=== PATIENT | male | born 1960 | race Caucasian/White ===

== ENCOUNTER 2017-11-23 15:15 | Outpatient (RCR) | payer BC, SELFPAY ==
[2017-09-29 14:27] VITALS: BMI 32.5
[2017-11-23 08:26] VITALS: BP 156/76; BP 160/74
--- NOTE | 2017-11-23 08:27 | CR.ITP_ITS ---
Exercise - Initial Assessment - Stages of Change Stages of Change:: Action - Exercise Prescription Mode:: Treadmill, Rower, Airdyne, NuStep Angina with exercise?: Yes Target Heart Rate:: 121-129 - Hypertension Do any of the following apply?: Yes - Intervention Home Exercise/Activity Goal:: Moderate Exercise 30 min/day x 5 days/wk - Education Goals:: Warm-up, RPE REJI Scale, S/S, Safe Exercise, Self-Monitoring - Exercise Program Goals Exercise Program Goals: Aerobic Activity >30 min Exercise - 30-day Assessment - Visit Date of Eval: 11/23/17 Session #:: 7 - Stages of Change Stages of Change:: Action - Exercise Prescription Mode:: Treadmill, Rower, Airdyne, NuStep Frequency (x/week): 3 - Intensity limited by knee discomfort Duration:: 30 METs - Progression: 0.5-1 MET as tolerated: 4.7 Target Heart Rate:: 139-137 Max HR 80 - Hypertension Resting Blood Pressure:: 156/76 Peak Exercise Blood Pressure:: 160/74 Medication Changes:: No - Intervention Home Exercise/Activity Goal:: Moderate Exercise 30 min/day x 5 days/wk - Education Goals:: Warm-up, RPE REJI Scale, S/S, Safe Exercise, Self-Monitoring - Exercise Program Goals Exercise Program Goals: Aerobic Activity >30 min Exercise - Final/Discharge - Hypertension Do any of the following apply?: Yes Nutrition - Initial Assessment - Program Goals Nutrition Program Goals: LDL <70. Total Cholesterol <200. HDL >45. Triglycerides <150. HgbA1C <7%. BMI <25 - Stages of Change Stages of Change:: Action - Diabetes Diabetes:: No Non-Insulin Dependent?: Yes - Weight Management Weight Goal (kg):: 240 kg Body Fat %:: 32.5 Total Score:: 2 - Intervention Referral to dietitian:: Yes Referral to Diabetic Clinic:: Yes Will attend diet classes:: Yes - Education Gave educational materials for:: Signs & symptoms of hypoglycemia, Signs & symptoms of hyperglycemia, Relate diabetes to coronary artery disease, Healthy eating Nutrition - 30-Day Assessment - Program Goals Nutrition Program Goals: LDL <70. Total Cholesterol <200. HDL >45. Triglycerides <150. HgbA1C <7%. BMI <25 - Visit Date of Eval: 11/23/17 - Stages of Change Stages of Change:: Action - Lipids Has the patient seen the dietitian?: No - Diabetes Diabetes:: No Insulin: No Non-Insulin Dependent?: Yes - Weight Management Weight:: 119.748 kg - down 3 pounds Weight Goal (kg):: 240 kg - Intervention Referral to dietitian:: Yes Referral to Diabetic Clinic:: Yes Will attend diet classes:: Yes - Education Attended class for:: Signs & symptoms of hypoglycemia, Signs & symptoms of hyperglycemia, Relate diabetes to coronary artery disease, Healthy eating Nutrition - 60-Day Assessment - Program Goals Nutrition Program Goals: LDL <70. Total Cholesterol <200. HDL >45. Triglycerides <150. HgbA1C <7%. BMI <25 - Diabetes Diabetes:: No Insulin: No Non-Insulin Dependent?: Yes - Weight Management Weight Goal (kg):: 240 kg - Intervention Referral to dietitian:: Yes Referral to Diabetic Clinic:: Yes Will attend diet classes:: Yes - Education Attended class for:: Signs & symptoms of hypoglycemia, Signs & symptoms of hyperglycemia, Relate diabetes to coronary artery disease, Healthy eating Nutrition - 90-Day Assessment - Program Goals Nutrition Program Goals: LDL <70. Total Cholesterol <200. HDL >45. Triglycerides <150. HgbA1C <7%. BMI <25 - Diabetes Diabetes:: No Insulin: No Non-Insulin Dependent?: Yes - Weight Management Weight Goal (kg):: 240 kg - Intervention Referral to dietitian:: Yes Referral to Diabetic Clinic:: Yes Will attend diet classes:: Yes - Education Attended class for:: Signs & symptoms of hypoglycemia, Signs & symptoms of hyperglycemia, Relate diabetes to coronary artery disease, Healthy eating Nutrition - Final Assessment - Program Goals Nutrition Program Goals: LDL <70. Total Cholesterol <200. HDL >45. Triglycerides <150. HgbA1C <7%. BMI <25 - Diabetes Diabetes:: No Insulin: No Non-Insulin Dependent?: Yes - Weight Management Weight Goal (kg):: 240 kg Body Fat %:: 32.5 Total Score:: 2 - Intervention Referral to dietitian:: Yes Referral to Diabetic Clinic:: Yes Will attend diet classes:: Yes Tobacco - Initial Assessment - Program Goals Tobacco Program Goals: Complete smoking cessation. Attend education classes. Improve Knowledge Test score - Stage of Change Stages of Change:: Action - Learning Barriers Learning Barriers: Vision, Cognitive Total Score:: 8 - Family Support Do you have family support?: No - Tobacco Use Tobacco Use: Cigarettes How long ago did you quit using tobacco products?: Less than 6 months ago How many cigarettes do you smoke per day?: 2 - Quit at time of NSTEMI Years Smokin Do you use smokeless tobacco?: No - Intervention Smoking Cessation Referral:: Yes Individual Education/Counseling:: No Education Schedule Given:: Yes - Education Gave educational material for:: Tobacco triggers, Coronary artery disease, Risk factors, Sexuality, Medical compliance, Cardiac A&P, Angina signs & symptoms Tobacco - 30-Day Assessment - Program Goals Tobacco Program Goals: Complete smoking cessation. Attend education classes. Improve Knowledge Test score - Stage of Change Stages of Change:: Action - Learning Barriers Learning Barriers: Participates in education - Family Support Do you have family support?: No - Tobacco Use Tobacco Use: Cigarettes How many cigarettes do you smoke per day?: 2 - Quit at time of NSTEMI Do you use smokeless tobacco?: No - Intervention Smoking Cessation Referral:: Yes - Could use emotional support to maintain smoking cessation/chewing Individual Education/Counseling:: No Education Schedule Given:: Yes - Education Attended class for:: Tobacco triggers, Coronary artery disease, Risk factors, Sexuality, Medical compliance, Cardiac A&P, Angina signs & symptoms Tobacco - 60-Day Assessment - Program Goals Tobacco Program Goals: Complete smoking cessation. Attend education classes. Improve Knowledge Test score - Family Support Do you have family support?: No - Tobacco Use How many cigarettes do you smoke per day?: 2 - Quit at time of NSTEMI Do you use smokeless tobacco?: No - Intervention Smoking Cessation Referral:: Yes Individual Education/Counseling:: No Education Schedule Given:: Yes - Education Attended class for:: Tobacco triggers, Coronary artery disease, Risk factors, Sexuality, Medical compliance, Cardiac A&P, Angina signs & symptoms Tobacco - 90-Day Assessment - Program Goals Tobacco Program Goals: Complete smoking cessation. Attend education classes. Improve Knowledge Test score - Family Support Do you have family support?: No - Tobacco Use How many cigarettes do you smoke per day?: 2 - Quit at time of NSTEMI Do you use smokeless tobacco?: No - Intervention Smoking Cessation Referral:: Yes Individual Education/Counseling:: No Education Schedule Given:: Yes - Education Attended class for:: Tobacco triggers, Coronary artery disease, Risk factors, Sexuality, Medical compliance, Cardiac A&P, Angina signs & symptoms Tobacco - Final Assessment - Program Goals Tobacco Program Goals: Complete smoking cessation. Attend education classes. Improve Knowledge Test score - Learning Barriers Cardiac Knowledge Test Score:: 8 - Family Support Do you have family support?: No - Tobacco Use How many cigarettes do you smoke per day?: 2 - Quit at time of NSTEMI Do you use smokeless tobacco?: No - Intervention Smoking Cessation Referral:: Yes Individual Education/Counseling:: No Education Schedule Given:: Yes Psychosocial - Initial Assess - Target Goals Target Goals: Assess presence or absence of depression. Using a valid screening tool, maximizes coping skills. Positive support system - Stages of Change Stages of Change:: Action - Psychosocial Test Tool Used:: HANDS Depression Questionnaire Self-Efficacy Score:: 5 - Intervention PS - Interventions: Yes Attend Stress Management Classes, No Referral to Mental Health, No Referral to [facility] Case Management, No Referral to Physician, No Uses Stress Management Skills - Education Gave educational materials for:: Coping techniques, Signs & symptoms of depression, Stress management, Relaxation techniques - Patient/Program Goal Preventative Medication(s):: Aspirin, BRODIE inhibitor, Clopidogrel, Beta hardik, Statin/lipid - Assistive Devices Assistive Devices:: None Fall Risk Assessed:: Yes Psychosocial - 30-Day Assess - Target Goals Target Goals: Assess presence or absence of depression. Using a valid screening tool, maximizes coping skills. Positive support system - Stages of Change Stages of Change:: Action - Psychosocial Test Tool Used:: HANDS Depression Questionnaire Self-Efficacy Score:: 5 - Intervention PS - Interventions: Yes Attend Stress Management Classes, No Referral to Mental Health, No Referral to [facility] Case Management, No Referral to Physician, No Uses Stress Management Skills - Education Attended classes for:: Coping techniques, Signs & symptoms of depression, Stress management, Relaxation techniques - Patient/Program Goal Preventative Medication(s):: Aspirin, BRODIE inhibitor, Clopidogrel, Beta hardik, Statin/lipid - Assistive Devices Assistive Devices:: None Fall Risk Assessed:: Yes Psychosocial - 60-Day Assess - Target Goals Target Goals: Assess presence or absence of depression. Using a valid screening tool, maximizes coping skills. Positive support system - Psychosocial Test Tool Used:: HANDS Depression Questionnaire Self-Efficacy Score:: 5 - Education Attended classes for:: Coping techniques, Signs & symptoms of depression, Stress management, Relaxation techniques - Patient/Program Goal Preventative Medication(s):: Aspirin, BRODIE inhibitor, Clopidogrel, Beta hardik, Statin/lipid - Assistive Devices Assistive Devices:: None Fall Risk Assessed:: Yes Psychosocial - 90-Day Assess - Target Goals Target Goals: Assess presence or absence of depression. Using a valid screening tool, maximizes coping skills. Positive support system - Psychosocial Test Tool Used:: HANDS Depression Questionnaire Self-Efficacy Score:: 5 - Education Attended classes for:: Coping techniques, Signs & symptoms of depression, Stress management, Relaxation techniques - Patient/Program Goal Preventative Medication(s):: Aspirin, BRODIE inhibitor, Clopidogrel, Beta hardik, Statin/lipid - Assistive Devices Assistive Devices:: None Fall Risk Assessed:: Yes Psychosocial - Final Assessmen - Target Goals Target Goals: Assess presence or absence of depression. Using a valid screening tool, maximizes coping skills. Positive support system - Psychosocial Test Tool Used:: HANDS Depression Questionnaire Self-Efficacy Score:: 5 - Patient/Program Goal Preventative Medication(s):: Aspirin, BRODIE inhibitor, Clopidogrel, Beta hardik, Statin/lipid - Assistive Devices Assistive Devices:: None Fall Risk Assessed:: Yes Patient Health Questionnaire 30-Day Re-eval Assessment 1. Little interest or pleasure in doing things: Several days 2. Feeling down, depressed, or hopeless: Several days 3. Trouble falling or staying asleep, or sleeping too much: More than half the days 4. Feeling tired or having little energy: Several days 5. Poor appetite or overeating: Several days 6. Feeling bad about yourself -- or that you are a failure or have let yourself or your family down: Several days 7. Trouble concentrating on things, such as reading the newspaper or watching television: Not at all 8. Moving or speaking so slowly that other people could have noticed. Or the opposite - being so fidgety or restless that you have been moving around a lot more than usual: Not at all 9. Thoughts that you would be better off , or of hurting yourself in some way: Not at all Total Score: 7 Self-Efficacy 30-Day Re-eval Assessment We would like to know how confident you are in doing certain activities. Please select your confidence level for:: Select your confidence level for the following using the scale 1-10 where 1 is not at all confident and 10 is totally confident. Your score is the average of all 6 responses. Fatigue: How confident are you that you can keep the fatigue caused by your disease from interfering with the things you want to do? Select Number: 5 Physical Discomfort or Pain: How confident are you that you can keep the physical discomfort or pain of your disease from interfering with the things you want to do? Select Number: 5 Emotional Distress: How confident are you that you can keep the emotional distress caused by your disease from interfering with the things you want to do? Select Number: 5 Other Symptoms or Health Problems: How confident are you that you can keep other symptoms or health problems from interfering with the things you want to do? Select Number: 6 Different Tasks and Activities: How confident are you that you can do the different tasks and activities needed to manage your health condition so as to reduce your need to see a doctor? Select Number: 8 Medication: How confident are you that you can do things other than just taking medication to reduce how much your illness affects your everyday life? Select Number: 8 Total Score:: 6
== END 2017-11-23 23:59 ==
LOC: CR 15:15
PROVIDERS: Family Provider Family Medicine; PCP Family Medicine; Visit Provider Internal Medicine Cardiovascular Disease
DX: Z95.5 Presence of coronary angioplasty implant and graft (principal); I25.118 Atherosclerotic heart disease of native coronary artery with other forms of angina pectoris; I47.2 Ventricular tachycardia; R07.9 Chest pain, unspecified
CPT/HCPCS: 93798

== ENCOUNTER 2017-12-05 15:15 | Outpatient (RCR) | payer BC, SELFPAY ==
[2017-09-29 14:27] VITALS: BMI 32.5
[2017-09-30 10:00] VITALS: BP 159/78
[2017-11-01 11:27] VITALS: BP 138/82; BMI 33.0
[2017-11-24 01:03] VITALS: BP 156/76; BP 160/74
== END 2017-12-21 23:59 ==
LOC: CR 15:15
PROVIDERS: Family Provider Family Medicine; PCP Family Medicine; Visit Provider Internal Medicine Cardiovascular Disease
DX: Z95.5 Presence of coronary angioplasty implant and graft (principal); I25.118 Atherosclerotic heart disease of native coronary artery with other forms of angina pectoris; I47.2 Ventricular tachycardia; R07.9 Chest pain, unspecified
CPT/HCPCS: 93798

== ENCOUNTER → 2018-02-09 14:49 | Outpatient (CLI) | payer BC, SELFPAY ==
[2017-09-29 14:27] VITALS: BMI 32.5
--- NOTE | 2018-02-09 14:50 | ECHOCS_ITS ---
Reason For Study: CAD/ASHD Procedure This was a 2D Doppler, Color Flow transthoracic echocardiogram. Exam performed in department. Left Ventricle Moderately dilated left ventricle. The estimated ejection fraction is 45 %. Septal motion consistent with IVCD. Normal diastology for age. There are regional wall motion abnormalities as specified. Lateral-Basal: Mildly hypokinetic. Posterior-Basal: Mildly hypokinetic. Right Ventricle Moderately dilated right ventricle. Mild global right ventricular systolic dysfunction. Atria The left atrium is moderately enlarged. Normal right atrium. Mitral Valve The mitral valve is structurally normal. No prolapse or stenosis seen. Tricuspid Valve Normal tricuspid valve. Trivial tricuspid valve insufficiency. Right ventricular systolic pressure estimated to be 19 mmHg. Aortic Valve Normal aortic valve. Trisinus/trileaflet aortic valve. Pulmonic Valve The pulmonic valve is not well visualized. Great Vessels Normal aortic root. Normal arch. Normal inferior vena cava. Inferior vena cava collapse with sniff. Pericardium/Pleural No pericardial effusion. Medication 22 gauge I.V. with prn adaptor inserted into right arm. Diluted definity 3ml given slow IV push to enhance endocardial definition. MMode/2D Measurements & Calculations LVIDd: 6.3 cm IVSd: 1.3 cm Ao root diam: 4.0 cm LVIDs: 5.1 cm LVPWd: 1.2 cm RVDd: 4.6 cm FS: 19.3 % LAV(MOD-bp): 75.1 ml LA A4 area: 21.7 cm2 RA A4 area: 14.6 cm2 LAV(MOD-bp) Indexed: 30.1 ml/m2 LAV(MOD-sp2): 81.4 ml LAV(MOD-sp4): 66.6 ml Time Measurements MV dec time: 0.25 sec Doppler Measurements & Calculations MV E max angelo: 71.2 cm/sec Lat Peak E' Angelo: 10.7 cm/sec Med Peak E' Angelo: 5.4 cm/sec MV A max angelo: 64.5 cm/sec E/E' lat: 6.7 E/E' med: 13.1 MV E/A: 1.1 Ao V2 max: 154.0 cm/sec LV V1 max: 95.4 cm/sec PA V2 max: 111.9 cm/sec Ao max P.5 mmHg LV V1 max P.6 mmHg TR max angelo: 185.8 cm/sec TR max P.8 mmHg Interpretation Summary Moderately dilated left ventricle. There are regional wall motion abnormalities as specified. The estimated ejection fraction is 45 %. Normal diastology for age. Moderately dilated right ventricle. The left atrium is moderately enlarged. Trivial tricuspid valve insufficiency. Right ventricular systolic pressure estimated to be 19 mmHg. Compared to echo report dated 09/14/2017, no appreciable changes noted. The study was technically difficult. Contrast injection was performed. Ordering Physician: Reagan Mendoza/Rom Vora Referring Physician: MILE OVALLE Performed By: Stefania Lisa RDCS
== END ==
LOC: CVS 14:49
PROVIDERS: Family Provider Family Medicine; PCP Family Medicine; Visit Provider Nurse Practitioner Family
DX: I25.118 Atherosclerotic heart disease of native coronary artery with other forms of angina pectoris (principal)
CPT/HCPCS: 93306; Q9957; A4216; C8929

== ENCOUNTER → 2018-07-28 15:57 | Outpatient (CLI) | payer BC, SELFPAY ==
[2017-09-29 14:27] VITALS: BMI 32.5
[2018-07-28 17:41] LABS: Absolute Neutrophil Count 5.5 X10^3/uL (2.0-7.7); Basophil# 0.03 X10^3/uL; Basophil% 0.3 % (0-1); Eosinophil# 0.25 X10^3/uL; Eosinophils% 2.8 % (0-5); Hematocrit 42.5 % (40-54); Hemoglobin 14.4 g/dl (13.0-16.5); Lymphocyte % 24.6 % (19-41); Mean Corp Hgb Conc 33.9 g/gl (32-36); Mean Corpuscular Hgb 31.9 pg (27.0-32.0); Mean Corpuscular Volume 94.2 fL (80-94); Mean Platelet Vol. 11.7 fl (6.2-12.0); Monocyte# 0.94 X10^3/uL; Monocyte% 10.5 % (0-10); Neutrophil # 5.52 X10^3/uL (2.7-7.7); Neutrophil % 61.6 % (47-70); Platelet Count 200 K/mm3 (150-450); RBC Distribution Width CV 13.5 % (11.6-14.6); RBC Distribution Width SD 44.9 fl (35.1-43.9); Red Blood Count 4.51 M/mm3 (4.6-6.2)
[2018-07-28 17:49] LABS: POSITIVE COUNT NO; POSITIVE DIFFERENTIAL NO; POSITIVE MORPHOLOGY NO
[2018-07-28 18:03] LABS: ALB/GLOB Ratio 1.1 RATIO (0.9-2.4); AST(SGOT) 10 U/L (15-37); Alanine Aminotransfer ALT/SGPT 26 U/L (16-61); Albumin, Serum 3.7 g/dL (3.2-5.0); Alkaline Phosphatase 112 U/L (45-117); Anion Gap 8 (5-15); BUN 17 mg/dL (7-18); BUN/Creat Ratio 22.6 RATIO (10-20); CPK Total, Creatine Kinase 142 U/L (39-308); Calcium,Total 8.6 mg/dL (8.5-10.1); Chloride 106 mmol/L (98-107); Cholesterol 113 mg/dL (200); Creatinine, Serum 0.75 mg/dL (0.70-1.30); EST Glomerular Filtration Rate 113 mL/min (>60); Est Glom Filt Rate - Afr Amer 137 mL/min (>60); Ferritin 144 ng/mL (26-388); Globulin 3.5 g/dL (2.2-4.2); Glucose 86 mg/dL (74-106); High Density Lipoprotein 35 mg/dL; Potassium 3.8 mmol/L (3.5-5.1); Protein, Total 7.2 g/dL (6.4-8.2); Sodium Level 141 mmol/L (136-145); Thyroid Stim Hormone (TSH) 2.73 uIU/mL (0.358-3.74); Triglycerides 108 mg/dL; Very Low Density Lipoprotein 22 mg/dL (5-40)
[2018-07-28 18:49] LABS: Hemoglobin A1c 6.4 % (4.2-6.3)
== END ==
PROVIDERS: Family Provider Family Medicine; PCP Family Medicine; Visit Provider Family Medicine
DX: I10 Essential (primary) hypertension (principal); R25.2 Cramp and spasm; R73.02 Impaired glucose tolerance (oral); E78.5 Hyperlipidemia, unspecified
CPT/HCPCS: 36415; 80053; 80061; 81001; 82550; 82728; 83036; 83735; 84443; 85025

== ENCOUNTER 2018-09-17 07:00 | Observation (INO) | payer BC, SELFPAY ==
[2017-09-29 14:27] VITALS: BMI 32.5
[2018-09-17] VITALS (12 sets, daily range): BP systolic 126–161; BP diastolic 75–92; PULSE 56–90; RESP 13–22; TEMP 36.4–36.9; O2SAT 96–98; BMI 30.8; BMI 30.1
--- NOTE | 2018-09-17 07:14 | EKG12_ITS ---
Test Reason : CHEST PAIN Blood Pressure : / mmHG Vent. Rate : 090 BPM Atrial Rate : 090 BPM P-R Int : 250 ms QRS Dur : 138 ms QT Int : 362 ms P-R-T Axes : 059 -61 093 degrees QTc Int : 442 ms Sinus rhythm with 1st degree A-V block with frequent Premature ventricular complexes Left axis deviation Left ventricular hypertrophy with QRS widening and repolarization abnormality Abnormal ECG Confirmed by NAKIA MOREAU, LAURE ([id number]), features editor PAVEL GUO ([id number]) on 09/19/2018 4:17:36 PM Referred By: EMILY Confirmed By:LAURE YEE MD
--- NOTE | 2018-09-17 07:22 | RAD_ITS ---
STUDY: X-RAY CHEST REASON FOR EXAM: Male, 58 years old. Chest pain. TECHNIQUE: 2 AP portable views of the chest were obtained. COMPARISON: 09/13/2017. FINDINGS: There is hyperinflation of the lungs consistent with chronic obstructive lung disease (COPD). There is no demonstrated pleural abnormality. Normal size heart. Normal mediastinum and barron. Normal visualized pulmonary arteries. Normal visualized aortic arch and descending thoracic aorta. There are diffuse degenerative changes of the visualized thoracic spine. Normal visualized ribs, clavicles, and shoulders. There is no demonstrated abnormality of the visualized soft tissue structures of the upper abdomen. RAD/Chest 1 View (Portable) IMPRESSION: Suggestion of COPD. No evidence for acute cardiopulmonary pathology. Electronically Signed: Laron Orosco MD at 7:37 EST , Service support ,
[2018-09-17 07:33] LABS: Basophil# 0.03 X10^3/uL; Basophil% 0.3 % (0-1); Eosinophil# 0.27 X10^3/uL; Eosinophils% 3.1 % (0-5); Hematocrit 44.1 % (40-54); Hemoglobin 14.7 g/dl (13.0-16.5); Lymphocyte % 19.2 % (19-41); Mean Corp Hgb Conc 33.3 g/gl (32-36); Mean Corpuscular Hgb 31.2 pg (27.0-32.0); Mean Corpuscular Volume 93.6 fL (80-94); Mean Platelet Vol. 11.1 fl (6.2-12.0); Monocyte# 0.88 X10^3/uL; Monocyte% 9.9 % (0-10); Neutrophil # 5.96 X10^3/uL (2.7-7.7); Neutrophil % 67.4 % (47-70); Platelet Count 190 K/mm3 (150-450); RBC Distribution Width CV 13.3 % (11.6-14.6); RBC Distribution Width SD 45.9 fl (35.1-43.9); Red Blood Count 4.71 M/mm3 (4.6-6.2); White Blood Count 8.9 K/mm3 (4.4-11.0)
[2018-09-17 07:35] LABS: POSITIVE COUNT NO; POSITIVE DIFFERENTIAL NO; POSITIVE MORPHOLOGY NO
[2018-09-17] MEDS: Aspirin 81 MG TAB.CHEW 324 MG PO (07:49)
[2018-09-17 07:53] LABS: Anion Gap 8 (5-15); BUN 14 mg/dL (7-18); BUN/Creat Ratio 19.3 RATIO (10-20); Calcium,Total 8.4 mg/dL (8.5-10.1); Chloride 110 mmol/L (98-107); Creatinine, Serum 0.73 mg/dL (0.70-1.30); EST Glomerular Filtration Rate 117 mL/min (>60); Est Glom Filt Rate - Afr Amer 142 mL/min (>60); Estimated Creatinine Clearance 137.31 ml/min; Glucose 161 mg/dL (74-106); Magnesium 1.9 mg/dL (1.6-2.6); Potassium 3.8 mmol/L (3.5-5.1); Sodium Level 141 mmol/L (136-145)
--- NOTE | 2018-09-17 08:11 | EKG12_ITS ---
Test Reason : CHEST PAIN Blood Pressure : / mmHG Vent. Rate : 081 BPM Atrial Rate : 125 BPM P-R Int : 000 ms QRS Dur : 142 ms QT Int : 392 ms P-R-T Axes : 000 -59 096 degrees QTc Int : 455 ms Atrial fibrillation with premature ventricular or aberrantly conducted complexes Left axis deviation Left ventricular hypertrophy with QRS widening T wave abnormality, consider lateral ischemia Abnormal ECG Confirmed by NAKIA MOREAU, LAURE ([id number]), science editor PAVEL GUO ([id number]) on 09/19/2018 4:17:52 PM Referred By: EMILY Confirmed By:LAURE YEE MD
--- NOTE | 2018-09-17 08:21 | NURSING ---
DR CHAPA FOR DR DIAZ
--- NOTE | 2018-09-17 08:24 | ECHOCS_ITS ---
Reason For Study: Chest Pain Procedure This was a 2D Doppler, Color Flow transthoracic echocardiogram. The study was technically difficult. Contrast injection was performed. Exam performed portable in patient room. Left Ventricle Normal LV size. The estimated ejection fraction is 45 %. No evidence for diastolic dysfunction. There is mild global hypokinesis of the left ventricle. [place] : Hypokinetic. Right Ventricle Normal RV size. Normal systolic function. Atria The left atrium is moderately enlarged. Normal right atrium. Mitral Valve Normal mitral valve. Tricuspid Valve Normal tricuspid valve. Aortic Valve The aortic valve is not well visualized. Pulmonic Valve Normal pulmonic valve. Great Vessels Normal aortic root. Pericardium/Pleural No pericardial effusion. Medication Diluted definity 6ml given slow IV push to enhance endocardial definition. MMode/2D Measurements & Calculations LVIDd: 5.7 cm IVSd: 1.4 cm Ao root diam: 3.7 cm LVIDs: 5.3 cm LVPWd: 1.1 cm LA dimension: 4.7 cm FS: 8.3 % LAV(MOD-bp): 114.9 ml LVAd ap4: 55.3 cm2 SV(MOD-sp4): 93.7 ml LAV(MOD-bp) Indexed: 46.4 ml/m2 EDV(MOD-sp4): 249.0 ml LAV(MOD-sp2): 90.2 ml EDV(sp4-el): 260.8 ml LAV(MOD-sp4): 133.8 ml LVAs ap4: 39.8 cm2 ESV(MOD-sp4): 155.2 ml ESV(sp4-el): 161.6 ml EF(MOD-sp4): 37.6 % EF(sp4-el): 38.0 % SV(sp4-el): 99.2 ml LA A4 area: 33.3 cm2 RA A4 area: 17.3 cm2 Time Measurements MV dec time: 0.28 sec Doppler Measurements & Calculations MV E max angelo: 69.4 cm/sec Lat Peak E' Angelo: 6.3 cm/sec Med Peak E' Angelo: 4.8 cm/sec MV A max angelo: 50.1 cm/sec E/E' lat: 11.0 E/E' med: 14.3 MV E/A: 1.4 MV V2 max: 88.6 cm/sec Ao V2 max: 136.8 cm/sec LV V1 max: 104.2 cm/sec MV max P.1 mmHg Ao max P.5 mmHg LV V1 max P.3 mmHg MV V2 mean: 55.1 cm/sec Ao V2 mean: 93.3 cm/sec LV V1 mean P.8 mmHg MV mean P.4 mmHg Ao mean P.9 mmHg LV V1 mean: 59.6 cm/sec MV V2 VTI: 25.8 cm Ao V2 VTI: 27.2 cm LV V1 VTI: 20.7 cm PA V2 max: 106.9 cm/sec Interpretation Summary Normal LV size. The estimated ejection fraction is 45 %. No evidence for diastolic dysfunction. The study was technically limited. The study was technically difficult. Ordering Physician: Rangel Snider Referring Physician: Reagan Soto Performed By: Ugo Parker RCS
--- NOTE | 2018-09-17 08:38 | ED.VISSUMM ---
- ER Visit Summary Date of Service: 09/17/18 Chief Complaint: Chest pain History of Present Illness: The patient is a 58 M who presents with chest pain. It began about 2 hours ago. He states that when he woke up he felt jittery and had chest tightness and became nauseated and diaphoretic. He had palpitations and heart racing. He states that this feels similar to when he had his heart attack 1 year ago. Physical Examination: Afebrile blood pressure 161/85 Moist mucous membranes Heart regular rate and rhythm Lungs clear Abdomen soft nontender Extremities nontender Alert Test Results: EKG shows sinus rhythm at a rate of 90. There is significant ectopy with multiple PVCs. Repeat EKG shows atrial flutter at a rate of 81 there are T wave inversions in 1 and aVL. Labs are unremarkable normal magnesium normal troponin. Chest x-ray shows findings suggestive of COPD no acute findings. Emergency Department Course and Treatment: Patient was given aspirin. His pain is actually resolved before presentation here. He has not had recurrence of pain. However given his history he does need serial enzymes repeat EKGs likely cardiology consultation. He was given Lovenox for new atrial flutter. He was discussed with the hospitalist and admitted. Treatment Plan: [] Disposition: Admit Impression: Chest pain Atrial flutter This note was generated with [email or web address] dictation software. It may contain incorrect words, spelling, and punctuation that were not noted in review of the chart prior to signing ED Disposition - Plan for ED Patient: Chief Complaint: Chest Pain Referrals: NOT,DEFINED [Primary Care Provider] -
--- NOTE | 2018-09-17 08:40 | NURSING ---
PCU CP, A[facility] FLUTTER KITJ[facility]
[2018-09-17 08:56] LABS: D-Dimer Quantitative (DVT/PE) 1.42 FEU/ug/m (0.27-0.49); Thyroid Stim Hormone (TSH) 2.15 uIU/mL (0.358-3.74)
[2018-09-17] MEDS: Enoxaparin 120 MG/0.8 ML Syringe SC ×2 (09:07→21:30)
--- NOTE | 2018-09-17 09:08 | PCM.HP.STD ---
Problem List (1) Shortness of breath Status: Chronic (2) Bradycardia Status: Chronic (3) H/O lumbar discectomy Status: Chronic (4) History of cystoscopy Status: Chronic (5) Tobacco abuse Status: Chronic (6) Bladder cancer Status: Chronic (7) History of coronary artery stent placement Status: Chronic Comment: BERT to LCX 08/2017; staged complex PCI with BERT to PDA and RCA 09/2017; (8) Atherosclerotic heart disease of [place] coronary artery with other forms of angina pectoris Status: Chronic Comment: BERT to LCX 08/2017; staged complex PCI with BERT to PDA and RCA 09/2017; (9) Sustained ventricular tachycardia Status: Acute Comment: S/P cardioversion 08/2017 in ED; (10) Unstable angina Status: Acute (11) Chest pain Status: Acute Qualifiers: Chest pain type: chest pain due to myocardial ischemia Ischemic chest pain type: unstable angina pectoris Qualified Code(s): I20.0 - Unstable angina History of Present Illness Date of Admission: 09/17/18 Chief Complaint: Chest discomfort The patient is a 58 year old M with past medical history significant for CAD with previous coronary artery disease status post stenting to his mid left circumflex in August 2017 and a staged PCI to his RCA and PDA in September 2017, history of wide complex tachycardia who presented with chest pain as well as palpitations. Patient symptoms started on the morning of his admission. Chest pain was described as discomfort located in the mid sternal region. He also did experience palpitations checked his pulse which is greater than 190. Patient also did complain of shortness of breath as well as breaking out into cold sweat. Patient states his presentation was similar to when he had his heart attack almost a year ago subsequently presented to the emergency department. EKG demonstrated sinus rhythm with multiple PVCs. Initial set of cardiac enzymes came back negative his d-dimer was elevated CTA of the chest ordered prior to patient be admitted to a monitored Past Medical History Past Medical History (Chronic Problems): Chronic Problems (Last Reviewed 09/17/18 @ 09:31 by Rangel Snider MD) Shortness of breath (Chronic) Bradycardia (Chronic) H/O lumbar discectomy (Chronic) History of cystoscopy (Chronic) Tobacco abuse (Chronic) Bladder cancer (Chronic) History of coronary artery stent placement (Chronic) BERT to LCX 08/2017; staged complex PCI with BERT to PDA and RCA 09/2017; Atherosclerotic heart disease of [place] coronary artery with other forms of angina pectoris (Chronic) BERT to LCX 08/2017; staged complex PCI with BERT to PDA and RCA 09/2017; Medical History: Medical History (Last Reviewed 09/17/18 @ 09:31 by Rangel Snider MD) Shortness of breath (Chronic) R06.02 Bradycardia (Chronic) R00.1 Tobacco abuse (Chronic) Z72.0 Bladder cancer (Chronic) C67.9 Atherosclerotic heart disease of [place] coronary artery with other forms of angina pectoris (Chronic) I25.118 BERT to LCX 08/2017; staged complex PCI with BERT to PDA and RCA 09/2017; Sustained ventricular tachycardia (Acute) I47.2 S/P cardioversion 08/2017 in ED; Unstable angina (Acute) Chest pain (Acute) R07.9 NSTEMI (non-ST elevated myocardial infarction) I21.4 Allergies No Known Allergies Allergy (Verified 09/17/18 07:07) Home Medications: Ambulatory Orders Medication Instructions Recorded Aspirin E.C. [Ecotrin] 81 mg PO DAILY@0800 tab 09/15/17 carvedilol 6.25 mg tablet 6.25 mg PO BID #60 tab 08/28/18 clopidogrel 75 mg tablet 75 mg PO DAILY #30 tab 08/28/18 lisinopril 40 mg tablet 40 mg PO DAILY #90 tab 09/12/18 Atorvastatin Calcium [Lipitor] 80 mg PO QHS 09/17/18 Surgical History: Surgical History (Last Reviewed 09/17/18 @ 09:31 by Rangel Snider MD) H/O lumbar discectomy (Chronic) Z98.890 History of cystoscopy (Chronic) Z98.890 History of coronary artery stent placement (Chronic) Z95.5 BERT to LCX 08/2017; staged complex PCI with BERT to PDA and RCA 09/2017; Surgical History: - - Cystoscopy and treatment for bladder cancer, lumbar discectomy Smoking Status: Former smoker - *Family History Maternal Family History: Family History (Last Reviewed 09/17/18 @ 09:31 by Rangel Snider MD) Mother CVA (cerebral vascular accident) Father Diabetes Heart disease History Items: Stroke Paternal Family History: Family History (Last Reviewed 09/17/18 @ 09:31 by Rangel Snider MD) Mother CVA (cerebral vascular accident) Father Diabetes Heart disease History Items: Diabetes, Heart Disease Review of Systems Constitutional: Denies: Anorexia, Chills, Fever, Night Sweats, Weight Change HEENT: Denies: Head Aches, Sinus Congestion, Sinus Drainage Cardiovascular: Reports: Chest Pain Respiratory: Reports: Shortness of Breath. Denies: Shortness of breath at rest, Shortness of breath upon exertion, Sputum production Gastrointestinal: Denies: Abdominal Pain, Hematemesis, Hematochezia, Nausea, Melena, Vomiting Genitourinary: Denies: Dysuria, Frequency, Hematuria, Urgency Musculoskeletal: Denies: Joint Pain, Joint Tenderness Skin: Denies: Rash Neurological: Denies: Focal weakness, Numbness, Tingling Psychiatric: Denies: Homicidal Ideations, Suicidal Ideations Hematologic/ Lymphatic: Denies: Easy Bruising, Easy Bleeding VTE Information - Inpt Only VTE Present on Admission: No VTE Mechan Device Prophylaxis: Knee High SUDHEER Hose VTE Pharm Prophylaxis ordered?: Yes Objective: GENERAL: cooperative HEENT: Atraumatic; moist oral mucosa EYES; Anicteric, Normal Conjunctiva NECK; supple, normal thyroid, no distended JVD. RESPIRATORY: Diminished to auscultation bilaterally, CARDIOVASCULAR: Regular S1 S2, no audible murmurs GI: soft, non-tender, normoactive bowel sounds, : No Renal angle tenderness; EXTREMITIES: No edema, no clubbing, no cyanosis. MUSCULOSKELETAL: No Joint Tenderness; no muscle waisting NEURO: Awake; no lateralizing signs. SKIN: No Rash PSYCH; Normal affect - Physical Exam Vital Signs Temp Pulse Resp BP Pulse Ox 97.5 F L 79 17 141/90 H 97 09/17/18 07:01 09/17/18 09:03 09/17/18 09:03 09/17/18 09:03 09/17/18 09:03 Oxygen Flow Rate (L/min) 2 Oxygen Delivery Method Nasal Cannula Weight: 117.934 kg Body Mass Index (BMI) 30.8 Laboratory Tests Past 24 Hrs 09/17/18 09/17/18 09/17/18 07:20 07:20 07:20 WBC 8.9 RBC 4.71 Hgb 14.7 Hct 44.1 MCV 93.6 MCH 31.2 MCHC 33.3 RDW 13.3 RDW Differential 45.9 H Plt Count 190 MPV 11.1 Immature Gran % (Auto) 0.100 Neut % (Auto) 67.4 Lymph % (Auto) 19.2 [place] % (Auto) 9.9 Eos % (Auto) 3.1 Baso % (Auto) 0.3 Absolute Neuts (auto) 6.0 Absolute Lymphs (auto) 1.70 Total Counted Not Reportable D-Dimer Quant (PE/DVT) Sodium 141 Potassium 3.8 Chloride 110 H Carbon Dioxide 23.0 Anion Gap 8 BUN 14 Creatinine 0.73 Estim Creat Clear Calc 137.31 Est GFR (MDRD) Af Amer 142 Est GFR (MDRD) Non-Af 117 BUN/Creatinine Ratio 19.3 Glucose 161 H Calcium 8.4 L Magnesium 1.9 Troponin I 0.016 TSH 2.15 09/17/18 07:20 WBC RBC Hgb Hct MCV MCH MCHC RDW RDW Differential Plt Count MPV Immature Gran % (Auto) Neut % (Auto) Lymph % (Auto) [place] % (Auto) Eos % (Auto) Baso % (Auto) Absolute Neuts (auto) Absolute Lymphs (auto) Total Counted D-Dimer Quant (PE/DVT) 1.42 H* Sodium Potassium Chloride Carbon Dioxide Anion Gap BUN Creatinine Estim Creat Clear Calc Est GFR (MDRD) Af Amer Est GFR (MDRD) Non-Af BUN/Creatinine Ratio Glucose Calcium Magnesium Troponin I TSH Assessment/Plan All Active Problems (Last Reviewed 09/17/18 @ 09:31 by Rangel Snider MD) Sustained ventricular tachycardia (Acute) Unstable angina (Acute) Chest pain (Acute) The patient is a 58 year old M with past medical history significant for CAD with previous coronary artery disease status post stenting to his mid left circumflex in August 2017 and a staged PCI to his RCA and PDA in September 2017, history of wide complex tachycardia who presented with chest pain 1. Chest pain: Patient with known CAD. Patient has been admitted to monitored bed serial cardiac enzymes ordered to rule out [place] with patient being a high risk patient consultation placed to cardiology. Patient was seen in consultation by Dr. Stevens who recommended for patient undergo subsequent evaluation with a nuclear stress test to be performed on 09/18/2018 2. Elevated d-dimer patient was started on therapeutic dose of Lovenox CTA of the chest ordered to rule out PE 3. History of wide-complex tachycardia EKG on admission demonstrated multiple PVCs 4. Hypertension-blood pressure controlled, home medications continued with dose adjustment as needed 5. Previous history of tobacco use 6 History of bladder CA currently in remission 7. DVT prophylaxis on Lovenox Code Visit OBSV E&M: [id number] Initial observation care L3
--- NOTE | 2018-09-17 09:28 | PCM.CONS.C ---
Reason for Consult Date of Consultation: 09/17/18 Reason for Consultation: Chest tightness and feeling jittery History of Present Illness: SHEEBA ZIMMER, is a 58 M who presents to the emergency room today. He said that he woke up and he felt his chest was tight and he was feeling jittery. He felt he was having some irregular heartbeats. He checked his blood pressure and it was noted to be elevated. He presented to the emergency room where he was noted to be having premature ventricular complexes with an elevated blood pressure. Cardiology was called for further evaluation and management. He has a history of coronary artery disease status post stenting to his mid left circumflex in August 2017 and a staged PCI to his RCA and PDA in September 2017. He also has a history of cardiomyopathy, wide-complex tachycardia, daytime somnolence, and frequent PVCs. This particular time,Pt. denies chest, arm, jaw, or neck discomfort. His exercise tolerance is stable. Pt. denies symptoms of CHF, lightheadedness, dizziness, near syncope, or syncopal episodes. Pt. denies edema or claudication issues. Pt. denies orthopnea, PND, fever, chills, blood in urine, blood in stool, or myalgia. Patient completed cardiac rehab and occasionally exercises on his own. Echocardiogram from August 2017 showed 45-50% in stage I diastolic dysfunction. Repeat echo after cardiac rehab and staged angioplasty showed an EF around 45%, normal RVSP he occasionally has palpitations which last less than 30 seconds to a minute, and then spontaneously resolved. Past Medical History Allergies/Adverse Reactions: Allergies No Known Allergies Allergy (Verified 09/17/18 07:07) Home Medications: Ambulatory Orders Medication Instructions Recorded Aspirin E.C. [Ecotrin] 81 mg PO DAILY@0800 tab 09/15/17 carvedilol 6.25 mg tablet 6.25 mg PO BID #60 tab 08/28/18 clopidogrel 75 mg tablet 75 mg PO DAILY #30 tab 08/28/18 lisinopril 40 mg tablet 40 mg PO DAILY #90 tab 09/12/18 Past Medical History (Chronic Problems): Chronic Problems (Last Reviewed 08/28/18 @ 15:32 by Lenora Godinez) Shortness of breath (Chronic) Bradycardia (Chronic) H/O lumbar discectomy (Chronic) History of cystoscopy (Chronic) Tobacco abuse (Chronic) Bladder cancer (Chronic) History of coronary artery stent placement (Chronic) BERT to LCX 08/2017; staged complex PCI with BERT to PDA and RCA 09/2017; Atherosclerotic heart disease of [place] coronary artery with other forms of angina pectoris (Chronic) BERT to LCX 08/2017; staged complex PCI with BERT to PDA and RCA 09/2017; Surgical History: - - Cystoscopy and treatment for bladder cancer, lumbar discectomy - *Family History Maternal Family History: Family History (Last Reviewed 08/28/18 @ 15:32 by Leonra Godinez) Mother CVA (cerebral vascular accident) Father Diabetes Heart disease History Items: Stroke Paternal Family History: Family History (Last Reviewed 08/28/18 @ 15:32 by Lenora Godinez) Mother CVA (cerebral vascular accident) Father Diabetes Heart disease History Items: Diabetes, Heart Disease Smoking Status: Former smoker Alcohol: None Drugs: None Objective: Vital Signs Temp Pulse Resp BP Pulse Ox 97.5 F L 79 17 141/90 H 97 09/17/18 07:01 09/17/18 09:03 09/17/18 09:03 09/17/18 09:03 09/17/18 09:03 Oxygen Flow Rate (L/min) 2 Oxygen Delivery Method Nasal Cannula Weight: 260 lb Body Mass Index (BMI) 30.8 09/17/18 07:20: WBC 8.9, RBC 4.71, Hgb 14.7, Hct 44.1, MCV 93.6, MCH 31.2, MCHC 33.3, RDW 13.3, RDW Differential 45.9 H, Plt Count 190, MPV 11.1, Immature Gran % (Auto) 0.100, Neut % (Auto) 67.4, Lymph % (Auto) 19.2, [place] % (Auto) 9.9, Eos % (Auto) 3.1, Baso % (Auto) 0.3, Absolute Neuts (auto) 6.0, Total Counted Not Reportable 09/17/18 07:20: Sodium 141, Potassium 3.8, Chloride 110 H, Carbon Dioxide 23.0, Anion Gap 8, BUN 14, Creatinine 0.73, Est GFR (MDRD) Af Amer 142, Est GFR (MDRD) Non-Af 117, BUN/Creatinine Ratio 19.3, Glucose 161 H, Calcium 8.4 L, Magnesium 1.9, Troponin I 0.016 09/17/18 07:20: D-Dimer Quant (PE/DVT) 1.42 H* Rhythm: EKG: ECHO: Stress Test: Cardiac Cath: PCI: CT Surgery: Holter monitor: EPS: PPM: CXR: Chest CT Scan: Assessment/Plan 1. Chest discomfort-patient with known coronary artery disease status post angioplasty and stenting of the circumflex artery, and the right coronary artery Patient has mild chest discomfort with elevated blood pressure. The above appears to be somewhat atypical. Recommendation would be to increase his beta-hardik to carvedilol 12.5 mg twice a day Obtain serial cardiac enzymes Rule out a pulmonary process due to his elevated d-dimer If the above is ruled out then will schedule a dobutamine stress echo/Lexiscan to further exclude coronary ischemia 2. Hypertension Patient has uncontrolled hypertension Would recommend increasing the carvedilol for better treatment May consider the addition of hydrochlorothiazide to the regimen 3. Premature ventricular complexes Patient has evidence of previous premature ventricular complexes as well as a mild cardiomyopathy. Estimated ejection fraction is 45% Will continue with beta-hardik and BRODIE inhibitor. 4. Lipidemia Continue with aggressive risk factor modification Thank you for allowing me to participate in the care of your patient. Please don't hesitate to call if any issues arise
--- NOTE | 2018-09-17 09:33 | CON.PCM_ITS ---
Reason for Consult Date of Consultation: 09/17/18 Reason for Consultation: Chest tightness and feeling jittery History of Present Illness: SHEEBA ZIMMER, is a 58 M who presents to the emergency room today. He said that he woke up and he felt his chest was tight and he was feeling jittery. He felt he was having some irregular heartbeats. He checked his blood pressure and it was noted to be elevated. He presented to the emergency room where he was noted to be having premature ventricular complexes with an elevated blood pressure. Cardiology was called for further evaluation and management. He has a history of coronary artery disease status post stenting to his mid left circumflex in August 2017 and a staged PCI to his RCA and PDA in September 2017. He also has a history of cardiomyopathy, wide-complex tachycardia, daytime somnolence, and frequent PVCs. This particular time,Pt. denies chest, arm, jaw, or neck discomfort. His exercise tolerance is stable. Pt. denies symptoms of CHF, lightheadedness, dizziness, near syncope, or syncopal episodes. Pt. denies edema or claudication issues. Pt. denies orthopnea, PND, fever, chills, blood in urine, blood in stool, or myalgia. Patient completed cardiac rehab and occasionally exercises on his own. Echocardiogram from August 2017 showed 45-50% in stage I diastolic dysfunction. Repeat echo after cardiac rehab and staged angioplasty showed an EF around 45%, normal RVSP he occasionally has palpitations which last less than 30 seconds to a minute, and then spontaneously resolved. Past Medical History Allergies/Adverse Reactions: Allergies No Known Allergies Allergy (Verified 09/17/18 07:07) Home Medications: Ambulatory Orders Medication Instructions Recorded Aspirin E.C. [Ecotrin] 81 mg PO DAILY@0800 tab 09/15/17 carvedilol 6.25 mg tablet 6.25 mg PO BID #60 tab 08/28/18 clopidogrel 75 mg tablet 75 mg PO DAILY #30 tab 08/28/18 lisinopril 40 mg tablet 40 mg PO DAILY #90 tab 09/12/18 Past Medical History (Chronic Problems): Chronic Problems (Last Reviewed 08/28/18 @ 15:32 by Lenora Godinez) Shortness of breath (Chronic) Bradycardia (Chronic) H/O lumbar discectomy (Chronic) History of cystoscopy (Chronic) Tobacco abuse (Chronic) Bladder cancer (Chronic) History of coronary artery stent placement (Chronic) BERT to LCX 08/2017; staged complex PCI with BERT to PDA and RCA 09/2017; Atherosclerotic heart disease of [place] coronary artery with other forms of angina pectoris (Chronic) BERT to LCX 08/2017; staged complex PCI with BERT to PDA and RCA 09/2017; Surgical History: - - Cystoscopy and treatment for bladder cancer, lumbar discectomy - *Family History Maternal Family History: Family History (Last Reviewed 08/28/18 @ 15:32 by Lenora Godinez) Mother CVA (cerebral vascular accident) Father Diabetes Heart disease History Items: Stroke Paternal Family History: Family History (Last Reviewed 08/28/18 @ 15:32 by Lenora Godienz) Mother CVA (cerebral vascular accident) Father Diabetes Heart disease History Items: Diabetes, Heart Disease Smoking Status: Former smoker Alcohol: None Drugs: None Objective: Vital Signs Temp Pulse Resp BP Pulse Ox 97.5 F L 79 17 141/90 H 97 09/17/18 07:01 09/17/18 09:03 09/17/18 09:03 09/17/18 09:03 09/17/18 09:03 Oxygen Flow Rate (L/min) 2 Oxygen Delivery Method Nasal Cannula Weight: 260 lb Body Mass Index (BMI) 30.8 09/17/18 07:20: WBC 8.9, RBC 4.71, Hgb 14.7, Hct 44.1, MCV 93.6, MCH 31.2, MCHC 33.3, RDW 13.3, RDW Differential 45.9 H, Plt Count 190, MPV 11.1, Immature Gran % (Auto) 0.100, Neut % (Auto) 67.4, Lymph % (Auto) 19.2, [place] % (Auto) 9.9, Eos % (Auto) 3.1, Baso % (Auto) 0.3, Absolute Neuts (auto) 6.0, Total Counted Not Reportable 09/17/18 07:20: Sodium 141, Potassium 3.8, Chloride 110 H, Carbon Dioxide 23.0, Anion Gap 8, BUN 14, Creatinine 0.73, Est GFR (MDRD) Af Amer 142, Est GFR (MDRD) Non-Af 117, BUN/Creatinine Ratio 19.3, Glucose 161 H, Calcium 8.4 L, Magnesium 1.9, Troponin I 0.016 09/17/18 07:20: D-Dimer Quant (PE/DVT) 1.42 H* Rhythm: EKG: ECHO: Stress Test: Cardiac Cath: PCI: CT Surgery: Holter monitor: EPS: PPM: CXR: Chest CT Scan: Assessment/Plan 1. Chest discomfort-patient with known coronary artery disease status post angioplasty and stenting of the circumflex artery, and the right coronary artery Patient has mild chest discomfort with elevated blood pressure. The above appears to be somewhat atypical. * Recommendation would be to increase his beta-hardik to carvedilol 12.5 mg twice a day * Obtain serial cardiac enzymes * Rule out a pulmonary process due to his elevated d-dimer * If the above is ruled out then will schedule a dobutamine stress echo/Lexiscan to further exclude coronary ischemia * 2. Hypertension * Patient has uncontrolled hypertension * Would recommend increasing the carvedilol for better treatment * May consider the addition of hydrochlorothiazide to the regimen * 3. Premature ventricular complexes * Patient has evidence of previous premature ventricular complexes as well as a mild cardiomyopathy. * Estimated ejection fraction is 45% * Will continue with beta-hardik and BRODIE inhibitor. * 4. Lipidemia * Continue with aggressive risk factor modification * * Thank you for allowing me to participate in the care of your patient. Please don't hesitate to call if any issues arise
--- NOTE | 2018-09-17 11:27 | EKG12_ITS ---
Test Reason : CP ADMISSION PROT Blood Pressure : / mmHG Vent. Rate : 055 BPM Atrial Rate : 055 BPM P-R Int : 272 ms QRS Dur : 132 ms QT Int : 400 ms P-R-T Axes : 060 -57 073 degrees QTc Int : 382 ms Sinus bradycardia with 1st degree A-V block Left axis deviation Left ventricular hypertrophy with QRS widening and repolarization abnormality Abnormal ECG When compared with ECG of 30-SEP-2017 05:31, Premature ventricular complexes are no longer Present Confirmed by NAKIA MOREAU, LAURE ([id number]), editorial specialist PAVEL GUO ([id number]) on 09/19/2018 4:08:02 PM Referred By: SAMMI Confirmed By:LAURE YEE MD
[2018-09-17] MEDS: 0.9% Normal Saline 1,000 ML 75 ML IV (12:20)
[2018-09-17] MEDS: hydroCHLOROthiazide 12.5mg 12.5 MG PO (12:58)
[2018-09-17] MEDS: Atorvastatin Calcium 80 MG Tablet PO (21:27)
[2018-09-17] MEDS: Carvedilol 12.5 MG Tablet PO (21:28)
--- NOTE | 2018-09-18 | CT_ITS ---
STUDY: CTA CHEST REASON FOR EXAM: Male, 58 years old. Shortness of breath. Chest pain. Elevated d-dimer. History of coronary artery disease, bladder cancer, heart stent. RADIATION DOSAGE (If Supplied By Facility): CTDIvol = ( 20.57 ) mGy, DLP = ( 806.62 ) mGycm TECHNIQUE: The examination was performed with the intravenous administration of 100 ml of Isovue 370 contrast material. Post-processing of the angiographic images was performed, with multiplanar reformation and 3D reconstruction. Individualized dose optimization techniques were used for this CT. COMPARISON: Chest x-ray 09/17/2018. FINDINGS: Normal enhancement of the main pulmonary artery and right and left pulmonary arteries. Normal enhancement of the bilateral peripheral pulmonary arteries. There is no demonstrated pulmonary embolism. There is minimal atherosclerotic calcification of the thoracic aorta and visualized great vessels. There is no demonstrated aortic dissection. Normal heart and pericardium. Normal mediastinum. Normal hilar regions. Normal visualized trachea and bronchi. There is an area of platelike atelectasis in the posterior right lung base. In general, the lungs are mildly hyperexpanded, with flattening of the diaphragm. There are mild emphysematous and fibrotic changes. As seen on axial image 173, there is a 5.5 mm noncalcified right upper lobe lung nodule. As seen on axial image 163, there is a 5.4 mm noncalcified right middle lobe lung nodule. As seen on axial image 172, there is a 5.1 mm noncalcified left upper lobe lung nodule. Normal pleura. Normal chest wall structures. There are degenerative changes of thoracic spine. Normal visualized upper abdomen. CT/CTA Chest W/WO Contrast IMPRESSION: Normal CTA chest examination, without a demonstrated pulmonary embolism or arterial dissection. Mild emphysematous and fibrotic changes in the lungs, without evidence for COPD. 3 noncalcified pulmonary nodules are identified, ranging up to 5.5 mm. Recommend 6 month follow-up exam to assess stability. No evidence for acute cardiopulmonary pathology. Electronically Signed: Laron Orosco MD at 7:31 EST , Service support ,
[2018-09-18] MEDS: 0.9% Normal Saline 1,000 ML 75 ML IV (02:00)
[2018-09-18 03:02] VITALS: PULSE 60
[2018-09-18 03:24] VITALS: BP 144/85; PULSE 59; RESP 16; TEMP 36.7; O2SAT 92
[2018-09-18 06:21] LABS: Hematocrit 41.8 % (40-54); Mean Corp Hgb Conc 33.5 g/gl (32-36); Mean Corpuscular Hgb 31.3 pg (27.0-32.0); Mean Corpuscular Volume 93.5 fL (80-94); Mean Platelet Vol. 11.7 fl (6.2-12.0); Platelet Count 177 K/mm3 (150-450); RBC Distribution Width CV 13.4 % (11.6-14.6); RBC Distribution Width SD 45.8 fl (35.1-43.9); Red Blood Count 4.47 M/mm3 (4.6-6.2); White Blood Count 10.1 K/mm3 (4.4-11.0)
[2018-09-18 06:38] LABS: Anion Gap 9 (5-15); BUN 12 mg/dL (7-18); BUN/Creat Ratio 17.1 RATIO (10-20); Calcium,Total 8.5 mg/dL (8.5-10.1); Chloride 107 mmol/L (98-107); EST Glomerular Filtration Rate 122 mL/min (>60); Est Glom Filt Rate - Afr Amer 148 mL/min (>60); Glucose 134 mg/dL (74-106); Magnesium 1.9 mg/dL (1.6-2.6); Potassium 3.6 mmol/L (3.5-5.1); Sodium Level 140 mmol/L (136-145)
[2018-09-18 06:39] LABS: Scan Indicated on CBC? Y/N NO
[2018-09-18 07:25] VITALS: PULSE 75
[2018-09-18 08:11] VITALS: BP 152/80; PULSE 59; RESP 16; TEMP 36.4; O2SAT 94
[2018-09-18] MEDS: Lisinopril 40 MG Tablet PO (09:23)
--- NOTE | 2018-09-18 10:57 | STRESSREP ---
Stress Test Report Pharmacologic myocardial perfusion stress test. 58-year-old man with a history of hypertension and coronary artery disease premature ventricular complexes. Stress protocol: Resting EKG demonstrates normal sinus rhythm with rate of 68 bpm normal intervals are noted frequent premature ventricular complexes are noted resting blood pressure 158/80 6 m of mercury. 0.5 mg of regadenoson was infused per usual protocol followed by rapid intravenous saline flush injection continuous EKG monitoring was performed. The maximum heart rate attained was 96 bpm which was 59% of maximum predicted heart rate the maximum workload was 1 metabolic equivalent. Patient maintained sinus rhythm with frequent premature ventricular complexes nonspecific ST-T wave changes were noted with normally the criteria for ischemia. No clinical angina was noted. Myocardial perfusion protocol. 14.5 mCi of technetium 99m sestamibi was injected at rest. 0.4 mg of regadenoson was infused per usual protocol peak infusion 44.8 mCi of technetium 99m sestamibi was injected stress images were obtained stress and rest images were reconstructed and compared in the short axis vertical and horizontal long axis. Gated images could not be performed. Perfusion SPECT analysis: Review of the stress images demonstrate normal uptake of tracer noted in the septum anterior wall and lateral wall. The apical inferior wall has a medium zone of perfusion defect present on the stress and rest images to a similar extent. The above may be suggestive of a previous inferior infarct and apical infarct. No ischemia is noted. Conclusion: Pharmacologic myocardial perfusion stress test with no evidence of ischemia. Previous inferior apical infarct cannot be completely excluded.
--- NOTE | 2018-09-18 11:01 | PN.CARD_ITS ---
Subjectve: Patient seen and evaluated. Appears to be stable Objective: Vital Signs Temp Pulse Resp BP Pulse Ox 97.5 F L 59 L 16 152/80 H 94 09/18/18 08:11 09/18/18 08:11 09/18/18 08:11 09/18/18 08:11 09/18/18 08:11 Oxygen Flow Rate (L/min) 2 Oxygen Delivery Method Room Air Weight: 259 lb 14.8 oz Body Mass Index (BMI) 30.1 Intake and Output for Last 24 Hours 09/16/18 09/17/18 09/18/18 23:59 23:59 23:59 Intake Total 950 / 950 1807 / 1807 Output Total 450 / 450 Balance 500 / 500 1807 / 1807 General: Awake, Alert, Oriented x 3 HEENT: PERRL, EOMI, Sclera Non Icteric Neck: Supple, Good ROM, No Lymph Node Enlargement Lungs: Clear to auscultation Cardiovascular: Regular Rhythm, Premature Ectopic Beats, Normal S1, Normal S2, No Murmurs, No Rubs, No Gallops Vascular: No Carotid Bruits, Normal Femoral Pulses, Normal Radial Pulses, Normal Dorsalis Pedal Pulse, Normal Posterior Tibial Pulses Abdomen: Bowel Sounds Present, Soft, Non Tender, No HSM, No Organomegaly Extremities: No Cyanosis, No Clubbing, No edema Neurological: No Focal Motor or Sensory Deficit 09/17/18 10:15: Troponin I 0.030 09/17/18 13:06: Troponin I 0.040 09/18/18 05:40: WBC 10.1, RBC 4.47 L, Hgb 14.0, Hct 41.8, MCV 93.5, MCH 31.3, MCHC 33.5, RDW 13.4, RDW Differential 45.8 H, Plt Count 177, MPV 11.7 09/18/18 05:45: Sodium 140, Potassium 3.6, Chloride 107, Carbon Dioxide 24.0, Anion Gap 9, BUN 12, Creatinine 0.70, Est GFR (MDRD) Af Amer 148, Est GFR (MDRD) Non-Af 122, BUN/Creatinine Ratio 17.1, Glucose 134 H, Calcium 8.5, Magnesium 1.9 Rhythm: EKG: ECHO: Stress Test: Cardiac Cath: PCI: CT Surgery: Holter monitor: EPS: PPM: CXR: Chest CT Scan: Medical Necessity - Tobacco Use Smoking Status: Former smoker Assessment/Plan 1. Chest discomfort-patient with known coronary artery disease status post angioplasty and stenting of the circumflex artery, and the right coronary artery Patient has mild chest discomfort with elevated blood pressure. The above appears to be somewhat atypical. * Recommendation would be to increase his beta-hardik to carvedilol 12.5 mg twice a day * Patient underwent pharmacologic myocardial perfusion stress test we did not demonstrate any evidence of ischemia. * Plan will be to continue aggressive medical therapy as an outpatient. * CT scan also did not demonstrate any significant pulmonary pathology. 2. Hypertension * Patient has uncontrolled hypertension * Would recommend increasing the carvedilol for better treatment * May consider the addition of hydrochlorothiazide to the regimen * 3. Premature ventricular complexes * Patient has evidence of previous premature ventricular complexes as well as a mild cardiomyopathy. * Estimated ejection fraction is 45% * Will continue with beta-hardik and BRDOIE inhibitor. * 4. Lipidemia * Continue with aggressive risk factor modification * * Thank you for allowing me to participate in the care of your patient. Please don't hesitate to call if any issues arise
[2018-09-18 11:20] VITALS: PULSE 79
--- NOTE | 2018-09-18 11:20 | DCINST_ITS ---
You will use the following diet at home:: Cardiac Your food should be the consistency of: Regular Discharge Activity: Return to Normal Activity Weight Bearing Status: Weight bearing as tolerated Call your doctor if you observe: Fever of 101 or Higher, Shortness of breath, Dizziness, Fainting spells, Chest pain, Increased palpitations (irregular heartbeat), Uncontrolled pain Allergies/Adverse Reactions: Allergies No Known Allergies Allergy (Verified 09/17/18 07:07) Medications to take at Discharge Aspirin E.C. [Ecotrin] 81 mg PO DAILY@0800 tab 09/15/17 clopidogrel 75 mg tablet 75 mg PO DAILY #30 tab 08/28/18 lisinopril 40 mg tablet 40 mg PO DAILY #90 tab 09/12/18 Atorvastatin Calcium [Lipitor] 80 mg PO QHS 09/17/18 Carvedilol [Coreg (Beta Gregory)] 12.5 mg PO BID #90 tablet 09/18/18 Hydrochlorothiazide 12.5 mg PO DAILY #30 capsule 09/18/18 The following prescriptions were given: Hydrochlorothiazide 12.5 mg PO DAILY #30 capsule Carvedilol [Coreg (Beta Gregory)] 12.5 mg PO BID #90 tablet Primary Care Physician: NOT,DEFINED [Primary Care Provider] - Please follow up with your Primary Care Physician in: 1 week. Test Results: Test results from this visit will be discussed in further detail at your follow- up appointment, if applicable. Please Follow Up With: Kitr Stevens MD When: please call his office.
--- NOTE | 2018-09-18 11:51 | PHA.DC.MC ---
Pharmacy Service has performed discharge medication reconciliation and counseling for this patient. The patient's discharge medication list was reviewed for discrepancies and discrepancies were resolved. The patient was counseled on the following discharge medications and changes in medications for homegoing were reviewed. The Reason for Use, instructions for use, and potential side effects were reviewed for all new medications. The patient's questions regarding all of their medications were answered. Home Medications Aspirin E.C. [Ecotrin] 81 mg PO DAILY@0800 tab 09/15/17 clopidogrel 75 mg tablet 75 mg PO DAILY #30 tab 08/28/18 lisinopril 40 mg tablet 40 mg PO DAILY #90 tab 09/12/18 Atorvastatin Calcium [Lipitor] 80 mg PO QHS 09/17/18 Carvedilol [Coreg (Beta Gregory)] 12.5 mg PO BID #90 tablet 09/18/18 Hydrochlorothiazide 12.5 mg PO DAILY #30 capsule 09/18/18 The patient demonstrated some understanding but would benefit from further education and reinforcement.
[2018-09-18] MEDS: Aspirin E.C. 81 MG Tablet PO (12:11)
[2018-09-18] MEDS: Carvedilol 12.5 MG Tablet PO (12:11)
[2018-09-18] MEDS: hydroCHLOROthiazide 12.5mg 12.5 MG PO (12:11)
[2018-09-18] MEDS: Clopidogrel Bisulfate 75 MG Tablet PO (12:12)
[2018-09-18 12:18] VITALS: BP 152/80; PULSE 59; RESP 16; TEMP 36.4; O2SAT 94
--- NOTE | 2018-09-18 15:11 | DS.PCM_ITS ---
Discharge Date and Diagnosis Date of Admission: 09/17/18 Date of Discharge: 09/18/18 - Primary Discharge Diagnosis #1 chest pain, ACS ruled out. #2 elevated d-dimer, CTA chest was negative for PE. - Secondary Discharge Diagnosis Chronic Problems (Last Reviewed 09/17/18 @ 09:31 by Rangel Snider MD) Shortness of breath (Chronic) Bradycardia (Chronic) H/O lumbar discectomy (Chronic) History of cystoscopy (Chronic) Tobacco abuse (Chronic) Bladder cancer (Chronic) History of coronary artery stent placement (Chronic) BERT to LCX 08/2017; staged complex PCI with BERT to PDA and RCA 09/2017; Atherosclerotic heart disease of [place] coronary artery with other forms of angina pectoris (Chronic) BERT to LCX 08/2017; staged complex PCI with BERT to PDA and RCA 09/2017; Hospital Course and Treatment Imaging Results: 09/18/18 06:18 Nuclear Stress Test - Chemical [NM] Routine Clinical Impression(s) from Imaging Studies Chest X-Ray 09/17/18 07:22 IMPRESSION: Suggestion of COPD. No evidence for acute cardiopulmonary pathology. Electronically Signed: Laron Orosco MD at 7:37 EST , Service support , Chest CTA 09/18/18 00:00 IMPRESSION: Normal CTA chest examination, without a demonstrated pulmonary embolism or arterial dissection. Mild emphysematous and fibrotic changes in the lungs, without evidence for COPD. 3 noncalcified pulmonary nodules are identified, ranging up to 5.5 mm. Recommend 6 month follow-up exam to assess stability. No evidence for acute cardiopulmonary pathology. Electronically Signed: Laron Orosco MD at 7:31 EST , Service support , Dr. Stevens, cardiology. Operations: None Procedures: 2-D Echocardiogram, EKG, Stress test Summary of Care Provided: Patient seen and examined on the day of discharge and appeared to be stable to be discharged home. She denied any more chest pain. His vital signs are stable. The patient is a 58 year old M admitted for chest pain for evaluation. He has history of CAD status post stents. His EKG revealed no evidence of acute ischemic changes. His troponin was negative x3. Chest x-ray showed no acute findings. He was found to have elevated d-dimer for which CTA chest done and showed no evidence of PE or dissection. 2D echocardiogram revealed ejection fraction of 45%, normal LV size, no evidence of diastolic dysfunction and no significant valvular heart disease. Patient underwent nuclear stress test that was negative for stress-induced myocardial ischemia. CTA chest revealed right upper lobe, right middle lobe and left upper lobe lung nodules, noncalcified and small in size measuring less than 6 mm. Patient discharged home in a stable medical condition, discharged on his home medications without any changes including aspirin, statins, beta-blockers, Plavix, lisinopril and HCTZ, I would recommend repeat CT scan chest for those small lung nodules bilaterally in 6 months to 1 year for follow-up, recommended follow-up with PCP in 1 week. - Physical Exam General: Alert, Oriented x3, Cooperative, No apparent distress HEENT: Atraumatic, PERRLA Oral: Moist Mucosa, No Gingival or Mucosal Lesions/ Ulcerations Neck: Supple, No JVD, Negative Carotid Bruits, Thyroid Normal Size and Texture Lungs: Clear to auscultation, No rhonchi, No wheeze, No rales, Diminished Cardiovascular: Regular rate, Regular Rhythm, Normal S1, Normal S2, PMI Normal Abdomen: Bowel Sounds Present, Soft, Non Tender, Non-Distended, No Hepato- splenomegaly Extremities: No clubbing, No cyanosis, No edema Skin: No rashes, No breakdown Lymphatic: No Cervical, Supraclavicular, or Inguinal Adenopathy Neurological: Cranial nerves II-XII grossly intact, Neuro grossly intact Psych/Mental Status: Normal Affect, Appropriate Vital Signs Temp Pulse Resp BP Pulse Ox 97.5 F L 59 L 16 152/80 H 94 09/18/18 12:18 09/18/18 12:18 09/18/18 12:18 09/18/18 12:18 09/18/18 12:18 Oxygen Flow Rate (L/min) 2 Oxygen Delivery Method Room Air Weight: 259 lb 14.8 oz Body Mass Index (BMI) 30.1 Intake and Output for Last 24 Hours 09/16/18 09/17/18 09/18/18 23:59 23:59 23:59 Intake Total 950 / 950 2301 / 2301 Output Total 450 / 450 Balance 500 / 500 2301 / 2301 Laboratory Tests Past 24 Hrs 09/18/18 09/18/18 05:40 05:45 WBC 10.1 RBC 4.47 L Hgb 14.0 Hct 41.8 MCV 93.5 MCH 31.3 MCHC 33.5 RDW 13.4 RDW Differential 45.8 H Plt Count 177 MPV 11.7 Sodium 140 Potassium 3.6 Chloride 107 Carbon Dioxide 24.0 Anion Gap 9 BUN 12 Creatinine 0.70 Estim Creat Clear Calc 143.20 Est GFR (MDRD) Af Amer 148 Est GFR (MDRD) Non-Af 122 BUN/Creatinine Ratio 17.1 Glucose 134 H Calcium 8.5 Magnesium 1.9 Discharge Activity: Return to Normal Activity Weight Bearing Status: Weight bearing as tolerated Call your doctor if you observe: Fever of 101 or Higher, Shortness of breath, Dizziness, Fainting spells, Chest pain, Increased palpitations (irregular heartbeat), Uncontrolled pain Home Medications: Medications to take at Discharge Aspirin E.C. [Ecotrin] 81 mg PO DAILY@0800 tab 09/15/17 clopidogrel 75 mg tablet 75 mg PO DAILY #30 tab 08/28/18 lisinopril 40 mg tablet 40 mg PO DAILY #90 tab 09/12/18 Atorvastatin Calcium [Lipitor] 80 mg PO QHS 09/17/18 Carvedilol [Coreg (Beta Gregory)] 12.5 mg PO BID #90 tablet 09/18/18 Hydrochlorothiazide 12.5 mg PO DAILY #30 capsule 09/18/18 Following Prescrptions Were Given to Patient: Hydrochlorothiazide 12.5 mg PO DAILY #30 capsule Carvedilol [Coreg (Beta Gregory)] 12.5 mg PO BID #90 tablet Primary Care Physician: NOT,DEFINED [NON-STAFF] - Please follow up with your Primary Care Physician in: 1 week. Please Follow Up With: Kirt Stevens MD When: please call his office. Disposition: Home Minutes spent on discharge:: 24 Patient Condition:: Stable Medical Necessity - Tobacco Use Smoking Status: Former smoker Meaningful Use Info Meaningful Use Diagnoses (Choose all that apply): None applicable Code Visit OBSV E&M: 31280 Observation care discharge
== END 2018-09-18 11:30 | disposition home or self-care (01) ==
LOC: ED 07:30 → PCU 09:07
PROVIDERS: Admitting Provider Internal Medicine; Emergency Provider Emergency Medicine; Family Provider Family Medicine; PCP Family Medicine; Visit Provider Hospitalist
DX: I25.110 Atherosclerotic heart disease of native coronary artery with unstable angina pectoris (principal); Z95.5 Presence of coronary angioplasty implant and graft; I25.2 Old myocardial infarction; R00.2 Palpitations; I48.92 Unspecified atrial flutter; R06.02 Shortness of breath; Z87.891 Personal history of nicotine dependence; Z85.51 Personal history of malignant neoplasm of bladder; I49.3 Ventricular premature depolarization; Z79.02 Long term (current) use of antithrombotics/antiplatelets; Z79.899 Other long term (current) drug therapy; Z79.82 Long term (current) use of aspirin; I10 Essential (primary) hypertension
CPT/HCPCS: 36415; 71045; 71275; 78452; 80048; 83735; 84443; 84484; 85025; 85027; 85379; 93005; 93017; 93306; 96360; 96361; 96372; 97802; 99218; 99285; 99406; A9500; J7030; Q9957; Q9967; A4216; C8929; G0378; J2785

== ENCOUNTER → 2018-09-26 11:22 | Outpatient (CLI) | payer BC, SELFPAY ==
[2017-09-29 14:27] VITALS: BMI 32.5
[2018-09-17 09:47] VITALS: BMI 30.1
[2018-09-26 11:26] LABS: Bacteria 0 SEEN /hpf (None Seen); Red Blood Cells-Urine 0 SEEN /hpf (0-5); Squamous Epithelial Cells - UA 0 SEEN /hpf (0-5); White Blood Cells 0 SEEN /hpf (0-5)
[2018-09-26 12:16] LABS: Color, Urine Yellow (Yellow); Glucose, Dipstick Normal (Normal); Ketone-Dipstick Negative (Negative); Leukocyte Esterase-Dipstick Negative /ul (Negative); Nitrite-Dipstick Negative (Negative); Occult Blood-Urine 25 /ul (Negative); Protein-Dipstick Negative (Negative); Specific Gravity, Urine 1.025 (1.002-1.030); Urine Bilirubin Dipstick Negative (Negative); Urine Clarity Clear (Clear); Urine Urobilinogen Normal (Normal)
[2018-09-26 12:31] LABS: Mucous, Urine RARE /hpf (<or=2+)
== END ==
LOC: MFPLAB 11:23 → LABSPEC 11:23
PROVIDERS: Family Provider Family Medicine; PCP Family Medicine; Visit Provider Family Medicine
DX: I10 Essential (primary) hypertension (principal)
CPT/HCPCS: 81001

== ENCOUNTER → 2019-01-03 08:58 | Outpatient (CLI) | payer BC, SELFPAY ==
[2017-09-29 14:27] VITALS: BMI 32.5
[2018-10-02 15:16] VITALS: BMI 30.4
[2019-01-03 10:30] LABS: Absolute Lymphocyte Count 1.72 X10^3/ul (0.83-4.51); Basophil# 0.02 X10^3/uL; Basophil% 0.2 % (0-1); Eosinophil# 0.21 X10^3/uL; Eosinophils% 2.1 % (0-5); Hematocrit 42.3 % (40-54); Hemoglobin 14.2 g/dl (13.0-16.5); Lymphocyte # 1.72 X10^3/ul (4.0); Lymphocyte % 17.6 % (19-41); Mean Corp Hgb Conc 33.6 g/gl (32-36); Mean Corpuscular Hgb 31.8 pg (27.0-32.0); Mean Corpuscular Volume 94.8 fL (80-94); Mean Platelet Vol. 12.1 fl (6.2-12.0); Monocyte# 0.82 X10^3/uL; Monocyte% 8.4 % (0-10); Neutrophil # 6.98 X10^3/uL (2.7-7.7); Neutrophil % 71.5 % (47-70); Platelet Count 179 K/mm3 (150-450); RBC Distribution Width CV 12.9 % (11.6-14.6); RBC Distribution Width SD 43.4 fl (35.1-43.9); Red Blood Count 4.46 M/mm3 (4.6-6.2); White Blood Count 9.8 K/mm3 (4.4-11.0)
[2019-01-03 10:35] LABS: POSITIVE COUNT NO; POSITIVE DIFFERENTIAL NO; POSITIVE MORPHOLOGY NO
[2019-01-03 10:43] LABS: Hemoglobin A1c 7.8 % (4.2-6.3)
[2019-01-03 10:52] LABS: ALB/GLOB Ratio 1.3 RATIO (0.9-2.4); AST(SGOT) 17 U/L (15-37); Alanine Aminotransfer ALT/SGPT 30 U/L (16-61); Albumin, Serum 3.9 g/dL (3.2-5.0); Alkaline Phosphatase 104 U/L (45-117); Anion Gap 8 (5-15); BUN 18 mg/dL (7-18); BUN/Creat Ratio 23.7 RATIO (10-20); Calcium,Total 8.7 mg/dL (8.5-10.1); Chloride 104 mmol/L (98-107); Cholesterol 122 mg/dL (200); Creatinine, Serum 0.76 mg/dL (0.70-1.30); EST Glomerular Filtration Rate 112 mL/min (>60); Est Glom Filt Rate - Afr Amer 135 mL/min (>60); Globulin 2.9 g/dL (2.2-4.2); Glucose 144 mg/dL (74-106); High Density Lipoprotein 34 mg/dL; Protein, Total 6.8 g/dL (6.4-8.2); Sodium Level 138 mmol/L (136-145); Triglycerides 122 mg/dL; Very Low Density Lipoprotein 24 mg/dL (5-40)
== END ==
PROVIDERS: Family Provider Family Medicine; PCP Family Medicine; Referring Provider Family Medicine; Visit Provider Family Medicine
DX: I10 Essential (primary) hypertension (principal); E78.5 Hyperlipidemia, unspecified; R73.02 Impaired glucose tolerance (oral)
CPT/HCPCS: 36415; 80053; 80061; 83036; 85025

== ENCOUNTER → 2019-04-05 | Outpatient (CLI) | payer BC, SELFPAY ==
[2017-09-29 14:27] VITALS: BMI 32.5
[2019-03-08 14:47] VITALS: BMI 29.5
--- NOTE | 2019-04-05 16:55 | RAD_ITS ---
HISTORY: back pain, no injury COMPARISON: None FINDINGS: # of images incl. paperwork: 5 XR Spine Lumbar 5 views: Gentle levoscoliosis at thoracolumbar junction with a gentle compensatory dextroscoliosis from L3-S1. Multilevel degenerative disc disease. This disease is manifest by loss of disc height, endplate sclerosis, and osteophytes. Osteophytes are largest at the thoracolumbar junction, and at the upper lumbar spine. Facet arthropathy. Calcific atherosclerotic disease. Probable mild hip arthritis. SI joint arthritis at the anterior, synovial portion of the SI joints. RAD/L/S Spine Min 4 Views IMPRESSION: Multilevel degenerative disc disease with enthesophytes. The largest enthesophytes are present at the T12-L1 and L1-L2 levels. Disc disease is perhaps greatest at the L2-L3 or L4-L5 level with loss of disc height. This loss of disc height, facet arthropathy, enthesophytes contributes to spinal canal stenosis. at 0585 Reported and signed by: Dany Bentley MD Electronically Signed: Dany Bentley MD at 5:51 EDT Tel , Service support ,
== END | disposition home or self-care (01) ==
LOC: MTRAD 16:54
PROVIDERS: Family Provider Family Medicine; PCP Family Medicine; Referring Provider Family Medicine; Visit Provider Family Medicine
DX: M47.819 Spondylosis without myelopathy or radiculopathy, site unspecified (principal)
CPT/HCPCS: 72110

== ENCOUNTER → 2019-04-10 | Outpatient (CLI) | payer BC, SELFPAY ==
[2017-09-29 14:27] VITALS: BMI 32.5
[2019-03-08 14:47] VITALS: BMI 29.5
[2019-04-10 15:11] LABS: Absolute Lymphocyte Count 2.34 X10^3/ul (0.83-4.51); Absolute Neutrophil Count 6.2 X10^3/uL (2.0-7.7); Basophil# 0.04 X10^3/uL; Basophil% 0.4 % (0-1); Eosinophils% 3.1 % (0-5); Hematocrit 40.4 % (40-54); Hemoglobin 13.6 g/dl (13.0-16.5); Lymphocyte # 2.34 X10^3/ul (4.0); Lymphocyte % 24.1 % (19-41); Mean Corp Hgb Conc 33.7 g/gl (32-36); Mean Corpuscular Hgb 31.6 pg (27.0-32.0); Mean Platelet Vol. 11.4 fl (6.2-12.0); Monocyte# 0.77 X10^3/uL; Monocyte% 7.9 % (0-10); Neutrophil # 6.23 X10^3/uL (2.7-7.7); Neutrophil % 64.3 % (47-70); Platelet Count 218 K/mm3 (150-450); RBC Distribution Width CV 13.5 % (11.6-14.6); RBC Distribution Width SD 46.2 fl (35.1-43.9); White Blood Count 9.7 K/mm3 (4.4-11.0)
[2019-04-10 15:18] LABS: POSITIVE COUNT NO; POSITIVE DIFFERENTIAL NO; POSITIVE MORPHOLOGY NO
[2019-04-10 15:34] LABS: Hemoglobin A1c 6.7 % (4.2-6.3)
[2019-04-10 15:41] LABS: ALB/GLOB Ratio 1.2 RATIO (0.9-2.4); AST(SGOT) 14 U/L (15-37); Alanine Aminotransfer ALT/SGPT 28 U/L (16-61); Albumin, Serum 3.7 g/dL (3.2-5.0); Alkaline Phosphatase 77 U/L (45-117); Anion Gap 11 (5-15); BUN 20 mg/dL (7-18); BUN/Creat Ratio 24.2 RATIO (10-20); Chloride 103 mmol/L (98-107); Cholesterol 133 mg/dL (200); Creatinine, Serum 0.83 mg/dL (0.70-1.30); EST Glomerular Filtration Rate 101 mL/min (>60); Est Glom Filt Rate - Afr Amer 122 mL/min (>60); Glucose 160 mg/dL (74-106); High Density Lipoprotein 36 mg/dL; Potassium 3.8 mmol/L (3.5-5.1); Protein, Total 6.7 g/dL (6.4-8.2); Sodium Level 142 mmol/L (136-145); Triglycerides 133 mg/dL; Very Low Density Lipoprotein 27 mg/dL (5-40)
== END | disposition home or self-care (01) ==
LOC: MFPLAB 14:13
PROVIDERS: Family Provider Family Medicine; PCP Family Medicine; Referring Provider Family Medicine; Visit Provider Family Medicine
DX: I10 Essential (primary) hypertension (principal); E11.9 Type 2 diabetes mellitus without complications; E78.5 Hyperlipidemia, unspecified
CPT/HCPCS: 36415; 80053; 80061; 83036; 85025

== ENCOUNTER → 2019-04-11 | Outpatient (CLI) | payer BC, SELFPAY ==
[2017-09-29 14:27] VITALS: BMI 32.5
[2019-03-08 14:47] VITALS: BMI 29.5
[2019-04-11 16:09] LABS: Microalbumin,Random Urine 10.8 mg/L (NO RANGE EST.); Microalbumin:Creatinine Ratio 13.6 mg/g CRE (<30 mg/g CRE)
== END | disposition home or self-care (01) ==
LOC: LABSPEC 13:57
PROVIDERS: Family Provider Family Medicine; PCP Family Medicine; Referring Provider Family Medicine; Visit Provider Family Medicine
DX: E78.5 Hyperlipidemia, unspecified (principal); E11.9 Type 2 diabetes mellitus without complications; I10 Essential (primary) hypertension
CPT/HCPCS: 82043; 82570

== ENCOUNTER → 2019-04-21 | Outpatient (CLI) | payer BC, SELFPAY ==
[2017-09-29 14:27] VITALS: BMI 32.5
[2019-03-08 14:47] VITALS: BMI 29.5
--- NOTE | 2019-04-21 09:13 | CT_ITS ---
STUDY: CT CHEST WITHOUT CONTRAST REASON FOR EXAM: Male, 58 years old. Pulmonary nodules. RADIATION DOSAGE (If Supplied By Facility): CTDIvol = ( 18.06 ) mGy, DLP = ( 694.89 ) mGycm TECHNIQUE: Transaxial imaging was performed without the administration of intravenous contrast material. Individualized dose optimization techniques were used for this CT. COMPARISON: September 18, 2018. FINDINGS: Moderate bronchiectasis is identified in the right upper and right lower lobes. Mild emphysematous changes are noted in the right lung apex. Clustered stable. 5 mm nodules are noted in the right upper lobe best seen on axial images 54 through 59. Persistent scarring is noted in the right lower lobe peripherally. There is a stable 4 mm nodule in the left lower lobe axial image 66. Additional scattered 3 mm subpleural nodules are noted in both lungs. There is a stable 5 mm nodule in the lingula axial image 87. There is a stable 4 mm nodule noted in the left upper lobe axial image 51. There is no demonstrated pleural abnormality. Normal heart and pericardium. Normal mediastinum. Normal hilar regions. Normal unenhanced pulmonary arteries. Normal aorta arch and descending thoracic aorta. Normal osseous structures. There is no demonstrated abnormality of the visualized upper abdomen. CT/Chest without Contrast IMPRESSION: Stable nodules and additional findings noted in the lungs as described. Electronically Signed: Rom Childress, at 9:26 EDT Tel , Service support ,
== END | disposition home or self-care (01) ==
PROVIDERS: Family Provider Family Medicine; PCP Family Medicine; Referring Provider Family Medicine; Visit Provider Family Medicine
DX: R91.8 Other nonspecific abnormal finding of lung field (principal)
CPT/HCPCS: 71250

== ENCOUNTER → 2019-09-27 12:36 | Outpatient (CLI) | payer BC, SELFPAY ==
[2017-09-29 14:27] VITALS: BMI 32.5
[2019-09-13 15:27] VITALS: BMI 30.6
--- NOTE | 2019-09-27 12:39 | STEWCON_ITS ---
Reason For Study: CAD Stress Results Protocol: Dobutamine Stress Echo With Definity Maximum Predicted HR: 160 bpm Target HR: 136 bpm % Maximum Predicted HR: 86 % DurationHeart Rate Stage (mm:ss) (bpm) BP Comment Baseline 51 131/64No Chest Pain; 7 ML Diluted Definity Given DSE 10 MCG 3:52 46 133/83No Chest Pain DSE 20 MCG 3:00 59 155/78No Chest Pain DSE 30 MCG 3:00 74 180/72No Chest Pain; Atropine 0.5 MG IVP DSE 40 MCG 3:42 137 161/756/10 Chest Pain; Atropine 0.5 MG IVP Recovery 85 128/77Chest Pain Resolved 4 Minutes Into Recovery; No Chest Pain Stress Duration: 13:34 mm:ss Maximum Stress HR: 137 bpm METS: 1 Baseline Echocardiogram Findings The estimated ejection fraction is 45 %. Moderately dilated left ventricle. Stress Echo Wall motion Data Resting WM Intermediate WM Stress WM Resting Wall Motion Wall Motion Stress Moderate global LV dysfunction No regional wall motion with baseline LVEF=45%. abnormalities noted. EKG Data The baseline ECG displays normal sinus rhythm. The patient was titrated from 10 mcg to a maximum of 40 mcg of dobutamine during the stress. The maximum heart rate attained was 144 beats per minute. This was 90% of maximum predicted heart rate. During dobutamine infusion, there were no ST or T wave changes noted to suggest ischemia. No clinical angina was noted. Interpretation Summary The estimated ejection fraction is 45 %. Moderately dilated left ventricle. Moderate global LV dysfunction with baseline LVEF=45%. Normal, adequate, dobutamine echocardiogram. Negative for ischemia by EKG and echocardiographic criteria. No anginal symptoms noted. Rare PVCs noted. Patient at baseline global LV dysfunction with an EF around 45%, and all cooper contracted normally with incremental doses of dobutamine. Final LVEF is 65%. Test terminated due to the attainment of target heart rate. Decreased sensitivity due to poor echo windows requiring Definity agent. No complications. Patient tolerated the procedure well. The study was technically difficult. Contrast injection was performed. Ordering Physician: Reagan Mendoza Referring Physician: Rom Vora Performed By: María Gregory RDCS, RVT
== END ==
LOC: CVS 12:38
PROVIDERS: Family Provider Family Medicine; PCP Family Medicine; Referring Provider Nurse Practitioner Family; Visit Provider Nurse Practitioner Family
DX: I25.118 Atherosclerotic heart disease of native coronary artery with other forms of angina pectoris (principal); Z95.5 Presence of coronary angioplasty implant and graft; R53.83 Other fatigue; I45.89 Other specified conduction disorders
CPT/HCPCS: 93017; 93350; J7040; Q9957; A4216; C8928

== ENCOUNTER 2019-11-07 09:26 | Day surgery (SDC) | payer BC, SELFPAY ==
[2017-09-29 14:27] VITALS: BMI 32.5
[2019-09-13 15:27] VITALS: BMI 30.6
--- NOTE | 2019-11-05 10:32 | RAD_ITS ---
STUDY: X-RAY CHEST REASON FOR EXAM: Male, 59 years old. SOB AND CHEST PAINS. TECHNIQUE: Frontal and lateral views of the chest. COMPARISON: 09/17/2018 FINDINGS: The lungs are hyperexpanded. There are coarsened interstitial markings suggestive of mild chronic fibrosis. No gross focal infiltrates. No gross effusions. Normal size heart. Normal mediastinum and barron. Normal visualized pulmonary arteries. Normal visualized aortic arch and descending thoracic aorta. There are diffuse degenerative changes of the visualized thoracic spine. Normal visualized ribs, clavicles, and shoulders. There is no demonstrated abnormality of the visualized soft tissue structures of the upper abdomen. RAD/Chest PA and Lateral IMPRESSION: There are findings consistent with COPD. There is no evidence of acute chest disease. Electronically Signed: Hemanth Atwood MD at 20:45 EST , Service support ,
[2019-11-06 09:00] VITALS: BMI 30.6
--- NOTE | 2019-11-06 12:43 | PCM.HP.BLA ---
<Reagan Mendoza - Last Filed: 11/07/19 10:20> History and Physical Date of Admission: 11/07/19 HPI HPI History of Present Illness Details: Details: SHEEBA ZIMMER, is a 59 M who presents to the office today for a cardiovascular outpatient follow-up. He has a history of coronary artery disease status post stenting to his mid left circumflex in August 2017 and a staged PCI to his RCA and PDA in September 2017. He also has a history of cardiomyopathy, wide-complex tachycardia, daytime somnolence, and frequent PVCs. In late August 2018 the patient had some chest pain and was admitted to [facility]. [facility] was not made aware of his admission. He underwent a CTA of his chest which showed no evidence of PE or dissection. 2D echo showed an EF of 45% and a nuclear stress test was negative for inducible ischemia. He was subsequently discharged and is now here in follow-up. Since discharge he had some very rare palpitations, but no chest pain or anginal symptoms. Patient's main complaint today is generalized joint aches, although he has had a history of arthritis in his knees and lower back problems for some time. Recently however it appears to be worse. Patient underwent a stress echocardiogram on 09/27/2019 that was considered to be a normal, adequate, dobutamine echocardiogram negative for ischemia by EKG and echocardiographic criteria. Throughout the procedure patient noted chest pain. He later developed chest pain and diaphoresis after taking a shower. Given his ongoing chest pain and history of coronary artery disease requiring stenting, he will proceed with a left heart catheterization for further evaluation. Pt denies chest, arm, jaw, or neck discomfort. His exercise tolerance is stable, but he continues to feel the inability to respond to exercise as expected. Pt denies symptoms of CHF, palpitations, dizziness, near syncopal or syncopal episodes. He states intermittent lightheadedness with head movement and looking up. He also states a lack of coordination. Pt denies edema or claudication issues. Pt. denies orthopnea, PND, fever, chills, blood in urine, blood in stool, myalgia, or unexplainable fatigue. In general, he states with activity he does not feel as if he cannot increase his heart rate. Intake Vital Signs: See EMR Intake Visit Reasons: [facility] [employer] [employer] [facility] Required: No Accompanied by: None Is patient in pain?: No Allergies No Known Allergies Allergy (Verified 09/13/19 15:27) Medications See EMR [facility] Medical History (Updated 05/03/19 @ 13:40 by Lenora Godinez) Bradycardia (Chronic) Bladder cancer (Chronic) Atherosclerotic heart disease of [place] coronary artery with other forms of angina pectoris (Chronic) NSTEMI (non-ST elevated myocardial infarction) (Chronic) Chest pain (Resolved) Shortness of breath (Resolved) Sustained ventricular tachycardia (Resolved) Tobacco abuse (Resolved) Unstable angina (Resolved) Surgical History (Updated 09/17/18 @ 12:18 by Rangel Snider MD) H/O lumbar discectomy (Chronic) History of cystoscopy (Chronic) History of coronary artery stent placement (Chronic) Family History (Updated 01/30/18 @ 10:28 by Rosalinda Nicole) Mother CVA (cerebral vascular accident) Father Diabetes Heart disease Social History (Updated 09/14/19 @ 11:35 by Reagan Mendoza CASTING ROOM HELPER-C) Smoking Status: Former smoker how long ago did patient quit smokin09/13/2018 alcohol intake: never substance use type: does not use caffeine: No what type of physical activity do you participate in: none, bicycling frequency: 1-2 times per week duration: 15-30 minutes/day seatbelt use: always do you feel safe at home: Yes ROS Const Const: Negative for fatigue, weakness, body ache, fever(s) or chills ENT ENT: Positive for dry mouth; negative for dizziness Cardio Chest Pain: No Palpitations: No Edema: None Muscle aches with walking: None Resp Respiratory: Negative for SOB with activity, SOB at rest, SOB orthopnea\SOB lying down or paroxysmal nocturnal dyspnea GI GI: Negative nausea, vomiting blood/hematemesis, bright, red blood in stools or black,tarry stools : Negative for hematuria or frequent nighttime urination/ nocturia Musc Musc: Positive for joint pain (bilateral knees); negative for muscle aches/ myalgia Skin Skin: Negative non-healing lesions or rash Neuro Neuro: Positive for lack of coordination; negative for dizziness, lightheadedness, near syncope, syncope, orthostatic symptoms or weakness Endo Endo: Negative for fatigue Allergy Allergy/Immunology: Negative for rash Cardiology Exam Const Appearance: cooperative, healthy appearing, comfortable and no acute distress Nutritional Appearance: well nourished and obese Orientation: alert, awake and oriented x3 Head Head: normal to inspection Ears: hearing grossly normal bilaterally Nose: external nose normal Face and Sinus: face symmetric Mouth: oral mucosae normal Eyes General: appearance normal, both eyes and all related structures Eyelids: eyelids normal EOM: EOM intact bilaterally Neck Neck: normal visual inspection and no JVD Carotids: normal carotid upstroke Chest Chest inspection: normal inspection of the chest, symmetric chest movement and normal respiratory effort; negative cough Auscultation: Bilateral: Clear to Auscultation Cardio Rate: regular rate Rhythm: regular rhythm Heart sounds: S1 normal and S2 normal; negative rub, gallop or murmur GI GI: normal to inspection and obese Neuro General: alert, awake, oriented x3 and CN's II-XI intact bilaterally Skin Skin: no rashes or lesions noted Extremities Pulses: Normal: Right Posterior Tibial Pulse, Left Posterior Tibial Pulse, Right Radial Pulse, Left Radial Pulse Lower Extremity Edema: None: Bilateral Psych Psychological: normal affect Assessment & Plan 1. Atherosclerotic heart disease of [place] coronary artery with other forms of angina pectoris I25.118 BERT to LCX 08/2017; staged complex PCI with BERT to PDA and RCA 09/2017; Plan Patient denies any chest pain, arm pain, jaw pain, neck pain, shortness of breath, or fatigue suggestive of angina at this time. We will continue to monitor. We will not make any medication regimen changes and will continue risk factor modification. Patient's stress echocardiogram is as noted above. He will proceed with left heart catheterization. 2. History of coronary artery stent placement Z95.5 BERT to LCX 08/2017; staged complex PCI with BERT to PDA and RCA 09/2017; Plan He will continue risk factor lifestyle modification. 3. Bradycardia R00.1 Plan During patient's most recent stress echocardiogram he did achieve a elevated heart rate of 137 with 40 mcg of dobutamine. It is unclear if his bradycardia is contributing to his decreased exercise capacity or other etiology such as coronary artery disease. Plan Detail Other Orders Additional Comments Thank you for allowing us to participate in the patients plan of care, if you have any questions please do not hesitate to call. This note was generated using a voice recognition system and there may be incorrect words, spelling or punctuation that were not noted when reviewing the office note prior to saving. Supplemental Info Supplemental Information Echocardiogram from 09/17/2018: Interpretation Summary Normal LV size. The estimated ejection fraction is 45 %. No evidence for diastolic dysfunction. The study was technically limited. The study was technically difficult. Chest CTA from 09/18/2018: IMPRESSION: Normal CTA chest examination, without a demonstrated pulmonary embolism or arterial dissection. Mild emphysematous and fibrotic changes in the lungs, without evidence for COPD. 3 noncalcified pulmonary nodules are identified, ranging up to 5.5 mm. Recommend 6 month follow-up exam to assess stability. No evidence for acute cardiopulmonary pathology. Stress test from 09/28/2019: Interpretation Summary The estimated ejection fraction is 45 %. Moderately dilated left ventricle. Moderate global LV dysfunction with baseline LVEF=45%. Normal, adequate, dobutamine echocardiogram. Negative for ischemia by EKG and echocardiographic criteria. No anginal symptoms noted. Rare PVCs noted. Patient at baseline global LV dysfunction with an EF around 45%, and all cooper contracted normally with incremental doses of dobutamine. Final LVEF is 65%. Test terminated due to the attainment of target heart rate. Decreased sensitivity due to poor echo windows requiring Definity agent. No complications. Patient tolerated the procedure well. The study was technically difficult. Contrast injection was performed. Heart catheterization intervention from 09/29/2017: Conclusions Successful PTCA/BERT of the proximal PDA using a 3.0 x 38 Promus Synergy, postdilated with a 3.5 x 12 NC balloon; 75-->0%, no dissection Successful PTCA/BERT of the mid RCA utilizing a 3.0 x 38 Promus Synergy, postdilated with a 4.5 x 8 NC balloon in the midportion; 75-->0%, no dissection. No plaque shift down PDA ostium. Patient had identical chest pain during balloon/stent inflation as he had at home. Recommendations 1. Highly recommend quitting all tobacco products 2. Follow-up with primary emergency medicine physician 3. Risk factor modification 4. Aspirin indefinitely 5. Plavix for at least 12 months 6. Routine post interventional care 7. Refer for outpatient cardiac rehab 8. Manual sheath removal pleural protocol 9. Successful minx BRODIE device deployed and RFA. No hematoma, 2+ pulses bilaterally distally. <Rom Vora - Last Filed: 11/07/19 11:08> History and Physical Patient seen and examined, and agree with above. The risk/benefits of the procedure were thoroughly explained the patient and informed consent was obtained. Left heart catheterization to follow.
[2019-11-07 09:49] LABS: Partial Thromboplast Time 43.7 Seconds (24.1-36.2)
--- NOTE | 2019-11-07 11:46 | CL.D_ITS ---
Patient Name: SHEEBA ZIMMER Study Date: 11/07/2019 Performing: Rom Vora MD Ht: 77.16 inches 196 cm : 1960 Wt: 257.94 lbs 117 kg Age: 59 Gender: male BSA: 2.5 PROCEDURE(S) PERFORMED QJ24-IPE/COR/LV CLINICAL PROFILE AND INDICATIONS Indications: New Onset Angina <= 2 months, Stable Known CAD, Cardiac Arrythmia, LV Dysfunction Heart Failure: NYHA Class: 1, Newly Diagnosed: No, Heart Failure Type: Systolic Stress/Imaging Date: 09/28/2019 Angina Classification Anginal Classification w/in 2 Weeks: CCS IV CAD Presentations: Unstable angina. Other: Pre-syncope, palpitations Comorbidities/Risk Factors: Hypertension Dyslipidemia Prior CHF Prior PCI Hypertension Dyslipidemia Prior CHF CONCLUSIONS Global LV systolic dysfunction- Severe LVEF: by LV gram 25-30 % Depressed Left Ventricular systolic function - Severe Non obstructive coronary arteries Widely patent LCX, RCA and PDA stents with minimal ISR. Non-obstructive disease of proximal LAD. 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 Manual sheath removal., Sleep study to eval TIFFANIE. Refer to Dr Booth for AICD. 30 day event monitor to quantify PVCs and eval for wide complex tachycardia. DESCRIPTION OF PROCEDURE The patient arrived to the procedure lab. The risks and benefits of the procedure as well as a full d escription of our services here and current unavailability of surgical backup were fully explained to the patient and/or their significant other prior to the catheterization. The Timeout was completed, verifying the correct patient and procedure. The patient's procedural site was prepped and draped in the usual fashion. Local anesthetic was given subcutaneously to right groin region with Lidocaine 2%. Using a modified Seldinger technique, arterial access was obtained via the right femoral artery, a 4 Fr sheath was inserted Left Coronary Artery selective angiography was performed in multiple views us ing a 4 Fr. JL5 catheter. Left Coronary Artery selective angiography was performed in multiple views using a 4 Fr. JL4 catheter. Right Coronary Artery selective angiography was then performed in multipl e views using a 4 Fr. 3DRC catheter. Left Ventriculography was performed in COUCH projection using a 4 Fr. Pigtail catheter. LV to AO pullback pressures were then recorded.The arterial sheath wa s pulled and manual compression applied until hemostasis is achieved. CORONARY ANGIOGRAPHY DOMINANCE: Co- Dominant LEFT HEART ASSESSMENT Left Ventricular Ejection Fraction: by LV Gram 25-30 % Global Hypokinesis - Severe Depressed Left Ventricular systolic function LVEDP: 15 mmHg Elevated Left Ventricular End Diastolic Pressure LEFT MAIN: Angiographically normal LEFT ANTERIOR DESCENDING ARTERY: PROX LAD: Moderate luminal irregularities up to 50% CIRCUMFLEX ARTERY: PROX CIRC: Mild luminal irregularities less than 30% MID CIRC: Previously placed stent is patent RIGHT CORONARY ARTERY: PROX RCA: Mild luminal irregularities less than 30% DISTAL RCA: Previously placed stent is patent RT PDA: Ostial - Previously placed stent is patent with a new 30 % lesion at proximal edge of stent COMPLICATIONS No Complications PROCEDURE MEDICATIONS Oxygen: 2 L/min via nasal cannula Nitro 200 mcg IC 11/07/2019 11:15:32 Nitro 200 mcg IC 11/07/2019 11:15:32 SUMMARY OF HEMODYNAMIC DATA Time AIR REST ECG 09:51:06 AO 153/71 (98) SA 11:14:45 AO 107/70 (88) 11:17:43 LV 160/-2, 15 11:26:14 LV 159/-4, 12 11:26:21 LVp 172/-1, 15 11:26:29 AOp 166/86 (116) 11:26:34 AO 160/75 (103) 11:27:52 Signed By Rom Vora MD On 11/07/2019 11:45:48 Rom Vora MD
== END 2019-11-07 15:10 | disposition home or self-care (01) ==
PROVIDERS: Family Provider Family Medicine; PCP Family Medicine; Referring Provider Internal Medicine Cardiovascular Disease; Visit Provider Internal Medicine Cardiovascular Disease
DX: I25.118 Atherosclerotic heart disease of native coronary artery with other forms of angina pectoris (principal); I10 Essential (primary) hypertension; E78.5 Hyperlipidemia, unspecified; I25.2 Old myocardial infarction; Z85.51 Personal history of malignant neoplasm of bladder; Z95.5 Presence of coronary angioplasty implant and graft; Z79.82 Long term (current) use of aspirin; Z79.02 Long term (current) use of antithrombotics/antiplatelets; Z79.899 Other long term (current) drug therapy; Z87.891 Personal history of nicotine dependence
CPT/HCPCS: 36415; 71046; 80048; 85027; 85610; 85730; 93458; J7040; Q9967; C1769; C1894

== ENCOUNTER → 2019-11-09 10:59 | Outpatient (REF) | payer BC, SELFPAY ==
[2017-09-29 14:27] VITALS: BMI 32.5
[2019-11-06 09:00] VITALS: BMI 30.6
== END ==
LOC: CVS 10:59
PROVIDERS: PCP Family Medicine; Referring Provider Internal Medicine Cardiovascular Disease; Visit Provider Internal Medicine Cardiovascular Disease
DX: I49.3 Ventricular premature depolarization (principal); I51.7 Cardiomegaly; I25.118 Atherosclerotic heart disease of native coronary artery with other forms of angina pectoris; I42.0 Dilated cardiomyopathy
CPT/HCPCS: 93270; 93271

== ENCOUNTER 2019-11-16 17:27 | Emergency (ER) | payer BC, SELFPAY ==
[2017-09-29 14:27] VITALS: BMI 32.5
[2019-11-06 09:00] VITALS: BMI 30.6
[2019-11-16] VITALS (7 sets, daily range): BP systolic 97–141; BP diastolic 66–96; PULSE 55–193; RESP 16–18; TEMP 36.6; O2SAT 94–98; BMI 29.2
--- NOTE | 2019-11-16 17:43 | EKG12_ITS ---
Test Reason : CP Blood Pressure : / mmHG Vent. Rate : 190 BPM Atrial Rate : 115 BPM P-R Int : 120 ms QRS Dur : 180 ms QT Int : 300 ms P-R-T Axes : 000 -34 269 degrees QTc Int : 533 ms Ventricular Tachycardia Left axis deviation Left bundle branch block Abnormal ECG Confirmed by NAKIA MOREAU, LAURE ([id number]), newspaper photo editor AZALIA DANIEL ([id number]) on 11/19/2019 12:16:06 PM Referred By: JV Confirmed By:LAURE YEE MD
--- NOTE | 2019-11-16 17:50 | RAD_ITS ---
STUDY: X-RAY CHEST REASON FOR EXAM: Male, 59 years old. chest pain, patient has heart monitor on front of chest TECHNIQUE: Single AP portable view of the chest. COMPARISON: None. FINDINGS: There is hyperinflation of the lungs consistent with chronic obstructive lung disease (COPD). Lungs are clear. There is no demonstrated pleural abnormality. Normal size heart. Normal mediastinum and barron. Normal visualized pulmonary arteries. Normal visualized aortic arch and descending thoracic aorta. Normal visualized thoracic spine. Normal visualized ribs, clavicles, and shoulders. There is no demonstrated abnormality of the visualized soft tissue structures of the upper abdomen. RAD/Chest 1 View (Portable) IMPRESSION: Normal x-ray examination of the chest. Electronically Signed: Delta Salgado DO at 18:19 EST Tel , Service support ,
[2019-11-16] MEDS: Aspirin 81 MG TAB.CHEW 324 MG PO (17:56)
[2019-11-16 17:59] LABS: Absolute Lymphocyte Count 3.25 X10^3/uL (0.83-4.51); Absolute Neutrophil Count 6.4 X10^3/uL (2.0-7.7); Basophil# 0.06 X10^3/uL; Basophil% 0.5 % (0-1); Eosinophils% 2.7 % (0-5); Hematocrit 41.4 % (40-54); Lymphocyte # 3.25 X10^3/ul (4.0); Mean Corp Hgb Conc 33.8 g/dL (32-36); Mean Corpuscular Hgb 31.7 pg (27.0-32.0); Mean Corpuscular Volume 93.7 fL (80-94); Mean Platelet Vol. 11.7 fl (6.2-12.0); Monocyte# 1.13 X10^3/uL; Monocyte% 10.1 % (0-10); NRBC Flagged by Analyzer 0 % (0-5); Neutrophil # 6.42 X10^3/uL (2.7-7.7); Neutrophil % 57.4 % (47-70); Platelet Count 201 K/mm3 (150-450); RBC Distribution Width CV 12.9 % (11.6-14.6); RBC Distribution Width SD 44.6 fl (35.1-43.9); Red Blood Count 4.42 M/mm3 (4.6-6.2); White Blood Count 11.2 K/mm3 (4.4-11.0)
[2019-11-16] MEDS: 0.9% Normal Saline 1,000 ML 100 ML IV (18:12)
--- NOTE | 2019-11-16 18:16 | ED.VIS.GEN ---
History of Present Illness Chief Complaint: Chest Pain Informant: Patient Onset: Today Narrative: Patient presents for sudden onset of midsternal chest pain 1 hour prior to arrival. States was moving firewood when symptoms occurred. No radicular symptoms. No dyspnea. No lightheaded symptoms. Reports history of UT 2 to 3 years ago with total of [address] Vora. States he has cardiomyopathy, he had a cath approximately a week ago and loop recorder replaced. He states he was placed on additional medications. He states there is discussion for an AICD. In triage EKG found to be in V. tach brought directly to a room. Reevaluation of records 9 days ago had a heart catheter diagnostic noted a widely patent stent in the left circumflex, RCA, PDA. He had ejection fraction of 25 to 30%. He was placed on Imdur for blood pressure control. He had loop recorder to evaluate frequency of his PVCs. Prior similar symptoms: Yes Past Medical History - Allergies and Home Meds Allergies/Adverse Reactions: Allergies No Known Allergies Allergy (Verified 11/16/19 17:29) Primary Care Physician: Reagan Soto MD [Primary Care Provider] - Past Medical History: - - Hypertension, diabetes, hypercholesterolemia, coronary disease, [place] Surgical History: - - Cystoscopy and treatment for bladder cancer, lumbar discectomy Smoking Status: Former smoker - Family History Maternal Family History: Family History (Last Reviewed 05/03/19 @ 15:57 by Lenora Godinez) Mother CVA (cerebral vascular accident) Father Diabetes Heart disease Family History: Reports: Stroke Paternal Family History: Family History (Last Reviewed 05/03/19 @ 15:57 by Lenora Godinez) Mother CVA (cerebral vascular accident) Father Diabetes Heart disease Family History: Reports: Diabetes, Heart Disease Review of Systems General: Denies: Chills, Fever, Sweats Eyes: Denies: Visual changes - bilaterally, Diplopia ENT: Denies: Rhinorrhea, Sore throat Cardiovascular: Reports: Chest pain. Denies: Palpitations, Heart racing Respiratory: Denies: Dyspnea, Cough, Dyspnea on exertion Gastrointestinal: Denies: Abdominal pain, Nausea, Vomiting, Diarrhea, Melena, Hematochezia Genitourinary: Denies: Dysuria, Hematuria, Frequency Musculoskeletal: Denies: Back pain, Extremity Pain Skin: Denies: Rash, Wounds Neurological: Denies: Headache, Weakness, Numbness Physical Exam Vital Signs/Narrative: Vital Signs Temp Pulse Resp BP Pulse Ox 11/16/19 18:09 193 H 16 117/93 H 97 11/16/19 17:51 141 H 16 117/93 H 96 11/16/19 17:30 97.8 F 69 16 97/74 94 Inital Vital Signs reviewed: Yes General: Well nourished, Well developed, No Acute Distress Head: Normocephalic, Atraumatic Eyes: Perrl, EOMI ENT: Moist mucous membranes, No rhinorrhea Neck: Supple, Nontender Cardiovascular: No murmurs, Tachycardia Respiratory: No distress, CTA bilaterally, Chest nontender Abdomen: Soft, Nontender, Nondistended, Normal bowel sounds Back: Nontender, Normal Inspection Extremities: Nontender, No edema Skin: Normal color, No rash Neurological: Alert, Oriented x3, Cranial nerves II-XII grossly intact, Normal Strength, Normal Sensation Psychological: Normal affect, Normal Mood Diagnostic/Tx/Re-eval Clinical Impression(s) from Imaging Studies Chest X-Ray 11/16/19 17:50 IMPRESSION: Normal x-ray examination of the chest. Electronically Signed: Delta Salgado DO at 18:19 EST Tel , Service support , Abnormal Lab Results 11/16/19 11/16/19 11/16/19 17:45 17:45 17:45 WBC 11.2 H RBC 4.42 L Hgb 14.0 Hct 41.4 MCV 93.7 MCH 31.7 MCHC 33.8 RDW Std Deviation 44.6 H RDW Coeff of Arnie 12.9 Plt Count 201 MPV 11.7 Immature Gran % (Auto) 0.300 Neut % (Auto) 57.4 Lymph % (Auto) 29.0 [place] % (Auto) 10.1 H Eos % (Auto) 2.7 Baso % (Auto) 0.5 Absolute Neuts (auto) 6.4 Absolute Lymphs (auto) 3.25 Nucleated RBC % 0 PT 14.4 INR 1.1 APTT 44.9 H Sodium 139 Potassium 3.9 Chloride 106 Carbon Dioxide 26.0 Anion Gap 7 BUN 21 H Creatinine 0.99 Estim Creat Clear Calc 100.00 Est GFR (MDRD) Af Amer 99 Est GFR (MDRD) Non-Af 82 BUN/Creatinine Ratio 21.2 H Glucose 197 H Calcium 8.9 Magnesium 2.1 Troponin I 0.022 TSH 4.27 H Free T4 11/16/19 17:45 WBC RBC Hgb Hct MCV MCH MCHC RDW Std Deviation RDW Coeff of Arnie Plt Count MPV Immature Gran % (Auto) Neut % (Auto) Lymph % (Auto) [place] % (Auto) Eos % (Auto) Baso % (Auto) Absolute Neuts (auto) Absolute Lymphs (auto) Nucleated RBC % PT INR APTT Sodium Potassium Chloride Carbon Dioxide Anion Gap BUN Creatinine Estim Creat Clear Calc Est GFR (MDRD) Af Amer Est GFR (MDRD) Non-Af BUN/Creatinine Ratio Glucose Calcium Magnesium Troponin I TSH Free T4 0.91 - EKG Initial EKG Interpretation: V-Tachycardia - Ventricular tachycardia rate of 190. EKG September 17, 2018 was normal sinus there is interventricular delay no bundle branch block was noted. - Medical Decision Making Patient present with chest pain found to be in ventricular tachycardia rate of 190, blood pressure in the room systolic 110s. Labs were ordered, he is ordered for Anastacio bolus 150 mg with a drip to follow. Upon giving the bolus he converted back down his normal sinus rhythm heart rate in the 70s. Blood pressure improved systolic 140s. Labs obtained normal potassium, magnesium, TSH slightly elevated subsequent T4 was normal. Clinically was improving. Troponin 0 0.022. He was given aspirin due to his chest pain symptoms. After evaluation of his cath report recommendations by cardiology recommending referral for an AICD, I spoke with by covering boat diesel motor mechanic, Dr. Stevens, he does not do AICDs and recommended transfer. Spoke with patient and family, updated, discussed with [facility], he is accepted to cardiology service under Dr. Leach. Patient remains on amnio drip heart rate low was seen at 49 however normal sinus blood pressure stable, he had interim short run of nonsustained V. tach lasting 7 beats that was transient. He will be transferred to [facility] for further management. - Critical Care Time Critical care time (excluding procedures): 30-74 minutes, Discussing w/Patient &/or Family/Telephone Services Sales Representative, Discussing w/Consultants, Arranging Admission or Transfer ED Disposition - Plan for ED Patient: Disposition: [facility] Diagnosis: Ventricular tachycardia, History of cardiomyopathy Referrals: Reagan Soto MD [Primary Care Provider] -
[2019-11-16 18:21] LABS: International Normalized Ratio 1.1; Prothrombin Time (Protime)PT. 14.4 SECONDS (11.7-14.9)
[2019-11-16 18:22] LABS: Partial Thromboplast Time 44.9 Seconds (24.1-36.2)
[2019-11-16 18:25] LABS: Anion Gap 7 (5-15); BUN 21 mg/dL (7-18); BUN/Creat Ratio 21.2 RATIO (10-20); Calcium,Total 8.9 mg/dL (8.5-10.1); Chloride 106 mmol/L (98-107); Creatinine, Serum 0.99 mg/dL (0.70-1.30); EST Glomerular Filtration Rate 82 mL/min (>60); Est Glom Filt Rate - Afr Amer 99 mL/min (>60); Glucose 197 mg/dL (74-106); Magnesium 2.1 mg/dL (1.6-2.6); Potassium 3.9 mmol/L (3.5-5.1); Sodium Level 139 mmol/L (136-145); Thyroid Stim Hormone (TSH) 4.27 uIU/mL (0.358-3.74)
--- NOTE | 2019-11-16 18:25 | ED.RN ---
PATIENT BACK IN SINUS RHYTHM. DR. AIKEN NOTIFIED. PER DR. AIKEN REPEAT EKG NOT NEEDED AT THIS TIME.
[2019-11-16 18:53] LABS: T4 Free Direct 0.91 ng/dL (0.76-1.46)
--- NOTE | 2019-11-16 20:48 | NURSING ---
ACCEPTED BY DR. BLACKWELL Formerly [facility] REPORT
== END 2019-11-16 21:45 | disposition short-term general hospital (02) ==
PROVIDERS: Emergency Provider Emergency Medicine; PCP Family Medicine
DX: I47.2 Ventricular tachycardia (principal); I42.9 Cardiomyopathy, unspecified; E11.9 Type 2 diabetes mellitus without complications; E78.00 Pure hypercholesterolemia, unspecified; I10 Essential (primary) hypertension; I25.2 Old myocardial infarction; Z85.51 Personal history of malignant neoplasm of bladder; Z79.82 Long term (current) use of aspirin; Z79.84 Long term (current) use of oral hypoglycemic drugs; Z79.899 Other long term (current) drug therapy; Z87.891 Personal history of nicotine dependence
CPT/HCPCS: 71045; 80048; 83735; 84439; 84443; 84484; 85025; 85610; 85730; 93005; 96365; 96366; 96375; 99285; J7030; A4216

== ENCOUNTER 2019-11-25 13:03 | Emergency (ER) | payer BC, SELFPAY ==
[2017-09-29 14:27] VITALS: BMI 32.5
[2019-11-16 17:30] VITALS: BMI 29.2
[2019-11-25] VITALS (13 sets, daily range): BP systolic 70–157; BP diastolic 52–93; PULSE 60–66; RESP 12–24; TEMP 36.6; O2SAT 94–100; BMI 30.9
--- NOTE | 2019-11-25 13:19 | EKG12_ITS ---
Test Reason : CP Blood Pressure : / mmHG Vent. Rate : 060 BPM Atrial Rate : 060 BPM P-R Int : 126 ms QRS Dur : 176 ms QT Int : 484 ms P-R-T Axes : 000 254 033 degrees QTc Int : 484 ms AV dual-paced rhythm Biventricular pacemaker detected Abnormal ECG Confirmed by NAKIA MOREAU, LAURE ([id number]), editor publications WILFREDO PASCUAL ([id number]) on 11/27/2019 8:22:15 AM Referred By: Reagan Soto Confirmed By:LAURE YEE MD
--- NOTE | 2019-11-25 13:20 | RAD_ITS ---
STUDY: X-RAY CHEST REASON FOR EXAM: Male, 59 years old. CHEST PAIN STARTING TODAY TECHNIQUE: Single AP portable view of the chest. COMPARISON: November 16, 2019 FINDINGS: The left-sided pacer defibrillator. The leads are overlying the right atrium and ventricle. The lungs are clear and expanded. There is no demonstrated pleural abnormality. There is mild cardiac enlargement. Normal mediastinum and barron. Normal visualized pulmonary arteries. Normal visualized aortic arch and descending thoracic aorta. There are diffuse degenerative changes of the visualized thoracic spine. Normal visualized ribs, clavicles, and shoulders. There is no demonstrated abnormality of the visualized soft tissue structures of the upper abdomen. RAD/Chest 1 View (Portable) IMPRESSION: No evidence of acute focal infiltrate. Improved aeration of the right lower lobe when compared to prior study. Electronically Signed: Holly Lechuga MD at 14:05 EST Tel , Service support ,
[2019-11-25] MEDS: Aspirin 81 MG TAB.CHEW 324 MG PO (13:30)
--- NOTE | 2019-11-25 13:31 | ED.VISSUMM ---
- ER Visit Summary Date of Service: 11/25/19 Chief Complaint: Chest pain History of Present Illness: The patient is a 59 M history of recent pacemaker placed on Tuesday in [place]. He is a noncompliant diabetic with a history of CAD, TN and 3 cardiac stents. Patient states this morning he had chest pain midsternal. Without radiation. Mild dyspnea. No diaphoresis or nausea. This did not occur with exertion. Reportedly with a cardiac catheterization in September 1 month ago and heart cath was stable. He had no new stents. He is on both Plavix and aspirin. Physical Examination: Older male no acute distress. Vital signs stable afebrile. H EENT exam unremarkable. Neck nontender no JVD lungs clear to auscultation. Heart regular rate and rhythm paced. Rate about 60. Is a newly placed pacemaker left chest wall. Incision is dry and clean. No signs of infection. Small bruising. Abdomen soft nontender. Extremities moves all 4. Calves nontender without edema or cords. Neurologically is awake and alert with no focal motor deficits. Test Results: EKG shows a paced rhythm rate of 60. EKG was done with the same again paced R waves in the context of 60. Chest x-ray shows normal cardiac silhouette. No effusion. No signs of cardiomegaly. And a left-sided pacer defibrillator. CBC showed white count of 15. Hemoglobin 13. No bands. Electrolytes unremarkable BUN 20 creatinine 0.9. Normal gap. Troponin normal. D-dimer elevated 2.2. Due to the elevated d-dimer and the chest pain and recent admission a CTA of his chest was done. Read by radiologist reviewed by me shows no PE. No dissection. No acute abnormality. Third EKG done again shows no TN. Paced rhythm rate 82. Emergency Department Course and Treatment: Patient undergo a cardiac work-up. Treated with p.o. aspirin if he has not taken his normal aspirin dose at home. Treatment Plan: Repeat exam. Patient did get hypotensive prior to going to CAT scan. He is been given a liter of normal saline and he is responding systolic but blood pressure is currently on 110/60. He was also given morphine and Zofran for his chest pain. He may be given Nitropaste once he is reevaluated after the morphine. Currently this is cardiac chest pain completely otherwise. Discussed that with he and his family. Although I spoke to the hospitalist who is in the room evaluating the patient this time for admission Disposition: Admission Impression: Acute chest pain uncertain etiology History of CAD with stents History of recently placed pacemaker This note was generated with [employer] dictation software. It may contain incorrect words, spelling, and punctuation that were not noted in review of the chart prior to signing ED Disposition - Plan for ED Patient: Referrals: Reagan Soto MD [Primary Care Provider] -
[2019-11-25 13:36] LABS: Absolute Lymphocyte Count 1.37 X10^3/uL (0.83-4.51); Absolute Neutrophil Count 12.2 X10^3/uL (2.0-7.7); Basophil# 0.05 X10^3/uL; Basophil% 0.3 % (0-1); Eosinophil# 0.31 X10^3/uL; Hematocrit 39.6 % (40-54); Hemoglobin 13.3 g/dL (13.0-16.5); Lymphocyte # 1.37 X10^3/ul (4.0); Mean Corp Hgb Conc 33.6 g/dL (32-36); Mean Corpuscular Hgb 31.7 pg (27.0-32.0); Mean Corpuscular Volume 94.3 fL (80-94); Mean Platelet Vol. 10.8 fl (6.2-12.0); Monocyte# 1.21 X10^3/uL; NRBC Flagged by Analyzer 0 % (0-5); Neutrophil # 12.17 X10^3/uL (2.7-7.7); Neutrophil % 80.3 % (47-70); Platelet Count 221 K/mm3 (150-450); RBC Distribution Width CV 12.9 % (11.6-14.6); RBC Distribution Width SD 44.4 fl (35.1-43.9); White Blood Count 15.2 K/mm3 (4.4-11.0)
[2019-11-25 13:47] LABS: D-Dimer Quantitative (DVT/PE) 2.22 FEU/ug/m (0.27-0.49)
--- NOTE | 2019-11-25 13:48 | ED.RN ---
notified Dr. Guerra of d-dimer 2.
[2019-11-25 13:49] LABS: Anion Gap 8 (5-15); BUN 28 mg/dL (7-18); BUN/Creat Ratio 29.8 RATIO (10-20); Calcium,Total 8.8 mg/dL (8.5-10.1); Chloride 107 mmol/L (98-107); Creatinine, Serum 0.94 mg/dL (0.70-1.30); EST Glomerular Filtration Rate 87 mL/min (>60); Est Glom Filt Rate - Afr Amer 105 mL/min (>60); Glucose 150 mg/dL (74-106); Potassium 4.4 mmol/L (3.5-5.1); Sodium Level 139 mmol/L (136-145)
--- NOTE | 2019-11-25 14:13 | EKG12_ITS ---
Test Reason : Blood Pressure : / mmHG Vent. Rate : 060 BPM Atrial Rate : 060 BPM P-R Int : 104 ms QRS Dur : 174 ms QT Int : 492 ms P-R-T Axes : 000 211 032 degrees QTc Int : 492 ms Atrial-sensed ventricular-paced rhythm with frequent AV dual-paced complexes Biventricular pacemaker detected Abnormal ECG Confirmed by NAKIA MOREAU, LAURE ([id number]), news copy editor FERNANDEZ CHAMBERLAIN ([id number]) on 11/27/2019 11:01:54 AM Referred By: Reagan Soto Confirmed By:LAURE YEE MD
--- NOTE | 2019-11-25 14:16 | CT_ITS ---
STUDY: CTA CHEST REASON FOR EXAM: Male, 59 years old. Sternal chest pain, hypotensive, 6 days post pacemaker implant. Hx coronary stent. RADIATION DOSAGE (If Supplied By Facility): CTDIvol = ( 15.04 ) mGy, DLP = ( 569.04 ) mGycm TECHNIQUE: The examination was performed with the intravenous administration of 100mL Isovue-370. Post-processing of the angiographic images was performed, with multiplanar reformation and 3D reconstruction. Individualized dose optimization techniques were used for this CT. COMPARISON: April 21, 2019 FINDINGS: Normal enhancement of the main pulmonary artery and right and left pulmonary arteries. Normal enhancement of the bilateral peripheral pulmonary arteries. There is no demonstrated pulmonary embolism. Normal thoracic aorta and visualized great vessels. There is no demonstrated aortic dissection. There are calcifications of the coronary arteries. There is a new pericardial effusion measuring up to 1.7 cm anteriorly. There is a small serpiginous focus of air within the right anterior chest wall likely secondary to recent intervention. There is a cardiac pacer device in place; the leads create beam hardening artifact and obscure anatomic detail. Normal mediastinum. Normal hilar regions. Normal visualized trachea and bronchi. There is grossly stable atelectasis and/or scarring within the right lower and right middle lobe. There is no focal consolidation. Normal chest wall structures. There are degenerative changes of thoracic spine. Normal visualized upper abdomen. CT/CTA Chest W/WO Contrast IMPRESSION: New pericardial effusion. No demonstrated pulmonary embolism or arterial dissection. Atherosclerosis. Electronically Signed: Irena Garza MD at 15:04 EST Tel , Service support ,
[2019-11-25] MEDS: 0.9% Normal Saline 1,000 ML 999 ML IV ×2 (14:17→17:22)
[2019-11-25] MEDS: Ondansetron 4 MG/2 ML Vial IV ×2 (15:05→17:50)
[2019-11-25] MEDS: Morphine 4 MG/ML Syringe IV ×3 (15:05→17:42)
[2019-11-25] MEDS: Nitroglycerin SL (ED/IMG/CATH) 0.4 MG TABLET SUBLINGUAL (15:31)
--- NOTE | 2019-11-25 16:30 | PCM.CONS.GEN ---
Problem List (1) Pericardial effusion Status: Acute (2) Hx of cardiac pacemaker Status: Acute Comment: a few days ago at [facility] (3) Severe left ventricular hypertrophy Status: Chronic (4) Dilated cardiomyopathy Status: Chronic Comment: EF 25-30% in October 2019 (5) Hypersomnia Status: Chronic (6) Premature ventricular contractions Status: Chronic (7) History of left heart catheterization Status: Chronic Comment: Global LV systolic dysfunction- Severe; LVEF: by LV gram 25-30 %; Non obstructive coronary arteries. Widely patent LCX, RCA and PDA stents with minimal ISR. Non-obstructive disease of proximal LAD. Sleep study to eval for TIFFANIE. Refer to Dr Booth for AICD. 30 day event monitor to quantify PVCs and eval for wide complex tachycardia. Per BORIS @ [facility]. (8) Chest pain Status: Acute (9) H/O lumbar discectomy Status: Chronic (10) Bladder cancer Status: Chronic (11) History of coronary artery stent placement Status: Chronic Comment: BERT to LCX 08/2017; staged complex PCI with BERT to PDA and RCA 09/2017; (12) Atherosclerotic heart disease of [place] coronary artery with other forms of angina pectoris Status: Chronic Comment: BERT to LCX 08/2017; staged complex PCI with BERT to PDA and RCA 09/2017; (13) Diabetes mellitus, type II Status: Chronic Reason for Consult Date of Consultation: 11/25/19 Reason for Consultation: chest pain History of Present Illness: The patient is a 59 year old M with a past medical history of hypertension, diabetes mellitus, coronary artery disease, dyslipidemia, tobacco dependence in remission, PTCA/BERT x3 stents, ischemic cardiomyopathy, recent pacemaker at [facility] earlier this week who [facility] c/o chest pain that started at 9 AM this morning when he was getting up from his recliner and has been constant since then. It did not radiate. It was associated with shortness of breath. He denied nausea and had no vomiting. He denied palpitations. He denied lightheadedness. The pain is located in the upper sternal area. The pain was unchanged after 4 mg IV MS and it was unchanged after 1 SL NTG. The HR increased from 62 to 79 after NTG. The only thing that helps with pain is leaning forward. The pain worsens when lying flat. Troponin was negative and the CXR is unremarkable. D-Dimer was elevated and a CTA was done that showed no PE but, it did shows a new pericardial effusion measuring 1.7cm anteriorly. Past Medical History Past Medical History (Chronic Problems): Chronic Problems (Last Reviewed 11/25/19 @ 21:55 by Tabitha Bobo DO) Diabetes mellitus, type II (Chronic) Severe left ventricular hypertrophy (Chronic) Dilated cardiomyopathy (Chronic) EF 25-30% in October 2019 Hypersomnia (Chronic) Premature ventricular contractions (Chronic) History of left heart catheterization (Chronic 11/07/19) Global LV systolic dysfunction- Severe; LVEF: by LV gram 25-30 %; Non obstructive coronary arteries. Widely patent LCX, RCA and PDA stents with minimal ISR. Non-obstructive disease of proximal LAD. Sleep study to eval for TIFFANIE. Refer to Dr Booth for AICD. 30 day event monitor to quantify PVCs and eval for wide complex tachycardia. Per BORIS @ [facility]. H/O lumbar discectomy (Chronic) Bladder cancer (Chronic) History of coronary artery stent placement (Chronic) BERT to LCX 08/2017; staged complex PCI with BERT to PDA and RCA 09/2017; Atherosclerotic heart disease of [place] coronary artery with other forms of angina pectoris (Chronic) BERT to LCX 08/2017; staged complex PCI with BERT to PDA and RCA 09/2017; Medical History: Medical History (Last Reviewed 11/25/19 @ 21:55 by Tabitha Bobo DO) Dilated cardiomyopathy (Chronic) I42.0 EF 25-30% in October 2019 Hypersomnia (Chronic) G47.10 Premature ventricular contractions (Chronic) I49.3 Chest pain (Acute) R07.9 Bladder cancer (Chronic) C67.9 Atherosclerotic heart disease of [place] coronary artery with other forms of angina pectoris (Chronic) I25.118 BERT to LCX 08/2017; staged complex PCI with BERT to PDA and RCA 09/2017; NSTEMI (non-ST elevated myocardial infarction) I21.4 Bradycardia (Resolved) R00.1 Chest pain (Resolved) R07.9 Shortness of breath (Resolved) R06.02 Sustained ventricular tachycardia (Resolved) I47.2 S/P cardioversion 08/2017 in ED; Tobacco abuse (Resolved) Z72.0 Unstable angina (Resolved) Allergies No Known Allergies Allergy (Verified 11/25/19 13:03) Home Medications: Ambulatory Orders Medication Instructions Recorded Aspirin E.C. [Ecotrin] 81 mg PO DAILY@0800 tab 09/15/17 hydrochlorothiazide 25 mg tablet 25 mg PO DAILY 10/02/18 metformin 500 mg tablet 500 mg PO BID 03/08/19 clopidogrel 75 mg tablet 75 mg PO DAILY #30 tab 08/10/19 lisinopril 40 mg tablet 40 mg PO DAILY #90 tab 09/03/19 carvedilol 25 mg tablet 25 mg PO BID 09/13/19 rosuvastatin 40 mg tablet 40 mg PO DAILY 09/13/19 Amiodarone HCl 400 mg PO TID 11/25/19 Surgical History: Surgical History (Last Reviewed 11/25/19 @ 21:55 by Tabitha Bobo DO) History of left heart catheterization (Chronic) Onset Date: 11/07/19 Z98.890 Global LV systolic dysfunction- Severe; LVEF: by LV gram 25-30 %; Non obstructive coronary arteries. Widely patent LCX, RCA and PDA stents with minimal ISR. Non-obstructive disease of proximal LAD. Sleep study to eval for TIFFANIE. Refer to Dr Booth for AICD. 30 day event monitor to quantify PVCs and eval for wide complex tachycardia. Per BORIS @ [facility]. H/O lumbar discectomy (Chronic) Z98.890 History of coronary artery stent placement (Chronic) Z95.5 BERT to LCX 08/2017; staged complex PCI with BERT to PDA and RCA 09/2017; Surgical History: - - Cystoscopy and treatment for bladder cancer, lumbar discectomy. PM implantation.....probably an AICD (pt is not sure) Psychiatric History: No pertinent psych hx Lives: Spouse/ Significant Other Smoking Status: Former smoker - smoked for 40 years Tobacco Use: Non-smoker Alcohol: Rare Drugs: None - *Family History Maternal Family History: Family History (Last Reviewed 11/25/19 @ 21:55 by Tabitha Bobo DO) Mother CVA (cerebral vascular accident) Father Diabetes Heart disease History Items: Stroke Paternal Family History: Family History (Last Reviewed 11/25/19 @ 21:55 by Tabitha Bobo DO) Mother CVA (cerebral vascular accident) Father Diabetes Heart disease History Items: Diabetes, Heart Disease Review of Systems Constitutional: Denies: Chills, Fever, Weight Change HEENT: Denies: Head Aches, Sinus Congestion, Sinus Drainage Cardiovascular: Reports: Chest Pain, Edema - ankles. Denies: Palpitations Respiratory: Denies: Cough, Shortness of breath at rest, Sputum production Gastrointestinal: Denies: Abdominal Pain, Nausea, Vomiting Genitourinary: Denies: Dysuria Musculoskeletal: Denies: Joint Pain, Joint Tenderness Skin: Denies: Rash, Wounds Neurological: Denies: Numbness, Tingling, Focal weakness Psychiatric: Denies: Anxiety, Depression, Homicidal Ideations, Suicidal Ideations Hematologic/ Lymphatic: Denies: Easy Bruising, Easy Bleeding - Physical Exam Vitals/I&O's: Vital Signs Temp Pulse Resp BP Pulse Ox 97.8 F 62 18 105/75 97 11/25/19 13:04 11/25/19 16:07 11/25/19 16:07 11/25/19 16:07 11/25/19 16:07 Oxygen Flow Rate (L/min) 3 Oxygen Delivery Method Nasal Cannula Weight: 254 lb 6.615 oz Body Mass Index (BMI) 30.9 Intake and Output for Last 24 Hours 11/23/19 11/24/19 11/25/19 23:59 23:59 23:59 Intake Total 1000 / 1000 Balance 1000 / 1000 General: Alert, Oriented x3, Cooperative, Well developed, Well nourished, - - appears to be in distress. HEENT: Atraumatic, PERRLA, EOMI, Normocephalic Oral: Dry Mucosa Neck: Supple, No Nodes, Trachea Midline, - - Carotids have brisk upstroke and good pulse volume bilaterally. Lungs: Clear to auscultation - but diminished, No wheeze, No rales, Diminished Cardiovascular: Regular rate, Regular Rhythm, Normal S1, Normal S2, No murmurs, No Ectopic Activity - He is completely paced, - - the heart sounds are very distant. The chest pain gets better when he leans forward. I do not hear a MM or a rub or a gallop. Abdomen: Bowel Sounds Present, Soft, Non Tender, Non-Distended, - - the abdomen is a little mottled Extremities: No clubbing, No cyanosis, No edema, - - radial pulses are 3/3 and the DP are 2/3 BL Skin: No breakdown Musculoskeletal: No Muscle Wasting Neurological: Cranial nerves II-XII grossly intact, Neuro grossly intact Laboratory Results 11/25/19 13:22: WBC 15.2 H, RBC 4.20 L, Hgb 13.3, Hct 39.6 L, MCV 94.3 H, MCH 31.7, MCHC 33.6, RDW Std Deviation 44.4 H, RDW Coeff of Arnie 12.9, Plt Count 221, MPV 10.8, Immature Gran % (Auto) 0.400, Neut % (Auto) 80.3 H, Lymph % (Auto) 9.0 L, [place] % (Auto) 8.0, Eos % (Auto) 2.0, Baso % (Auto) 0.3, Absolute Neuts (auto) 12.2 H, Absolute Lymphs (auto) 1.37, Nucleated RBC % 0 11/25/19 13:22: Sodium 139, Potassium 4.4, Chloride 107, Carbon Dioxide 24.0, Anion Gap 8, BUN 28 H, Creatinine 0.94, Estim Creat Clear Calc 102.60, Est GFR (MDRD) Af Amer 105, Est GFR (MDRD) Non-Af 87, BUN/Creatinine Ratio 29.8 H, Glucose 150 H, Calcium 8.8, Troponin I < 0.015 11/25/19 13:22: D-Dimer Quant (PE/DVT) 2.22 H* Assessment/Plan All Active Problems (Last Reviewed 11/25/19 @ 21:55 by Tabitha Bobo, DO) Pericardial effusion (Acute) Hx of cardiac pacemaker (Acute) Chest pain (Acute) Bradycardia (Resolved) Chest pain (Resolved) Shortness of breath (Resolved) Sustained ventricular tachycardia (Resolved) Tobacco abuse (Resolved) Unstable angina (Resolved) Impressions 1. Chest pain with new pericardial effusion anteriorly with recent PM placement - need to consider the possibility of hemorrhagic effusion. Discussed with Dr. Easley, will recommend transfer to [facility] where there is cardiothoracic surgeon if necessary. VSS. Heart sounds are very distant but, he has good radial pulse and pulse ox is good on O2. Code Visit Inpatient E&M: 84626 Subs Hosp L3
--- NOTE | 2019-11-25 16:58 | ED.RN ---
[facility] CALLED AND SAID THAT THEY EXCEPTED THE PATIENT BUT ARE WAITING ON DISCHARGES.
== END 2019-11-25 18:01 | disposition short-term general hospital (02) ==
LOC: ED 13:30
PROVIDERS: Emergency Provider Emergency Medicine; PCP Family Medicine; Referring Provider Family Medicine
DX: R07.9 Chest pain, unspecified (principal); R79.89 Other specified abnormal findings of blood chemistry; I25.118 Atherosclerotic heart disease of native coronary artery with other forms of angina pectoris; I25.2 Old myocardial infarction; E11.9 Type 2 diabetes mellitus without complications; Z91.14 Patient's other noncompliance with medication regimen; E78.00 Pure hypercholesterolemia, unspecified; I10 Essential (primary) hypertension; I42.0 Dilated cardiomyopathy; I25.5 Ischemic cardiomyopathy; I49.3 Ventricular premature depolarization; Z85.51 Personal history of malignant neoplasm of bladder; Z95.810 Presence of automatic (implantable) cardiac defibrillator; Z79.02 Long term (current) use of antithrombotics/antiplatelets; Z79.82 Long term (current) use of aspirin; Z79.84 Long term (current) use of oral hypoglycemic drugs; Z79.899 Other long term (current) drug therapy; Z87.891 Personal history of nicotine dependence
CPT/HCPCS: 71045; 71275; 80048; 84484; 85025; 85379; 93005; 96361; 96374; 96375; 96376; 99285; J7030; Q9967; A4216; J2405

== ENCOUNTER → 2019-12-19 11:24 | Outpatient (CLI) | payer BC, SELFPAY ==
[2017-09-29 14:27] VITALS: BMI 32.5
[2019-11-25 13:04] VITALS: BMI 30.9
--- NOTE | 2019-12-19 11:30 | RAD_ITS ---
STUDY: X-RAY - LEFT SHOULDER REASON FOR EXAM: Male, 59 years old. pt had a pacemaker put in last month, left shoulder has been aching since then TECHNIQUE: 4 view(s) of the shoulder. COMPARISON: None. FINDINGS: There is mild degenerative arthrosis of the glenohumeral articulation. Normal acromioclavicular joint. Normal acromion. Multifocal small calcium deposits in the insertion of the rotator cuff tendon. Normal scapula. Pacemaker leads placed through the left subclavian approach appearing unremarkable. RAD/Shoulder min 2 Views IMPRESSION: Mild degenerative arthrosis of the glenohumeral joint. Normal acromioclavicular joint. Chronic calcific deposits of the rotator cuff insertion. Electronically Signed: Jessy Garibay MD at 23:38 EST , Service support ,
== END ==
PROVIDERS: PCP Family Medicine; Referring Provider Family Medicine; Visit Provider Family Medicine
DX: M25.512 Pain in left shoulder (principal)
CPT/HCPCS: 73030

== ENCOUNTER → 2020-04-04 11:17 | Outpatient (CLI) | payer BC, SELFPAY ==
[2017-09-29 14:27] VITALS: BMI 32.5
[2019-11-25 13:04] VITALS: BMI 30.9
[2020-04-04 15:19] LABS: Absolute Lymphocyte Count 1.53 X10^3/uL (0.83-4.51); Absolute Neutrophil Count 7.6 X10^3/uL (2.0-7.7); Basophil# 0.05 X10^3/uL; Basophil% 0.5 % (0-1); Eosinophil# 0.22 X10^3/uL; Eosinophils% 2.1 % (0-5); Hematocrit 43.3 % (40-54); Hemoglobin 14.1 g/dL (13.0-16.5); Lymphocyte # 1.53 X10^3/ul (4.0); Lymphocyte % 14.8 % (19-41); Mean Corp Hgb Conc 32.6 g/dL (32-36); Mean Corpuscular Hgb 31.1 pg (27.0-32.0); Mean Corpuscular Volume 95.4 fL (80-94); Mean Platelet Vol. 12.1 fl (6.2-12.0); Monocyte# 0.86 X10^3/uL; Monocyte% 8.3 % (0-10); NRBC Flagged by Analyzer 0 % (0-5); Neutrophil # 7.62 X10^3/uL (2.7-7.7); Neutrophil % 73.9 % (47-70); Platelet Count 183 K/mm3 (150-450); RBC Distribution Width CV 13.6 % (11.6-14.6); RBC Distribution Width SD 47.7 fl (35.1-43.9); Red Blood Count 4.54 M/mm3 (4.6-6.2); White Blood Count 10.3 K/mm3 (4.4-11.0)
[2020-04-04 15:30] LABS: ALB/GLOB Ratio 1.1 RATIO (0.9-2.4); AST(SGOT) 11 U/L (15-37); Alanine Aminotransfer ALT/SGPT 31 U/L (16-61); Albumin, Serum 3.7 g/dL (3.2-5.0); Alkaline Phosphatase 71 U/L (45-117); Anion Gap 6 (5-15); BUN 16 mg/dL (7-18); BUN/Creat Ratio 21.9 RATIO (10-20); Calcium,Total 8.9 mg/dL (8.5-10.1); Chloride 108 mmol/L (98-107); Cholesterol 134 mg/dL (200); Creatinine, Serum 0.73 mg/dL (0.70-1.30); EST Glomerular Filtration Rate 116 mL/min (>60); Est Glom Filt Rate - Afr Amer 140 mL/min (>60); Globulin 3.3 g/dL (2.2-4.2); Glucose 125 mg/dL (74-106); High Density Lipoprotein 42 mg/dL; Potassium 4.2 mmol/L (3.5-5.1); Sodium Level 140 mmol/L (136-145); Triglycerides 103 mg/dL; Very Low Density Lipoprotein 21 mg/dL (5-40)
[2020-04-04 15:43] LABS: Hemoglobin A1c 6.5 % (3.8-5.6)
== END ==
PROVIDERS: PCP Family Medicine; Visit Provider Family Medicine
DX: E78.5 Hyperlipidemia, unspecified (principal); I10 Essential (primary) hypertension; E11.9 Type 2 diabetes mellitus without complications
CPT/HCPCS: 36415; 80053; 80061; 83036; 85025

== ENCOUNTER → 2020-04-11 13:41 | Outpatient (CLI) | payer BC, SELFPAY ==
[2017-09-29 14:27] VITALS: BMI 32.5
[2019-11-25 13:04] VITALS: BMI 30.9
--- NOTE | 2020-04-11 13:47 | CT_ITS ---
STUDY: CT CHEST WITHOUT CONTRAST REASON FOR EXAM: Male, 59 years old. PULMONARY NODULE F/U. Hx of HTN, diabetes, bladder cancer and pacemaker RADIATION DOSAGE (If Supplied By Facility): CTDIvol = ( 19.24 ) mGy, DLP = ( 754.92 ) mGycm TECHNIQUE: Transaxial imaging was performed without the administration of intravenous contrast material. Multiplanar coronal and sagittal images were reformatted. Individualized dose optimization techniques were used for this CT. COMPARISON: Comparison is made with prior study dated April 21, 2019. FINDINGS: Stable interstitial scarring right upper lobe. Stable 2 mm nodule in the right middle lobe with stable scarring in the right middle lobe as well as in the lower lobes more prominent on the right side. There is no demonstrated pleural abnormality. There are calcifications of the coronary arteries. Minimal pericardial thickening. This has improved as compared to prior study. A left-sided dual-chamber pacemaker is seen. Normal mediastinum. Normal hilar regions. Normal unenhanced pulmonary arteries. There is mild atherosclerotic calcification of the aortic arch. There are multi-level degenerative changes of the thoracic spine. There is no demonstrated abnormality of the visualized upper abdomen. CT/Chest without Contrast IMPRESSION: Essentially stable examination except for improvement in the pericardial effusion. Electronically Signed: Dimitry Reed, at 14:33 EDT , Service support ,
== END ==
PROVIDERS: PCP Family Medicine; Referring Provider Family Medicine; Visit Provider Family Medicine
DX: R91.8 Other nonspecific abnormal finding of lung field (principal)
CPT/HCPCS: 71250

== ENCOUNTER → 2020-07-04 15:01 | Outpatient (CLI) | payer BC, SELFPAY ==
[2017-09-29 14:27] VITALS: BMI 32.5
[2020-05-20 15:55] VITALS: BMI 31.5
[2020-07-04 17:56] LABS: Absolute Neutrophil Count 6.5 X10^3/uL (2.0-7.7); Basophil# 0.05 X10^3/uL; Basophil% 0.5 % (0-1); Hematocrit 43.8 % (40-54); Hemoglobin 14.6 g/dL (13.0-16.5); Lymphocyte % 19.5 % (19-41); Mean Corp Hgb Conc 33.3 g/dL (32-36); Mean Corpuscular Hgb 31.5 pg (27.0-32.0); Mean Corpuscular Volume 94.6 fL (80-94); Mean Platelet Vol. 12.3 fl (6.2-12.0); Monocyte# 1.09 X10^3/uL; Monocyte% 11.2 % (0-10); NRBC Flagged by Analyzer 0 % (0-5); Neutrophil # 6.49 X10^3/uL (2.7-7.7); Neutrophil % 66.5 % (47-70); Platelet Count 194 K/mm3 (150-450); RBC Distribution Width CV 13.3 % (11.6-14.6); RBC Distribution Width SD 46.2 fl (35.1-43.9); Red Blood Count 4.63 M/mm3 (4.6-6.2); White Blood Count 9.8 K/mm3 (4.4-11.0)
[2020-07-04 18:08] LABS: ALB/GLOB Ratio 1.1 RATIO (0.9-2.4); AST(SGOT) 16 U/L (15-37); Alanine Aminotransfer ALT/SGPT 35 U/L (16-61); Albumin, Serum 3.8 g/dL (3.2-5.0); Alkaline Phosphatase 88 U/L (45-117); Anion Gap 7 (5-15); BUN 15 mg/dL (7-18); BUN/Creat Ratio 17.5 RATIO (10-20); Calcium,Total 8.6 mg/dL (8.5-10.1); Chloride 104 mmol/L (98-107); Cholesterol 120 mg/dL (200); Creatinine, Serum 0.86 mg/dL (0.70-1.30); EST Glomerular Filtration Rate 96 mL/min (>60); Est Glom Filt Rate - Afr Amer 117 mL/min (>60); Globulin 3.4 g/dL (2.2-4.2); Glucose 142 mg/dL (74-106); Hemoglobin A1c 7.2 % (3.8-5.6); High Density Lipoprotein 40 mg/dL; Potassium 3.9 mmol/L (3.5-5.1); Protein, Total 7.2 g/dL (6.4-8.2); Sodium Level 138 mmol/L (136-145); Thyroid Stim Hormone (TSH) 3.07 uIU/mL (0.358-3.74); Triglycerides 115 mg/dL; Very Low Density Lipoprotein 23 mg/dL (5-40)
== END ==
PROVIDERS: PCP Family Medicine; Referring Provider Family Medicine; Visit Provider Family Medicine
DX: I25.10 Atherosclerotic heart disease of native coronary artery without angina pectoris (principal); E11.9 Type 2 diabetes mellitus without complications
CPT/HCPCS: 36415; 80053; 80061; 83036; 84443; 85025

== ENCOUNTER → 2020-11-04 16:41 | Outpatient (CLI) | payer BC, SELFPAY ==
[2017-09-29 14:27] VITALS: BMI 32.5
[2020-05-20 15:55] VITALS: BMI 31.5
[2020-11-04 18:20] LABS: Absolute Lymphocyte Count 2.03 X10^3/uL (0.83-4.51); Absolute Neutrophil Count 8.6 X10^3/uL (2.0-7.7); Basophil# 0.06 X10^3/uL; Basophil% 0.5 % (0-1); Eosinophil# 0.16 X10^3/uL; Eosinophils% 1.3 % (0-5); Hematocrit 45.2 % (40-54); Hemoglobin 14.7 g/dL (13.0-16.5); Lymphocyte # 2.03 X10^3/ul (4.0); Mean Corp Hgb Conc 32.5 g/dL (32-36); Mean Corpuscular Hgb 30.8 pg (27.0-32.0); Mean Corpuscular Volume 94.6 fL (80-94); Mean Platelet Vol. 11.7 fl (6.2-12.0); Monocyte# 1.05 X10^3/uL; Monocyte% 8.8 % (0-10); NRBC Flagged by Analyzer 0 % (0-5); Neutrophil # 8.59 X10^3/uL (2.7-7.7); Neutrophil % 72.1 % (47-70); Platelet Count 203 K/mm3 (150-450); RBC Distribution Width CV 12.7 % (11.6-14.6); RBC Distribution Width SD 44.4 fl (35.1-43.9); Red Blood Count 4.78 M/mm3 (4.6-6.2); White Blood Count 11.9 K/mm3 (4.4-11.0)
[2020-11-04 18:56] LABS: AST(SGOT) 17 U/L (15-37); Alanine Aminotransfer ALT/SGPT 30 U/L (16-61); Albumin, Serum 3.8 g/dL (3.2-5.0); Alkaline Phosphatase 93 U/L (45-117); Anion Gap 6 (5-15); BUN 25 mg/dL (7-18); BUN/Creat Ratio 29.3 RATIO (10-20); Calcium,Total 8.9 mg/dL (8.5-10.1); Chloride 108 mmol/L (98-107); Cholesterol 119 mg/dL (200); Creatinine, Serum 0.85 mg/dL (0.70-1.30); EST Glomerular Filtration Rate 97 mL/min (>60); Est Glom Filt Rate - Afr Amer 117 mL/min (>60); Globulin 3.7 g/dL (2.2-4.2); Glucose 106 mg/dL (74-106); High Density Lipoprotein 38 mg/dL; Potassium 4.3 mmol/L (3.5-5.1); Protein, Total 7.5 g/dL (6.4-8.2); Sodium Level 138 mmol/L (136-145); Triglycerides 126 mg/dL; Very Low Density Lipoprotein 25 mg/dL (5-40)
[2020-11-04 19:44] LABS: Hemoglobin A1c 6.9 % (3.8-5.6)
== END ==
PROVIDERS: PCP Family Medicine; Referring Provider Family Medicine; Visit Provider Family Medicine
DX: E78.5 Hyperlipidemia, unspecified (principal); E11.9 Type 2 diabetes mellitus without complications; I10 Essential (primary) hypertension
CPT/HCPCS: 36415; 80053; 80061; 83036; 84443; 85025

== ENCOUNTER → 2021-01-14 15:49 | Outpatient (CLI) | payer BC, SELFPAY ==
[2017-09-29 14:27] VITALS: BMI 32.5
[2020-11-24 15:23] VITALS: BMI 30.3
[2021-01-14 18:01] LABS: Absolute Lymphocyte Count 1.86 X10^3/uL (0.83-4.51); Absolute Neutrophil Count 6.7 X10^3/uL (2.0-7.7); Basophil# 0.05 X10^3/uL; Basophil% 0.5 % (0-1); Eosinophil# 0.17 X10^3/uL; Eosinophils% 1.8 % (0-5); Hematocrit 43.9 % (40-54); Hemoglobin 14.7 g/dL (13.0-16.5); Lymphocyte # 1.86 X10^3/ul (4.0); Lymphocyte % 19.2 % (19-41); Mean Corp Hgb Conc 33.5 g/dL (32-36); Mean Corpuscular Volume 95.4 fL (80-94); Mean Platelet Vol. 11.9 fl (6.2-12.0); Monocyte# 0.85 X10^3/uL; Monocyte% 8.8 % (0-10); NRBC Flagged by Analyzer 0 % (0-5); Neutrophil # 6.74 X10^3/uL (2.7-7.7); Neutrophil % 69.3 % (47-70); Platelet Count 177 K/mm3 (150-450); RBC Distribution Width CV 13.7 % (11.6-14.6); RBC Distribution Width SD 47.4 fl (35.1-43.9); White Blood Count 9.7 K/mm3 (4.4-11.0)
[2021-01-14 18:28] LABS: Hemoglobin A1c 6.6 % (3.8-5.6)
[2021-01-14 18:38] LABS: ALB/GLOB Ratio 1.1 RATIO (0.9-2.4); AST(SGOT) 17 U/L (15-37); Alanine Aminotransfer ALT/SGPT 36 U/L (16-61); Albumin, Serum 3.7 g/dL (3.2-5.0); Alkaline Phosphatase 90 U/L (45-117); Anion Gap 6 (5-15); BUN 21 mg/dL (7-18); Calcium,Total 9.1 mg/dL (8.5-10.1); Chloride 107 mmol/L (98-107); Cholesterol 120 mg/dL (200); Creatinine, Serum 0.84 mg/dL (0.70-1.30); EST Glomerular Filtration Rate 99 mL/min (>60); Est Glom Filt Rate - Afr Amer 119 mL/min (>60); Globulin 3.4 g/dL (2.2-4.2); Glucose 162 mg/dL (74-106); High Density Lipoprotein 40 mg/dL; Protein, Total 7.1 g/dL (6.4-8.2); Sodium Level 139 mmol/L (136-145); Triglycerides 113 mg/dL; Very Low Density Lipoprotein 23 mg/dL (5-40)
== END ==
PROVIDERS: PCP Family Medicine; Referring Provider Family Medicine; Visit Provider Family Medicine
DX: I10 Essential (primary) hypertension (principal); E78.5 Hyperlipidemia, unspecified; E11.9 Type 2 diabetes mellitus without complications
CPT/HCPCS: 36415; 80053; 80061; 83036; 85025

== ENCOUNTER 2021-06-09 07:11 | Day surgery (SDC) | payer BC, SELFPAY ==
[2017-09-29 14:27] VITALS: BMI 32.5
[2021-06-02 13:25] VITALS: BMI 32.3
--- NOTE | 2021-06-09 | COLBX_PTH ---
PATIENT: SHEEBA ZIMMER LOC: EN U#:[id number] AGE/SX: 60/M ROOM: RE06/09/[address]: Dr. True Connell MD : 1960 BED: DIS: 06/09/2021 SPEC #: [id number] RECD: 06/09/21 12:08 STATUS: DENISE CATHERINE #: [id number] WILFRIDO: 06/09/21 00:[address]: True Connell DEPT: SURGICAL PATHOLOGY RECD BY: Bruce Gonsalez ENTERED: 06/09/21 12:09 SP TYPE: COLON BX OTHR DR: Dr. Reagan Soto MD Tissues: A - Colon, NOS B - Gastric mucous membrane C - Esophageal mucous membrane Procedures: Surgery Specimen Level IV HEADER OPERATION: Colonoscopy, EGD ([facility] [place]) PRE-OP DIAGNOSIS: Positive Cologuard TISSUE SUBMITTED: A - Duodenum biopsy, B - Antrum biopsy for histo and H. pylori, C - Distal esophageal biopsy MICROSCOPIC DIAGNOSIS A. Duodenum, biopsy: Minimal nonspecific chronic inflammation. B. Gastric antrum, biopsy: Mild chronic inflammation. See comment. C. Distal esophagus, biopsy: Focal changes of reflux. SJ:abhinav 06/10/2021 COMMENT B. The results of immunohistochemistry for Helicobacter pylori will be reported separately ([id number]). MICROSCOPIC DESCRIPTION Slides are reviewed. GROSS DESCRIPTION A - Received in fixative is one container labeled with the patient's name and designated duodenum biopsy. The specimen consists of one irregular fragment of light hdez soft tissue that measures 0.3 x 0.3 x 0.1 cm. The specimen is totally submitted in one cassette. B - Received in fixative is one container labeled with the patient's name and designated antrum biopsy. The specimen consists of two irregular fragments of light hdez soft tissue that in aggregate measure 0.7 x 0.5 x 0.1 cm. The specimen is totally submitted in one cassette. C - Received in fixative is one container labeled with the patient's name and designated distal esophagus biopsy. The specimen consists of one irregular fragment of light hdez soft tissue that measures 0.6 x 0.3 x 0.1 cm. The specimen is totally submitted in one cassette. / AM:abhinav 06/09/21 TC:3 CPT: 49279 x3
[2021-06-09 07:56] VITALS: BP 115/80; PULSE 59; RESP 16; TEMP 36.1; O2SAT 94; BMI 30.4
--- NOTE | 2021-06-09 07:59 | PCM.HP.BLA ---
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 Required: No Is patient in pain?: No Allergies No Known Allergies Allergy (Verified 06/02/21 13:26) Medications aspirin 81 mg PO DAILY@0800 tab 09/15/17 [Rx Confirmed 06/02/21] carvedilol 25 mg tablet 25 mg PO BID 09/13/19 [History Confirmed 06/02/21] rosuvastatin 40 mg tablet 40 mg PO DAILY 09/13/19 [History Confirmed 06/02/21] furosemide 20 mg tablet 20 mg PO DAILY #90 tab 09/04/20 [Rx Confirmed 06/02/21] lisinopril 40 mg tablet 40 mg PO DAILY #90 tab 09/04/20 [Rx Confirmed 06/02/21] amiodarone 200 mg tablet 100 mg PO DAILY tab 11/24/20 [History Confirmed 06/02/21] empagliflozin 10 mg tablet 10 mg PO DAILY tab 11/24/20 [History Confirmed 06/02/21] metformin 500 mg tablet,extended release 24 hr 500 mg PO BID tab 11/24/20 [History Confirmed 06/02/21] [facility] Medical History (Updated 06/02/21 @ 13:[address] True Connell MD) Arteriosclerosis of coronary artery Atherosclerotic heart disease of [place] coronary artery with other forms of angina pectoris Bladder cancer Bradycardia Chest pain Dilated cardiomyopathy Hypersomnia NSTEMI (non-ST elevated myocardial infarction) NSVT (nonsustained ventricular tachycardia) Premature ventricular contractions Shortness of breath Sustained ventricular tachycardia Tobacco abuse Unstable angina Surgical History H/O lumbar discectomy History of coronary artery stent placement History of left heart catheterization (11/07/19) Family History (Updated 06/02/21 @ 13:25 by Kelley Turner) Mother CVA (cerebral vascular accident) Breast cancer Father Diabetes Heart disease Hypertension Sister Diabetes Hypertension Social History Smoking Status: Former smoker how long ago did patient quit smokin09/13/2018 alcohol intake: never substance use type: does not use caffeine: No what type of physical activity do you participate in: none and bicycling frequency: 1-2 times per week duration: 15-30 minutes/day seatbelt use: always do you feel safe at home: Yes HPI HPI HPI: SHEEBA ZIMMER, is a 60 M who presents to the office today for surgical consultation regarding positive Cologuard. The patient is referred by Dr Reagan Soto and a written copy my surgical consult recommendations will return to him. Laboratory of January 14, 2021 demonstrate a white count of 9.7 with a hemoglobin 14.7 and hematocrit 43.9 and a platelet count of 177,000. In addition to his other medications he is on low-dose 81 mg aspirin. He has no specific complaints. No abdominal pain. No bright red blood per rectum or melena. No family history of colon cancer. He is never previously had a colonoscopy. He does have some occasional reflux symptoms. Most apparently he was a long-term cigarette smoker at least for 40 years and at least for a pack a day. He quit 5 years ago. About 4 years ago he had atrial fibrillation requiring placement of a pacemaker defibrillator. He senses occasionally when he goes back into A. fib. Does not believe that he is currently on it. 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 He denies any abdominal pain. No unexpected weight loss. He has not any history of DVT. ROS General General: No weight change, appetite, fatigue, colon cancer, breast cancer or weakness HEENT HEENT: No difficulty swallowing, eye injury, eye surgery, swollen glands or hoarseness Endo Endocrine: No thyroid disease, diabetes mellitus, thyroid cancer, Hair loss, heat intolerance or cold intolerance Musc Musculoskeletal: Yes back problems and arthritis; No rheumatoid arthritis, gout or joint pain Cardio Cardiovascular: Yes pacemaker, atrial fibrillation, high blood pressure, heart attack and heart stent; No murmur, heart disease, palpitations, shortness of breat with exertion or chest pain Psych Psychiatric: Yes depression and anxiety; No hearing voices Resp Respiratory: No shortness of breath, No sleep apnea, Yes cough, No COPD, No asthma, No emphysema and No wheezing Gastro Gastrointestinal: No abdominal pain, No nausea or vomiting, No diarrhea, No constipation, No blood in stool, No acid reflux, No hemorrhoids, No ulcers, No gallbladder problem and No black,tarry stools Michael Hematologic: No blood thinners, No blood disorders, No bleeding, No anemia and No blood clots Neuro Neurologic: No weakness Exam Const General: cooperative and comfortable Nutritional Appearance: average body habitus [facility] Head: normal to inspection Eyes General: appearance normal, both eyes and all related structures Chest Chest palpation & inspection: normal inspection of the chest Resp Effort & Inspection: normal respiratory effort Auscultation: clear to auscultation bilaterally Cardio Rate: regular rate Rhythm: regular rhythm GI Palpation: soft and no hepatosplenomegaly Musc Cervical Spine: normal cervical lordosis Neuro General: patient alert and patient awake Extrem General: no calf tenderness Psych Appearance: grossly normal COVID (Procedure Consent) Procedure Criteria Procedure Criteria: Yes Elective The surgeon/proceduralist and patient have discussed in detail the risk of exposure to and/or potential harm posed by the COVID-19 virus with having a surgery/procedure at this time versus the risk of delaying the surgery/procedure. It is not possible to know either the risk of delaying the surgery or procedure or chance of getting an infection with perfect accuracy, but a joint decision was made between the patient and the surgeon/proceduralist to proceed at this time with the scheduled surgery/procedure as indicated on the consent form. Assessment and Plan Assessment and Plan (1) Positive colorectal cancer screening using Cologuard test: Status: Acute Plan - Dr. True Connell MD: 60-year-old gentleman who is never previously had a colonoscopy. Cologuard testing is positive. He does not carry a history of anemia. No family history of colon cancer. I do propose for him a combined esophagogastroduodenoscopy with possible biopsy and colonoscopy with possible biopsy or polypectomy as indicated. He is aware of the technique, benefit, risk, alternatives. He has a pacemaker defibrillator in place. History of atrial fibrillation. We will schedule and proceed at his discretion. We will utilize monitored anesthesia care. I appreciate the opportunity of assisting with the surgical care Copy: Dr Reagan Connell M.D., F.A.C.S. Plan Details Other Orders: Orders: Colonoscopy Today Coding Level of Care Code 84797 Diagnoses Positive colorectal cancer screening using Cologuard test R19.5 I have re-examined the patient. There are no clinical changes since date of exam. True Connell M.D., F.A.C.S.
[2021-06-09] MEDS: Lactated Ringers 1,000 ML 100 ML IV (08:01)
--- NOTE | 2021-06-09 08:45 | IMM_PTH ---
PATIENT: SHEEBA ZIMMER LOC: EN U#:[id number] AGE/SX: 60/M ROOM: RE06/09/[address]: Dr. True Connell MD : 1960 BED: DIS: 06/09/2021 SPEC #: [id number] RECD: 06/09/21 11:56 STATUS: DENISE REQ #: [id number] WILFRIDO: 06/09/21 08:[address]: True Connell DEPT: IMMUNOHISTOCHEMISTRY RECD BY: Divine Da Silva ENTERED: 06/09/21 11:57 SP TYPE: IMMUNO OTHR DR: Dr. Reagan Soto MD Tissues: B - Stomach, NOS Procedures: H Pylori (initial) PHYSICIAN & INSTITUTION [place] [id number] SPECIMEN INFORMATION: Tissue Source: B ? Antrum biopsy Clinical Info: Positive Cologuard Specimen Number: [id number] CPT code: 44850 METHODOLOGY: Deparaffinized sections of prefer/formalin-fixed tissue or PAP/DQ stained slides are incubated with monoclonal/polyclonal antibodies/oligonucleotide probes. Localization is made via biotin free immunoperoxidase method. Appropriate controls are performed and reacted as expected. Results on target cell population are indicated in the following table: RESULTS: ANTIBODY / CLONE RESULT Block B H Pylori (polyclonal) negative These tests were developed and their performance characteristics determined by [facility]. They may not have been cleared or approved by the U.S. Food and Drug Administration. The FDA has determined that such clearance or approval is not necessary. INTERPRETATION: B. Antrum biopsy: Negative for Helicobacter pylori organisms. AM:abhinav 06/10/2021
--- NOTE | 2021-06-09 09:29 | OP.EGD_ITS ---
Patient Name: Frank Manning Procedure Date: 06/09/2021 8:54 AM Date of : 1960 Age: 60 Procedure: Upper GI endoscopy Indications: Cologuard positive Providers: True Connell MD Medicines: See the Anesthesia note for documentation of the administered medications Complications: No immediate complications. Procedure: Pre-Anesthesia Assessment: - Prior to the procedure, a History and Physical was performed, and patient medications and allergies were reviewed. The patient's tolerance of previous anesthesia was also reviewed. The risks and benefits of the procedure and the sedation options and risks were discussed with the patient. All questions were answered, and informed consent was obtained. Prior Anticoagulants: The patient has taken no previous anticoagulant or antiplatelet agents. ASA Grade Assessment: II - A patient with mild systemic disease. After reviewing the risks and benefits, the patient was deemed in satisfactory condition to undergo the procedure. After obtaining informed consent, the endoscope was passed under direct vision. Throughout the procedure, the patient's blood pressure, pulse, and oxygen saturations were monitored continuously. The gastroscope was introduced through the mouth, and advanced to the second part of duodenum. The upper GI endoscopy was accomplished without difficulty. The patient tolerated the procedure well. Scope In: 9:03:56 AM Scope Out: 9:09:46 AM Total Procedure Duration Time 0 hours 5 minutes 50 seconds Findings: The Z-line was irregular and was found 44 cm from the incisors. A small hiatal hernia was present. LA Grade A (one or more mucosal breaks less than 5 mm, not extending between tops of 2 mucosal folds) esophagitis with no bleeding was found 44 cm from the incisors. Biopsies were taken with a cold forceps for histology. Diffuse moderate inflammation with hemorrhage characterized by friability and mucus was found in the gastric antrum. Biopsies were taken with a cold forceps for histology. Diffuse mildly erythematous mucosa without active bleeding and with no stigmata of bleeding was found in the duodenal bulb. Biopsies were taken with a cold forceps for histology. Impression: - Z-line irregular, 44 cm from the incisors. - Small hiatal hernia. - LA Grade A reflux esophagitis. Biopsied. - Chronic gastritis with hemorrhage. Biopsied. - Erythematous duodenopathy. Biopsied. Recommendation: - Discharge patient to home. - Resume previous diet. - Continue present medications. - Use Prilosec (omeprazole) 40 mg PO daily. Procedure Code(s): --- Professional --- 12529, Esophagogastroduodenoscopy, flexible, transoral; with biopsy, single or multiple Diagnosis Code(s): --- Professional --- K22.8, Other specified diseases of esophagus K44.9, Diaphragmatic hernia without obstruction or gangrene K21.0, Gastro-esophageal reflux disease with esophagitis K29.51, Unspecified chronic gastritis with bleeding K31.89, Other diseases of stomach and duodenum CPT copyright 2017 [employer]. All rights reserved. The codes documented in this report are preliminary and upon it engineer review may be revised to meet current compliance requirements. True Connell MD 06/09/2021 9:29:38 AM This report has been signed electronically. Number of Addenda: 0 Note Initiated On: 06/09/2021 8:54 AM
[2021-06-09 09:30] VITALS: BP 104/66; BP 115/80; PULSE 66; RESP 16; TEMP 36.1; O2SAT 95
--- NOTE | 2021-06-09 09:31 | OP.CCLET_ITS ---
06/09/2021 Reagan Soto [address] [place] [address] Re : Upper GI endoscopy procedure for Frank Manning Dear Dr. Soto This procedure was performed on Wednesday, June 09, 2021. My impressions and recommendations are as follows: Impressions : - Z-line irregular, 44 cm from the incisors. - Small hiatal hernia. - LA Grade A reflux esophagitis. Biopsied. - Chronic gastritis with hemorrhage. Biopsied. - Erythematous duodenopathy. Biopsied. Recommendations : - Discharge patient to home. - Resume previous diet. - Continue present medications. - Use Prilosec (omeprazole) 40 mg PO daily. My findings are described in the full procedure note, which is enclosed. If I can be of further assistance, please feel free to contact me at Doctor phone number(s): Work: . Sincerely, True Connell MD 06/09/2021 9:29:38 AM This report has been signed electronically.
[2021-06-09 09:35] VITALS: BP 115/80; BP 99/62; PULSE 66; RESP 16; O2SAT 94
--- NOTE | 2021-06-09 09:36 | OP.CCLET_ITS ---
06/09/2021 Reagan Soto [address] [place] [address] Re : Colonoscopy procedure for Frank Manning Dear Dr. Soto This procedure was performed on Wednesday, June 09, 2021. My impressions and recommendations are as follows: Impressions : - Non-thrombosed internal hemorrhoids, internal hemorrhoids that prolapse with straining, but require manual replacement into the anal canal (Grade III) and enlarged prostate found on digital rectal exam. - Diverticulosis in the sigmoid colon and in the descending colon. - The examination was otherwise normal. - No specimens collected. Recommendations : - Discharge patient to home. - Resume previous diet. - Continue present medications. - Repeat colonoscopy in 10 years for screening purposes. I suspect that either the patient's esophagitis, gastritis, or internal hemorrhoids are the source of the positive Cologuard. My findings are described in the full procedure note, which is enclosed. If I can be of further assistance, please feel free to contact me at Doctor phone number(s): Work: . Sincerely, True Connell MD 06/09/2021 9:35:35 AM This report has been signed electronically.
--- NOTE | 2021-06-09 09:36 | OP.COLON_ITS ---
Patient Name: Frank Manning Procedure Date: 06/09/2021 9:10 AM Date of : 1960 Age: 60 Procedure: Colonoscopy Indications: Cologuard positive Providers: True Connell MD Medicines: See the Anesthesia note for documentation of the administered medications Patient Profile: Last Colonoscopy: none. The patient's first colonoscopy is today. Complications: No immediate complications. Procedure: Pre-Anesthesia Assessment: - Prior to the procedure, a History and Physical was performed, and patient medications and allergies were reviewed. The patient's tolerance of previous anesthesia was also reviewed. The risks and benefits of the procedure and the sedation options and risks were discussed with the patient. All questions were answered, and informed consent was obtained. Prior Anticoagulants: The patient has taken no previous anticoagulant or antiplatelet agents. ASA Grade Assessment: II - A patient with mild systemic disease. After reviewing the risks and benefits, the patient was deemed in satisfactory condition to undergo the procedure. After I obtained informed consent, the scope was passed under direct vision. Throughout the procedure, the patient's blood pressure, pulse, and oxygen saturations were monitored continuously. The colonoscope was introduced through the anus and advanced to the cecum, identified by appendiceal orifice and ileocecal valve. The colonoscopy was performed without difficulty. The patient tolerated the procedure well. The quality of the bowel preparation was good. The ileocecal valve and the appendiceal orifice were photographed. Scope In: 9:12:28 AM Scope Withdrawal Time 0 hours 6 minutes 29 seconds Scope Out: 9:24:19 AM Total Procedure Duration Time 0 hours 11 minutes 51 seconds Findings: The digital rectal exam findings include non-thrombosed internal hemorrhoids, internal hemorrhoids that prolapse with straining, but require manual replacement into the anal canal (Grade III) and enlarged prostate. Multiple diverticula were found in the sigmoid colon and descending colon. The exam was otherwise without abnormality. Impression: - Non-thrombosed internal hemorrhoids, internal hemorrhoids that prolapse with straining, but require manual replacement into the anal canal (Grade III) and enlarged prostate found on digital rectal exam. - Diverticulosis in the sigmoid colon and in the descending colon. - The examination was otherwise normal. - No specimens collected. Recommendation: - Discharge patient to home. - Resume previous diet. - Continue present medications. - Repeat colonoscopy in 10 years for screening purposes. I suspect that either the patient's esophagitis, gastritis, or internal hemorrhoids are the source of the positive Cologuard. Procedure Code(s): --- Professional --- 61549, Colonoscopy, flexible; diagnostic, including collection of specimen(s) by brushing or washing, when performed (separate procedure) Diagnosis Code(s): --- Professional --- K64.2, Third degree hemorrhoids N40.0, Benign prostatic hyperplasia without lower urinary tract symptoms K57.30, Diverticulosis of large intestine without perforation or abscess without bleeding CPT copyright 2017 [employer]. All rights reserved. The codes documented in this report are preliminary and upon hyperion analyst review may be revised to meet current compliance requirements. True Connell MD 06/09/2021 9:35:35 AM This report has been signed electronically. Number of Addenda: 0 Note Initiated On: 06/09/2021 9:10 AM
[2021-06-09 09:40] VITALS: BP 115/80; BP 96/56; PULSE 67; RESP 16; O2SAT 94
[2021-06-09 09:47] VITALS: BP 107/74; BP 115/80; TEMP 36.4; O2SAT 94
[2021-06-09 10:20] VITALS: BP 115/80
[2021-06-09 10:36] LABS: Bedside Glucose 118 mg/dL (70-110)
== END 2021-06-09 10:21 ==
LOC: EN 07:15 → AC 07:15
PROVIDERS: PCP Family Medicine; Referring Provider Family Medicine; Visit Provider Surgery
PROC: 0DJD8ZZ Inspection of Lower Intestinal Tract, Via Natural or Artificial Opening Endoscopic (ICD-10-PCS; CPT 45378; principal; 2021-06-09 08:40)
DX: K29.51 Unspecified chronic gastritis with bleeding (principal); K29.80 Duodenitis without bleeding; K44.9 Diaphragmatic hernia without obstruction or gangrene; K21.00 Gastro-esophageal reflux disease with esophagitis, without bleeding; N40.0 Benign prostatic hyperplasia without lower urinary tract symptoms; K57.30 Diverticulosis of large intestine without perforation or abscess without bleeding; K64.2 Third degree hemorrhoids; I42.0 Dilated cardiomyopathy; I25.2 Old myocardial infarction; I47.2 Ventricular tachycardia; E11.9 Type 2 diabetes mellitus without complications; E78.00 Pure hypercholesterolemia, unspecified; I25.118 Atherosclerotic heart disease of native coronary artery with other forms of angina pectoris; M19.90 Unspecified osteoarthritis, unspecified site; Z85.51 Personal history of malignant neoplasm of bladder; Z95.5 Presence of coronary angioplasty implant and graft; Z79.82 Long term (current) use of aspirin; Z79.84 Long term (current) use of oral hypoglycemic drugs; Z79.899 Other long term (current) drug therapy; Z87.891 Personal history of nicotine dependence
CPT/HCPCS: 43239; 45378; 82962; 88305; 88342; J7120; J2405

== ENCOUNTER → 2021-07-16 10:05 | Outpatient (CLI) | payer BC, SELFPAY ==
[2017-09-29 14:27] VITALS: BMI 32.5
[2021-07-16 12:14] LABS: Absolute Neutrophil Count 6.5 X10^3/uL (2.0-7.7); Basophil# 0.06 X10^3/uL; Basophil% 0.7 % (0-1); Eosinophil# 0.26 X10^3/uL; Eosinophils% 2.8 % (0-5); Hematocrit 45.8 % (40-54); Lymphocyte % 16.3 % (19-41); Mean Corp Hgb Conc 32.8 g/dL (32-36); Mean Corpuscular Hgb 31.1 pg (27.0-32.0); Mean Corpuscular Volume 94.8 fL (80-94); Mean Platelet Vol. 11.1 fl (6.2-12.0); Monocyte# 0.83 X10^3/uL; NRBC Flagged by Analyzer 0 % (0-5); Neutrophil % 70.8 % (47-70); Platelet Count 185 K/mm3 (150-450); RBC Distribution Width CV 13.8 % (11.6-14.6); RBC Distribution Width SD 48.7 fl (35.1-43.9); Red Blood Count 4.83 M/mm3 (4.6-6.2); White Blood Count 9.2 K/mm3 (4.4-11.0)
[2021-07-16 12:43] LABS: ALB/GLOB Ratio 0.9 RATIO (0.9-2.4); AST(SGOT) 17 U/L (15-37); Alanine Aminotransfer ALT/SGPT 32 U/L (16-61); Albumin, Serum 3.4 g/dL (3.2-5.0); Alkaline Phosphatase 95 U/L (45-117); Anion Gap 6 (5-15); BUN 18 mg/dL (7-18); BUN/Creat Ratio 24.9 RATIO (10-20); Calcium,Total 8.6 mg/dL (8.5-10.1); Chloride 109 mmol/L (98-107); Cholesterol 127 mg/dL (200); Creatinine, Serum 0.72 mg/dL (0.70-1.30); EST Glomerular Filtration Rate 117 mL/min (>60); Est Glom Filt Rate - Afr Amer 142 mL/min (>60); Globulin 3.7 g/dL (2.2-4.2); Glucose 122 mg/dL (74-106); High Density Lipoprotein 40 mg/dL; Potassium 4.1 mmol/L (3.5-5.1); Protein, Total 7.1 g/dL (6.4-8.2); Sodium Level 138 mmol/L (136-145); Thyroid Stim Hormone (TSH) 2.97 uIU/mL (0.358-3.74); Triglycerides 125 mg/dL; Very Low Density Lipoprotein 25 mg/dL (5-40)
[2021-07-16 12:47] LABS: Hemoglobin A1c 6.8 % (3.8-5.6)
== END ==
PROVIDERS: PCP Family Medicine; Referring Provider Family Medicine; Visit Provider Family Medicine
DX: E11.9 Type 2 diabetes mellitus without complications (principal)
CPT/HCPCS: 36415; 80053; 80061; 83036; 84443; 85025

== ENCOUNTER 2021-11-12 08:51 | Outpatient (CLI) | payer BC, SELFPAY ==
[2017-09-29 14:27] VITALS: BMI 32.5
--- NOTE | 2021-11-12 08:55 | RAD_ITS ---
STUDY: X-RAY - LEFT KNEE REASON FOR EXAM: Male, 61 years old. PAIN TECHNIQUE: 4 view(s) of the knee. COMPARISON: None. FINDINGS: Normal visualized distal femur. Normal visualized proximal tibia and fibula. Normal proximal tibiofibular articulation. There is mild degenerative arthrosis of the medial femorotibial compartment. Normal lateral femorotibial compartment. Normal patellofemoral articulation. The soft tissue structures are unremarkable. RAD/Knee 4 or More Views IMPRESSION: Degenerative arthrosis. Electronically Signed: Dimitry Reed MD at 11:47 EST , Service support ,
--- NOTE | 2021-11-12 08:55 | RAD_ITS ---
STUDY: X-RAY - RIGHT KNEE REASON FOR EXAM: Male, 61 years old. PAIN TECHNIQUE: 4 view(s) of the knee. COMPARISON: None. FINDINGS: Degenerative spur along the medial femoral condyle. Normal visualized proximal tibia and fibula. Normal proximal tibiofibular articulation. There is moderate degenerative arthrosis of the medial femorotibial compartment with moderate joint space narrowing. Normal lateral femorotibial compartment. Normal patellofemoral articulation. The soft tissue structures are unremarkable. RAD/Knee 4 or More Views IMPRESSION: Degenerative arthrosis. Electronically Signed: Dimitry Reed MD at 11:48 EST , Service support ,
[2021-11-12 10:04] LABS: Absolute Lymphocyte Count 1.36 X10^3/uL (0.83-4.51); Absolute Neutrophil Count 6.8 X10^3/uL (2.0-7.7); Basophil# 0.07 X10^3/uL; Basophil% 0.7 % (0-1); Eosinophil# 0.19 X10^3/uL; Hematocrit 45.9 % (40-54); Hemoglobin 15.3 g/dL (13.0-16.5); Lymphocyte # 1.36 X10^3/ul (0.83-4.51); Lymphocyte % 14.6 % (19-41); Mean Corp Hgb Conc 33.3 g/dL (32-36); Mean Corpuscular Volume 92.9 fL (80-94); Mean Platelet Vol. 11.2 fl (6.2-12.0); Monocyte# 0.87 X10^3/uL; Monocyte% 9.3 % (0-10); NRBC Flagged by Analyzer 0 % (0-5); Neutrophil # 6.82 X10^3/uL (2.7-7.7); Neutrophil % 73.1 % (47-70); Platelet Count 184 K/mm3 (150-450); RBC Distribution Width CV 13.7 % (11.6-14.6); RBC Distribution Width SD 46.7 fl (35.1-43.9); Red Blood Count 4.94 M/mm3 (4.6-6.2); White Blood Count 9.3 K/mm3 (4.4-11.0)
[2021-11-12 10:40] LABS: Hemoglobin A1c 7.3 % (3.8-5.6)
[2021-11-12 11:25] LABS: AST(SGOT) 20 U/L (15-37); Alanine Aminotransfer ALT/SGPT 35 U/L (16-61); Albumin, Serum 3.6 g/dL (3.2-5.0); Alkaline Phosphatase 93 U/L (45-117); Anion Gap 7 (5-15); BUN 23 mg/dL (7-18); BUN/Creat Ratio 30.8 RATIO (10-20); Calcium,Total 9.2 mg/dL (8.5-10.1); Chloride 106 mmol/L (98-107); Cholesterol 128 mg/dL (200); Creatinine, Serum 0.75 mg/dL (0.70-1.30); EST Glomerular Filtration Rate 113 mL/min (>60); Est Glom Filt Rate - Afr Amer 136 mL/min (>60); Globulin 3.7 g/dL (2.2-4.2); Glucose 118 mg/dL (74-106); High Density Lipoprotein 44 mg/dL; PSA,Total - Annual Screen 0.22 ng/mL (0.00-4.00); Potassium 4.3 mmol/L (3.5-5.1); Protein, Total 7.3 g/dL (6.4-8.2); Sodium Level 137 mmol/L (136-145); Thyroid Stim Hormone (TSH) 2.42 uIU/mL (0.358-3.74); Triglycerides 140 mg/dL; Very Low Density Lipoprotein 28 mg/dL (5-40)
== END 2021-11-12 23:59 | disposition short-term general hospital (02) ==
LOC: MTLAB 08:52
PROVIDERS: PCP Family Medicine; Referring Provider Family Medicine; Visit Provider Family Medicine
DX: M17.0 Bilateral primary osteoarthritis of knee (principal); E11.59 Type 2 diabetes mellitus with other circulatory complications; E11.69 Type 2 diabetes mellitus with other specified complication; Z12.5 Encounter for screening for malignant neoplasm of prostate
CPT/HCPCS: 36415; 73564; 80053; 80061; 83036; 84153; 84443; 85025; G0103

== ENCOUNTER 2022-02-11 13:42 | Outpatient (CLI) | payer BC, SELFPAY ==
[2017-09-29 14:27] VITALS: BMI 32.5
[2022-02-11 15:02] LABS: Absolute Lymphocyte Count 1.78 X10^3/uL (0.83-4.51); Absolute Neutrophil Count 6.4 X10^3/uL (2.0-7.7); Basophil# 0.06 X10^3/uL; Basophil% 0.6 % (0-1); Eosinophil# 0.16 X10^3/uL; Eosinophils% 1.7 % (0-5); Hematocrit 46.5 % (40-54); Hemoglobin 15.5 g/dL (13.0-16.5); Lymphocyte # 1.78 X10^3/ul (0.83-4.51); Lymphocyte % 19.2 % (19-41); Mean Corp Hgb Conc 33.3 g/dL (32-36); Mean Corpuscular Hgb 30.8 pg (27.0-32.0); Mean Corpuscular Volume 92.4 fL (80-94); Mean Platelet Vol. 11.4 fl (6.2-12.0); Monocyte# 0.87 X10^3/uL; Monocyte% 9.4 % (0-10); NRBC Flagged by Analyzer 0 % (0-5); Neutrophil # 6.38 X10^3/uL (2.7-7.7); Neutrophil % 68.8 % (47-70); Platelet Count 203 K/mm3 (150-450); RBC Distribution Width CV 13.8 % (11.6-14.6); RBC Distribution Width SD 46.7 fl (35.1-43.9); Red Blood Count 5.03 M/mm3 (4.6-6.2); White Blood Count 9.3 K/mm3 (4.4-11.0)
[2022-02-11 15:31] LABS: AST(SGOT) 13 U/L (15-37); Alanine Aminotransfer ALT/SGPT 34 U/L (16-61); Albumin, Serum 3.6 g/dL (3.2-5.0); Alkaline Phosphatase 84 U/L (45-117); Anion Gap 5 (5-15); BUN 18 mg/dL (7-18); BUN/Creat Ratio 23.2 RATIO (10-20); Calcium,Total 9.3 mg/dL (8.5-10.1); Chloride 108 mmol/L (98-107); Cholesterol 149 mg/dL (200); Creatinine, Serum 0.78 mg/dL (0.70-1.30); EST Glomerular Filtration Rate 108 mL/min (>60); Est Glom Filt Rate - Afr Amer 130 mL/min (>60); Globulin 3.7 g/dL (2.2-4.2); Glucose 118 mg/dL (74-106); High Density Lipoprotein 49 mg/dL; Potassium 4.3 mmol/L (3.5-5.1); Protein, Total 7.3 g/dL (6.4-8.2); Sodium Level 138 mmol/L (136-145); Thyroid Stim Hormone (TSH) 2.81 uIU/mL (0.358-3.74); Triglycerides 116 mg/dL; Very Low Density Lipoprotein 23 mg/dL (5-40)
[2022-02-11 15:41] LABS: Hemoglobin A1c 7.4 % (3.8-5.6)
== END 2022-02-11 23:59 | disposition home or self-care (01) ==
LOC: MFPLAB 13:44
PROVIDERS: PCP Family Medicine; Visit Provider Family Medicine
DX: Z01.810 Encounter for preprocedural cardiovascular examination (principal); I47.2 Ventricular tachycardia
CPT/HCPCS: 80053; 80061; 83036; 83735; 84443; 85025

== ENCOUNTER → 2022-05-11 | Outpatient (CLI) | payer BC, SELFPAY ==
[2017-09-29 14:27] VITALS: BMI 32.5
[2022-05-11 17:59] LABS: Absolute Lymphocyte Count 1.86 X10^3/uL (0.83-4.51); Absolute Neutrophil Count 6.2 X10^3/uL (2.0-7.7); Basophil# 0.05 X10^3/uL; Basophil% 0.5 % (0-1); Eosinophil# 0.19 X10^3/uL; Eosinophils% 2.1 % (0-5); Hematocrit 45.9 % (40-54); Hemoglobin 15.1 g/dL (13.0-16.5); Lymphocyte # 1.86 X10^3/ul (0.83-4.51); Lymphocyte % 20.2 % (19-41); Mean Corp Hgb Conc 32.9 g/dL (32-36); Mean Corpuscular Hgb 30.9 pg (27.0-32.0); Mean Corpuscular Volume 94.1 fL (80-94); Mean Platelet Vol. 11.7 fl (6.2-12.0); Monocyte# 0.92 X10^3/uL; NRBC Flagged by Analyzer 0 % (0-5); Neutrophil # 6.16 X10^3/uL (2.7-7.7); Neutrophil % 66.9 % (47-70); Platelet Count 176 K/mm3 (150-450); RBC Distribution Width CV 13.8 % (11.6-14.6); RBC Distribution Width SD 47.8 fl (35.1-43.9); Red Blood Count 4.88 M/mm3 (4.6-6.2); White Blood Count 9.2 K/mm3 (4.4-11.0)
[2022-05-11 18:24] LABS: AST(SGOT) 13 U/L (15-37); Alanine Aminotransfer ALT/SGPT 29 U/L (16-61); Albumin, Serum 3.6 g/dL (3.2-5.0); Alkaline Phosphatase 83 U/L (45-117); Anion Gap 8 (5-15); BUN 24 mg/dL (7-18); BUN/Creat Ratio 30.3 RATIO (10-20); Calcium,Total 9.3 mg/dL (8.5-10.1); Chloride 106 mmol/L (98-107); Cholesterol 145 mg/dL (200); Creatinine, Serum 0.79 mg/dL (0.70-1.30); EST Glomerular Filtration Rate 105 mL/min (>60); Est Glom Filt Rate - Afr Amer 127 mL/min (>60); Globulin 3.5 g/dL (2.2-4.2); Glucose 114 mg/dL (74-106); High Density Lipoprotein 41 mg/dL; Magnesium 2.1 mg/dL (1.6-2.6); Potassium 4.1 mmol/L (3.5-5.1); Protein, Total 7.1 g/dL (6.4-8.2); Sodium Level 139 mmol/L (136-145); Triglycerides 137 mg/dL; Very Low Density Lipoprotein 27 mg/dL (5-40)
[2022-05-11 18:26] LABS: Hemoglobin A1c 7.6 % (3.8-5.6)
== END | disposition home or self-care (01) ==
LOC: MFPLAB 14:24
PROVIDERS: PCP Family Medicine; Visit Provider Family Medicine
DX: E11.69 Type 2 diabetes mellitus with other specified complication (principal); I47.2 Ventricular tachycardia
CPT/HCPCS: 36415; 80053; 80061; 83036; 83735; 85025

== ENCOUNTER → 2022-06-07 | Outpatient (CLI) | payer BC, SELFPAY ==
[2017-09-29 14:27] VITALS: BMI 32.5
[2022-06-07 15:10] LABS: Absolute Neutrophil Count 7.5 X10^3/uL (2.0-7.7); Basophil# 0.06 X10^3/uL; Basophil% 0.6 % (0-1); Eosinophil# 0.28 X10^3/uL; Eosinophils% 2.7 % (0-5); Hematocrit 47.5 % (40-54); Hemoglobin 15.9 g/dL (13.0-16.5); Lymphocyte % 14.6 % (19-41); Mean Corp Hgb Conc 33.5 g/dL (32-36); Mean Corpuscular Hgb 31.2 pg (27.0-32.0); Mean Corpuscular Volume 93.3 fL (80-94); Mean Platelet Vol. 11.3 fl (6.2-12.0); Monocyte# 0.88 X10^3/uL; Monocyte% 8.6 % (0-10); NRBC Flagged by Analyzer 0 % (0-5); Neutrophil # 7.53 X10^3/uL (2.7-7.7); Neutrophil % 73.1 % (47-70); Platelet Count 161 K/mm3 (150-450); RBC Distribution Width CV 13.4 % (11.6-14.6); Red Blood Count 5.09 M/mm3 (4.6-6.2); White Blood Count 10.3 K/mm3 (4.4-11.0)
[2022-06-07 16:10] LABS: AST(SGOT) 15 U/L (15-37); Alanine Aminotransfer ALT/SGPT 40 U/L (16-61); Albumin, Serum 3.7 g/dL (3.2-5.0); Alkaline Phosphatase 77 U/L (45-117); Anion Gap 7 (5-15); BUN 17 mg/dL (7-18); BUN/Creat Ratio 22.3 RATIO (10-20); Chloride 105 mmol/L (98-107); Creatinine, Serum 0.76 mg/dL (0.70-1.30); EST Glomerular Filtration Rate 110 mL/min (>60); Est Glom Filt Rate - Afr Amer 133 mL/min (>60); Globulin 3.6 g/dL (2.2-4.2); Glucose 151 mg/dL (74-106); Potassium 3.9 mmol/L (3.5-5.1); Protein, Total 7.3 g/dL (6.4-8.2); Sodium Level 136 mmol/L (136-145)
== END | disposition home or self-care (01) ==
LOC: MTLAB 12:41
PROVIDERS: PCP Family Medicine; Referring Provider Family Medicine; Visit Provider Family Medicine
DX: R42 Dizziness and giddiness (principal)
CPT/HCPCS: 36415; 80053; 85025

== ENCOUNTER 2022-12-13 22:06 | Emergency (ER) | payer BC, SELFPAY ==
[2017-09-29 14:27] VITALS: BMI 32.5
[2022-12-13 22:07] VITALS: BP 177/97; PULSE 84; RESP 18; TEMP 35.7; O2SAT 92
[2022-12-13 22:14] VITALS: BMI 32.2
--- NOTE | 2022-12-13 22:41 | ED.VIS.BACK ---
HPI History of Present Illness Chief Complaint: Back Narrative Narrative: 61-year-old male presenting with lower back pain. He describes it as diffuse. He denies any direct trauma to it. He believes he strained something chopping wood. He saw his primary care physician Dr. Soto and he was given Flexeril. Flexeril does not seem to be helping significantly. Patient stating his spasms are getting worse. No loss of bladder or bowel control. No saddle anesthesia/paresthesia. Patient is able to ambulate although there is some pain in lower back. Does. [facility] Medical History Arthritis Atherosclerotic heart disease of [place] coronary artery with other forms of angina pectoris Bladder cancer Bradycardia Cancer Cardiology follow-up encounter Chest pain Chronic cough Diabetes Dilated cardiomyopathy Former smoker High cholesterol History of CHF (congestive heart failure) History of echocardiogram History of edema History of heart attack History of irregular heartbeat History of stress test Hypersomnia Hypertension Injury of back Normal stress echocardiogram NSTEMI (non-ST elevated myocardial infarction) NSVT (nonsustained ventricular tachycardia) Pericardial effusion Premature ventricular contractions Presence of cardiac resynchronization therapy defibrillator ([employer]) (~11/19/19) Presence of stent in coronary artery (~09/29/17) Shortness of breath Shortness of breath on exertion Sustained ventricular tachycardia Tobacco abuse Unstable angina Wears glasses Wears partial dentures Home Medications aspirin 81 mg tablet,delayed release 81 mg PO DAILY@0800 09/15/17 [Rx Last Taken 11/07/19] carvedilol 25 mg tablet 25 mg PO BID 09/13/19 [History Last Taken 11/07/19] rosuvastatin 40 mg tablet 40 mg PO DAILY 09/13/19 [History Last Taken Unknown] metformin 500 mg tablet,extended release 24 hr 500 mg PO BID 11/24/20 [History Last Taken Unknown] empagliflozin 25 mg tablet (Jardiance) 25 mg PO DAILY 04/07/22 [History Last Taken Unknown] furosemide 20 mg tablet (Lasix) 20 mg PO DAILY #90 tabs 08/26/22 [Rx Last Taken Unknown] lisinopril 40 mg tablet 40 mg PO DAILY #90 tabs 08/30/22 [Rx Last Taken Unknown] amiodarone 400 mg tablet 400 mg PO DAILY 10/07/22 [History Last Taken Unknown] hydrocodone-acetaminophen 5-325mg 5mg-325mg 1 tab PO Q6H PRN PRN Pain 3 days #12 TABLETS 12/13/22 [Rx Last Taken Unknown] lidocaine 5 % topical patch (Lidoderm) 1 patch topical DAILY PRN pain #15 ea 12/13/22 [Rx Last Taken Unknown] Allergy/AdvReac Type Severity Reaction Status Date / Time morphine AdvReac Nausea/Vom/ Verified 10/07/22 14:31 Diarrhea Family History Mother CVA (cerebral vascular accident) Breast cancer Father Diabetes Heart disease Hypertension Sister Diabetes Hypertension Surgical History H/O lumbar discectomy History of cardiac catheterization History of cardiac radiofrequency ablation History of coronary artery stent placement History of left heart catheterization (11/07/19) Hx of cystoscopy Presence of coronary angioplasty implant and graft (~09/29/17) Social History Smoking Status: Former smoker how long ago did patient quit smokin09/13/2018 alcohol intake: never substance use type: does not use caffeine: No what type of physical activity do you participate in: none and bicycling frequency: 1-2 times per week duration: 15-30 minutes/day seatbelt use: always do you feel safe at home: Yes ROS ROS ED Constitutional Constitutional ED: Denies chills, fever(s) or sweats Eyes Eyes: Denies blurry vision or change in vision ENT ENT ED: Denies ear pain or sore throat Cardiovascular Cardiovascular: Denies chest pain, palpitations or racing heartbeat Respiratory/Chest Respiratory/Chest: Denies cough, dyspnea or sputum Gastrointestinal Gastrointestinal: Denies abdominal pain, constipation, diarrhea, nausea or vomiting Genitourinary Genitourinary ED: Denies dysuria, hematuria or urinary frequency Musculoskeletal Musculoskeletal: Reports back pain; Denies arthralgias, myalgias or neck pain Integumentary Denies abscess, Abrasions or rash Neurologic Neurologic: Denies headache(s), paresthesias or weakness Psychiatric Psychiatric: Denies anxiety, depression, suicidal ideation or suicidal thoughts Endocrine Endocrinology: Denies polydipsia or polyuria EXAM Physical Exam Const Vital Signs: 12/13/22 22:07 Temperature 96.2 F L Temperature Source Temporal Pulse Rate 84 Respiratory Rate 18 Blood Pressure 177/97 H Blood Pressure Mean 123 Pulse Ox 92 Oxygen Delivery Method Room Air Positive well nourished General Appearance ED: NAD; Negative for pallor HEENT Reports moist mucous membranes Resp normal respiratory effort Cardio regular rate and regular rhythm GI normal to inspection, nondistended, normoactive bowel sounds Back/Spine Lumbar Spine / Lower Back: ROM limited and paraspinal muscle tenderness bilateral L3, L4 and L5 Pelvis: buttocks normal Extremity normal to inspection and no clubbing, cyanosis or edema Neuro oriented x3 Sensorium / Orientation: alert Motor Exam: strength 5/5 throughout Psych mental status grossly normal Skin no rashes or lesions noted and no wounds General Skin Exam: Negative for jaundice or pallor MDM MDM MDM Narrative Medical decision making narrative: 62-year-old male presenting with back pain. He states he thinks he injured it while chopping wood. He already saw his primary care physician and was given Flexeril. He states is not helping. On examination he has some tenderness fairly diffusely in the lumbar region. There is no obvious midline deformities or step-offs. He has no bruising, rash, crepitance. No CVA tenderness. Patient was given IM Toradol, oxycodone, Lidoderm patch. Will obtain x-ray lumbar spine. Patient feeling improved on reevaluation at 11:30 PM. X-ray of the lumbar spine on my interpretation shows degenerative changes without acute fractures. Patient was given a prescription for [place] and Lidoderm patches. He is to follow-up with his primary care physician to ensure resolution. Impression: 1. Lumbar strain Lab Data Attestation: I reviewed the patient's lab results. Radiography Diagnostic Testing: Clinical Impression(s) from Imaging Studies Lumbar Spine X-Ray 12/13/22 22:50 IMPRESSION: Degenerative changes of the spine, as detailed above. Electronically Signed: Franko Angel DO at 23:04 EST Reading Location ID and State: [address] [place] [address] Tel [phone], Service support , Discharge Plan Triage Chief Complaint: Back ED Provider: Juan Anna Dx/Rx/DC Orders Instructions: ED Back Spasm, No Trauma Prescriptions: New hydrocodone-acetaminophen 5-325 mg tablet 1 tab PO Q6H PRN PRN (Reason: Pain) 3 Days Qty: 12 0RF lidocaine [Lidoderm] 5 % adhesive patch,medicated 1 patch topical DAILY PRN (Reason: pain) Qty: 15 0RF Rx Instructions: leave on most painful area for up to 12 hrs No Action carvedilol 25 mg tablet 25 mg PO BID rosuvastatin 40 mg tablet 40 mg PO DAILY metformin 500 mg tablet extended release 24 hr 500 mg PO BID Label Comments: Take 1 tablet by mouth twice a day Jardiance 25 mg tablet 25 mg PO DAILY amiodarone 400 mg tablet 400 mg PO DAILY aspirin 81 MG tablet 81 mg PO DAILY@0800 0RF furosemide [Lasix] 20 mg tablet 20 mg PO DAILY Qty: 90 3RF lisinopril 40 mg tablet 40 mg PO DAILY Qty: 90 3RF Primary Care Provider: Reagan Soto Referrals: Reagan Soto MD [Primary Care Provider] - Disposition Disposition: Home, Self Care
--- NOTE | 2022-12-13 22:50 | RAD_ITS ---
STUDY: X-RAY - LUMBAR SPINE REASON FOR EXAM: Male, 62 years old. Lower back pain. Spasms. TECHNIQUE: 3 view(s) of the lumbar spine were obtained. COMPARISON: None FINDINGS: Normal lumbar lordosis. There is no substantial scoliosis. There is a normal alignment of the vertebrae. There is multilevel endplate spondylosis of the lumbar vertebrae. There is multi-level degenerative disc disease with multi-level disc space narrowing. There is no evidence of acute fracture or loss of vertebral axial height. There is atherosclerotic calcification of the abdominal aorta without a demonstrated aneurysm. RAD/Lumbar Spine 2 or 3 Views IMPRESSION: Degenerative changes of the spine, as detailed above. Electronically Signed: Franko Angel DO at 23:04 EST ,
[2022-12-13] MEDS: Ketorolac 15 MG/ML Vial IM (23:04)
[2022-12-13] MEDS: Lidocaine 5% Patch 1 PATCH TOPICAL (23:04)
[2022-12-13] MEDS: oxyCODONE 5 MG Tablet PO (23:04)
== END 2022-12-14 00:14 | disposition home or self-care (01) ==
PROVIDERS: Emergency Provider Student in an Organized Health Care Education/Training Program; PCP Family Medicine; Visit Provider Student in an Organized Health Care Education/Training Program
DX: S39.012A Strain of muscle, fascia and tendon of lower back, initial encounter (principal); X50.9XXA Other and unspecified overexertion or strenuous movements or postures, initial encounter; I11.0 Hypertensive heart disease with heart failure; I50.9 Heart failure, unspecified; I42.0 Dilated cardiomyopathy; E11.9 Type 2 diabetes mellitus without complications; I25.10 Atherosclerotic heart disease of native coronary artery without angina pectoris; E78.00 Pure hypercholesterolemia, unspecified; Z87.891 Personal history of nicotine dependence; Z79.82 Long term (current) use of aspirin; Z79.84 Long term (current) use of oral hypoglycemic drugs; Z79.899 Other long term (current) drug therapy
CPT/HCPCS: 72100; 96372; 99284

== ENCOUNTER → 2022-12-27 | Outpatient (CLI) | payer BC, SELFPAY ==
[2017-09-29 14:27] VITALS: BMI 32.5
[2022-12-27 15:08] LABS: Absolute Lymphocyte Count 0.72 X10^3/uL (0.83-4.51); Absolute Neutrophil Count 11.6 X10^3/uL (2.0-7.7); Basophil# 0.03 X10^3/uL; Basophil% 0.2 % (0-1); Eosinophil# 0.03 X10^3/uL; Eosinophils% 0.2 % (0-5); Hematocrit 47.8 % (40-54); Hemoglobin 15.6 g/dL (13.0-16.5); Lymphocyte # 0.72 X10^3/ul (0.83-4.51); Lymphocyte % 5.6 % (19-41); Mean Corp Hgb Conc 32.6 g/dL (32-36); Mean Corpuscular Hgb 31.7 pg (27.0-32.0); Mean Corpuscular Volume 97.2 fL (80-94); Mean Platelet Vol. 11.7 fl (6.2-12.0); Monocyte% 3.1 % (0-10); NRBC Flagged by Analyzer 0 % (0-5); Neutrophil # 11.61 X10^3/uL (2.7-7.7); Neutrophil % 90.4 % (47-70); Platelet Count 158 K/mm3 (150-450); RBC Distribution Width CV 13.2 % (11.6-14.6); RBC Distribution Width SD 47.6 fl (35.1-43.9); Red Blood Count 4.92 M/mm3 (4.6-6.2); White Blood Count 12.9 K/mm3 (4.4-11.0)
[2022-12-27 15:22] LABS: Microalbumin,Random Urine 27.8 mg/L (NO RANGE EST.); Microalbumin:Creatinine Ratio 94.2 mg/g CRE (<30 mg/g CRE)
[2022-12-27 15:37] LABS: ALB/GLOB Ratio 1.1 RATIO (0.9-2.4); AST(SGOT) 18 U/L (15-37); Alanine Aminotransfer ALT/SGPT 50 U/L (16-61); Albumin, Serum 3.6 g/dL (3.2-5.0); Alkaline Phosphatase 61 U/L (45-117); Anion Gap 9 (5-15); BUN 29 mg/dL (7-18); BUN/Creat Ratio 29.9 RATIO (10-20); Calcium,Total 9.2 mg/dL (8.5-10.1); Chloride 102 mmol/L (98-107); Cholesterol 113 mg/dL (200); Creatinine, Serum 0.97 mg/dL (0.70-1.30); EST Glomerular Filtration Rate 83 mL/min (>60); Est Glom Filt Rate - Afr Amer 101 mL/min (>60); Globulin 3.2 g/dL (2.2-4.2); Glucose 238 mg/dL (74-106); High Density Lipoprotein 41 mg/dL; PSA,Total - Annual Screen 0.18 ng/mL (0.00-4.00); Potassium 4.3 mmol/L (3.5-5.1); Protein, Total 6.8 g/dL (6.4-8.2); Sodium Level 137 mmol/L (136-145); Thyroid Stim Hormone (TSH) 0.87 uIU/mL (0.358-3.74); Triglycerides 148 mg/dL; Very Low Density Lipoprotein 30 mg/dL (5-40)
[2022-12-27 16:09] LABS: Hemoglobin A1c 8.6 % (3.8-5.6)
== END | disposition home or self-care (01) ==
LOC: MFPLAB 11:01
PROVIDERS: PCP Family Medicine; Visit Provider Family Medicine
DX: Z12.5 Encounter for screening for malignant neoplasm of prostate (principal); E11.9 Type 2 diabetes mellitus without complications
CPT/HCPCS: 36415; 80053; 80061; 82043; 82570; 83036; 84153; 84443; 85025; G0103

== ENCOUNTER 2023-01-24 13:00 | Outpatient (RCR) | payer BC, SELFPAY ==
[2017-09-29 14:27] VITALS: BMI 32.5
--- NOTE | 2023-01-14 16:23 | HP.PTEVAL ---
Patient's Visit Information SHEEBA ZIMMER is a 62 year old M referred to Physical Therapy by Pooja Hood NP-C with a diagnosis of BACK PAIN. Date of Evaluation: 01/14/23 Physical Therapist: Johnny North, PT, Cert MDT, OCS - Visit Plan Frequency: 2x /Week Duration: 4 Weeks Plan: PACEMAKER/DIFFIBULATOR. PT INTERVETIONS DLS ,POSTURAL EX'S ,LE FLEXABLITY ,ACTIVITYIY MODIFICATION ,LUMBAR ROM AND US /CP - Subjective This 62 y/o male presents to physical therapy with back pain . Patient has had lumbar surgery 12 years ago lumbar discectomy. Most recently since Oct 2022 ,developed spasm lumbar thus had to go ER ,tried pain injection November . Symptoms progressively worse tried prednisone and flexural. Recommended MRI but needs PT . Patient has pain right > left pain spasms. Patient denies any leg symptoms. Denies paresthesia/tingling . Aggravating bending ,lifting, standing ,walking and getting out of chair. Alleviating factors medication. Coughing/sneezing+. Bowel/bladder -. Since onset pain in Oct uses cane. Patient had x-rays . Patient pain affects sleeping. Patient pain affects QOL and function. Patient goals to have no pain. Patient has pacemaker/diffubrator. SOCIAL: . VOCATION: retired - Pain Bilateral Back Pain Intensity (Out of 10): 5 Pain Intensity Range: 10 - Objective POSTURE: mild forward posture. GAIT: reciprocal pattern with cane slow joseph with straight cane mild forward posture. NEURO: denies paresthesia/tingling ,reflexes L3-4,L4-5,L5-S1 1/3 ,ANR + right side ,myotome weakness L3-4. SYMMTRIES: align. PALAPTION: unremarkable. LUMBAR ROM: flexion mod loss pain ,extension severe loss pain ,side glides mod loss. FLEXABILITY: hamstring flexibility mod tight. MMT:( peak force) right quads 15.2 ,hamstrings 16.2 ,hip flexion 11.2 ,ankle 4/5 ,left 4/5 quads/hams ,hip flexion 4-/5 - Special Tests L/S Slump test left side: Negative L/S Slump test right side: Positive L/S Right Straight Leg Raise: Positive Lumbar Standing: Flexion - Mechanical Response: No effect Lumbar Standing: Flexion - Symptoms During Testing: Increases Lumbar Standing: Flexion - Symptoms After Testing: Worse Lumbar Standing: Extension - Mechanical Response: No effect Lumbar Standing: Extension - Symptoms During Testing: Increases Lumbar Standing: Extension - Symptoms After Testing: Worse Lumbar Standing: Right Side Glides - Mechanical Response: No effect Lumbar Standing: Right Side Os[place] - Symptoms During Testing: No effect Lumbar Standing: Right Side [place] - Symptoms After Testing: No effect Lumbar Standing: Left Side [place] - Mechanical Response: No effect Lumbar Standing: Left Side [place] - Symptoms During Testing: No effect Lumbar Standing: Left Side [place] - Symptoms After Testing: No effect - Balance/Special Test Scores Oswestry Low Back Score: 35 - Goals Goal 1:: Patient to be I with HEP Goal Time Frame: 4-6 Weeks Goal 2:: Patient to demonstrate 40 % improvement with decrease pain and improved function Goal Time Frame: 4-6 Weeks Goal 3:: Patient to improve lumbar ROM for function of recovery to tie shoes Goal Time Frame: 4-6 Weeks Goal 4:: Patient increase peak force of right leg by 5-10 point to improve gait. Goal Time Frame: 4-6 Weeks Goal 5:: Patient improve back oswestry score by 5 points to improve QOL and gait Goal Time Frame: 6-8 Weeks - Rehabilitation Potential Physical Therapy Diagnosis: This patient has lumbar pain with radicular symptoms in ight leg with possible stenosis vs disc with h/o lumbar discectomy with pain during motion testing ,positioning worse with walking ,standing and needs cane for gait thus will need skilled PT and further diagnostics. Rehabilitation Potential: Good - Anticipated Interventions Patient/Client Instruction: Educate patient on: Condition, Plan of Care For the Purpose of:: To decrease pain, To increase ROM, To improve muscle performance and motor function, To improve ability to perform ADL's, To increase tolerance to activity/condition/position, To improve ability of physical actions for home/community/work/leisure, To improve health of tissue, To decrease soft tissue restriction, To increase flexibility/ROM, To prevent re-injury Therapeutic Exercise to Include: Strength training, Body mechanics, Postural training, Flexibilty training, Active ROM, Dynamic Lumbar Stabilization For the Purpose of:: To decrease pain, To increase ROM, To improve muscle performance and motor function, To increase tolerance to activity/condition/position, To improve ability of physical actions for home/community/work/leisure, To improve health of tissue, To decrease soft tissue restriction, To increase flexibility/ROM Cryotherapy (ice pack, ice massage): Yes Thermo therapy (hot pack): Yes Ultrasound (thermal/non thermal): Yes For the Purpose of:: To decrease pain, To increase ROM, To improve nutrient delivery to tissue, To increase oxygenation perfusion, To improve health of tissue, To decrease soft tissue restriction Thank you for the opportunity to evaluate your patient. For Medicare and Medicare HMO plans, please review the plan of care and approve it. It will need to be FAXED BACK to us at [phone] for Medicare purposes. For Medicare only, by signing this I certify the plan of care. Please let me know if there are questions or concerns regarding this plan of care. Physician Signature: Date:
--- NOTE | 2023-05-22 19:02 | HP.PT.NRP ---
Patient Information Patient Information: SHEEBA ZIMMER was seen in my office for initial evaluation on 01/14/23. The following Plan of Care was established for this patient: POC Established Initial Frequency: 2x /Week Initial Duration: 4 Weeks Anticipated Interventions Patient/Client Instruction: Educate patient on: Condition and Plan of Care For the Purpose of:: To decrease pain, To increase ROM, To improve muscle performance and motor function, To improve ability to perform ADL's, To increase tolerance to activity/condition/position, To improve ability of physical actions for home/community/work/leisure, To improve health of tissue, To decrease soft tissue restriction, To increase flexibility/ROM and To prevent re-injury Therapeutic Exercise to Include: Strength training, Body mechanics, Postural training, Flexibilty training, Active ROM and Dynamic Lumbar Stabilization For the Purpose of:: To decrease pain, To increase ROM, To improve muscle performance and motor function, To increase tolerance to activity/condition/position, To improve ability of physical actions for home/community/work/leisure, To improve health of tissue, To decrease soft tissue restriction and To increase flexibility/ROM Cryotherapy (ice pack, ice massage): Yes Thermo therapy (hot pack): Yes Ultrasound (thermal/non thermal): Yes For the Purpose of:: To decrease pain, To increase ROM, To improve nutrient delivery to tissue, To increase oxygenation perfusion, To improve health of tissue and To decrease soft tissue restriction Last Seen Last Seen: This patient was last seen in our office . Pertinent comments regarding their Physical therapy will appear below: Patient was seen for PT for back pain with modalities due hoda pain thus recommend to RTD At this point I will be discontinuing this patient from physical therapy. I would be happy to see this patient again in the future if found appropriate by the physician. Thank you! Johnny North, PT, Cert MDT, OCS Balance/Gait/Functional tests Balance/Special Test Scores Oswestry Low Back Score: 35
== END 2023-01-24 19:00 | disposition home or self-care (01) ==
LOC: PT 13:00
PROVIDERS: PCP Family Medicine; Referring Provider Nurse Practitioner Family; Visit Provider Nurse Practitioner Family
DX: M54.9 Dorsalgia, unspecified (principal)
CPT/HCPCS: 97035; 97110; 97162

== ENCOUNTER → 2023-04-19 | Outpatient (CLI) | payer BC, SELFPAY ==
[2017-09-29 14:27] VITALS: BMI 32.5
[2023-04-19 10:21] LABS: Absolute Lymphocyte Count 1.49 X10^3/uL (0.83-4.51); Absolute Neutrophil Count 6.8 X10^3/uL (2.0-7.7); Basophil# 0.06 X10^3/uL; Basophil% 0.6 % (0-1); Eosinophil# 0.19 X10^3/uL; Eosinophils% 2.1 % (0-5); Hematocrit 45.9 % (40-54); Hemoglobin 14.9 g/dL (13.0-16.5); Lymphocyte # 1.49 X10^3/ul (0.83-4.51); Lymphocyte % 16.1 % (19-41); Mean Corp Hgb Conc 32.5 g/dL (32-36); Mean Corpuscular Hgb 32.4 pg (27.0-32.0); Mean Corpuscular Volume 99.8 fL (80-94); Mean Platelet Vol. 11.2 fl (6.2-12.0); Monocyte# 0.74 X10^3/uL; NRBC Flagged by Analyzer 0 % (0-5); Neutrophil # 6.75 X10^3/uL (2.7-7.7); Neutrophil % 72.9 % (47-70); Platelet Count 197 K/mm3 (150-450); RBC Distribution Width SD 51.8 fl (35.1-43.9); White Blood Count 9.3 K/mm3 (4.4-11.0)
[2023-04-19 10:52] LABS: Vitamin B12 577 pg/mL (211-911); Vitamin D,25 Hydroxy 32.6 ng/mL
[2023-04-19 11:24] LABS: ALB/GLOB Ratio 1.1 RATIO (0.9-2.4); AST(SGOT) 34 U/L (15-37); Alanine Aminotransfer ALT/SGPT 55 U/L (16-61); Albumin, Serum 3.6 g/dL (3.2-5.0); Alkaline Phosphatase 65 U/L (45-117); Anion Gap 6 (5-15); BUN 19 mg/dL (7-18); BUN/Creat Ratio 24.9 RATIO (10-20); Calcium,Total 9.2 mg/dL (8.5-10.1); Chloride 109 mmol/L (98-107); Cholesterol 105 mg/dL (200); Creatinine, Serum 0.76 mg/dL (0.70-1.30); EST Glomerular Filtration Rate 109 mL/min (>60); Est Glom Filt Rate - Afr Amer 132 mL/min (>60); Globulin 3.3 g/dL (2.2-4.2); Glucose 121 mg/dL (74-106); High Density Lipoprotein 39 mg/dL; Potassium 4.3 mmol/L (3.5-5.1); Protein, Total 6.9 g/dL (6.4-8.2); Sodium Level 140 mmol/L (136-145); T4 Free Direct 1.15 ng/dL (0.76-1.46); Thyroid Stim Hormone (TSH) 2.56 uIU/mL (0.358-3.74); Triglycerides 84 mg/dL; Very Low Density Lipoprotein 17 mg/dL (5-40)
== END | disposition home or self-care (01) ==
LOC: MFPLAB 08:26
PROVIDERS: PCP Family Medicine; Visit Provider Family Medicine
DX: I25.10 Atherosclerotic heart disease of native coronary artery without angina pectoris (principal); E11.69 Type 2 diabetes mellitus with other specified complication; R53.83 Other fatigue
CPT/HCPCS: 36415; 80053; 80061; 82306; 82607; 83036; 84439; 84443; 85025

== ENCOUNTER → 2023-07-13 | Outpatient (CLI) | payer BC, SELFPAY ==
[2017-09-29 14:27] VITALS: BMI 32.5
[2023-07-13 12:08] LABS: Absolute Lymphocyte Count 1.12 X10^3/uL (0.83-4.51); Absolute Neutrophil Count 6.7 X10^3/uL (2.0-7.7); Basophil# 0.05 X10^3/uL; Basophil% 0.6 % (0-1); Eosinophil# 0.07 X10^3/uL; Eosinophils% 0.8 % (0-5); Hematocrit 49.6 % (40-54); Hemoglobin 16.1 g/dL (13.0-16.5); Lymphocyte # 1.12 X10^3/ul (0.83-4.51); Mean Corp Hgb Conc 32.5 g/dL (32-36); Mean Corpuscular Hgb 31.8 pg (27.0-32.0); Mean Corpuscular Volume 97.8 fL (80-94); Monocyte# 0.68 X10^3/uL; Monocyte% 7.9 % (0-10); NRBC Flagged by Analyzer 0 % (0-5); Neutrophil # 6.66 X10^3/uL (2.7-7.7); Neutrophil % 77.2 % (47-70); Platelet Count 209 K/mm3 (150-450); RBC Distribution Width CV 13.4 % (11.6-14.6); RBC Distribution Width SD 48.2 fl (35.1-43.9); Red Blood Count 5.07 M/mm3 (4.6-6.2); White Blood Count 8.6 K/mm3 (4.4-11.0)
[2023-07-13 12:42] LABS: ALB/GLOB Ratio 1.2 RATIO (0.9-2.4); AST(SGOT) 21 U/L (15-37); Alanine Aminotransfer ALT/SGPT 48 U/L (16-61); Albumin, Serum 3.9 g/dL (3.2-5.0); Alkaline Phosphatase 65 U/L (45-117); Anion Gap 4 (5-15); BUN 16 mg/dL (7-18); BUN/Creat Ratio 20.3 RATIO (10-20); Calcium,Total 9.2 mg/dL (8.5-10.1); Chloride 106 mmol/L (98-107); Cholesterol 119 mg/dL (200); Creatinine, Serum 0.79 mg/dL (0.70-1.30); EST Glomerular Filtration Rate 105 mL/min (>60); Est Glom Filt Rate - Afr Amer 127 mL/min (>60); Globulin 3.3 g/dL (2.2-4.2); Glucose 124 mg/dL (74-106); High Density Lipoprotein 42 mg/dL; Potassium 4.1 mmol/L (3.5-5.1); Protein, Total 7.2 g/dL (6.4-8.2); Sodium Level 138 mmol/L (136-145); Triglycerides 83 mg/dL; Very Low Density Lipoprotein 17 mg/dL (5-40)
[2023-07-13 12:52] LABS: Hemoglobin A1c 6.1 % (3.8-5.6)
[2023-07-13 13:13] LABS: Amphetamine Urine VISTA NEGATIVE (<1000 ng/mL); Barbiturate Urine VISTA NEGATIVE (< 200 ng/mL); Benzodiazepine Urine VISTA NEGATIVE (< 200 ng/mL); Cocaine Urine VISTA NEGATIVE (< 300 ng/mL); Ecstacy Urine VISTA NEGATIVE (< 500 ng/mL); Methadone Urine VISTA NEGATIVE (< 300 ng/mL); PCP Urine VISTA NEGATIVE (< 25 ng/mL); THC Urine VISTA POSITIVE (< 50 ng/mL); Vista UDS pH Range 4
== END | disposition home or self-care (01) ==
PROVIDERS: PCP Family Medicine; Referring Provider Anesthesiology Pain Medicine; Visit Provider Anesthesiology Pain Medicine
DX: F11.20 Opioid dependence, uncomplicated (principal); E11.69 Type 2 diabetes mellitus with other specified complication; I25.10 Atherosclerotic heart disease of native coronary artery without angina pectoris
CPT/HCPCS: 36415; 80053; 80061; 80307; 83036; 85025

== ENCOUNTER → 2023-08-01 | Outpatient (CLI) | payer BC, SELFPAY ==
[2017-09-29 14:27] VITALS: BMI 32.5
--- NOTE | 2023-08-01 11:55 | RAD_ITS ---
INDICATION: PNEUMONIA EXAMINATION/TECHNIQUE: X-RAY - XR Chest 2 Views COMPARISON: Prior study dated: 11/25/2019 FINDINGS: LINES/DEVICES: Left chest wall pacer with leads over the right atrium, right ventricle, and coronary sinus. LUNGS: The lungs are hyperexpanded. No consolidation, edema or effusion. No pneumothorax. MEDIASTINUM AND CARDIOVASCULAR STRUCTURES: Cardiac silhouette not enlarged. Central airways and mediastinal contour are unremarkable. BONES AND SOFT TISSUES: Unremarkable. RAD/Chest PA and Lateral IMPRESSION: Hyperexpanded, clear lungs. Electronically Signed: Alberto Reinoso MD at 13:35 EDT ,
[2023-08-01 15:14] LABS: Absolute Lymphocyte Count 1.52 X10^3/uL (0.83-4.51); Absolute Neutrophil Count 5.4 X10^3/uL (2.0-7.7); Basophil# 0.05 X10^3/uL; Basophil% 0.6 % (0-1); Eosinophil# 0.04 X10^3/uL; Eosinophils% 0.5 % (0-5); Hematocrit 47.4 % (40-54); Hemoglobin 15.7 g/dL (13.0-16.5); Lymphocyte # 1.52 X10^3/ul (0.83-4.51); Lymphocyte % 19.2 % (19-41); Mean Corp Hgb Conc 33.1 g/dL (32-36); Mean Corpuscular Hgb 32.1 pg (27.0-32.0); Mean Corpuscular Volume 96.9 fL (80-94); Mean Platelet Vol. 11.2 fl (6.2-12.0); Monocyte# 0.92 X10^3/uL; Monocyte% 11.6 % (0-10); NRBC Flagged by Analyzer 0 % (0-5); Neutrophil # 5.37 X10^3/uL (2.7-7.7); Neutrophil % 67.7 % (47-70); Platelet Count 164 K/mm3 (150-450); RBC Distribution Width CV 12.9 % (11.6-14.6); Red Blood Count 4.89 M/mm3 (4.6-6.2); White Blood Count 7.9 K/mm3 (4.4-11.0)
== END | disposition home or self-care (01) ==
LOC: MTLAB 11:52
PROVIDERS: PCP Family Medicine; Referring Provider Family Medicine; Visit Provider Family Medicine
DX: J18.9 Pneumonia, unspecified organism (principal)
CPT/HCPCS: 36415; 71046; 85025

== ENCOUNTER → 2023-08-10 | Outpatient (CLI) | payer BC, SELFPAY ==
[2017-09-29 14:27] VITALS: BMI 32.5
[2023-08-10 13:54] LABS: Amphetamine Urine VISTA NEGATIVE (<1000 ng/mL); Barbiturate Urine VISTA NEGATIVE (< 200 ng/mL); Benzodiazepine Urine VISTA NEGATIVE (< 200 ng/mL); Cocaine Urine VISTA NEGATIVE (< 300 ng/mL); Ecstacy Urine VISTA NEGATIVE (< 500 ng/mL); Methadone Urine VISTA NEGATIVE (< 300 ng/mL); PCP Urine VISTA NEGATIVE (< 25 ng/mL); THC Urine VISTA POSITIVE (< 50 ng/mL); Vista UDS pH Range 6
== END | disposition home or self-care (01) ==
PROVIDERS: PCP Family Medicine; Visit Provider Anesthesiology Pain Medicine
DX: F11.20 Opioid dependence, uncomplicated (principal)
CPT/HCPCS: 80307

== ENCOUNTER → 2023-11-15 | Outpatient (CLI) | payer BC, SELFPAY ==
[2017-09-29 14:27] VITALS: BMI 32.5
--- OUTSIDE RECORDS SUMMARY | 2023-11-15 15:27 | XMS RPT_ITS | CCD ---
Author Name Unknown Address [address] [place] [address] Organization [facility] Care Team Providers Care Impression Printer Name Role Phone Gretchen RN, Lenora Villanueva Unavailable Unavailable Gretchen HANDY, Lenora Villanueva Unavailable Unavailable [facility] Nurse Unavailable Unavailable Shivani Jain Unavailable Estefany HANDY, Nasreen Parra Unavailable Gretchen HANDY, Lenora Villanueva Unavailable Unavailable ROZINA Ivey, Ariane Cottrell Unavailable UnavailHoa Neri Primary Care Provider Unavailable Primary Care Provider UnavailHoa Neri MD Primary Care Provider HOA BLANDON Referring Unavailable HOA BLANDON Consulting Unavailable DR VIRY ORTIZ Attending Unavaila ble ANGEL, DR VIRY Awad Primary Care Unavaila ble ANGEL, DR VIRY Awad Admitting Unavaila ble PROVIDER, UNKNOWN Consulting Unavailable Pcp, No Primary Care Provider UnavailARMANDO Chadwick Consulting Unavailable ALEJANDRO TERRELL Attending Unavailable ALEJANDRO TERRELL Admitting Unavailable VIRY ORTIZ III (HIST) Referring Unavailable Hoa Blandon MD Primary Care Provider Hoa Blandon MD Primary Care Provider HOA BLANDON Primary Care Unavailable FALGUNI ZARATE Attending Unavailable HOA BLANDON Primary Care Unavailable HOA BLANDON Primary Care Unavailable HOA BLANDON Primary Care Unavailable HOA BLANDON Primary Care Unavailable FALGUNI ZARATE Attending Unavailable BRIANNA DEVLIN Attending Unavailable HOA BLANDON Primary Care Unavailable HOA BLANDON Primary Care Unavailable Allergies Allergy Classification Reported Allergen(s) Allergy Type Date of Onset Reaction(s) Facility (3 sources) bee venom Propensity to adverse reactions to drug 1 Anaphylaxis [facility] (6 sources) Morphine; Translations: [MORPHINE] Drug Allergy 1 Nausea And Vomiting, Vomiting [facility] Work Phone: (1 source) Morphine Drug Allergy [facility] Repository (2 sources) Bees; Translations: [BEES] Propensity to adverse reactions [address] [facility] Work Phone: (1 source) Honey bee venom Propensity to adverse reactions 1 Anaphylaxis [facility] Medications Current Medications Medication Drug Class(es) Dates Sig (Normalized) Sig (Original) acetaminophen 325 mg oral tablet (2 sources) Start: 02-22-2022 acetaminophen (TYLENOL) tablet 650 mg Completed/Discontinued Medications Medication Drug Class(es) Dates Sig (Normalized) Sig (Original) amiodarone hydrochloride 200 mg oral tablet (13 sources) Antiarrhythmic Start: 11-12-2022 End: 09-14-2023 take 1 tablet by mouth once daily amiodarone (Pacerone) 200 MG tablet Indications: Paroxysmal atrial fibrillation (HCC) Take 1 tablet (200 mg) by mouth daily. 90 tablet 3 01/06/2023 09/14/2023 Discontinued (Duplicate order) Problems Active Problems Problem Classification Problem Date Documented Da te Episodic/Chronic Acute myocardial infarction (7 sources) Non-ST elevation (NSTEMI) myocardial infarction; Translations: [Non-ST elevation (NSTEMI) myocardial infarction] Onset: 09-13-2017 09-13-2017 Chronic Anxiety disorders (7 sources) Anxiety; Translations: [Anxiety disorder, unspecified] Onset: 11-20-2019 11-20-2019 Chronic Cardiac dysrhythmias (20 sources) Sustained ventricular tachycardia; Translations: [Ventricular tachycardia, monomorphic] Onset: 09-13-2017 Resolved: 01-06-2023 09-13-2017 Chronic Conduction disorders (20 sources) Cardiac defibrillator in situ; Translations: [Presence of automatic (implantable) cardiac defibrillator] Onset: 11-20-2019 11-27-2019 Chronic Congestive heart failure; nonhypertensive (14 sources) Acute systolic heart failure; Translations: [Acute systolic (congestive) heart failure] Onset: 11-20-2019 11-20-2019 Chronic Coronary atherosclerosis and other heart disease (20 sources) Coronary atherosclerosis; Translations: [Multi vessel coronary artery disease] Onset: 09-13-2017 09-13-2017 Chronic Diabetes mellitus without complication (10 sources) Type 2 diabetes mellitus without complication; Translations: [Type 2 diabetes mellitus without complications] Onset: 09-20-2017 09-20-2017 Chronic Disorders of lipid metabolism (7 sources) Hyperlipidemia; Translations: [Hyperlipidemia, unspecified] Onset: 11-17-2019 11-17-2019 Chronic Essential hypertension (17 sources) Hypertensive disorder; Translations: [Essential (primary) hypertension] Onset: 09-20-2017 Resolved: 08-26-2020 09-20-2017 Chronic Other aftercare (1 source) Drug therapy finding; Translations: [Encounter for therapeutic drug level monitoring] 09-14-2023 Episodic Other aftercare (2 sources) Encounter for therapeutic drug level monitoring; Translations: [Encounter for therapeutic drug level monitoring] Onset: 09-14-2023 Episodic Other aftercare (2 sources) Other retirement (current) drug therapy; Translations: [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] Onset: 09-14-2023 Episodic Other nutritional; endocrine; and metabolic disorders (6 sources) Body mass index 30+ - obesity; Translations: [Body mass index (BMI) 32.0-32.9, adult] Onset: 09-20-2017 11-20-2019 Chronic Substance-related disorders (10 sources) Nicotine dependence; Translations: [Nicotine dependence, unspecified, uncomplicated] Onset: 09-20-2017 09-20-2017 Chronic Unclassified (1 source) Body mass index (BMI) 32.0-32.9, adult; Translations: [Body mass index (BMI) 32.0-32.9, adult] Onset: 09-20-2017 09-20-2017 Chronic Unclassified (7 sources) Placement of stent in coronary artery ; Translations: [Presence of coronary angioplasty implant and graft] Onset: 09-13-2017 09-13-2017 Unclassified (1 source) Ventricular tachyarrhythmia; Translations: [Ventricular tachyarrhythmia] Onset: 08-22-2022 Unclassified (1 source) Ventricular tachycardia, unspecified (HCC); Translations: [Ventricular tachycardia, unspecified (HCC)] Onset: 08-09-2022 Unclassified (1 source) Ventricular tachycardia, unspecified; Translations: [Ventricular tachycardia, unspecified] Onset: 08-09-2022 Past or Other Problems Problem Classification Problem Date Documented Da te Episodic/Chronic Coma, stupor, brain damage (1 source) Daytime somnolence; Translations: [Somnolence] Onset: 09-20-2017 09-20-2017 Episodic Nonspecific chest pain (5 sources) Chest pain; Translations: [Chest pain, unspecified] Onset: 11-25-2019 11-27-2019 Episodic Other and ill-defined heart disease (5 sources) Heart disease; Translations: [Heart disease, unspecified] Onset: 02-22-2022 Resolved: 01-06-2023 Chronic Other gastrointestinal disorders (3 sources) Stool DNA-based colorectal cancer screening positive; Translations: [Other fecal abnormalities] Onset: 12-29-2022 12-29-2022 Episodic Other non-traumatic joint disorders (1 source) Pain in lower limb; Translations: [Pain in unspecified knee] Onset: 03-07-2006 03-07-2006 Episodic Zuly-; endo-; and myocarditis; cardiomyopathy (except that caused by tuberculosis or sexually transmitted disease) (11 sources) Pericardial effusion; Translations: [Acute pericarditis] Onset: 11-27-2019 Resolved: 01-06-2023 11-27-2019 Episodic Residual codes; unclassified (6 sources) Acute pain; Translations: [Pain, unspecified] Onset: 11-21-2019 11-21-2019 Episodic Unclassified (1 source) Ventricular tachycardia, unspecified (HCC); Translations: [Ventricular tachycardia, unspecified (HCC)] Onset: 03-09-2023 Unclassified (1 source) Ventricular tachycardia, unspecified; Translations: [Ventricular tachycardia, unspecified] Onset: 01-06-2023 Results Test Name Value Interpretation Reference Range Facil ity Vital Signs Date Time Vital Sign Value Performing Clinician Teresita doyle 09-14-2023 13:00-0500 Body mass index (BMI) [Ratio] 26.8 kg/m2 Brianna Kay CNP Work Phone: [facility] 09-14-2023 13:00-0500 Body weight 102.51 kg Brianna Devlin APRN [employer] [facility] Work Phone: [facility] [employer] 09-14-2023 13:00-0500 Diastolic blood pressure 70 mm[Hg] Brianna Devlin PARTNERSHIP DEVELOPMENT MANAGER - [employer] Work Phone: [facility] 09-14-2023 13:00-0500 Heart rate 77 /min Brianna Devlin PARTNERSHIP DEVELOPMENT MANAGER [employer] Work Phone: [facility] [employer] 09-14-2023 13:00-0500 SaO2% (BldA) [Mass fraction] 95 % Brianna Devlin APRN - [employer] Work Phone: [facility] [employer] 09-14-2023 13:00-0500 Systolic blood pressure 110 mm[Hg] Brianna Devlin PARTNERSHIP DEVELOPMENT MANAGER - [employer] Work Phone: [facility] [employer] 01-06-2023 14:47-0400 Body height 195.6 cm Falguni Zarate MD Work Phone: [facility] [employer] 01-06-2023 14:47-0400 Body mass index (BMI) [Ratio] 31.42 kg/m2 Falguni Zarate MD Work Phone: [facility] [employer] 01-06-2023 14:47-0400 Body weight 120.2 kg Falguni Zarate MD Work Phone: [facility] 01-06-2023 14:47-0400 Diastolic blood pressure 80 mm[Hg] Falguni Zarate MD Work Phone: [facility] [employer] 01-06-2023 14:47-0400 Heart rate 60 /min Falguni Zarate MD Work Phone: [facility] [employer] 01-06-2023 14:47-0400 SaO2% (BldA) [Mass fraction] 96 % Falguni Zarate MD Work Phone: [facility] [employer] 01-06-2023 14:47-0400 Systolic blood pressure 112 mm[Hg] Falguni Zarate MD Work Phone: [facility] [employer] 02-23-2022 08:06-0400 Body temperature 97.39 [degF] Falguni Zarate MD Work Phone: [facility] 02-23-2022 08:06-0400 Heart rate 78 /min Falguni Zarate MD Work Phone: [facility] 02-23-2022 08:06-0400 Respiratory rate 20 /min Falguni Zarate MD Work Phone: [facility] 02-23-2022 08:06-0400 SaO2% (BldA) [Mass fraction] 94 % aFlguni Zarate MD Work Phone: [facility] 02-23-2022 04:00-0400 Diastolic blood pressure 83 mm[Hg] Falguni Zarate MD Work Phone: [facility] 02-23-2022 04:00-0400 Systolic blood pressure 133 mm[Hg] Falguni Zarate MD Work Phone: [facility] 02-22-2022 17:15-0400 Body height 195.6 cm Falguni Zarate MD Work Phone: [facility] 02-22-2022 17:15-0400 Body mass index (BMI) [Ratio] 30.5 kg/m2 Falguni Zarate MD Work Phone: [facility] 02-22-2022 17:15-0400 Body weight 116.67 kg Falguni Zarate MD Work Phone: [facility] 11-20-2019 08:16-0500 Diastolic blood pressure 83 mm[Hg] Srinivas Leach MD Work Phone: [facility] Work Phone: 11-20-2019 08:16-0500 Heart rate 67 /min Srinivas Tellez Work Phone: [facility] Work Phone: 11-20-2019 08:16-0500 Systolic blood pressure 123 mm[Hg] Srinivas Leach MD Work Phone: [facility] Work Phone: 11-20-2019 08:00-0500 Body temperature 98.01 [degF] Srinivas Tellez Work Phone: [facility] Work Phone: 11-20-2019 08:00-0500 Respiratory rate 16 /min Srinivas Tellez Work Phone: [employer] Work Phone: 11-20-2019 08:00-0500 SaO2% (BldA) [Mass fraction] 95 % Srinivas Leach MD Work Phone: [employer] Work Phone: 11-19-2019 20:00-0500 Body mass index (BMI) [Ratio] 30.69 kg/m2 Srinivas Leach MD Work Phone: [employer] Work Phone: 11-19-2019 20:00-0500 Body weight 114.35 kg Srinivas Tellez Work Phone: [employer] Work Phone: 11-16-2019 23:00-0500 Body height 193 cm Srinivas Tellez Work Phone: [employer] Work Phone: 09-20-2017 12:03-0500 BMI (Body Mass Index) 32.5 kg/m2 Lenora Godinez RN [facility] Work Phone: 09-20-2017 12:03-0500 BP Diastolic 82 mm[Hg] Lenora Godinez RN [facility] Work Phone: 09-20-2017 12:03-0500 BP Systolic 146 mm[Hg] Lenora Godinez RN [facility] Work Phone: 09-20-2017 12:03-0500 Height 193.04 cm Lenora Godinez RN [facility] Work Phone: 09-20-2017 12:03-0500 Pulse (Heart Rate) 60 /min Lenora Godinez RN [facility] Work Phone: 09-20-2017 12:03-0500 Respiratory Rate 18 /min [facility] Work Phone: 09-20-2017 12:03-0500 Weight 121.11 kg Lenora Godinez RN [facility] Work Phone: Encounters Encounter Date Encounter Type Care Provider Facility Start: 09-14-2023 End: 09-14-2023 ambulatory BRIANNA DEVLIN [facility] Start: 09-14-2023 End: 09-14-2023 Office outpatient visit 25 minutes [facility] PARTNERSHIP DEVELOPMENT MANAGER [employer] Work Phone: [facility] Procedures Date Procedure Procedure Detail Performing Clinician Start: 09-14-2023 Ecg routine ecg w/least 12 lds trcg only w/o i&r Falguni Zarate MD Work Phone: Start: 08-23-2022 ICD CLINIC CHECK Jamey Estrella MD Work Phone: Start: 08-22-2022 Thyrotropin [Units/volume] in Serum or Plasma Fagluni Zarate MD Work Phone: Start: 02-23-2022 Basic metabolic panel calcium total Lenora O'Shell PARTNERSHIP DEVELOPMENT MANAGER [employer] Work Phone: Start: 02-22-2022 Ecg routine ecg w/least 12 lds w/i&r Lenora O'Shell PARTNERSHIP DEVELOPMENT MANAGER [employer] Work Phone: Start: 02-22-2022 EP NURSE PROCEDURE REPORT Physician Gene travis Start: 02-22-2022 End: 02-22-2022 Coagulation time activated Falguni saavedra MD Work Phone: Start: 02-22-2022 End: 02-22-2022 Coagulation time activated Falguni saavedra MD Work Phone: Start: 02-16-2022 Lipid 1996 panel - Serum or Plasma Falguni Zarate MD Work Phone: Start: 12-06-2019 Echo tthrc r-t 2d w/wom-mode compl spec&colr d Jarvis Hall Work Phone: Start: 11-20-2019 ELECTROPHYSIOLOGY Falguni Zarate MD Work Phone: Start: 11-20-2019 Radiologic exam chest 2 views Lenora O'Shell PARTNERSHIP DEVELOPMENT MANAGER [employer] Work Phone: Start: 11-20-2019 Gluc bld gluc mntr dev cleared fda spec home use Yemi Hinds MD Work Phone: Start: 11-20-2019 Basic metabolic panel calcium total Tabitha Cate Cruz MD Work Phone: Start: 11-19-2019 OPERATIVE REPORT 3m Scanning Start: 11-19-2019 EP NURSE PROCEDURE REPORT 3m Scanning Start: 11-19-2019 Gluc bld gluc mntr dev cleared fda spec home use Yemi Hinds MD Work Phone: Start: 11-19-2019 Ecg routine ecg w/least 12 lds w/i&r Falguni Zarate MD Work Phone: Start: 11-19-2019 Ecg routine ecg w/least 12 lds w/i&r Falguni Zarate MD Work Phone: Start: 11-19-2019 Basic metabolic panel calcium total Tabitha Cruz MD Work Phone: Start: 11-18-2019 Gluc bld gluc mntr dev cleared fda spec home use Srinivas Leach MD Work Phone: Start: 11-18-2019 Gluc bld gluc mntr dev cleared fda spec home use Srinivas Leach MD Work Phone: Start: 11-18-2019 Gluc bld gluc mntr dev cleared fda spec home use Srinivas Leach MD Work Phone: Start: 11-18-2019 Basic metabolic panel calcium total Tabitha Cruz MD Work Phone: Start: 11-17-2019 Gluc bld gluc mntr dev cleared fda spec home use Srinivas Leach MD Work Phone: Start: 11-17-2019 Echo tthrc r-t 2d w/wom-mode compl spec&colr d Tabitha Cruz MD Work Phone: Start: 11-17-2019 Gluc bld gluc mntr dev cleared fda spec home use Srinivas Leach MD Work Phone: Start: 11-17-2019 Assay of troponin quantitative Shailesh Flores MD Work Phone: Start: 11-17-2019 Gluc bld gluc mntr dev cleared fda spec home use Srinivas Leach MD Work Phone: Start: 11-17-2019 Ecg routine ecg w/least 12 lds w/i&r Tabitha Cruz MD Work Phone: Start: 11-17-2019 Chest x-ray 1 view frontal Lee villanueva MD Work Phone: Start: 11-17-2019 Assay of troponin quantitative Tabitha Cruz MD Work Phone: Start: 11-17-2019 Basic metabolic panel calcium total Tabitha Cruz MD Work Phone: Start: 11-17-2019 Lipid panel Tabitha parra MD Work Phone: Start: 11-16-2019 Ecg routine ecg w/least 12 lds w/i&r Tabitha Cruz MD Work Phone: Start: 09-20-2017 End: 09-20-2017 DJN Rom Vora MD Work Phone: Start: 09-20-2017 End: 09-20-2017 Ecg routine ecg w/least 12 lds w/i&r Rom Vora MD Work Phone: Start: 09-20-2017 End: 09-20-2017 Follow Up Appt 6 weeks Rom Vora MD Work Phone: Plan of Treatment Date Care Activity Detail Author Start: 04-16-2031 DTaP/Tdap/Td vaccine (2 - Td or Tdap) DTaP/Tdap/Td vaccine (2 - Td or Tdap) [facility] Start: 04-16-2031 DTaP/Tdap/Td Vaccines (2 - Td or Tdap) DTaP/Tdap/Td Vaccines (2 - Td or Tdap) [facility] Start: 08-22-2025 DIABETES SCREEN DIABETES SCREEN [facility] Start: 03-15-2024 End: 03-15-2024 Patient encounter procedure 03/15/2024 11:15 AM EDT Office Visit [facility] [address] [place] [address] Falguni Zarate MD [address] [id number] [facility] Start: 01-10-2024 End: 01-10-2024 Professional / ancillary services management 01/10/2024 8:30 AM EDT Ancillary Procedure [facility] [address] [place] [address] [facility] Start: 09-14-2023 End: 09-14-2024 Comprehensive metabolic 1998 panel - Serum or Plasma Comprehensive metabolic panel Lab Routine Paroxysmal atrial fibrillation (HCC) Encounter for monitoring amiodarone therapy Expected: 09/14/2023 (Approximate), Expires: 09/14/2024 [facility] Work Phone: Immunizations Immunization Date Immunization Notes Care Provider Fa [facility] 01-28-2021 Pfizer SARS-CoV-2 Vaccination Falguni Zarate MD Work Phone: [facility] 01-07-2021 Pfizer SARS-CoV-2 Vaccination Falguni Zarate MD Work Phone: [facility] 09-14-2019 influenza virus vacc ine, unspecified formulation Falguni Zarate MD Work Phone: [facility] Payers Date Payer Category Payer Unknown [id number] 2020 Unknown [id number] [id number] 2014 Unknown xxxxxxxxxxxx [id number] 1960 Unknown [id number] Social History Date Type Detail Facility Start: 11-26-2019 End: 01-06-2023 Tobacco smoking status NHIS Former smoker [facility] End: 11-16-2016 History of tobacco use Current smoker [employer] Work Phone: Start: 11-26-2019 End: 09-14-2023 Cigarettes smoked current (pack per day) - Reported [employer] Work Phone: Start: 11-26-2019 End: 09-14-2023 Alcohol intake Lifetime non-drinker (finding) [employer] Work Phone: Start: 11-16-2019 End: 11-17-2019 History SDOH Alcohol Frequency 1 [employer] Work Phone: Start: 1960 Sex Assigned At Not on file S [employer] Work Phone: Start: 11-16-2019 End: 01-06-2023 Tobacco use and exposure Smokeless tobacco non-user [employer] Work Phone: Start: 1960 Sex Assigned At Male [facility] Start: 02-12-2022 End: 01-05-2023 Exposure to SARS-CoV-2 (event) Not sure [facility] Tobacco smoking stat us [facility] Tobacco smoking consumption unknown [facility] End: 11-16-2016 History of tobacco use Cigarette Smoker [facility] [employer] Start: 03-09-2023 End: 09-14-2023 Tobacco use panel [facility] Start: 08-13-2022 Gender identity Identifies as male gender (finding) [facility] Start: 08-13-2022 Sexual orientation Heterosexual (fin ding) [facility] Medical Equipment Procedure Code Equipment Code Equipment Origin al Text Equipment Identifier Dates Abbo-Card [id number] Quadra Assura [id number] [id number] Start: 11-18-2019 Abbo-Card [id number] Durata [id number] Start: 11-18-2019 Clinical Notes 11-20-2019 to 09-14-2023 Brianna Devlin APRN - [facility] - 09/14/2023 1:00 PM ESTTelephone Encounter - Kadi Julian RN - 09/08/2023 4:10 PM ESTTelephone Encounter - Kadi Julian RN - 09/08/2023 4:10 PM EST Note Date & Type Note Facility 09-14-2023 History of Presen t illness Narrative Images from the original note were not included. [facility] [address] [facility] [address] Dept: [phone] Dept Visit type: Established : 1960 Reason for Visit: 6 Month Follow-up Assessment and Plan 1. Cardiac resynchronization therapy defibrillator (DIRECTOR OF INSTITUTIONAL RESEARCH-D) in place 2. Paroxysmal atrial fibrillation (HCC) - ECG 12 lead - CLINIC PERFORMED 3. LBBB (left bundle branch block) 4. VT (ventricular tachycardia) (HCC) He will continue amiodarone 200mg daily. He follows yearly with eye doctor. CXR completed at [facility] Amiodarone labs ordered for monitoring. He will wait till next office visit to discuss possible repeat ablation. Device check today, report pending. Denies device shocks. TSH and CMP ordered today. Follow up for Follow up six months Dr Zarate. Subjective Sheeba Manning is a 62 [address] Zarate. Past medical history of ventricular tachycardia initially diagnosed in 2017 , after he presented to [facility]. At that time, he had stents placed and was discharged on medication. In 2019, He was transferred to [facility] for recurrent ventricular tachycardia with a DIRECTOR OF INSTITUTIONAL RESEARCH-D placed due to heart failure, left bundle branch block and low ejection fraction. He had been treated with amiodarone, but in February 2022 he underwent ablation to get him off the amiodarone. In December, he had recurrent ventricular tachycardia and placed back on amiodarone at [facility]. Presents for six month follow up. No device shocks. Family presents. Main complaint today his back pain and follows with pain management. He would like to wait until next visit to discuss a repeat ablation. Sheeba Manning Review of Systems Constitutional: Negative for chills, fatigue and fever. HENT: Negative for congestion and nosebleeds. Respiratory: Negative for shortness of breath. Cardiovascular: Negative for chest pain, palpitations and leg swelling. Gastrointestinal: Negative for blood in stool, nausea and vomiting. Genitourinary: Negative for hematuria. Musculoskeletal: Positive for back pain (follows with pain mgt). Negative for gait problem. Neurological: Negative for dizziness, syncope and light-headedness. Allergies Allergen Reactions Bee Venom Anaphylaxis Pt isn't sure if it was a bee or another type of insect. Morphine Nausea And Vomiting Other reaction(s): Vomiting Outpatient Medications Prior to Visit Medication Sig Dispense Refill amiodarone (Pacerone) 200 MG tablet Take by mouth daily. aspirin 81 MG EC tablet Take 81 mg by mouth in the morning. carvedilol (Coreg) 25 MG tablet Take 1 tablet (25 mg) by mouth 2 times daily. 180 tablet 3 empagliflozin (Jardiance) 25 MG Take 25 mg by mouth in the morning. furosemide (Lasix) 20 MG tablet Take 20 mg by mouth in the morning. lisinopril 40 MG tablet Take 1 tablet (40 mg) by mouth in the morning. 90 tablet 3 Meloxicam (MOBIC PO) Take by mouth 1 (one) time each day. metFORMIN XR (Glucophage-XR) 500 MG 24 hr tablet Take 500 mg by mouth in the morning and 500 mg in the evening. Mounjaro 5 MG/0.5ML solution pen-injector INJECT 5 mg under skin weekly nitroglycerin (Nitrostat) 0.4 MG SL tablet up to max of 3 total doses. If no relief after 1 dose, call 911. rosuvastatin (Crestor) 40 MG tablet TAKE 1 TABLET BY MOUTH EVERY DAY nightly traMADol (Ultram) 50 MG tablet Take by mouth 2 times daily. cyclobenzaprine (Flexeril) 10 MG tablet Take 10 mg by mouth every 8 hours as needed. amiodarone (Pacerone) 200 MG tablet Take 1 tablet (200 mg) by mouth daily. 90 tablet 3 cyclobenzaprine (Flexeril) 5 MG tablet Take 5 mg by mouth every 8 hours as needed. lidocaine (Lidoderm) 5 % patch Apply 1 patch topically. No facility-administered medications prior to visit. Past Medical History: Diagnosis Date Back pain Bladder cancer (HCC) CAD, multiple vessel stents 2018 Chest pain Depression Diabetes mellitus (HCC) GERD (gastroesophageal reflux disease) Hyperlipidemia Hypertension AK (mitral incompetence) Ventricular tachycardia, monomorphic (HCC) Social History Tobacco Use Smoking status: Former Packs/day: 1.50 Years: 42.00 Additional pack years: 0.00 Total pack years: 63.00 Types: Cigarettes Quit date: 11/16/2016 Years since quittin.8 Smokeless tobacco: Never Substance Use Topics Alcohol use: Never Past Surgical History: Procedure Laterality Date A-V CARDIAC PACEMAKER INSERTION Left 11/19/2019 ICD ABLATION OF DYSRHYTHMIC FOCUS 02/22/2022 VT ablation BACK SURGERY BLADDER SURGERY CARDIAC CATHETERIZATION 08/23/2022 [employer] CORONARY ANGIOPLASTY 2019 CORONARY ANGIOPLASTY WITH STENT PLACEMENT 2017 Family History Problem Relation Name Age of Onset Diabetes Sister Diabetes Father Diabetes Brother Diabetes Brother Heart attack Father x7 Heart attack Brother Pacemaker Brother with ICD Objective Vitals: 09/14/23 1300 BP: 110/70 BP Location: Right arm Patient Position: Sitting BP Cuff Size: Large adult Pulse: 77 SpO2: 95% Weight: 226 lb (103 kg) Physical Exam Constitutional: General: He is not in acute distress. Appearance: Normal appearance. He is normal weight. He is not ill-appearing. Cardiovascular: Rate and Rhythm: Normal rate and regular rhythm. Heart sounds: No murmur heard. Pulmonary: Effort: Pulmonary effort is normal. No respiratory distress. Breath sounds: Normal breath sounds. No wheezing or rales. Abdominal: General: Bowel sounds are normal. Palpations: Abdomen is soft. Musculoskeletal: Cervical back: Normal range of motion. Right lower leg: No edema. Left lower leg: No edema. Skin: Comments: Incision well healed. Neurological: Mental Status: He is alert and oriented to person, place, and time. Gait: Gait abnormal. Data Reviewed and Summarized No results found for: EFBP , PLVEF , LVEFPHYS , LVEF2D , EF Review of tests/labs done/ordered within my specialty: EKG in office: Reviewed with patient. Review of tests/labs done/ordered outside my specialty: Independent interpretation of tests: JOSE Kelly CNP documented in this encounter [facility] 09-08-2023 Telephone encounter Note Scheduled DIRECTOR OF INSTITUTIONAL RESEARCH-D remote received. LMOVM with remote results and next remote date 01-10-24. Told to call if any questions. [facility] 09-08-2023 Miscellaneous Notes Scheduled DIRECTOR OF INSTITUTIONAL RESEARCH-D remote received. LMOVM with remote results and next remote date 01-10-24. Told to call if any questions. documented in this encounter [facility] 01-06-2023 History of Presen t illness Narrative [facility] Cardiology [facility] CARDIOLOGY [address] [facility] [address] Dept: [phone] Dept Loc: [phone] Visit type: Established : 1960 Chief Complaint: Chief Complaint Patient presents with 3 Month Follow Up History of Present Illness: Sheeba Manning is a 62 y.o. male presents for follow-up. He has a history of ventricular tachycardia first diagnosed in October 2017 when he presented with sustained ventricular tachycardia, acute chest pain and acute AK. By report stents were placed and his ejection fraction was 40%. This was at [facility] and he was transferred up to [facility] in 2019 with recurrent ventricular tachycardia and he had a defibrillator placed in 2019 which was a DIRECTOR OF INSTITUTIONAL RESEARCH-D. This was due to heart failure, low ejection fraction and left bundle branch block. He was on amiodarone. In February 2022 he wanted to come off the amiodarone as we performed an ablation and then wean him off the amiodarone. He did well until a few months ago when he got admitted to [facility] with recurrent ventricular tachycardia and he was put on intravenous and then oral amiodarone. He had a repeat heart catheterization and there was no need for revascularization. Since then he has done well without recurrent shocks. He did have 1 recent episode of ventricular tachycardia below the rate cut off of the device that was asymptomatic for palpitations or dizziness and terminated spontaneously. It occurred when he went to the emergency room with severe back pain and he said he was in acute severe pain. Since then he has been on treatment for the back and pain and spasms have improved and he has had no further arrhythmia. He denies increased shortness of breath, PND, orthopnea edema. He denies chest pain. His ejection fraction in July when he came in with ventricular tachycardia was 30%. Past Medical History: Past Medical History: Diagnosis Date Back pain Bladder cancer (CMS/HCC) (HCC) CAD, multiple vessel stents 2018 Chest pain Depression Diabetes mellitus (HCC) GERD (gastroesophageal reflux disease) Hyperlipidemia Hypertension AK (mitral incompetence) Ventricular tachycardia, monomorphic Past Surgical History Past Surgical History: Procedure Laterality Date A-V CARDIAC PACEMAKER INSERTION Left 11/19/2019 ICD ABLATION OF DYSRHYTHMIC FOCUS 02/22/2022 VT ablation BACK SURGERY BLADDER SURGERY CARDIAC CATHETERIZATION 08/23/2022 [employer] CORONARY ANGIOPLASTY 2019 CORONARY ANGIOPLASTY WITH STENT PLACEMENT 2017 Family History Family History Problem Relation Name Age of Onset Diabetes Sister Diabetes Father Diabetes Brother Diabetes Brother Heart attack Father x7 Heart attack Brother Pacemaker Brother with ICD Social History Social History Tobacco Use Smoking status: Former Packs/day: 1.50 Years: 42.00 Pack years: 63.00 Types: Cigarettes Quit date: 11/16/2016 Years since quittin.1 Smokeless tobacco: Never Substance Use Topics Alcohol use: Never Drug use: Never Comment: Caffeine: none Allergies: Allergies Allergen Reactions Bee Venom Anaphylaxis Pt isn't sure if it was a bee or another type of insect. Morphine Nausea And Vomiting Other reaction(s): Vomiting Medications: Current Outpatient Medications: amiodarone (Pacerone) 200 MG tablet, Take 1 tablet (200 mg) by mouth daily., Disp: 90 tablet, Rfl: 1 aspirin 81 MG EC tablet, Take 81 mg by mouth in the morning., Disp: , Rfl: carvedilol (Coreg) 25 MG tablet, Take 1 (one) Tablet by mouth two times daily, Disp: , Rfl: cyclobenzaprine (Flexeril) 10 MG tablet, Take 10 mg by mouth every 8 hours as needed., Disp: , Rfl: empagliflozin (Jardiance) 25 MG, Take 25 mg by mouth in the morning., Disp: , Rfl: furosemide (Lasix) 20 MG tablet, Take 20 mg by mouth in the morning., Disp: , Rfl: lidocaine (Lidoderm) 5 % patch, Apply 1 patch topically., Disp: , Rfl: lisinopril 40 MG tablet, Take 40 mg by mouth in the morning., Disp: , Rfl: metFORMIN XR (Glucophage-XR) 500 MG 24 hr tablet, Take 500 mg by mouth in the morning and 500 mg in the evening., Disp: , Rfl: Mounjaro 2.5 MG/0.5ML solution pen-injector, 2.5 mg., Disp: , Rfl: rosuvastatin (Crestor) 40 MG tablet, TAKE 1 TABLET BY MOUTH EVERY DAY nightly, Disp: , Rfl: cyclobenzaprine (Flexeril) 5 MG tablet, Take 5 mg by mouth every 8 hours as needed., Disp: , Rfl: nitroglycerin (Nitrostat) 0.4 MG SL tablet, up to max of 3 total doses. If no relief after 1 dose, call 911., Disp: , Rfl: Review of Systems: Review of Systems Constitutional: Positive for fatigue. HENT: Negative. Eyes: Negative. Respiratory: Negative. Cardiovascular: Positive for palpitations. HR 160 during ER visit in November 2022 at [facility] for back pain - see device clinic report Endocrine: Negative. Genitourinary: Negative. Musculoskeletal: Positive for back pain (lower back pain / ER visit in Nov). Skin: Negative. Allergic/Immunologic: Negative. Neurological: Negative. Hematological: Negative. Psychiatric/Behavioral: Negative. Physical Examination: Vitals: Vitals: 01/06/23 1447 BP: 112/80 BP Location: Right arm Patient Position: Sitting Pulse: 60 SpO2: 96% Weight: 265 lb (120 kg) Height: 6' 5 (1.956 m) Body mass index is 31.42 kg/m . Physical Exam Laboratory Tests: Lab Results Component Value Date WBC 11.6 (H) 02/23/2022 HGB 15.1 02/23/2022 MCV 94.4 02/23/2022 Lab Results Component Value Date GLUCOSE 111 (H) 02/23/2022 CALCIUM 9.0 02/23/2022 NA 133 (L) 02/23/2022 K 4.7 02/23/2022 CO2 19 (L) 02/23/2022 CL 104 02/23/2022 BUN 22 (H) 02/23/2022 CREATININE 0.76 02/23/2022 @LASTCMP@ Lab Results Component Value Date CHLPL 149 02/16/2022 CHLPL 134 05/23/2020 CHOL 118 11/17/2019 Lab Results Component Value Date TRIG 116 02/16/2022 TRIG 103 05/23/2020 TRIG 80 11/17/2019 Lab Results Component Value Date HDL 49 02/16/2022 HDL 42 05/23/2020 HDL 36 (L) 11/17/2019 Lab Results Component Value Date LDLCALC 77 02/16/2022 LDLCALC 71 05/23/2020 NT PRO BNP Date Value Ref Range Status 11/20/2019 1,108 (H) 0 - 125 pg/mL Final Assessment and Plan: No diagnosis found. Amiodarone been effective at preventing shock so we will continue the amiodarone and beta-hardik. He is on appropriate treatment for his coronary disease and heart failure. His DIRECTOR OF INSTITUTIONAL RESEARCH-D function is normal. He will follow-up in 4 months. We could repeat the ablation for right now given his severe back problems and pain he opted for just medical management which is certainly reasonable since has been effective. documented in this encounter [facility] 08-24-2022 Note HNO ID: [id number] Author: Lauren Landa RN Service: Care Management Author Type: Registered Nurse Type: Care Mgt Initial Assessment Filed: 08/24/2022 2:08 PM Note Text: CARE MANAGEMENT: ASSESSMENT AND DISCHARGE PLAN SERVICE DATE: August 24, 2022 SERVICE TIME: 2:06 PM PRIMARY CARE PHYSICIAN: No Pcp Phone: None Primary Contact: Extended Emergency Contact Information Primary Emergency Contact: Melaine Manning Mobile Relation: Spouse ADMISSION STATUS: Inpatient Insurance Provider: [employer] PPO NEEDS PRIOR TO DISCHARGE Needs Prior to Discharge: Discharge Prescriptions;Pharmacy Bedside Delivery POTENTIAL TRANSITION PLANS Home Based on clinical judgement, Care Management will address the following needs: No transitional/discharge planning needs at this time Patient's perception of need for this admission: Fast HR ADVANCE DIRECTIVES Current Advance Directive: None Family Services Manager Attempted to Assist with AD Completion: Yes Action: Education Provided MS/BEHAVIOR Baseline Mental Status Prior to this Illness what was the patient's Baseline Mental Status?: Alert AND Oriented Prior to this illness, has anyone described the patient having any of the following behaviors?: Not Applicable Relationship of the informant to the patient:: Self READMISSION Last Discharge Date: N/A Is this Within the Past 30 days? From what level of care did patient present?: Home Last discharge within 30 days: No PATIENT SCREEN Patient/Combat Control Stated Goals: To have reduction in symptoms;To be cured/healed;To return home to life as it was Under the care of a PCP?: Yes, Internal Provider Provider Name: Dr. Schmidt () [phone] Last Known Visit: 2 mos. ago Does the patient have transportation upon discharge?: Yes Situation: Spouse to transport Use of any community resources?: No Does the patient have a stable and supportive living arrangement and home setting?: Yes Situation: From home with spouse Melanie Recommendation: Return home at discharge Are there any potential risks or gaps identified by risk/functional/fall,etc. scores in the EMR?: No Any potential risks related to substance abuse and/or behavioral health?: No Based on clinical judgement, Care Management will address the following needs: No transitional/discharge planning needs at this time CAREGIVER ASSESSMENT Caregiver is ready, willing and able to meet the patient's needs as recommended by the inter-professional team:: No Caregiver needed Patient's transition needs and plan for meeting these needs: Home with self-care MEDICAL SOCIAL Food Insecurity: Not on file Financial Resource Strain: Not on file Transportation Needs: Not on file Housing Stability: Not on file BEHAVIORAL/COGNITIVE FUNCTIONAL No medical discharge barriers identified at this time. No social discharge barriers identified at this time. No behavioral/cognitive discharge barriers identified at this time. No functional discharge barriers identified at this time. FREEDOM OF CHOICE EXPLAINED: [place] of Choice Given: No Reason Not Given: No placements necessary Are you interested in bedside delivery of your medications? Yes ASSESSMENT AND PLAN: From home with spouse. Indep. Works. Drives. No DME. (+) PCP (+) RX. Fills scripts at [facility]. Anticipate home at discharge. to transport. No needs identified. SIGNATURE: Lauren Landa RN PATIENT NAME: Sheeba Manning DATE: August 24, 2022 TIME: 2:06 PM CONTACT #: [phone] [facility] 08-23-2022 Note HNO ID: [id number] Author: Kenyatta Felipe RN Service: Electrophysiology Author Type: Registered Nurse Type: Progress Notes Filed: 08/23/2022 6:00 PM Note Text: ICD evaluation/testing at bedside per order Dr Terrell. Interrogation shows multiple episodes MMVT (all zones) with 36 ATP and 4 shocks delivered . RA/RV testing stable, no LV capture tested to max voltage. Full report in Chart Review, cardiac tab. [facility] 08-23-2022 Note HNO ID: [id number] Author: Grady Montalvo MD Service: Electrophysiology Author Type: Physician Type: Progress Notes Filed: 08/23/2022 2:00 PM Note Text: Patient seen and examined in radiographer cardiac catheterization and again at bedside present in room during discussion Had an episode of Slow VT CL 410ms at 635 this AM with some lightheadedness. No other new symptom Alert oriented x 3 CVS Regular rhythm nl intensity S1S2 Lungs good iar entry LE no edema Cath results reviewed with Dr Todd Telemetry labs reviewed Impression VT s/p ICD shocks in setting of CAD isch CMP and prior recent ablation by Dr Zavaleta at [facility] in February 2022. Plan Continue Amiodarone - Can reduce IV amio to 0.5mg/min and in 12 hours to discontinue IV amiodarone. Continue Oral amiodarone 400mg daily Continue Carvedilol statin asa If patient remains free of VT, discharge and Follow up with Dr Zavaleta for further management. Discussed care plan with team Discussed care plan with patient and his . Grady Montalvo MD [facility] 08-23-2022 Note HNO ID: [id number] Author: Lauren Barlow DO Service: Cardiovascular Medicine Author Type: Resident Type: Progress Notes Filed: 08/23/2022 3:54 PM Note Text: Attestation signed by Grady Montalvo MD at 08/24/2022 7:36 AM Attending Note I personally saw and examined the patient. I reviewed the resident's note. I agree with the resident's assessment and plan unless otherwise noted. Signature: Grady Montalvo MD Date: 08/24/2022 Time: 7:36 AM CARDIOVASCULAR INTENSIVE CARE UNIT (CVICU) Progress Note PATIENT NAME: hSeeba Manning REASON FOR ADMISSION: DATE OF ADMISSION: August 23, 2022 LOS: 1 Subjective HPI 62 year old White male with a history of known coronary artery disease, (prior PCI to LCx and RCA in 2017, performed at outside facility), known history of hypertension, hyperlipidemia, cardiomyopathy s/p DIRECTOR OF INSTITUTIONAL RESEARCH-D follows with [facility] pacemaker clinic, was at his usual state of health till yesterday when he was biking and received 3 ICD shocks and 3 more in the ED. He was taken emergently to outside facility on 08.21.22 Patient was reported to be in Vtach/vfib, received twice 150mg amiodarone bolus and started on amiodarone drip in the ED. As per chart review Pt underwent EPS with successful Catheter ablation on 02/22/[address] Santo of [facility]. After which his amiodarone was discontinued for concerns of increasing shortness of breath as a side effect of amiodarone use. His last echocardiogram from 09/17/2018 showed normal LV size, EF 45%, no evidence of diastolic dysfunction. Stress test 09/18/2018 (pharmacological myocardial perfusion stress test). Pharmacologic myocardial perfusion stress test with no evidence of ischemia. Previous inferior apical infarct cannot be completely excluded. Heart cath on 11/07/2019 showed Global LV systolic dysfunction- Severe LVEF: by LV gram 25-30 % , Depressed Left Ventricular systolic function - Severe Non obstructive coronary arteries,Widely patent LCX, RCA and PDA stents with minimal ISR. Non-obstructive disease of proximal LAD. INTERVAL EVENTS Overnight Acute Events: Yes. Had 2 minute and then 30s run of Vtach and was given Amiodarone bolus 150mg. This am, pt appears anxious and is afraid of getting shocked. Pt was reassured that he is being closely monitored and on the right medications. His will be coming in to provide support. He was feeling chest flutter this AM but currently asymptomatic but wheeze noted on exam. Today's pertinent results include: Phos- 2.6 K- 4.1 Mg- 2.0 Vitals: afebrile, hypertensive 152/82, RR 15, 95% O2, tele: PVC,permanent pacemaker Consultation updates, all recs are appreciated: EP Plan : Continue Amiodarone - Can reduce IV amio to 0.5mg/min and in 12 hours to discontinue IV amiodarone. Continue Oral amiodarone 400mg daily Continue Carvedilol statin asa If patient remains free of VT, discharge and Follow up with Dr Zavaleta for further management. Objective OBJECTIVE Patient Vitals for the past 4 hrs: BP Pulse Resp SpO2 08/23/22 0700 152/82 74 15 95 % 08/23/22 0640 158/81 63 18 -- 08/23/22 0636 -- (!) 144 19 -- 08/23/22 0600 140/84 60 18 94 % 08/23/22 0500 142/94 62 11 92 % 08/23/22 0400 146/90 66 15 93 % Body mass index is 30.83 kg/m?., No results found for: HBA1C Intake/Output Summary (Last 24 hours) at 08/23/2022 0725 Last data filed at 08/23/2022 0600 Gross per 24 hour Intake 1477 ml Output 800 ml Net 677 ml Physical Exam Constitutional: Appearance: He is diaphoretic. Comments: anxious HENT: Head: Normocephalic and atraumatic. Nose: Nose normal. Mouth/Throat: Mouth: Mucous membranes are moist. Pharynx: Oropharynx is clear. Eyes: Extraocular Movements: Extraocular movements intact. Conjunctiva/sclera: Conjunctivae normal. Pupils: Pupils are equal, round, and reactive to light. Neck: Vascular: No carotid bruit. Cardiovascular: Rate and Rhythm: Normal rate and regular rhythm. Pulses: Normal pulses. Comments: Paced rate Pulmonary: Effort: Pulmonary effort is normal. Breath sounds: Wheezing present. Abdominal: General: Abdomen is flat. Bowel sounds are normal. Palpations: Abdomen is soft. Musculoskeletal: Cervical back: Normal range of motion. No tenderness. Right lower leg: No edema. Left lower leg: No edema. Skin: General: Skin is warm. Neurological: General: No focal deficit present. Mental Status: He is alert. Psychiatric: Comments: Tearful and anxious LABORATORY: Cardiac:No results for input(s): CKTEST, CKMB, CKMBP, TROPONIN, BNP in the last 168 hours. BLOOD GAS: CBC: Recent Labs 08/22/22 0209 WBC 10.68 HB 15.6 HCT 46.1 PLT 189 MCV 93.1 RDWCV 13.3 NEUTP 74.9 ABSNEUT 8.01* LYMPHP 14.8 MONO (more content not included)... [facility] 08-22-2022 Note HNO ID: [id number] Author: Viry Kilpatrick (Drug Abuse Program Coordinator) Service: Pharmacy Author Type: Member Certification Manager Type: Plan of Care Filed: 08/22/2022 1:07 PM Note Text: PHARMACY MEDICATION REVIEW Patient Name: Sheeba Manning : 1960 The following medications were updated within the EDUCATION PROGRAM MANAGER medication list: Medications ADDED to EDUCATION PROGRAM MANAGER medication list JARDIANCE 25 mg tablet OTHER Yes Yes aspirin, enteric coated (ASPIRIN, ENTERIC COATED) 81 mg EC tablet Patient Yes Yes carvedilol (COREG) 25 mg tablet OTHER Yes Yes furosemide (LASIX) 20 mg tablet OTHER Yes Yes lisinopril (ZESTRIL, PRINIVIL) 40 mg tablet OTHER Yes Yes metFORMIN ER (GLUCOPHAGE XR) 500 mg 24 hr tablet OTHER Yes Yes rosuvastatin (CRESTOR) 40 mg tablet OTHER Yes Yes [facility]. Pt. states he takes these medications Medications CHANGED on EDUCATION PROGRAM MANAGER medication list na Medications REMOVED from EDUCATION PROGRAM MANAGER medication list EPIPEN 0.3 MG/0.3 ML (1:1,000) IM INJECTOR Other Not reported by pt. Not found in [employer] [facility] Additional comments: I was able to talk with patient and his about his home medications. The pt. transferred from [facility] in [place], [place] but states he was not there long before coming to [facility]. He states he was given amiodarone there but has not been on that medication at home since about 02/22/2022. He is now taking the 7 medications recorded below and I have added them to the EDUCATION PROGRAM MANAGER list. I found all these medications in [employer] [facility] except the aspirin which the pt. states he takes because he has a stent. I have removed 1 medication from the EDUCATION PROGRAM MANAGER list (see above). Required follow up for nursing: Medication history completed by Historian. No nursing follow up required. The below information represents the best possible medication history: Yes Medication history completed by: Member Certification Manager: Viry Kilpatrick ([employer]) Source of history: Patient: Reliability of source: Appears reliable, clearly identified: Medication name, Medication dose, Medication route, and Medication frequency, Pharmacy records: [facility] , and Medication nonadherence identified: No barriers noted Reconciliation completed: No, pharmacist not yet reviewed Patient interested in Bedside Delivery Services or using [facility] Pharmacy at discharge? No Preferred outpatient pharmacy: [facility] [address] [place] [phone] - [phone] Allergies: Bees Comment:ANAPHALACTIC REACTION Morphine Vomiting Prior to Admission Medications Prescriptions Last Dose Informant Patient Reported? Taking? JARDIANCE 25 mg tablet OTHER Yes Yes Sig: Take 25 mg by mouth daily with breakfast. aspirin, enteric coated (ASPIRIN, ENTERIC COATED) 81 mg EC tablet Patient Yes Yes Sig: Take 81 mg by mouth once daily. carvedilol (COREG) 25 mg tablet OTHER Yes Yes Sig: Take 1 (one) Tablet by mouth two times daily furosemide (LASIX) 20 mg tablet OTHER Yes Yes Sig: Take 20 mg by mouth once daily. lisinopril (ZESTRIL, PRINIVIL) 40 mg tablet OTHER Yes Yes Sig: Take 40 mg by mouth once daily. metFORMIN ER (GLUCOPHAGE XR) 500 mg 24 hr tablet OTHER Yes Yes Sig: Take 500 mg by mouth twice daily. rosuvastatin (CRESTOR) 40 mg tablet OTHER Yes Yes Sig: TAKE 1 TABLET BY MOUTH EVERY DAY nightly Facility-Administered Medications: None Viry Kilpatrick ([employer]) phone [phone] 08/22/2022 [facility] 08-22-2022 Note HNO ID: [id number] Author: Jamey Estrella MD Service: Cardiovascular Medicine Author Type: Physician Type: Progress Notes Filed: 08/23/2022 8:38 AM Note Text: [facility] CVICU PROGRESS NOTE Service Date: 08/22/2022 Service Time: 6:27 AM 62 year old White male with a history of CAD, BERT to LCX 08/2017; staged complex PCI with BERT to PDA and RCA 09/2017, cardiomyopathy, ventricular dysrhythmia, left bundle branch block, s/p DIRECTOR OF INSTITUTIONAL RESEARCH-D follows with [facility] pacemaker clinic, hyperlipidemia and hypertension who presented to outside ED on 08/21/2022 for the complaint of feeling funny in his chest, lightheadedness, and experiencing 3 shocks enroute to the ED and then 3 more in the ED. Patient was reported to be in Vtach/vfib, received twice 150mg amiodarone bolus and started on amiodarone drip in the ED. As per chart review Pt underwent EPS with successful Catheter ablation on 02/22/[address] Santo of [facility]. After which his amiodarone was discontinued for concerns of increasing shortness of breath as a side effect of amiodarone use. His last echocardiogram from 09/17/2018 showed normal LV size, EF 45%, no evidence of diastolic dysfunction. Stress test 09/18/2018 (pharmacological myocardial perfusion stress test). Pharmacologic myocardial perfusion stress test with no evidence of ischemia. Previous inferior apical infarct cannot be completely excluded. Heart cath on 11/07/2019 showed Global LV systolic dysfunction- Severe LVEF: by LV gram 25-30 % , Depressed Left Ventricular systolic function - Severe Non obstructive coronary arteries,Widely patent LCX, RCA and PDA stents with minimal ISR. Non-obstructive disease of proximal LAD. EKG: No ischemic changes, biventricular paced rhythm with LBBB Interval History: Patient is feeling okay but very anxious and depressed about what happened. He doesnot have any chest pain but when these episodes happen he will feel his heart beating very fast. Telemetry: Paced rhythm BP 151/81 Hr 78 NOTE from cardiology visit: 01/28/22: He has had some slow ventricular tachycardia over the years but no ICD shocks. Over the last 6 months the episodes have increased in frequency.He has had a few brief episodes of atrial fibrillation but nothing significant. Patient had his first recurrence of ventricular tachycardia since the ablation. We will continue observation. He had a side effect to the amiodarone and given his age I would not recommend this agent. If the arrhythmia becomes significant we can repeat the ablation or use a different antiarrhythmic drug. Inpatient Medications: Current Facility-Administered Medications Medication Dose Route Frequency potassium chloride ER 20-40 mEq tab(s) (K-DUR, KLOR-CON) 20-40 mEq ORAL/FEEDING TUBE PRN Or potassium chloride iv piggyback 20 mEq/100 mL 20 mEq INTRAVENOUS PRN magnesium sulfate 2 g in sterile water 50 ml 2 g INTRAVENOUS PRN phosphorus 500 mg tab(s) (K PHOS NEUTRAL) 500 mg ORAL/FEEDING TUBE PRN(NO DISPENSE) calcium gluconate 4 g in NaCl 0.9% 250 mL 4 g INTRAVENOUS PRN NaCl 0.9% iv flush bag 20 mL INTRAVENOUS PRN sodium chloride 0.9 % (flush) 3-5 mL (BD POSIFLUSH) 3-5 mL INTRAVENOUS q 12 H carvedilol 25 mg tab(s) (COREG) 25 mg ORAL BID w MEALS amiodarone 400 mg tab(s) (PACERONE) 400 mg ORAL DAILY aspirin 81 mg chewable tab(s) 81 mg ORAL DAILY rosuvastatin 40 mg tab(s) (CRESTOR) 40 mg ORAL AT BEDTIME amiodarone iv infusion 360 mg in D5W 200 mL (NEXTERONE) 1 mg/min INTRAVENOUS CONTINUOUS Followed by amiodarone iv infusion 360 mg in D5W 200 mL (NEXTERONE) 0.5 mg/min INTRAVENOUS CONTINUOUS metFORMIN ER 500 mg tab(s) (GLUCOPHAGE XR) 500 mg ORAL BID w MEALS empagliflozin 25 mg tab(s) (JARDIANCE) 25 mg ORAL DAILY sodium chloride 0.9 % (flush) 2-10 mL (BD POSIFLUSH) 2-10 mL INTRAVENOUS DIRECTED PRN And perflutren lipid microspheres 1.1 mg/mL 1.3 mL injection (DEFINITY) 1.3 mL INTRAVENOUS DIRECTED PRN heparin iv infusion 25,000 units in NaCl 0.45% 250 mL LOW DOSE/ACS NOMOGRAM 0-3,000 Units/hr INTRAVENOUS CONTINUOUS And heparin RATE CHANGE bolus 1,000-4,000 Units for subtherapeutic PTTAC results 1,000-4,000 Units INTRAVENOUS PRN lisinopril 40 mg tab(s) (ZESTRIL, PRINIVIL) 40 mg ORAL DAILY Home Medications: EPIPEN 0.3 MG/0.3 ML (1:1,000) IM INJECTORas neededDisp: Rfl: 0 Physical Exam: 08/22/22 0300 08/22/22 0400 08/22/22 0500 08/22/22 0600 BP: 137/110 115/69 140/81 151/81 Pulse: 70 75 67 78 Resp: 15 18 14 18 Temp: 36.5 ?C (97.7 ?F) TempSrc: Temporal SpO2: 94% 89% 93% 94% Weight: Height: Intake/Output: Intake/Output Summary (Last 24 hours) at 08/22/2022 0627 Last data filed at 08/22/2022 0500 Gross per 24 hour Intake 164 ml Output 900 ml Net -736 ml General: Awake and alert, in no distress, cooperative Neck: Supple without JVD or Lym (more content not included)... [facility] 02-23-2022 Note Name: Sheeba Manning Date of : 1960 Date of Admission: 02/22/2022 Date of Discharge: 02/23/2022 Admitting physician: Falguni Zarate MD Discharge Attending: JOSE Kelly CNP, Falguni Zarate MD Primary Care Physician: Hoa Blandon MD Review of Systems: Review of Systems Constitutional: Negative for chills, fatigue and fever. HENT: Negative for congestion and nosebleeds. Respiratory: Negative for shortness of breath. Cardiovascular: Negative for chest pain, palpitations and leg swelling. Gastrointestinal: Negative for abdominal distention, abdominal pain and blood in stool. Genitourinary: Negative for hematuria. Neurological: Negative for dizziness, syncope and light-headedness. Hematological: Does not bruise/bleed easily. Psychiatric/Behavioral: Negative for agitation and confusion. Physical Exam: Physical Exam Vitals reviewed. Constitutional: General: He is not in acute distress. Appearance: Normal appearance. He is well-developed. He is obese. He is not ill-appearing. HENT: Head: Normocephalic and atraumatic. Eyes: General: No scleral icterus. Right eye: No discharge. Left eye: No discharge. Neck: Thyroid: No thyromegaly. Vascular: No JVD. Cardiovascular: Rate and Rhythm: Normal rate and regular rhythm. No extrasystoles are present. Heart sounds: Normal heart sounds, S1 normal and S2 normal. Heart sounds not distant. No murmur heard. No friction rub. No gallop. Pulmonary: Effort: Pulmonary effort is normal. No respiratory distress. Breath sounds: Normal breath sounds. No wheezing or rales. Abdominal: General: Bowel sounds are normal. Palpations: Abdomen is soft. Musculoskeletal: General: No deformity. Normal range of motion. Cervical back: Normal range of motion. Right lower leg: No edema. Left lower leg: No edema. Skin: General: Skin is warm and dry. Neurological: General: No focal deficit present. Mental Status: He is alert and oriented to person, place, and time. Psychiatric: Mood and Affect: Mood normal. Thought Content: Thought content normal. Vitals: 02/22/22 2300 02/23/22 0000 02/23/22 0400 02/23/22 0806 BP: 124/72 130/76 133/83 Pulse: 64 68 66 78 Resp: 20 Temp: 97.7 ?F (36.5 ?C) 97.5 ?F (36.4 ?C) 97.4 ?F (36.3 ?C) TempSrc: Temporal Temporal Temporal SpO2: 96% 97% 94% Weight: Height: Reason for Admission: Ventricular Tachycardia Consultants: N/A HOSPITAL ADMISSION PROBLEM LIST: Patient Active Problem List Diagnosis ? CAD, multiple vessel ? Ventricular tachycardia, monomorphic (HCC) ? Hyperlipidemia ? Body mass index (bmi) 32.0-32.9, adult ? Nicotine dependence ? Type 2 diabetes mellitus without complication ([facility]) ? Hypertensive disorder ? Acute HFrEF (heart failure with reduced ejection fraction) ([facility]) ? Anxiety ? Cardiac resynchronization therapy defibrillator (DIRECTOR OF INSTITUTIONAL RESEARCH-D) in place ? Acute pain ? Chest pain ? Pericardial effusion ? Acute pericarditis ? Chronic systolic (congestive) heart failure (HCC) ? LBBB (left bundle branch block) ? Paroxysmal atrial fibrillation (HCC) ? Cardiac disease ? Ventricular tachycardia (HCC) ? VT (ventricular tachycardia) ([facility]) Procedures: Pending HOSPITAL COURSE : Sheeba Manning is a 61 y.o. male presented for EPS with successful VT Ablation without complication. Monitored overnight on telemetry with no arrhythmias. Right groin no hematoma or ecchymosis. Amiodarone discontinued. Asprin 325mg X 1 month post VT ablation then decrease to aspirin 81mg daily. Activity restrictions were emphasized to the patient prior to discharge. Follow up scheduled in one month. Last Labs: Lab Results Component Value Date WBC 11.6 (H) 02/23/2022 HGB 15.1 02/23/2022 HCT 46.0 02/23/2022 MCV 94.4 02/23/2022 PLT 183 02/23/2022 Lab Results Component Value Date NA 133 02/23/2022 K 4.7 02/23/2022 CL 104 02/23/2022 CO2 19 02/23/2022 BUN 22 02/23/2022 CREATININE 0.76 02/23/2022 GLUCOSE 111 02/23/2022 CALCIUM 9.0 02/23/2022 Lab Results Component Value Date CHOL 149 02/11/2022 Lab Results Component Value Date TRIG 116 02/11/2022 Lab Results Component Value Date HDL 49 02/11/2022 Lab Results Component Value Date LDLCALC 77 02/11/2022 LDLCHOLESTEROL 66 11/17/2019 Final Principle Discharge Diagnosis:Ventricular Tachycardia Secondary Discharge diagnosis: CAD, HLP, HTN Discharge Medications: Medication List CHANGE how you take these medications * aspirin 325 MG EC tablet Take 1 tablet by mouth daily X 1 month What changed: You were already taking a medication with the same name, and this prescription was added. Make sure you understand how and when to take each. * aspirin 81 MG EC tablet Take 1 tablet by mouth daily Restart in one month. Start taking on: March 26, 2022 What changed: ? additional instructions ? These instructions start on March 26, 2022 (more content not included)... [facility] 02-22-2022 History of Presen t illness Narrative Transferred to [facility]. documented in this encounter [facility] Work Phone: 02-22-2022 Hospital Discharg e instructions Lenora Chao APRN - [facility] - 02/22/2022 Post Electrophysiology/Ablation Discharge Instructions 1. Observe groin site for swelling, redness, warmth, or bleeding. If these occur, notify your doctor listed below. 2. No driving or climbing stairs today. 3. Do not lift anything over 10 pounds for the next 3 days. 4. Slight swelling or bruising is expected. For oozing, apply pressure for 10-15 minutes 5. For brisk bleeding that does not stop, or if your foot or leg becomes cold, come to the Emergency department 6. Keep groin site covered for 5 days. Change bandage daily. 7. No tub bathing or swimming. Showers only for the next 5 days. 8. Resume pre-procedure diet 9. Take all medications as prescribed by your doctor Medication changes None You will need to schedule a 4 week follow appointment with your doctor. Please call to schedule your appointment if not already scheduled at discharge. Procedure Sedation Instructions 1. If you have received sedation: you must have someone drive you home 2. You should not drive a car, operate machinery, drink alcohol or perform any activity that requires alertness for the rest of the day. The effects of the sedative should be gone by tomorrow. documented in this encounter [facility] Work Phone: 11-20-2019 History of Presen t illness Narrative 1230 11/20/2019 Pt discharged with all belongings, education, and medications by wheelchair with to home. CARDIOLOGY PROGRESS NOTE Chart and interval events reviewed. Reason for Visit VT/ S/P DIRECTOR OF INSTITUTIONAL RESEARCH-D SUBJECTIVE: Sheeba Manning states mild discomfort at device site. Denies chest pain, sob or palpitations. Sitting at side of bed returned from CXR. SCHEDULED MEDICATIONS: sodium chloride flush 10 mL Intravenous 2 times per day carvedilol 25 mg Oral BID WC insulin lispro 2 Units Subcutaneous TID WC amiodarone 400 mg Oral TID sodium chloride flush 10 mL Intravenous 2 times per day lisinopril 40 mg Oral Daily insulin lispro 0-6 Units Subcutaneous TID WC clopidogrel 75 mg Oral Daily aspirin 81 mg Oral Daily rosuvastatin 40 mg Oral Nightly Active Problems: CAD, multiple vessel Ventricular tachycardia, monomorphic (HCC) Hyperlipidemia Hypertension Resolved Problems: * No resolved hospital problems. * Review of Systems: Review of Systems Constitutional: Negative for chills, diaphoresis and fever. HENT: Negative for nosebleeds. Eyes: Negative for visual disturbance. Respiratory: Negative for cough, shortness of breath and wheezing. Cardiovascular: Negative for chest pain, palpitations and leg swelling. Gastrointestinal: Negative for abdominal pain, blood in stool, constipation, diarrhea, nausea and vomiting. Genitourinary: Negative for hematuria. Musculoskeletal: Negative for myalgias. Skin: Negative for rash. Neurological: Negative for dizziness and syncope. Hematological: Does not bruise/bleed easily. Psychiatric/Behavioral: Negative for dysphoric mood and suicidal ideas. The patient is nervous/anxious. Denies Depression VITAL SIGNS: Vitals: 11/20/19 0500 11/20/19 0600 11/20/19 0800 11/20/19 0816 BP: 126/85 138/85 123/83 123/83 Pulse: 66 63 65 67 Resp: 16 Temp: 98 F (36.7 C) TempSrc: Oral SpO2: 93% 95% 95% Weight: Height: Intake/Output Summary (Last 24 hours) at 11/20/2019 0932 Last data filed at 11/20/2019 0609 Gross per 24 hour Intake 500 ml Output 1075 ml Net -575 ml Patient Vitals for the past 96 hrs (Last 3 readings): Weight 11/19/19 2000 252 lb 1.6 oz (114.4 kg) 11/18/19 0613 252 lb 3.2 oz (114.4 kg) 11/16/19 2300 262 lb 5.6 oz (119 kg) Physical Exam: Physical Exam Constitutional: General: He is not in acute distress. Appearance: Normal appearance. He is well-developed. He is not diaphoretic. HENT: Mouth/Throat: Pharynx: No oropharyngeal exudate. Eyes: General: No scleral icterus. Right eye: No discharge. Left eye: No discharge. Neck: Thyroid: No thyromegaly. Vascular: No JVD. Cardiovascular: Rate and Rhythm: Normal rate and regular rhythm. Chest Wall: PMI is not displaced. Pulses: Normal pulses. Radial pulses are 2+ on the left side. Dorsalis pedis pulses are 2+ on the right side and 2+ on the left side. Heart sounds: Normal heart sounds. No murmur. No gallop. Pulmonary: Effort: No accessory muscle usage or respiratory distress. Breath sounds: Normal breath sounds. Abdominal: General: Bowel sounds are normal. There is no distension or abdominal bruit. Palpations: Abdomen is soft. There is no shifting dullness or hepatomegaly. Tenderness: There is no abdominal tenderness. Musculoskeletal: Normal range of motion. Skin: General: Skin is warm and dry. Neurological: Mental Status: He is alert and oriented to person, place, and time. Psychiatric: Mood and Affect: Mood normal. Behavior: Behavior normal. Data: Scheduled Meds: Reviewed Continuous Infusions: dextrose CBC: Recent Labs 11/19/19 0009 11/20/19224 WBC 10.3 15.4* HGB 13.4 13.5 HCT 38.4* 39.9* PLT 180 174 BMP: Recent Labs 11/19/19 0009 11/20/19224 NA 135 138 K 4.5 4.3 CL 106 106 CO2 24 22 BUN 17 21* CREATININE 0.68 0.71 INR:No results for input(s): INR in the last 72 hours. No results for input(s): BNP in the last 72 hours. TSH: No results found for: TSH Cardiac Injury Profile: Recent Labs 11/17/19 0954 TROPONINI 0.062* Lipid Profile: Lab Results Component Value Date TRIG 80 11/17/2019 HDL 36 11/17/2019 CHOL 118 11/17/2019 EKG: See Report Telemetry Reviewed: A-V Paced 60-70s. No events on tele overnight. Echo: See Report IMPRESSIONS/RECOMMENDATIONS: 1. Monomorphic VT: S/p DIRECTOR OF INSTITUTIONAL RESEARCH-d for secondary prevention. Plan to stop amiodarone 3 months post procedure. Follow arrhyhtmia burden to determine observation vs VT ablation. Recheck EF in 3 months. Postoperative instructions reviewed with patient and booklet given. Device check normal function CXR reviewed good lead placement and no pneumothorax Follow up in two weeks in device clinic and [address] Zarate 2. Acute Pain: Post DIRECTOR OF INSTITUTIONAL RESEARCH-D OARRS reviewed. Post Vicodin script printed and given to patient. 3.HFrEF: [facility]U team following. On GDMT. Recommend repeat Echo in 3 months. 4.CAD: Hx of stents. Follows with Dr Vora in [place]. Electronicallysigned by JOSE Kelly CNP on 11/20/2019 at 9:32 AM Patient partial given back to him. Placed in mouth Spoke to TYLER Mata. Waiting for orders CARDIOLOGY PROGRESS NOTE Chart and interval events reviewed. Reason for Visit Sustained VT SUBJECTIVE: Sheeba Manning denies acute complaints ON. He continues to feel anxious about his situation, will start PRN vistaril. HR has continued to be in the low 40-60's range, Coreg is held. He denies symptoms at this time and feels he is doing well. EF 30% by echo, hypokinesis of inferolateral myocardium. Plan for BiVICD today. SCHEDULED MEDICATIONS: magnesium sulfate 1 g Intravenous Once [Held by provider] insulin lispro 2 Units Subcutaneous TID vancomycin 1,000 mg Intravenous Once amiodarone 400 mg Oral TID sodium chloride flush 10 mL Intravenous 2 times per day lisinopril 40 mg Oral Daily [Held by provider] insulin lispro 0-6 Units Subcutaneous TID clopidogrel 75 mg Oral Daily aspirin 81 mg Oral Daily rosuvastatin 40 mg Oral Nightly Active Problems: CAD, multiple vessel Ventricular tachycardia, monomorphic (HCC) Hyperlipidemia Hypertension Resolved Problems: * No resolved hospital problems. * Review of Systems: Review of Systems Constitutional: Negative for chills, diaphoresis, fatigue and fever. HENT: Negative for nosebleeds and tinnitus. Eyes: Negative for visual disturbance. Respiratory: Negative for cough, choking, chest tightness, shortness of breath and wheezing. Cardiovascular: Negative for chest pain, palpitations and leg swelling. Gastrointestinal: Negative for abdominal distention, abdominal pain, blood in stool, constipation, diarrhea, nausea and vomiting. Musculoskeletal: Negative for joint swelling. Skin: Negative for color change and pallor. Neurological: Negative for dizziness, syncope, weakness, light-headedness and headaches. Hematological: Does not bruise/bleed easily. Psychiatric/Behavioral: Negative for agitation and suicidal ideas. The patient is nervous/anxious. VITAL SIGNS: Vitals: 11/18/19 1100 11/18/19 1500 11/18/19200911/19/19 0536 BP: (!) 161/89 (!) 157/104 (!) 158/75 (!) 156/84 Pulse: 60 (!) 43 61 Resp: 18 18 14 Temp: 97.5 F (36.4 C) TempSrc: Oral SpO2: 97% 98% Weight: Height: No intake or output data in the 24 hours ending 11/19/19 0643 Patient Vitals for the past 96 hrs (Last 3 readings): Weight 11/18/19 0613 252 lb 3.2 oz (114.4 kg) 11/16/19 2300 262 lb 5.6 oz (119 kg) Physical Exam: Physical Exam Constitutional: General: He is not in acute distress. Appearance: Normal appearance. He is normal weight. He is not diaphoretic. HENT: Head: Normocephalic and atraumatic. Nose: Nose normal. Mouth/Throat: Mouth: Mucous membranes are moist. Pharynx: Oropharynx is clear. Eyes: General: No scleral icterus. Extraocular Movements: Extraocular movements intact. Pupils: Pupils are equal, round, and reactive to light. Neck: Musculoskeletal: Normal range of motion and neck supple. Cardiovascular: Rate and Rhythm: Regular rhythm. Bradycardia present. Pulses: Normal pulses. Heart sounds: Normal heart sounds. No murmur. Pulmonary: Effort: Pulmonary effort is normal. No respiratory distress. Breath sounds: Normal breath sounds. No wheezing, rhonchi or rales. Abdominal: General: Abdomen is flat. Bowel sounds are normal. There is no distension. Palpations: Abdomen is soft. Tenderness: There is no abdominal tenderness. Musculoskeletal: Normal range of motion. General: No swelling or tenderness. Lymphadenopathy: Cervical: No cervical adenopathy. Skin: General: Skin is warm and dry. Coloration: Skin is not jaundiced or pale. Findings: No bruising. Neurological: General: No focal deficit present. Mental Status: He is alert and oriented to person, place, and time. Mental status is at baseline. Cranial Nerves: No cranial nerve deficit. Psychiatric: Mood and Affect: Mood normal. Behavior: Behavior normal. Data: Scheduled Meds: Reviewed Continuous Infusions: dextrose CBC: Recent Labs 11/18/19 0007 11/19/19 0009 WBC 9.9 10.3 HGB 13.9 13.4 HCT 40.5 38.4* PLT 167 180 BMP: Recent Labs 11/18/19 0007 11/19/19 0009 NA 137 135 K 3.9 4.5 CL 104 106 CO2 25 24 BUN 16 17 CREATININE 0.81 0.68 INR:No results for input(s): INR in the last 72 hours. No results for input(s): BNP in the last 72 hours. TSH: No results found for: TSH Cardiac Injury Profile: Recent Labs 11/17/19 0016 11/17/19 0302 11/17/19 0954 TROPONINI 0.081* 0.085* 0.062* Lipid Profile: Lab Results Component Value Date TRIG 80 11/17/2019 HDL 36 11/17/2019 CHOL 118 11/17/2019 EKG: See Report Telemetry Reviewed: bradycardia with first degree Echo: See Report IMPRESSIONS/RECOMMENDATIONS: Sustained Ventricular Tachycardia - [place] EKG with monomorphic V tach in ED - Converted with amio gtt - Now Bradycardia with 1st degree block - DC amio gtt - Cont amio PO 400 TID - BiVICD today Bradycardia with First Degree AV block - Rate down to 40-60's after starting amio gtt - Asx - Cont to monitor, BP stable - BiV as above HFrEF - likely 2/2 to ICM given CAD - EF 20-25% last week on cath, was 40% following AK according to patient - TSH 4.27, T4 0.91 - BNP 1099 - CXR normal at [place] [facility] - NYHA class I, only feels general fatigue - continuing lisinopril, coreg - unsure if patient was supposed to be on Imdur - Echo with EF 30% and hypokinesis of inferolateral myocardium CAD - AK in 2018, 3 stents placed - Stents patent as 11/07/2019 - Trop 0.022-->0.085 - Continue aspirin, plavix, rosuvastatin - Hold Coreg given bradycardia HTN - BP elevated at 150s on arrival - According to patient, usually in 140s - continue home Coreg, lisinopril - holding HCTZ and hydralazine for now Anxiety - PRN vistaril DM - On metformin at home - Hgb A1c 7.5 - starting low dose SSI HLD - Chol 118, HDL 36, LDL 66, trig 80 - continue rosuvastatin 40 DVT ppx - Lovenox held for today Electronicallysigned by Shailesh Flores MD on 11/19/2019 at 6:43 AM Associated attestation - Yemi Hinds MD - 11/19/2019 10:49 AM EST I, Dr. Hinds, saw and evaluated the patient. I personally obtained the martínez and critical portions of the history and physical exam. I reviewed the chart, the Team's documentation, and discussed the patient with the Team. I agree with the Team's medical decision making and have edited the note to reflect my clinical findings and my assessment and plan. 59 yo male with hx CAD with SSCP s/p LHC at OSH with patent arteries. Patient with VT and transferred to [facility]. EF ~30% Plan is for BiV ICD today. Continue supportive care. .Nutrition rescreen completed. Chart reviewed. Patient to be monitored and followed by the diet video game technician.JONATAN Delcid CARDIOLOGY PROGRESS NOTE Chart and interval events reviewed. Reason for Visit VT and LBBB SUBJECTIVE: Sheeba Manning states no complaints. No CP or SOB. No VT since IV amio stopped, tolerating oral load, no N/V SCHEDULED MEDICATIONS: insulin lispro 2 Units Subcutaneous TID WC [START ON 11/19/2019] vancomycin 1,000 mg Intravenous Once amiodarone 400 mg Oral TID sodium chloride flush 10 mL Intravenous 2 times per day lisinopril 40 mg Oral Daily insulin lispro 0-6 Units Subcutaneous TID WC clopidogrel 75 mg Oral Daily aspirin 81 mg Oral Daily rosuvastatin 40 mg Oral Nightly Active Problems: CAD, multiple vessel Ventricular tachycardia, monomorphic (HCC) Hyperlipidemia Hypertension Resolved Problems: * No resolved hospital problems. * Review of Systems: Review of Systems Constitutional: Negative for activity change, fatigue and unexpected weight change. HENT: Negative for ear pain, hearing loss, nosebleeds and trouble swallowing. Eyes: Negative for photophobia and visual disturbance. Respiratory: Positive for shortness of breath. Negative for cough and wheezing. Cardiovascular: Negative for chest pain, palpitations and leg swelling. Gastrointestinal: Negative for abdominal pain, blood in stool, diarrhea, nausea and vomiting. Endocrine: Negative for heat intolerance and polyuria. Genitourinary: Negative for difficulty urinating and hematuria. Musculoskeletal: Negative for back pain, gait problem and joint swelling. Skin: Negative for rash and wound. Allergic/Immunologic: Negative for environmental allergies. Neurological: Negative for dizziness, syncope, speech difficulty, weakness, light-headedness, numbness and headaches. Hematological: Does not bruise/bleed easily. Psychiatric/Behavioral: Negative for sleep disturbance. The patient is not nervous/anxious. VITAL SIGNS: Vitals: 11/18/19 0500 11/18/19 0600 11/18/19 0613 11/18/19 0700 BP: (!) 146/71 (!) 164/107 (!) 161/100 Pulse: (!) 48 57 63 Resp: 18 Temp: 98.3 F (36.8 C) TempSrc: Oral SpO2: 97% Weight: 252 lb 3.2 oz (114.4 kg) Height: No intake or output data in the 24 hours ending 11/18/19 1128 Patient Vitals for the past 96 hrs (Last 3 readings): Weight 11/18/19 0613 252 lb 3.2 oz (114.4 kg) 11/16/19 2300 262 lb 5.6 oz (119 kg) Physical Exam: Physical Exam Constitutional: General: He is not in acute distress. Appearance: Normal appearance. He is well-developed. He is not ill-appearing. HENT: Head: Normocephalic and atraumatic. Nose: No congestion. Eyes: General: No scleral icterus. Conjunctiva/sclera: Conjunctivae normal. Pupils: Pupils are equal, round, and reactive to light. Neck: Thyroid: No thyromegaly. Vascular: No carotid bruit or JVD. Cardiovascular: Rate and Rhythm: Normal rate and regular rhythm. No extrasystoles are present. Heart sounds: Normal heart sounds, S1 normal and S2 normal. No murmur. No gallop. Pulmonary: Effort: Pulmonary effort is normal. No respiratory distress. Breath sounds: Normal breath sounds. No wheezing or rales. Abdominal: General: Bowel sounds are normal. Palpations: Abdomen is soft. There is no hepatomegaly, splenomegaly or mass. Tenderness: There is no abdominal tenderness. Musculoskeletal: Normal range of motion. General: No tenderness. Lymphadenopathy: Cervical: No cervical adenopathy. Skin: General: Skin is warm. Coloration: Skin is not jaundiced. Findings: No erythema or rash. Nails: There is no clubbing. Neurological: General: No focal deficit present. Mental Status: He is alert and oriented to person, place, and time. Coordination: Coordination normal. Psychiatric: Mood and Affect: Mood normal. Behavior: Behavior normal. Thought Content: Thought content normal. Data: Scheduled Meds: Reviewed Continuous Infusions: dextrose CBC: Recent Labs 11/17/19 0016 11/18/19 0007 WBC 9.8 9.9 HGB 13.4 13.9 HCT 38.7* 40.5 PLT 151 167 BMP: Recent Labs 11/17/19 0016 11/18/19 0007 NA 137 137 K 3.7 3.9 CL 105 104 CO2 25 25 BUN 17 16 CREATININE 0.60 0.81 INR:No results for input(s): INR in the last 72 hours. No results for input(s): BNP in the last 72 hours. TSH: No results found for: TSH Cardiac Injury Profile: Recent Labs 11/17/19 0016 11/17/19 0302 11/17/19 0954 TROPONINI 0.081* 0.085* 0.062* Lipid Profile: Lab Results Component Value Date TRIG 80 11/17/2019 HDL 36 11/17/2019 CHOL 118 11/17/2019 EKG: sr, lbbb Telemetry Reviewed: no VT Echo: See Report IMPRESSIONS/RECOMMENDATIONS: 1. Patient has hemodynamically significant sustained monomorphic ventricular tachycardia witrh no reversible etiology. This warrants secondary prevention ICD. Given his LBBB, ZHM=930 msec, and EF=20% plan for DIRECTOR OF INSTITUTIONAL RESEARCH-D. Risks and benefits discussed and patient agrees. 3 months post will withdraw amiodarone. Depending on arrythmia burden, EF response to DIRECTOR OF INSTITUTIONAL RESEARCH will decide on cessation and observation versus VT ablation. Electronicallysigned by Falguni Zarate MD on 11/18/2019 at 11:28 AM CARDIOLOGY PROGRESS NOTE Chart and interval events reviewed. Reason for Visit Sustained VT SUBJECTIVE: Sheeba Manning denies acute complaints ON. He continues to feel anxious about his situation. I explained the device that will be placed and how it functions. He understands the necessity. HR has continued to be in the low 40-60's range, Coreg is held. He denies symptoms at this time and feels he is doing well. Plan is for BiV tomorrow. Pt will be NPO at midnight. EF 30% by echo, hypokinesis of inferolateral myocardium. SCHEDULED MEDICATIONS: insulin lispro 2 Units Subcutaneous TID WC amiodarone 400 mg Oral TID sodium chloride flush 10 mL Intravenous 2 times per day enoxaparin 40 mg Subcutaneous Daily lisinopril 40 mg Oral Daily insulin lispro 0-6 Units Subcutaneous TID WC clopidogrel 75 mg Oral Daily aspirin 81 mg Oral Daily rosuvastatin 40 mg Oral Nightly Active Problems: CAD, multiple vessel Ventricular tachycardia, monomorphic (HCC) Hyperlipidemia Hypertension Resolved Problems: * No resolved hospital problems. * Review of Systems: Review of Systems Constitutional: Negative for chills, diaphoresis, fatigue and fever. HENT: Negative for nosebleeds and tinnitus. Eyes: Negative for visual disturbance. Respiratory: Negative for cough, choking, chest tightness, shortness of breath and wheezing. Cardiovascular: Negative for chest pain, palpitations and leg swelling. Gastrointestinal: Negative for abdominal distention, abdominal pain, blood in stool, constipation, diarrhea, nausea and vomiting. Musculoskeletal: Negative for joint swelling. Skin: Negative for color change and pallor. Neurological: Negative for dizziness, syncope, weakness, light-headedness and headaches. Hematological: Does not bruise/bleed easily. Psychiatric/Behavioral: Negative for agitation and suicidal ideas. The patient is nervous/anxious. VITAL SIGNS: Vitals: 11/18/19 0500 11/18/19 0600 11/18/19 0613 11/18/19 0700 BP: (!) 146/71 (!) 164/107 (!) 161/100 Pulse: (!) 48 57 63 Resp: 18 Temp: TempSrc: Oral SpO2: Weight: 252 lb 3.2 oz (114.4 kg) Height: No intake or output data in the 24 hours ending 11/18/19 0733 Patient Vitals for the past 96 hrs (Last 3 readings): Weight 11/18/19 0613 252 lb 3.2 oz (114.4 kg) 11/16/19 2300 262 lb 5.6 oz (119 kg) Physical Exam: Physical Exam Constitutional: General: He is not in acute distress. Appearance: Normal appearance. He is normal weight. He is not diaphoretic. HENT: Head: Normocephalic and atraumatic. Nose: Nose normal. Mouth/Throat: Mouth: Mucous membranes are moist. Pharynx: Oropharynx is clear. Eyes: General: No scleral icterus. Extraocular Movements: Extraocular movements intact. Pupils: Pupils are equal, round, and reactive to light. Neck: Musculoskeletal: Normal range of motion and neck supple. Cardiovascular: Rate and Rhythm: Regular rhythm. Bradycardia present. Pulses: Normal pulses. Heart sounds: Normal heart sounds. No murmur. Pulmonary: Effort: Pulmonary effort is normal. No respiratory distress. Breath sounds: Normal breath sounds. No wheezing, rhonchi or rales. Abdominal: General: Abdomen is flat. Bowel sounds are normal. There is no distension. Palpations: Abdomen is soft. Tenderness: There is no abdominal tenderness. Musculoskeletal: Normal range of motion. General: No swelling or tenderness. Lymphadenopathy: Cervical: No cervical adenopathy. Skin: General: Skin is warm and dry. Coloration: Skin is not jaundiced or pale. Findings: No bruising. Neurological: General: No focal deficit present. Mental Status: He is alert and oriented to person, place, and time. Mental status is at baseline. Cranial Nerves: No cranial nerve deficit. Psychiatric: Mood and Affect: Mood normal. Behavior: Behavior normal. Data: Scheduled Meds: Reviewed Continuous Infusions: dextrose CBC: Recent Labs 11/17/196 11/18/19 0007 WBC 9.8 9.9 HGB 13.4 13.9 HCT 38.7* 40.5 PLT 151 167 BMP: Recent Labs 11/17/196 11/18/19 0007 NA 137 137 K 3.7 3.9 CL 105 104 CO2 25 25 BUN 17 16 CREATININE 0.60 0.81 INR:No results for input(s): INR in the last 72 hours. No results for input(s): BNP in the last 72 hours. TSH: No results found for: TSH Cardiac Injury Profile: Recent Labs 11/17/19 0016 11/17/19 0302 11/17/19 0954 TROPONINI 0.081* 0.085* 0.062* Lipid Profile: Lab Results Component Value Date TRIG 80 11/17/2019 HDL 36 11/17/2019 CHOL 118 11/17/2019 EKG: See Report Telemetry Reviewed: bradycardia with first degree Echo: See Report IMPRESSIONS/RECOMMENDATIONS: Sustained Ventricular Tachycardia - [place] EKG with monomorphic V tach in ED - Converted with amio gtt - Now Bradycardia with 1st degree block - DC amio gtt - Will start amio PO 400 TID - BiV pacemaker and ICD on Tuesday - NPO at midnight Bradycardia with First Degree AV block - Rate down to 40-60's after starting amio gtt - Asx - Cont to monitor, BP stable - BiV as above HFrEF - likely 2/2 to ICM given CAD - EF 20-25% last week on cath, was 40% following AK according to patient - TSH 4.27, T4 0.91 - BNP 1099 - CXR normal at [place] ED - NYHA class I, only feels general fatigue - continuing lisinopril, coreg - unsure if patient was supposed to be on Imdur - Echo with EF 30% and hypokinesis of inferolateral myocardium CAD - AK in 2018, 3 stents placed - Stents patent as 11/07/2019 - Trop 0.022-->0.085 - Continue aspirin, plavix, rosuvastatin - Hold Coreg given bradycardia HTN - BP elevated at 150s on arrival - According to patient, usually in 140s - continue home Coreg, lisinopril - holding HCTZ and hydralazine for now DM - On metformin at home - Hgb A1c 7.5 - starting low dose SSI HLD - Chol 118, HDL 36, LDL 66, trig 80 - continue rosuvastatin 40 DVT ppx - Hold Lovenox tomorrow for procedure Electronicallysigned by Shailesh Flores MD on 11/18/2019 at 7:33 AM Associated attestation - Srinivas Leach MD - 11/18/2019 9:28 AM EST I, Dr. Leach, saw and evaluated the patient 11/17/2019. I personally obtained the martínez and critical portions of the history and physical exam. I reviewed the chart and discussed the patient with the resident. I agree with the resident's medical decision making. Assessment/Plan: Patient with history of CAD s/p CABG, hx of ischemic CM. Had chest pain several weeks ago, had cath 11/07/2019 with 3 patent grafts. Holter monitor placed and discharged. Yesterday, had repeat chest pain, found in the ED to have NSVT. Amio drip started. Transferred here for EP work up. Per EP, plan for BiVICD tomorrow. Continue current CHF medications. Continue PO amio for now. GEN: NAD, A&Ox3, cooperative, mood appropriate EYES: PERRL, EOMI. Anicteric sclerae. Moist conjunctivae. HEENT: NCAT, Extrenal ears without defect, Oropharynx with moist mucous membranes, no exudate. Neck: No JVD. Supple with no lymphadenopathy, masses or thyromegaly Heart: RRR, no m/r/g. Lungs: CTAb, no w/r/r. No tactile fremitus. Abd: Soft, non-tender, non-distended. No masses or hepatosplenomegaly Ext: No edema. No clubbing or cyanosis. Normal muscle strength. Neuro: Cranial nerves grossly intact, normal gross sensation. Skin: Normal temperature and turgor. no severe rashes or lesions. CARDIOLOGY PROGRESS NOTE Chart and interval events reviewed. Reason for Visit Sustained VT SUBJECTIVE: Sheeba Manning denies acute complaints ON. He is currently on amio gtt. Pt states that he feels depressed dt his current situation. He denies suicidal ideation. HR has been down into 40-60's range while on amio gtt. He denies symptoms related to this. Denies CP, lightheadedness, N/V. SCHEDULED MEDICATIONS: magnesium sulfate 1 g Intravenous Once sodium chloride flush 10 mL Intravenous 2 times per day enoxaparin 40 mg Subcutaneous Daily lisinopril 40 mg Oral Daily carvedilol 25 mg Oral BID insulin lispro 0-6 Units Subcutaneous TID clopidogrel 75 mg Oral Daily aspirin 81 mg Oral Daily rosuvastatin 40 mg Oral Nightly Active Problems: * No active hospital problems. * Resolved Problems: * No resolved hospital problems. * Review of Systems: Review of Systems Constitutional: Negative for chills, diaphoresis, fatigue and fever. HENT: Negative for nosebleeds and tinnitus. Eyes: Negative for visual disturbance. Respiratory: Negative for cough, choking, chest tightness, shortness of breath and wheezing. Cardiovascular: Negative for chest pain, palpitations and leg swelling. Gastrointestinal: Negative for abdominal distention, abdominal pain, blood in stool, constipation, diarrhea, nausea and vomiting. Musculoskeletal: Negative for joint swelling. Skin: Negative for color change and pallor. Neurological: Negative for dizziness, syncope, weakness, light-headedness and headaches. Hematological: Does not bruise/bleed easily. Psychiatric/Behavioral: Negative for agitation and suicidal ideas. The patient is nervous/anxious. VITAL SIGNS: Vitals: 11/17/19 0400 11/17/19 0500 11/17/19 0700 11/17/19 0704 BP: (!) 146/80 121/64 (!) 128/108 Pulse: 52 (!) 48 (!) 48 (S) (!) 40 Resp: 18 Temp: 97.3 F (36.3 C) TempSrc: Oral Oral SpO2: 97% 93% 98% Weight: Height: Intake/Output Summary (Last 24 hours) at 11/17/2019 0753 Last data filed at 11/17/2019 0700 Gross per 24 hour Intake 600 ml Output 350 ml Net 250 ml Patient Vitals for the past 96 hrs (Last 3 readings): Weight 11/16/19 2300 262 lb 5.6 oz (119 kg) Physical Exam: Physical Exam Constitutional: General: He is not in acute distress. Appearance: Normal appearance. He is normal weight. He is not diaphoretic. HENT: Head: Normocephalic and atraumatic. Nose: Nose normal. Mouth/Throat: Mouth: Mucous membranes are moist. Pharynx: Oropharynx is clear. Eyes: General: No scleral icterus. Extraocular Movements: Extraocular movements intact. Pupils: Pupils are equal, round, and reactive to light. Neck: Musculoskeletal: Normal range of motion and neck supple. Cardiovascular: Rate and Rhythm: Regular rhythm. Bradycardia present. Pulses: Normal pulses. Heart sounds: Normal heart sounds. No murmur. Pulmonary: Effort: Pulmonary effort is normal. No respiratory distress. Breath sounds: Normal breath sounds. No wheezing, rhonchi or rales. Abdominal: General: Abdomen is flat. Bowel sounds are normal. There is no distension. Palpations: Abdomen is soft. Tenderness: There is no abdominal tenderness. Musculoskeletal: Normal range of motion. General: No swelling or tenderness. Lymphadenopathy: Cervical: No cervical adenopathy. Skin: General: Skin is warm and dry. Coloration: Skin is not jaundiced or pale. Findings: No bruising. Neurological: General: No focal deficit present. Mental Status: He is alert and oriented to person, place, and time. Mental status is at baseline. Cranial Nerves: No cranial nerve deficit. Psychiatric: Mood and Affect: Mood normal. Behavior: Behavior normal. Data: Scheduled Meds: Reviewed Continuous Infusions: amiodarone 450mg/250ml D5W infusion 0.5 mg/min (11/17/19 0022) dextrose CBC: Recent Labs 11/17/19 0016 WBC 9.8 HGB 13.4 HCT 38.7* PLT 151 BMP: Recent Labs 11/17/19 0016 NA 137 K 3.7 CL 105 CO2 25 BUN 17 CREATININE 0.60 INR:No results for input(s): INR in the last 72 hours. No results for input(s): BNP in the last 72 hours. TSH: No results found for: TSH Cardiac Injury Profile: Recent Labs 11/17/19 0016 11/17/19 0302 TROPONINI 0.081* 0.085* Lipid Profile: Lab Results Component Value Date TRIG 80 11/17/2019 HDL 36 11/17/2019 CHOL 118 11/17/2019 EKG: See Report Telemetry Reviewed: bradycardia with first degree Echo: See Report IMPRESSIONS/RECOMMENDATIONS: Sustained Ventricular Tachycardia - [place] EKG with monomorphic V tach in ED - Converted with amio gtt - Now Bradycardia with 1st degree block - DC amio gtt - Will start amio PO 400 TID - BiV pacemaker and ICD on Tuesday Bradycardia with First Degree AV block - Rate down to 40-60's after starting amio gtt - Asx - Cont to monitor, BP stable - BiV as above HFrEF - likely 2/2 to ICM given CAD - EF 20-25% last week on cath, was 40% following AK according to patient - TSH 4.27, T4 0.91 - BNP 1099 - CXR normal at [place] ED - NYHA class I, only feels general fatigue - continuing lisinopril, coreg - unsure if patient was supposed to be on Imdur - Echo pending CAD - [place] in 2018, 3 stents placed - Stents patent as 11/07/2019 - Trop 0.022-->0.085 - Continue aspirin, plavix, coreg, rosuvastatin HTN - BP elevated at 150s on arrival - According to patient, usually in 140s - continue home Coreg, lisinopril - holding HCTZ and hydralazine for now DM - On metformin at home - Hgb A1c 7.5 - starting low dose SSI HLD - Chol 118, HDL 36, LDL 66, trig 80 - continue rosuvastatin 40 Electronicallysigned by Shailesh Flores MD on 11/17/2019 at 7:53 AM Associated attestation - Srinivas Leach MD - 11/17/2019 11:40 AM EST I, Dr. Leach, saw and evaluated the patient 11/17/2019. I personally obtained the martínez and critical portions of the history and physical exam. I reviewed the chart and discussed the patient with the resident. I agree with the resident's medical decision making. Assessment/Plan: Patient with history of CAD s/p CABG, hx of ischemic CM. Had chest pain several weeks ago, had cath 11/07/2019 with 3 patent grafts. Holter monitor placed and discharged. Yesterday, had repeat chest pain, found in the ED to have NSVT. Amio drip started. Transferred here for EP work up. Per EP, plan for BiVICD Tuesday. Continue current CHF medications. Continue amio for now, will transition to PO amio. GEN: NAD, A&Ox3, cooperative, mood appropriate EYES: PERRL, EOMI. Anicteric sclerae. Moist conjunctivae. HEENT: NCAT, Extrenal ears without defect, Oropharynx with moist mucous membranes, no exudate. Neck: No JVD. Supple with no lymphadenopathy, masses or thyromegaly Heart: RRR, no m/r/g. Lungs: CTAb, no w/r/r. No tactile fremitus. Abd: Soft, non-tender, non-distended. No masses or hepatosplenomegaly Ext: No edema. No clubbing or cyanosis. Normal muscle strength. Neuro: Cranial nerves grossly intact, normal gross sensation. Skin: Normal temperature and turgor. no severe rashes or lesions. documented in this encounter [facility] [employer] Phone: [facility] Phone: Evaluation note* Diagnosis Ventricular tachycardia (HCC)- Primary Paroxysmal ventricular tachycardia Cardiac disease Heart disease, unspecified VT (ventricular tachycardia) (HCC) Paroxysmal ventricular tachycardia documented [facility] this [facility] Phone: Evaluation note* Diagnosis Cardiac resynchronization therapy defibrillator (DIRECTOR OF INSTITUTIONAL RESEARCH-D) in place- Primary VT (ventricular tachycardia) Paroxysmal ventricular tachycardia Paroxysmal atrial fibrillation (CMS/HCC) (HCC) Atrial fibrillation Primary hypertension Unspecified essential hypertension LBBB (left bundle branch block) Other left bundle branch block Chronic systolic (congestive) heart failure (HCC) CAD, multiple vessel Encounter for adjustment or management of cardiac device documented in this encounter [facility] note* Diagnosis Cardiac resynchronization therapy defibrillator (DIRECTOR OF INSTITUTIONAL RESEARCH-D) in place- Primary Paroxysmal atrial fibrillation (HCC) Atrial fibrillation LBBB (left bundle branch block) Other left bundle branch block VT (ventricular tachycardia) (HCC) Paroxysmal ventricular tachycardia Encounter for monitoring amiodarone therapy Encounter for adjustment or management of cardiac device documented in this encounter [facility] Discharge instructions* Instructions* Brianna Devlin, PARTNERSHIP DEVELOPMENT MANAGER - [employer] - 11/20/2019 Learning About a Pacemaker for Heart Failure What is a pacemaker for heart failure? A pacemaker is a small device that is placed under the skin of your chest. It is powered by batteries. It has thin wires, called leads, that pass through a vein into your heart. A pacemaker for heart failure is a biventricular pacemaker (say [id number][facility] ). Treatment that uses this type of pacemaker is called cardiac resynchronization therapy (DIRECTOR OF INSTITUTIONAL RESEARCH). When you have heart failure, the lower chambers of your heart may not pump at the same time. The pacemaker sends painless electrical signals to your heart. These signals make the chambers pump at thesame time. This can help your heart pump blood better and help you feel better. Your pacemaker may be combined with an ICD, or implantable cardioverter- defibrillator. It can control abnormal heart rhythms. This can prevent sudden . You may feel worried about having a pacemaker. This is common. It can help if you learn about how the pacemaker helps your heart. Talk to your doctor about your concerns. How is a pacemaker put in place? You will get medicine before the procedure. This helps you relax and helps prevent pain. The doctor makes a cut in the skin just below your collarbone. The cut may be on either side of your chest. The doctor will put the pacemaker leads through the cut. The leads go into a large blood vessel in the upper chest. Then the doctor will guide the leads through the blood vessel into different chambers of the heart. The doctor will place the pacemaker under the skin of your chest. He or she will attach the leads to the pacemaker. Then the cut will be closed with stitches. The procedure usually takes 2 to 3 hours. You may need to spend the night in the hospital. What can you expect when you have a pacemaker? A pacemaker can help your heart pump blood better. It may help you feel better so you can be more active. It also may help keep you out of the hospital and help you live longer. You can live a normal, active life with a pacemaker. But you'll need to use certain electric devices with caution. Some devices have a strong electromagnetic field. This field can keep your pacemakerfrom working right for a short time. These devices include things in your home, garage, or workplace. Check with your doctor about what you need to avoid and what you need to keep a short distance away from your pacemaker. Many household and office electronics do not affect your pacemaker. Your doctor will check your pacemaker regularly to make sure it's working right. Pacemaker batteries usually last 5 to 15 years before they need to be replaced. Follow-up care is a martínez part of your treatment and safety. Be sure to make and go to all appointments, and call your doctor if you are having problems. It's also a good idea to know your test resultsand keep a list of the medicines you take. Where can you learn more? Go to [email or web address] and sign in to your [employer] account. Enter Y169 in the Search Health Information box to learn more about Learning About a Pacemaker for Heart Failure. If you do not have an account, please click on the Sign Up Now link. Current as of: January 30, 2019 Content Version: 12.3 [employer]. Care instructions adapted under license by [employer]. If youhave questions about a medical condition or this instruction, always ask your healthcare professional. [employer] disclaims any warranty or liability for your use of this information. Implantable Cardioverter-Defibrillator Placement: What to Expect at Home Your Recovery Implantable cardioverter-defibrillator (ICD) placement is surgery to put an ICD in your chest. An ICD is a small, battery-powered device that fixes life- threatening changes in your heartbeat. If the ICD detects a life-threatening rapid heart rhythm, it tries to slow the rhythm back to normal using electrical pulses. If the dangerous rhythm does not stop, the ICD sends an electric shock to the heart to restore a normal rhythm. The device then goes back to its watchful mode. Your chest may be sore where the doctor made the cut (incision) and put in the ICD. You also may have a bruise and mild swelling. These symptoms usually get better in 1 to 2 weeks. You may feel a hard ridge along the incision. This usually gets softer in the months after surgery. You probably will be able to see and feel the outline of the ICD under your skin. You will probably be able to go back to work or your usual routine 1 to 2 weeks after surgery. Yourdoctor will talk to you about how often you will need to have the ICD checked. You'll need to take steps to safely use electric devices. Some of these devices can stop your ICD from working right for a short time. Check with your doctor about what to avoid and what to keep a short distance away from your ICD. For example, you will need to stay away from things with strong magnetic and electrical flores. An example is an MRI machine (unless your ICD is safe for an MRI). You can use a cell phone and other wireless devices but keep them at least 6 inches away from your ICD. Many household and office electronics do not affect an ICD. These include kitchen appliances and computers. This care sheet gives you a general idea about how long it will take for you to recover. But each person recovers at a different pace. Follow the steps below to get better as quickly as possible. How can you care for yourself at home? Activity Rest when you feel tired. Getting enough sleep will help you recover. Try to walk each day. Start by walking a little more than you did the day before. Bit by bit, increase the amount you walk. Walking boosts blood flow and helps prevent pneumonia and constipation. For 4 to 6 weeks: ? Avoid activities that strain your chest or upper arm muscles. This includes pushing a director acute or vacuum, mopping floors, swimming, or swinging a golf club or tennis racquet. ? Do not raise your arm, on the side of your body where the ICD is located, above shoulder level. ? Avoid strenuous activities, such as bicycle riding, jogging, weight lifting, or heavy aerobic exercise. ? Avoid lifting anything that would make you strain. This may include heavy grocery bags and milk containers, a heavy briefcase or backpack, cat litter or dog food bags, or a child. Ask your doctor when you can drive again. You will probably need to take about 1 to 2 weeks off from work. It depends on the type of work youdo and how you feel. Ask your doctor when it is okay for you to have sex. Diet You can eat your normal diet. If your stomach is upset, try bland, low-fat foods like plain rice, broiled chicken, toast, and yogurt. Drink plenty of fluids (unless your doctor tells you not to). Medicines Your doctor will tell you if and when you can restart your medicines. He or she will also give you instructions about taking any new medicines. If you take aspirin or some other blood thinner, ask your doctor if and when to start taking it again. Make sure that you understand exactly what your doctor wants you to do. Take pain medicines exactly as directed. ? If the doctor gave you a prescription medicine for pain, take it as prescribed. ? If you are not taking a prescription pain medicine, ask your doctor if you can take an [id number] medicine. ? Do not take aspirin, ibuprofen (Advil, Motrin), naproxen (Aleve), or other nonsteroidal anti-inflammatory drugs (NSAIDs) unless your doctor says it is okay. If you think your pain medicine is making you sick to your stomach: ? Take your medicine after meals (unless your doctor has told you not to). ? Ask your doctor for a different pain medicine. If your doctor prescribed antibiotics, take them as directed. Do not stop taking them just because you feel better. You need to take the full course of antibiotics. Incision care Keep the area clean and dry. Ask your doctor when you can shower or take a bath. If you have strips of tape on the incision, leave the tape on for a week or until it falls off. Wash the area daily with warm, soapy water, and pat it dry. Don't use hydrogen peroxide or alcohol,which can slow healing. You may cover the area with a gauze bandage if it weeps or rubs against clothing. Exercise Check with your doctor before you start an exercise program. Your doctor may recommend that you work with a physical therapist to learn how to exercise safely with an ICD. Other instructions Carry your ICD identification card with you at all times. The card should include the ICD teller manager and model information. Wear medical alert jewelry that states you have an ICD. You can buy this at most [employer]. Have your ICD checked as often as your doctor recommends. In some cases, this may be done over the phone or the Internet. your doctor will give you instructions about how to do this. Talk with your doctor about the possibility of turning off the ICD at the end of life. You can put your wishes about the ICD in an advance directive. Follow-up care is a martínez part of your treatment and safety. Be sure to make and go to all appointments, and call your doctor if you are having problems. It's also a good idea to know your test resultsand keep a list of the medicines you take. When should you call for help? Call 911 anytime you think you may need emergency care. For example, call if: You passed out (lost consciousness). You have trouble breathing. Call your doctor now or seek immediate medical care if: You receive a shock from your ICD. You are dizzy or lightheaded, or you feel like you may faint. You have pain that does not get better after you take pain medicine. You hear an alarm or feel a vibration from your ICD. You have loose stitches, or your incision comes open. Bright red blood has soaked through the bandage over your incision. You have signs of infection, such as: ? Increased pain, swelling, warmth, or redness. ? Red streaks leading from the incision. ? Pus draining from the incision. ? A fever. Watch closely for changes in your health, and be sure to contact your doctor if you have any problems. Where can you learn more? Go to [email or web address] and sign in to your [employer] account. Enter K184 in the Search Health Information box to learn more about Implantable Cardioverter-Defibrillator Placement: What to Expect at Home. If you do not have an account, please click on the Sign Up Now link. Current as of: January 30, 2019 Content Version: 12.3 6362-0111 [employer]. Care instructions adapted under license by [facility]. If youhave questions about a medical condition or this instruction, always ask your healthcare professional. [employer] disclaims any warranty or liability for your use of this information. Bi-Ventricular Internal Cardioverter Defibrillator May Bath On: 11/21/2019 May Remove Bandage On: 11/24/2019 Come to the Emergency Room for bleeding that does not stop, increased swelling, or if your arm becomes cold. Call your doctor if you experience redness, swelling or drainage at incision site. Call your doctor if you experience fever or chills. Call your doctor if the incision site becomes increasingly painful to touch. Call your doctor if you experience chest pain, shortness of breath, dizziness, fainting spells, swelling in the ankles, or prolonged hiccoughing. You may take a sponge bath for the next 48 hours then ok to shower. No swimming or tub bathing for 6 weeks. Keep original bandage on until directed. Do NOT remove steri-strips (tape) from incision line if present. Once bandage is removed leave incision open to air. Do not apply lotions, ointments or creamsto incision site. Carry your ID card with you at all times. No driving until your doctor has given you permission to drive. You may resume sexual activity in 3 weeks Keep affected arm below shoulder level for 4 weeks. Do not raise affected arm over your head. Refer to your information booklet for additional information It is recommended that all family members be certified in CPR. Call the [facility] at [phone] if you have any questions regarding your incision, defibrillator, or follow-up appointments. Call the [facility] at [phone] if you have signs of a rapid heart rhythm, if you hear a beeping tone or vibration from your defibrillator. Call the [facility] at [phone] or your physician if you experience a shock. Be calm and liedown if you are alone. If you feel as though you are going to pass out call 911. No lifting, pulling, pushing more than 5 pounds with your affected arm for 4 weeks (a gallon of milk weighs 8 pounds) Keep affected arm below shoulder level for 4 weeks. Do not raise affected arm over your head. Avoid strong magnetic flores such as power plants, arc welding, and large magnets. If someone is touching you when a shock is delivered, they will not be harmed but may experience a sensation similar to a bee sting. 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 Latest Code Status on File Code Status Date Activated Date Inactivated Comments Full Code 11/25/2019 8:24 PM 11/27/2019 6:48 PM Full Code 11/19/2019 12:22 PM 11/20/2019 4:04 PM Full Code 11/18/2019 3:38 PM 11/19/2019 12:22 PM Full Code 11/16/2019 11:11 PM 11/18/2019 3:38 PM Documents on File Type Date Recorded Patient Combat Control Expl anation Advance Directives and Living Will Power 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 Latest Code Status on File Code Status Date Activated Date Inactivated Comments Full Code 11/19/2019 12:22 PM Full Code 11/18/2019 3:38 PM 11/19/2019 12:22 PM Full Code 11/16/2019 11:11 PM 11/18/2019 3:38 PM Documents on File Type Date Recorded Patient Combat Control Expl anation ACP-Advance Directive ACP-Power 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 Latest Code Status on File Code Status Date Activated Date Inactivated Comments Full Code 02/22/2022 11:59 AM Full Code 11/25/2019 8:24 PM 11/27/2019 6:48 PM Full Code 11/19/2019 12:22 PM 11/20/2019 4:04 PM Summary Purpose Family History No Family History Records FoundNo Family History Records FoundNo Family History Records FoundNo Family History Records FoundNo Family History Records Found Additional Source Comments Ordered Prescriptions (unrec ognized section and content) Scheduled Active and Recently Administ ered Medications (unrecognized section and content) Continuous Medication Order 02/21/2022 02/22/2022 02/23/2022 0.9 % sodium chloride infusion IntraVENous, at 30 mL/hr, CONTINUOUS, Starting on Tue02/22/22 at 1215, Pre-Procedure(Cath) 1720 (Canceled Entry - Provider: Lauren Jimenez RN) isoproterenol (ISUPREL) 200 mcg in dextrose 5 % 50 mL infusion 200 mcg, IntraVENous, CONTINUOUS, Starting on Tue02/22/22 at 0730, Until Discontinued, Initial infusion dose: 1mcg/min Titrate in increments of: 0.5mcg/min Titrate no faster than: every 5 minutes Goal of Therapy: sustained HR greater than 60 bpm Contact Provider if: Sustained HR less than 40 bpm Administer in EP lab Titrate by 0.5 mcg/min no faster than every 5 minutes to goal 0730 (Due) PRN Medication Order 02/21/2022 02/22/2022 02/23/2022 0.9 % sodium chloride infusion IntraVENous, at 5-250 mL/hr, PRN, if patient receiving piggyback infusions and maintenance fluids are not ordered OR KVO fluids to protect IV site / prevent frequent line interruptions/ long duration, Starting on Tue02/22/22 at 1656, For piggyback infusion, administer at same rate as piggyback for a total of 25 mL. Enter 25 mL into dose field and piggyback rate into rate field of order. If piggyback is infusing at a rate less than 100 mL/hr, enter 25 mL into dose field and 100 mL/hr into rate field of order. For KVO fluids, enter rate of 20 mL/hr or less into rate field of order., Recovery(Cath) acetaminophen (TYLENOL) tablet 650 mg 650 mg, Oral, EVERY 4 HOURS PRN, Starting on Tue02/22/22 at 1656, Until Discontinued, Pain Mild (1-3), Fever, Fever >100.5 F (38 C), Maximum dose of acetaminophen is 4000 mg from all sources in 24 hours., Recovery(Cath) 1725 (Given - Provider: Lauren Jimenez, RN) sodium chloride flush 0.9 % injection 5-40 mL 5-40 mL, IntraVENous, PRN, Starting on Tue02/22/22 at 1656, Until Discontinued, Line Care, After every IV line use, For Line Patency: Peripheral IV = 5 mL; Midline or Central Line = 10 mL/lumen. If following IV push medication, administer flush at same rate as the IV push. Flush volume is determined by type of infusion therapy being given. For non-viscous solutions use: Peripheral IV = 5 mL Midline or Central Line = 10 mL/lumen For viscous solutions (i.e. blood components, parenteral nutrition, contrast media, or after obtaining blood sample) use: Peripheral IV = 10 mL Midline or Central Line = 20 mL/lumen, Recovery(Cath) Care Teams (unrecognized sec tion and content) Impression Printer Relationship Specialty Start Date End Date Pcp, No PCP - General 05/08/22 11/23/22 Impression Printer Relationship Specialty Start Date End Date Hoa Blandon MD [address] [facility] [address] [place] [id number] PCP - General 12/06/19 Impression Printer Relationship Specialty Start Date End Date Hoa Blandon MD [address] [facility] [address] [place] [phone] PCP - General 12/06/19 Impression Printer Relationship Specialty Start Date End Date Hoa Blandon MD [address] [facility] [address] [place] [phone] PCP - General 12/06/19 (unrecognized sect ion and content) No Status Records FoundNo Status Records FoundNo Status Records FoundNo Status Records FoundNo Status Records Found INFORMATION SOURCE (unrecogn ized section and content) DATE CREATED AUTHOR AUTHOR'S ORGANIZ ATION 08/23/2022 [facility] DATE CREATED AUTHOR AUTHOR'S ORGANIZ ATION 09/01/2022 [facility] DATE CREATED AUTHOR AUTHOR'S ORGANIZ ATION 09/03/2022 [facility] DATE CREATED AUTHOR AUTHOR'S ORGANIZ ATION 10/08/2023 [facility] Source Comments (unrecognize d section and content) In the event this informatio n is protected by the Federal Confidentiality of Alcohol and Drug Abuse Patient Records regulations: The Federal rules restrict any use of the information to criminally investigate or prosecute any alcohol or drug abuse patient.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 This clinical summary was aggregated from multiple sources. Caution should be exercised in using it in the provision of clinical care. This summary normalizes information from multiple sources, and as a consequence, information in this document may materially change the coding, format and clinical context of patient data. In addition, data may be omitted in some cases. CLINICAL DECISIONS SHOULD BE BASED ON THE PRIMARY CLINICAL RECORDS. [facility] [employer] [facility]. provides no warranty or guarantee of the accuracy or completeness of information in this document.
[2023-11-15 17:58] LABS: Absolute Lymphocyte Count 1.64 X10^3/uL (0.83-4.51); Absolute Neutrophil Count 5.9 X10^3/uL (2.0-7.7); Basophil# 0.06 X10^3/uL; Basophil% 0.7 % (0-1); Eosinophil# 0.08 X10^3/uL; Eosinophils% 0.9 % (0-5); Hematocrit 46.7 % (40-54); Hemoglobin 15.4 g/dL (13.0-16.5); Lymphocyte # 1.64 X10^3/ul (0.83-4.51); Lymphocyte % 19.3 % (19-41); Mean Corpuscular Hgb 31.2 pg (27.0-32.0); Mean Corpuscular Volume 94.5 fL (80-94); Mean Platelet Vol. 10.8 fl (6.2-12.0); Monocyte# 0.78 X10^3/uL; Monocyte% 9.2 % (0-10); NRBC Flagged by Analyzer 0 % (0-5); Neutrophil # 5.93 X10^3/uL (2.7-7.7); Neutrophil % 69.7 % (47-70); Platelet Count 205 K/mm3 (150-450); RBC Distribution Width CV 13.3 % (11.6-14.6); RBC Distribution Width SD 46.5 fl (35.1-43.9); Red Blood Count 4.94 M/mm3 (4.6-6.2); White Blood Count 8.5 K/mm3 (4.4-11.0)
[2023-11-15 18:35] LABS: Hemoglobin A1c 5.8 % (3.8-5.6)
[2023-11-15 18:38] LABS: Microalbumin,Random Urine 71.5 mg/L (NO RANGE EST.); Microalbumin:Creatinine Ratio 90.2 mg/g CRE (<30 mg/g CRE)
[2023-11-15 18:39] LABS: ALB/GLOB Ratio 1.2 RATIO (0.9-2.4); AST(SGOT) 21 U/L (15-37); Alanine Aminotransfer ALT/SGPT 36 U/L (16-61); Albumin, Serum 3.9 g/dL (3.2-5.0); Alkaline Phosphatase 77 U/L (45-117); Anion Gap 7 (5-15); BUN 19 mg/dL (7-18); BUN/Creat Ratio 21.4 RATIO (10-20); Calcium,Total 9.4 mg/dL (8.5-10.1); Chloride 107 mmol/L (98-107); Cholesterol 114 mg/dL (200); Creatinine, Serum 0.89 mg/dL (0.70-1.30); EST Glomerular Filtration Rate 92 mL/min (>60); Est Glom Filt Rate - Afr Amer 111 mL/min (>60); Globulin 3.2 g/dL (2.2-4.2); Glucose 116 mg/dL (74-106); High Density Lipoprotein 38 mg/dL; Magnesium 2.2 mg/dL (1.6-2.6); Protein, Total 7.1 g/dL (6.4-8.2); Sodium Level 139 mmol/L (136-145); Thyroid Stim Hormone (TSH) 2.02 uIU/mL (0.358-3.74); Triglycerides 136 mg/dL; Very Low Density Lipoprotein 27 mg/dL (5-40)
== END | disposition home or self-care (01) ==
LOC: MTLAB 15:02
PROVIDERS: PCP Family Medicine; Referring Provider Family Medicine; Visit Provider Family Medicine
DX: I25.10 Atherosclerotic heart disease of native coronary artery without angina pectoris (principal); E11.8 Type 2 diabetes mellitus with unspecified complications; I47.29 Other ventricular tachycardia
CPT/HCPCS: 36415; 80053; 80061; 82043; 82570; 83036; 83735; 84443; 85025

== ENCOUNTER → 2024-03-26 | Outpatient (CLI) | payer BC, SELFPAY ==
[2017-09-29 14:27] VITALS: BMI 32.5
[2024-03-26 12:59] LABS: Absolute Lymphocyte Count 1.37 X10^3/uL (0.83-4.51); Absolute Neutrophil Count 7.2 X10^3/uL (2.0-7.7); Basophil# 0.05 X10^3/uL; Basophil% 0.5 % (0-1); Eosinophil# 0.09 X10^3/uL; Eosinophils% 0.9 % (0-5); Hematocrit 45.2 % (40-54); Hemoglobin 14.8 g/dL (13.0-16.5); Lymphocyte # 1.37 X10^3/ul (0.83-4.51); Mean Corp Hgb Conc 32.7 g/dL (32-36); Mean Corpuscular Volume 97.8 fL (80-94); Mean Platelet Vol. 10.8 fl (6.2-12.0); Monocyte# 1.03 X10^3/uL; Monocyte% 10.6 % (0-10); NRBC Flagged by Analyzer 0 % (0-5); Neutrophil # 7.17 X10^3/uL (2.7-7.7); Neutrophil % 73.5 % (47-70); Platelet Count 203 K/mm3 (150-450); RBC Distribution Width CV 14.1 % (11.6-14.6); RBC Distribution Width SD 50.4 fl (35.1-43.9); Red Blood Count 4.62 M/mm3 (4.6-6.2); White Blood Count 9.8 K/mm3 (4.4-11.0)
[2024-03-26 14:29] LABS: ALB/GLOB Ratio 1.3 RATIO (0.9-2.4); AST(SGOT) 35 U/L (15-37); Alanine Aminotransfer ALT/SGPT 57 U/L (16-61); Albumin, Serum 3.9 g/dL (3.2-5.0); Alkaline Phosphatase 65 U/L (45-117); Anion Gap 7 (5-15); BUN 28 mg/dL (7-18); BUN/Creat Ratio 35.9 RATIO (10-20); Calcium,Total 9.3 mg/dL (8.5-10.1); Chloride 108 mmol/L (98-107); Cholesterol 118 mg/dL (200); Creatinine, Serum 0.78 mg/dL (0.70-1.30); EST Glomerular Filtration Rate 106 mL/min (>60); Est Glom Filt Rate - Afr Amer 129 mL/min (>60); Glucose 104 mg/dL (74-106); High Density Lipoprotein 40 mg/dL; PSA,Total - Annual Screen 0.25 ng/mL (0.00-4.00); Potassium 4.4 mmol/L (3.5-5.1); Protein, Total 6.9 g/dL (6.4-8.2); Sodium Level 138 mmol/L (136-145); Triglycerides 79 mg/dL; Very Low Density Lipoprotein 16 mg/dL (5-40)
[2024-03-26 16:03] LABS: Hemoglobin A1c 5.9 % (3.8-5.6)
== END | disposition home or self-care (01) ==
LOC: MFPLAB 10:02
PROVIDERS: PCP Family Medicine; Visit Provider Family Medicine
DX: E11.59 Type 2 diabetes mellitus with other circulatory complications (principal); Z12.5 Encounter for screening for malignant neoplasm of prostate
CPT/HCPCS: 36415; 80053; 80061; 83036; 84153; 84443; 85025; G0103

== ENCOUNTER → 2024-04-18 | Outpatient (CLI) | payer BC, SELFPAY ==
[2017-09-29 14:27] VITALS: BMI 32.5
[2024-04-18 12:44] LABS: Amphetamine Urine VISTA NEGATIVE (<1000 ng/mL); Barbiturate Urine VISTA NEGATIVE (< 200 ng/mL); Benzodiazepine Urine VISTA NEGATIVE (< 200 ng/mL); Cocaine Urine VISTA NEGATIVE (< 300 ng/mL); Ecstacy Urine VISTA NEGATIVE (< 500 ng/mL); Methadone Urine VISTA NEGATIVE (< 300 ng/mL); PCP Urine VISTA NEGATIVE (< 25 ng/mL); THC Urine VISTA POSITIVE (< 50 ng/mL); Vista UDS pH Range 5
== END | disposition home or self-care (01) ==
PROVIDERS: PCP Family Medicine; Referring Provider Anesthesiology Pain Medicine; Visit Provider Anesthesiology Pain Medicine
DX: F11.20 Opioid dependence, uncomplicated (principal)
CPT/HCPCS: 80307

== ENCOUNTER → 2024-08-02 | Outpatient (CLI) | payer MEDICARE, SELFPAY ==
[2017-09-29 14:27] VITALS: BMI 32.5
[2024-08-02 12:17] LABS: Absolute Lymphocyte Count 1.31 X10^3/uL (0.83-4.51); Absolute Neutrophil Count 6.4 X10^3/uL (2.0-7.7); Basophil# 0.07 X10^3/uL; Basophil% 0.8 % (0-1); Eosinophil# 0.14 X10^3/uL; Eosinophils% 1.6 % (0-5); Hemoglobin 13.9 g/dL (13.0-16.5); Lymphocyte # 1.31 X10^3/ul (0.83-4.51); Lymphocyte % 15.1 % (19-41); Mean Corp Hgb Conc 33.1 g/dL (32-36); Mean Corpuscular Hgb 31.7 pg (27.0-32.0); Mean Corpuscular Volume 95.7 fL (80-94); Mean Platelet Vol. 10.6 fl (6.2-12.0); Monocyte# 0.66 X10^3/uL; Monocyte% 7.6 % (0-10); NRBC Flagged by Analyzer 0 % (0-5); Neutrophil # 6.44 X10^3/uL (2.7-7.7); Neutrophil % 74.6 % (47-70); Platelet Count 196 K/mm3 (150-450); RBC Distribution Width CV 13.4 % (11.6-14.6); RBC Distribution Width SD 47.3 fl (35.1-43.9); Red Blood Count 4.39 M/mm3 (4.6-6.2); White Blood Count 8.7 K/mm3 (4.4-11.0)
[2024-08-02 13:29] LABS: ALB/GLOB Ratio 1.1 RATIO (0.9-2.4); AST(SGOT) 18 U/L (15-37); Alanine Aminotransfer ALT/SGPT 34 U/L (16-61); Albumin, Serum 3.4 g/dL (3.2-5.0); Alkaline Phosphatase 71 U/L (45-117); Anion Gap 4 (5-15); BUN 15 mg/dL (7-18); BUN/Creat Ratio 24.3 RATIO (10-20); Calcium,Total 8.9 mg/dL (8.5-10.1); Chloride 109 mmol/L (98-107); Cholesterol 120 mg/dL (200); Creatinine, Serum 0.62 mg/dL (0.70-1.30); EST Glomerular Filtration Rate 139 mL/min (>60); Est Glom Filt Rate - Afr Amer 168 mL/min (>60); Globulin 3.1 g/dL (2.2-4.2); Glucose 112 mg/dL (74-106); High Density Lipoprotein 45 mg/dL; Potassium 3.7 mmol/L (3.5-5.1); Protein, Total 6.5 g/dL (6.4-8.2); Sodium Level 140 mmol/L (136-145); Triglycerides 100 mg/dL; Very Low Density Lipoprotein 20 mg/dL (5-40)
[2024-08-02 13:39] LABS: Hemoglobin A1c 6.1 % (3.8-5.6)
== END | disposition home or self-care (01) ==
LOC: MFPLAB 10:30
PROVIDERS: PCP Family Medicine; Visit Provider Family Medicine
DX: E11.8 Type 2 diabetes mellitus with unspecified complications (principal); I25.10 Atherosclerotic heart disease of native coronary artery without angina pectoris
CPT/HCPCS: 36415; 80053; 80061; 83036; 84443; 85025

== ENCOUNTER → 2024-08-08 | Outpatient (CLI) | payer MEDICARE, SELFPAY ==
[2017-09-29 14:27] VITALS: BMI 32.5
[2024-08-08 12:43] LABS: Amphetamine Urine VISTA NEGATIVE (<1000 ng/mL); Barbiturate Urine VISTA NEGATIVE (< 200 ng/mL); Benzodiazepine Urine VISTA NEGATIVE (< 200 ng/mL); Cocaine Urine VISTA NEGATIVE (< 300 ng/mL); Ecstacy Urine VISTA NEGATIVE (< 500 ng/mL); Methadone Urine VISTA NEGATIVE (< 300 ng/mL); PCP Urine VISTA NEGATIVE (< 25 ng/mL); THC Urine VISTA POSITIVE (< 50 ng/mL); Vista UDS pH Range 5
== END | disposition home or self-care (01) ==
PROVIDERS: PCP Family Medicine; Referring Provider Anesthesiology Pain Medicine; Visit Provider Anesthesiology Pain Medicine
DX: F11.20 Opioid dependence, uncomplicated (principal)
CPT/HCPCS: 80307

== ENCOUNTER → 2024-10-30 | Outpatient (CLI) | payer MEDICARE, SELFPAY ==
[2017-09-29 14:27] VITALS: BMI 32.5
--- NOTE | 2024-10-30 11:49 | RAD_ITS ---
HISTORY: pain, loss of balance. TECHNIQUE: XR Spine Lumbar 2 or 3 Views. COMPARISON: 12/13/2022. FINDINGS: VERTEBRAE: Vertebral body height unchanged. Degenerative changes of the posterior elements. ALIGNMENT: No significant anterior or posterior subluxation. INTERVERTEBRAL DISCS: Degenerative changes with intervertebral disc space narrowing of L4-5 and L5-S1 again seen. Prominent osteophytes again noted at L1-2 and L2-3. RAD/Lumbar Spine 2 or 3 Views IMPRESSION: No acute fracture or dislocation identified in the lumbar spine. Multilevel degenerative change. Electronically Signed: Steph Romano MD at 8:30 EST ,
--- NOTE | 2024-10-30 11:50 | RAD_ITS ---
STUDY: X-RAY - LEFT KNEE REASON FOR EXAM: Male, 64 years old. PAIN TECHNIQUE: 4 views of the left knee. COMPARISON: Left knee radiographs dated 11/12/2021. FINDINGS: Normal visualized distal femur. Normal visualized proximal tibia and fibula. Normal proximal tibiofibular articulation. There is no demonstrated fracture. There is unchanged mild degenerative arthrosis of the medial femorotibial compartment. Normal lateral femorotibial compartment. Normal patellofemoral articulation. There are mild atherosclerotic calcifications. RAD/Knee 4 or More Views IMPRESSION: Unchanged mild degenerative arthrosis of the medial femorotibial compartment. Electronically Signed: Kahlil Church MD at 14:08 EST ,
--- NOTE | 2024-10-30 11:50 | RAD_ITS ---
STUDY: X-RAY - RIGHT KNEE REASON FOR EXAM: Male, 64 years old. Pain. TECHNIQUE: 4 views of the right knee. COMPARISON: Right knee radiographs dated 11/12/2021. FINDINGS: Normal visualized distal femur. Normal visualized proximal tibia and fibula. Normal proximal tibiofibular articulation. There is no demonstrated fracture. There is persistent moderate degenerative arthrosis of the medial femorotibial compartment with moderate joint space narrowing. There is persistent mild degenerative arthrosis of the lateral femorotibial compartment. There is persistent mild degenerative arthrosis of the patellofemoral articulation. There are atherosclerotic calcifications. RAD/Knee 4 or More Views IMPRESSION: Persistent tricompartment degenerative arthrosis, most pronounced in the medial femorotibial compartment. No demonstrated fracture. Electronically Signed: Kahlil Church MD at 14:13 EST ,
[2024-10-30 15:23] LABS: Hematocrit 44.7 % (40-54); Hemoglobin 14.6 g/dL (13.0-16.5); Mean Corp Hgb Conc 32.7 g/dL (32-36); Mean Corpuscular Hgb 31.2 pg (27.0-32.0); Mean Corpuscular Volume 95.5 fL (80-94); Mean Platelet Vol. 10.7 fl (6.2-12.0); Platelet Count 225 K/mm3 (150-450); RBC Distribution Width CV 14.6 % (11.6-14.6); RBC Distribution Width SD 50.8 fl (35.1-43.9); Red Blood Count 4.68 M/mm3 (4.6-6.2); White Blood Count 8.9 K/mm3 (4.4-11.0)
[2024-10-30 15:45] LABS: ALB/GLOB Ratio 1.1 RATIO (0.9-2.4); AST(SGOT) 16 U/L (15-37); Alanine Aminotransfer ALT/SGPT 32 U/L (16-61); Albumin, Serum 3.6 g/dL (3.2-5.0); Alkaline Phosphatase 82 U/L (45-117); Anion Gap 3 (5-15); BUN 19 mg/dL (7-18); BUN/Creat Ratio 25.8 RATIO (10-20); Calcium,Total 9.3 mg/dL (8.5-10.1); Chloride 107 mmol/L (98-107); Creatinine, Serum 0.74 mg/dL (0.70-1.30); EST Glomerular Filtration Rate 113 mL/min (>60); Est Glom Filt Rate - Afr Amer 137 mL/min (>60); Globulin 3.4 g/dL (2.2-4.2); Glucose 123 mg/dL (74-106); Sodium Level 139 mmol/L (136-145)
[2024-10-30 15:52] LABS: Vitamin B12 523 pg/mL (211-911)
[2024-11-01 10:08] LABS: ANTINUCLEAR ANTIBODIES DIRECT Negative (Negative)
[2024-11-06 20:07] LABS: VITAMIN B6 6.4 ug/L (3.4-65.2); Vitamin B1, Thiamine 157.6 nmol/L (66.5-200.0)
== END | disposition home or self-care (01) ==
LOC: MTLAB 11:49
PROVIDERS: PCP Family Medicine; Referring Provider Family Medicine; Visit Provider Family Medicine
DX: M25.561 Pain in right knee (principal); W19.XXXA Unspecified fall, initial encounter; G62.9 Polyneuropathy, unspecified
CPT/HCPCS: 36415; 72100; 73564; 80053; 82607; 84207; 84425; 85027; 86038

== ENCOUNTER 2024-11-21 12:20 | Emergency (ER) | payer MEDICARE, SELFPAY ==
[2017-09-29 14:27] VITALS: BMI 32.5
[2024-11-21 12:20] VITALS: BP 117/70; PULSE 57; RESP 18; TEMP 36.7; O2SAT 93
[2024-11-21 12:23] VITALS: BMI 25.2
--- NOTE | 2024-11-21 14:30 | EDS_ITS ---
HPI History of Present Illness Chief Complaint: Lower Extremity Injury Informant: patient Onset/Context/Timing Onset: Month(s) Context: Gradual Onset Timing: Continuous Quality: Dull, aching, weakness Location: Low back and right lower extremity Worsened by: Nothing Relieved by: Nothing Narrative Narrative: Patient presents with right leg weakness and back pain that has been getting worse over the past month. Patient states he has pain in his low back that is chronic. Patient describes his pain as dull and aching. Patient states nothing makes it better nothing makes it worse. Patient admits to weakness in his right lower extremity. Patient admits to some decrease sensation in his right lower extremity. Patient states he has fallen multiple times over the past month. Patient states that his primary care physician has scheduled an MRI of his back and brain but told him to come to the emergency department for evaluation. 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) Presence of stent in coronary artery (~09/29/17) Wears partial dentures Wears glasses Cancer Diabetes Arthritis High cholesterol Injury of back Former smoker Shortness of breath on exertion Chronic cough History of edema Hypertension History of CHF (congestive heart failure) History of heart attack History of irregular heartbeat History of stress test History of echocardiogram Normal stress echocardiogram Cardiology follow-up encounter NSVT (nonsustained ventricular tachycardia) Pericardial effusion Dilated cardiomyopathy Hypersomnia Premature ventricular contractions Shortness of breath Bradycardia Tobacco abuse Bladder cancer NSTEMI (non-ST elevated myocardial infarction) Atherosclerotic heart disease of [place] coronary artery with other forms of angina pectoris Chest pain Unstable angina Sustained ventricular tachycardia Home Medications ?Medication ?Instructions ?Recorded ?Last Taken ?Type aspirin 81 mg tablet,delayed 81 mg PO DAILY@0800 09/15/17 11/21/24 Rx release carvedilol 25 mg tablet 25 mg PO BID 09/13/19 11/21/24 History rosuvastatin 40 mg tablet 40 mg PO DAILY 09/13/19 11/20/24 History metformin 500 mg tablet,extended 500 mg PO BID 11/24/20 11/21/24 History release 24 hr empagliflozin 25 mg tablet 25 mg PO DAILY 04/07/22 11/20/24 History (Jardiance) lisinopril 40 mg tablet 40 mg PO DAILY #90 tabs 11/07/22 01/29/25 Rx tirzepatide 2.5 mg/0.5 mL 2.5 mg subcut QWEEK 03/09/23 Unknown History subcutaneous pen injector (Jeri) tramadol 50 mg tablet 50 mg PO BID PRN pain 09/08/23 11/21/24 History amiodarone 400 mg tablet 200 mg PO DAILY 04/25/24 11/21/24 History furosemide 20 mg tablet (Lasix) 20 mg PO DAILY #90 tabs 08/23/24 11/21/24 Rx Allergy/AdvReac Type Severity Reaction Status Date / Time morphine AdvReac Nausea/Vom/ Verified 11/21/24 14:44 Diarrhea Family History Mother CVA (cerebral vascular accident) Breast cancer Father Diabetes Heart disease Hypertension Sister Diabetes Hypertension Surgical History History of cardiac radiofrequency ablation Presence of coronary angioplasty implant and graft (~09/29/17) Hx of cystoscopy History of coronary artery stent placement History of cardiac catheterization History of left heart catheterization (11/07/19) H/O lumbar discectomy Social History Smoking Status: Former smoker how long ago did patient quit smokin09/13/2018 alcohol intake: never substance use type: does not use caffeine: No what type of physical activity do you participate in: none and bicycling frequency: 1-2 times per week duration: 15-30 minutes/day seatbelt use: always do you feel safe at home: Yes ROS ROS ED Constitutional Constitutional ED: Denies chills or fever(s) Eyes Eyes: Denies blurry vision or change in vision ENT ENT ED: Denies rhinorrhea or sore throat Cardiovascular Cardiovascular: Denies chest pain or palpitations Respiratory/Chest Respiratory/Chest: Denies cough or dyspnea Gastrointestinal Gastrointestinal: Denies nausea or vomiting Genitourinary Genitourinary ED: Denies dysuria or hematuria Musculoskeletal Musculoskeletal: Reports back pain; Denies neck pain Integumentary Denies abscess or rash Neurologic Neurologic: Reports paresthesias RLE and weakness; Denies headache(s) Allergic/Immunologic Allergic/Immunologic ED: Denies mouth swelling or urticaria EXAM Physical Exam Const Vital Signs: 11/21/24 12:20 11/21/24 14:45 Temperature 98.1 F Temperature Source Oral Pulse Rate 57 L 65 Respiratory Rate 18 16 Blood Pressure 117/70 132/71 H Blood Pressure Mean 85 91 Pulse Ox 93 94 Oxygen Delivery Method Room Air Room Air Positive well nourished and well developed General Appearance ED: well developed and NAD HEENT Reports moist mucous membranes Neck supple and no JVD Resp normal respiratory effort and clear to auscultation bilaterally Cardio regular rate and regular rhythm GI non-tender and non-distended Palpation: soft Neuro oriented x3 and CN's II-XII intact bilaterally Neuro Narrative: There is some decrease sensation to light touch in the right lower extremity from the hip to the toes. Strength is 4/5 in the right hip flexors and quadricep muscles. Strength is 5/5 in the left hip flexors and quadricep muscles. Strength is 5/5 in plantarflexion of the ankles and extension of the great toe bilaterally. Sensorium / Orientation: alert Psych mental status grossly normal Skin no rashes or lesions noted MDM MDM MDM Narrative Medical decision making narrative: Differential diagnosis includes lumbar radiculopathy, neuropathy, electrolyte abnormality, and lumbar metastatic disease. CBC will be obtained to assess for leukocytosis and anemia. Comprehensive metabolic profile will be obtained to assess for hepatic function, renal function, and electrolyte abnormality. Urinalysis will be obtained to assess for urinary tract infection and hematuria. CT scan of the lumbar spine will be obtained to assess for lumbar metastatic disease and fracture. Lab Data Attestation: I reviewed the patient's lab results. Lab results narrative: CBC was reviewed and was within normal limits. Comprehensive metabolic profile was reviewed and was essentially within normal limits. Urinalysis was reviewed. There is no evidence of urinary tract infection or hematuria. Labs: Laboratory Results - last 24 hr 11/21/24 11/21/24 15:20 15:35 WBC 7.6 RBC 4.55 L Hgb 14.1 Hct 43.0 MCV 94.5 H MCH 31.0 MCHC 32.8 RDW Std Deviation 49.6 H RDW Coeff of Arnie 14.3 Plt Count 170 MPV 10.6 Immature Gran % (Auto) 0.500 Neut % (Auto) 70.3 H Lymph % (Auto) 16.6 L [place] % (Auto) 9.9 Eos % (Auto) 2.0 Baso % (Auto) 0.7 Absolute Neuts (auto) 5.3 Absolute Lymphs (auto) 1.26 Nucleated RBC % 0 Sodium 140 Potassium 3.6 Chloride 106 Carbon Dioxide 27.0 Anion Gap 6 BUN 18 Creatinine 0.63 L Estim Creat Clear Calc 116.02 Est GFR (MDRD) Af Amer 164 Est GFR (MDRD) Non-Af 135 BUN/Creatinine Ratio 28.5 H Glucose 90 Calcium 9.2 Total Bilirubin 0.40 AST 16 ALT 29 Alkaline Phosphatase 78 Total Protein 6.7 Albumin 3.6 Globulin 3.1 Albumin/Globulin Ratio 1.2 Urine Color Yellow Urine Clarity Clear Urine pH 6.0 Ur Specific [place] 1.020 Urine Protein 15 H Urine Glucose (UA) 1000 H Urine Ketones Negative Urine Occult Blood 10 H Urine Nitrite Negative Urine Bilirubin Negative Urine Urobilinogen Normal Ur Leukocyte Esterase Negative Urine RBC 0-5 SEEN Urine WBC 0 SEEN Ur Squamous Epith Cells 0 SEEN Urine Bacteria 0 SEEN Urine Mucus 0 SEEN Radiography Diagnostic Testing: Clinical Impression(s) from Imaging Studies Lumbar Spine CT 11/21/24 14:52 IMPRESSION: Moderate multilevel degenerative changes throughout the lumbar spine with no acute osseous abnormality. One or more dose reduction techniques were used (e.g., Automated exposure control, adjustment of the mA and/or kV according to patient size, use of iterative reconstruction technique). Reading Location: [facility] CT scan of the lumbar spine was obtained. There are moderate multilevel degenerative changes. There is a moderate broad-based disc bulge at L5-S1 with moderate canal stenosis and moderate bilateral neuroforaminal narrowing. This was interpreted by the radiologist and was also independently reviewed by myself. Treatment and Re-Evaluation :: Patient was advised of his findings. Patient does not have any signs or symptoms of cauda equina syndrome. Patient was advised that he does not have an indication for an emergent MRI at this time. Patient is scheduled for an MRI on 12/05/2024. Patient was instructed to follow-up with that. Patient was instructed to return if worse in any way. Patient understood and was agreeable with the plan. All questions were answered. Discharge Plan Triage Chief Complaint: Lower Extremity Injury ED Provider: Schwiger,Jung Dx/Rx/DC Orders Clinical Impression: Acute low back pain, Right leg paresthesias, Right lumbar radiculopathy Instructions: ED Back Pain (Acute or Chronic), ED Back and Neck Pain, General, ED Paraesthesias Prescriptions: No Action carvedilol 25 mg tablet 25 mg PO BID rosuvastatin 40 mg tablet 40 mg PO DAILY metformin 500 mg tablet extended release 24 hr 500 mg PO BID Patient Comments: Take 1 tablet by mouth twice a day Jardiance 25 mg tablet 25 mg PO DAILY amiodarone 400 mg tablet 200 mg PO DAILY Rx Instructions: pt alternates between 200mg and 100mg every other day Mounjaro 2.5 mg/0.5 mL pen injector 2.5 mg subcut QWEEK tramadol 50 mg tablet 50 mg PO BID PRN (Reason: pain) aspirin 81 MG tablet 81 mg PO DAILY@0800 0RF lisinopril 40 mg tablet 40 mg PO DAILY Qty: 90 3RF furosemide [Lasix] 20 mg tablet 20 mg PO DAILY Qty: 90 3RF Primary Care Provider: Reagan Soto Referrals: Reagan Soto MD [Primary Care Provider] - 5-7 Days Print Language: Macedonian Disposition Disposition: Home, Self Care
--- NOTE | 2024-11-21 14:43 | ED.RN ---
THIS NURSE TOOK OVER THIS TEAM AND WAS UNABLE TO ASSESS HOW THE PT AMBULATES. PT STATES HE USES A WALKER AT HOME. PAIN AND WEAKNESS TO THE RLE
[2024-11-21 14:45] VITALS: BP 132/71; PULSE 65; RESP 16; O2SAT 94
--- NOTE | 2024-11-21 14:52 | CT_ITS ---
PROCEDURE: SPINE LUMBAR WITHOUT CONTRAST REASON FOR EXAM: Right lower extremity weakness TECHNIQUE: Lumbar spine CT without contrast. COMPARISON: None. FINDINGS: Vertebrae: Normal lumbar vertebral body heights. No evidence of fracture. Moderate spondylosis.. Mo derate discogenic degenerative changes. Alignment: No spondylolisthesis. L1-2: Mild broad-based disc bulge with mild canal stenosis and mild bilateral neural foraminal narrow ing L2-3: Mild broad-based disc bulge with mild canal stenosis and mild bilateral neural foraminal narrow ing L3-4: Mild broad-based disc bulge with mild canal stenosis and right neural foraminal narrowing L4-5: Mild broad-based disc bulge with mild canal stenosis and no neural foraminal narrowing. L5-S1: Moderate broad-based disc bulge with moderate canal stenosis and moderate right and mild left neural foraminal narrowing. Sacrum: Visualized upper sacrum and SI joints are unremarkable. Visualized retroperitoneal structures are unremarkable. CT/Spine Lumbar without Contrast IMPRESSION: Moderate multilevel degenerative changes throughout the lumbar spine with no ac merlyn osseous abnormality. One or more dose reduction techniques were used (e.g., Automated exposure contr ol, adjustment of the mA and/or kV according to patient size, use of iterative reconstruction technique). Reading Location: [facility]
[2024-11-21 15:34] LABS: Absolute Lymphocyte Count 1.26 X10^3/uL (0.83-4.51); Absolute Neutrophil Count 5.3 X10^3/uL (2.0-7.7); Basophil# 0.05 X10^3/uL; Basophil% 0.7 % (0-1); Eosinophil# 0.15 X10^3/uL; Hemoglobin 14.1 g/dL (13.0-16.5); Lymphocyte # 1.26 X10^3/ul (0.83-4.51); Lymphocyte % 16.6 % (19-41); Mean Corp Hgb Conc 32.8 g/dL (32-36); Mean Corpuscular Volume 94.5 fL (80-94); Mean Platelet Vol. 10.6 fl (6.2-12.0); Monocyte# 0.75 X10^3/uL; Monocyte% 9.9 % (0-10); NRBC Flagged by Analyzer 0 % (0-5); Neutrophil # 5.34 X10^3/uL (2.7-7.7); Neutrophil % 70.3 % (47-70); Platelet Count 170 K/mm3 (150-450); RBC Distribution Width CV 14.3 % (11.6-14.6); RBC Distribution Width SD 49.6 fl (35.1-43.9); Red Blood Count 4.55 M/mm3 (4.6-6.2); White Blood Count 7.6 K/mm3 (4.4-11.0)
[2024-11-21 16:04] LABS: ALB/GLOB Ratio 1.2 RATIO (0.9-2.4); AST(SGOT) 16 U/L (15-37); Alanine Aminotransfer ALT/SGPT 29 U/L (16-61); Albumin, Serum 3.6 g/dL (3.2-5.0); Alkaline Phosphatase 78 U/L (45-117); Anion Gap 6 (5-15); BUN 18 mg/dL (7-18); BUN/Creat Ratio 28.5 RATIO (10-20); Calcium,Total 9.2 mg/dL (8.5-10.1); Chloride 106 mmol/L (98-107); Creatinine, Serum 0.63 mg/dL (0.70-1.30); EST Glomerular Filtration Rate 135 mL/min (>60); Est Glom Filt Rate - Afr Amer 164 mL/min (>60); Estimated Creatinine Clearance 116.02 ml/min; Globulin 3.1 g/dL (2.2-4.2); Glucose 90 mg/dL (74-106); Potassium 3.6 mmol/L (3.5-5.1); Protein, Total 6.7 g/dL (6.4-8.2); Sodium Level 140 mmol/L (136-145)
[2024-11-21 16:33] LABS: Bacteria 0 SEEN /hpf (None Seen); Mucous, Urine 0 SEEN /hpf (<or=2+); Squamous Epithelial Cells - UA 0 SEEN /hpf (0-5); White Blood Cells 0 SEEN /hpf (0-5)
[2024-11-21 16:49] LABS: Color, Urine Yellow (Yellow); Glucose, Dipstick 1000 mg/dl (Normal); Ketone-Dipstick Negative (Negative); Leukocyte Esterase-Dipstick Negative /ul (Negative); Nitrite-Dipstick Negative (Negative); Occult Blood-Urine 10 /ul (Negative); Protein-Dipstick 15 mg/dl (Negative); Urine Bilirubin Dipstick Negative (Negative); Urine Clarity Clear (Clear); Urine Urobilinogen Normal (Normal)
[2024-11-21 17:09] LABS: Red Blood Cells-Urine 0-5 SEEN /hpf (0-5)
[2024-11-21 18:00] VITALS: BP 132/65; PULSE 63; RESP 17; O2SAT 98
[2024-11-21 18:08] VITALS: BP 134/78; PULSE 65; RESP 16; TEMP 36.9; O2SAT 99
== END 2024-11-21 18:10 | disposition home or self-care (01) ==
PROVIDERS: Emergency Provider Emergency Medicine; PCP Family Medicine; Visit Provider Emergency Medicine
DX: M54.50 Low back pain, unspecified (principal); I11.0 Hypertensive heart disease with heart failure; I50.9 Heart failure, unspecified; E11.9 Type 2 diabetes mellitus without complications; M47.26 Other spondylosis with radiculopathy, lumbar region; Z87.891 Personal history of nicotine dependence; I25.10 Atherosclerotic heart disease of native coronary artery without angina pectoris; E78.00 Pure hypercholesterolemia, unspecified; G57.11 Meralgia paresthetica, right lower limb; Z95.810 Presence of automatic (implantable) cardiac defibrillator; Z95.5 Presence of coronary angioplasty implant and graft; I25.2 Old myocardial infarction; Z79.82 Long term (current) use of aspirin; Z79.899 Other long term (current) drug therapy; Z79.84 Long term (current) use of oral hypoglycemic drugs; Z79.85 Long-term (current) use of injectable non-insulin antidiabetic drugs
CPT/HCPCS: 72131; 80053; 81001; 85025; 99283

== ENCOUNTER → 2024-12-05 | Outpatient (CLI) | payer MEDICARE, SELFPAY ==
[2017-09-29 14:27] VITALS: BMI 32.5
[2024-12-05] VITALS (7 sets, daily range): BP systolic 91–143; BP diastolic 73–90; PULSE 58–70; RESP 18; O2SAT 92–94
--- NOTE | 2024-12-05 10:19 | MRI_ITS ---
PROCEDURE: BRAIN W/WO CONTRAST REASON FOR EXAM: Loss of balance, loss of proprioception. Antalgic gait. TECHNIQUE: Multiplanar, multisequence MRI of the brain without and with intravenous gadolinium-based contrast. CONTRAST: Intravenous 19 mL Clariscan. COMPARISON: None provided. FINDINGS: Diffusion-weighted images demonstrate no area of restricted diffusion. Moderate bilateral cerebral and pontine white matter changes are most consistent with chronic ischemic changes of small-vessel disease. No intracranial mass or mass effect is seen. No midline shift is evident. No extra-axial fluid collection is seen. Internal auditory canals appear symmetric and within the normal range. Following intravenous contrast administration, no area of abnormal enhancement is seen. No orbital pathology is noted. Mild nasal septal deviation to the right is seen. The paranasal sinuses appear clear, as do the mastoid air cells. MRI/Brain W/WO Contrast IMPRESSION: 1. No acute intracranial abnormality is noted. 2. Moderate bilateral cerebral and pontine white matter changes, most consisten t with chronic ischemic changes of small-vessel disease. Reading Location: [id number]
--- NOTE | 2024-12-05 10:19 | MRI_ITS ---
PROCEDURE: MRI lumbar spine without IV contrast REASON FOR EXAM: Pain TECHNIQUE: Multisequence multiplanar MR images of the lumbar spine were obtained without IV contrast. COMPARISON: None. FINDINGS: Vertebral body heights are maintained. Negative for acute fracture or marrow replacement. No significant malalignment. Mild multilevel disc desiccation and disc space narrowing. Conus medullaris is within normal limits and terminates at L1. Abdominal aortic aneurysm measuring up to 4.1 cm. Mild paraspinal muscle atrophy. L1-2: No focal disc abnormality, spinal stenosis or foraminal narrowing. Mild bilateral facet arthrosis. L2-3: Mild posterior disc bulge eccentric to the right. Mild bilateral facet arthrosis. No significant spinal stenosis or foraminal narrowing. L3-4: Posterior disc bulge eccentric to the right with a superimposed annular fissure. Mild bilateral facet arthrosis and ligamentum flavum hypertrophy. No significant spinal stenosis. Mild/moderate bilateral foraminal narrowing, greater on the right. L4-5: Posterior disc bulge eccentric to the right with superimposed annular fissure and small right central disc protrusion. Moderate bilateral facet arthrosis and ligamentum flavum hypertrophy. Mild spinal stenosis. Moderate narrowing of the right lateral recess. Severe right and moderate/severe left foraminal narrowing. L5-S1: Posterior disc bulge width superimposed right central disc protrusion. Mild bilateral facet arthrosis. No significant spinal stenosis. Severe bilateral foraminal narrowing, slightly greater on the right. MRI/Spine Lumbar (Routine) IMPRESSION: 1. Acquired mild spinal stenosis at L4-L5. 2. Acquired multilevel foraminal narrowing, greatest from L4 through S1 categor ized as severe. 3. Abdominal aortic aneurysm measuring up to 4.1 cm. Reading Location: [facility]
== END | disposition home or self-care (01) ==
LOC: MRI 10:16
PROVIDERS: PCP Family Medicine; Referring Provider Family Medicine; Visit Provider Family Medicine
DX: R27.8 Other lack of coordination (principal); R29.818 Other symptoms and signs involving the nervous system
CPT/HCPCS: 70553; 72148; A9575

== ENCOUNTER 2024-12-07 14:03 | Emergency (ER) | payer MEDICARE, SELFPAY ==
[2017-09-29 14:27] VITALS: BMI 32.5
[2024-12-07 14:04] VITALS: BP 142/78; PULSE 70; RESP 14; TEMP 36.5; O2SAT 98
[2024-12-07 14:07] VITALS: BMI 25.0
--- NOTE | 2024-12-07 14:23 | EX.ED.DYSGE1 ---
HPI History of Present Illness Chief Complaint: Other, Pain/Inj Informant: patient Onset/Context/Timing Onset: Weeks Context: Gradual Onset Timing: Continuous Quality: Weakness Location: Patient to the bilateral lower extremities and right upper extremity Worsened by: Nothing Relieved by: Nothing Narrative Narrative: Patient presents with increasing weakness over the past few weeks. Patient had a recent MRI which showed foraminal stenosis of the lumbar spine and a chronic changes of his brain. Patient states that he has been having some increasing paresthesias in his right little finger and weakness with his fine motor of his hands. 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 Patient states he did have a slight fall where he was trying to get up from the toilet and fell to the side. Patient denies any head injury or loss of consciousness. Patient denies any pain from the fall. Patient states he saw his primary care physician today and was referred to the emergency department after his primary care physician discussed his care with Dr. Call from orthopedics. He states he was told to come get an MRI of his cervical spine. 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) Presence of stent in coronary artery (~09/29/17) Wears partial dentures Wears glasses Cancer Diabetes Arthritis High cholesterol Injury of back Former smoker Shortness of breath on exertion Chronic cough History of edema Hypertension History of CHF (congestive heart failure) History of heart attack History of irregular heartbeat History of stress test History of echocardiogram Normal stress echocardiogram Cardiology follow-up encounter NSVT (nonsustained ventricular tachycardia) Pericardial effusion Dilated cardiomyopathy Hypersomnia Premature ventricular contractions Shortness of breath Bradycardia Tobacco abuse Bladder cancer NSTEMI (non-ST elevated myocardial infarction) Atherosclerotic heart disease of [place] coronary artery with other forms of angina pectoris Chest pain Unstable angina Sustained ventricular tachycardia Home Medications ?Medication ?Instructions ?Recorded ?Last Taken ?Type aspirin 81 mg tablet,delayed 81 mg PO DAILY@0800 09/15/17 11/21/24 Rx release carvedilol 25 mg tablet 25 mg PO BID 09/13/19 11/21/24 History rosuvastatin 40 mg tablet 40 mg PO DAILY 09/13/19 11/20/24 History metformin 500 mg tablet,extended 500 mg PO BID 11/24/20 11/21/24 History release 24 hr empagliflozin 25 mg tablet 25 mg PO DAILY 04/07/22 11/20/24 History (Jardiance) lisinopril 40 mg tablet 40 mg PO DAILY #90 tabs 08/30/22 11/21/24 Rx tirzepatide 2.5 mg/0.5 mL 2.5 mg subcut QWEEK 03/09/23 Unknown History subcutaneous pen injector (Mounjaro) tramadol 50 mg tablet 50 mg PO BID PRN pain 09/08/23 11/21/24 History amiodarone 400 mg tablet 200 mg PO DAILY 04/25/24 11/21/24 History furosemide 20 mg tablet (Lasix) 20 mg PO DAILY #90 tabs 08/23/24 11/21/24 Rx Allergy/AdvReac Type Severity Reaction Status Date / Time morphine AdvReac Nausea/Vom/ Verified 12/07/24 14:07 Diarrhea Family History Mother CVA (cerebral vascular accident) Breast cancer Father Diabetes Heart disease Hypertension Sister Diabetes Hypertension Surgical History History of cardiac radiofrequency ablation Presence of coronary angioplasty implant and graft (~09/29/17) Hx of cystoscopy History of coronary artery stent placement History of cardiac catheterization History of left heart catheterization (11/07/19) H/O lumbar discectomy Social History Smoking Status: Former smoker how long ago did patient quit smokin09/13/2018 alcohol intake: never substance use type: does not use caffeine: No what type of physical activity do you participate in: none and bicycling frequency: 1-2 times per week duration: 15-30 minutes/day seatbelt use: always do you feel safe at home: Yes ROS ROS ED Constitutional Constitutional ED: Denies chills or fever(s) Eyes Eyes: Denies blurry vision or change in vision ENT ENT ED: Denies rhinorrhea or sore throat Cardiovascular Cardiovascular: Denies chest pain or palpitations Respiratory/Chest Respiratory/Chest: Denies cough or dyspnea Gastrointestinal Gastrointestinal: Denies nausea or vomiting Genitourinary Genitourinary ED: Denies dysuria or hematuria Musculoskeletal Musculoskeletal: Reports back pain; Denies neck pain Integumentary Denies abscess or rash Neurologic Neurologic: Reports paresthesias and weakness; Denies headache(s) Allergic/Immunologic Allergic/Immunologic ED: Denies mouth swelling or urticaria EXAM Physical Exam Const Vital Signs: 12/07/24 14:04 Temperature 97.7 F L Temperature Source Oral Pulse Rate 70 Respiratory Rate 14 Blood Pressure 142/78 H Blood Pressure Mean 99 Pulse Ox 98 Oxygen Delivery Method Room Air Positive well nourished and well developed General Appearance ED: well developed and NAD HEENT Reports moist mucous membranes Neck supple and no JVD Resp normal respiratory effort and clear to auscultation bilaterally Cardio regular rate and regular rhythm GI non-tender and non-distended Palpation: soft Extremity Extremity Narrative: There is some mild atrophy of the right forearm and hand. There is good cisco engineer strength when he shook my hand. Neuro oriented x3, CN's II-XII intact bilaterally and no sensory deficits noted Sensorium / Orientation: alert Motor Exam: strength 5/5 throughout Psych mental status grossly normal MDM MDM MDM Narrative Medical decision making narrative: Differential diagnose includes cervical radiculopathy, lumbar radiculopathy, muscle strain, anemia, and electrolyte abnormality. CBC will be obtained to assess for leukocytosis and anemia. Basic metabolic profile will be obtained to assess for electrolyte abnormality and renal function. Management Discussion w/another healthcare provider: Podiatrist Orthopedic (Dr. Call from orthopedics) Treatment and Re-Evaluation :: Case was discussed with Dr. Marie from orthopedics. He stated that he saw the recruitment coordinator images from the lumbar spine MRI and felt that patient had some compression of his cervical cord. He did recommend getting an MRI. I discussed case with MRI and they are unable to do an MRI today for over the weekend since they do not have nursing staff and they require somebody from the pacemaker company to be available to turn off the pacemaker for the MRI. Patient was advised of this. Patient states he would prefer to go home. Patient will be discharged home. I did order an outpatient MRI. This was faxed to MRI. They will send it for scheduling and the patient will be scheduled for an outpatient MRI of his cervical spine. Patient states he will come back if his symptoms get worse in any way. Patient was instructed to follow-up with Dr. Marie and Dr. Soto after MRI results. Patient understands and is agreeable with the plan. All questions were answered. Discharge Plan Triage Chief Complaint: Other, Pain/Inj ED Provider: Jung Palmer Dx/Rx/DC Orders Clinical Impression: Paresthesias, Cervical myelopathy Instructions: ED Paraesthesias Prescriptions: No Action carvedilol 25 mg tablet 25 mg PO BID rosuvastatin 40 mg tablet 40 mg PO DAILY metformin 500 mg tablet extended release 24 hr 500 mg PO BID Patient Comments: Take 1 tablet by mouth twice a day Jardiance 25 mg tablet 25 mg PO DAILY amiodarone 400 mg tablet 200 mg PO DAILY Rx Instructions: pt alternates between 200mg and 100mg every other day Mounjaro 2.5 mg/0.5 mL pen injector 2.5 mg subcut QWEEK tramadol 50 mg tablet 50 mg PO BID PRN (Reason: pain) aspirin 81 MG tablet 81 mg PO DAILY@0800 0RF lisinopril 40 mg tablet 40 mg PO DAILY Qty: 90 3RF furosemide [Lasix] 20 mg tablet 20 mg PO DAILY Qty: 90 3RF Primary Care Provider: Reagan Soto Referrals: Ramon Call MD [Med Staff - Active Staff] - 5-7 Days Reagan Soto MD [Primary Care Provider] - 5-7 Days Print Language: Latvian Disposition Disposition: Home, Self Care
--- NOTE | 2024-12-07 14:24 | ED.RN ---
PT SENT OVER FROM DR PYLE D/T LOST FEELING IN THE RLE AND RIGHT HAND IS LOST FEELING IN PINKY FINGER. THEY AR REQUESTING HIM TO HAVE MRI OF NECK.
== END 2024-12-07 16:21 | disposition home or self-care (01) ==
PROVIDERS: Emergency Provider Emergency Medicine; PCP Family Medicine; Referring Provider Emergency Medicine; Visit Provider Emergency Medicine
DX: R53.1 Weakness (principal); G95.9 Disease of spinal cord, unspecified; I11.0 Hypertensive heart disease with heart failure; I50.9 Heart failure, unspecified; E11.9 Type 2 diabetes mellitus without complications; R20.2 Paresthesia of skin; I25.10 Atherosclerotic heart disease of native coronary artery without angina pectoris; E78.00 Pure hypercholesterolemia, unspecified; Z87.891 Personal history of nicotine dependence; Z95.5 Presence of coronary angioplasty implant and graft; Z95.810 Presence of automatic (implantable) cardiac defibrillator; I25.2 Old myocardial infarction; Z79.82 Long term (current) use of aspirin; Z79.899 Other long term (current) drug therapy; Z79.84 Long term (current) use of oral hypoglycemic drugs
CPT/HCPCS: 99282; A4216

== ENCOUNTER → 2024-12-10 | Outpatient (CLI) | payer MEDICARE, SELFPAY ==
[2017-09-29 14:27] VITALS: BMI 32.5
--- NOTE | 2024-12-10 14:26 | MRI_ITS ---
PROCEDURE: MRI cervical spine without and with IV contrast REASON FOR EXAM: Pain, right-sided weakness TECHNIQUE: Multisequence multiplanar MR images of the cervical spine were obtained before and after the administration of intravenous contrast. COMPARISON: 12/14/2024 FINDINGS: Vertebral body heights are within normal limits. Negative for acute fracture or marrow replacement. Advanced multilevel degenerative disc disease. Alignment is within normal limits. Multifocal areas of increased cord signal throughout the spine likely from myelomalacia due to severe multilevel spinal stenosis. No suspicious enhancement. C2-3: Posterior disc bulge. Moderate bilateral facet arthrosis. Mild spinal stenosis. Moderate right and severe left foraminal narrowing. C3-4: Posterior disc osteophyte complex. Moderate bilateral facet arthrosis and ligamentum flavum hypertrophy. Bilateral uncovertebral arthrosis. Severe spinal stenosis. Severe bilateral foraminal narrowing. C4-5: Posterior disc osteophyte complex. Bilateral facet and uncovertebral arthrosis. Moderate/severe bilateral foraminal narrowing. C5-6: Posterior disc osteophyte complex eccentric to the right. Bilateral uncovertebral and facet arthrosis. Severe spinal stenosis. Severe bilateral foraminal narrowing. C6-7: Posterior disc osteophyte complex with superimposed central disc extrusion demonstrating 6 mm of cranial migration. Bilateral uncovertebral arthrosis. Severe spinal stenosis with essentially nonvisualization of the spinal cord. Severe bilateral foraminal narrowing. C7-T1: Small posterior disc bulge. Moderate bilateral facet arthrosis. No significant spinal stenosis. Mild right foraminal narrowing. MRI/Spine Cervical W/WO Contrast IMPRESSION: 1. Acquired severe multilevel spinal stenosis, greatest at C6-7. See level by level comments above. 2. Acquired severe multilevel bilateral foraminal narrowing. 3. Multifocal areas of increased cord signal throughout the cervical spine like ly related to myelomalacia from severe multilevel spinal stenosis. Reading Location: [facility]
[2024-12-10 14:33] VITALS: BP 96/52; PULSE 62; RESP 14; O2SAT 92
[2024-12-10 14:36] VITALS: PULSE 80; RESP 16; O2SAT 93
[2024-12-10 14:48] VITALS: BP 121/83; PULSE 80; RESP 16; O2SAT 95
[2024-12-10 15:00] VITALS: BP 99/67; PULSE 80; RESP 16; O2SAT 92
[2024-12-10 15:15] VITALS: BP 110/69; PULSE 81; RESP 16; O2SAT 95
[2024-12-10 15:36] VITALS: BP 97/69; PULSE 62; RESP 16; O2SAT 92
== END | disposition home or self-care (01) ==
PROVIDERS: PCP Family Medicine; Referring Provider Emergency Medicine; Visit Provider Emergency Medicine
DX: R20.2 Paresthesia of skin (principal); R53.1 Weakness
CPT/HCPCS: 72156; A9575

== ENCOUNTER → 2024-12-17 | Outpatient (CLI) | payer MEDICARE, SELFPAY ==
[2017-09-29 14:27] VITALS: BMI 32.5
--- NOTE | 2024-12-17 10:58 | CT_ITS ---
PROCEDURE: SPINE CERVICAL WITHOUT CONTRAS REASON FOR EXAM: History of paralysis. Right-sided neck pain. TECHNIQUE: Cervical spine CT without contrast. COMPARISON: None. FINDINGS: Alignment: Normal Vertebrae: Multilevel spondylosis. Soft Tissues: Unremarkable C1-2: Normal alignment. Dens appears intact. Degenerative changes at the atlantoaxial joint. C2-3: Unremarkable C3-4: Moderate degree of disc space narrowing. Spondylosis. Facet joint osteoarthritis more prominent on the right side. C4-5: Mild degree of disc space narrowing and disc degeneration. Anterior spondylosis. Uncovertebral arthrosis with a moderate degree of bilateral neural foraminal stenosis worse on the right side. C5-6: Marked degree of disc space narrowing. Spondylosis. Marked degree of central canal stenosis. Bilateral neural foraminal stenosis. C6-7: Marked degree of disc space narrowing. Spondylosis. Moderate to marked degree of central canal stenosis. C7-T1: Disc space narrowing and spondylosis. CT/Spine Cervical without Contras IMPRESSION: NO ACUTE CERVICAL FRACTURE. Marked degree of central canal stenosis at the C5-C6 and C6-C7 levels. One or more dose reduction techniques were used (e.g., Automated exposure contr ol, adjustment of the mA and/or kV according to patient size, use of iterative reconstruction technique). Reading Location: [facility]
[2024-12-17 11:26] LABS: Absolute Lymphocyte Count 1.19 X10^3/uL (0.83-4.51); Absolute Neutrophil Count 6.8 X10^3/uL (2.0-7.7); Basophil# 0.05 X10^3/uL; Basophil% 0.6 % (0-1); Eosinophil# 0.11 X10^3/uL; Eosinophils% 1.2 % (0-5); Hematocrit 42.6 % (40-54); Lymphocyte # 1.19 X10^3/ul (0.83-4.51); Lymphocyte % 13.5 % (19-41); Mean Corp Hgb Conc 32.9 g/dL (32-36); Mean Corpuscular Hgb 31.6 pg (27.0-32.0); Mean Corpuscular Volume 96.2 fL (80-94); Mean Platelet Vol. 10.9 fl (6.2-12.0); Monocyte# 0.66 X10^3/uL; Monocyte% 7.5 % (0-10); NRBC Flagged by Analyzer 0 % (0-5); Neutrophil # 6.77 X10^3/uL (2.7-7.7); Neutrophil % 76.7 % (47-70); Platelet Count 166 K/mm3 (150-450); RBC Distribution Width CV 13.8 % (11.6-14.6); RBC Distribution Width SD 49.4 fl (35.1-43.9); Red Blood Count 4.43 M/mm3 (4.6-6.2); White Blood Count 8.8 K/mm3 (4.4-11.0)
[2024-12-17 11:41] LABS: Hemoglobin A1c 6.3 % (3.8-5.6)
[2024-12-17 21:25] LABS: AST(SGOT) 23 U/L (15-37); Alanine Aminotransfer ALT/SGPT 36 U/L (16-61); Albumin, Serum 3.3 g/dL (3.2-5.0); Alkaline Phosphatase 75 U/L (45-117); Anion Gap 6 (5-15); BUN 18 mg/dL (7-18); BUN/Creat Ratio 30.7 RATIO (10-20); Calcium,Total 8.6 mg/dL (8.5-10.1); Chloride 108 mmol/L (98-107); Cholesterol 113 mg/dL (200); Creatinine, Serum 0.59 mg/dL (0.70-1.30); EST Glomerular Filtration Rate 148 mL/min (>60); Est Glom Filt Rate - Afr Amer 178 mL/min (>60); Globulin 3.2 g/dL (2.2-4.2); Glucose 148 mg/dL (74-106); High Density Lipoprotein 53 mg/dL; Magnesium 2.3 mg/dL (1.6-2.6); Potassium 3.8 mmol/L (3.5-5.1); Protein, Total 6.5 g/dL (6.4-8.2); Sodium Level 141 mmol/L (136-145); Triglycerides 57 mg/dL; Very Low Density Lipoprotein 11 mg/dL (5-40)
== END | disposition home or self-care (01) ==
LOC: CT 10:47
PROVIDERS: PCP Family Medicine; Referring Provider Student in an Organized Health Care Education/Training Program; Visit Provider Student in an Organized Health Care Education/Training Program
DX: G95.9 Disease of spinal cord, unspecified (principal); I47.29 Other ventricular tachycardia; E11.69 Type 2 diabetes mellitus with other specified complication
CPT/HCPCS: 36415; 72125; 80053; 80061; 83036; 83735; 84443; 85025

== ENCOUNTER 2024-12-24 16:25 | Inpatient (IN) | payer MEDICARE, SELFPAY ==
[2017-09-29 14:27] VITALS: BMI 32.5
[2024-12-24 16:49] VITALS: BP 98/57; PULSE 61; RESP 17; TEMP 36.3; O2SAT 97
[2024-12-24 16:50] VITALS: BMI 25.0
--- NOTE | 2024-12-24 17:13 | HP.PCM_ITS ---
[facility] Date of Admission: 12/24/24 Date of Service: 12/24/24 Chief Complaint: Debility due to cervical canal stenosis with myelopathy and neuropathy. S/P cervical laminectomy and fusion. [facility] Katt ZIMMER, is a 64 YO M with a PMH of coronary artery disease, PCI x 4, ventricular tachycardia, AICD placement, left bundle branch block, ischemic cardiomyopathy (he 30% EF on echocardiogram in 2021), history of EPS with successful ablation of VT on 02/22/2022, hx of recurrent Vt following ablation when amiodarone was discontinued, hypertension, diabetes mellitus type 2, hyperlipidemia and cervical canal stenosis with myelopathy and neuropathy. He underwent C2-T1 posterior spinal fusion on 12/20/2024 at [facility]. Postoperative complication included mild acute blood loss anemia. He was transferred to the acute inpt rehab unit at [facility] on 12/24/24 for 3 hours of therapy daily to restore function/independence at or near his level prior to surgery. Prior to surgery he was in a WC and could not move the R leg. He had decreased sensation in both hands and in the RUE and RLE. Sx started approximately 3 years ago and have progressed since then. He has also been falling at home and has had severe radicular pain, rohini in the RLE. MRI of the cervical spine done on 12/10/2023 and it showed acquired severe multilevel spinal stenosis, greatest at C6-C7. There was also acquired severe multilevel bilateral foraminal narrowing and multifocal areas of increased cord signal throughout the cervical spine likely related to myelomalacia from severe multilevel spinal stenosis. He sees Dr. Medina for pain management. He was taking Tramadol 50 mg Q6 PRN prior to surgery and has had epidurals for low back pain in the past. ECHO on 12/21/2024 showed an EF of 45 to 50% with basal inferior segment mildly hypokinetic. There was normal diastolic function. The right ventricle was normal. Left atrial cavity was mildly dilated and a bubble study was negative for PFO/ASD. Vital signs at presentation to rehab are temp 97.3, heart rate 61, blood pressure 98/57 and pulse ox of 97% on room air. Hemoglobin A1c on 12/17/2024 was 6.3. [facility] Medical History (Updated 12/25/24 @ 09:[address] Tabitha Bobo, DO) Radiculopathy due to cervical spondylosis at multiple levels Myelopathy concurrent with and due to spinal stenosis of cervical region Cervical stenosis of spinal canal Left bundle branch block Tobacco dependence in remission Hyperlipidemia Positive colorectal cancer screening using Cologuard test Presence of cardiac resynchronization therapy defibrillator (SOLE SKIVER-D) (~11/19/19) Presence of stent in coronary artery (~09/29/17) Wears partial dentures Wears glasses Cancer Arthritis Injury of back Shortness of breath on exertion Chronic cough History of edema Hypertension History of CHF (congestive heart failure) History of stress test History of echocardiogram Normal stress echocardiogram Cardiology follow-up encounter NSVT (nonsustained ventricular tachycardia) Pericardial effusion Dilated cardiomyopathy Hypersomnia Premature ventricular contractions Shortness of breath Bradycardia Bladder cancer NSTEMI (non-ST elevated myocardial infarction) Atherosclerotic heart disease of [place] coronary artery with other forms of angina pectoris Unstable angina Sustained ventricular tachycardia Home Medications ?Medication ?Instructions ?Recorded ?Last Taken ?Type aspirin 81 mg tablet,delayed 81 mg PO DAILY@0800 heart 09/15/17 11/21/24 Rx release carvedilol 25 mg tablet 12.5 mg PO BID heart 9 11/21/24 History rosuvastatin 40 mg tablet 40 mg PO QHS cholesterol 11/20/24 History metformin 500 mg tablet,extended 500 mg PO BID dm 11/1311/21/24 History release 24 hr empagliflozin 25 mg tablet 25 mg PO DAILY dm 04/07/22 11/20/24 History (Jardiance) amiodarone 400 mg tablet 200 mg PO DAILY heart 11/21/24 History furosemide 20 mg tablet (Lasix) 20 mg PO DAILY ditututi c #90 tabs 08/23/24 11/21/24 Rx gabapentin 300 mg capsule 300 mg PO Q8H pain 12/24/24 Unknown History lisinopril 40 mg tablet 5 mg PO DAILY bp 12/24/24 Un known History oxycodone 5 mg tablet 5 - 10 mg PO Q4H PRN pain Unknown History Allergy/AdvReac Type Severity Reaction Status Date / Time morphine AdvReac Nausea/Vom/ Verified 12/24/24 17:13 Diarrhea Family History Mother CVA (cerebral vascular accident) Breast cancer Father Diabetes Heart disease Hypertension Sister Diabetes Hypertension Surgical History (Updated 12/25/24 @ 09:[address] Tabitha Bobo DO) H/O laminectomy History of cardiac radiofrequency ablation Presence of coronary angioplasty implant and graft (~09/29/17) Hx of cystoscopy History of coronary artery stent placement History of cardiac catheterization History of left heart catheterization (11/07/19) H/O lumbar discectomy Social History household members: spouse and other details: W9ife's name is Holly housing: house number of children: 2 Smoking Status: Former smoker Tobacco: How many years used: 43 how long ago did patient quit smokin09/13/2018 alcohol intake: current alcohol intake frequency: holidays/special occasions only substance use type: does not use caffeine: No what type of physical activity do you participate in: none and additional details: Has been in a WC recently and prior to that had a walker How many days of moderate to strenuous exercise, like a brisk walk, did you do in the last 7 days: 0 seatbelt use: always do you feel safe at home: Yes ROS Constitutional Constitutional: Reports change in weight, difficulty sleeping, weight loss and other Details: Change in weight of about 80 lbs in the past 1-2 years. Used Mounjaro and healthy diet. ; Denies anorexia, chills, fatigue, fever(s), night sweats or weakness Eyes Eyes: Denies blurry vision, change in vision, eye pain or loss of vision ENT HEENT: Denies abnormal hearing, dysphagia, headache(s), hearing loss, nasal congestion, rhinorrhea, sinus pain or sore throat Cardiovascular Cardiovascular: Denies chest pain, dyspnea on exertion, edema, lightheadedness, orthopnea, palpitations, paroxysmal nocturnal dyspnea or syncope Respiratory/Chest Respiratory/Chest: Reports other Details: Feels congested......can not get a good cough to clear his throat which he attributes to the Mor[place] J collar. Denies any hx of Asthma/COPD/emphysema ; Denies cough, dyspnea, shortness of breath at rest, shortness of breath with exertion or wheezing Gastrointestinal Gastrointestinal: Reports other Details: Had been constipated but, had a large BM today prior to coming to rehab ; Denies abdominal pain, constipation, diarrhea, dyspepsia, hematemesis, hematochezia, nausea or vomiting Genitourinary Genitourinary: Reports nocturia, urinary frequency, urinary hesitancy and other Details: Has a hx of bladder CA treated with intravesical radiation. has frequent nocturia......sometimes 5 times a night. Sometimes does not feel like he completely empties......has to bear down at times. Had a Fernandez at previous hospital ; Denies dysuria, hematuria, urinary incontinence or urinary urgency Musculoskeletal Musculoskeletal: Reports back pain, neck pain and other Details: c/o pain in the tailbone. ; Denies joint pain or joint swelling Neurologic Neurologic: Reports focal weakness, paresthesias RUE and RLE (both hands) and other Details: has not been able to move the R leg or feel it in the past several months ; Denies confusion, disequilibrium, dizziness, headache(s), seizures, syncope or tremor(s) Psychiatric Psychiatric: Denies anxiety, depression, homicidal ideation or suicidal ideation Endocrine Endocrinology: Denies change in body appearance, cold intolerance, excessive sweating, heat intolerance, polydipsia or polyuria Hematologic/Lymphatic Hematologic/Lymphatic: Denies easy bleeding, easy bruising or lymphadenopathy Allergic/Immunologic Allergic/Immunologic: Denies rhinitis, eczemia or asthma Physical Exam Const alert and oriented x3 Constitutional Narrative: Making good eye contact, appropriate. Appears to be in pain. Increased pain with the ambulance ride from the previous hospital. General Appearance: cooperative and well kempt HEENT moist oral mucous membranes HEENT Narrative: No thrush. Tongue protrudes on the midline. Head and Scalp: normocephalic and atraumatic Eyes PERRL, EOMs intact bilaterally, conjunctivae normal and no scleral icterus Eyes Narrative: No discharge from the eyes General Eye: normal appearance of both eyes Neck Neck Narrative: Mor[place] J collar is in place. Chest Chest: symmetrical chest wall rise Resp normal respiratory effort, no use of accessory muscles and clear to auscultation bilaterally Resp Narrative: Not tachypneic and no conversational dyspnea. No coughing with deep breath. Effort and Inspection: able to speak in complete sentences Cardio regular rate, regular rhythm, S1 normal heart sound, S2 normal heart sound, no murmurs, no rub and no gallops Cardio Narrative: No ectopy GI normal to inspection, nondistended, normoactive bowel sounds and non-tender GI Narrative: No guarding with palpation. Back/Spine General Back: Negative for CVA tenderness Extremity no clubbing, cyanosis or edema and no calf tenderness Skin no jaundice Neuro oriented x3 and CN's II-XII intact bilaterally Neuro Narrative: good rebrander strength BL. R hand dominant. Hold both arms up for 10 sec with no drift. Holds the left leg up for a count of 5 with no drift. Has some drift with the RLE. The R legs is weaker than the left. Good plantar flexion and dorsiflexion BL. Decreased sensation to pinprick in the RUE and the RLE. No facial asymmetry. Had no movement in the RLE prior to the surgery. No gross hearing deficits. Motor Exam: strength 5/5 throughout Psych affect normal Psych Narrative: Appropriate, making good eye contact. Able to stay on topic and focus. No flight of ideas. Does not appear anxious or depressed. Conversant with me. Appearance: grossly normal, appropriate and well kempt Attitude: calm and engaged Results Lab / Micro Data 12/25/24 05:29 12/25/24 05:29 Assessment & Plan Assessment/Plan (1) Debility: (2) Cervical stenosis of spinal canal: (3) Myelopathy concurrent with and due to spinal stenosis of cervical region: (4) Radiculopathy due to cervical spondylosis at multiple levels: (5) H/O laminectomy: (6) Acute blood loss anemia: (7) Urine retention: (8) Diabetes mellitus, type II: QUALIFIERS: Diabetes mellitus group home insulin use: without group home use Diabetes mellitus complication status: without complication Qualified Code(s): E11.9 - Type 2 diabetes mellitus without complications (9) Hyperlipidemia: QUALIFIERS: Hyperlipidemia type: unspecified Qualified Code(s): E 78.5 - Hyperlipidemia, unspecified (10) Hypertension: QUALIFIERS: Hypertension type: primary hypertension Qualified Code(s): I10 - Essential (primary) hypertension (11) Presence of cardiac resynchronization therapy defibrillator (SOLE SKIVER-D): (12) Presence of stent in coronary artery: (13) NSVT (nonsustained ventricular tachycardia): (14) Dilated cardiomyopathy: (15) Bladder cancer: QUALIFIERS: Bladder location: unspecified site Qualified Code(s): C67.9 - Malignant neoplasm of bladder, unspecified PLAN: Plan PLAN PT for gait stability OT for ADL's Analgesics as needed Bowel protocol Fall precautions Assess for Anxiety/Depression GI prophylaxis -not necessary at this time. Denies heartburn, epigastric pain, nausea/vomiting. Denies history of peptic ulcer disease. DVT prophylaxis with heparin 5000 units SQ every [address] up [address] Dr. Carmelo Arriola, PCP, cardiology following DC from Rehab. He is also going to follow up with the EP service at [facility] for possible repeat ablation of VT. AM lab including CMP, CBC, Mag and Phos Accuchecks AC and HS and SSI coverage. Continue Metformin 500 mg BID CArb controlled heat healthy diet. DC Tramadol for now........he tells me that his pain is not adequately controlled at present and he gets better relief with Percocet. Will schedul Oxycodone 10 mg at 0700 and 12 noon to get him through therapy and then use PRN in the evening/night. Stool softeners prescribed. 75 minutes spent reviewing past diagnostic tests, lab results, vital sign trends, medical history, medications, all additional paperwork sent by the previous hospital, and ordering medications, examining the the patient and completing documentation. Charges/Coding Visit Charges Inpatient E&M: 79252 Init Hosp L3
[2024-12-24 17:32] LABS: Bedside Glucose 114 mg/dL (74-106)
[2024-12-24 17:34] VITALS: BP 98/57; PULSE 61; RESP 17; TEMP 36.3; O2SAT 97
--- NOTE | 2024-12-24 17:43 | PCM.RU.PYE ---
Admission Information Primary Diagnosis:: cervical canal stenosis with myelopathy and radiculopathy with hx laminectomy and fusion. Status Changes from Prescreening?: No changes Identified Actual Problem List:: Falls, Skin Intergrity, Pain, ALteration in Cmfrt, Bowel, Constipation, Alteration in Sleep, Mobility Impaired, Self Care Deficit and Alteration-Leisure Activ. Potential Problem List:: DVT, Bleeding, Infection, UTI, Aspiration, Falls, Skin Integrity and Depression Risk of Complications DVT: SUDHEER Hose and - (Heparin 5000 units SQ every 8 hours) Bleeding: Monitor Lab Values, Nursing to Teach Precautions for anti-coagulation therapy., Wound, if applicable, to be assessed every shift. and Stroke patients assessed for lethargy or change in status. Infection: Clinical Staff to Monitor for S/S of infection: and S/S of infection include fever, redness, warmth, etc. Urinary Tract Infection: Monitor for frequency, burning, discomfort, or incontinence. and Nursing will obtain urine sample for urinalysis and C&S when ordered. Aspiration: Clinical staff will monitor for coughing, drooling, congestion., Speech will evaluate swallowing and dsyphasia. and Nursing will monitor patient swallowing during meals. Falls: Patient will be evaluated for Fall Precautions and Patient will be placed on Fall Precautions as indicated per protocol. Skin Breakdown: Nursing will assess skin daily using assessment tool. and Nursing will place on Skin Breakdown Precautions as indicated. Pain: Clinical staff will assess patient's pain level per protocol., Medications will be given, if needed, and the pain level reassessed. and Other methods: Massage, distraction, decrease stimulus, etc. used PRN. Plan of Care Patient requires physician specializing in physical medicine and rehab oversight to provide close medical supervision of rehab issues including: Pain Management, Sleep Problems, Bowel and Bladder, Medical and co-morbidity Management, DVT prophylaxis, Rehabilitation Leadership and Coordination of treatment team Patient needs Physical Therapy: For a minimum of 1 hour and At least 5 out of 7 days Patient needs Physical Therapy to improve:: Mobility, Strengthening, Transfers, Stretching, ROM, Endurance, Stairs, Gait and Balance Patient needs Occupational Therapy: For a minimum of 1 hour and At least 5 out of 7 days Patient needs Occupational Therapy to improve ADL's incl.: Eating, Grooming, Bathing, Dressing, Toileting, Toilet transfers, Community Reintegration, Higher functioning activities, Household tasks, Adaptive Equipment, Splinting and Other activities as determined Patient requires 24/7 Rehabilitation Nursing for: Pain Issues, Identifying and preventing risk factors, Monitoring and reporting current medical conditions, Assisting with ambulation, transfer, and all ADL's, Teaching patients about disease process and medications, Family teaching, Providing safe environment, Bowel and Bladder Issues, Skin integrity and Medication Management Patient needs Chief Of Vital Statistics/ Case Management for: Discharge Planning, Arranging Home Equipment or Services and Family Interventions Patient needs Dietary and Nutrition Services for: Adequate Nutrition, Nutritional Supplements and Nutritional Education Goals Goals Patient will remain: free from falls Patient will perform eating at: MOD I level of assist. Patient will perform bed mobility at: MOD I level of assist. Patient will complete transfers from bed to chair at: Standby Assist. Patient will ambulate: - (165 feet with least restrictive device at standby assist on various surfaces) Patient will complete upper body dressing at: - (Supervision) Patient will complete lower body dressing at: - (Supervision with adaptive equipment as needed.) Patient will complete toilet transfer at: - (Supervision) Patient will complete toileting at: - (Supervision) Patient will perform bathing at: - (Upper body bathing at supervision and lower body bathing at supervision with adaptive equipment as needed to increase independence.) Patient will perform Tub/Shower transfer at: - (Supervision using DME as needed.) Patient will complete grooming at: - (Supervision while standing at the sink.) Patient will achieve: - (He will complete 1+1 steps with 1 handrail and least restrictive device at contact-guard assist to allow access to his home entrance.) Patient will have pain level of: of 3 or less Patient's skin will: remain intact Patient will receive: adequate nutrition. Discharge Planning Pt Prognosis for Sig. Practical Improv. w/in Reasonable Time: Good Estimated Length of stay (days): 21 Anticipated D/C Destination: Home with Outpt Therapy Was Preadmission Assessment Accurate?: Yes
[2024-12-24] MEDS: oxyCODONE 5 MG Tablet PO ×2 (17:55→22:27)
[2024-12-24] MEDS: Acetaminophen 500 MG Tablet 1000 MG PO (21:29)
[2024-12-24] MEDS: Gabapentin 300 MG Capsule PO (21:29)
[2024-12-24] MEDS: Atorvastatin Calcium 80 MG Tablet PO (21:29)
[2024-12-24] MEDS: Senna/Docusate Sodium 1 Tablet 2 TABLET PO (21:29)
[2024-12-24] MEDS: Carvedilol 12.5 MG Tablet PO (21:29)
[2024-12-24] MEDS: Heparin Injection (Vial) 5,000 UNIT/ML VIAL 5000 UNIT SC (21:32)
[2024-12-24 22:00] VITALS: PULSE 59; RESP 16; O2SAT 94
[2024-12-24 22:01] LABS: Mucous, Urine 0 SEEN /hpf (<or=2+); Squamous Epithelial Cells - UA 0 SEEN /hpf (0-5)
[2024-12-24 22:07] LABS: Color, Urine Yellow (Yellow); Glucose, Dipstick 1000 mg/dl (Normal); Ketone-Dipstick Negative (Negative); Leukocyte Esterase-Dipstick Negative /ul (Negative); Nitrite-Dipstick Negative (Negative); Occult Blood-Urine 10 /ul (Negative); Protein-Dipstick 15 mg/dl (Negative); Urine Bilirubin Dipstick Negative (Negative); Urine Clarity Clear (Clear); Urine Urobilinogen Normal (Normal)
[2024-12-24 22:13] LABS: Bedside Glucose 131 mg/dL (74-106)
[2024-12-24 22:26] LABS: Bacteria RARE /hpf (None Seen); Red Blood Cells-Urine 0 SEEN /hpf (0-5); White Blood Cells 0-5 SEEN /hpf (0-5)
[2024-12-25] MEDS: oxyCODONE 5 MG Tablet PO ×3 (02:37→21:32)
[2024-12-25] MEDS: Gabapentin 300 MG Capsule PO ×3 (05:07→21:33)
[2024-12-25] MEDS: Heparin Injection (Vial) 5,000 UNIT/ML VIAL 5000 UNIT SC ×3 (05:08→21:36)
[2024-12-25] MEDS: Acetaminophen 500 MG Tablet 1000 MG PO ×3 (05:09→21:35)
[2024-12-25 06:00] VITALS: BP 132/78; PULSE 59; RESP 16; TEMP 36.5; O2SAT 93
[2024-12-25 06:27] LABS: Hematocrit 35.9 % (40-54); Hemoglobin 11.9 g/dL (13.0-16.5); Mean Corp Hgb Conc 33.1 g/dL (32-36); Mean Corpuscular Hgb 32.2 pg (27.0-32.0); Mean Corpuscular Volume 97.3 fL (80-94); Mean Platelet Vol. 11.2 fl (6.2-12.0); Platelet Count 150 K/mm3 (150-450); RBC Distribution Width CV 14.5 % (11.6-14.6); RBC Distribution Width SD 51.7 fl (35.1-43.9); Red Blood Count 3.69 M/mm3 (4.6-6.2); White Blood Count 6.3 K/mm3 (4.4-11.0)
[2024-12-25 06:37] LABS: Magnesium 2.1 mg/dL (1.5-2.2)
[2024-12-25 06:39] LABS: ALB/GLOB Ratio 1.6 RATIO (0.9-2.4); AST(SGOT) 25 U/L (<=37); Alanine Aminotransfer ALT/SGPT 25 U/L (<=46); Albumin, Serum 3.6 g/dL (3.4-4.8); Alkaline Phosphatase 66 U/L (40-129); Anion Gap 10 (5-15); BUN 18 mg/dL (4-19); BUN/Creat Ratio 29.8 RATIO (10-20); Calcium,Total 8.8 mg/dL (7.6-11.0); Carbon Dioxide 27.1 mmol/L (21.0-32.0); Chloride 100 mmol/L (98-108); Creatinine, Serum 0.59 mg/dL (0.70-1.20); EST Glomerular Filtration Rate 108 (>60); Estimated Creatinine Clearance 116.02 ml/min (50-250); Globulin 2.2 g/dL (2.2-4.2); Glucose 114 mg/dL (70-99); Potassium 4.6 mmol/L (3.3-5.1); Protein, Total 5.8 g/dL (5.9-8.4); Sodium Level 137 mmol/L (133-145); Total Bilirubin 0.37 mg/dL (0.00-1.30)
[2024-12-25] MEDS: oxyCODONE 5 MG Tablet 10 MG PO ×2 (06:48→12:46)
[2024-12-25 07:14] LABS: Bedside Glucose 158 mg/dL (74-106)
[2024-12-25] MEDS: Aspirin 81 MG TAB.CHEW PO (08:06)
[2024-12-25] MEDS: metFORMIN (XR) 500 MG Tablet PO ×2 (08:06→18:12)
[2024-12-25] MEDS: Furosemide 20 MG Tablet PO (08:06)
[2024-12-25] MEDS: Amiodarone 200 MG Tablet PO (08:06)
[2024-12-25] MEDS: Empagliflozin 25 MG Tablet PO (08:07)
[2024-12-25] MEDS: Carvedilol 12.5 MG Tablet PO ×2 (08:07→18:12)
[2024-12-25] MEDS: Lisinopril 5 MG Tablet PO (08:07)
[2024-12-25] MEDS: Senna/Docusate Sodium 1 Tablet 2 TABLET PO ×2 (08:07→21:32)
[2024-12-25] MEDS: Insulin Lispro 100 UNIT/ML INSULN.PEN SC ×3 (09:08→21:36)
[2024-12-25 09:51] VITALS: BP 116/75; BP 119/77; BP 98/63; PULSE 59; PULSE 65; PULSE 71
--- NOTE | 2024-12-25 09:57 | PN_ITS ---
Subjective Subjective Afebrile VSS -blood pressure at admission was 98/57 but this morning it was 132/78. Heart rate is ranged from 59-61. Maintaining appropriate oxygen saturation on RA is 93 to 97% Oral intake - FOOD fair to good FLUIDS just got to rehab.......not enough data to make this determination Discussed with nursing - no problems that need addressed Reviewed the THERAPY notes Medication list reviewed. UA negative for infection. Has had an elevated microalbumin/creatinine ratio in the past. The last test was in October 2023 and it was 90.2. He is on an ARB. Lipid panel on 12/17/2024 showed an LDL of 49, triglycerides of 57 and an HDL of 53. Recent TSH was normal at 1.76. Hemoglobin today is 11.9 which is stable. The last hemoglobin from [facility] Was 12.3. White blood cell count is normal and platelets are also normal. BMP is unremarkable. Creatinine is 0.59 which is within his baseline. GFR is 108. Phosphorus, magnesium and calcium are all within normal limits. LFTs are normal. Slept pretty well last night. Tells me pain is better controlled. Denies lightheadedness, cephalgia, sore throat, nausea/vomiting/abdominal pain, dysuria, calf pain, chest pain and palpitations. He states his chest feels congested that he is not really able to get an effective cough. Objective Data Objective Data Vital Signs: Vital Signs Temp Pulse Resp BP Pulse Ox O2 Del Method 97.7 F L 59 L 16 132/78 H 93 Room Air 12/25/24 06:00 12/25/24 06:00 12/25/24 06:00 12/25/24 06:00 12/25/24 06:00 12/25/24 06:00 Oxygen Delivery Method Room Air Weight: 211 lb Body Mass Index (BMI) 25.0 Intake & Output: Intake and Output for Last 24 Hours 12/23/24 12/24/24 12/25/24 23:59 23:59 23:59 Intake Total 690 / 690 Output Total 500 / 500 450 / 450 Balance 190 / 190 -450 / -450 Lab / Micro Data 12/25/24 05:29 12/25/24 05:29 Labs: Laboratory Results - last 24 hr 12/24/24 17:13: POC Glucose 114 H 12/24/24 21:29: POC Glucose 131 H 12/24/24 21:45: Urine Color Yellow, Urine Clarity Clear, Urine pH 7.0, Ur Specific Ages [place] 1.010, Urine Protein 15 H, Urine Glucose (UA) 1000 H, Urine Ketones Negative, Urine Occult Blood 10 H, Urine Nitrite Negative, Urine Bilirubin Negative, Urine Urobilinogen Normal, Ur Leukocyte Esterase Negative, Urine RBC 0 SEEN, Urine WBC 0-5 SEEN, Ur Squamous Epith Cells 0 SEEN, Urine Bacteria RARE, Urine Mucus 0 SEEN 12/25/24 05:16: POC Glucose 158 H 12/25/24 05:29: WBC 6.3, RBC 3.69 L, Hgb 11.9 L, Hct 35.9 L, MCV 97.3 H, MCH 32.2 H, MCHC 33.1, RDW Std Deviation 51.7 H, RDW Coeff of Arnie 14.5, Plt Count 150, MPV 11.2, Sodium 137, Potassium 4.6, Chloride 100, Carbon Dioxide 27.1, Anion Gap 10, BUN 18, Creatinine 0.59 L, Estim Creat Clear Calc 116.02, Est GFR (MDRD) Non-Af 108, BUN/Creatinine Ratio 29.8 H, Glucose 114 H, Calcium 8.8, Phosphorus 3.0, Magnesium 2.1, Total Bilirubin 0.37, AST 25, ALT 25, Alkaline Phosphatase 66, Total Protein 5.8 L, Albumin 3.6, Globulin 2.2, Albumin/Globulin Ratio 1.6 Physical Exam Const alert and oriented x3 Resp normal respiratory effort, no use of accessory muscles and clear to auscultation bilaterally Resp Narrative: Not tachypneic and no conversational dyspnea. No coughing with deep breath. Effort and Inspection: able to speak in complete sentences Cardio regular rate, regular rhythm, no murmurs, no rub and no gallops Cardio Narrative: No ectopy GI normal to inspection, nondistended, normoactive bowel sounds and non-tender GI Narrative: No guarding with palpation. Extremity no clubbing, cyanosis or edema and no calf tenderness Assessment & Plan Assessment/Plan (1) Debility: (2) Cervical stenosis of spinal canal: (3) Myelopathy concurrent with and due to spinal stenosis of cervical region: (4) Radiculopathy due to cervical spondylosis at multiple levels: (5) H/O laminectomy: (6) Acute blood loss anemia: (7) Urine retention: (8) Diabetes mellitus, type II: QUALIFIERS: Diabetes mellitus penitentiary insulin use: without sash maker use Diabetes mellitus complication status: without complication Qualified Code(s): E11.9 - Type 2 diabetes mellitus without complications (9) Hyperlipidemia: QUALIFIERS: Hyperlipidemia type: unspecified Qualified Code(s): E 78.5 - Hyperlipidemia, unspecified (10) Hypertension: QUALIFIERS: Hypertension type: primary hypertension Qualified Code(s): I10 - Essential (primary) hypertension (11) Presence of cardiac resynchronization therapy defibrillator (QUARTZ ORIENTATOR-D): (12) Presence of stent in coronary artery: (13) NSVT (nonsustained ventricular tachycardia): (14) Dilated cardiomyopathy: (15) Bladder cancer: QUALIFIERS: Bladder location: unspecified site Qualified Code(s): C67.9 - Malignant neoplasm of bladder, unspecified PLAN: Plan 1. Continue therapy 2. He has been retaining urine. If he continues to retain urine will insert a Fernandez 3. Start Flomax 0.4 mg daily...... if we have to insert a Fernandez will repeat a voiding trial or after 5 doses of Flomax. Charges/Coding Visit Charges Inpatient E&M: 56704 Subs Hosp L1
[2024-12-25 12:17] LABS: Bedside Glucose 119 mg/dL (74-106)
--- NOTE | 2024-12-25 13:00 | CASEMGMT ---
Social Work SW attempted to complete initial assessment with pt, but pt is too much pain and requested this worker return. Pt confirmed he received pain medication prior to this worker's arrival. Erika Roca DEPUTY CONTROLLER FABRIC MACHINE OPERATOR
[2024-12-25 17:21] LABS: Bedside Glucose 150 mg/dL (74-106)
[2024-12-25 18:00] VITALS: BP 115/58; PULSE 62; RESP 18; TEMP 36.6; O2SAT 94
[2024-12-25] MEDS: Tamsulosin HCl 0.4 MG Capsule PO (18:12)
[2024-12-25] MEDS: Zolpidem Tartrate 5 MG Tablet PO (21:31)
[2024-12-25] MEDS: Atorvastatin Calcium 80 MG Tablet PO (21:33)
[2024-12-25] MEDS: tiZANidine HCl 2 MG Tablet PO (21:33)
[2024-12-25 22:00] VITALS: RESP 16
[2024-12-25 22:28] LABS: Bedside Glucose 187 mg/dL (74-106)
[2024-12-26 06:00] VITALS: BP 120/64; PULSE 61; RESP 16; TEMP 36.6; O2SAT 92
[2024-12-26] MEDS: Heparin Injection (Vial) 5,000 UNIT/ML VIAL 5000 UNIT SC ×3 (06:02→22:03)
[2024-12-26] MEDS: Gabapentin 300 MG Capsule PO ×3 (06:02→22:02)
[2024-12-26] MEDS: Acetaminophen 500 MG Tablet 1000 MG PO ×3 (06:02→22:02)
[2024-12-26 07:03] LABS: Bedside Glucose 115 mg/dL (74-106)
[2024-12-26] MEDS: tiZANidine HCl 2 MG Tablet PO ×3 (07:15→22:21)
[2024-12-26] MEDS: oxyCODONE 5 MG Tablet 10 MG PO ×2 (07:15→11:34)
[2024-12-26] MEDS: Senna/Docusate Sodium 1 Tablet 2 TABLET PO ×2 (09:05→22:02)
[2024-12-26] MEDS: Aspirin 81 MG TAB.CHEW PO (09:05)
[2024-12-26] MEDS: Carvedilol 12.5 MG Tablet PO ×2 (09:05→16:21)
[2024-12-26] MEDS: Furosemide 20 MG Tablet PO (09:05)
[2024-12-26] MEDS: Amiodarone 200 MG Tablet PO (09:05)
[2024-12-26] MEDS: Lisinopril 5 MG Tablet PO (09:06)
[2024-12-26] MEDS: metFORMIN (XR) 500 MG Tablet PO ×2 (09:06→16:21)
[2024-12-26] MEDS: Empagliflozin 25 MG Tablet PO (09:06)
[2024-12-26 10:23] VITALS: O2SAT 92
[2024-12-26 12:14] LABS: Bedside Glucose 115 mg/dL (74-106)
[2024-12-26] MEDS: Tamsulosin HCl 0.4 MG Capsule PO (16:21)
[2024-12-26] MEDS: Insulin Lispro 100 UNIT/ML INSULN.PEN SC (16:28)
[2024-12-26] MEDS: oxyCODONE 5 MG Tablet PO ×2 (16:31→22:10)
--- NOTE | 2024-12-26 16:45 | CHAPLAIN ---
Type of Pastoral Visit _x__ Initial Visit ___ Follow-up Visit ___ On-call Visit ___ General Patient Visit ___ Spiritual Assessment ___ Family Conference ___ Bereavement ___ Rapid Response ___ Code Blue ___ Other (describe below) Pastoral Care Referral From _x__ Patient ___ Family ___ Nurse ___ Physician ___ Job Change Crew Member ___ Photographic Equipment Inspector ___ Other (describe below) Sacrament/Intervention _x__ Active listening ___ Anointing ___ Jehovah'S Witness ___ Bereavement ___ Communion _x__ Katrin exploration ___ _x__ Life review _x__ Prayer ___ Reconciliation ___ Sacrament of Sick _x__ Supportive presence ___ Wedding ___ Other (describe below) Pastoral Comments patient is welcoming and very open to discuss his situation, the debilitating condition he had previously and the risky surgery that took place to correct his paralysis; pt is quite emotional; pt is also worried about his who has cancer and his children who are doing lots of effort to care for everything; pt speaks openly about katrin in God and that this is a call upon him to get closer to [place]; pt has a sister that is very spiritual and very supportive; pt believes that God has done a great work in him already and he is very thankful; pt welcomes prayer; pt would like future visits to come
[2024-12-26 17:10] LABS: Bedside Glucose 166 mg/dL (74-106)
[2024-12-26 17:33] VITALS: BP 115/61; PULSE 60; RESP 17; TEMP 36.6; O2SAT 95
[2024-12-26 22:00] VITALS: PULSE 60; RESP 17
[2024-12-26] MEDS: Atorvastatin Calcium 80 MG Tablet PO (22:02)
[2024-12-26] MEDS: Zolpidem Tartrate 5 MG Tablet PO (22:10)
[2024-12-26 22:23] LABS: Bedside Glucose 110 mg/dL (74-106)
[2024-12-27] MEDS: Heparin Injection (Vial) 5,000 UNIT/ML VIAL 5000 UNIT SC ×3 (05:39→21:45)
[2024-12-27] MEDS: Acetaminophen 500 MG Tablet 1000 MG PO ×3 (05:40→21:47)
[2024-12-27] MEDS: Gabapentin 300 MG Capsule PO ×3 (05:43→21:47)
[2024-12-27 06:00] VITALS: BP 128/69; PULSE 60; RESP 15; TEMP 36.4; O2SAT 95
[2024-12-27] MEDS: oxyCODONE 5 MG Tablet 10 MG PO ×2 (06:57→11:15)
[2024-12-27] MEDS: tiZANidine HCl 2 MG Tablet PO ×3 (06:57→21:48)
[2024-12-27 07:22] LABS: Bedside Glucose 100 mg/dL (74-106)
[2024-12-27] MEDS: metFORMIN (XR) 500 MG Tablet PO ×2 (08:32→16:35)
[2024-12-27] MEDS: Senna/Docusate Sodium 1 Tablet 2 TABLET PO ×2 (08:32→21:47)
[2024-12-27] MEDS: Aspirin 81 MG TAB.CHEW PO (08:33)
[2024-12-27] MEDS: Lisinopril 5 MG Tablet PO (08:33)
[2024-12-27] MEDS: Amiodarone 200 MG Tablet PO (08:33)
[2024-12-27] MEDS: Furosemide 20 MG Tablet PO (08:33)
[2024-12-27] MEDS: Empagliflozin 25 MG Tablet PO (08:33)
[2024-12-27] MEDS: Carvedilol 12.5 MG Tablet PO ×2 (08:34→16:35)
--- NOTE | 2024-12-27 10:50 | PCM.PROGNOTE ---
Subjective Subjective Frank was seen on team rounds today. Frank's Britt participated by phone. All questions were answered to their satisfaction. Afebrile VSS -heart rate has ranged from 59-62. Blood pressure this AM is 98/63.......denies lightheadedness. Will recheck. Maintaining appropriate oxygen saturation on RA-92 to 95%. Oral intake - FOOD good FLUIDS good.......... fluid balance yesterday was -570 and the day prior was -600. Discussed with nursing - no problems that need addressed Reviewed the THERAPY notes Medication list reviewed. He is c/o BL knee pain. Was having problems with knee pain long before recent surgery. Tells me that he was using neoprene sleeves on knees for support. He feels his pain is better controlled. Denies lightheadedness, chest pain, shortness of breath, palpitations, nausea/vomiting/abdominal pain, calf pain. Fernandez catheter was inserted. The urine in Feranndez bag is pale and clear. He still feels congested. Has been unable to cough anything up. No sore throat and no rhinorrhea. Denies sinus pain. He is complaining of pain in his knees and has known degenerative joint disease. Objective Data Objective Data Vital Signs: Vital Signs Temp Pulse Resp BP Pulse Ox O2 Del Method 97.5 F L 60 15 128/69 H 95 Room Air 12/27/24 06:00 12/27/24 06:00 12/27/24 06:00 12/27/24 06:00 12/27/24 06:00 12/27/24 09:12 Oxygen Delivery Method Room Air Weight: 211 lb Body Mass Index (BMI) 25.0 Intake & Output: Intake and Output for Last 24 Hours 12/25/24 12/26/24 12/27/24 23:59 23:59 23:59 Intake Total 1650 / 1650 2500 / 2500 700 / 700 Output Total 2250 / 3050 3070 / 3070 900 / 900 Balance -600 / -1400 -570 / -570 -200 / -200 Lab / Micro Data 12/25/24 05:29 12/25/24 05:29 Labs: Laboratory Results - last 24 hr 12/26/24 11:53: POC Glucose 115 H 12/26/24 16:25: POC Glucose 166 H 12/26/24 21:59: POC Glucose 110 H 12/27/24 07:01: POC Glucose 100 Physical Exam Const alert and oriented x3 Resp normal respiratory effort, no use of accessory muscles and clear to auscultation bilaterally Resp Narrative: Not tachypneic and no conversational dyspnea. No coughing with deep breath. Effort and Inspection: able to speak in complete sentences Cardio regular rate, regular rhythm, no murmurs, no rub and no gallops Cardio Narrative: No ectopy GI normal to inspection, nondistended, normoactive bowel sounds and non-tender GI Narrative: No guarding with palpation. Extremity no clubbing, cyanosis or edema and no calf tenderness Assessment & Plan Assessment/Plan (1) Debility: (2) Cervical stenosis of spinal canal: (3) Myelopathy concurrent with and due to spinal stenosis of cervical region: (4) Radiculopathy due to cervical spondylosis at multiple levels: (5) H/O laminectomy: (6) Acute blood loss anemia: (7) Urine retention: (8) Diabetes mellitus, type II: QUALIFIERS: Diabetes mellitus extermination supervisor insulin use: without fci use Diabetes mellitus complication status: without complication Qualified Code(s): E11.9 - Type 2 diabetes mellitus without complications (9) Hyperlipidemia: QUALIFIERS: Hyperlipidemia type: unspecified Qualified Code(s): E78.5 - Hyperlipidemia, unspecified (10) Hypertension: QUALIFIERS: Hypertension type: primary hypertension Qualified Code(s): I10 - Essential (primary) hypertension (11) Presence of cardiac resynchronization therapy defibrillator (ACCOUNTING ANALYST-D): (12) Presence of stent in coronary artery: (13) NSVT (nonsustained ventricular tachycardia): (14) Dilated cardiomyopathy: (15) Bladder cancer: QUALIFIERS: Bladder location: unspecified site Qualified Code(s): C67.9 - Malignant neoplasm of bladder, unspecified PLAN: Plan 1. Continue therapy 2. Apply arthritis compounded cream twice daily to both knees for pain secondary to degenerative joint disease. He had XRAYS of both knees in October Charges/Coding Visit Charges Inpatient E&M: 97232 Subs Hosp L2
[2024-12-27 11:52] LABS: Bedside Glucose 116 mg/dL (74-106)
--- NOTE | 2024-12-27 12:57 | CASEMGMT ---
Social Work IDT met with patient at bedside and via conference call for Team meeting. Discussed patient's progress in PT/OT/SN. Educated to Medicare approval of 22 days with DC 01/15. Pt's goal is to return home with . was assisting pt prior with back pain. However, currently pt is x1-2 assist. Pt has erie J collar on AAT. SW to assist with DC planning. Will ReTeam weekly. Erika Roca SPA CONCIERGE APPLICATION SUPPORT DEVELOPER
[2024-12-27] MEDS: Tamsulosin HCl 0.4 MG Capsule PO (16:34)
[2024-12-27] MEDS: oxyCODONE 5 MG Tablet PO ×2 (16:39→21:46)
[2024-12-27 17:10] LABS: Bedside Glucose 128 mg/dL (74-106)
[2024-12-27 18:00] VITALS: BP 131/62; PULSE 56; RESP 17; TEMP 36.8; O2SAT 95
[2024-12-27] MEDS: Arthritis Pain Compound 60 CLICK TUBE TOPICAL (21:45)
[2024-12-27] MEDS: Zolpidem Tartrate 5 MG Tablet PO (21:46)
[2024-12-27] MEDS: Atorvastatin Calcium 80 MG Tablet PO (21:48)
[2024-12-27 22:00] VITALS: PULSE 60; RESP 15
[2024-12-27 23:07] LABS: Bedside Glucose 106 mg/dL (74-106)
[2024-12-28] VITALS (9 sets, daily range): BP systolic 124–135; BP diastolic 64–71; PULSE 59–88; RESP 16–24; TEMP 36.4–37.2; O2SAT 88–97; BMI 24.4
[2024-12-28] MEDS: Gabapentin 300 MG Capsule PO ×3 (05:18→20:51)
[2024-12-28] MEDS: Acetaminophen 500 MG Tablet 1000 MG PO ×3 (05:18→20:53)
[2024-12-28] MEDS: Heparin Injection (Vial) 5,000 UNIT/ML VIAL 5000 UNIT SC ×3 (05:18→20:56)
[2024-12-28] MEDS: oxyCODONE 5 MG Tablet 10 MG PO ×2 (06:44→12:19)
[2024-12-28] MEDS: tiZANidine HCl 2 MG Tablet PO ×3 (06:45→20:52)
[2024-12-28 07:32] LABS: Bedside Glucose 103 mg/dL (74-106)
[2024-12-28] MEDS: Amiodarone 200 MG Tablet PO (08:01)
[2024-12-28] MEDS: Aspirin 81 MG TAB.CHEW PO (08:01)
[2024-12-28] MEDS: Senna/Docusate Sodium 1 Tablet 2 TABLET PO ×2 (08:02→20:52)
[2024-12-28] MEDS: Empagliflozin 25 MG Tablet PO (08:02)
[2024-12-28] MEDS: Furosemide 20 MG Tablet PO (08:02)
[2024-12-28] MEDS: metFORMIN (XR) 500 MG Tablet PO (08:02)
[2024-12-28] MEDS: Carvedilol 12.5 MG Tablet PO ×2 (08:02→17:02)
[2024-12-28] MEDS: Lisinopril 5 MG Tablet PO (08:03)
[2024-12-28] MEDS: Arthritis Pain Compound 60 CLICK TUBE TOPICAL ×2 (08:04→21:01)
--- NOTE | 2024-12-28 12:21 | PCM.PROGNOTE ---
Subjective Subjective Afebrile VSS -heart rate over the past 24 hours has ranged from 56-60. Blood pressure is ranged from 128/69 to 135/71. Pulse ox was 93% on room air this a.m. however he is now complaining of feeling short of breath and pulse ox was in the 80s so oxygen was applied. Maintaining appropriate oxygen saturation on RA Oral intake - FOOD good FLUIDS oral intake yesterday was 1900 and he had 2900 out for a fluid balance of -1000 yesterday. Blood sugars are well-controlled with no hypoglycemia Discussed with nursing - no problems that need addressed Reviewed the THERAPY notes Medication list reviewed. Not coughing but, he continues to c/o congestion. Has been using IS. Continue to deny headache, sinus pain, rhinorrhea, sore throat, chest pain, palpitations. Denies orthopnea. Shortness of breath seem to develop acutely around noon today. Urine in the Fernandez tubing is very pale yellow and clear. Objective Data Objective Data Vital Signs: Vital Signs Temp Pulse Resp BP Pulse Ox O2 Del Method 97.6 F L 59 L 16 135/71 H 93 Room Air 12/28/24 06:00 12/28/24 06:00 12/28/24 06:00 12/28/24 06:00 12/28/24 06:00 12/28/24 06:00 Oxygen Delivery Method Room Air Weight: 207 lb 0.225 oz Body Mass Index (BMI) 24.4 Intake & Output: Intake and Output for Last 24 Hours 12/26/24 12/27/24 12/28/24 23:59 23:59 23:59 Intake Total 2500 / 2500 1900 / 1900 1190 / 1190 Output Total 3070 / 3070 2900 / 3025 975 / 975 Balance -570 / -570 -1000 / -1125 215 / 215 Lab / Micro Data 12/25/24 05:29 12/25/24 05:29 Labs: Laboratory Results - last 24 hr 12/27/24 16:35: POC Glucose 128 H 12/27/24 21:43: POC Glucose 106 12/28/24 06:49: POC Glucose 103 Physical Exam Const alert Constitutional Narrative: A little anxious. Resp Resp Narrative: Breath sounds are diminished especially when compared to admission. They are diminished throughout but especially in the bases. He is not tachypneic and he has no conversational dyspnea. Did not cough with deep breaths. No crackles. Has short inspiratory wheeze left anterior chest.......resolved with a couple more deep breaths. Has been on DVT prophylaxis. No accessory muscle use. His fingers are somewhat cool and the pulse ox may not be accurate. He was sitting upright in the when I examined him...No JVD but, this is not reliable due to upright posture. Cardio regular rate, regular rhythm, no rub and no gallops Cardio Narrative: No ectopy. HR is about 60. Denies having the AICD fire. GI normal to inspection, nondistended, normoactive bowel sounds, soft to palpation and non-tender Extremity no calf tenderness General Extremity: Negative for edema Assessment & Plan Assessment/Plan (1) Debility: (2) Cervical stenosis of spinal canal: (3) Myelopathy concurrent with and due to spinal stenosis of cervical region: (4) Radiculopathy due to cervical spondylosis at multiple levels: (5) H/O laminectomy: (6) Acute blood loss anemia: (7) Urine retention: (8) Diabetes mellitus, type II: QUALIFIERS: Diabetes mellitus retirement insulin use: without retirement use Diabetes mellitus complication status: without complication Qualified Code(s): E11.9 - Type 2 diabetes mellitus without complications (9) Presence of cardiac resynchronization therapy defibrillator (ARMORING MACHINE OPERATOR-D): (10) Presence of stent in coronary artery: (11) Dilated cardiomyopathy: (12) Hypoxemia: PLAN: Plan 1. stat PA and lat CXR. 2. CBC with diff follow-up BMP, BNP and troponin series. 3. Obtain an EKG. 4. ABG ordered. 5. He smoked for 43 years in the past but, he denies hx of COPD/asthma. 6. Continues to deny orthopnea. Has been in negative fluid balance. 7. Await the results of the CXR.......if infiltrates will need to order a respiratory panel and a COVID 19 PCR. Charges/Coding Visit Charges Inpatient E&M: 18851 Subs Hosp L2
[2024-12-28 12:31] LABS: Absolute Lymphocyte Count 0.88 X10^3/uL (0.83-4.51); Absolute Neutrophil Count 6.6 X10^3/uL (2.0-7.7); Basophil# 0.04 X10^3/uL; Basophil% 0.5 % (0-1); Eosinophil# 0.15 X10^3/uL; Eosinophils% 1.7 % (0-5); Hematocrit 35.9 % (40-54); Hemoglobin 12.2 g/dL (13.0-16.5); Lymphocyte # 0.88 X10^3/ul (0.83-4.51); Lymphocyte % 10.2 % (19-41); Mean Corpuscular Hgb 31.9 pg (27.0-32.0); Mean Platelet Vol. 10.1 fl (6.2-12.0); Monocyte# 0.88 X10^3/uL; Monocyte% 10.2 % (0-10); NRBC Flagged by Analyzer 0 % (0-5); Neutrophil # 6.64 X10^3/uL (2.7-7.7); Neutrophil % 76.9 % (47-70); Platelet Count 216 K/mm3 (150-450); Red Blood Count 3.82 M/mm3 (4.6-6.2); White Blood Count 8.6 K/mm3 (4.4-11.0)
--- NOTE | 2024-12-28 12:32 | RAD_ITS ---
PROCEDURE: CHEST PA AND LATERAL REASON FOR EXAM: SOB/hypoxemia TECHNIQUE: PA and lateral views of the chest were obtained. COMPARISON: 08/01/2023 and prior FINDINGS: Heart: Similar left chest wall triple lead pacer/defibrillator.. Mediastinum: Trace atherosclerosis in the arch. Lungs/pleura: No focal confluent consolidation. Similar mild interstitial prominence.. No effusion or visible pneumothorax. Small nodule seen 04/11/2020 is not visible. Bones: Partially imaged cervicothoracic spinal fusion hardware. Multilevel spondylosis. Lines and support devices: None. RAD/Chest PA and Lateral IMPRESSION: 1. Similar mild chronic interstitial prominence without definite or visible acu te cardiopulmonary process. 2. Additional description as above. Reading Location: [id number]
[2024-12-28 12:35] LABS: Bedside Glucose 110 mg/dL (74-106)
[2024-12-28] MEDS: Albuterol 2.5 MG/3 ML VIAL.NEB. INHALATION (13:22)
[2024-12-28 13:25] LABS: Allen Test Positive; Base Excess -1 mmol/L (-2 to +2); Bicarbonate 23.2 mmol/L (22-26); Blood Gas Specimen Type ART; Mode Not entered; O2 Delivery Device Cannula; PO2 50 mmHG (75-100); SITE R Radial; SO2 86 % (95-99); Total Carbon Dioxide 24 mmol/L; pCO2 34.8 mmHg (35-45); pH 7.43 (7.35-7.45)
[2024-12-28 13:31] LABS: Anion Gap 15 (5-15); BUN 19 mg/dL (4-19); BUN/Creat Ratio 27.6 RATIO (10-20); Carbon Dioxide 20.5 mmol/L (21.0-32.0); Chloride 100 mmol/L (98-108); Creatinine, Serum 0.68 mg/dL (0.70-1.20); EST Glomerular Filtration Rate 103 (>60); Estimated Creatinine Clearance 116.02 ml/min (50-250); Glucose 115 mg/dL (70-99); Potassium 4.6 mmol/L (3.3-5.1); Pro- Brain NATRIURETIC PEPTIDE 521 pg/mL (<=900); Sodium Level 136 mmol/L (133-145)
--- NOTE | 2024-12-28 14:02 | CT_ITS ---
PROCEDURE: CTA CHEST W/WO CONTRAST REASON FOR EXAM: Hypoxemia. TECHNIQUE: CTA imaging of the chest with intravenous contrast. 3D reconstructions. CONTRAST: 100 mL of Isovue 370. COMPARISON: Comparison is made with prior study dated April 11, 2020. FINDINGS: Hardware: A left-sided dual-chamber pacemaker is seen. Lymph nodes: No mediastinal hilar or axillary lymphadenopathy. Heart: Normal heart size. No pericardial effusion. RV/LV Diameter Ratio: N/A Thoracic Aorta: No thoracic aortic aneurysm or dissection. Pulmonary Vessels: No evidence of acute pulmonary emboli through the major subsegmental branches. Most Proximal Level of Embolus (if embolus present): N/A Lungs and Airways: Increased markings at the lung bases more pronounced at the left lung base suggestive of scarring with the bronchiectasis. Emphysema. There is a 1 cm noncalcified nodule in the posterior medial aspect of the left lower lobe as seen on axial image number 111 this may represent a dilated bronchus with fluid. Tiny nodular density are seen adjacent to this dominant nodule. Three-month follow-up examination is recommended. Pleura: No pleural effusion. No pneumothorax. Upper Abdomen: Dilatation of the proximal abdominal aorta. Bones: Degenerative changes of the thoracic spine. CT/CTA Chest W/WO Contrast IMPRESSION: No evidence of pulmonary embolism. Emphysematous changes with findings suggestive of scarring and bronchiectasis i n the lower lobes more pronounced at the left lung base. Subcentimeter and 1 cm nodular density seen in the posterior medial segment of the left lower lobe. Repeat CT scan of the thorax in 3 months is recommended. One or more dose reduction techniques were used (e.g., Automated exposure contr ol, adjustment of the mA and/or kV according to patient size, use of iterative reconstruction technique). Reading Location: [id number]
[2024-12-28] MEDS: guaiFENesin 1,200 MG Tablet 1200 MG PO ×2 (14:41→20:51)
[2024-12-28] MEDS: Pantoprazole Sodium 40 MG Tablet PO (14:41)
[2024-12-28] MEDS: predniSONE 20 MG Tablet 60 MG PO (14:41)
[2024-12-28 15:15] LABS: Troponin T High Sensitivity 18 ng/L (<=22)
--- NOTE | 2024-12-28 15:28 | NURSING ---
C/O SOB after working with therapy SPO2 87-89% RA, Lungs diminished throughout. Denies CP. Dr. Bobo made aware. Chest x-ray and labs ordered.
[2024-12-28 15:56] LABS: Troponin T High Sens 2 HR 17 ng/L (<=22)
[2024-12-28] MEDS: Tamsulosin HCl 0.4 MG Capsule PO (17:02)
[2024-12-28 17:17] LABS: Bedside Glucose 130 mg/dL (74-106)
[2024-12-28 17:25] LABS: Troponin T High Sens 4 HR 17 ng/L (<=22)
--- NOTE | 2024-12-28 18:26 | NURSING ---
AT 1150 AM THERAPY CALLED THIS NURSE TO ROOM. THERAPY AND PT STATED HE FELT SHORT OF BREATH. ASKED IF PT HAD ANY CHEST PAIN PT STATED NO. OXYGEN CHECKED AND WAS 85% RA. APPLIED 2L OF 02 OXYGEN NOW 86%. UPPED TO 4L AND OXYGEN NOW 89-90%. CALLED RN TO ROOM WHO THEN GOT . NEW LAB ORDERS,CHEST XRAY,EKG,CHEST CTA. RESPIRATORY PANEL AND COVID TEST. RESPIRATORY TO ROOM WHO THEN APPLIED HIGH FLOW TUBING AND OXYGEN UP TO 6L. WILL CONTINUE TO MONITOR. AT 1430 PT STILL AT 6L AT 93%. PT STATED HE DID FEEL A LITTLE BETTER. PT DID FALL A SLEEP FOR A FEW HOURS.
--- NOTE | 2024-12-28 18:50 | NURSING ---
ASKED PT IF HE WOULD LIKE US TO UPDATE HIS EARLIER TODAY. PT STATED NO I WILL TELL HER. DID COME IN AND PT WAS ASKED AGAIN AND PT STATED NO I WILL TELL HER.
[2024-12-28] MEDS: Ipratropium/Albuterol Sulfate 3 ML AMPUL.NEB INHALATION (19:18)
[2024-12-28] MEDS: Atorvastatin Calcium 80 MG Tablet PO (20:51)
[2024-12-28] MEDS: oxyCODONE 5 MG Tablet PO (20:55)
[2024-12-28] MEDS: Insulin Lispro 100 UNIT/ML INSULN.PEN SC (20:59)
[2024-12-28 22:53] LABS: Bedside Glucose 231 mg/dL (74-106)
[2024-12-29] VITALS (8 sets, daily range): BP systolic 130; BP diastolic 64–77; PULSE 55–69; RESP 16–18; TEMP 36.5; O2SAT 93–100
[2024-12-29] MEDS: Gabapentin 300 MG Capsule PO ×3 (05:44→20:45)
[2024-12-29] MEDS: Acetaminophen 500 MG Tablet 1000 MG PO ×3 (05:44→20:45)
[2024-12-29] MEDS: Heparin Injection (Vial) 5,000 UNIT/ML VIAL 5000 UNIT SC ×3 (05:45→20:43)
[2024-12-29 06:39] LABS: Bedside Glucose 113 mg/dL (74-106)
[2024-12-29] MEDS: Ipratropium/Albuterol Sulfate 3 ML AMPUL.NEB INHALATION ×3 (06:41→19:56)
[2024-12-29] MEDS: Aspirin 81 MG TAB.CHEW PO (08:30)
[2024-12-29] MEDS: predniSONE 20 MG Tablet 60 MG PO (08:30)
[2024-12-29] MEDS: Lisinopril 5 MG Tablet PO (08:30)
[2024-12-29] MEDS: guaiFENesin 1,200 MG Tablet 1200 MG PO ×2 (08:30→20:45)
[2024-12-29] MEDS: Carvedilol 12.5 MG Tablet PO ×2 (08:30→17:23)
[2024-12-29] MEDS: Amiodarone 200 MG Tablet PO (08:30)
[2024-12-29] MEDS: Furosemide 20 MG Tablet PO (08:30)
[2024-12-29] MEDS: tiZANidine HCl 2 MG Tablet PO ×3 (08:31→20:48)
[2024-12-29] MEDS: Arthritis Pain Compound 60 CLICK TUBE TOPICAL ×2 (08:31→20:43)
[2024-12-29] MEDS: Empagliflozin 25 MG Tablet PO (08:31)
[2024-12-29] MEDS: Pantoprazole Sodium 40 MG Tablet PO (08:31)
[2024-12-29] MEDS: Senna/Docusate Sodium 1 Tablet 2 TABLET PO ×2 (08:31→20:45)
[2024-12-29] MEDS: oxyCODONE 5 MG Tablet 10 MG PO ×2 (08:34→12:03)
--- NOTE | 2024-12-29 11:02 | PCM.PROGNOTE ---
Subjective Subjective Afebrile VSS - Maintaining appropriate oxygen saturation -he is 96 to 100% today on 4 L nasal cannula. Oral intake - FOOD good FLUIDS B12 1550 in yesterday but had 3775 5 for negative fluid balance of -2225. The blood sugar record was reviewed. Blood sugar last night at bedtime was 231 but fasting today is 113. He is on a sliding scale since he has been placed on prednisone. Discussed with nursing - no problems that need addressed Reviewed the THERAPY notes Medication list reviewed. Respiratory panel was negative. COVID was negative. Troponin x 3 were all normal. CTA was negative for pulmonary emboli. There was increased markings in the lung bases suggestive of scarring and bronchiectasis. Evidence of emphysema. There is a 1 cm noncalcified nodule in the posterior medial aspect of the left lower lobe and there is a tiny nodular density adjacent to the nodule. 3-month follow-up was recommended. There was some dilation of the proximal abdominal aorta. Tells me that he feels better today. He has been using the IS and PAP and has been able to cough up some secretions. Chest is not as tight and he denies SOB at rest today. Pulse ox on RA when I was in the room at rest was 96%. O2 was removed. I reviewed chest CT's dating back to 2019. Has had multiple subcentimeter nodules in both lungs. The nodule in the LLL is now 1 cm with a subcentimeter nodule adjacent to the 1 cm nodule. Will need follow up. Frank and I discussed follow up with pulmonary medicine post DC from rehab for PFT's/COPD and for follow up on the LLL nodule which now measures 1 cm. Objective Data Objective Data Vital Signs: Vital Signs Temp Pulse Resp BP Pulse Ox O2 Del Method O2 Flow Rate 97.7 F L 69 18 130/77 H 96 Nasal Cannula 4 12/29/24 06:00 12/29/24 06:42 12/29/24 06:42 12/29/24 06:00 12/29/24 07:59 12/29/24 06:42 12/29/24 09:35 FiO2 40 12/28/24 20:23 Oxygen Flow Rate (L/min) 4 Oxygen Delivery Method Nasal Cannula Weight: 207 lb 0.225 oz Body Mass Index (BMI) 24.4 Intake & Output: Intake and Output for Last 24 Hours 0312/28/24 12/29/24 23:59 23:59 23:59 Intake Total 1900 / 1900 1550 / 1550 240 / 240 Output Total 2900 / 3025 3775 / 3775 600 / 600 Balance -1000 / -1125 -2225 / -2225 -360 / -360 Lab / Micro Data 12/28/24 12:20 12/28/24 12:20 Labs: Laboratory Results - last 24 hr 12/28/24 12:15: POC Glucose 110 H 12/28/24 12:20: WBC 8.6, RBC 3.82 L, Hgb 12.2 L, Hct 35.9 L, MCV 94.0, MCH 31.9, MCHC 34.0, RDW Std Deviation 48.0 H, RDW Coeff of Arnie 14.0, Plt Count 216, MPV 10.1, Immature Gran % (Auto) 0.500, Neut % (Auto) 76.9 H, Lymph % (Auto) 10.2 L, Tate % (Auto) 10.2 H, Eos % (Auto) 1.7, Baso % (Auto) 0.5, Absolute Neuts (auto) 6.6, Absolute Lymphs (auto) 0.88, Nucleated RBC % 0, Sodium 136, Potassium 4.6, Chloride 100, Carbon Dioxide 20.5 L, Anion Gap 15, BUN 19, Creatinine 0.68 L, Estim Creat Clear Calc 116.02, Est GFR (MDRD) Non-Af 103, BUN/Creatinine Ratio 27.6 H, Glucose 115 H, Calcium 9.0, Troponin T High Sens 18, NT pro BNP II 521 12/28/24 13:43: Troponin T Hi Sens 2 Hr 17 12/28/24 16:51: Troponin T Hi Sens 4Hr 17 12/28/24 16:58: POC Glucose 130 H 12/28/24 20:49: POC Glucose 231 H 12/29/24 05:25: POC Glucose 113 H Micro: Microbiology 12/28/24 15:15 Mucosa - Nasopharyngeal Respiratory Panel (PCR) - Final 12/28/24 15:15 Mucosa - Nose Coronavirus COVID-19 PCR - Final ABG Data ABG results: ABG 12/28/24 13:21 Specimen Type ART Sample Site R Radial pH 7.43 Bicarbonate Actual 23.2 Total CO2 24 Base Excess -1 O2 Saturation 86 L O2 % 4.0 ABG pCO2 34.8 L ABG pO2 50 L Kevin Test Positive O2 Delivery Device Cannula Vent Mode Not entered Radiography Diagnostic Testing: Radiology Impression Chest X-Ray 12/28/24 12:32 IMPRESSION: 1. Similar mild chronic interstitial prominence without definite or visible acute cardiopulmonary process. 2. Additional description as above. Reading Location: [id number] Chest CTA 12/28/24 14:02 IMPRESSION: No evidence of pulmonary embolism. Emphysematous changes with findings suggestive of scarring and bronchiectasis in the lower lobes more pronounced at the left lung base. Subcentimeter and 1 cm nodular density seen in the posterior medial segment of the left lower lobe. Repeat CT scan of the thorax in 3 months is recommended. One or more dose reduction techniques were used (e.g., Automated exposure control, adjustment of the mA and/or kV according to patient size, use of iterative reconstruction technique). Reading Location: [id number] Physical Exam Const alert and oriented x3 Constitutional Narrative: looks more comfortable today. General Appearance: cooperative Resp Resp Narrative: Much better air exchange. Rare wheeze today. No rales appreciated. no conversational dyspnea. Effort and Inspection: Negative for tachypneic, respiratory distress or labored Cardio regular rate and regular rhythm GI normal to inspection, nondistended, normoactive bowel sounds, soft to palpation and non-tender Extremity no calf tenderness General Extremity: Negative for edema Assessment & Plan Assessment/Plan (1) Debility: (2) Cervical stenosis of spinal canal: (3) Myelopathy concurrent with and due to spinal stenosis of cervical region: (4) Radiculopathy due to cervical spondylosis at multiple levels: (5) H/O laminectomy: (6) Acute blood loss anemia: (7) Urine retention: (8) Diabetes mellitus, type II: QUALIFIERS: Diabetes mellitus marine oil terminal superintendent insulin use: without marine oil terminal superintendent use Diabetes mellitus complication status: without complication Qualified Code(s): E11.9 - Type 2 diabetes mellitus without complications (9) Presence of cardiac resynchronization therapy defibrillator (SWEAT BAND SEWER-D): (10) Presence of stent in coronary artery: (11) Dilated cardiomyopathy: (12) Hypoxemia: (13) COPD with acute exacerbation: PLAN: Has never had PFTs. Will have him follow-up with pulmonary medicine for pulmonary function tests and to follow the 1 cm nodule in the left lower lobe. (14) Pulmonary nodules/lesions, multiple: PLAN: Plan 1. Continue therapy 2. No changes to the drug regimen today 3. Continue SSI med dosing. 4. Follow up with pulmonary post DC for COPD/PFT's and follow up on pulmonary nodule. 5. Continue heparin for DVT prophylaxis 6. Voiding trial Tuesday or Tuesday Charges/Coding Visit Charges Inpatient E&M: 78511 Subs Hosp L1
[2024-12-29 11:31] LABS: Bedside Glucose 134 mg/dL (74-106)
[2024-12-29 16:41] LABS: Bedside Glucose 175 mg/dL (74-106)
[2024-12-29] MEDS: Tamsulosin HCl 0.4 MG Capsule PO (17:23)
[2024-12-29] MEDS: Insulin Lispro 100 UNIT/ML INSULN.PEN SC ×2 (17:23→21:00)
[2024-12-29] MEDS: Atorvastatin Calcium 80 MG Tablet PO (20:44)
[2024-12-29 22:48] LABS: Bedside Glucose 244 mg/dL (74-106)
[2024-12-30] MEDS: Heparin Injection (Vial) 5,000 UNIT/ML VIAL 5000 UNIT SC ×3 (05:54→21:13)
[2024-12-30] MEDS: Acetaminophen 500 MG Tablet 1000 MG PO ×3 (05:56→21:11)
[2024-12-30] MEDS: Gabapentin 300 MG Capsule PO ×3 (05:56→21:11)
[2024-12-30 06:00] VITALS: BP 164/65; PULSE 59; RESP 16; TEMP 36.3; O2SAT 94
[2024-12-30] MEDS: Lisinopril 5 MG Tablet PO (06:00)
[2024-12-30 06:47] VITALS: PULSE 62; RESP 16; O2SAT 93
[2024-12-30] MEDS: Ipratropium/Albuterol Sulfate 3 ML AMPUL.NEB INHALATION ×4 (06:47→19:55)
[2024-12-30 07:12] LABS: Bedside Glucose 99 mg/dL (74-106)
[2024-12-30] MEDS: oxyCODONE 5 MG Tablet 10 MG PO ×2 (07:55→12:58)
[2024-12-30] MEDS: Amiodarone 200 MG Tablet PO (07:56)
[2024-12-30] MEDS: Aspirin 81 MG TAB.CHEW PO (07:56)
[2024-12-30] MEDS: Senna/Docusate Sodium 1 Tablet 2 TABLET PO ×2 (07:56→21:11)
[2024-12-30] MEDS: Carvedilol 12.5 MG Tablet PO ×2 (07:56→17:15)
[2024-12-30] MEDS: Arthritis Pain Compound 60 CLICK TUBE TOPICAL ×2 (07:56→21:09)
[2024-12-30] MEDS: tiZANidine HCl 2 MG Tablet PO ×3 (07:56→21:11)
[2024-12-30] MEDS: Furosemide 20 MG Tablet PO (07:56)
[2024-12-30] MEDS: predniSONE 20 MG Tablet 60 MG PO (07:56)
[2024-12-30] MEDS: Pantoprazole Sodium 40 MG Tablet PO (07:56)
[2024-12-30] MEDS: guaiFENesin 1,200 MG Tablet 1200 MG PO ×2 (07:56→21:11)
[2024-12-30] MEDS: Empagliflozin 25 MG Tablet PO (07:57)
[2024-12-30] MEDS: 0.9% Saline Lock 10 ML Syringe IV (07:59)
[2024-12-30 10:55] VITALS: PULSE 64; RESP 18; O2SAT 94
[2024-12-30 11:43] LABS: Bedside Glucose 145 mg/dL (74-106)
[2024-12-30 16:03] VITALS: PULSE 66; RESP 16
[2024-12-30 16:26] LABS: Bedside Glucose 216 mg/dL (74-106)
[2024-12-30] MEDS: Insulin Lispro 100 UNIT/ML INSULN.PEN SC ×2 (17:14→22:34)
[2024-12-30] MEDS: Tamsulosin HCl 0.4 MG Capsule PO (17:15)
[2024-12-30 17:40] VITALS: BP 125/55; PULSE 59; RESP 16; TEMP 36.6; O2SAT 97
[2024-12-30 19:57] VITALS: PULSE 62; RESP 16
[2024-12-30] MEDS: Atorvastatin Calcium 80 MG Tablet PO (21:11)
[2024-12-30] MEDS: oxyCODONE 5 MG Tablet PO (21:15)
[2024-12-30 22:30] LABS: Bedside Glucose 275 mg/dL (74-106)
[2024-12-30] MEDS: Zolpidem Tartrate 5 MG Tablet PO (22:34)
[2024-12-31 05:55] VITALS: BP 106/70; PULSE 56; RESP 18; TEMP 36.4; O2SAT 94
[2024-12-31 06:16] LABS: Bedside Glucose 127 mg/dL (74-106)
[2024-12-31] MEDS: tiZANidine HCl 2 MG Tablet PO ×3 (06:17→21:28)
[2024-12-31] MEDS: oxyCODONE 5 MG Tablet 10 MG PO (06:17)
[2024-12-31] MEDS: Gabapentin 300 MG Capsule PO ×3 (06:17→21:33)
[2024-12-31] MEDS: Acetaminophen 500 MG Tablet 1000 MG PO ×3 (06:17→21:28)
[2024-12-31] MEDS: Heparin Injection (Vial) 5,000 UNIT/ML VIAL 5000 UNIT SC ×3 (06:18→21:27)
[2024-12-31 07:12] VITALS: PULSE 69; RESP 16; O2SAT 94
[2024-12-31] MEDS: Ipratropium/Albuterol Sulfate 3 ML AMPUL.NEB INHALATION ×3 (07:12→19:54)
[2024-12-31] MEDS: Lisinopril 5 MG Tablet PO (08:14)
[2024-12-31] MEDS: predniSONE 20 MG Tablet 60 MG PO (08:14)
[2024-12-31] MEDS: Aspirin 81 MG TAB.CHEW PO (08:14)
[2024-12-31] MEDS: Carvedilol 12.5 MG Tablet PO ×2 (08:15→17:04)
[2024-12-31] MEDS: Pantoprazole Sodium 40 MG Tablet PO (08:15)
[2024-12-31] MEDS: Senna/Docusate Sodium 1 Tablet 2 TABLET PO ×2 (08:15→21:33)
[2024-12-31] MEDS: Furosemide 20 MG Tablet PO (08:15)
[2024-12-31] MEDS: Amiodarone 200 MG Tablet PO (08:15)
[2024-12-31] MEDS: guaiFENesin 1,200 MG Tablet 1200 MG PO ×2 (08:15→21:34)
[2024-12-31] MEDS: Arthritis Pain Compound 60 CLICK TUBE TOPICAL ×2 (08:15→21:27)
[2024-12-31] MEDS: Empagliflozin 25 MG Tablet PO (08:15)
[2024-12-31] MEDS: 0.9% Saline Lock 10 ML Syringe IV (08:22)
--- NOTE | 2024-12-31 08:34 | PCM.PROGNOTE ---
Subjective Subjective Afebrile VSS - Maintaining appropriate oxygen saturation on RA Oral intake - FOOD good FLUIDS good The blood sugar record was reviewed. Blood sugars have increased with the initiation of prednisone for acute exacerbation of COPD. Adequate control using SSI. No hypoglycemia. Discussed with nursing - no problems that need addressed. Voiding trial today. Reviewed the THERAPY notes Medication list reviewed. Frank tells me that he feels good today and breathing is much better. No longer requiring supplemental oxygen. Denies sore throat, shortness of breath, chest pain, palpitations, lightheadedness, calf pain and dysuria. Neck pain is getting better. Objective Data Objective Data Vital Signs: Vital Signs Temp Pulse Resp BP Pulse Ox O2 Del Method O2 Flow Rate 97.5 F L 69 16 106/70 94 Room Air 4 12/31/24 05:55 12/31/24 07:12 12/31/24 07:12 12/31/24 05:55 12/31/24 07:12 12/31/24 07:12 12/29/24 09:35 FiO2 40 12/28/24 20:23 Oxygen Flow Rate (L/min) 4 Oxygen Delivery Method Room Air Weight: 207 lb 0.225 oz Body Mass Index (BMI) 24.4 Intake & Output: Intake and Output for Last 24 Hours 12/29/24 12/31/24 12/31/24 23:59 00:59 23:59 Intake Total 1840 / 2340 3440 / 3790 750 / 750 Output Total 1975 / 2675 2550 / 3200 1375 / 1375 Balance -135 / -335 890 / 590 -625 / -625 Lab / Micro Data 12/28/24 12:20 12/28/24 12:20 Labs: Laboratory Results - last 24 hr 12/30/24 11:25: POC Glucose 145 H 12/30/24 15:57: POC Glucose 216 H 12/30/24 22:12: POC Glucose 275 H 12/31/24 04:36: POC Glucose 127 H Micro: Microbiology 12/28/24 15:15 Mucosa - Nasopharyngeal Respiratory Panel (PCR) - Final 12/28/24 15:15 Mucosa - Nose Coronavirus COVID-19 PCR - Final Physical Exam Const alert, oriented x3 and no apparent distress General Appearance: cooperative Resp clear to auscultation bilaterally Resp Narrative: No conversational dyspnea. Denies feeling congested. Better air exchange. Effort and Inspection: Negative for tachypneic Cardio regular rate, regular rhythm and no gallops Cardio Narrative: occasional ectopic. GI normal to inspection, nondistended, normoactive bowel sounds, soft to palpation and non-tender Extremity no calf tenderness General Extremity: Negative for edema Skin Wound Narrative: Incision is intact with no erythema, no dehiscence and no DC. Psych affect normal Assessment & Plan Assessment/Plan (1) Debility: (2) Cervical stenosis of spinal canal: (3) Myelopathy concurrent with and due to spinal stenosis of cervical region: (4) Radiculopathy due to cervical spondylosis at multiple levels: (5) H/O laminectomy: (6) Acute blood loss anemia: (7) Urine retention: (8) Diabetes mellitus, type II: QUALIFIERS: Diabetes mellitus termination clerk insulin use: without termination clerk use Diabetes mellitus complication status: without complication Qualified Code(s): E11.9 - Type 2 diabetes mellitus without complications (9) Presence of cardiac resynchronization therapy defibrillator (LENS GAUGER-D): (10) Presence of stent in coronary artery: (11) Dilated cardiomyopathy: (12) Hypoxemia: (13) COPD with acute exacerbation: PLAN: Has never had PFTs. Will have him follow-up with pulmonary medicine for pulmonary function tests and to follow the 1 cm nodule in the left lower lobe. (14) Pulmonary nodules/lesions, multiple: PLAN: Plan 1. Continue therapy 2. Change the scheduled oxycodone to 10 mg once daily at 0700 and change as needed oxycodone to 5 mg every 4 hours as needed pain 4-10. 3. Change prednisone to 20 mg daily x 3 days and then decrease to 10 mg daily x 3 days then discontinue and start inhalers. 4. Change to DuoNeb to every 6 hours while awake and continue as needed albuterol. 5. Follow up with pulmonAry medicine at [place] for suspected COPD/PFT's and for pulmonary nodules. Charges/Coding Visit Charges Inpatient E&M: 70734 Subs Hosp L1
[2024-12-31] MEDS: Insulin Lispro 100 UNIT/ML INSULN.PEN SC ×3 (12:01→21:44)
[2024-12-31 12:17] LABS: Bedside Glucose 155 mg/dL (74-106)
[2024-12-31 14:18] VITALS: PULSE 63; RESP 16; O2SAT 98
[2024-12-31] MEDS: Tamsulosin HCl 0.4 MG Capsule PO (17:04)
[2024-12-31 17:28] LABS: Bedside Glucose 196 mg/dL (74-106)
[2024-12-31 18:00] VITALS: BP 117/62; PULSE 66; RESP 18; TEMP 35.7; O2SAT 96
[2024-12-31 19:54] VITALS: PULSE 60; RESP 18
[2024-12-31] MEDS: Atorvastatin Calcium 80 MG Tablet PO (21:27)
[2024-12-31 21:35] VITALS: PULSE 66; RESP 18; O2SAT 96
[2024-12-31] MEDS: oxyCODONE 5 MG Tablet PO (21:41)
[2024-12-31 22:15] LABS: Bedside Glucose 322 mg/dL (74-106)
[2024-12-31] MEDS: Zolpidem Tartrate 5 MG Tablet PO (22:54)
--- NOTE | 2024-12-31 23:06 | CPS ---
[1954] Post-assessment not complete due to ER work flow.
[2025-01-01] MEDS: Heparin Injection (Vial) 5,000 UNIT/ML VIAL 5000 UNIT SC (05:49)
[2025-01-01] MEDS: Acetaminophen 500 MG Tablet 1000 MG PO ×3 (05:50→21:53)
[2025-01-01] MEDS: Gabapentin 300 MG Capsule PO ×3 (05:52→21:52)
[2025-01-01 06:00] VITALS: BP 145/80; PULSE 58; RESP 15; TEMP 36.4; O2SAT 93
[2025-01-01] MEDS: oxyCODONE 5 MG Tablet 10 MG PO (06:12)
[2025-01-01] MEDS: tiZANidine HCl 2 MG Tablet PO ×3 (06:12→21:52)
[2025-01-01 07:59] LABS: Bedside Glucose 126 mg/dL (74-106)
--- NOTE | 2025-01-01 09:00 | PCM.PROGNOTE ---
Subjective Subjective Afebrile VSS - Maintaining appropriate oxygen saturation on RA-93 to 98% Oral intake - FOOD good FLUIDS good Discussed with nursing - continues to retain urine. The 2 postvoid residual since the Fernandez was discontinued or 600 and 364. Reviewed the THERAPY notes Medication list reviewed. He is distraught and tearful over the urine retention. We discussed the retention may be due to neurogenic bladder due to severe cervical canal stenosis. We made a plan to reinsert the Fernandez using a urojet and increasing the Flomax to 0.8 mg. After 5 doses of 0.8 mg will repeat a voiding trial and if fails the second voiding trial he will go home with a catheter and have to follow up with urology. He is having insomnia........I suspect due to the high dose steroids for acute exacerbation of COPD. Denies SOB. Rare cough now. No orthopnea and no CP or palpitations. Denies lightheadedness. He tells me that he is getting more control over the R leg and he feels it is getting stronger. Objective Data Objective Data Vital Signs: Vital Signs Temp Pulse Resp BP Pulse Ox O2 Del Method O2 Flow Rate 97.6 F L 58 L 15 145/80 H 93 Room Air 4 01/01/25 06:00 01/01/25 06:00 01/01/25 06:00 01/01/25 06:00 01/01/25 06:00 01/01/25 06:00 12/29/24 09:35 FiO2 40 12/28/24 20:23 Oxygen Flow Rate (L/min) 4 Oxygen Delivery Method Room Air Weight: 207 lb 0.225 oz Body Mass Index (BMI) 24.4 Intake & Output: Intake and Output for Last 24 Hours 12/31/24 12/31/24 01/01/25 00:59 23:59 23:59 Intake Total 3440 / 3790 2210 / 2210 1350 / 1350 Output Total 2550 / 3200 3275 / 3625 1450 / 1450 Balance 890 / 590 -1065 / -1415 -100 / -100 Lab / Micro Data 12/28/24 12:20 12/28/24 12:20 Labs: Laboratory Results - last 24 hr 12/31/24 12:00: POC Glucose 155 H 12/31/24 17:06: POC Glucose 196 H 12/31/24 21:40: POC Glucose 322 H 01/01/25 06:00: POC Glucose 126 H Micro: Microbiology 12/28/24 15:15 Mucosa - Nasopharyngeal Respiratory Panel (PCR) - Final 12/28/24 15:15 Mucosa - Nose Coronavirus COVID-19 PCR - Final Physical Exam Const alert Constitutional Narrative: upset and tearful about urine retention. Resp clear to auscultation bilaterally Resp Narrative: No conversational dyspnea Effort and Inspection: Negative for tachypneic or respiratory distress Auscultation: diminished lung sounds Cardio regular rate, regular rhythm and no gallops Cardio Narrative: No ectopy GI normal to inspection, nondistended, normoactive bowel sounds, soft to palpation and non-tender Extremity no calf tenderness General Extremity: Negative for edema Skin Wound Narrative: Will examine the incision later today when nursing changes the dressing. Psych Psych Narrative: anxious and emotional today. Assessment & Plan Assessment/Plan (1) Debility: (2) Cervical stenosis of spinal canal: (3) Myelopathy concurrent with and due to spinal stenosis of cervical region: (4) Radiculopathy due to cervical spondylosis at multiple levels: (5) H/O laminectomy: (6) Acute blood loss anemia: (7) Urine retention: PLAN: Possibly due to neurogenic bladder. 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 PLAN: Plan 1. Continue therapy 2. Increase the Flomax to 0.8 mg daily 3. Reinsert the Fernandez catheter with a Uro-Jet 4. Continue to taper prednisone 6. Continue aerosols for 1-2 more days and then DC duoneb, add a long acting inhaler and continue Albuterol aerosols PRN. 7. Continue sliding scale insulin Charges/Coding Visit Charges Inpatient E&M: 79249 Subs Hosp L1
[2025-01-01] MEDS: Carvedilol 12.5 MG Tablet PO ×2 (09:13→16:44)
[2025-01-01] MEDS: Amiodarone 200 MG Tablet PO (09:13)
[2025-01-01] MEDS: Aspirin 81 MG TAB.CHEW PO (09:13)
[2025-01-01] MEDS: predniSONE 20 MG Tablet PO (09:14)
[2025-01-01] MEDS: Pantoprazole Sodium 40 MG Tablet PO (09:14)
[2025-01-01] MEDS: Furosemide 20 MG Tablet PO (09:14)
[2025-01-01] MEDS: guaiFENesin 1,200 MG Tablet 1200 MG PO ×2 (09:14→21:53)
[2025-01-01] MEDS: Empagliflozin 25 MG Tablet PO (09:14)
[2025-01-01] MEDS: Lisinopril 5 MG Tablet PO (09:15)
[2025-01-01] MEDS: Senna/Docusate Sodium 1 Tablet 2 TABLET PO ×2 (09:15→21:53)
[2025-01-01] MEDS: Arthritis Pain Compound 60 CLICK TUBE TOPICAL ×2 (09:16→21:54)
[2025-01-01 10:00] VITALS: PULSE 71; RESP 18; O2SAT 97
[2025-01-01] MEDS: Insulin Lispro 100 UNIT/ML INSULN.PEN SC ×3 (12:17→21:54)
[2025-01-01 12:39] LABS: Bedside Glucose 151 mg/dL (74-106)
[2025-01-01] MEDS: Ipratropium/Albuterol Sulfate 3 ML AMPUL.NEB INHALATION ×2 (13:36→19:32)
[2025-01-01 13:38] VITALS: PULSE 64; RESP 16
[2025-01-01] MEDS: Lidocaine Jelly 2% 20 ML Syringe (URO-JET) 1 APPLIC TOPICAL (14:40)
[2025-01-01 16:40] LABS: Bedside Glucose 186 mg/dL (74-106)
[2025-01-01] MEDS: Tamsulosin HCl 0.4 MG Capsule 0.8 MG PO (16:44)
[2025-01-01] MEDS: oxyCODONE 5 MG Tablet PO ×2 (16:48→21:52)
[2025-01-01 18:00] VITALS: BP 127/73; PULSE 61; RESP 18; TEMP 36.5; O2SAT 95
[2025-01-01 19:32] VITALS: PULSE 67; RESP 18
--- NOTE | 2025-01-01 20:38 | CPS ---
[1932] Post-assessment not done with pt. due to ER work flow. RN agreeable to take pt. on tx.
[2025-01-01] MEDS: Zolpidem Tartrate 5 MG Tablet 10 MG PO (21:52)
[2025-01-01] MEDS: Atorvastatin Calcium 80 MG Tablet PO (21:53)
[2025-01-01 22:00] VITALS: PULSE 61; RESP 17; O2SAT 95
[2025-01-01 22:46] LABS: Bedside Glucose 185 mg/dL (74-106)
[2025-01-02] MEDS: Enoxaparin 40 MG/0.4 ML Syringe SC (05:27)
[2025-01-02] MEDS: Acetaminophen 500 MG Tablet 1000 MG PO ×3 (05:27→21:39)
[2025-01-02] MEDS: Gabapentin 300 MG Capsule PO ×3 (05:28→21:39)
[2025-01-02 06:00] VITALS: BP 140/77; PULSE 62; RESP 16; TEMP 36.4; O2SAT 95
[2025-01-02] MEDS: tiZANidine HCl 2 MG Tablet PO ×3 (06:25→21:39)
[2025-01-02] MEDS: oxyCODONE 5 MG Tablet 10 MG PO (06:25)
[2025-01-02 06:48] LABS: Bedside Glucose 123 mg/dL (74-106)
[2025-01-02 07:43] VITALS: RESP 16
[2025-01-02] MEDS: Ipratropium/Albuterol Sulfate 3 ML AMPUL.NEB INHALATION (07:43)
[2025-01-02] MEDS: predniSONE 20 MG Tablet PO (08:05)
[2025-01-02] MEDS: Aspirin 81 MG TAB.CHEW PO (08:05)
[2025-01-02] MEDS: Amiodarone 200 MG Tablet PO (08:05)
[2025-01-02] MEDS: Furosemide 20 MG Tablet PO (08:05)
[2025-01-02] MEDS: guaiFENesin 1,200 MG Tablet 1200 MG PO ×2 (08:05→21:39)
[2025-01-02] MEDS: Carvedilol 12.5 MG Tablet PO ×2 (08:05→16:55)
[2025-01-02] MEDS: Pantoprazole Sodium 40 MG Tablet PO (08:06)
[2025-01-02] MEDS: Lisinopril 5 MG Tablet PO (08:06)
[2025-01-02] MEDS: Empagliflozin 25 MG Tablet PO (08:06)
[2025-01-02] MEDS: Arthritis Pain Compound 60 CLICK TUBE TOPICAL ×2 (08:07→21:36)
[2025-01-02] MEDS: Senna/Docusate Sodium 1 Tablet 2 TABLET PO ×2 (08:07→21:38)
[2025-01-02] MEDS: 0.9% Saline Lock 10 ML Syringe IV (08:11)
[2025-01-02] MEDS: Insulin Lispro 100 UNIT/ML INSULN.PEN SC ×2 (12:13→21:43)
[2025-01-02 12:22] LABS: Bedside Glucose 162 mg/dL (74-106)
[2025-01-02] MEDS: Tamsulosin HCl 0.4 MG Capsule 0.8 MG PO (16:55)
[2025-01-02 17:36] LABS: Bedside Glucose 149 mg/dL (74-106)
[2025-01-02 18:00] VITALS: BP 135/75; PULSE 57; RESP 16; TEMP 35.9; O2SAT 96
[2025-01-02] MEDS: Atorvastatin Calcium 80 MG Tablet PO (21:39)
[2025-01-02] MEDS: oxyCODONE 5 MG Tablet PO (21:39)
[2025-01-02] MEDS: Zolpidem Tartrate 5 MG Tablet 10 MG PO (22:01)
[2025-01-02 22:12] LABS: Bedside Glucose 195 mg/dL (74-106)
[2025-01-03] VITALS (20 sets, daily range): BP systolic 70–133; BP diastolic 39–77; PULSE 50–90; RESP 16–26; TEMP 36.2–36.6; O2SAT 79–97
--- NOTE | 2025-01-03 04:43 | NURSING ---
Pt sitting up in chair, called out stating he felt lightheaded, in to assess pt, sitting up in chair tachypneic, diaphoretic, BP 70/39, POX on room air 79% placed pt on oxygen 4l per NC and CURER FOAM RUBBER called.
--- NOTE | 2025-01-03 04:44 | NURSING ---
Pt up in chair, called out c/o feeling lightheaded, pt very pale, diaphoretic, states he is seeing stars and feels like he might pass out. BP 70/39 and POX 79% on room air, BELLY ROLLER called.
--- NOTE | 2025-01-03 04:45 | NURSING ---
WEATHERIZATION ADMINISTRATOR team responded to Dr.DeLorenzo yang and RT in to assess pt at this time. New orders for IVF, labs, CXR and ABG stat. Pt placed on NRB mask at 15L per RT. New order for Albumin. Pharmacy called to verify stat med orders.
--- NOTE | 2025-01-03 04:52 | EKG12_ITS ---
Test Reason : rapid response Blood Pressure : */* mmHG Vent. Rate : 75 BPM Atrial Rate : 48 BPM P-R Int : 128 ms QRS Dur : 176 ms QT Int : 464 ms P-R-T Axes : 97 257 64 degrees QTcB Int : 518 ms Atrial-sensed ventricular-paced rhythm with frequent Premature ventricular complexes Biventricular pacemaker detected Abnormal ECG When compared with ECG of 28-Dec-2024 13:09, Vent. rate has increased by 6 bpm Confirmed by GREGORY MOREAU, MAURA ([id number]), material expeditor WILFREDO PASCUAL ([id number]) on 01/07/2025 11:44:08 AM Referred By: Tabitha Bobo Confirmed By: MAURA JENKINS MD
[2025-01-03 04:59] LABS: Bedside Glucose 129 mg/dL (74-106)
--- NOTE | 2025-01-03 05:00 | NURSING ---
Pt moved over to bed x4 assist. O2 remains at 15L per NRB mask. Pt states he is starting to feel better. remains in room.
[2025-01-03 05:14] LABS: Allen Test Positive; Base Excess 1 mmol/L (-2 to +2); Blood Gas Specimen Type ART; Mode Not entered; O2 Delivery Device NRB; PO2 71 mmHG (75-100); SITE L Radial; SO2 96 % (95-99); Total Carbon Dioxide 25 mmol/L; pCO2 31.1 mmHg (35-45)
--- NOTE | 2025-01-03 05:20 | RAD_ITS ---
PROCEDURE: CHEST 1 VIEW (PORTABLE) 01/03/2025 REASON FOR EXAM: SOB TECHNIQUE: Frontal view of the chest. COMPARISON: Chest x-ray dated 12/28/2024. FINDINGS: Since prior examination, the patient has undergone cervical spine decompression procedure. Surgical hardware and midline sola are partially visualized. Pacemaker/ICD device again seen overlying the left chest. The heart is normal in size. Increasing hazy infiltrates seen at the right lung base. This may suggest atelectasis or pneumonia. Follow-up to clearing is recommended. RAD/Chest 1 View (Portable) IMPRESSION: Increasing right basilar infiltrate. This may represent increasing atelectasis or pneumonia. Follow-up to clearing is recommended. Postsurgical changes seen within the cervical spine. Reading Location: [id number]
[2025-01-03] MEDS: Albumin Human 25% (100 mL) 25 GM/100 ML BAG IV (05:29)
[2025-01-03 05:34] LABS: Absolute Lymphocyte Count 1.15 X10^3/uL (0.83-4.51); Basophil# 0.04 X10^3/uL; Basophil% 0.2 % (0-1); Eosinophil# 0.24 X10^3/uL; Eosinophils% 1.4 % (0-5); Hematocrit 36.8 % (40-54); Hemoglobin 12.1 g/dL (13.0-16.5); Lymphocyte # 1.15 X10^3/ul (0.83-4.51); Lymphocyte % 6.9 % (19-41); Mean Corp Hgb Conc 32.9 g/dL (32-36); Mean Corpuscular Hgb 31.7 pg (27.0-32.0); Mean Corpuscular Volume 96.3 fL (80-94); Mean Platelet Vol. 9.4 fl (6.2-12.0); Monocyte# 1.14 X10^3/uL; Monocyte% 6.8 % (0-10); NRBC Flagged by Analyzer 0 % (0-5); Neutrophil # 14.01 X10^3/uL (2.7-7.7); Neutrophil % 84.2 % (47-70); Platelet Count 320 K/mm3 (150-450); RBC Distribution Width CV 14.6 % (11.6-14.6); RBC Distribution Width SD 51.4 fl (35.1-43.9); Red Blood Count 3.82 M/mm3 (4.6-6.2); White Blood Count 16.7 K/mm3 (4.4-11.0)
[2025-01-03 06:04] LABS: ALB/GLOB Ratio 1.3 RATIO (0.9-2.4); AST(SGOT) 15 U/L (<=37); Alanine Aminotransfer ALT/SGPT 29 U/L (<=46); Albumin, Serum 3.5 g/dL (3.4-4.8); Alkaline Phosphatase 70 U/L (40-129); Anion Gap 13 (5-15); BUN 21 mg/dL (4-19); BUN/Creat Ratio 31.9 RATIO (10-20); Carbon Dioxide 23.1 mmol/L (21.0-32.0); Chloride 101 mmol/L (98-108); Creatinine, Serum 0.67 mg/dL (0.70-1.20); EST Glomerular Filtration Rate 104 (>60); Estimated Creatinine Clearance 116.02 ml/min (50-250); Globulin 2.7 g/dL (2.2-4.2); Glucose 132 mg/dL (70-99); Magnesium 1.9 mg/dL (1.5-2.2); Phosphorus 2.9 mg/dL (2.7-4.5); Potassium 3.8 mmol/L (3.3-5.1); Protein, Total 6.3 g/dL (5.9-8.4); Sodium Level 137 mmol/L (133-145); Total Bilirubin 0.34 mg/dL (0.00-1.30); Troponin T High Sensitivity 17 ng/L (<=22)
[2025-01-03] MEDS: oxyCODONE 5 MG Tablet 10 MG PO (06:09)
[2025-01-03] MEDS: Piperacil/Tazobactam 3.375 GM in 0.9% Normal Saline (50mL MB+) 50 ML IV ×3 (06:11→21:34)
--- NOTE | 2025-01-03 06:12 | PCM.HOSP.N ---
Hospitalist Note Rapid response was called overhead at approximately 5:30 AM with patient having hypotension and dyspnea. He was noted to have coarse breath sounds over his entire Right lung field with tachypnea in the ~25 bpm range. ABG showed evidence of hyperventilation with pH of 7.50 with a low pCO2 31.1 mmHg. Initially he was also notably hypotensive in the ~70 mmHg systolic range so he was immediately bolused with normal saline and then this was switched to IV albumin because of his history of CHF. His previous imaging was reviewed with CT scan done on December 28, 2024 showing bronchiectasis and evidence of emphysema. His chest x-ray today shows evidence of Right-sided pneumonia with atelectasis likely due to hyperal stasis with patient approximately 2 weeks postoperative from C-spine surgery. Patient was therefore treated with IV Zosyn and IV Solu-Medrol. His blood pressure normalized as well as his respiratory rate. He did complain of pain in his hips and neck so he was given 1 dose of IV ketorolac in addition to his as needed oral oxycodone. salesperson furs was updated with plan. Results of imaging and laboratory tests listed below. RUN DATE: 01/03/25 [facility], DEPARTMENT OF LABORATORIES PAGE 1 RUN TIME: 616 Specimen Inquiry [address] [facility] [address], [place], [address] PATIENT: SHEEBA ZIMMER LOC: [facility] #: [id number] : 1960 AGE/SX: 64/M FACILITY: [facility] ROOM: [facility] RE12/24/[address]: Dr. Tabitha Hernández STATUS:ADM IN ED: 1 DIS: ~ SPEC #: [id number] WILFRIDO: 01/03/25 STATUS: COMP REQ #: [id number] RECD: 01/03/[address]: Dr. Rangel Garcia, DO ENTERED: 01/03/25-050 [facility] DR: Dr. Tabitha Bobo DO Dr. Reagan Soto MD ~ Test Result Flag Reference Range CBCD WBC 16.7 H 4.4-11.0 K/mm3 RBC 3.82 L 4.6-6.2 M/mm3 HGB 12.1 L 13.0-16.5 g/dL HCT 36.8 L 40-54 % MCV 96.3 H 80-94 fL MCH 31.7 27.0-32.0 pg MCHC 32.9 32-36 g/dL RDW CV 14.6 11.6-14.6 % RDW SD 51.4 H 35.1-43.9 fl PLT 320 150-450 K/mm3 MPV 9.4 6.2-12.0 fl NEUT% 84.2 H 47-70 % LY% 6.9 L 19-41 % MONO% 6.8 0-10 % EO% 1.4 0-5 % BASO% 0.2 0-1 % IG% 0.500 0.0-0.9 % IG% - Immature Granulocytes (promyelocytes, myelocytes and metamyelocytes) > 1% indicates that a LEFT SHIFT is Present. Absolute Neut 14.0 H 2.0-7.7 X10^3/uL Absolute Lymph 1.15 0.83-4.51 X10^3/uL NUCLEATED RBC 0 0-5 % RUN DATE: 01/03/25 [facility], DEPARTMENT OF LABORATORIES PAGE 1 RUN TIME: 06 Specimen Inquiry [address] [facility] [address], [place], [address] PATIENT: SHEEBA ZIMMER LOC: [facility] #: [id number] : 1960 AGE/SX: 64/M FACILITY: [facility] ROOM: [facility] RE12/24/[address]: Dr. Tabitha Hernández STATUS:ADM IN ED: 1 DIS: ~ SPEC #: [id number] WILFRIDO: 01/03/25 STATUS: COMP REQ #: [id number] RECD: 01/03/[address]: Dr. Tabitha Bobo, DO ENTERED: 01/03/[address]: Dr. Reagan Soto MD ~ Test Result Flag Reference Range IBG Blood Gas Type ART SITE L Radial BENJI TEST Positive Mode Not entered O2 Delivery Dev NRB FI02 100.0 pH 7.50 H 7.35-7.45 pCO2 31.1 L 35-45 mmHg PO2 71 L 75-100 mmHG HCO3 24.0 22-26 mmol/L BE 1 -2 to +2 mmol/L TOTAL CO2 25 mmol/L SO2 96 95-99 % RUN DATE: 01/03/25 [facility], DEPARTMENT OF LABORATORIES PAGE 1 RUN TIME: 617 Specimen Inquiry [address], [place], [address] PATIENT: SHEEBA ZIMMER LOC: U #: [id number] : 1960 AGE/SX: 64/M FACILITY: [facility] ROOM: [facility] RE12/24/[address]: Dr. Tabitha Hernández STATUS:ADM IN ED: 1 DIS: ~ SPEC #: [id number] WILFRIDO: 01/03/25 STATUS: COMP REQ #: [id number] RECD: 01/03/25-[address]: Dr. Rangel Garcia, DO ENTERED: 01/03/25-[address]: Dr. Tabitha Bobo, DO Dr. Reagan Soto MD ~ Test Result Flag Reference Range COMP METABOLIC GLU 132 H 70-99 mg/dL BUN 21 H 4-19 mg/dL CREAT,SERUM 0.67 L 0.70-1.20 mg/dL eGFR 104 >60 mL/min/1.73m2 CKD-EPI Creatinine Equation (2020) ECRCL 116.02 50-250 ml/min BUN/CRE 31.9 H 10-20 RATIO T PROT 6.3 5.9-8.4 g/dL ALB 3.5 3.4-4.8 g/dL GLOB 2.7 2.2-4.2 g/dL A/G 1.3 0.9-2.4 RATIO Calcium 9.0 7.6-11.0 mg/dL PHOS 2.9 2.7-4.5 mg/dL Trop T High Sen 17 <=22 ng/L AST 15 <=37 U/L ALK PHOS 70 40-129 U/L ALT 29 <=46 U/L T BILI 0.34 0.00-1.30 mg/dL MG 1.9 1.5-2.2 mg/dL NA 137 133-145 mmol/L Potassium 3.8 3.3-5.1 mmol/L CL 101 98-108 mmol/L CO2 23.1 21.0-32.0 mmol/L GAP 13 5-15 [facility] Imaging Services [address] [place] [address] Chest 1 View (Portable) MR#: [id number] Acct: [id number] Name: SHEEBA ZIMMER Rep #: [id number] : 1960 M 64 From: Sascha Caraballo MD PCP: Dr. Reagan Soto MD Status: ADM IN Study: Chest 1 View (Portable) Date of Exam: 01/03/25 Exam# [id number] Ordering Dr: Rangel Garcia DO PROCEDURE: CHEST 1 VIEW (PORTABLE) 01/03/2025 REASON FOR EXAM: SOB TECHNIQUE: Frontal view of the chest. COMPARISON: Chest x-ray dated 12/28/2024. FINDINGS: Since prior examination, the patient has undergone cervical spine decompression procedure. Surgical hardware and midline sola are partially visualized. Pacemaker/ICD device again seen overlying the left chest. The heart is normal in size. Increasing hazy infiltrates seen at the right lung base. This may suggest atelectasis or pneumonia. Follow-up to clearing is recommended. RAD/Chest 1 View (Portable) IMPRESSION: Increasing right basilar infiltrate. This may represent increasing atelectasis or pneumonia. Follow-up to clearing is recommended. Postsurgical changes seen within the cervical spine. Reading Location: [id number] CC: Dr. Rangel Garcia DO; Dr. Reagan Soto MD ~ Magazine Designer: Signed
[2025-01-03] MEDS: Ketorolac 15 MG/ML Vial IV (06:17)
[2025-01-03] MEDS: Gabapentin 300 MG Capsule PO ×3 (06:28→21:11)
[2025-01-03] MEDS: Enoxaparin 40 MG/0.4 ML Syringe SC (06:29)
[2025-01-03] MEDS: tiZANidine HCl 2 MG Tablet PO ×3 (06:29→21:12)
[2025-01-03] MEDS: Acetaminophen 500 MG Tablet 1000 MG PO ×3 (06:29→21:11)
--- NOTE | 2025-01-03 06:50 | NURSING ---
Pt sitting up in bed, states he is feeling much better. RT in to do breathing treatment. Please see vitals and ASSEMBLER TRUCK TRAILER sheet.
[2025-01-03] MEDS: Ipratropium/Albuterol Sulfate 3 ML AMPUL.NEB INHALATION ×3 (06:55→20:01)
[2025-01-03 07:12] LABS: Bedside Glucose 143 mg/dL (74-106)
[2025-01-03] MEDS: Carvedilol 12.5 MG Tablet PO ×2 (08:07→16:23)
[2025-01-03] MEDS: Aspirin 81 MG TAB.CHEW PO (08:07)
[2025-01-03] MEDS: Cholecalciferol (Vit D3) 125 MCG CAPSULE (5,000 UNITS) PO (08:07)
[2025-01-03] MEDS: Ascorbic Acid 500 MG Tablet 1000 MG PO ×2 (08:07→16:23)
[2025-01-03] MEDS: Empagliflozin 25 MG Tablet PO (08:07)
[2025-01-03] MEDS: Pantoprazole Sodium 40 MG Tablet PO (08:07)
[2025-01-03] MEDS: Amiodarone 200 MG Tablet PO (08:07)
[2025-01-03] MEDS: Lactobacillis Acidophilus 1 CAP PO ×4 (08:07→21:09)
[2025-01-03] MEDS: predniSONE 20 MG Tablet PO (08:07)
[2025-01-03] MEDS: Zinc Sulfate 50 mg zinc (220 mg) ORAL capsule PO (08:07)
[2025-01-03] MEDS: guaiFENesin 1,200 MG Tablet 1200 MG PO ×2 (08:07→21:11)
[2025-01-03 08:11] LABS: Troponin T High Sens 2 HR 18 ng/L (<=22)
[2025-01-03] MEDS: Arthritis Pain Compound 60 CLICK TUBE TOPICAL ×2 (08:12→21:09)
[2025-01-03 10:12] LABS: Troponin T High Sens 4 HR 21 ng/L (<=22)
[2025-01-03 11:16] LABS: Bedside Glucose 277 mg/dL (74-106)
[2025-01-03] MEDS: Insulin Lispro 100 UNIT/ML INSULN.PEN SC ×3 (11:52→21:10)
--- NOTE | 2025-01-03 13:23 | CASEMGMT ---
Social Work IDT met with patient at bedside and participated by phone for Team meeting. Discussed patient's progress in PT/OT/SN. Educated to Medicare benefit - DC 01/15. 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 The goal is for pt to return home with , however, cannot assist. Pt may need an alternative DC plan. Pt and in agreement that may be needed. Will ReTeam next week and discuss progress. SW to assist with DC planning. Erika Roca IRON CARRIER PHILOSOPHY FACULTY MEMBER
--- NOTE | 2025-01-03 14:52 | PN_ITS ---
Subjective Subjective Tabitha was seen on team rounds today. His Britt participated by phone. Guy ALVARES was called this morning at about 4AM for SOB/hypoxemia and low BP. ABG showed a pH of 7.50, oxygen saturation of 96%, pO2 of 71 and a pCO2 of 31. This was on 100% nonrebreather. He was treated with aerosols and things improved. A pCXR was done and was reported by radiologist as increasing R basilar infiltrate.......When I compared this to the CXR done 1 week ago they don't look significantly different. No pleural effusions and no PVC. The WBC is elevated but, he has been on high dose steroids. He has been AF and he was doing great at the end of the day yesterday when I saw him. He has been on Mucinex, prednisone, duonebs, Mucinex and PRN Albuterol aerosols. When he was seen on TEAM rounds at approximately 1:30 he was on RA and maintaining a pulse ox of 93- 96%. He denies reflux, heartburn and any hx of waking up at night with SOB, cough, heartburn. He denies problems with breathing in the past but, he has not been able to exert himself due to not being able to walk. He had a brother with asthma. He denies sore throat, rhinitis, chest pain. COVID-19 and respiratory panel were negative last Tuesday and nothing has changed since then. Troponin x 2 has been negative today.. Hemoglobin is stable at 12.1. The BUN is 21 and the creatinine is 0.67 which are stable since last week. He was started on Zosyn by the night hospitalist. MRSA nasal swab was negative. He is back to feeling like his breathing is good. I suspect the low BP was related to hypoxemia with decreased cardeiac function........and possibly due to valsalva when using the PEP? BP is now 133/77 with a heart rate of 58. Currently he denies cephalgia, lightheadedness, sore throat, chest pain, palpitations, shortness of breath at rest, nausea/vomiting/abdominal pain, calf pain. Objective Data Objective Data Vital Signs: Vital Signs Temp Pulse Resp BP Pulse Ox O2 Del Method O2 Flow Rate 97.2 F L 58 L 18 133/77 H 96 Nasal Cannula 1 01/03/25 05:39 01/03/25 13:00 01/03/25 13:00 01/03/25 06:30 01/03/25 14:09 01/03/25 13:00 01/03/25 13:00 FiO2 40 12/28/24 20:23 Oxygen Flow Rate (L/min) 1 Oxygen Delivery Method Nasal Cannula Weight: 207 lb 0.225 oz Body Mass Index (BMI) 24.4 Intake & Output: Intake and Output for Last 24 Hours 01/01/25 01/02/25 01/03/25 23:59 23:59 23:59 Intake Total 1950 / 2450 1900 / 1900 1050 / 1050 Output Total 1800 / 2500 3450 / 3450 1250 / 1250 Balance 150 / -50 -1550 / -1550 -200 / -200 Lab / Micro Data 01/03/25 05:26 01/03/25 05:26 Labs: Laboratory Results - last 24 hr 01/02/25 16:58: POC Glucose 149 H 01/02/25 21:42: POC Glucose 195 H 01/03/25 04:39: POC Glucose 129 H 01/03/25 05:26: WBC 16.7 H, RBC 3.82 L, Hgb 12.1 L, Hct 36.8 L, MCV 96.3 H, MCH 31.7, MCHC 32.9, RDW Std Deviation 51.4 H, RDW Coeff of Arnie 14.6, Plt Count 320, MPV 9.4, Immature Gran % (Auto) 0.500, Neut % (Auto) 84.2 H, Lymph % (Auto) 6.9 L, [place] % (Auto) 6.8, Eos % (Auto) 1.4, Baso % (Auto) 0.2, Absolute Neuts (auto) 14.0 H, Absolute Lymphs (auto) 1.15, Nucleated RBC % 0, Sodium 137, Potassium 3.8, Chloride 101, Carbon Dioxide 23.1, Anion Gap 13, BUN 21 H, Creatinine 0.67 L, Estim Creat Clear Calc 116.02, Est GFR (MDRD) Non-Af 104, BUN/Creatinine Ratio 31.9 H, Glucose 132 H, Calcium 9.0, Phosphorus 2.9, Magnesium 1.9, Total Bilirubin 0.34, AST 15, ALT 29, Alkaline Phosphatase 70, Troponin T High Sens 17, Total Protein 6.3, Albumin 3.5, Globulin 2.7, Albumin/Globulin Ratio 1.3 01/03/25 06:42: POC Glucose 143 H 01/03/25 07:36: Troponin T Hi Sens 2 Hr 18 01/03/25 09:41: Troponin T Hi Sens 4Hr 21 01/03/25 10:59: POC Glucose 277 H Micro: Microbiology 01/03/25 08:11 Nasal Secretion MRSA (PCR) - Final 12/28/24 15:15 Mucosa - Nasopharyngeal Respiratory Panel (PCR) - Final 12/28/24 15:15 Mucosa - Nose Coronavirus COVID-19 PCR - Final ABG Data ABG results: ABG 01/03/25 05:10 Specimen Type ART Sample Site L Radial pH 7.50 H Bicarbonate Actual 24.0 Total CO2 25 Base Excess 1 O2 Saturation 96 O2 % 100.0 ABG pCO2 31.1 L ABG pO2 71 L Kevin Test Positive O2 Delivery Device NRB Vent Mode Not entered Radiography Diagnostic Testing: Radiology Impression Chest X-Ray 01/03/25 05:20 IMPRESSION: Increasing right basilar infiltrate. This may represent increasing atelectasis or pneumonia. Follow-up to clearing is recommended. Postsurgical changes seen within the cervical spine. Reading Location: [id number] Physical Exam Const alert, oriented x3 and no apparent distress General Appearance: cooperative Resp Resp Narrative: Currently he is not tachypneic and he has no conversational dyspnea. Auscultation of the lungs revealed diminished breath sounds throughout but no wheezing and no crackles. He had no cough with deep breathing. He is 95% saturated on room air. Cardio regular rate, regular rhythm and no gallops Cardio Narrative: No ectopy GI normal to inspection, nondistended, normoactive bowel sounds, soft to palpation and non-tender GI Narrative: He has been taking pantoprazole. Extremity no calf tenderness General Extremity: Negative for edema Assessment & Plan Assessment/Plan (1) Debility: (2) Cervical stenosis of spinal canal: (3) Myelopathy concurrent with and due to spinal stenosis of cervical region: (4) Radiculopathy due to cervical spondylosis at multiple levels: (5) H/O laminectomy: (6) Acute blood loss anemia: (7) Urine retention: (8) Diabetes mellitus, type II: QUALIFIERS: Diabetes mellitus [facility] insulin use: without superintendent container terminal use Diabetes mellitus complication status: without complication Qualified Code(s): E11.9 - Type 2 diabetes mellitus without complications (9) Presence of cardiac resynchronization therapy defibrillator (BROADCAST TRAFFIC COORDINATOR-D): (10) Presence of stent in coronary artery: (11) Dilated cardiomyopathy: (12) Hypoxemia: (13) COPD with acute exacerbation: (14) Pulmonary nodules/lesions, multiple: (15) Insomnia: QUALIFIERS: Insomnia type: drug-induced Qualified Code(s): F 19.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 PLAN: Plan 1. Physical therapy was held this morning but he will have therapy in the afternoon as he is back at his baseline. 2. Add fluticasone/Salmeterol 1 inhalation every 12 hours to the current drug regimen. Continue Mucinex, duonebs, PRN Albuterol aerosols. Continue Zosyn for 24 H and if he remains stable will transition to Augmentin. 3. Order sputum culture 4. Frank is agreeable to scheduling an appointment for him to follow-up with pulmonary medicine at discharge. Will need PFTs. Also needs to have surveillance for the 1 cm nodule in the left base. Trying to figure out what is triggering the bronchospasm. Rather than tapering the Prednisone to 10 mg for 3 days will continue 20 mg of Prednisone for 3 more doses Charges/Coding Visit Charges Inpatient E&M: 69707 Subs Hosp L2
[2025-01-03] MEDS: 0.9% Saline Lock 10 ML Syringe IV (15:02)
[2025-01-03] MEDS: Tamsulosin HCl 0.4 MG Capsule 0.8 MG PO (16:23)
--- NOTE | 2025-01-03 16:27 | CHAPLAIN ---
Type of Pastoral Visit ___ Initial Visit _x__ Follow-up Visit ___ On-call Visit ___ General Patient Visit ___ Spiritual Assessment ___ Family Conference ___ Bereavement ___ Rapid Response ___ Code Blue ___ Other (describe below) Pastoral Care Referral From ___ Patient ___ Family ___ Nurse ___ Physician _x__ Vice Chair ___ Marine Electrician Apprentice ___ Other (describe below) Sacrament/Intervention _x__ Active listening ___ Anointing ___ Scientologist ___ Bereavement ___ Communion _x__ Katrin exploration ___ ___ Life review _x__ Prayer ___ Reconciliation ___ Sacrament of Sick _x__ Supportive presence ___ Wedding ___ Other (describe below) Pastoral Comments SW requested visit to this patient who had an episode this morning that required a rapid response; this is a follow up visit; pt is welcoming and resting in his bed; pt recalls the events of the morning and how he handled it by coming to [facility]; pt refers to his feelings on and what might happen; pt speaks of his growing katrin and getting back to his roots 'because I was baptized when I was a young person'; pt says that his sister has talked with him and gives him great spiritual support; pt admits that he has worries for his family and in particular his who also has health issues; pt welcomes someone to talk with and for a time of prayer
[2025-01-03 17:02] LABS: Bedside Glucose 183 mg/dL (74-106)
[2025-01-03] MEDS: Fluticasone/Salmeterol 232-14 Inhaler 1 PUFF INHALATION (21:09)
[2025-01-03] MEDS: Atorvastatin Calcium 80 MG Tablet PO (21:11)
[2025-01-03] MEDS: Senna/Docusate Sodium 1 Tablet 2 TABLET PO (21:11)
[2025-01-03] MEDS: oxyCODONE 5 MG Tablet PO (21:25)
[2025-01-03] MEDS: Zolpidem Tartrate 5 MG Tablet 10 MG PO (21:25)
[2025-01-03 21:36] LABS: Bedside Glucose 201 mg/dL (74-106)
[2025-01-04] VITALS (7 sets, daily range): BP systolic 123–147; BP diastolic 56–72; PULSE 57–80; RESP 16–18; TEMP 36.3–36.7; O2SAT 93–97; BMI 23.8
[2025-01-04] MEDS: Piperacil/Tazobactam 3.375 GM in 0.9% Normal Saline (50mL MB+) 50 ML IV ×3 (05:00→21:37)
[2025-01-04] MEDS: Gabapentin 300 MG Capsule PO ×3 (05:37→21:28)
[2025-01-04] MEDS: Enoxaparin 40 MG/0.4 ML Syringe SC (05:37)
[2025-01-04] MEDS: Acetaminophen 500 MG Tablet 1000 MG PO ×3 (05:37→21:27)
[2025-01-04] MEDS: 0.9% Saline Lock 10 ML Syringe IV ×2 (05:43→21:38)
[2025-01-04 06:17] LABS: Bedside Glucose 116 mg/dL (74-106)
[2025-01-04] MEDS: tiZANidine HCl 2 MG Tablet PO ×3 (06:29→21:27)
[2025-01-04] MEDS: oxyCODONE 5 MG Tablet 10 MG PO (06:30)
[2025-01-04] MEDS: Ipratropium/Albuterol Sulfate 3 ML AMPUL.NEB INHALATION ×3 (06:55→20:15)
[2025-01-04] MEDS: guaiFENesin 1,200 MG Tablet 1200 MG PO ×2 (08:04→21:28)
[2025-01-04] MEDS: Senna/Docusate Sodium 1 Tablet 2 TABLET PO ×2 (08:04→21:27)
[2025-01-04] MEDS: Zinc Sulfate 50 mg zinc (220 mg) ORAL capsule PO (08:04)
[2025-01-04] MEDS: Cholecalciferol (Vit D3) 125 MCG CAPSULE (5,000 UNITS) PO (08:04)
[2025-01-04] MEDS: Arthritis Pain Compound 60 CLICK TUBE TOPICAL ×2 (08:05→21:28)
[2025-01-04] MEDS: Empagliflozin 25 MG Tablet PO (08:05)
[2025-01-04] MEDS: Ascorbic Acid 500 MG Tablet 1000 MG PO ×2 (08:05→17:34)
[2025-01-04] MEDS: Pantoprazole Sodium 40 MG Tablet PO (08:05)
[2025-01-04] MEDS: Carvedilol 12.5 MG Tablet PO ×2 (08:05→17:33)
[2025-01-04] MEDS: Aspirin 81 MG TAB.CHEW PO (08:05)
[2025-01-04] MEDS: predniSONE 20 MG Tablet PO (08:05)
[2025-01-04] MEDS: Amiodarone 200 MG Tablet PO (08:05)
[2025-01-04] MEDS: Lactobacillis Acidophilus 1 CAP PO ×4 (08:05→21:28)
[2025-01-04] MEDS: Fluticasone/Salmeterol 232-14 Inhaler 1 PUFF INHALATION ×2 (08:06→21:28)
[2025-01-04] MEDS: Furosemide 20 MG Tablet PO (10:06)
[2025-01-04 11:41] LABS: Bedside Glucose 137 mg/dL (74-106)
[2025-01-04 17:11] LABS: Bedside Glucose 183 mg/dL (74-106)
[2025-01-04] MEDS: Tamsulosin HCl 0.4 MG Capsule 0.8 MG PO (17:33)
[2025-01-04] MEDS: Insulin Lispro 100 UNIT/ML INSULN.PEN SC ×2 (17:33→21:36)
[2025-01-04] MEDS: Atorvastatin Calcium 80 MG Tablet PO (21:28)
[2025-01-04] MEDS: oxyCODONE 5 MG Tablet PO (21:47)
[2025-01-04 22:58] LABS: Bedside Glucose 164 mg/dL (74-106)
[2025-01-05] MEDS: oxyCODONE 5 MG Tablet PO ×2 (02:06→22:13)
[2025-01-05] MEDS: Piperacil/Tazobactam 3.375 GM in 0.9% Normal Saline (50mL MB+) 50 ML IV ×3 (05:02→22:16)
[2025-01-05] MEDS: 0.9% Saline Lock 10 ML Syringe IV ×2 (05:03→22:22)
[2025-01-05 05:13] VITALS: BP 148/70; PULSE 58; RESP 18; TEMP 36.4; O2SAT 94
[2025-01-05] MEDS: Enoxaparin 40 MG/0.4 ML Syringe SC (05:19)
[2025-01-05] MEDS: Gabapentin 300 MG Capsule PO ×3 (05:20→22:11)
[2025-01-05] MEDS: Acetaminophen 500 MG Tablet 1000 MG PO ×3 (05:20→22:11)
[2025-01-05] MEDS: oxyCODONE 5 MG Tablet 10 MG PO (07:12)
[2025-01-05] MEDS: tiZANidine HCl 2 MG Tablet PO ×3 (07:12→22:13)
[2025-01-05 07:31] VITALS: PULSE 65; RESP 16
[2025-01-05] MEDS: Ipratropium/Albuterol Sulfate 3 ML AMPUL.NEB INHALATION ×2 (07:31→12:46)
[2025-01-05 07:32] LABS: Bedside Glucose 108 mg/dL (74-106)
[2025-01-05 07:33] VITALS: O2SAT 98
[2025-01-05] MEDS: Arthritis Pain Compound 60 CLICK TUBE TOPICAL ×2 (08:24→22:10)
[2025-01-05] MEDS: Zinc Sulfate 50 mg zinc (220 mg) ORAL capsule PO (08:25)
[2025-01-05] MEDS: Lactobacillis Acidophilus 1 CAP PO ×4 (08:25→22:10)
[2025-01-05] MEDS: Ascorbic Acid 500 MG Tablet 1000 MG PO ×2 (08:26→16:00)
[2025-01-05] MEDS: Amiodarone 200 MG Tablet PO (08:26)
[2025-01-05] MEDS: Aspirin 81 MG TAB.CHEW PO (08:26)
[2025-01-05] MEDS: Furosemide 20 MG Tablet PO (08:26)
[2025-01-05] MEDS: Empagliflozin 25 MG Tablet PO (08:27)
[2025-01-05] MEDS: Carvedilol 12.5 MG Tablet PO ×2 (08:27→16:00)
[2025-01-05] MEDS: Pantoprazole Sodium 40 MG Tablet PO (08:27)
[2025-01-05] MEDS: guaiFENesin 1,200 MG Tablet 1200 MG PO ×2 (08:27→22:11)
[2025-01-05] MEDS: Cholecalciferol (Vit D3) 125 MCG CAPSULE (5,000 UNITS) PO (08:28)
[2025-01-05] MEDS: predniSONE 20 MG Tablet PO (08:28)
[2025-01-05] MEDS: Senna/Docusate Sodium 1 Tablet 2 TABLET PO (08:28)
[2025-01-05] MEDS: Fluticasone/Salmeterol 232-14 Inhaler 1 PUFF INHALATION ×2 (08:29→22:11)
[2025-01-05] MEDS: Insulin Lispro 100 UNIT/ML INSULN.PEN SC ×3 (11:05→22:09)
[2025-01-05 11:32] LABS: Bedside Glucose 172 mg/dL (74-106)
[2025-01-05 12:46] VITALS: PULSE 68; RESP 18
[2025-01-05] MEDS: Tamsulosin HCl 0.4 MG Capsule 0.8 MG PO (16:00)
[2025-01-05 16:47] LABS: Bedside Glucose 233 mg/dL (74-106)
[2025-01-05 18:00] VITALS: BP 121/61; PULSE 62; RESP 16; TEMP 36.2; O2SAT 97
[2025-01-05] MEDS: Atorvastatin Calcium 80 MG Tablet PO (22:11)
[2025-01-05 22:20] VITALS: O2SAT 96
[2025-01-05 22:50] LABS: Bedside Glucose 183 mg/dL (74-106)
[2025-01-06] MEDS: Acetaminophen 500 MG Tablet 1000 MG PO ×3 (05:24→20:30)
[2025-01-06] MEDS: Gabapentin 300 MG Capsule PO ×3 (05:24→20:30)
[2025-01-06] MEDS: Enoxaparin 40 MG/0.4 ML Syringe SC (05:24)
[2025-01-06] MEDS: 0.9% Saline Lock 10 ML Syringe IV ×5 (05:25→22:51)
[2025-01-06] MEDS: Piperacil/Tazobactam 3.375 GM in 0.9% Normal Saline (50mL MB+) 50 ML IV ×3 (05:26→22:52)
[2025-01-06 06:44] VITALS: BP 131/66; PULSE 58; RESP 16; TEMP 36.5; O2SAT 93
[2025-01-06] MEDS: tiZANidine HCl 2 MG Tablet PO ×3 (07:09→20:30)
[2025-01-06] MEDS: oxyCODONE 5 MG Tablet 10 MG PO (07:10)
[2025-01-06 07:20] LABS: Bedside Glucose 117 mg/dL (74-106)
[2025-01-06] MEDS: Fluticasone/Salmeterol 232-14 Inhaler 1 PUFF INHALATION ×2 (08:17→20:29)
[2025-01-06] MEDS: Arthritis Pain Compound 60 CLICK TUBE TOPICAL ×2 (08:17→20:29)
[2025-01-06] MEDS: Ascorbic Acid 500 MG Tablet 1000 MG PO ×2 (08:20→16:15)
[2025-01-06] MEDS: guaiFENesin 1,200 MG Tablet 1200 MG PO ×2 (08:20→20:30)
[2025-01-06] MEDS: Cholecalciferol (Vit D3) 125 MCG CAPSULE (5,000 UNITS) PO (08:21)
[2025-01-06] MEDS: Amiodarone 200 MG Tablet PO (08:21)
[2025-01-06] MEDS: Carvedilol 12.5 MG Tablet PO ×2 (08:21→16:15)
[2025-01-06] MEDS: Furosemide 20 MG Tablet PO (08:21)
[2025-01-06] MEDS: Aspirin 81 MG TAB.CHEW PO (08:21)
[2025-01-06] MEDS: Pantoprazole Sodium 40 MG Tablet PO (08:21)
[2025-01-06] MEDS: Empagliflozin 25 MG Tablet PO (08:22)
[2025-01-06] MEDS: predniSONE 20 MG Tablet PO (08:22)
[2025-01-06] MEDS: Lactobacillis Acidophilus 1 CAP PO ×4 (08:22→20:28)
[2025-01-06] MEDS: Zinc Sulfate 50 mg zinc (220 mg) ORAL capsule PO (08:22)
[2025-01-06] MEDS: Insulin Lispro 100 UNIT/ML INSULN.PEN SC ×3 (11:37→20:36)
[2025-01-06 12:06] LABS: Bedside Glucose 182 mg/dL (74-106)
[2025-01-06] MEDS: oxyCODONE 5 MG Tablet PO ×2 (16:15→20:31)
[2025-01-06] MEDS: Tamsulosin HCl 0.4 MG Capsule 0.8 MG PO (16:15)
[2025-01-06 17:06] LABS: Bedside Glucose 219 mg/dL (74-106)
[2025-01-06 18:00] VITALS: BP 140/62; PULSE 62; RESP 16; TEMP 36.4; O2SAT 96
[2025-01-06] MEDS: Atorvastatin Calcium 80 MG Tablet PO (20:29)
[2025-01-06 21:17] LABS: Bedside Glucose 174 mg/dL (74-106)
[2025-01-07 05:42] VITALS: BP 138/81; PULSE 57; RESP 18; TEMP 36.8; O2SAT 94
[2025-01-07] MEDS: Enoxaparin 40 MG/0.4 ML Syringe SC (05:46)
[2025-01-07] MEDS: tiZANidine HCl 2 MG Tablet PO ×3 (05:47→21:02)
[2025-01-07] MEDS: Acetaminophen 500 MG Tablet 1000 MG PO ×3 (05:47→21:01)
[2025-01-07] MEDS: Gabapentin 300 MG Capsule PO ×3 (05:47→21:08)
[2025-01-07] MEDS: 0.9% Saline Lock 10 ML Syringe IV ×3 (05:53→21:10)
[2025-01-07] MEDS: Piperacil/Tazobactam 3.375 GM in 0.9% Normal Saline (50mL MB+) 50 ML IV ×3 (05:53→21:08)
[2025-01-07] MEDS: oxyCODONE 5 MG Tablet 10 MG PO (07:06)
[2025-01-07 07:29] LABS: Bedside Glucose 120 mg/dL (74-106)
[2025-01-07] MEDS: Fluticasone/Salmeterol 232-14 Inhaler 1 PUFF INHALATION ×2 (08:28→21:00)
[2025-01-07] MEDS: Lactobacillis Acidophilus 1 CAP PO ×4 (08:29→21:00)
[2025-01-07] MEDS: Carvedilol 12.5 MG Tablet PO ×2 (08:29→16:06)
[2025-01-07] MEDS: Senna/Docusate Sodium 1 Tablet 2 TABLET PO (08:29)
[2025-01-07] MEDS: Pantoprazole Sodium 40 MG Tablet PO (08:29)
[2025-01-07] MEDS: Furosemide 20 MG Tablet PO (08:30)
[2025-01-07] MEDS: Amiodarone 200 MG Tablet PO (08:30)
[2025-01-07] MEDS: predniSONE 20 MG Tablet PO (08:30)
[2025-01-07] MEDS: Aspirin 81 MG TAB.CHEW PO (08:30)
[2025-01-07] MEDS: Ascorbic Acid 500 MG Tablet 1000 MG PO ×2 (08:30→16:06)
[2025-01-07] MEDS: Empagliflozin 25 MG Tablet PO (08:31)
[2025-01-07] MEDS: Arthritis Pain Compound 60 CLICK TUBE TOPICAL ×2 (08:31→20:58)
[2025-01-07] MEDS: guaiFENesin 1,200 MG Tablet 1200 MG PO ×2 (08:31→21:00)
[2025-01-07] MEDS: Zinc Sulfate 50 mg zinc (220 mg) ORAL capsule PO (08:31)
[2025-01-07] MEDS: Cholecalciferol (Vit D3) 125 MCG CAPSULE (5,000 UNITS) PO (08:31)
--- NOTE | 2025-01-07 10:40 | PCM.PROGNOTE ---
Subjective Subjective Afebrile VSS - Maintaining appropriate oxygen saturation on RA-93 to 97% on room air Oral intake - FOOD eating 75 to 100% of all his meals. FLUIDS good Weight is down approximately 5 pounds in the past 1 week. It is down 9 pounds since admission to rehab. Discussed with nursing - no problems that need addressed Reviewed the THERAPY notes Medication list reviewed. Requesting that the aerosols be made PRN. He is c/o pain in the low back. Used to go to pain management for low back pain but, when he was forced to be less active due to neck pain and myelopathy related to cervical cord compression his back stopped hurting as much. Now that he is bearing wt and ambulating again the back pain has resurfaced. Denies radicular pain at this time. Very denies shortness of breath, chest pain, palpitations, nausea/vomiting/abdominal pain, painful swallowing, mouth pain, dysuria and calf pain. He has an occasional cough. Objective Data Objective Data Vital Signs: Vital Signs Temp Pulse Resp BP Pulse Ox O2 Del Method O2 Flow Rate 98.2 F 57 L 18 138/81 H 94 Room Air 1 01/07/25 05:42 01/07/25 05:42 01/07/25 05:42 01/07/25 05:42 01/07/25 05:42 01/07/25 05:42 01/03/25 13:00 FiO2 40 12/28/24 20:23 Oxygen Flow Rate (L/min) 1 Oxygen Delivery Method Room Air Weight: 202 lb 2.622 oz Body Mass Index (BMI) 23.8 Intake & Output: Intake and Output for Last 24 Hours 01/05/25 01/06/25 01/07/25 23:59 23:59 23:59 Intake Total 2450 / 2450 2790 / 2790 1000 / 1000 Output Total 3500 / 3500 2600 / 2600 700 / 700 Balance -1050 / -1050 190 / 190 300 / 300 Lab / Micro Data 01/03/25 05:26 01/03/25 05:26 Labs: Laboratory Results - last 24 hr 01/06/25 11:36: POC Glucose 182 H 01/06/25 16:19: POC Glucose 219 H 01/06/25 20:36: POC Glucose 174 H 01/07/25 07:06: POC Glucose 120 H Micro: Microbiology 01/05/25 12:22 Sputum, Expectorated/Coughed Gram Stain - Final 01/03/25 08:11 Nasal Secretion MRSA (PCR) - Final 12/28/24 15:15 Mucosa - Nasopharyngeal Respiratory Panel (PCR) - Final 12/28/24 15:15 Mucosa - Nose Coronavirus COVID-19 PCR - Final Physical Exam Const alert, oriented x3 and no apparent distress General Appearance: cooperative Resp Resp Narrative: No wheezing, no tachypnea, no conversational dyspnea. Lungs are clear to auscultation without crackles or wheezes. No accessory muscle use. No cough with deep breathing. Auscultation: diminished lung sounds Cardio regular rate, regular rhythm and no gallops Cardio Narrative: No ectopy GI normal to inspection, nondistended, normoactive bowel sounds, soft to palpation and non-tender Extremity no calf tenderness General Extremity: Negative for edema Skin Rashes: no rashes Psych Psych Narrative: Somewhat anxious. Emotionally labile. Tearful at times. Worries a lot. 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 Continue therapy 2. Discontinue scheduled DuoNeb aerosols. Start Umeclidinium [place] inhaler 1 puff daily. Continue Albuterol aerosols PRN. He has finished the steroid taper. 3. Apply the arthritis pain cream to the low back as well as the knees. Would like to avoid a PO NSAID because this can delay fusion. Continue PRN Oxycodone. Will need to follow up with pain management post DC from rehab. 4. Plan voiding trial in the AM. If he needs to have a straight cath will use urojet for comfort. He has a lot of trepidation around the catheter and asks what will we do if he fails the voiding trial tomorrow. I told him we would send him home with a Fernandez and have him Fernandez up with Dr. Kohli in the office. He has been treated by Dr. Kohli in the past (about 10 years ago) for bladder CA. Has not followed up in the past several years. Could conceivably have recurrent tumor or strictures or BPH. Failed 0.4 mg of Flomax. 5. He may benefit from treating for anxiety/depression. He has insomnia, emotional lability, he is anxious and overthinks things, worried about his 's health problems. Will discuss with him. Charges/Coding Visit Charges Inpatient E&M: 18352 Subs Hosp L1
[2025-01-07] MEDS: Umeclidinium Bromide Inhaler 1 PUFF INHALATION (11:27)
[2025-01-07 11:58] LABS: Bedside Glucose 146 mg/dL (74-106)
[2025-01-07] MEDS: Insulin Lispro 100 UNIT/ML INSULN.PEN SC ×2 (16:04→21:14)
[2025-01-07] MEDS: Tamsulosin HCl 0.4 MG Capsule 0.8 MG PO (16:05)
[2025-01-07 16:21] LABS: Bedside Glucose 196 mg/dL (74-106)
[2025-01-07 18:00] VITALS: BP 129/68; PULSE 57; RESP 16; TEMP 36.4; O2SAT 95
[2025-01-07] MEDS: Atorvastatin Calcium 80 MG Tablet PO (21:00)
[2025-01-07] MEDS: oxyCODONE 5 MG Tablet PO (21:09)
[2025-01-07 22:06] LABS: Bedside Glucose 174 mg/dL (74-106)
[2025-01-08] MEDS: oxyCODONE 5 MG Tablet PO (02:11)
[2025-01-08] MEDS: Enoxaparin 40 MG/0.4 ML Syringe SC (05:33)
[2025-01-08] MEDS: Acetaminophen 500 MG Tablet 1000 MG PO ×3 (05:33→21:24)
[2025-01-08] MEDS: Gabapentin 300 MG Capsule PO ×3 (05:33→23:01)
[2025-01-08] MEDS: Piperacil/Tazobactam 3.375 GM in 0.9% Normal Saline (50mL MB+) 50 ML IV ×3 (05:33→21:36)
[2025-01-08 06:00] VITALS: BP 147/76; PULSE 62; RESP 20; TEMP 36.7; O2SAT 95
[2025-01-08] MEDS: oxyCODONE 5 MG Tablet 10 MG PO ×2 (06:17→21:23)
[2025-01-08] MEDS: tiZANidine HCl 2 MG Tablet PO ×3 (06:17→21:24)
[2025-01-08 06:46] LABS: Bedside Glucose 132 mg/dL (74-106)
[2025-01-08] MEDS: Arthritis Pain Compound 60 CLICK TUBE TOPICAL ×2 (08:14→21:24)
[2025-01-08] MEDS: Fluticasone/Salmeterol 232-14 Inhaler 1 PUFF INHALATION ×2 (08:14→21:24)
[2025-01-08] MEDS: Ascorbic Acid 500 MG Tablet 1000 MG PO ×2 (08:15→16:41)
[2025-01-08] MEDS: Zinc Sulfate 50 mg zinc (220 mg) ORAL capsule PO (08:15)
[2025-01-08] MEDS: Carvedilol 12.5 MG Tablet PO ×2 (08:16→16:41)
[2025-01-08] MEDS: Amiodarone 200 MG Tablet PO (08:16)
[2025-01-08] MEDS: Empagliflozin 25 MG Tablet PO (08:16)
[2025-01-08] MEDS: Umeclidinium Bromide Inhaler 1 PUFF INHALATION (08:16)
[2025-01-08] MEDS: DULoxetine Hcl 30 MG Capsule PO (08:16)
[2025-01-08] MEDS: Aspirin 81 MG TAB.CHEW PO (08:16)
[2025-01-08] MEDS: Pantoprazole Sodium 40 MG Tablet PO (08:16)
[2025-01-08] MEDS: guaiFENesin 1,200 MG Tablet 1200 MG PO ×2 (08:16→21:24)
[2025-01-08] MEDS: Furosemide 20 MG Tablet PO (08:16)
[2025-01-08] MEDS: Cholecalciferol (Vit D3) 125 MCG CAPSULE (5,000 UNITS) PO (08:16)
[2025-01-08] MEDS: Lactobacillis Acidophilus 1 CAP PO ×4 (08:16→21:24)
--- NOTE | 2025-01-08 09:27 | NURSING ---
Spoke with [facility] office, sola can be removed, office will call pt to make f/u appt
--- NOTE | 2025-01-08 11:49 | PCM.PROGNOTE ---
Subjective Subjective Afebrile VSS - BP is mildly elevated at times.....may be related to recent course of high dose steroids for acute exacerbation COPD Maintaining appropriate oxygen saturation on RA-93 to 97% on room air Oral intake - FOOD good FLUIDS good Blood sugars for the past 2 days have all been less than 200. Effect of the high-dose steroids is wearing off. No hypoglycemia. Discussed with nursing - no problems that need addressed. Fernandez catheter was discontinued this a.m. for a voiding trial. Currently taking Flomax 0.8 mg daily. Reviewed the THERAPY notes Medication list reviewed. Starting Duloxetine today for anxiety/depression and chronic back pain. Awoke and asked for Oxycodone at 2 AM. Seems to be requiring a dose at HS recently. He gets a scheduled dose at 0700 to prepare him for therapy. The pain he is having is in the low back, not the neck. His neck is feeling much better. He was in pain management in the past for chronic low back pain. Denies shortness of breath, wheezing, lightheadedness, chest pain, nausea/vomiting/abdominal pain and calf pain. He voided 400 cc since the Fernandez was removed PVR with bladder scan was 300. Will continued to monitor. Have him stand to urinate. Will have him urinate once and wait and then try to urinate again. Frank tells me that he was getting epidurals from pain management. He denies any pain radiating into his buttocks or legs. Pain is mostly musculoskeletal. He is getting Gabapentin 300 mg TID. Objective Data Objective Data Vital Signs: Vital Signs Temp Pulse Resp BP Pulse Ox O2 Del Method O2 Flow Rate 98.1 F 62 20 H 147/76 H 95 Room Air 1 01/08/25 06:00 01/08/25 06:00 01/08/25 06:00 01/08/25 06:00 01/08/25 06:00 01/08/25 06:00 01/03/25 13:00 FiO2 40 12/28/24 20:23 Oxygen Flow Rate (L/min) 1 Oxygen Delivery Method Room Air Weight: 202 lb 2.622 oz Body Mass Index (BMI) 23.8 Intake & Output: Intake and Output for Last 24 Hours 01/06/25 01/07/25 01/08/25 23:59 23:59 23:59 Intake Total 2790 / 2790 2460 / 2860 2280 / 2280 Output Total 2600 / 2600 1400 / 2150 1850 / 1850 Balance 190 / 190 1060 / 710 430 / 430 Lab / Micro Data 01/03/25 05:26 01/03/25 05:26 Labs: Laboratory Results - last 24 hr 01/07/25 11:31: POC Glucose 146 H 01/07/25 16:03: POC Glucose 196 H 01/07/25 21:13: POC Glucose 174 H 01/08/25 06:20: POC Glucose 132 H Micro: Microbiology 01/05/25 12:22 Sputum, Expectorated/Coughed Gram Stain - Final 01/05/25 12:22 Sputum, Expectorated/Coughed Respiratory Culture - Preliminary Appears to be normal respiratory sudhakar. Further studies to follow. 01/03/25 08:11 Nasal Secretion MRSA (PCR) - Final 12/28/24 15:15 Mucosa - Nasopharyngeal Respiratory Panel (PCR) - Final 12/28/24 15:15 Mucosa - Nose Coronavirus COVID-19 PCR - Final Physical Exam Const alert, oriented x3 and no apparent distress General Appearance: cooperative Resp clear to auscultation bilaterally Resp Narrative: No conversational dyspnea. Did not request an albuterol aerosol yesterday for wheezing/shortness of breath. He is now on fluticasone/Salmeterol and Spiriva inhalers. Effort and Inspection: Negative for tachypneic or respiratory distress Auscultation: diminished lung sounds Cardio regular rate, regular rhythm and no gallops Cardio Narrative: No ectopy GI normal to inspection, nondistended, normoactive bowel sounds, soft to palpation and non-tender Extremity no calf tenderness General Extremity: Negative for edema Skin Rashes: no rashes Assessment & Plan Assessment/Plan (1) Debility: (2) Cervical stenosis of spinal canal: (3) Myelopathy concurrent with and due to spinal stenosis of cervical region: (4) Radiculopathy due to cervical spondylosis at multiple levels: (5) H/O laminectomy: (6) COPD with acute exacerbation: (7) Bronchospasm, acute: (8) Hypoxemia: (9) Pulmonary nodules/lesions, multiple: (10) Urine retention: (11) Acute blood loss anemia: (12) Diabetes mellitus, type II: QUALIFIERS: Diabetes mellitus long chain quiller tender insulin use: without chcf use Diabetes mellitus complication status: without complication Qualified Code(s): E11.9 - Type 2 diabetes mellitus without complications (13) Dilated cardiomyopathy: PLAN: Plan 1. Continue therapy 2. Have him stand to urinate and have him tried twice to urinate. He will also try bearing down a little. His first void today was sitting on the toilet and he did not actually try to urinate. It just came out when having a BM. 3. Add a dose of Oxycodone at HS. since he is not having radicular pain I do not think increasing Gabapentin will help with this pain. Did not actually have arthritis cream applied to the back as ordered. Reminded nursing that he is to get cream on the low back as well as the knees. Will touch base with surgeon and see if they would be OK with a NSAID. 4. Decrease the Accu-Cheks to twice daily Charges/Coding Visit Charges Inpatient E&M: 47968 Subs Hosp L1
[2025-01-08 11:54] LABS: Bedside Glucose 117 mg/dL (74-106)
--- NOTE | 2025-01-08 13:13 | NURSING ---
Per ok to SC only if patient bladder retains more than 400 cc urine
--- NOTE | 2025-01-08 13:14 | NURSING ---
Rover removed without any complaints, ABD placed in case of drainage.
[2025-01-08 16:36] LABS: Bedside Glucose 165 mg/dL (74-106)
[2025-01-08] MEDS: Insulin Lispro 100 UNIT/ML INSULN.PEN SC (16:40)
[2025-01-08] MEDS: Tamsulosin HCl 0.4 MG Capsule 0.8 MG PO (16:41)
[2025-01-08 17:58] VITALS: BP 153/63; PULSE 60; RESP 16; TEMP 36.6; O2SAT 97
[2025-01-08 19:30] VITALS: BP 153/63; PULSE 60; RESP 16; TEMP 36.7; O2SAT 97
[2025-01-08] MEDS: Atorvastatin Calcium 80 MG Tablet PO (21:23)
[2025-01-09 06:00] VITALS: BP 137/74; PULSE 59; RESP 16; TEMP 36.3; O2SAT 94
[2025-01-09] MEDS: 0.9% Saline Lock 10 ML Syringe IV (06:18)
[2025-01-09] MEDS: Enoxaparin 40 MG/0.4 ML Syringe SC (06:18)
[2025-01-09] MEDS: Acetaminophen 500 MG Tablet 1000 MG PO ×3 (06:18→20:59)
[2025-01-09] MEDS: Gabapentin 300 MG Capsule PO ×3 (06:18→21:00)
[2025-01-09] MEDS: oxyCODONE 5 MG Tablet 10 MG PO ×2 (06:19→20:59)
[2025-01-09] MEDS: tiZANidine HCl 2 MG Tablet PO ×3 (06:19→20:59)
[2025-01-09] MEDS: Piperacil/Tazobactam 3.375 GM in 0.9% Normal Saline (50mL MB+) 50 ML IV (06:19)
[2025-01-09] MEDS: Lidocaine Jelly 2% 20 ML Syringe (URO-JET) 1 APPLIC TOPICAL ×2 (06:21→15:14)
[2025-01-09 07:23] LABS: Bedside Glucose 113 mg/dL (74-106)
[2025-01-09] MEDS: Arthritis Pain Compound 60 CLICK TUBE TOPICAL ×2 (09:13→21:00)
[2025-01-09] MEDS: Empagliflozin 25 MG Tablet PO (09:13)
[2025-01-09] MEDS: Aspirin 81 MG TAB.CHEW PO (09:13)
[2025-01-09] MEDS: Ascorbic Acid 500 MG Tablet 1000 MG PO ×2 (09:13→16:56)
[2025-01-09] MEDS: Amiodarone 200 MG Tablet PO (09:13)
[2025-01-09] MEDS: DULoxetine Hcl 30 MG Capsule PO (09:13)
[2025-01-09] MEDS: Fluticasone/Salmeterol 232-14 Inhaler 1 PUFF INHALATION ×2 (09:13→21:00)
[2025-01-09] MEDS: Umeclidinium Bromide Inhaler 1 PUFF INHALATION (09:13)
[2025-01-09] MEDS: Lactobacillis Acidophilus 1 CAP PO ×4 (09:13→20:59)
[2025-01-09] MEDS: Furosemide 20 MG Tablet PO (09:14)
[2025-01-09] MEDS: Zinc Sulfate 50 mg zinc (220 mg) ORAL capsule PO (09:14)
[2025-01-09] MEDS: Pantoprazole Sodium 40 MG Tablet PO (09:14)
[2025-01-09] MEDS: Cholecalciferol (Vit D3) 125 MCG CAPSULE (5,000 UNITS) PO (09:14)
[2025-01-09] MEDS: guaiFENesin 1,200 MG Tablet 1200 MG PO ×2 (09:14→20:59)
[2025-01-09] MEDS: oxyCODONE 5 MG Tablet PO ×2 (10:09→14:32)
[2025-01-09] MEDS: Carvedilol 12.5 MG Tablet PO ×2 (10:10→16:56)
[2025-01-09 10:14] VITALS: BP 152/81; PULSE 85
[2025-01-09 16:43] LABS: Bedside Glucose 133 mg/dL (74-106)
[2025-01-09] MEDS: Tamsulosin HCl 0.4 MG Capsule 0.8 MG PO (16:56)
[2025-01-09 17:42] VITALS: BP 157/73; PULSE 59; RESP 17; TEMP 36.8; O2SAT 97
[2025-01-09 20:30] VITALS: PULSE 59; RESP 17; O2SAT 97
[2025-01-09] MEDS: Atorvastatin Calcium 80 MG Tablet PO (20:59)
[2025-01-09] MEDS: Zolpidem Tartrate 5 MG Tablet 10 MG PO (21:15)
[2025-01-10 06:00] VITALS: BP 125/72; PULSE 62; RESP 17; TEMP 36.3; O2SAT 93
[2025-01-10] MEDS: tiZANidine HCl 2 MG Tablet PO ×4 (06:00→21:14)
[2025-01-10] MEDS: Acetaminophen 500 MG Tablet 1000 MG PO ×3 (06:00→20:59)
[2025-01-10] MEDS: Enoxaparin 40 MG/0.4 ML Syringe SC (06:01)
[2025-01-10] MEDS: Gabapentin 300 MG Capsule PO ×3 (06:01→20:59)
[2025-01-10] MEDS: oxyCODONE 5 MG Tablet 10 MG PO ×2 (06:01→20:59)
[2025-01-10 06:43] LABS: Bedside Glucose 120 mg/dL (74-106)
[2025-01-10] MEDS: Arthritis Pain Compound 60 CLICK TUBE TOPICAL ×2 (09:15→20:58)
[2025-01-10] MEDS: DULoxetine Hcl 30 MG Capsule PO (09:15)
[2025-01-10] MEDS: Lactobacillis Acidophilus 1 CAP PO (09:15)
[2025-01-10] MEDS: Ascorbic Acid 500 MG Tablet 1000 MG PO (09:15)
[2025-01-10] MEDS: guaiFENesin 1,200 MG Tablet 1200 MG PO (09:15)
[2025-01-10] MEDS: Pantoprazole Sodium 40 MG Tablet PO (09:15)
[2025-01-10] MEDS: Furosemide 20 MG Tablet PO (09:15)
[2025-01-10] MEDS: Cholecalciferol (Vit D3) 125 MCG CAPSULE (5,000 UNITS) PO (09:15)
[2025-01-10] MEDS: Zinc Sulfate 50 mg zinc (220 mg) ORAL capsule PO (09:15)
[2025-01-10] MEDS: Amiodarone 200 MG Tablet PO (09:16)
[2025-01-10] MEDS: Fluticasone/Salmeterol 232-14 Inhaler 1 PUFF INHALATION ×2 (09:16→20:58)
[2025-01-10] MEDS: Empagliflozin 25 MG Tablet PO (09:16)
[2025-01-10] MEDS: Umeclidinium Bromide Inhaler 1 PUFF INHALATION (09:16)
[2025-01-10] MEDS: Carvedilol 12.5 MG Tablet PO ×2 (09:16→16:39)
[2025-01-10] MEDS: Aspirin 81 MG TAB.CHEW PO (09:16)
[2025-01-10] MEDS: oxyCODONE 5 MG Tablet PO (09:20)
--- NOTE | 2025-01-10 10:03 | PCM.PROGNOTE ---
Subjective Subjective Frank was seen on TEAM rounds today. Britt participated by phone. Afebrile VSS -systolic blood pressure is elevated later in the afternoon into the 150s. Lisinopril has been on hold for decreased blood pressure earlier in the admission. Diastolic is always within goal. Heart rate has ranged from 59-85 over the past 24 hours. Heart rate increases appropriate with exertion. No lightheadedness. Maintaining appropriate oxygen saturation on to 97% on room air. Not tachypneic, denies shortness of breath. Oral intake - FOOD good FLUIDS good The blood sugar record was reviewed and the blood sugars are under excellent control with no hypoglycemia. He is no longer taking metformin. Discussed with nursing - Lee reinserted yesterday for persistent PVR's > 300 on FLomax 0.8 mg daily. Reviewed the THERAPY notes Medication list reviewed. Taking Ambien infrequently for insomnia. Tolerating Duloxetine without any adverse side effect. Denies lightheadedness, chest pain, shortness of breath, cough, palpitations, nausea/vomiting/abdominal pain, flank pain and calf pain. COncerned about a small amount of blood in the lee.....reassured him this ia not unusual. Objective Data Objective Data Vital Signs: Vital Signs Temp Pulse Resp BP Pulse Ox O2 Del Method O2 Flow Rate 97.3 F L 62 17 125/72 H 93 Room Air 1 01/10/25 06:00 01/10/25 06:00 01/10/25 06:00 01/10/25 06:00 01/10/25 06:00 01/10/25 09:45 01/03/25 13:00 FiO2 40 12/28/24 20:23 Oxygen Flow Rate (L/min) 1 Oxygen Delivery Method Room Air Weight: 202 lb 2.622 oz Body Mass Index (BMI) 23.8 Intake & Output: Intake and Output for Last 24 Hours 01/08/25 01/09/25 01/10/25 23:59 23:59 23:59 Intake Total 3050 / 3450 2590 / 2590 1050 / 1050 Output Total 3050 / 3050 2225 / 2225 650 / 650 Balance 0 / 400 365 / 365 400 / 400 Lab / Micro Data 01/03/25 05:26 01/03/25 05:26 Labs: Laboratory Results - last 24 hr 01/09/25 16:24: POC Glucose 133 H 01/10/25 06:12: POC Glucose 120 H Micro: Microbiology 01/05/25 12:22 Sputum, Expectorated/Coughed Gram Stain - Final 01/05/25 12:22 Sputum, Expectorated/Coughed Respiratory Culture - Final Mixed normal respiratory sudhakar. No Streptococcus pneumoniae, beta-hemolytic Streptococcus or Staphylococcus aureus isolated. 01/03/25 08:11 Nasal Secretion MRSA (PCR) - Final 12/28/24 15:15 Mucosa - Nasopharyngeal Respiratory Panel (PCR) - Final 12/28/24 15:15 Mucosa - Nose Coronavirus COVID-19 PCR - Final Physical Exam Const alert, oriented x3 and no apparent distress General Appearance: cooperative HEENT moist oral mucous membranes HEENT Narrative: No thrush Resp normal respiratory effort and clear to auscultation bilaterally Effort and Inspection: Negative for tachypneic or respiratory distress Auscultation: diminished lung sounds Cardio regular rate, regular rhythm and no gallops Cardio Narrative: No ectopy GI normal to inspection, nondistended, normoactive bowel sounds, soft to palpation and non-tender Extremity no calf tenderness General Extremity: Negative for edema Skin Rashes: no rashes Psych cooperative Psych Narrative: Still somewhat anxious and tearful. Upset about the Lee catheter but would rather have the catheter and to straight cath intermittently. For the most part sleeping well at night. Occasionally takes Ambien. Appropriate, making good eye contact when we speak. Normal speech. Assessment & Plan Assessment/Plan (1) Debility: (2) Cervical stenosis of spinal canal: (3) Myelopathy concurrent with and due to spinal stenosis of cervical region: (4) Radiculopathy due to cervical spondylosis at multiple levels: (5) H/O laminectomy: (6) Hypoxemia: (7) Pulmonary nodules/lesions, multiple: (8) Urine retention: (9) Acute blood loss anemia: (10) Diabetes mellitus, type II: QUALIFIERS: Diabetes mellitus complication status: without complication Diabetes mellitus assisted insulin use: without assisted use Qualified Code(s): E11.9 - Type 2 diabetes mellitus without complications (11) Dilated cardiomyopathy: (12) Anxiety and depression: PLAN: Plan 1. Continue therapy 2. Check a CBC and BMP in the a.m. 3. Doing well on fluticasone/Salmeterol inhaler and Spiriva inhaler. Will follow-up with pulmonary medicine postdischarge not only for suspected COPD but for the 1 cm pulmonary nodule in the left base. 4. Plan discharge with a Lee catheter. Will follow-up with Dr. Kohli. 5. Discontinue sliding insulin scale 6. DC ascorbic acid, zinc and probiotic 7. DC Mucinex 8. Restart lisinopril but decrease the dose to 2.5 mg daily. Continue to monitor blood pressures. 9. He had an appointment with [facility] in the office Tuesday but this will need to be rescheduled because he is not being discharged until Tuesday. His will take care of this. 10. He is chosen [facility] home health care at discharge. board worker is arranging. Charges/Coding Visit Charges Inpatient E&M: 96036 Subs Hosp L2
[2025-01-10 11:13] VITALS: BP 113/64; PULSE 63
--- NOTE | 2025-01-10 13:01 | CASEMGMT ---
Addendum entered by Erika Roca 01/10/25 13:47: [facility] can accept pending PCP signing orders. - SW educated HHC agency will contact pt for SOC date date, but typically 2-3 days after DC, pending PCP signing orders. Pt expressed understanding. Original Note: Social Work IDT met with patient at bedside and participated by phone for Team meeting. Discussed patient's progress in PT/OT/SN. Confirmed Medicare issuance of DC 01/15. [facility] offered skilled HHC at [place]. Pt agrees. SW provided list of skilled HHC agencies within geographical area, INN with insurance, that include quality and resource data via [employer] guide. [facility]. Family purchased all needed DME and has ramp getting installed over the upcoming weekend, prior to DC. No other DME needs noted. Pt will DC home with the jesus. requesting SW for anxiety, depression. Son to transport at [place]. - [facility] referred to [facility] via phone. Plan: DC home with 01/15, [facility] PT/OT/SN/MOMO Roca REFRIGERATING ENGINEER NEONATAL ICU COORDINATOR
[2025-01-10 14:11] VITALS: BP 107/55; PULSE 59
[2025-01-10] MEDS: Tamsulosin HCl 0.4 MG Capsule 0.8 MG PO (16:39)
[2025-01-10 18:00] VITALS: BP 128/71; PULSE 57; RESP 17; TEMP 36.5; O2SAT 93
[2025-01-10 20:40] VITALS: PULSE 57; RESP 17; O2SAT 93
[2025-01-10] MEDS: Atorvastatin Calcium 80 MG Tablet PO (20:59)
[2025-01-11] MEDS: Acetaminophen 500 MG Tablet 1000 MG PO ×3 (05:03→21:06)
[2025-01-11] MEDS: Gabapentin 300 MG Capsule PO ×3 (05:03→21:09)
[2025-01-11] MEDS: Enoxaparin 40 MG/0.4 ML Syringe SC (05:04)
[2025-01-11 05:22] VITALS: BMI 23.8
[2025-01-11] MEDS: 0.9% Saline Lock 10 ML Syringe IV ×2 (05:23→21:14)
[2025-01-11 06:00] VITALS: BP 138/52; PULSE 62; RESP 15; TEMP 36.4; O2SAT 95
[2025-01-11 06:07] LABS: Hematocrit 36.2 % (40-54); Hemoglobin 12.1 g/dL (13.0-16.5); Mean Corp Hgb Conc 33.4 g/dL (32-36); Mean Corpuscular Volume 95.8 fL (80-94); Mean Platelet Vol. 9.7 fl (6.2-12.0); Platelet Count 238 K/mm3 (150-450); RBC Distribution Width CV 15.1 % (11.6-14.6); RBC Distribution Width SD 52.8 fl (35.1-43.9); Red Blood Count 3.78 M/mm3 (4.6-6.2); White Blood Count 8.3 K/mm3 (4.4-11.0)
[2025-01-11 06:28] LABS: Anion Gap 11 (5-15); BUN 16 mg/dL (4-19); BUN/Creat Ratio 31.2 RATIO (10-20); Carbon Dioxide 22.4 mmol/L (21.0-32.0); Chloride 102 mmol/L (98-108); Creatinine, Serum 0.52 mg/dL (0.70-1.20); EST Glomerular Filtration Rate 112 (>60); Estimated Creatinine Clearance 116.02 ml/min (50-250); Glucose 112 mg/dL (70-99); Sodium Level 135 mmol/L (133-145)
[2025-01-11] MEDS: oxyCODONE 5 MG Tablet 10 MG PO ×2 (06:42→21:09)
[2025-01-11 08:01] VITALS: BP 131/68; PULSE 73; RESP 14; TEMP 37.1; O2SAT 96
[2025-01-11] MEDS: Pantoprazole Sodium 40 MG Tablet PO (08:04)
[2025-01-11] MEDS: DULoxetine Hcl 30 MG Capsule PO (08:04)
[2025-01-11] MEDS: Empagliflozin 25 MG Tablet PO (08:04)
[2025-01-11] MEDS: Aspirin 81 MG TAB.CHEW PO (08:04)
[2025-01-11] MEDS: Lisinopril 2.5 MG Tablet PO (08:04)
[2025-01-11] MEDS: Amiodarone 200 MG Tablet PO (08:04)
[2025-01-11] MEDS: Cholecalciferol (Vit D3) 125 MCG CAPSULE (5,000 UNITS) PO (08:04)
[2025-01-11] MEDS: Carvedilol 12.5 MG Tablet PO ×2 (08:04→16:47)
[2025-01-11] MEDS: Umeclidinium Bromide Inhaler 1 PUFF INHALATION (08:05)
[2025-01-11] MEDS: Arthritis Pain Compound 60 CLICK TUBE TOPICAL ×2 (08:05→21:05)
[2025-01-11] MEDS: Furosemide 20 MG Tablet PO (08:05)
[2025-01-11] MEDS: Fluticasone/Salmeterol 232-14 Inhaler 1 PUFF INHALATION ×2 (08:06→21:05)
[2025-01-11 09:38] VITALS: RESP 15; O2SAT 93
[2025-01-11 13:00] VITALS: BP 124/67; PULSE 72; RESP 18; TEMP 36.9; O2SAT 97
[2025-01-11] MEDS: tiZANidine HCl 2 MG Tablet PO ×2 (13:14→21:05)
[2025-01-11] MEDS: Tamsulosin HCl 0.4 MG Capsule 0.8 MG PO (16:46)
[2025-01-11 16:49] VITALS: BP 144/75; PULSE 60; RESP 16; TEMP 36.4; O2SAT 100
[2025-01-11] MEDS: Atorvastatin Calcium 80 MG Tablet PO (21:05)
[2025-01-11 21:23] VITALS: BP 122/67; PULSE 61
[2025-01-12] MEDS: oxyCODONE 5 MG Tablet PO (02:20)
[2025-01-12 06:00] VITALS: BP 124/67; PULSE 62; RESP 18; TEMP 36.7; O2SAT 95
[2025-01-12] MEDS: Acetaminophen 500 MG Tablet 1000 MG PO ×3 (06:01→21:06)
[2025-01-12] MEDS: oxyCODONE 5 MG Tablet 10 MG PO ×2 (06:01→21:04)
[2025-01-12] MEDS: Gabapentin 300 MG Capsule PO ×3 (06:01→21:04)
[2025-01-12] MEDS: tiZANidine HCl 2 MG Tablet PO ×3 (06:02→21:05)
[2025-01-12] MEDS: Enoxaparin 40 MG/0.4 ML Syringe SC (06:03)
[2025-01-12] MEDS: Senna/Docusate Sodium 1 Tablet 2 TABLET PO ×2 (10:05→21:06)
[2025-01-12] MEDS: Lisinopril 2.5 MG Tablet PO (10:05)
[2025-01-12] MEDS: Arthritis Pain Compound 60 CLICK TUBE TOPICAL ×2 (10:06→21:05)
[2025-01-12] MEDS: Carvedilol 12.5 MG Tablet PO ×2 (10:06→16:28)
[2025-01-12] MEDS: Empagliflozin 25 MG Tablet PO (10:06)
[2025-01-12] MEDS: Pantoprazole Sodium 40 MG Tablet PO (10:06)
[2025-01-12] MEDS: DULoxetine Hcl 30 MG Capsule PO (10:07)
[2025-01-12] MEDS: Cholecalciferol (Vit D3) 125 MCG CAPSULE (5,000 UNITS) PO (10:07)
[2025-01-12] MEDS: Furosemide 20 MG Tablet PO (10:08)
[2025-01-12] MEDS: Fluticasone/Salmeterol 232-14 Inhaler 1 PUFF INHALATION ×2 (10:09→21:04)
[2025-01-12] MEDS: Umeclidinium Bromide Inhaler 1 PUFF INHALATION (10:09)
[2025-01-12] MEDS: Aspirin 81 MG TAB.CHEW PO (10:10)
[2025-01-12] MEDS: Amiodarone 200 MG Tablet PO (10:10)
[2025-01-12] MEDS: Tamsulosin HCl 0.4 MG Capsule 0.8 MG PO (16:31)
[2025-01-12 18:00] VITALS: BP 118/74; PULSE 56; RESP 16; TEMP 36.4; O2SAT 93
[2025-01-12] MEDS: Atorvastatin Calcium 80 MG Tablet PO (21:07)
[2025-01-12 22:00] VITALS: BP 112/66; PULSE 59; RESP 16; TEMP 36.5; O2SAT 97
[2025-01-13] MEDS: oxyCODONE 5 MG Tablet PO ×2 (04:14→16:51)
[2025-01-13] MEDS: Enoxaparin 40 MG/0.4 ML Syringe SC (04:15)
[2025-01-13 04:27] VITALS: BP 113/61; PULSE 58; RESP 16; TEMP 36.6; O2SAT 96
[2025-01-13] MEDS: tiZANidine HCl 2 MG Tablet PO ×3 (06:21→21:34)
[2025-01-13] MEDS: Gabapentin 300 MG Capsule PO ×3 (06:22→21:33)
[2025-01-13] MEDS: oxyCODONE 5 MG Tablet 10 MG PO ×2 (06:22→21:33)
[2025-01-13] MEDS: Acetaminophen 500 MG Tablet 1000 MG PO ×3 (06:22→21:34)
[2025-01-13] MEDS: Carvedilol 12.5 MG Tablet PO ×2 (08:27→16:47)
[2025-01-13] MEDS: Aspirin 81 MG TAB.CHEW PO (08:28)
[2025-01-13] MEDS: Amiodarone 200 MG Tablet PO (08:28)
[2025-01-13] MEDS: Arthritis Pain Compound 60 CLICK TUBE TOPICAL ×2 (08:29→21:32)
[2025-01-13] MEDS: Umeclidinium Bromide Inhaler 1 PUFF INHALATION (08:29)
[2025-01-13] MEDS: Fluticasone/Salmeterol 232-14 Inhaler 1 PUFF INHALATION ×2 (08:30→21:32)
[2025-01-13] MEDS: Empagliflozin 25 MG Tablet PO (08:45)
[2025-01-13] MEDS: Pantoprazole Sodium 40 MG Tablet PO (08:45)
[2025-01-13] MEDS: DULoxetine Hcl 30 MG Capsule PO (08:45)
[2025-01-13] MEDS: Furosemide 20 MG Tablet PO (08:45)
[2025-01-13] MEDS: Lisinopril 2.5 MG Tablet PO (08:46)
[2025-01-13] MEDS: Cholecalciferol (Vit D3) 125 MCG CAPSULE (5,000 UNITS) PO (08:46)
[2025-01-13 10:00] VITALS: PULSE 58
[2025-01-13] MEDS: Tamsulosin HCl 0.4 MG Capsule 0.8 MG PO (16:48)
[2025-01-13 18:00] VITALS: BP 106/64; PULSE 60; RESP 17; TEMP 36.3; O2SAT 95
[2025-01-13] MEDS: Atorvastatin Calcium 80 MG Tablet PO (21:32)
[2025-01-13] MEDS: Senna/Docusate Sodium 1 Tablet 2 TABLET PO (21:33)
[2025-01-13 22:00] VITALS: PULSE 60; RESP 16; O2SAT 95
[2025-01-14 06:00] VITALS: BP 132/75; PULSE 59; RESP 16; TEMP 36.4; O2SAT 96
[2025-01-14] MEDS: Enoxaparin 40 MG/0.4 ML Syringe SC (06:29)
[2025-01-14] MEDS: oxyCODONE 5 MG Tablet 10 MG PO ×2 (06:29→20:54)
[2025-01-14] MEDS: Acetaminophen 500 MG Tablet 1000 MG PO ×3 (06:30→20:55)
[2025-01-14] MEDS: tiZANidine HCl 2 MG Tablet PO ×3 (06:30→20:56)
[2025-01-14] MEDS: Gabapentin 300 MG Capsule PO ×3 (06:30→20:54)
[2025-01-14] MEDS: Pantoprazole Sodium 40 MG Tablet PO (08:48)
[2025-01-14] MEDS: Furosemide 20 MG Tablet PO (08:48)
[2025-01-14] MEDS: Amiodarone 200 MG Tablet PO (08:48)
[2025-01-14] MEDS: Fluticasone/Salmeterol 232-14 Inhaler 1 PUFF INHALATION ×2 (08:48→20:55)
[2025-01-14] MEDS: Cholecalciferol (Vit D3) 125 MCG CAPSULE (5,000 UNITS) PO (08:48)
[2025-01-14] MEDS: Umeclidinium Bromide Inhaler 1 PUFF INHALATION (08:48)
[2025-01-14] MEDS: Carvedilol 12.5 MG Tablet PO ×2 (08:49→17:16)
[2025-01-14] MEDS: Aspirin 81 MG TAB.CHEW PO (08:49)
[2025-01-14] MEDS: Empagliflozin 25 MG Tablet PO (08:49)
[2025-01-14] MEDS: DULoxetine Hcl 30 MG Capsule PO (08:49)
[2025-01-14] MEDS: Arthritis Pain Compound 60 CLICK TUBE TOPICAL ×2 (08:50→20:55)
[2025-01-14 10:00] VITALS: PULSE 55; RESP 14; O2SAT 95
[2025-01-14] MEDS: Lisinopril 2.5 MG Tablet PO (10:47)
--- NOTE | 2025-01-14 15:18 | DCINST_ITS ---
Discharge Instructions Diet Discharge Diet: - (Low-fat, low-salt, carbohydrates consistent) DC O2, CPAP, BIPAP needs Home O2 Discharge instructions: No Dressing / Incision Discharge Activity: May Not Drive and Use Walker Weight Bearing Status: Full weight bearing Keep extremity elevated above heart level: Legs Dressing / Incision Call your doctor if your incision/area has: Continuous Slow Oozing, Sudden Increased Bleeding, Increased Pain/ Swelling, Increased Redness and Foul Smelling Discharge Call your doctor if you observe: Fever of 101 or Higher, Inability to have a bowel movement, Shortness of breath, Dizziness, Fainting spells, Swelling in the ankles, Chest pain, Increased palpitations (irregular heartbeat), Calf discomfort and Uncontrolled pain Suture Line Care: Avoid Pulling/Pushing and Avoid Pinching/Bending Change Dressing in: 1 day Cleanse incision/area with: Soap & Water and Keep Dressing Clean & Dry Catheter: - (Can use the leg bag or the large bag with the Fernandez catheter. The large bag is probably better at night because it holds more. ) Additional Dressing/Incision Instructions:: Cleanse the incision daily with soap and water and then cover with a dry dressing. Remove the cervical collar ONLY when cleaning and changing dressing. The surgeon will tell you when you can discontinue the rigid collar. Follow Up Care When: you have multiple appts that have been scheduled for you. They are listed at the end of this document. Test Results: Test results from this visit will be discussed in further detail at your follow- up appointment, if applicable. Discharge Plan Admission Admit Date/Time: 12/24/24 16:25 Primary Reason for Your Visit: DEBILITY DUE TO CERVICAL LAMINECTOMY AND FUSION. Attending Provider: Tabitha Bobo Primary Care Provider: Reagan Soto Instructions Patient Instructions: Caring for Your Incision, COPD: Using Inhalers, Chronic Lung Disease Avoid These, ED Urinary Retention, Male Additional Instructions / Restrictions: 1. Your chest XRAY and CT scan of the chest shows changes consistent with emphysema. you also have multiple pulmonary nodules. there is a 1 cm nodule in the base of the left lung. you will need to have a follow up CT of the chest in 3 months. I am referring you to a lung specialist to evaluate you for COPD/emphysema and to follow the pulmonary nodules. You will be seeing Dr. Chandra Frazier in April. He will likely want you to have pulmonary function tests. You will be due for the repeat CT scan of the chest in March. you had the initial CT of the chest on 12/28/24. Dr. Soto can order a follow up CT scan for you or you can wait until you see Dr. Frazier. You are being discharged on 2 different inhalers. You will continue to use these inhalers as directed at [facility]. Always rinse you mouth after using the inhalers. I have given you a handout that discusses the triggers for an acute exacerbation of COPD. Please become familiar with the triggers and avoid them. I think the trigger for the exacerbations you had in the hospital was the plants in your room. 2. Make sure your checks the incision every day. If there is increasing redness around the incision, ANY opening of the skin, increased swelling around the incision or any discharge call your doctor for instructions about what to do. 3. Continue wearing the cervical collar at all times EXCEPT when you are cleaning the area and changing the dressing. Dr. Arriola will tell you when you can start weaning off the collar. 4. DO NOT TAKE ANY OVER THE COUNTER MEDICATIONS LIKE MOTRIN, ADVIL, ALLEVE, ETC. These medications are called NSAID's and then can impair the bone fusion. If you have any doubt about and over the counter medication ask the pharmacist if is a NSAID. You can take Tylenol and Oxycodone. 5. you are going to need to follow up with pain management for the low back pain. 6. You have been off Metformin while on rehab. Your Blood sugars are well controlled on Jardiance alone. If you stick to the same diet you have been eating while on rehab your blood sugars should remain controlled. Check your blood sugars at home and keep a record to take to Dr. Soto at your next appt. Jardiance in addition to controlling blood sugars helps to prevent progression of kidney disease yoav to diabetes and it also helps with patients with a history of heart failure. 7. you may need to take a stool softener when you get home. Sugar Free Metamucil or MiraLAX both work well and are available over the counter. 8. I think you would benefit from psychotherapy with a certified social workers in health care or a psychologist. You have anxiety and depression and you have a lot going on in your life that keeps you anxious. You need to learn how to deal with these issues without decompensating. A therapist can help you work through this. 9. If you have any questions after leaving rehab please do not hesitate to call. OFFICE: [phone] CELL: [phone] NURSES STATION ON REHAB: [phone] Discharge Orders/Prescriptions Prescriptions: New carvedilol 12.5 mg Tablet 12.5 mg PO BIDCM Qty: 60 0RF amiodarone 200 mg Tablet 200 mg PO BREAKFAST Qty: 30 0RF acetaminophen 500 mg Tablet 1,000 mg PO Q8 Qty: 180 0RF Rx Instructions: 2 tabs every 8 hours for pain control lisinopril 2.5 mg Tablet 2.5 mg PO DAILY Qty: 30 0RF cholecalciferol (vitamin D3) 125 mcg (5,000 unit) Capsule 125 mcg PO DAILY Qty: 30 0RF duloxetine 30 mg Capsule,Delayed Release(Dr/Ec) 30 mg PO DAILY Qty: 30 0RF fluticasone propion-salmeterol 232-14 mcg/actuation Aerosol Powdr Breath Activated 1 inh inhalation Q12 Qty: 1 0RF Rx Instructions: Rinse your mouth after every use. oxycodone 5 mg Tablet 10 mg PO 0700,2200 7 Days Qty: 28 0RF Rx Instructions: take 1-2 tabs every 4 hours as needed for pain. 1 tab if pain is 3-5 and 2 tabs if pain is > 5 tizanidine 2 mg Tablet 2 mg PO BID Qty: 14 0RF tamsulosin 0.4 mg Capsule 0.8 mg PO DAILY@1730 Qty: 60 0RF Rx Instructions: 2 tabs daily with supper. pantoprazole 40 mg Tablet,Delayed Release (Dr/Ec) 40 mg PO DAILY Qty: 30 0RF Incruse Ellipta 62.5 mcg/actuation Blister With Device 62.5 mcg inhalation DAILY Qty: 1 0RF Rx Instructions: 1 inhalation daily Continued aspirin 81 MG tablet 81 mg PO DAILY@0800 0RF gabapentin 300 mg capsule 300 mg PO Q8H Qty: 90 0RF rosuvastatin 40 mg tablet 40 mg PO QHS Qty: 30 0RF Jardiance 25 mg tablet 25 mg PO DAILY Qty: 30 0RF furosemide [Lasix] 20 mg tablet 20 mg PO DAILY Qty: 90 3RF Discontinued carvedilol 25 mg tablet 12.5 mg PO BID metformin 500 mg tablet extended release 24 hr 500 mg PO BID Patient Comments: Take 1 tablet by mouth twice a day amiodarone 400 mg tablet 200 mg PO DAILY oxycodone 5 mg tablet 5 - 10 mg PO Q4H PRN (Reason: pain) lisinopril 40 mg tablet 5 mg PO DAILY Referrals / Follow Up: Carmelo Arriola [Other] - In 1 Week (office will call to schedule appointment ) X-Ray [Other] - In 1 Week (office will call to make appointment ) Chandra Frazier DO [Med Staff - Active Staff] - 04/25/25 10:45 am (COPD) Dharmesh Kohli MD [Med Staff - Active Staff] - 01/17/25 2:15 pm Reagan Soto MD [Primary Care Provider] - 01/16/25 9:30 am (Needs appt [facility] or HHC cannot start until pt is seen in the office) Disposition Disposition (needs filled in before D/C Order can be placed): Home Health Service
--- NOTE | 2025-01-14 16:05 | PCM.PROGNOTE ---
Subjective Subjective Afebrile VSS -blood pressure is within goal. Heart rate has ranged from 55-62 over the past 48 hours. Denies lightheadedness and shortness of breath with exertion. Maintaining appropriate oxygen saturation on RA Oral intake - FOOD good FLUIDS good Blood sugar record was reviewed and the blood sugars are under excellent control. Discussed with nursing - no problems that need addressed Reviewed the THERAPY notes Medication list reviewed. Denies lightheadedness, shortness of breath, cough, palpitations, chest pain, calf pain, suprapubic pain, nausea/vomiting and abdominal pain. Sleeping well at night. Happy to be going home. Objective Data Objective Data Vital Signs: Vital Signs Temp Pulse Resp BP Pulse Ox O2 Del Method O2 Flow Rate 97.6 F L 55 L 14 132/75 H 95 Room Air 1 01/14/25 06:00 01/14/25 10:00 01/14/25 10:00 01/14/25 06:00 01/14/25 10:00 01/14/25 10:00 01/03/25 13:00 FiO2 40 12/28/24 20:23 Oxygen Flow Rate (L/min) 1 Oxygen Delivery Method Room Air Weight: 201 lb 8.04 oz Body Mass Index (BMI) 23.8 Intake & Output: Intake and Output for Last 24 Hours 01/12/25 01/13/25 01/14/25 23:59 23:59 23:59 Intake Total 2600 / 2600 1460 / 1460 1370 / 1370 Output Total 2625 / 2625 2300 / 2300 1750 / 1750 Balance -25 / -25 -840 / -840 -380 / -380 Lab / Micro Data 01/11/25 05:57 01/11/25 05:57 Micro: Microbiology 01/05/25 12:22 Sputum, Expectorated/Coughed Gram Stain - Final 01/05/25 12:22 Sputum, Expectorated/Coughed Respiratory Culture - Final Mixed normal respiratory sudhakar. No Streptococcus pneumoniae, beta-hemolytic Streptococcus or Staphylococcus aureus isolated. 01/03/25 08:11 Nasal Secretion MRSA (PCR) - Final 12/28/24 15:15 Mucosa - Nasopharyngeal Respiratory Panel (PCR) - Final 12/28/24 15:15 Mucosa - Nose Coronavirus COVID-19 PCR - Final Physical Exam Const alert, oriented x3 and no apparent distress General Appearance: cooperative HEENT moist oral mucous membranes Neck Neck Narrative: [place] J collar in place. Resp clear to auscultation bilaterally Resp Narrative: Fair to good air exchange throughout. No conversational dyspnea. Not tachypneic. No cough with deep breaths. Cardio regular rate, regular rhythm, no rub and no gallops Cardio Narrative: Occasional ectopics. GI normal to inspection, nondistended, normoactive bowel sounds, soft to palpation and non-tender GI Narrative: No guarding with palpation. Extremity no calf tenderness General Extremity: Negative for edema Skin Rashes: no rashes Wound Narrative: Verner have been removed from the incision and the incision remains intact with no dehiscence. There is no duran-incisional erythema, no discharge and no significant swelling in the duran-incisional area. Neuro CN's II-XII intact bilaterally Psych cooperative Psych Narrative: Less tearful. Tolerating Duloxetine with no adverse side effects. Sleeping better at night with no need for Ambien since 01/09/25. Less anxious. Happy to be going home tomorrow. Good eye contact and engaged in conversation. Assessment & Plan Assessment/Plan (1) Debility: (2) Cervical stenosis of spinal canal: (3) Myelopathy concurrent with and due to spinal stenosis of cervical region: (4) Radiculopathy due to cervical spondylosis at multiple levels: (5) H/O laminectomy: (6) Hypoxemia: (7) Pulmonary nodules/lesions, multiple: (8) Urine retention: (9) Acute blood loss anemia: (10) Diabetes mellitus, type II: QUALIFIERS: Diabetes mellitus retirement insulin use: without termite exterminator use Diabetes mellitus complication status: without complication Qualified Code(s): E11.9 - Type 2 diabetes mellitus without complications (11) Dilated cardiomyopathy: (12) Anxiety and depression: (13) COPD with acute exacerbation: (14) Bronchospasm, acute: (15) Hyperlipidemia: QUALIFIERS: Hyperlipidemia type: unspecified Qualified Code(s): E78.5 - Hyperlipidemia, unspecified (16) Hypertension: QUALIFIERS: Hypertension type: primary hypertension Qualified Code(s): I10 - Essential (primary) hypertension (17) Bladder cancer: QUALIFIERS: Bladder location: unspecified site Qualified Code(s): C67.9 - Malignant neoplasm of bladder, unspecified (18) COPD (chronic obstructive pulmonary disease): QUALIFIERS: COPD type: unspecified COPD Qualified Code(s): J44.9 - Chronic obstructive pulmonary disease, unspecified PLAN: Plan 1. Plan discharge home tomorrow with [facility] home health care for PT/OT/SN. 2. Follow-up has been scheduled with Dr. Soto (PCP), Dr. Kohli (urology for urine retention) and with Dr. Chandra Frazier from pulmonary medicine. 3. His is scheduling an appointment to see Dr. Martinez in 1 week. He will also need an x-ray at that time. 4. Will discharge with Fernandez catheter. 5. Check a UA today. 6. Prescriptions were faxed to [facility] pharmacy. Charges/Coding Visit Charges Inpatient E&M: [id number] [facility] L1
[2025-01-14 16:20] LABS: Mucous, Urine 0 SEEN /hpf (<or=2+); Squamous Epithelial Cells - UA 0 SEEN /hpf (0-5); White Blood Cells 0 SEEN /hpf (0-5)
[2025-01-14 16:23] LABS: Color, Urine Yellow (Yellow); Glucose, Dipstick 1000 mg/dl (Normal); Ketone-Dipstick Negative (Negative); Leukocyte Esterase-Dipstick Negative /ul (Negative); Nitrite-Dipstick Negative (Negative); Occult Blood-Urine 250 /ul (Negative); Protein-Dipstick 30 mg/dl (Negative); Urine Bilirubin Dipstick Negative (Negative); Urine Clarity Sl. Cloudy (Clear); Urine Urobilinogen Normal (Normal)
[2025-01-14 16:28] LABS: Red Blood Cells-Urine 25-50 SEEN /hpf (0-5)
[2025-01-14 16:31] LABS: Bacteria RARE /hpf (None Seen)
[2025-01-14] MEDS: Tamsulosin HCl 0.4 MG Capsule 0.8 MG PO (17:16)
[2025-01-14 17:41] VITALS: BP 144/80; PULSE 60; RESP 16; TEMP 36.8; O2SAT 96
[2025-01-14 19:58] VITALS: PULSE 63; RESP 12; O2SAT 96
[2025-01-14] MEDS: Atorvastatin Calcium 80 MG Tablet PO (20:56)
[2025-01-15] MEDS: oxyCODONE 5 MG Tablet PO (01:57)
[2025-01-15] MEDS: Acetaminophen 500 MG Tablet 1000 MG PO ×2 (05:20→14:36)
[2025-01-15] MEDS: Enoxaparin 40 MG/0.4 ML Syringe SC (05:20)
[2025-01-15] MEDS: Gabapentin 300 MG Capsule PO ×2 (05:21→14:36)
[2025-01-15 06:00] VITALS: BP 152/87; PULSE 60; RESP 17; TEMP 36.6; O2SAT 93
[2025-01-15] MEDS: oxyCODONE 5 MG Tablet 10 MG PO (06:15)
[2025-01-15] MEDS: tiZANidine HCl 2 MG Tablet PO ×2 (06:16→12:09)
[2025-01-15] MEDS: DULoxetine Hcl 30 MG Capsule PO (08:40)
[2025-01-15] MEDS: Cholecalciferol (Vit D3) 125 MCG CAPSULE (5,000 UNITS) PO (08:40)
[2025-01-15] MEDS: Pantoprazole Sodium 40 MG Tablet PO (08:40)
[2025-01-15] MEDS: Lisinopril 2.5 MG Tablet PO (08:40)
[2025-01-15] MEDS: Carvedilol 12.5 MG Tablet PO (08:40)
[2025-01-15] MEDS: Furosemide 20 MG Tablet PO (08:40)
[2025-01-15] MEDS: Aspirin 81 MG TAB.CHEW PO (08:40)
[2025-01-15] MEDS: Amiodarone 200 MG Tablet PO (08:40)
[2025-01-15] MEDS: Umeclidinium Bromide Inhaler 1 PUFF INHALATION (08:41)
[2025-01-15] MEDS: Empagliflozin 25 MG Tablet PO (08:41)
[2025-01-15] MEDS: Arthritis Pain Compound 60 CLICK TUBE TOPICAL (08:41)
[2025-01-15] MEDS: Fluticasone/Salmeterol 232-14 Inhaler 1 PUFF INHALATION (08:41)
[2025-01-15 08:48] VITALS: BP 102/78; PULSE 66; RESP 16; TEMP 36.6; O2SAT 97
--- NOTE | 2025-01-15 08:50 | PCM.DC.SUM ---
Providers Date of Admission: 12/24/24 Date of Discharge: 01/15/25 Primary Care Physician: Dr. Reagan Soto MD none Reason For Visit: LAMINECTOMY Diagnosis Discharge Diagnosis (1) Debility: Status: Acute Code(s): R53.81 - Other malaise (2) Cervical stenosis of spinal canal: Status: Chronic Code(s): M48.02 - Spinal stenosis, cervical region Plan: Long standing prior to seeking attention with his physician. (3) Myelopathy concurrent with and due to spinal stenosis of cervical region: Status: Chronic Code(s): M48.02 - Spinal stenosis, cervical region; G99.2 - Myelopathy in diseases classified elsewhere (4) Radiculopathy due to cervical spondylosis at multiple levels: Status: Chronic Code(s): M47.22 - Other spondylosis with radiculopathy, cervical region (5) H/O laminectomy: Status: Inactive Code(s): Z98.890 - Other specified postprocedural states Plan: 12/20/2024 at [facility] by Dr. Arriola. C2-T1 posterior spinal fusion. (6) Hypoxemia: Status: Resolved Code(s): R09.02 - Hypoxemia Plan: Due to acute exacerbation of suspected COPD. Has never had PFTs. Chest CT is consistent with emphysema. (7) Pulmonary nodules/lesions, multiple: Status: Chronic Code(s): R91.8 - Other nonspecific abnormal finding of lung field Plan: CT scan of the chest showed a new 1 cm nodule in the left base. Appointment has been made for him to follow-up with pulmonary medicine, Dr. Chandra Frazier. Will need a follow-up CT scan for surveillance in approximately 3 months. (8) Urine retention: Status: Chronic Code(s): R33.9 - Retention of urine, unspecified Plan: Had been having urinary hesitancy, nocturia, slow stream and dribbling from months prior to the recent surgery. He has a history of bladder cancer in the past and had intravesical radiation approximately 10 years ago. Has not followed up with Dr. Kohli in several years. Failed voiding trials on Flomax 0.4 mg daily and Flomax 0.8 mg daily. He is being discharged with a Fernandez catheter and will follow-up with Dr. Fran Mejia postdischarge. (9) Acute blood loss anemia: Status: Acute Code(s): D62 - Acute posthemorrhagic anemia Plan: Stable. Hemoglobin at discharge is 12.1. (10) Diabetes mellitus, type II: Status: Chronic Code(s): E11.9 - Type 2 diabetes mellitus without complications Qualifiers: Diabetes mellitus complication status: without complication Diabetes mellitus alf insulin use: without alf use Qualified Code(s): E11.9 - Type 2 diabetes mellitus without complications Plan: Blood sugars are under excellent control at discharge on a carb consistent diet and Jardiance 25 mg daily. Metformin was discontinued while on acute rehab. (11) Dilated cardiomyopathy: Status: Chronic Code(s): I42.0 - Dilated cardiomyopathy (12) Anxiety and depression: Status: Chronic Code(s): F41.9 - Anxiety disorder, unspecified; F32.A - Depression, unspecified Plan: Has had recurrent depression several times during his lifetime. Was not on an antidepressant at admission to rehab. He was on sertraline in the past. He was started on duloxetine 30 mg daily for anxiety/depression/chronic pain management. (13) COPD with acute exacerbation: Status: Chronic Code(s): J44.1 - Chronic obstructive pulmonary disease with (acute) exacerbation Plan: Has never been diagnosed with COPD and has never had PFT's. He was a smoker for a long time. CT of the chest shows changes consistent with emphysema and he also has nodules. [facility] Exacerbation resolved with steroids and bronchodilators. W/U for infection was negative. He is being discharged with RX's for a fluticasone/Salmeterol inhaler and a umeclidinium inhaler. Lungs at the time of discharge are clear to auscultation with good air exchange. (14) Bronchospasm, acute: Status: Resolved Code(s): J98.01 - Acute bronchospasm (15) Hyperlipidemia: Status: Chronic Code(s): E78.5 - Hyperlipidemia, unspecified Qualifiers: Hyperlipidemia type: unspecified Qualified Code(s): E78.5 - Hyperlipidemia, unspecified (16) Hypertension: Status: Chronic Code(s): I10 - Essential (primary) hypertension Qualifiers: Hypertension type: primary hypertension Qualified Code(s): I10 - Essential (primary) hypertension (17) Bladder cancer: Status: Chronic Code(s): C67.9 - Malignant neoplasm of bladder, unspecified Qualifiers: Bladder location: unspecified site Qualified Code(s): C67.9 - Malignant neoplasm of bladder, unspecified Plan: Treated approximately [address] Kohli with intravesical radiation per the patient. No recent follow-up. (18) COPD (chronic obstructive pulmonary disease): Status: Suspected Code(s): J44.9 - Chronic obstructive pulmonary disease, unspecified Qualifiers: COPD type: unspecified COPD Qualified Code(s): J44.9 - Chronic obstructive pulmonary disease, unspecified Plan: Needs PFTs. (19) Insomnia: Status: Resolved Code(s): G47.00 - Insomnia, unspecified Qualifiers: Insomnia type: drug-induced Qualified Code(s): F19.982 - Other psychoactive substance use, unspecified with psychoactive substance-induced sleep disorder (20) Chronic low back pain: Status: Chronic Code(s): M54.50 - Low back pain, unspecified; G89.29 - Other chronic pain Qualifiers: Back pain laterality: bilateral Sciatica presence: without sciatica Qualified Code(s): M54.50 - Low back pain, unspecified; G89.29 - Other chronic pain Plan: He will continue to follow-up with pain management. Was receiving epidurals from pain management. NO NSAID's going forward until Okayed with Dr. Arriola. NSAID's delay fusion. Plan 1. DC home with [facility] for PT/OT/SN. 2. Will follow up with Dr. Arriola, Dr. Soto, Dr. Kohli, Dr. Chandra Frazier and pain management. 3. I recommended to Frank that he seek psychotherapy post DC from rehab for recurrent anxiety/depression. He seemed open to this Medications at Discharge Home Medications aspirin 81 mg tablet,delayed release 81 mg PO DAILY@0800 heart 09/15/17 furosemide 20 mg tablet (Lasix) 20 mg PO DAILY diuretic #90 tabs 08/23/24 acetaminophen 500 mg tablet 1,000 mg (2 x 500 mg) PO Q8 #180 tabs 01/14/25 amiodarone 200 mg tablet 200 mg PO BREAKFAST #30 tabs 01/14/25 carvedilol 12.5 mg tablet 12.5 mg PO BIDCM #60 tabs 01/14/25 cholecalciferol (vitamin D3) 125 mcg (5,000 unit) capsule 125 mcg PO DAILY #30 caps 01/14/25 duloxetine 30 mg capsule,delayed release 30 mg PO DAILY #30 caps 01/14/25 empagliflozin 25 mg tablet (Jardiance) 25 mg PO DAILY dm #30 tabs 01/14/25 fluticasone 232 mcg-salmeterol 14 mcg/actuation breath activated powdr 1 inh inhalation Q12 #1 ea 01/14/25 gabapentin 300 mg capsule 300 mg PO Q8H pain #90 caps 01/14/25 lisinopril 2.5 mg tablet 2.5 mg PO DAILY #30 tabs 01/14/25 oxycodone 5 mg tablet 10 mg (2 x 5 mg) PO 0700,2200 7 days #28 tabs 01/14/25 pantoprazole 40 mg tablet,delayed release 40 mg PO DAILY #30 tabs 01/14/25 rosuvastatin 40 mg tablet 40 mg PO QHS cholesterol #30 tabs 01/14/25 tamsulosin 0.4 mg capsule 0.8 mg (2 x 0.4 mg) PO DAILY@1730 #60 caps 01/14/25 tizanidine 2 mg tablet 2 mg PO BID #14 tabs 01/14/25 umeclidinium 62.5 mcg/actuation blister powder for inhalation (Incruse Ellipta) 62.5 mcg inhalation DAILY #1 ea 01/14/25 Hospital Course Operations - (C2-T1 posterior spinal fusion on 12/20/2024 at [facility] by Dr. Arriola) Summary of Care Provided Minutes Spent on Discharge: 45 Hospital Course: FRANK ZIMMER, is a 64 YO M with a PMH of coronary artery disease, PCI x 4, ventricular tachycardia, AICD placement, left bundle branch block, ischemic cardiomyopathy (he 30% EF on echocardiogram in 2021), history of EPS with successful ablation of VT on 02/22/2022, hx of recurrent Vt following ablation when amiodarone was discontinued, hypertension, diabetes mellitus type 2, hyperlipidemia, chronic low back pain (he follows with Dr. Medina), recurrent depression and cervical canal stenosis with myelopathy and neuropathy. He underwent C2-T1 posterior spinal fusion on 12/20/2024 at [facility]. Postoperative complication included mild acute blood loss anemia. He was transferred to the acute inpt rehab unit at [facility] on 12/24/24 for 3 hours of therapy daily to restore function/independence at or near his level prior to surgery. Prior to surgery he was in a WC and could not move his R leg. He had decreased sensation in both hands and in the RUE and RLE. Sx started approximately 3 years prior to surgery and had progressed since then. He had also been falling at home and had had severe radicular pain, rohini in the RLE. MRI of the cervical spine done on 12/10/2023 showed acquired severe multilevel spinal stenosis, greatest at C6-C7. There was also acquired severe multilevel bilateral foraminal narrowing and multifocal areas of increased cord signal throughout the cervical spine likely related to myelomalacia from severe multilevel spinal stenosis. He was taking Tramadol 50 mg Q6 PRN prior to surgery and has had epidurals for low back pain in the past from Dr. Medina. ECHO on 12/21/2024 showed an EF of 45 to 50% with basal inferior segment mildly hypokinetic. There was normal diastolic function. The right ventricle was normal. Left atrial cavity was mildly dilated and a bubble study was negative for PFO/ASD. While on rehab Frank had acute bronchospasm with hypoxemia. Infectious W/U was negative. Cardiac enzymes were normal. EKG showed no ischemic changes. CTA of the chest showed no evidence of pulmonary embolism. There were emphysematous changes with findings suggestive of scarring and bronchiectasis in the lower lobes, more pronounced at the left lung base. There were multiple subcentimeter nodules and a 1 cm nodular density in the posterior medial segment of the left lower lobe. A repeat CT scan of the thorax in 3 months was recommended. Frank smoked for 43 years prior to quitting in 2018. He denied any hx of COPD and also denied SOB but, his activity level has been severely restricted in the past few years. He was treated with high-dose steroids, bronchodilators, mucolytic's and supplemental oxygen. He was able to be weaned off oxygen prior to discharge. He is being discharged with prescriptions for a fluticasone/Salmeterol inhaler and a umeclidinium inhaler. Follow-up has been scheduled for him with Dr. Chandra Frazier. He will likely need PFTs going forward and will also need a follow-up CT scan of the chest for the 1 cm nodule in the left base. Frank had urine retention at admission to rehab. He had been treated by Dr. Kohli in the past for bladder CA but, had not seen Dr. Kohli for several years. He admitted to having urinary hesitancy, slow stream, nocturia several times a night and dribbling after urinating but, had not sought medical attention for this. He was started on Flomax 0.4 mg and after 5 to 6 days a voiding trial was done. He failed voiding trial and the Fernandez catheter was reinserted. Flomax was increased to 0.8 mg however he failed a second voiding trial and the Fernandez was reinserted. He is being discharged with a Fernandez catheter and will follow-up with Dr. Kohli postdischarge. Frank admitted to feeling quite depressed at admission to rehab. He was also very anxious, tearful, emotionally labile and having difficulty sleeping. He had been on sertraline in the past but had not been on any medication recently. He was started on duloxetine for treatment of anxiety/depression/chronic pain management. I think he would benefit greatly from psychotherapy. Frank progressed well with therapy. At the time of DC he is ambulating with a front wheeled walker at contact-guard assist for short distances (7 to 10 feet) without wheelchair follow. He was able to walk 62 feet with a wheeled walker at contact-guard assist/min assist with a wheelchair followed by a second staff member. He is standby assist for bed mobility and contact-guard assist/min assist for sit to stand. He requires minimal assistance/contact-guard assist with sliding board transfers from various surfaces. He has not done stairs but he has a ramp at home so he does not need to do stairs to be discharged home. He is able to do 5 sit to stands in 30 seconds from the wheelchair using his upper extremities to rise at contact-guard assist. He is able to complete grooming tasks at a supervision/set up level while seated at the sink. He is also supervision/set up for eating. He requires minimal assistance with bathing and he is supervision/set up with upper body dressing. He requires minimal assistance with lower body dressing. He is still moderate assistance for toilet transfer and toileting. He is contact-guard assist for tub/shower transfer. Frank's Britt will be able to assist him at home. He was discharged with [facility] home health care referral for PT/OT/SN. He purchased all the DME he required and a ramp was installed so that he can enter his house. We also requested the psychiatric social worker follow-up with him for anxiety/depression. Frank is still requiring Oxycodone at [place]. In addition to oxycodone he is taking acetaminophen 1000 mg every 8 hours. He complains of pain in his low back and both knees. His lower extremities are weak and his knees are soft. We discussed using a NSAID to help with pain management with Dr. Arriola but, he is to take NO NSAID's because they will impair fusion. I recommended he continue to follow up with Dr. Medina for pain management. Follow-up appointments were scheduled for Tabitha to follow-up with Dr. Soto on 01/16/2025, Dr. Chandra Frazier on 04/25/[address] Bandar Kohli on 01/17/2025. Dr. Arriola's office will call Frank to schedule and appt to be seen in 1 week. Frank will call Dr. Medina to schedule an appt for pain management. Physical Exam Const alert, oriented x3 and no apparent distress General Appearance: cooperative HEENT moist oral mucous membranes HEENT Narrative: No thrush Eyes PERRL, EOMs intact bilaterally, conjunctivae normal and no scleral icterus Eyes Narrative: No discharge from the eyes Neck Neck Narrative: Snyder J collar in place. Chest Chest: symmetrical chest wall rise Resp clear to auscultation bilaterally Resp Narrative: Fair to good air exchange throughout. No conversational dyspnea. Not tachypneic. No cough with deep breaths. Cardio regular rate, regular rhythm, no murmurs, no rub and no gallops Cardio Narrative: Occasional isolated ectopics with rare couplet. GI normal to inspection, nondistended, normoactive bowel sounds, soft to palpation and non-tender GI Narrative: No guarding with palpation. Narrative: UA prior to discharge showed no evidence of infection and the urine in the Fernandez tubing is pale yellow and clear at the time of discharge. Bladder / Kidney Exam: catheter in place Extremity no calf tenderness General Extremity: Negative for edema Skin Skin Narrative: The incision is intact with no dehiscence. There is no duran-incisional erythema and no discharge. There is no significant duran-incisional swelling. [place] have been removed. He has no rashes. Rashes: no rashes Neuro CN's II-XII intact bilaterally Neuro Narrative: The lower extremities continue to be very weak. He also has severe osteoarthritis in his knees and the knees are soft but, they are not buckling at DC. He is only ambulate 7-10' with a FWW if he does not have WC follow. Psych cooperative Psych Narrative: Less tearful. Tolerating Duloxetine with no adverse side effects. Sleeping better at night with no need for Ambien since 01/09/25. Less anxious. Happy to be going home tomorrow. Good eye contact and engaged in conversation. Weight / BMI Weight Weight: 201 lb 8.04 oz Body Mass Index (BMI) 23.8 ABG / Lab / Microbiology Data 01/11/25 05:57 01/11/25 05:57 Laboratory: Laboratory Results - last 24 hr 01/14/25 16:12: Urine Color Yellow, Urine Clarity Sl. Cloudy, Urine pH 7.0, Ur Specific [place] 1.010, Urine Protein 30 H, Urine Glucose (UA) 1000 H, Urine Ketones Negative, Urine Occult Blood 250 H, Urine Nitrite Negative, Urine Bilirubin Negative, Urine Urobilinogen Normal, Ur Leukocyte Esterase Negative, Urine RBC 25-50 SEEN, Urine WBC 0 SEEN, Ur Squamous Epith Cells 0 SEEN, Urine Bacteria RARE, Urine Mucus 0 SEEN Microbiology: Microbiology 01/05/25 12:22 Sputum, Expectorated/Coughed Gram Stain - Final 01/05/25 12:22 Sputum, Expectorated/Coughed Respiratory Culture - Final Mixed normal respiratory sudhakar. No Streptococcus pneumoniae, beta-hemolytic Streptococcus or Staphylococcus aureus isolated. 01/03/25 08:11 Nasal Secretion MRSA (PCR) - Final 12/28/24 15:15 Mucosa - Nasopharyngeal Respiratory Panel (PCR) - Final 12/28/24 15:15 Mucosa - Nose Coronavirus COVID-19 PCR - Final D/C Instructions Discharge Diet: - (Low-fat, low-salt, carbohydrates consistent) Weight Bearing Status: Full weight bearing Keep extremity elevated above heart level: Legs Call your doctor if your incision/area has: Continuous Slow Oozing, Sudden Increased Bleeding, Increased Pain/ Swelling, Increased Redness and Foul Smelling Discharge Call your doctor if you observe: Fever of 101 or Higher, Inability to have a bowel movement, Shortness of breath, Dizziness, Fainting spells, Swelling in the ankles, Chest pain, Increased palpitations (irregular heartbeat), Calf discomfort and Uncontrolled pain Suture Line Care: Avoid Pulling/Pushing and Avoid Pinching/Bending Cleanse incision/area with: Soap & Water and Keep Dressing Clean & Dry Catheter: - (Can use the leg bag or the large bag with the Fernandez catheter. The large bag is probably better at night because it holds more. ) Additional Dressing/Incision Instructions: Cleanse the incision daily with soap and water and then cover with a dry dressing. Remove the cervical collar ONLY when cleaning and changing dressing. The surgeon will tell you when you can discontinue the rigid collar. DC O2, CPAP, BIPAP Needs PSN CPAP & BiPAP: BiPAP & CPAP Settings per PSN Mode AIRVO 12/29/24 20:01 Bipap Delivery Device Nasal Pillows 12/28/24 20:23 Fraction of Inspired Oxygen ( 40 12/28/24 20:23 FIO2) Total Flow Rate 45 12/28/24 20:23 Home O2 Discharge instructions: No When: you have multiple appts that have been scheduled for you. They are listed at the end of this document. Meaningful Use Info Meaningful Use Meaningful Use Diagnoses (Choose all that apply): None applicable Ischemic Stroke Statin Dosing Therapy Reference: STATIN DOSE THERAPY REFERENCE: * Patients > 75 years receive moderate or high dose statin therapy. * Patients 75 years or YOUNGER should receive HIGH intensity statin dose unless contraindicated. You will be required to document reason for non-treatment if statin daily dose does not meet guidelines. HIGH DOSE STATIN THERAPY DAILY Atorvastatin > than or = to 40 mg Rosuvastatin > than or = to 20 mg Amlodipine + Atorvastatin > than or = to 2.5/40 mg Ezetimibe + Simvastatin 10/80 mg Simvastatin 80mg Discharge Plan Admission Admit Date/Time: 12/24/24 16:25 Primary Reason for Your Visit: DEBILITY DUE TO CERVICAL LAMINECTOMY AND FUSION. Attending Provider: Tabitha Bobo Primary Care Provider: Reagan Soto Instructions Patient Instructions: Caring for Your Incision, COPD: Using Inhalers, Chronic Lung Disease Avoid These, ED Urinary Retention, Male Additional Instructions / Restrictions: 1. Your chest XRAY and CT scan of the chest shows changes consistent with emphysema. you also have multiple pulmonary nodules. there is a 1 cm nodule in the base of the left lung. you will need to have a follow up CT of the chest in 3 months. I am referring you to a lung specialist to evaluate you for COPD/emphysema and to follow the pulmonary nodules. You will be seeing Dr. Chandra Frazier in April. He will likely want you to have pulmonary function tests. You will be due for the repeat CT scan of the chest in March. you had the initial CT of the chest on 12/28/24. Dr. Soto can order a follow up CT scan for you or you can wait until you see Dr. Frazier. You are being discharged on 2 different inhalers. You will continue to use these inhalers as directed at discharge. Always rinse you mouth after using the inhalers. I have given you a handout that discusses the triggers for an acute exacerbation of COPD. Please become familiar with the triggers and avoid them. I think the trigger for the exacerbations you had in the hospital was the plants in your room. 2. Make sure your checks the incision every day. If there is increasing redness around the incision, ANY opening of the skin, increased swelling around the incision or any discharge call your doctor for instructions about what to do. 3. Continue wearing the cervical collar at all times EXCEPT when you are cleaning the area and changing the dressing. Dr. Arriola will tell you when you can start weaning off the collar. 4. DO NOT TAKE ANY OVER THE COUNTER MEDICATIONS LIKE MOTRIN, ADVIL, ALLEVE, ETC. These medications are called NSAID's and then can impair the bone fusion. If you have any doubt about and over the counter medication ask the pharmacist if is a NSAID. You can take Tylenol and Oxycodone. 5. you are going to need to follow up with pain management for the low back pain. 6. You have been off Metformin while on rehab. Your Blood sugars are well controlled on Jardiance alone. If you stick to the same diet you have been eating while on rehab your blood sugars should remain controlled. Check your blood sugars at home and keep a record to take to Dr. Soto at your next appt. Jardiance in addition to controlling blood sugars helps to prevent progression of kidney disease yoav to diabetes and it also helps with patients with a history of heart failure. 7. you may need to take a stool softener when you get home. Sugar Free Metamucil or MiraLAX both work well and are available over the counter. 8. I think you would benefit from psychotherapy with a psychiatric social worker or a psychologist. You have anxiety and depression and you have a lot going on in your life that keeps you anxious. You need to learn how to deal with these issues without decompensating. A therapist can help you work through this. 9. If you have any questions after leaving rehab please do not hesitate to call. OFFICE: [phone] CELL: [phone] NURSES STATION ON REHAB: [phone] Discharge Orders/Prescriptions Prescriptions: New carvedilol 12.5 mg Tablet 12.5 mg PO BIDCM Qty: 60 0RF amiodarone 200 mg Tablet 200 mg PO BREAKFAST Qty: 30 0RF acetaminophen 500 mg Tablet 1,000 mg PO Q8 Qty: 180 0RF Rx Instructions: 2 tabs every 8 hours for pain control lisinopril 2.5 mg Tablet 2.5 mg PO DAILY Qty: 30 0RF cholecalciferol (vitamin D3) 125 mcg (5,000 unit) Capsule 125 mcg PO DAILY Qty: 30 0RF duloxetine 30 mg Capsule,Delayed Release(Dr/Ec) 30 mg PO DAILY Qty: 30 0RF fluticasone propion-salmeterol 232-14 mcg/actuation Aerosol Powdr Breath Activated 1 inh inhalation Q12 Qty: 1 0RF Rx Instructions: Rinse your mouth after every use. oxycodone 5 mg Tablet 10 mg PO 0700,2200 7 Days Qty: 28 0RF Rx Instructions: take 1-2 tabs every 4 hours as needed for pain. 1 tab if pain is 3-5 and 2 tabs if pain is > 5 tizanidine 2 mg Tablet 2 mg PO BID Qty: 14 0RF tamsulosin 0.4 mg Capsule 0.8 mg PO DAILY@1730 Qty: 60 0RF Rx Instructions: 2 tabs daily with supper. pantoprazole 40 mg Tablet,Delayed Release (Dr/Ec) 40 mg PO DAILY Qty: 30 0RF Incruse Ellipta 62.5 mcg/actuation Blister With Device 62.5 mcg inhalation DAILY Qty: 1 0RF Rx Instructions: 1 inhalation daily Continued aspirin 81 MG tablet 81 mg PO DAILY@0800 0RF gabapentin 300 mg capsule 300 mg PO Q8H Qty: 90 0RF rosuvastatin 40 mg tablet 40 mg PO QHS Qty: 30 0RF Jardiance 25 mg tablet 25 mg PO DAILY Qty: 30 0RF furosemide [Lasix] 20 mg tablet 20 mg PO DAILY Qty: 90 3RF Discontinued carvedilol 25 mg tablet 12.5 mg PO BID metformin 500 mg tablet extended release 24 hr 500 mg PO BID Patient Comments: Take 1 tablet by mouth twice a day amiodarone 400 mg tablet 200 mg PO DAILY oxycodone 5 mg tablet 5 - 10 mg PO Q4H PRN (Reason: pain) lisinopril 40 mg tablet 5 mg PO DAILY Referrals / Follow Up: Carmelo Arriola [Other] - In 1 Week (office will call to schedule appointment ) X-Ray [Other] - In 1 Week (office will call to make appointment ) Chandra Frazier DO [Med Staff - Active Staff] - 04/25/25 10:45 am (COPD) Dharmesh Kohli MD [Med Staff - Active Staff] - 01/17/25 2:15 pm Reagan Soto MD [Primary Care Provider] - 01/16/25 9:30 am (Needs appt [facility] or [facility] cannot start until pt is seen in the office) Disposition Disposition (needs filled in before D/C Order can be placed): Home Health Service Charges/Coding Visit Charges Inpatient E&M: 37955 Disch Hosp >30min
[2025-01-15 10:00] VITALS: PULSE 62; RESP 14; O2SAT 95
== END 2025-01-15 14:54 | disposition home health service (06) | DRG 560 ==
PROVIDERS: Internal Medicine; Admitting Provider Internal Medicine; PCP Family Medicine; Referring Provider Internal Medicine; Visit Provider Internal Medicine
DX: Z47.89 Encounter for other orthopedic aftercare (principal); D62 Acute posthemorrhagic anemia; J44.1 Chronic obstructive pulmonary disease with (acute) exacerbation; M47.12 Other spondylosis with myelopathy, cervical region; I11.0 Hypertensive heart disease with heart failure; I50.9 Heart failure, unspecified; E11.40 Type 2 diabetes mellitus with diabetic neuropathy, unspecified; I77.811 Abdominal aortic ectasia; F32.A Depression, unspecified; F19.982 Other psychoactive substance use, unspecified with psychoactive substance-induced sleep disorder; M47.22 Other spondylosis with radiculopathy, cervical region; F41.9 Anxiety disorder, unspecified; J98.01 Acute bronchospasm; M48.02 Spinal stenosis, cervical region; I25.10 Atherosclerotic heart disease of native coronary artery without angina pectoris; I25.5 Ischemic cardiomyopathy; E78.5 Hyperlipidemia, unspecified; M54.12 Radiculopathy, cervical region; Z85.51 Personal history of malignant neoplasm of bladder; R33.9 Retention of urine, unspecified; Z79.84 Long term (current) use of oral hypoglycemic drugs; G89.29 Other chronic pain; Z95.5 Presence of coronary angioplasty implant and graft; Z98.1 Arthrodesis status; G47.00 Insomnia, unspecified; Z87.891 Personal history of nicotine dependence; Z95.810 Presence of automatic (implantable) cardiac defibrillator; Z79.85 Long-term (current) use of injectable non-insulin antidiabetic drugs; Z79.899 Other long term (current) drug therapy; R91.8 Other nonspecific abnormal finding of lung field
CPT/HCPCS: 36415; 36600; 71045; 71046; 71275; 80048; 80053; 81001; 82803; 82962; 83735; 83880; 84100; 84484; 85025; 85027; 87070; 87205; 87633; 87635; 87641; 93005; 94640; 94660; 97110; 97112; 97116; 97162; 97166; 97530; 97535; 97542; 97802; 97803; P9047; Q9967; A4216

== ENCOUNTER → 2025-02-22 | Outpatient (CLI) | payer MEDICARE, SELFPAY ==
[2017-09-29 14:27] VITALS: BMI 32.5
[2025-02-22 17:51] LABS: Absolute Lymphocyte Count 1.92 X10^3/uL (0.83-4.51); Absolute Neutrophil Count 6.2 X10^3/uL (2.0-7.7); Basophil# 0.06 X10^3/uL; Basophil% 0.7 % (0-1); Eosinophil# 0.28 X10^3/uL; Hematocrit 41.6 % (40-54); Hemoglobin 13.5 g/dL (13.0-16.5); Lymphocyte # 1.92 X10^3/ul (0.83-4.51); Lymphocyte % 20.9 % (19-41); Mean Corp Hgb Conc 32.5 g/dL (32-36); Mean Corpuscular Hgb 31.2 pg (27.0-32.0); Mean Corpuscular Volume 96.1 fL (80-94); Mean Platelet Vol. 11.5 fl (6.2-12.0); Monocyte# 0.76 X10^3/uL; Monocyte% 8.3 % (0-10); NRBC Flagged by Analyzer 0 % (0-5); Neutrophil # 6.16 X10^3/uL (2.7-7.7); Neutrophil % 66.9 % (47-70); Platelet Count 209 K/mm3 (150-450); RBC Distribution Width CV 14.4 % (11.6-14.6); RBC Distribution Width SD 50.9 fl (35.1-43.9); Red Blood Count 4.33 M/mm3 (4.6-6.2); White Blood Count 9.2 K/mm3 (4.4-11.0)
[2025-02-22 18:03] LABS: Hemoglobin A1c 6.3 % (<=5.6)
[2025-02-22 18:05] LABS: ALB/GLOB Ratio 1.3 RATIO (0.9-2.4); AST(SGOT) 16 U/L (<=37); Alanine Aminotransfer ALT/SGPT 13 U/L (<=46); Alkaline Phosphatase 77 U/L (40-129); Anion Gap 13 (5-15); BUN 25 mg/dL (4-19); BUN/Creat Ratio 42.6 RATIO (10-20); Calcium,Total 9.3 mg/dL (7.6-11.0); Carbon Dioxide 23.9 mmol/L (21.0-32.0); Chloride 103 mmol/L (98-108); Cholesterol 132 mg/dL (<=200); Creatinine, Serum 0.59 mg/dL (0.70-1.20); EST Glomerular Filtration Rate 108 (>60); Glucose 87 mg/dL (70-99); High Density Lipoprotein 42 mg/dL; Low Density Lipoprotein Calc. 71 mg/dL; Magnesium 2.1 mg/dL (1.5-2.2); Sodium Level 139 mmol/L (133-145); Total Bilirubin 0.21 mg/dL (0.00-1.30); Triglycerides 96 mg/dL; Very Low Density Lipoprotein 19 mg/dL (5-40); cholesterol:hdl ratio screen 3.13
== END | disposition home or self-care (01) ==
LOC: MTLAB 14:49
PROVIDERS: PCP Family Medicine; Referring Provider Family Medicine; Visit Provider Family Medicine
DX: I25.10 Atherosclerotic heart disease of native coronary artery without angina pectoris (principal); I47.29 Other ventricular tachycardia; E11.8 Type 2 diabetes mellitus with unspecified complications
CPT/HCPCS: 36415; 80053; 80061; 83036; 83735; 85025

== ENCOUNTER → 2025-05-08 | Outpatient (CLI) | payer MEDICARE, SELFPAY ==
[2017-09-29 14:27] VITALS: BMI 32.5
[2025-05-08 22:47] LABS: Barbiturate Urine NEGATIVE (< 200 ng/mL); Benzodiazepine Urine NEGATIVE (< 200 ng/mL); PCP Urine NEGATIVE (< 25 ng/mL); THC Urine PRESUMPTIVE POSITIVE (< 50 ng/mL)
== END | disposition home or self-care (01) ==
LOC: LAB 17:44
PROVIDERS: PCP Family Medicine; Referring Provider Anesthesiology Pain Medicine; Visit Provider Anesthesiology Pain Medicine
DX: F11.20 Opioid dependence, uncomplicated (principal)
CPT/HCPCS: 80307

== ENCOUNTER → 2025-06-19 | Outpatient (CLI) | payer MEDICARE, SELFPAY ==
[2017-09-29 14:27] VITALS: BMI 32.5
[2025-06-19 18:04] LABS: Hematocrit 46.3 % (40-54); Hemoglobin 15.6 g/dL (13.0-16.5); Immature Granulocytes Count 0.040 X10^3/uL (0.0-0.0); Mean Corp Hgb Conc 33.7 g/dL (32-36); Mean Corpuscular Volume 93.5 fL (80-94); Mean Platelet Vol. 11.2 fl (6.2-12.0); NRBC Flagged by Analyzer 0 % (0-5); Platelet Count 205 K/mm3 (150-450); RBC Distribution Width CV 15.2 % (11.6-14.6); RBC Distribution Width SD 52.5 fl (35.1-43.9); Red Blood Count 4.95 M/mm3 (4.6-6.2); White Blood Count 9.5 K/mm3 (4.4-11.0)
[2025-06-19 18:17] LABS: Creatinine, Urine (random) 114.00 mg/dL (39.00-259.00); Microalbumin,Random Urine 35.4 mg/L (<20 mg/L)
[2025-06-19 18:55] LABS: Cholesterol 187 mg/dL (<=200); Low Density Lipoprotein Calc. 112 mg/dL; Triglycerides 98 mg/dL; Very Low Density Lipoprotein 20 mg/dL (5-40); cholesterol:hdl ratio screen 3.39
[2025-06-19 19:13] LABS: AST(SGOT) 13 U/L (<=37); Alanine Aminotransfer ALT/SGPT 9 U/L (<=46); Albumin, Serum 4.2 g/dL (3.4-4.8); Alkaline Phosphatase 80 U/L (40-129); Anion Gap 14 (5-15); BUN 24 mg/dL (4-19); BUN/Creat Ratio 36.4 RATIO (10-20); Calcium,Total 9.3 mg/dL (7.6-11.0); Carbon Dioxide 22.0 mmol/L (21.0-32.0); Chloride 102 mmol/L (98-108); Globulin 2.8 g/dL (2.2-4.2); Glucose 92 mg/dL (70-99); Potassium 4.2 mmol/L (3.3-5.1)
== END | disposition home or self-care (01) ==
LOC: MFPLAB 16:51
PROVIDERS: PCP Family Medicine; Referring Provider Family Medicine; Visit Provider Family Medicine
DX: E11.8 Type 2 diabetes mellitus with unspecified complications (principal); I25.10 Atherosclerotic heart disease of native coronary artery without angina pectoris
CPT/HCPCS: 36415; 80053; 80061; 82043; 82570; 83036; 85025

== ENCOUNTER 2025-08-07 15:30 | Outpatient (RCR) | payer MEDICARE, SELFPAY ==
[2017-09-29 14:27] VITALS: BMI 32.5
--- NOTE | 2025-05-07 07:18 | HP.PTEVAL ---
Patient's Visit Information Visit Information Visit Information: SHEEBA ZIMMER is a 64 year old M referred to Physical Therapy by Dr. Reagan Soto MD with a diagnosis of IMPAIRED AMBULATION. Date of Evaluation: 05/06/25 Physical Therapist: Johnny North, PT, Cert MDT, OCS Visit Plan Frequency: 2x /Week Duration: 12 weeks Plan: PT INTERVENTIONS PROGRESSIVE GAIT TRAINING,BALANCE TRAINING ,BLE STRENGTHENING ,POSTURAL EX'S ,AND FUNCTIONAL STRENGTHENING Subjective Subjective: This 64 y/o male presents to physical therapy with s/p cervical fusion C2 -7 and laminectomy posterior approach on Dec 21 at [facility] done by DR Martinez Neurosurgeon . 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 Patient was d/c 3 days then Rehab on 4th floor for ~ 1 month. D/C to home with [facility] PT [facility] . Initially paralysed right > left side. Patient progressed to wc level to fww /rollator. Lifting restriction 10#. Patient aspen aspen collar 2 month thus is d/c. RTD next month. Pain management for tramadol. No injections. Patient has low back pain . No radicular symptoms arm or legs. Patient has parestehesia in right hand. C/O numbness in leg. Patient is able to able to dress. Patient has walk in shower with grab bars and seat. 2 story home with 1 step and ramps. DME w/c ,rollator ,FWW ,shower chair. Patient has no recent falls. Patient sleeping okay. Patient denies/ZAVALA /nausea/vision /swallowing.Patient condition affects QOL/function /gait; Goals walking again with cane and steps. SOCIAL: VOCATION: RETIRED Pain Bilateral Back: Pain Intensity (Out of 10): 7 Pain Intensity Range: 4 and 7 Comment: LBP Objective Objective: POSTURE: mild forward posture ,thoracic kyphosis ,rounded shoulders GAIT: ambulates with CGA and fww slow joseph with mild forward posture hips/knees flexed NEURO: c/o paresthesia in right fingers ,and right leg ,light touch intact ,reflexes C5-6-7 1/3 ,3-4,L4-5,L5-S1 2/3 PALAPTION: UT/levator /scapular region AROM: BUE WFL ~ shoulder flexion 140 degrees MMT: BUE grossly 4/5 ( peak force) quads right 12.9 left 14.2 ,hamstrings 11.2 right ,left 12.3 ,hip flexion 8.9 right ,left 9.9 ,ankle 4-/5 CERVICAL ROM : flexion mod ,extension severe ,lateral flexion mod/severe ,rotation mod /severe mod loss BALANCE: fair with fww Balance/Special Test Scores CATSIB Score (Max score 120 seconds): 40 Lower Extremity Functional Score: 17 Goals Goal 1:: Patient to be I with HEP for strengthening Goal Time Frame: 4-6 Weeks Goal 2:: Patient to improve peak force quads/hams/hip by 5-10 # to improve function and gait Goal Time Frame: 4-6 Weeks Goal 3:: Patient to ambulate with FWW with 400 ft x 2 with supervision/mod I Goal Time Frame: 4-6 Weeks Goal 4:: Patient to improve LFES score by 5-10 points to improve QOL and function Goal Time Frame: 4-6 Weeks Goal 5:: Patient to improve CATSIB by 5 points to improve QOL and improve balance Goal Time Frame: 4-6 Weeks Goal 6:: Patient to demonstrate 50% improvement with increase gait and function Goal Time Frame: 4-6 Weeks Rehabilitation Potential Physical Therapy Diagnosis: This patient has multiple complexity issue with cervical fusion and laminectomy Dec 21 2024 with h/o CVA's with decrease gait ,balance ,weakness BLE ,impaired ADL'S thus benefit from skilled PT Rehabilitation Potential: Good Anticipated Interventions Patient/Client Instruction: Educate patient on: Condition and Plan of Care For the Purpose of:: To improve muscle performance and motor function, To improve ability to perform ADL's, To increase tolerance to activity/condition/position, To improve ability of physical actions for home/community/work/leisure, To improve gait and locomotor functions, To increase flexibility/ROM, To improve endurance, To improve balance, To assume or resume ADL's and To improve tolerance to ADL's Therapeutic Exercise to Include: Strength training, Endurance training, Balance training, Postural training and Gait and locomotor training Comment: BLE STRENGTHENING For the Purpose of:: To improve muscle performance and motor function, To improve ability to perform ADL's, To increase tolerance to activity/condition/position, To improve ability of physical actions for home/community/work/leisure, To improve gait and locomotor functions, To increase flexibility/ROM, To improve endurance, To improve balance, To improve safety and To improve tolerance to ADL's Text: Thank you for the opportunity to evaluate your patient. For Medicare and Medicare HMO plans, please review the plan of care and approve it. It will need to be FAXED BACK to us at [phone] for Medicare purposes. For Medicare only, by signing this I certify the plan of care. Please let me know if there are questions or concerns regarding this plan of care. Physician Signature: Date:
--- NOTE | 2025-05-07 07:23 | HP.PTEVAL_ITS ---
Patient's Visit Information Visit Information Visit Information: SHEEBA ZIMMER is a 64 year old M referred to Physical Therapy by Dr. Reagan Soto MD with a diagnosis of IMPAIRED AMBULATION. Date of Evaluation: 05/06/25 Physical Therapist: Johnny North, PT, Cert MDT, OCS Visit Plan Frequency: 2x /Week Duration: 12 weeks Plan: PT INTERVENTIONS PROGRESSIVE GAIT TRAINING,BALANCE TRAINING ,BLE S TRENGTHENING ,POSTURAL EX'S ,AND FUNCTIONAL STRENGTHENING Subjective Subjective: This 64 y/o male presents to physical therapy with s/p cervical fusion C2 -7 and laminectomy posterior approach on Dec 21 at [facility] done by DR Martinez Neurosurgeon . 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 Patient was d/c 3 days then Rehab on 4th floor for ~ 1 month. D/C to home with [facility] PT /OT . Initially paralysed right > left side. Patient progressed to wc level to fww /rollator. Lifting restriction 10#. Patient aspen aspen collar 2 month thus is d/c. RTD next month. Pain management for tramadol. No injections. Patient has low back pain . No radicular symptoms arm or legs. Patient has parestehesia in right hand. C/O numbness in leg. Patient is able to able to dress. Patient has walk in shower with grab bars and seat. 2 story home with 1 step and ramps. DME w/c ,rollator ,FWW ,shower chair. Patient has no recent falls. Patient sleeping okay. Patient denies/ZAVALA /nausea/vision /swallowing.Patient condition affects QOL/function /gait; Goals walking again with cane and steps. SOCIAL: VOCATION: RETIRED Pain Bilateral Back: Pain Intensity (Out of 10): 7 Pain Intensity Range: 4 and 7 Comment: LBP Objective Objective: POSTURE: mild forward posture ,thoracic kyphosis ,rounded shoulders GAIT: ambulates with CGA and fww slow joseph with mild forward posture hips/knees flexed NEURO: c/o paresthesia in right fingers ,and right leg ,light touch intact ,reflexes C5-6-7 1/3 ,3-4,L4-5,L5-S1 2/3 PALAPTION: UT/levator /scapular region AROM: BUE WFL ~ shoulder flexion 140 degrees MMT: BUE grossly 4/5 ( peak force) quads right 12.9 left 14.2 ,hamstrings 11.2 right ,left 12.3 ,hip flexion 8.9 right ,left 9.9 ,ankle 4-/5 CERVICAL ROM : flexion mod ,extension severe ,lateral flexion mod/severe ,rotation mod /severe mod loss BALANCE: fair with fww Balance/Special Test Scores CATSIB Score (Max score 120 seconds): 40 Lower Extremity Functional Score: 17 Goals Goal 1:: Patient to be I with HEP for strengthening Goal Time Frame: 4-6 Weeks Goal 2:: Patient to improve peak force quads/hams/hip by 5-10 # to improve function and gait Goal Time Frame: 4-6 Weeks Goal 3:: Patient to ambulate with FWW with 400 ft x 2 with supervision/mod I Goal Time Frame: 4-6 Weeks Goal 4:: Patient to improve LFES score by 5-10 points to improve QOL and function Goal Time Frame: 4-6 Weeks Goal 5:: Patient to improve CATSIB by 5 points to improve QOL and improve balance Goal Time Frame: 4-6 Weeks Goal 6:: Patient to demonstrate 50% improvement with increase gait and function Goal Time Frame: 4-6 Weeks Rehabilitation Potential Physical Therapy Diagnosis: This patient has multiple complexity issue with cervical fusion and laminectomy Dec 21 2024 with decrease gait ,balance ,weakness BLE ,impaired ADL'S thus benefit from skilled PT Rehabilitation Potential: Good Anticipated Interventions Patient/Client Instruction: Educate patient on: Condition and Plan of Care For the Purpose of:: To improve muscle performance and motor function, To improve ability to perform ADL's, To increase tolerance to activity/condition/position, To improve ability of physical actions for home/community/work/leisure, To improve gait and locomotor functions, To increase flexibility/ROM, To improve endurance, To improve balance, To assume or resume ADL's and To improve tolerance to ADL's Therapeutic Exercise to Include: Strength training, Endurance training, Balance training, Postural training and Gait and locomotor training Comment: BLE STRENGTHENING For the Purpose of:: To improve muscle performance and motor function, To improve ability to perform ADL's, To increase tolerance to activity/condition/position, To improve ability of physical actions for home/community/work/leisure, To improve gait and locomotor functions, To increase flexibility/ROM, To improve endurance, To improve balance, To improve safety and To improve tolerance to ADL's Text: Thank you for the opportunity to evaluate your patient. For Medicare and Medicare HMO plans, please review the plan of care and approve it. It will need to be FAXED BACK to us at [phone] for Medicare purposes. For Medicare only, by signing this I certify the plan of care. Please let me know if there are questions or concerns regarding this plan of care. Physician Signature: Date:
--- NOTE | 2025-06-05 16:30 | HP.PTREVAL_ITS ---
Re-Evaluation Intro: Dr. Reagan Soto MD, It has been my pleasure to treat SHEEBA ZIMMER over the last 9 visits for IMPAIRED AMBULATION. Please see the progress note below for an update on the physical therapy plan of care! Subjective Subjective: Patient neuro surgeon released in his care Plan for pain management Patient able to transfer better and move Balance is problem and knee gives but has not given out 100 ft with fww Objective Objective/Function: * Patient will continue to benefit from skilled PT to improve gait and balance and strength with patient made good progress with MMT with increasing strength with goals are appropriate and adjusted this benefit from skilled PT POSTURE: mild forward posture ,thoracic kyphosis ,rounded shoulders GAIT: ambulates with CGA and fww slow joseph with mild forward posture hips/knees flexed 100 FT NEURO: c/o paresthesia in right fingers ,and right leg ,light touch intact ,reflexes C5-6-7 1/3 ,3-4,L4-5,L5-S1 2/3 PALAPTION: UT/levator /scapular region AROM: BUE WFL ~ shoulder flexion 150 degrees MMT: BUE grossly 4/5 ( peak force) quads right 37.8 left 30.3 ,hamstrings 36.2 right ,left 44.3 ,hip flexion 17.1 right ,left 20.9 ,ankle 4-/5 CERVICAL ROM : flexion mod ,extension MOD/severe ,lateral flexion mod ,rotation mod loss BALANCE: fair with fww Plan Plan Plan: PT INTERVENTIONS PROGRESSIVE GAIT TRAINING,BALANCE TRAINING ,BLE STRENGTHENING ,POSTURAL EX'S ,AND FUNCTIONAL STRENGTHENING Balance/Gait/Functional tests Balance/Special Test Scores CATSIB Score (Max score 120 seconds): 44 Lower Extremity Functional Score: 19 Goals Goals Goal 1:: Patient to be I with HEP for strengthening Goal Time Frame: 4-6 Weeks Goal Progress: Progressing Goal 2:: Patient to improve peak force quads/hams/hip by 5-10 # to improve function and gait ( new goal) Goal Time Frame: 4-6 Weeks Goal 3:: Patient to ambulate with FWW with 400 ft x 2 with supervision/mod I Goal Time Frame: 4-6 Weeks Goal Progress: Progressing Goal 4:: Patient to improve LFES score by 5-10 points to improve QOL and function Goal Time Frame: 4-6 Weeks Goal Progress: Progressing Goal 5:: Patient to improve CATSIB by 5 points to improve QOL and improve balance Goal Time Frame: 4-6 Weeks Goal Progress: Progressing Goal 6:: Patient to demonstrate 50% improvement with increase gait and function Goal Time Frame: 4-6 Weeks Goal Progress: Progressing Anticipated Interventions Anticipated Interventions Patient/Client Instruction: Educate patient on: Condition and Plan of Care For the Purpose of:: To improve muscle performance and motor function, To improve ability to perform ADL's, To increase tolerance to activity/condition/p osition, To improve ability of physical actions for home/community/work/leisure, To improve gait and locomotor functions, To increase flexibility/ROM, To improve endurance, To improve balance, To assume or resume ADL's and To improve tolerance to ADL's Therapeutic Exercise to Include: Strength training, Endurance training, Balance training, Postural training and Gait and locomotor training Comment: BLE STRENGTHENING For the Purpose of:: To improve muscle performance and motor function, To improve ability to perform ADL's, To increase tolerance to activity/condition/position, To improve ability of physical actions for home/community/work/leisure, To improve gait and locomotor functions, To increase flexibility/ROM, To improve endurance, To improve balance, To improve safety and To improve tolerance to ADL's Re-Evaluation Ending Re-evaluation ending: Please do not hesitate to contact me at [phone] by phone or if you have questions or concerns regarding this new plan of care! Sincerely, Johnny North, PT, Cert MDT, OCS
--- NOTE | 2025-07-10 15:58 | HP.PTREVAL_ITS ---
Re-Evaluation Intro: Dr. Reagan Soto MD, It has been my pleasure to treat SHEEBA ZIMMER over the last 16 visits for IMPAIRED AMBULATION. Please see the progress note below for an update on the physical therapy plan of care! Subjective Subjective: Seen surgeon 1 month happy progress Plan for pain management -no falls Objective Objective/Function: Patient will continue to benefit from skilled PT to improve gait and balance and strength with patient made good progress with MMT with increasing strength and ambulating further distances with goals are appropriate and adjusted this benefit from skilled PT POSTURE: mild forward posture ,thoracic kyphosis ,rounded shoulders GAIT: ambulates with SBA 300 ft NEURO: c/o paresthesia in right fingers ,and right leg ,light touch intact ,reflexes C5-6-7 1/3 ,3-4,L4-5,L5-S1 2/3 PALAPTION: UT/levator /scapular region AROM: BUE WFL ~ shoulder flexion 150 degrees MMT: BUE grossly 4/5 ( peak force) quads right 39.2 left 30.9 ,hamstrings 36.2 right ,left 44.3 ,hip flexion 19.1 right ,left 21.9 ,ankle 4-/5 CERVICAL ROM : flexion mod ,extension MOD/severe ,lateral flexion mod ,rotation mod loss BALANCE: fair+ with fww Plan Plan Plan: [facility] next PT INTERVENTIONS PROGRESSIVE GAIT TRAINING,BALANCE TRAINING ,BLE STRENGTHENING ,POSTURAL EX'S ,AND FUNCTIONAL STRENGTHENING Balance/Gait/Functional tests Balance/Special Test Scores CATSIB Score (Max score 120 seconds): 51 Lower Extremity Functional Score: 19 Goals Goals Goal 1:: Patient to be I with HEP for strengthening Goal Time Frame: 4-6 Weeks Goal Progress: Progressing Goal 2:: Patient to improve peak force quads/hams/hip by 5-10 # to improve f unction and gait ( new goal) Goal Time Frame: 4-6 Weeks Goal 3:: Patient to ambulate with FWW with 400 ft x 2 with supervision/mod I Goal Time Frame: 4-6 Weeks Goal Progress: Progressing Goal 4:: Patient to improve LFES score by 5-10 points to improve QOL and function Goal Time Frame: 4-6 Weeks Goal Progress: Progressing Goal 5:: Patient to improve CATSIB by 5 points to improve QOL and improve balance Goal Time Frame: 4-6 Weeks Goal Progress: Progressing Goal 6:: Patient to demonstrate 50% improvement with increase gait and function Goal Time Frame: 4-6 Weeks Goal Progress: Progressing Anticipated Interventions Anticipated Interventions Patient/Client Instruction: Educate patient on: Condition and Plan of Care For the Purpose of:: To improve muscle performance and motor function, To improve ability to perform ADL's, To increase tolerance to activity/condition/position, To improve ability of physical actions for home/community/work/leisure, To improve gait and locomotor functions, To increase flexibility/ROM, To improve endurance, To improve balance, To assume or resume ADL's and To improve tolerance to ADL's Therapeutic Exercise to Include: Strength training, Endurance training, Balance training, Postural training and Gait and locomotor training Comment: BLE STRENGTHENING For the Purpose of:: To improve muscle performance and motor function, To improve ability to perform ADL's, To increase tolerance to activity/condition/position, To improve ability of physical actions for home/community/work/leisure, To improve gait and locomotor functions, To increase flexibility/ROM, To improve endurance, To improve balance, To improve safety and To improve tolerance to ADL's Re-Evaluation Ending Re-evaluation ending: Please do not hesitate to contact me at [phone] by phone or if you have questions or concerns regarding this new plan of care! Sincerely, Johnny North PT, Cert MDT, OCS
--- NOTE | 2025-08-07 16:01 | HP.PTDCSUM ---
Discharge Summary D/C summary: It has been my pleasure to treat SHEEBA ZIMMER referred by Dr. Reagan Soto MD, with the diagnosis of IMPAIRED AMBULATION for a total of 22 visit(s). Discharge Date: 08/07/25 Please see the following information for a summary of their discharge status. Subjective Subjective: Patient feeling more confident walking ADL and light housework working on tractor Ambulates with cane Pain Bilateral Back: Pain Intensity (Out of 10): 4 BLE: Pain Intensity (Out of 10): 5 Overall Improvement % Improvement: 60 Objective Objective/Function: mild forward posture ,thoracic kyphosis ,rounded shoulders GAIT: ambulates Mod I 500 > 1/2 block , able to walk short distance w/o device unsteady NEURO: c/o paresthesia in right fingers ,and right leg ,light touch intact ,reflexes C5-6-7 1/3 ,3-4,L4-5,L5-S1 2/3 PALAPTION: UT/levator /scapular region AROM: BUE WFL ~ shoulder flexion 150 degrees MMT: BUE grossly 4/5 ( peak force) quads right 39.2 left 30.9 ,hamstrings 36.2 right ,left 44.3 ,hip flexion 19.1 right ,left 21.9 ,ankle 4-/5 CERVICAL ROM : flexion min ,extension MOD/severe ,lateral flexion mod ,rotation min/ mod loss BALANCE: fair+ with fww Goals Goal 1:: Patient to be I with HEP for strengthening Goal Progress: Goal Met Goal 2:: Patient to improve peak force quads/hams/hip by 5-10 # to improve function and gait ( new goal) Goal Progress: Goal Met Goal 3:: Patient to ambulate with FWW with 400 ft x 2 with supervision/mod I Goal Progress: Goal Met Goal 4:: Patient to improve LFES score by 5-10 points to improve QOL and function Goal Progress: Goal Met Goal 5:: Patient to improve CATSIB by 5 points to improve QOL and improve balance Goal Progress: Progressing Goal 6:: Patient to demonstrate 50% improvement with increase gait and function Goal Progress: Goal Met Plan Plan: D/C D/C Information Discharge Comments: hep d/c sentence: If there are questions or concerns regarding this patient's physical therapy, please feel free to call me at [phone]. Thank you for the referral of this patient. Sincerely, Johnny North, PT, Cert MDT, OCS Balance/Gait/Functional tests Balance/Special Test Scores CATSIB Score (Max score 120 seconds): 51 Lower Extremity Functional Score: 42 Improvement % Improvement: 60
== END 2025-08-07 19:00 | disposition home or self-care (01) ==
LOC: PT 15:30
PROVIDERS: PCP Family Medicine; Visit Provider Family Medicine
DX: R26.89 Other abnormalities of gait and mobility (principal)
CPT/HCPCS: 97110; 97162; 97530

== ENCOUNTER → 2025-09-27 | Outpatient (CLI) | payer MEDICARE, SELFPAY ==
[2017-09-29 14:27] VITALS: BMI 32.5
[2025-09-27 16:19] LABS: Mucous, Urine 0 SEEN /hpf (<or=2+); Red Blood Cells-Urine 0 SEEN /hpf (0-5)
--- OUTSIDE RECORDS SUMMARY | 2025-09-27 16:22 | XMS RPT_ITS | CCD ---
Author Organization [facility] Care Team Providers Care Foot Tender Name Role Phone Gretchen RN, Lenora Olivera Unavailable Unavailable Gretchen RN, Lenora Olivera Unavailable Unavailable [facility] Nurse Unavailable Unavailable Shivani Jain Unavailable Estefany HANDY, Galina Almeida Unavailable Gretchen HANDY, Lenora Olivera Unavailable Unavailable ROZINA Ivey, Ariane Cottrell Unavailable UnavailReagan Neri Primary Care Provider [phone] Unavailable Primary Care Provider UnavailReagan Neri MD Primary Care Provider Dr. Reagan Soto Primary Care Provider Dr. Reagan Soto Referring Provider Roof TIRE FABRIC IMPREGNATING RANGE TENDER, TIRE FABRIC IMPREGNATING RANGE TENDER-Denisha Redmond Attending Provider REAGAN SOTO Referring Unavailable REAGAN SOTO Consulting Unavailable DR VIRY AWAN Attending Unavaila ble ANGELDR VIRY HARRIS Primary Care Unavaila ble DR VIRY AWAN Admitting Unavaila ble PROVIDER, UNKNOWN Consulting Unavailable Pcp, No Primary Care Provider Dr. Reagan Tavera Primary Care Provider [phone] Dr. Reagan Soto Referring Provider Roof TIRE FABRIC IMPREGNATING RANGE TENDER, MALA Redmond Attending Provider Dr. Reagan Soto Primary Care Provider Dr. Reagan Soto Referring Provider Roof TIRE FABRIC IMPREGNATING RANGE TENDER, TIRE FABRIC IMPREGNATING RANGE TENDER-Denisha Redmond Attending Provider Reagan Soto MD Primary Care Provider Dr. Reagan Soto Primary Care Provider Dr. Reagan Soto Referring Provider Sae TIRE FABRIC IMPREGNATING RANGE TENDER, TIRE FABRIC IMPREGNATING RANGE TENDER-C Malinda Attending Provider Reagan Soto MD Primary Care Provider Dr. Reagan Soto Primary Care Provider Dr. Reagan Soto Referring Provider Sae TIRE FABRIC IMPREGNATING RANGE TENDER, TIRE FABRIC IMPREGNATING RANGE TENDER-C Malinda Attending Provider Unavailable Primary Care Provider Unavailemma Soto MD, Dr. Reagan Awad Primary Care Provider Brittany MOREAU, Dr. Reagan Awad Attending Provider Brittany MOREAU, Dr. Reagan Awad Referring Provider Dr. Jung Palmer DO Attending Provider Dr. Jung Palmer DO Emergency Provider Dr. Jung Palmer DO Referring Provider Roxanna Hardwick Attending Provider Hilda MOREAU, Dr. Moralez Attending Provider Roxanna Hardwick Referring Provider Jeramie RYAN, Dr. Saumya Choi Admit Provider Jeramie RYAN, Dr. Saumya Choi Attending Provide r Semensamantha RYAN, Dr. Saumya Choi Referring Provide r Jeramie RYAN, Dr. Saumya Choi Other Provider Brittany MOREAU, Dr. Reagan Awad Primary Care Provider Brittany MOREAU, Dr. Reagan Awad Attending Provider Brittany MOREAU, Dr. Reagan Awad Referring Provider Dr. Jung Palmer DO Attending Provider Dr. Jung Palmer DO Emergency Provider Dr. Jung Palmer DO Referring Provider [phone] Roxanan Hardwick Attending Provider Hilda MOREAU, Dr. Moralez Attending Provider Roxanna Hardwick Referring Provider [phone] Semensamantha DO, Dr. Saumya Choi Admit Provider Sementi DO, Dr. Saumya Choi Attending Provide r Sementi DO, Dr. Saumya Choi Referring Provide r Sementi DO, Dr. Saumya Choi Other Provider Joss MOREAU, Dr. Mccollum Attending Provider Garcia DO, Dr. Multani Referring Provider Unaflorencio Garcia DO, Dr. Multani Attending Provider Unav Malinda Galaviz Attending Provider Brittany MOREAU, Dr. Reagan Awad Primary Care Provider Semensamantha DO, Dr. Saumya Choi Other Provider Brittany MOREAU, Dr. Reagan Awad Referring Provider [phone] Brittany MOREAU, Dr. Reagan Awad Attending Provider [phone] Jeramie RYAN, Dr. Saumya Choi Other Provider Adam MOREAU, Dr. Jones Attending Provider Dr. Karen Medina MD Referring Provider LACEY MCDERMOTT Attending Unavailable LACEY MCDERMOTT Referring Unavailable LACEY MCDERMOTT Attending Unavailable LACEY MCDERMOTT Referring Unavailable LACEY MCDERMOTT Attending Unavailable LACEY MCDERMOTT Referring Unavailable Brittany MOREAU, Dr. Reagan Awad Primary Care Provider [phone] Brittany MOREAU, Dr. Reagan Awad Attending Provider Brittany MOERAU, Dr. Reagan Awad Referring Provider [phone] REAGAN SOTO Primary Care Unavailable REAGAN SOTO Primary Care Unavailable REAGAN SOTO Primary Care Unavailable REAGAN SOTO Primary Care Unavailable FALGUNI ZARATE Attending Unavailable REAGAN SOTO Primary Care Unavailable SCHREAGAN MARIA Primary Care Unavailable Roxanna Ochoa Referring Unavailable Reagan Soto Primary Care Unavailable Roxanna Ochoa Attending Unavailable Ramon Call Referring Unavailable Reagan Soto Primary Care Unavailable Ramon Call Attending Unavailable Reagan Soto Primary Care Unavailable Sementi, Saumya Choi Admitting Unavaila ble Sementi, Saumya Choi Referring Unavaila ble Sementi, Teressa Attending Unavaila oRxanna Moreno Attending Unavailable Reagan Soto Referring Unavailable Reagan oSto Primary Care Unavailable Reagan Soto Primary Care Unavailable Sementi, Saumya Choi Consulting Unavaila ble Sementi, Saumya Choi Admitting Unavaila ble Sementi, Saumya Choi Referring Unavaila ble Sementi, Teressa Attending Unavaila Reagan Reilly Attending Unavailable Reagan Soto Referring Unavailable Reagan Soto Primary Care Unavailable Reagan Soto Attending Unavailable Reagan Soto Primary Care Unavailable Reagan Soto Referring Unavailable Jung Palmer Referring Unavailable Reagan Soto Primary Care Unavailable Jung Palmer Attending Unavailable Jung Palmer Referring Unavailable Jung Palmer Attending Unavailable Reagan Soto Primary Care Unavailable Reagan Soto Attending Unavailable Reagan Soto Primary Care Unavailable Reagan Soto Referring Unavailable Jung Palmer Attending Unavailable Reagan Stoo Primary Care Unavailable Reagan Soto Primary Care Unavailable Karen Medina Referring Unavailable Karen Medina Attending Unavailable Armando Garcia Referring Unavailable Reagan Soto Primary Care Unavailable Chun Coreas Attending UnavailReagan Neri Primary Care Unavailable Reagan Soto Referring Unavailable Malinda Quevedo NP Attending Unavailable Reagan Soto Primary Care Unavailable Kirt Stevens Attending Unavailable Armando Garcia Attending Unavailable Reagan Soto Attending Unavailable Reagan Soto Primary Care Unavailable Reagan Soto Primary Care Unavailable Reagan Soto Referring Unavailable Reagan Soto Attending Unavailable Brittany MOREAU, Dr. Reagan Awad Primary Care Physician Adam MOREAU, Dr. Jones Attending Physician [phone] Brittany MOREAU, Dr. Reagan Awad Attending Physician Allergies Allergy Classification Reported Allergen(s) Allergy Type Date of Onset Reaction(s) Facility (20 sources) Morphine; Translations: [MORPHINE] Drug Allergy 1 Nausea And Vomiting, Vomiting [facility] Work Phone: (16 sources) bee venom Propensity to adverse reactions to drug 1 Anaphylaxis [facility] (1 source) Morphine Drug Allergy [facility] Repository (16 sources) Bees; Translations: [BEES] Propensity to adverse reactions 5 [facility] Work Phone: (3 sources) Honey bee venom Propensity to adverse reactions 1 Anaphylaxis [facility] (1 source) Morphine Drug Allergy 5 [facility] Repository Medications Current Medications Medication Drug Class(es) Dates Sig (Normalized) Sig (Original) acetaminophen 500 mg oral tablet (8 sources) Start: 01-14-2025 take 2 tablets by mouth every eight hours for pain Start: 02-22-2022 acetaminophen (TYLENOL) tablet 650 mg Start: 11-19-2019 acetaminophen (TYLENOL) tablet 650 mg aspirin 81 mg delayed release oral tablet (20 sources) Nonsteroidal Anti-inflammatory Drug Start: 03-26-2022 aspirin, enteric coated (ASPIRIN, ENTERIC COATED) 81 mg EC tablet Take 1 tablet by mouth once daily. Patient should start on December 25, 2024. 12/25/2024 Active Start: 03-26-2022 take 1 tablet by nisha th once daily aspirin 81 MG EC tablet Take 1 tablet by mouth daily Restart in one month. 30 tablet 3 03/26/2022 Active Start: 02-23-2022 take 1 tablet by nisha th once daily aspirin 325 MG EC tablet Take 1 tablet by mouth daily X 1 month 30 tablet 0 02/23/2022 Active Start: 11-17-2019 aspirin chewab le tablet 81 mg Start: 09-15-2017 End: 02-23-2022 take 1 tablet by mouth once daily Comment on above: Take 81 mg by mouth once daily. carvedilol 12.5 mg oral tablet (20 sources) alpha-Adrenergic Hardik, beta-Adrenergic Hardik Start: 12-24-2024 take 1 tablet by mouth twice daily at mealtime Start: 09-13-2019 End: 01-14-2025 Carvedilol 25 mg tablet Discontinued 12.5 mg PO TWICE A DAY September 13, 2019 1:00am January 14, 2025 3:44pm heart Start: 09-13-2019 End: 01-09-2024 carvedilol (Coreg) 25 MG tab let Indications: VT (ventricular tachycardia) (HCC) , Paroxysmal atrial fibrillation (HCC) , Primary hypertension TAKE 1 TABLET TWICE A DAY 180 tablet 3 01/09/2024 Active Start: 09-18-2018 End: 09-13-2019 take 1 tablet by mouth twice daily Carvedilol 12.5 mg tablet Discontinued 12.5 mg PO TWICE A DAY 60 September 20, 2018 3:52pm September 13, 2019 4:30pm Start: 08-28-2018 End: 09-18-2018 take 1 tablet by mouth twice daily at mealtime Carvedilol 6.25 mg tablet Discontinued 6.25 mg PO TWICE A DAY 60 August 28, 2018 1:00am September 18, 2018 12:17pm give with food (meal/snack) Start: 11-01-2017 End: 08-28-2018 take 6.25 mg by mouth twice daily Carvedilol 12.5 mg tablet Discontinued 6.25 mg PO TWICE A DAY August 28, 2018 4:45pm August 28, 2018 4:46pm Start: 11-01-2017 End: 08-28-2018 take 6.25 mg by mouth twice daily Carvedilol Discontinued 6.25 MG PO TWICE A DAY August 28, 2018 3:45pm August 28, 2018 3:46pm Start: 09-15-2017 End: 11-01-2017 take 1 tablet by mouth twice daily Carvedilol 12.5 MG tablet Discontinued 12.5 mg PO TWICE A DAY 60 0 September 15, 2017 1:00am November 01, 2017 1:05pm Comment on above: Take 1 (one) Tablet by mouth two times daily cholecalciferol 0.125 mg oral capsule (6 sources) Vitamin D Start: 01-15-20 take 1 capsule by mouth once daily DULoxetine 60 mg delayed release oral capsule (11 sources) Serotonin and Norepinephrine Reuptake Inhibitor Start: 02-23-20 take 1 capsule by mouth once daily DULoxetine (CYMBALTA) 60 mg capsule Take 1 capsule by mouth once daily. 02/22/2025 Active Start: 01-14-2025 take 1 capsule by mouth once d aily empagliflozin 25 mg oral tablet (20 sources) Sodium-Glucose Cotransporter 2 Inhibitor Start: 04-07-2022 End: 01-14-2025 take 1 tablet by mouth once daily Start: 11-24-2020 End: 04-07-2022 take 1 tablet by mouth once daily Empagliflozin 10 mg tablet Discontinued 10 mg PO DAILY November 24, 2020 1:00am April 07, 2022 2:41pm take 1 tablet by nisha th once daily empagliflozin (JARDIANCE) 25 MG tablet Take 25 mg by mouth daily 0 Suspended Comment on above: Take 25 mg by mouth daily with breakfast. 60 actuat fluticasone propionate 0.232 mg/actuat / salmeterol xinafoate 0.014 mg/actuat dry powder inhaler (10 sources) Corticosteroid, beta2-Adrenergic Agonist Start: take 1 puff(s) by mouth every twelve hours fluticasone propion-salmeterol 232-14 mcg/actuation INHALE 1 PUFF BY MOUTH EVERY 12 HOURS rinse mouth after every use 01/14/2025 Active Start: 01-14-2025 gabapentin 300 mg oral capsule (20 sources) Anti-epileptic Agent Start: 03-04-2025 End: 04-03-2025 take 1 capsule by mouth once daily gabapentin (NEURONTIN) 300 mg capsule Take 1 capsule by mouth once daily for 30 days. 30 capsule 03/04/2025 Active Start: 12-24-2024 End: 01-23-2025 take 1 capsule by mouth every eight hours glucagon (rdna) 1 mg injection (1 source) Antihypoglycemic Agent Start: 11-16-2019 glucago n (rDNA) injection 1 mg 150 ml glucose 50 mg/ml injection (3 sources) Start: 11-16-2019 dextrose 5 % s olution Start: 11-16-2019 glucose (GLUTO SE) 40 % oral gel 15 g Start: 11-16-2019 dextrose 50 % IV solution hydrALAZINE hydrochloride 10 mg oral tablet (1 source) Arteriolar Vasodilator End: 11-20-2019 take 1 tablet by mouth twice daily hydrALAZINE (APRESOLINE) 10 MG tablet Take 10 mg by mouth 2 times daily 0 11/20/2019 Discontinued (Stop Taking at Discharge) hydrOXYzine pamoate 25 mg oral capsule (1 source) Antihistamine Start: 11-19-2019 hydrOXYzine (VISTARIL) capsule 25 mg insulin lispro 100 unt/ml injectable solution (2 sources) Insulin Analog Start: 11-18-2019 insulin lispro (HUMALOG) injection vial 2 Units Start: 11-17-2019 insulin lispro (HUMALOG) injection vial 0-6 Units isoproterenol (ISUPREL) 200 mcg in dextrose 5 % 50 mL infusion (1 source) Start: 02-22-2022 isoproterenol (ISUPREL) 200 mcg in dextrose 5 % 50 mL infusion lisinopril 2.5 mg oral tablet (20 sources) Angiotensin Converting Enzyme Inhibitor Start: 01-14-2025 take 1 tablet by mouth once daily Start: 12-25-2024 take 1 tablet by nisha th once daily lisinopril (ZESTRIL) 5 mg tablet Take 1 tablet by mouth once daily. 90 tablet 12/25/2024 Active Start: 12-24-2024 End: 01-14-2025 take 5 mg by mouth once daily Lisinopril 40 mg tablet Discontinued 5 mg PO DAILY December 24, 2024 1:00am January 14, 2025 3:46pm bp Start: 02-22-2022 take 40 mg by mouth once daily 40 mg, Oral, DAILY, First dose on Tue02/22/22 at 1715, Until Discontinued Start: 11-17-2019 lisinopril (ND INIVIL;ZESTRIL) tablet 40 mg Start: 09-20-2017 take 1 tablet by nisha th once daily LISINOPRIL 5 MG TABS One tablet by mouth daily LISINOPRIL [id number] Ariane Ivey RN Start: 09-15-2017 End: 02-25-2025 take 1 tablet by mouth once daily Lisinopril 40 mg tablet Discontinued 40 mg PO DAILY 90 3 August 30, 2022 11:00am December 24, 2024 6:12pm Comment on above: Take 40 mg by mouth once daily. Mounjaro 2.5 MG/0.5ML solution pen-injector (1 source) Start: 12-28-2022 Mounjaro 2.5 MG/0.5ML solution pen-injector 2.5 mg. 0 12/28/2022 Active Mounjaro 5 MG/0.5ML solution pen-injector (10 sources) Start: 01-18-2023 Mounjaro 5 MG/0.5ML solution pen-injector INJECT 5 mg under skin weekly 01/18/2023 Active Start: 01-18-2023 Mounjaro 5 MG/ 0.5ML solution pen-injector INJECT 5 mg under skin weekly 0 01/18/2023 Active nitroglycerin 0.4 mg sublingual tablet (20 sources) Nitrate Vasodilator Start: 11-27-2019 nitroglycerin sublingual (NITROQUICK) 0.4 mg SL tablet up to max of 3 total doses. If no relief after 1 dose, call 911. 11/27/2019 Active 2 ml ondansetron 2 mg/ml injection (1 source) Serotonin-3 Receptor Antagonist Start: 11-16-2019 ondansetron (ZOFRAN) injection 4 mg pantoprazole 40 mg delayed release oral tablet (6 sources) Proton Pump Inhibitor Start: 01-14-2025 take 1 tablet by mouth once daily perflutren lipid microspheres (DEFINITY) injection 1.65 mg (1 source) Start: 12-06-2019 End: 12-09-2019 perflutren lipid microspheres (DEFINITY) injection 1.65 mg polyethylene glycol [id number] mg powder for oral solution (1 source) Osmotic Laxative Start: 11-16-2019 polyethylene glycol (GLYCOLAX) packet 17 g rosuvastatin calcium 40 mg oral tablet (20 sources) HMG-CoA Reductase Inhibitor Start: 02-22-2022 take 40 mg by mouth once daily 40 mg, Oral, DAILY, First dose on Tue02/22/22 at 1715, Until Discontinued Start: 11-17-2019 rosuvastatin ( CRESTOR) tablet 40 mg Start: 09-13-2019 End: 01-14-2025 take 1 tablet by mouth at bedtime Comment on above: TAKE 1 TABLET BY NISHA TH EVERY DAY nightly 5 ml sodium chloride 9 mg/ml injection (6 sources) Start: 02-22-2022 sodium chloride flush 0.9 % injection 5-40 mL Start: 02-22-2022 0.9 % sodium c hloride infusion Start: 11-16-2019 End: 11-20-2019 sodium chloride flush 0.9 % injection 10 mL tamsulosin hydrochloride 0.4 mg oral capsule (10 sources) alpha-Adrenergic Hardik Start: 02-26-2025 take 1 capsule by mouth once daily tamsulosin (FLOMAX) 0.4 mg Take 1 capsule by mouth once daily. 02/26/2025 Active Start: 01-14-2025 take 2 tablets by mouth once d aily traMADol hydrochloride 50 mg oral tablet (20 sources) Opioid Agonist Start: 02-14-2025 take 1 tablet by mouth twice daily traMADol (ULTRAM) 50 mg tablet Take 1 oral Twice a day for 28 Days 02/14/2025 Active Start: 09-08-2023 End: 12-24-2024 take 1 tablet by mouth twice daily as needed for pain Tramadol 50 mg tablet Discontinued 50 mg PO TWICE A DAY as needed for pain September 08, 2023 1:00am December 24, 2024 6:09pm End: 01-21-2025 take 1 tablet by mouth three times daily traMADol (ULTRAM) 50 mg tablet Take 50 mg by mouth three times a day. 01/21/2025 Discontinued Completed/Discontinued Medications Medication Drug Class(es) Dates Sig (Normalized) Sig (Original) acetaminophen 325 mg / HYDROcodone bitartrate 5 mg oral tablet (15 sources) Opioid Agonist Start: 12-13-2022 End: 03-09-2023 Hydrocodone-Acetami nophen 5-325 mg tablet Discontinued 1 {tbl} PO EVERY 6 HOURS NEEDED as needed for Pain 12 3 0 December 13, 2022 March 09, 2023 8:32am Strain of lumbar region Strain of muscle, fascia and tendon of lower back, initial encounter Start: 12-13-2022 End: 03-09-2023 take 1 tablet by mouth every six hours as needed Hydrocodone-Acetaminophen Discontinued 1 TABLET PO EVERY 6 HOURS NEEDED 12 3 December 13, 2022 March 09, 2023 7:32am Start: 11-20-2019 End: 11-23-2019 HYDROcodone-acetaminophen (N ORCO) 5-325 MG per tablet Indications: Acute pain Take 1 tablet by mouth every 6 hours as needed for Pain for up to 3 days. Intended supply: 3 days. Take lowest dose possible to manage pain 12 tablet 0 11/20/2019 11/23/2019 Active amiodarone hydrochloride 400 mg oral tablet (20 sources) Antiarrhythmic Start: 10-06-2023 End: 03-21-2025 take 1 tablet by mouth at breakfast Start: 03-09-2023 End: 01-14-2025 Amiodarone 400 mg tablet Discontinued 200 mg PO DAILY April 25, 2024 1:00pm January 14, 2025 3:43pm heart Start: 03-09-2023 take 200 mg by mouth once jo ann y Amiodarone Active 200 MG PO DAILY March 09, 2023 7:45am Start: 11-12-2022 End: 09-14-2023 take 1 tablet by mouth once daily amiodarone (Pacerone) 200 MG tablet Indications: Paroxysmal atrial fibrillation (HCC) Take 1 tablet (200 mg) by mouth daily. 90 tablet 3 01/06/2023 09/14/2023 Discontinued (Duplicate order) Start: 08-25-2022 End: 03-09-2023 take 1 tablet by mouth once daily Amiodarone 400 mg tablet Discontinued 400 mg PO DAILY October 07, 2022 1:00am March 09, 2023 8:46am Start: 06-08-2021 End: 04-07-2022 take 1 tablet by mouth every other day Amiodarone 200 mg Tablet Discontinued 200 mg PO EVERY OTHER DAY June 08, 2021 12:00am April 07, 2022 2:40pm Start: 11-24-2020 End: 04-07-2022 Amiodarone 200 mg tablet Discontinued 100 mg PO EVERY OTHER DAY November 24, 2020 1:00am April 07, 2022 2:40pm Start: 11-24-2020 End: 04-07-2022 take 100 mg by mouth every other day Amiodarone Discontinued 100 MG PO EVERY OTHER DAY November 24, 2020 12:00am April 07, 2022 1:40pm Start: 05-20-2020 End: 11-24-2020 Amiodarone 400 mg tablet Discontinued 100 mg PO DAILY May 20, 2020 3:58pm November 24, 2020 4:30pm Start: 05-20-2020 End: 11-24-2020 take 100 mg by mouth once daily Amiodarone Discontinue d 100 MG PO DAILY May 20, 2020 2:58pm November 24, 2020 3:30pm Start: 11-25-2019 End: 05-20-2020 take 1 tablet by mouth three times daily Amiodarone 400 MG tablet Discontinued 400 mg PO THREE TIMES A DAY November 25, 2019 1:00am May 20, 2020 3:59pm Start: 11-20-2019 take 1 tablet by nisha three times daily amiodarone (PACERONE) 400 MG tablet Take 1 tablet by mouth 3 times daily 24 tablet 0 11/20/2019 Active Start: 11-17-2019 amiodarone (CO RDARONE) tablet 400 mg Start: 11-01-2017 End: 02-23-2022 take 1 tablet by mouth once daily Amiodarone 200 MG tablet Discontinued 200 mg PO daily 60 0 November 01, 2017 6:03pm January 30, 2018 10:37am Start: 09-15-2017 End: 11-01-2017 take 1 tablet by mouth twice daily Amiodarone 200 MG tablet Discontinued 200 mg PO TWICE A DAY 60 0 September 15, 2017 1:00am November 01, 2017 6:04pm take 2 tablets by mo [facility] in the morning amiodarone (Pacerone) 200 MG tablet Take 400 mg by mouth in the morning. 0 Active amiodarone (CORDARONE) 450 mg in dextrose 5 % 250 mL infusion (1 source) Start: 11-16-2019 End: 11-17-2019 amiodarone (CORDARONE) 450 mg in dextrose 5 % 250 mL infusion atenolol 25 mg oral tablet (17 sources) beta-Adrenergic Hardik Start: 11-11-2014 End: 09-15-2017 take 1 tablet by mouth once daily Atenolol 25 MG tablet Discontinued 25 mg PO DAILY November 11, 2014 1:00am September 15, 2017 12:34pm blood pressure atorvastatin 40 mg oral tablet (20 sources) HMG-CoA Reductase Inhibitor Start: 11-16-2019 End: 11-16-2019 atorvastatin (LIPITOR) tablet 40 mg Start: 09-17-2018 End: 09-13-2019 take 1 tablet by mouth at bedtime Atorvastatin 80 MG tablet Discontinued 80 mg PO AT BEDTIME September 17, 2018 1:00am September 13, 2019 4:31pm Cholesterol Start: 09-15-2017 End: 08-28-2018 take 1 tablet by mouth at bedtime Atorvastatin 80 MG tablet Discontinued 80 mg PO AT BEDTIME 30 0 November 23rd, 2017 1:00am August 28, 2018 4:47pm clopidogrel 75 mg oral tablet (20 sources) [id number] Platelet Inhibitor Start: 08-28-2018 End: 05-20-2020 take 1 tablet by mouth once daily Clopidogrel (Plavix) 75 mg tablet Discontinued 75 mg PO DAILY 30 August 10, 2019 9:55am May 20, 2020 3:59pm Start: 11-01-2017 End: 08-28-2018 take 4 tablets by mouth once daily, then take 1 tablet by mouth once daily Clopidogrel (Plavix) 75 mg tablet Discontinued 75 mg PO ONCE 90 November 01, 2017 1:00am August 28, 2018 4:47pm Take 4 pills (300mg) on day one and one pill (75mg) daily after that. cyclobenzaprine hydrochloride 10 mg oral tablet (19 sources) Muscle Relaxant Start: 12-28-2022 End: 03-21-2025 take 1 tablet by mouth every eight hours as needed cyclobenzaprine (Flexeril) 10 MG tablet Take 10 mg by mouth every 8 hours as needed. 12/28/2022 03/21/2025 Discontinued (Therapy completed) Start: 12-17-2022 End: 09-14-2023 take 1 tablet by mouth every eight hours as needed cyclobenzaprine (Flexeril) 5 MG tablet Take 5 mg by mouth every 8 hours as needed. 0 12/17/2022 09/14/2023 Discontinued 0.4 ml enoxaparin sodium 100 mg/ml prefilled syringe (1 source) Low Molecular Weight Heparin Start: 11-17-2019 End: 11-18-2019 enoxaparin (LOVENOX) injection 40 mg furosemide 20 mg oral tablet (20 sources) Loop Diuretic Start: 05-20-2020 End: 08-23-2024 take 1 tablet by mouth once daily Furosemide (Lasix) 20 mg tablet Discontinued 20 mg PO DAILY August 22, 2023 11:13am August 23, 2024 10:08am Comment on above: Take 20 mg by mouth once daily. hydroCHLOROthiazide 25 mg oral tablet (20 sources) Thiazide Diuretic Start: 10-02-2018 End: 05-20-2020 take 1 tablet by mouth once daily Hydrochlorothiazide 25 mg tablet Discontinued 25 mg PO DAILY October 02, 2018 1:00am May 20, 2020 3:59pm Start: 09-18-2018 End: 10-02-2018 take 1 capsule by mouth once daily Hydrochlorothiazide 12.5 mg capsule Discontinued 12.5 mg PO DAILY 30 September 20, 2018 3:52pm October 02, 2018 4:30pm hydroCHLOROthiazide 12.5 mg / lisinopril 20 mg oral tablet (17 sources) Thiazide Diuretic, Angiotensin Converting Enzyme Inhibitor Start: 11-11-2014 End: 09-15-2017 Lisinopril-Hydrochlorothiazi de 1 EACH tablet Discontinued 1 {tbl} PO DAILY November 11, 2014 1:00am September 15, 2017 12:35pm blood pressure Start: 11-11-2014 End: 09-15-2017 take 1 tablet by mouth once daily Lisinopril-Hydrochlorothiazide Discontin ued 1 TABLET PO DAILY November 11, 2014 12:00am September 15, 2017 11:35am lidocaine 0.05 mg/mg medicated patch (17 sources) Antiarrhythmic, Amide Local Anesthetic Start: 12-13-2022 End: 09-14-2023 Lidocaine (Lidoderm) 5 % adhesive patch,medicated Discontinued 1 NMA TOPICAL DAILY as needed for pain 15 0 December 14, 2022 12:27am March 09, 2023 8:32am leave on most painful area for up to 12 hrs magnesium sulfate 1 g in dextrose 5 % 100 mL IVPB (2 sources) Start: 11-19-2019 End: 11-19-2019 magnesium sulfate 1 g in dextrose 5 % 100 mL IVPB Start: 11-17-2019 End: 11-17-2019 magnesium sulfate 1 g in dex trose 5 % 100 mL IVPB meloxicam (14 sources) Nonsteroidal Anti-inflammatory Drug End: 03-21-2025 Meloxicam (MOBIC PO) Take by mouth 1 (one) time each day. 03/21/2025 Discontinued (Therapy completed) Meloxicam (MOBIC PO) Take by mouth 1 (one) time each day. Active Meloxicam (MOBIC PO) Take by mouth 1 (one) time each day. 0 Active 24 hr metFORMIN hydrochloride 500 mg extended release oral tablet (20 sources) Biguanide Start: 08-09-2022 End: 03-21-2025 take 1 tablet by mouth every twenty-four hours in the morning metFORMIN XR (Glucophage-XR) 500 MG 24 hr tablet Take 500 mg by mouth in the morning and 500 mg in the evening. 08/09/2022 03/21/2025 Discontinued (Therapy completed) Start: 11-24-2020 End: 01-21-2025 take 1 tablet by mouth twice daily Metformin 500 mg tablet extended release 24 hr Discontinued 500 mg PO TWICE A DAY November 24, 2020 1:00am January 14, 2025 3:48pm dm Start: 03-08-2019 End: 11-24-2020 take 1 tablet by mouth twice daily Metformin 500 mg tablet Discontinued 500 mg PO TWICE A DAY March 08, 2019 12:00am November 24, 2020 4:30pm Start: 11-01-2017 End: 08-28-2018 take 1 tablet by mouth once daily Metformin 500 MG tablet Discontinued 500 mg PO DAILY November 01, 2017 1:04pm August 28, 2018 4:45pm Start: 09-20-2017 take 1 tablet by nisha once daily METFORMIN HCL ER (OSM) 1000 MG [id number] One tablet by mouth daily METFORMIN HCL [id number] Ariane Ivey RN Start: 09-20-2017 take 2 tablets by mo [facility] once daily GLUCOPHAGE XR 500 MG [id number] Two tablets by mouth daily METFORMIN HCL [id number] Rom Vora MD Start: 09-15-2017 End: 11-01-2017 take 2 tablets by mouth once daily Metformin 500 MG tablet Discontinued 1000 mg PO DAILY 60 September 15, 2017 1:00am November 01, 2017 1:05pm Start: 09-15-2017 End: 11-01-2017 take 1000 mg by mouth once daily Metformin Discontinued 1000 MG PO DAILY 60 September 15, 2017 12:00am November 01, 2017 12:05pm Comment on above: Take 500 mg by mouth twice daily. Mounjaro 5 MG/0.5ML solution pen-injector (5 sources) Start: 01-18-2023 End: 03-21-2025 Mounjaro 5 MG/0.5ML solution pen-injector INJECT 5 mg under skin weekly 01/18/2023 03/21/2025 Discontinued (Therapy completed) Start: 01-18-2023 Mounjaro 5 MG/ 0.5ML solution pen-injector INJECT 5 mg under skin weekly 01/18/2023 Active naloxone 4 mg/actuation nasa l spray (NARCAN) (6 sources) Start: 12-24-2024 End: 01-21-2025 naloxone 4 mg/actuation nasa l spray (NARCAN) Use 1 spray in one nostril as needed for overdose. May repeat every 2 to 3 min in alternating nostrils until medical assistance is available 1 Each 12/24/2024 01/21/2025 Discontinued Start: 12-24-2024 naloxone 4 mg/ actuation nasal spray (NARCAN) Use 1 spray in one nostril as needed for overdose. May repeat every 2 to 3 min in alternating nostrils until medical assistance is available 1 Each 12/24/2024 Active Drug Treatment Unknown - unknown (3 sources) No information available. omeprazole 40 mg delayed release oral capsule (17 sources) Proton Pump Inhibitor Start: 06-09-20 End: 09-28-20 take 1 capsule by mouth once daily Omeprazole 40 mg capsule,delayed release(DR/EC) Discontinued 40 mg PO DAILY 90 0 June 09, 2021 12:00am September 28, 2021 3:39pm oxyCODONE hydrochloride 5 mg oral tablet (13 sources) Opioid Agonist Start: 12-25-19 End: 02-02-20 Oxycodone 5 mg Tablet Discontinued 10 mg PO 0700,2200 28 7 0 January 14, 2025 February 01, 2025 3:32pm History of laminectomy Radiculopathy due to cervical spondylosis at multiple levels Other specified postprocedural states Other spondylosis with radiculopathy, cervical region take 1-2 tabs every 4 hours as needed for pain. 1 tab if pain is 3-5 and 2 tabs if pain is > 5 microencapsulated potassium chloride 10 meq extended release oral tablet (2 sources) Start: 11-17-19 End: 11-18-19 potassium chloride (KLOR-CON M) extended release tablet 40 mEq ticagrelor 90 mg oral tablet (20 sources) Start: 09-15-20 17 End: 11-01-19 18 take 1 tablet by mouth twice daily Ticagrelor 90 MG tablet Discontinued 90 mg PO TWICE A DAY 60 October 13, 2017 7:02pm November 01, 2017 1:03pm Tirzepatide (1 source) Start: 03-09-20 End: 12-14-19 Tirzepatide (Mounjaro) 2.5 mg/0.5 mL pen injector Discontinued 2.5 mg SC EVERY WEEK March 09, 2023 12:00am December 14, 2024 3:23pm Tirzepatide (Mounjaro) 2.5 mg/0.5 mL pen injector (11 sources) Start: 03-09-20 End: 12-14-19 Tirzepatide (Mounjaro) 2.5 mg/0.5 mL pen injector Discontinued 2.5 mg SC EVERY WEEK March 09, 2023 12:00am December 14, 2024 3:23pm Start: 03-09-2023 End: 12-14-2024 Tirzepatide (Mounjaro) 2.5 m g/0.5 mL pen injector Discontinued 2.5 mg SC EVERY WEEK March 08, 2023 11:00pm December 14, 2024 2:23pm Start: 03-09-2023 Tirzepatide (M ounjaro) 2.5 mg/0.5 mL pen injector Active 2.5 MG SC EVERY WEEK March 08, 2023 11:00pm Start: 03-09-2023 Tirzepatide (M ounjaro) 2.5 mg/0.5 mL pen injector Active 2.5 MG SC EVERY WEEK March 09, 2023 12:00am tiZANidine 2 mg oral tablet (6 sources) Central alpha-2 Adrenergic Agonist Start: 01-14-2025 End: 02-01-2025 take 1 tablet by mouth twice daily Tizanidine 2 mg Tablet Discontinued 2 mg PO TWICE A DAY 14 January 14, 2025 12:00am February 01, 2025 3:32pm Umeclidinium (6 sources) Anticholinergic Start: 01-14-2025 End: 02-01-2025 take 1 ug by inhalation once daily Umeclidinium (Incruse Ellipta) 62.5 mcg/actuation Blister With Device Discontinued 62.5 ug INHALATION DAILY 1 January 14, 2025 12:00am February 01, 2025 3:53pm 1 inhalation daily Start: 01-14-2025 End: 02-01-2025 take 1 ug by inhalation once daily Umeclidinium (Incruse Ellipta) 62.5 mcg/actuation Blister With Device Discontinued 62.5 ug INHALATION DAILY January 14, 2025 12:00am February 01, 2025 3:53pm 1 inhalation daily Start: 01-14-2025 take 1 ug by inhalat ion once daily Umeclidinium (Incruse Ellipta) 62.5 mcg/actuation Blister With Device Active 62.5 ug INHALATION DAILY January 14, 2025 12:00am 1 inhalation daily 200 ml vancomycin 5 mg/ml injection (1 source) Glycopeptide Antibacterial Start: 11-19-2019 End: 11-19-2019 vancomycin (VANCOCIN) 1000 mg in dextrose 5% 200 mL IVPB Problems Active Problems Problem Classification Problem Date Documented Da te Episodic/Chronic Acute myocardial infarction (7 sources) Non-ST elevation (NSTEMI) myocardial infarction; Translations: [Non-ST elevation (NSTEMI) myocardial infarction] Onset: 09-13-2017 09-13-2017 Chronic Anxiety disorders (20 sources) Anxiety; Translations: [Anxiety disorder, unspecified] Onset: 11-20-2019 11-20-2019 Chronic Cancer of bladder (20 sources) Malignant tumor of urinary bladder; Translations: [Malignant neoplasm of bladder, unspecified] Onset: 01-15-2025 09-17-2018 Chronic Cardiac dysrhythmias (20 sources) Sustained ventricular tachycardia; Translations: [Ventricular tachycardia, monomorphic] Onset: 09-13-2017 Resolved: 01-06-2023 09-13-2017 Chronic Comment on above: S/P cardioversion in ED; Ablation with Dr. Kali almonte at [facility] on 02/22/2022; Cardiac dysrhythmias (17 sources) Bradycardia; Translations: [Bradycardia, unspecified] 11-25-2019 Episodic Chronic obstructive pulmonary disease and bronchiectasis (20 sources) Chronic obstructive lung disease; Translations: [Acute exacerbation of chronic obstructive airways disease] Onset: 01-15-2025 Chronic Conduction disorders (20 sources) Cardiac defibrillator in situ; Translations: [Presence of automatic (implantable) cardiac defibrillator] Onset: 10-24-2019 11-27-2019 Chronic Congestive heart failure; nonhypertensive (20 sources) Acute systolic heart failure; Translations: [Acute systolic (congestive) heart failure] Onset: 11-20-2019 Resolved: 03-21-2025 11-20-2019 Chronic Coronary atherosclerosis and other heart disease (20 sources) Coronary atherosclerosis; Translations: [Multi vessel coronary artery disease] Onset: 09-13-2017 09-13-2017 Chronic Comment on above: BERT to LCX 08/2017; staged complex PCI with BERT to PDA and RCA 09/2017; Diabetes mellitus with complications (1 source) Type 2 diabetes mellitus with unspecified complications; Translations: [Type 2 diabetes mellitus with unspecified complications] Onset: 07-06-2025 Chronic Diabetes mellitus without complication (20 sources) Type 2 diabetes mellitus without complication; Translations: [Type 2 diabetes mellitus without complications] Onset: 09-20-2017 09-20-2017 Chronic Disorders of lipid metabolism (20 sources) Hyperlipidemia; Translations: [Hyperlipidemia, unspecified] Onset: 11-17-2019 11-17-2019 Chronic Essential hypertension (20 sources) Hypertensive disorder; Translations: [Essential (primary) hypertension] Onset: 09-20-2017 Resolved: 08-26-2020 09-20-2017 Chronic Comment on above: CONTROLLED ON MED Mood disorders (1 source) Mood disorders; Translations: [Depression, unspecified] Onset: 01-15-2025 Nonspecific chest pain (20 sources) Chest pain; Translations: [Chest pain, unspecified] Onset: 11-25-2019 11-27-2019 Episodic Other aftercare (1 source) Drug therapy finding; Translations: [Encounter for therapeutic drug level monitoring] 09-14-2023 Episodic Other aftercare (2 sources) Long-term current use of drug therapy; Translations: [Encounter for therapeutic drug level monitoring] 11-16-2024 Episodic Other aftercare (8 sources) Long-term current use of amiodarone; Translations: [Other moth exterminator (current) drug therapy] 02-01-2025 Episodic Other and ill-defined heart disease (17 sources) Cardiomegaly; Translations: [Severe left ventricular hypertrophy] 11-25-2019 Chronic Other circulatory disease (17 sources) History of cardiomyopathy; Translations: [Personal history of other diseases of the circulatory system] 11-17-2019 Episodic Other connective tissue disease (6 sources) History of cervical spine fusion; Translations: [Arthrodesis status] 01-21-2025 Episodic Other connective tissue disease (1 source) Arthrodesis status; Translations: [S/P cervical spinal fusion] Onset: 06-04-2025 Episodic Other gastrointestinal disorders (20 sources) Stool DNA-based colorectal cancer screening positive; Translations: [Other fecal abnormalities] Onset: 12-29-2022 06-02-2021 Episodic Other hereditary and degenerative nervous system conditions (1 source) Myelopathy in diseases classified elsewhere; Translations: [Myelopathy in diseases classified elsewhere] Onset: 01-15-2025 Chronic Other lower respiratory disease (17 sources) Dyspnea; Translations: [Shortness of breath] 05-03-2019 Episodic Other lower respiratory disease (10 sources) Hypoxemia; Translations: [Hypoxemia] 12-28-2024 Episodic Other lower respiratory disease (10 sources) Multiple nodules of lung; Translations: [Other nonspecific abnormal finding of lung field] 12-29-2024 Episodic Other nervous system disorders (20 sources) Cervical myelopathy; Translations: [Disease of spinal cord, unspecified] Onset: 12-21-2024 12-21-2024 Chronic Other nervous system disorders (3 sources) Unable to walk; Translations: [Difficulty in walking, not elsewhere classified] 12-14-2024 Chronic Other nervous system disorders (1 source) Other chronic pain; Translations: [Other chronic pain] Onset: 01-15-2025 Chronic Other nervous system disorders (1 source) Disease of spinal cord, unspecified; Translations: [Disease of spinal cord, unspecified] Onset: 12-27-2024 Chronic Other nervous system disorders (7 sources) Paresthesia; Translations: [Paresthesia of skin] 12-15-2024 Episodic Other nervous system disorders (7 sources) Paresthesia of right lower limb; Translations: [Paresthesia of skin] 11-29-2024 Episodic Other nutritional; endocrine; and metabolic disorders (20 sources) Body mass index 30+ - obesity; Translations: [Body mass index (BMI) 32.0-32.9, adult] Onset: 09-20-2017 11-20-2019 Chronic Other nutritional; endocrine; and metabolic disorders (14 sources) Obese class I; Translations: [Obesity, Class I, BMI 30-34.9] Onset: 08-24-2022 08-24-2022 Chronic Other upper respiratory disease (10 sources) Acute bronchospasm; Translations: [Acute bronchospasm] 01-03-2025 Episodic Zuly-; endo-; and myocarditis; cardiomyopathy (except that caused by tuberculosis or sexually transmitted disease) (20 sources) Dilated cardiomyopathy; Translations: [Dilated cardiomyopathy] Onset: 01-15-2025 Chronic Comment on above: EF 45-50% on ECHO do ne at [facility] 12/21/24 Zuly-; endo-; and myocarditis; cardiomyopathy (except that caused by tuberculosis or sexually transmitted disease) (20 sources) Pericardial effusion; Translations: [Acute pericarditis] Onset: 11-27-2019 Resolved: 03-21-2025 11-27-2019 Episodic Residual codes; unclassified (17 sources) Hypersomnia; Translations: [Hypersomnia, unspecified] 11-25-2019 Chronic Residual codes; unclassified (17 sources) History of lumbar discectomy; Translations: [Other specified postprocedural states] 09-28-2021 Episodic Residual codes; unclassified (17 sources) Tobacco user; Translations: [Tobacco use] 03-08-2019 Episodic Residual codes; unclassified (10 sources) Insomnia; Translations: [Insomnia, unspecified] 01-01-2025 Episodic Spondylosis; intervertebral disc disorders; other back problems (13 sources) Other spondylosis with radiculopathy, cervical region; Translations: [Radiculopathy due to cervical spondylosis at multiple levels] Onset: 01-15-2025 12-25-2024 Chronic Sprains and strains (7 sources) Low back strain; Translations: [Strain of muscle, fascia and tendon of lower back, initial encounter] 12-13-2022 Episodic Substance-related disorders (20 sources) Nicotine dependence; Translations: [Nicotine dependence, unspecified, uncomplicated] Onset: 09-20-2017 09-20-2017 Chronic Comment on above: Quit in 2019 Unclassified (1 source) Body mass index (BMI) 32.0-32.9, adult; Translations: [Body mass index (BMI) 32.0-32.9, adult] Onset: 09-20-2017 09-20-2017 Chronic Unclassified (7 sources) Placement of stent in coronary artery ; Translations: [Presence of coronary angioplasty implant and graft] Onset: 09-13-2017 09-13-2017 Unclassified (4 sources) office will call to schedule appointment Unclassified (4 sources) office will call to make appointment Unclassified (4 sources) Needs appt [facility] or [facility] cannot start until pt is seen in the office Unclassified (4 sources) History of cervical spine fusion 01-21-2025 Unclassified (1 source) Ventricular tachycardia, unspecified (HCC); Translations: [Ventricular tachycardia, unspecified (HCC)] Onset: 08-09-2022 Unclassified (2 sources) Low back pain, unspecified; Translations: [Low back pain, unspecified] Onset: 12-11-2024 Past or Other Problems Problem Classification Problem Date Documented Date Episodic/Chronic Acute posthemorrhagic anemia (13 sources) Acute posthemorrhagic anemia; Translations: [Acute posthemorrhagic anemia] Onset: 01-15-2025 12-25-2024 Episodic Coma, stupor, brain damage (1 source) Daytime somnolence; Translations: [Somnolence] Onset: 09-20-2017 09-20-2017 Episodic Coronary atherosclerosis and other heart disease (20 sources) Stented coronary artery; Translations: [Presence of coronary angioplasty implant and graft] Onset: 09-23-2017 Episodic Comment on above: BERT to LCX 08/2017; staged complex PCI with BERT to PDA and RCA 09/2017; Genitourinary symptoms and ill-defined conditions (13 sources) Retention of urine; Translations: [Retention of urine, unspecified] Onset: 01-15-2025 12-25-2024 Episodic Malaise and fatigue (17 sources) Asthenia; Translations: [Other malaise] Onset: 12-20-2024 12-25-2024 Episodic Other and ill-defined heart disease (20 sources) Heart disease; Translations: [Heart disease, unspecified] Onset: 02-22-2022 Resolved: 01-06-2023 Chronic Other lower respiratory disease (1 source) Hypoxemia; Translations: [Hypoxemia] Onset: 01-15-2025 Episodic Other lower respiratory disease (1 source) Other nonspecific abnormal finding of lung field; Translations: [Other nonspecific abnormal finding of lung field] Onset: 01-15-2025 Episodic Other nervous system disorders (1 source) Paresthesia of skin; Translations: [Paresthesia of skin] Onset: 12-23-2024 Episodic Other nervous system disorders (1 source) Other lack of coordination; Translations: [Other lack of coordination] Onset: 12-20-2024 Episodic Other non-traumatic joint disorders (15 sources) Pain in lower limb; Translations: [Pain in unspecified knee] Onset: 03-07-2006 03-07-2006 Episodic Other non-traumatic joint disorders (1 source) Pain in right knee; Translations: [Pain in right knee] Onset: 11-23-2024 Episodic Other upper respiratory disease (1 source) Acute bronchospasm; Translations: [Acute bronchospasm] Onset: 01-15-2025 Episodic Residual codes; unclassified (20 sources) Acute pain; Translations: [Pain, unspecified] Onset: 11-21-2019 11-21-2019 Episodic Residual codes; unclassified (17 sources) History of cardiac catheterization; Translations: [Other specified postprocedural states] Onset: 11-07-2019 11-16-2019 Episodic Comment on above: Global LV systolic d ysfunction- Severe; LVEF: by LV gram 25-30 %; Non obstructive coronary arteries.Widely patent LCX, RCA and PDA stents with minimal ISR. Non-obstructive disease of proximal LAD.Sleep study to eval for TIFFANIE. Refer to Dr Booth for AICD. 30 day event monitor to quantify PVCs and eval for wide complex tachycardia. Per BORIS @ [facility]. Residual codes; unclassified (13 sources) Other specified postprocedural states; Translations: [History of laminectomy] Onset: 01-15-2025 12-25-2024 Episodic Comment on above: 12/20/24 at [facility] by Rosalinda Mcdermott. Spondylosis; intervertebral disc disorders; other back problems (20 sources) Spinal stenosis in cervical region; Translations: [Spinal stenosis, cervical region] Onset: 12-14-2024 12-19-2024 Episodic Comment on above: multilevel Substance-related disorders (1 source) Other psychoactive substance use, unspecified with psychoactive substance-induced sleep disorder; Translations: [Other psychoactive substance use, unspecified with psychoactive substance-induced sleep disorder] Onset: 01-15-2025 Episodic Unclassified (1 source) Ventricular tachycardia, unspecified (HCC); Translations: [Ventricular tachycardia, unspecified (HCC)] Onset: 03-21-2025 Results Test Name Value Interpretation Reference Range Facility PT D/C Summary (1)on 025 PT D/C Summary (1) Normal [facility] Re-Evaluation - PT (1)on Re-Evaluation - PT (1) Normal [facility] Absolute lymphocyte countOrd ered By: Reagan Soto on 06-19-2025 Lymphocytes Auto (Unsp spec) [#/Vol] 2.01 10*3/uL 0.83-4.51 [facility] Absolute neutrophil countOrd ered By: Reagan Soto on 06-19-2025 Neutrophils (Bld) [#/Vol] 6.4 10*3/uL 2.0-7.7 [facility] Anion gap in Serum or Plasma Ordered By: Reagan Soto on 06-19-2025 Anion gap [Moles/Vol] 14 mmol/L 03-07 [facility] Automated lymphocyte count a s percentage of total leukocytesOrdered By: Reagan Soto on 06-19-2025 Lymphocytes/100 WBC Auto (Unsp spec) 21.2 % - [facility] BUN/creatinine ratioOrdered By: Reagan Soto on 06-19-2025 Urea nitrogen/Creatinine [Mass ratio] 36.4 mg/mg High 10- [facility] Basophil percentageOrdered B y: Reagan Soto on 06-19-2025 Basophils/100 WBC (Bld) 0.8 % 0-1 [facility] Bilirubin, totalOrdered By: Reagan Soto on 06-19-2025 Bilirubin [Mass/Vol] 0.28 mg/dL 0.00-1.30 [facility] CBC W/Diff, Automatedon 05-25 Absolute Lymph 2.01 X10 3/uL Normal 0.83-4.51 [facility] Comment on above: Order Comment: Order Date: 06/19/25Order Info: 0184-1 - CBCD Performed By: #### L 100.0100, L501.9985, L500.4050, L500.4100 ####[facility] [address] [place], [address] Absolute Neut 6.4 X10 3/uL Normal 2.0-7.7 [facility] Comment on above: Order Comment: Order Date: 06/19/25Order Info: 0184-1 - CBCD Performed By: #### L 100.0100, L501.9985, L500.4050, L500.4100 ####[facility] [address] [place], [address] Basophils/100 WBC (Bld) 0.8 % Normal 0-1 [facility] Comment on above: Order Comment: Order Date: 06/19/25Order Info: 0184-1 - CBCD Performed By: #### L 100.0100, L501.9985, L500.4050, L500.4100 ####[facility] [address] [place], [address] Eosinophils/100 WBC (Bld) 2.1 % Normal 0-5 [facility] Comment on above: Order Comment: Order Date: 06/19/25Order Info: 0184-1 - CBCD Performed By: #### L 100.0100, L501.9985, L500.4050, L500.4100 ####[facility] [address] [place], [address] Erythrocyte distribution width (RBC) [Ratio] 15.2 % High 11.6-14.6 [facility] Comment on above: Order Comment: Order Date: 06/19/25Order Info: 0184-1 - CBCD Performed By: #### L 100.0100, L501.9985, L500.4050, L500.4100 ####[facility] [address] [place], [address] Hematocrit (Bld) [Volume fraction] 46.3 % Normal 40-54 [facility] Comment on above: Order Comment: Order Date: 06/19/25Order Info: 0184-1 - CBCD Performed By: #### L 100.0100, L501.9985, L500.4050, L500.4100 ####[facility] [address] [place], [address] Hemoglobin (Bld) [Mass/Vol] 15.6 g/dL Normal 13.0-16.5 [facility] Comment on above: Order Comment: Order Date: 06/19/25Order Info: 0184-1 - CBCD Performed By: #### L 100.0100, L501.9985, L500.4050, L500.4100 ####[facility] [address] [place], [address] IG% 0.400 Normal 0.0-0.9 [facility] Comment on above: Order Comment: Order Date: 06/19/25Order Info: 018- - CBCD Result Comment: IG% - Immature Granulocytes (promyelocytes, myelocytes andmetamyelocytes) > 1% indicates that a LEFT SHIFT is Present. Performed By: #### L 100.0100, L501.9985, L500.4050, L500.4100 ####[facility] [address] [place], [address] Lymphocytes/100 WBC (Bld) 21.2 % Normal 19-41 [facility] Comment on above: Order Comment: Order Date: 06/19/25Order Info: 0184-1 - CBCD Performed By: #### L 100.0100, L501.9985, L500.4050, L500.4100 ####[facility] [address] [place], [address] MCH (RBC) [Entitic mass] 31.5 pg Normal 27.0-32.0 [facility] Comment on above: Order Comment: Order Date: 06/19/25Order Info: 0184-1 - CBCD Performed By: #### L 100.0100, L501.9985, L500.4050, L500.4100 ####[facility] [address] [place], [address] MCHC (RBC) [Mass/Vol] 33.7 g/dL Normal 32-36 [facility] Comment on above: Order Comment: Order Date: 06/19/25Order Info: 0184-1 - CBCD Performed By: #### L 100.0100, L501.9985, L500.4050, L500.4100 ####[facility] [address] [place], [address] MCV (RBC) [Entitic vol] 93.5 fL Normal 80-94 [facility] Comment on above: Order Comment: Order Date: 06/19/25Order Info: 018- - CBCD Performed By: #### L 100.0100, L501.9985, L500.4050, L500.4100 ####[facility] [address] [place], [address] Monocytes/100 WBC (Bld) 8.1 % Normal 0-10 [facility] Comment on above: Order Comment: Order Date: 06/19/25Order Info: 018- - CBCD Performed By: #### L 100.0100, L501.9985, L500.4050, L500.4100 ####[facility] [address] [place], [address] Neutrophils/100 WBC (Bld) 67.4 % Normal 47-70 [facility] Comment on above: Order Comment: Order Date: 06/19/25Order Info: 018-1 - CBCD Performed By: #### L 100.0100, L501.9985, L500.4050, L500.4100 ####[facility] [address] [place], [address] Nucleated RBC (Bld) [#/Vol] 0 10*3/uL Normal 0-5 [facility] Comment on above: Order Comment: Order Date: 06/19/25Order Info: 0184-1 - CBCD Performed By: #### L 100.0100, L501.9985, L500.4050, L500.4100 ####[facility] [address] [place], [address] Platelet mean volume (Bld) [Entitic vol] 11.2 fL Normal 6.2-12.0 [facility] Comment on above: Order Comment: Order Date: 06/19/25Order Info: 0184-1 - CBCD Performed By: #### L 100.0100, L501.9985, L500.4050, L500.4100 ####[facility] [address] [place], [address] Platelets (Bld) [#/Vol] 205 10*3/uL Normal 150-450 [facility] Comment on above: Order Comment: Order Date: 06/19/25Order Info: 018- - CBCD Performed By: #### L 100.0100, L501.9985, L500.4050, L500.4100 ####[facility] [address] [place], [address] RBC (Bld) [#/Vol] 4.95 10*6/uL Normal 4.6-6.[address] [facility] Comment on above: Order Comment: Order Date: 06/19/25Order Info: 018- - CBCD Performed By: #### L 100.0100, L501.9985, L500.4050, L500.4100 ####[facility] [address] [place], [address] RDW SD 52.5 fl High 35.1-43.9 [facility] Comment on above: Order Comment: Order Date: 06/19/25Order Info: 018-1 - CBCD Performed By: #### L 100.0100, L501.9985, L500.4050, L500.4100 ####[facility] [facility] [address] [place], [address] WBC (Bld) [#/Vol] 9.5 10*3/uL Normal 4.4-11.0 [facility] Comment on above: Order Comment: Order Date: 06/19/25Order Info: [id number] - CBCD Performed By: #### L 100.0100, L501.9985, L500.4050, L500.4100 ####[facility] [address] [place], [address] Calculated very low density lipoprotein (VLDL) cholesterol measurementOrdered By: Reagan Soto on 06-19-2025 Calculated very low density lipoprotein (VLDL) cholesterol measurement 20 mg/dL 5-40 [facility] Carbon dioxide, total [Moles /volume] in Central venous bloodOrdered By: Reagan Soto on 06-19-2025 CO2 [Moles/Vol] 22.0 mmol/L 21.0-32.0 [facility] Chloride assayOrdered By: Jackie Soto on 06-19-2025 Chloride [Moles/Vol] 102 mmol/L 98-108 [facility] Comprehensive Metabolic Prof ilon 06-19-2025 Albumin [Mass/Vol] 4.2 g/dL Normal 3.4-4.8 [facility] Comment on above: Order Comment: Order Date: 06/19/25Order Info: [id number] - CMPOrder Info: [id number] - LIPID Performed By: #### L 100.0100, L501.9985, L500.4050, L500.4100 ####[facility] [address] [place], [place], [id number] Albumin/Globulin [Mass ratio] 1.5 {ratio} Normal 0.9-2.4 [facility] Comment on above: Order Comment: Order Date: 06/19/25Order Info: [id number] - CMPOrder Info: [id number] - LIPID Performed By: #### L 100.0100, L501.9985, L500.4050, L500.4100 ####[facility] [address] [place], [address] ALK PHOS 80 U/L Normal 40-129 [facility] Comment on above: Order Comment: Order Date: 06/19/25Order Info: [id number] - CMPOrder Info: [id number] - LIPID Performed By: #### L 100.0100, L501.9985, L500.4050, L500.4100 ####[facility] [address] [place], [address] ALT [Catalytic activity/Vol] 9 U/L Normal <=46 [facility] Comment on above: Order Comment: Order Date: 06/19/25Order Info: [id number] - CMPOrder Info: [id number] - LIPID Performed By: #### L 100.0100, L501.9985, L500.4050, L500.4100 ####[facility] [address] [place], [address] AST [Catalytic activity/Vol] 13 U/L Normal <=37 [facility] Comment on above: Order Comment: Order Date: 06/19/25Order Info: [id number]- - CMPOrder Info: [id number] - LIPID Performed By: #### L 100.0100, L501.9985, L500.4050, L500.4100 ####[facility] [address] [place], [address] Bilirubin [Mass/Vol] 0.28 mg/dL Normal 0.00-1.30 [facility] Comment on above: Order Comment: Order Date: 06/19/25Order Info: [id number] - CMPOrder Info: [id number] - LIPID Performed By: #### L 100.0100, L501.9985, L500.4050, L500.4100 ####[facility] [address] [place], [address] BUN/CRE 36.4 RATIO High 10-20 [facility] Comment on above: Order Comment: Order Date: 06/19/25Order Info: [id number] - CMPOrder Info: [id number] - LIPID Performed By: #### L 100.0100, L501.9985, L500.4050, L500.4100 ####[facility] [address] [place], [address] Calcium [Mass/Vol] 9.3 mg/dL Normal 7.6-11.0 [facility] Comment on above: Order Comment: Order Date: 06/19/25Order Info: [id number] - CMPOrder Info: [id number] - LIPID Performed By: #### L 100.0100, L501.9985, L500.4050, L500.4100 ####[facility] [address] [place], [address] Chloride [Moles/Vol] 102 mmol/L Normal 98-108 [facility] Comment on above: Order Comment: Order Date: 06/19/25Order Info: 0786- - CMPOrder Info: [id number] - LIPID Performed By: #### L 100.0100, L501.9985, L500.4050, L500.4100 ####[facility] [address] [place], [address] CO2 [Moles/Vol] 22.0 mmol/L Normal 21.0-32.0 [facility] Comment on above: Order Comment: Order Date: 06/19/25Order Info: 0786- - CMPOrder Info: [id number] - LIPID Performed By: #### L 100.0100, L501.9985, L500.4050, L500.4100 ####[facility] [address] [place], [address] Creatinine [Mass/Vol] 0.65 mg/dL Low 0.70-1.20 [facility] Comment on above: Order Comment: Order Date: 06/19/25Order Info: [id number] - CMPOrder Info: [id number] - LIPID Performed By: #### L 100.0100, L501.9985, L500.4050, L500.4100 ####[facility] [address] [place], [address] GAP 14 Normal 5-15 [facility] Comment on above: Order Comment: Order Date: 06/19/25Order Info: 0786- - CMPOrder Info: [id number] - LIPID Performed By: #### L 100.0100, L501.9985, L500.4050, L500.4100 ####[facility] [address] [place], [address] GFR/1.73 sq M.predicted among non-blacks MDRD (S/P/Bld) [Vol rate/Area] 105 mL/min/{1.73_m2} Normal >60 [facility] Comment on above: Order Comment: Order Date: 06/19/25Order Info: 07 - CMPOrder Info: [id number] - LIPID Result Comment: mL/m in/1.73m2 CKD-EPI Creatinine Equation (2020) Performed By: #### L 100.0100, L501.9985, L500.4050, L500.4100 ####[facility] [address] [place], [address] Globulin (S) [Mass/Vol] 2.8 g/dL Normal 2.2-4.2 [facility] Comment on above: Order Comment: Order Date: 06/19/25Order Info: 0786- - CMPOrder Info: [id number] - LIPID Performed By: #### L 100.0100, L501.9985, L500.4050, L500.4100 ####[facility] [address] [place], [address] Glucose [Mass/Vol] 92 mg/dL Normal 70-99 [facility] Comment on above: Order Comment: Order Date: 06/19/25Order Info: 0786- - CMPOrder Info: [id number] - LIPID Performed By: #### L 100.0100, L501.9985, L500.4050, L500.4100 ####[facility] [address] [place], [address] Potassium [Moles/Vol] 4.2 mmol/L Normal 3.3-5.1 [facility] Comment on above: Order Comment: Order Date: 06/19/25Order Info: [id number] - CMPOrder Info: [id number] - LIPID Performed By: #### L 100.0100, L501.9985, L500.4050, L500.4100 ####[facility] [address] [place], [address] Sodium [Moles/Vol] 139 mmol/L Normal 133-145 [facility] Comment on above: Order Comment: Order Date: 06/19/25Order Info: 07- - CMPOrder Info: [id number] - LIPID Performed By: #### L 100.0100, L501.9985, L500.4050, L500.4100 ####[facility] [address] [place], [address] T PROT 6.9 g/dL Normal 5.9-8.4 [facility] Comment on above: Order Comment: Order Date: 06/19/25Order Info: [id number] - CMPOrder Info: [id number] - LIPID Performed By: #### L 100.0100, L501.9985, L500.4050, L500.4100 ####[facility] [address] [place], [address] Urea nitrogen [Mass/Vol] 24 mg/dL High 4-19 [facility] Comment on above: Order Comment: Order Date: 06/19/25Order Info: [id number] - CMPOrder Info: [id number] - LIPID Performed By: #### L 100.0100, L501.9985, L500.4050, L500.4100 ####[facility] [address] [place], [address] Eosinophil percentageOrdered By: Reagan Soto on 06-19-2025 Eosinophils/100 WBC (Bld) 2.1 % 0-5 [facility] Erythrocyte distribution wid th ratioOrdered By: Reagan Soto on 06-19-2025 Erythrocyte distribution width (RBC) [Ratio] 15.2 % High 11.6-14.6 [facility] Erythrocyte distribution wid th standard deviationOrdered By: Reagan Soto on 06-19-2025 Erythrocyte distribution width (RBC) [Ratio] 52.5 fl High 35.1-43.9 [facility] Glomerular filtration rate ( GFR) estimation/1.73 sq m using serum, plasma, or whole bOrdered By: Reagan Soto on 06-19-2025 GFR/1.73 sq M.predicted among non-blacks MDRD (S/P/Bld) [Vol rate/Area] 105 mL/min/{1.73_m2} >60 [facility] Comment on above: mL/min/1.73m2 CKD-EP I Creatinine Equation (2020) Hematocrit Auto (Bld) [Volum e fraction]Ordered By: Reagan Soto on 06-19-2025 Hematocrit (Bld) [Volume fraction] 46.3 % 40-54 [facility] Hemoglobin A1con 06-19-2025 HbA1c (Bld) [Mass fraction] 6.5 % High <=5.6 [facility] Comment on above: Order Comment: Order Date: 06/19/25Order Info: [id number] - A1C Result Comment: Norm al < 5.7 % Prediabetic 5.7 - 6.4 % Diabetic >or= 6.5 % Please note range changes. Performed By: #### L 100.0100, L501.9985, L500.4050, L500.4100 ####[facility] [address] [place], [address] Hemoglobin A1c percentageOrd ered By: Reagan Soto on 06-19-2025 HbA1c (Bld) [Mass fraction] 6.5 % High <5.7 [facility] Comment on above: Normal < 5.7 % Predi abetic 5.7 - 6.4 % Diabetic >or= 6.5 % Please note range changes. Hemoglobin measurementOrdere d By: Reagan Soto on 06-19-2025 Hemoglobin (Bld) [Mass/Vol] 15.6 g/dL 13.0-16.5 [facility] Immature granulocytes/100 WB C Auto (Bld)Ordered By: Reagan Soto on 06-19-2025 Immature granulocytes/100 WBC (Bld) 0.400 % 0.0-0.9 [facility] Comment on above: IG% - Immature Granu locytes (promyelocytes, myelocytes and metamyelocytes) > 1% indicates that a LEFT SHIFT is Present. LDL calc ser/plasOrdered By: Reagan Soto on 06-19-2025 Cholesterol in LDL [Mass/Vol] 112 mg/dL [facility] Comment on above: Toufhylqxr=470-537 m g/dL & Higher Puqc=899 mg/dL or greaterFriedwald Equation for LDL-C Laboratory - Chemistry and C hemistry - challengeOrdered By: Reagan Soto on 06-19-2025 AST [Catalytic activity/Vol] 13 U/L <38 [facility] Lipid Profileon 06-19-2025 CHOL:HDL 3.39 Normal [facility] Comment on above: Order Comment: Order Date: 06/19/25Order Info: [id number] - CMPOrder Info: [id number] - LIPID Performed By: #### L 100.0100, L501.9985, L500.4050, L500.4100 ####[facility] [address] [place], [place], [address] Cholesterol [Mass/Vol] 187 mg/dL Normal <=200 [facility] Comment on above: Order Comment: Order Date: 06/19/25Order Info: [id number] - CMPOrder Info: [id number] - LIPID Result Comment: Chol esterol level, Desirable <200 mg/dLBorderline high cholesterol 200-239 mg/dLHigh cholesterol >=240 mg/dLRecommendations of the NCEP Adult Treatment Panel for thefollowing risk-cutoff thresholds for the [place] Americanpopulation. Performed By: #### L 100.0100, L501.9985, L500.4050, L500.4100 ####[facility] [address] [place], [address] Cholesterol in HDL [Mass/Vol] 55 mg/dL Normal [facility] Comment on above: Order Comment: Order Date: 06/19/25Order Info: 0786- - CMPOrder Info: [id number] - LIPID Result Comment: Lizbeth onal Cholesterol Education Program (NCEP) guidelines:<40 mg/dL: Low HDL-cholesterol (major risk factor for CHD)>= 60 mg/dL: High HDL-cholesterol (negative risk factor forCHD)HDL-cholesterol is affected by a number of factors, e.g.smoking, exercise, hormones, sex and age. Performed By: #### L 100.0100, L501.9985, L500.4050, L500.4100 ####[facility] [address] [place], [address] Cholesterol in LDL [Mass/Vol] 112 mg/dL Normal [facility] Comment on above: Order Comment: Order Date: 06/19/25Order Info: 0786- - CMPOrder Info: [id number] - LIPID Result Comment: Bord xmqvhd=876-299 mg/dL Higher Cytl=407 mg/dL or greaterFriedwald Equation for LDL-C Performed By: #### L 100.0100, L501.9985, L500.4050, L500.4100 ####[facility] [address] [place], [address] Cholesterol in VLDL [Mass/Vol] 20 mg/dL Normal 5-40 [facility] Comment on above: Order Comment: Order Date: 06/19/25Order Info: [id number] - CMPOrder Info: [id number] - LIPID Performed By: #### L 100.0100, L501.9985, L500.4050, L500.4100 ####[facility] [address] [place], [address] Triglyceride [Mass/Vol] 98 mg/dL Normal [facility] Comment on above: Order Comment: Order Date: 06/19/25Order Info: [id number]- - CMPOrder Info: [id number] - LIPID Result Comment: The drugs N-Acetylcysteine and Metamizole may falselydepress this assay.Normal range: <150 mg/dLBorderline High: 150-199 mg/dLHigh: 200-499 mg/dLVery High: >500 mg/dL Performed By: #### L 100.0100, L501.9985, L500.4050, L500.4100 ####[facility] [address] [place], [place], [id number] MCV (mean corpuscular volume ) determinationOrdered By: Reagan Soto on 06-19-2025 MCV (RBC) [Entitic vol] 93.5 fL 80-94 [facility] Mean corpuscular hemoglobin (MCH) determinationOrdered By: Reagan Soto on 06-19-2025 MCH (RBC) [Entitic mass] 31.5 pg 27.0-32.0 [facility] Mean corpuscular hemoglobin concentration (MCHC) determinationOrdered By: Reagan Soto on 06-19-2025 MCHC (RBC) [Mass/Vol] 33.7 g/dL 32-36 [facility] Mean platelet volume determi nationOrdered By: Reagan Soto on 06-19-2025 Platelet mean volume (Bld) [Entitic vol] 11.2 fL 6.2-12.0 [facility] Microalb:Creat Ratio,Random URon 06-19-2025 Creatinine [Mass/Vol] 114.00 mg/dL Normal 39.00- 259. 00 [facility] Comment on above: Order Comment: Order Date: 05/01/24Order Info: [id number] - MIACREOrder Date: 06/19/25Order Info: [id number] - MIALB Performed By: #### L 502.0250 ####[facility] [address] [place], [place], [id number] MALB:CREAT 31.1 mg/g CRE High <30 mg/g CRE [facility] Comment on above: Order Comment: Order Date: 05/01/24Order Info: [id number] - MIACREOrder Date: 06/19/25Order Info: [id number] - MIALB Performed By: #### L 502.0250 ####[facility] [address] [place], [place], [address] MICROALBUMIN,UR 35.4 mg/L Normal <20 mg/L [facility] Comment on above: Order Comment: Order Date: 05/01/24Order Info: [id number] - MIACREOrder Date: 06/19/25Order Info: [id number] - MIALB Performed By: #### L 502.0250 ####[facility] [address] [place], [place], [address] Monocyte percentageOrdered B y: Reagan Soto on 06-19-2025 Monocytes/100 WBC (Bld) 8.1 % 0-10 [facility] Neutrophil percentageOrdered By: Reagan Soto on 06-19-2025 Neutrophils/100 WBC (Bld) 67.4 % 47-70 [facility] Nucleated red blood cell per centageOrdered By: Reagan Soto on 06-19-2025 Nucleated RBC/100 WBC (Bld) [Ratio] 0 % 0-5 [facility] Platelet countOrdered By: Jackie Soto on 06-19-2025 Platelets (Bld) [#/Vol] 205 10*3/uL 150-450 [facility] Potassium measurement (mass/ volume)Ordered By: Reagan Soto on 06-19-2025 Potassium (Unsp spec) [Mass/Vol] 4.2 mmol/L 3.3-5.1 [facility] RBC Auto (Bld) [#/Vol]Ordere d By: Reagan Soto on 06-19-2025 RBC (Bld) [#/Vol] 4.95 10*6/uL 4.6-6.[address] [facility] Random urine creatinine amaya urement (mass/volume)Ordered By: Reagan Soto on 06-19-2025 Creatinine Unsp time (U) [Mass/Vol] 114.00 mg/dL 39.00-259. 00 [facility] Screening total cholesterol/ high density lipoprotein (HDL) cholesterol ratioOrdered By: Reagan Soto on 06-19-2025 Cholesterol.total/Choles terol in HDL [Mass ratio] 3.39 {ratio} [facility] Serum creatinine measurement (mass/volume)Ordered By: Reagan Soto on 06-19-2025 Creatinine [Mass/Vol] 0.65 mg/dL Low 0.70-1.20 [facility] Serum globulin measurementOr dered By: Reagan Soto on 06-19-2025 Globulin (S) [Mass/Vol] 2.8 g/dL 2.2-4.2 [facility] Serum glucose measurement (m ass/volume)Ordered By: Reagan Soto on 06-19-2025 Glucose [Mass/Vol] 92 mg/dL 70-99 [facility] Serum or plasma alanine ling otransferase (ALT) measurementOrdered By: Reagan Soto on 06-19-2025 ALT [Catalytic activity/Vol] 9 U/L <47 [facility] Serum or plasma albumin amaya urement (mass/volume)Ordered By: Reagan Soto on 06-19-2025 Albumin [Mass/Vol] 4.2 g/dL 3.4-4.8 [facility] Serum or plasma albumin/glob ulin mass ratioOrdered By: Reagan Soto on 06-19-2025 Albumin/Globulin [Mass ratio] 1.5 {ratio} 0.9-2.4 [facility] Serum or plasma alkaline nnamdi sphatase measurementOrdered By: Reagan Soto on 06-19-2025 ALP [Catalytic activity/Vol] 80 U/L 40-129 [facility] Serum or plasma calcium amaya urement (mass/volume)Ordered By: Reagan Soto on 06-19-2025 Calcium [Mass/Vol] 9.3 mg/dL 7.6-11.0 [facility] Serum or plasma cholesterol in HDL measurement (mass/volume)Ordered By: Reagan Soto on 06-19-2025 Cholesterol in HDL [Mass/Vol] 55 mg/dL >40 [facility] Comment on above: National Cholesterol Education Program (NCEP) guidelines:<40 mg/dL: Low HDL-cholesterol (major risk factor for CHD)>= 60 mg/dL: High HDL-cholesterol (negative risk factor for CHD)HDL-cholesterol is affected by a number of factors, e.g. smoking, exercise, hormones, sex and age. Serum or plasma cholesterol measurement (mass/volume)Ordered By: Reagan Soto on 06-19-2025 Cholesterol [Mass/Vol] 187 mg/dL <201 [facility] Comment on above: Cholesterol level, D esirable <200 mg/dLBorderline high cholesterol 200-239 mg/dLHigh cholesterol >=240 mg/dLRecommendations of the NCEP Adult Treatment Panel for the following risk-cutoff thresholds for the [place] population. Serum or plasma urea nitroge n measurement (mass/volume)Ordered By: Reagan Soto on 06-19-2025 Urea nitrogen [Mass/Vol] 24 mg/dL High 4-19 [facility] Sodium levelOrdered By: Reagan Soto on 06-19-2025 Sodium [Moles/Vol] 139 mmol/L 133-145 [facility] Total proteinOrdered By: Jonathan Soto on 06-19-2025 Protein [Mass/Vol] 6.9 g/dL 5.9-8.4 [facility] Triglycerides measurementOrd ered By: Reagan Soto on 06-19-2025 Triglyceride [Mass/Vol] 98 mg/dL <199 [facility] Comment on above: The drugs N-Acetylcy steine and Metamizole may falsely depress this assay. Normal range: <150 mg/dLBorderline High: 150-199 mg/dLHigh: 200-499 mg/dLVery High: >500 mg/dL Urine albumin measurement wi detection limit of 20 mg/L or less (mass/volume)Ordered By: Reagan Soto on 06-19-2025 Albumin DL <= 20 mg/L (U) [Mass/Vol] 35.4 mg/L <20 mg/L [facility] White blood cell (WBC) count Ordered By: Reagan Soto on 06-19-2025 WBC (Bld) [#/Vol] 9.5 10*3/uL 4.4-11.0 [facility] Re-Evaluation - PT (1)on Re-Evaluation - PT (1) Normal [facility] CNOVon 06-04-2025 CNOV Office Visit (NEAGCL M) -- FRANK ZIMMER ([id number]) 1960 Date Time Provider Department 06/04/25 2:00 PM LACEY MCDERMOTT NEAGCLM During your visit today, we recorded the following information about you: Pulse Respiration Blood pressure 60/minute 16/minute 129/78 Lacey Mcdermott MD 06/04/2025 2:21 PM Signed NEUROSURGERY FOLLOW UP OFFICE NOTE Lacey Mcdermott MD [facility] Date of visit: June 04, 2025 Patient Name: Mr.Barry Elle Zimmer Date of : 1960 Current Age: [age] year old Sex: male MRN/E# [id number] Last Office Visit: 03/04/2025 Chief Complaint: Patient presents with: Established Patient Past Medical/Surgical History: Frank Zimmer is a 64 year old, right handed male with a history of CAD and V-tach HPI: Mr. Zimmer presented to the office on 03/04/2025 when he was approximately 3 months after his posterior C2-T1 decompression and fusion for severe stenosis with myelopathy. He continued to make an excellent recovery, with improvement in his upper extremity pain, numbness, weakness, and strength. He was able to walk short distances with a walker now. His x-rays looked excellent and his incision was well-healed. I explained that he may wean out of his collar over the next week. He was already doing physical therapy and will continue this. I will titrate down his gabapentin; I ordered 300 mg for him to take once daily for a month, then he may discontinue. He was advised to follow up in the office in 3 months with xrays for re-evaluation, prompting his visit today. The patient presents to the office today and reports some neck achiness after using his wheelchair. Denies pain in his upper extremities. Endorses continued paresthesia in right small finger. He reports an improvement in his mobility since surgery and participation in physical therapy. He has been utilizing a walker and wheelchair for mobility. Denies any falls. Denies fevers, chills or drainage from incision site. Overall, he is pleased with the outcome of his surgery thus far. He is here for evaluation and plan of care. Symptoms: Neck achiness, continued paresthesia to right small finger, utilizes walker and wheelchair PREVIOUS CONSERVATIVE TREATMENTS: Gabapentin Physical therapy at [facility] PREVIOUS SURGERY: SURGERY #1: C2-T1 PCDF 12/20/2024 Pre-Surgical Symptoms: progressive myelopathy, inability to walk PAIN EVALUATION No data found in the last 1 encounters. PAST MEDICAL HISTORY Diagnosis Date CAD (coronary artery disease) V-tach (HCC) PAST SURGICAL HISTORY Procedure Laterality Date INSERT/REPL DEFIB LEAD/GENER OTHR PAST SURGICAL HISTORY OF WARTS RIGHT FOOT PAST SURGICAL HISTORY OF NASAL SURGERY PCI/STENT FAMILY HISTORY Problem Relation Age of Onset Diabetes Father Heart Father HEART DISEASE Heart Mother VALVE REPAIRED Hypertension Mother ALLERGIES Allergen Reactions Bees ANAPHALACTIC REACTION Morphine Vomiting Current Outpatient Medications Medication Sig Dispense Refill traMADol (ULTRAM) 50 mg tablet Take 1 oral Twice a day for 28 Days tamsulosin (FLOMAX) 0.4 mg Take 1 capsule by mouth once daily. nitroglycerin sublingual (NITROQUICK) 0.4 mg SL tablet up to max of 3 total doses. If no relief after 1 dose, call 911. fluticasone propion-salmeterol 232-14 mcg/actuation INHALE 1 PUFF BY MOUTH EVERY 12 HOURS rinse mouth after every use DULoxetine (CYMBALTA) 60 mg capsule Take 1 capsule by mouth once daily. aspirin, enteric coated (ASPIRIN, ENTERIC COATED) 81 mg EC tablet Take 1 tablet by mouth once daily. Patient should start on December 25, 2024. carvedilol (COREG) 12.5 mg tablet Take 1 tablet by mouth two times a day with meals. 180 tablet amiodarone (PACERONE) 200 mg tablet Take 1 tablet by mouth once daily. 90 tablet 0 lisinopril (ZESTRIL) 5 mg tablet Take 1 tablet by mouth once daily. (Patient taking differently: Take 2.5 mg by mouth once daily.) 90 tablet 0 JARDIANCE 25 mg tablet Take 25 mg by mouth daily with breakfast. furosemide (LASIX) 20 mg tablet Take 20 mg by mouth once daily. gabapentin (NEURONTIN) 300 mg capsule Take 1 capsule by mouth once daily for 30 days. 30 capsule 0 gabapentin (NEURONTIN) 300 mg capsule Take 1 capsule by mouth every 8 hours for 30 days. 0 rosuvastatin (CRESTOR) 40 mg tablet TAKE 1 TABLET BY MOUTH EVERY DAY nightly No current facility-administered medications for this visit. REVIEW OF SYSTEMS Review of Systems Constitutional: Negative for diaphoresis, fatigue and fever. HENT: Negative for drooling and trouble swallowing. Eyes: Negative for visual disturbance. Respiratory: Negative for cough, chest tightness and shortness of breath. Cardiovascular: Negative for chest pain, palpitations and leg swelling. Gastrointestinal: Negative for constipation, diarrhea and nausea. Endocrine: Ne (more content not included)... Normal [facility] XR CERVICAL 4V AP/LAT/FLX/EX Ton 06-04-2025 XR CERVICAL 4V AP/LAT/FLX/EXT * * *Final Report* * * DATE OF EXAM: Jun 04 2025 1:45PM A1X 5310 - XR CERVICAL 4V AP/LAT/FLX/EXT / PROCEDURE REASON: S/P cervical spinal fusion * * * * Physician Interpretation * * * * EXAMINATION: XR CERVICAL 4V AP/LAT/FLX/EXT HISTORY: s/p op 12/17/2024, follow up, no complaints S/P cervical spinal fusion . COMPARISON: Cervical spine radiographs 03/04/2025 TECHNIQUE: XR CERVICAL 4V AP/LAT/FLX/EXT Laterality: NOT APPLICABLE Number of different views (projections): 4 M: XB_1 FINDINGS: Surgical changes of posterior fusion spanning C2-T1. No hardware complication. Stable alignment. Severe degenerative changes. IMPRESSION: Postsurgical changes. Cell Pourer: PSCB Transcribe Date/Time: Jun 12 2025 8:14A Dictated by : PETR KENNEDY MD This examination was interpreted and the report reviewed and electronically signed by: PETR KENNEDY MD on Jun 12 2025 8:18AM EST [id number] Normal [facility] [id number] 05-20-2025 [facility] Misc. COMMENT Normal . [facility] Comment on above: Order Comment: [id number] 0MED TOX URINE RMT Result Comment: Test Ordered: [id number] Screen, Urine Negative ng/mL UI Reference Range: Vcrdje=175Pfnllejoemu test includes Amphetamine and Methamphetamine.Barbiturates Negative ng/mL UI Reference Range: Ovnfdh=572Hkmxzxerncipsjn Negative ng/mL UI Reference Range: Muhgwt=202Fszjkid (Metab.), Urine Negative ng/mL UI Reference Range: Rvlfcf=334Vmpiyae Negative ng/mL UI Reference Range: Rdxxmw=442Fektqm test includes Codeine, Morphine, Hydromorphone, Hydrocodone.6-Acetylmorphine, Urine Negative ng/mL UI Reference Range: Cutoff=10Oxycodone/Oxymorphone, Urine Negative ng/mL UI Reference Range: Czqkum=604Nemd includes Oxycodone and OxymorphonePCP, Urine Negative ng/mL UI Reference Range: Cutoff=25Methadone Screen, Urine Negative ng/mL UI Reference Range: Dvivgo=076Jffvftfuehtt, Urine Negative ng/mL UI Reference Range: Ujymiw=522Ylmliyid, Urine Negative ng/mL UI Reference Range: Cutoff=2.0Test includes Fentanyl and NorfentanylThis test was developed and its performance characteristicsdetermined by [employer]. It has not been cleared orapproved by the Food and Drug Administration.Tramadol Note: ng/mL UI See Final Results Reference Range: Wpjarn=008Ccxjmqqz Positive [A ] UI Reference Range: Rtlmzw=538Gyrrsbng Conf, [place], [place] 9520 ng/mL UI Reference Range: Alnehm=879Ypxdnmeuobxmc, Urine Negative ng/mL UI Reference Range: Cutoff=10Creatinine, Urine 121.0 mg/dL UI Reference Range: 20.0-300.0pH, Urine 5.0 UI Reference Range: 4.5-8.9Performed at: - [facility] [address] [place], [place] [id number] Director: Belia Jo PhD, Phone: [phone] at: [facility] [address] [id number] Director: Gerson Linton PhD, Phone: [phone] Performed By: #### L 3410.9992, L505.5000 ####[facility] [address] [place], [address] Amphetamine detection with 1 000 ng/mL as cutoffOrdered By: Karen Medina on 05-08-2025 Amphetamines Screen method >1000 ng/mL Ql (U) Negative < 200 ng/mL [facility] No Panel InformationOrdered By: Karen Medina on 05-08-2025 Urine Buprenorphine Qualitative Negative < 200 ng/mL [facility] Urine Oxycodone Screen Negative < 100 ng/mL [facility] Quantitative urine opiates m easurementOrdered By: Karen Medina on 05-08-2025 Opiates Ql (U) Negative < 300 ng/mL [facility] Screening urine fentanyl jimenez surementOrdered By: Karen Medina on 05-08-2025 fentaNYL Screen Ql (U) Negative [facility] Urine Drug Screen (VISTA)on 05-08-2025 AMPHETAMINES Negative Normal <1000 ng/mL [facility] Comment on above: Order Comment: UNK Performed By: #### L 3410.9992, L505.5000 ####[facility] [address] [facility] [address] BARBITIURATES Negative Normal < 200 ng/mL [facility] Comment on above: Order Comment: UNK Performed By: #### L 3410.9992, L505.5000 ####[facility] [address] [facility] [address] BENZODIAZIPINE Negative Normal < 200 ng/mL [facility] Comment on above: Order Comment: UNK Performed By: #### L 3410.9992, L505.5000 ####[facility] [address] [facility] [address] BUP Ur Drug Scr Negative Normal < 200 ng/mL [facility] Comment on above: Order Comment: UNK Performed By: #### L 3410.9992, L505.5000 ####[facility] [address] [facility] [address] COCAINE Negative Normal < 300 ng/mL [facility] Comment on above: Order Comment: UNK Performed By: #### L 3410.9992, L505.5000 ####[facility] [address] [place], [address] Fentanyl Negative Normal [facility] Comment on above: Order Comment: UNK Performed By: #### L 3410.9992, L505.5000 ####[facility] [address] [place], [address] METHADONE Negative Normal < 300 ng/mL [facility] Comment on above: Order Comment: UNK Performed By: #### L 3410.9992, L505.5000 ####[facility] [address] [place], [address] OPIATES Negative Normal < 300 ng/mL [facility] Comment on above: Order Comment: UNK Performed By: #### L 3410.9992, L505.5000 ####[facility] [address] [place], [address] OXYCODONE Negative Normal < 100 ng/mL [facility] Comment on above: Order Comment: UNK Performed By: #### L 3410.9992, L505.5000 ####[facility] [address] [place], [address] PCP Negative Normal < 25 ng/mL [facility] Comment on above: Order Comment: UNK Performed By: #### L 3410.9992, L505.5000 ####[facility] [address] [place], [address] THC Positive Normal < 50 ng/mL [facility] Comment on above: Order Comment: UNK Result Comment: If c onfirmation testing is needed, a separate order will berequired to send out testing to the reference laboratory. Performed By: #### L 3410.9992, L505.5000 ####[facility] [address] [place], [address] Urine benzodiazepine levelOr dered By: Karen Medina on 05-08-2025 Benzodiazepines Ql (U) Negative < 200 ng/mL [facility] Urine cocaine levelOrdered B y: Karen Medina on 05-08-2025 Cocaine Ql (U) Negative < 300 ng/mL [facility] Urine czqcl-8-uhpyxrjqysogod abinol (THC) measurementOrdered By: Karen Archershahla on 05-08-2025 Cannabinoids Screen Ql (U) Positive < 50 ng/mL [facility] Comment on above: If confirmation test ing is needed, a separate order will be required to send out testing to the reference laboratory. Urine phencyclidine (PCP) de tectionOrdered By: Karen Archershahla on 05-08-2025 Phencyclidine Ql (U) Negative < 25 ng/mL [facility] Inital Evaluation (1) - PTon 05-07-2025 Inital Evaluation (1) - PT Normal [facility] Office Visiton 03-21-2025 Follow-up visit [id number] Colin Zimmer 1960 M Date Provider Department Center 03/21/2025 [id number] LI [facility] ALEXANDER SHMGCV [address] Family History Problem Relation Age of Onset Diabetes Sister Diabetes Father Diabetes Brother Diabetes Brother Heart attack Father Comments: x7 Heart attack Brother Pacemaker Brother Comments: with ICD Family Status - Relation Status Age at Sister Alive Father Brother Alive Brother Alive Mother Level of Service:78615 ND OFFICE/OUTPATIENT ESTABLISHED MOD MDM 30 MIN Reason for Visit and Comments: Annual Exam [83] Normal [facility] Progress Noteon 03-21-2025 Progress Note [facility] Cardiology Note Chief Complaint: Chief Complaint Patient presents with Annual Exam History of Present Illness: Frank Zimmer is a 64 y.o. male presents in follow-up. He has been doing well and then he had sudden onset of right-sided weakness. He was found to have cervical disc and arthritis that was causing nerve compression and he ended up having neurosurgery. Since then he has been improving and is going to therapy and is walking with a walker and has had a marked improvement in his symptoms. 1. The patient has a history of heart failure and left bundle branch block. In October 2019 we placed a PLAY THERAPIST-D and since then his ejection fraction has improved and he has not been admitted to the hospital for heart failure since that time. He currently denies increased shortness of breath, PND, orthopnea edema. His last ejection fraction in 2021 was up to 45%. 2. The patient has a history of ventricular arrhythmias. He had appropriate therapies in 2021 and we did an ablation of the ventricular tachycardia. He is also having PVCs. We then placed him on amiodarone. Since then he has done well with a low frequency of PVCs and no ventricular tachycardia episodes. 3. Patient has coronary disease. His stenting was years ago. He is having no angina and has had no recent revascularization or catheterization. He is followed at [facility] cardiology. Past Medical History: Medical History[1] Past Surgical History Surgical History[2] Family History Family History[3] Social History Social History[4] Allergies: Allergies[5] Medications: Current Medications[6] Review of Systems: Review of Systems Constitutional: Positive for activity change and fatigue. Negative for unexpected weight change. Recovering from neck surgery 12.20.24 / long recovery Respiratory: Negative for apnea and shortness of breath. Cardiovascular: Negative for chest pain, palpitations and leg swelling. Musculoskeletal: Positive for arthralgias, gait problem and neck pain. Uses walker for ambulation and w/c for long distances Neurological: Positive for weakness. Negative for dizziness and light-headedness. Physical Examination: Vitals: Vitals: 03/21/25 1502 BP: 136/68 BP Location: Left arm Patient Position: Sitting BP Cuff Size: Adult Pulse: 60 SpO2: 95% Weight: 190 lb (86.2 kg) Height: 6' 5 (1.956 m) Body mass index is 22.53 kg/m?. Physical Exam Constitutional: Appearance: He is normal weight. He is not ill-appearing. Neck: Vascular: No JVD. Cardiovascular: Rate and Rhythm: Normal rate and regular rhythm. Heart sounds: No murmur heard. No gallop. Pulmonary: Effort: Pulmonary effort is normal. Breath sounds: Normal breath sounds. Musculoskeletal: Right lower leg: No edema. Left lower leg: No edema. Skin: General: Skin is warm and dry. Neurological: Mental Status: He is alert and oriented to person, place, and time. Motor: Weakness present. Gait: Gait abnormal. Psychiatric: Mood and Affect: Mood normal. Behavior: Behavior normal. Laboratory Tests: Lab Results Component Value Date WBC 8.9 10/30/2024 HGB 14.6 10/30/2024 HCT 44.7 10/30/2024 MCV 95.5 10/30/2024 PLT 225 10/30/2024 Lab Results Component Value Date GLUCOSE 123 (A) 10/30/2024 CALCIUM 9.3 10/30/2024 NA 139 10/30/2024 K 4.0 10/30/2024 CO2 29 10/30/2024 CL 107 10/30/2024 BUN 19 10/30/2024 CREATININE 0.76 02/23/2022 @LASTCMP@ Lab Results Component Value Date CHLPL 149 02/16/2022 CHLPL 134 05/23/2020 CHOL 118 11/17/2019 Lab Results Component Value Date TRIG 116 02/16/2022 TRIG 103 05/23/2020 TRIG 80 11/17/2019 Lab Results Component Value Date HDL 49 02/16/2022 HDL 42 05/23/2020 HDL 36 (L) 11/17/2019 Lab Results Component Value Date LDLCALC 77 02/16/2022 LDLCALC 71 05/23/20202021 SUMMARY: 1. Left ventricle: Systolic function is mildly decreased by visual assessment. The estimated ejection fraction is 45%. 2. Right ventricle: Pacer wire noted in the right ventricle. Systolic function is normal. Right ventricular systolic pressure is within the normal range. 3. Aorta: The aorta is normal. 4. No significant valve disease. 5. Pericardium, extracardiac: There is no pericardial effusion Interpretation Summary Scheduled Clinic PLAY THERAPIST-D evaluation. MAP is SP. Left sided device pocket is well healed. No new cardiac complaints. Reprogramming performed for threshold testing and to ensure adequate safety margin. Battery 22 % and estimated longevity = 1.1 years, ct = 9.1 seconds. RA Lead = 5 mV, 430 Ohms, 1.0 V @ 0.8 ms. AP = 79 %. RV Lead = 12 mV, 450 Ohms, 1.0 V @ 0.5 ms. LV Lead = 830 Ohms, 2.0 V @ 1.0 ms. BiVP = 90 %. HV = 71 Ohms. DDDR 60 PLAY THERAPIST-D. Interrogation of device reveals no events. Frequent PVCs noted during testing. PVC count 6.7 %. Intermittent CHB noted during check today. Decreased LV output to (more content not included)... Normal [facility] CNOVon 03-04-2025 CNOV Office Visit (NEAGCL M) -- FRANK ZIMMER ([id number]) 1960 Date Time Provider Department 03/04/25 2:15 PM LACEY MCDERMOTT NEAGCLM During your visit today, we recorded the following information about you: Pulse Respiration Blood pressure 57/minute 16/minute 128/72 Lacey Mcdermott MD 03/04/2025 2:36 PM Signed NEUROSURGERY POST-OP NOTE Lacey Mcdermott MD [facility] Date of visit: March 04, 2025 Patient Name: Mr.Barry Elle Zimmer Date of : 1960 Current Age: [age] year old Sex: male MRN/E# [id number] Last Office Visit: 01/31/2025 SURGERY: C2-T1 PCDF 12/20/2024 Pre-Surgical Symptoms: progressive myelopathy, inability to walk Past Medical/Surgical History: Mr. Zimmer is a 64 year old male with a past medical history of CAD and V-tach HPI: Patient is having their 10 week post operative visit. He was last seen in the office on 01/21/2025 for about a 4 week post operative visit when he was doing very well, with significant improvement in his preoperative myelopathic symptoms. The sensation in his legs was improving, as was his strength in his upper extremities. He spent some time in [place] [facility] but was now home. He was wearing his cervical collar as directed. His incision was well-healed and his x-rays looked good. His strength was improving. I explained that the recovery from the out of compression that he had will take some time, but he was making excellent progress. He was advised that he should continue wearing his collar until her next visit. He was to follow up in 6 weeks time with xrays for re-evaluation, prompting his visit today. Patient feels that surgery went well and he has continued with improvement in his arm strength as well as the sensation in his legs. He is in a wheelchair for the visit but he has been walking with a walker and is happy about that. He is very pleased with his progress this far. Incision: Healed Current Outpatient Medications Medication Sig Dispense Refill traMADol (ULTRAM) 50 mg tablet Take 1 oral Twice a day for 28 Days tamsulosin (FLOMAX) 0.4 mg Take 1 capsule by mouth once daily. nitroglycerin sublingual (NITROQUICK) 0.4 mg SL tablet up to max of 3 total doses. If no relief after 1 dose, call 911. fluticasone propion-salmeterol 232-14 mcg/actuation INHALE 1 PUFF BY MOUTH EVERY 12 HOURS rinse mouth after every use DULoxetine (CYMBALTA) 60 mg capsule Take 1 capsule by mouth once daily. aspirin, enteric coated (ASPIRIN, ENTERIC COATED) 81 mg EC tablet Take 1 tablet by mouth once daily. Patient should start on December 25, 2024. carvedilol (COREG) 12.5 mg tablet Take 1 tablet by mouth two times a day with meals. 180 tablet amiodarone (PACERONE) 200 mg tablet Take 1 tablet by mouth once daily. 90 tablet 0 lisinopril (ZESTRIL) 5 mg tablet Take 1 tablet by mouth once daily. 90 tablet 0 gabapentin (NEURONTIN) 300 mg capsule Take 1 capsule by mouth every 8 hours for 30 days. 0 JARDIANCE 25 mg tablet Take 25 mg by mouth daily with breakfast. furosemide (LASIX) 20 mg tablet Take 20 mg by mouth once daily. rosuvastatin (CRESTOR) 40 mg tablet TAKE 1 TABLET BY MOUTH EVERY DAY nightly No current facility-administered medications for this visit. Objective Review of Systems Constitutional: Negative for chills, fatigue and fever. HENT: Negative for ear pain, hearing loss and tinnitus. Eyes: Negative for photophobia, pain and visual disturbance. Respiratory: Negative for shortness of breath. Cardiovascular: Negative for chest pain. Gastrointestinal: Negative for constipation, diarrhea, nausea and vomiting. Endocrine: Negative for polydipsia, polyphagia and polyuria. Genitourinary: Negative for difficulty urinating, frequency and urgency. Musculoskeletal: Positive for neck stiffness. Negative for back pain, gait problem and neck pain. Skin: Negative for color change. Neurological: Positive for weakness. Negative for dizziness, light-headedness and numbness. Psychiatric/Behavioral: Negative for agitation and confusion. The patient is not nervous/anxious. PHYSICAL EXAM: Mental State : Alert, memory function unremarkable. Attention span and concentration normal for patient's age. Speech normal, no receptive or expressive speech deficit. Recent and remote memory normal. Orientation : Oriented to person, place and time. Cranial Nerves : Grossly intact. Sensory: Normal Sensation in upper and lower extremities and trunk to touch and noxious stimuli. Motor: Normal muscle tone and bulk. No tremor or uncontrollable movements. No spasticity or tremor. Gait and Station: in wheelchair; can walk short distances with a walker STRENGTH: Upper Extremity Strength Exam Right Left Elbow Flexion 4+/5 4+/5 Elbow Extension 4+/5 4/5 Finger Flexion 4/5 4/5 Finger Extension 4/5 4/5 Finger Abduction 4/5 4-/5 Lower Extremity Strength Exam (more content not included)... Normal [facility] XR CERVICAL 4V AP/LAT/FLX/EX Ton 03-04-2025 XR CERVICAL 4V AP/LAT/FLX/EXT * * *Final Report* * * DATE OF EXAM: Mar 04 2025 2:01PM A1X 5310 - XR CERVICAL 4V AP/LAT/FLX/EXT / PROCEDURE REASON: S/P cervical spinal fusion * * * * Physician Interpretation * * * * EXAMINATION / TECHNIQUE: XR CERVICAL 4V AP/LAT/FLX/EXT PATIENT/TECHNOLOGIST PROVIDED HISTORY: s/p fusion 11/2024, follow up, no complaints CLINICAL INFORMATION ( PROVIDED BY ORDERING CLINICIAN) : S/P cervical spinal fusion COMPARISON: 01/21/2025 RESULT: Counting reference: Craniocervical junction. Anatomic Variants: None. C2-T1 spinal fusion with pedicle/lateral mass screws at each level of the exception of C7. Hardware appears intact. Posterior decompression. No instability with flexion and extension. No significant malalignment. Multilevel degenerative disc disease in the lower cervical spine with disc height loss, degenerative endplate changes, and osteophytes. IMPRESSION: Postoperative findings, as described. Cell Pourer: CHINO Transcribe Date/Time: Mar 07 2025 10:47P Dictated by : AMANDA TOMPKINS MD This examination was interpreted and the report reviewed and electronically signed by: AMANDA TOMPKINS MD on Mar 07 2025 10:49PM EST [id number] Normal [facility] 36on 02-25-2025 36 MERVAT-03/16 MAP BMP Normal [facility] Absolute lymphocyte countOrd ered By: Reagan Soto on 02-22-2025 Lymphocytes Auto (Unsp spec) [#/Vol] 1.92 10*3/uL 0.83-4.51 [facility] Absolute neutrophil countOrd ered By: Reagan Soto on 02-22-2025 Neutrophils (Bld) [#/Vol] 6.2 10*3/uL 2.0-7.7 [facility] Anion gap in Serum or Plasma Ordered By: Reagan Soto on 02-22-2025 Anion gap [Moles/Vol] 13 mmol/L 5- [facility] Automated lymphocyte count a s percentage of total leukocytesOrdered By: Reagan Soto on 02-22-2025 Lymphocytes/100 WBC Auto (Unsp spec) 20.9 % 19- [facility] BUN/creatinine ratioOrdered By: Reagan Stoo on 02-22-2025 Urea nitrogen/Creatinine [Mass ratio] 42.6 mg/mg High 10- [facility] Basophil percentageOrdered B y: Reagan Soto on 02-22-2025 Basophils/100 WBC (Bld) 0.7 % 0-1 [facility] Bilirubin, totalOrdered By: Reagan Soto on 02-22-2025 Bilirubin [Mass/Vol] 0.21 mg/dL 0.00-1.30 [facility] CBC W/Diff, Automatedon Absolute Lymph 1.92 X10 3/uL Normal 0.83-4.51 [facility] Comment on above: Order Comment: Order Date: 02/22/25Order Info: 0184-1 - CBCD Performed By: #### L 100.0100, L501.5200, L500.4100, L500.4050, L501.9985 ####[facility] [address] [place], [address] Absolute Neut 6.2 X10 3/uL Normal 2.0-7.7 [facility] Comment on above: Order Comment: Order Date: 02/22/25Order Info: 0184-1 - CBCD Performed By: #### L 100.0100, L501.5200, L500.4100, L500.4050, L501.9985 ####[facility] [address] [place], [address] Basophils/100 WBC (Bld) 0.7 % Normal 0-1 [facility] Comment on above: Order Comment: Order Date: 02/22/25Order Info: 0184-1 - CBCD Performed By: #### L 100.0100, L501.5200, L500.4100, L500.4050, L501.9985 ####[facility] [address] [place], [address] Eosinophils/100 WBC (Bld) 3.0 % Normal 0-5 [facility] Comment on above: Order Comment: Order Date: 02/22/25Order Info: 0184-1 - CBCD Performed By: #### L 100.0100, L501.5200, L500.4100, L500.4050, L501.9985 ####[facility] [address] [place], [address] Erythrocyte distribution width (RBC) [Ratio] 14.4 % Normal 11.6-14.6 [facility] Comment on above: Order Comment: Order Date: 02/22/25Order Info: 0184-1 - CBCD Performed By: #### L 100.0100, L501.5200, L500.4100, L500.4050, L501.9985 ####[facility] [address] [place], [address] Hematocrit (Bld) [Volume fraction] 41.6 % Normal 40-54 [facility] Comment on above: Order Comment: Order Date: 02/22/25Order Info: 0184-1 - CBCD Performed By: #### L 100.0100, L501.5200, L500.4100, L500.4050, L501.9985 ####[facility] [address] [place], [address] Hemoglobin (Bld) [Mass/Vol] 13.5 g/dL Normal 13.0-16.5 [facility] Comment on above: Order Comment: Order Date: 02/22/25Order Info: 0184-1 - CBCD Performed By: #### L 100.0100, L501.5200, L500.4100, L500.4050, L501.9985 ####[facility] [address] [place], [address] IG% 0.200 Normal 0.0-0.9 [facility] Comment on above: Order Comment: Order Date: 02/22/25Order Info: 0184-1 - CBCD Result Comment: IG% - Immature Granulocytes (promyelocytes, myelocytes andmetamyelocytes) > 1% indicates that a LEFT SHIFT is Present. Performed By: #### L 100.0100, L501.5200, L500.4100, L500.4050, L501.9985 ####[facility] [address] [place], [address] Lymphocytes/100 WBC (Bld) 20.9 % Normal 19-41 [facility] Comment on above: Order Comment: Order Date: 02/22/25Order Info: 0184-1 - CBCD Performed By: #### L 100.0100, L501.5200, L500.4100, L500.4050, L501.9985 ####[facility] [address] [place], [address] MCH (RBC) [Entitic mass] 31.2 pg Normal 27.0-32.0 [facility] Comment on above: Order Comment: Order Date: 02/22/25Order Info: 0184-1 - CBCD Performed By: #### L 100.0100, L501.5200, L500.4100, L500.4050, L501.9985 ####[facility] [address] [place], [address] MCHC (RBC) [Mass/Vol] 32.5 g/dL Normal 32-36 [facility] Comment on above: Order Comment: Order Date: 02/22/25Order Info: 0184-1 - CBCD Performed By: #### L 100.0100, L501.5200, L500.4100, L500.4050, L501.9985 ####[facility] [address] [place], [address] MCV (RBC) [Entitic vol] 96.1 fL High 80-94 [facility] Comment on above: Order Comment: Order Date: 02/22/25Order Info: 0184-1 - CBCD Performed By: #### L 100.0100, L501.5200, L500.4100, L500.4050, L501.9985 ####[facility] [address] [facility] [place], [address] Monocytes/100 WBC (Bld) 8.3 % Normal 0-10 [facility] Comment on above: Order Comment: Order Date: 02/22/25Order Info: 0184-1 - CBCD Performed By: #### L 100.0100, L501.5200, L500.4100, L500.4050, L501.9985 ####[facility] [address] [place], [address] Neutrophils/100 WBC (Bld) 66.9 % Normal 47-70 [facility] Comment on above: Order Comment: Order Date: 02/22/25Order Info: 0184-1 - CBCD Performed By: #### L 100.0100, L501.5200, L500.4100, L500.4050, L501.9985 ####[facility] [address] [place], [address] Nucleated RBC (Bld) [#/Vol] 0 10*3/uL Normal 0-5 [facility] Comment on above: Order Comment: Order Date: 02/22/25Order Info: 0184-1 - CBCD Performed By: #### L 100.0100, L501.5200, L500.4100, L500.4050, L501.9985 ####[facility] [address] [place], [address] Platelet mean volume (Bld) [Entitic vol] 11.5 fL Normal 6.2-12.0 [facility] Comment on above: Order Comment: Order Date: 02/22/25Order Info: 0184-1 - CBCD Performed By: #### L 100.0100, L501.5200, L500.4100, L500.4050, L501.9985 ####[facility] [address] [place], [address] Platelets (Bld) [#/Vol] 209 10*3/uL Normal 150-450 [facility] Comment on above: Order Comment: Order Date: 02/22/25Order Info: 0184-1 - CBCD Performed By: #### L 100.0100, L501.5200, L500.4100, L500.4050, L501.9985 ####[facility] [address] [place], [address] RBC (Bld) [#/Vol] 4.33 10*6/uL Low 4.6-6.[address] [facility] Comment on above: Order Comment: Order Date: 02/22/25Order Info: 0184-1 - CBCD Performed By: #### L 100.0100, L501.5200, L500.4100, L500.4050, L501.9985 ####[facility] [address] [place], [address] RDW SD 50.9 fl High 35.1-43.9 [facility] Comment on above: Order Comment: Order Date: 02/22/25Order Info: 0184-1 - CBCD Performed By: #### L 100.0100, L501.5200, L500.4100, L500.4050, L501.9985 ####[facility] [address] [place], [place], [address] WBC (Bld) [#/Vol] 9.2 10*3/uL Normal 4.4-11.0 [facility] Comment on above: Order Comment: Order Date: 02/22/25Order Info: 0184-1 - CBCD Performed By: #### L 100.0100, L501.5200, L500.4100, L500.4050, L501.9985 ####[facility] [address] [place], [place], [id number] Calculated very low density lipoprotein (VLDL) cholesterol measurementOrdered By: Reagan Soto on 02-22-2025 Calculated very low density lipoprotein (VLDL) cholesterol measurement 19 mg/dL 5-40 [facility] Carbon dioxide, total [Moles /volume] in Central venous bloodOrdered By: Reagan Soto on 02-22-2025 CO2 [Moles/Vol] 23.9 mmol/L 21.0-32.0 [facility] Chloride assayOrdered By: Jackie Soto on 02-22-2025 Chloride [Moles/Vol] 103 mmol/L 98-108 [facility] Comprehensive Metabolic Prof ilon 02-22-2025 Albumin [Mass/Vol] 4.0 g/dL Normal 3.4-4.8 [facility] Comment on above: Order Comment: Order Date: 02/22/25Order Info: [id number] - CMPOrder Info: [id number] - LIPIDOrder Info: [id number] - MG Performed By: #### L 100.0100, L501.5200, L500.4100, L500.4050, L501.9985 ####[facility] [address] [place], [place], [address] Albumin/Globulin [Mass ratio] 1.3 {ratio} Normal 0.9-2.4 [facility] Comment on above: Order Comment: Order Date: 02/22/25Order Info: [id number] - CMPOrder Info: [id number] - LIPIDOrder Info: [id number] - MG Performed By: #### L 100.0100, L501.5200, L500.4100, L500.4050, L501.9985 ####[facility] [address] [place], [place], [id number] ALK PHOS 77 U/L Normal 40-129 [facility] Comment on above: Order Comment: Order Date: 02/22/25Order Info: [id number] - CMPOrder Info: [id number] - LIPIDOrder Info: - MG Performed By: #### L 100.0100, L501.5200, L500.4100, L500.4050, L501.9985 ####[facility] [address] [place], [place], [id number] ALT [Catalytic activity/Vol] 13 U/L Normal <=46 [facility] Comment on above: Order Comment: Order Date: 02/22/25Order Info: [id number] - CMPOrder Info: [id number] - LIPIDOrder Info: [id number] - MG Performed By: #### L 100.0100, L501.5200, L500.4100, L500.4050, L501.9985 ####[facility] [address] [place], [place], [id number] AST [Catalytic activity/Vol] 16 U/L Normal <=37 [facility] Comment on above: Order Comment: Order Date: 02/22/25Order Info: [id number] - CMPOrder Info: [id number] - LIPIDOrder Info: [id number] - MG Performed By: #### L 100.0100, L501.5200, L500.4100, L500.4050, L501.9985 ####[facility] [address] [place], [address] Bilirubin [Mass/Vol] 0.21 mg/dL Normal 0.00-1.30 [facility] Comment on above: Order Comment: Order Date: 02/22/25Order Info: [id number] - CMPOrder Info: [id number] - LIPIDOrder Info: [id number] - MG Performed By: #### L 100.0100, L501.5200, L500.4100, L500.4050, L501.9985 ####[facility] [address] [place], [address] BUN/CRE 42.6 RATIO High 10-20 [facility] Comment on above: Order Comment: Order Date: 02/22/25Order Info: [id number] - CMPOrder Info: [id number] - LIPIDOrder Info: [id number] - MG Performed By: #### L 100.0100, L501.5200, L500.4100, L500.4050, L501.9985 ####[facility] [address] [place], [address] Calcium [Mass/Vol] 9.3 mg/dL Normal 7.6-11.0 [facility] Comment on above: Order Comment: Order Date: 02/22/25Order Info: [id number] - CMPOrder Info: [id number] - LIPIDOrder Info: [id number] - MG Performed By: #### L 100.0100, L501.5200, L500.4100, L500.4050, L501.9985 ####[facility] [address] [place], [address] Chloride [Moles/Vol] 103 mmol/L Normal 98-108 [facility] Comment on above: Order Comment: Order Date: 02/22/25Order Info: [id number] - CMPOrder Info: [id number] - LIPIDOrder Info: [id number] - MG Performed By: #### L 100.0100, L501.5200, L500.4100, L500.4050, L501.9985 ####[facility] [address] [place], [address] CO2 [Moles/Vol] 23.9 mmol/L Normal 21.0-32.0 [facility] Comment on above: Order Comment: Order Date: 02/22/25Order Info: [id number] - CMPOrder Info: [id number] - LIPIDOrder Info: [id number] - MG Performed By: #### L 100.0100, L501.5200, L500.4100, L500.4050, L501.9985 ####[facility] [address] [place], [place], [id number] Creatinine [Mass/Vol] 0.59 mg/dL Low 0.70-1.20 [facility] Comment on above: Order Comment: Order Date: 02/22/25Order Info: [id number] - CMPOrder Info: [id number] - LIPIDOrder Info: [id number] - MG Performed By: #### L 100.0100, L501.5200, L500.4100, L500.4050, L501.9985 ####[facility] [address] [place], [place], [phone] [phone] 13 Normal 5-15 [facility] Comment on above: Order Comment: Order Date: 02/22/25Order Info: [id number] - CMPOrder Info: [id number] - LIPIDOrder Info: [id number] - MG Performed By: #### L 100.0100, L501.5200, L500.4100, L500.4050, L501.9985 ####[facility] [address] [place], [place], [address] GFR/1.73 sq M.predicted among non-blacks MDRD (S/P/Bld) [Vol rate/Area] 108 mL/min/{1.73_m2} Normal >60 [facility] Comment on above: Order Comment: Order Date: 02/22/25Order Info: [id number] - CMPOrder Info: [id number] - LIPIDOrder Info: [id number] - MG Result Comment: mL/m in/1.73m2 CKD-EPI Creatinine Equation (2020) Performed By: #### L 100.0100, L501.5200, L500.4100, L500.4050, L501.9985 ####[facility] [address] [place], [address] Globulin (S) [Mass/Vol] 3.0 g/dL Normal 2.2-4.2 [facility] Comment on above: Order Comment: Order Date: 02/22/25Order Info: [id number] - CMPOrder Info: [id number] - LIPIDOrder Info: [id number] - MG Performed By: #### L 100.0100, L501.5200, L500.4100, L500.4050, L501.9985 ####[facility] [address] [place], [address] Glucose [Mass/Vol] 87 mg/dL Normal 70-99 [facility] Comment on above: Order Comment: Order Date: 02/22/25Order Info: [id number] - CMPOrder Info: [id number] - LIPIDOrder Info: [id number] - MG Performed By: #### L 100.0100, L501.5200, L500.4100, L500.4050, L501.9985 ####[facility] [address] [place], [address] Potassium [Moles/Vol] 4.0 mmol/L Normal 3.3-5.1 [facility] Comment on above: Order Comment: Order Date: 02/22/25Order Info: [id number] - CMPOrder Info: [id number] - LIPIDOrder Info: [id number] - MG Performed By: #### L 100.0100, L501.5200, L500.4100, L500.4050, L501.9985 ####[facility] [address] [place], [address] Sodium [Moles/Vol] 139 mmol/L Normal 133-145 [facility] Comment on above: Order Comment: Order Date: 02/22/25Order Info: [id number] - CMPOrder Info: [id number] - LIPIDOrder Info: [id number] - MG Performed By: #### L 100.0100, L501.5200, L500.4100, L500.4050, L501.9985 ####[facility] [address] [place], [address] T PROT 7.0 g/dL Normal 5.9-8.4 [facility] Comment on above: Order Comment: Order Date: 02/22/25Order Info: [id number] - CMPOrder Info: [id number] - LIPIDOrder Info: [id number] - MG Performed By: #### L 100.0100, L501.5200, L500.4100, L500.4050, L501.9985 ####[facility] [address] [place], [address] Urea nitrogen [Mass/Vol] 25 mg/dL High 4-19 [facility] Comment on above: Order Comment: Order Date: 02/22/25Order Info: [id number] - CMPOrder Info: [id number] - LIPIDOrder Info: [id number] - MG Performed By: #### L 100.0100, L501.5200, L500.4100, L500.4050, L501.9985 ####[facility] [address] [place], [address] Eosinophil percentageOrdered By: Reagan Soto on 02-22-2025 Eosinophils/100 WBC (Bld) 3.0 % 0-5 [facility] Erythrocyte distribution wid th ratioOrdered By: Reagan Soto on 02-22-2025 Erythrocyte distribution width (RBC) [Ratio] 14.4 % 11.6-14.6 [facility] Erythrocyte distribution wid th standard deviationOrdered By: Reagan Soto on 02-22-2025 Erythrocyte distribution width (RBC) [Ratio] 50.9 fl High 35.1-43.9 [facility] Glomerular filtration rate ( GFR) estimation/1.73 sq m using serum, plasma, or whole bOrdered By: Reagan Soto on 02-22-2025 GFR/1.73 sq M.predicted among non-blacks MDRD (S/P/Bld) [Vol rate/Area] 108 mL/min/{1.73_m2} >60 [facility] Comment on above: mL/min/1.73m2 CKD-EP I Creatinine Equation (2020) Hematocrit Auto (Bld) [Volum e fraction]Ordered By: Reagan Soto on 02-22-2025 Hematocrit (Bld) [Volume fraction] 41.6 % 40-54 [facility] Hemoglobin A1con 02-22-2025 HbA1c (Bld) [Mass fraction] 6.3 % High <=5.6 [facility] Comment on above: Order Comment: Order Date: 02/22/25Order Info: [id number] - A1C Result Comment: Norm al < 5.7 % Prediabetic 5.7 - 6.4 % Diabetic >or= 6.5 % Please note range changes. Performed By: #### L 100.0100, L501.5200, L500.4100, L500.4050, L501.9985 ####[facility] [address] [place], [address] Hemoglobin A1c percentageOrd ered By: Reagan Soto on 02-22-2025 HbA1c (Bld) [Mass fraction] 6.3 % High <5.7 [facility] Comment on above: Normal < 5.7 % Predi abetic 5.7 - 6.4 % Diabetic >or= 6.5 % Please note range changes. Hemoglobin measurementOrdere d By: Reagan Soto on 02-22-2025 Hemoglobin (Bld) [Mass/Vol] 13.5 g/dL 13.0-16.5 [facility] Immature granulocytes/100 WB C Auto (Bld)Ordered By: Reagan Soto on 02-22-2025 Immature granulocytes/100 WBC (Bld) 0.200 % 0.0-0.9 [facility] Comment on above: IG% - Immature Granu locytes (promyelocytes, myelocytes and metamyelocytes) > 1% indicates that a LEFT SHIFT is Present. LDL calc ser/plasOrdered By: Reagan Soto on 02-22-2025 Cholesterol in LDL [Mass/Vol] 71 mg/dL [facility] Comment on above: Nvbrqwxbzv=640-092 m g/dL & Higher Arvr=684 mg/dL or greater Laboratory - Chemistry and C hemistry - challengeOrdered By: Reagan Soto on 02-22-2025 AST [Catalytic activity/Vol] 16 U/L <38 [facility] Lipid Profileon 02-22-2025 CHOL:HDL 3.13 Normal [facility] Comment on above: Order Comment: Order Date: 02/22/25Order Info: [id number] - CMPOrder Info: [id number] - LIPIDOrder Info: [id number] - MG Performed By: #### L 100.0100, L501.5200, L500.4100, L500.4050, L501.9985 ####[facility] [address] [place], [address] Cholesterol [Mass/Vol] 132 mg/dL Normal <=200 [facility] Comment on above: Order Comment: Order Date: 02/22/25Order Info: [id number] - CMPOrder Info: [id number] - LIPIDOrder Info: [id number] - MG Result Comment: Chol esterol level, Desirable <200 mg/dLBorderline high cholesterol 200-239 mg/dLHigh cholesterol >=240 mg/dLRecommendations of the NCEP Adult Treatment Panel for thefollowing risk-cutoff thresholds for the [place] Americanpulation. Performed By: #### L 100.0100, L501.5200, L500.4100, L500.4050, L501.9985 ####[facility] [address] [place], [address] Cholesterol in HDL [Mass/Vol] 42 mg/dL Normal [facility] Comment on above: Order Comment: Order Date: 02/22/25Order Info: [id number] - CMPOrder Info: [id number] - LIPIDOrder Info: [id number] - MG Result Comment: Lizbeth onal Cholesterol Education Program (NCEP) guidelines:<40 mg/dL: Low HDL-cholesterol (major risk factor for CHD)>= 60 mg/dL: High HDL-cholesterol (negative risk factor forCHD)HDL-cholesterol is affected by a number of factors, e.g.smoking, exercise, hormones, sex and age. Performed By: #### L 100.0100, L501.5200, L500.4100, L500.4050, L501.9985 ####[facility] [address] [place], [address] Cholesterol in LDL [Mass/Vol] 71 mg/dL Normal [facility] Comment on above: Order Comment: Order Date: 02/22/25Order Info: [id number] - CMPOrder Info: [id number] - LIPIDOrder Info: [id number] - MG Result Comment: Bord xqtfcw=919-515 mg/dL Higher Ahrs=247 mg/dL or greater Performed By: #### L 100.0100, L501.5200, L500.4100, L500.4050, L501.9985 ####[facility] [address] [place], [address] Cholesterol in VLDL [Mass/Vol] 19 mg/dL Normal 5-40 [facility] Comment on above: Order Comment: Order Date: 02/22/25Order Info: [id number]- - CMPOrder Info: [id number] - LIPIDOrder Info: [id number] - MG Performed By: #### L 100.0100, L501.5200, L500.4100, L500.4050, L501.9985 ####[facility] [address] [place], [address] Triglyceride [Mass/Vol] 96 mg/dL Normal [facility] Comment on above: Order Comment: Order Date: 02/22/25Order Info: [id number] - CMPOrder Info: [id number] - LIPIDOrder Info: [id number] - MG Result Comment: The drugs N-Acetylcysteine and Metamizole may falselydepress this assay.Normal range: <150 mg/dLBorderline High: 150-199 mg/dLHigh: 200-499 mg/dLVery High: >500 mg/dL Performed By: #### L 100.0100, L501.5200, L500.4100, L500.4050, L501.9985 ####[facility] [address] [place], [place], [address] MCV (mean corpuscular volume ) determinationOrdered By: Reagan Soto on 02-22-2025 MCV (RBC) [Entitic vol] 96.1 fL High 80-94 [facility] Magnesiumon 02-22-2025 Magnesium [Mass/Vol] 2.1 mg/dL Normal 1.5-2.2 [facility] Comment on above: Order Comment: Order Date: 02/22/25Order Info: [id number] - CMPOrder Info: [id number] - LIPIDOrder Info: [id number] - MG Performed By: #### L 100.0100, L501.5200, L500.4100, L500.4050, L501.9985 ####[facility] [address] [place], [place], [address] Magnesium measurement (mass/ volume)Ordered By: Reagan Soto on 02-22-2025 Magnesium (Unsp spec) [Mass/Vol] 2.1 mg/dL 1.5-2.2 [facility] Mean corpuscular hemoglobin (MCH) determinationOrdered By: Reagan Soto on 02-22-2025 MCH (RBC) [Entitic mass] 31.2 pg 27.0-32.0 [facility] Mean corpuscular hemoglobin concentration (MCHC) determinationOrdered By: Reagan Soto on 02-22-2025 MCHC (RBC) [Mass/Vol] 32.5 g/dL 32-36 [facility] Mean platelet volume determi nationOrdered By: Reagan Soto on 02-22-2025 Platelet mean volume (Bld) [Entitic vol] 11.5 fL 6.2-12.0 [facility] Monocyte percentageOrdered B y: Reagan Soto on 02-22-2025 Monocytes/100 WBC (Bld) 8.3 % 0-10 [facility] Neutrophil percentageOrdered By: Reagan Soto on 02-22-2025 Neutrophils/100 WBC (Bld) 66.9 % 47-70 [facility] Nucleated red blood cell per centageOrdered By: Reagan Soto on 02-22-2025 Nucleated RBC/100 WBC (Bld) [Ratio] 0 % 0-5 [facility] Platelet countOrdered By: Jackie Soto on 02-22-2025 Platelets (Bld) [#/Vol] 209 10*3/uL 150-450 [facility] Potassium measurement (mass/ volume)Ordered By: Reagan Soto on 02-22-2025 Potassium (Unsp spec) [Mass/Vol] 4.0 mmol/L 3.3-5.1 [facility] RBC Auto (Bld) [#/Vol]Ordere d By: Reagan Soto on 02-22-2025 RBC (Bld) [#/Vol] 4.33 10*6/uL Low 4.6-6.[address] [facility] Screening total cholesterol/ high density lipoprotein (HDL) cholesterol ratioOrdered By: Reagan Soto on 02-22-2025 Cholesterol.total/Choles terol in HDL [Mass ratio] 3.13 {ratio} [facility] Serum creatinine measurement (mass/volume)Ordered By: Reagan Soto on 02-22-2025 Creatinine [Mass/Vol] 0.59 mg/dL Low 0.70-1.20 [facility] Serum globulin measurementOr dered By: Reagan Soto on 02-22-2025 Globulin (S) [Mass/Vol] 3.0 g/dL 2.2-4.2 [facility] Serum glucose measurement (m ass/volume)Ordered By: Reagan Soto on 02-22-2025 Glucose [Mass/Vol] 87 mg/dL 70-99 [facility] Serum or plasma alanine ling otransferase (ALT) measurementOrdered By: Reagan Soto on 02-22-2025 ALT [Catalytic activity/Vol] 13 U/L <47 [facility] Serum or plasma albumin amaya urement (mass/volume)Ordered By: Reagan Soto on 02-22-2025 Albumin [Mass/Vol] 4.0 g/dL 3.4-4.8 [facility] Serum or plasma albumin/glob ulin mass ratioOrdered By: Reagan Soto on 02-22-2025 Albumin/Globulin [Mass ratio] 1.3 {ratio} 0.9-2.4 [facility] Serum or plasma alkaline nnamdi sphatase measurementOrdered By: Reagan Soto on 02-22-2025 ALP [Catalytic activity/Vol] 77 U/L 40-129 [facility] Serum or plasma calcium amaya urement (mass/volume)Ordered By: Reagan Soto on 02-22-2025 Calcium [Mass/Vol] 9.3 mg/dL 7.6-11.0 [facility] Serum or plasma cholesterol in HDL measurement (mass/volume)Ordered By: Reagan Soto on 02-22-2025 Cholesterol in HDL [Mass/Vol] 42 mg/dL >40 [facility] Comment on above: National Cholesterol Education Program (NCEP) guidelines:<40 mg/dL: Low HDL-cholesterol (major risk factor for CHD)>= 60 mg/dL: High HDL-cholesterol (negative risk factor for CHD)HDL-cholesterol is affected by a number of factors, e.g. smoking, exercise, hormones, sex and age. Serum or plasma cholesterol measurement (mass/volume)Ordered By: Reagan Soto on 02-22-2025 Cholesterol [Mass/Vol] 132 mg/dL <201 [facility] Comment on above: Cholesterol level, D esirable <200 mg/dLBorderline high cholesterol 200-239 mg/dLHigh cholesterol >=240 mg/dLRecommendations of the NCEP Adult Treatment Panel for the following risk-cutoff thresholds for the [place] population. Serum or plasma urea nitroge n measurement (mass/volume)Ordered By: Reagan Soto on 02-22-2025 Urea nitrogen [Mass/Vol] 25 mg/dL High 4-19 [facility] Sodium levelOrdered By: Reagan Soto on 02-22-2025 Sodium [Moles/Vol] 139 mmol/L 133-145 [facility] Total proteinOrdered By: Jonathan Soto on 02-22-2025 Protein [Mass/Vol] 7.0 g/dL 5.9-8.4 [facility] Triglycerides measurementOrd ered By: Reagan Soto on 02-22-2025 Triglyceride [Mass/Vol] 96 mg/dL <199 [facility] Comment on above: The drugs N-Acetylcy steine and Metamizole may falsely depress this assay. Normal range: <150 mg/dLBorderline High: 150-199 mg/dLHigh: 200-499 mg/dLVery High: >500 mg/dL White blood cell (WBC) count Ordered By: Reagan Soto on 02-22-2025 WBC (Bld) [#/Vol] 9.2 10*3/uL 4.4-11.0 [facility] 12 Lead EKG performed by [facility] on 02-01-2025 12 Lead EKG performed by [facility] Cardiology Visit Reporton Cardiology Visit Report Normal [facility] CNPNon 01-31-2025 CNPN Telephone ([facility]) -- MESHAFRANK L ([id number]) 1960 M Date Time Provider Department 01/31/25 LACEY MCDERMOTT [facility] During your visit today, we recorded the following information about you: Angelique Brothers, RN 01/31/2025 3:16 PM Signed Kimmy with [facility] called with concerns about Frank's pain and the fact that he had not been taking pain medications. She was concerned that it was interfering with physical therapy. Called and spoke with Frank, who is s/p C2-T1 PCDF on 12/20/2024. He states that as far as his neck goes he rarely has pain in that region and if he does, the Gabapentin that he takes helps. He notes all of his pain to be located in the low back at this time and it is the most bothersome there. I advised patient that because this pain is not related to the surgery that was performed, we are unable to provide him with a prescription for that. Recommended he reach out to his PCP in the meantime to discuss options. Recommended patient use tylenol and heat/ice for management of the pain. He was thankful for the call. Angelique Brothers RN Allergies As of Date: 01/31/2025 Noted Allergy Reaction BEES 09/27/2005 Comments: ANAPHALACTIC REACTION MORPHINE 08/22/2022 11 - Vomiting Date Reviewed: 01/21/2025 Reviewed by: Sarita Nicholson MA - Fully Assessed Prescriptions as of 01/31/2025 - aspirin, enteric coated (ASPIRIN, ENTERIC COATED) 81 mg EC tablet Take 1 tablet by mouth once daily. Patient should start on December 25, 2024. - carvedilol (COREG) 12.5 mg tablet Take 1 tablet by mouth two times a day with meals. - amiodarone (PACERONE) 200 mg tablet Take 1 tablet by mouth once daily. - lisinopril (ZESTRIL) 5 mg tablet Take 1 tablet by mouth once daily. - gabapentin (NEURONTIN) 300 mg capsule Take 1 capsule by mouth every 8 hours for 30 days. - JARDIANCE 25 mg tablet Take 25 mg by mouth daily with breakfast. - furosemide (LASIX) 20 mg tablet Take 20 mg by mouth once daily. - rosuvastatin (CRESTOR) 40 mg tablet TAKE 1 TABLET BY MOUTH EVERY DAY nightly Problem List As Of Date 01/31/2025 Noted Resolved PAIN IN JOINT, LOWER LEG [M25.569] 03/07/2006 VT (ventricular tachycardia) (HCC) [I47.20] 08/22/2022 Coronary artery disease involving [place]*08/23/2022 Ischemic cardiomyopathy [I25.5] 08/23/2022 Obesity, Class I, BMI 30-34.9 [E66.811] 08/24/2022 Cervical stenosis of spinal canal [M48.02] 12/19/2024 Preop cardiovascular exam [Z01.810] 12/19/2024 Cervical myelopathy (HCC) [G95.9] 12/21/2024 Primary hypertension [I10] 12/22/2024 Encounter Status:Closed by ANGELIQUE BROTHERS on 01/31/25 Normal [facility] CNOVon 01-21-2025 CNOV Office Visit ([facility] M) -- FRANK ZIMMER ([id number]) 1960 M Date Time Provider Department 01/21/25 2:00 PM LACEY MCDERMOTT [facility] During your visit today, we recorded the following information about you: Pulse Respiration Blood pressure Height 60/minute 16/minute 125/69 1.956 m Lacey Mcdermott MD 01/21/2025 2:27 PM Signed NEUROSURGERY POST-OP NOTE Lacey Mcdermott MD [facility] Date of visit: January 21, 2025 Patient Name: Mr.Barry Elle Zimmer Date of : 1960 Current Age: [age] year old Sex: male MRN/E# [id number] Last Office Visit: 01/08/2025 SURGERY: C2-T1 PCDF 12/20/2024 Pre-Surgical Symptoms: progressive myelopathy, inability to walk Past Medical/Surgical History: Mr. Zimmer is a 64 year old male with a past medical history of CAD and V-tach HPI: Patient is having their 1 month post operative visit. Spoke to [facility] on 01/08/2025 who wished to remove sola. Verified that incision was healing well and did not show signs of infection/dehiscence. Sola OK to be removed by staff at [facility]. Patient feels that surgery went well and he has noticed some strength improvements in his legs and has been working with physical therapy and is able to stand and take a couple steps. He has noticed some swelling in the feet, recommended that he reach out to PCP. He is pleased with his progress and has been wearing his cervical collar. [facility] removed his sola, incision healing well. Incision: Healed Current Outpatient Medications Medication Sig Dispense Refill aspirin, enteric coated (ASPIRIN, ENTERIC COATED) 81 mg EC tablet Take 1 tablet by mouth once daily. Patient should start on December 25, 2024. carvedilol (COREG) 12.5 mg tablet Take 1 tablet by mouth two times a day with meals. 180 tablet amiodarone (PACERONE) 200 mg tablet Take 1 tablet by mouth once daily. 90 tablet 0 lisinopril (ZESTRIL) 5 mg tablet Take 1 tablet by mouth once daily. 90 tablet 0 gabapentin (NEURONTIN) 300 mg capsule Take 1 capsule by mouth every 8 hours for 30 days. 0 JARDIANCE 25 mg tablet Take 25 mg by mouth daily with breakfast. furosemide (LASIX) 20 mg tablet Take 20 mg by mouth once daily. rosuvastatin (CRESTOR) 40 mg tablet TAKE 1 TABLET BY MOUTH EVERY DAY nightly No current facility-administered medications for this visit. Objective Review of Systems PHYSICAL EXAM: Mental State : Alert, memory function unremarkable. Attention span and concentration normal for patient's age. Speech normal, no receptive or expressive speech deficit. Recent and remote memory normal. Orientation : Oriented to person, place and time. Cranial Nerves : Grossly intact. Sensory: Normal Sensation in upper and lower extremities and trunk to touch and noxious stimuli. Motor: Normal muscle tone and bulk. No tremor or uncontrollable movements. No spasticity or tremor. Gait and Station: in wheelchair STRENGTH: Upper Extremity Strength Exam Right Left Elbow Flexion 4+/5 4+/5 Elbow Extension 4/5 4/5 Finger Flexion 4/5 4/5 Finger Extension 4/5 4/5 Finger Abduction 4-/5 4-/5 Lower Extremity Strength Exam Right Left Hip Flexion 4/5 4/5 Knee Flexion 4/5 4/5 Knee Extension 4/5 4/5 Dorsiflexion 4+/5 4+/5 Plantarflexion 5/5 5/5 WOUND ASSESSMENT: Healed PAIN EVALUATION No data found in the last 1 encounters. Data Review: IMAGING STUDIES: XR CERVICAL 01/21/2025: Posterior fusion hardware from C2-T1 in good position. Assessment AND Plan: Mr. Zimmer presents approximately 6 weeks after his posterior cervical decompression and fusion for severe stenosis with profound myelopathy. He is doing very well, with significant improvement in his preoperative myelopathic symptoms. The sensation in his legs is improving, as is his strength in his upper extremities. He spent some time in [facility] but is now home. He is wearing his cervical collar as directed. His incision is well-healed and his x-rays look good. His strength is improving. I explained that the recovery from the out of compression that he had will take some time, but he is making excellent progress. He should continue wearing his collar until her next visit. I will check flexion-extension x-rays in 6 weeks. He would also like me to look at his lumbar spine at the next visit, which we will address later once he heals more from his cervical surgery. All questions answered. Attribution: The following portions of the patient's history were reviewed, confirmed, and updated as necessary: allergies, current medications, past family history, past medical history, past social history, past surgical history, problem list, HPI, and ROS obtained by others. Some elements may be copied from a previous office note and have been reviewed/updated where appropriate. All portions reflect current medical decision making from t (more content not included)... Normal [facility] XR CERVICAL 2V AP/LATon 12-24 XR CERVICAL 2V AP/LAT * * *Final Report* * * DATE OF EXAM: Jan 21 2025 1:28PM A1X 5308 - XR CERVICAL 2V AP/LAT / PROCEDURE REASON: S/P cervical spinal fusion * * * * Physician Interpretation * * * * EXAMINATION / TECHNIQUE: XR CERVICAL 2V AP/LAT HISTORY: 12/20/24 C2-T1 fusion S/P cervical spinal fusion COMPARISON: 12/21/2024. RESULT: Posterior cervicothoracic hardware is intact and unchanged in position. Vertebral body heights and sagittal alignment are preserved. Posterior skin sola have been removed. IMPRESSION: Postoperative changes without complication. Cell Pourer: PSCB Transcribe Date/Time: Jan 28 2025 7:41A Dictated by : PATRICK SULTANA MD This examination was interpreted and the report reviewed and electronically signed by: PATRICK SULTANA MD on Jan 28 2025 7:41AM EST [id number] Normal [facility] Bacteria LM.HPF (Urine sed) [#/Area]Ordered By: Saumya Bobo on 01-14-2025 Urine Bacteria RARE /hpf None Seen [facility] Bilirubin Test strip Ql (U)O rdered By: Saumya Bobo on 01-14-2025 Bilirubin Ql (U) Negative Negative [facility] Discharge Instructionon 12-23 Discharge Instruction Normal [facility] Epithelial cells.squamous LM Ql (Urine sed)Ordered By: Saumya Jeramie on 01-14-2025 Epithelial cells.squamous LM.HPF (Urine sed) [#/Area] 0 /[HPF] 0-5 [facility] Glucose Ql (U)Ordered By: Santi pritchard Jeramie on 01-14-2025 Glucose (U) [Mass/Vol] 1000 mg/dL High Normal [facility] Ketones Test strip Ql (U)Ord ered By: Saumya Jeramie on 01-14-2025 Ketones Ql (U) Negative Negative [facility] Microscopic analysis of urin e for red blood cells (RBC)Ordered By: Saumya Jeramie on 01-14-2025 Microscopic analysis of urine for red blood cells (RBC) 25-50 SEEN /hpf 0-5 [facility] Urine RBC 25-50 SEEN /hpf 0-5 [facility] Mucus LM Ql (Urine sed)Order ed By: Saumya Jeramie on 01-14-2025 Mucus Ql (Urine sed) 0 SEEN /hpf [facility] Nitrite Test strip Ql (U)Ord ered By: Saumya Jeramie on 01-14-2025 Nitrite Ql (U) Negative Negative [facility] Protein Test strip Ql (U)Ord ered By: Saumya Jeramie on 01-14-2025 Protein Ql (U) 30 mg/dl High Negative [facility] Squamous epithelial cells de tection in urine sediment by light microscopyOrdered By: Saumya Jeramie on 01-14-2025 Epithelial cells.squamous LM Ql (Urine sed) 0 SEEN /hpf 0- [facility] Urinalysis, Completeon 01-14 BACTERIA RARE Normal None Seen [facility] Comment on above: Order Comment: TULIO TER SPECIMEN Performed By: #### L 400.0001 ####[facility] [address] [place], [place], [id number] RBC 25-50 SEEN Normal 0- [facility] Comment on above: Order Comment: TULIO TER SPECIMEN Performed By: #### L 400.0001 ####[facility] [address] [place], [place], [id number] EPI,SQUAMOUS 0 SEEN Normal 0-5 [facility] Comment on above: Order Comment: TULIO TER SPECIMEN Performed By: #### L 400.0001 ####[facility] [address] [place], [place], [phone] Mucus Ql (Urine sed) 0 SEEN Normal [facility] Comment on above: Order Comment: TULIO TER SPECIMEN Performed By: #### L 400.0001 ####[facility] [address] [place], [place], [id number] WBC 0 SEEN Normal 0-5 [facility] Comment on above: Order Comment: TULIO TER SPECIMEN Performed By: #### L 400.0001 ####[facility] [address] [place], [place], [id number] Urine blood detectionOrdered By: Saumya Bobo on 01-14-2025 Urine Occult Blood 250 /ul High Negative [facility] Urine clarityOrdered By: Patience Bobo on 01-14-2025 Clarity (U) Sl. Cloudy Clear [facility] Urine color determinationOrd ered By: Saumya Bobo on 01-14-2025 Color (U) Yellow Yellow [facility] Urine glucose detectionOrder ed By: Saumya Bobo on 01-14-2025 Glucose Ql (U) 1000 mg/dl High Normal [facility] Urine leukocyte esterase det ection by dipstickOrdered By: Saumya Bobo on 01-14-2025 Leukocyte esterase Test strip Ql (U) Negative Negative [facility] Urine pHOrdered By: Saumya gongora on 01-14-2025 pH (U) 7.0 [pH] 5.0 - 8.0 [facility] Urine sediment bacteria coun t by microscopy (number/high power field)Ordered By: Saumya Bobo on 01-14-2025 Bacteria LM.HPF (Urine sed) [#/Area] RARE /hpf None Seen [facility] Urine specific gravity measu rementOrdered By: Saumya Bobo on 01-14-2025 Specific gravity (U) [Rel density] 1.010 1.002-1.03 0 [facility] Urine urobilinogen measureme ntOrdered By: Saumya Bobo on 01-14-2025 Urobilinogen Ql (U) Normal mg/dl Normal [facility] Urobilinogen Ql (U)Ordered B y: Saumya Bobo on 01-14-2025 Urine Urobilinogen Normal mg/dl Normal [facility] White blood cell countOrdere d By: Saumya Bobo on 01-14-2025 Urine WBC 0 SEEN /hpf 0-5 [facility] White blood cell count 0 SEEN /hpf 0-5 [facility] Anion gap in Serum or Plasma Ordered By: Saumya Bobo on 01-11-2025 Anion gap [Moles/Vol] 11 mmol/L 5-15 [facility] BUN/creatinine ratioOrdered By: Saumya Bobo on 01-11-2025 Urea nitrogen/Creatinine [Mass ratio] 31.2 mg/mg High 10- [facility] Basic Metabolic Profile (BMP )on 01-11-2025 BUN/CRE 31.2 RATIO High - [facility] Comment on above: Performed By: #### L 100.0500, L500.2500 ####[facility] [address] [place], [address] Calcium [Mass/Vol] 9.0 mg/dL Normal 7.6-11.0 [facility] Comment on above: Performed By: #### L 100.0500, L500.2500 ####[facility] [address] [place], [address] Chloride [Moles/Vol] 102 mmol/L Normal 98-108 [facility] Comment on above: Performed By: #### L 100.0500, L500.2500 ####[facility] [address] [place], [address] CO2 [Moles/Vol] 22.4 mmol/L Normal 21.0-32.0 [facility] Comment on above: Performed By: #### L 100.0500, L500.2500 ####[facility] [address] [place], [address] Creatinine [Mass/Vol] 0.52 mg/dL Low 0.70-1.20 [facility] Comment on above: Performed By: #### L 100.0500, L500.2500 ####[facility] [address] [place], [address] ECRCL 116.02 ml/min Normal 50-250 [facility] Comment on above: Performed By: #### L 100.0500, L500.2500 ####[facility] [address] [place], [address] GAP 11 Normal 5-15 [facility] Comment on above: Performed By: #### L 100.0500, L500.2500 ####[facility] [address] [place], [address] GFR/1.73 sq M.predicted among non-blacks MDRD (S/P/Bld) [Vol rate/Area] 112 mL/min/{1.73_m2} Normal >60 [facility] Comment on above: Result Comment: mL/m in/1.73m2 CKD-EPI Creatinine Equation (2020) Performed By: #### L 100.0500, L500.2500 ####[facility] [address] [place], [address] Glucose [Mass/Vol] 112 mg/dL High 70-99 [facility] Comment on above: Performed By: #### L 100.0500, L500.2500 ####[facility] [address] [place], [address] Potassium [Moles/Vol] 4.0 mmol/L Normal 3.3-5.1 [facility] Comment on above: Performed By: #### L 100.0500, L500.2500 ####[facility] [address] [place], [address] Sodium [Moles/Vol] 135 mmol/L Normal 133-145 [facility] Comment on above: Performed By: #### L 100.0500, L500.2500 ####[facility] [address] [place], [address] Urea nitrogen [Mass/Vol] 16 mg/dL Normal 4-19 [facility] Comment on above: Performed By: #### L 100.0500, L500.2500 ####[facility] [address] [place], [address] CBC-Complete Blood Cnt No Di ffon 01-11-2025 Erythrocyte distribution width (RBC) [Ratio] 15.1 % High 11.6-14.6 [facility] Comment on above: Performed By: #### L 100.0500, L500.2500 ####[facility] [address] [place], [address] Hematocrit (Bld) [Volume fraction] 36.2 % Low 40-54 [facility] Comment on above: Performed By: #### L 100.0500, L500.2500 ####[facility] [address] [place], [address] Hemoglobin (Bld) [Mass/Vol] 12.1 g/dL Low 13.0-16.5 [facility] Comment on above: Performed By: #### L 100.0500, L500.2500 ####[facility] [address] [place], [address] MCH (RBC) [Entitic mass] 32.0 pg Normal 27.0-32.0 [facility] Comment on above: Performed By: #### L 100.0500, L500.2500 ####[facility] [address] [place], [address] MCHC (RBC) [Mass/Vol] 33.4 g/dL Normal 32-36 [facility] Comment on above: Performed By: #### L 100.0500, L500.2500 ####[facility] [address] [place], [address] MCV (RBC) [Entitic vol] 95.8 fL High 80-94 [facility] Comment on above: Performed By: #### L 100.0500, L500.2500 ####[facility] [address] [place], [address] Platelet mean volume (Bld) [Entitic vol] 9.7 fL Normal 6.2-12.0 [facility] Comment on above: Performed By: #### L 100.0500, L500.2500 ####[facility] [address] [place], [address] Platelets (Bld) [#/Vol] 238 10*3/uL Normal 150-450 [facility] Comment on above: Performed By: #### L 100.0500, L500.2500 ####[facility] [address] [place], [address] RBC (Bld) [#/Vol] 3.78 10*6/uL Low 4.6-6.[address] [facility] Comment on above: Performed By: #### L 100.0500, L500.2500 ####[facility] [address] [place], [address] RDW SD 52.8 fl High 35.1-43.9 [facility] Comment on above: Performed By: #### L 100.0500, L500.2500 ####[facility] [address] [place], [address] WBC (Bld) [#/Vol] 8.3 10*3/uL Normal 4.4-11.0 [facility] Comment on above: Performed By: #### L 100.0500, L500.2500 ####[facility] [address] [place], [address] Carbon dioxide, total [Moles /volume] in Central venous bloodOrdered By: Saumya Bobo on 01-11-2025 CO2 [Moles/Vol] 22.4 mmol/L 21.0-32.0 [facility] Chloride assayOrdered By: Santi Bobo on 01-11-2025 Chloride [Moles/Vol] 102 mmol/L 98-108 [facility] Erythrocyte distribution wid th ratioOrdered By: Saumya Bobo on 01-11-2025 Erythrocyte distribution width (RBC) [Ratio] 15.1 % High 11.6-14.6 [facility] Erythrocyte distribution wid th standard deviationOrdered By: Saumya Bobo on 01-11-2025 Erythrocyte distribution width (RBC) [Entitic vol] 52.8 fL High 35.1-43.9 [facility] Erythrocyte distribution width (RBC) [Ratio] 52.8 fl High 35.1-43.9 [facility] Estimation of creatinine javy aranceOrdered By: Saumya Bobo on 01-11-2025 Estimated Creatinine Clearance Calc 116.02 ml/min 50-250 [facility] GFR/1.73 sq M.predicted arnel g non-blacks MDRD (S/P/Bld) [Vol rate/Area]Ordered By: Saumya Bobo on 01-11-2025 Estimated GFR (MDRD) Non-Af Amer 112 >60 [facility] Comment on above: mL/min/1.73m2 CKD-EP I Creatinine Equation (2020) Glomerular filtration rate ( GFR) estimation/1.73 sq m using serum, plasma, or whole bOrdered By: Saumya Bobo on 01-11-2025 GFR/1.73 sq M.predicted among non-blacks MDRD (S/P/Bld) [Vol rate/Area] 112 mL/min/{1.73_m2} >60 [facility] Comment on above: mL/min/1.73m2 CKD-EP I Creatinine Equation (2020) Hematocrit Auto (Bld) [Volum e fraction]Ordered By: Saumya Bobo on 01-11-2025 Hematocrit (Bld) [Volume fraction] 36.2 % Low 40-54 [facility] Hemoglobin measurementOrdere d By: Saumya Bobo on 01-11-2025 Hemoglobin (Bld) [Mass/Vol] 12.1 g/dL Low 13.0-16.5 [facility] MCV (mean corpuscular volume ) determinationOrdered By: Saumya Bobo on 01-11-2025 MCV (RBC) [Entitic vol] 95.8 fL High 80-94 [facility] Mean corpuscular hemoglobin (MCH) determinationOrdered By: Saumya Bobo on 01-11-2025 MCH (RBC) [Entitic mass] 32.0 pg 27.0-32.0 [facility] Mean corpuscular hemoglobin concentration (MCHC) determinationOrdered By: Saumya Bobo on 01-11-2025 MCHC (RBC) [Mass/Vol] 33.4 g/dL 32-36 [facility] Mean platelet volume determi nationOrdered By: Saumya Bobo on 01-11-2025 Platelet mean volume (Bld) [Entitic vol] 9.7 fL 6.2-12.0 [facility] Platelet countOrdered By: Santi Bobo on 01-11-2025 Platelets (Bld) [#/Vol] 238 10*3/uL 150-450 [facility] Potassium (Unsp spec) [Mass/ Vol]Ordered By: Saumya Bobo on 01-11-2025 Potassium [Moles/Vol] 4.0 mmol/L 3.3-5.1 [facility] Potassium measurement (mass/ volume)Ordered By: Saumya Bobo on 01-11-2025 Potassium (Unsp spec) [Mass/Vol] 4.0 mmol/L 3.3-5.1 [facility] RBC Auto (Bld) [#/Vol]Ordere d By: Saumya Bobo on 01-11-2025 RBC (Bld) [#/Vol] 3.78 10*6/uL Low 4.6-6.[address] [facility] Serum creatinine measurement (mass/volume)Ordered By: Saumya Bobo on 01-11-2025 Creatinine [Mass/Vol] 0.52 mg/dL Low 0.70-1.20 [facility] Serum glucose measurement (m ass/volume)Ordered By: Saumya Bobo on 01-11-2025 Glucose [Mass/Vol] 112 mg/dL High 70-99 [facility] Serum or plasma calcium amaya urement (mass/volume)Ordered By: Saumya Bobo on 01-11-2025 Calcium [Mass/Vol] 9.0 mg/dL 7.6-11.0 [facility] Serum or plasma urea nitroge n measurement (mass/volume)Ordered By: Saumya Lovelacesamantha on 01-11-2025 Urea nitrogen [Mass/Vol] 16 mg/dL 4-19 [facility] Sodium levelOrdered By: Saumya Jeramie on 01-11-2025 Sodium [Moles/Vol] 135 mmol/L 133-145 [facility] White blood cell (WBC) count Ordered By: Saumya Jeramie on 01-11-2025 WBC (Bld) [#/Vol] 8.3 10*3/uL 4.4-11.0 [facility] Bedside Glucoseon 01-10-2025 FINGERSTICK GLU 120 mg/dL High [address] [place] [address] Comment on above: Result Comment: LEONEL GEMENT OF PATIENT CARE PER NURSING PROTOCOL Performed By: #### L 501.080 ####[facility] [address] [facility] [id number] Gl[facility] at [facility] deOrdered By: Saumya Jeramie on 01-10-2025 Bedside Glucose (Misc Panel) 120 mg/dL High [address] [place] [address] Comment on above: MANAGEMENT OF PATIEN T CARE PER NURSING PROTOCOL Glucose [Mass/Vol] 120 mg/dL High [facility] Comment on above: MANAGEMENT OF PATIEN T CARE PER NURSING PROTOCOL Bedside Glucoseon 01-09-2025 FINGERSTICK GLU 133 mg/dL High [address] [place] [address] Comment on above: Result Comment: LEONEL GEMENT OF PATIENT CARE PER NURSING PROTOCOL Performed By: #### L 501.080 ####[facility] [address] [place], [place], [phone] FINGERSTICK GLU 113 mg/dL High [address] [place] [address] Comment on above: Result Comment: LEONEL GEMENT OF PATIENT CARE PER NURSING PROTOCOL Performed By: #### L 501.080 ####[facility] [address] [place], [place], [phone] Bedside Glucoseon 01-08-2025 FINGERSTICK GLU 165 mg/dL High 74-106 [facility] Comment on above: Result Comment: LEONEL GEMENT OF PATIENT CARE PER NURSING PROTOCOL Performed By: #### L 501.080 ####[facility] [address] [place], [address] FINGERSTICK GLU 117 mg/dL High 74-106 [facility] Comment on above: Result Comment: LEONEL GEMENT OF PATIENT CARE PER NURSING PROTOCOL Performed By: #### L 501.080 ####[facility] [address] [place], [address] FINGERSTICK GLU 132 mg/dL High 74-106 [facility] Comment on above: Result Comment: LEONEL GEMENT OF PATIENT CARE PER NURSING PROTOCOL Performed By: #### L 501.080 ####[facility] [address] [place], [place], [address] CNPNon 01-08-2025 [facility] Telephone ([facility]) -- FRANK ZIMMER ([id number]) 1960 M Date Time Provider Department 01/08/25 LACEY MCDERMOTT [facility] During your visit today, we recorded the following information about you: Angelique Brothers RN 01/08/2025 9:05 AM Signed Called and LVM with [facility] [place] - Requested to discuss staple removal and discuss follow up details. Angelique Brothers RN Allergies As of Date: 01/08/2025 Noted Allergy Reaction BEES 09/27/2005 Comments: ANAPHALACTIC REACTION MORPHINE 08/22/2022 11 - Vomiting Date Reviewed: 12/24/2024 Reviewed by: Maine Ramos RN - Fully Assessed Prescriptions as of 01/08/2025 - aspirin, enteric coated (ASPIRIN, ENTERIC COATED) 81 mg EC tablet Take 1 tablet by mouth once daily. Patient should start on December 25, 2024. - carvedilol (COREG) 12.5 mg tablet Take 1 tablet by mouth two times a day with meals. - amiodarone (PACERONE) 200 mg tablet Take 1 tablet by mouth once daily. - lisinopril (ZESTRIL) 5 mg tablet Take 1 tablet by mouth once daily. - gabapentin (NEURONTIN) 300 mg capsule Take 1 capsule by mouth every 8 hours for 30 days. - naloxone 4 mg/actuation nasal spray (NARCAN) Use 1 spray in one nostril as needed for overdose. May repeat every 2 to 3 min in alternating nostrils until medical assistance is available - naloxone 4 mg/actuation nasal spray (NARCAN) Use 1 spray in one nostril as needed for overdose. May repeat every 2 to 3 min in alternating nostrils until medical assistance is available - traMADol (ULTRAM) 50 mg tablet Take 50 mg by mouth three times a day. - JARDIANCE 25 mg tablet Take 25 mg by mouth daily with breakfast. - furosemide (LASIX) 20 mg tablet Take 20 mg by mouth once daily. - metFORMIN ER (GLUCOPHAGE XR) 500 mg 24 hr tablet Take 500 mg by mouth twice daily. - rosuvastatin (CRESTOR) 40 mg tablet TAKE 1 TABLET BY MOUTH EVERY DAY nightly Problem List As Of Date 01/08/2025 Noted Resolved PAIN IN JOINT, LOWER LEG [M25.569] 03/07/2006 VT (ventricular tachycardia) (HCC) [I47.20] 08/22/2022 Coronary artery disease involving [place]*08/23/2022 Ischemic cardiomyopathy [I25.5] 08/23/2022 Obesity, Class I, BMI 30-34.9 [E66.811] 08/24/2022 Cervical stenosis of spinal canal [M48.02] 12/19/2024 Preop cardiovascular exam [Z01.810] 12/19/2024 Cervical myelopathy (HCC) [G95.9] 12/21/2024 Primary hypertension [I10] 12/22/2024 Encounter Status:Closed by ANGELIQUE BROTHERS on 01/08/25 [facility] CNPN Telephone (NEAGCLM) -- FRANK ZIMMER ([id number]) 1960 M Date Time Provider Department 01/08/25 LACEY MCDERMOTTAGCBERTA During your visit today, we recorded the following information about you: Angelique Brothers RN 01/08/2025 9:27 AM Signed Spoke to Yanelis - nurse caring for Frank at [facility] [place] - Ok'd staple removal as we are over 2 weeks PO and states ok as long as no dehiscence, no signs of infection, drainage. She verify incision is healing well with no issues. Per Yanelis [place] will not transfer here so follow up appointment will need scheduled for after 01/15/2025, as that is the pending date of discharge. ROZINA Newman Haley, RN 01/08/2025 10:48 AM Signed Spoke to Rolanda, of Frank and endorsed that I spoke with the facility and that they will be removing his sola. Also let her know that I confirmed they do not transport here and we will need to schedule the follow up for after 01/15/2025, which is his pending discharge date. Attempting to have him seen 01/21/2025. Advised her that we will call once verified appointment time and date. ROZINA Newman Haley, RN 01/08/2025 2:03 PM Signed Spoke to Dr. Hoang, the doctor over at [facility], who asked if it was okay to give patient Celebrex 100mg daily - Spoke to Dr. Mcdermott who wishes to hold NSAIDS for a few months following surgical intervention. Patient is taking Tylenol 1,000mg TID already as well as topical cream, both given by the facility. She advised they will have him follow with chronic pain management regarding this. Angelique Brothers RN Allergies As of Date: 01/08/2025 Noted Allergy Reaction BEES 09/27/2005 Comments: ANAPHALACTIC REACTION MORPHINE 08/22/2022 11 - Vomiting Date Reviewed: 12/24/2024 Reviewed by: Maine Ramos RN - Fully Assessed Prescriptions as of 01/08/2025 - aspirin, enteric coated (ASPIRIN, ENTERIC COATED) 81 mg EC tablet Take 1 tablet by mouth once daily. Patient should start on December 25, 2024. - carvedilol (COREG) 12.5 mg tablet Take 1 tablet by mouth two times a day with meals. - amiodarone (PACERONE) 200 mg tablet Take 1 tablet by mouth once daily. - lisinopril (ZESTRIL) 5 mg tablet Take 1 tablet by mouth once daily. - gabapentin (NEURONTIN) 300 mg capsule Take 1 capsule by mouth every 8 hours for 30 days. - naloxone 4 mg/actuation nasal spray (NARCAN) Use 1 spray in one nostril as needed for overdose. May repeat every 2 to 3 min in alternating nostrils until medical assistance is available - naloxone 4 mg/actuation nasal spray (NARCAN) Use 1 spray in one nostril as needed for overdose. May repeat every 2 to 3 min in alternating nostrils until medical assistance is available - traMADol (ULTRAM) 50 mg tablet Take 50 mg by mouth three times a day. - JARDIANCE 25 mg tablet Take 25 mg by mouth daily with breakfast. - furosemide (LASIX) 20 mg tablet Take 20 mg by mouth once daily. - metFORMIN ER (GLUCOPHAGE XR) 500 mg 24 hr tablet Take 500 mg by mouth twice daily. - rosuvastatin (CRESTOR) 40 mg tablet TAKE 1 TABLET BY MOUTH EVERY DAY nightly Problem List As Of Date 01/08/2025 Noted Resolved PAIN IN JOINT, LOWER LEG [M25.569] 03/07/2006 VT (ventricular tachycardia) (HCC) [I47.20] 08/22/2022 Coronary artery disease involving [place]*08/23/2022 Ischemic cardiomyopathy [I25.5] 08/23/2022 Obesity, Class I, BMI 30-34.9 [E66.811] 08/24/2022 Cervical stenosis of spinal canal [M48.02] 12/19/2024 Preop cardiovascular exam [Z01.810] 12/19/2024 Cervical myelopathy (HCC) [G95.9] 12/21/2024 Primary hypertension [I10] 12/22/2024 Encounter Status:Closed by ANGELIQUE BROTHERS on 01/08/25 Normal [facility] Bedside Glucoseon 01-07-2025 FINGERSTICK GLU 174 mg/dL High 74-106 [facility] Comment on above: Result Comment: LEONEL GEMENT OF PATIENT CARE PER NURSING PROTOCOL Performed By: #### L 501.080 ####[facility] [address] [facility] [address] FINGERSTICK GLU 196 mg/dL High 74-106 [facility] Comment on above: Result Comment: LEONEL GEMENT OF PATIENT CARE PER NURSING PROTOCOL Performed By: #### L 501.080 ####[facility] [address] [place], [address] FINGERSTICK GLU 146 mg/dL High [facility] Comment on above: Result Comment: LEONEL GEMENT OF PATIENT CARE PER NURSING PROTOCOL Performed By: #### L 501.080 ####[facility] [address] [facility] [address] FINGERSTICK GLU 120 mg/dL High [facility] Comment on above: Result Comment: LEONEL GEMENT OF PATIENT CARE PER NURSING PROTOCOL Performed By: #### L 501.080 ####[facility] [address] [place], [address] Electrocardiogram reportOrde red By: Chun Coreas on 01-07-2025 EKG study [facility] [facility] [address] [place] [address] 12 Lead EKG 01/03/25 0452 MR#: [id number] Acct: [id number] Name: FRANK ZIMMER Rep #:[id number] : 1960 64 From: Chun bryant MD Attending Dr: Dr. Saumya Bobo, Status: ADM IN Ordering Dr: Saumya Bobo DO Date: 01/03/25 Location: RU Sex: M C Admitted: 12/24/24 Test Reason : rapid response Blood Pressure : */* mmHG Vent. Rate : 75 BPM Atrial Rate : 48 BPM P-R Int : 128 ms QRS Dur : 176 ms QT Int : 464 ms P-R-T Axes : 97 257 64 degrees QTcB Int : 518 ms Atrial-sensed ventricular-paced rhythm with frequent Premature ventricular complexes Biventricular pacemaker detected Abnormal ECG When compared with ECG of 28-Dec-2024 13:09, Vent. rate has increased by 6 bpm Confirmed by JOSS MOREAU, MAURA ([id number]), supervising film or videotape editor WILFREDO PASCUAL ([id number]) on01/07/2025 11:44:08 AM Referred By: Saumya Bobo Confirmed By: MAURA COREAS MD 01/07/25 1144 Date _ Chun Coreas MD CC: Dr. Reagan Soto MD; Dr. Saumya Bobo, DO ~ Signed [facility] Work Phone: Bedside Glucoseon 01-06-2025 FINGERSTICK GLU 174 mg/dL High [address] [place] [address] Comment on above: Result Comment: LEONEL GEMENT OF PATIENT CARE PER NURSING PROTOCOL Performed By: #### L 501.080 ####[facility] [address] [facility] 449280(601) FINGERSTICK GLU 219 mg/dL High [address] [place] [address] Comment on above: Result Comment: LEONEL GEMENT OF PATIENT CARE PER NURSING PROTOCOL Performed By: #### L 501.080 ####[facility] [address] [facility] [address] FINGERSTICK GLU 182 mg/dL High [address] [place] [address] Comment on above: Result Comment: LEONEL GEMENT OF PATIENT CARE PER NURSING PROTOCOL Performed By: #### L 501.080 ####[facility] [address] [facility] [address] FINGERSTICK GLU 117 mg/dL High 74-106 [facility] Comment on above: Result Comment: LEONEL GEMENT OF PATIENT CARE PER NURSING PROTOCOL Performed By: #### L 501.080 ####[facility] [address] [place], [address] Gram Stainon 01-06-2025 GS List Antibiotics Las t 48 Hours? yes List Antibiotics to be Started? zosyn Acceptable Specimen? Yes (<25 Epithelial cells per/lpf) Gram Stain 4+ White Blood Cells No Epithelial cells 1+ Gram positive cocci Rare Gram positive rods Normal [facility] Comment on above: Performed By: #### M 100.1999, M100.2400 ####[facility] [address] [place], [address] Respiratory Cultureon 2024 RESPC List Antibiotics Las t 48 Hours? yes List Antibiotics to be Started? zosyn Mixed normal respiratory sudhakar. No Streptococcus pneumoniae, beta-hemolytic Streptococcus or Staphylococcus aureus isolated. Normal [facility] Comment on above: Performed By: #### M 100.1999, M100.2400 ####[facility] [address] [place], [address] Bedside Glucoseon 01-05-2025 FINGERSTICK GLU 183 mg/dL High 74-106 [facility] Comment on above: Result Comment: LEONEL GEMENT OF PATIENT CARE PER NURSING PROTOCOL Performed By: #### L 501.080 ####[facility] [address] [place], [address] FINGERSTICK GLU 233 mg/dL High 74-106 [facility] Comment on above: Result Comment: LEONEL GEMENT OF PATIENT CARE PER NURSING PROTOCOL Performed By: #### L 501.080 ####[facility] [address] [place], [address] FINGERSTICK GLU 172 mg/dL High 74-106 [facility] Comment on above: Result Comment: LEONEL GEMENT OF PATIENT CARE PER NURSING PROTOCOL Performed By: #### L 501.080 ####[facility] [address] [place], [address] FINGERSTICK GLU 108 mg/dL High 74-106 [facility] Comment on above: Result Comment: LEONEL GEMENT OF PATIENT CARE PER NURSING PROTOCOL Performed By: #### L 501.080 ####[facility] [address] [place], [address] Gram stainOrdered By: Saumya monterroso on 01-05-2025 Microscopic observation Gram stain Nom (Unsp spec) [facility] Microbial respiratory cultur eOrdered By: Saumya Bobo on 01-05-2025 Microorganism identified Cx Nom (Unsp spec) or Staphylococcus aureus isolated. [facility] Microorganism identified Cx Nom (Unsp spec)Ordered By: Saumya Bobo on 01-05-2025 Respiratory Culture or Staphylococcus au reus isolated. [facility] Bedside Glucoseon 01-04-2025 FINGERSTICK GLU 164 mg/dL High 74-106 [facility] Comment on above: Result Comment: LEONEL GEMENT OF PATIENT CARE PER NURSING PROTOCOL Performed By: #### L 501.080 ####[facility] [address] [place], [address] FINGERSTICK GLU 183 mg/dL High 74-106 [facility] Comment on above: Result Comment: LEONEL GEMENT OF PATIENT CARE PER NURSING PROTOCOL Performed By: #### L 501.080 ####[facility] [address] [place], [address] FINGERSTICK GLU 137 mg/dL High 74-106 [facility] Comment on above: Result Comment: LEONEL GEMENT OF PATIENT CARE PER NURSING PROTOCOL Performed By: #### L 501.080 ####[facility] [address] [place], [address] FINGERSTICK GLU 116 mg/dL High 74-106 [facility] Comment on above: Result Comment: LEONEL GEMENT OF PATIENT CARE PER NURSING PROTOCOL Performed By: #### L 501.080 ####[facility] [address] [place], [place], [id number] 12 Lead EKGon 01-03-2025 12 Lead EKG Normal [facility] Absolute lymphocyte countOrd ered By: Armando Shin on 01-03-2025 Lymphocytes Auto (Unsp spec) [#/Vol] 1.15 10*3/uL 0.83-4.51 [facility] Absolute neutrophil countOrd ered By: Armando Shin on 01-03-2025 Neutrophils (Bld) [#/Vol] 14.0 10*3/uL High 2.0-7.7 [facility] Arterial patency Wrist arter y --pre arterial punctureOrdered By: Saumya Bobo on 01-03-2025 Benji Test Positive [facility] Assessment of wrist artery p atency prior to arterial punctureOrdered By: Saumya Bobo on 01-03-2025 Arterial patency Wrist artery --pre arterial puncture Positive [facility] Automated lymphocyte count a s percentage of total leukocytesOrdered By: Armando Shin on 01-03-2025 Lymphocytes/100 WBC Auto (Unsp spec) 6.9 % Low 19-41 [facility] Base excess Calc (BldV) [Mol es/Vol]Ordered By: Saumya Bobo on 01-03-2025 Blood Gas Base Excess 1 mmol/L -2-2 [facility] Basic Metabolic Profile (BMP )on 01-03-2025 BUN Normal 4-19 [facility] Comment on above: Result Comment: MOVE D TO ANOTHER REQ BMP IS OVERLAPPING Performed By: #### L 500.2500 ####[facility] [address] [place], [place], [id number] BUN/CRE Normal 10-20 [facility] Comment on above: Result Comment: MOVE D TO ANOTHER REQ BMP IS OVERLAPPING Performed By: #### L 500.2500 ####[facility] [address] [place], [place], [id number] Calcium Normal 7.6-11.0 [facility] Comment on above: Result Comment: MOVE D TO ANOTHER REQ BMP IS OVERLAPPING Performed By: #### L 500.2500 ####[facility] [address] [place], [address] CL Normal 98-108 [facility] Comment on above: Result Comment: MOVE D TO ANOTHER REQ BMP IS OVERLAPPING Performed By: #### L 500.2500 ####[facility] [address] [place], [address] CO2 Normal 21.0-32.0 [facility] Comment on above: Result Comment: MOVE D TO ANOTHER REQ BMP IS OVERLAPPING Performed By: #### L 500.2500 ####[facility] [address] [place], [address] CREAT,SERUM Normal 0.70-1.20 [facility] Comment on above: Result Comment: MOVE D TO ANOTHER REQ BMP IS OVERLAPPING Performed By: #### L 500.2500 ####[facility] [address] [place], [address] eGFR Normal >60 [facility] Comment on above: Result Comment: MOVE D TO ANOTHER REQ BMP IS OVERLAPPING Performed By: #### L 500.2500 ####[facility] [address] [place], [address] GAP Normal 5-15 [facility] Comment on above: Result Comment: MOVE D TO ANOTHER REQ BMP IS OVERLAPPING Performed By: #### L 500.2500 ####[facility] [address] [place], [address] GLU Normal 70-99 [facility] Comment on above: Result Comment: MOVE D TO ANOTHER REQ BMP IS OVERLAPPING Performed By: #### L 500.2500 ####[facility] [address] [place], [address] Potassium Normal 3.3-5.1 [facility] Comment on above: Result Comment: MOVE D TO ANOTHER REQ BMP IS OVERLAPPING Performed By: #### L 500.2500 ####[facility] [address] [place], [address] Basic Metabolic Profile (BMP) Normal 133-145 [facility] Comment on above: Result Comment: MOVE D TO ANOTHER REQ BMP IS OVERLAPPING Performed By: #### L 500.2500 ####[facility] [address] [place], [address] Basophil percentageOrdered B y: Armando Shin on 01-03-2025 Basophils/100 WBC (Bld) 0.2 % 0-1 [facility] Bedside Glucoseon 01-03-2025 FINGERSTICK GLU 201 mg/dL High 74-106 [facility] Comment on above: Result Comment: LEONEL GEMENT OF PATIENT CARE PER NURSING PROTOCOL Performed By: #### L 501.080 ####[facility] [address] [place], [address] FINGERSTICK GLU 183 mg/dL High 74-106 [facility] Comment on above: Result Comment: LEONEL GEMENT OF PATIENT CARE PER NURSING PROTOCOL Performed By: #### L 501.080 ####[facility] [address] [place], [address] FINGERSTICK GLU 277 mg/dL High 74-106 [facility] Comment on above: Result Comment: LEONEL GEMENT OF PATIENT CARE PER NURSING PROTOCOL Performed By: #### L 501.080 ####[facility] [address] [place], [address] FINGERSTICK GLU 143 mg/dL High 74-106 [facility] Comment on above: Result Comment: LEONEL GEMENT OF PATIENT CARE PER NURSING PROTOCOL Performed By: #### L 501.080 ####[facility] [address] [place], [address] FINGERSTICK GLU 129 mg/dL High 74-106 [facility] Comment on above: Result Comment: LEONEL GEMENT OF PATIENT CARE PER NURSING PROTOCOL Performed By: #### L 501.080 ####[facility] [address] [place], [address] Bilirubin, totalOrdered By: Armando Shin on 01-03-2025 Bilirubin [Mass/Vol] 0.34 mg/dL 0.00-1.30 [facility] Blood Gases by CPSon 025 BENJI TEST Positive Normal [facility] Comment on above: Performed By: #### L 9000.0800 ####[facility] [address] [place], [address] Base excess Calc (Bld) [Moles/Vol] 1 mmol/L Normal -2 to +2 [facility] Comment on above: Performed By: #### L 9000.0800 ####[facility] [address] [place], [address] Blood Gas Type ART Normal [facility] Comment on above: Performed By: #### L 9000.0800 ####[facility] [address] [place], [address] CO2 [Moles/Vol] 25 mmol/L Normal [facility] Comment on above: Performed By: #### L 9000.0800 ####[facility] [address] [place], [address] FI02 100.0 Normal [facility] Comment on above: Performed By: #### L 9000.0800 ####[facility] [address] [place], [address] HCO3 (Bld) [Moles/Vol] 24.0 mmol/L Normal 22-26 [facility] Comment on above: Performed By: #### L 9000.0800 ####[facility] [address] [place], [address] Mode Not entered [facility] Comment on above: Performed By: #### L 9000.0800 ####[facility] [address] [place], [address] O2 Delivery Dev NRB Normal [facility] Comment on above: Performed By: #### L 9000.0800 ####[facility] [address] [place], [address] pCO2 31.1 mmHg Low 35-45 [facility] Comment on above: Performed By: #### L 9000.0800 ####[facility] [address] [place], [address] pH (Bld) 7.50 [pH] High 7.35-7.45 [facility] Comment on above: Performed By: #### L 9000.0800 ####[facility] [address] [place], [address] PO2 71 mmHG Low 75-100 [facility] Comment on above: Performed By: #### L 9000.0800 ####[facility] [address] [place], [address] SITE L Radial Normal [facility] Comment on above: Performed By: #### L 9000.0800 ####[facility] [address] [place], [address] SO2 96 Normal 95-99 [facility] Comment on above: Performed By: #### L 9000.0800 ####[facility] [address] [place], [address] Blood base excess determinat ionOrdered By: Saumya Bobo on 01-03-2025 Base excess Calc (BldV) [Moles/Vol] 1 mmol/L -2-2 [facility] Blood bicarbonate measuremen tOrdered By: Saumya Bobo on 01-03-2025 Blood Gas Bicarbonate Actual 24.0 mmol/L [facility] HCO3 (Bld) [Moles/Vol] 24.0 mmol/L - [facility] CBC W/Diff, Automatedon 12-22 Absolute Lymph 1.15 X10 3/uL Normal 0.83-4.51 [facility] Comment on above: Performed By: #### L 100.0100, L501.2300, L500.4050, L501.5200, L501.4021 ####[facility] [address] [place], [address] Absolute Neut 14.0 X10 3/uL High 2.0-7.7 [facility] Comment on above: Performed By: #### L 100.0100, L501.2300, L500.4050, L501.5200, L501.4021 ####[facility] [address] [place], [address] Basophils/100 WBC (Bld) 0.2 % Normal 0-1 [facility] Comment on above: Performed By: #### L 100.0100, L501.2300, L500.4050, L501.5200, L501.4021 ####[facility] [address] [place], [address] Eosinophils/100 WBC (Bld) 1.4 % Normal 0-5 [facility] Comment on above: Performed By: #### L 100.0100, L501.2300, L500.4050, L501.5200, L501.4021 ####[facility] [address] [place], [address] Erythrocyte distribution width (RBC) [Ratio] 14.6 % Normal 11.6-14.6 [facility] Comment on above: Performed By: #### L 100.0100, L501.2300, L500.4050, L501.5200, L501.4021 ####[facility] [address] [place], [address] Hematocrit (Bld) [Volume fraction] 36.8 % Low 40-54 [facility] Comment on above: Performed By: #### L 100.0100, L501.2300, L500.4050, L501.5200, L501.4021 ####[facility] [address] [place], [address] Hemoglobin (Bld) [Mass/Vol] 12.1 g/dL Low 13.0-16.5 [facility] Comment on above: Performed By: #### L 100.0100, L501.2300, L500.4050, L501.5200, L501.4021 ####[facility] [address] [place], [address] IG% 0.500 Normal 0.0-0.9 [facility] Comment on above: Result Comment: IG% - Immature Granulocytes (promyelocytes, myelocytes andmetamyelocytes) > 1% indicates that a LEFT SHIFT is Present. Performed By: #### L 100.0100, L501.2300, L500.4050, L501.5200, L501.4021 ####[facility] [address] [place], [address] Lymphocytes/100 WBC (Bld) 6.9 % Low 19-41 [facility] Comment on above: Performed By: #### L 100.0100, L501.2300, L500.4050, L501.5200, L501.4021 ####[facility] [address] [place], [address] MCH (RBC) [Entitic mass] 31.7 pg Normal 27.0-32.0 [facility] Comment on above: Performed By: #### L 100.0100, L501.2300, L500.4050, L501.5200, L501.4021 ####[facility] [address] [place], [address] MCHC (RBC) [Mass/Vol] 32.9 g/dL Normal 32-36 [facility] Comment on above: Performed By: #### L 100.0100, L501.2300, L500.4050, L501.5200, L501.4021 ####[facility] [address] [place], [address] MCV (RBC) [Entitic vol] 96.3 fL High 80-94 [facility] Comment on above: Performed By: #### L 100.0100, L501.2300, L500.4050, L501.5200, L501.4021 ####[facility] [address] [place], [address] Monocytes/100 WBC (Bld) 6.8 % Normal 0-10 [facility] Comment on above: Performed By: #### L 100.0100, L501.2300, L500.4050, L501.5200, L501.4021 ####[facility] [address] [place], [address] Neutrophils/100 WBC (Bld) 84.2 % High 47-70 [facility] Comment on above: Performed By: #### L 100.0100, L501.2300, L500.4050, L501.5200, L501.4021 ####[facility] [address] [place], [address] Nucleated RBC (Bld) [#/Vol] 0 10*3/uL Normal 0-5 [facility] Comment on above: Performed By: #### L 100.0100, L501.2300, L500.4050, L501.5200, L501.4021 ####[facility] [address] [place], [address] Platelet mean volume (Bld) [Entitic vol] 9.4 fL Normal 6.2-12.0 [facility] Comment on above: Performed By: #### L 100.0100, L501.2300, L500.4050, L501.5200, L501.4021 ####[facility] [address] [place], [address] Platelets (Bld) [#/Vol] 320 10*3/uL Normal 150-450 [facility] Comment on above: Performed By: #### L 100.0100, L501.2300, L500.4050, L501.5200, L501.4021 ####[facility] [address] [place], [address] RBC (Bld) [#/Vol] 3.82 10*6/uL Low 4.6-6.[address] [facility] Comment on above: Performed By: #### L 100.0100, L501.2300, L500.4050, L501.5200, L501.4021 ####[facility] [address] [place], [address] RDW SD 51.4 fl High 35.1-43.9 [facility] Comment on above: Performed By: #### L 100.0100, L501.2300, L500.4050, L501.5200, L501.4021 ####[facility] [address] [place], [address] WBC (Bld) [#/Vol] 16.7 10*3/uL High 4.4-11.[address] [facility] Comment on above: Performed By: #### L 100.0100, L501.2300, L500.4050, L501.5200, L501.4021 ####[facility] [address] [place], [address] Chest 1 View (Portable)on Chest 1 View (Portable) Normal [facility] Comprehensive Metabolic Prof ilon 01-03-2025 Albumin [Mass/Vol] 3.5 g/dL Normal 3.4-4.8 [facility] Comment on above: Performed By: #### L 100.0100, L501.2300, L500.4050, L501.5200, L501.4021 ####[facility] [address] [place], [address] Albumin/Globulin [Mass ratio] 1.3 {ratio} Normal 0.9-2.4 [facility] Comment on above: Performed By: #### L 100.0100, L501.2300, L500.4050, L501.5200, L501.4021 ####[facility] [address] [place], [address] ALK PHOS 70 U/L Normal 40-129 [facility] Comment on above: Performed By: #### L 100.0100, L501.2300, L500.4050, L501.5200, L501.4021 ####[facility] [address] [place], [address] ALT [Catalytic activity/Vol] 29 U/L Normal <=46 [facility] Comment on above: Performed By: #### L 100.0100, L501.2300, L500.4050, L501.5200, L501.4021 ####[facility] [address] [place], [address] AST [Catalytic activity/Vol] 15 U/L Normal <=37 [facility] Comment on above: Performed By: #### L 100.0100, L501.2300, L500.4050, L501.5200, L501.4021 ####[facility] [address] [place], [address] Bilirubin [Mass/Vol] 0.34 mg/dL Normal 0.00-1.30 [facility] Comment on above: Performed By: #### L 100.0100, L501.2300, L500.4050, L501.5200, L501.4021 ####[facility] [address] [place], [address] BUN/CRE 31.9 RATIO High 10-20 [facility] Comment on above: Performed By: #### L 100.0100, L501.2300, L500.4050, L501.5200, L501.4021 ####[facility] [address] [place], [address] Calcium [Mass/Vol] 9.0 mg/dL Normal 7.6-11.0 [facility] Comment on above: Performed By: #### L 100.0100, L501.2300, L500.4050, L501.5200, L501.4021 ####[facility] [address] [place], [address] Chloride [Moles/Vol] 101 mmol/L Normal 98-108 [facility] Comment on above: Performed By: #### L 100.0100, L501.2300, L500.4050, L501.5200, L501.4021 ####[facility] [address] [place], [address] CO2 [Moles/Vol] 23.1 mmol/L Normal 21.0-32.0 [facility] Comment on above: Performed By: #### L 100.0100, L501.2300, L500.4050, L501.5200, L501.4021 ####[facility] [address] [place], [address] Creatinine [Mass/Vol] 0.67 mg/dL Low 0.70-1.20 [facility] Comment on above: Performed By: #### L 100.0100, L501.2300, L500.4050, L501.5200, L501.4021 ####[facility] [address] [place], [address] ECRCL 116.02 ml/min Normal 50-250 [facility] Comment on above: Performed By: #### L 100.0100, L501.2300, L500.4050, L501.5200, L501.4021 ####[facility] [address] [place], [address] GAP 13 Normal 5-15 [facility] Comment on above: Performed By: #### L 100.0100, L501.2300, L500.4050, L501.5200, L501.4021 ####[facility] [address] [place], [address] GFR/1.73 sq M.predicted among non-blacks MDRD (S/P/Bld) [Vol rate/Area] 104 mL/min/{1.73_m2} Normal >60 [facility] Comment on above: Result Comment: mL/m in/1.73m2 CKD-EPI Creatinine Equation (2020) Performed By: #### L 100.0100, L501.2300, L500.4050, L501.5200, L501.4021 ####[facility] [address] [place], [address] Globulin (S) [Mass/Vol] 2.7 g/dL Normal 2.2-4.2 [facility] Comment on above: Performed By: #### L 100.0100, L501.2300, L500.4050, L501.5200, L501.4021 ####[facility] [address] [place], [address] Glucose [Mass/Vol] 132 mg/dL High 70-99 [facility] Comment on above: Performed By: #### L 100.0100, L501.2300, L500.4050, L501.5200, L501.4021 ####[facility] [address] [place], [address] Potassium [Moles/Vol] 3.8 mmol/L Normal 3.3-5.1 [facility] Comment on above: Performed By: #### L 100.0100, L501.2300, L500.4050, L501.5200, L501.4021 ####[facility] [address] [place], [address] Sodium [Moles/Vol] 137 mmol/L Normal 133-145 [facility] Comment on above: Performed By: #### L 100.0100, L501.2300, L500.4050, L501.5200, L501.4021 ####[facility] [address] [place], [address] T PROT 6.3 g/dL Normal 5.9-8.4 [facility] Comment on above: Performed By: #### L 100.0100, L501.2300, L500.4050, L501.5200, L501.4021 ####[facility] [address] [place], [address] Urea nitrogen [Mass/Vol] 21 mg/dL High 4-19 [facility] Comment on above: Performed By: #### L 100.0100, L501.2300, L500.4050, L501.5200, L501.4021 ####[facility] [address] [place], [address] Determination of fraction of inspired oxygenOrdered By: Saumya Bobo on 01-03-2025 Blood Gas Oxygen Percent 100.0 [facility] Eosinophil percentageOrdered By: Armando Shin on 01-03-2025 Eosinophils/100 WBC (Bld) 1.4 % 0-5 [facility] Immature granulocytes/100 WB C Auto (Bld)Ordered By: Armando Shin on 01-03-2025 Immature granulocytes/100 WBC (Bld) 0.500 % 0.0-0.9 [facility] Comment on above: IG% - Immature Granu locytes (promyelocytes, myelocytes and metamyelocytes) > 1% indicates that a LEFT SHIFT is Present. L499.0042on 01-03-2025 Trop T High Sen 18 ng/L Normal <=22 [facility] Comment on above: Performed By: #### L 499.0042 ####[facility] [address] [place], [address] L499.0043on 01-03-2025 Trop T High Sen 21 ng/L Normal <=22 [facility] Comment on above: Performed By: #### L 499.0043 ####[facility] [address] [place], [address] L501.4021on 01-03-2025 Trop T High Sen 17 ng/L Normal <=22 [facility] Comment on above: Performed By: #### L 100.0100, L501.2300, L500.4050, L501.5200, L501.4021 ####[facility] [address] [place], [address] Laboratory - Chemistry and C hemistry - challengeOrdered By: Armando Shin on 01-03-2025 AST [Catalytic activity/Vol] 15 U/L <38 [facility] Lymphocytes Auto (Unsp spec) [#/Vol]Ordered By: Armando Shin on 01-03-2025 Lymphocytes (Bld) [#/Vol] 1.15 10*3/uL 0.83-4.51 [facility] Lymphocytes/100 WBC Auto (Un sp spec)Ordered By: Armando Shin on 01-03-2025 Lymphocytes/100 WBC (Bld) 6.9 % Low 19-41 [facility] M8200.1000on 01-03-2025 M8200.1000 Normal Reference Ran ge = Negative MRSA DNA Nose Ql JASON+probe GeneXpert Instrument, PCR method MRSA PCR MRSA NEGATIVE Normal [facility] Comment on above: Performed By: #### M 8200.1000 ####[facility] [address] [place], [address] MRSA DNA JASON+probe Ql (Nose) Ordered By: Saumya Bobo on 01-03-2025 MRSA (PCR) [facility] Magnesiumon 01-03-2025 Magnesium [Mass/Vol] 1.9 mg/dL Normal 1.5-2.2 [facility] Comment on above: Performed By: #### L 100.0100, L501.2300, L500.4050, L501.5200, L501.4021 ####[facility] [address] [place], [address] Magnesium (Unsp spec) [Mass/ Vol]Ordered By: Armando Shin on 01-03-2025 Magnesium [Mass/Vol] 1.9 mg/dL 1.5-2.2 [facility] Magnesium measurement (mass/ volume)Ordered By: Armando Shin on 01-03-2025 Magnesium (Unsp spec) [Mass/Vol] 1.9 mg/dL 1.5-2.2 [facility] Measurement, pHOrdered By: Ronit Bobo on 01-03-2025 pH (Unsp spec) 7.50 [pH] High 7.35-7.45 [facility] Monocyte percentageOrdered B y: Armando Shin on 01-03-2025 Monocytes/100 WBC (Bld) 6.8 % 0-10 [facility] Nasal methicillin resistant Staphylococcus aureus (MRSA) DNA detection by PCROrdered By: Saumya Bobo on 01-03-2025 MRSA DNA JASON+probe Ql (Nose) [facility] Neutrophil percentageOrdered By: Armando Shin on 01-03-2025 Neutrophils/100 WBC (Bld) 84.2 % High 47-70 [facility] No Panel InformationOrdered By: Armando Shin on 01-03-2025 Troponin T High Sensitivity 17 ng/L <22 [facility] No Panel InformationOrdered By: Saumya Bobo on 01-03-2025 Blood Gas Sample Site L Radial [facility] Blood Gas Specimen Type ART [facility] Blood Gas Vent Mode Not entered [facility] Oxygen Delivery Device NRB [facility] Nucleated red blood cell per centageOrdered By: Armando Shin on 01-03-2025 Nucleated RBC/100 WBC (Bld) [Ratio] 0 % 0-5 [facility] Oxygen saturation measuremen tOrdered By: Saumya Bobo on 01-03-2025 Blood Gas Oxygen Saturation 96 % 95-99 [facility] Partial pressure of carbon d ioxide measurementOrdered By: Saumya Bobo on 01-03-2025 Arterial Blood Partial Pressure CO2 31.1 mmHg Low 35-45 [facility] Partial pressure of oxygen m easurementOrdered By: Saumya Bobo on 01-03-2025 Arterial Blood Partial Pressure O2 71 mmHG Low 75-100 [facility] Phosphoruson 01-03-2025 Phosphate [Mass/Vol] 2.9 mg/dL Normal 2.7-4.5 [facility] Comment on above: Performed By: #### L 100.0100, L501.2300, L500.4050, L501.5200, L501.4021 ####[facility] [address] [place], [address] Serum globulin measurementOr dered By: Armando Shin on 01-03-2025 Globulin (S) [Mass/Vol] 2.7 g/dL 2.2-4.2 [facility] Serum or plasma alanine ling otransferase (ALT) measurementOrdered By: Armando Shin on 01-03-2025 ALT [Catalytic activity/Vol] 29 U/L <47 [facility] Serum or plasma albumin amaya urement (mass/volume)Ordered By: Armando Shin on 01-03-2025 Albumin [Mass/Vol] 3.5 g/dL 3.4-4.8 [facility] Serum or plasma albumin/glob ulin mass ratioOrdered By: Armando Shin on 01-03-2025 Albumin/Globulin [Mass ratio] 1.3 {ratio} 0.9-2.4 [facility] Serum or plasma alkaline nnamdi sphatase measurementOrdered By: Armando Shin on 01-03-2025 ALP [Catalytic activity/Vol] 70 U/L 40-129 [facility] Serum phosphorus measurement Ordered By: Armando Shin on 01-03-2025 Phosphorus Level 2.9 mg/dL 2.7-4.5 [facility] Total carbon dioxide measure mentOrdered By: Saumya Bobo on 01-03-2025 Blood Gas Total CO2 25 mmol/L [facility] CO2 [Moles/Vol] 25 mmol/L [facility] Total proteinOrdered By: Jt Shin on 01-03-2025 Protein [Mass/Vol] 6.3 g/dL 5.9-8.4 [facility] Troponin T.cardiac High sens itivity method [Mass/Vol]Ordered By: Armando Shin on 01-03-2025 Troponin T High Sensitivity 4 Hour 21 ng/L <22 [facility] Troponin T High Sensitivity 2 Hour 18 ng/L <22 [facility] Troponin T.cardiac [Mass/vol ume] in Serum or Plasma by High sensitivity methodOrdered By: Armando Shin on 01-03-2025 Troponin T.cardiac High sensitivity method [Mass/Vol] 21 ng/L <22 [facility] Troponin T.cardiac High sensitivity method [Mass/Vol] 18 ng/L <22 [facility] pH (Unsp spec)Ordered By: Santi Bobo on 01-03-2025 Blood Gas pH 7.50 High 7.35-7.45 [facility] Bedside Glucoseon 01-02-2025 FINGERSTICK GLU 195 mg/dL High [address] Comment on above: Result Comment: LEONEL GEMENT OF PATIENT CARE PER NURSING PROTOCOL Performed By: #### L 501.080 ####[facility] [address] [place] [address] FINGERSTICK GLU 149 mg/dL High [address] Comment on above: Result Comment: LEONEL GEMENT OF PATIENT CARE PER NURSING PROTOCOL Performed By: #### L 501.080 ####[facility] [address] [facility] [address] FINGERSTICK GLU 162 mg/dL High [facility]106 [facility] Comment on above: Result Comment: LEONEL GEMENT OF PATIENT CARE PER NURSING PROTOCOL Performed By: #### L 501.080 ####[facility] [address] [facility] [address] FINGERSTICK GLU 123 mg/dL High [facility]106 [facility] Comment on above: Result Comment: LEONEL GEMENT OF PATIENT CARE PER NURSING PROTOCOL Performed By: #### L 501.080 ####[facility] [address] [place], [address] ANES POSTPROC EVALon 025 ANES POSTPROC EVAL HNO ID: [id number] Author: DEIDRA JONES MD Service: Anesthesiology Author Type: Physician Type: Anesthesia Postprocedure Evaluation Filed: 01/01/2025 10:49 Note Text: POST ANESTHESIA EVALUATION NOTE : 1960 Procedure Summary Date: 12/20/24 Room / Location: [facility] OR 08 / [facility] OR Anesthesia Start: 1327 Anesthesia Stop: 1712 Procedure: POSTERIOR SEGMENTAL INSTRUMENTATION FOLLOWING THORACIC FUSION 3-6 LEVELS (Spine Cervical) Diagnosis: Cervical spinal stenosis (Cervical spinal stenosis [M48.02]) Surgeons: Ponce Machado MD Responsible Provider: Deidra Jones MD Anesthesia Type: general ASA Status: 4 Anesthesia Type: general Airway Type: ETT Last Vitals Vitals Value Taken Time BP 105/64 12/24/24 1509 Temp 36.5 ?C (97.7 ?F) 12/24/24 1509 Pulse 65 12/24/24 1509 Resp 18 12/24/24 1509 SpO2 92 % 12/24/24 1509 Post Anesthesia Patient Status Patient Evaluation: PACU. PACU/ICU Patient Condition: stable. Neurological Status: aware and responsive. Pulmonary Status: breathing comfortably on supplemental oxygen Airway Control: returned to baseline unsupported. Cardiovascular Status: stable. Pain Management: clinically adequate Postoperative Hydration: acceptable. Intraoperative Events: no significant anesthesia events Post Operative Nausea/Vomiting Status: no significant post operative nausea or vomiting Recommendation: continue current plan of care. Anesthesia Observations No Documentation SIGNATURE: Deidra Jones MD PATIENT NAME: Frank Zimmer DATE: January 01, 2025 TIME: 10:48 AM CSN: [id number] Normal [facility] Bedside Glucoseon 01-01-2025 FINGERSTICK GLU 185 mg/dL High 74-106 [facility] Comment on above: Result Comment: LEONEL GEMENT OF PATIENT CARE PER NURSING PROTOCOL Performed By: #### L 501.080 ####[facility] [address] [place], [address] FINGERSTICK GLU 186 mg/dL High 74-106 [facility] Comment on above: Result Comment: LEONEL GEMENT OF PATIENT CARE PER NURSING PROTOCOL Performed By: #### L 501.080 ####[facility] [address] [place], [address] FINGERSTICK GLU 151 mg/dL High 74-106 [facility] Comment on above: Result Comment: LEONEL GEMENT OF PATIENT CARE PER NURSING PROTOCOL Performed By: #### L 501.080 ####[facility] [address] [place], [address] FINGERSTICK GLU 126 mg/dL High -[address] [place] [address] Comment on above: Result Comment: LEONEL GEMENT OF PATIENT CARE PER NURSING PROTOCOL Performed By: #### L 501.080 ####[facility] [address] [place], [address] Bedside Glucoseon 12-31-2024 FINGERSTICK GLU 322 mg/dL High -[address] [place] [address] Comment on above: Result Comment: LEONEL GEMENT OF PATIENT CARE PER NURSING PROTOCOL Performed By: #### L 501.080 ####[facility] [address] [place], [address] FINGERSTICK GLU 196 mg/dL High [address] [place] [address] Comment on above: Result Comment: LEONEL GEMENT OF PATIENT CARE PER NURSING PROTOCOL Performed By: #### L 501.080 ####[facility] [address] [place], [address] FINGERSTICK GLU 155 mg/dL High -106 [facility] Comment on above: Result Comment: LEONEL GEMENT OF PATIENT CARE PER NURSING PROTOCOL Performed By: #### L 501.080 ####[facility] [address] [place], [address] FINGERSTICK GLU 127 mg/dL High -106 [facility] Comment on above: Result Comment: LEONEL GEMENT OF PATIENT CARE PER NURSING PROTOCOL Performed By: #### L 501.080 ####[facility] [address] [place], [address] Bedside Glucoseon 12-30-2024 FINGERSTICK GLU 275 mg/dL High 74-106 [facility] Comment on above: Result Comment: LEONEL GEMENT OF PATIENT CARE PER NURSING PROTOCOL Performed By: #### L 501.080 ####[facility] [address] [place], [address] FINGERSTICK GLU 216 mg/dL High 74-106 [facility] Comment on above: Result Comment: LEONEL GEMENT OF PATIENT CARE PER NURSING PROTOCOL Performed By: #### L 501.080 ####[facility] [address] [place], [address] FINGERSTICK GLU 145 mg/dL High 74-106 [facility] Comment on above: Result Comment: LEONEL GEMENT OF PATIENT CARE PER NURSING PROTOCOL Performed By: #### L 501.080 ####[facility] [address] [place], [address] FINGERSTICK GLU 99 mg/dL Normal 74-106 [facility] Comment on above: Result Comment: LEONEL GEMENT OF PATIENT CARE PER NURSING PROTOCOL Performed By: #### L 501.080 ####[facility] [address] [place], [address] Bedside Glucoseon 12-29-2024 FINGERSTICK GLU 244 mg/dL High 74-106 [facility] Comment on above: Result Comment: LEONEL GEMENT OF PATIENT CARE PER NURSING PROTOCOL Performed By: #### L 501.080 ####[facility] [address] [place], [address] FINGERSTICK GLU 175 mg/dL High 74-106 [facility] Comment on above: Result Comment: LEONEL GEMENT OF PATIENT CARE PER NURSING PROTOCOL Performed By: #### L 501.080 ####[facility] [address] [place], [address] FINGERSTICK GLU 134 mg/dL High 74-106 [facility] Comment on above: Result Comment: LEONEL GEMENT OF PATIENT CARE PER NURSING PROTOCOL Performed By: #### L 501.080 ####[facility] [address] [place], [address] FINGERSTICK GLU 113 mg/dL High 74-106 [facility] Comment on above: Result Comment: LEONEL GEMENT OF PATIENT CARE PER NURSING PROTOCOL Performed By: #### L 501.080 ####[facility] [address] [place], [address] RESPIRATORY PANEL MOLECULARo n 12-29-2024 RP PANEL Normal [facility] Comment on above: Performed By: #### M 100.638 ####[facility] [address] [place], [address] Basic Metabolic Profile (BMP )on 12-28-2024 BUN/CRE 27.6 RATIO High 10-20 [facility] Comment on above: Performed By: #### L 500.2500, L100.0100, L503.7505 ####[facility] [address] [place], [address] Calcium [Mass/Vol] 9.0 mg/dL Normal 7.6-11.0 [facility] Comment on above: Performed By: #### L 500.2500, L100.0100, L503.7505 ####[facility] [address] [place], [address] Chloride [Moles/Vol] 100 mmol/L Normal 98-108 [facility] Comment on above: Performed By: #### L 500.2500, L100.0100, L503.7505 ####[facility] [address] [place], [address] CO2 [Moles/Vol] 20.5 mmol/L Low 21.0-32.0 [facility] Comment on above: Performed By: #### L 500.2500, L100.0100, L503.7505 ####[facility] [address] [place], [address] Creatinine [Mass/Vol] 0.68 mg/dL Low 0.70-1.20 [facility] Comment on above: Performed By: #### L 500.2500, L100.0100, L503.7505 ####[facility] [address] [place], [address] ECRCL 116.02 ml/min Normal 50-250 [facility] Comment on above: Performed By: #### L 500.2500, L100.0100, L503.7505 ####[facility] [address] [place], [address] GAP 15 Normal 5-15 [facility] Comment on above: Performed By: #### L 500.2500, L100.0100, L503.7505 ####[facility] [address] [place], [address] GFR/1.73 sq M.predicted among non-blacks MDRD (S/P/Bld) [Vol rate/Area] 103 mL/min/{1.73_m2} Normal >60 [facility] Comment on above: Result Comment: mL/m in/1.73m2 CKD-EPI Creatinine Equation (2020) Performed By: #### L 500.2500, L100.0100, L503.7505 ####[facility] [address] [place], [address] Glucose [Mass/Vol] 115 mg/dL High 70-99 [facility] Comment on above: Performed By: #### L 500.2500, L100.0100, L503.7505 ####[facility] [address] [place], [address] Potassium [Moles/Vol] 4.6 mmol/L Normal 3.3-5.1 [facility] Comment on above: Performed By: #### L 500.2500, L100.0100, L503.7505 ####[facility] [address] [place], [address] Sodium [Moles/Vol] 136 mmol/L Normal 133-145 [facility] Comment on above: Performed By: #### L 500.2500, L100.0100, L503.7505 ####[facility] [address] [place], [address] Urea nitrogen [Mass/Vol] 19 mg/dL Normal 4-19 [facility] Comment on above: Performed By: #### L 500.2500, L100.0100, L503.7505 ####[facility] [address] [place], [address] Bedside Glucoseon 12-28-2024 FINGERSTICK GLU 231 mg/dL High 74-106 [facility] Comment on above: Result Comment: LEONEL GEMENT OF PATIENT CARE PER NURSING PROTOCOL Performed By: #### L 501.080 ####[facility] [address] [place], [address] FINGERSTICK GLU 130 mg/dL High 74-106 [facility] Comment on above: Result Comment: LEONEL GEMENT OF PATIENT CARE PER NURSING PROTOCOL Performed By: #### L 501.080 ####[facility] [address] [place], [address] FINGERSTICK GLU 110 mg/dL High 74-106 [facility] Comment on above: Result Comment: LEONEL GEMENT OF PATIENT CARE PER NURSING PROTOCOL Performed By: #### L 501.080 ####[facility] [address] [place], [address] FINGERSTICK GLU 103 mg/dL Normal 74-106 [facility] Comment on above: Result Comment: LEONEL GEMENT OF PATIENT CARE PER NURSING PROTOCOL Performed By: #### L 501.080 ####[facility] [address] [place], [address] [facility] BENJI TEST Positive Normal [facility] Comment on above: Performed By: #### L 9000.0800 ####[facility] [address] [place], [address] Base excess Calc (Bld) [Moles/Vol] -1 mmol/L Normal -2 to +2 [facility] Comment on above: Performed By: #### L 9000.0800 ####[facility] [address] [place], [address] Blood Gas Type ART Normal [facility] Comment on above: Performed By: #### L 9000.0800 ####[facility] [address] [place], [address] CO2 [Moles/Vol] 24 mmol/L Normal [facility] Comment on above: Performed By: #### L 9000.0800 ####[facility] [address] [place], [address] FI02 4.0 Normal [facility] Comment on above: Performed By: #### L 9000.0800 ####[facility] [address] [place], [address] HCO3 (Bld) [Moles/Vol] 23.2 mmol/L Normal 22-26 [facility] Comment on above: Performed By: #### L 9000.0800 ####[facility] [address] [place], [address] Mode Not entered Normal [facility] Comment on above: Performed By: #### L 9000.0800 ####[facility] [address] [place], [address] O2 Delivery Dev Cannula Normal [facility] Comment on above: Performed By: #### L 9000.0800 ####[facility] [address] [place], [address] pCO2 34.8 mmHg Low 35-45 [facility] Comment on above: Performed By: #### L 9000.0800 ####[facility] [address] [place], [address] pH (Bld) 7.43 [pH] Normal 7.35-7.45 [facility] Comment on above: Performed By: #### L 9000.0800 ####[facility] [address] [place], [address] PO2 50 mmHG Low 75-100 [facility] Comment on above: Performed By: #### L 9000.0800 ####[facility] [address] [place], [address] SITE R Radial Normal [facility] Comment on above: Performed By: #### L 9000.0800 ####[facility] [address] [place], [address] SO2 86 Low 95-99 [facility] Comment on above: Performed By: #### L 9000.0800 ####[facility] [address] [place], [address] CBC W/Diff, Automatedon 03-0 Absolute Lymph 0.88 X10 3/uL Normal 0.83-4.51 [facility] Comment on above: Performed By: #### L 500.2500, L100.0100, L503.7505 ####[facility] [address] [place], [address] Absolute Neut 6.6 X10 3/uL Normal 2.0-7.7 [facility] Comment on above: Performed By: #### L 500.2500, L100.0100, L503.7505 ####[facility] [address] [place], [address] Basophils/100 WBC (Bld) 0.5 % Normal 0-1 [facility] Comment on above: Performed By: #### L 500.2500, L100.0100, L503.7505 ####[facility] [address] [place], [address] Eosinophils/100 WBC (Bld) 1.7 % Normal 0-5 [facility] Comment on above: Performed By: #### L 500.2500, L100.0100, L503.7505 ####[facility] [address] [place], [address] Erythrocyte distribution width (RBC) [Ratio] 14.0 % Normal 11.6-14.6 [facility] Comment on above: Performed By: #### L 500.2500, L100.0100, L503.7505 ####[facility] [address] [place], [address] Hematocrit (Bld) [Volume fraction] 35.9 % Low 40-54 [facility] Comment on above: Performed By: #### L 500.2500, L100.0100, L503.7505 ####[facility] [address] [place], [address] Hemoglobin (Bld) [Mass/Vol] 12.2 g/dL Low 13.0-16.5 [facility] Comment on above: Performed By: #### L 500.2500, L100.0100, L503.7505 ####[facility] [address] [place], [address] IG% 0.500 Normal 0.0-0.9 [facility] Comment on above: Result Comment: IG% - Immature Granulocytes (promyelocytes, myelocytes andmetamyelocytes) > 1% indicates that a LEFT SHIFT is Present. Performed By: #### L 500.2500, L100.0100, L503.7505 ####[facility] [address] [place], [address] Lymphocytes/100 WBC (Bld) 10.2 % Low 19-41 [facility] Comment on above: Performed By: #### L 500.2500, L100.0100, L503.7505 ####[facility] [address] [place], [address] MCH (RBC) [Entitic mass] 31.9 pg Normal 27.0-32.0 [facility] Comment on above: Performed By: #### L 500.2500, L100.0100, L503.7505 ####[facility] [address] [place], [address] MCHC (RBC) [Mass/Vol] 34.0 g/dL Normal 32-36 [facility] Comment on above: Performed By: #### L 500.2500, L100.0100, L503.7505 ####[facility] [address] [place], [address] MCV (RBC) [Entitic vol] 94.0 fL Normal 80-94 [facility] Comment on above: Performed By: #### L 500.2500, L100.0100, L503.7505 ####[facility] [address] [place], [address] Monocytes/100 WBC (Bld) 10.2 % High 0-10 [facility] Comment on above: Performed By: #### L 500.2500, L100.0100, L503.7505 ####[facility] [address] [place], [address] Neutrophils/100 WBC (Bld) 76.9 % High 47-70 [facility] Comment on above: Performed By: #### L 500.2500, L100.0100, L503.7505 ####[facility] [address] [place], [address] Nucleated RBC (Bld) [#/Vol] 0 10*3/uL Normal 0-5 [facility] Comment on above: Performed By: #### L 500.2500, L100.0100, L503.7505 ####[facility] [address] [place], [address] Platelet mean volume (Bld) [Entitic vol] 10.1 fL Normal 6.2-12.0 [facility] Comment on above: Performed By: #### L 500.2500, L100.0100, L503.7505 ####[facility] [address] [place], [address] Platelets (Bld) [#/Vol] 216 10*3/uL Normal 150-450 [facility] Comment on above: Performed By: #### L 500.2500, L100.0100, L503.7505 ####[facility] [address] [place], [address] RBC (Bld) [#/Vol] 3.82 10*6/uL Low 4.6-6.[address] [facility] Comment on above: Performed By: #### L 500.2500, L100.0100, L503.7505 ####[facility] [address] [place], [address] RDW SD 48.0 fl High 35.1-43.9 [facility] Comment on above: Performed By: #### L 500.2500, L100.0100, L503.7505 ####[facility] [address] [place], [address] WBC (Bld) [#/Vol] 8.6 10*3/uL Normal 4.4-11.0 [facility] Comment on above: Performed By: #### L 500.2500, L100.0100, L503.7505 ####[facility] [address] [place], [address] CTA Chest W/WO Contraston CTA Chest W/WO Contrast Normal [facility] Chest PA and Lateralon 12-28 Chest PA and Lateral Normal [facility] L499.0042on 12-28-2024 Trop T High Sen 17 ng/L Normal <=22 [facility] Comment on above: Performed By: #### L 499.0042 ####[facility] [address] [place], [address] L499.0043on 12-28-2024 Trop T High Sen 17 ng/L Normal <=22 [facility] Comment on above: Performed By: #### L 499.0043 ####[facility] [address] [place], [address] L501.4021on 12-28-2024 Trop T High Sen 18 ng/L Normal <=22 [facility] Comment on above: Performed By: #### L 501.4021 ####[facility] [address] [place], [address] L503.7505on 12-28-2024 Natriuretic peptide B (Bld) [Mass/Vol] 521 pg/mL Normal <=900 [facility] Comment on above: Result Comment: Hear t Failure Unlikely: < 300 pg/mLHeart Failure Likely< 50 Years: > 450 pg/mL50-75 Years: > 900 pg/mL>75 Years: > 1800 pg/mL Performed By: #### L 500.2500, L100.0100, L503.7505 ####[facility] [address] [place], [address] Laboratory - Chemistry and C hemistry - challengeOrdered By: Saumya Bobo on 12-28-2024 Natriuretic peptide B (Bld) [Mass/Vol] 521 pg/mL <900 [facility] Comment on above: Heart Failure Unlike ly: < 300 pg/mLHeart Failure Likely< 50 Years: > 450 pg/mL50-75 Years: > 900 pg/mL>75 Years: > 1800 pg/mL M100.019on 12-28-2024 M100.019 Negative Normal [facility] Comment on above: Performed By: #### M 100.019 ####[facility] [address] [place], [address] Respiratory pathogens DNA an d RNA panel JASON+probe (Resp)Ordered By: Saumya Jeramie on 12-28-2024 Respiratory Panel (PCR) [facility] Respiratory pathogens detect ion panel by molecular detection methodOrdered By: Saumya Bobo on 12-28-2024 Respiratory pathogens DNA and RNA panel JASON+probe (Resp) [facility] [id number] By: Saumya monterroso on 12-28-2024 SARS-CoV-2 (COVID-19) RNA JASON+probe Ql (Unsp spec) [facility] Bedside Glucoseon 12-27-2024 FINGERSTICK GLU 106 mg/dL Normal 74-106 [facility] Comment on above: Result Comment: LEONEL GEMENT OF PATIENT CARE PER NURSING PROTOCOL Performed By: #### L 501.080 ####[facility] [address] [place], [address] FINGERSTICK GLU 128 mg/dL High 74-106 [facility] Comment on above: Result Comment: LEONEL GEMENT OF PATIENT CARE PER NURSING PROTOCOL Performed By: #### L 501.080 ####[facility] [address] [place], [address] FINGERSTICK GLU 116 mg/dL High 74-106 [facility] Comment on above: Result Comment: LEONEL GEMENT OF PATIENT CARE PER NURSING PROTOCOL Performed By: #### L 501.080 ####[facility] [address] [place], [address] FINGERSTICK GLU 100 mg/dL Normal 74-106 [facility] Comment on above: Result Comment: LEONEL GEMENT OF PATIENT CARE PER NURSING PROTOCOL Performed By: #### L 501.080 ####[facility] [address] [place], [address] Glucose measurement at [facility] deOrdered By: Sauyma Bobo on 12-27-2024 Bedside Glucose ([place] Panel) 116 mg/dL High 74-106 [facility] Comment on above: MANAGEMENT OF PATIEN T CARE PER NURSING PROTOCOL Bedside Glucoseon 12-26-2024 FINGERSTICK GLU 110 mg/dL High 74-106 [facility] Comment on above: Result Comment: LEONEL GEMENT OF PATIENT CARE PER NURSING PROTOCOL Performed By: #### L 501.080 ####[facility] [address] [place], [address] FINGERSTICK GLU 166 mg/dL High [address] [place] [address] Comment on above: Result Comment: LEONEL GEMENT OF PATIENT CARE PER NURSING PROTOCOL Performed By: #### L 501.080 ####[facility] [address] [place], [address] FINGERSTICK GLU 115 mg/dL High [address] [place] [address] Comment on above: Result Comment: LEONEL GEMENT OF PATIENT CARE PER NURSING PROTOCOL Performed By: #### L 501.080 ####[facility] [address] [place], [address] FINGERSTICK GLU 115 mg/dL [address] Comment on above: Result Comment: LEONEL GEMENT OF PATIENT CARE PER NURSING PROTOCOL Performed By: #### L 501.080 ####[facility] [address] [place], [address] Anion gap in Serum or Plasma Ordered By: Saumya Bobo on 12-25-2024 Anion gap [Moles/Vol] 10 mmol/L 5-15 [facility] BUN/creatinine ratioOrdered By: Saumya Bobo on 12-25-2024 Urea nitrogen/Creatinine [Mass ratio] 29.8 mg/mg High 10-20 [facility] Bedside Glucoseon 03-04-2025 FINGERSTICK GLU 187 mg/dL High 74-106 [facility] Comment on above: Result Comment: LEONEL GEMENT OF PATIENT CARE PER NURSING PROTOCOL Performed By: #### L 501.080 ####[facility] [address] [place], [address] FINGERSTICK GLU 150 mg/dL High 74-106 [facility] Comment on above: Result Comment: LEONEL GEMENT OF PATIENT CARE PER NURSING PROTOCOL Performed By: #### L 501.080 ####[facility] [address] [place], [address] FINGERSTICK GLU 119 mg/dL High 74-106 [facility] Comment on above: Result Comment: LEONEL GEMENT OF PATIENT CARE PER NURSING PROTOCOL Performed By: #### L 501.080 ####[facility] [address] [place], [address] FINGERSTICK GLU 158 mg/dL High 74-106 [facility] Comment on above: Result Comment: LEONEL GEMENT OF PATIENT CARE PER NURSING PROTOCOL Performed By: #### L 501.080 ####[facility] [address] [place], [address] Bilirubin, totalOrdered By: Saumya Bobo on 12-25-2024 Bilirubin [Mass/Vol] 0.37 mg/dL 0.00-1.30 [facility] CBC-Complete Blood Cnt No Josephine ffon 12-25-2024 Erythrocyte distribution width (RBC) [Ratio] 14.5 % Normal 11.6-14.6 [facility] Comment on above: Performed By: #### L 500.4050, L501.5200, L501.2300, L100.0500 ####[facility] [address] [place], [address] Hematocrit (Bld) [Volume fraction] 35.9 % Low 40-54 [facility] Comment on above: Performed By: #### L 500.4050, L501.5200, L501.2300, L100.0500 ####[facility] [address] [place], [address] Hemoglobin (Bld) [Mass/Vol] 11.9 g/dL Low 13.0-16.5 [facility] Comment on above: Performed By: #### L 500.4050, L501.5200, L501.2300, L100.0500 ####[facility] [address] [place], [address] MCH (RBC) [Entitic mass] 32.2 pg High 27.0-32.0 [facility] Comment on above: Performed By: #### L 500.4050, L501.5200, L501.2300, L100.0500 ####[facility] [address] [place], [address] MCHC (RBC) [Mass/Vol] 33.1 g/dL Normal 32-36 [facility] Comment on above: Performed By: #### L 500.4050, L501.5200, L501.2300, L100.0500 ####[facility] [address] [place], [address] MCV (RBC) [Entitic vol] 97.3 fL High 80-94 [facility] Comment on above: Performed By: #### L 500.4050, L501.5200, L501.2300, L100.0500 ####[facility] [address] [place], [address] Platelet mean volume (Bld) [Entitic vol] 11.2 fL Normal 6.2-12.0 [facility] Comment on above: Performed By: #### L 500.4050, L501.5200, L501.2300, L100.0500 ####[facility] [address] [place], [address] Platelets (Bld) [#/Vol] 150 10*3/uL Normal 150-450 [facility] Comment on above: Performed By: #### L 500.4050, L501.5200, L501.2300, L100.0500 ####[facility] [address] [place], [address] RBC (Bld) [#/Vol] 3.69 10*6/uL Low 4.6-6.[address] [facility] Comment on above: Performed By: #### L 500.4050, L501.5200, L501.2300, L100.0500 ####[facility] [address] [place], [address] RDW SD 51.7 fl High 35.1-43.9 [facility] Comment on above: Performed By: #### L 500.4050, L501.5200, L501.2300, L100.0500 ####[facility] [address] [place], [address] WBC (Bld) [#/Vol] 6.3 10*3/uL Normal 4.4-11.0 [facility] Comment on above: Performed By: #### L 500.4050, L501.5200, L501.2300, L100.0500 ####[facility] [address] [place], [address] Carbon dioxide, total [Moles /volume] in Central venous bloodOrdered By: Saumya Bobo on 12-25-2024 CO2 [Moles/Vol] 27.1 mmol/L 21.0-32.0 [facility] Chloride assayOrdered By: Santi Bobo on 12-25-2024 Chloride [Moles/Vol] 100 mmol/L 98-108 [facility] Comprehensive Metabolic Prof ilon 12-25-2024 Albumin [Mass/Vol] 3.6 g/dL Normal 3.4-4.8 [facility] Comment on above: Performed By: #### L 500.4050, L501.5200, L501.2300, L100.0500 ####[facility] [address] [place], [address] Albumin/Globulin [Mass ratio] 1.6 {ratio} Normal 0.9-2.4 [facility] Comment on above: Performed By: #### L 500.4050, L501.5200, L501.2300, L100.0500 ####[facility] [address] [place], [address] ALK PHOS 66 U/L Normal 40-129 [facility] Comment on above: Performed By: #### L 500.4050, L501.5200, L501.2300, L100.0500 ####[facility] [address] [place], [address] ALT [Catalytic activity/Vol] 25 U/L Normal <=46 [facility] Comment on above: Performed By: #### L 500.4050, L501.5200, L501.2300, L100.0500 ####[facility] [address] [place], [address] AST [Catalytic activity/Vol] 25 U/L Normal <=37 [facility] Comment on above: Performed By: #### L 500.4050, L501.5200, L501.2300, L100.0500 ####[facility] [address] [place], [address] Bilirubin [Mass/Vol] 0.37 mg/dL Normal 0.00-1.30 [facility] Comment on above: Performed By: #### L 500.4050, L501.5200, L501.2300, L100.0500 ####[facility] [address] [place], [address] BUN/CRE 29.8 RATIO High 10-20 [facility] Comment on above: Performed By: #### L 500.4050, L501.5200, L501.2300, L100.0500 ####[facility] [address] [place], [address] Calcium [Mass/Vol] 8.8 mg/dL Normal 7.6-11.0 [facility] Comment on above: Performed By: #### L 500.4050, L501.5200, L501.2300, L100.0500 ####[facility] [address] [place], [address] Chloride [Moles/Vol] 100 mmol/L Normal 98-108 [facility] Comment on above: Performed By: #### L 500.4050, L501.5200, L501.2300, L100.0500 ####[facility] [address] [place], [address] CO2 [Moles/Vol] 27.1 mmol/L Normal 21.0-32.0 [facility] Comment on above: Performed By: #### L 500.4050, L501.5200, L501.2300, L100.0500 ####[facility] [address] [place], [address] Creatinine [Mass/Vol] 0.59 mg/dL Low 0.70-1.20 [facility] Comment on above: Performed By: #### L 500.4050, L501.5200, L501.2300, L100.0500 ####[facility] [address] [place], [address] ECRCL 116.02 ml/min Normal 50-250 [facility] Comment on above: Performed By: #### L 500.4050, L501.5200, L501.2300, L100.0500 ####[facility] [address] [place], [address] GAP 10 Normal 5-15 [facility] Comment on above: Performed By: #### L 500.4050, L501.5200, L501.2300, L100.0500 ####[facility] [address] [place], [address] GFR/1.73 sq M.predicted among non-blacks MDRD (S/P/Bld) [Vol rate/Area] 108 mL/min/{1.73_m2} Normal >60 [facility] Comment on above: Result Comment: mL/m in/1.73m2 CKD-EPI Creatinine Equation (2020) Performed By: #### L 500.4050, L501.5200, L501.2300, L100.0500 ####[facility] [address] [place], [address] Globulin (S) [Mass/Vol] 2.2 g/dL Normal 2.2-4.2 [facility] Comment on above: Performed By: #### L 500.4050, L501.5200, L501.2300, L100.0500 ####[facility] [address] [place], [address] Glucose [Mass/Vol] 114 mg/dL High 70-99 [facility] Comment on above: Performed By: #### L 500.4050, L501.5200, L501.2300, L100.0500 ####[facility] [address] [place], [address] Potassium [Moles/Vol] 4.6 mmol/L Normal 3.3-5.1 [facility] Comment on above: Performed By: #### L 500.4050, L501.5200, L501.2300, L100.0500 ####[facility] [address] [place], [address] Sodium [Moles/Vol] 137 mmol/L Normal 133-145 [facility] Comment on above: Performed By: #### L 500.4050, L501.5200, L501.2300, L100.0500 ####[facility] [address] [place], [address] T PROT 5.8 g/dL Low 5.9-8.4 [facility] Comment on above: Performed By: #### L 500.4050, L501.5200, L501.2300, L100.0500 ####[facility] [address] [place], [address] Urea nitrogen [Mass/Vol] 18 mg/dL Normal 4-19 [facility] Comment on above: Performed By: #### L 500.4050, L501.5200, L501.2300, L100.0500 ####[facility] [address] [place], [address] Erythrocyte distribution wid th ratioOrdered By: Saumya Bobo on 12-25-2024 Erythrocyte distribution width (RBC) [Ratio] 14.5 % 11.6-14.6 [facility] Erythrocyte distribution wid th standard deviationOrdered By: Saumya Bobo on 12-25-2024 Erythrocyte distribution width (RBC) [Entitic vol] 51.7 fL High 35.1-43.9 [facility] Estimation of creatinine javy aranceOrdered By: Saumya Bobo on 12-25-2024 Estimated Creatinine Clearance Calc 116.02 ml/min 50-250 [facility] GFR/1.73 sq M.predicted arnel g non-blacks MDRD (S/P/Bld) [Vol rate/Area]Ordered By: Saumya Bobo on 12-25-2024 Estimated GFR (MDRD) Non-Af Amer 108 >60 [facility] Comment on above: mL/min/1.73m2 CKD-EP I Creatinine Equation (2020) Hematocrit Auto (Bld) [Volum e fraction]Ordered By: Saumya Bobo on 12-25-2024 Hematocrit (Bld) [Volume fraction] 35.9 % Low 40-54 [facility] Hemoglobin measurementOrdere d By: Saumya Bobo on 12-25-2024 Hemoglobin (Bld) [Mass/Vol] 11.9 g/dL Low 13.0-16.5 [facility] Laboratory - Chemistry and C hemistry - challengeOrdered By: Saumya Bobo on 12-25-2024 AST [Catalytic activity/Vol] 25 U/L <38 [facility] MCV (mean corpuscular volume ) determinationOrdered By: Saumya Bobo on 12-25-2024 MCV (RBC) [Entitic vol] 97.3 fL High 80-94 [facility] Magnesiumon 12-25-2024 Magnesium [Mass/Vol] 2.1 mg/dL Normal 1.5-2.2 [facility] Comment on above: Performed By: #### L 500.4050, L501.5200, L501.2300, L100.0500 ####[facility] [address] [place], [place], [phone] Magnesium (Unsp spec) [Mass/ Vol]Ordered By: Saumya Bobo on 12-25-2024 Magnesium [Mass/Vol] 2.1 mg/dL 1.5-2.2 [facility] Mean corpuscular hemoglobin (MCH) determinationOrdered By: Saumya Bobo on 12-25-2024 MCH (RBC) [Entitic mass] 32.2 pg High 27.0-32.0 [facility] Mean corpuscular hemoglobin concentration (MCHC) determinationOrdered By: Saumya Bobo on 12-25-2024 MCHC (RBC) [Mass/Vol] 33.1 g/dL 32-36 [facility] Mean platelet volume determi nationOrdered By: Saumya Bobo on 12-25-2024 Platelet mean volume (Bld) [Entitic vol] 11.2 fL 6.2-12.0 [facility] Phosphoruson 12-25-2024 Phosphate [Mass/Vol] 3.0 mg/dL Normal 2.7-4.5 [facility] Comment on above: Performed By: #### L 500.4050, L501.5200, L501.2300, L100.0500 ####[facility] [address] [place], [place], [address] Platelet countOrdered By: Santi Bobo on 12-25-2024 Platelets (Bld) [#/Vol] 150 10*3/uL 150-450 [facility] Potassium (Unsp spec) [Mass/ Vol]Ordered By: Saumya Bobo on 12-25-2024 Potassium [Moles/Vol] 4.6 mmol/L 3.3-5.1 [facility] RBC Auto (Bld) [#/Vol]Ordere d By: Saumya Bobo on 12-25-2024 RBC (Bld) [#/Vol] 3.69 10*6/uL Low 4.6-6.[address] [facility] Serum creatinine measurement (mass/volume)Ordered By: Saumya Bobo on 12-25-2024 Creatinine [Mass/Vol] 0.59 mg/dL Low 0.70-1.20 [facility] Serum globulin measurementOr dered By: Saumya Bobo on 12-25-2024 Globulin (S) [Mass/Vol] 2.2 g/dL 2.2-4.2 [facility] Serum glucose measurement (m ass/volume)Ordered By: Saumya Bobo on 12-25-2024 Glucose [Mass/Vol] 114 mg/dL High 70-99 [facility] Serum or plasma alanine ling otransferase (ALT) measurementOrdered By: Saumya Bobo on 12-25-2024 ALT [Catalytic activity/Vol] 25 U/L <47 [facility] Serum or plasma albumin amaya urement (mass/volume)Ordered By: Saumya Bobo on 12-25-2024 Albumin [Mass/Vol] 3.6 g/dL 3.4-4.8 [facility] Serum or plasma albumin/glob ulin mass ratioOrdered By: Saumya Bobo on 12-25-2024 Albumin/Globulin [Mass ratio] 1.6 {ratio} 0.9-2.4 [facility] Serum or plasma alkaline nnamdi sphatase measurementOrdered By: Saumya Bobo on 12-25-2024 ALP [Catalytic activity/Vol] 66 U/L 40-129 [facility] Serum or plasma calcium amaya urement (mass/volume)Ordered By: Saumya Bobo on 12-25-2024 Calcium [Mass/Vol] 8.8 mg/dL 7.6-11.0 [facility] Serum or plasma urea nitroge n measurement (mass/volume)Ordered By: Saumya Jeramie on 12-25-2024 Urea nitrogen [Mass/Vol] 18 mg/dL 4-19 [facility] Serum phosphorus measurement Ordered By: Saumya Jeramie on 12-25-2024 Phosphorus Level 3.0 mg/dL 2.7-4.5 [facility] Sodium levelOrdered By: Saumya Jeramie on 12-25-2024 Sodium [Moles/Vol] 137 mmol/L 133-145 [facility] Total proteinOrdered By: Patience huffman Jeramie on 12-25-2024 Protein [Mass/Vol] 5.8 g/dL Low 5.9-8.4 [facility] White blood cell (WBC) count Ordered By: Saumya Jeramie on 12-25-2024 WBC (Bld) [#/Vol] 6.3 10*3/uL 4.4-11.0 [facility] Bacteria LM.HPF (Urine sed) [#/Area]Ordered By: Saumya Jeramie on 12-24-2024 Urine Bacteria RARE /hpf None Seen [facility] Basic metabolic 2000 panelon 12-24-2024 Anion gap [Moles/Vol] 7 mmol/L Low 8-15 [facility] Comment on above: Order Comment: Speci men Type: BLOOD SPECIMENOrdering Facility: [facility] Address: [address] [place] [address] Performed By: #### 2 777-1, 75850-0 ####[facility]ORYCLIA [id number] [place] [address] [place] Calcium [Mass/Vol] 8.4 mg/dL Low 8.5-10.2 [facility] Comment on above: Order Comment: Speci men Type: BLOOD SPECIMENOrdering Facility: [facility] Address: [address] [place] [address] Performed By: #### 2 777-1, 67064-1 ####[facility]ORYCLIA [id number] [place] [address] [place] Chloride [Moles/Vol] 103 mmol/L Normal 98-107 [facility] Comment on above: Order Comment: Speci men Type: BLOOD SPECIMENOrdering Facility: [facility] Address: [address] [place] [address] Performed By: #### 2 777-1, 97024-4 ####[facility]ORYCLIA [id number] [address] [facility] CO2 [Moles/Vol] 27 mmol/L Normal 22-30 [facility] Comment on above: Order Comment: Speci men Type: BLOOD SPECIMENOrdering Facility: [facility] Address: [address] [place] [address] Performed By: #### 2 777-1, 71079-9 ####[facility]ORYCLIA [id number] [address] [place] [facility] Creatinine [Mass/Vol] 0.61 mg/dL Low 0.73-1.22 [facility] Comment on above: Order Comment: Speci men Type: BLOOD SPECIMENOrdering Facility: [facility] Address: [address] [place] [address] Performed By: #### 2 777-1, 46015-3 ####[facility]ORYCLIA [id number] [address] Creatinine and Glomerular filtration rate.predicted panel (S/P/Bld) 107 mL/min/1.73m??? Normal >=60 [facility] Comment on above: Order Comment: Speci men Type: BLOOD SPECIMENOrdering Facility: [facility] Address: [address] [place] [address] Result Comment: Gege mated Glomerular Filtration Rate (eGFR) is calculated using the 2020 CKD-EPI creatinine equation. This equation utilizes serum creatinine, sex, and age as parameters. The creatinine assay has traceable calibration to isotope dilution-mass spectrometry. Refer to KDIGO guidelines for clinical interpretation. In patients with unstable renal function, e.g. those with acute kidney injury, the eGFR may not accurately reflect actual GFR. Performed By: #### 2 777-1, 47973-6 ####[facility]ATORYCLIA [id number] [place] [address] [place] Glucose [Mass/Vol] 113 mg/dL High 74-99 [facility] Comment on above: Order Comment: Porter stearns Type: BLOOD SPECIMENOrdering Facility: [facility] Address: [address] [place], [place] [address] Result Comment: The [place] [employer] Association (ADA) provides guidance for cutoff values for fasting glucose and random glucose. The ADA defines fasting as no caloric intake for at least 8 hours. Fasting plasma glucose results between 100 to 125 mg/dL indicate increased risk for diabetes (prediabetes). Fasting plasma glucose results greater than or equal to 126 mg/dL meet the criteria for diagnosis of diabetes. In the absence of unequivocal hyperglycemia, results should be confirmed by repeat testing. In a patient with classic symptoms of hyperglycemia or hyperglycemic crisis, random plasma glucose results greater than or equal to 200 mg/dL meet the criteria for diagnosis of diabetes. Reference: Standards of Medical Care in Diabetes 2016, [place] [employer]. Diabetes Care. 2016.39(Suppl 1). Performed By: #### 2 777-1, 62807-0 ####[facility]ORYCLIA [id number] [place] [address] [place] Potassium [Moles/Vol] 4.1 mmol/L Normal 3.7-5.1 [facility] Comment on above: Order Comment: Porter stearns Type: BLOOD SPECIMENOrdering Facility: [facility] Address: [address] [place] [address] Performed By: #### 2 777-1, 40505-0 ####[facility]ATORYCLIA [id number] [place] [address] [place] Sodium [Moles/Vol] 137 mmol/L Normal 136-144 [facility] Comment on above: Order Comment: Porter stearns Type: BLOOD SPECIMENOrdering Facility: [facility] Address: [address] [place], [place] [address] Performed By: #### 2 777-1, 66317-9 ####[facility]ATORYCLIA [id number] [place] [address] [place] Urea nitrogen [Mass/Vol] 18 mg/dL Normal 9-24 [facility] Comment on above: Order Comment: Speci men Type: BLOOD SPECIMENOrdering Facility: [facility] Address: [address] [place] [address] Performed By: #### 2 777-1, 56064-0 ####[facility]ATORYCLIA [id number] [place] [address] [place] Bedside Glucoseon 12-24-2024 FINGERSTICK GLU 131 mg/dL High 74-106 [facility] Comment on above: Result Comment: LEONEL GEMENT OF PATIENT CARE PER NURSING PROTOCOL Performed By: #### L 501.080 ####[facility] [address] [place], [place], [address] FINGERSTICK GLU 114 mg/dL High 74-106 [facility] Comment on above: Result Comment: LEONEL GEMENT OF PATIENT CARE PER NURSING PROTOCOL Performed By: #### L 501.080 ####[facility] [address] [place], [place], [address] Bilirubin Test strip Ql (U)O rdered By: Saumya Lovelacesamantha on 12-24-2024 Bilirubin Ql (U) Negative Negative [facility] CBC panel Auto (Bld)on 12-24 Erythrocyte distribution width (RBC) [Ratio] 14.6 % Normal 11.5-15.0 [facility] Comment on above: Order Comment: Speci men Type: BLOOD SPECIMENOrdering Facility: [facility] Address: [facility] [place] [address] Performed By: #### 5 8410-2 ####[facility]ATORYCLIA [id number] [address] [place] Hematocrit (Bld) [Volume fraction] 37.8 % Low 39.0-51.0 [facility] Comment on above: Order Comment: Speci men Type: BLOOD SPECIMENOrdering Facility: [facility] Address: [address] [place] [address] Performed By: #### 5 8410-2 ####[facility]ATORYCLIA [id number] [address] [place] Hemoglobin (Bld) [Mass/Vol] 12.4 g/dL Low 13.0-17.0 [facility] Comment on above: Order Comment: Speci men Type: BLOOD SPECIMENOrdering Facility: [facility] Address: [address] [place] [address] Performed By: #### 5 8410-2 ####[facility]ATORYCLIA [id number] [address] [facility] MCH (RBC) [Entitic mass] 31.7 pg Normal 26.0-34.0 [facility] Comment on above: Order Comment: Speci men Type: BLOOD SPECIMENOrdering Facility: [facility] Address: [address] [place] [address] Performed By: #### 5 8410-2 ####[facility]ATORYCLIA [id number] [address] MCHC (RBC) [Mass/Vol] 32.8 g/dL Normal 30.5-36.0 [facility] Comment on above: Order Comment: Speci men Type: BLOOD SPECIMENOrdering Facility: [facility] Address: [address] [place] [address] Performed By: #### 5 8410-2 ####[facility]ATORYCLIA [id number] [address] MCV (RBC) [Entitic vol] 96.7 fL Normal 80.0-100.0 [facility] Comment on above: Order Comment: Speci men Type: BLOOD SPECIMENOrdering Facility: [facility] Address: [address] [place] [address] Performed By: #### 5 8410-2 ####[facility]ORATORYCLIA [id number] [address] Nucleated RBC (Bld) [#/Vol] 10*3/uL Normal <0.01 [facility] Comment on above: Order Comment: Speci men Type: BLOOD SPECIMENOrdering Facility: [facility] Address: [address] [place] [address] Performed By: #### 5 8410-2 ####[facility]ORATORYCLIA [id number] [address] [place] Platelet mean volume (Bld) [Entitic vol] 11.1 fL Normal 9.0-12.7 [facility] Comment on above: Order Comment: Speci men Type: BLOOD SPECIMENOrdering Facility: [facility] Address: [address] [place] [address] Performed By: #### 5 8410-2 ####[facility]ORATORYCLIA [id number] [address] [place] Platelets (Bld) [#/Vol] 124 10*3/uL Low 150-400 [facility] Comment on above: Order Comment: Speci men Type: BLOOD SPECIMENOrdering Facility: [facility] Address: [address] [place] [address] Result Comment: No c lot detected. Performed By: #### 5 8410-2 ####[facility]ATORYCLIA [id number] [address] [place] RBC (Bld) [#/Vol] 3.91 10*6/uL Low 4.20-6.00 [facility] Comment on above: Order Comment: Speci men Type: BLOOD SPECIMENOrdering Facility: [facility] Address: [address] [place] [address] Performed By: #### 5 8410-2 ####[facility]ORYCLIA [id number] [address] [place] WBC (Bld) [#/Vol] 5.94 10*3/uL Normal 3.70-11.00 [facility] Comment on above: Order Comment: Speci men Type: BLOOD SPECIMENOrdering Facility: [facility] Address: [address] [place] [address] Performed By: #### 5 8410-2 ####[facility]ATORYCLIA [id number] [address] CNDSon 12-24-2024 CNDS HNO ID: [id number] Author: VANNESA DIOR APRN.[facility] Service: Neurosurgery Author Type: Nurse Practitioner Type: Discharge Summary Filed: 12/24/2024 13:59 Note Text: -- Attestation signed by Lacey Mcdermott MD at 12/25/2024 8:24 AM I agree with the discharge summary as written below. Lacey Mcdermott MD -- DISCHARGE SUMMARY PATIENT NAME: Frank Zimmer Code Status: Not on file ADMISSION DATE: 12/19/2024 DISCHARGE DATE: December 24, 2024 Highest Readmission Risk Score: 6 The 30 day readmissions risk score is derived from an internally validated risk model which evaluates patient level characteristics, utilization history, medication orders and lab results up until the day of discharge. Patients with a score of 40 or above are considered highest risk for readmission. Specific patient level drivers will be listed at the bottom of the summary. REASON FOR HOSPITALIZATION: Presented for spine work up for progressive myelopathy that had resulted in inability to walk. Was planning for surgery at OSH but was felt unsafe d/t cardiac history and pacer. DIAGNOSIS: Principal Problem: Cervical stenosis of spinal canal (POA: Yes) Active Problems: VT (ventricular tachycardia) (HCC) (POA: Yes) Ischemic cardiomyopathy (POA: Yes) Preop cardiovascular exam (POA: No) Cervical myelopathy (HCC) (POA: Unknown) Primary hypertension (POA: Yes) Resolved Problems: * No resolved hospital problems. * HOSPITAL COURSE: 12/20: s/p PCDF> admitted to NICU for MAP goals 12/21: exam slightly better> required low dose Levophed> wean with Midodrine 12/22: NAEON. Pt with persistent neck pain. Pain medications adjusted. Stable for RNF. 12/24: D/C to [facility] CONSULTING TEAMS DURING HOSPITALIZATION: None PATIENT CONDITION AT DISCHARGE: Stable DISCHARGE DISPOSITION: Acute Rehabilitation Facility Physical Exam Performed: General - Alert, cooperative, appropriate Resp - even, unlabored GI - non-distended HEENT - Normocephalic. Atraumatic. Neck/Back - Incision c/d/I with sola; [place] J; No midline or paraspinal tenderness. No gross bony deformities. Neuro - A+O x3, PERRL, makes eye contact, speech clear, cranial nerves 2-12 grossly intact, QUINN, strength 5/5 BUE and BLE and equal. No sensory deficits Extremities- Grossly normal. Symmetrical. No edema, deformity, coloration changes. Pulses- 2+ DP, 2+ radial INFORMATION PROVIDED TO PATIENT: see D/C instructions ALLERGIES No Known Allergies DISCHARGE MEDICATION: Medication List START taking these medications gabapentin 300 mg capsule Commonly known as: NEURONTIN Take 1 capsule by mouth every 8 hours for 30 days. * naloxone 4 mg/actuation nasal spray Use 1 spray in one nostril as needed for overdose. May repeat every 2 to 3 min in alternating nostrils until medical assistance is available * naloxone 4 mg/actuation nasal spray Use 1 spray in one nostril as needed for overdose. May repeat every 2 to 3 min in alternating nostrils until medical assistance is available oxyCODONE IR 5 mg immediate release tablet Commonly known as: ROXICODONE Take 1-2 tablets by mouth every 4 hours as needed for up to 3 days. * This list has 2 medication(s) that are the same as other medications prescribed for you. Read the directions carefully, and ask your doctor or other care provider to review them with you. CHANGE how you take these medications amiodarone 200 mg tablet Commonly known as: PACERONE Take 1 tablet by mouth once daily. Start taking on: December 25, 2024 What changed: when to take this carvedilol 12.5 mg tablet Commonly known as: COREG Take 1 tablet by mouth two times a day with meals. What changed: medication strength See the new instructions. lisinopril 5 mg tablet Commonly known as: ZESTRIL Take 1 tablet by mouth once daily. Start taking on: December 25, 2024 What changed: medication strength how much to take CONTINUE taking these medications aspirin, enteric coated 81 mg EC tablet Commonly known as: ASPIRIN, ENTERIC COATED Take 1 tablet by mouth once daily. Patient should start on December 25, 2024. Start taking on: December 25, 2024 furosemide 20 mg tablet Commonly known as: LASIX JARDIANCE 25 mg tablet Generic drug: empagliflozin metFORMIN ER 500 mg 24 hr tablet Commonly known as: GLUCOPHAGE XR rosuvastatin 40 mg tablet Commonly known as: CRESTOR traMADol 50 mg tablet Commonly known as: ULTRAM Where to Get Your Medications You can get these medications from any pharmacy Bring a paper prescription for each of these medications oxyCODONE IR 5 mg immediate release tablet I evaluated the patient, and have reviewed their diagnosis and clinical course. They were evaluated for non-narcotic pain medications as the sole course of therapy, and we (more content not included)... Normal [facility] Epithelial cells.squamous LM Ql (Urine sed)Ordered By: Saumya Bobo on 12-24-2024 Epithelial cells.squamous LM.HPF (Urine sed) [#/Area] 0 /[HPF] 0-5 [facility] Glucose Ql (U)Ordered By: Santi Bobo on 12-24-2024 Glucose (U) [Mass/Vol] 1000 mg/dL High Normal [facility] Ketones Test strip Ql (U)Ord ered By: Saumya Bobo on 12-24-2024 Ketones Ql (U) Negative Negative [facility] Microscopic analysis of urin e for red blood cells (RBC)Ordered By: Saumya Bobo on 12-24-2024 Urine RBC 0 SEEN /hpf 0-5 [facility] Mucus LM Ql (Urine sed)Order ed By: Saumya Bobo on 12-24-2024 Mucus Ql (Urine sed) 0 SEEN /hpf [facility] Nitrite Test strip Ql (U)Ord ered By: Saumya Bobo on 12-24-2024 Nitrite Ql (U) Negative Negative [facility] Phosphate SerPl-mCncon 12-24 Phosphate [Mass/Vol] 2.9 mg/dL Normal 2.7-4.8 [facility] Comment on above: Order Comment: Speci men Type: BLOOD SPECIMENOrdering Facility: [facility] Address: [address] [place] [id number] Performed By: #### 2 777-1, 30251-9 ####[facility]ATORYCLIA [id number] [place] [address] [place] Protein Test strip Ql (U)Ord ered By: Saumya Bobo on 12-24-2024 Protein Ql (U) 15 mg/dl High Negative [facility] THERAPY NTon 12-24-2024 THERAPY NT HNO ID: [id number] Author: TOBI BAHENA, PT Service: Physical Therapy Author Type: Event Coordinator Type: Therapy (PT/OT/Speech/Resp) Filed: 12/24/2024 13:26 Note Text: -- Attestation signed by Tobi Bahena, PT at 12/24/2024 1:26 PM I reviewed and agree with the documentation corresponding to this therapy visit. SIGNATURE: Tobi Bahena, PT DATE: December 24, 2024 TIME: 1:26 PM -- Physical Therapy Treatment Summary SERVICE DATE: 12/24/2024 SERVICE TIME: 1000 to 7070 ROOM: [id number] PT 6 Clicks Score: 12 DISCHARGE RECOMMENDATIONS Acute Rehab Recommended Discharge Disposition Comments: Patient with progressive cervical myelopahty and severe central cord syndrome. Now s/p cervical spine surgery. Continues to have deficits in strenth balance and functional mobility related to current illness. Will need 3 hours of intensive rehab in acute rehab setting. Recommended Discharge Disposition Due to: Patient requires active, intensive rehabilitation by multiple therapy disciplines. Anticipate the patient will tolerate 3 hours of therapy per day., Functional deficits requiring ongoing therapy service prior to discharge home., Balance deficits, Functional status decline, Requires multiple therapy disciplines ASSESSMENT Response to Therapy Interventions: Good Participation in Activities Patient continues to require increased levels of assist with all mobility tasks. Patient able to take side steps and multi directional steps between surfaces. Patient unsteady with standing/gait. Continues to be well below baseline functioning at this time. continue to recommend acute care to improve strength, ROM, balance,endurance, normalized gait pattern, and independence with mobility tasks to prior level of function for safe return to home activity. PRECAUTIONS Fall Risk, Spine, Brace Brandy Zheng CURRENT HOSPITAL COURSE Patient with altered sensation R side, R leg weak. Pain with lifting. progressingve myelopathy and severe central cord syndrome. s/p C2-T1 PSFI on 12/20/24. Relevant Past Medical History: Kathe mack HOME LIVING Patient Lives With: Spouse, Family Assistance Available: 24-Hour Entry To Home: Stairs Number Of Stairs Into Home: 3 Number Of Stairs To Bed/Bath: 0 Tub/Shower Type: tub/shower and stall with grab bars/seat Laundry: basement, does Equipment Owned: Wheelchair- Manual, Walker- Wheeled, Cane, Shower Chair, Grab Bars- Shower, Grab Bars- Toilet (eliptical) PRIOR FUNCTIONAL LEVEL Within Functional Limits Pt has been using a W/C for a month previously used walker. helped with most ADLs but pt able to toilet himself with effort. SUBJECTIVE agreeable to PT session THERAPY DIAGNOSIS Reduced mobility-other, Muscle Weakness (generalized), Unsteadiness on feet, Ataxic gait TREATMENT INTERVENTIONS Therapeutic Activity (37342) Therapeutic Activity (88382) Treatment Minutes: 25 $ Therapeutic Activity (21357) Billed Units: 2 units Patient completed BLE AAROM(ankle pump, quad set, gluteal set, heel slide, hip abd/add to neutral, short arc quad, hip adductor squeeze) x 12 to 15 reps with minimal amount of assist. Patient educated on cervical precautions, recall of 1/3. Cuing/assist with rolling, scooting, log roll technique, transfers, pregait weight shifts, side stepping, and transfer to recliner chair. Positioned for comfort at end of session. Chair alarm on. Timed Code Treatment (minutes): 25 Skilled Treatment Time (minutes): 25 TRAINING AND EDUCATION PROVIDED Assistive Device Use, Bed Mobility, Exercise Program, Gait Pattern, Reduction of Deviations, Positioning, Precautions/Restrictions, Transfers THERAPEUTIC SKILLS USED Cues for Sequencing/Proper Technique for Activity, Cuing Tactile, Cuing Verbal, Cuing Visual, Facilitation of Joint Range of Motion, Movement Facilitation, Physical Assist, Postural Alignment Correction FUNCTIONAL STATUS mobility performed during session in bold, other mobility completed during prior session and may no longer be correct or appropriate to complete. Bed Mobility Rolling: Minimal Assistance assist with hook lying to slide lying Supine To Sit: Moderate Assistance via log roll technique, cuing for proper movements--assist with trunk/LEs Scooting: Minimal Assistance Transfers Sit To Stand: Moderate Assistance cuing for proper UE support, rocking trunk, powering up with LEs, assist to boost Stand To Sit: Moderate Assistance assist to square up to seated surface, proper UE support, assist with eccentric control Bed to Chair Moderate Assistance Bed To Chair Transfer Type: Stepping Bed To Chair Transfer Equipment: Gait Belt, Wheeled Walker Gait Moderate Assistance, Additional Information cuing/assist with balance, po (more content not included)... Normal [facility] Urinalysis, Completeon 12-24 BACTERIA RARE Normal None Seen [facility] Comment on above: Order Comment: TULIO TER SPECIMEN Performed By: #### L 400.0001 ####[facility] [address] [place], [address] RBC 0 SEEN Normal 0-5 [facility] Comment on above: Order Comment: TULIO TER SPECIMEN Performed By: #### L 400.0001 ####[facility] [address] [place], [address] WBC 0-5 SEEN Normal 0-5 [facility] Comment on above: Order Comment: TULIO TER SPECIMEN Performed By: #### L 400.0001 ####[facility] [address] [place], [address] EPI,SQUAMOUS 0 SEEN Normal 0-5 [facility] Comment on above: Order Comment: TULIO TER SPECIMEN Performed By: #### L 400.0001 ####[facility] [address] [place], [address] Mucus Ql (Urine sed) 0 SEEN Normal [facility] Comment on above: Order Comment: TULIO TER SPECIMEN Performed By: #### L 400.0001 ####[facility] [address] [place], [place], [id number] Urine blood detectionOrdered By: Saumya Bobo on 12-24-2024 Urine Occult Blood 10 /ul High Negative [facility] Urine clarityOrdered By: Patience armida Bobo on 12-24-2024 Clarity (U) Clear Clear [facility] Urine color determinationOrd ered By: Saumya Bobo on 12-24-2024 Color (U) Yellow Yellow [facility] Urine leukocyte esterase det ection by dipstickOrdered By: Saumya Bobo on 12-24-2024 Leukocyte esterase Test strip Ql (U) Negative Negative [facility] Urine pHOrdered By: Saumya gongora on 12-24-2024 pH (U) 7.0 [pH] 5.0 - 8.0 [facility] Urine specific gravity measu rementOrdered By: Saumya Bobo on 12-24-2024 Specific gravity (U) [Rel density] 1.010 1.002-1.03 0 [facility] Urobilinogen Ql (U)Ordered B y: Saumya Bobo on 12-24-2024 Urine Urobilinogen Normal mg/dl Normal [facility] White blood cell countOrdere d By: Saumya Bobo on 12-24-2024 Urine WBC 0-5 SEEN /hpf 0-5 [facility] Basic metabolic 2000 panelon 12-23-2024 Anion gap [Moles/Vol] 9 mmol/L Normal 8-15 [facility] Comment on above: Order Comment: Speci men Type: BLOOD SPECIMENOrdering Facility: [facility] Address: [address] [place] [address] Performed By: #### 2 4321-2, 2777-1 ####[facility]ATORYCLIA [id number] [place] [address] [place] Calcium [Mass/Vol] 8.5 mg/dL Normal 8.5-10.2 [facility] Comment on above: Order Comment: Speci men Type: BLOOD SPECIMENOrdering Facility: [facility] Address: [address] [place] [address] Performed By: #### 2 4321-2, 2776-10 ####[facility]ATORYCLIA [id number] [address] [place] Chloride [Moles/Vol] 100 mmol/L Normal 98-107 [facility] Comment on above: Order Comment: Speci men Type: BLOOD SPECIMENOrdering Facility: [facility] Address: [address] [place] [address] Performed By: #### 2 4321-2, 2776-10 ####[facility]ORYCLIA [id number] [address] [place] CO2 [Moles/Vol] 24 mmol/L Normal 22-30 [facility] Comment on above: Order Comment: Speci men Type: BLOOD SPECIMENOrdering Facility: [facility] Address: [address] [place] [address] Performed By: #### 2 4321-2, 2776-10 ####[facility]ATORYCLIA [id number] [address] [facility] Creatinine [Mass/Vol] 0.54 mg/dL Low 0.73-1.22 [facility] Comment on above: Order Comment: Speci men Type: BLOOD SPECIMENOrdering Facility: [facility] Address: [address] [place] [address] Performed By: #### 2 4321-2, 2776-10 ####[facility]ATORYCLIA [id number] [address] Creatinine and Glomerular filtration rate.predicted panel (S/P/Bld) 111 mL/min/1.73m??? Normal >=60 [facility] Comment on above: Order Comment: Speci men Type: BLOOD SPECIMENOrdering Facility: [facility] Address: [address] [place] [address] Result Comment: Gege mated Glomerular Filtration Rate (eGFR) is calculated using the 2020 CKD-EPI creatinine equation. This equation utilizes serum creatinine, sex, and age as parameters. The creatinine assay has traceable calibration to isotope dilution-mass spectrometry. Refer to KDIGO guidelines for clinical interpretation. In patients with unstable renal function, e.g. those with acute kidney injury, the eGFR may not accurately reflect actual GFR. Performed By: #### 2 4321-2, 277- ####[facility]ATORYCLIA [id number] [place] [address] [place] Glucose [Mass/Vol] 125 mg/dL High 74-99 [facility] Comment on above: Order Comment: Porter men Type: BLOOD SPECIMENOrdering Facility: [facility] Address: [address] [place] [address] Result Comment: The [place] Diabetes Association (ADA) provides guidance for cutoff values for fasting glucose and random glucose. The ADA defines fasting as no caloric intake for at least 8 hours. Fasting plasma glucose results between 100 to 125 mg/dL indicate increased risk for diabetes (prediabetes). Fasting plasma glucose results greater than or equal to 126 mg/dL meet the criteria for diagnosis of diabetes. In the absence of unequivocal hyperglycemia, results should be confirmed by repeat testing. In a patient with classic symptoms of hyperglycemia or hyperglycemic crisis, random plasma glucose results greater than or equal to 200 mg/dL meet the criteria for diagnosis of diabetes. Reference: Standards of Medical Care in Diabetes 2016, [place] [employer] Association. Diabetes Care. 2016.39(Suppl 1). Performed By: #### 2 432-, 2776-10 ####[facility]ATORYCLIA [id number] [place] [id number] [place] Potassium [Moles/Vol] Normal [facility] Comment on above: Order Comment: Porter stearns Type: BLOOD SPECIMENOrdering Facility: [facility] Address: [address] [place] [address] Result Comment: Unab le to assay due to interference from hemolysis. Suggest reorder as clinically indicated. Performed By: #### 2 4321-2, 277- ####[facility]ORYCLIA [id number] [address] [place] Sodium [Moles/Vol] 133 mmol/L Low 136-144 [facility] Comment on above: Order Comment: Speci men Type: BLOOD SPECIMENOrdering Facility: [facility] Address: [address] [place] [address] Performed By: #### 2 4321-2, 2777-1 ####[facility]ORYCLIA [id number] [address] [place] Urea nitrogen [Mass/Vol] 14 mg/dL Normal 9-24 [facility] Comment on above: Order Comment: Speci men Type: BLOOD SPECIMENOrdering Facility: [facility] Address: [address] [place] [address] Performed By: #### 2 4321-2, 2777-1 ####[facility]ORYCLIA [id number] [address] [facility] CBC panel Auto (Bld)on 12-23 Erythrocyte distribution width (RBC) [Ratio] 14.5 % Normal 11.5-15.0 [facility] Comment on above: Order Comment: Speci men Type: BLOOD SPECIMENOrdering Facility: [facility] Address: [address] [place] [address] Performed By: #### 5 8410-2 ####[facility]ATORYCLIA [id number] [address] [place] Hematocrit (Bld) [Volume fraction] 37.1 % Low 39.0-51.0 [facility] Comment on above: Order Comment: Speci men Type: BLOOD SPECIMENOrdering Facility: [facility] Address: [address] [place] [address] Performed By: #### 5 8410-2 ####[facility]ORYCLIA [id number] [address] [place] Hemoglobin (Bld) [Mass/Vol] 12.3 g/dL Low 13.0-17.0 [facility] Comment on above: Order Comment: Speci men Type: BLOOD SPECIMENOrdering Facility: [facility] Address: [address] [place] [address] Performed By: #### 5 8410-2 ####[facility]ORYCLIA [id number] [address] MCH (RBC) [Entitic mass] 31.5 pg Normal 26.0-34.0 [facility] Comment on above: Order Comment: Speci men Type: BLOOD SPECIMENOrdering Facility: [facility] Address: [address] [place] [address] Performed By: #### 5 8410-2 ####[facility]ORYCLIA [id number] [address] MCHC (RBC) [Mass/Vol] 33.2 g/dL Normal 30.5-36.0 [facility] Comment on above: Order Comment: Speci men Type: BLOOD SPECIMENOrdering Facility: [facility] Address: [address] [place] [address] Performed By: #### 5 8410-2 ####[facility]ORYCLIA [id number] [address] MCV (RBC) [Entitic vol] 95.1 fL Normal 80.0-100.0 [facility] Comment on above: Order Comment: Speci men Type: BLOOD SPECIMENOrdering Facility: [facility] Address: [address] [place] [address] Performed By: #### 5 8410-2 ####[facility]ORYCLIA [id number] [address] Nucleated RBC (Bld) [#/Vol] 10*3/uL Normal <0.01 [facility] Comment on above: Order Comment: Speci men Type: BLOOD SPECIMENOrdering Facility: [facility] Address: [address] [place] [address] Performed By: #### 5 8410-2 ####[facility]ORYCLIA [id number] [address] Platelet mean volume (Bld) [Entitic vol] 10.7 fL Normal 9.0-12.7 [facility] Comment on above: Order Comment: Speci men Type: BLOOD SPECIMENOrdering Facility: [facility] Address: [facility] [place] [address] Performed By: #### 5 8410-2 ####[facility]ATORYCLIA [id number] [place] [address] [place] Platelets (Bld) [#/Vol] 118 10*3/uL Low 150-400 [facility] Comment on above: Order Comment: Speci men Type: BLOOD SPECIMENOrdering Facility: [facility] Address: [address] [place] [address] Result Comment: No c lot detected. Performed By: #### 5 8410-2 ####[facility]ATORYCLIA [id number] [place] [address] [place] RBC (Bld) [#/Vol] 3.90 10*6/uL Low 4.20-6.00 [facility] Comment on above: Order Comment: Speci men Type: BLOOD SPECIMENOrdering Facility: [facility] Address: [address] [place] [address] Performed By: #### 5 8410-2 ####[facility]ORYCLIA [id number] [address] [place] WBC (Bld) [#/Vol] 6.48 10*3/uL Normal 3.70-11.00 [facility] Comment on above: Order Comment: Speci men Type: BLOOD SPECIMENOrdering Facility: [facility] Address: [address] [place] [address] Performed By: #### 5 8410-2 ####[facility]ORYCLIA [id number] [address] [place] Phosphate SerPl-mCncon 12-23 Phosphate [Mass/Vol] 2.5 mg/dL Low 2.7-4.8 [facility] Comment on above: Order Comment: Speci men Type: BLOOD SPECIMENOrdering Facility: [facility] Address: [address] [place], [place] [id number] Performed By: #### 2 4321-2, 2777-1 ####[facility] LABORATORYIA [id number] [place] [address] [place] THERAPY NTon 12-23-2024 THERAPY NT HNO ID: [id number] Author: CATE RIVERA PT Service: Physical Therapy Author Type: Physical Therapist Type: Therapy (PT/OT/Speech/Resp) Filed: 12/23/2024 15:23 Note Text: Physical Therapy Treatment Summary SERVICE DATE: 12/23/2024 SERVICE TIME: 1428 to 1500 ROOM: [place] [address] PT 6 Clicks Score: 11 DISCHARGE RECOMMENDATIONS Acute Rehab Recommended Discharge Disposition Comments: Patient with progressive cervical myelopahty and severe central cord syndrome. Now s/p cervical spine surgery. Continues to have deficits in strenth balance and functional mobility related to current illness. Will need 3 hours of intensive rehab in acute rehab setting. Recommended Discharge Disposition Due to: Patient requires active, intensive rehabilitation by multiple therapy disciplines. Anticipate the patient will tolerate 3 hours of therapy per day., Functional deficits requiring ongoing therapy service prior to discharge home., Balance deficits, Functional status decline, Requires multiple therapy disciplines ASSESSMENT Response to Therapy Interventions: Good Participation in Activities, Pain Pt is very happy that he is able move his legs better post operatively and already showing some improved function with mobility. Reviewed cervical spine precautions with patient, he demonstrates understanding. Started tx session with LE strengthening exercises in the bed which he tolerated well. Pt was assisted with bed mobility, transitioning from supine to sit using the log rolling technique. Height of bed was elevated for pts initial sit to stand transfer. He is 6'5. He requires moderate assist to boost to standing and once standing reports, I haven't stood this tall in months. He was also able to stand from the recliner chair which was a few inches shorter than the EOB in its elevated position. PRECAUTIONS Fall Risk, Spine, Brace [place] CURRENT HOSPITAL COURSE Patient with altered sensation R side, R leg weak. Pain with lifting. progressingve myelopathy and severe central cord syndrome. s/p C2-T1 PSFI on 12/20/24. Relevant Past Medical History: CAD and V. tach HOME LIVING Patient Lives With: Spouse, Family Assistance Available: 24-Hour Entry To Home: Stairs Number Of Stairs Into Home: 3 Number Of Stairs To Bed/Bath: 0 Tub/Shower Type: tub/shower and stall with grab bars/seat Laundry: basement, does Equipment Owned: Wheelchair- Manual, Walker- Wheeled, Cane, Shower Chair, Grab Bars- Shower, Grab Bars- Toilet (eliptical) PRIOR FUNCTIONAL LEVEL Within Functional Limits Pt has been using a W/C for a month previously used walker. helped with most ADLs but pt able to toilet himself with effort. SUBJECTIVE Agreeable to PT. Excited that he is able to move his legs better now post op. THERAPY DIAGNOSIS Reduced mobility-other, Muscle Weakness (generalized), Unsteadiness on feet, Ataxic gait TREATMENT INTERVENTIONS Therapeutic Exercise (61968), Therapeutic Activity (94345) Timed Code Treatment (minutes): 31 Skilled Treatment Time (minutes): 31 Therapeutic Exercise (29624) Treatment Minutes: 14 $ Therapeutic Exercise (22175) Billed Units: 1 unit Exercise Ankle Pumps (number of reps): 15 Quad Sets (number of reps): 10 Glut Sets (number of reps): 10 LAQ (number of reps): 10 Therapeutic Activity (16340) Treatment Minutes: 17 $ Therapeutic Activity (40318) Billed Units: 1 unit Training and assist with bed mobility using log rolling technique. Sit < > stand transfers, bed > chair transfers. Static standing balance and tolerance, including stepping in place x 30 seconds, moderate assist for balance. Reviewed cervical spine precautions. TRAINING AND EDUCATION PROVIDED Assistive Device Use, Bed Mobility, Benefits of In-Hospital Mobility, Discharge Planning, Disease Specific Education, Expected Functional Level, Equipment, Gait Pattern, Reduction of Deviations, Precautions/Restrictions, Pre-gait Activities, Sitting Balance, Role of Physical Therapy, Standing Balance, Transfers THERAPEUTIC SKILLS USED Cues for Sequencing/Proper Technique for Activity, Cuing Tactile, Cuing Verbal, Cuing Visual, Muscle Activation Facilitation, Physical Assist, Postural Alignment Correction, Movement Facilitation FUNCTIONAL STATUS Bed Mobility Rolling: Minimal Assistance Cues for log rolling technique to move toward EOB Supine To Sit: Moderate Assistance, Additional Information via log rolling technique, with increased time and effort he was able to move his LEs over the side of the bed, but needed strong support for trunk management to upright Scooting: Minimal Assistance, Additional Information using draw pad, cues to avoid excessive UE weight bearing Transfers Sit To Stand: Moderate Assistance, Additional Information raised height of bed for his initial STS transfer, needed moderate assist to boost to standing, cues for hand placement; pt then was able to st (more content not included)... Normal [facility] XR CHEST 1V FRONTALon 2024 XR CHEST 1V FRONTAL * * *Final Report* * * DATE OF EXAM: Dec 23 2024 8:43AM AKX [id number] - XR CHEST 1V FRONTAL / PROCEDURE REASON: Hypoxemia * * * * Physician Interpretation * * * * EXAMINATION: CHEST RADIOGRAPH (SINGLE VIEW AP OR PA) CLINICAL HISTORY: Hypoxemia MQ: XC1_5 Comparison: Chest radiograph 12/21/2024 RESULT: Lines, tubes, and devices: Left-sided cardiac device with leads overlying the right atrium, right ventricle, and coronary sinus. Posterior cervical spinal fusion with midline surgical sola. Cervical drain overlying the right chest wall. Lungs and pleura: No consolidation. No lung mass. No pleural effusion. Cardiomediastinal silhouette: Normal cardiomediastinal silhouette. Other: No bony abnormalities. IMPRESSION: No acute radiographic abnormality. Cell Pourer: PSCB Transcribe Date/Time: Dec 23 2024 11:14A Dictated by : EVAN SANTANA MD This examination was interpreted and the report reviewed and electronically signed by: EVAN SANTANA MD on Dec 23 2024 11:16AM EST [id number] Normal [facility] Basic metabolic 2000 panelon 12-22-2024 Anion gap [Moles/Vol] 11 mmol/L Normal 8-15 [facility] Comment on above: Order Comment: Speci men Type: BLOOD SPECIMENOrdering Facility: [facility] Address: [address] [place] [address] Performed By: #### 2 4321-2 ####[facility]ATORYCLIA [id number] [place] [address] [place] Calcium [Mass/Vol] 8.6 mg/dL Normal 8.5-10.2 [facility] Comment on above: Order Comment: Speci men Type: BLOOD SPECIMENOrdering Facility: [facility] Address: [address] [place] [address] Performed By: #### 2 4321-2 ####[facility]ORYCLIA [id number] [place] [id number] [place] Chloride [Moles/Vol] 103 mmol/L Normal 98-107 [facility] Comment on above: Order Comment: Speci men Type: BLOOD SPECIMENOrdering Facility: [facility] Address: [address] [place] [address] Performed By: #### 2 4321-2 ####[facility]ORYCLIA [id number] [address] [place] CO2 [Moles/Vol] 24 mmol/L Normal 22-30 [facility] Comment on above: Order Comment: Speci men Type: BLOOD SPECIMENOrdering Facility: [facility] Address: [address] [place] [address] Performed By: #### 2 4321-2 ####[facility]ATORYCLIA [id number] [address] [facility] Creatinine [Mass/Vol] 0.60 mg/dL Low 0.73-1.22 [facility] Comment on above: Order Comment: Speci men Type: BLOOD SPECIMENOrdering Facility: [facility] Address: [address] [place] [address] Performed By: #### 2 4321-2 ####[facility]ORYCLIA [id number] [address] Creatinine and Glomerular filtration rate.predicted panel (S/P/Bld) 107 mL/min/1.73m??? Normal >=60 [facility] Comment on above: Order Comment: Speci men Type: BLOOD SPECIMENOrdering Facility: [facility] Address: [address] [place] [address] Result Comment: Gege mated Glomerular Filtration Rate (eGFR) is calculated using the 2020 CKD-EPI creatinine equation. This equation utilizes serum creatinine, sex, and age as parameters. The creatinine assay has traceable calibration to isotope dilution-mass spectrometry. Refer to KDIGO guidelines for clinical interpretation. In patients with unstable renal function, e.g. those with acute kidney injury, the eGFR may not accurately reflect actual GFR. Performed By: #### 2 4321-2 ####[facility]ATORYCLIA [id number] [place] [address] [place] Glucose [Mass/Vol] 138 mg/dL High 74-99 [facility] Comment on above: Order Comment: Porter stearns Type: BLOOD SPECIMENOrdering Facility: [facility] Address: [address] [place] [address] Result Comment: The [place] Diabetes Association (ADA) provides guidance for cutoff values for fasting glucose and random glucose. The ADA defines fasting as no caloric intake for at least 8 hours. Fasting plasma glucose results between 100 to 125 mg/dL indicate increased risk for diabetes (prediabetes). Fasting plasma glucose results greater than or equal to 126 mg/dL meet the criteria for diagnosis of diabetes. In the absence of unequivocal hyperglycemia, results should be confirmed by repeat testing. In a patient with classic symptoms of hyperglycemia or hyperglycemic crisis, random plasma glucose results greater than or equal to 200 mg/dL meet the criteria for diagnosis of diabetes. Reference: Standards of Medical Care in Diabetes 2016, [place] [employer] Association. Diabetes Care. 2016.39(Suppl 1). Performed By: #### 2 4321-2 ####[facility]ATORYCLIA [id number] [place] [address] [place] Potassium [Moles/Vol] 4.1 mmol/L Normal 3.7-5.1 [facility] Comment on above: Order Comment: Porter stearns Type: BLOOD SPECIMENOrdering Facility: [facility] Address: [address] [place] [address] Performed By: #### 2 4321-2 ####[facility]ATORYCLIA [id number] [place] [id number] [place] Sodium [Moles/Vol] 138 mmol/L Normal 136-144 [facility] Comment on above: Order Comment: Porter stearns Type: BLOOD SPECIMENOrdering Facility: [facility] Address: [address] [place] [id number] Performed By: #### 2 4321-2 ####[facility] [id number] [place] [address] [place] Urea nitrogen [Mass/Vol] 18 mg/dL Normal 9-24 [facility] Comment on above: Order Comment: Speci men Type: BLOOD SPECIMENOrdering Facility: [facility] Address: [address] [place] [address] Performed By: #### 2 4321-2 ####[facility]ORYCLIA [id number] [place] [address] [place] Anion gap [Moles/Vol] 10 mmol/L Normal 8-15 [facility] Comment on above: Order Comment: Speci men Type: BLOOD SPECIMENOrdering Facility: [facility] Address: [address] [place] [address] Performed By: #### 1 9123-9, 27771, 89089-8 ####[facility]ORYCLIA [id number] [place] [address] [place] Calcium [Mass/Vol] 8.4 mg/dL Low 8.5-10.2 [facility] Comment on above: Order Comment: Speci men Type: BLOOD SPECIMENOrdering Facility: [facility] Address: [address] [place] [address] Performed By: #### 1 9123-9, 2777-1, 63208-5 ####[facility]ORYCLIA [id number] [place] [address] [place] Chloride [Moles/Vol] 101 mmol/L Normal 98-107 [facility] Comment on above: Order Comment: Speci men Type: BLOOD SPECIMENOrdering Facility: [facility] Address: [address] [place] [address] Performed By: #### 1 9123-9, 2777, 54635-2 ####[facility]ORYCLIA [id number] [place] [address] [place] CO2 [Moles/Vol] 24 mmol/L Normal 22-30 [facility] Comment on above: Order Comment: Speci men Type: BLOOD SPECIMENOrdering Facility: [facility] Address: [address] [place] [address] Performed By: #### 1 9123-9, 2777-1, 68110-6 ####[facility] WAYNEIA [id number] [place] [id number] [place] Creatinine [Mass/Vol] 0.58 mg/dL Low 0.73-1.22 [facility] Comment on above: Order Comment: Speci men Type: BLOOD SPECIMENOrdering Facility: [facility] Address: [address] [place] [address] Performed By: #### 1 9123-9, 2777-1, 70223-0 ####[facility] WAYNEIA [id number] [address] Creatinine and Glomerular filtration rate.predicted panel (S/P/Bld) 108 mL/min/1.73m??? Normal >=60 [facility] Comment on above: Order Comment: Speci men Type: BLOOD SPECIMENOrdering Facility: [facility] Address: [address] [place] [address] Result Comment: Gege mated Glomerular Filtration Rate (eGFR) is calculated using the 2020 CKD-EPI creatinine equation. This equation utilizes serum creatinine, sex, and age as parameters. The creatinine assay has traceable calibration to isotope dilution-mass spectrometry. Refer to KDIGO guidelines for clinical interpretation. In patients with unstable renal function, e.g. those with acute kidney injury, the eGFR may not accurately reflect actual GFR. Performed By: #### 1 9123-9, 2777-1, 76496-9 ####[facility]ORATORYIA [id number] [place] [id number] [place] Glucose [Mass/Vol] 143 mg/dL High 74-99 [facility] Comment on above: Order Comment: Speci men Type: BLOOD SPECIMENOrdering Facility: [facility] Address: [address] [place] [address] Result Comment: The [place] Diabetes Association (ADA) provides guidance for cutoff values for fasting glucose and random glucose. The ADA defines fasting as no caloric intake for at least 8 hours. Fasting plasma glucose results between 100 to 125 mg/dL indicate increased risk for diabetes (prediabetes). Fasting plasma glucose results greater than or equal to 126 mg/dL meet the criteria for diagnosis of diabetes. In the absence of unequivocal hyperglycemia, results should be confirmed by repeat testing. In a patient with classic symptoms of hyperglycemia or hyperglycemic crisis, random plasma glucose results greater than or equal to 200 mg/dL meet the criteria for diagnosis of diabetes. Reference: Standards of Medical Care in Diabetes 2016, [place] [employer]. Diabetes Care. 2016.39(Suppl 1). Performed By: #### 1 9123-9, 2777-, 24219-1 ####[facility]ATORYCLIA [id number] [place] [address] [place] Potassium [Moles/Vol] Normal [facility] Comment on above: Order Comment: Porter stearns Type: BLOOD SPECIMENOrdering Facility: [facility] Address: [address] [place] [address] Result Comment: Unab le to assay due to interference from hemolysis. Suggest reorder as clinically indicated. Performed By: #### 1 9123-9, 2777, 45201-7 ####[facility]ATORYCLIA [id number] [place] [address] [place] Sodium [Moles/Vol] 135 mmol/L Low 136-144 [facility] Comment on above: Order Comment: Porter stearns Type: BLOOD SPECIMENOrdering Facility: [facility] Address: [address] [place] [address] Performed By: #### 1 9123-9, 2777, 08127-7 ####[facility]ATORYCLIA [id number] [place] [address] [place] Urea nitrogen [Mass/Vol] 20 mg/dL Normal 9-24 [facility] Comment on above: Order Comment: Porter stearns Type: BLOOD SPECIMENOrdering Facility: [facility] Address: [address] [place] [address] Performed By: #### 1 9123-9, 2777-, 13378-7 ####[facility]ATORYCLIA [id number] [place] [address] [place] CBC W Auto Differential pane l (Bld)on 12-22-2024 Basophils (Bld) [#/Vol] 10*3/uL Normal <0.11 A [facility] Comment on above: Order Comment: Speci men Type: BLOOD SPECIMENOrdering Facility: [facility] Address: [address] [place] [address] Performed By: #### 5 7021-8 ####[facility]ORATORYCLIA [id number] [address] Basophils/100 WBC (Bld) 0.3 % Normal A [facility] Comment on above: Order Comment: Speci men Type: BLOOD SPECIMENOrdering Facility: [facility] Address: [address] [place] [address] Performed By: #### 5 7021-8 ####[facility]ATORYCLIA [id number] [address] Differential cell count method Nom (Bld) Auto Normal [facility] Comment on above: Order Comment: Speci men Type: BLOOD SPECIMENOrdering Facility: [facility] Address: [address] [place] [address] Performed By: #### 5 7021-8 ####[facility]ATORYCLIA [id number] [address] [place] Eosinophils (Bld) [#/Vol] 0.05 10*3/uL Normal <0.46 [facility] Comment on above: Order Comment: Speci men Type: BLOOD SPECIMENOrdering Facility: [facility] Address: [address] [place] [address] Performed By: #### 5 7021-8 ####[facility]ATORYCLIA [id number] [address] Eosinophils/100 WBC (Bld) 0.7 % Normal [facility] Comment on above: Order Comment: Speci men Type: BLOOD SPECIMENOrdering Facility: [facility] Address: [address] [place] [address] Performed By: #### 5 7021-8 ####[facility]ATORYCLIA [id number] [address] STATES [facility] Erythrocyte distribution width (RBC) [Ratio] 14.7 % Normal 11.5-15.0 [facility] Comment on above: Order Comment: Speci men Type: BLOOD SPECIMENOrdering Facility: [facility] Address: [address] [place] [address] Performed By: #### 5 7021-8 ####[facility]ATORYCLIA [id number] [address] [facility] Hematocrit (Bld) [Volume fraction] 38.7 % Low 39.0-51.0 [facility] Comment on above: Order Comment: Speci men Type: BLOOD SPECIMENOrdering Facility: [facility] Address: [address] [place] [address] Performed By: #### 5 7021-8 ####[facility]ORYCLIA [id number] [address] Hemoglobin (Bld) [Mass/Vol] 12.8 g/dL Low 13.0-17.0 [facility] Comment on above: Order Comment: Speci men Type: BLOOD SPECIMENOrdering Facility: [facility] Address: [address] [place] [address] Performed By: #### 5 7021-8 ####[facility]ATORYCLIA [id number] [address] Immature granulocytes (Bld) [#/Vol] 0.03 10*3/uL Normal <0.10 [facility] Comment on above: Order Comment: Speci men Type: BLOOD SPECIMENOrdering Facility: [facility] Address: [address] [place] [address] Performed By: #### 5 7021-8 ####[facility]ORYCLIA [id number] [address] Immature granulocytes/100 WBC (Bld) 0.4 % Normal [facility] Comment on above: Order Comment: Speci men Type: BLOOD SPECIMENOrdering Facility: [facility] Address: [address] [place] [address] Performed By: #### 5 7021-8 ####[facility]ORYCLIA [id number] [address] Lymphocytes (Bld) [#/Vol] 0.63 10*3/uL Low 1.00-4.00 [facility] Comment on above: Order Comment: Speci men Type: BLOOD SPECIMENOrdering Facility: [facility] Address: [address] [place] [address] Performed By: #### 5 7021-8 ####[facility]ORYCLIA [id number] [address] Lymphocytes/100 WBC (Bld) 8.8 % Normal [facility] Comment on above: Order Comment: Speci men Type: BLOOD SPECIMENOrdering Facility: [facility] Address: [address] [place] [address] Performed By: #### 5 7021-8 ####[facility]ATORYCLIA [id number] [address] MCH (RBC) [Entitic mass] 32.0 pg Normal 26.0-34.0 [facility] Comment on above: Order Comment: Speci men Type: BLOOD SPECIMENOrdering Facility: [facility] Address: [address] [place] [address] Performed By: #### 5 7021-8 ####[facility]ORYCLIA [id number] [address] MCHC (RBC) [Mass/Vol] 33.1 g/dL Normal 30.5-36.0 [facility] Comment on above: Order Comment: Speci men Type: BLOOD SPECIMENOrdering Facility: [facility] Address: [address] [place] [address] Performed By: #### 5 7021-8 ####[facility]ATORYCLIA [id number] [address] MCV (RBC) [Entitic vol] 96.8 fL Normal 80.0-100.0 A [facility] Comment on above: Order Comment: Speci men Type: BLOOD SPECIMENOrdering Facility: [facility] Address: [address] [place] [address] Performed By: #### 5 7021-8 ####[facility]ORATORYCLIA [id number] [place] [address] [place] Monocytes (Bld) [#/Vol] 0.83 10*3/uL Normal <0.87 [facility] Comment on above: Order Comment: Speci men Type: BLOOD SPECIMENOrdering Facility: [facility] Address: [address] [place] [address] Performed By: #### 5 7021-8 ####[facility]ORYCLIA [id number] [address] [place] Monocytes/100 WBC (Bld) 11.5 % Normal A [facility] Comment on above: Order Comment: Speci men Type: BLOOD SPECIMENOrdering Facility: [facility] Address: [address] [place] [address] Performed By: #### 5 7021-8 ####[facility]ORATORYCLIA [id number] [place] [address] [place] Neutrophils (Bld) [#/Vol] 5.63 10*3/uL Normal 1.45-7.50 [facility] Comment on above: Order Comment: Speci men Type: BLOOD SPECIMENOrdering Facility: [facility] Address: [address] [place] [address] Performed By: #### 5 7021-8 ####[facility]ATORYCLIA [id number] [place] [address] [place] Neutrophils/100 WBC (Bld) 78.3 % Normal [facility] Comment on above: Order Comment: Speci men Type: BLOOD SPECIMENOrdering Facility: [facility] Address: [address] [place] [address] Performed By: #### 5 7021-8 ####[facility]ATORYCLIA [id number] [address] [facility] Nucleated RBC (Bld) [#/Vol] 10*3/uL Normal <0.01 [facility] Comment on above: Order Comment: Speci men Type: BLOOD SPECIMENOrdering Facility: [facility] Address: [address] [place] [address] Performed By: #### 5 7021-8 ####[facility]ORYCLIA [id number] [address] [place] Nucleated RBC/100 WBC (Bld) [Ratio] 0.0 /100 WBC Normal [facility] Comment on above: Order Comment: Speci men Type: BLOOD SPECIMENOrdering Facility: [facility] Address: [address] [place] [address] Performed By: #### 5 7021-8 ####[facility]ORYCLIA [id number] [address] [place] Platelet mean volume (Bld) [Entitic vol] 11.5 fL Normal 9.0-12.7 [facility] Comment on above: Order Comment: Speci men Type: BLOOD SPECIMENOrdering Facility: [facility] Address: [address] [place] [address] Performed By: #### 5 7021-8 ####[facility]ORYCLIA [id number] [address] [place] Platelets (Bld) [#/Vol] 107 10*3/uL Low 150-400 [facility] Comment on above: Order Comment: Speci men Type: BLOOD SPECIMENOrdering Facility: [facility] Address: [address] [place] [address] Result Comment: No c lot detected. Performed By: #### 5 7021-8 ####[facility]ATORYCLIA [id number] [address] [place] RBC (Bld) [#/Vol] 4.00 10*6/uL Low 4.20-6.00 [facility] Comment on above: Order Comment: Speci men Type: BLOOD SPECIMENOrdering Facility: [facility] Address: [address] [place] [address] Performed By: #### 5 7021-8 ####[facility]ATORYCLIA [id number] [address] [facility] WBC (Bld) [#/Vol] 7.19 10*3/uL Normal 3.70-11.00 [facility] Comment on above: Order Comment: Speci men Type: BLOOD SPECIMENOrdering Facility: [facility] Address: [address] [place] [address] Performed By: #### 5 7021-8 ####[facility]ORYCLIA [id number] [address] CBC panel Auto (Bld)on 12-22 Erythrocyte distribution width (RBC) [Ratio] 14.3 % Normal 11.5-15.0 [facility] Comment on above: Order Comment: Speci men Type: BLOOD SPECIMENOrdering Facility: [facility] Address: [address] [place] [address] Performed By: #### 5 8410-2 ####[facility]ATORYCLIA [id number] [address] Hematocrit (Bld) [Volume fraction] 36.0 % Low 39.0-51.0 [facility] Comment on above: Order Comment: Speci men Type: BLOOD SPECIMENOrdering Facility: [facility] Address: [address] [place] [address] Performed By: #### 5 8410-2 ####[facility]ATORYCLIA [id number] [address] OF [facility] Hemoglobin (Bld) [Mass/Vol] 12.0 g/dL Low 13.0-17.0 [facility] Comment on above: Order Comment: Speci men Type: BLOOD SPECIMENOrdering Facility: [facility] Address: [address] [place] [address] Performed By: #### 5 8410-2 ####[facility]ORYCLIA [id number] [address] MCH (RBC) [Entitic mass] 31.7 pg Normal 26.0-34.0 [facility] Comment on above: Order Comment: Speci men Type: BLOOD SPECIMENOrdering Facility: [facility] Address: [address] [place] [address] Performed By: #### 5 8410-2 ####[facility]ATORYCLIA [id number] [address] [place] [facility] MCHC (RBC) [Mass/Vol] 33.3 g/dL Normal 30.5-36.0 [facility] Comment on above: Order Comment: Speci men Type: BLOOD SPECIMENOrdering Facility: [facility] Address: [address] [place] [address] Performed By: #### 5 8410-2 ####[facility]ATORYCLIA [id number] [address] STATES [facility] MCV (RBC) [Entitic vol] 95.0 fL Normal 80.0-100.0 [facility] Comment on above: Order Comment: Speci men Type: BLOOD SPECIMENOrdering Facility: [facility] Address: [address] [place] [address] Performed By: #### 5 8410-2 ####[facility]ATORYCLIA [id number] [address] Nucleated RBC (Bld) [#/Vol] 10*3/uL Normal <0.01 [facility] Comment on above: Order Comment: Speci men Type: BLOOD SPECIMENOrdering Facility: [facility] Address: [address] [place] [address] Performed By: #### 5 8410-2 ####[facility]ATORYCLIA [id number] [address] Platelet mean volume (Bld) [Entitic vol] 10.9 fL Normal 9.0-12.7 [facility] Comment on above: Order Comment: Speci men Type: BLOOD SPECIMENOrdering Facility: [facility] Address: [address] [place] [address] Performed By: #### 5 8410-2 ####[facility]ATORYCLIA [id number] [place] [id number] [facility] Platelets (Bld) [#/Vol] 133 10*3/uL Low 150-400 [facility] Comment on above: Order Comment: Speci men Type: BLOOD SPECIMENOrdering Facility: [facility] Address: [address] [place] [address] Result Comment: No c lot detected. Performed By: #### 5 8410-2 ####[facility]ATORYCLIA [id number] [address] OF [place] RBC (Bld) [#/Vol] 3.79 10*6/uL Low 4.20-6.00 [facility] Comment on above: Order Comment: Speci men Type: BLOOD SPECIMENOrdering Facility: [facility] Address: [address] [place] [address] Performed By: #### 5 8410-2 ####[facility]ATORYCLIA [id number] [address] WBC (Bld) [#/Vol] 7.19 10*3/uL Normal 3.70-11.00 [facility] Comment on above: Order Comment: Speci men Type: BLOOD SPECIMENOrdering Facility: [facility] Address: [address] [place] [address] Performed By: #### 5 8410-2 ####[facility]ATORYCLIA [id number] [address] CONSULTon 12-22-2024 CONSULT HNO ID: [id number] Author: WARNER BOGGS MD Service: Hospital Medicine Author Type: Physician Type: Consults Filed: 12/22/2024 20:35 Note Text: DEPARTMENT OF HOSPITAL MEDICINE INITIAL CONSULTATION NOTE SERVICE DATE: 12/22/2024 SERVICE TIME: 7:38 PM Primary Care Physician: No primary care provider on file. NIGHT AND WEEKEND COVERAGE: From 7am - 7pm, please call Team color After 7pm, please call cross cover pager #[phone] Subjective CHIEF COMPLAINT: Neck pain HPI: This is a 64 year old male with history of CAD, HTN, HLD, ischemic cardiomyopathy (EF 30% previously in 2021), V tach s/p [employer]ER[employer]-D, T2DM, chronic back pain who was admitted for further management of worsening cervical myelopathy symptoms. He was taken to the OR by orthopedics spine and underwent cervical decompression with C2-T1 spinal fusion 12/20/24. He was admitted to the neuro ICU post-op for MAP augmentation. He was transferred to regular nursing floor 12/22. Medicine is consulted post op for medical management of diabetes and HTN. Patient currently on bedside commode, states he is passing lots of gas, feels constipated. Neck pain controlled. Denies other complaints at this time. PAST MEDICAL HISTORY Diagnosis Date CAD (coronary artery disease) V-tach (HCC) PAST SURGICAL HISTORY Procedure Laterality Date INSERT/REPL DEFIB LEAD/GENER OTHR PAST SURGICAL HISTORY OF WARTS RIGHT FOOT PAST SURGICAL HISTORY OF NASAL SURGERY PCI/STENT FAMILY HISTORY Problem Relation Age of Onset Diabetes Father Heart Father HEART DISEASE Heart Mother VALVE REPAIRED Hypertension Mother Social History Tobacco Use Smoking status: Never Substance Use Topics Alcohol use: Never Drug use: Never HOME MEDICATIONS: Prior to Admission Medications Prescriptions Last Dose Informant Patient Reported? Taking? JARDIANCE 25 mg tablet OTHER Yes Yes Sig: Take 25 mg by mouth daily with breakfast. amiodarone (PACERONE) 200 mg tablet OTHER Yes Yes Sig: Take 1 tablet by mouth every afternoon. aspirin, enteric coated (ASPIRIN, ENTERIC COATED) 81 [...] TABLET BY MOUTH EVERY DAY nightly traMADol (ULTRAM) 50 mg tablet OTHER, Patient Yes Yes Sig: Take 50 mg by mouth three times a day. Facility-Administered Medications: None ALLERGIES Allergen Reactions Bees ANAPHALACTIC REACTION Morphine Vomiting REVIEW OF SYSTEM: All ROS are negative except those noted in HPI Objective PHYSICAL EXAM: BP 142/76 Pulse 68 Temp (Src) 98.9 (Oral) Resp 20 Ht 6' 5 (1.96m) Wt 207 lb 0.2 oz (93.9kg) SpO2 93% BMI 24.54 kg/(m2). O2 Therapy: Nasal Cannula, Liters (Numeric Only): 2 Constitutional - vitals as above, not in acute distress Eyes- Perrla, no scleral icterus Ear, Nose, throat and Mouth- Normal oral mucosa, Trachea midline Cardiovascular system- RRR Respiratory- NO accessory muscle use, Clear to auscultate both sides, No wheezing/rales Gastrointestinal system - NTND, bowel sounds normally heard, no mass palpable Musculoskeletal system- C collar in place Skin - No rash/ no ulcers/ no induration Neurological- Cranial nerves 2 to 12 grossly intact, speech normal Heme/Lymph/immune- No supraclavicular lymphadenopathy, no cervical lymphadenopathy, no skin pallor Psychiatry- AxOx3, normal affect, judgement /insight intact DATA: Diagnostic tests reviewed for today's visit: Most recent labs and imaging results. CBC: Recent Labs 12/22/24 1615 WBC 7.19 RBC 4.00* HB 12.8* HCT 38.7* PLT 107* MCV 96.8 MCH 32.0 MPV 11.5 Coags: No results for input(s): PT, INR, APTT in the last 24 hours. BMP: Recent Labs 12/22/24 0354 NA 138 K 4.1 CHLOR 103 CO2 24 BUN 18 CREAT 0.60* GLUC 138* CMP: Recent Labs 12/22/24 0354 12/22/24 0224 NA 138 135* K 4.1 -- CHLOR 103 101 CO2 24 24 BUN 18 20 CREAT 0.60* 0.58* GLUC 138* 143* CA 8.6 8.4* MG -- 1.9 ANION 11 10 Cardiac Enzymes: No results for input(s): CK, MB, CKMB, TROPT in the last 24 hours. Liver Function, Amylase, Lipase: No results for input(s): TPROT, ALB, ALT, AST, ALKPHOS, TBILI, AMYLASE, LIPASE, LACTATE in the last 24 hours. MG/PHOS: Recent Labs 12/22/24 0224 MG 1.9 P 2.6* Renal Panel: Recent Labs 12/22/24 0354 12/22/24 0224 CREAT 0.60* 0.58* BUN 18 20 GLUC 138* 143* CA 8.6 8.4* P -- 2.6* CHLOR 103 101 K 4.1 -- CO2 24 24 NA 138 135* Heme: No re (more content not included)... Normal [facility] Magnesium SerPl-ncon 12-22 Magnesium [Mass/Vol] 1.9 mg/dL Normal 1.7-2.3 [facility] Comment on above: Order Comment: Speci men Type: BLOOD SPECIMENOrdering Facility: [facility] Address: [address] [place] [address] Performed By: #### 1 9123-9, 2777-1, 14258-4 ####[facility]ITALCLIA [id number] [place] [address] [place] Phosphate SerPl-ncon 12-22 Phosphate [Mass/Vol] 2.6 mg/dL Low 2.7-4.8 [facility] Comment on above: Order Comment: Specshahla stearns Type: BLOOD SPECIMENOrdering Facility: [facility] Address: [address] [place] [address] Performed By: #### 1 9123-9, 2777-1, 60994-6 ####[facility]ITALCLIA [id number] [address] [place] STAPHYLOCOCCUS AUREUS AND MR SA SCREEN, PCR, NASALon 12-22-2024 S. aureus and MRSA panel JASON+probe (Nose) Not detected Normal Not Detected [facility] Comment on above: Order Comment: Specshahla stearns Type: SWABOrdering Facility: [facility] Address: [address] [place] [address] Performed By: #### S APCR ####[facility]ORATORYCLIA [id number] [place] [address] [place] ARTERIAL BLOOD GASESon 12-21 Base deficit (BldA) [Moles/Vol] -1 mmol/L Normal -2-0 [facility] Comment on above: Order Comment: Speci men Type: ARTERIAL BLOOD SPECIMENOrdering Facility: [facility] Address: [address] [place] [address] Performed By: #### A LLBG ####[facility]ATORYCLIA [id number] [address] Body temperature 98.06 [degF] Normal [facility] Comment on above: Order Comment: Speci men Type: ARTERIAL BLOOD SPECIMENOrdering Facility: [facility] Address: [address] [place] [address] Performed By: #### A LLBG ####[facility]ATORYCLIA [id number] [address] Calcium.ionized (BldV) [Mass/Vol] 1.20 mmol/L Normal 1.08-1.30 [facility] Comment on above: Order Comment: Speci men Type: ARTERIAL BLOOD SPECIMENOrdering Facility: [facility] Address: [address] [place] [address] Performed By: #### A LLBG ####[facility]ATORYCLIA [id number] [address] Calcium.ionized adjusted to pH 7.4 (BldA) [Moles/Vol] 1.21 mmol/L Normal 1.08-1.30 [facility] Comment on above: Order Comment: Speci men Type: ARTERIAL BLOOD SPECIMENOrdering Facility: [facility] Address: [address] [place] [address] Performed By: #### A LLBG ####[facility]ORATORYCLIA [id number] [address] [place] Carboxyhemoglobin (BldA) [Mass fraction] 1.1 % Normal 0.0-2.0 [facility] Comment on above: Order Comment: Speci men Type: ARTERIAL BLOOD SPECIMENOrdering Facility: [facility] Address: [address] [place] [address] Result Comment: Carb oxyhemoglobin Reference Range for Smokers: 2.0-8.0% Performed By: #### A LLBG ####[facility]ORATORYCLIA [id number] [place] [address] [place] Chloride [Moles/Vol] 105 mmol/L Normal 97-105 [facility] Comment on above: Order Comment: Speci men Type: ARTERIAL BLOOD SPECIMENOrdering Facility: [facility] Address: [address] [place] [address] Performed By: #### A LLBG ####[facility]ORATORYCLIA [id number] [address] [place] CO2 (Bld) [Partial pressure] 34 mm Hg Low 36-46 [facility] Comment on above: Order Comment: Speci men Type: ARTERIAL BLOOD SPECIMENOrdering Facility: [facility] Address: [address] [place] [address] Performed By: #### A LLBG ####[facility]ATORYCLIA [id number] [address] CO2 adjusted to patient's actual temperature (Bld) [Partial pressure] 34 mmHg Low 36-46 [facility] Comment on above: Order Comment: Speci men Type: ARTERIAL BLOOD SPECIMENOrdering Facility: [facility] Address: [address] [place] [address] Performed By: #### A LLBG ####[facility]ATORYCLIA [id number] [address] [place] Glucose [Mass/Vol] 158 mg/dL High 60-105 [facility] Comment on above: Order Comment: Speci men Type: ARTERIAL BLOOD SPECIMENOrdering Facility: [facility] Address: [address] [place] [address] Performed By: #### A LLBG ####[facility]ATORYCLIA [id number] [address] [place] HCO3 (Bld) [Moles/Vol] 22 mmol/L Normal 22-26 [facility] Comment on above: Order Comment: Speci men Type: ARTERIAL BLOOD SPECIMENOrdering Facility: [facility] Address: [address] [place] [address] Performed By: #### A LLBG ####[facility]ATORYCLIA [id number] [address] [place] Hematocrit (Bld) [Volume fraction] 40.9 % Normal 39.0-51.0 [facility] Comment on above: Order Comment: Speci men Type: ARTERIAL BLOOD SPECIMENOrdering Facility: [facility] Address: [address] [place] [address] Performed By: #### A LLBG ####[facility]ORYCLIA [id number] [address] [place] Hemoglobin (Bld) [Mass/Vol] 13.3 g/dL Normal 13.0-17.0 [facility] Comment on above: Order Comment: Speci men Type: ARTERIAL BLOOD SPECIMENOrdering Facility: [facility] Address: [address] [place] [address] Performed By: #### A LLBG ####[facility]ATORYCLIA [id number] [address] Lactate [Moles/Vol] 1.0 mmol/L Normal 0.5-2.2 [facility] Comment on above: Order Comment: Speci men Type: ARTERIAL BLOOD SPECIMENOrdering Facility: [facility] Address: [address] [place] [address] Performed By: #### A LLBG ####[facility]ATORYCLIA [id number] [address] [place] Methemoglobin (Bld) [Mass fraction] 0.8 % Normal 0.0-1.5 [facility] Comment on above: Order Comment: Speci men Type: ARTERIAL BLOOD SPECIMENOrdering Facility: [facility] Address: [address] [place] [address] Performed By: #### A LLBG ####[facility]ATORYCLIA [id number] [address] [place] O2 THERAPY Normal [facility] Comment on above: Order Comment: Speci men Type: ARTERIAL BLOOD SPECIMENOrdering Facility: [facility] Address: [address] [place] [address] Result Comment: NC = Nasal Cannula NC = Nasal Cannula Performed By: #### A LLBG ####[facility]ATORYCLIA [id number] [address] [place] Oxygen (Bld) [Partial pressure] 75 mm Hg Low 85-95 [facility] Comment on above: Order Comment: Speci men Type: ARTERIAL BLOOD SPECIMENOrdering Facility: [facility] Address: [address] [place] [address] Performed By: #### A LLBG ####[facility]ATORYCLIA [id number] [address] Oxygen adjusted to patient's actual temperature (Bld) [Partial pressure] 74 mmHg Low 85-95 [facility] Comment on above: Order Comment: Speci men Type: ARTERIAL BLOOD SPECIMENOrdering Facility: [facility] Address: [address] [place] [address] Performed By: #### A LLBG ####[facility]ATORYCLIA [id number] [address] [place] Oxyhemoglobin (BldA) [Mass fraction] 94 % Low 95-98 [facility] Comment on above: Order Comment: Speci men Type: ARTERIAL BLOOD SPECIMENOrdering Facility: [facility] Address: [address] [place] [address] Performed By: #### A LLBG ####[facility]ATORYCLIA [id number] [address] [place] pH (Bld) 7.43 [pH] Normal 7.35-7.45 [facility] Comment on above: Order Comment: Speci men Type: ARTERIAL BLOOD SPECIMENOrdering Facility: [facility] Address: [address] [place] [address] Performed By: #### A LLBG ####[facility]ATORYCLIA [id number] [address] [place] pH adjusted to patient's actual temperature (Bld) 7.43 Normal 7.35-7.45 [facility] Comment on above: Order Comment: Speci men Type: ARTERIAL BLOOD SPECIMENOrdering Facility: [facility] Address: [address] [place] [address] Performed By: #### A LLBG ####[facility]ORATORYCLIA [id number] [place] [address] [place] Potassium [Moles/Vol] 4.1 mmol/L Normal 3.5-5.0 [facility] Comment on above: Order Comment: Speci men Type: ARTERIAL BLOOD SPECIMENOrdering Facility: [facility] Address: [address] [place] [address] Performed By: #### A LLBG ####[facility]ORATORYCLIA [id number] [place] [address] [place] Sodium [Moles/Vol] 131 mmol/L Low 136-144 [facility] Comment on above: Order Comment: Speci men Type: ARTERIAL BLOOD SPECIMENOrdering Facility: [facility] Address: [address] [place] [address] Performed By: #### A LLBG ####[facility]ORATORYCLIA [id number] [place] [address] [place] Basic metabolic 2000 panelon 12-21-2024 Anion gap [Moles/Vol] 12 mmol/L Normal 8-15 [facility] Comment on above: Order Comment: Speci men Type: BLOOD SPECIMENOrdering Facility: [facility] Address: [address] [place] [address] Performed By: #### 2 4321-2 ####[facility]ORATORYCLIA [id number] [place] [address] [place] Calcium [Mass/Vol] 8.6 mg/dL Normal 8.5-10.2 [facility] Comment on above: Order Comment: Speci men Type: BLOOD SPECIMENOrdering Facility: [facility] Address: [address] [place] [address] Performed By: #### 2 4321-2 ####[facility]ORATORYCLIA [id number] [place] [address] [place] Chloride [Moles/Vol] 100 mmol/L Normal 98-107 [facility] Comment on above: Order Comment: Speci men Type: BLOOD SPECIMENOrdering Facility: [facility] Address: [address] [place] [address] Performed By: #### 2 4321-2 ####[facility]ATORYCLIA [id number] [address] CO2 [Moles/Vol] 22 mmol/L Normal 22-30 [facility] Comment on above: Order Comment: Speci men Type: BLOOD SPECIMENOrdering Facility: [facility] Address: [address] [place] [address] Performed By: #### 2 4321-2 ####[facility]ITALCLIA [id number] [address] Creatinine [Mass/Vol] 0.72 mg/dL Low 0.73-1.22 [facility] Comment on above: Order Comment: Speci men Type: BLOOD SPECIMENOrdering Facility: [facility] Address: [address] [place] [address] Performed By: #### 2 4321-2 ####[facility]ATORYCLIA [id number] [address] Creatinine and Glomerular filtration rate.predicted panel (S/P/Bld) 101 mL/min/1.73m??? Normal >=60 [facility] Comment on above: Order Comment: Speci men Type: BLOOD SPECIMENOrdering Facility: [facility] Address: [address] [place] [address] Result Comment: Gege mated Glomerular Filtration Rate (eGFR) is calculated using the 2020 CKD-EPI creatinine equation. This equation utilizes serum creatinine, sex, and age as parameters. The creatinine assay has traceable calibration to isotope dilution-mass spectrometry. Refer to KDIGO guidelines for clinical interpretation. In patients with unstable renal function, e.g. those with acute kidney injury, the eGFR may not accurately reflect actual GFR. Performed By: #### 2 4321-2 ####[facility]ATORYCLIA [id number] [place] [address] [place] Glucose [Mass/Vol] 137 mg/dL High 74-99 [facility] Comment on above: Order Comment: Speci men Type: BLOOD SPECIMENOrdering Facility: [facility] Address: [address] [place] [address] Result Comment: The [place] Diabetes Association (ADA) provides guidance for cutoff values for fasting glucose and random glucose. The ADA defines fasting as no caloric intake for at least 8 hours. Fasting plasma glucose results between 100 to 125 mg/dL indicate increased risk for diabetes (prediabetes). Fasting plasma glucose results greater than or equal to 126 mg/dL meet the criteria for diagnosis of diabetes. In the absence of unequivocal hyperglycemia, results should be confirmed by repeat testing. In a patient with classic symptoms of hyperglycemia or hyperglycemic crisis, random plasma glucose results greater than or equal to 200 mg/dL meet the criteria for diagnosis of diabetes. Reference: Standards of Medical Care in Diabetes 2016, [place] [employer] Association. Diabetes Care. 2016.39(Suppl 1). Performed By: #### 2 4321-2 ####[facility]ORATORYCLIA [id number] [place] [address] [place] Potassium [Moles/Vol] 4.2 mmol/L Normal 3.7-5.1 [facility] Comment on above: Order Comment: Yolii men Type: BLOOD SPECIMENOrdering Facility: [facility] Address: [address] [place] [address] Performed By: #### 2 4321-2 ####[facility]ORATORYCLIA [id number] [place] [address] [place] Sodium [Moles/Vol] 134 mmol/L Low 136-144 [facility] Comment on above: Order Comment: Speci men Type: BLOOD SPECIMENOrdering Facility: [facility] Address: [address] [place] [address] Performed By: #### 2 4321-2 ####[facility]ATORYCLIA [id number] [place] [address] [place] Urea nitrogen [Mass/Vol] 26 mg/dL High 9-24 [facility] Comment on above: Order Comment: Speci men Type: BLOOD SPECIMENOrdering Facility: [facility] Address: [address] [place] [address] Performed By: #### 2 4321-2 ####[facility] [facility]ATORYCLIA [id number] [address] [place] Anion gap [Moles/Vol] 12 mmol/L Normal 8-15 [facility] Comment on above: Order Comment: Speci men Type: BLOOD SPECIMENOrdering Facility: [facility] Address: [address] [place] [address] Performed By: #### 2 4321-2 ####[facility] LABORATORYCLIA [id number] [address] [place] Calcium [Mass/Vol] 8.9 mg/dL Normal 8.5-10.2 [facility] Comment on above: Order Comment: Speci men Type: BLOOD SPECIMENOrdering Facility: [facility] Address: [address] [place] [address] Performed By: #### 2 4321-2 ####[facility] [facility]ATORYCLIA [id number] [address] [place] Chloride [Moles/Vol] 101 mmol/L Normal 98-107 [facility] Comment on above: Order Comment: Speci men Type: BLOOD SPECIMENOrdering Facility: [facility] Address: [address] [place] [address] Performed By: #### 2 4321-2 ####[facility] [facility]ORATORYCLIA [id number] [place] [address] [place] CO2 [Moles/Vol] 20 mmol/L Low 22-30 [facility] Comment on above: Order Comment: Speci men Type: BLOOD SPECIMENOrdering Facility: [facility] Address: [address] [place] [address] Performed By: #### 2 4321-2 ####[facility] [facility]ATORYCLIA [id number] [place] [address] [place] Creatinine [Mass/Vol] 0.69 mg/dL Low 0.73-1.22 [facility] Comment on above: Order Comment: Yolishahla stearns Type: BLOOD SPECIMENOrdering Facility: [facility] Address: [address] [place] [address] Performed By: #### 2 4321-2 ####[facility]ATORYCLIA [id number] [place] [address] [place] Creatinine and Glomerular filtration rate.predicted panel (S/P/Bld) 103 mL/min/1.73m??? Normal >=60 [facility] Comment on above: Order Comment: Porter jinny Type: BLOOD SPECIMENOrdering Facility: [facility] Address: [address] [place] [address] Result Comment: Gege mated Glomerular Filtration Rate (eGFR) is calculated using the 2020 CKD-EPI creatinine equation. This equation utilizes serum creatinine, sex, and age as parameters. The creatinine assay has traceable calibration to isotope dilution-mass spectrometry. Refer to KDIGO guidelines for clinical interpretation. In patients with unstable renal function, e.g. those with acute kidney injury, the eGFR may not accurately reflect actual GFR. Performed By: #### 2 4321-2 ####[facility]ATORYCLIA [id number] [place] [address] [place] Glucose [Mass/Vol] 174 mg/dL High 74-99 [facility] Comment on above: Order Comment: Porter stearns Type: BLOOD SPECIMENOrdering Facility: [facility] Address: [address] [place] [address] Result Comment: The [place] Diabetes Association (ADA) provides guidance for cutoff values for fasting glucose and random glucose. The ADA defines fasting as no caloric intake for at least 8 hours. Fasting plasma glucose results between 100 to 125 mg/dL indicate increased risk for diabetes (prediabetes). Fasting plasma glucose results greater than or equal to 126 mg/dL meet the criteria for diagnosis of diabetes. In the absence of unequivocal hyperglycemia, results should be confirmed by repeat testing. In a patient with classic symptoms of hyperglycemia or hyperglycemic crisis, random plasma glucose results greater than or equal to 200 mg/dL meet the criteria for diagnosis of diabetes. Reference: Standards of Medical Care in Diabetes 2016, [place] [employer] Association. Diabetes Care. 2016.39(Suppl 1). Performed By: #### 2 4321-2 ####[facility]ATORYCLIA [id number] [place] [address] [place] Potassium [Moles/Vol] 4.4 mmol/L Normal 3.7-5.1 [facility] Comment on above: Order Comment: Speci men Type: BLOOD SPECIMENOrdering Facility: [facility] Address: [address] [place] [address] Performed By: #### 2 4321-2 ####[facility]ORATORYCLIA [id number] [place] [address] [place] Sodium [Moles/Vol] 133 mmol/L Low 136-144 [facility] Comment on above: Order Comment: Speci men Type: BLOOD SPECIMENOrdering Facility: [facility] Address: [address] [place] [address] Performed By: #### 2 4321-2 ####[facility] LABORATORYCLIA [id number] [place] [address] [place] Urea nitrogen [Mass/Vol] 27 mg/dL High 9-24 [facility] Comment on above: Order Comment: Speci men Type: BLOOD SPECIMENOrdering Facility: [facility] Address: [address] [place] [address] Performed By: #### 2 4321-2 ####[facility]ORATORYCLIA [id number] [place] [address] [place] Anion gap [Moles/Vol] 18 mmol/L High 8-15 [facility] Comment on above: Order Comment: Speci men Type: BLOOD SPECIMENOrdering Facility: [facility] Address: [address] [place] [address] Performed By: #### 2 4321-2, 93129-2, 2777-1 ####[facility] LABORATORYCLIA [id number] [place] [address] [place] Calcium [Mass/Vol] 9.1 mg/dL Normal 8.5-10.2 [facility] Comment on above: Order Comment: Speci men Type: BLOOD SPECIMENOrdering Facility: [facility] Address: [address] [place] [address] Performed By: #### 2 4321-2, , 2776-10 ####[facility]ORYCLIA [id number] [place] [id number] [place] Chloride [Moles/Vol] 102 mmol/L Normal 98-107 [facility] Comment on above: Order Comment: Speci men Type: BLOOD SPECIMENOrdering Facility: [facility] Address: [address] [place] [address] Performed By: #### 2 4321-2, , 2776-10 ####[facility]ATORYCLIA [id number] [place] [id number] [place] CO2 [Moles/Vol] 17 mmol/L Low 22-30 [facility] Comment on above: Order Comment: Speci men Type: BLOOD SPECIMENOrdering Facility: [facility] Address: [address] [place] [address] Performed By: #### 2 4321-2, , 2776-10 ####[facility]ATORYCLIA [id number] [address] [place] Creatinine [Mass/Vol] 0.73 mg/dL Normal 0.73-1.22 [facility] Comment on above: Order Comment: Speci men Type: BLOOD SPECIMENOrdering Facility: [facility] Address: [address] [place] [address] Performed By: #### 2 4321-2, , 2776-10 ####[facility]ORATORYCLIA [id number] [place] [id number] [facility] Creatinine and Glomerular filtration rate.predicted panel (S/P/Bld) 101 mL/min/1.73m??? Normal >=60 [facility] Comment on above: Order Comment: Speci men Type: BLOOD SPECIMENOrdering Facility: [facility] Address: [address] [place] [address] Result Comment: Gege mated Glomerular Filtration Rate (eGFR) is calculated using the 2020 CKD-EPI creatinine equation. This equation utilizes serum creatinine, sex, and age as parameters. The creatinine assay has traceable calibration to isotope dilution-mass spectrometry. Refer to KDIGO guidelines for clinical interpretation. In patients with unstable renal function, e.g. those with acute kidney injury, the eGFR may not accurately reflect actual GFR. Performed By: #### 2 4321-2, , 2776-10 ####[facility]ATORYCLIA [id number] [place] [address] [place] Glucose [Mass/Vol] 151 mg/dL High 74-99 [facility] Comment on above: Order Comment: Porter stearns Type: BLOOD SPECIMENOrdering Facility: [facility] Address: [address] [place] [address] Result Comment: The [place] Diabetes Association (ADA) provides guidance for cutoff values for fasting glucose and random glucose. The ADA defines fasting as no caloric intake for at least 8 hours. Fasting plasma glucose results between 100 to 125 mg/dL indicate increased risk for diabetes (prediabetes). Fasting plasma glucose results greater than or equal to 126 mg/dL meet the criteria for diagnosis of diabetes. In the absence of unequivocal hyperglycemia, results should be confirmed by repeat testing. In a patient with classic symptoms of hyperglycemia or hyperglycemic crisis, random plasma glucose results greater than or equal to 200 mg/dL meet the criteria for diagnosis of diabetes. Reference: Standards of Medical Care in Diabetes 2016, [place] [employer] Association. Diabetes Care. 2016.39(Suppl 1). Performed By: #### 2 4321-2, , 2776-10 ####[facility]ATORYCLIA [id number] [place] [id number] [place] Potassium [Moles/Vol] 4.3 mmol/L Normal 3.7-5.1 [facility] Comment on above: Order Comment: Porter stearns Type: BLOOD SPECIMENOrdering Facility: [facility] Address: [address] [place] [id number] Performed By: #### 2 4321-2, , 2776-10 ####[facility]ORATORYCLIA [id number] [place] [address] [place] Sodium [Moles/Vol] 137 mmol/L Normal 136-144 [facility] Comment on above: Order Comment: Speci men Type: BLOOD SPECIMENOrdering Facility: [facility] Address: [address] [place] [address] Performed By: #### 2 4321-2, , 2776-10 ####[facility]ATORYCLIA [id number] [place] [address] [place] Urea nitrogen [Mass/Vol] 22 mg/dL Normal 9-24 [facility] Comment on above: Order Comment: Speci men Type: BLOOD SPECIMENOrdering Facility: [facility] Address: [address] [place] [address] Performed By: #### 2 4321-2, , 2776-10 ####[facility]ATORYCLIA [id number] [address] [facility] CBC panel Auto (Bld)on 12-21 Erythrocyte distribution width (RBC) [Ratio] 14.0 % Normal 11.5-15.0 [facility] Comment on above: Order Comment: Speci men Type: BLOOD SPECIMENOrdering Facility: [facility] Address: [address] [place] [address] Performed By: #### 5 8410-2 ####[facility]ATORYCLIA [id number] [address] [place] Hematocrit (Bld) [Volume fraction] 41.6 % Normal 39.0-51.0 [facility] Comment on above: Order Comment: Speci men Type: BLOOD SPECIMENOrdering Facility: [facility] Address: [address] [place] [address] Performed By: #### 5 8410-2 ####[facility]ATORYCLIA [id number] [address] [place] Hemoglobin (Bld) [Mass/Vol] 13.6 g/dL Normal 13.0-17.0 [facility] Comment on above: Order Comment: Speci men Type: BLOOD SPECIMENOrdering Facility: [facility] Address: [address] [place] [address] Performed By: #### 5 8410-2 ####[facility]ATORYCLIA [id number] [address] MCH (RBC) [Entitic mass] 31.3 pg Normal 26.0-34.0 [facility] Comment on above: Order Comment: Speci men Type: BLOOD SPECIMENOrdering Facility: [facility] Address: [address] [place] [address] Performed By: #### 5 8410-2 ####[facility]ATORYCLIA [id number] [address] MCHC (RBC) [Mass/Vol] 32.7 g/dL Normal 30.5-36.0 [facility] Comment on above: Order Comment: Speci men Type: BLOOD SPECIMENOrdering Facility: [facility] Address: [address] [place] [address] Performed By: #### 5 8410-2 ####[facility]ATORYCLIA [id number] [address] MCV (RBC) [Entitic vol] 95.6 fL Normal 80.0-100.0 [facility] Comment on above: Order Comment: Speci men Type: BLOOD SPECIMENOrdering Facility: [facility] Address: [address] [place] [address] Performed By: #### 5 8410-2 ####[facility]ATORYCLIA [id number] [address] Nucleated RBC (Bld) [#/Vol] 10*3/uL Normal <0.01 [facility] Comment on above: Order Comment: Speci men Type: BLOOD SPECIMENOrdering Facility: [facility] Address: [address] [place] [address] Performed By: #### 5 8410-2 ####[facility]ATORYCLIA [id number] [address] Platelet mean volume (Bld) [Entitic vol] 10.7 fL Normal 9.0-12.7 [facility] Comment on above: Order Comment: Speci men Type: BLOOD SPECIMENOrdering Facility: [facility] Address: [address] [place] [address] Performed By: #### 5 8410-2 ####[facility]ATORYCLIA [id number] [address] [place] Platelets (Bld) [#/Vol] 200 10*3/uL Normal 150-400 [facility] Comment on above: Order Comment: Speci men Type: BLOOD SPECIMENOrdering Facility: [facility] Address: [address] [place] [address] Performed By: #### 5 8410-2 ####[facility]ATORYCLIA [id number] [address] [place] RBC (Bld) [#/Vol] 4.35 10*6/uL Normal 4.20-6.00 [facility] Comment on above: Order Comment: Speci men Type: BLOOD SPECIMENOrdering Facility: [facility] Address: [address] [place] [address] Performed By: #### 5 8410-2 ####[facility]ATORYCLIA [id number] [address] [place] WBC (Bld) [#/Vol] 11.15 10*3/uL High 3.70-11.00 [facility] Comment on above: Order Comment: Speci men Type: BLOOD SPECIMENOrdering Facility: [facility] Address: [address] [place] [address] Performed By: #### 5 8410-2 ####[facility]ATORYCLIA [id number] [address] [facility] ECHO WITH AGITATED SALINE CO NTRASTon 12-21-2024 ECHO WITH AGITATED SALINE CONTRAST Echocardiography Report: Transthoracic Echo [facility] Date of service: 12/21/2024 10:21:46 [facility] Ordering physician: SHAILESH VIRGEN Indication: Routine surveillance (>1yr) of Heart Failure with no change in clinical status Technologist: Lisa España [facility] Interpreting physician: Ihsan Avila MD PATIENT: Name: MR. FRANK ZIMMER : 1960 Age: 64 years Gender: M History of hypertension, arrhythmia and coronary artery disease. Previous cardiovascular interventions: ICD implant (2019) PCI (2016) Primary rhythm: AV Paced. Height: 195.60 cm BSA: 2.26 m Weight: 94.35 kg BMI: 24.7 kg/m Heart rate 65 bpm Blood pressure 136/64 mmHg Technically difficult exam due to suboptimal positioning, body habitus, bandages/chest tubes/wound and post op. Color Doppler was utilized to interrogate the cardiac valves assessed and spectral Doppler was utilized to determine the flow velocities and pressure gradients reported in this exam. MEASUREMENTS: Value Indexed Normal Max aortic dimension 3.8 cm Ao < 3.8 Left atrial volume 78 ml (biplane A-L) 35 ml/m Akanksha <= 34 Ejection Fraction 45 % (visual est.) EF > 52 FINDINGS: LEFT VENTRICLE The left ventricle is normal in size. There is no left ventricular hypertrophy. Left ventricular systolic function is mildly decreased regionally. Normal left ventricular diastolic function. Mitral annular lateral E/e': 6.5. Mitral annular septal E/e': 8.6. Wall Motion: The basal inferior segment is mildly hypokinetic. All remaining scored segments are normal. RIGHT VENTRICLE The right ventricle is normal in size. Pacer wires are noted in the right ventricle. Right ventricular systolic function is normal. RV systolic tissue Doppler velocity is 14.5 cm/s. Tricuspid annular displacement is 1.2 cm. Estimated right ventricular systolic pressure is not reported due to an insufficient tricuspid regurgitation signal. Estimated right atrial pressure is 3 mmHg based on IVC assessment. LEFT ATRIUM The left atrial cavity is mildly dilated. RIGHT ATRIUM The right atrial cavity is normal in size. Pacer wires are noted in the right atrium. Inferior Vena Cava: The inferior vena cava appears normal measuring 1.6 cm. The vessel decreases greater than 50 percent with inspiration. MITRAL VALVE The mitral valve leaflets are structurally normal. There is no mitral valve regurgitation. The pressure half time is 97 msec. The peak mitral E/A ratio is 0.73. The mitral flow deceleration time is 333 msec. TRICUSPID VALVE The tricuspid valve leaflets are structurally normal. There is trace tricuspid valve regurgitation. AORTIC VALVE The aortic valve was not seen or not interrogated. There is no aortic valve regurgitation. PULMONIC VALVE The pulmonic valve was not seen or not interrogated. AORTA The visualized aorta is normal in size. Measurements - Sinus: 3.8 cm. PULMONARY ARTERIES The pulmonary arteries are unseen or not interrogated. INTERATRIAL SEPTUM There is evidence of intracardiac shunting as detected by agitated saline contrast and agitated saline contrast with valsalva. PERICARDIUM There is no pericardial effusion. CONCLUSIONS: - Technically difficult exam due to suboptimal positioning, body habitus, bandages/chest tubes/wound and post op. - Exam indication: Routine surveillance (>1yr) of Heart Failure with no change in clinical status - The left ventricle is normal in size. There is no left ventricular hypertrophy. Left ventricular systolic function is mildly decreased. EF = 45 - 50% (visual est.) Normal left ventricular diastolic function. The basal inferior segment is mildly hypokinetic - The right ventricle is normal in size. Right ventricular systolic function is normal. - The left atrial cavity is mildly dilated. - Negative bubble study - Exam was compared with the prior CC echocardiographic exam performed on 08/23/2022. EF has improved * * * Final * * * [employer] : [id number] Normal [facility] ICD CLINIC CHECKon 5 AV Delay Adaptive Paced Minimum (ms) 130 ms [facility] AV Delay Adaptive Rate Maximum (bpm) 130 {beats}/min [facility] AV Delay Adaptive Rate Minimum (bpm) 90 {beats}/min [facility] AV Delay Adaptive Sensed Minimum (ms) 100 ms [facility] AV Delay Adaptive Status Medium [facility] AV Delay Paced (ms) 100 ms [facility] AV Delay Sensed (ms) 100 ms [facility] Ole LV Pacing Amplitude (volts) 4.0 V [facility] Ole LV Pacing Polarity BI [facility] Ole LV Pacing Pulse Width (ms) 1.0 ms [facility] Ole RA Pacing Amplitude (volts) 2.0 V [facility] Ole RA Pacing Polarity BI [facility] Ole RA Pacing Pulse Width (ms) 0.8 ms [facility] Ole RA Sensing Amplitude (mvolts) 0.3 mV [facility] Ole RA Sensing Blanking Period (ms) 70 ms [facility] Ole RA Sensing Polarity BI [facility] Ole RA Sensing Refractory Period (ms) 190 ms [facility] Ole RV Pacing Amplitude (volts) 2.0 V [facility] Ole RV Pacing Polarity BI [facility] Ole RV Pacing Pulse Width (ms) 0.5 ms [facility] Ole RV Sensing Amplitude (mvolts) 0.5 mV [facility] Ole RV Sensing Blanking Period (ms) 44 ms [facility] Ole RV Sensing Polarity BI [facility] Detection Configuration (Vent) 2 - Zone [facility] FastVT_Detection Interval 375 ms [facility] FastVT_Therapy Configuration 1 ATP(s) + 0 Shock(s) [facility] ICD FastVT DetectionStatus ENABLED [facility] ICD-AMS EPISODES 180 {beats}/min [facility] ICD-ATP Episodes (Vent) 0 C [facility] ICD-Ole RV Sensing Refractory Period (ms) 250 ms [facility] ICD-Device Mfg STJ [facility] ICD-FALLBACKRATE_BPM 70 {beats}/min [facility] ICD-Hysteresis Rate Off [facility] ICD-Percent Pacing (Atrial) 32.0 % [facility] ICD-Percent Pacing (Vent) 88.0 % [facility] ICD-PMT Intervention Atrial Pace [facility] ICD-PVC Intervention Off [facility] ICD-Rate Modulation Acceleration Reaction Fast [facility] ICD-Rate Modulation Deceleration Medium [facility] ICD-Rate Modulation Galax 8 [facility] ICD-Rate Modulation Threshold Auto (+0.0) [facility] ICD-Rhythm Did not decrease rate [facility] ICD-Shocks Aborted (Vent) 0 [facility] [id number] 0 [facility] ICD-SHOCKSABORTED 0 [facility] ICD-SHOCKSDELIVEREDVENTR ICULAR 0 [facility] ICD-Ventricular Fibrillation 0 [facility] ICD-VVDELAY_MS 0 ms [facility] Lead[address] [facility] Lead2 [facility] Lead[address] [facility] Location LV [facility] Location RA [facility] Location RV [facility] Lower Rate (bpm) 60 {beats}/min [facility] Max Sensor Rate (bpm) 125 {beats}/min [facility] MDT_PROG_TACHY_ZONE_DETE CTIONS_STATUS ENABLED [facility] Model 3369-40C Quadra Assura MP [facility] Model 1457Q [facility] Model 2088TC Tendril STS [facility] Model 7122 Durata [facility] Pacing Mode DDDR [facility] Serial Number [id number] [facility] Serial Number [id number] [facility] Serial Number [id number] [facility] Serial Number [id number] [facility] Test Charge Time 9.125 [facility] Therapy Status (Vent) Enabled [facility] Thresh LV Capture Amplitude (volts) 1.75 V [facility] Thresh LV Capture Duration (ms) 1.0 ms [facility] Thresh RA Capture Amplitude (volts) 1 V [facility] Thresh RA Capture Duration (ms) 0.8 ms [facility] Thresh RA Sensing Amplitude (mvolts) 5.0 mV [facility] Thresh RV Capture Amplitude (VOLTS) 1.0 V [facility] Thresh RV Capture Duration (MS) 0.5 ms [facility] Thresh RV Sensing Amplitude (MVOLTS) 12.0 mV [facility] Tracking Rate (bpm) 130 {beats}/min [facility] VF Zone Detection Interval 375 ms [facility] VF Zone Therapy Configuration 1 ATP(s) + 0 Shock(s) [facility] 12/21/2024 Formattin g of this note might be different from the original. ICD Off/On zuly procedure interrogation. Patient ID verified x 2. Armband on. Order reviewed. Patient seen in pre-op prior to procedure. Pocket/incision without signs or symptoms of infection. No VT/VF events. Patient on monitor with alarms on. ICD tachyarrhythmia therapies (defibrillation therapies) deactivated and pacing set to DOO [address] Jones. Galina Aparicio, ROZINA Patient seen post procedure in PACU post cervical surgery. Patient ID verified x 2. Armband on. ICD tachyarrhythmia therapies reactivated to preprocedure settings. Lead impedances and sensing values stable. Returned back to initial parameters in PACU. RV auto capture test performed/ recommended/ turned back on. Hollis HANDY 2-28-24: Further adjustments made w/ SJM Rep present to return parameters to original parameters. ( DeFT Response Settings) Hollis HANDY NOTE TO PROVIDERS: CARD Flowsheets contain detailed device programming and testing data. Paceart/Interrogation PDF can be found under CARDIAC DATA AND REPORT, Scanned Documents section. [facility] AV Delay Adaptive Paced Minimum (ms) 130 ms [facility] AV Delay Adaptive Rate Maximum (bpm) 130 {beats}/min [facility] AV Delay Adaptive Rate Minimum (bpm) 90 {beats}/min [facility] AV Delay Adaptive Sensed Minimum (ms) 100 ms [facility] AV Delay Adaptive Status Medium [facility] AV Delay Paced (ms) 100 ms [facility] AV Delay Sensed (ms) 100 ms [facility] Ole LV Pacing Amplitude (volts) 4.0 V [facility] Ole LV Pacing Polarity BI [facility] Ole LV Pacing Pulse Width (ms) 1.0 ms [facility] Ole RA Pacing Amplitude (volts) 2.0 V [facility] Ole RA Pacing Polarity BI [facility] Ole RA Pacing Pulse Width (ms) 0.8 ms [facility] Ole RA Sensing Amplitude (mvolts) 0.3 mV [facility] Ole RA Sensing Blanking Period (ms) 70 ms [facility] Ole RA Sensing Polarity BI [facility] Ole RA Sensing Refractory Period (ms) 190 ms [facility] Ole RV Pacing Amplitude (volts) 2.0 V [facility] Ole RV Pacing Polarity BI [facility] Ole RV Pacing Pulse Width (ms) 0.5 ms [facility] Ole RV Sensing Amplitude (mvolts) 0.5 mV [facility] Ole RV Sensing Blanking Period (ms) 44 ms [facility] Ole RV Sensing Polarity BI [facility] Detection Configuration (Vent) 2 - Zone [facility] FastVT_Detection Interval 375 ms [facility] FastVT_Therapy Configuration 1 ATP(s) + 0 Shock(s) [facility] ICD FastVT DetectionStatus ENABLED [facility] ICD-AMS EPISODES 180 {beats}/min [facility] ICD-ATP Episodes (Vent) 0 C [facility] ICD-Ole RV Sensing Refractory Period (ms) 250 ms [facility] ICD-Device Mfg STJ [facility] ICD-FALLBACKRATE_BPM 70 {beats}/min [facility] ICD-Hysteresis Rate Off [facility] ICD-Percent Pacing (Atrial) 32.0 % [facility] ICD-Percent Pacing (Vent) 88.0 % [facility] ICD-PMT Intervention Atrial Pace [facility] ICD-PVC Intervention Off [facility] ICD-Rate Modulation Acceleration Reaction Fast [facility] ICD-Rate Modulation Deceleration Medium [facility] ICD-Rate Modulation Galax 8 [facility] ICD-Rate Modulation Threshold Auto (+0.0) [facility] ICD-Rhythm Did not decrease rate [facility] ICD-Shocks Aborted (Vent) 0 [facility] [id number] 0 [facility] ICD-SHOCKSABORTED 0 [facility] ICD-SHOCKSDELIVEREDVENTR ICULAR 0 [facility] ICD-Ventricular Fibrillation 0 [facility] ICD-VVDELAY_MS 0 ms [facility] Location LV [facility] Location RA [facility] Location RV [facility] Lower Rate (bpm) 60 {beats}/min [facility] Max Sensor Rate (bpm) 125 {beats}/min [facility] MDT_PROG_TACHY_ZONE_DETE CTIONS_STATUS ENABLED [facility] Model 3369-40C Quadra Assura MP [facility] Model 1457Q [facility] Model 2088TC Tendril STS [facility] Model 7122 Durata [facility] Pacing Mode DDDR [facility] Serial Number [id number] [facility] Serial Number [id number] [facility] Serial Number [id number] [facility] Serial Number [id number] [facility] Test Charge Time 9.125 [facility] Therapy Status (Vent) Enabled [facility] Thresh LV Capture Amplitude (volts) 1.75 V [facility] Thresh LV Capture Duration (ms) 1.0 ms [facility] Thresh RA Capture Amplitude (volts) 1 V [facility] Thresh RA Capture Duration (ms) 0.8 ms [facility] Thresh RA Sensing Amplitude (mvolts) 5.0 mV [facility] Thresh RV Capture Amplitude (VOLTS) 1.0 V [facility] Thresh RV Capture Duration (MS) 0.5 ms [facility] Thresh RV Sensing Amplitude (MVOLTS) 12.0 mV [facility] Tracking Rate (bpm) 130 {beats}/min [facility] VF Zone Detection Interval 375 ms [facility] VF Zone Therapy Configuration 1 ATP(s) + 0 Shock(s) [facility] 12/21/2024 Formattin g of this note might be different from the original. ICD Off/On zuly procedure interrogation. Patient ID verified x 2. Armband on. Order reviewed. Patient seen in pre-op prior to procedure. Pocket/incision without signs or symptoms of infection. No VT/VF events. Patient on monitor with alarms on. ICD tachyarrhythmia therapies (defibrillation therapies) deactivated and pacing set to DOO [address] Jones. Galina Aparicio, RN Patient seen post procedure in PACU post cervical surgery. Patient ID verified x 2. Armband on. ICD tachyarrhythmia therapies reactivated to preprocedure settings. Lead impedances and sensing values stable. Returned back to initial parameters in PACU. RV auto capture test performed/ recommended/ turned back on. Hollis HANDY 12-21-23: Further adjustments made w/ SJM Rep present to return parameters to original parameters. ( DeFT Response Settings) Hollis HANDY NOTE TO PROVIDERS: CARD Flowsheets contain detailed device programming and testing data. Paceart/Interrogation PDF can be found under CARDIAC DATA AND REPORT, Scanned Documents section. [facility] Magnesium SerPl-mCncon 12-21 Magnesium [Mass/Vol] 1.7 mg/dL Normal 1.7-2.3 [facility] Comment on above: Order Comment: Speci men Type: BLOOD SPECIMENOrdering Facility: [facility] Address: [address] [place] [address] Performed By: #### 2 4321-2, 54242-0, 2777-1 ####[facility] LABORATORYCLIA [id number] [address] [place] NUTRITIONon 12-21-2024 NUTRITION HNO ID: [id number] Author: ANGELIKA VALENZUELA RD Service: Nutrition Therapy Author Type: Registered Dietitian Type: Nutrition Filed: 12/21/2024 12:53 Note Text: NUTRITION THERAPY SCREEN NOTE SERVICE DATE: 12/21/2024 SERVICE TIME: 1240 Care Plan: Change diet to Carbohydrate Consistent Discharge Recommendations: Diet Diet: Carbohydrate Consistent, heart healthy Monitor and Evaluation: Meet greater than 75% of estimated needs Intake History: Nutrition Intake Prior to Admission: Greater than 75% estimated energy needs greater than or equal to 1 month 100% meal intake. Great appetite. Intentional wt loss over the past couple years, most recently 13 lbs since February 2024. Diet Orders (From admission, onward) Start Ordered 12/21/2444 DIET REGULAR START NOW 12/21/2441 Anthropometrics: Height: 195.6 cm (6' 5) Weight: 93.9 kg (207 lb 0.2 oz) Usual Weight: 117.9 kg (260 lb) 2021 Weight change percentage over time: 5.9% wt loss x 9 months, all weight loss intentional Weight Change: Not clinically significant weight loss MNT Billing: $ Initial Assessment: 1-15 minutes SIGNATURE: Angelika Valenzuela RD PATIENT NAME: Frank Zimmer DATE: December 21, 2024 TIME: 12:50 PM Normal [facility] No Panel Informationon 12-21 [facility] _ [facility] Implant Date 11/23/2019 [facility] BLANK _ [facility] Implant Date 11/23/2019 [facility] Phosphate SerPl-mCncon 12-21 Phosphate [Mass/Vol] 4.2 mg/dL Normal 2.7-4.8 [facility] Comment on above: Order Comment: Speci men Type: BLOOD SPECIMENOrdering Facility: [facility] Address: [address] [place] [address] Performed By: #### 2 4321-2, 77373-3, 2777-1 ####[facility]ORATORYCLIA [id number] [address] [facility] THERAPY NTon 12-21-2024 THERAPY NT HNO ID: [id number] Author: PATRICK MCCORMACK OTR/L Service: Occupational Therapy Author Type: Occupational Therapist Type: Therapy (PT/OT/Speech/Resp) Filed: 12/21/2024 13:46 Note Text: Occupational Therapy Evaluation Summary SERVICE DATE: 12/21/2024 SERVICE TIME: 1105 to 1140 ROOM: [id number] OT 6 Clicks Score: 13 DISCHARGE RECOMMENDATIONS Acute Rehab Recommended Discharge Disposition Comments: Pt highly independent with ADLs with new neck surgery and neurological deficits Recommended Discharge Disposition Due to: Patient requires active, intensive rehabilitation by multiple therapy disciplines. Anticipate the patient will tolerate 3 hours of therapy per day., ADL impairment, Requires multiple therapy disciplines, Functional status decline ASSESSMENT Response to Therapy Interventions: Good Participation in Activities, Improved Tolerance for Activity, Multiple Ongoing Medical Issues Pt would benefit from intensive level therapies, improving function prior to surgery and highly motivated Pt provided built up handles and trialed oral hygiene, pt is able to complete without built up handles. Pt rpts using palmar hand director of physiotherapy services on utensil when feeding. Pt able to complete washing his face, therapist heavily assists to wash his glasses. Provided foam blocks, educated and practiced fine motor control ex at tray table for B UEs. Assisted to static stand from chair and sit back in chair, repositioned for comfort. PRECAUTIONS Fall Risk, Spine, Brace [place] CURRENT HOSPITAL COURSE Patient with altered sensation R side, R leg weak. Pain with lifting. progressingve myelopathy and severe central cord syndrome. s/p C2-T1 PSFI on 12/20/24. Relevant Past Medical History: CAD and V. tach HOME LIVING Patient Lives With: Spouse, Family Assistance Available: 24-Hour Entry To Home: Stairs Number Of Stairs Into Home: 3 Number Of Stairs To Bed/Bath: 0 Tub/Shower Type: tub/shower and stall with grab bars/seat Laundry: basement, does Equipment Owned: Wheelchair- Manual, Walker- Wheeled, Cane, Shower Chair, Grab Bars- Shower, Grab Bars- Toilet (eliptical) PRIOR FUNCTIONAL LEVEL Within Functional Limits Pt has been using a W/C for a month previously used walker. helped with most ADLs but pt able to toilet himself with effort. SUBJECTIVE Pt agreeable to OT, very pleasant and cooperative COGNITION Responsiveness: Alert, Awake Follows Commands: 2-step Commands Executive Function Deficits: Safety Awareness, Insight to Deficits, Judgement, Problem Solving THERAPY DIAGNOSIS Reduced mobility-other, Decreased activities of daily living (ADL), Muscle Weakness (generalized), Unsteadiness on feet, Abnormalities of gait and mobility-other TREATMENT INTERVENTIONS Evaluation, Self Long Term Management (57955) Timed Code Treatment (minutes): 18 Skilled Treatment Time (minutes): 35 $ Evaluation - Moderate (99201) Billed Units: 1 unit Self Long Term Management (45257) Treatment Minutes: 18 $ Self Long Term Management (62148) Billed Units: 1 unit TRAINING AND EDUCATION PROVIDED Bed Mobility, Adaptive Equipment/DME, Assistive Device Use, Functional Mobility Involving ADLs, Grooming Tasks, Expected Functional Level, Fine Motor Coordination, Feeding Tasks, Role of Occupational Therapy, Sitting Balance to Improve [place] with ADLs/Self-Care, Standing Balance to Improve [place] with ADLs/Self-Care, Transfer - Sit to Stand THERAPEUTIC SKILLS USED Activity Dosing, Cues for Sequencing/Proper Technique for Activity, Cuing Tactile, Cuing Verbal, Cuing Visual, Physical Assist, Therapeutic Use of Self FUNCTIONAL STATUS Activities of Daily Living Assist Level Additional Information Feeding Minimal Assistance Grooming Moderate Assistance Bathing Upper Body Moderate Assistance Bathing Lower Body Maximal Assistance Dressing Upper Body Moderate Assistance Dressing Lower Body Maximal Assistance Toileting Maximal Assistance Mobility Assist Level Additional Information Bed Mobility Supine To Sit: Moderate Assistance Sit To Supine: Moderate Assistance Sit to Stand Stand to Sit Bed to Chair Toilet/Commode Shower Functional Mobility Range of Motion: Functional ROM Within Precautions Strength: Strength Limitation Comments Strength Limitation Comments: NT at fulll MMT due to spinal surgery but hands 4/5 B and proximally at 4-/5, NT formally at the shoulders Coordination Deficits: In hand manipulation, Finger opposition Finger Opposition Impairment: Right Hand Manipulation Impairment: Right BALANCE Static Sitting Balance: Fair Dynamic Sitting Balance: Fair Static Standing Balance: Poor Dynamic Standing Balance: Poor GOALS Feeding with: Modified Independent Grooming with: Contact Guard Assistance Upper Body Bathing with: Contact Guard Assistance Upper Body Dressing with: Contact Guard Assistance Lower Body Bathing with: Minimal Assistan (more content not included)... Normal [facility] THERAPY NT HNO ID: [id number] Author: CAT OROURKE, PT Service: Physical Therapy Author Type: Physical Therapist Type: Therapy (PT/OT/Speech/Resp) Filed: 12/21/2024 10:56 Note Text: Physical Therapy Evaluation Summary SERVICE DATE: 12/21/2024 SERVICE TIME: 824 to 904 ROOM: [place] [address] PT 6 Clicks Score: 10 DISCHARGE RECOMMENDATIONS Acute Rehab Recommended Discharge Disposition Comments: Patient with progressive cervical myelopahty and severe central cord syndrome. Now s/p cervical spine surgery. Continues to have deficits in strenth balance and functional mobility related to current illness. Will need 3 hours of intensive rehab in acute rehab setting. Recommended Discharge Disposition Due to: Patient requires active, intensive rehabilitation by multiple therapy disciplines. Anticipate the patient will tolerate 3 hours of therapy per day., Functional deficits requiring ongoing therapy service prior to discharge home., Balance deficits, Functional status decline, Requires multiple therapy disciplines ASSESSMENT Response to Therapy Interventions: Good Participation in Activities, Pain PRECAUTIONS Fall Risk, Spine, Brace Brandy Zheng CURRENT HOSPITAL COURSE Patient with altered sensation R side, R leg weak. Pain with lifting. progressingve myelopathy and severe central cord syndrome. s/p C2-T1 PSFI on 12/20/24. Relevant Past Medical History: CAD and Richie mack HOME LIVING Patient Lives With: Spouse, Family Assistance Available: 24-Hour Entry To Home: Stairs Number Of Stairs Into Home: 3 Number Of Stairs To Bed/Bath: 0 Tub/Shower Type: tub shower Equipment Owned: Wheelchair- Manual, Walker- Wheeled, Cane PRIOR FUNCTIONAL LEVEL Within Functional Limits Patient typically completely independent prior to currentl SUBJECTIVE Agreeable to PT session THERAPY DIAGNOSIS Reduced mobility-other TREATMENT INTERVENTIONS Evaluation, Therapeutic Activity (60430) $ Evaluation-Moderate (57041) Billed Units: 1 unit Therapeutic Activity (85011) Treatment Minutes: 25 $ Therapeutic Activity (76269) Billed Units: 2 units Educated patient on spine precautions (BLT): no bending, lifting >8-10 lbs, and no twisting. Educated patient on use of log roll into/out of bed to maintain neutral spine alignment and discourage twisting at trunk. Encouraged change of position, sitting up in chair and limiting time spent in bed to aid in optimal healing. Cues for safe transfers and mobility noted in grid below Timed Code Treatment (minutes): 25 Skilled Treatment Time (minutes): 40 TRAINING AND EDUCATION PROVIDED Assistive Device Use, Bed Mobility, Benefits of In-Hospital Mobility, Discharge Planning, Disease Specific Education, Expected Functional Level, Equipment, Gait Pattern, Reduction of Deviations, Precautions/Restrictions, Pre-gait Activities, Sitting Balance, Role of Physical Therapy, Standing Balance, Transfers THERAPEUTIC SKILLS USED Cues for Sequencing/Proper Technique for Activity, Cuing Tactile, Cuing Verbal, Cuing Visual, Muscle Activation Facilitation, Physical Assist, Postural Alignment Correction, Movement Facilitation FUNCTIONAL STATUS Bed Mobility Rolling: Moderate Assistance, Additional Information Cues for log rolling technique to move toward EOB Supine To Sit: Moderate Assistance, Additional Information Cues to push up with UEs to get to sitting position. Cues to sit up tall and maintain balance with feet on the floor Transfers Sit To Stand: Moderate Assistance, Additional Information (x2) Initially required maxAx1 to stand at wheeled walker noted to have some quad weakness and poor balance with standing at the walker. Asisted patient to sit. ABle to stand without walker with modAx2 and PT on R side to prevent R knee blocking Stand To Sit: Moderate Assistance, Additional Information (x2) Cues to make sure legs are touching the chair and to reach back and sit slowly Bed to Chair Moderate Assistance, Additional Information (x2) Bed To Chair Transfer Type: Stepping Bed To Chair Transfer Equipment: Gait Belt During transfer, PT instructed patient to take steps toward the chair. Assisted with balance, required R knee block with WB on R leg during stepping. PT and RN assisted with balance during transfer. Gait Stairs ROM WFL STRENGTH Right Shoulder Elevation Strength: 3 Right Elbow Flexion Strength: 3 Right Elbow Extension Strength: 3 Right Caseworker Intake Strength: 2 Right Hip Flexion Strength: 3+ Right Knee Flexion Strength: 3+ Right Knee Extension Strength: 4+ Right Ankle Dorsiflexion Strength: 5 Left Shoulder Elevation Strength: 3 Left Elbow Flexion Strength: 3 Left Elbow Extension Strength: 3 Left Wrist Strength: 3 Left Caseworker Intake Strength: 3 Left Hip Flexion Strength: 5 Left Knee Flexion Strength: 5 Left Knee Extension Strength: 5 Left Ankle Dorsiflexion Strength: 5 BALANCE Static Sitting Balance: Good Dynamic Sitting Balance: Fair Stati (more content not included)... Normal [facility] XR CERVICAL 2V AP/LATon 02-2 XR CERVICAL 2V AP/LAT * * *Final Report* * * DATE OF EXAM: Dec 21 2024 3:26PM [id number] - XR CERVICAL 2V AP/LAT / PROCEDURE REASON: Post-operative / post-procedure assessment, asymptomatic * * * * Physician Interpretation * * * * EXAM TITLE: X-RAY CERVICAL SPINE DATE: 11/25/2024 CLINICAL INDICATION/HISTORY: Postoperative assessment COMPARISON: CT cervical spine 12/19/2024 TECHNIQUE: AP and lateral views of the cervical spine. FINDINGS: Decompressive posterior decompression with laminectomies from approximately C3-C7. There are bilateral pedicle screws at C2-C6 and at T1 with cortical bridging rodding. No acute fracture. Multiple anterior marginal osteophytes. Skin sola along the soft tissues posteriorly. IMPRESSION: Postoperative changes of posterior decompression and fusion from C2 through T1 levels. Cell Pourer[facility] Transcribe Date/Time: Dec 21 2024 4:11P Dictated by : CAMDEN ORTEGA MD This examination was interpreted and the report reviewed and electronically signed by: CAMDEN ORTEGA MD on Dec 21 2024 4:16PM EST [id number] Normal [facility] XR CHEST 1V FRONTALon 2024 XR CHEST 1V FRONTAL * * *Final Report* * * DATE OF EXAM: Dec 21 2024 3:26PM [id number] - XR CHEST 1V FRONTAL / PROCEDURE REASON: Shortness of breath * * * * Physician Interpretation * * * * EXAMINATION: CHEST RADIOGRAPH (SINGLE VIEW AP OR PA) CLINICAL HISTORY: Shortness of breath MQ: XC1_5 Comparison: Chest x-ray 12/20/2024 RESULT: Lines, tubes, and devices: Left chest pacemaker with leads profiling right atrium, right ventricle and coronary sinus. Lungs and pleura: No consolidation. No lung mass. No pleural effusion. Cardiomediastinal silhouette: Normal cardiomediastinal silhouette. Other: None postsurgical changes in the lower cervical spine. IMPRESSION: No acute radiographic abnormality. Cell Pourer[facility] Transcribe Date/Time: Dec 21 2024 4:00P Dictated by : CAMDEN ORTEGA MD This examination was interpreted and the report reviewed and electronically signed by: CAMDEN ORTEGA MD on Dec 21 2024 4:02PM EST [id number] Normal [facility] ANES PRE-OPon 12-20-2024 ANES PRE-OP HNO ID: [id number] Author: DEIDRA JONES MD Service: Anesthesiology Author Type: Physician Type: Anesthesia Preprocedure Evaluation Filed: 12/20/2024 13:01 Note Text: ANESTHESIOLOGY DAY OF SURGERY NOTE : 1960 Procedure Information Date/Time: 12/20/24 1315 Procedure: POSTERIOR SEGMENTAL INSTRUMENTATION FOLLOWING THORACIC FUSION 3-6 LEVELS (Spine Cervical) Location: [facility] OR OR Surgeons: Ponce Machado MD Estimated body mass index is 24.67 kg/m? as calculated from the following: Height as of this encounter: 195.6 cm (6' 5). Weight as of this encounter: 94.3 kg (208 lb). Most recent hematocrit and potassium results: Hematocrit 44.6 12/18/2024 Potassium 4.5 12/18/2024 Relevant Problems CARDIO (+) Coronary artery disease involving [place] coronary artery of [place] heart without angina pectoris I - PHYSICAL EVALUATION AIRWAY Patient intubated: No. Tracheostomy tube not present Mallampati: II. TM distance: >3 FB. Neck ROM: full ROM without neurological symptoms. Mouth opening: adequate. Short neck: no. Thick neck: no DENTAL Dental findings: missing tooth/teeth, poor dentition, broken tooth and chipped. II - ANESTHESIA PLAN ASA Score: 4 Anesthetic Plan: general Airway type: ETT The patient is not a current smoker. NPO Status: adequate Beta Hardik Administration of chronic beta hardik medication planned. Monitoring Plan Monitoring plan: standard ASA and invasive hemodynamic monitoring. Monitoring method: arterial Line Post Procedure Analgesic Plan Postoperative analgesic plan: multimodal analgesia. Informed Consent Anesthetic risks, benefits, alternatives, personnel and consent discussed: yes. Patient / Responsible Democrat agrees to proceed: yes Patient / Surrogate agrees to blood products: Yes Significant changes in the patient condition since the History and Physical, not otherwise documented in primary service progress note: no. Potential Anesthesia issues that may suggest increased risk of complications or contraindication to planned procedure: none. Vitals Value Taken Time BP 131/64 12/20/24 1259 Pulse 64 12/20/24 1256 Resp 18 12/20/24 1256 Temp 36.9 ?C (98.4 ?F) 12/20/24 1257 SpO2 91 % 12/20/24 1257 Vitals shown include unfiled device data. Facility-Administered Medications as of 12/20/2024 Medication Dose Route Frequency - [Transfer Hold] cetirizine 10 mg tab(s) (ZYRTEC) 10 mg ORAL DAILY - [COMPLETED] fentaNYL 50 mcg/mL 50 mcg injection (SUBLIMAZE) 50 mcg INTRAVENOUS ONCE - [Transfer Hold] acetaminophen 650 mg tab(s) (TYLENOL) 650 mg ORAL q 6 H PRN - [Transfer Hold] traMADol 50 mg tab(s) (ULTRAM) 50 mg ORAL q 8 H PRN - [Transfer Hold] amiodarone 200 mg tab(s) (PACERONE) 200 mg ORAL DAILY - [Transfer Hold] lisinopril 40 mg tab(s) (ZESTRIL) 40 mg ORAL DAILY - [Transfer Hold] carvedilol 25 mg tab(s) (COREG) 25 mg ORAL BID w MEALS - [Transfer Hold] rosuvastatin 40 mg tab(s) (CRESTOR) 40 mg ORAL AT BEDTIME - [Transfer Hold] NaCl 0.9% iv flush bag 20 mL INTRAVENOUS PRN - [Transfer Hold] dextrose 15 gram/32 mL 15 g (TRUEPLUS) 15 g ORAL PRN Or - [Transfer Hold] glucagon 1 mg injection 1 mg INTRAMUSCULAR PRN Or - [Transfer Hold] dextrose 10% iv bolus 12.5 g INTRAVENOUS PRN - [Transfer Hold] insulin lispro injection (rapid acting) (ADMElog) SUBCUTANEOUS w MEALS - [Transfer Hold] sodium chloride 0.65 % 2 [place] 2 [place] EACH NOSTRIL PRN - [Transfer Hold] guaiFENesin 600 mg ER tab(s) (MUCINEX) 600 mg ORAL q 12 H PRN Outpatient Medications as of 12/20/2024 Medication Sig - aspirin, enteric coated (ASPIRIN, ENTERIC COATED) 81 mg EC tablet Take 81 mg by mouth once daily. - carvedilol (COREG) 25 mg tablet Take 1 (one) Tablet by mouth two times daily - JARDIANCE 25 mg tablet Take 25 mg by mouth daily with breakfast. - furosemide (LASIX) 20 mg tablet Take 20 mg by mouth once daily. - lisinopril (ZESTRIL, PRINIVIL) 40 mg tablet Take 40 mg by mouth once daily. - metFORMIN ER (GLUCOPHAGE XR) 500 mg 24 hr tablet Take 500 mg by mouth twice daily. - rosuvastatin (CRESTOR) 40 mg tablet TAKE 1 TABLET BY MOUTH EVERY DAY nightly I have interviewed and examined the patient. I have reviewed the medical record and/or the pre-anesthesia evaluation, pertinent labs, and test results. This contains updated information obtained within 48 hours of Surgery/Procedure. SIGNATURE: Deidra Jones MD PATIENT NAME: Frank Zimmer DATE: December 20, 2024 TIME: 1:00 PM CSN: [id number] Normal [facility] CBC panel Auto (Bld)on 12-20 Erythrocyte distribution width (RBC) [Ratio] 14.0 % Normal 11.5-15.0 [facility] Comment on above: Order Comment: Speci men Type: BLOOD SPECIMENOrdering Facility: [facility] Address: [address] [place] [address] Performed By: #### 5 8410-2 ####[facility]ATORYCLIA [id number] [address] [facility] Hematocrit (Bld) [Volume fraction] 42.5 % Normal 39.0-51.0 [facility] Comment on above: Order Comment: Speci men Type: BLOOD SPECIMENOrdering Facility: [facility] Address: [address] [place] [address] Performed By: #### 5 8410-2 ####[facility]ATORYCLIA [id number] [address] [facility] Hemoglobin (Bld) [Mass/Vol] 14.2 g/dL Normal 13.0-17.0 [facility] Comment on above: Order Comment: Speci men Type: BLOOD SPECIMENOrdering Facility: [facility] Address: [address] [place] [address] Performed By: #### 5 8410-2 ####[facility]ATORYCLIA [id number] [address] [place] MCH (RBC) [Entitic mass] 31.9 pg Normal 26.0-34.0 [facility] Comment on above: Order Comment: Speci men Type: BLOOD SPECIMENOrdering Facility: [facility] Address: [address] [place] [address] Performed By: #### 5 8410-2 ####[facility]ORYCLIA [id number] [address] [place] MCHC (RBC) [Mass/Vol] 33.4 g/dL Normal 30.5-36.0 [facility] Comment on above: Order Comment: Speci men Type: BLOOD SPECIMENOrdering Facility: [facility] Address: [address] [place] [address] Performed By: #### 5 8410-2 ####[facility]ORYCLIA [id number] [address] [facility] MCV (RBC) [Entitic vol] 95.5 fL Normal 80.0-100.0 [facility] Comment on above: Order Comment: Speci men Type: BLOOD SPECIMENOrdering Facility: [facility] Address: [address] [place] [address] Performed By: #### 5 8410-2 ####[facility]ORYCLIA [id number] [address] [place] Nucleated RBC (Bld) [#/Vol] 10*3/uL Normal <0.01 [facility] Comment on above: Order Comment: Speci men Type: BLOOD SPECIMENOrdering Facility: [facility] Address: [address] [place] [address] Performed By: #### 5 8410-2 ####[facility]ORYCLIA [id number] [address] Platelet mean volume (Bld) [Entitic vol] 10.7 fL Normal 9.0-12.7 [facility] Comment on above: Order Comment: Speci men Type: BLOOD SPECIMENOrdering Facility: [facility] Address: [address] [place] [address] Performed By: #### 5 8410-2 ####[facility]ORYCLIA [id number] [address] Platelets (Bld) [#/Vol] 164 10*3/uL Normal 150-400 [facility] Comment on above: Order Comment: Speci men Type: BLOOD SPECIMENOrdering Facility: [facility] Address: [address] [place] [address] Performed By: #### 5 8410-2 ####[facility]ORYCLIA [id number] [address] [place] RBC (Bld) [#/Vol] 4.45 10*6/uL Normal 4.20-6.00 [facility] Comment on above: Order Comment: Speci men Type: BLOOD SPECIMENOrdering Facility: [facility] Address: [address] [place], [place] [address] Performed By: #### 5 8410-2 ####[facility]ATORYCLIA [id number] [address] WBC (Bld) [#/Vol] 10.51 10*3/uL Normal 3.70-11.00 [facility] Comment on above: Order Comment: Speci men Type: BLOOD SPECIMENOrdering Facility: [facility] Address: [address] [place], [place] [address] Performed By: #### 5 [id number] ####[facility]ATORYCLIA [id number] [address] CONSULT PROGon 12-20-2024 CONSULT PROG HNO ID: [id number] Author: MICHAEL QUEEN APRN.PROJECT SYSTEMS ENGINEER Service: Neurosurgery Author Type: Nurse Practitioner Type: Consult Progress Note Filed: 12/20/2024 11:55 Note Text: Neurosurgery Progress Note SERVICE DATE: 12/20/2024 SUBJECTIVE: Patient with stable myelopathy. Discussed surgery with him and family at bedside. OBJECTIVE: Vitals: Temp (24hrs), Av.9 ?C (98.5 ?F), Min:36.5 ?C (97.7 ?F), Max:37.3 ?C (99.1 ?F) BP 147/79 Pulse 73 Temp 36.8 ?C (98.3 ?F) (Oral) Resp 18 Ht 195.6 cm (6' 5) Wt 94.3 kg (208 lb) SpO2 92% BMI 24.67 kg/m? O2 Therapy: Room Air IANDO: Date 12/19/24699 - 12/20/2465812/20/24699 - 12/21/24 0659 Shift 7088-6906 7106-1127 9381-8982 24 Hour Total 8805-1647 0707-6913 7049-1160 24 Hour Total INTAKE Shift Total OUTPUT Urine 150 150 Void (ml) 150 150 Shift Total 150 150 Weight (kg) 94.3 94.3 94.3 94.3 94.3 94.3 94.3 94.3 Medications: Current Facility-Administered Medications Medication Dose Route Frequency cetirizine 10 mg tab(s) (ZYRTEC) 10 mg ORAL DAILY acetaminophen 650 mg tab(s) (TYLENOL) 650 mg ORAL q 6 H PRN traMADol 50 mg tab(s) (ULTRAM) 50 mg ORAL q 8 H PRN amiodarone 200 mg tab(s) (PACERONE) 200 mg ORAL DAILY lisinopril 40 mg tab(s) (ZESTRIL) 40 mg ORAL DAILY carvedilol 25 mg tab(s) (COREG) 25 mg ORAL BID w MEALS rosuvastatin 40 mg tab(s) (CRESTOR) 40 mg ORAL AT BEDTIME NaCl 0.9% iv flush bag 20 mL INTRAVENOUS PRN dextrose 15 gram/32 mL 15 g (TRUEPLUS) 15 g ORAL PRN Or glucagon 1 mg injection 1 mg INTRAMUSCULAR PRN Or dextrose 10% iv bolus 12.5 g INTRAVENOUS PRN insulin lispro injection (rapid acting) (ADMElog) SUBCUTANEOUS w MEALS sodium chloride 0.65 % 2 [place] 2 [place] EACH NOSTRIL PRN guaiFENesin 600 mg ER tab(s) (MUCINEX) 600 mg ORAL q 12 H PRN Labs: Recent Labs 12/18/24 1452 12/18/24 1245 NA -- 139 K -- 4.5 CHLOR -- 105 CO2 -- 25 BUN -- 15 CREAT -- 0.65* GLUC -- 96 ANION -- 9 CA -- 9.4 WBC 8.44 -- HB 14.7 -- HCT 44.6 -- PLT 173 -- Imaging: IMPRESSION: 1. Severe degenerative disc and osteoarthritic changes leading to very severe degree of central canal stenosis and neural foraminal most severe at C6-7. Correlation with MRI to assess condition of spinal cord is recommended. 2. No acute findings otherwise. Cell Pourer: CHINO Transcribe Date/Time: Dec 19 2024 7:07A Exam: GENERAL: No distress, Alert NEURO: Neuro : A+O x3, PERRL, makes eye contact, speech clear, cranial nerves 2-12 grossly intact , QUINN, Motor Atrophy of right hand, right quadriceps decreased cervical range of motion Right Left Deltoid 5 5 Triceps 5 5 Biceps 4 5 Intrinsic 3 5 Caseworker Intake 4 5 Hoffmans + + Right Left Hip flexion 4- 5 Knee flexion 3 5 Knee extension 3 5 Plantarflexion 4 5 Dorsiflexion 4 5 Clonus + + HEENT: normocephalic, atraumatic NECK/BACK:reduced ROM LUNGS: Unlabored breathing CARDIAC: Regular rate and rhythm as above ABDOMEN: Soft, non-tender, non-distended EXTREMITIES: QUINN, No deformities, No edema SKIN: Skin color, texture, turgor normal, No rashes or lesions ASSESSMENT AND PLAN: Active Hospital Problems Diagnosis Date Noted Cervical stenosis of spinal canal 12/19/2024 Cervical stenosis of spine 12/20/2024 Preop cardiovascular exam 12/19/2024 VT (ventricular tachycardia) (HCC) 08/22/2022 Frank Zimmer is a 64 year old male PMH Vtach s/p pacer, cardiac stent on ASA81 who presented with worsening of myelopathic symptoms. - Neuro as above - NPO now - Plan for surgery Today at 2pm - Moderate to high risk per Cards, Hold ASA at this time - MRI reviewed DVT Prophylaxis: ok for SQH, will need to stop tonight at midnight with SCDs only Discussed with staff: Dr. Mcdermott Portions of text from this note were copied. All relevant information was reviewed and updated accordingly on 12/20/2024 SIGNATURE: Michael Queen APRN.CNP PATIENT NAME: Frank Zimmer DATE: December 20, 2024 TIME: 11:43 AM Michael Queen APRN.CNP To contact Page Neurosurgery ALEXANDRO Neurosurgery ALEXANDRO Pager: [phone] Normal [facility] HISTORY PHYSICALon HISTORY PHYSICAL HNO ID: [id number] Author: SHAILESH VIRGEN APRN.CNP Service: Neurology ICU Author Type: Nurse Practitioner Type: H&P Filed: 12/20/2024 18:00 Note Text: SERVICE DATE: 12/20/2024 SERVICE TIME: 5:59 PM NEUROLOGICAL INTENSIVE CARE UNIT HISTORY AND PHYSICAL REASON FOR ADMISSION: S/p surgical decompression of C6-C7, MAP augmentation Subjective HPI: Frank Zimmer is a 64 year old male PMH Vtach s/p pacer, cardiac stent in 2017 on ASA81, T2DM who presented for evaluation of spinal pathology. Patient endorses 3 years of difficulty with right sided fine motor skills and low back pain radiating to right leg needing a cane to ambulate, both worsened in last 1.5 months and now involving left side. At that time patient began to need a walker, and then 1 month ago began using wheelchair. He also endorses paresthesias in arms, worse in hands. He was sent to Dr Ramon Call at [facility] who worked this up. Patient states office was supposed to call Tuesday to direct admit him for surgery , but instead called saying it was not safe to undertake surgery at [facility] and he should go to [facility]. On 12/20 the patient underwent surgical decompression of C6-C7 done by Dr Mcdermott. He is admitted to the Neuro ICU for MAP augmentation. PAST MEDICAL HISTORY Diagnosis Date CAD (coronary artery disease) V-tach (HCC) PAST SURGICAL HISTORY Procedure Laterality Date INSERT/REPL DEFIB LEAD/GENER OTHR PAST SURGICAL HISTORY OF WARTS RIGHT FOOT PAST SURGICAL HISTORY OF NASAL SURGERY PCI/STENT FAMILY HISTORY Problem Relation Age of Onset Diabetes Father Heart Father HEART DISEASE Heart Mother VALVE REPAIRED Hypertension Mother ALLERGIES Allergen Reactions Bees ANAPHALACTIC REACTION Morphine Vomiting PRIOR TO ADMISSION MEDICATIONS: amiodarone 400 mg tablet, Take 1 tablet by mouth once daily., Disp: 90 tablet, Rfl: 0 aspirin, enteric coated (ASPIRIN, ENTERIC COATED) 81 mg EC tablet, Take 81 mg by mouth once daily., Disp: , Rfl: carvedilol (COREG) 25 mg tablet, Take 1 (one) Tablet by mouth two times daily, Disp: , Rfl: JARDIANCE 25 mg tablet, Take 25 mg by mouth daily with breakfast., Disp: , Rfl: furosemide (LASIX) 20 mg tablet, Take 20 mg by mouth once daily., Disp: , Rfl: lisinopril (ZESTRIL, PRINIVIL) 40 mg tablet, Take 40 mg by mouth once daily., Disp: , Rfl: metFORMIN ER (GLUCOPHAGE XR) 500 mg 24 hr tablet, Take 500 mg by mouth twice daily., Disp: , Rfl: rosuvastatin (CRESTOR) 40 mg tablet, TAKE 1 TABLET BY MOUTH EVERY DAY nightly, Disp: , Rfl: Social History Tobacco Use Smoking status: Never Substance Use Topics Alcohol use: Never Drug use: Never Employer And Job Title: None on file Years Of Education Completed: Not specified Marital Status: REVIEW OF SYSTEMS: COMPLETE REVIEW OF SYSTEMS PAIN ASSESSMENT: CURRENTLY HAVING PAIN; see HPI Negative for pain, history of chronic pain, or current treatment for a chronic pain condition GENERAL: No weight loss, malaise or fevers HEENT: No changes in hearing or vision, no nose bleeds or other nasal problems. NECK: neck pain RESPIRATORY: Negative for cough, wheezing or shortness of breath. CARDIOVASCULAR: Negative for chest pain, leg swelling or palpitations. GI: Negative for abdominal discomfort, blood in stools or black stools or change in bowel habits. : No history of dysuria, frequency or incontinence. DRAIN CLEANER: N/A MUSCULOSKELETAL: Arthritis, Back pain, and Muscular weakness SKIN: Negative for lesions, rash, and itching. PSYCH: Negative for sleep disturbance, mood disorder and recent psychosocial stressors. HEMATOLOGY/LYMPHOLOGY: Negative for prolonged bleeding, bruising easily or swollen nodes. ENDOCRINE: Not reviewed ALLERGIC/IMMUNOLOGIC: Negative for autoimmune diseases and allergies. NEURO: SEE HPI Objective Vital Signs (Last 24hrs min/max): BP 159/91 Pulse 82 Temp 36 ?C (96.8 ?F) (Temporal) Resp 17 Ht 195.6 cm (6' 5) Wt 94.3 kg (208 lb) SpO2 96% BMI 24.67 kg/m? PHYSICAL EXAM: NEUROLOGICAL: Drowsy but awakens to my presence and is interactive. Pupils 3b, EOMI, AANDOx3 GCS: Eyes: 4. Spontaneous Verbal: 5: Oriented Motor: 6: Obeys Motor commands Total: 15 RUE 4/5 some sensation loss LUE 4/5 sensation intact BLE generally weak 3/5, effort against gravity but not able to sustain, intact sensation CV: Paced Rhythm Pulm: CTAB GI/: ABD soft nontender Skin/Extremities: Edema- No Peripheral pulses- Present all extremities Wounds/Drsgs- No Breakdown- No DATA: Diagnostic tests reviewed for today's visit: Most recent labs and imaging results. Most recent labs Most recent imaging Lines, Drains, and Airways Line Duration Peripheral 12/19/24 [facility] Short Left Forearm 16 Gauge 1 day Arterial Line/Sheath 12/20/24 Right Radial <1 day Peripheral 12/20/24 1345 [facility] Short Left Hand 16 Gauge <1 day (more content not included)... Normal [facility] Magnesium SerPl-mCncon 12-20 Magnesium [Mass/Vol] 1.8 mg/dL Normal 1.7-2.3 [facility] Comment on above: Order Comment: Speci men Type: BLOOD SPECIMENOrdering Facility: [facility] Address: [address] [place] [address] Performed By: #### 2 [id number], 01543-1 ####[facility]ATORYCLIA [id number] [address] NT-proBNP SerPl-mCncon 12-20 Natriuretic peptide.B prohormone N-Terminal [Mass/Vol] 1636 pg/mL High <125 [facility] Comment on above: Order Comment: Specshahla stearns Type: BLOOD SPECIMENOrdering Facility: [facility] Address: [address] [place] [address] Performed By: #### 3 3762-6 ####[facility]ATORYCLIA [id number] [address] OPERATIVE NOon 12-20-2024 OPERATIVE NO HNO ID: [id number] Author: LACEY MCDERMOTT MD Service: Neurosurgery Author Type: Physician Type: Operative Report Filed: 01/11/2025 12:39 Note Text: OPERATIVE/PROCEDURE REPORT SURGERY/PROCEDURE DATE: 12/20/2024 INCISION/PROCEDURE START TIME: 2:29 PM INCISION CLOSE/PROCEDURE END TIME: 5:30PM PRE-OP/PRE-PROCEDURE DIAGNOSIS: Cervical spondylotic myelopathy POST-OP/POST-PROCEDURE DIAGNOSIS: Same PROCEDURE IN SUMMARY: Cervical 3 to cervical 7 laminectomy for decompression of the spinal cord ANESTHESIA: General SURGEON(S)/PROCEDURALIST(S ) AND ASSISTANT GOLF PROFESSIONAL(S): Surgeons and Role: * Ponce Machado MD - co-surgeon * Lacey Mcdermott MD - co-surgeon Physician Locket Maker: George Yap PA-C Co-surgery required due to the complexity of the case and no qualified resident or fellow available. SURGERY/PROCEDURE DETAILS: Mr. Zimmer is a 64-year-old man who presented with progressive cervical myelopathy. He was found to have severe stenosis from C5-C7, causing cord compression. Given the severity of his symptoms, we offered posterior cervical decompression and fusion. The risks, benefits, and alternatives to surgery were discussed in detail. The risks that we discussed included bleeding, infection, neurologic injury including spinal cord injury, nerve root injury, CSF leak, need for additional surgery, hardware failure, medical complications including heart attack, stroke, pneumonia, blood clots, paralysis, coma, and . All questions were answered. The patient understood the risks of surgery and was willing to proceed. Given the complexity of the surgery and the amount of stenosis present, Dr. Machado was my co-surgeon for the case. Please see his dictation of the instrumentation and fusion portion of the procedure. Once the cervical spine was exposed and the levels were localized, I began the decompression. A Leksell rongeur was used to remove the interspinous ligament at C2-3 and C7-T1. A high-speed drill was used to drill a trough at the junction between the lamina and lateral mass from C3 down to C7 bilaterally. A Kerrison rongeur was used to remove any eggshell bone beneath this trough. The posterior elements were then removed en bloc. This bone was then stripped of soft tissue, and morselized for use in the bone graft construct later. Somatosensory evoked potentials and motor evoked potentials were stable after decompression. Dr. Meneses then completed the instrumentation and fusion, and we both assisted in the multilayered closure. Neuromonitoring signals were stable throughout the surgery. The patient was then carefully turned supine onto the operating room bed, extubated, and transferred to the recovery room in stable condition. ESTIMATED BLOOD LOSS: 100 mls SPECIMENS: None DRAINS: HV x 1 COMPLICATIONS: None Lacey Mcdermott MD [facility] OPERATIVE NO HNO ID: [id number] Author: PONCE MACHADO MD Service: Orthopaedic Surgery Author Type: Physician Type: Operative Report Filed: 12/21/2024 07:34 Note Text: OPERATIVE/PROCEDURE REPORT LOG ID: [id number] SURGERY/PROCEDURE DATE: 12/20/2024 INCISION/PROCEDURE START TIME: 2:29 PM INCISION CLOSE/PROCEDURE END TIME: 5:30PM PRE-OP/PRE-PROCEDURE DIAGNOSIS: Cervical spondylotic myelopathy POST-OP/POST-PROCEDURE DIAGNOSIS: Same PROCEDURE IN SUMMARY: C2-T1 posterior spinal fusion C2-T1 posterior spinal instrumentation Use of allograft bone Use of local autograft Use of neuromonitoring Use of intraoperative fluoroscopy <60 minutes without radiologist ANESTHESIA: General SURGEON(S)/PROCEDURALIST(S ) AND ASSISTANT GOLF PROFESSIONAL(S): Surgeons and Role: * Ponce Machado MD - co-surgeon * Lacey Mcdermott MD - co-surgeon Physician Locket Maker: George Yap PA-C Co-surgery required due to the complexity of the case and no qualified resident or fellow available. SURGERY/PROCEDURE DETAILS: The patient was identified in the preoperative holding area. Consent and surgical level were verified. The risks, benefits, and alternatives of surgery were reviewed, and the patient accepted and desired to proceed. All questions were answered, and no guarantees were given or implied. The patient voiced an understanding of the surgical plan and postoperative care. The patient was taken to the operating room and after placement of intravenous lines, was intubated uneventfully by the Anesthesia team. A fernandez catheter was placed by the surgical team. Neuromonitoring electrodes were placed baseline MEP/SSEPs were obtained. A 3-point Membreno head clamp was applied and the patient was carefully turned prone. All pressure points were padded and satisfactory positioning was confirmed by the surgical team. Neuromonitoring was stable after positioning. The patient was then prepped and draped in the usual fashion after marking the surgical incision based on external anatomic landmarks. Surgical time out was performed. A vertical midline incision was created with a #10 blade and the dissection was carried down to the spinous processes of C2-T1 with electrocautery. The muscles were elevated laterally using a subperiosteal dissection technique and self-retaining retractors were placed. The surgical field was exposed from the C2 lamina to T1 lamina. We confirmed our levels in a standard fashion. C2 pars screws were placed under fluoroscopy and after the medial edge of the pars was identified. Professional Bass Fisher holes were created in the central aspect of the C3, C4, C5, C6 lateral masses bilaterally with a armando. An electric hand-held PayDragon drill was then used to extend the entry points to 14 mm. A pedicle sounder was used to confirm patency of the holes without violation. T1 pedicle screws were placed bilaterally using fluoroscopically assistance and anatomic landmarks. For decompressive laminectomy portion of the procedure please see Dr. Mcdermott's operative report. At this point, we placed screws in the C3, C4, C5, C6 lateral masses. We obtained fluoroscopy to confirm satisfactory placement and global cervical alignment. The wound was copiously irrigated. The cervical facet joints were decorticated bilaterally at C2-C3, C3-C4, C4-C5, C5-C6, C6-C7, C7-T1. We then placed appropriately sized titanium rods bilaterally and secured them with titanium caps. Local autograft was carefully placed bilaterally over the decorticated facet joints and lateral to the hardware. A drain was placed. Vancomycin powder was administered into the wound and a standard multi-layered closure was performed. The patient was carefully turned supine, Membreno header set up operator was removed, patient extubated uneventfully, and transported to the recovery unit. All instrument counts were correct at the end of the case. I was present for the critical portions of the procedure from positioning to fascial closure and was immediately available for final closure. ESTIMATED BLOOD LOSS: 100 mls SPECIMENS: None IMPLANTABLE DEVICES: veto DRAINS: HV x 1 COMPLICATIONS: None SIGNATURE: Ponce Machado MD PATIENT NAME: Frank Zimmer DATE: December 20, 2024 TIME: 4:09 PM PAGER/CONTACT #: Normal [facility] Phosphate SerPl-mCncon 12-20 Phosphate [Mass/Vol] 4.0 mg/dL Normal 2.7-4.8 [facility] Comment on above: Order Comment: Speci men Type: BLOOD SPECIMENOrdering Facility: [facility] Address: [address] [place] [address] Performed By: #### 2 [id number], 26682-7 ####[facility]ORATORYCLIA [id number] [address] [place] THERAPY NTon 12-20-2024 THERAPY NT HNO ID: [id number] Author: LEXI SAHA OTR/Elle Service: Occupational Therapy Author Type: Occupational Therapist Type: Therapy (PT/OT/Speech/Resp) Filed: 12/20/2024 08:28 Note Text: OCCUPATIONAL THERAPY MISSED VISIT SERVICE DATE: 12/20/2024 SERVICE TIME: 827 ROOM: [place] [address] Patient not seen due to Test / Procedure. Plan for OR, will hold at time. SIGNATURE: AVA Preciado PATIENT NAME: Frank Zimmer DATE: December 20, 2024 TIME: 8:28 AM Normal [facility] XR CERVICAL 2V AP/LATon 11-25 XR CERVICAL 2V AP/LAT * * *Final Report* * * DATE OF EXAM: Dec 20 2024 6:19PM [id number] [id number] - XR CERVICAL 2V AP/LAT / PROCEDURE REASON: POSTERIOR SEGMENTAL INSTRUMENTATION FOLLOWING CERVICAL FUSION * * * * Physician Interpretation * * * * INTRAOPERATIVE FLUOROSCOPIC EXAMINATION DATE: 12/20/2024 COMPARISON: CT cervical spine 12/19/2024 HISTORY: POSTERIOR SEGMENTAL INSTRUMENTATION FOLLOWING CERVICAL FUSION ENCOUNTER: Not applicable TECHNIQUE: Images from fluoroscopic examination of the cervical spine during operative procedure were submitted for interpretation. Fluoroscopic Radiation Summary: Plane A, Air Kerma: 4.3 mGy Dose Area Product (DAP): Fluoro time: 0:36 min:sec RESULT: Examination is limited due to fluoroscopic technique. 5 fluoroscopic image(s) Placement of posterior instrumented fusion spanning from C2-T1 IMPRESSION: Intraoperative films Please refer to operative notes for full details. Cell Pourer: [facility] Transcribe Date/Time: Dec 21 2024 7:45A Dictated by : ROSALIO WAGONER MD This examination was interpreted and the report reviewed and electronically signed by: ROSALIO WAGONER MD on Dec 21 2024 7:47AM EST [id number] Normal [facility] XR CHEST 1V FRONTALon 2024 XR CHEST 1V FRONTAL * * *Final Report* * * DATE OF EXAM: Dec 20 2024 9:47AM [id number] - XR CHEST 1V FRONTAL / PROCEDURE REASON: Cough * * * * Physician Interpretation * * * * EXAMINATION: CHEST RADIOGRAPH (SINGLE VIEW AP OR PA) CLINICAL HISTORY: Cough MQ: XC1_5 Comparison: Chest radiograph 08/22/2022 RESULT: Lines, tubes, and devices: Left-sided cardiac device with leads in similar position. Lungs and pleura: Bibasilar atelectasis. No focal consolidation, pleural effusion, or pneumothorax. Cardiomediastinal silhouette: Normal cardiomediastinal silhouette. Other: No bony abnormalities. IMPRESSION: No acute radiographic abnormality. Cell Pourer: [place] Transcribe Date/Time: Dec 20 2024 9:59A Dictated by : EVAN SANTANA MD This examination was interpreted and the report reviewed and electronically signed by: EVAN SANTANA MD on Dec 20 2024 10:00AM EST [id number] Normal [facility] ALLIED HEALTHon 12-19-2024 ALLIED HEALTH HNO ID: [id number] Author: LORIE BRUSH Tech Service: ? Author Type: Technologist Type: Allied Health Filed: 12/19/2024 06:43 Note Text: Radiology Service Progress Note PATIENT NAME: Frank Zimmer DATE OF SERVICE: December 19, 2024 TIME: 6:43 AM PATIENT IDENTITY VERIFICATION COMPLETED USING TWO (2) IDENTIFIERS: Name and Date of confirmed by patient verbally and Name and Date of confirmed by identification band. FALL SCREENING: Has the patient had 2 falls in the last year or 1 fall with injury or currently using an Ambulatory Assistive Device (Walker, Cane, Wheelchair, Crutches, etc.)? Emergency Room Patient: Screened in ED PATIENT GENDER DATA: Assigned male at PATIENT RELEVANT IMPLANT DATA REVIEWED: Yes PATIENT PRESENTS WITH AN IMPLANTABLE OR ATTACHED SENIOR MAINFRAME PROGRAMMER ANALYST: No RADIOLOGY DEPARTMENT: CT; Exam(s) Completed: Spine PERIPHERAL IV DATA: Not applicable SIGNED BY: Michael Law December 19, 2024 6:43 AM Normal [facility] CONSULTon 12-19-2024 CONSULT HNO ID: [id number] Author: ARMANDO SAMSON MD Service: Cardiovascular Disease Author Type: Physician Type: Consults Filed: 12/19/2024 15:12 Note Text: CARDIOLOGY CONSULTATION- [facility] Patient Name: Frank Zimmer : 1960 PRIMARY CARE PHYSICIAN: To use this Smartlink, specify the provider ID whose address you want to display, e.g., .PROVADDR[1 (where 1 is the provider ID). REFERRING PHYSICIAN No referring provider defined for this encounter. Chief Complaint Patient presents with: Sent By Md: Pt arrives to triage, sent by MD, pt reports he needs neck surgery but they wouldn't do it at [facility] due to his heart conditions History of Present Illness: Frank Zimmer is a 64 year old male To do preoperative cardiovascular assessment before possible urgent back surgery by neurosurgery due to patient with progressive myelopathy and spinal stenosis. Patient has [facility] has had stenting of the RCA and LCx these were cath in 2021 and they were patent with some disease that was mild to moderate the other vessels with normal FloWire treated medically EF at that time 30% the patient has a PLAY THERAPIST-D device for V. tach and left bundle branch block. No recent firings no recent arrhythmia generally doing well per report from his it solutions sales consultant. He is on reasonable guideline based therapy he is on baby aspirin. Patient says he has had 3 years of back problems and leg problems but is really gotten worse over the last month or so to the point where he is having a hard time walking and that is why he came to the hospital he really does not have chest pain chest tightness or dyspnea no edema no ICD firings for couple of years he has been compliant with amiodarone no syncope or stroke no internal bleeding last dose of aspirin was yesterday. He does not smoke or drink alcohol. He says that prior to the recent leg weakness he was pretty active and really did not have any symptomatology PAST MEDICAL HISTORY Diagnosis Date CAD (coronary artery disease) V-tach (HCC) PAST SURGICAL HISTORY Procedure Laterality Date INSERT/REPL DEFIB LEAD/GENER OTHR PAST SURGICAL HISTORY OF WARTS RIGHT FOOT PAST SURGICAL HISTORY OF NASAL SURGERY PCI/STENT FAMILY HISTORY Problem Relation Age of Onset Diabetes Father Heart Father HEART DISEASE Heart Mother VALVE REPAIRED Hypertension Mother Social History Tobacco Use Smoking status: Never Substance Use Topics Alcohol use: Never Drug use: Never Cardiac Risk Factors: ALLERGIES Allergen Reactions Bees ANAPHALACTIC REACTION Morphine Vomiting Medications: Current Facility-Administered Medications Medication Dose Route Frequency Provider Last Rate Last Admin acetaminophen 650 mg tab(s) (TYLENOL) 650 mg ORAL q 6 H PRN Porfirio Pavon, DO traMADol 50 mg tab(s) (ULTRAM) 50 mg ORAL q 8 H PRN Porfirio Pavon DO 50 mg at 12/19/24 1201 amiodarone 200 mg tab(s) (PACERONE) 200 mg ORAL DAILY Porfirio Pavon DO 200 mg at 12/19/24 1201 lisinopril 40 mg tab(s) (ZESTRIL) 40 mg ORAL DAILY Porfirio Pavon DO 40 mg at 12/19/24 1201 carvedilol 25 mg tab(s) (COREG) 25 mg ORAL BID w MEALS Porfirio Pavon DO rosuvastatin 40 mg tab(s) (CRESTOR) 40 mg ORAL AT BEDTIME Porfirio Pavon DO NaCl 0.9% iv flush bag 20 mL INTRAVENOUS PRN Porfirio Pavon DO dextrose 15 gram/32 mL 15 g (TRUEPLUS) 15 g ORAL PRN Porfirio Pavon DO Or glucagon 1 mg injection 1 mg INTRAMUSCULAR PRN Porfirio Pavon DO Or dextrose 10% iv bolus 12.5 g INTRAVENOUS PRN Porfirio Pavon DO insulin lispro injection (rapid acting) (ADMElog) SUBCUTANEOUS w MEALS Porfirio Pavon DO Current Outpatient Medications Medication Sig Dispense Refill amiodarone 400 mg tablet Take 1 tablet by mouth once daily. 90 tablet 0 aspirin, enteric coated (ASPIRIN, ENTERIC COATED) 81 mg EC tablet Take 81 mg by mouth once daily. carvedilol (COREG) 25 mg tablet Take 1 (one) Tablet by mouth two times daily JARDIANCE 25 mg tablet Take 25 mg by mouth daily with breakfast. furosemide (LASIX) 20 mg tablet Take 20 mg by mouth once daily. lisinopril (ZESTRIL, PRINIVIL) 40 mg tablet Take 40 mg by mouth once daily. metFORMIN ER (GLUCOPHAGE XR) 500 mg 24 hr tablet Take 500 mg by mouth twice daily. rosuvastatin (CRESTOR) 40 mg tablet TAKE 1 TABLET BY MOUTH EVERY DAY nightly Review of Systems Constitutional: Negative for chills and fever. Respiratory: Negative for shortness of breath and wheezing. Denies Chest Tightness Cardiovascular: Negative. Gastrointestinal: Negative for abdominal pain, blood in stool and nausea. Genitourinary: Negative for hematuria. Musculoskeletal: Negative for falls. Neurological: Positive for weakness. Negative for dizziness, speech change and loss of consciousness. Bilateral leg weakness present denies syncope Endo/Heme/Allergies: Does not bruise/bleed easily. Physical Examination: Vitals:BP 15 (more content not included)... Normal [facility] CONSULT HNO ID: [id number] Author: REAGAN MCKEON APRN.PROJECT SYSTEMS ENGINEER Service: Neurosurgery Author Type: Nurse Practitioner Type: Consults Filed: 12/19/2024 11:54 Note Text: -- Attestation signed by Lacey Mcdermott MD at 12/19/2024 2:03 PM Pt examined, HANDP reviewed, and I agree with the above. Pt with severe, progressive myelopathy over the last several months, now unable to walk. CT shows severe ventral compression at C6-C7 from a calcified disc-osteophyte complex. Was planning to have surgery at [facility] but felt to be unsafe, so he was sent here. Has a cardiac hx with pacemaker, DM2 that is under good control. Plan for C4 to T1 PCDF after medical and cardiac clearance. High-risk surgery; discussed risk of paralysis (transient or permanent), infection, bleeding, medical complications, etc. No good alternative to surgery. Likely OR tomorrow PM once time is available. Lacey Mcdermott MD -- CONSULT: NEUROSURGERY SERVICE Patient Name: Frank Zimmer Date of : 1960 SERVICE DATE: 12/19/2024 REASON FOR CONSULT: cervical stenosis REQUESTING PHYSICIAN: Porfirio Pavon DO PRIMARY CARE PHYSICIAN: No primary care provider on file. Consultation requested by Dr. Pavon for an opinion regarding cervical stenosis. My final recommendations will be communicated back to the requesting physician by way of shared Medical record or letter to requesting physician via US mail. CHIEF COMPLAINT: weakness, difficulty ambulating HISTORY OF PRESENT ILLNESS : Frank Zimmer is a 64 year old male PMH Vtach s/p pacer, cardiac stent in 2017 on ASA81, T2DM who presented for evaluation of spinal pathology. Patient endorses 3 years of difficulty with right sided fine motor skills and low back pain radiating to right leg needing a cane to ambulate, both worsened in last 1.5 months and now involving left side. At that time patient began to need a walker, and then 1 month ago began using wheelchair. He also endorses paresthesias in arms, worse in hands. He was sent to Dr Ramon Call at [facility] who worked this up. Patient states office was supposed to call Tuesday to direct admit him for surgery , but instead called saying it was not safe to undertake surgery at [facility] and he should go to [facility], prompting visit today. PAST MEDICAL HISTORY Diagnosis Date CAD (coronary artery disease) V-tach (HCC) PAST SURGICAL HISTORY Procedure Laterality Date INSERT/REPL DEFIB LEAD/GENER OTHR PAST SURGICAL HISTORY OF WARTS RIGHT FOOT PAST SURGICAL HISTORY OF NASAL SURGERY PCI/STENT FAMILY HISTORY Problem Relation Age of Onset Diabetes Father Heart Father HEART DISEASE Heart Mother VALVE REPAIRED Hypertension Mother ALLERGIES Allergen Reactions Bees ANAPHALACTIC REACTION Morphine Vomiting Current Facility-Administered Medications Medication Dose Route Frequency Provider Last Rate Last Admin acetaminophen 650 mg tab(s) (TYLENOL) 650 mg ORAL q 6 H PRN Porfirio Pavon DO traMADol 50 mg tab(s) (ULTRAM) 50 mg ORAL q 8 H PRN Porfirio Pavon DO amiodarone 200 mg tab(s) (PACERONE) 200 mg ORAL DAILY Porfirio Pavon DO lisinopril 40 mg tab(s) (ZESTRIL) 40 mg ORAL DAILY Porfirio Pavon DO carvedilol 25 mg tab(s) (COREG) 25 mg ORAL BID w MEALS Porfirio Pavon DO rosuvastatin 40 mg tab(s) (CRESTOR) 40 mg ORAL AT BEDTIME Porfirio Pavon DO Current Outpatient Medications Medication Sig Dispense Refill amiodarone 400 mg tablet Take 1 tablet by mouth once daily. 90 tablet 0 aspirin, enteric coated (ASPIRIN, ENTERIC COATED) 81 mg EC tablet Take 81 mg by mouth once daily. carvedilol (COREG) 25 mg tablet Take 1 (one) Tablet by mouth two times daily JARDIANCE 25 mg tablet Take 25 mg by mouth daily with breakfast. furosemide (LASIX) 20 mg tablet Take 20 mg by mouth once daily. lisinopril (ZESTRIL, PRINIVIL) 40 mg tablet Take 40 mg by mouth once daily. metFORMIN ER (GLUCOPHAGE XR) 500 mg 24 hr tablet Take 500 mg by mouth twice daily. rosuvastatin (CRESTOR) 40 mg tablet TAKE 1 TABLET BY MOUTH EVERY DAY nightly COMPLETE REVIEW OF SYSTEMS PAIN ASSESSMENT: see HPI Constitutional: Denies fatigue, fever/chills Eyes: Denies vision changes Ears: Denies hearing changes Cardiovascular: Denies palpitation Respiratory: Denies cough GI: Denies change in bowel or bladder habits : Denies incontinence Musculoskeletal: Denies joint pain, muscle pain Integumentary: Denies rashes Neurological: Denies local weakness, numbness, tingling Psychiatric: Denies anxiety, depression Endocrine: Denies heat/cold intolerance Heme/Lymph: Denies easy bruising or bleeding Allergy/Immune: Denies fatigue, fever/chills MEDS: Current Facility-Administered Medications Medication Dose Route Frequency acetaminophen 65 (more content not included)... Normal [facility] CT CERVICAL SPINE WO IVCONon 12-19-2024 CT CERVICAL SPINE WO IVCON * * *Final Report* * * DATE OF EXAM: Dec 19 2024 6:43AM [facility] 0505 - CT CERVICAL SPINE WO IVCON / PROCEDURE REASON: Spinal stenosis, cervical * * * * Physician Interpretation * * * * EXAMINATION: CT CERVICAL SPINE WO IVCON CLINICAL HISTORY: Neck pain. Technique: Without intravenous contrast, a series of axial images were taken from skull base to upper thoracic spine. Findings: Fracture:None. Alignment:Anatomic. Degenerative changes: C2-3: No significant disc bulge or herniation. Mild central canal stenosis predominantly due to congenitally short pedicles. Neural foramina are patent. C3-4: Mild generalized bulge of the disc leading to mild central canal stenosis. Moderate bilateral neural foraminal stenosis is due to osteophytes at the uncovertebral joints. C4-5: Mild generalized bulge of the disc superimposed on congenitally short pedicles leading to [id number] central canal stenosis. Mild right-sided neural foraminal stenosis due to osteophytes at the uncovertebral joint. C5-6: Prominent disc bulge/osteophyte complex leading to severe central canal stenosis slightly greater off to the right side. Moderate to severe bilateral neural foraminal stenosis due to osteophytes at the uncovertebral joints. C6-7: Massive generalized bulge of the disc and massive posterior osteophyte formation leading to severe central canal stenosis (residual canal measures approximately only 3 mm in AP diameter on 7:135.) Severe bilateral neural foraminal stenosis due to prominent osteophytes at the uncovertebral joints. Paraspinous soft tissues:No significant additional findings. IMPRESSION: 1. Severe degenerative disc and osteoarthritic changes leading to very severe degree of central canal stenosis and neural foraminal most severe at C6-7. Correlation with MRI to assess condition of spinal cord is recommended. 2. No acute findings otherwise. Cell Pourer: PSCB Transcribe Date/Time: Dec 19 2024 7:07A Dictated by : ROMAIN MURCIA MD This examination was interpreted and the report reviewed and electronically signed by: ROMAIN MURCIA MD on Dec 19 2024 7:17AM EST [id number] [facility] ED NOTEon 12-19-2024 ED NOTE HNO ID: [id number] Author: ROSEMARY BROWN CT Service: Emergency Medicine Author Type: Clinical Cardiac Cath Tech Type: ED Notes Filed: 12/19/2024 17:41 Note Text: Patient transported to [facility] at this time w/ [facility] ED NOTE HNO ID: [id number] Author: LORI MAURO RN Service: ? Author Type: Registered Nurse Type: ED Notes Filed: 12/19/2024 16:21 Note Text: Bed: 37-ED Expected date: Expected time: Means of arrival: Comments: 21 [facility] ED NOTE HNO ID: [id number] Author: SASCHA REAGAN RN Service: ? Author Type: Registered Nurse Type: ED Notes Filed: 12/19/2024 05:19 Note Text: Bed: 21-ED Expected date: Expected time: Means of arrival: Comments: TRIAGE [facility] ED PROV NOTEon 12-19-2024 ED PROV NOTE HNO ID: [id number] Author: MARLO DENNIS DO Service: Emergency Medicine Author Type: Physician Type: ED Provider Notes Filed: 12/25/2024 23:07 Note Text: ED Provider Note Patient Name: Frank Zimmer : 1960 SERVICE DATE: 12/18/24 History Patient presents with: Sent By Md: Pt arrives to triage, sent by MD, pt reports he needs neck surgery but they wouldn't do it at [facility] due to his heart conditions This is a 64 year old female who presents to the emergency department for difficulty with ambulation. Patient has a history of chronic neck pain. Patient presents to our emergency department by recommendation of his spine surgeon at [facility] for admission for spine evaluation. Patient was scheduled to have cervical spine surgery at [facility] however after anesthesia and surgery reviewed his case they did not feel comfortable performing it because they do not have cardiac capabilities and the patient has a pacer for his history of V. tach. He was told to come to [facility] Because we have cardiac anesthesia. Patient states that his symptoms have been progressive for many years however has worsened over the past couple of weeks and has required him to be in a wheelchair. Patient has difficulty taking care of himself at home. He denies fevers or chills cough shortness of breath chest pain abdominal pain nausea vomiting melena hematochezia constipation diarrhea hematuria. He is well-appearing and in no acute distress upon my examination of him. No past medical history on file. PAST SURGICAL HISTORY Procedure Laterality Date PAST SURGICAL HISTORY OF WARTS RIGHT FOOT PAST SURGICAL HISTORY OF NASAL SURGERY FAMILY HISTORY Problem Relation Age of Onset Diabetes Father Heart Father HEART DISEASE Heart Mother VALVE REPAIRED Hypertension Mother Social History Tobacco Use Smoking status: Not on file Smokeless tobacco: Not on file Substance and Sexual Activity Alcohol use: Not on file Drug use: Not on file Sexual activity: Not on file ALLERGIES Allergen Reactions Bees ANAPHALACTIC REACTION Morphine Vomiting Review of Systems All other systems reviewed and are negative. Physical Exam Vitals [12/18/24 1153] BP Pulse Temp Temp src Resp SpO2 Weight Height 150/79 56 36.8 ?C (98.2 ?F) Oral 22 98 % 94.3 kg (208 lb) 1.956 m (6' 5) Physical Exam HENT: Head: Normocephalic and atraumatic. Right Ear: External ear normal. Left Ear: External ear normal. Nose: Nose normal. Mouth/Throat: Mouth: Mucous membranes are moist. Eyes: General: Right eye: No discharge. Left eye: No discharge. Cardiovascular: Rate and Rhythm: Normal rate and regular rhythm. Pulmonary: Effort: Pulmonary effort is normal. Breath sounds: No wheezing. Chest: Chest wall: No tenderness. Abdominal: General: Abdomen is flat. Tenderness: There is no abdominal tenderness. There is no guarding or rebound. Musculoskeletal: Cervical back: Normal range of motion. No rigidity. Right lower leg: No edema. Left lower leg: No edema. Neurological: Mental Status: He is alert and oriented to person, place, and time. Cranial Nerves: No cranial nerve deficit. Comments: Weakness in bilateral upper extremities, worse on the right, sensation intact Weakness bilateral lower extremities, 3/5, sensation intact Diagnostic Testing ED Labs Ordered and Reviewed BASIC METABOLIC PANEL - Abnormal; Notable for the following components: Result Value Ref Range Creatinine 0.65 (*) 0.73 - 1.22 mg/dL All other components within normal limits COMPLETE BLOOD COUNT AND DIFFERENTIAL Results for orders placed or performed during the hospital encounter of 12/19/24 ECG COMPLETE Impression AV dual-paced rhythm WITH OCCASIONAL PREMATURE VENTRICULAR COMPLEXES Biventricular pacemaker detected ABNORMAL ECG WHEN COMPARED WITH ECG OF 22-Aug-2022 07:37, VENT. RATE HAS DECREASED by 8 bpm Confirmed by DO DENNIS CHRISTINA ([id number]) on 12/19/2024 6:32:26 AM Procedures ED Course / Clinical Impression Clinical Impressions as of 12/19/24 0641 Failure to thrive in adult Impaired ambulation Primary hypertension MDM / Disposition / Plan This is a 64-year-old male who presents emergency department at the request of his spine surgeon from [facility] for spine consultation. See history above. Physical exam as documented above. Per the patient, he has had extensive imaging over the past few years, I am unable to view records from spine surgeon and I am unable to view the imaging. I do believe that the patient will benefit from inpatient admission now that he is wheelchair-bound and cannot perform his ADLs. Patient underwent basic blood work in triage which was unremarkable. Patient case was discussed with sound admitting physician who agreed to admit the patient. Given that it was difficult to obtain imaging records, sound physician requested that we (more content not included)... Normal [facility] ED PROV NOTE HNO ID: [id number] Author: MARLO DENNIS DO Service: Emergency Medicine Author Type: Physician Type: ED Provider Notes Filed: 12/19/2024 07:02 Note Text: ED Attending attestation: I evaluated the patient and personally participated in the martínez components and procedures, and performed a substantive portion of the visit including all aspects of the medical decision making. I agree with the resident's findings and plan as documented and have discussed the case and management of the patient's care with the resident. HPI: 64 year old male presents complaining of chronic neck pain who presents by recommendation of his spine surgeon at [facility] for admission for spine evaluation. Patient was scheduled to have cervical spine at [facility], however anesthesia there did not feel comfortable doing it since they do not have cardiac capabilities and patient has a history of V. tach with AICD/pacer. Patient states that he has been ambulating with a cane for many years, but over the past month his symptoms have progressively worsened and he has been in a wheelchair. He is having difficulty performing ADLs such as getting up to go to the bathroom, shower, and make meals for himself. He denies any chest pain or shortness of breath, syncope, fever or chills, NVD, dysuria or hematuria, or other complaints. Attending exam: Patient nontoxic and in no distress. Cardio: RRR with normal S1 and S2. No murmurs, rubs, or gallops. Respiratory: Lungs CTA bilaterally without wheezes, rales, or rhonchi. Abdomen: Soft, NT, ND, + BS. No masses or peritoneal signs. Extremities: No edema, clubbing, cyanosis. All distal pulses are equal and intact. Attending MDM: Patient is nontoxic-appearing, vital signs are stable. Old records reviewed, patient has history of ventricular tachycardia and paroxysmal A-fib, cardiac history going back to 2018 when he presented with acute chest pain and sustained V. tach with an acute IL. He had stents placed at that time. He had several episodes after that with presenting with V. tach after exertion which was able to be resolved with amiodarone. I am unable to view records from spine surgeon. Differentials include spinal stenosis, cord compression, or other neurologic etiology causing his diminished ambulation and weakness. He was treated with pain medication. Labs are nondiagnostic. ECG interpreted by myself and shows biventricular paced rhythm without ST segment elevation or depression. CT C-spine pending at morning signout. Please follow-up with residents note for results and disposition. I do anticipate patient will need admitted to the hospital since he is now wheelchair-bound and cannot perform ADLs. DO SONNY Smith CHRISTINA M 12/19/24 0702 Normal [facility] HISTORY PHYSICALon HISTORY PHYSICAL HNO ID: [id number] Author: PORFIRIO PAVON DO Service: Hospital Medicine Author Type: Physician Type: H&P Filed: 12/19/2024 10:14 Note Text: DEPARTMENT OF HOSPITAL MEDICINE HISTORY AND PHYSICAL EXAM SERVICE DATE: 12/19/2024 SERVICE TIME: 9:19 AM Primary Care Physician: No primary care provider on file. NIGHT AND WEEKEND COVERAGE: [place] COVERAGE: From 7am - 7pm, please call sound After 7pm, please call cross cover pager #[phone] Subjective CHIEF COMPLAINT: Cervical stenosis HPI: This is a 64 year old male with past medical history significant for CAD and V. tach who presents per recommendation of his orthopedic surgeon for evaluation of spinal surgery. Patient has been having intermittent right side altered sensation worse in his right lower extremity with weakness and pain with lifting his right lower extremity. Patient was evaluated at [facility] recommended for evaluation at [facility] For possible spine surgery due to his cardiac history. He otherwise denies any recent illness including fevers, chills, shortness of breath, chest pain, headache, lightheadedness, dizziness, nausea, vomiting or diarrhea. Denies any bowel or bladder changes. Denies any recent sick contacts. Denies any No past medical history on file. PAST SURGICAL HISTORY Procedure Laterality Date PAST SURGICAL HISTORY OF WARTS RIGHT FOOT PAST SURGICAL HISTORY OF NASAL SURGERY FAMILY HISTORY Problem Relation Age of Onset Diabetes Father Heart Father HEART DISEASE Heart Mother VALVE REPAIRED Hypertension Mother MEDICATIONS: Reviewed Prior to Admission Medications Prescriptions Last Dose Informant Patient Reported? Taking? JARDIANCE 25 mg tablet OTHER Yes No Sig: Take 25 mg by mouth daily with breakfast. amiodarone 400 mg tablet No No Sig: Take 1 tablet by mouth once daily. aspirin, enteric coated (ASPIRIN, ENTERIC COATED) 81 mg EC tablet Patient Yes No Sig: Take 81 mg by mouth once daily. carvedilol (COREG) 25 mg tablet OTHER Yes No Sig: Take 1 (one) Tablet by mouth two times daily furosemide (LASIX) 20 mg tablet OTHER Yes No Sig: Take 20 mg by mouth once daily. lisinopril (ZESTRIL, PRINIVIL) 40 mg tablet OTHER Yes No Sig: Take 40 mg by mouth once daily. metFORMIN ER (GLUCOPHAGE XR) 500 mg 24 hr tablet OTHER Yes No Sig: Take 500 mg by mouth twice daily. rosuvastatin (CRESTOR) 40 mg tablet OTHER Yes No Sig: TAKE 1 TABLET BY MOUTH EVERY DAY nightly Facility-Administered Medications: None ALLERGIES Allergen Reactions Bees ANAPHALACTIC REACTION Morphine Vomiting REVIEW OF SYSTEM: All review of system reviewed negative less otherwise known HPI Objective PHYSICAL EXAM: BP 147/92 Pulse 19 Temp (Src) 98 (Oral) Resp 19 Ht 6' 5 (1.96m) Wt 208 lb (94.3kg) SpO2 93% BMI 24.66 kg/(m2). O2 Therapy: Room Air Physical Exam Performed: GENERAL: Alert, no distress, cooperative SKIN: Skin color, texture, turgor normal. No rashes or lesions. HEAD/SINUSES: No significant findings EYES: PERRLA, EOMI EARS: External ears normal, canals clear NOSE: Nares normal. Septum midline. OROPHARYNX: Lips, mucosa, and tongue normal. Teeth and gums normal. Oropharynx normal. NECK: No jugulovenous distention BACK: Back symmetric LUNGS: Lungs clear to auscultation, Good diaphragmatic excursion CARDIAC: Normal S1 and S2; no rubs, murmurs, or gallops ABDOMEN: Abdomen soft, non-tender, BS normal, No masses or organomegaly EXTREMITIES: Nontender lower extremity, no edema NEURO: Follows commands, moves all extremities with decreased strength in right lower extremity with straight leg raise, altered sensation compared to left in right lower and upper extremity worse lower extremity, otherwise conversant, cranial nerves II through XII intact Lines, Drains, and Airways Line Duration Peripheral 12/19/24 [facility] Short Left Forearm 16 Gauge <1 day DATA: Diagnostic tests reviewed for today's visit: Most recent labs and imaging results. Latest Reference Range AND Units 12/18/24 12:02 12/18/24 12:45 12/18/24 14:52 12/19/24 06:43 Sodium 136 - 144 mmol/L 139 Potassium 3.7 - 5.1 mmol/L 4.5 Chloride 98 - 107 mmol/L 105 CO2 22 - 30 mmol/L 25 BUN 9 - 24 mg/dL 15 Creatinine 0.73 - 1.22 mg/dL 0.65 (L) Glucose 74 - 99 mg/dL 96 Calcium 8.5 - 10.2 mg/dL 9.4 Anion Gap 8 - 15 mmol/L 9 eGFR >=60 mL/min/1.73m? 105 WBC 3.70 - 11.00 k/uL 8.44 RBC 4.20 - 6.00 m/uL 4.57 Hemoglobin 13.0 - 17.0 g/dL 14.7 Hematocrit 39.0 - 51.0 % 44.6 Platelet Count 150 - 400 k/uL 173 MCV 80.0 - 100.0 fL 97.6 MCH 26.0 - 34.0 pg 32.2 MCHC 30.5 - 36.0 g/dL 33.0 MPV 9.0 - 12.7 fL 10.7 RDW-CV 11.5 - 15.0 % 14.1 DTYPE Auto Neut% % 72.1 Abs Neut (ANC) 1.45 - 7.50 k/uL 6.09 Lymph% % 17.8 Abs Lymph 1.00 - 4.00 k/uL 1.50 Gila% % 7.2 Abs Gila <0.87 k/uL 0.61 Eosin% % 1.7 Abs Eosin <0.46 k/uL 0.14 Baso% % 0.7 Abs Baso <0.11 k/uL 0.06 Immature (more content not included)... Normal [facility] ICD CLINIC CHECKon 5 AV Delay Adaptive Paced Minimum (ms) 130 ms [facility] AV Delay Adaptive Rate Maximum (bpm) 130 {beats}/min [facility] AV Delay Adaptive Rate Minimum (bpm) 90 {beats}/min [facility] AV Delay Adaptive Sensed Minimum (ms) 100 ms [facility] AV Delay Adaptive Status Medium [facility] AV Delay Paced (ms) 100 ms [facility] AV Delay Sensed (ms) 100 ms [facility] Ole LV Pacing Amplitude (volts) 4.0 V [facility] Ole LV Pacing Polarity BI [facility] Ole LV Pacing Pulse Width (ms) 1.0 ms [facility] Ole RA Pacing Amplitude (volts) 2.5 V [facility] Ole RA Pacing Polarity BI [facility] Ole RA Pacing Pulse Width (ms) 0.8 ms [facility] Ole RA Sensing Amplitude (mvolts) 0.3 mV [facility] Ole RA Sensing Blanking Period (ms) 70 ms [facility] Ole RA Sensing Polarity BI [facility] Ole RA Sensing Refractory Period (ms) 190 ms [facility] Ole RV Pacing Amplitude (volts) 2.0 V [facility] Ole RV Pacing Polarity BI [facility] Ole RV Pacing Pulse Width (ms) 0.5 ms [facility] Ole RV Sensing Amplitude (mvolts) 0.5 mV [facility] Ole RV Sensing Blanking Period (ms) 44 ms [facility] Oel RV Sensing Polarity BI [facility] Detection Configuration (Vent) 2 - Zone [facility] FastVT_Detection Interval 375 ms [facility] FastVT_Therapy Configuration 1 ATP(s) + 0 Shock(s) [facility] ICD FastVT DetectionStatus ENABLED [facility] ICD-AMS EPISODES 180 {beats}/min [facility] ICD-ATP Episodes (Vent) 0 C [facility] ICD-Ole RV Sensing Refractory Period (ms) 250 ms [facility] ICD-Device Mfg STJ [facility] ICD-FALLBACKRATE_BPM 70 {beats}/min [facility] ICD-Hysteresis Rate Off [facility] ICD-LEADIMPEDANCEATRIAL 462.5 ohm [facility] ICD-Percent Pacing (Atrial) 88.0 % [facility] ICD-Percent Pacing (Vent) 92.0 % [place] [facility] ICD[facility]PMT Intervention Atrial Pace [facility] ICD-PVC Intervention Off [facility] ICD-Rate Modulation Acceleration Reaction Fast [facility] ICD-Rate Modulation Deceleration Medium [facility] ICD-Rate Modulation Galax 8 [facility] ICD-Rate Modulation Threshold Auto (+0.0) [facility] ICD-Rhythm sinus ole @ 54 bpm [facility] ICD-Shocks Aborted (Vent) 0 [facility] INC-PHRYUH-CGVKSOTLK 0 [facility] ICD-SHOCKSABORTED 0 [facility] ICD-SHOCKSDELIVEREDVENTR ICULAR 0 [facility] ICD-Ventricular Fibrillation 0 [facility] ICD-VVDELAY_MS 0 ms [facility] Lead Impedance (LV) 862.5 ohm [facility] Lead Impedance (RV) 412.5 ohm [facility] Lead Impedance High Voltage 67.5 ohm [facility] Lead[address] [facility] Lead2 [facility] Location RA [facility] Location RV [facility] Lower Rate (bpm) 60 {beats}/min [facility] Max Sensor Rate (bpm) 125 {beats}/min [facility] MDT_PROG_TACHY_ZONE_DETE CTIONS_STATUS ENABLED [facility] Model 3369-40C Quadra Assura MP [facility] Model 1457Q [facility] Model 2088TC Tendril STS [facility] Model 7122 Durata [facility] Pacemaker Dependent? NO [facility] Pacing Mode DDDR [facility] Serial Number [id number] [facility] Serial Number [id number] [facility] Serial Number [id number] [facility] Serial Number [id number] [facility] Test Charge Time 9.125 [facility] Therapy Status (Vent) Enabled [facility] Thresh LV Capture Amplitude (volts) 2.0 V [facility] Thresh LV Capture Duration (ms) 1.0 ms [facility] Thresh RA Capture Amplitude (volts) 1.25 V [facility] Thresh RA Capture Duration (ms) 0.8 ms [facility] Thresh RA Sensing Amplitude (mvolts) 4.5 mV [facility] Thresh RV Capture Amplitude (VOLTS) 0.875 V [facility] Thresh RV Capture Duration (MS) 0.5 ms [facility] Thresh RV Sensing Amplitude (MVOLTS) 12.0 mV [facility] Tracking Rate (bpm) 130 {beats}/min [facility] VF Zone Detection Interval 375 ms [facility] VF Zone Therapy Configuration 1 ATP(s) + 0 Shock(s) [facility] ICD check multiple l ead biventricular system with programming. Patient ID x 2. Patient seen at bedside for ICD evaluation. Pocket/incision without signs/ symptoms of infection/erosion. No VT/VF events. No Mode switch episodes. Testing stable. Estimated battery longevity is 1.1 years and charge times stable. EGMs without noise. No changes made. Counters cleared. Report available for review in [employer]. Galina Aparicio RN NOTE TO PROVIDERS: CARD Flowsheets contain detailed device programming and testing data. Paceart/Interrogation PDF can be found under CARDIAC DATA AND REPORT, Scanned Documents section. PACEART 12/19/2024 Formattin g of this note might be different from the original. ICD check multiple lead biventricular system with programming. Patient ID x 2. Patient seen at bedside for ICD evaluation. Pocket/incision without signs/ symptoms of infection/erosion. No VT/VF events. No Mode switch episodes. Testing stable. Estimated battery longevity is 1.1 years and charge times stable. EGMs without noise. No changes made. Counters cleared. Report available for review in [employer]. Galina Aparicio RN NOTE TO PROVIDERS: CARD Flowsheets contain detailed device programming and testing data. Paceart/Interrogation PDF can be found under CARDIAC DATA AND REPORT, Scanned Documents section. [facility] No Panel Informationon 12-19 BLANK _ [facility] Implant Date 11/23/2019 [facility] THERAPY NTon 12-19-2024 THERAPY NT HNO ID: [id number] Author: PETR BOOKER, PT Service: Physical Therapy Author Type: Physical Therapist Type: Therapy (PT/OT/Speech/Resp) Filed: 12/19/2024 13:33 Note Text: PHYSICAL THERAPY MISSED VISIT SERVICE DATE: 12/19/2024 SERVICE TIME: 1332 ROOM: 21-ED Patient not seen due to Test / Procedure. Plans for cervical spine surgery pending medical clearance. Will hold and assess post op for needs. SIGNATURE: Petr Booker PT PATIENT NAME: Frank Zimmer DATE: December 19, 2024 TIME: 1:33 PM Normal [facility] Basic metabolic 2000 panelon 12-18-2024 Anion gap [Moles/Vol] 9 mmol/L Normal 8-15 [facility] Comment on above: Order Comment: Speci men Type: BLOOD SPECIMENOrdering Facility: [facility] Address: [address] [place] [address] Performed By: #### 2 4321-2 ####[facility]ATORYCLIA [id number] [place] [address] [place] Calcium [Mass/Vol] 9.4 mg/dL Normal 8.5-10.2 [facility] Comment on above: Order Comment: Speci men Type: BLOOD SPECIMENOrdering Facility: [facility] Address: [address] [place] [address] Performed By: #### 2 4321-2 ####[facility]ATORYCLIA [id number] [address] STATES OF [facility] Chloride [Moles/Vol] 105 mmol/L Normal 98-107 [facility] Comment on above: Order Comment: Speci men Type: BLOOD SPECIMENOrdering Facility: [facility] Address: [address] [place] [address] Performed By: #### 2 4321-2 ####[facility]ATORYCLIA [id number] [address] [facility] CO2 [Moles/Vol] 25 mmol/L Normal 22-30 [facility] Comment on above: Order Comment: Speci men Type: BLOOD SPECIMENOrdering Facility: [facility] Address: [address] [place] [address] Performed By: #### 2 4321-2 ####[facility]ATORYCLIA [id number] [address] Creatinine [Mass/Vol] 0.65 mg/dL Low 0.73-1.22 [facility] Comment on above: Order Comment: Speci men Type: BLOOD SPECIMENOrdering Facility: [facility] Address: [address] [place] [address] Performed By: #### 2 4321-2 ####[facility]ATORYCLIA [id number] [address] Creatinine and Glomerular filtration rate.predicted panel (S/P/Bld) 105 mL/min/1.73m??? Normal >=60 [facility] Comment on above: Order Comment: Speci men Type: BLOOD SPECIMENOrdering Facility: [facility] Address: [address] [place] [address] Result Comment: Gege mated Glomerular Filtration Rate (eGFR) is calculated using the 2020 CKD-EPI creatinine equation. This equation utilizes serum creatinine, sex, and age as parameters. The creatinine assay has traceable calibration to isotope dilution-mass spectrometry. Refer to KDIGO guidelines for clinical interpretation. In patients with unstable renal function, e.g. those with acute kidney injury, the eGFR may not accurately reflect actual GFR. Performed By: #### 2 4321-2 ####[facility]ATORYCLIA [id number] [place] [address] [place] Glucose [Mass/Vol] 96 mg/dL Normal 74-99 [facility] Comment on above: Order Comment: Porter jinny Type: BLOOD SPECIMENOrdering Facility: [facility] Address: [address] [place] [address] Result Comment: The [place] Diabetes Association (ADA) provides guidance for cutoff values for fasting glucose and random glucose. The ADA defines fasting as no caloric intake for at least 8 hours. Fasting plasma glucose results between 100 to 125 mg/dL indicate increased risk for diabetes (prediabetes). Fasting plasma glucose results greater than or equal to 126 mg/dL meet the criteria for diagnosis of diabetes. In the absence of unequivocal hyperglycemia, results should be confirmed by repeat testing. In a patient with classic symptoms of hyperglycemia or hyperglycemic crisis, random plasma glucose results greater than or equal to 200 mg/dL meet the criteria for diagnosis of diabetes. Reference: Standards of Medical Care in Diabetes 2016, [place] [employer] Association. Diabetes Care. 2016.39(Suppl 1). Performed By: #### 2 4321-2 ####[facility]ATORYCLIA [id number] [place] [address] [place] Potassium [Moles/Vol] 4.5 mmol/L Normal 3.7-5.1 [facility] Comment on above: Order Comment: Porter jinny Type: BLOOD SPECIMENOrdering Facility: [facility] Address: [address] [place] [address] Performed By: #### 2 4321-2 ####[facility]ATORYCLIA [id number] [place] [id number] [place] Sodium [Moles/Vol] 139 mmol/L Normal 136-144 [facility] Comment on above: Order Comment: Porter jinny Type: BLOOD SPECIMENOrdering Facility: [facility] Address: [address] [place], [place] [address] Performed By: #### 2 4321-2 ####[facility]ATORYCLIA [id number] [place] [address] [place] Urea nitrogen [Mass/Vol] 15 mg/dL Normal 9-24 [facility] Comment on above: Order Comment: Speci men Type: BLOOD SPECIMENOrdering Facility: [facility] Address: [address] [place] [address] Performed By: #### 2 4321-2 ####[facility]ATORYCLIA [id number] [place] [address] [place] CBC W Auto Differential pane l (Bld)on 12-18-2024 Basophils (Bld) [#/Vol] 0.06 10*3/uL Normal <0.11 [facility] Comment on above: Order Comment: Speci men Type: BLOOD SPECIMENOrdering Facility: [facility] Address: [address] [place] [address] Performed By: #### 5 7021-8 ####[facility]ATORYCLIA [id number] [place] [address] [place] Basophils/100 WBC (Bld) 0.7 % Normal [facility] Comment on above: Order Comment: Speci men Type: BLOOD SPECIMENOrdering Facility: [facility] Address: [address] [place] [address] Performed By: #### 5 7021-8 ####[facility]ATORYCLIA [id number] [address] [place] Differential cell count method Nom (Bld) Auto Normal [facility] Comment on above: Order Comment: Speci men Type: BLOOD SPECIMENOrdering Facility: [facility] Address: [address] [place] [address] Performed By: #### 5 7021-8 ####[facility]ATORYCLIA [id number] [place] [address] [place] Eosinophils (Bld) [#/Vol] 0.14 10*3/uL Normal <0.46 [facility] Comment on above: Order Comment: Speci men Type: BLOOD SPECIMENOrdering Facility: [facility] Address: [address] [place] [address] Performed By: #### 5 7021-8 ####[facility]ATORYCLIA [id number] [address] STATES [facility] Eosinophils/100 WBC (Bld) 1.7 % Normal [facility] Comment on above: Order Comment: Speci men Type: BLOOD SPECIMENOrdering Facility: [facility] Address: [address] [place] [address] Performed By: #### 5 7021-8 ####[facility]ATORYCLIA [id number] [address] [place] Erythrocyte distribution width (RBC) [Ratio] 14.1 % Normal 11.5-15.0 [facility] Comment on above: Order Comment: Speci men Type: BLOOD SPECIMENOrdering Facility: [facility] Address: [address] [place] [address] Performed By: #### 5 7021-8 ####[facility]ATORYCLIA [id number] [address] Hematocrit (Bld) [Volume fraction] 44.6 % Normal 39.0-51.0 [facility] Comment on above: Order Comment: Speci men Type: BLOOD SPECIMENOrdering Facility: [facility] Address: [address] [place] [address] Performed By: #### 5 7021-8 ####[facility]ATORYCLIA [id number] [address] [place] Hemoglobin (Bld) [Mass/Vol] 14.7 g/dL Normal 13.0-17.0 [facility] Comment on above: Order Comment: Speci men Type: BLOOD SPECIMENOrdering Facility: [facility] Address: [address] [place] [address] Performed By: #### 5 7021-8 ####[facility]ATORYCLIA [id number] [address] Immature granulocytes (Bld) [#/Vol] 0.04 10*3/uL Normal <0.10 [facility] Comment on above: Order Comment: Speci men Type: BLOOD SPECIMENOrdering Facility: [facility] Address: [address] [place] [address] Performed By: #### 5 7021-8 ####[facility]ATORYCLIA [id number] [address] Immature granulocytes/100 WBC (Bld) 0.5 % Normal [facility] Comment on above: Order Comment: Speci men Type: BLOOD SPECIMENOrdering Facility: [facility] Address: [address] [place] [address] Performed By: #### 5 7021-8 ####[facility]ATORYCLIA [id number] [address] Lymphocytes (Bld) [#/Vol] 1.50 10*3/uL Normal 1.00-4.00 [facility] Comment on above: Order Comment: Speci men Type: BLOOD SPECIMENOrdering Facility: [facility] Address: [address] [place] [address] Performed By: #### 5 7021-8 ####[facility]ATORYCLIA [id number] [address] Lymphocytes/100 WBC (Bld) 17.8 % Normal [facility] Comment on above: Order Comment: Speci men Type: BLOOD SPECIMENOrdering Facility: [facility] Address: [address] [place] [address] Performed By: #### 5 7021-8 ####[facility]ORYCLIA [id number] [address] MCH (RBC) [Entitic mass] 32.2 pg Normal 26.0-34.0 [facility] Comment on above: Order Comment: Speci men Type: BLOOD SPECIMENOrdering Facility: [facility] Address: [address] [place] [address] Performed By: #### 5 7021-8 ####[facility]ORYCLIA [id number] [address] MCHC (RBC) [Mass/Vol] 33.0 g/dL Normal 30.5-36.0 [facility] Comment on above: Order Comment: Speci men Type: BLOOD SPECIMENOrdering Facility: [facility] Address: [address] [place] [address] Performed By: #### 5 7021-8 ####[facility]ATORYCLIA [id number] [address] [place] MCV (RBC) [Entitic vol] 97.6 fL Normal 80.0-100.0 A [facility] Comment on above: Order Comment: Speci men Type: BLOOD SPECIMENOrdering Facility: [facility] Address: [address] [place] [address] Performed By: #### 5 7021-8 ####[facility]ATORYCLIA [id number] [address] [place] Monocytes (Bld) [#/Vol] 0.61 10*3/uL Normal <0.87 [facility] Comment on above: Order Comment: Speci men Type: BLOOD SPECIMENOrdering Facility: [facility] Address: [address] [place] [address] Performed By: #### 5 7021-8 ####[facility]ATORYCLIA [id number] [address] Monocytes/100 WBC (Bld) 7.2 % Normal [facility] Comment on above: Order Comment: Speci men Type: BLOOD SPECIMENOrdering Facility: [facility] Address: [address] [place] [address] Performed By: #### 5 7021-8 ####[facility]ATORYCLIA [id number] [address] [place] Neutrophils (Bld) [#/Vol] 6.09 10*3/uL Normal 1.45-7.50 [facility] Comment on above: Order Comment: Speci men Type: BLOOD SPECIMENOrdering Facility: [facility] Address: [address] [place] [address] Performed By: #### 5 7021-8 ####[facility]ATORYCLIA [id number] [address] [place] Neutrophils/100 WBC (Bld) 72.1 % Normal [facility] Comment on above: Order Comment: Speci men Type: BLOOD SPECIMENOrdering Facility: [facility] Address: [address] [place] [address] Performed By: #### 5 7021-8 ####[facility]ORYCLIA [id number] [address] [place] Nucleated RBC (Bld) [#/Vol] 10*3/uL Normal <0.01 [facility] Comment on above: Order Comment: Speci men Type: BLOOD SPECIMENOrdering Facility: [facility] Address: [address] [place] [address] Performed By: #### 5 7021-8 ####[facility]ORYCLIA [id number] [address] Nucleated RBC/100 WBC (Bld) [Ratio] 0.0 /100 WBC Normal [facility] Comment on above: Order Comment: Speci men Type: BLOOD SPECIMENOrdering Facility: [facility] Address: [address] [place] [address] Performed By: #### 5 7021-8 ####[facility]ATORYCLIA [id number] [address] [place] Platelet mean volume (Bld) [Entitic vol] 10.7 fL Normal 9.0-12.7 [facility] Comment on above: Order Comment: Speci men Type: BLOOD SPECIMENOrdering Facility: [facility] Address: [address] [place] [address] Performed By: #### 5 7021-8 ####[facility]ORYCLIA [id number] [address] [place] Platelets (Bld) [#/Vol] 173 10*3/uL Normal 150-400 [facility] Comment on above: Order Comment: Speci men Type: BLOOD SPECIMENOrdering Facility: [facility] Address: [address] [place] [address] Performed By: #### 5 7021-8 ####[facility]ATORYCLIA [id number] [address] [facility] RBC (Bld) [#/Vol] 4.57 10*6/uL Normal 4.20-6.00 [facility] Comment on above: Order Comment: Speci men Type: BLOOD SPECIMENOrdering Facility: [facility] Address: [address] [place] [address] Performed By: #### 5 7021-8 ####[facility]ORYCLIA [id number] [address] WBC (Bld) [#/Vol] 8.44 10*3/uL Normal 3.70-11.00 [facility] Comment on above: Order Comment: Speci men Type: BLOOD SPECIMENOrdering Facility: [facility] Address: [address] [place] [address] Performed By: #### 5 7021-8 ####[facility]ATORYCLIA [id number] [address] ECG COMPLETEon 12-18-2024 ECG COMPLETE Ventricular Rate : 6 3 BPM Atrial Rate : 63 BPM P-R Interval : 120 ms QRS Duration : 184 ms Q-T Interval : 478 ms QTC Calculation(Bazett) : 489 ms Calculated R [place] : 263 degrees Calculated T [place] : 72 degrees AV dual-paced rhythm WITH OCCASIONAL PREMATURE VENTRICULAR COMPLEXES Biventricular pacemaker detected ABNORMAL ECG WHEN COMPARED WITH ECG OF 22-Aug-2022 07:37, VENT. RATE HAS DECREASED by 8 bpm Confirmed by DO DENNIS CHRISTINA ([id number]) on 12/19/2024 6:32:26 AM NAME : FRANK ZIMMER PID : [id number] : 1960 Gender : Male Race : ORD : [id number] Procedure Date : Dec 18 2024 12:02:08 Edit Date : Dec 19 2024 06:32:30 Diagnosis: AV dual-paced rhythm WITH OCCASIONAL PREMATURE VENTRICULAR COMPLEXES Biventricular pacemaker detected ABNORMAL ECG WHEN COMPARED WITH ECG OF 22-Aug-2022 07:37, VENT. RATE HAS DECREASED by 8 bpm Confirmed by DO DENNIS CHRISTINA ([id number]) on 12/19/2024 6:32:26 AM Test Reason : Chest Pain Location : 4 : AKED Overread By : DO DENNIS CHRISTINA Edited By : DO DENNIS CHRISTINA Referred By : , Acquired by : TONY MCGOWAN [facility] ED Triage Noteon 12-18-2024 ED Triage Note HNO ID: [id number] Author: MELINA NUR PA-C Service: Emergency Medicine Author Type: Physician Locket Maker Type: ED Triage Notes Filed: 12/18/2024 12:00 Note Text: ED TRIAGE PROVIDER NOTE Patient Name: Frank Zimmer Service Date: 12/18/24 Provider in triage As provider in triage my care is limited to quick assessment and initiation of any orders able to be performed during triage. BRIEF HPI: This is a 64 year old male who presents to the ED sent by MD for concerns with his pacemaker. Was supposed to have outpatient cervical spine surgery at [facility], but he stated the anesthesiologist and surgeon felt like he would be better suited at [facility] So he presents today. He denies any other complaints. No chest pain, shortness of breath. Has had chronic neck issues x years. Recent MRI with compression in neck per patient. Chronic intermittent numbness to hands. BRIEF EXAM: Constitutional: NAD HEENT: Normocephalic, atraumatic. Respiratory: No distress Cardiac: RRR, heart sounds normal. Musculoskeltal: QUINN x4. Neuro: AANDOx3. Skin: Warm and dry. INITIAL WORKUP AND DECISION MAKING: Orders Placed This Encounter CBC + DIFF BASIC METABOLIC PNL ECG COMPLETE SIGNATURE: Melina Nur PA-C Normal [facility] Absolute lymphocyte countOrd ered By: Reagan Soto on 12-17-2024 Lymphocytes Auto (Unsp spec) [#/Vol] 1.19 10*3/uL 0.83-4.51 [facility] Absolute neutrophil countOrd ered By: Reagan Soto on 12-17-2024 Neutrophils (Bld) [#/Vol] 6.8 10*3/uL 2.0-7.7 [facility] Albumin to globulin ratioOrd ered By: Reagan Soto on 12-17-2024 Albumin/Globulin [Mass ratio] 1.0 {ratio} 0.9-2.4 [facility] Automated lymphocyte count a s percentage of total leukocytesOrdered By: Reagan Soto on 12-17-2024 Lymphocytes/100 WBC Auto (Unsp spec) 13.5 % Low 19-41 [facility] Basophil percentageOrdered B y: Reagan Soto on 12-17-2024 Basophils/100 WBC (Bld) 0.6 % 0-1 [facility] Bilirubin, totalOrdered By: Reagan Soto on 12-17-2024 Bilirubin [Mass/Vol] 0.20 mg/dL 0.20-1.00 [facility] Comment on above: For patients on eltr ombopag therapy, use of Dimension Magness TBIL is not recommended. Blood urea nitrogen (BUN)/cr eatinine ratioOrdered By: Reagan Soto on 12-17-2024 Urea nitrogen/Creatinine [Mass ratio] 30.7 mg/mg High 10-20 [facility] CBC W/Diff, Automatedon 11-25 Absolute Lymph 1.19 X10 3/uL Normal 0.83-4.51 [facility] Comment on above: Order Comment: Order Date: 08/02/24Order Info: 0184-1 - CBCD Performed By: #### L 501.5200, L100.0100, L502.0250, L500.4100, L501.9520, L501.9985, L500.4050 ####[facility] [address] [place], [place], [phone] Absolute Neut 6.8 X10 3/uL Normal 2.0-7.7 [facility] Comment on above: Order Comment: Order Date: 08/02/24Order Info: 0184-1 - CBCD Performed By: #### L 501.5200, L100.0100, L502.0250, L500.4100, L501.9520, L501.9985, L500.4050 ####[facility] [address] [place], [place], [id number] Basophils/100 WBC (Bld) 0.6 % Normal 0-1 [facility] Comment on above: Order Comment: Order Date: 08/02/24Order Info: 0184-1 - CBCD Performed By: #### L 501.5200, L100.0100, L502.0250, L500.4100, L501.9520, L501.9985, L500.4050 ####[facility] [address] [place], [address] Eosinophils/100 WBC (Bld) 1.2 % Normal 0-5 [facility] Comment on above: Order Comment: Order Date: 08/02/24Order Info: 018-1 - CBCD Performed By: #### L 501.5200, L100.0100, L502.0250, L500.4100, L501.9520, L501.9985, L500.4050 ####[facility] [address] [place], [address] Erythrocyte distribution width (RBC) [Ratio] 13.8 % Normal 11.6-14.6 [facility] Comment on above: Order Comment: Order Date: 08/02/24Order Info: 018-1 - CBCD Performed By: #### L 501.5200, L100.0100, L502.0250, L500.4100, L501.9520, L501.9985, L500.4050 ####[facility] [address] [place], [address] Hematocrit (Bld) [Volume fraction] 42.6 % Normal 40-54 [facility] Comment on above: Order Comment: Order Date: 08/02/24Order Info: 0184-1 - CBCD Performed By: #### L 501.5200, L100.0100, L502.0250, L500.4100, L501.9520, L501.9985, L500.4050 ####[facility] [address] [place], [address] Hemoglobin (Bld) [Mass/Vol] 14.0 g/dL Normal 13.0-16.5 [facility] Comment on above: Order Comment: Order Date: 08/02/24Order Info: 018- - CBCD Performed By: #### L 501.5200, L100.0100, L502.0250, L500.4100, L501.9520, L501.9985, L500.4050 ####[facility] [address] [place], [address] IG% 0.500 Normal 0.0-0.9 [facility] Comment on above: Order Comment: Order Date: 08/02/24Order Info: 018- - CBCD Result Comment: IG% - Immature Granulocytes (promyelocytes, myelocytes andmetamyelocytes) > 1% indicates that a LEFT SHIFT is Present. Performed By: #### L 501.5200, L100.0100, L502.0250, L500.4100, L501.9520, L501.9985, L500.4050 ####[facility] [address] [place], [address] Lymphocytes/100 WBC (Bld) 13.5 % Low 19-41 [facility] Comment on above: Order Comment: Order Date: 08/02/24Order Info: 018- - CBCD Performed By: #### L 501.5200, L100.0100, L502.0250, L500.4100, L501.9520, L501.9985, L500.4050 ####[facility] [address] [place], [address] MCH (RBC) [Entitic mass] 31.6 pg Normal 27.0-32.0 [facility] Comment on above: Order Comment: Order Date: 08/02/24Order Info: 0184- - CBCD Performed By: #### L 501.5200, L100.0100, L502.0250, L500.4100, L501.9520, L501.9985, L500.4050 ####[facility] [address] [place], [address] MCHC (RBC) [Mass/Vol] 32.9 g/dL Normal 32-36 [facility] Comment on above: Order Comment: Order Date: 08/02/24Order Info: 183- - CBCD Performed By: #### L 501.5200, L100.0100, L502.0250, L500.4100, L501.9520, L501.9985, L500.4050 ####[facility] [address] [place], [address] MCV (RBC) [Entitic vol] 96.2 fL High 80-94 [facility] Comment on above: Order Comment: Order Date: 08/02/24Order Info: 183-10 - CBCD Performed By: #### L 501.5200, L100.0100, L502.0250, L500.4100, L501.9520, L501.9985, L500.4050 ####[facility] [address] [place], [address] Monocytes/100 WBC (Bld) 7.5 % Normal 0-10 [facility] Comment on above: Order Comment: Order Date: 08/02/24Order Info: 018- - CBCD Performed By: #### L 501.5200, L100.0100, L502.0250, L500.4100, L501.9520, L501.9985, L500.4050 ####[facility] [address] [place], [address] Neutrophils/100 WBC (Bld) 76.7 % High 47-70 [facility] Comment on above: Order Comment: Order Date: 08/02/24Order Info: 018- - CBCD Performed By: #### L 501.5200, L100.0100, L502.0250, L500.4100, L501.9520, L501.9985, L500.4050 ####[facility] [address] [place], [address] Nucleated RBC (Bld) [#/Vol] 0 10*3/uL Normal 0-5 [facility] Comment on above: Order Comment: Order Date: 08/02/24Order Info: [id number] - CBCD Performed By: #### L 501.5200, L100.0100, L502.0250, L500.4100, L501.9520, L501.9985, L500.4050 ####[facility] [address] [place], [address] Platelet mean volume (Bld) [Entitic vol] 10.9 fL Normal 6.2-12.0 [facility] Comment on above: Order Comment: Order Date: 08/02/24Order Info: 018- - CBCD Performed By: #### L 501.5200, L100.0100, L502.0250, L500.4100, L501.9520, L501.9985, L500.4050 ####[facility] [address] [place], [address] Platelets (Bld) [#/Vol] 166 10*3/uL Normal 150-450 [facility] Comment on above: Order Comment: Order Date: 08/02/24Order Info: 018- - CBCD Performed By: #### L 501.5200, L100.0100, L502.0250, L500.4100, L501.9520, L501.9985, L500.4050 ####[facility] [address] [place], [address] RBC (Bld) [#/Vol] 4.43 10*6/uL Low 4.6-6.[address] [facility] Comment on above: Order Comment: Order Date: 08/02/24Order Info: 018- - CBCD Performed By: #### L 501.5200, L100.0100, L502.0250, L500.4100, L501.9520, L501.9985, L500.4050 ####[facility] [address] [place], [address] RDW SD 49.4 fl High 35.1-43.9 [facility] Comment on above: Order Comment: Order Date: 08/02/24Order Info: [id number] - CBCD Performed By: #### L 501.5200, L100.0100, L502.0250, L500.4100, L501.9520, L501.9985, L500.4050 ####[facility] [address] [place], [place], [phone] WBC (Bld) [#/Vol] 8.8 10*3/uL Normal 4.4-11.0 [facility] Comment on above: Order Comment: Order Date: 08/02/24Order Info: 0184- - CBCD Performed By: #### L 501.5200, L100.0100, L502.0250, L500.4100, L501.9520, L501.9985, L500.4050 ####[facility] [address] [place], [place], [id number] Carbon dioxide measurementOr dered By: Reagan Soto on 12-17-2024 CO2 [Moles/Vol] 27.0 mmol/L 21.0-32.0 [facility] Chloride measurementOrdered By: Reagan Soto on 12-17-2024 Chloride [Moles/Vol] 108 mmol/L High 98-107 [facility] Comprehensive Metabolic Prof ilon 12-17-2024 Albumin [Mass/Vol] 3.3 g/dL Normal 3.2-5.0 [facility] Comment on above: Order Comment: Order Date: 08/02/24Order Info: [id number] - CMPOrder Info: [id number] - LIPIDOrder Info: [id number] - MGOrder Info: [id number] - TSH Performed By: #### L 501.5200, L100.0100, L502.0250, L500.4100, L501.9520, L501.9985, L500.4050 ####[facility] [address] [place], [address] Albumin/Globulin [Mass ratio] 1.0 {ratio} Normal 0.9-2.4 [facility] Comment on above: Order Comment: Order Date: 08/02/24Order Info: 86-1 - CMPOrder Info: [id number] - LIPIDOrder Info: [id number] - MGOrder Info: [id number] - TSH Performed By: #### L 501.5200, L100.0100, L502.0250, L500.4100, L501.9520, L501.9985, L500.4050 ####[facility] [address] [place], [address] ALK P 75 U/L Normal 45-117 [facility] Comment on above: Order Comment: Order Date: 08/02/24Order Info: 785- - CMPOrder Info: - LIPIDOrder Info: [id number] - MGOrder Info: [id number] - TSH Performed By: #### L 501.5200, L100.0100, L502.0250, L500.4100, L501.9520, L501.9985, L500.4050 ####[facility] [address] [place], [address] ALT [Catalytic activity/Vol] 36 U/L Normal 16-61 [facility] Comment on above: Order Comment: Order Date: 08/02/24Order Info: 86-1 - CMPOrder Info: [id number] - LIPIDOrder Info: [id number] - MGOrder Info: [id number] - TSH Performed By: #### L 501.5200, L100.0100, L502.0250, L500.4100, L501.9520, L501.9985, L500.4050 ####[facility] [address] [place], [address] AST [Catalytic activity/Vol] 23 U/L Normal 15-37 [facility] Comment on above: Order Comment: Order Date: 08/02/24Order Info: 86-1 - CMPOrder Info: [id number] - LIPIDOrder Info: [id number] - MGOrder Info: [id number] - TSH Performed By: #### L 501.5200, L100.0100, L502.0250, L500.4100, L501.9520, L501.9985, L500.4050 ####[facility] [address] [place], [address] Bilirubin [Mass/Vol] 0.20 mg/dL Normal 0.20-1.00 [facility] Comment on above: Order Comment: Order Date: 08/02/24Order Info: [id number] - CMPOrder Info: - LIPIDOrder Info: - MGOrder Info: [id number] - TSH Result Comment: For patients on eltrombopag therapy, use of Dimension Magness TBIL is not recommended. Performed By: #### L 501.5200, L100.0100, L502.0250, L500.4100, L501.9520, L501.9985, L500.4050 ####[facility] [address] [place], [address] BUN/CRE 30.7 RATIO High 10-20 [facility] Comment on above: Order Comment: Order Date: 08/02/24Order Info: 785- - CMPOrder Info: [id number] - LIPIDOrder Info: [id number] - MGOrder Info: [id number] - TSH Performed By: #### L 501.5200, L100.0100, L502.0250, L500.4100, L501.9520, L501.9985, L500.4050 ####[facility] [address] [place], [address] CA,Total 8.6 mg/dL Normal 8.5-10.1 [facility] Comment on above: Order Comment: Order Date: 08/02/24Order Info: 785- - CMPOrder Info: - LIPIDOrder Info: - MGOrder Info: [id number] - TSH Performed By: #### L 501.5200, L100.0100, L502.0250, L500.4100, L501.9520, L501.9985, L500.4050 ####[facility] [address] [place], [address] Chloride [Moles/Vol] 108 mmol/L High 98-107 [facility] Comment on above: Order Comment: Order Date: 08/02/24Order Info: [id number] - CMPOrder Info: - LIPIDOrder Info: - MGOrder Info: [id number] - TSH Performed By: #### L 501.5200, L100.0100, L502.0250, L500.4100, L501.9520, L501.9985, L500.4050 ####[facility] [address] [place], [address] CO2 [Moles/Vol] 27.0 mmol/L Normal 21.0-32.0 [facility] Comment on above: Order Comment: Order Date: 08/02/24Order Info: [id number] - CMPOrder Info: - LIPIDOrder Info: - MGOrder Info: 3 - TSH Performed By: #### L 501.5200, L100.0100, L502.0250, L500.4100, L501.9520, L501.9985, L500.4050 ####[facility] [address] [place], [address] Creatinine [Mass/Vol] 0.59 mg/dL Low 0.70-1.30 [facility] Comment on above: Order Comment: Order Date: 08/02/24Order Info: 785- - CMPOrder Info: [id number] - LIPIDOrder Info: [id number] - MGOrder Info: [id number] - TSH Result Comment: The validity of the calculated GFR GFRAA in patients over70 years has not been determined. Clinical correlation isessential. Performed By: #### L 501.5200, L100.0100, L502.0250, L500.4100, L501.9520, L501.9985, L500.4050 ####[facility] [address] [place], [address] EST GFR - AA 178 mL/min Normal >60 [facility] Comment on above: Order Comment: Order Date: 08/02/24Order Info: [id number] - CMPOrder Info: [id number] - LIPIDOrder Info: [id number] - MGOrder Info: [id number] - TSH Result Comment: Afri can [place]ian GFR Calc Performed By: #### L 501.5200, L100.0100, L502.0250, L500.4100, L501.9520, L501.9985, L500.4050 ####[facility] [address] [place], [address] GAP 6 Normal 5-15 [facility] Comment on above: Order Comment: Order Date: 08/02/24Order Info: [id number] - CMPOrder Info: [id number] - LIPIDOrder Info: [id number] - MGOrder Info: [id number] - TSH Performed By: #### L 501.5200, L100.0100, L502.0250, L500.4100, L501.9520, L501.9985, L500.4050 ####[facility] [address] [place], [place], [address] GFR/1.73 sq M.predicted among non-blacks MDRD (S/P/Bld) [Vol rate/Area] 148 mL/min/{1.73_m2} Normal >60 [facility] Comment on above: Order Comment: Order Date: 08/02/24Order Info: [id number] - CMPOrder Info: [id number] - LIPIDOrder Info: - MGOrder Info: [id number] - TSH Result Comment: Non- GFR Calc Performed By: #### L 501.5200, L100.0100, L502.0250, L500.4100, L501.9520, L501.9985, L500.4050 ####[facility] [address] [place], [address] Globulin (S) [Mass/Vol] 3.2 g/dL Normal 2.2-4.2 [facility] Comment on above: Order Comment: Order Date: 08/02/24Order Info: [id number] - CMPOrder Info: - LIPIDOrder Info: - MGOrder Info: [id number] - TSH Performed By: #### L 501.5200, L100.0100, L502.0250, L500.4100, L501.9520, L501.9985, L500.4050 ####[facility] [address] [place], [address] Glucose [Mass/Vol] 148 mg/dL High 74-106 [facility] Comment on above: Order Comment: Order Date: 08/02/24Order Info: [id number] - CMPOrder Info: - LIPIDOrder Info: - MGOrder Info: 3 - TSH Result Comment: Fast ing Glucose result greater than or equal to 126 mg/dLsuggests DIABETES MELLITUS per A.D.A. criteria. Performed By: #### L 501.5200, L100.0100, L502.0250, L500.4100, L501.9520, L501.9985, L500.4050 ####[facility] [address] [place], [address] Potassium [Moles/Vol] 3.8 mmol/L Normal 3.5-5.1 [facility] Comment on above: Order Comment: Order Date: 08/02/24Order Info: [id number] - CMPOrder Info: [id number] - LIPIDOrder Info: - MGOrder Info: [id number] - TSH Performed By: #### L 501.5200, L100.0100, L502.0250, L500.4100, L501.9520, L501.9985, L500.4050 ####[facility] [address] [place], [address] Sodium [Moles/Vol] 141 mmol/L Normal 136-145 [facility] Comment on above: Order Comment: Order Date: 08/02/24Order Info: 86-1 - CMPOrder Info: [id number] - LIPIDOrder Info: - MGOrder Info: 3 - TSH Performed By: #### L 501.5200, L100.0100, L502.0250, L500.4100, L501.9520, L501.9985, L500.4050 ####[facility] [address] [place], [address] T PROT 6.5 g/dL Normal 6.4-8.2 [facility] Comment on above: Order Comment: Order Date: 08/02/24Order Info: 785- - CMPOrder Info: [id number] - LIPIDOrder Info: - MGOrder Info: [id number] - TSH Performed By: #### L 501.5200, L100.0100, L502.0250, L500.4100, L501.9520, L501.9985, L500.4050 ####[facility] [address] [place], [address] Urea nitrogen [Mass/Vol] 18 mg/dL Normal 7-18 [facility] Comment on above: Order Comment: Order Date: 08/02/24Order Info: 86-1 - CMPOrder Info: [id number] - LIPIDOrder Info: [id number] - MGOrder Info: 301-3 - TSH Performed By: #### L 501.5200, L100.0100, L502.0250, L500.4100, L501.9520, L501.9985, L500.4050 ####[facility] [address] [place], [address] Eosinophil percentageOrdered By: Reagan Soto on 12-17-2024 Eosinophils/100 WBC (Bld) 1.2 % 0-5 [facility] Erythrocyte distribution wid th ratioOrdered By: Reagan Soto on 12-17-2024 Erythrocyte distribution width (RBC) [Ratio] 13.8 % 11.6-14.6 [facility] Erythrocyte distribution wid th standard deviationOrdered By: Reagan Soto on 12-17-2024 Erythrocyte distribution width (RBC) [Entitic vol] 49.4 fL High 35.1-43.9 [facility] Erythrocyte distribution width (RBC) [Ratio] 49.4 fl High 35.1-43.9 [facility] Estimated glomerular filtrat ion rate (GFR) AmericanOrdered By: Reagan Soto on 12-17-2024 Estimated GFR (MDRD) Amer 178 mL/min >60 [facility] Comment on above: GFR Calc Glomerular filtration rate ( GFR) estimationOrdered By: Reagan Soto on 12-17-2024 Estimated GFR (MDRD) Non-Af Amer 148 mL/min >60 [facility] Comment on above: Non- GFR Calc GFR/1.73 sq M.predicted among non-blacks MDRD (S/P/Bld) [Vol rate/Area] 148 mL/min/{1.73_m2} >60 [facility] Comment on above: Non- GFR Calc Glucose measurementOrdered B y: Reagan Soto on 12-17-2024 Glucose [Mass/Vol] 148 mg/dL High 74-106 [facility] Comment on above: Fasting Glucose resu lt greater than or equal to 126 mg/dL suggests DIABETES MELLITUS per A.D.A. criteria. Hematocrit Auto (Bld) [Volum e fraction]Ordered By: Reagan Soto on 12-17-2024 Hematocrit (Bld) [Volume fraction] 42.6 % 40-54 [facility] Hemoglobin A1con 12-17-2024 HbA1c (Bld) [Mass fraction] 6.3 % High 3.8-5.6 [facility] Comment on above: Order Comment: Order Date: 08/02/24Order Info: [id number] - A1C Result Comment: Norm al < 5.7 % Prediabetic 5.7 - 6.4 % Diabetic >or= 6.5 % Please note range changes. Performed By: #### L 501.5200, L100.0100, L502.0250, L500.4100, L501.9520, L501.9985, L500.4050 ####[facility] [address] [place], [address] Hemoglobin A1c percentageOrd ered By: Reagan Soto on 12-17-2024 HbA1c (Bld) [Mass fraction] 6.3 % High 3.8-5.6 [facility] Comment on above: Normal < 5.7 % Predi abetic 5.7 - 6.4 % Diabetic >or= 6.5 % Please note range changes. Hemoglobin measurementOrdere d By: Reagan Soto on 12-17-2024 Hemoglobin (Bld) [Mass/Vol] 14.0 g/dL 13.0-16.5 [facility] High density lipoprotein (HD L) measurementOrdered By: Reagan Soto on 12-17-2024 Cholesterol in HDL [Mass/Vol] 53 mg/dL >40 [facility] Comment on above: The drugs N-Acetylcy steine and Metamizole may falsely depress this assay. Reference Range HDL <40 mg/dL Low HDL Cholesterol HDL >or= 60 mg/dL High HDL Cholesterol Immature granulocytes/100 WB C Auto (Bld)Ordered By: Reagan Soto on 12-17-2024 Immature granulocytes/100 WBC (Bld) 0.500 % 0.0-0.9 [facility] Comment on above: IG% - Immature Granu locytes (promyelocytes, myelocytes and metamyelocytes) > 1% indicates that a LEFT SHIFT is Present. Laboratory - Chemistry and C hemistry - challengeOrdered By: Reagan Soto on 12-17-2024 AST [Catalytic activity/Vol] 23 U/L 15-37 [facility] Lipid Profileon 12-17-2024 Cholesterol [Mass/Vol] 113 mg/dL Normal 200 [facility] Comment on above: Order Comment: Order Date: 08/02/24Order Info: 785- - CMPOrder Info: [id number] - LIPIDOrder Info: - MGOrder Info: 3 - TSH Result Comment: <200 mg/dL Desirable 200-240 mg/dL Borderline >240 mg/dL High Risk Performed By: #### L 501.5200, L100.0100, L502.0250, L500.4100, L501.9520, L501.9985, L500.4050 ####[facility] [address] [place], [address] Cholesterol in HDL [Mass/Vol] 53 mg/dL Normal [facility] Comment on above: Order Comment: Order Date: 08/02/24Order Info: [id number] - CMPOrder Info: - LIPIDOrder Info: - MGOrder Info: [id number] - TSH Result Comment: The drugs N-Acetylcysteine and Metamizole may falselydepress this assay. Reference Range HDL <40 mg/dL Low HDL Cholesterol HDL >or= 60 mg/dL High HDL Cholesterol Performed By: #### L 501.5200, L100.0100, L502.0250, L500.4100, L501.9520, L501.9985, L500.4050 ####[facility] [address] [place], [address] Cholesterol in LDL [Mass/Vol] 49 mg/dL Normal 0-130 [facility] Comment on above: Order Comment: Order Date: 08/02/24Order Info: [id number] - CMPOrder Info: [id number] - LIPIDOrder Info: - MGOrder Info: [id number] - TSH Performed By: #### L 501.5200, L100.0100, L502.0250, L500.4100, L501.9520, L501.9985, L500.4050 ####[facility] [address] [place], [address] Cholesterol in VLDL [Mass/Vol] 11 mg/dL Normal 5-40 [facility] Comment on above: Order Comment: Order Date: 08/02/24Order Info: 07- - CMPOrder Info: [id number] - LIPIDOrder Info: [id number] - MGOrder Info: [id number] - TSH Performed By: #### L 501.5200, L100.0100, L502.0250, L500.4100, L501.9520, L501.9985, L500.4050 ####[facility] [address] [place], [place], [address] Triglyceride [Mass/Vol] 57 mg/dL Normal [facility] Comment on above: Order Comment: Order Date: 08/02/24Order Info: [id number] - CMPOrder Info: [id number] - LIPIDOrder Info: - MGOrder Info: [id number] - TSH Result Comment: The drugs N-Acetylcysteine and Metamizole may falselydepress this assay.Serum Triglycerides Reference Interval Normal <150 mg/dL Borderline high 150 - 199 mg/dL High 200 - 499 mg/dL Very High > or = 500 mg/dL Performed By: #### L 501.5200, L100.0100, L502.0250, L500.4100, L501.9520, L501.9985, L500.4050 ####[facility] [address] [place], [place], [address] Low density lipoprotein (LDL ) cholesterol measurementOrdered By: Reagan Soto on 12-17-2024 Cholesterol in LDL [Mass/Vol] 49 mg/dL 0-130 [facility] Lymphocytes Auto (Unsp spec) [#/Vol]Ordered By: Reagan Soto on 12-17-2024 Lymphocytes (Bld) [#/Vol] 1.19 10*3/uL 0.83-4.51 [facility] Lymphocytes/100 WBC Auto (Un sp spec)Ordered By: Reagan Soto on 12-17-2024 Lymphocytes/100 WBC (Bld) 13.5 % Low 19-41 [facility] MCV (mean corpuscular volume ) determinationOrdered By: Reagan Soto on 12-17-2024 MCV (RBC) [Entitic vol] 96.2 fL High 80-94 [facility] Magnesiumon 12-17-2024 Magnesium [Mass/Vol] 2.3 mg/dL Normal 1.6-2.6 [facility] Comment on above: Order Comment: Order Date: 08/02/24Order Info: [id number] - CMPOrder Info: [id number] - LIPIDOrder Info: [id number] - MGOrder Info: [id number] - TSH Performed By: #### L 501.5200, L100.0100, L502.0250, L500.4100, L501.9520, L501.9985, L500.4050 ####[facility] [address] [place], [address] Magnesium measurementOrdered By: Reagan Soto on 12-17-2024 Magnesium [Mass/Vol] 2.3 mg/dL 1.6-2.6 [facility] Mean corpuscular hemoglobin (MCH) determinationOrdered By: Reagan Soto on 12-17-2024 MCH (RBC) [Entitic mass] 31.6 pg 27.0-32.0 [facility] Mean corpuscular hemoglobin concentration (MCHC) determinationOrdered By: Reagan Soto on 12-17-2024 MCHC (RBC) [Mass/Vol] 32.9 g/dL 32-36 [facility] Mean platelet volume determi nationOrdered By: Reagan Soto on 12-17-2024 Platelet mean volume (Bld) [Entitic vol] 10.9 fL 6.2-12.0 [facility] Microalb:Creat Ratio,Random URon 12-17-2024 MALB:CRE Normal <30 mg/g CRE [facility] Comment on above: Order Comment: Order Date: 08/02/24Order Info: [id number] - MIACRE Result Comment: UTO Performed By: #### L 501.5200, L100.0100, L502.0250, L500.4100, L501.9520, L501.9985, L500.4050 ####[facility] [address] [place], [address] MICROALBUMIN,UR Normal NO RANGE EST. [facility] Comment on above: Order Comment: Order Date: 08/02/24Order Info: [id number] - MIACRE Result Comment: UTO Performed By: #### L 501.5200, L100.0100, L502.0250, L500.4100, L501.9520, L501.9985, L500.4050 ####[facility] [address] [place], [address] UR CREAT Normal NO RANGE EST. [facility] Comment on above: Order Comment: Order Date: 08/02/24Order Info: [id number] - MIACRE Result Comment: UTO Performed By: #### L 501.5200, L100.0100, L502.0250, L500.4100, L501.9520, L501.9985, L500.4050 ####[facility] [address] [place], [address] Monocyte percentageOrdered B y: Reagan Soto on 12-17-2024 Monocytes/100 WBC (Bld) 7.5 % 0-10 [facility] Neutrophil percentageOrdered By: Reagan Soto on 12-17-2024 Neutrophils/100 WBC (Bld) 76.7 % High 47-70 [facility] Nucleated red blood cell per centageOrdered By: Reagan Soto on 12-17-2024 Nucleated RBC/100 WBC (Bld) [Ratio] 0 % 0-5 [facility] Platelet countOrdered By: Jackie Soto on 12-17-2024 Platelets (Bld) [#/Vol] 166 10*3/uL 150-450 [facility] Potassium measurementOrdered By: Reagan Soto on 12-17-2024 Potassium [Moles/Vol] 3.8 mmol/L 3.5-5.1 [facility] RBC Auto (Bld) [#/Vol]Ordere d By: Reagan Soto on 12-17-2024 RBC (Bld) [#/Vol] 4.43 10*6/uL Low 4.6-6.[address] [facility] Serum anion gap measurementO rdered By: Reagan Soto on 12-17-2024 Anion gap [Moles/Vol] 6 mmol/L 5-15 [facility] Serum globulin measurementOr dered By: Reagan Soto on 12-17-2024 Globulin (S) [Mass/Vol] 3.2 g/dL 2.2-4.2 [facility] Serum or plasma alanine ling otransferase (ALT) measurementOrdered By: Reagan Soto on 12-17-2024 ALT [Catalytic activity/Vol] 36 U/L 16-61 [facility] Serum or plasma albumin amaya urement (mass/volume)Ordered By: Reagan Soto on 12-17-2024 Albumin [Mass/Vol] 3.3 g/dL 3.2-5.0 [facility] Serum or plasma alkaline nnamdi sphatase measurementOrdered By: Reagan Soto on 12-17-2024 ALP [Catalytic activity/Vol] 75 U/L 45-117 [facility] Serum or plasma calcium amaya urement (mass/volume)Ordered By: Reagan Soto on 12-17-2024 Calcium [Mass/Vol] 8.6 mg/dL 8.5-10.1 [facility] Serum or plasma cholesterol measurement (mass/volume)Ordered By: Reagan Soto on 12-17-2024 Cholesterol [Mass/Vol] 113 mg/dL <200 [facility] Comment on above: <200 mg/dL Desirable 200-240 mg/dL Borderline >240 mg/dL High Risk Serum or plasma creatinine m easurement (mass/volume)Ordered By: Reagan Soto on 12-17-2024 Creatinine [Mass/Vol] 0.59 mg/dL Low 0.70-1.30 [facility] Comment on above: The validity of the calculated GFR & GFRAA in patients over 70 years has not been determined. Clinical correlation is essential. Serum or plasma thyroid stim ulating hormone (TSH) measurement (units/volume)Ordered By: Reagan Soto on 12-17-2024 TSH Qn 1.760 uIU/mL 0.358-3.74 0 [facility] Serum or plasma urea nitroge n measurement (mass/volume)Ordered By: Reagan Soto on 12-17-2024 Urea nitrogen [Mass/Vol] 18 mg/dL 7-18 [facility] Sodium levelOrdered By: Reagan Soto on 12-17-2024 Sodium [Moles/Vol] 141 mmol/L 136-145 [facility] Spine Cervical without Contr ason 12-17-2024 Spine Cervical without Contras Normal [facility] TSH QnOrdered By: Reagan wright on 12-17-2024 Thyroid Stimulating Hormone (TSH) 1.760 uIU/mL 0.358-3.74 0 [facility] Thyroid Stim Hormone (TSH)on 12-17-2024 TSH 1.760 uIU/mL Normal 0.358-3.74 0 [facility] Comment on above: Order Comment: Order Date: 08/02/24Order Info: [id number] - CMPOrder Info: [id number] - LIPIDOrder Info: [id number] - MGOrder Info: [id number] - TSH Performed By: #### L 501.5200, L100.0100, L502.0250, L500.4100, L501.9520, L501.9985, L500.4050 ####[facility] [id number] [place], [address] Total proteinOrdered By: Jonathan Soto on 12-17-2024 Protein [Mass/Vol] 6.5 g/dL 6.4-8.2 [facility] Triglycerides measurementOrd ered By: Reagan Soto on 12-17-2024 Triglyceride [Mass/Vol] 57 mg/dL <199 [facility] Comment on above: The drugs N-Acetylcy steine and Metamizole may falsely depress this assay.Serum Triglycerides Reference Interval Normal <150 mg/dL Borderline high 150 - 199 mg/dL High 200 - 499 mg/dL Very High > or = 500 mg/dL Very low density lipoprotein (VLDL) cholesterol measurementOrdered By: Reagan Soto on 12-17-2024 Very low density lipoprotein (VLDL) cholesterol measurement 11 mg/dL 5-40 [facility] VLDL Cholesterol 11 mg/dL 5-40 [facility] White blood cell (WBC) count Ordered By: Reagan Soto on 12-17-2024 WBC (Bld) [#/Vol] 8.8 10*3/uL 4.4-11.0 [facility] Cerv Spine 4 or 5 Viewson Cerv Spine 4 or 5 Views Normal [facility] Orthopedic Visit Reporton Orthopedic Visit Report Normal [facility] 36on 12-13-2024 36 Labs were entered TS H done 08/02/2024 . CBC & CMP done 10/30/2024. Sent to [facility] Spine Cervical W/WO Contrast on 12-10-2024 Spine Cervical W/WO Contrast Normal [facility] Basic Metabolic Profile (BMP )on 12-07-2024 BUN Normal -18 [facility] Comment on above: Result Comment: YANNA ENT DISCHARGED Performed By: #### L 100.0100, L500.2500 ####[facility] [address] [place], [address] BUN/CRE Normal 10- [facility] Comment on above: Result Comment: YANNA ENT DISCHARGED Performed By: #### L 100.0100, L500.2500 ####[facility] [address] [place], [address] CA,Total Normal 8.5-10.1 [facility] Comment on above: Result Comment: YANNA ENT DISCHARGED Performed By: #### L 100.0100, L500.2500 ####[facility] [address] [place], [address] CL Normal 98-107 [facility] Comment on above: Result Comment: YANNA ENT DISCHARGED Performed By: #### L 100.0100, L500.2500 ####[facility] [address] [place], [address] CO2 Normal 21.0-32.0 [facility] Comment on above: Result Comment: YANNA ENT DISCHARGED Performed By: #### L 100.0100, L500.2500 ####[facility] [address] [place], [address] CREAT,SERUM Normal 0.70-1.30 [facility] Comment on above: Result Comment: YANNA ENT DISCHARGED Performed By: #### L 100.0100, L500.2500 ####[facility] [address] [place], [address] EST GFR Normal >60 [facility] Comment on above: Result Comment: YANNA ENT DISCHARGED Performed By: #### L 100.0100, L500.2500 ####[facility] [address] [place], [address] EST GFR - AA Normal >60 [facility] Comment on above: Result Comment: YANNA ENT DISCHARGED Performed By: #### L 100.0100, L500.2500 ####[facility] [address] [place], [address] GAP Normal 5-15 [facility] Comment on above: Result Comment: YANNA ENT DISCHARGED Performed By: #### L 100.0100, L500.2500 ####[facility] [address] [place], [address] GLU Normal 74-106 [facility] Comment on above: Result Comment: YANNA ENT DISCHARGED Performed By: #### L 100.0100, L500.2500 ####[facility] [address] [place], [address] Potassium Normal 3.5-5.1 [facility] Comment on above: Result Comment: YANNA ENT DISCHARGED Performed By: #### L 100.0100, L500.2500 ####[facility] [address] [place], [address] Basic Metabolic Profile (BMP) Normal 136-145 [facility] Comment on above: Result Comment: YANNA ENT DISCHARGED Performed By: #### L 100.0100, L500.2500 ####[facility] [address] [place], [address] CBC W/Diff, Automatedon 11-24 Absolute Neut Normal 2.0-7.7 [facility] Comment on above: Result Comment: PT. DISCHARGED. DID NOT RECEIVE SPECIMEN Performed By: #### L 100.0100, L500.2500 ####[facility] [address] [place], [address] HCT Normal 40-54 [facility] Comment on above: Result Comment: PT. DISCHARGED. DID NOT RECEIVE SPECIMEN Performed By: #### L 100.0100, L500.2500 ####[facility] [address] [place], [address] HGB Normal 13.0-16.5 [facility] Comment on above: Result Comment: PT. DISCHARGED. DID NOT RECEIVE SPECIMEN Performed By: #### L 100.0100, L500.2500 ####[facility] [address] [place], [address] MCH Normal 27.0-32.0 [facility] Comment on above: Result Comment: PT. DISCHARGED. DID NOT RECEIVE SPECIMEN Performed By: #### L 100.0100, L500.2500 ####[facility] [address] [place], [address] MCHC Normal 32-36 [facility] Comment on above: Result Comment: PT. DISCHARGED. DID NOT RECEIVE SPECIMEN Performed By: #### L 100.0100, L500.2500 ####[facility] [address] [place], [address] MCV Normal 80-94 [facility] Comment on above: Result Comment: PT. DISCHARGED. DID NOT RECEIVE SPECIMEN Performed By: #### L 100.0100, L500.2500 ####[facility] [address] [place], [address] NEUT% Normal 47-70 [facility] Comment on above: Result Comment: PT. DISCHARGED. DID NOT RECEIVE SPECIMEN Performed By: #### L 100.0100, L500.2500 ####[facility] [address] [place], [address] PLT Normal 150-450 [facility] Comment on above: Result Comment: PT. DISCHARGED. DID NOT RECEIVE SPECIMEN Performed By: #### L 100.0100, L500.2500 ####[facility] [address] [place], [address] RBC Normal 4.6-6.2 [facility] Comment on above: Result Comment: PT. DISCHARGED. DID NOT RECEIVE SPECIMEN Performed By: #### L 100.0100, L500.2500 ####[facility] [address] [place], [address] RDW CV Normal 11.6-14.6 [facility] Comment on above: Result Comment: PT. DISCHARGED. DID NOT RECEIVE SPECIMEN Performed By: #### L 100.0100, L500.2500 ####[facility] [address] [place], [address] RDW SD Normal 35.1-43.9 [facility] Comment on above: Result Comment: PT. DISCHARGED. DID NOT RECEIVE SPECIMEN Performed By: #### L 100.0100, L500.2500 ####[facility] [address] [place], [address] WBC Normal 4.4-11.0 [facility] Comment on above: Result Comment: PT. DISCHARGED. DID NOT RECEIVE SPECIMEN Performed By: #### L 100.0100, L500.2500 ####[facility] [address] [place], [address] Emergency Department Summary on 12-07-2024 Emergency Department Summary Normal [facility] Brain W/WO Contraston 2024 Brain W/WO Contrast Normal [facility] Spine Lumbar (Routine)on Spine Lumbar (Routine) Normal [facility] 36on 11-21-2024 36 We received labs res ults from PCP- I gave to MA to enter. I will send to scanning when completed. Normal [facility] Absolute lymphocyte countOrd ered By: Jung Palmer on 11-21-2024 Lymphocytes Auto (Unsp spec) [#/Vol] 1.26 10*3/uL 0.83-4.51 [facility] Absolute neutrophil countOrd ered By: Jung Palmer on 11-21-2024 Neutrophils (Bld) [#/Vol] 5.3 10*3/uL 2.0-7.7 [facility] Albumin to globulin ratioOrd ered By: Jung Palmer on 11-21-2024 Albumin/Globulin [Mass ratio] 1.2 {ratio} 0.9-2.4 [facility] Automated lymphocyte count a s percentage of total leukocytesOrdered By: Jung Palmer on 11-21-2024 Lymphocytes/100 WBC Auto (Unsp spec) 16.6 % Low 19-41 [facility] Basophil percentageOrdered B y: Jung Palmer on 11-21-2024 Basophils/100 WBC (Bld) 0.7 % 0-1 [facility] Bilirubin Test strip Ql (U)O rdered By: Jung Palmer on 11-21-2024 Bilirubin Ql (U) Negative Negative [facility] Bilirubin, totalOrdered By: Jung Palmer on 11-21-2024 Bilirubin [Mass/Vol] 0.40 mg/dL 0.20-1.00 [facility] Comment on above: For patients on eltr ombopag therapy, use of Dimension Magness TBIL is not recommended. Blood urea nitrogen (BUN)/cr eatinine ratioOrdered By: Jung Palmer on 11-21-2024 Urea nitrogen/Creatinine [Mass ratio] 28.5 mg/mg High 10-20 [facility] CBC W/Diff, Automatedon 10-25 Absolute Lymph 1.26 X10 3/uL Normal 0.83-4.51 [facility] Comment on above: Performed By: #### L 500.4050, L100.0100 ####[facility] [address] [place], [address] Absolute Neut 5.3 X10 3/uL Normal 2.0-7.7 [facility] Comment on above: Performed By: #### L 500.4050, L100.0100 ####[facility] [address] [place], [address] Basophils/100 WBC (Bld) 0.7 % Normal 0-1 [facility] Comment on above: Performed By: #### L 500.4050, L100.0100 ####[facility] [address] [place], [address] Eosinophils/100 WBC (Bld) 2.0 % Normal 0-5 [facility] Comment on above: Performed By: #### L 500.4050, L100.0100 ####[facility] [address] [place], [address] Erythrocyte distribution width (RBC) [Ratio] 14.3 % Normal 11.6-14.6 [facility] Comment on above: Performed By: #### L 500.4050, L100.0100 ####[facility] [address] [place], [address] Hematocrit (Bld) [Volume fraction] 43.0 % Normal 40-54 [facility] Comment on above: Performed By: #### L 500.4050, L100.0100 ####[facility] [address] [place], [address] Hemoglobin (Bld) [Mass/Vol] 14.1 g/dL Normal 13.0-16.5 [facility] Comment on above: Performed By: #### L 500.4050, L100.0100 ####[facility] [address] [place], [address] IG% 0.500 Normal 0.0-0.9 [facility] Comment on above: Result Comment: IG% - Immature Granulocytes (promyelocytes, myelocytes andmetamyelocytes) > 1% indicates that a LEFT SHIFT is Present. Performed By: #### L 500.4050, L100.0100 ####[facility] [address] [place], [address] Lymphocytes/100 WBC (Bld) 16.6 % Low 19-41 [facility] Comment on above: Performed By: #### L 500.4050, L100.0100 ####[facility] [address] [place], [address] MCH (RBC) [Entitic mass] 31.0 pg Normal 27.0-32.0 [facility] Comment on above: Performed By: #### L 500.4050, L100.0100 ####[facility] [address] [place], [address] MCHC (RBC) [Mass/Vol] 32.8 g/dL Normal 32-36 [facility] Comment on above: Performed By: #### L 500.4050, L100.0100 ####[facility] [address] [place], [address] MCV (RBC) [Entitic vol] 94.5 fL High 80-94 [facility] Comment on above: Performed By: #### L 500.4050, L100.0100 ####[facility] [address] [place], [address] Monocytes/100 WBC (Bld) 9.9 % Normal 0-10 [facility] Comment on above: Performed By: #### L 500.4050, L100.0100 ####[facility] [address] [place], [address] Neutrophils/100 WBC (Bld) 70.3 % High 47-70 [facility] Comment on above: Performed By: #### L 500.4050, L100.0100 ####[facility] [address] [place], [address] Nucleated RBC (Bld) [#/Vol] 0 10*3/uL Normal 0-5 [facility] Comment on above: Performed By: #### L 500.4050, L100.0100 ####[facility] [address] [place], [address] Platelet mean volume (Bld) [Entitic vol] 10.6 fL Normal 6.2-12.0 [facility] Comment on above: Performed By: #### L 500.4050, L100.0100 ####[facility] [address] [place], [address] Platelets (Bld) [#/Vol] 170 10*3/uL Normal 150-450 [facility] Comment on above: Performed By: #### L 500.4050, L100.0100 ####[facility] [address] [place], [address] RBC (Bld) [#/Vol] 4.55 10*6/uL Low 4.6-6.[address] [facility] Comment on above: Performed By: #### L 500.4050, L100.0100 ####[facility] [address] [place], [address] RDW SD 49.6 fl High 35.1-43.9 [facility] Comment on above: Performed By: #### L 500.4050, L100.0100 ####[facility] [address] [place], [address] WBC (Bld) [#/Vol] 7.6 10*3/uL Normal 4.4-11.0 [facility] Comment on above: Performed By: #### L 500.4050, L100.0100 ####[facility] [address] [place], [address] Carbon dioxide measurementOr dered By: Jung Palmer on 11-21-2024 CO2 [Moles/Vol] 27.0 mmol/L 21.0-32.0 [facility] Chloride measurementOrdered By: Jung Palmer on 11-21-2024 Chloride [Moles/Vol] 106 mmol/L 98-107 [facility] Comprehensive Metabolic Prof ilon 11-21-2024 Albumin [Mass/Vol] 3.6 g/dL Normal 3.2-5.0 [facility] Comment on above: Performed By: #### L 500.4050, L100.0100 ####[facility] [address] [place], [address] Albumin/Globulin [Mass ratio] 1.2 {ratio} Normal 0.9-2.4 [facility] Comment on above: Performed By: #### L 500.4050, L100.0100 ####[facility] [address] [place], [address] ALK P 78 U/L Normal 45-117 [facility] Comment on above: Performed By: #### L 500.4050, L100.0100 ####[facility] [address] [place], [address] ALT [Catalytic activity/Vol] 29 U/L Normal 16-61 [facility] Comment on above: Performed By: #### L 500.4050, L100.0100 ####[facility] [address] [place], [address] AST [Catalytic activity/Vol] 16 U/L Normal 15-37 [facility] Comment on above: Performed By: #### L 500.4050, L100.0100 ####[facility] [address] [place], [address] Bilirubin [Mass/Vol] 0.40 mg/dL Normal 0.20-1.00 [facility] Comment on above: Result Comment: For patients on eltrombopag therapy, use of Dimension Magness TBIL is not recommended. Performed By: #### L 500.4050, L100.0100 ####[facility] [address] [place], [address] BUN/CRE 28.5 RATIO High 10-20 [facility] Comment on above: Performed By: #### L 500.4050, L100.0100 ####[facility] [address] [place], [address] CA,Total 9.2 mg/dL Normal 8.5-10.1 [facility] Comment on above: Performed By: #### L 500.4050, L100.0100 ####[facility] [address] [place], [address] Chloride [Moles/Vol] 106 mmol/L Normal 98-107 [facility] Comment on above: Performed By: #### L 500.4050, L100.0100 ####[facility] [address] [place], [address] CO2 [Moles/Vol] 27.0 mmol/L Normal 21.0-32.0 [facility] Comment on above: Performed By: #### L 500.4050, L100.0100 ####[facility] [address] [place], [address] Creatinine [Mass/Vol] 0.63 mg/dL Low 0.70-1.30 [facility] Comment on above: Result Comment: The validity of the calculated GFR GFRAA in patients over70 years has not been determined. Clinical correlation isessential. Performed By: #### L 500.4050, L100.0100 ####[facility] [address] [place], [address] ECRCL 116.02 ml/min Normal [facility] Comment on above: Performed By: #### L 500.4050, L100.0100 ####[facility] [address] [place], [address] EST GFR - AA 164 mL/min Normal >60 [facility] Comment on above: Result Comment: Afri can [place]ian GFR Calc Performed By: #### L 500.4050, L100.0100 ####[facility] [address] [place], [address] GAP 6 Normal 5-15 [facility] Comment on above: Performed By: #### L 500.4050, L100.0100 ####[facility] [address] [place], [address] GFR/1.73 sq M.predicted among non-blacks MDRD (S/P/Bld) [Vol rate/Area] 135 mL/min/{1.73_m2} Normal >60 [facility] Comment on above: Result Comment: Non- GFR Calc Performed By: #### L 500.4050, L100.0100 ####[facility] [address] [place], [address] Globulin (S) [Mass/Vol] 3.1 g/dL Normal 2.2-4.2 [facility] Comment on above: Performed By: #### L 500.4050, L100.0100 ####[facility] [address] [place], [address] Glucose [Mass/Vol] 90 mg/dL Normal 74-106 [facility] Comment on above: Performed By: #### L 500.4050, L100.0100 ####[facility] [address] [place], [address] Potassium [Moles/Vol] 3.6 mmol/L Normal 3.5-5.1 [facility] Comment on above: Performed By: #### L 500.4050, L100.0100 ####[facility] [address] [place], [address] Sodium [Moles/Vol] 140 mmol/L Normal 136-145 [facility] Comment on above: Performed By: #### L 500.4050, L100.0100 ####[facility] [address] [place], [address] T PROT 6.7 g/dL Normal 6.4-8.2 [facility] Comment on above: Performed By: #### L 500.4050, L100.0100 ####[facility] [address] [place], [address] Urea nitrogen [Mass/Vol] 18 mg/dL Normal 7-18 [facility] Comment on above: Performed By: #### L 500.4050, L100.0100 ####[facility] [address] [place], [place], [address] Emergency Department Summary on 11-21-2024 Emergency Department Summary Normal [facility] Eosinophil percentageOrdered By: Jung Palmer on 11-21-2024 Eosinophils/100 WBC (Bld) 2.0 % 0-5 [facility] Epithelial cells.squamous LM Ql (Urine sed)Ordered By: Jung Palmer on 11-21-2024 Epithelial cells.squamous LM.HPF (Urine sed) [#/Area] 0 /[HPF] 0-5 [facility] Erythrocyte distribution wid th ratioOrdered By: Jung Palmer on 11-21-2024 Erythrocyte distribution width (RBC) [Ratio] 14.3 % 11.6-14.6 [facility] Erythrocyte distribution wid th standard deviationOrdered By: Jung Palmer on 11-21-2024 Erythrocyte distribution width (RBC) [Entitic vol] 49.6 fL High 35.1-43.9 [facility] Erythrocyte distribution width (RBC) [Ratio] 49.6 fl High 35.1-43.9 [facility] Estimated glomerular filtrat ion rate (GFR) AmericanOrdered By: Jung Palmer on 11-21-2024 Estimated GFR (MDRD) Amer 164 mL/min >60 [facility] Comment on above: GFR Calc Estimation of creatinine javy aranceOrdered By: Jung Palmer on 11-21-2024 Estimated Creatinine Clearance Calc 116.02 ml/min [facility] Glomerular filtration rate ( GFR) estimationOrdered By: Jung Palmer on 11-21-2024 Estimated GFR (MDRD) Non-Af Amer 135 mL/min >60 [facility] Comment on above: Non- GFR Calc GFR/1.73 sq M.predicted among non-blacks MDRD (S/P/Bld) [Vol rate/Area] 135 mL/min/{1.73_m2} >60 [facility] Comment on above: Non- GFR Calc Glucose Ql (U)Ordered By: Pop Palmer on 11-21-2024 Glucose (U) [Mass/Vol] 1000 mg/dL High Normal [facility] Glucose measurementOrdered B y: Jung Palmer on 11-21-2024 Glucose [Mass/Vol] 90 mg/dL 74-106 [facility] Hematocrit Auto (Bld) [Volum e fraction]Ordered By: Jung Palmer on 11-21-2024 Hematocrit (Bld) [Volume fraction] 43.0 % 40-54 [facility] Hemoglobin measurementOrdere d By: Jung Palmer on 11-21-2024 Hemoglobin (Bld) [Mass/Vol] 14.1 g/dL 13.0-16.5 [facility] Immature granulocytes/100 WB C Auto (Bld)Ordered By: Jung Palmer on 11-21-2024 Immature granulocytes/100 WBC (Bld) 0.500 % 0.0-0.9 [facility] Comment on above: IG% - Immature Granu locytes (promyelocytes, myelocytes and metamyelocytes) > 1% indicates that a LEFT SHIFT is Present. Ketones Test strip Ql (U)Ord ered By: Jung Palmer on 11-21-2024 Ketones Ql (U) Negative Negative [facility] Laboratory - Chemistry and C hemistry - challengeOrdered By: Jung Palmer on 11-21-2024 AST [Catalytic activity/Vol] 16 U/L 15-37 [facility] Lymphocytes Auto (Unsp spec) [#/Vol]Ordered By: Jung Palmer on 11-21-2024 Lymphocytes (Bld) [#/Vol] 1.26 10*3/uL 0.83-4.51 [facility] Lymphocytes/100 WBC Auto (Un sp spec)Ordered By: Jung Palmer on 11-21-2024 Lymphocytes/100 WBC (Bld) 16.6 % Low 19-41 [facility] MCV (mean corpuscular volume ) determinationOrdered By: Jung Palmer on 11-21-2024 MCV (RBC) [Entitic vol] 94.5 fL High 80-94 [facility] Mean corpuscular hemoglobin (MCH) determinationOrdered By: Jung Palmer on 11-21-2024 MCH (RBC) [Entitic mass] 31.0 pg 27.0-32.0 [facility] Mean corpuscular hemoglobin concentration (MCHC) determinationOrdered By: Jung Palmer on 11-21-2024 MCHC (RBC) [Mass/Vol] 32.8 g/dL 32-36 [facility] Mean platelet volume determi nationOrdered By: Jung Palmer on 11-21-2024 Platelet mean volume (Bld) [Entitic vol] 10.6 fL 6.2-12.0 [facility] Microscopic analysis of urin e for red blood cells (RBC)Ordered By: Jung Palmer on 11-21-2024 Microscopic analysis of urine for red blood cells (RBC) 0-5 SEEN /hpf 0-5 [facility] Urine RBC 0-5 SEEN /hpf 0-5 [facility] Monocyte percentageOrdered B y: Jung Palmer on 11-21-2024 Monocytes/100 WBC (Bld) 9.9 % 0-10 [facility] Mucus LM Ql (Urine sed)Order ed By: Jung Palmer on 11-21-2024 Mucus Ql (Urine sed) 0 SEEN /hpf [facility] Neutrophil percentageOrdered By: Jung Palmer on 11-21-2024 Neutrophils/100 WBC (Bld) 70.3 % High 47-70 [facility] Nitrite Test strip Ql (U)Ord ered By: Jung Palmer on 11-21-2024 Nitrite Ql (U) Negative Negative [facility] Nucleated red blood cell per centageOrdered By: Jung Palmer on 11-21-2024 Nucleated RBC/100 WBC (Bld) [Ratio] 0 % 0-5 [facility] Platelet countOrdered By: Pop Palmer on 11-21-2024 Platelets (Bld) [#/Vol] 170 10*3/uL 150-450 [facility] Potassium measurementOrdered By: Jung Palmer on 11-21-2024 Potassium [Moles/Vol] 3.6 mmol/L 3.5-5.1 [facility] Protein Test strip Ql (U)Ord ered By: Jung Palmer on 11-21-2024 Protein Ql (U) 15 mg/dl High Negative [facility] RBC Auto (Bld) [#/Vol]Ordere d By: Jung Palmer on 11-21-2024 RBC (Bld) [#/Vol] 4.55 10*6/uL Low 4.6-6.[address] [facility] Serum anion gap measurementO rdered By: Jung Palmer on 11-21-2024 Anion gap [Moles/Vol] 6 mmol/L 5-15 [facility] Serum globulin measurementOr dered By: Jung Palmer on 11-21-2024 Globulin (S) [Mass/Vol] 3.1 g/dL 2.2-4.2 [facility] Serum or plasma alanine ling otransferase (ALT) measurementOrdered By: Jung Palmer on 11-21-2024 ALT [Catalytic activity/Vol] 29 U/L 16-61 [facility] Serum or plasma albumin amaya urement (mass/volume)Ordered By: Jung Palmer on 11-21-2024 Albumin [Mass/Vol] 3.6 g/dL 3.2-5.0 [facility] Serum or plasma alkaline nnamdi sphatase measurementOrdered By: Jung Palmer on 11-21-2024 ALP [Catalytic activity/Vol] 78 U/L 45-117 [facility] Serum or plasma calcium amaya urement (mass/volume)Ordered By: Jung Palmer on 11-21-2024 Calcium [Mass/Vol] 9.2 mg/dL 8.5-10.1 [facility] Serum or plasma creatinine m easurement (mass/volume)Ordered By: Jung Palmer on 11-21-2024 Creatinine [Mass/Vol] 0.63 mg/dL Low 0.70-1.30 [facility] Comment on above: The validity of the calculated GFR & GFRAA in patients over 70 years has not been determined. Clinical correlation is essential. Serum or plasma urea nitroge n measurement (mass/volume)Ordered By: Jung Palmer on 11-21-2024 Urea nitrogen [Mass/Vol] 18 mg/dL 7-18 [facility] Sodium levelOrdered By: Jung Palmer on 11-21-2024 Sodium [Moles/Vol] 140 mmol/L 136-145 [facility] Spine Lumbar without Contras ton 11-21-2024 Spine Lumbar without Contrast Normal [facility] Squamous epithelial cells de tection in urine sediment by light microscopyOrdered By: Jung Palmer on 11-21-2024 Epithelial cells.squamous LM Ql (Urine sed) 0 SEEN /hpf 0-5 [facility] Total proteinOrdered By: Dionisio Palmer on 11-21-2024 Protein [Mass/Vol] 6.7 g/dL 6.4-8.2 [facility] Urinalysis, Completeon 11-21 RBC 0-5 SEEN Normal 0-5 [facility] Comment on above: Order Comment: CLEAN CATCH Performed By: #### L 400.0001 ####[facility] [address] [place], [address] BACTERIA 0 SEEN Normal None Seen [facility] Comment on above: Order Comment: CLEAN CATCH Performed By: #### L 400.0001 ####[facility] [address] [place], [address] EPI,SQUAMOUS 0 SEEN Normal 0-5 [facility] Comment on above: Order Comment: CLEAN CATCH Performed By: #### L 400.0001 ####[facility] [address] [place], [address] Mucus Ql (Urine sed) 0 SEEN Normal [facility] Comment on above: Order Comment: CLEAN CATCH Performed By: #### L 400.0001 ####[facility] [address] [place], [address] WBC 0 SEEN Normal 0-5 [facility] Comment on above: Order Comment: CLEAN CATCH Performed By: #### L 400.0001 ####[facility] [address] [place], [address] Urine blood detectionOrdered By: Jung Palmer on 11-21-2024 Urine Occult Blood 10 /ul High Negative [facility] Urine clarityOrdered By: Dionisio Palmer on 11-21-2024 Clarity (U) Clear Clear [facility] Urine color determinationOrd ered By: Jung Palmer on 11-21-2024 Color (U) Yellow Yellow [facility] Urine glucose detectionOrder ed By: Jung Palmer on 11-21-2024 Glucose Ql (U) 1000 mg/dl High Normal [facility] Urine leukocyte esterase det ection by dipstickOrdered By: Jung Palmer on 11-21-2024 Leukocyte esterase Test strip Ql (U) Negative Negative [facility] Urine pHOrdered By: Jung kumar on 11-21-2024 pH (U) 6.0 [pH] 5.0 - 8.0 [facility] Urine sediment bacteria coun t by microscopy (number/high power field)Ordered By: Jung Palmer on 11-21-2024 Bacteria LM.HPF (Urine sed) [#/Area] 0 /[HPF] None Seen [facility] Urine specific gravity measu rementOrdered By: Jung Palmer on 11-21-2024 Specific gravity (U) [Rel density] 1.020 1.002-1.03 0 [facility] Urine urobilinogen measureme ntOrdered By: Jung Palmer on 11-21-2024 Urobilinogen Ql (U) Normal mg/dl Normal [facility] Urobilinogen Ql (U)Ordered B y: Jung Palmer on 11-21-2024 Urine Urobilinogen Normal mg/dl Normal [facility] White blood cell (WBC) count Ordered By: Jung Palmer on 11-21-2024 WBC (Bld) [#/Vol] 7.6 10*3/uL 4.4-11.0 [facility] White blood cell countOrdere d By: Jung Palmer on 11-21-2024 Urine WBC 0 SEEN /hpf 0-5 [facility] White blood cell count 0 SEEN /hpf 0-5 [facility] 36on 11-20-2024 36 I s/w Pt and he stat ed he has had labs done recently. I s/w Dr. Soto office they will send me what they have but pt is scheduled for additional labs on 11/23/2024 [facility] 36on 11-16-2024 36 Once new labs are or dered I will call pt and have him obtain them. [facility] 36on 11-14-2024 36 MRI form signed and dated by Dr. Falguni Zarate on 11-12-2024 and was faxed to [facility] MRI Department on 11-14-2024. [place] [address]on 11-09-2024 36 Received a MRI scan form from [facility] Gave to device clinic to complete and give to Dr. Zarate to review and sign [facility] L3300.8200on 11-06-2024 VITAMIN B6 6.4 ug/L Normal 3.4-65.2 [facility] Comment on above: Order Comment: Test( s) [id number]-Rdrlwvz B6was developed and its performance characteristicsdetermined by [employer]. It has not been cleared or approvedby the Food and Drug Administration. Result Comment: Defi ciency: <3.4 Marginal: 3.4 - 5.1 Adequate: >5.1 Performed By: #### L 3300.8000, L3300.8200 ####[facility] [address] [place], [place], [id number] Vitamin B1, Thiamineon 11-06 VIT B1 THIAMINE 157.6 nmol/L Normal 66.5-200.0 [facility] Comment on above: Order Comment: Test( s) [id number]-Mctrxjl B6was developed and its performance characteristicsdetermined by [facility]. It has not been cleared or approvedby the Food and Drug Administration. Result Comment: Perf ormed at: - [facility] [address] [id number] Director: Margie David MD, Phone: [phone] Performed By: #### L 3300.8000, L3300.8200 ####[facility] [address] [place], [place], [address] 36on 11-02-2024 36 MERVAT 5.23.25 with MAP F/U 5.29.25 with MAP Labs ordered per SM / needs TSH & CMP EKG 5.23.24 - will need EKG @ [facility] with MAP 5.29.25 Normal [facility] 36 Pt's called in to state Pt needs a refill of amiodarone (Pacerone) 200 MG tablet 1 tab q24H They would like this sent to [facility] [place] MERVAT 03/15/2024 NOV 03/21/2025 Normal [facility] ANTINUCLEAR ANTIBODIES DIREC Ton 11-01-2024 SAMMY,DIRECT Negative Normal Negative [facility] Comment on above: Order Comment: Order Date: 10/30/24Order Info: [id number] - SAMMY Result Comment: Perf ormed at: CB - [facility] [address] [id number] Director: Gerson Linton PhD, Phone: [phone] Performed By: #### L 100.9555, L3100.0277, L503.0579, L500.6657 ####[facility] [address] [place], [place], [address] SAMMY serumOrdered By: Reagan reyes on 10-30-2024 Anti-Nuclear Antibody Screen Negative Negative [facility] Comment on above: Performed at: MIKE - [facility] [address] [id number] Director: Gerson Linton PhD, Phone: [phone] Albumin to globulin ratioOrd ered By: Reagan Soto on 10-30-2024 Albumin/Globulin [Mass ratio] 1.1 {ratio} 0.9-2.4 [facility] Bilirubin, totalOrdered By: Reagan Soto on 10-30-2024 Bilirubin [Mass/Vol] 0.40 mg/dL 0.20-1.00 [facility] Comment on above: For patients on eltr ombopag therapy, use of Dimension Magness TBIL is not recommended. Blood urea nitrogen (BUN)/cr eatinine ratioOrdered By: Reagan Soto on 10-30-2024 Urea nitrogen/Creatinine [Mass ratio] 25.8 mg/mg High 10-20 [facility] CBC-Complete Blood Cnt No Di ffon 10-30-2024 Erythrocyte distribution width (RBC) [Ratio] 14.6 % Normal 11.6-14.6 [facility] Comment on above: Order Comment: Order Date: 10/30/24Order Info: [id number] - CBC Performed By: #### L 100.0500, L3100.5475, L503.0105, L500.4050 ####[facility] [address] [place], [address] Hematocrit (Bld) [Volume fraction] 44.7 % Normal 40-54 [facility] Comment on above: Order Comment: Order Date: 10/30/24Order Info: [id number] - CBC Performed By: #### L 100.0500, L3100.5475, L503.0105, L500.4050 ####[facility] [address] [place], [address] Hemoglobin (Bld) [Mass/Vol] 14.6 g/dL Normal 13.0-16.5 [facility] Comment on above: Order Comment: Order Date: 10/30/24Order Info: [id number] - CBC Performed By: #### L 100.0500, L3100.5475, L503.0105, L500.4050 ####[facility] [address] [place], [address] MCH (RBC) [Entitic mass] 31.2 pg Normal 27.0-32.0 [facility] Comment on above: Order Comment: Order Date: 10/30/24Order Info: [id number] - CBC Performed By: #### L 100.0500, L3100.5475, L503.0105, L500.4050 ####[facility] [address] [place], [address] MCHC (RBC) [Mass/Vol] 32.7 g/dL Normal 32-36 [facility] Comment on above: Order Comment: Order Date: 10/30/24Order Info: [id number] - CBC Performed By: #### L 100.0500, L3100.5475, L503.0105, L500.4050 ####[facility] [address] [place], [address] MCV (RBC) [Entitic vol] 95.5 fL High 80-94 [facility] Comment on above: Order Comment: Order Date: 10/30/24Order Info: [id number] - CBC Performed By: #### L 100.0500, L3100.5475, L503.0105, L500.4050 ####[facility] [address] [place], [address] Platelet mean volume (Bld) [Entitic vol] 10.7 fL Normal 6.2-12.0 [facility] Comment on above: Order Comment: Order Date: 10/30/24Order Info: [id number] - CBC Performed By: #### L 100.0500, L3100.5475, L503.0105, L500.4050 ####[facility] [address] [place], [address] Platelets (Bld) [#/Vol] 225 10*3/uL Normal 150-450 [facility] Comment on above: Order Comment: Order Date: 10/30/24Order Info: [id number] - CBC Performed By: #### L 100.0500, L3100.5475, L503.0105, L500.4050 ####[facility] [address] [place], [address] RBC (Bld) [#/Vol] 4.68 10*6/uL Normal 4.6-6.[address] [facility] Comment on above: Order Comment: Order Date: 10/30/24Order Info: [id number] - CBC Performed By: #### L 100.0500, L3100.5475, L503.0105, L500.4050 ####[facility] [address] [place], [address] RDW SD 50.8 fl High 35.1-43.9 [facility] Comment on above: Order Comment: Order Date: 10/30/24Order Info: [id number] - CBC Performed By: #### L 100.0500, L3100.5475, L503.0105, L500.4050 ####[facility] [address] [place], [address] WBC (Bld) [#/Vol] 8.9 10*3/uL Normal 4.4-11.0 [facility] Comment on above: Order Comment: Order Date: 10/30/24Order Info: [id number] - CBC Performed By: #### L 100.0500, L3100.5475, L503.0105, L500.4050 ####[facility] [address] [place], [address] Carbon dioxide measurementOr dered By: Reagan Soto on 10-30-2024 CO2 [Moles/Vol] 29.0 mmol/L 21.0-32.0 [facility] Chloride measurementOrdered By: Reagan Soto on 10-30-2024 Chloride [Moles/Vol] 107 mmol/L 98-107 [facility] Comprehensive Metabolic Prof ilon 10-30-2024 Albumin [Mass/Vol] 3.6 g/dL Normal 3.2-5.0 [facility] Comment on above: Order Comment: Order Date: 10/30/24Order Info: [id number] - CMP Performed By: #### L 100.0500, L3100.5475, L503.0105, L500.4050 ####[facility] [address] [place], [address] Albumin/Globulin [Mass ratio] 1.1 {ratio} Normal 0.9-2.4 [facility] Comment on above: Order Comment: Order Date: 10/30/24Order Info: 0786-1 - CMP Performed By: #### L 100.0500, L3100.5475, L503.0105, L500.4050 ####[facility] [address] [place], [address] ALK P 82 U/L Normal 45-117 [facility] Comment on above: Order Comment: Order Date: 10/30/24Order Info: 0786-1 - CMP Performed By: #### L 100.0500, L3100.5475, L503.0105, L500.4050 ####[facility] [address] [place], [address] ALT [Catalytic activity/Vol] 32 U/L Normal 16-61 [facility] Comment on above: Order Comment: Order Date: 10/30/24Order Info: 0786-1 - CMP Performed By: #### L 100.0500, L3100.5475, L503.0105, L500.4050 ####[facility] [address] [place], [address] AST [Catalytic activity/Vol] 16 U/L Normal 15-37 [facility] Comment on above: Order Comment: Order Date: 10/30/24Order Info: 0786-1 - CMP Performed By: #### L 100.0500, L3100.5475, L503.0105, L500.4050 ####[facility] [address] [place], [address] Bilirubin [Mass/Vol] 0.40 mg/dL Normal 0.20-1.00 [facility] Comment on above: Order Comment: Order Date: 10/30/24Order Info: 0786-1 - CMP Result Comment: For patients on eltrombopag therapy, use of Dimension Magness TBIL is not recommended. Performed By: #### L 100.0500, L3100.5475, L503.0105, L500.4050 ####[facility] [address] [place], [address] BUN/CRE 25.8 RATIO High 10-20 [facility] Comment on above: Order Comment: Order Date: 10/30/24Order Info: 0786-1 - CMP Performed By: #### L 100.0500, L3100.5475, L503.0105, L500.4050 ####[facility] [address] [place], [address] CA,Total 9.3 mg/dL Normal 8.5-10.1 [facility] Comment on above: Order Comment: Order Date: 10/30/24Order Info: 0786-1 - CMP Performed By: #### L 100.0500, L3100.5475, L503.0105, L500.4050 ####[facility] [address] [place], [address] Chloride [Moles/Vol] 107 mmol/L Normal 98-107 [facility] Comment on above: Order Comment: Order Date: 10/30/24Order Info: 0786-1 - CMP Performed By: #### L 100.0500, L3100.5475, L503.0105, L500.4050 ####[facility] [address] [place], [address] CO2 [Moles/Vol] 29.0 mmol/L Normal 21.0-32.0 [facility] Comment on above: Order Comment: Order Date: 10/30/24Order Info: 0786-1 - CMP Performed By: #### L 100.0500, L3100.5475, L503.0105, L500.4050 ####[facility] [address] [place], [address] Creatinine [Mass/Vol] 0.74 mg/dL Normal 0.70-1.30 [facility] Comment on above: Order Comment: Order Date: 10/30/24Order Info: 0786-1 - CMP Result Comment: The validity of the calculated GFR GFRAA in patients over70 years has not been determined. Clinical correlation isessential. Performed By: #### L 100.0500, L3100.5475, L503.0105, L500.4050 ####[facility] [address] [place], [address] EST GFR - AA 137 mL/min Normal >60 [facility] Comment on above: Order Comment: Order Date: 10/30/24Order Info: 0786-1 - CMP Result Comment: Afri can Tunisian GFR Calc Performed By: #### L 100.0500, L3100.5475, L503.0105, L500.4050 ####[facility] [address] [place], [address] GAP 3 Low 5-15 [facility] Comment on above: Order Comment: Order Date: 10/30/24Order Info: 0786-1 - CMP Performed By: #### L 100.0500, L3100.5475, L503.0105, L500.4050 ####[facility] [address] [place], [address] GFR/1.73 sq M.predicted among non-blacks MDRD (S/P/Bld) [Vol rate/Area] 113 mL/min/{1.73_m2} Normal >60 [facility] Comment on above: Order Comment: Order Date: 10/30/24Order Info: 0786-1 - CMP Result Comment: Non- GFR Calc Performed By: #### L 100.0500, L3100.5475, L503.0105, L500.4050 ####[facility] [address] [place], [address] Globulin (S) [Mass/Vol] 3.4 g/dL Normal 2.2-4.2 [facility] Comment on above: Order Comment: Order Date: 10/30/24Order Info: 0786-1 - CMP Performed By: #### L 100.0500, L3100.5475, L503.0105, L500.4050 ####[facility] [address] [place], [address] Glucose [Mass/Vol] 123 mg/dL High 74-106 [facility] Comment on above: Order Comment: Order Date: 10/30/24Order Info: 0786-1 - CMP Result Comment: Fast ing Glucose result from 100 to 125 mg/dLsuggests IMPAIRED HOMEOSTASIS per A.D.A. criteria. Performed By: #### L 100.0500, L3100.5475, L503.0105, L500.4050 ####[facility] [address] [place], [address] Potassium [Moles/Vol] 4.0 mmol/L Normal 3.5-5.1 [facility] Comment on above: Order Comment: Order Date: 10/30/24Order Info: 0786-1 - CMP Performed By: #### L 100.0500, L3100.5475, L503.0105, L500.4050 ####[facility] [address] [place], [address] Sodium [Moles/Vol] 139 mmol/L Normal 136-145 [facility] Comment on above: Order Comment: Order Date: 10/30/24Order Info: 0786-1 - CMP Performed By: #### L 100.0500, L3100.5475, L503.0105, L500.4050 ####[facility] [address] [place], [address] T PROT 7.0 g/dL Normal 6.4-8.2 [facility] Comment on above: Order Comment: Order Date: 10/30/24Order Info: 0786-1 - CMP Performed By: #### L 100.0500, L3100.5475, L503.0105, L500.4050 ####[facility] [address] [place], [place], [address] Urea nitrogen [Mass/Vol] 19 mg/dL High 7-18 [facility] Comment on above: Order Comment: Order Date: 10/30/24Order Info: 0786-1 - CMP Performed By: #### L 100.0500, L3100.5475, L503.0105, L500.4050 ####[facility] [address] [place], [address] Erythrocyte distribution wid th ratioOrdered By: Reagan Soto on 10-30-2024 Erythrocyte distribution width (RBC) [Ratio] 14.6 % 11.6-14.6 [facility] Erythrocyte distribution wid th standard deviationOrdered By: Reagan Soto on 10-30-2024 Erythrocyte distribution width (RBC) [Entitic vol] 50.8 fL High 35.1-43.9 [facility] Erythrocyte distribution width (RBC) [Ratio] 50.8 fl High 35.1-43.9 [facility] Estimated glomerular filtrat ion rate (GFR) AmericanOrdered By: Reagan Soto on 10-30-2024 Estimated GFR (MDRD) Amer 137 mL/min >60 [facility] Comment on above: GFR Calc Glomerular filtration rate ( GFR) estimationOrdered By: Reagan Soto on 10-30-2024 Estimated GFR (MDRD) Non-Af Amer 113 mL/min >60 [facility] Comment on above: Non- GFR Calc GFR/1.73 sq M.predicted among non-blacks MDRD (S/P/Bld) [Vol rate/Area] 113 mL/min/{1.73_m2} >60 [facility] Comment on above: Non- GFR Calc Glucose measurementOrdered B y: Reagan Soto on 10-30-2024 Glucose [Mass/Vol] 123 mg/dL High 74-106 [facility] Comment on above: Fasting Glucose resu lt from 100 to 125 mg/dL suggests IMPAIRED HOMEOSTASIS per A.D.A. criteria. Hematocrit Auto (Bld) [Volum e fraction]Ordered By: Reagan Soto on 10-30-2024 Hematocrit (Bld) [Volume fraction] 44.7 % 40-54 [facility] Hemoglobin measurementOrdere d By: Reagan Soto on 10-30-2024 Hemoglobin (Bld) [Mass/Vol] 14.6 g/dL 13.0-16.5 [facility] Knee 4 or More Viewson 10-30 Knee 4 or More Views Normal [facility] Laboratory - Chemistry and C hemistry - challengeOrdered By: Reagan Soto on 10-30-2024 AST [Catalytic activity/Vol] 16 U/L 15-37 [facility] Lumbar Spine 2 or 3 Viewson 10-30-2024 Lumbar Spine 2 or 3 Views Normal [facility] MCV (mean corpuscular volume ) determinationOrdered By: Reagan Soto on 10-30-2024 MCV (RBC) [Entitic vol] 95.5 fL High 80-94 [facility] Mean corpuscular hemoglobin (MCH) determinationOrdered By: Reagan Soto on 10-30-2024 MCH (RBC) [Entitic mass] 31.2 pg 27.0-32.0 [facility] Mean corpuscular hemoglobin concentration (MCHC) determinationOrdered By: Reagan Soto on 10-30-2024 MCHC (RBC) [Mass/Vol] 32.7 g/dL 32-36 [facility] Mean platelet volume determi nationOrdered By: Reagan Soto on 10-30-2024 Platelet mean volume (Bld) [Entitic vol] 10.7 fL 6.2-12.0 [facility] Platelet countOrdered By: Jackie Soto on 10-30-2024 Platelets (Bld) [#/Vol] 225 10*3/uL 150-450 [facility] Potassium measurementOrdered By: Reagna Soto on 10-30-2024 Potassium [Moles/Vol] 4.0 mmol/L 3.5-5.1 [facility] RBC Auto (Bld) [#/Vol]Ordere d By: Reagan Soto on 10-30-2024 RBC (Bld) [#/Vol] 4.68 10*6/uL 4.6-6.[address] [facility] Serum anion gap measurementO rdered By: Reagan Soto on 01-07-2025 Anion gap [Moles/Vol] 3 mmol/L Low 5-15 [facility] Serum globulin measurementOr dered By: Reagan Soto on 10-30-2024 Globulin (S) [Mass/Vol] 3.4 g/dL 2.2-4.2 [facility] Serum or plasma alanine ling otransferase (ALT) measurementOrdered By: Reagan Soto on 10-30-2024 ALT [Catalytic activity/Vol] 32 U/L 16-61 [facility] Serum or plasma albumin amaya urement (mass/volume)Ordered By: Reagan Soto on 10-30-2024 Albumin [Mass/Vol] 3.6 g/dL 3.2-5.0 [facility] Serum or plasma alkaline nnamdi sphatase measurementOrdered By: Reagan Soto on 10-30-2024 ALP [Catalytic activity/Vol] 82 U/L 45-117 [facility] Serum or plasma calcium amaya urement (mass/volume)Ordered By: Reagan Soto on 10-30-2024 Calcium [Mass/Vol] 9.3 mg/dL 8.5-10.1 [facility] Serum or plasma creatinine m easurement (mass/volume)Ordered By: Reagan Soto on 10-30-2024 Creatinine [Mass/Vol] 0.74 mg/dL 0.70-1.30 [facility] Comment on above: The validity of the calculated GFR & GFRAA in patients over 70 years has not been determined. Clinical correlation is essential. Serum or plasma thiamine jimenez surement (mass/volume)Ordered By: Reagan Soto on 10-30-2024 Thiamine [Mass/Vol] 157.6 nmol/L 66.5-200.0 [facility] Comment on above: Performed at: [address] [id number] Director: Margie David MD, Phone: [phone] Serum or plasma urea nitroge n measurement (mass/volume)Ordered By: Reagan Soto on 10-30-2024 Urea nitrogen [Mass/Vol] 19 mg/dL High 7-18 [facility] Sodium levelOrdered By: Reagan Soto on 10-30-2024 Sodium [Moles/Vol] 139 mmol/L 136-145 [facility] Thiamine [Mass/Vol]Ordered B y: Reagan Soto on 10-30-2024 Whole Blood Vitamin B1 Level 157.6 nmol/L 66.5-200.0 [facility] Comment on above: Performed at: [address] [id number] Director: Margie David MD, Phone: [phone] Total proteinOrdered By: Jonathan Soto on 10-30-2024 Protein [Mass/Vol] 7.0 g/dL 6.4-8.2 [facility] Vitamin B12on 10-30-2024 Cobalamin (Vitamin B12) [Mass/Vol] 523 pg/mL Normal 211-911 [facility] Comment on above: Order Comment: Order Date: 10/30/24Order Info: 2132-9 - B12 Performed By: #### L 100.0500, L3100.5475, L503.0105, L500.4050 ####[facility] [address] [place], [address] Vitamin B12 measurementOrder ed By: Reagan Stoo on 10-30-2024 Cobalamin (Vitamin B12) [Mass/Vol] 523 pg/mL 211-911 [facility] Vitamin B6, plasmaOrdered By : Reagan Soto on 10-30-2024 Vitamin B6 Level 6.4 ug/L 3.4-65.2 [facility] Comment on above: Deficiency: <3.4 Mar ginal: 3.4 - 5.1 Adequate: >5.1 White blood cell (WBC) count Ordered By: Reagan Soto on 10-30-2024 WBC (Bld) [#/Vol] 8.9 10*3/uL 4.4-11.0 [facility] ECG 12 lead - CLINIC PERFORM EDon 03-15-2024 Sinus Rhythm -occasi onal ectopic ventricular beat Biventricular Pacing ABNORMAL [facility] Absolute lymphocyte countOrd ered By: Reagan Soto on 11-15-2023 Lymphocytes Auto (Unsp spec) [#/Vol] 1.64 10*3/uL 0.83-4.51 [facility] Automated lymphocyte count a s percentage of total leukocytesOrdered By: Reagan Brittany on 11-15-2023 Lymphocytes/100 WBC Auto (Unsp spec) 19.3 % 19-41 [facility] Basophil percentageOrdered B y: Reagan Brittany on 11-15-2023 Basophils/100 WBC (Bld) 0.7 % 0-1 [facility] Bilirubin [Mass/Vol] 0.40 mg/dL 0.20-1.00 [facility] Comment on above: For patients on eltr ombopag therapy, use of Dimension Magness TBIL is not recommended. Chloride [Moles/Vol] 107 mmol/L 98-107 [facility] Cholesterol [Mass/Vol] 114 mg/dL <200 [facility] Comment on above: <200 mg/dL Desirable 200-240 mg/dL Borderline >240 mg/dL High Risk Eosinophils/100 WBC (Bld) 0.9 % 0-5 [facility] Glucose [Mass/Vol] 116 mg/dL 74-106 [facility] Comment on above: Fasting Glucose resu lt from 100 to 125 mg/dL suggests IMPAIRED HOMEOSTASIS per A.D.A. criteria. Hemoglobin (Bld) [Mass/Vol] 15.4 g/dL 13.0-16.5 [facility] Monocytes/100 WBC (Bld) 9.2 % 0-10 [facility] Neutrophils (Bld) [#/Vol] 5.9 10*3/uL 2.0-7.7 [facility] Neutrophils/100 WBC (Bld) 69.7 % 47-70 [facility] Potassium [Moles/Vol] 4.0 mmol/L 3.5-5.1 [facility] Protein [Mass/Vol] 7.1 g/dL 6.4-8.2 [facility] Sodium [Moles/Vol] 139 mmol/L 136-145 [facility] Triglyceride [Mass/Vol] 136 mg/dL <199 [facility] Comment on above: The drugs N-Acetylcy steine and Metamizole may falsely depress this assay.Serum Triglycerides Reference Interval Normal <150 mg/dL Borderline high 150 - 199 mg/dL High 200 - 499 mg/dL Very High > or = 500 mg/dL WBC (Bld) [#/Vol] 8.5 10*3/uL 4.4-11.0 [facility] Determination of erythrocyte mean corpuscular volume (MCV)Ordered By: Reagan Soto on 11-15-2023 MCV (RBC) [Entitic vol] 94.5 fL 80-94 [facility] Erythrocyte distribution wid th ratioOrdered By: Reagan Soto on 11-15-2023 Erythrocyte distribution width (RBC) [Ratio] 13.3 % 11.6-14.6 [facility] Erythrocyte distribution wid th standard deviationOrdered By: Reagan Soto on 11-15-2023 Erythrocyte distribution width (RBC) [Entitic vol] 46.5 fL 35.1-43.9 [facility] Hematocrit Auto (Bld) [Volum e fraction]Ordered By: Reagan Soto on 11-15-2023 Hematocrit (Bld) [Volume fraction] 46.7 % 40-54 [facility] High density lipoprotein (HD L) measurementOrdered By: Reagan Soto on 11-15-2023 Cholesterol in HDL (Body fld) [Mass/Vol] 38 mg/dL >40 [facility] Comment on above: The drugs N-Acetylcy steine and Metamizole may falsely depress this assay. Reference Range HDL <40 mg/dL Low HDL Cholesterol HDL >or= 60 mg/dL High HDL Cholesterol Immature granulocytes/100 WB C Auto (Bld)Ordered By: Reagan Soto on 11-15-2023 Immature granulocytes/100 WBC (Bld) 0.200 % 0.0-0.9 [facility] Comment on above: IG% - Immature Granu locytes (promyelocytes, myelocytes and metamyelocytes) > 1% indicates that a LEFT SHIFT is Present. Laboratory - Chemistry and C hemistry - challengeOrdered By: Reagan Soto on 11-15-2023 Albumin/Globulin [Mass ratio] 1.2 {ratio} 0.9-2.4 [facility] ALP [Catalytic activity/Vol] 77 U/L 45-117 [facility] ALT [Catalytic activity/Vol] 36 U/L 16-61 [facility] CO2 [Moles/Vol] 25.0 mmol/L 21.0-32.0 [facility] Globulin (S) [Mass/Vol] 3.2 g/dL 2.2-4.2 [facility] Magnesium [Mass/Vol] 2.2 mg/dL 1.6-2.6 [facility] Urea nitrogen/Creatinine [Mass ratio] 21.4 mg/mg 10-20 [facility] Laboratory - Hematology and Cell countsOrdered By: Reagan Soto on 11-15-2023 MCH (RBC) [Entitic mass] 31.2 pg 27.0-32.0 [facility] MCHC (RBC) [Mass/Vol] 33.0 g/dL 32-36 [facility] Nucleated RBC/100 WBC (Bld) [Ratio] 0 % 0-5 [facility] Platelets (Bld) [#/Vol] 205 10*3/uL 150-450 [facility] Low density lipoprotein (LDL ) cholesterol measurementOrdered By: Reagan Soto on 11-15-2023 Cholesterol in LDL (Body fld) [Moles/Vol] 49 mg/dL 0-130 [facility] No Panel InformationOrdered By: Reagan Soto on 11-15-2023 Estimated GFR (MDRD) Amer 111 mL/min >60 [facility] Comment on above: GFR Calc Estimated GFR (MDRD) Non-Af Amer 92 mL/min >60 [facility] Comment on above: Non- GFR Calc Platelet mean volume Sameul-Ec ker (Bld) [Entitic vol]Ordered By: Reagan Soto on 11-15-2023 Platelet mean volume (Bld) [Entitic vol] 10.8 fL 6.2-12.0 [facility] RBC Auto (Bld) [#/Vol]Ordere d By: Reagan Soto on 11-15-2023 RBC (Bld) [#/Vol] 4.94 10*6/uL 4.6-6.2 [facility] [place] or plasma calcium amaya urement (mass/volume)Ordered By: Reagan Soto on 11-15-2023 Calcium [Mass/Vol] 9.4 mg/dL 8.5-10.1 [facility] [place] or plasma creatinine m easurement (mass/volume)Ordered By: Reagan Soto on 11-15-2023 Creatinine [Mass/Vol] 0.89 mg/dL 0.70-1.30 [facility] Comment on above: The validity of the calculated GFR & GFRAA in patients over 70 years has not been determined. Clinical correlation is essential. Serum or plasma thyroid stim ulating hormone (TSH) measurement (units/volume)Ordered By: Reagan Soto on 11-15-2023 TSH Qn 2.02 uIU/mL 0.358-3.74 [facility] Serum or plasma urea nitroge n measurement (mass/volume)Ordered By: Reagan Soto on 11-15-2023 Urea nitrogen [Mass/Vol] 19 mg/dL 7-18 [facility] Thin prep Papanicolaou smear with manual screeningOrdered By: Reagan Soto on 11-15-2023 Thin prep Papanicolaou smear with manual screening 3.9 g/dL 3.2-5.0 [facility] Thin prep Papanicolaou smear with manual screening 21 U/L 15-37 [facility] Thin prep Papanicolaou smear with manual screening 7 5-15 [facility] Thin prep Papanicolaou smear with manual screening 71.5 mg/L NO RANGE EST. [facility] Urine albumin/creatinine rat io for detection of microalbuminuriaOrdered By: Reagan Soto on 11-15-2023 Albumin/Creatinine DL <= 1.0 mg/L (24H U) [Ratio] 90.2 mg/g CRE <30 [facility] Urine creatinine measurement (mass/volume)Ordered By: Reagan Soto on 11-15-2023 Creatinine (U) [Mass/Vol] 79.30 mg/dL NO RANGE EST. [facility] Very low density lipoprotein (VLDL) cholesterol measurementOrdered By: Reagan Soto on 11-15-2023 Cholesterol in VLDL Calc [Moles/Vol] 27 mg/dL 5-40 [facility] Whole blood hemoglobin A1c/t otal hemoglobin ratio (mass fraction)Ordered By: Reagan Soto on 11-15-2023 HbA1c (Bld) [Mass fraction] 5.8 % 3.8-5.6 [facility] Comment on above: Normal < 5.7 % Predi abetic 5.7 - 6.4 % Diabetic >or= 6.5 % Please note range changes. Laboratory - Drug toxicology Ordered By: Karen Medina on 08-10-2023 Amphetamines Ql (U) Negative <1000 ng/mL [facility] Benzodiazepines Ql (U) Negative < 200 ng/mL [facility] Cannabinoids Screen Ql (U) Positive < 50 ng/mL [facility] Cocaine Ql (U) Negative < 300 ng/mL [facility] Opiates Ql (U) Negative < 300 ng/mL [facility] No Panel InformationOrdered By: Karen Medina on 08-10-2023 MDMA (Ecstasy) Screen Negative < 500 ng/mL [facility] Miscellaneous Test See comment [facility] Comment on above: TEST RESULTS LIMITS Tramadol Positive Cutoff = 200 Tramadol Conf, [place], [place] 2296 ng/mL Cutoff = 100 TESTING PERFORMED AT [facility]. ORIGINAL REPORT ON FILE IN LAB CONTAINS ADDITIONAL TEST SITE INFORMATION. Urine Barbiturates Screen Negative < 200 ng/mL [facility] Urine Drug Screen Comment [facility] Comment on above: CONFIRMATORY TESTING FOR ALL POSITIVE URINE DRUG SCREENRESULTS WILL ONLY BE SENT OUT UPON PHYSICIAN ORDER. VISTA Urine Drug Screen methods provide only preliminaryanalytical test results. A more specific alternate chemicalmethod must be used in order to obtain a confirmedanalytical result. Gas chromatography/mass spectrometery(GC/MS) is the preferred confirmatory method. Clinicalconsideration and professional judgement should be appliedto any drug of abuse test result, particularly whenpreliminary positive results are used. URINE TCA TESTING MUST BE ORDERED SEPARATELY. USE TESTMNEMONIC: [facility] Urine Methadone Screen Negative < 300 ng/mL [facility] Urine phencyclidine (PCP) de tectionOrdered By: Karen Medina on 08-10-2023 Phencyclidine Ql (U) Negative < 25 ng/mL [facility] Absolute lymphocyte countOrd ered By: Aravind Morataya on 08-01-2023 Lymphocytes Auto (Unsp spec) [#/Vol] 1.52 10*3/uL 0.83-4.51 [facility] Basophil percentageOrdered B y: Aravind Morataya on 08-01-2023 Basophils/100 WBC (Bld) 0.6 % 0-1 [facility] Eosinophils/100 WBC (Bld) 0.5 % 0-5 [facility] Neutrophils (Bld) [#/Vol] 5.4 10*3/uL 2.0-7.7 [facility] Neutrophils/100 WBC (Bld) 67.7 % 47-70 [facility] WBC (Bld) [#/Vol] 7.9 10*3/uL 4.4-11.0 [facility] Blood erythrocytes count (nu mber/volume)Ordered By: Aravind Morataya on 08-01-2023 RBC (Bld) [#/Vol] 4.89 10*6/uL 4.6-6.[address] [facility] Blood hemoglobin measurement (mass/volume)Ordered By: Aravind Morataya on 08-01-2023 Hemoglobin (Bld) [Mass/Vol] 15.7 g/dL 13.0-16.5 [facility] Blood lymphocytes/100 leukoc ytesOrdered By: Aravind Morataya on 08-01-2023 Lymphocytes/100 WBC (Bld) 19.2 % 19-41 [facility] Blood monocytes/100 leukocyt esOrdered By: Aravind Morataya on 08-01-2023 Monocytes/100 WBC (Bld) 11.6 % 0-10 [facility] Blood platelet mean volumeOr dered By: Aravind Morataya on 08-01-2023 Platelet mean volume (Bld) [Entitic vol] 11.2 fL 6.2-12.0 [facility] Determination of erythrocyte mean corpuscular volume (MCV)Ordered By: Aravind Morataya on 08-01-2023 MCV (RBC) [Entitic vol] 96.9 fL 80-94 [facility] Hematocrit Auto (Bld) [Volum e fraction]Ordered By: Aravind Morataya on 08-01-2023 Hematocrit (Bld) [Volume fraction] 47.4 % 40-54 [facility] Laboratory - Hematology and Cell countsOrdered By: Aravind Morataya on 08-01-2023 Erythrocyte distribution width (RBC) [Entitic vol] 46.0 fL 35.1-43.9 [facility] Erythrocyte distribution width (RBC) [Ratio] 12.9 % 11.6-14.6 [facility] Immature granulocytes/100 WBC (Bld) 0.400 % 0.0-0.9 [facility] Comment on above: IG% - Immature Granu locytes (promyelocytes, myelocytes and metamyelocytes) > 1% indicates that a LEFT SHIFT is Present. MCH (RBC) [Entitic mass] 32.1 pg 27.0-32.0 [facility] Nucleated RBC/100 WBC (Bld) [Ratio] 0 % 0-5 [facility] MCHC Auto (RBC) [Mass/Vol]Or dered By: Aravind Morataya on 08-01-2023 MCHC (RBC) [Mass/Vol] 33.1 g/dL 32-36 [facility] Platelets bldOrdered By: Barbara Morataya on 08-01-2023 Platelets (Bld) [#/Vol] 164 10*3/uL 150-450 [facility] Absolute lymphocyte countOrd ered By: Reagan Soto on 07-13-2023 Lymphocytes Auto (Unsp spec) [#/Vol] 1.12 10*3/uL 0.83-4.51 [facility] Basophil percentageOrdered B y: Reagan Soto on 07-13-2023 Basophils/100 WBC (Bld) 0.6 % 0-1 [facility] Bilirubin [Mass/Vol] 0.40 mg/dL 0.20-1.00 [facility] Comment on above: For patients on eltr ombopag therapy, use of Dimension Magness TBIL is not recommended. Chloride [Moles/Vol] 106 mmol/L 98-107 [facility] Cholesterol [Mass/Vol] 119 mg/dL <200 [facility] Comment on above: <200 mg/dL Desirable 200-240 mg/dL Borderline >240 mg/dL High Risk Eosinophils/100 WBC (Bld) 0.8 % 0-5 [facility] Glucose [Mass/Vol] 124 mg/dL 74-106 [facility] Comment on above: Fasting Glucose resu lt from 100 to 125 mg/dL suggests IMPAIRED HOMEOSTASIS per A.D.A. criteria. Neutrophils (Bld) [#/Vol] 6.7 10*3/uL 2.0-7.7 [facility] Neutrophils/100 WBC (Bld) 77.2 % 47-70 [facility] Potassium [Moles/Vol] 4.1 mmol/L 3.5-5.1 [facility] Protein [Mass/Vol] 7.2 g/dL 6.4-8.2 [facility] Sodium [Moles/Vol] 138 mmol/L 136-145 [facility] Triglyceride [Mass/Vol] 83 mg/dL <199 [facility] Comment on above: The drugs N-Acetylcy steine and Metamizole may falsely depress this assay.Serum Triglycerides Reference Interval Normal <150 mg/dL Borderline high 150 - 199 mg/dL High 200 - 499 mg/dL Very High > or = 500 mg/dL WBC (Bld) [#/Vol] 8.6 10*3/uL 4.4-11.0 [facility] Blood erythrocytes count (nu mber/volume)Ordered By: Reagan Soto on 07-13-2023 RBC (Bld) [#/Vol] 5.07 10*6/uL 4.6-6.[address] [facility] Blood hemoglobin measurement (mass/volume)Ordered By: Reagan Soto on 07-13-2023 Hemoglobin (Bld) [Mass/Vol] 16.1 g/dL 13.0-16.5 [facility] Blood lymphocytes/100 leukoc ytesOrdered By: Reagan Soto on 07-13-2023 Lymphocytes/100 WBC (Bld) 13.0 % 19-41 [facility] Blood monocytes/100 leukocyt esOrdered By: Reagan Soto on 07-13-2023 Monocytes/100 WBC (Bld) 7.9 % 0-10 [facility] Blood platelet mean volumeOr dered By: Reagan Soto on 07-13-2023 Platelet mean volume (Bld) [Entitic vol] 11.0 fL 6.2-12.0 [facility] Determination of erythrocyte mean corpuscular volume (MCV)Ordered By: Reagan Soto on 07-13-2023 MCV (RBC) [Entitic vol] 97.8 fL 80-94 [facility] Hematocrit Auto (Bld) [Volum e fraction]Ordered By: Reagan Soto on 07-13-2023 Hematocrit (Bld) [Volume fraction] 49.6 % 40-54 [facility] Laboratory - Chemistry and C hemistry - challengeOrdered By: Reagan Soto on 07-13-2023 ALP [Catalytic activity/Vol] 65 U/L 45-117 [facility] ALT [Catalytic activity/Vol] 48 U/L 16-61 [facility] CO2 [Moles/Vol] 28.0 mmol/L 21.0-32.0 [facility] Globulin (S) [Mass/Vol] 3.3 g/dL 2.2-4.2 [facility] Urea nitrogen/Creatinine [Mass ratio] 20.3 mg/mg 10-20 [facility] Laboratory - Drug toxicology Ordered By: Reagan Soto on 07-13-2023 Amphetamines Ql (U) Negative <1000 ng/mL [facility] Benzodiazepines Ql (U) Negative < 200 ng/mL [facility] Cannabinoids Screen Ql (U) Positive < 50 ng/mL [facility] Cocaine Ql (U) Negative < 300 ng/mL [facility] Opiates Ql (U) Negative < 300 ng/mL [facility] Laboratory - Hematology and Cell countsOrdered By: Reagan Soto on 07-13-2023 Erythrocyte distribution width (RBC) [Entitic vol] 48.2 fL 35.1-43.9 [facility] Erythrocyte distribution width (RBC) [Ratio] 13.4 % 11.6-14.6 [facility] Immature granulocytes/100 WBC (Bld) 0.500 % 0.0-0.9 [facility] Comment on above: IG% - Immature Granu locytes (promyelocytes, myelocytes and metamyelocytes) > 1% indicates that a LEFT SHIFT is Present. MCH (RBC) [Entitic mass] 31.8 pg 27.0-32.0 [facility] Nucleated RBC/100 WBC (Bld) [Ratio] 0 % 0-5 [facility] MCHC Auto (RBC) [Mass/Vol]Or dered By: Regaan Soto on 07-13-2023 MCHC (RBC) [Mass/Vol] 32.5 g/dL 32-36 [facility] No Panel InformationOrdered By: Reagan Soto on 07-13-2023 MDMA (Ecstasy) Screen Negative < 500 ng/mL [facility] Miscellaneous Test See comment [facility] Comment on above: TEST RESULT LIMITSTr amadol Positive Iybdip=833 Tramadol Conf, [place], [place] 2493 ng/mL Jbnsix=100 TESTING PERFORMED AT [facility]. ORIGINAL REPORT ON FILE IN LAB CONTAINS ADDITIONAL TEST SITE INFORMATION. Urine Barbiturates Screen Negative < 200 ng/mL [facility] Urine Drug Screen Comment [facility] Comment on above: CONFIRMATORY TESTING FOR ALL POSITIVE URINE DRUG SCREENRESULTS WILL ONLY BE SENT OUT UPON PHYSICIAN ORDER. [facility]IST[facility] Urine Drug Screen methods provide only preliminaryanalytical test results. A more specific alternate chemicalmethod must be used in order to obtain a confirmedanalytical result. Gas chromatography/mass spectrometery(GC/MS) is the preferred confirmatory method. Clinicalconsideration and professional judgement should be appliedto any drug of abuse test result, particularly whenpreliminary positive results are used. URINE TCA TESTING MUST BE ORDERED SEPARATELY. USE TESTMNEMONIC: [facility] Urine Methadone Screen Negative < 300 ng/mL [facility] Estimated GFR (MDRD) Amer 127 mL/min >60 [facility] Comment on above: GFR Calc Estimated GFR (MDRD) Non-Af Amer 105 mL/min >60 [facility] Comment on above: Non- GFR Calc Platelets bldOrdered By: Jonathan Soto on 07-13-2023 Platelets (Bld) [#/Vol] 209 10*3/uL 150-450 [facility] Serum or plasma albumin amaya urement (mass/volume)Ordered By: Reagan Soto on 07-13-2023 Albumin [Mass/Vol] 3.9 g/dL 3.2-5.0 [facility] Serum or plasma albumin/glob ulin mass ratioOrdered By: Reagan Soto on 07-13-2023 Albumin/Globulin [Mass ratio] 1.2 {ratio} 0.9-2.4 [facility] Serum or plasma calcium amaya urement (mass/volume)Ordered By: Reagan Soto on 07-13-2023 Calcium [Mass/Vol] 9.2 mg/dL 8.5-10.1 [facility] Serum or plasma cholesterol in HDL measurement (mass/volume)Ordered By: Reagan Soto on 07-13-2023 Cholesterol in HDL [Mass/Vol] 42 mg/dL >40 [facility] Comment on above: The drugs N-Acetylcy steine and Metamizole may falsely depress this assay. Reference Range HDL <40 mg/dL Low HDL Cholesterol HDL >or= 60 mg/dL High HDL Cholesterol Serum or plasma cholesterol in VLDL measurement (mass/volume)Ordered By: Reagan Soto on 07-13-2023 Cholesterol in VLDL [Mass/Vol] 17 mg/dL 5-40 [facility] Serum or plasma creatinine m easurement (mass/volume)Ordered By: Reagan Soto on 07-13-2023 Creatinine [Mass/Vol] 0.79 mg/dL 0.70-1.30 [facility] Comment on above: The validity of the calculated GFR & GFRAA in patients over 70 years has not been determined. Clinical correlation is essential. Serum or plasma low density lipoprotein (LDL) cholesterol measurement (mass/volume)Ordered By: Reagan Soto on 07-13-2023 Cholesterol in LDL [Mass/Vol] 60 mg/dL 0-130 [facility] Serum or plasma urea nitroge n measurement (mass/volume)Ordered By: Reagan Soto on 07-13-2023 Urea nitrogen [Mass/Vol] 16 mg/dL 7-18 [facility] Thin prep Papanicolaou smear with manual screeningOrdered By: Reagan Soto on 07-13-2023 Thin prep Papanicolaou smear with manual screening 21 U/L 15-37 [facility] Thin prep Papanicolaou smear with manual screening 4 5-15 [facility] Urine phencyclidine (PCP) de tectionOrdered By: Reagan Soto on 07-13-2023 Phencyclidine Ql (U) Negative < 25 ng/mL [facility] Whole blood hemoglobin A1c/t otal hemoglobin ratio (mass fraction)Ordered By: Reagan Soto on 07-13-2023 HbA1c (Bld) [Mass fraction] 6.1 % 3.8-5.6 [facility] Comment on above: Normal < 5.7 % Predi abetic 5.7 - 6.4 % Diabetic >or= 6.5 % Please note range changes. Absolute lymphocyte countOrd ered By: Reagan Soot on 04-19-2023 Lymphocytes Auto (Unsp spec) [#/Vol] 1.49 10*3/uL 0.83-4.51 [facility] Basophil percentageOrdered B y: Reagan Soto on 04-19-2023 Basophils/100 WBC (Bld) 0.6 % 0-1 [facility] Bilirubin [Mass/Vol] 0.40 mg/dL 0.20-1.00 [facility] Comment on above: For patients on eltr ombopag therapy, use of Dimension Magness TBIL is not recommended. Chloride [Moles/Vol] 109 mmol/L 98-107 [facility] Cholesterol [Mass/Vol] 105 mg/dL <200 [facility] Comment on above: <200 mg/dL Desirable 200-240 mg/dL Borderline >240 mg/dL High Risk Eosinophils/100 WBC (Bld) 2.1 % 0-5 [facility] Glucose [Mass/Vol] 121 mg/dL 74-106 [facility] Comment on above: Fasting Glucose resu lt from 100 to 125 mg/dL suggests IMPAIRED HOMEOSTASIS per A.D.A. criteria. Neutrophils (Bld) [#/Vol] 6.8 10*3/uL 2.0-7.7 [facility] Neutrophils/100 WBC (Bld) 72.9 % 47-70 [facility] Potassium [Moles/Vol] 4.3 mmol/L 3.5-5.1 [facility] Protein [Mass/Vol] 6.9 g/dL 6.4-8.2 [facility] Sodium [Moles/Vol] 140 mmol/L 136-145 [facility] Triglyceride [Mass/Vol] 84 mg/dL <199 [facility] Comment on above: The drugs N-Acetylcy steine and Metamizole may falsely depress this assay.Serum Triglycerides Reference Interval Normal <150 mg/dL Borderline high 150 - 199 mg/dL High 200 - 499 mg/dL Very High > or = 500 mg/dL WBC (Bld) [#/Vol] 9.3 10*3/uL 4.4-11.0 [facility] Blood erythrocytes count (nu mber/volume)Ordered By: Reagan Soto on 04-19-2023 RBC (Bld) [#/Vol] 4.60 10*6/uL 4.6-6.[address] [facility] Blood hemoglobin measurement (mass/volume)Ordered By: Reagan Soto on 04-19-2023 Hemoglobin (Bld) [Mass/Vol] 14.9 g/dL 13.0-16.5 [facility] Blood lymphocytes/100 leukoc ytesOrdered By: Reagan Soto on 04-19-2023 Lymphocytes/100 WBC (Bld) 16.1 % 19-41 [facility] Blood monocytes/100 leukocyt esOrdered By: Reagan Soto on 04-19-2023 Monocytes/100 WBC (Bld) 8.0 % 0-10 [facility] Blood platelet mean volumeOr dered By: Reagan Soto on 04-19-2023 Platelet mean volume (Bld) [Entitic vol] 11.2 fL 6.2-12.0 [facility] Determination of erythrocyte mean corpuscular volume (MCV)Ordered By: Reagan Soto on 04-19-2023 MCV (RBC) [Entitic vol] 99.8 fL 80-94 [facility] Hematocrit Auto (Bld) [Volum e fraction]Ordered By: Reagan Soto on 04-19-2023 Hematocrit (Bld) [Volume fraction] 45.9 % 40-54 [facility] Laboratory - Chemistry and C hemistry - challengeOrdered By: Reagan Soto on 04-19-2023 ALP [Catalytic activity/Vol] 65 U/L 45-117 [facility] ALT [Catalytic activity/Vol] 55 U/L 16-61 [facility] CO2 [Moles/Vol] 25.0 mmol/L 21.0-32.0 [facility] Cobalamin (Vitamin B12) [Mass/Vol] 577 pg/mL 211-911 [facility] Free T4 [Mass/Vol] 1.15 ng/dL 0.76-1.46 [facility] Globulin (S) [Mass/Vol] 3.3 g/dL 2.2-4.2 [facility] Urea nitrogen/Creatinine [Mass ratio] 24.9 mg/mg 10-20 [facility] Laboratory - Hematology and Cell countsOrdered By: Reagan Soto on 04-19-2023 Erythrocyte distribution width (RBC) [Entitic vol] 51.8 fL 35.1-43.9 [facility] Erythrocyte distribution width (RBC) [Ratio] 14.0 % 11.6-14.6 [facility] Immature granulocytes/100 WBC (Bld) 0.300 % 0.0-0.9 [facility] Comment on above: IG% - Immature Granu locytes (promyelocytes, myelocytes and metamyelocytes) > 1% indicates that a LEFT SHIFT is Present. MCH (RBC) [Entitic mass] 32.4 pg 27.0-32.0 [facility] Nucleated RBC/100 WBC (Bld) [Ratio] 0 % 0-5 [facility] MCHC Auto (RBC) [Mass/Vol]Or dered By: Reagan Soto on 04-19-2023 MCHC (RBC) [Mass/Vol] 32.5 g/dL 32-36 [facility] No Panel InformationOrdered By: Reagan Soto on 04-19-2023 Estimated GFR (MDRD) Amer 132 mL/min >60 [facility] Comment on above: GFR Calc Estimated GFR (MDRD) Non-Af Amer 109 mL/min >60 [facility] Comment on above: Non- GFR Calc Thyroid Stimulating Hormone (TSH) 2.56 uIU/mL 0.358-3.74 [facility] Vitamin D 25-Hydroxy 32.6 ng/mL [facility] Comment on above: Vitamin D 25(OH) Sta tus Range Deficiency <20 ng/mL (50nmol/L) Insufficiency 20 - 30 ng/mL (50 - 75 nmol/L) Sufficiency 30 - 100 ng/mL (75 - 250 nmol/L) Toxicity >100 ng/mL (>250 nmol/L) Platelets bldOrdered By: Jonathan Soto on 04-19-2023 Platelets (Bld) [#/Vol] 197 10*3/uL 150-450 [facility] Serum or plasma albumin amaya urement (mass/volume)Ordered By: Reagan Soto on 04-19-2023 Albumin [Mass/Vol] 3.6 g/dL 3.2-5.0 [facility] Serum or plasma albumin/glob ulin mass ratioOrdered By: Reagan Soto on 04-19-2023 Albumin/Globulin [Mass ratio] 1.1 {ratio} 0.9-2.4 [facility] Serum or plasma calcium amaya urement (mass/volume)Ordered By: Reagan Soto on 04-19-2023 Calcium [Mass/Vol] 9.2 mg/dL 8.5-10.1 [facility] Serum or plasma cholesterol in HDL measurement (mass/volume)Ordered By: Reagan Soto on 04-19-2023 Cholesterol in HDL [Mass/Vol] 39 mg/dL >40 [facility] Comment on above: The drugs N-Acetylcy steine and Metamizole may falsely depress this assay. Reference Range HDL <40 mg/dL Low HDL Cholesterol HDL >or= 60 mg/dL High HDL Cholesterol Serum or plasma cholesterol in VLDL measurement (mass/volume)Ordered By: Reagan Soto on 04-19-2023 Cholesterol in VLDL [Mass/Vol] 17 mg/dL 5-40 [facility] Serum or plasma creatinine m easurement (mass/volume)Ordered By: Reagan Soto on 04-19-2023 Creatinine [Mass/Vol] 0.76 mg/dL 0.70-1.30 [facility] Comment on above: The validity of the calculated GFR & GFRAA in patients over 70 years has not been determined. Clinical correlation is essential. Serum or plasma low density lipoprotein (LDL) cholesterol measurement (mass/volume)Ordered By: Reagan Soto on 04-19-2023 Cholesterol in LDL [Mass/Vol] 49 mg/dL 0-130 [facility] Serum or plasma urea nitroge n measurement (mass/volume)Ordered By: Reagan Soto on 04-19-2023 Urea nitrogen [Mass/Vol] 19 mg/dL 7-18 [facility] Thin prep Papanicolaou smear with manual screeningOrdered By: Reagan Soto on 04-19-2023 Thin prep Papanicolaou smear with manual screening 34 U/L 15-37 [facility] Thin prep Papanicolaou smear with manual screening 6 5-15 [facility] Whole blood hemoglobin A1c/t otal hemoglobin ratio (mass fraction)Ordered By: Reagan Soto on 04-19-2023 HbA1c (Bld) [Mass fraction] 6.0 % 3.8-5.6 [facility] Comment on above: Normal < 5.7 % Predi abetic 5.7 - 6.4 % Diabetic >or= 6.5 % Please note range changes. Absolute lymphocyte countOrd ered By: Dr. Soto on 12-27-2022 Lymphocytes Auto (Unsp spec) [#/Vol] 0.72 10*3/uL 0.83-4.51 [facility] Basophil percentageOrdered B y: Dr. Soto on 12-27-2022 Basophils/100 WBC (Bld) 0.2 % 0-1 [facility] Bilirubin [Mass/Vol] 0.40 mg/dL 0.20-1.00 [facility] Comment on above: For patients on eltr ombopag therapy, use of Dimension Magness TBIL is not recommended. Chloride [Moles/Vol] 102 mmol/L 98-107 [facility] Cholesterol [Mass/Vol] 113 mg/dL <200 [facility] Comment on above: <200 mg/dL Desirable 200-240 mg/dL Borderline >240 mg/dL High Risk Eosinophils/100 WBC (Bld) 0.2 % 0-5 [facility] Glucose [Mass/Vol] 238 mg/dL 74-106 [facility] Comment on above: Glucose result great er than or equal to 200 mg/dLsuggests DIABETES MELLITUS per A.D.A. criteria. Neutrophils (Bld) [#/Vol] 11.6 10*3/uL 2.0-7.7 [facility] Neutrophils/100 WBC (Bld) 90.4 % 47-70 [facility] Potassium [Moles/Vol] 4.3 mmol/L 3.5-5.1 [facility] Protein [Mass/Vol] 6.8 g/dL 6.4-8.2 [facility] Sodium [Moles/Vol] 137 mmol/L 136-145 [facility] Triglyceride [Mass/Vol] 148 mg/dL <199 [facility] Comment on above: The drugs N-Acetylcy steine and Metamizole may falsely depress this assay.Serum Triglycerides Reference Interval Normal <150 mg/dL Borderline high 150 - 199 mg/dL High 200 - 499 mg/dL Very High > or = 500 mg/dL WBC (Bld) [#/Vol] 12.9 10*3/uL 4.4-11.[address] [facility] Blood erythrocytes count (nu mber/volume)Ordered By: Dr. Soto on 12-27-2022 RBC (Bld) [#/Vol] 4.92 10*6/uL 4.6-6.[address] [facility] Blood hemoglobin measurement (mass/volume)Ordered By: Dr. Soto on 12-27-2022 Hemoglobin (Bld) [Mass/Vol] 15.6 g/dL 13.0-16.5 [facility] Blood lymphocytes/100 leukoc ytesOrdered By: Dr. Soto on 12-27-2022 Lymphocytes/100 WBC (Bld) 5.6 % 19-41 [facility] Blood monocytes/100 leukocyt esOrdered By: Dr. Soto on 12-27-2022 Monocytes/100 WBC (Bld) 3.1 % 0-10 [facility] Blood platelet mean volumeOr dered By: Dr. Soto on 12-27-2022 Platelet mean volume (Bld) [Entitic vol] 11.7 fL 6.2-12.0 [facility] Determination of erythrocyte mean corpuscular volume (MCV)Ordered By: Dr. Soto on 12-27-2022 MCV (RBC) [Entitic vol] 97.2 fL 80-94 [facility] Hematocrit Auto (Bld) [Volum e fraction]Ordered By: Dr. Soto on 03-06-2023 Hematocrit (Bld) [Volume fraction] 47.8 % 40-54 [facility] - Chemistry and C hemistry - challengeOrdered By: Dr. Soto on 12-27-2022 ALP [Catalytic activity/Vol] 61 U/L 45-117 [facility] ALT [Catalytic activity/Vol] 50 U/L 16-61 [facility] CO2 [Moles/Vol] 26.0 mmol/L 21.0-32.0 [facility] Globulin (S) [Mass/Vol] 3.2 g/dL 2.2-4.2 [facility] Urea nitrogen/Creatinine [Mass ratio] 29.9 mg/mg 10-20 [facility] - Hematology and Cell countsOrdered By: Dr. Soto on 12-27-2022 Erythrocyte distribution width (RBC) [Entitic vol] 47.6 fL 35.1-43.9 [facility] Erythrocyte distribution width (RBC) [Ratio] 13.2 % 11.6-14.6 [facility] Immature granulocytes/100 WBC (Bld) 0.500 % 0.0-0.9 [facility] Comment on above: IG% - Immature Granu locytes (promyelocytes, myelocytes and metamyelocytes) > 1% indicates that a LEFT SHIFT is Present. MCH (RBC) [Entitic mass] 31.7 pg 27.0-32.0 [facility] Nucleated RBC/100 WBC (Bld) [Ratio] 0 % 0-5 [facility] MCHC Auto (RBC) [Mass/Vol]Or dered By: Dr. Soto on 12-27-2022 MCHC (RBC) [Mass/Vol] 32.6 g/dL 32-36 [facility] No Panel InformationOrdered By: Dr. Soto on 12-27-2022 Urine Microalbumin/Creatinine Ratio 94.2 mg/g CRE <30 [facility] Estimated GFR (MDRD) Amer 101 mL/min >60 [facility] Comment on above: GFR Calc Estimated GFR (MDRD) Non-Af Amer 83 mL/min >60 [facility] Comment on above: Non- GFR Calc Prostate Specific Antigen Screen 0.18 ng/mL 0.00-4.00 [facility] Comment on above: This test was perfor med using the TPSA assay method for the[employer] chemistry system. Values obtained with differentassay methods cannot be used interchangably.When changing PSA assays in the course of monitoring apatient, additional sequential testing should be carriedout to confirm baseline values. Thyroid Stimulating Hormone (TSH) 0.87 uIU/mL 0.358-3.74 [facility] Platelets bldOrdered By: Dr. Soto on 12-27-2022 Platelets (Bld) [#/Vol] 158 10*3/uL 150-450 [facility] Serum or plasma albumin amaya urement (mass/volume)Ordered By: Dr. Soto on 12-27-2022 Albumin [Mass/Vol] 3.6 g/dL 3.2-5.0 [facility] Serum or plasma albumin/glob ulin mass ratioOrdered By: Dr. Soto on 12-27-2022 Albumin/Globulin [Mass ratio] 1.1 {ratio} 0.9-2.4 [facility] Serum or plasma calcium amaya urement (mass/volume)Ordered By: Dr. Soto on 12-27-2022 Calcium [Mass/Vol] 9.2 mg/dL 8.5-10.1 [facility] Serum or plasma cholesterol in HDL measurement (mass/volume)Ordered By: Dr. Soto on 12-27-2022 Cholesterol in HDL [Mass/Vol] 41 mg/dL >40 [facility] Comment on above: The drugs N-Acetylcy steine and Metamizole may falsely depress this assay. Reference Range HDL <40 mg/dL Low HDL Cholesterol HDL >or= 60 mg/dL High HDL Cholesterol Serum or plasma cholesterol in VLDL measurement (mass/volume)Ordered By: Dr. Soto on 12-27-2022 Cholesterol in VLDL [Mass/Vol] 30 mg/dL 5-40 [facility] Serum or plasma creatinine m easurement (mass/volume)Ordered By: Dr. Soto on 12-27-2022 Creatinine [Mass/Vol] 0.97 mg/dL 0.70-1.30 [facility] Comment on above: The validity of the calculated GFR & GFRAA in patients over 70 years has not been determined. Clinical correlation is essential. Serum or plasma low density lipoprotein (LDL) cholesterol measurement (mass/volume)Ordered By: Dr. Soto on 12-27-2022 Cholesterol in LDL [Mass/Vol] 42 mg/dL 0-130 [facility] Serum or plasma urea nitroge n measurement (mass/volume)Ordered By: Dr. Soto on 12-27-2022 Urea nitrogen [Mass/Vol] 29 mg/dL 7-18 [facility] Thin prep Papanicolaou smear with manual screeningOrdered By: Dr. Soto on 12-27-2022 Thin prep Papanicolaou smear with manual screening 27.8 mg/L NO RANGE EST. [facility] Thin prep Papanicolaou smear with manual screening 18 U/L 15-37 [facility] Thin prep Papanicolaou smear with manual screening 9 5-15 [facility] Urine creatinine measurement (mass/volume)Ordered By: Dr. Soto on 12-27-2022 Creatinine (U) [Mass/Vol] 29.50 mg/dL NO RANGE EST. [facility] Whole blood hemoglobin A1c/t otal hemoglobin ratio (mass fraction)Ordered By: Dr. Soto on 12-27-2022 HbA1c (Bld) [Mass fraction] 8.6 % 3.8-5.6 [facility] Comment on above: Normal < 5.7 % Predi abetic 5.7 - 6.4 % Diabetic >or= 6.5 % Please note range changes. Sabine 08-31-2022 CNPN Telephone (4CQ) -- FRANK ZIMMER ([id number]) 1960 M Date Time Provider Department 08/31/22 NO PCP 4CQ During your visit today, we recorded the following information about you: Allergies As of Date: 08/31/2022 Noted Allergy Reaction BEES 09/27/2005 Comments: ANAPHALACTIC REACTION MORPHINE 08/22/2022 11 - Vomiting Date Reviewed: 08/22/2022 Reviewed by: Rom Patel RN - Fully Assessed Reason for Visit: Follow Up Phone Call [[phone]] Cmt: Post Discharge F/U - attempt made. No answer. Prescriptions as of 08/31/2022 - amiodarone 400 mg tablet Take 1 tablet by mouth once daily. - aspirin, enteric coated (ASPIRIN, ENTERIC COATED) 81 mg EC tablet Take 81 mg by mouth once daily. - carvedilol (COREG) 25 mg tablet Take 1 (one) Tablet by mouth two times daily - JARDIANCE 25 mg tablet Take 25 mg by mouth daily with breakfast. - furosemide (LASIX) 20 mg tablet Take 20 mg by mouth once daily. - lisinopril (ZESTRIL, PRINIVIL) 40 mg tablet Take 40 mg by mouth once daily. - metFORMIN ER (GLUCOPHAGE XR) 500 mg 24 hr tablet Take 500 mg by mouth twice daily. - rosuvastatin (CRESTOR) 40 mg tablet TAKE 1 TABLET BY MOUTH EVERY DAY nightly Problem List As Of Date 08/31/2022 Noted Resolved PAIN IN JOINT, LOWER LEG [M25.569] 03/07/2006 Ventricular tachyarrhythmia [I47.20] 08/22/2022 Coronary artery disease involving [place]*08/23/2022 Ischemic cardiomyopathy [I25.5] 08/23/2022 Obesity, Class I, BMI 30-34.9 [E66.9] 08/24/2022 Encounter Status:Closed by PAULA FERRELL on 08/31/22 Normal [facility] EMERGENCY REPORTon 2 EMERGENCY REPORT [facility] EMERGENCY ROOM REPORT NAME ACCOUNT SEX AGE ADMIT DISCHARGE PT MED. RECORD# NUMBER DATE DATE TYPE MESHA [id number] M 62 08/21/22 08/21/22 3 FRANK [place] [id number] ROOM: ER DATE OF : 1960 DICTATING PHYSICIAN: Viry Awan HISTORY OF PRESENT ILLNESS: The patient came in. He had ventricular fibrillation/ventricular tachycardia. The patient has had a history of coronary artery disease. He has had 2 heart attacks. He has had stents placed. He had a defibrillator placed. PAST MEDICAL HISTORY: He also has a history of atrial fibrillation, diabetes, hypertension, and hyperlipidemia. He has had bladder cancer. SOCIAL HISTORY: He does not smoke or drink. REVIEW OF SYSTEMS: Ten systems reviewed and negative except as mentioned above. PHYSICAL EXAMINATION: VITAL SIGNS: He is afebrile. Pulse 94, respirations 18, blood pressure 165/106, and pulse oximetry 91% on room air. HEENT: Head is normocephalic and atraumatic. Eyes: Pupils are equal, round, and reactive to light. Extraocular muscles are intact. Nares are patent. Throat has adequate oral moisture. Uvula is midline. NECK: Neck is supple without petechiae or rash. HEART: Heart is regular rate and rhythm without murmur. S1 equals S2. No S3 or S4 appreciated. His heart was regular rate and rhythm except when he would get shocked obviously. LUNGS: Lungs are clear to auscultation bilaterally. No rales, rhonchi, or retractions. ABDOMEN: Abdomen is soft, nontender, and nondistended. SKIN: Skin is warm and dry. DIAGNOSTIC DATA: Chest x-ray was unremarkable. He had EKGs. First EKG showed a paced rhythm. Second EKG showed ventricular tachycardia, and then it showed ventricular tachycardia/ventricular fibrillation, and then it showed a paced rhythm. He also has a left bundle branch block. He was shocked multiple times while he was here. His initial troponin as normal. White count was 10,000, H&H 16 and 48, and platelet count 220,000. EMERGENCY DEPARTMENT COURSE AND TREATMENT: He was anxious when he Page 1 of 2 FRANK ZIMMER Emergency Room Report FRANK ZIMMER : 1960 had his defibrillator going off. An IV was established. We did place him on an amiodarone drip. He was given two 150 mg boluses twice, and then was placed on an amiodarone drip. He was also given Versed to help with his shocking. DIAGNOSIS: Ventricular tachycardia/ventricular fibrillation. PLAN/DISPOSITION: I will also get a CT of his chest since his D-dimer is elevated. We did call multiple hospitals. Dr. Shane would not take him at [facility] because he said he needs an linotypist. I did discuss with Dr. Multani, who would accept the patient; however, they did not have a bed. We talked to the [facility], and they did have a bed, and they did accept the patient. He is going to be transferred to [facility]. We also called [facility], and they are diversion and are not accepting anybody at this time. Dictated By: Viry Awan DO 08/21/22 21:09 JOB #: [id number] Transcribed By: am 08/23/22 06:18 Electronically signed by: SRAVANI Awan DO 08/23/22 07:22 Page 2 of 2 FRANK ZIMMER Emergency Room Report Normal [facility] ICD CLINIC CHECKon 2 ICD-Device Mfg STJ [facility] ICD-Rhythm /VS @ 62 bpm [facility] Lead1 [facility] Lead3 [facility] Location LV [facility] Location RA [facility] Location RV [facility] Model 3369-40C Quadra Assura MP [facility] Model 1457Q [facility] Model 2088TC Tendril STS [facility] Model 7122 Durata [facility] Pacemaker Dependent? NO [facility] Serial Number [id number] [facility] Serial Number [id number] [facility] Serial Number [id number] [facility] Serial Number [id number] [facility] No Panel Informationon 08-23 BLANK _ [facility] Implant Date 11/22/2019 [facility] APTTon 08-21-2022 aPTT Coag (Bld) [Time] 35.3 s Normal 25.4 - 38.4 [facility] Comment on above: Performed By: #### 2 67423 #### [facility],[address] [place] [address] CBC + DIFFon 08-21-2022 Baso # 0.10 x10EE3/UL Normal 0.00 - 0.10 [facility] Comment on above: Performed By: #### 2 82915 #### [facility],[address] [place] [address] Basophils/100 WBC (Bld) 0.9 % Normal 0.0 - 2.0 [facility] Comment on above: Performed By: #### 2 16596 #### [facility],[address] [place] [address] CBC + DIFF Normal [facility] Comment on above: Result Comment: CBC- COMPLETE BLOOD COUNT Performed By: #### 2 23591 #### [facility],[address] [place] [address] EO # 0.10 x10EE3/UL Normal 0.00 - 0.50 [facility] Comment on above: Performed By: #### 2 01954 #### [facility],[address] [place] [address]8640 Eosinophils/100 WBC (Bld) 1.1 % Normal 0.0 - 7.0 [facility] Comment on above: Performed By: #### 2 47514 #### [facility],[address] [place], [place] [id number] Erythrocyte distribution width (RBC) [Ratio] 13.5 % Normal 12.0 - 15.6 [facility] Comment on above: Performed By: #### 2 33250 #### [facility],[address] [place] [address]661 Hematocrit (Bld) [Volume fraction] 48.0 % Normal 40.0 - 52.0 [facility] Comment on above: Performed By: #### 2 76666 #### [facility],[address] [place] [address]10 Hemoglobin (Bld) [Mass/Vol] 16.3 g/dL Normal 13.0 - 17.5 [facility] Comment on above: Performed By: #### 2 61284 #### [facility],[address] [place] [address] 88161 Lymph # 2.00 x10EE3/UL Normal 0.80 - 2.80 [facility] Comment on above: Performed By: #### 2 43761 #### [facility],[address] [place] [address] 27294 Lymphocytes/100 WBC (Bld) 18.5 % Low 20.0 - 45.0 [facility] Comment on above: Performed By: #### 2 50393 #### [facility],[address] [place] [address] 20062 MANUAL DIFF N/A Normal [facility] Comment on above: Performed By: #### 2 27269 #### [facility],[address] [place] [address] 19645 MCH (RBC) [Entitic mass] 32 pg Normal 27 - 33 [facility] Comment on above: Performed By: #### 2 97470 #### [facility],[address] [place] [address] MCHC 34 X10 3 Normal 32 - 36 [facility] Comment on above: Performed By: #### 2 09992 #### [facility],[address] [place], [place] [id number] MCV (RBC) [Entitic vol] 93 fL Normal 81 - 98 [facility] Comment on above: Performed By: #### 2 73704 #### [facility],[address] [place] [address] Gila # 1.20 x10EE3/UL High 0.20 - 1.00 [facility] Comment on above: Performed By: #### 2 72798 #### [facility],[address] [place] [address] 36490 MONOS % 11.2 % High 0.0 - 10.0 [facility] Comment on above: Performed By: #### 2 26487 #### [facility],[address] [place] [address] 82834 Morphology Kg (Bld) [Interp] N/A Normal [facility] Comment on above: Result Comment: {CD] Performed By: #### 2 11711 #### [facility],[address] [place] [address] 70543 Neut # 7.50 x10EE3/UL High 1.50 - 7.10 [facility] Comment on above: Performed By: #### 2 35058 #### [facility],[address] [place] [address] 21246 Neutrophils/100 WBC (Bld) 68.3 % Normal 46.0 - 76.0 [facility] Comment on above: Performed By: #### 2 02456 #### [facility],[address] [place] [address] 86636 PLATELET 220 x10EE3/UL Normal 150 - 450 [facility] Comment on above: Performed By: #### 2 60197 #### [facility],[address] [place] [address] 44658 Platelet mean volume (Bld) [Entitic vol] 9.1 fL Normal 6.4 - 10.5 [facility] Comment on above: Result Comment: AUTO MATED DIFFERENTIAL Performed By: #### 2 78742 #### [facility],[address] [place] [address] 61439 RBC 5.15 x 10EE6/UL Normal 4.50 - 6.00 [facility] Comment on above: Performed By: #### 2 45265 #### [facility],[address] [place] [address] 38252 WBC 10.9 x 10EE3/UL High 4.5 - 10.8 [facility] Comment on above: Performed By: #### 2 34969 #### [facility],[address] [place] [address]392 CHEST 1 VIEWon 08-21-2022 CHEST 1 VIEW [place] [address] Patient: FRANK ZIMMER Phone#: : 1960 Age: 62 Gender: M Pt. Type: ER Account: [id number] Location: [facility] Ordering: VIRY AWAN Exam Date: 08/21/2022/18:15 Family Phys: Charge Code: [id number] Physician: [place] Order #: [id number] Dose#: PROCEDURE: X-RAY CHEST 1 VIEW COMPARISON: None. INDICATIONS: Heart arythmia. FINDINGS: LUNGS: There is mild elevation of the right hemidiaphragm. There is no evidence of acute pulmonary abnormality. VASCULATURE: Normal. Unremarkable pulmonary vasculature. CARDIAC: Normal. No cardiac silhouette abnormality or cardiomegaly. MEDIASTINUM: Normal. No visible mass or adenopathy. PLEURA: Normal. No effusion or pleural thickening. BONES: Normal. No fracture or visible bony lesion. OTHER: Negative. CONCLUSION: No acute disease. Dictated by: Kandy Pritchett MD on 08/22/2022 at 21:08 Approved by: Kandy Pritchett MD on 08/22/2022 at 21:14 Normal [facility] CMP with eGFRon 08-21-2022 AGE 62 years Normal [facility] Comment on above: Performed By: #### 2 49199 #### [address] [address] Albumin [Mass/Vol] 4.0 g/dL Normal 3.4 - 5.0 [facility] Comment on above: Performed By: #### 2 25601 #### [address] [address] Albumin/Globulin [Mass ratio] 1.1 {ratio} Normal 0.9 - 1.6 [facility] Comment on above: Performed By: #### 2 35417 #### [address] [address] ALK PHOS 85 U/L Normal 46 - 116 [facility] Comment on above: Performed By: #### 2 81676 #### [address] [address] ALT [Catalytic activity/Vol] 31 U/L Normal 16 - 63 [facility] Comment on above: Performed By: #### 2 28015 #### [address] [address] Anion gap [Moles/Vol] 14 mmol/L Normal 10 - 20 [facility] Comment on above: Performed By: #### 2 51027 #### [facility],[address] [place] [address] 74667 AST [Catalytic activity/Vol] 15 U/L Normal 15 - 37 [facility] Comment on above: Performed By: #### 2 51515 #### [facility],[address] [place] [address] 09396 B/C RATIO 23 ratio Normal 0 - 30 [facility] Comment on above: Performed By: #### 2 16138 #### [facility],[address] [place] [address] 99731 Bilirubin [Mass/Vol] 0.5 mg/dL Normal 0.2 - 1.0 [facility] Comment on above: Performed By: #### 2 12108 #### [facility],[address] [place] [address] 89195 Calcium [Mass/Vol] 9.2 mg/dL Normal 8.5 - 10.1 [facility] Comment on above: Performed By: #### 2 69338 #### [facility],[address] [place] [address] 59673 Chloride [Moles/Vol] 101 mmol/L Normal 98 - 107 [facility] Comment on above: Performed By: #### 2 49827 #### [facility],[address] [place] [address]10 CMP with eGFR Normal [facility] Comment on above: Result Comment: COMP REHENSIVE METABOLIC PANEL Performed By: #### 2 79334 #### [facility],[address] [place] [address] 12273 CO2 [Moles/Vol] 25.7 mmol/L Normal 21.0 - 32.0 [facility] Comment on above: Performed By: #### 2 05954 #### [facility],[address] [place] [address]7613 Creatinine [Mass/Vol] 0.83 mg/dL Normal 0.70 - 1.30 [facility] Comment on above: Performed By: #### 2 36852 #### [facility],[address] [place] [address] GFR/1.73 sq M.predicted among non-blacks MDRD (S/P/Bld) [Vol rate/Area] mL/min/{1.73_m2} Normal 60 - 999 [facility] Comment on above: Performed By: #### 2 97431 #### [facility],[address] [place] [address] Result Comment: ACCO RDING TO THE NATIONAL KIDNEY DISEASE EDUCATION PROGRAM(NKDE), A NORMAL eGFR IS A VALUE GREATER THAN OR EQUAL TO 60 ML/MIN/1.73 SQ METERS. CHRONIC KIDNEY DISEASE: <60mL/MIN/1.73 SQ METERS KIDNEY FAILURE: <15mL/MIN/1.73 SQ METERS THIS TEST SHOULD ONLY BE USED FOR PATIENTS 18 YEARS OF AGE AND OLDER. Globulin (S) [Mass/Vol] 3.6 g/dL Normal 1.5 - 3.8 [facility] Comment on above: Performed By: #### 2 17862 #### [place] [address] Glucose [Mass/Vol] 187 mg/dL High 74 - 106 [facility] Comment on above: Performed By: #### 2 79225 #### [place] [id number] Potassium [Moles/Vol] 3.6 mmol/L Normal 3.5 - 5.1 [facility] Comment on above: Performed By: #### 2 24659 #### [address] [address] Protein [Mass/Vol] 7.6 g/dL Normal 6.4 - 8.2 [facility] Comment on above: Performed By: #### 2 07497 #### [place] [address] Sodium [Moles/Vol] 137 mmol/L Normal 136 - 145 [facility] Comment on above: Performed By: #### 2 17388 #### [facility],[address] [place] [address] 45946 Urea nitrogen [Mass/Vol] 19 mg/dL High 7 - 18 [facility] Comment on above: Performed By: #### 2 32699 #### [facility],[address] [place] [address] CHEST (PE PROTOCOL)on CT CHEST (PE PROTOCOL) [address] [address] Patient: FRANK ZIMMER Phone#: : 1960 Age: 62 Gender: M Pt. Type: ER Account: [id number] Location: [facility] Ordering: VIRY AWAN Exam Date: 08/21/2022/21:23 Family Phys: REAGAN SOTO Charge Code: [id number] Physician: [place] Order #: [id number] Dose#: 11.2mGy PROCEDURE: CT CHEST WITH CONTRAST FOR PE COMPARISON: None. INDICATIONS: Chest pain. TECHNIQUE: After obtaining the patient's consent, CT images were obtained with non-ionic intravenous contrast material. Multi-planar images were created to optimize visualization of vascular anatomy with MPR/MIPS and 3D imaging. All CT scans at this facility use dose modulation, iterative reconstruction, and/or weight based dosing when appropriate to reduce radiation dose to as low as reasonably achievable. IV CONTRAST: Omnipaque 350,100ml TOTAL DOSE: 11.2 CTDIvol(mGy) FINDINGS: VASCULATURE: Normal. No visible pulmonary arterial thrombus or attenuation. AORTA: Normal. No aneurysm or dissection. LUNGS: Linear atelectasis versus scar in the lung bases. Mild emphysematous changes are present. Chronic interstitial changes are present. There are no are jeweler foci in the right middle lobe the largest measuring 5.7 millimeters in diameter. There is a 4 millimeter nodule in the lingula. SHANNAN: Normal. No mass or adenopathy. MEDIASTINUM: Normal. No mass or adenopathy. CARDIAC: Normal. No enlargement, pericardial thickening, or significant calcification. PLEURA: Normal. No mass or effusion. CHEST WALL: Normal. No mass or axillary adenopathy. LIMITED ABDOMEN: Normal. Limited images of the upper abdomen are unremarkable. BONES: Normal. No bony lesion or fracture. OTHER: Cardiac pacing device is present. CONCLUSION: Continued Report - Page 2 of 2 Patient: FRANK ZIMMER Phone#: : 1960 Age: 62 Gender: M Pt. Type: ER Account: [id number] Location: 052 Ordering: VIRY AWAN Exam Date: 08/21/2022/21:23 Family Phys: REAGAN SOTO Charge Code: [id number] Physician: [place] Order #: [id number] Dose#: [id number] 1. Nonspecific nodular foci are present in the right middle lobe and left lingula. 2. There is no evidence of pulmonary embolus. Dictated by: Kandy Pritchett MD on 08/22/2022 at 21:39 Approved by: Kandy Pritchett MD on 08/22/2022 at 21:42 Normal [facility] MAGNESIUMon 08-21-2022 Magnesium [Mass/Vol] 1.8 mg/dL Normal 1.8 - 2.4 [facility] Comment on above: Performed By: #### 2 [id number] #### [facility],[address] [place] [address] PROTHROMBIN TIME AND INRon 1 INR Coag (PPP) [Relative time] 1.1 {INR} Normal 0.8 - 1.2 [facility] Comment on above: Result Comment: T HE HEMOSIL THROMBOPLASTIN REAGENT USED IN THE PROTHROMBIN TIME TEST INTERACTS WITH THE DRUG CUBICIN (DAPTOMYCIN) AND WILL RESULT IN FALSELY ELEVATED PT / INR RESULTS INR INTERPRETATION INR INDICATION PREVENTION AND TREATMENT OF THROMBOEMBOLISM ASSOCIATED WITH: 2.0 - 3.0 ATRIAL FIBRILLATION, BIOPROSTHETIC HEART VALVES, PULMONARY EMBOLISM, VENOUS THROMBOSIS, SYSTEMIC EMBOLISM POST MYOCARDIAL INFARCTION 2.5 - 3.5 MECHANICAL HEART VALVES Performed By: #### 2 [id number] #### [facility],[address] [place] [address] PROTHROMBIN TIME AND INR Normal [facility] Comment on above: Result Comment: PROT HROMBIN TIME AND INR Performed By: #### 2 [id number] #### [facility],[address] [place] [address] PT-COUMADIN 12.5 sec Normal 9.3 - 14.1 [facility] Comment on above: Performed By: #### 2 [id number] #### [facility],[address] [place], [place] [address] TROPONIN I, HIGH SENSITIVITY on 08-21-2022 HS TROPONIN 101.6 pg/mL Critically high 0.0 - 76.2 [facility] Comment on above: Result Comment: { CA LLED TO ER AT 2146 { READ BACK BY LOIDA TO AEL AT 2146 Performed By: #### 2 [id number] #### [facility],[address] [place], [place] [id number] HS TROPONIN 38.9 pg/mL Normal 0.0 - 76.2 [facility] Comment on above: Performed By: #### 2 [id number] #### [facility],[address] [place] [address] Absolute lymphocyte counton 06-07-2022 Lymphocytes Auto (Unsp spec) [#/Vol] 1.50 10*3/uL 0.83-4.51 [facility] Work Phone: Basophil percentageon 2021 Basophils/100 WBC (Bld) 0.6 % 0-1 [facility] Work Phone: Bilirubin [Mass/Vol] 0.60 mg/dL 0.20-1.00 [facility] Work Phone: Comment on above: For patients on eltr ombopag therapy, use of Dimension Magness TBIL is not recommended. Chloride [Moles/Vol] 105 mmol/L 98-107 [facility] Work Phone: Eosinophils/100 WBC (Bld) 2.7 % 0-5 [facility] Work Phone: Glucose [Mass/Vol] 151 mg/dL 74-106 [facility] Work Phone: Comment on above: Fasting Glucose resu lt greater than or equal to 126 mg/dL suggests DIABETES MELLITUS per A.D.A. criteria. Neutrophils (Bld) [#/Vol] 7.5 10*3/uL 2.0-7.7 [facility] Work Phone: Neutrophils/100 WBC (Bld) 73.1 % 47-70 [facility] Work Phone: Potassium [Moles/Vol] 3.9 mmol/L 3.5-5.1 [facility] Work Phone: Protein [Mass/Vol] 7.3 g/dL 6.4-8.2 [facility] Work Phone: Sodium [Moles/Vol] 136 mmol/L 136-145 [facility] Work Phone: WBC (Bld) [#/Vol] 10.3 10*3/uL 4.4-11.[address] [facility] Work Phone: Blood erythrocytes count (nu mber/volume)on 06-07-2022 RBC (Bld) [#/Vol] 5.09 10*6/uL 4.6-6.[address] [facility] Work Phone: Blood hemoglobin measurement (mass/volume)on 06-07-2022 Hemoglobin (Bld) [Mass/Vol] 15.9 g/dL 13.0-16.5 [facility] Work Phone: Blood lymphocytes/100 leukoc yteson 06-07-2022 Lymphocytes/100 WBC (Bld) 14.6 % 19-41 [facility] Work Phone: Blood monocytes/100 leukocyt eson 06-07-2022 Monocytes/100 WBC (Bld) 8.6 % 0-10 [facility] Work Phone: Blood platelet mean volumeon 06-07-2022 Platelet mean volume (Bld) [Entitic vol] 11.3 fL 6.2-12.0 [facility] Work Phone: Determination of erythrocyte mean corpuscular volume (MCV)on 06-07-2022 MCV (RBC) [Entitic vol] 93.3 fL 80-94 [facility] Work Phone: [phone] Hematocrit Auto (Bld) [Volum e fraction]on 06-07-2022 Hematocrit (Bld) [Volume fraction] 47.5 % 40-54 [facility] Work Phone: [phone] Laboratory - Chemistry and C hemistry - challengeon 06-07-2022 ALP [Catalytic activity/Vol] 77 U/L 45-117 [facility] Work Phone: ALT [Catalytic activity/Vol] 40 U/L 16-61 [facility] Work Phone: [phone] CO2 [Moles/Vol] 24.0 mmol/L 21.0-32.0 [facility] Work Phone: [phone] Globulin (S) [Mass/Vol] 3.6 g/dL 2.2-4.2 [facility] Work Phone: [phone] Urea nitrogen/Creatinine [Mass ratio] 22.3 mg/mg 10-20 [facility] Work Phone: [phone] Laboratory - Hematology and Cell countson 06-07-2022 Erythrocyte distribution width (RBC) [Entitic vol] 46.0 fL 35.1-43.9 [facility] Work Phone: [phone] Erythrocyte distribution width (RBC) [Ratio] 13.4 % 11.6-14.6 [facility] Work Phone: [phone] Immature granulocytes/100 WBC (Bld) 0.400 % 0.0-0.9 [facility] Work Phone: [phone] Comment on above: IG% - Immature Granu locytes (promyelocytes, myelocytes and metamyelocytes) > 1% indicates that a LEFT SHIFT is Present. MCH (RBC) [Entitic mass] 31.2 pg 27.0-32.0 [facility] Work Phone: Nucleated RBC/100 WBC (Bld) [Ratio] 0 % 0-5 [facility] Work Phone: MCHC Auto (RBC) [Mass/Vol]on 06-07-2022 MCHC (RBC) [Mass/Vol] 33.5 g/dL 32-36 [facility] Work Phone: No Panel Informationon 06-07 Estimated GFR (MDRD) Amer 133 mL/min >60 [facility] Work Phone: Comment on above: GFR Calc Estimated GFR (MDRD) Non-Af Amer 110 mL/min >60 [facility] Work Phone: Comment on above: Non- GFR Calc Platelets bldon 06-07-2022 Platelets (Bld) [#/Vol] 161 10*3/uL 150-450 [facility] Work Phone: Serum or plasma albumin amaya urement (mass/volume)on 06-07-2022 Albumin [Mass/Vol] 3.7 g/dL 3.2-5.0 [facility] Work Phone: Serum or plasma albumin/glob ulin mass ratioon 06-07-2022 Albumin/Globulin [Mass ratio] 1.0 {ratio} 0.9-2.4 [facility] Work Phone: Serum or plasma calcium amaya urement (mass/volume)on 06-07-2022 Calcium [Mass/Vol] 9.0 mg/dL 8.5-10.1 [facility] Work Phone: Serum or plasma creatinine m easurement (mass/volume)on 06-07-2022 Creatinine [Mass/Vol] 0.76 mg/dL 0.70-1.30 [facility] Work Phone: Comment on above: The validity of the calculated GFR & GFRAA in patients over 70 years has not been determined. Clinical correlation is essential. Serum or plasma urea nitroge n measurement (mass/volume)on 06-07-2022 Urea nitrogen [Mass/Vol] 17 mg/dL 7-18 [facility] Work Phone: Thin prep Papanicolaou smear with manual screeningon 06-07-2022 Thin prep Papanicolaou smear with manual screening 15 U/L 15-37 [facility] Work Phone: Thin prep Papanicolaou smear with manual screening 7 5-15 [facility] Work Phone: [phone] Absolute lymphocyte counton 05-11-2022 Lymphocytes Auto (Unsp spec) [#/Vol] 1.86 10*3/uL 0.83-4.51 [facility] Work Phone: [phone] Basophil percentageon 2021 Basophils/100 WBC (Bld) 0.5 % 0-1 [facility] Work Phone: Bilirubin [Mass/Vol] 0.30 mg/dL 0.20-1.00 [facility] Work Phone: Comment on above: For patients on eltr ombopag therapy, use of Dimension Magness TBIL is not recommended. Chloride [Moles/Vol] 106 mmol/L 98-107 [facility] Work Phone: Cholesterol [Mass/Vol] 145 mg/dL <200 [facility] Work Phone: Comment on above: <200 mg/dL Desirable 200-240 mg/dL Borderline >240 mg/dL High Risk Eosinophils/100 WBC (Bld) 2.1 % 0-5 [facility] Work Phone: [phone] Glucose [Mass/Vol] 114 mg/dL 74-106 [facility] Work Phone: Comment on above: Fasting Glucose resu lt from 100 to 125 mg/dL suggests IMPAIRED HOMEOSTASIS per A.D.A. criteria. Neutrophils (Bld) [#/Vol] 6.2 10*3/uL 2.0-7.7 [facility] Work Phone: [phone] Neutrophils/100 WBC (Bld) 66.9 % 47-70 [facility] Work Phone: Potassium [Moles/Vol] 4.1 mmol/L 3.5-5.1 [facility] Work Phone: [phone] Protein [Mass/Vol] 7.1 g/dL 6.4-8.2 [facility] Work Phone: [phone] Sodium [Moles/Vol] 139 mmol/L 136-145 [facility] Work Phone: [phone] Triglyceride [Mass/Vol] 137 mg/dL <199 [facility] Work Phone: [phone] Comment on above: The drugs N-Acetylcy steine and Metamizole may falsely depress this assay.Serum Triglycerides Reference Interval Normal <150 mg/dL Borderline high 150 - 199 mg/dL High 200 - 499 mg/dL Very High > or = 500 mg/dL WBC (Bld) [#/Vol] 9.2 10*3/uL 4.4-11.0 [facility] Work Phone: [phone] Blood erythrocytes count (nu mber/volume)on 05-11-2022 RBC (Bld) [#/Vol] 4.88 10*6/uL 4.6-6.[address] [facility] Work Phone: [phone] Blood hemoglobin measurement (mass/volume)on 05-11-2022 Hemoglobin (Bld) [Mass/Vol] 15.1 g/dL 13.0-16.5 [facility] Work Phone: Blood lymphocytes/100 leukoc yteson 05-11-2022 Lymphocytes/100 WBC (Bld) 20.2 % 19-41 [facility] Work Phone: Blood monocytes/100 leukocyt eson 05-11-2022 Monocytes/100 WBC (Bld) 10.0 % 0-10 [facility] Work Phone: Blood platelet mean volumeon 05-11-2022 Platelet mean volume (Bld) [Entitic vol] 11.7 fL 6.2-12.0 [facility] Work Phone: [phone] Determination of erythrocyte mean corpuscular volume (MCV)on 05-11-2022 MCV (RBC) [Entitic vol] 94.1 fL 80-94 [facility] Work Phone: Hematocrit Auto (Bld) [Volum e fraction]on 05-11-2022 Hematocrit (Bld) [Volume fraction] 45.9 % 40-54 [facility] Work Phone: Laboratory - Chemistry and C hemistry - challengeon 05-11-2022 ALP [Catalytic activity/Vol] 83 U/L 45-117 [facility] Work Phone: ALT [Catalytic activity/Vol] 29 U/L 16-61 [facility] Work Phone: CO2 [Moles/Vol] 25.0 mmol/L 21.0-32.0 [facility] Work Phone: Globulin (S) [Mass/Vol] 3.5 g/dL 2.2-4.2 [facility] Work Phone: Magnesium [Mass/Vol] 2.1 mg/dL 1.6-2.6 [facility]: Urea nitrogen/Creatinine [Mass ratio] 30.3 mg/mg 10-20 [facility] Work Phone: Laboratory - Hematology and Cell countson 05-11-2022 Erythrocyte distribution width (RBC) [Entitic vol] 47.8 fL 35.1-43.9 [facility] Work Phone: Erythrocyte distribution width (RBC) [Ratio] 13.8 % 11.6-14.6 [facility] Work Phone: Immature granulocytes/100 WBC (Bld) 0.300 % 0.0-0.9 [facility] Work Phone: Comment on above: IG% - Immature Granu locytes (promyelocytes, myelocytes and metamyelocytes) > 1% indicates that a LEFT SHIFT is Present. MCH (RBC) [Entitic mass] 30.9 pg 27.0-32.0 [facility] Work Phone: Nucleated RBC/100 WBC (Bld) [Ratio] 0 % 0-5 [facility] Work Phone: MCHC Auto (RBC) [Mass/Vol]on 05-11-2022 MCHC (RBC) [Mass/Vol] 32.9 g/dL 32-36 [facility] Work Phone: No Panel Informationon 05-11 Estimated GFR (MDRD) Amer 127 mL/min >60 [facility] Work Phone: Comment on above: GFR Calc Estimated GFR (MDRD) Non-Af Amer 105 mL/min >60 [facility] Work Phone: Comment on above: Non- GFR Calc Platelets bldon 05-11-2022 Platelets (Bld) [#/Vol] 176 10*3/uL 150-450 [facility] Work Phone: Serum or plasma albumin amaya urement (mass/volume)on 05-11-2022 Albumin [Mass/Vol] 3.6 g/dL 3.2-5.0 [facility] Work Phone: Serum or plasma albumin/glob ulin mass ratioon 05-11-2022 Albumin/Globulin [Mass ratio] 1.0 {ratio} 0.9-2.4 [facility] Work Phone: Serum or plasma calcium amaya urement (mass/volume)on 05-11-2022 Calcium [Mass/Vol] 9.3 mg/dL 8.5-10.1 [facility] Work Phone: Serum or plasma cholesterol in HDL measurement (mass/volume)on 05-11-2022 Cholesterol in HDL [Mass/Vol] 41 mg/dL >40 [facility] Work Phone: Comment on above: The drugs N-Acetylcy steine and Metamizole may falsely depress this assay. Reference Range HDL <40 mg/dL Low HDL Cholesterol HDL >or= 60 mg/dL High HDL Cholesterol Serum or plasma cholesterol in VLDL measurement (mass/volume)on 05-11-2022 Cholesterol in VLDL [Mass/Vol] 27 mg/dL 5-40 [facility] Work Phone: Serum or plasma creatinine m easurement (mass/volume)on 05-11-2022 Creatinine [Mass/Vol] 0.79 mg/dL 0.70-1.30 [facility] Work Phone: Comment on above: The validity of the calculated GFR & GFRAA in patients over 70 years has not been determined. Clinical correlation is essential. Serum or plasma low density lipoprotein (LDL) cholesterol measurement (mass/volume)on 05-11-2022 Cholesterol in LDL [Mass/Vol] 77 mg/dL 0-130 [facility] Work Phone: Serum or plasma urea nitroge n measurement (mass/volume)on 05-11-2022 Urea nitrogen [Mass/Vol] 24 mg/dL 7-18 [facility] Work Phone: Thin prep Papanicolaou smear with manual screeningon 05-11-2022 Thin prep Papanicolaou smear with manual screening 13 U/L 15-37 [facility] Work Phone: Thin prep Papanicolaou smear with manual screening 8 5-15 [facility] Work Phone: Whole blood hemoglobin A1c/t otal hemoglobin ratio (mass fraction)on 05-11-2022 HbA1c (Bld) [Mass fraction] 7.6 % 3.8-5.6 [facility] Work Phone: Comment on above: Normal < 5.7 % Predi abetic 5.7 - 6.4 % Diabetic >or= 6.5 % Please note range changes. Basic Metabolic Panelon 05-0 Anion gap [Moles/Vol] 11 mmol/L Normal 3-13 [facility] Comment on above: Performed By: #### M G3, HEMOG, BMP3 #### [facility] [employer] [address] [place] [address] Calcium [Mass/Vol] 9.0 mg/dL Normal 8.4-10.4 [facility] Comment on above: Performed By: #### M G3, HEMOG, BMP3 #### [facility] [employer] [address] [place] [address] CO2 [Moles/Vol] 19 mmol/L Low 22-30 [facility] Comment on above: Performed By: #### M Howard HEMOG, BMP3 #### [facility] [address], [place] Glucose [Mass/Vol] 111 mg/dL High 70-100 [facility] Comment on above: Performed By: #### M Howard HEMOG, BMP3 #### [facility] [address] [place], [place] Urea nitrogen [Mass/Vol] 22 mg/dL High 7-17 [facility] Comment on above: Performed By: #### M Howard HEMOG, BMP3 #### [facility] [address] [place], [place] eGFR OTHER > 90.0 Normal >60 [facility] Comment on above: Result Comment: KDIG O guidelines provide the following GFR categories: Stage GFR(ml/min/1.73 m2) Terms G1 >=90 Normal or high G2 60-89 Mildly decreased* G3a 45-59 Mildly to moderately decreased G3b 30-44 Moderately to severely decreased G4 15-29 Severely decreased G5 <15 Kidney failure *Relative to young adult level. In the absence of evidence of kidney damage, neither GFR category G1 nor G2 fulfill the criteria for CKD. The CKD-EPI equation is validated in individuals 18 years of age and older. Currently the best equation for estimating glomerular filtration rate (GFR) from serum creatinine in children is the Bedside Syed equation. It is less accurate in patients with extremes of muscle mass, restriction of dietary protein, ingestion of creatine, extra-renal metabolism of creatinine, or treatment with medications that affect renal tubular creatinine secretion. Performed By: #### M Howard HEMOG, BMP3 #### [facility] [address] [place], [place] Chloride [Moles/Vol] 104 mmol/L Normal 98-107 [facility] Comment on above: Performed By: #### M Howard HEMOG, BMP3 #### [facility] [address], [place] Potassium [Moles/Vol] 4.7 mmol/L Normal 3.5-5.1 [facility] Comment on above: Result Comment: Slig htly hemolysed, interpret with caution. Performed By: #### M G3, HEMOG, BMP3 #### [facility] [address], [place] Sodium [Moles/Vol] 133 mmol/L Low 135-145 [facility] Comment on above: Performed By: #### M G3, HEMOG, BMP3 #### [facility] [address], [place] Creatinine [Mass/Vol] 0.76 mg/dL Normal 0.52-1.25 [facility] Comment on above: Performed By: #### M G3, HEMOG, BMP3 #### [facility] [address], [place] GFR/1.73 sq M.predicted among blacks MDRD (S/P/Bld) [Vol rate/Area] mL/min/{1.73_m2} Normal >60 [facility] Comment on above: Performed By: #### M G3, HEMOG, BMP3 #### [facility] [address] [place], [place] Anion gap [Moles/Vol] 11 mmol/L 3 - 13 mmol/L [facility] Calcium [Mass/Vol] 9.0 mg/dL 8.4 - 10. 4 mg/dL [facility] Chloride [Moles/Vol] 104 mmol/L 98 - 10 7 mmol/L [facility] CO2 [Moles/Vol] 19 mmol/L Low 22 - 30 mmol/L [facility] EGFR IF NonAfrican Tunisian >90.0 >60 mL/min [facility] Comment on above: KDIGO guidelines pro vide the following GFR categories: Stage GFR(ml/min/1.73 m2) Terms G1 >=90 Normal or high G2 60-89 Mildly decreased* G3a 45-59 Mildly to moderately decreased G3b 30-44 Moderately to severely decreased G4 15-29 Severely decreased G5 <15 Kidney failure *Relative to young adult level. In the absence of evidence of kidney damage, neither GFR category G1 nor G2 fulfill the criteria for CKD. The CKD-EPI equation is validated in individuals 18 years of age and older. Currently the best equation for estimating glomerular filtration rate (GFR) from serum creatinine in children is the Bedside Syed equation. It is less accurate in patients with extremes of muscle mass, restriction of dietary protein, ingestion of creatine, extra-renal metabolism of creatinine, or treatment with medications that affect renal tubular creatinine secretion. Glucose [Mass/Vol] 111 mg/dL High 70 - 100 mg/dL [facility] Interpretation and review of laboratory results Abnormal [facility] Potassium [Moles/Vol] 4.7 mmol/L 3.5 - 5.1 mmol/L [facility] Comment on above: Slightly hemolysed, interpret with caution. Sodium [Moles/Vol] 133 mmol/L Low 135 - 145 mmol/L [facility] Urea nitrogen (BldV) [Mass/Vol] 22 mg/dL High 7 - 17 mg/dL [facility] CBCon 02-23-2022 Hematocrit (Bld) [Volume fraction] 46.0 % 40.0 - 52.0 % [facility] Hemoglobin.gastrointesti nal spec 1 Ql (Stl) 15.1 g/dL 13.0 - 18.0 g/dL [facility] Interpretation and review of laboratory results Abnormal [facility] MCH (RBC) [Entitic mass] 31.1 pg 26. 0 - 34.0 pg [facility] MCHC (RBC) [Mass/Vol] 32.9 % 32.0 - 36.0 % [facility] MCV (RBC) [Entitic vol] 94.4 fL 80.0 - 98.0 fL [facility] Platelet distribution width (Bld) [Ratio] 14.3 % 11.5 - 14.5 % [facility] Platelet mean volume (Bld) [Entitic vol] 9.6 fL 7.4 - 12.4 fL [facility] Comment on above: MPV is a calculated measurement using platelet volume ratio. Platelets (Bld) [#/Vol] 183 10*3/uL 140 - 440 10*3/uL [facility] RBC (Bld) [#/Vol] 4.88 10*6/uL 4.40 - 5.90 10*6/uL [facility] WBC (Bld) [#/Vol] 11.6 10*3/uL High 3.6 - 10.7 10*3/uL [facility] Test Performed by [facility], [address] [place] [id number] [facility] Hemogramon 02-23-2022 Erythrocyte distribution width (RBC) [Ratio] 14.3 % Normal 11.5-14.5 [facility] Comment on above: Performed By: #### Ronit Lawrence HEMOG, BMP3 #### [facility] [address] [place], [place] Hematocrit (Bld) [Volume fraction] 46.0 % Normal 40.0-52.0 [facility] Comment on above: Performed By: #### Ronit Lawrence HEMOG, BMP3 #### [place] [address] [address], [place] Hemoglobin (Bld) [Mass/Vol] 15.1 g/dL Normal 13.0-18.0 [facility] Comment on above: Performed By: #### Ronit Lawrence HEMOG, BMP3 #### [place] [address] [place], [place] MCH (RBC) [Entitic mass] 31.1 pg Normal 26.0-34.0 [facility] Comment on above: Performed By: #### Ronit Lawrence HEMOG, BMP3 #### [place] [address] [address] [place], [place] MCHC 32.9 % Normal 32.0-36.0 [facility] Comment on above: Performed By: #### Ronit Lawrence HEMOG, BMP3 #### [place] [address] [place], [place] MCV (RBC) [Entitic vol] 94.4 fL Normal 80.0-98.0 [facility] Comment on above: Performed By: #### Ronit Lawrence HEMOG, BMP3 #### [place] [address] [address], [place] Platelet mean volume (Bld) [Entitic vol] 9.6 fL Normal 7.4-12.4 [facility] Comment on above: Result Comment: MPV is a calculated measurement using platelet volume ratio. Performed By: #### Ronit Lawrence HEMOG, BMP3 #### [place] [address] [address] [place], [place] Platelets (Bld) [#/Vol] 183 10*3/uL Normal 140-440 [facility] Comment on above: Performed By: #### Ronit Lawrence HEMOG, BMP3 #### [address] RBC (Bld) [#/Vol] 4.88 10*6/uL Normal 4.40-5.90 [facility] Comment on above: Performed By: #### M G3, HEMOG, BMP3 #### [address] WBC (Bld) [#/Vol] 11.6 10*3/uL High 3.6-10.7 [facility] Comment on above: Performed By: #### M G3, HEMOG, BMP3 #### [address] Magnesiumon 02-23-2022 Magnesium [Mass/Vol] 1.8 mg/dL Normal 1.6-2.3 [facility] Comment on above: Result Comment: Slig htly hemolysed, interpret with caution. Performed By: #### M Howard HEMOG, BMP3 #### [place] [address] [place], [place] Magnesium [Mass/Vol] 1.8 mg/dL 1.6 - 2 .3 mg/dL [facility] Comment on above: Slightly hemolysed, interpret with caution. No Panel Informationon 02-23 Test Performed by [id number] [place] [address] LAB [facility] ACT,Whole Bloodon 02-22-2022 ACT,Whole Blood 148 s High 90-134 [facility] Comment on above: Result Comment: ACTB O Performed by [employer] ID: [id number] [place], [place] ACT testing is not intended for patients taking aprotonin, patients with hematocrits of <20% or >55%, patients using other types of anticoagulation medications, and patients with Lupus Anticoagulant. Performed By: #### A CTBO #### [address] ACT,Whole Blood 260 s High 90-134 [facility] Comment on above: Result Comment: ACTB O Performed by [employer] ID: [id number] [place], [place] ACT testing is not intended for patients taking aprotonin, patients with hematocrits of <20% or >55%, patients using other types of anticoagulation medications, and patients with Lupus Anticoagulant. Performed By: #### A CTBO #### [facility] [address] [place], [place] ACT,Whole Blood 267 s High 90-134 [facility] Comment on above: Result Comment: ACTB O Performed by [employer] ID: [id number] [place], [place] ACT testing is not intended for patients taking aprotonin, patients with hematocrits of <20% or >55%, patients using other types of anticoagulation medications, and patients with Lupus Anticoagulant. Performed By: #### A CTBO #### [facility] [address] [place], [place] ACT,Whole Blood 311 s High [address] [facility] Comment on above: Result Comment: ACTB O Performed by [employer] ID: [id number] [place], [place] ACT testing is not intended for patients taking aprotonin, patients with hematocrits of <20% or >55%, patients using other types of anticoagulation medications, and patients with Lupus Anticoagulant. Performed By: #### A CTBO #### [facility] [address] [place], [place] ACT,Whole Blood OutOfRange Critically abnormal 90-134 [facility] Comment on above: Result Comment: ACTB O Performed by [employer] ID: [id number] [place], [place] ACT testing is not intended for patients taking aprotonin, patients with hematocrits of <20% or >55%, patients using other types of anticoagulation medications, and patients with Lupus Anticoagulant. Performed By: #### A CTBO #### [facility] [address] [place], [place] ACT,Whole Blood 287 s High 90-134 [facility] Comment on above: Result Comment: ACTB O Performed by Hemochron Sig EliteCLIA ID: [id number] [place], [place] ACT testing is not intended for patients taking aprotonin, patients with hematocrits of <20% or >55%, patients using other types of anticoagulation medications, and patients with Lupus Anticoagulant. Performed By: #### A CTBO #### [facility] [address] [place] [address] ACT,Whole Blood 240 s High 90-134 [facility] Comment on above: Result Comment: ACTB O Performed by UserVoice Sig EliteCLIA ID: [id number] [place], [place] ACT testing is not intended for patients taking aprotonin, patients with hematocrits of <20% or >55%, patients using other types of anticoagulation medications, and patients with Lupus Anticoagulant. Performed By: #### M G3, HEMOG, BMP3 #### [facility] [address] [place] [address] ACT,Whole Blood 317 s High 90-134 [facility] Comment on above: Result Comment: ACTB O Performed by [employer] Compliance SystemsCLIA ID: [id number] [place], [place] ACT testing is not intended for patients taking aprotonin, patients with hematocrits of <20% or >55%, patients using other types of anticoagulation medications, and patients with Lupus Anticoagulant. Performed By: #### M G3, HEMOG, BMP3 #### [facility] [address] [place] [address] Activated clotting timeon Activated Clotting Time 311 s High 90 - 134 s [facility] Comment on above: ACTBO Performed by Zaggora EliteCLIA ID: [id number] [facility] [place] ACT testing is not intended for patients taking aprotonin, patients with hematocrits of <20% or >55%, patients using other types of anticoagulation medications, and patients with Lupus Anticoagulant. Activated Clotting Time 240 s High 90 - 134 s [facility] Comment on above: ACTBO Performed by Zaggora EliteCLIA ID: [id number] [facility] [place] ACT testing is not intended for patients taking aprotonin, patients with hematocrits of <20% or >55%, patients using other types of anticoagulation medications, and patients with Lupus Anticoagulant. Activated Clotting Time 267 s High 90 - 134 s [facility] Comment on above: ACTBO Performed by Hemochron Sig EliteCLIA ID: [id number] [facility] [place] ACT testing is not intended for patients taking aprotonin, patients with hematocrits of <20% or >55%, patients using other types of anticoagulation medications, and patients with Lupus Anticoagulant. Activated Clotting Time 317 s High 90 - 134 s [facility] Comment on above: ACTBO Performed by [employer] Technologyron Sig EliteCLIA ID: [id number] [facility] [place] ACT testing is not intended for patients taking aprotonin, patients with hematocrits of <20% or >55%, patients using other types of anticoagulation medications, and patients with Lupus Anticoagulant. Activated Clotting Time 260 s High 90 - 134 s [facility] Comment on above: ACTBO Performed by [employer] Kidstone Network Technologyron Sig EliteCLIA ID: [id number] [facility] [place] ACT testing is not intended for patients taking aprotonin, patients with hematocrits of <20% or >55%, patients using other types of anticoagulation medications, and patients with Lupus Anticoagulant. Activated Clotting Time 287 s High 90 - 134 s [facility] Comment on above: ACTBO Performed by UserVoice Sig MozCLIA ID: [id number] [place], [place] ACT testing is not intended for patients taking aprotonin, patients with hematocrits of <20% or >55%, patients using other types of anticoagulation medications, and patients with Lupus Anticoagulant. Activated Clotting Time OutOfRange Critical ly abnormal 90 - 134 s [facility] Comment on above: ACTBO Performed by Mr. NumberIA ID: [id number] [place], [place] ACT testing is not intended for patients taking aprotonin, patients with hematocrits of <20% or >55%, patients using other types of anticoagulation medications, and patients with Lupus Anticoagulant. Activated Clotting Time 148 s High 90 - 134 s [facility] Comment on above: ACTBO Performed by SafeT[employer] Compliance SystemsCLIA ID: [id number] [place], [place] ACT testing is not intended for patients taking aprotonin, patients with hematocrits of <20% or >55%, patients using other types of anticoagulation medications, and patients with Lupus Anticoagulant. EP NURSE PROCEDURE REPORTon 02-22-2022 Ordered by an unspec ified provider. [facility] No Panel Informationon 02-22 Interpretation and review of laboratory results Abnormal [facility] Test Performed by [facility], [address] [place] [id number] [place] [address] LAB [facility] Absolute lymphocyte counton 02-11-2022 Lymphocytes Auto (Unsp spec) [#/Vol] 1.78 10*3/uL 0.83-4.51 [facility] Work Phone: Basophil percentageon 2021 Basophils/100 WBC (Bld) 0.6 % 0-1 [facility] Work Phone: Bilirubin [Mass/Vol] 0.30 mg/dL 0.20-1.00 [facility] Work Phone: Comment on above: For patients on eltr ombopag therapy, use of Dimension Magness TBIL is not recommended. Chloride [Moles/Vol] 108 mmol/L 98-107 [facility] Work Phone: Cholesterol [Mass/Vol] 149 mg/dL <200 [facility] Work Phone: Comment on above: <200 mg/dL Desirable 200-240 mg/dL Borderline >240 mg/dL High Risk Eosinophils/100 WBC (Bld) 1.7 % 0-5 [facility] Work Phone: Glucose [Mass/Vol] 118 mg/dL 74-106 [facility] Work Phone: Comment on above: Fasting Glucose resu lt from 100 to 125 mg/dL suggests IMPAIRED HOMEOSTASIS per A.D.A. criteria. Neutrophils (Bld) [#/Vol] 6.4 10*3/uL 2.0-7.7 [facility] Work Phone: [phone] Neutrophils/100 WBC (Bld) 68.8 % 47-70 [facility] Work Phone: Potassium [Moles/Vol] 4.3 mmol/L 3.5-5.1 [facility] Work Phone: Protein [Mass/Vol] 7.3 g/dL 6.4-8.2 [facility] Work Phone: [phone] Sodium [Moles/Vol] 138 mmol/L 136-145 [facility] Work Phone: [phone] Triglyceride [Mass/Vol] 116 mg/dL <199 [facility] Work Phone: [phone] Comment on above: The drugs N-Acetylcy steine and Metamizole may falsely depress this assay.Serum Triglycerides Reference Interval Normal <150 mg/dL Borderline high 150 - 199 mg/dL High 200 - 499 mg/dL Very High > or = 500 mg/dL WBC (Bld) [#/Vol] 9.3 10*3/uL 4.4-11.0 [facility] Work Phone: [phone] Blood erythrocytes count (nu mber/volume)on 02-11-2022 RBC (Bld) [#/Vol] 5.03 10*6/uL 4.6-6.[address] [facility] Work Phone: [phone] Blood hemoglobin measurement (mass/volume)on 02-11-2022 Hemoglobin (Bld) [Mass/Vol] 15.5 g/dL 13.0-16.5 [facility] Work Phone: Blood lymphocytes/100 leukoc yteson 02-11-2022 Lymphocytes/100 WBC (Bld) 19.2 % 19-41 [facility] Work Phone: Blood monocytes/100 leukocyt eson 02-11-2022 Monocytes/100 WBC (Bld) 9.4 % 0-10 [facility] Work Phone: Blood platelet mean volumeon 02-11-2022 Platelet mean volume (Bld) [Entitic vol] 11.4 fL 6.2-12.0 [facility] Work Phone: [phone] Determination of erythrocyte mean corpuscular volume (MCV)on 02-11-2022 MCV (RBC) [Entitic vol] 92.4 fL 80-94 [facility] Work Phone: Hematocrit Auto (Bld) [Volum e fraction]on 02-11-2022 Hematocrit (Bld) [Volume fraction] 46.5 % 40-54 [facility] Work Phone: Laboratory - Chemistry and C hemistry - challengeon 02-11-2022 ALP [Catalytic activity/Vol] 84 U/L 45-117 [facility] Work Phone: ALT [Catalytic activity/Vol] 34 U/L 16-61 [facility] Work Phone: CO2 [Moles/Vol] 25.0 mmol/L 21.0-32.0 [facility] Work Phone: Globulin (S) [Mass/Vol] 3.7 g/dL 2.2-4.2 [facility] Work Phone: Magnesium [Mass/Vol] 2.0 mg/dL 1.6-2.6 [facility] Work Phone: Urea nitrogen/Creatinine [Mass ratio] 23.2 mg/mg 10-20 [facility] Work Phone: [phone] Laboratory - Hematology and Cell countson 02-11-2022 Erythrocyte distribution width (RBC) [Entitic vol] 46.7 fL 35.1-43.9 [facility] Work Phone: Erythrocyte distribution width (RBC) [Ratio] 13.8 % 11.6-14.6 [facility] Work Phone: Immature granulocytes/100 WBC (Bld) 0.300 % 0.0-0.9 [facility] Work Phone: [phone] Comment on above: IG% - Immature Granu locytes (promyelocytes, myelocytes and metamyelocytes) > 1% indicates that a LEFT SHIFT is Present. MCH (RBC) [Entitic mass] 30.8 pg 27.0-32.0 [facility] Work Phone: Nucleated RBC/100 WBC (Bld) [Ratio] 0 % 0-5 [facility] Work Phone: MCHC Auto (RBC) [Mass/Vol]on 02-11-2022 MCHC (RBC) [Mass/Vol] 33.3 g/dL 32-36 [facility] Work Phone: No Panel Informationon 02-11 Estimated GFR (MDRD) Amer 130 mL/min >60 [facility] Work Phone: Comment on above: GFR Calc Estimated GFR (MDRD) Non-Af Amer 108 mL/min >60 [facility] Work Phone: Comment on above: Non- GFR Calc Thyroid Stimulating Hormone (TSH) 2.81 uIU/mL 0.358-3.74 [facility] Work Phone: Platelets bldon 02-11-2022 Platelets (Bld) [#/Vol] 203 10*3/uL 150-450 [facility] Work Phone: Serum or plasma albumin amaya urement (mass/volume)on 02-11-2022 Albumin [Mass/Vol] 3.6 g/dL 3.2-5.0 [facility] Work Phone: Serum or plasma albumin/glob ulin mass ratioon 02-11-2022 Albumin/Globulin [Mass ratio] 1.0 {ratio} 0.9-2.4 [facility] Work Phone: Serum or plasma calcium amaya urement (mass/volume)on 02-11-2022 Calcium [Mass/Vol] 9.3 mg/dL 8.5-10.1 [facility] Work Phone: Serum or plasma cholesterol in HDL measurement (mass/volume)on 02-11-2022 Cholesterol in HDL [Mass/Vol] 49 mg/dL >40 [facility] Work Phone: Comment on above: The drugs N-Acetylcy steine and Metamizole may falsely depress this assay. Reference Range HDL <40 mg/dL Low HDL Cholesterol HDL >or= 60 mg/dL High HDL Cholesterol Serum or plasma cholesterol in VLDL measurement (mass/volume)on 02-11-2022 Cholesterol in VLDL [Mass/Vol] 23 mg/dL 5-40 [facility] Work Phone: Serum or plasma creatinine m easurement (mass/volume)on 02-11-2022 Creatinine [Mass/Vol] 0.78 mg/dL 0.70-1.30 [facility] Work Phone: Comment on above: The validity of the calculated GFR & GFRAA in patients over 70 years has not been determined. Clinical correlation is essential. Serum or plasma low density lipoprotein (LDL) cholesterol measurement (mass/volume)on 02-11-2022 Cholesterol in LDL [Mass/Vol] 77 mg/dL 0-130 [facility] Work Phone: Serum or plasma urea nitroge n measurement (mass/volume)on 02-11-2022 Urea nitrogen [Mass/Vol] 18 mg/dL 7-18 [facility] Work Phone: Thin prep Papanicolaou smear with manual screeningon 02-11-2022 Thin prep Papanicolaou smear with manual screening 13 U/L 15-37 [facility] Work Phone: Thin prep Papanicolaou smear with manual screening 5 5-15 [facility] Work Phone: Whole blood hemoglobin A1c/t otal hemoglobin ratio (mass fraction)on 02-11-2022 HbA1c (Bld) [Mass fraction] 7.4 % 3.8-5.6 [facility] Work Phone: Comment on above: Normal < 5.7 % Predi abetic 5.7 - 6.4 % Diabetic >or= 6.5 % Please note range changes. Absolute lymphocyte counton 11-12-2021 Lymphocytes Auto (Unsp spec) [#/Vol] 1.36 10*3/uL 0.83-4.51 [facility] Work Phone: Basophil percentageon 2021 Basophils/100 WBC (Bld) 0.7 % 0-1 [facility] Work Phone: Bilirubin [Mass/Vol] 0.30 mg/dL 0.20-1.00 [facility] Work Phone: Comment on above: For patients on eltr ombopag therapy, use of Dimension Magness TBIL is not recommended. Chloride [Moles/Vol] 106 mmol/L 98-107 [facility] Work Phone: Cholesterol [Mass/Vol] 128 mg/dL <200 [facility] Work Phone: Comment on above: <200 mg/dL Desirable 200-240 mg/dL Borderline >240 mg/dL High Risk Eosinophils/100 WBC (Bld) 2.0 % 0-5 [facility] Work Phone: Glucose [Mass/Vol] 118 mg/dL 74-106 [facility] Work Phone: Comment on above: Fasting Glucose resu lt from 100 to 125 mg/dL suggests IMPAIRED HOMEOSTASIS per A.D.A. criteria. Neutrophils (Bld) [#/Vol] 6.8 10*3/uL 2.0-7.7 [facility] Work Phone: Neutrophils/100 WBC (Bld) 73.1 % 47-70 [facility] Work Phone: Potassium [Moles/Vol] 4.3 mmol/L 3.5-5.1 [facility] Work Phone: Protein [Mass/Vol] 7.3 g/dL 6.4-8.2 [facility] Work Phone: Sodium [Moles/Vol] 137 mmol/L 136-145 [facility] Work Phone: Triglyceride [Mass/Vol] 140 mg/dL [facility] Work Phone: Comment on above: The drugs N-Acetylcy steine and Metamizole may falsely depress this assay.Serum Triglycerides Reference Interval Normal <150 mg/dL Borderline high 150 - 199 mg/dL High 200 - 499 mg/dL Very High > or = 500 mg/dL WBC (Bld) [#/Vol] 9.3 10*3/uL 4.4-11.0 [facility] Work Phone: Blood erythrocytes count (nu mber/volume)on 11-12-2021 RBC (Bld) [#/Vol] 4.94 10*6/uL 4.6-6.[address] [facility] Work Phone: Blood hemoglobin measurement (mass/volume)on 11-12-2021 Hemoglobin (Bld) [Mass/Vol] 15.3 g/dL 13.0-16.5 [facility] Work Phone: Blood lymphocytes/100 leukoc yteson 11-12-2021 Lymphocytes/100 WBC (Bld) 14.6 % 19-41 [facility] Work Phone: Blood monocytes/100 leukocyt eson 11-12-2021 Monocytes/100 WBC (Bld) 9.3 % 0-10 [facility] Work Phone: Blood platelet mean volumeon 11-12-2021 Platelet mean volume (Bld) [Entitic vol] 11.2 fL 6.2-12.0 [facility] Work Phone: [phone] Determination of erythrocyte mean corpuscular volume (MCV)on 11-12-2021 MCV (RBC) [Entitic vol] 92.9 fL 80-94 [facility] Work Phone: [phone] Hematocrit Auto (Bld) [Volum e fraction]on 11-12-2021 Hematocrit (Bld) [Volume fraction] 45.9 % 40-54 [facility] Work Phone: Laboratory - Chemistry and C hemistry - challengeon 11-12-2021 ALP [Catalytic activity/Vol] 93 U/L 45-117 [facility] Work Phone: ALT [Catalytic activity/Vol] 35 U/L 16-61 [facility] Work Phone: [phone] CO2 [Moles/Vol] 24.0 mmol/L 21.0-32.0 [facility] Work Phone: [phone] Globulin (S) [Mass/Vol] 3.7 g/dL 2.2-4.2 [facility] Work Phone: [phone] Urea nitrogen/Creatinine [Mass ratio] 30.8 mg/mg 10-20 [facility] Work Phone: [phone] Laboratory - Hematology and Cell countson 11-12-2021 Erythrocyte distribution width (RBC) [Entitic vol] 46.7 fL 35.1-43.9 [facility] Work Phone: Erythrocyte distribution width (RBC) [Ratio] 13.7 % 11.6-14.6 [facility] Work Phone: Immature granulocytes/100 WBC (Bld) 0.300 % 0.0-0.9 [facility] Work Phone: Comment on above: IG% - Immature Granu locytes (promyelocytes, myelocytes and metamyelocytes) > 1% indicates that a LEFT SHIFT is Present. MCH (RBC) [Entitic mass] 31.0 pg 27.0-32.0 [facility] Work Phone: Nucleated RBC/100 WBC (Bld) [Ratio] 0 % 0-5 [facility] Work Phone: MCHC Auto (RBC) [Mass/Vol]on 11-12-2021 MCHC (RBC) [Mass/Vol] 33.3 g/dL 32-36 [facility] Work Phone: No Panel Informationon 11-12 Estimated GFR (MDRD) Amer 136 mL/min >60 [facility] Work Phone: Comment on above: GFR Calc Estimated GFR (MDRD) Non-Af Amer 113 mL/min >60 [facility] Work Phone: Comment on above: Non- GFR Calc Prostate Specific Antigen Screen 0.22 ng/mL 0.00-4.00 [facility] Work Phone: Comment on above: This test was perfor med using the TPSA assay method for theYakazRaySat chemistry system. Values obtained with differentassay methods cannot be used interchangably.When changing PSA assays in the course of monitoring apatient, additional sequential testing should be carriedout to confirm baseline values. Thyroid Stimulating Hormone (TSH) 2.42 uIU/mL 0.358-3.74 [facility] Work Phone: Platelets bldon 11-12-2021 Platelets (Bld) [#/Vol] 184 10*3/uL 150-450 [facility] Work Phone: Serum or plasma albumin amaya urement (mass/volume)on 11-12-2021 Albumin [Mass/Vol] 3.6 g/dL 3.2-5.0 [facility] Work Phone: Serum or plasma albumin/glob ulin mass ratioon 11-12-2021 Albumin/Globulin [Mass ratio] 1.0 {ratio} 0.9-2.4 [facility] Work Phone: Serum or plasma calcium amaya urement (mass/volume)on 11-12-2021 Calcium [Mass/Vol] 9.2 mg/dL 8.5-10.1 [facility] Work Phone: Serum or plasma cholesterol in HDL measurement (mass/volume)on 11-12-2021 Cholesterol in HDL [Mass/Vol] 44 mg/dL [facility] Work Phone: Comment on above: The drugs N-Acetylcy steine and Metamizole may falsely depress this assay. Reference Range HDL <40 mg/dL Low HDL Cholesterol HDL >or= 60 mg/dL High HDL Cholesterol Serum or plasma cholesterol in VLDL measurement (mass/volume)on 11-12-2021 Cholesterol in VLDL [Mass/Vol] 28 mg/dL 5-40 [facility] Work Phone: Serum or plasma creatinine m easurement (mass/volume)on 11-12-2021 Creatinine [Mass/Vol] 0.75 mg/dL 0.70-1.30 [facility] Work Phone: Comment on above: The validity of the calculated GFR & GFRAA in patients over 70 years has not been determined. Clinical correlation is essential. Serum or plasma low density lipoprotein (LDL) cholesterol measurement (mass/volume)on 11-12-2021 Cholesterol in LDL [Mass/Vol] 56 mg/dL 0-130 [facility] Work Phone: Serum or plasma urea nitroge n measurement (mass/volume)on 11-12-2021 Urea nitrogen [Mass/Vol] 23 mg/dL 7-18 [facility] Work Phone: Thin prep Papanicolaou smear with manual screeningon 11-12-2021 Thin prep Papanicolaou smear with manual screening 20 U/L 15-37 [facility] Work Phone: Thin prep Papanicolaou smear with manual screening 7 5-15 [facility] Work Phone: Whole blood hemoglobin A1c/t otal hemoglobin ratio (mass fraction)on 11-12-2021 HbA1c (Bld) [Mass fraction] 7.3 % 3.8-5.6 [facility] Work Phone: Comment on above: Normal < 5.7 % Predi abetic 5.7 - 6.4 % Diabetic >or= 6.5 % Please note range changes. Echo 2D Doppler Coloron 11-24 TRANSTHORACIC ECHOCARDIOGRAM PATIENT: Frank Zimmer STUDY DATE: 12/06/2019 : 1960 AGE: 59 HT/WT: 195.6 cm (77 114.3 kg in) (251.5 lb) GENDER: M BP: 116 / 60 LOCATION: [facility] PAT[facility] Out[facility] STATUS: Pavilion *READING PHYSICIAN: Elena Cash *IN PROCESSING INSTRUCTOR: Elena Galloway DO, FSVM, [facility] RDCS, AE INDICATIONS: Pericardial effusion (I31.3). CONCLUSIONS SUMMARY: 1. Left ventricle: Systolic function is mildly decreased by visual assessment. The estimated ejection fraction is 45%. 2. Right ventricle: Pacer wire noted in the right ventricle. Systolic function is normal. Right ventricular systolic pressure is within the normal range. 3. Aorta: The aorta is normal. 4. No significant valve disease. 5. Pericardium, extracardiac: There is no pericardial effusion. STUDY DATA: Complete transthoracic echocardiogram. Procedure: Image quality was suboptimal. Intravenous imaging enhancement (Definity) was administered. Definity lot #: [id number]. M-mode, complete 2D, complete spectral Doppler, and color flow Doppler images were acquired and archived for permanent storage and are available for subsequent review. Study status: Routine. Patient status: Outpatient. FINDINGS LEFT VENTRICLE: The cavity size is moderately dilated. Wall thickness is moderately increased. Systolic function is mildly decreased by visual assessment. The estimated ejection fraction is 45%. There are no regional wall motion abnormalities. RIGHT VENTRICLE: The cavity size is normal. Pacer wire noted in the right ventricle. Systolic function is normal. Right ventricular systolic pressure is within the normal range. VENTRICULAR SEPTUM: Abnormal septal motion due to right ventricular pacing. There is no evidence of a ventricular septal defect. LEFT ATRIUM: The atrium is normal in size. RIGHT ATRIUM: The atrium is normal in size. Pacer wire noted in right atrium. ATRIAL SEPTUM: Color Doppler shows no shunt. MITRAL VALVE: Structurally normal valve. Doppler: There is no regurgitation. AORTIC VALVE: Trileaflet; mildly thickened leaflets. Doppler: There is no regurgitation. The peak systolic gradient is 10 mm Hg. The peak systolic velocity is 1.5 m/sec. TRICUSPID VALVE: Structurally normal valve. Doppler: There is trivial, less than 1+ regurgitation. PULMONIC VALVE: Structurally normal valve. Doppler: There is trivial, less than 1+ regurgitation. AORTA: The aorta is normal. PULMONARY ARTERY: Main pulmonary artery: Normal. PERICARDIUM: There is no pericardial effusion. SYSTEMIC VEINS: Inferior vena cava: The vessel is normal. The IVC collapses by greater than 50% with inspiration. Measurements Value 11/26/2019 Reference Aortic root ID 3.8 cm 3.8 <4.5 Aortic root ID, STJ, ED 3.3 cm 3.3 2.3 - 3.5 Aortic root ID/bsa, STJ, ED 1.3 cm/m^2 1.3 1.1 - 1.9 Value 11/26/2019 Reference Ascending aorta ID, A-P, S 3.2 cm 3.9 Ascending aorta ID/bsa, 1.3 cm/m^2 1.5 A-P, S Left ventricle Value 11/26/2019 Reference LV ID, ED 5.6 cm 5.6 4.2 - 5.8 LV ID, ES (H) 4.6 cm 4.4 2.5 - 4.0 LV ID/bsa, ED 2.2 cm/m^2 2.2 2.2 - 3.0 LV ID/bsa, ES 1.8 cm/m^2 1.7 1.3 - 2.1 LV PW thickness, ED (H) 1.7 cm 1.3 0.6 - 1.0 LV PW/LV ID ratio, ED 0.31 0.22 LV wall mass (H) 427 g 322 96 - 200 LV wall mass/bsa (H) 170 g/m^2 126 50 - 102 Stroke volume/bsa, 1-p A2C 42 ml/m^2 19.4 LV end-diastolic volume, (H) 196 ml 146 69 - 185 1-p A4C LV end-systolic volume, 1-p (H) 107 ml 73 22 - 78 A4C LV end-diastolic volume, (H) 190 ml 131 62 - 150 2-p LV end-systolic volume, 2-p (H) 95 ml 69 21 - 61 LV ejection fraction, 2-p (L) 45 % 47 52 - 72 LV E/e', lateral 9.6 5.6 LV E/e', medial 10.1 11 LV E/e', average 9.8 6.1 Ventricular septum Value 11/26/2019 Reference IVS thickness, ED (H) 1.5 cm 1.4 0.6 - 1.0 LVOT Value 11/26/2019 Reference LVOT ID, A-P 2.6 cm 2.4 LVOT mean velocity, S 0.7 m/sec 0.6 LVOT peak gradient, S 4 mm Hg 3 Stroke volume (SV), LVOT DP 99 ml 62 Stroke index (SV/bsa), LVOT 39 ml/m^2 24 DP Aortic valve Value 11/26/2019 Reference Aortic valve peak velocity, 1.5 m/sec 1.2 S Aortic peak gradient, S 10 mm Hg 6 Left atrium Value 11/26/2019 Reference LA volume/bsa, ES, 2-p 34 ml/m^2 16 16 - 34 Mitral valve Value 11/26/2019 Reference Mitral E-wave peak velocity 0.6 m/sec 0.5 Mitral A-wave peak velocity 0.6 m/sec 0.4 Mitral deceleration time 261 ms 243 Mitral E/A ratio, peak 1.0 1.3 Pulmonary arteries Value 11/26/2019 Reference PA pressure, S, DP 28 mm Hg 12 Tricuspid valve Value 11/26/2019 Reference Tricuspid regurg peak 2.5 m/sec 1 <=2.8 velocity Tricuspid peak RV-RA 25 mm Hg 4 gradient Right atrium Value 11/26/2019 Reference RA area, ES, A4C 15 cm^2 15 10 - 18 Systemic veins Value 11/26/2019 Reference Estimated RAP 3 mm Hg 8 Right ventricle Value 11/26/2019 Reference RV ID, minor axis, ED, A4C 3.6 cm 3.2 2.5 - 4.1 base RV ID, minor axis, ED, A4C 3.0 cm 3.3 1.9 - 3.5 mid TAPSE, 2D 2.5 cm 2.3 1.7 - 3.1 RV pressure, S, DP 28 mm Hg 12 RV s', lateral (H) 18.1 cm/sec 11.4 6.0 - 13.4 Legend: (L) and (H) [place] values outside specified reference range. Electronically signed by Shailesh Galloway DO, FSVM, FACC 12/06/2019 15:16 Prior Signatures: [employer] Work Phone: [facility], [employer] Incoming Cardiology [facility] - 12/06/2019 3:17 PM EST TRANSTHORACIC ECHOCARDIOGRAM PATIENT: Frank Zimmer STUDY DATE: 12/06/2019 : 1960 AGE: 59 HT/WT: 195.6 cm (77 114.3 kg in) (251.5 lb) GENDER: M BP: 116 / 60 LOCATION: [facility] [employer] [facility] PATIENT Outpatient Javon Rahman STATUS: Pavilion *READING PHYSICIAN: * Shailesh *IN PROCESSING INSTRUCTOR: * Staci Galloway DO, FSVM, FACC RDCS, AE INDICATIONS: Pericardial effusion (I31.3). CONCLUSIONS SUMMARY: 1. Left ventricle: Systolic function is mildly decreased by visual assessment. The estimated ejection fraction is 45%. 2. Right ventricle: Pacer wire noted in the right ventricle. Systolic function is normal. Right ventricular systolic pressure is within the normal range. 3. Aorta: The aorta is normal. 4. No significant valve disease. 5. Pericardium, extracardiac: There is no pericardial effusion. STUDY DATA: Complete transthoracic echocardiogram. Procedure: Image quality was suboptimal. Intravenous imaging enhancement (Definity) was administered. Definity lot #: [id number]. M-mode, complete 2D, complete spectral Doppler, and color flow Doppler images were acquired and archived for permanent storage and are available for subsequent review. Study status: Routine. Patient status: Outpatient. FINDINGS LEFT VENTRICLE: The cavity size is moderately dilated. Wall thickness is moderately increased. Systolic function is mildly decreased by visual assessment. The estimated ejection fraction is 45%. There are no regional wall motion abnormalities. RIGHT VENTRICLE: The cavity size is normal. Pacer wire noted in the right ventricle. Systolic function is normal. Right ventricular systolic pressure is within the normal range. VENTRICULAR SEPTUM: Abnormal septal motion due to right ventricular pacing. There is no evidence of a ventricular septal defect. LEFT ATRIUM: The atrium is normal in size. RIGHT ATRIUM: The atrium is normal in size. Pacer wire noted in right atrium. ATRIAL SEPTUM: Color Doppler shows no shunt. MITRAL VALVE: Structurally normal valve. Doppler: There is no regurgitation. AORTIC VALVE: Trileaflet; mildly thickened leaflets. Doppler: There is no regurgitation. The peak systolic gradient is 10 mm Hg. The peak systolic velocity is 1.5 m/sec. TRICUSPID VALVE: Structurally normal valve. Doppler: There is trivial, less than 1+ regurgitation. PULMONIC VALVE: Structurally normal valve. Doppler: There is trivial, less than 1+ regurgitation. AORTA: The aorta is normal. PULMONARY ARTERY: Main pulmonary artery: Normal. PERICARDIUM: There is no pericardial effusion. SYSTEMIC VEINS: Inferior vena cava: The vessel is normal. The IVC collapses by greater than 50% with inspiration. Measurements Value 11/26/2019 Reference Aortic root ID 3.8 cm 3.8 <4.5 Aortic root ID, STJ, ED 3.3 cm 3.3 2.3 - 3.5 Aortic root ID/bsa, STJ, ED 1.3 cm/m^2 1.3 1.1 - 1.9 Value 11/26/2019 Reference Ascending aorta ID, A-P, S 3.2 cm 3.9 Ascending aorta ID/bsa, 1.3 cm/m^2 1.5 A-P, S Left ventricle Value 11/26/2019 Reference LV ID, ED 5.6 cm 5.6 4.2 - 5.8 LV ID, ES (H) 4.6 cm 4.4 2.5 - 4.0 LV ID/bsa, ED 2.2 cm/m^2 2.2 2.2 - 3.0 LV ID/bsa, ES 1.8 cm/m^2 1.7 1.3 - 2.1 LV PW thickness, ED (H) 1.7 cm 1.3 0.6 - 1.0 LV PW/LV ID ratio, ED 0.31 0.22 LV wall mass (H) 427 g 322 96 - 200 LV wall mass/bsa (H) 170 g/m^2 126 50 - 102 Stroke volume/bsa, 1-p A2C 42 ml/m^2 19.4 LV end-diastolic volume, (H) 196 ml 146 69 - 185 1-p A4C LV end-systolic volume, 1-p (H) 107 ml 73 22 - 78 A4C LV end-diastolic volume, (H) 190 ml 131 62 - 150 2-p LV end-systolic volume, 2-p (H) 95 ml 69 21 - 61 LV ejection fraction, 2-p (L) 45 % 47 52 - 72 LV E/e', lateral 9.6 5.6 LV E/e', medial 10.1 11 LV E/e', average 9.8 6.1 Ventricular septum Value 11/26/2019 Reference IVS thickness, ED (H) 1.5 cm 1.4 0.6 - 1.0 LVOT Value 11/26/2019 Reference LVOT ID, A-P 2.6 cm 2.4 LVOT mean velocity, S 0.7 m/sec 0.6 LVOT peak gradient, S 4 mm Hg 3 Stroke volume (SV), LVOT DP 99 ml 62 Stroke index (SV/bsa), LVOT 39 ml/m^2 24 DP Aortic valve Value 11/26/2019 Reference Aortic valve peak velocity, 1.5 m/sec 1.2 S Aortic peak gradient, S 10 mm Hg 6 Left atrium Value 11/26/2019 Reference LA volume/bsa, ES, 2-p 34 ml/m^2 16 16 - 34 Mitral valve Value 11/26/2019 Reference Mitral E-wave peak velocity 0.6 m/sec 0.5 Mitral A-wave peak velocity 0.6 m/sec 0.4 Mitral deceleration time 261 ms 243 Mitral E/A ratio, peak 1.0 1.3 Pulmonary arteries Value 11/26/2019 Reference PA pressure, S, DP 28 mm Hg 12 Tricuspid valve Value 11/26/2019 Reference Tricuspid regurg peak 2.5 m/sec 1 <=2.8 velocity Tricuspid peak RV-RA 25 mm Hg 4 gradient Right atrium Value 11/26/2019 Reference RA area, ES, A4C 15 cm^2 15 10 - 18 Systemic veins Value 11/26/2019 Reference Estimated RAP 3 mm Hg 8 Right ventricle Value 11/26/2019 Reference RV ID, minor axis, ED, A4C 3.6 cm 3.2 2.5 - 4.1 base RV ID, minor axis, ED, A4C 3.0 cm 3.3 1.9 - 3.5 mid TAPSE, 2D 2.5 cm 2.3 1.7 - 3.1 RV pressure, S, DP 28 mm Hg 12 RV s', lateral (H) 18.1 cm/sec 11.4 6.0 - 13.4 Legend: (L) and (H) camden values outside specified reference range. Electronically signed by Shailesh Galloway DO, FS, [facility] 12/06/2019 15:16 Prior Signatures: [facility] Work Phone: Basic Metabolic PanelOrdered By: Saumya Cruz on 11-20-2019 Anion gap [Moles/Vol] 9 mmol/L [facility] Work Phone: Calcium [Mass/Vol] 9.1 mg/dL 8.4 - 10. 4 mg/dL [facility] Work Phone: Chloride [Moles/Vol] 106 mmol/L 98 - 10 7 mmol/L [facility] Work Phone: CO2 [Moles/Vol] 22 mmol/L 22 - 30 mmol/L [facility] Work Phone: Creatinine [Mass/Vol] 0.71 mg/dL 0.52 - 1.25 mg/dL [employer] Work Phone: [phone] EGFR IF NonAfrican Tunisian >60.0 >60 mL/min [facility] Work Phone: [phone] Comment on above: Source- MDRD equatio n with creatinine calibration to IDMS(NKDEP) eGFR not recommended for drug dose adjustment GFR/1.73 sq M.predicted among blacks MDRD (S/P/Bld) [Vol rate/Area] mL/min/{1.73_m2} >60 mL/min [facility] Work Phone: [phone] Glucose [Mass/Vol] 165 mg/dL High 70 - 100 mg/dL [facility] Work Phone: [phone] Interpretation and review of laboratory results Abnormal [employer] Work Phone: [phone] Potassium [Moles/Vol] 4.3 mmol/L 3.5 - 5.1 mmol/L [facility] Work Phone: [phone] Sodium [Moles/Vol] 138 mmol/L 135 - 145 mmol/L [facility] Work Phone: [phone] Urea nitrogen [Mass/Vol] 21 mg/dL High 7 - 20 mg/dL [facility] Work Phone: [phone] Brain Natriuretic PeptideOrd ered By: Saumya Cruz on 11-20-2019 Interpretation and review of laboratory results Abnormal [employer] Work Phone: [phone] Natriuretic peptide B (Bld) [Mass/Vol] 1108 pg/mL High 0 - 125 pg/mL [employer] Work Phone: [phone] Test Performed by [address] [address] [employer] Work Phone: [phone] CBCOrdered By: Saumya Cruz on 11-20-2019 Erythrocyte distribution width (RBC) [Ratio] 13.4 % 11.5 - 14.5 % [employer] Work Phone: [phone] Hematocrit (Bld) [Volume fraction] 39.9 % Low 40 - 52 % [facility] Work Phone: [phone] Hemoglobin (Bld) [Mass/Vol] 13.5 g/dL 13 - 18 g/dL [facility] Work Phone: Interpretation and review of laboratory results Abnormal [facility] Work Phone: MCH (RBC) [Entitic mass] 31.6 pg 26 - 34 pg [facility] Work Phone: MCHC 33.8 % 32 - 36 % [facility] Work Phone: MCV (RBC) [Entitic vol] 93.5 fL 80 - 98 fL S [facility] Work Phone: Platelet mean volume (Bld) [Entitic vol] 10.1 fL 7.4 - 10.4 fL [facility] Work Phone: Platelets (Bld) [#/Vol] 174 10*3/uL 140 - 440 10*3/uL [facility] Work Phone: RBC (Bld) [#/Vol] 4.27 10*6/uL Low 4.4 - 5.9 10*6/uL [facility] Work Phone: WBC (Bld) [#/Vol] 15.4 10*3/uL High 3.6 - 10.7 10*3/uL [facility] Work Phone: Test Performed by [facility], [address] [place] [id number] [place], [place] [address] Minutes Work Phone: EKG 12 LeadOrdered By: Kei Zarate on 11-20-2019 [facility] [employer] Test Date: 2019-11-19 Pat Name: Frank Zimmer Department: [facility] Room: [facility] Gender: M Cardiac Cath Tech: [facility] : 1960 Requested By: FALGUNI ZARATE Order Number: [id number] Reading MD: Viry Montoya Measurements Intervals [place] Rate: 81 P: 74 ND: 139 QRS: 268 QRSD: 156 T: -15 QT: 457 QTc: 531 Interpretive Statements Atrial-sensed ventricular-paced rhythm SHORT AV INTERVAL Electronically Signed On 11-20-2019 8:59:15 EST by Viry Montoya [facility] Minutes Work Phone: Alfonso, [facility] Incoming Cardiology Results From [facility] - 11/20/2019 9:00 AM EST [employer] Test Date: 2019-11-19 Pat Name: Frank Zimmer Department: [facility] Room: [facility] Gender: M Cardiac Cath Tech: [facility] : 1960 Requested By: FALGUNI ZARATE Order Number: [id number] Reading MD: Viry Montoya Measurements Intervals [place] Rate: 81 P: 74 ND: 139 QRS: 268 QRSD: 156 T: -15 QT: 457 QTc: 531 Interpretive Statements Atrial-sensed ventricular-paced rhythm SHORT AV INTERVAL Electronically Signed On 11-20-2019 8:59:15 EST by Viry Montoya [employer] Work Phone: MagnesiumOrdered By: Saumya morales on 11-20-2019 Magnesium [Mass/Vol] 1.9 mg/dL 1.6 - 2 .3 mg/dL [employer] Work Phone: No Panel InformationOrdered By: Saumya Cruz on 11-20-2019 Test Performed by [facility], [place] [address] [employer] Work Phone: POCT GlucoseOrdered By: Yemi Hinds on 11-20-2019 Glucose [Mass/Vol] 157 mg/dL High 70 - 100 mg/dL [employer] Work Phone: Comment on above: Test performed by [employer] ucose meter. Results may be 10%-15% lower than serum/plasma values. (CLIA ID [id number]) Interpretation and review of laboratory results Abnormal [employer] Work Phone: Test Performed by [facility], [place] [address] [employer] Work Phone: ProcalcitoninOrdered By: Patience Cruz on 11-20-2019 Interpretation See Below [employer] Work Phone: Comment on above: PCT <0.50 = Low risk of severe sepsis and/or septic shock. PCT >2.00 = High risk of severe sepsis and/or septic shock. Procalcitonin <0.10 <0.10 ng/mL [employer] Work Phone: Test Performed by [facility], [address] [place] [address] [facility] Work Phone: XR CHEST STANDARD (2 VW)Orde red By: Lenora Jones on 11-20-2019 Patient Name: FRANK ZIMMER ---Diagnostic Radiology--- Exam Date/Time 11/20/2019 08:30:00 EST Exam CR Chest PA/LAT Ordering Physician MD JONES LORI Accession Number [id number] CPT4 Codes 18031 () Reason For Exam Post Device implant, please overpenetrate films Report HISTORY: Status post device placement Frontal and lateral views of the chest were obtained. Comparisons available: 11/17/2019 FINDINGS: There has been interval placement of a left subclavian 3-lead ICD. Leads are seen in the right ventricle, right atrium, and in the coronary sinus. No radiographic abnormality is identified in the device. The lungs are clear without pleural effusion pneumothorax. Cardiomediastinal silhouette is unchanged as well. Pulmonary vasculature is normal. IMPRESSION: Status post left subclavian 3-lead ICD. No acute complications are appreciated. Report Dictated on --- Final --- Dictated: 11/20/2019 9:03 am Dictating Physician: MD ZHOU TOM A Signed Date and Time: 11/20/2019 9:08 am Signed by: MD ZHOU TOM A Transcribed Date and Time: 11/20/2019 9:03 [facility] Work Phone: [employer] Incoming Radiology Results From [facility] - 11/20/2019 9:09 AM EST Patient Name: FRANK ZIMMER ---Diagnostic Radiology--- Exam Date/Time 11/20/2019 08:30:00 EST Exam CR Chest PA/LAT Ordering Physician MD JONES LORI Accession Number [id number] CPT4 Codes 97766 () Reason For Exam Post Device implant, please overpenetrate films Report HISTORY: Status post device placement Frontal and lateral views of the chest were obtained. Comparisons available: 11/17/2019 FINDINGS: There has been interval placement of a left subclavian 3-lead ICD. Leads are seen in the right ventricle, right atrium, and in the coronary sinus. No radiographic abnormality is identified in the device. The lungs are clear without pleural effusion pneumothorax. Cardiomediastinal silhouette is unchanged as well. Pulmonary vasculature is normal. IMPRESSION: Status post left subclavian 3-lead ICD. No acute complications are appreciated. Report Dictated on --- Final --- Dictated: 11/20/2019 9:03 am Dictating Physician: MD ZHOU TOM A Signed Date and Time: 11/20/2019 9:08 am Signed by: MD ZHOU TOM A Transcribed Date and Time: 11/20/2019 9:03 [facility] Work Phone: Basic Metabolic PanelOrdered By: Saumya Cruz on 11-19-2019 Anion gap [Moles/Vol] 6 mmol/L [facility] Work Phone: Calcium [Mass/Vol] 8.7 mg/dL 8.4 - 10. 4 mg/dL [facility] Work Phone: Chloride [Moles/Vol] 106 mmol/L 98 - 10 7 mmol/L [facility] Work Phone: CO2 [Moles/Vol] 24 mmol/L 22 - 30 mmol/L [facility] Work Phone: Creatinine [Mass/Vol] 0.68 mg/dL 0.52 - 1.25 mg/dL [facility] Work Phone: EGFR IF NonAfrican Tunisian >60.0 >60 mL/min [facility] Work Phone: Comment on above: Source- MDRD equatio n with creatinine calibration to IDMS(NKDEP) eGFR not recommended for drug dose adjustment GFR/1.73 sq M.predicted among blacks MDRD (S/P/Bld) [Vol rate/Area] mL/min/{1.73_m2} >60 mL/min [facility] Work Phone: Glucose [Mass/Vol] 123 mg/dL High 70 - 100 mg/dL [facility] Work Phone: Interpretation and review of laboratory results Abnormal [facility] Work Phone: Potassium [Moles/Vol] 4.5 mmol/L 3.5 - 5.1 mmol/L [facility] Work Phone: [phone] Comment on above: Slightly hemolysed, interpret with caution. Sodium [Moles/Vol] 135 mmol/L 135 - 145 mmol/L [facility] Work Phone: [phone] Urea nitrogen [Mass/Vol] 17 mg/dL 7 - 20 mg/dL [facility] Work Phone: [phone] CBCOrdered By: Saumya Cruz on 11-19-2019 Erythrocyte distribution width (RBC) [Ratio] 13.4 % 11.5 - 14.5 % [facility] Work Phone: [phone] Hematocrit (Bld) [Volume fraction] 38.4 % Low 40 - 52 % [facility] Work Phone: [phone] Hemoglobin (Bld) [Mass/Vol] 13.4 g/dL 13 - 18 g/dL [facility] Work Phone: [phone] Interpretation and review of laboratory results Abnormal [facility] Work Phone: [phone] MCH (RBC) [Entitic mass] 32.6 pg 26 - 34 pg [facility] Work Phone: [phone] MCHC 34.9 % 32 - 36 % [facility] Work Phone: [phone] MCV (RBC) [Entitic vol] 93.5 fL 80 - 98 fL S [facility] Work Phone: [phone] Platelet mean volume (Bld) [Entitic vol] 10.4 fL 7.4 - 10.4 fL [facility] Work Phone: [phone] Platelets (Bld) [#/Vol] 180 10*3/uL 140 - 440 10*3/uL [facility] Work Phone: [phone] RBC (Bld) [#/Vol] 4.11 10*6/uL Low 4.4 - 5.9 10*6/uL [facility] Work Phone: [phone] WBC (Bld) [#/Vol] 10.3 10*3/uL 3.6 - 10.7 10*3/uL [facility] Work Phone: [phone] Test Performed by [facility], [address] [place] [address] [employer] Work Phone: EKG 12 LeadOrdered By: Kei Zarate on 11-19-2019 [facility] [employer] Test Date: 2019-11-19 Pat Name: Frank Zimmer Department: [facility] Room: [facility] Gender: M Cardiac Cath Tech: KRISTA : 1960 Requested By: FALGUNI ZARATE Order Number: [id number] Reading : Viry Montoya Measurements Intervals [place] Rate: 53 P: 26 ND: 275 QRS: -58 QRSD: 157 T: 38 QT: 482 QTc: 453 Interpretive Statements Sinus bradycardia Prolonged ND interval LVH WITH IVCD, LAD AND SECONDARY REPOL ABNRM Electronically Signed On 11-19-2019 10:17:09 EST by Viry TIMMONS Work Phone: [facility], [facility] Incoming Cardiology [facility] - 11/19/2019 10:18 AM EST [facility] Date: 2019-11-19 Pat Name: Frank [facility]immer [facility] Gender: M Cardiac Cath Tech: KRISTA : 1960 Requested By: FALGUNI ZARATE Order Number: [id number] Reading ALEENA Montoya Measurements Intervals [place] Rate: 53 P: 26 ND: 275 QRS: -58 QRSD: 157 T: 38 QT: 482 QTc: 453 Interpretive Statements Sinus bradycardia Prolonged ND interval LVH WITH IVCD, LAD AND SECONDARY REPOL ABNRM Electronically Signed On 11-19-2019 10:17:09 EST by Viry Montoya [employer] Work Phone: MagnesiumOrdered By: Saumya morales on 11-19-2019 Magnesium [Mass/Vol] 1.8 mg/dL 1.6 - 2 .3 mg/dL [employer] Work Phone: Comment on above: Slightly hemolysed, interpret with caution. No Panel InformationOrdered By: Saumya Cruz on 11-19-2019 Test Performed by [facility], [address] [place] [address] [facility] Work Phone: POCT GlucoseOrdered By: Yemi Hinds on 11-19-2019 Glucose [Mass/Vol] 182 mg/dL High 70 - 100 mg/dL [facility] Work Phone: Comment on above: Test performed by gl ucose meter. Results may be 10%-15% lower than serum/plasma values. (CLIA ID [id number]) Interpretation and review of laboratory results Abnormal [facility] Work Phone: Test Performed by [address] [address] [facility] Work Phone: Basic Metabolic PanelOrdered By: Saumya Cruz on 11-18-2019 Anion gap [Moles/Vol] 8 mmol/L [facility] Work Phone: Calcium [Mass/Vol] 8.9 mg/dL 8.4 - 10. 4 mg/dL [facility] Work Phone: [phone] Chloride [Moles/Vol] 104 mmol/L 98 - 10 7 mmol/L [facility] Work Phone: [phone] CO2 [Moles/Vol] 25 mmol/L 22 - 30 mmol/L [facility] Work Phone: Creatinine [Mass/Vol] 0.81 mg/dL 0.52 - 1.25 mg/dL [facility] Work Phone: EGFR IF NonAfrican Tunisian >60.0 >60 mL/min [facility] Work Phone: Comment on above: Source- MDRD equatio n with creatinine calibration to IDMS(NKDEP) eGFR not recommended for drug dose adjustment GFR/1.73 sq M.predicted among blacks MDRD (S/P/Bld) [Vol rate/Area] mL/min/{1.73_m2} >60 mL/min [facility] Work Phone: Glucose [Mass/Vol] 183 mg/dL High 70 - 100 mg/dL [facility] Work Phone: Potassium [Moles/Vol] 3.9 mmol/L 3.5 - 5.1 mmol/L [facility] Work Phone: Comment on above: Slightly hemolysed, interpret with caution. Sodium [Moles/Vol] 137 mmol/L 135 - 145 mmol/L [facility] Minutes Work Phone: Urea nitrogen [Mass/Vol] 16 mg/dL 7 - 20 mg/dL [facility] Work Phone: [phone] CBCOrdered By: Saumya Cruz on 11-18-2019 Erythrocyte distribution width (RBC) [Ratio] 13.6 % 11.5 - 14.5 % [facility] Work Phone: [phone] Hematocrit (Bld) [Volume fraction] 40.5 % 40 - 52 % [facility] Work Phone: [phone] Hemoglobin (Bld) [Mass/Vol] 13.9 g/dL 13 - 18 g/dL [facility] Work Phone: [phone] MCH (RBC) [Entitic mass] 32.3 pg 26 - 34 pg [facility] Minutes Work Phone: [phone] MCHC 34.3 % 32 - 36 % [facility] Minutes Work Phone: [phone] MCV (RBC) [Entitic vol] 94.1 fL 80 - 98 fL [facility] Work Phone: [phone] Platelet mean volume (Bld) [Entitic vol] 10.4 fL 7.4 - 10.4 fL [facility] Minutes Work Phone: [phone] Platelets (Bld) [#/Vol] 167 10*3/uL 140 - 440 10*3/uL [facility] Minutes Work Phone: [phone] RBC (Bld) [#/Vol] 4.30 10*6/uL Low 4.4 - 5.9 10*6/uL [facility] Minutes Work Phone: [phone] WBC (Bld) [#/Vol] 9.9 10*3/uL 3.6 - 10.7 10*3/uL [employer] Work Phone: [phone] EKG 12 LeadOrdered By: Saumya Cruz on 11-18-2019 [employer] Test Date: 2019-11-17 Pat Name: Frank Zimmer Department: [facility] Room: [facility] Gender: M Cardiac Cath Tech: MARLIN : 1960 Requested By: SAUMYA CRUZ Order Number: [id number] Reading MD: Buster Draper Measurements Intervals [place] Rate: 48 P: -10 ND: 268 QRS: -61 QRSD: 158 T: 44 QT: 463 QTc: 414 Interpretive Statements Sinus bradycardia Prolonged ND interval Left bundle branch block Compared to ECG 11/16/2019 23:19:57 No significant changes Electronically Signed On 11-18-2019 11:23:11 EST by Buster Draper [employer] Work Phone: Alfonso, [facility] Incoming Cardiology Results From [facility] - 11/18/2019 11:24 AM EST [facility] [employer] Test Date: 2019-11-17 Pat Name: Frank Zimmer Department: [facility] Room: [facility] Gender: M Cardiac Cath Tech: MARLIN : 1960 Requested By: SAUMYA CRUZ Order Number: [id number] Reading MD: Buster Draper Measurements Intervals [place] Rate: 48 P: -10 ND: 268 QRS: -61 QRSD: 158 T: 44 QT: 463 QTc: 414 Interpretive Statements Sinus bradycardia Prolonged ND interval Left bundle branch block Compared to ECG 11/16/2019 23:19:57 No significant changes Electronically Signed On 11-18-2019 11:23:11 EST by Buster Draper [employer] Work Phone: MagnesiumOrdered By: Saumya morales on 11-18-2019 Magnesium [Mass/Vol] 2.0 mg/dL 1.6 - 2 .3 mg/dL [employer] Work Phone: Comment on above: Slightly hemolysed, interpret with caution. No Panel InformationOrdered By: Saumya Cruz on 11-18-2019 Interpretation and review of laboratory results Abnormal [facility] Work Phone: Test Performed by [facility], [address] [place] [address] [employer] Work Phone: POCT GlucoseOrdered By: Anthony Leach on 11-18-2019 Glucose [Mass/Vol] 141 mg/dL High 70 - 100 mg/dL [employer] Work Phone: Comment on above: Test performed by gl ucose meter. Results may be 10%-15% lower than serum/plasma values. (CLIA ID [id number]) Interpretation and review of laboratory results Abnormal [facility] Work Phone: [phone] Test Performed by [facility], [place] [address] [facility] Work Phone: [phone] Glucose [Mass/Vol] 165 mg/dL High 70 - 100 mg/dL [facility] Work Phone: [phone] Comment on above: Test performed by gl ucose meter. Results may be 10%-15% lower than serum/plasma values. (CLIA ID [id number]) Interpretation and review of laboratory results Abnormal [facility] Work Phone: [phone] Test Performed by [facility], [place] [address] [facility] Work Phone: [phone] Glucose [Mass/Vol] 216 mg/dL High 70 - 100 mg/dL [facility] Work Phone: [phone] Comment on above: Test performed by gl ucose meter. Results may be 10%-15% lower than serum/plasma values. (CLIA ID [id number]) Interpretation and review of laboratory results Abnormal [facility] Work Phone: [phone] Test Performed by [employer], [place] [address] [facility] Work Phone: [phone] Basic Metabolic PanelOrdered By: Saumya Cruz on 11-17-2019 Anion gap [Moles/Vol] 7 mmol/L [facility] Work Phone: [phone] Calcium [Mass/Vol] 8.9 mg/dL 8.4 - 10. 4 mg/dL [facility] Work Phone: [phone] Chloride [Moles/Vol] 105 mmol/L 98 - 10 7 mmol/L [facility] Work Phone: [phone] CO2 [Moles/Vol] 25 mmol/L 22 - 30 mmol/L [facility] Work Phone: [phone] Creatinine [Mass/Vol] 0.6 mg/dL 0.52 - 1.25 mg/dL [facility] Work Phone: [phone] EGFR IF NonAfrican Tunisian >60.0 >60 mL/min [facility] Work Phone: Comment on above: Source- MDRD equatio n with creatinine calibration to IDMS(NKDEP) eGFR not recommended for drug dose adjustment GFR/1.73 sq M.predicted among blacks MDRD (S/P/Bld) [Vol rate/Area] mL/min/{1.73_m2} >60 mL/min [facility] Work Phone: [phone] Glucose [Mass/Vol] 164 mg/dL High 70 - 100 mg/dL [facility] Work Phone: [phone] Potassium [Moles/Vol] 3.7 mmol/L 3.5 - 5.1 mmol/L [facility] Work Phone: [phone] Sodium [Moles/Vol] 137 mmol/L 135 - 145 mmol/L [facility] Work Phone: [phone] Urea nitrogen [Mass/Vol] 17 mg/dL 7 - 20 mg/dL [facility] Work Phone: [phone] Brain Natriuretic PeptideOrd ered By: Saumya Cruz on 11-17-2019 Interpretation and review of laboratory results Abnormal [facility] Work Phone: [phone] Natriuretic peptide B (Bld) [Mass/Vol] 1099 pg/mL High 0 - 125 pg/mL [facility] Work Phone: [phone] Test Performed by [address] [address] [facility] Work Phone: [phone] CBCOrdered By: Saumya Cruz on 11-17-2019 Erythrocyte distribution width (RBC) [Ratio] 13.6 % 11.5 - 14.5 % [facility] Work Phone: [phone] Hematocrit (Bld) [Volume fraction] 38.7 % Low 40 - 52 % [facility] Work Phone: [phone] Hemoglobin (Bld) [Mass/Vol] 13.4 g/dL 13 - 18 g/dL [facility] Work Phone: [phone] Interpretation and review of laboratory results Abnormal [facility] Work Phone: [phone] MCH (RBC) [Entitic mass] 32.3 pg 26 - 34 pg [facility] Work Phone: [phone] MCHC 34.7 % 32 - 36 % [facility] Work Phone: MCV (RBC) [Entitic vol] 93.2 fL 80 - 98 fL [facility] Work Phone: Platelet mean volume (Bld) [Entitic vol] 10.1 fL 7.4 - 10.4 fL [facility] Work Phone: Platelets (Bld) [#/Vol] 151 10*3/uL 140 - 440 10*3/uL [facility] Work Phone: RBC (Bld) [#/Vol] 4.16 10*6/uL Low 4.4 - 5.9 10*6/uL [employer] Work Phone: WBC (Bld) [#/Vol] 9.8 10*3/uL 3.6 - 10.7 10*3/uL [employer] Work Phone: Test Performed by [address] [address] [employer] Work Phone: ECHO Complete 2D W Doppler W ColorOrdered By: Saumya Cruz on 11-17-2019 TRANSTHORACIC ECHOCARDIOGRAM PATIENT: Frank Zimmer STUDY DATE: 11/17/2019 : 1960 AGE: 59 HT/WT: 193 cm (76 118.8 kg in) (261.4 lb) GENDER: M BP: 177 / 99 LOCATION: [facility] PATIENT [facility] STATUS: *ORDERING PHYSICIAN: * Saumya Cruz *READING PHYSICIAN: Elena Zhu *IN PROCESSING INSTRUCTOR: Elena Tena MD RDCS, AE INDICATIONS: HFrEF. CONCLUSIONS SUMMARY: 1. Left ventricle: Systolic function is severely decreased by visual assessment. The estimated ejection fraction is 30%. Hypokinesis of the inferolateral myocardium. 2. Left atrium: The atrium is severely dilated. 3. Aorta: The aorta is mildly dilated. 4. No significant valve disease. STUDY DATA: Complete transthoracic echocardiogram. Procedure: Image quality was poor. Intravenous imaging enhancement (Definity) was administered. Definity lot #: [id number]. M-mode, complete 2D, complete spectral Doppler, and color flow Doppler images were acquired and archived for permanent storage and are available for subsequent review. Study status: Routine. Patient status: Inpatient. FINDINGS LEFT VENTRICLE: The cavity size is severely dilated. Wall thickness is severely increased. Systolic function is severely decreased by visual assessment. The estimated ejection fraction is 30%. Regional wall motion abnormalities: Hypokinesis of the inferolateral myocardium. RIGHT VENTRICLE: The cavity size is mildly dilated. Systolic function is normal. Right ventricular systolic pressure is within the normal range. VENTRICULAR SEPTUM: There is no evidence of a ventricular septal defect. LEFT ATRIUM: The atrium is severely dilated. RIGHT ATRIUM: The atrium is normal in size. ATRIAL SEPTUM: Color Doppler shows no shunt. MITRAL VALVE: Not well visualized. Structurally normal valve. Doppler: There is mild, 1+ regurgitation. The peak diastolic gradient is 3 mm Hg. AORTIC VALVE: Not well visualized. Trileaflet; mildly calcified leaflets. Doppler: There is no regurgitation. The peak systolic gradient is 10 mm Hg. The peak systolic velocity is 1.5 m/sec. TRICUSPID VALVE: Not well visualized. Structurally normal valve. Doppler: There is trivial, less than 1+ regurgitation. PULMONIC VALVE: Not well visualized. Structurally normal valve. Doppler: There is trivial, less than 1+ regurgitation. AORTA: The aorta is mildly dilated. PULMONARY ARTERY: Main pulmonary artery: Normal. PERICARDIUM: There is no pericardial effusion. SYSTEMIC VEINS: Inferior vena cava: The vessel is normal. The IVC collapses by greater than 50% with inspiration. Measurements Value Reference Aortic root ID 3.9 cm <4.5 Value Reference Ascending aorta ID, A-P, S 3.3 cm Ascending aorta ID/bsa, A-P, S 1.3 cm/m^2 Left ventricle Value Reference LV ID, ED (H) 5.9 cm 4.2 - 5.8 LV ID, ES (H) 4.8 cm 2.5 - 4.0 LV ID/bsa, ED 2.3 cm/m^2 2.2 - 3.0 LV ID/bsa, ES 1.9 cm/m^2 1.3 - 2.1 LV PW thickness, ED (H) 1.7 cm 0.6 - 1.0 LV PW/LV ID ratio, ED 0.29 LV wall mass (H) 563 g 96 - 200 LV wall mass/bsa (H) 221 g/m^2 50 - 102 Stroke volume/bsa, 1-p A2C 39.5 ml/m^2 LV end-diastolic volume, 1-p A4C (H) 270 ml 69 - 185 LV end-systolic volume, 1-p A4C (H) 185 ml 22 - 78 LV end-diastolic volume, 2-p (H) 256 ml 62 - 150 LV end-systolic volume, 2-p (H) 161 ml 21 - 61 LV ejection fraction, 2-p (L) 30 % 52 - 72 LV E/e', lateral 11.5 LV E/e', medial 14.6 LV E/e', average 12.9 Ventricular septum Value Reference IVS thickness, ED (H) 2.0 cm 0.6 - 1.0 LVOT Value Reference LVOT ID, A-P 2.4 cm -- (more content not included)... [employer] Work Phone: [facility], [facility] Cardiology Results From [facility] - 11/17/2019 3:04 PM EST TRANSTHORACIC ECHOCARDIOGRAM PATIENT: Frank Zimmer STUDY DATE: 11/17/2019 : 1960 AGE: 59 HT/WT: 193 cm (76 118.8 kg in) (261.4 lb) GENDER: M BP: 177 / 99 LOCATION: [facility] PATIENT Inpatient [facility] STATUS: *ORDERING PHYSICIAN: * Saumya Cruz *READING PHYSICIAN: * Marko *IN PROCESSING INSTRUCTOR: * Staci Tena MD RDCS, AE INDICATIONS: HFrEF. CONCLUSIONS SUMMARY: 1. Left ventricle: Systolic function is severely decreased by visual assessment. The estimated ejection fraction is 30%. Hypokinesis of the inferolateral myocardium. 2. Left atrium: The atrium is severely dilated. 3. Aorta: The aorta is mildly dilated. 4. No significant valve disease. STUDY DATA: Complete transthoracic echocardiogram. Procedure: Image quality was poor. Intravenous imaging enhancement (Definity) was administered. Definity lot #: [id number]. M-mode, complete 2D, complete spectral Doppler, and color flow Doppler images were acquired and archived for permanent storage and are available for subsequent review. Study status: Routine. Patient status: Inpatient. FINDINGS LEFT VENTRICLE: The cavity size is severely dilated. Wall thickness is severely increased. Systolic function is severely decreased by visual assessment. The estimated ejection fraction is 30%. Regional wall motion abnormalities: Hypokinesis of the inferolateral myocardium. RIGHT VENTRICLE: The cavity size is mildly dilated. Systolic function is normal. Right ventricular systolic pressure is within the normal range. VENTRICULAR SEPTUM: There is no evidence of a ventricular septal defect. LEFT ATRIUM: The atrium is severely dilated. RIGHT ATRIUM: The atrium is normal in size. ATRIAL SEPTUM: Color Doppler shows no shunt. MITRAL VALVE: Not well visualized. Structurally normal valve. Doppler: There is mild, 1+ regurgitation. The peak diastolic gradient is 3 mm Hg. AORTIC VALVE: Not well visualized. Trileaflet; mildly calcified leaflets. Doppler: There is no regurgitation. The peak systolic gradient is 10 mm Hg. The peak systolic velocity is 1.5 m/sec. TRICUSPID VALVE: Not well visualized. Structurally normal valve. Doppler: There is trivial, less than 1+ regurgitation. PULMONIC VALVE: Not well visualized. Structurally normal valve. Doppler: There is trivial, less than 1+ regurgitation. AORTA: The aorta is mildly dilated. PULMONARY ARTERY: Main pulmonary artery: Normal. PERICARDIUM: There is no pericardial effusion. SYSTEMIC VEINS: Inferior vena cava: The vessel is normal. The IVC collapses by greater than 50% with inspiration. Measurements Value Reference Aortic root ID 3.9 cm <4.5 Value Reference Ascending aorta ID, A-P, S 3.3 cm Ascending aorta ID/bsa, A-P, S 1.3 cm/m^2 Left ventricle Value Reference LV ID, ED (H) 5.9 cm 4.2 - 5.8 LV ID, ES (H) 4.8 cm 2.5 - 4.0 LV ID/bsa, ED 2.3 cm/m^2 2.2 - 3.0 LV ID/bsa, ES 1.9 cm/m^2 1.3 - 2.1 LV PW thickness, ED (H) 1.7 cm 0.6 - 1.0 LV PW/LV ID ratio, ED 0.29 LV wall mass (H) 563 g 96 - 200 LV wall mass/bsa (H) 221 g/m^2 50 - 102 Stroke volume/bsa, 1-p A2C 39.5 ml/m^2 LV end-diastolic volume, 1-p A4C (H) 270 ml 69 - 185 LV end-systolic volume, 1-p A4C (H) 185 ml 22 - 78 LV end-diastolic volume, 2-p (H) 256 ml 62 - 150 LV end-systolic volume, 2-p (H) 161 ml 21 - 61 LV ejection fraction, 2-p (L) 30 % 52 - 72 LV E/e', lateral 11.5 LV E/e', medial 14.6 LV E/e', average 12.9 Ventricular septum Value Reference IVS thickness, ED (H) 2.0 cm 0.6 - 1.0 LVOT Value Reference LVOT ID, A-P 2.4 cm LVOT mean velocity, S 0.6 m/sec LVOT peak gradient, S 2 mm Hg Stroke volume (SV), LVOT DP 73 ml Stroke index (SV/bsa), LVOT DP 28 ml/m^2 Aortic valve Value Reference Aortic valve peak velocity, S 1.5 m/sec Aortic peak gradient, S 10 mm Hg Left atrium Value Reference LA volume/bsa, ES, 2-p (H) 51 ml/m^2 16 - 34 Mitral valve Value Reference Mitral E-wave peak velocity 0.8 m/sec Mitral A-wave peak velocity 0.4 m/sec Mitral deceleration time 262 ms Mitral peak gradient, D 3 mm Hg Mitral E/A ratio, peak 1.9 Pulmonary arteries Value Reference PA pressure, S, DP 29 mm Hg Tricuspid valve Value Reference Tri (more content not included)... [employer] Work Phone: EKG 12 LeadOrdered By: Saumya Cruz on 11-17-2019 [employer] Test Date: 2019-11-16 Pat Name: Frank [facility]immer [facility] Gender: M Cardiac Cath Tech: [facility] : 1960 Requested By: SAUMYA CRUZ Order Number: [id number] Reading MD: Buster Draper Measurements Intervals [place] Rate: 52 P: 0 ND: 278 QRS: -65 QRSD: 160 T: 74 QT: 446 QTc: 415 Interpretive Statements Sinus bradycardia Prolonged ND interval Left bundle branch block Electronically Signed On 11-17-2019 11:51:07 EST by Buster Draper [employer] Work Phone: [facility], [facility] Incoming Cardiology Results From [facility] - 11/17/2019 11:52 AM EST [employer] Test Date: 2019-11-16 Pat Name: Frank Zimmer Department: [facility] Room: [facility] Gender: M Cardiac Cath Tech: DARRYL : 1960 Requested By: SAUMYA CRUZ Order Number: [id number] Reading MD: Buster Draper Measurements Intervals [place] Rate: 52 P: 0 ND: 278 QRS: -65 QRSD: 160 T: 74 QT: 446 QTc: 415 Interpretive Statements Sinus bradycardia Prolonged ND interval Left bundle branch block Electronically Signed On 11-17-2019 11:51:07 EST by Buster Draper [employer] Work Phone: Hemoglobin [id number] By: Santi Cruz on 11-17-2019 HbA1c (Bld) [Mass fraction] 7.5 % High 4 - 5.7 % [facility] Work Phone: Comment on above: --HgbA1C levels may not be accurate in patients who have renal disease, received recent blood transfusions, are anemic, or who have dyshemoglobinemia. Interpretation and review of laboratory results Abnormal [facility] Work Phone: Magnesium [Mass/Vol] 169 mg/dL [facility] Work Phone: Test Performed by [facility] [address] [address] [facility] Work Phone: Lipid panel - fastingOrdered By: Saumya Cruz on 11-17-2019 Cholesterol [Mass/Vol] 118 mg/dL <200 [employer] Work Phone: Cholesterol in HDL [Mass/Vol] 36 mg/dL Low 40 - 60 mg/dL [facility] Work Phone: Cholesterol in LDL [Mass/Vol] 66 mg/dL <100 [facility] Work Phone: Cholesterol.total/Choles terol in HDL [Mass ratio] 3 {ratio} [facility] Work Phone: Comment on above: Ref Range: < 3 Low Risk for CHD 3-6 Mod Risk for CHD > 6 High Risk for CHD Triglyceride [Mass/Vol] 80 mg/dL <150 [facility] Work Phone: MagnesiumOrdered By: Saumya morales on 11-17-2019 Magnesium [Mass/Vol] 1.9 mg/dL 1.6 - 2 .3 mg/dL [facility] Work Phone: No Panel InformationOrdered By: Saumya Cruz on 11-17-2019 Interpretation and review of laboratory results Abnormal [facility] Work Phone: Test Performed by [facility], [address] [place] [id number] [facility] Work Phone: POCT GlucoseOrdered By: Anthony Leach on 11-17-2019 Glucose [Mass/Vol] 199 mg/dL High 70 - 100 mg/dL [facility] Work Phone: Comment on above: Test performed by gl ucose meter. Results may be 10%-15% lower than serum/plasma values. (CLIA ID [id number]) Glucose [Mass/Vol] 146 mg/dL High 70 - 100 mg/dL [facility] Work Phone: Comment on above: Test performed by gl ucose meter. Results may be 10%-15% lower than serum/plasma values. (CLIA ID [id number]) Glucose [Mass/Vol] 155 mg/dL High 70 - 100 mg/dL [facility] Work Phone: Comment on above: Test performed by gl ucose meter. Results may be 10%-15% lower than serum/plasma values. (CLIA ID [id number]) TroponinOrdered By: Shailesh yip on 11-17-2019 Troponin I.cardiac [Mass/Vol] 0.062 ng/mL High 0 - 0.034 ng/mL [employer] Work Phone: Comment on above: . TroponinOrdered By: Saumya holliday on 11-17-2019 Troponin I.cardiac [Mass/Vol] 0.085 ng/mL High 0 - 0.034 ng/mL [employer] Work Phone: Comment on above: . Troponin I.cardiac [Mass/Vol] 0.081 ng/mL High 0 - 0.034 ng/mL [employer] Work Phone: Comment on above: . XR CHEST 1 VWOrdered By: Archie Parra on 11-17-2019 Patient Name: FRANK ZIMMER ---Diagnostic Radiology--- Exam Date/Time 11/17/2019 06:42:48 EST Exam CR Chest 1 View Frontal Ordering Physician MD ELLA, ASTRID Zheng Accession Number [id number] CPT4 Codes 57342 () Reason For Exam SOB Report CLINICAL INFORMATION: Shortness of breath. CHEST X-RAY, PORTABLE, 0630 hours: An AP portable view without prior examination for comparison demonstrates no abnormality of the mediastinum or cardiac silhouette. A defibrillator pad projects on the medial left mid hemithorax. There are slightly increased interstitial densities in both lungs which could be related to technical factors or mild interstitial edema. No pleural effusion, vascular redistribution, focal consolidation or pneumothorax is seen. The lungs are somewhat hyperinflated. IMPRESSION: Hyperinflation suggesting an element of chronic obstructive pulmonary disease. Slightly increased interstitial densities which could be which could be related to technical factors or mild interstitial edema. Correlate with clinical parameters. No evidence of other acute cardiopulmonary process. Report Dictated on --- Final --- Dictated: 11/17/2019 7:48 am Dictating Physician: MD DELGADO HARLAN Signed Date and Time: 11/17/2019 8:11 am Signed by: MD DELGADO HARLAN Transcribed Date and Time: 11/17/2019 7:48 [facility] Work Phone: [facility], [facility] Incoming Radiology Results From [facility] - 11/17/2019 8:12 AM EST Patient Name: FRANK ZIMMER ---Diagnostic Radiology--- Exam Date/Time 11/17/2019 06:42:48 EST Exam CR Chest 1 View Frontal Ordering Physician MD ELAL, ASTRID Zheng Accession Number [id number] CPT4 Codes 98814 () Reason For Exam SOB Report CLINICAL INFORMATION: Shortness of breath. CHEST X-RAY, PORTABLE, 0630 hours: An AP portable view without prior examination for comparison demonstrates no abnormality of the mediastinum or cardiac silhouette. A defibrillator pad projects on the medial left mid hemithorax. There are slightly increased interstitial densities in both lungs which could be related to technical factors or mild interstitial edema. No pleural effusion, vascular redistribution, focal consolidation or pneumothorax is seen. The lungs are somewhat hyperinflated. IMPRESSION: Hyperinflation suggesting an element of chronic obstructive pulmonary disease. Slightly increased interstitial densities which could be which could be related to technical factors or mild interstitial edema. Correlate with clinical parameters. No evidence of other acute cardiopulmonary process. 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-2017 Tobacco use CPHS Current every day smoker Invali d Interpretation Code [employer] Work Phone: [phone] Lab Report: Basic Metabolic Profile (BMP)on 09-20-2017 Anion gap 6 mmol/L Invalid Interpretation Code 5-15 [employer] Work Phone: [phone] BUN/Creatinine Ratio 21.0 RATIO High 10-20 [facility] [employer] Work Phone: [phone] Calcium 8.7 mg/dL Invalid Interpretation Code 8.5-10.1 [employer] Work Phone: [phone] Chloride 108 mmol/L High 98-107 [employer] Work Phone: [phone] CO2 26.0 mmol/L Invalid Interpretation Code 21.0-32.0 [employer] Work Phone: [phone] Creatinine 0.86 mg/dL Invalid Interpretation Code 0.70-1.30 [employer] Work Phone: [phone] eGFR (non-black) 97 mL/min/{1.73_m2} Invalid Interpretation Code >60 [employer] Work Phone: [phone] eGFR (non-black) 118 mL/min/{1.73_m2} Invalid Interpretation Code >60 [employer] Work Phone: [phone] Glucose mass conc 102 mg/dL Invalid Interpretation Code 70-110 [employer] Work Phone: [phone] Potassium molar conc 4.3 mmol/L Invalid Interpretation Code 3.5-5.1 [employer] Work Phone: [phone] Sodium 140 mmol/L Invalid Interpretation Code 136-145 [employer] Phone: [phone] Urea nitrogen 18 mg/dL Invalid Interpretation Code 7-18 [employer] Work Phone: [phone] Office Visiton 09-20-2017 Dietary management education, guidance, and counseling (procedure) yes Invalid Interpretation Code [employer] Work Phone: [phone] Documentation of current medications (procedure) Done Invalid Interpretation Code [employer] Phone: [phone] Tobacco use CPHS Former smoker Invalid Interpretation Code [employer] Phone: [phone] Replaced Document: Jefry Awad CG Observationson 09-20-2017 EKG QRS axis -49 deg Invalid Interpretation Code [employer] Phone: [phone] Interpretation Sinus Bradycardia -F irst degree A-V block - frequent multiform ectopic ventricular beats Dick = 258 # VECs = 3, # types 2-Left axis -anterior fascicular block. Voltage criteria for LVH (R(aVL) exceeds 1.01 mV) -Nonspecific QRS widening. ABNORMAL Invalid Interpretation Code [employer] Phone: [phone] P [place] 49 deg Invalid Interpretation Code [employer] Phone: [phone] ND Interval 258 ms Invalid Interpretation Code [employer] Phone: [phone] Pulse (Heart Rate) 51 /min Invalid Interpretation Code [employer] Phone: [phone] QRS Duration 132 ms Invalid Interpretation Code [employer] Phone: [phone] QT Interval new path ms Invalid Interpretation Code [employer] Phone: [phone] QTc Hamm 505 ms Invalid Interpretation Code [employer] Phone: [phone] T [place] 23 deg Invalid Interpretation Code [employer] Phone: [phone] Lab Report: ACT Activated Cl otting Timeon 09-13-2017 ACTk CLOT TIME 186 sec High 74-137 [employer] Phone: [phone] Lab Report: CBC-Complete Blo od Cnt No Diffon 09-13-2017 Erythrocyte distribution width Auto Ratio (RBC) 13.4 % Invalid Interpretation Code 11.6-14.6 [employer] [facility] Work Phone: [phone] Erythrocytes (RBC) 4.65 10*6/uL Invalid Interpretation Code 4.6-6.2 [facility] Work Phone: [phone] Hematocrit (HCT) 43.8 % Invalid Interpretation Code 40-54 [employer] Work Phone: [phone] Hemoglobin mass conc (Bld) 14.9 g/dL Invalid Interpretation Code 13.0-16.5 [employer] Work Phone: [phone] MCH 32.0 pg Invalid Interpretation Code 27.0-32.0 [employer] Work Phone: [phone] MCHC mass conc (RBC) 34.0 G/GL Invalid Interpretation Code 32-36 [employer] Work Phone: [phone] MCV 94.2 fL High 80-94 [employer] Work Phone: [phone] Platelets 163 10*3/mm3 Invalid Interpretation Code 150-450 [employer] Work Phone: [phone] PMV by Gris 11.9 fL Invalid Interpretation Code 6.2-12.0 [employer] Work Phone: [phone] RDW SD 46.1 fL High 35.1-43.9 [employer] Work Phone: [phone] WBC (Leukocytes) 14.6 10*3/uL High 4.4-11.0 [facility] Work Phone: [phone] Lab Report: CPK Total, Creat ine Kinaseon 09-13-2017 Creatine kinase (CK) 197 U/L Invalid Interpretation Code 39-308 [employer] Work Phone: [phone] Lab Report: Troponin-Ion Troponin I.cardiac mass conc 0.63 ng/mL Critically high <0.06 [employer] Work Phone: [phone] Vital Signs Date Time Vital Sign Value Performing Clinician Facility 06-04-2025 13:58-0400 Diastolic blood pressure 78 mm[Hg] Lacey Mcdermott MD Work Phone: [facility] 06-04-2025 13:58-0400 Heart rate 60 /min Lacey Mcdermott MD Work Phone: [facility] 06-04-2025 13:58-0400 Respiratory rate 16 /min Lacey Mcdermott MD Work Phone: [facility] 06-04-2025 13:58-0400 SaO2% (BldA) [Mass fraction] 96 % Lacey Mcdermott MD Work Phone: [facility] 06-04-2025 13:58-0400 Systolic blood pressure 129 mm[Hg] Lacey Tellez Work Phone: [facility] 03-21-2025 15:02-0400 Body height 195.6 cm Falguni Zarate MD Work Phone: [facility] 03-21-2025 15:02-0400 Body mass index (BMI) [Ratio] 22.53 kg/m2 Falguni Zarate MD Work Phone: [facility] 03-21-2025 15:02-0400 Body weight 86.18 kg Falguni Zarate MD Work Phone: [facility] 03-21-2025 15:02-0400 Diastolic blood pressure 68 mm[Hg] Falguni Zarate MD Work Phone: [facility] 03-21-2025 15:02-0400 Heart rate 60 /min Falguni Zarate MD Work Phone: [facility] 03-21-2025 15:02-0400 SaO2% (BldA) [Mass fraction] 95 % Falguni Zarate MD Work Phone: [facility] 03-21-2025 15:02-0400 Systolic blood pressure 136 mm[Hg] Falguni Tellez Work Phone: [facility] 03-04-2025 14:14-0400 Diastolic blood pressure 72 mm[Hg] Lacey Mcdermott MD Work Phone: [facility] 03-04-2025 14:14-0400 Heart rate 57 /min Lacey Mcdermott MD Work Phone: [facility] 03-04-2025 14:14-0400 Respiratory rate 16 /min Lacey Mcdermott MD Work Phone: [facility] 03-04-2025 14:14-0400 SaO2% (BldA) [Mass fraction] 95 % Lacey Mcdermott MD Work Phone: [facility] 03-04-2025 14:14-0400 Systolic blood pressure 128 mm[Hg] Lacey Tellez Work Phone: [facility] 02-01-2025 15:31-0400 Body height 195.[address] Reagan Soto MD Work Phone: [facility] 02-01-2025 15:31-0400 Body mass index (BMI) [Ratio] 23.4 kg/m2 Dr. Reagan Soto MD Work Phone: [facility] 02-01-2025 15:31-0400 Body weight 89.[address] Reagan Soto MD Work Phone: [facility] 02-01-2025 15:31-0400 Diastolic blood pressure 55 mm[Hg] Dr. Reagan Soto MD Work Phone: [facility] 02-01-2025 15:31-0400 Heart rate 59 /min Dr. Reagan Soto MD Work Phone: [facility] 02-01-2025 15:31-0400 Respiratory rate 18 /min Dr. Reagan Soto MD Work Phone: [facility] 02-01-2025 15:31-0400 SaO2% (BldA) [Mass fraction] 94 % Dr. Reagan Soto MD Work Phone: [facility] 02-01-2025 15:31-0400 Systolic blood pressure 95 mm[Hg] Dr. Reagan arnold MD Work Phone: [facility] 01-21-2025 13:39-0400 Body height 195.6 cm Lacey Mcdermott MD Work Phone: [facility] 01-21-2025 13:39-0400 Diastolic blood pressure 69 mm[Hg] Lacey Mcdermott MD Work Phone: [facility] 01-21-2025 13:39-0400 Heart rate 60 /min Lacey Mcdermott MD Work Phone: [facility] 01-21-2025 13:39-0400 Respiratory rate 16 /min Lacey Mcdermott MD Work Phone: [facility] 01-21-2025 13:39-0400 SaO2% (BldA) [Mass fraction] 93 % Lacey Mcdermott MD Work Phone: [facility] 01-21-2025 13:39-0400 Systolic blood pressure 125 mm[Hg] Lacey Tellez Work Phone: [facility] 01-15-2025 10:00-0400 Heart rate 62 /min Dr. Reagan Soto MD Work Phone: [facility] 01-15-2025 10:00-0400 Respiratory rate 14 /min Dr. Reagan Soto MD Work Phone: [facility] 01-15-2025 10:00-0400 SaO2% (BldA) [Mass fraction] 95 % Dr. Reagan Soto MD Work Phone: [facility] 01-15-2025 08:48-0400 Body temperature 98 [degF] Dr. Reagan Soto MD Work Phone: [facility] 01-15-2025 08:48-0400 Diastolic blood pressure 78 mm[Hg] Dr. Reagan Soto MD Work Phone: [facility] 01-15-2025 08:48-0400 Systolic blood pressure 102 mm[Hg] Dr. Reagan arnold MD Work Phone: [facility] 01-11-2025 05:22-0400 Body mass index (BMI) [Ratio] 23.8 kg/m2 Dr. Reagan Soto MD Work Phone: [facility] 01-11-2025 05:22-0400 Body weight 91.[address] Reagan Soto MD Work Phone: [phone] [place] [address] 01-08-2025 13:43-0400 Body height 195.[address] Reagan Soto MD Work Phone: 3(145)955-258380 [place] [address] 01-03-2025 13:00-0400 Inhaled oxygen flow rate 1 L/min Dr. Reagan Soto MD Work Phone: 4(744)540-020100 [address] 12-28-2024 20:23-0500 Inhaled oxygen concentration 40 % Dr. Reagan Soto MD Work Phone: 1(530)797-023000 [address] 12-27-2024 06:00-0500 Body temperature 97.5 [degF] Dr. Reagan Soto MD Work Phone: 7(209)783-103280 [place] [address] 12-27-2024 06:00-0500 Diastolic blood pressure 69 mm[Hg] Dr. Reagan Soto MD Work Phone: 5(170)643-054280 [place] [address] 12-27-2024 06:00-0500 Heart rate 60 /min Dr. Reagan Soto MD Work Phone: 6(903)738-997380 [place] [address] 12-27-2024 06:00-0500 Respiratory rate 15 /min Dr. Reagan Soto MD Work Phone: 7(532)609-430580 [place] [address] 12-27-2024 06:00-0500 SaO2% (BldA) [Mass fraction] 95 % Dr. Reagan Soto MD Work Phone: 7(957)720-099680 [place] [address] 12-27-2024 06:00-0500 Systolic blood pressure 128 mm[Hg] Dr. Reagan arnold MD Work Phone: [facility] 12-25-2024 15:18-0500 Body height 195.[address] Reagan Soto MD Work Phone: 6(501)302-674580 [place] [address] 12-25-2024 15:18-0500 Body weight 95.[address] Reagan Soto MD Work Phone: [facility] 12-24-2024 16:50-0500 Body mass index (BMI) [Ratio] 25 kg/m2 Dr. Reagan Soto MD Work Phone: [facility] 12-21-2024 10:44-0500 SaO2% (BldA) [Mass fraction] 96 % [facility] Comment on above: Order Comment: Specimen Type: ARTERIAL B LOOD SPECIMENOrdering Facility: [facility] Address: [address] [place] [address] Performed By: #### A LLBG ####[facility]ORY[facility]IA [id number] [place] [address] [place] 12-10-2024 15:36-0500 Diastolic blood pressure 69 mm[Hg] Dr. Reagan Soto MD Work Phone: [facility] 12-10-2024 15:36-0500 Heart rate 62 /min Dr. Reagan Soto MD Work Phone: [facility] 12-10-2024 15:36-0500 Respiratory rate 16 /min Dr. Reagan Soto MD Work Phone: [facility] 12-10-2024 15:36-0500 SaO2% (BldA) [Mass fraction] 92 % Dr. Reagan Soto MD Work Phone: [facility] 12-10-2024 15:36-0500 Systolic blood pressure 97 mm[Hg] Dr. Reagan arnold MD Work Phone: [facility] 12-07-2024 14:07-0500 Body mass index (BMI) [Ratio] 25 kg/m2 Dr. Reagan Soto MD Work Phone: [facility] 12-07-2024 14:07-0500 Body weight [address] Reagan Soto MD Work Phone: [facility] 12-07-2024 14:04-0500 Body temperature 97.7 [degF] Dr. Reagan Soto MD Work Phone: 6(561)684-664880 [place] [address] 12-07-2024 14:04-0500 Diastolic blood pressure 78 mm[Hg] Dr. Reagan Soto MD Work Phone: [facility] 12-07-2024 14:04-0500 Heart rate 70 /min Dr. Reagan Soto MD Work Phone: 5(453)877-900200 [address] 12-07-2024 14:04-0500 Respiratory rate 14 /min Dr. Reagan Soto MD Work Phone: 1(893)004-625900 [address] 12-07-2024 14:04-0500 SaO2% (BldA) [Mass fraction] 98 % Dr. Reagan Soto MD Work Phone: 5(778)115-186900 [address] 12-07-2024 14:04-0500 Systolic blood pressure 142 mm[Hg] Dr. Reagan arnold MD Work Phone: 0(176)979-067200 [address] 12-05-2024 12:25-0500 Diastolic blood pressure 81 mm[Hg] Dr. Reagan Soto MD Work Phone: 9(784)832-990500 [address] 12-05-2024 12:25-0500 Heart rate 70 /min Dr. Reagan Soto MD Work Phone: 0(312)407-768500 [address] 12-05-2024 12:25-0500 SaO2% (BldA) [Mass fraction] 93 % Dr. Reagan Soto MD Work Phone: 4(987)113-450980 [place] [address] 12-05-2024 12:25-0500 Systolic blood pressure 143 mm[Hg] Dr. Reagan arnold MD Work Phone: 5(718)176-684100 [address] 12-05-2024 11:43-0500 Respiratory rate 18 /min Dr. Reagan Soto MD Work Phone: 3(371)455-045180 [place] [address] 11-21-2024 18:08-0500 Body temperature 98.4 [degF] Dr. Reagan Soto MD Work Phone: 7(706)154-195680 [place] [address] 11-21-2024 18:08-0500 Diastolic blood pressure 78 mm[Hg] Dr. Reagan Soto MD Work Phone: [facility] 11-21-2024 18:08-0500 Heart rate 65 /min Dr. Reagan Soto MD Work Phone: [facility] 11-21-2024 18:08-0500 Respiratory rate 16 /min Dr. Reagan Soto MD Work Phone: [facility] 11-21-2024 18:08-0500 SaO2% (BldA) [Mass fraction] 99 % Dr. Reagan Soto MD Work Phone: [facility] 11-21-2024 18:08-0500 Systolic blood pressure 134 mm[Hg] Dr. Reagan arnold MD Work Phone: [facility] 11-21-2024 12:23-0500 Body mass index (BMI) [Ratio] 25.2 kg/m2 Dr. Reagan Soto MD Work Phone: [facility] 11-21-2024 12:23-0500 Body weight 96.[address] Reagan Soto MD Work Phone: [facility] 03-15-2024 10:20-0400 Body height 195.6 cm Falguni Zarate MD Work Phone: [facility] 03-15-2024 10:20-0400 Body mass index (BMI) [Ratio] 26.09 kg/m2 Falguni Zarate MD Work Phone: [facility] 03-15-2024 10:20-0400 Body weight 99.79 kg Falguni Zarate MD Work Phone: [facility] 03-15-2024 10:20-0400 Diastolic blood pressure 76 mm[Hg] Falguni Zarate MD Work Phone: [facility] 03-15-2024 10:20-0400 Heart rate 64 /min Falguni Zarate MD Work Phone: [facility] 03-15-2024 10:20-0400 SaO2% (BldA) [Mass fraction] 99 % Falguni Zarate MD Work Phone: [facility] 03-15-2024 10:20-0400 Systolic blood pressure 128 mm[Hg] Falguni Tellez Work Phone: [facility] 09-14-2023 13:00-0500 Body mass index (BMI) [Ratio] 26.8 kg/m2 Brianna Devlin [employer] INSTALLER - PROJECT SYSTEMS ENGINEER Work Phone: [facility] 09-14-2023 13:00-0500 Body weight 102.51 kg Brianna Devlin MUFFLER INSTALLER - PROJECT SYSTEMS ENGINEER Work Phone: [facility] 09-14-2023 13:00-0500 Diastolic blood pressure 70 mm[Hg] Brianna Devlin MUFFLER INSTALLER - PROJECT SYSTEMS ENGINEER Work Phone: [facility] 09-14-2023 13:00-0500 Heart rate 77 /min Brianna Devlin MUFFLER INSTALLER - PROJECT SYSTEMS ENGINEER Work Phone: [facility] 09-14-2023 13:00-0500 SaO2% (BldA) [Mass fraction] 95 % Brianna Devlin MUFFLER INSTALLER - PROJECT SYSTEMS ENGINEER Work Phone: [facility] 09-14-2023 13:00-0500 Systolic blood pressure 110 mm[Hg] Brianna pike MUFFLER INSTALLER - PROJECT SYSTEMS ENGINEER Work Phone: [facility] 09-08-2023 09:03-0500 Body height 195.[address] Reagan Soto Work Phone: [facility] 09-08-2023 08:58-0500 Body mass index (BMI) [Ratio] 27.3 kg/m2 Dr. Reagan Soto Work Phone: [facility] 09-08-2023 08:58-0500 Body weight 104.[address] Reagan oSto Work Phone: [facility] 09-08-2023 08:58-0500 Diastolic blood pressure 75 mm[Hg] Dr. Reagan Soto Work Phone: [facility] 09-08-2023 08:58-0500 Heart rate 70 /min Dr. Reagan Soto Work Phone: [facility] 09-08-2023 08:58-0500 Respiratory rate 18 /min Dr. Reagan Soto Work Phone: [facility] 09-08-2023 08:58-0500 SaO2% (BldA) [Mass fraction] 93 % Dr. Reagan Soto Work Phone: [facility] 09-08-2023 08:58-0500 Systolic blood pressure 137 mm[Hg] Dr. Reagan arnold Work Phone: [facility] 03-09-2023 08:29-0400 Body height 195.[address] Reagan Soto Work Phone: [facility] 03-09-2023 08:28-0400 Body mass index (BMI) [Ratio] 28.7 kg/m2 Dr. Reagan Soto Work Phone: [facility] 03-09-2023 08:28-0400 Body weight 109.[address] Reagan Soto Work Phone: [facility] 03-09-2023 08:28-0400 Diastolic blood pressure 76 mm[Hg] Dr. Reagan Soto Work Phone: [facility] 03-09-2023 08:28-0400 Heart rate 56 /min Dr. Reagan Soto Work Phone: [facility] 03-09-2023 08:28-0400 Respiratory rate 18 /min Dr. Reagan Soto Work Phone: [facility] 03-09-2023 08:28-0400 SaO2% (BldA) [Mass fraction] 93 % Dr. Reagan Soto Work Phone: [facility] 03-09-2023 08:28-0400 Systolic blood pressure 147 mm[Hg] Dr. Reagan arnold Work Phone: [facility] 01-06-2023 14:47-0400 Body height 195.6 cm Falguni Zarate MD Work Phone: [facility] 01-06-2023 14:47-0400 Body mass index (BMI) [Ratio] 31.42 kg/m2 Falguni Zarate MD Work Phone: [facility] 01-06-2023 14:47-0400 Body weight 120.2 kg Falguni Zarate MD Work Phone: [facility] 01-06-2023 14:47-0400 Diastolic blood pressure 80 mm[Hg] Falguni Zarate MD Work Phone: [facility] 01-06-2023 14:47-0400 Heart rate 60 /min Falguni Zarate MD Work Phone: [facility] 01-06-2023 14:47-0400 SaO2% (BldA) [Mass fraction] 96 % Falguni Zarate MD Work Phone: [facility] 01-06-2023 14:47-0400 Systolic blood pressure 112 mm[Hg] Falguni Tellez Work Phone: [facility] 12-13-2022 22:14-0500 Body mass index (BMI) [Ratio] 32.2 kg/m2 Dr. Reagan Soto Work Phone: [facility] 12-13-2022 22:14-0500 Body weight 123.[address] Reagan Soto Work Phone: [facility] 12-13-2022 22:07-0500 Body height 195.[address] Reagan Soto Work Phone: [facility] 12-13-2022 22:07-0500 Body temperature 96.2 [degF] Dr. Reagan Soto Work Phone: [facility] 12-13-2022 22:07-0500 Diastolic blood pressure 97 mm[Hg] Dr. Reagan Soto Work Phone: [facility] 12-13-2022 22:07-0500 Heart rate 84 /min Dr. Reagan Soto Work Phone: [facility] 12-13-2022 22:07-0500 Respiratory rate 18 /min Dr. Reagan Soto Work Phone: [facility] 12-13-2022 22:07-0500 SaO2% (BldA) [Mass fraction] 92 % Dr. Reagan Soto Work Phone: [facility] 12-13-2022 22:07-0500 Systolic blood pressure 177 mm[Hg] Dr. Reagan arnold Work Phone: [facility] 10-07-2022 14:30-0500 Body mass index (BMI) [Ratio] 31.8 kg/m2 Dr. Reagan Soto Work Phone: [facility] 10-07-2022 14:30-0500 Body weight 121.[address] Reagan Soto Work Phone: [facility] 10-07-2022 14:30-0500 Diastolic blood pressure 79 mm[Hg] Dr. Reagan Soto Work Phone: [facility] 10-07-2022 14:30-0500 Heart rate 60 /min Dr. Reagan Soto Work Phone: [facility] 10-07-2022 14:30-0500 Respiratory rate 18 /min Dr. Reagan Soto Work Phone: [facility] 10-07-2022 14:30-0500 SaO2% (BldA) [Mass fraction] 94 % Dr. Reagan Soto Work Phone: [facility] 10-07-2022 14:30-0500 Systolic blood pressure 155 mm[Hg] Dr. Reagan arnold Work Phone: [facility] 04-07-2022 14:37-0400 Body height 195.[address] Reagan Soto Work Phone: [facility] Work Phone: 04-07-2022 14:37-0400 Body mass index (BMI) [Ratio] 30.6 kg/m2 Dr. Reagan Soto Work Phone: [facility] Work Phone: 04-07-2022 14:37-0400 Body weight 117.[address] Reagan Soto Work Phone: [facility] Work Phone: 04-07-2022 14:37-0400 Diastolic blood pressure 72 mm[Hg] Dr. Reagan Soto Work Phone: [facility] Work Phone: 04-07-2022 14:37-0400 Heart rate 60 /min Dr. Reagan Soto Work Phone: [facility] Work Phone: 04-07-2022 14:37-0400 Respiratory rate 18 /min Dr. Reagan Soto Work Phone: [facility] Work Phone: 04-07-2022 14:37-0400 Systolic blood pressure 154 mm[Hg] Dr. Reagan arnold Work Phone: [facility] Work Phone: 02-23-2022 08:06-0400 Body temperature 97.39 [degF] Falguni Zarate MD Work Phone: [facility] 02-23-2022 08:06-0400 Heart rate 78 /min Falguni Zarate MD Work Phone: [facility] 02-23-2022 08:06-0400 Respiratory rate 20 /min Falguni Zarate MD Work Phone: [facility] 02-23-2022 08:06-0400 SaO2% (BldA) [Mass fraction] 94 % Falguni Zarate MD Work Phone: [facility] 02-23-2022 04:00-0400 Diastolic blood pressure 83 mm[Hg] Falguni Zarate MD Work Phone: [facility] 02-23-2022 04:00-0400 Systolic blood pressure 133 mm[Hg] Falguni Tellez Work Phone: [facility] 02-22-2022 17:15-0400 Body height 195.6 cm Falguni Zarate MD Work Phone: [facility] 02-22-2022 17:15-0400 Body mass index (BMI) [Ratio] 30.5 kg/m2 Falguni Zarate MD Work Phone: [facility] 02-22-2022 17:15-0400 Body weight 116.67 kg Falguni Zarate MD Work Phone: [facility] 11-20-2019 08:16-0500 Diastolic blood pressure 83 mm[Hg] Srinivas Leach MD Work Phone: [facility] Work Phone: 11-20-2019 08:16-0500 Heart rate 67 /min Srinivas Leach MD Work Phone: [facility] Work Phone: 11-20-2019 08:16-0500 Systolic blood pressure 123 mm[Hg] Srinivas sandoval MD Work Phone: [facility] Work Phone: 11-20-2019 08:00-0500 Body temperature 98.01 [degF] Srinivas Leach MD Work Phone: [facility] Work Phone: 11-20-2019 08:00-0500 Respiratory rate 16 /min Srinivas Leach MD Work Phone: [facility] Work Phone: 11-20-2019 08:00-0500 SaO2% (BldA) [Mass fraction] 95 % Srinivas Leach MD Work Phone: [facility] Work Phone: 11-19-2019 20:00-0500 Body mass index (BMI) [Ratio] 30.69 kg/m2 Srinivas Leach MD Work Phone: [facility] Work Phone: 11-19-2019 20:00-0500 Body weight 114.35 kg Srinivas Leach MD Work Phone: [facility] Work Phone: 11-16-2019 23:00-0500 Body height 193 cm Srinivas Leach MD Work Phone: [facility] Work Phone: 09-20-2017 12:03-0500 BMI (Body Mass Index) 32.5 kg/m2 [facility] Work Phone: 09-20-2017 12:03-0500 BP Diastolic 82 mm[Hg] Lenora Godinez RN [facility] Work Phone: 09-20-2017 12:03-0500 BP Systolic 146 mm[Hg] Lenora Godinez RN [facility] Work Phone: 09-20-2017 12:03-0500 Height 193.04 cm Lenora Godinez RN [facility] Work Phone: 09-20-2017 12:03-0500 Pulse (Heart Rate) 60 /min Lenora Godinez RN [facility] Work Phone: 09-20-2017 12:03-0500 Respiratory Rate 18 /min Lenora Godinez RN [facility] Work Phone: 09-20-2017 12:03-0500 Weight 121.11 kg Lenora Godinez RN [facility] Work Phone: Encounters Encounter Date Encounter Type Care Provider Facility Start: 08-07-2025 End: 08-07-2025 ambulatory [facility] Facility:[facility] Start: 08-07-2025 End: 08-07-[address] Reagan Soto MD -Physical Therap y Work Phone: Start: 07-02-2025 End: 07-02-2025 ambulatory [facility] Start: 07-01-[address] Reagan romano MD -Physical Therapy Work Phone: Start: 06-19-2025 End: 06-19-[address] Reagan Soto MD Work Phone: -Laboratory [facility] Start: 06-19-2025 End: 06-19-[address] Reagan Soto MD -Laboratory [facility] [facility] Start: 06-19-2025 End: 06-19-2025 [facility] Start: 06-04-2025 End: 06-04-2025 Office outpatient visit 25 minutes Lacey Mcdermott MD Work Phone: [facility] Comment on above: S/P cervical spinal fusion (Primary Dx) Start: 06-04-2025 End: 06-04-2025 ambulatory LACEY MCDERMOTT Facility:[facility] Start: 06-04-2025 End: 06-04-2025 Subsequent hospital visit by physician [employer] [place] [employer] [facility] Comment on above: S/P cervical spinal fusion [Z98.1] Start: 05-08-2025 End: 05-08-[address] Reagan Soto MD Work Phone: -Laboratory Start: 05-08-2025 End: 05-08-[address] Karen Medina MD -Laboratory Work Phone: Start: 05-08-2025 End: 05-08-2025 ambulatory Reagan Soto Facility:[facility] Start: 03-21-2025 End: 03-21-2025 Office outpatient visit 25 minutes Falguni Zarate MD Work Phone: [facility] Cardiology [facility] Comment on above: LBBB (left bundle br anch block) (Primary Dx); VT (ventricular tachycardia) (HCC); Chronic systolic (congestive) heart failure (HCC); Cardiac resynchronization therapy defibrillator (PLAY THERAPIST-D) in place; CAD, multiple vessel Start: 03-21-2025 End: 03-21-2025 ambulatory [facility] Start: 03-04-2025 End: 03-04-2025 Postop follow up visit related to original px Lacey Mcdermott MD Work Phone: [facility] Comment on above: S/P cervical spinal fusion (Primary Dx) Start: 03-04-2025 End: 03-04-2025 ambulatory LACEY MCDERMOTT Facility:[facility] Start: 03-04-2025 End: 03-04-2025 Subsequent hospital visit by physician [employer] [place] [employer] [facility] [employer] Comment on above: S/P cervical spinal fusion [Z98.1] Start: 02-25-2025 End: 02-25-2025 Refill Brianna Carol Devlin APRN - PROJECT SYSTEMS ENGINEER Work Phone: [facility] Cardiology [facility] Comment on above: Primary hypertension Start: 02-22-2025 End: 02-22-[address] Reagan Soto MD Work Phone: [facility] Work Phone: Start: 02-22-2025 End: 02-22-[address] Reagan Soto MD -Laboratory, [place] Work Phone: Start: 02-22-2025 End: 02-22-2025 [facility] Start: 02-06-2025 End: 02-06-2025 ambulatory [facility] Start: 02-01-2025 End: 02-01-2025 Patient encounter procedure Malinda MEDEIROS -[facility] Work Phone: Start: 02-01-2025 End: 02-01-2025 ambulatory Reagan Soto Facility:[facility] Start: 01-31-2025 End: 01-31-2025 Telephone encounter Lacey Mcdermott MD Work Phone: [facility] Start: 01-22-2025 End: 01-23-2025 Patient encounter procedure [facility] Start: 01-21-2025 End: 01-21-2025 Postop follow up visit related to original px Lacey Mcdermott MD Work Phone: [facility] Comment on above: S/P cervical spinal fusion (Primary Dx) Start: 01-21-2025 End: 01-21-2025 ambulatory LACEY MCDERMOTT Facility:[facility] Start: 01-21-2025 End: 01-21-2025 Subsequent hospital visit by physician [employer] [place] [employer] [facility] Comment on above: S/P cervical spinal fusion [Z98.1] Start: 01-15-2025 Non-patient / Non-visit Dr. Santi Bobo [facility] Work Phone: Start: 01-14-2025 Non-patient / Non-visit Dr. Santi Bobo [facility] Work Phone: Start: 01-10-2025 Non-patient / Non-visit Dr. Santi Bobo [facility] Work Phone: Start: 01-08-2025 End: 01-08-2025 Telephone encounter Lacey Mcdermott MD Work Phone: [facility] Start: 01-08-2025 Non-patient / Non-visit Dr. Santi Bobo [facility] Work Phone: Start: 01-07-2025 Non-patient / Non-visit Dr. Santi Bobo [facility] Work Phone: Start: 01-03-2025 Non-patient / Non-visit Dr. Elsie Garcia [facility] Work Phone: Start: 01-03-2025 End: 01-03-2025 ambulatory Armando Garcia Facility:[facility] Start: 01-03-2025 End: 01-03-2025 Non-patient / Non-visit Dr. Chun Coreas MD -[facility] Work Phone: Start: 01-01-2025 Non-patient / Non-visit Dr. Santi Bobo [facility] Work Phone: Start: 12-31-2024 Non-patient / Non-visit Dr. Santi Bobo [facility] Work Phone: Start: 12-29-2024 Non-patient / Non-visit Dr. Santi Bobo [facility] Work Phone: Start: 12-28-2024 Non-patient / Non-visit Dr. Santi Bobo [facility] Work Phone: Start: 12-27-2024 Non-patient / Non-visit Dr. Santi Bobo [facility] Work Phone: Start: 12-25-2024 Non-patient / [facility] Work Phone: Start: 12-24-2024 Non-patient / Non-visit Dr. Santi Bobo [facility] Work Phone: Start: 12-24-2024 ambulatory Reagan Soto Facilit y:[facility] Start: 12-24-2024 End: 01-15-2025 Evaluation and management of inpatient Dr. Saumya Bobo [facility] Work Phone: Start: 12-21-2024 End: 12-21-2024 Follow-up encounter Jamey Estrella MD Work Phone: [facility] Start: 12-21-2024 End: 12-21-2024 Patient encounter procedure Jamey Estrella MD Work Phone: [facility] Start: 12-20-2024 End: 02-19-2025 Follow-up encounter Jamey Estrella MD Work Phone: [facility] Start: 12-20-2024 End: 12-21-2024 Patient encounter procedure Jamey Estrella MD Work Phone: [facility] Start: 12-20-2024 Patient encounter status Catalino Estrella MD Work Phone: [facility] Work Phone: Start: 12-20-2024 ambulatory Ramon Call Facility:[facility] Start: 12-19-2024 End: 12-19-2024 Follow-up encounter Jamey Estrella MD Work Phone: [facility] Start: 12-19-2024 End: 12-19-2024 Patient encounter procedure Jamey Estrella MD Work Phone: [facility] Start: 12-19-2024 Patient encounter status Catalino Estrella MD Work Phone: [facility] Work Phone: Start: 12-17-2024 End: 12-17-[address] Reagan Soto MD Work Phone: [facility] Work Phone: Start: 12-17-2024 End: 12-17-2024 Patient encounter procedure Roxanna CABRERA -[facility] Work Phone: Start: 12-17-2024 End: 12-17-2024 ambulatory Roxanna Ochoa Facility:[facility] Start: 12-14-2024 End: 12-14-2024 Patient encounter procedure Roxanna CABRERA -[facility] Work Phone: Start: 12-14-2024 End: 12-14-2024 ambulatory Roxanna Ochoa Facility:[facility] Start: 12-10-2024 End: 12-10-[address] Jung Palmer DO -[facility] Work Phone: Start: 12-10-2024 End: 12-10-2024 ambulatory Jung Palmer Facility:[facility] Start: 12-07-2024 End: 12-07-2024 Emergency department patient visit Dr. Jung Palmer DO -Emergency Department Work Phone: Start: 12-05-2024 End: 12-05-[address] Reagan Soto MD -[facility] Work Phone: Start: 12-05-2024 End: 12-05-2024 ambulatory Reagan Soto Facility:[facility] Start: 11-21-2024 End: 11-21-2024 Emergency department patient visit Dr. Jung Palmer DO -Emergency Department Work Phone: Start: 11-09-2024 End: 11-14-2024 Telephone encounter Falguni Zarate MD Work Phone: [facility] Start: 11-07-2024 End: 11-07-2024 ambulatory [facility] Start: 11-02-2024 End: 11-23-2024 Telephone encounter Brianna Devlin APRN [facility] Work Phone: [facility] Comment on above: Med Refill (amiodaro ne (Pacerone) 200 MG tablet 1 tab q24H) Start: 10-30-2024 End: 10-30-[address] Reagan Soto MD -[facility] Work Phone: Start: 10-30-2024 End: 10-30-2024 ambulatory Reagan Soto Facility:[facility] Start: 07-27-2024 End: 07-27-2024 ambulatory [facility] Start: 04-25-2024 End: 04-25-2024 Telephone encounter Kadi Julian RN [facility] Comment on above: Results (PLAY THERAPIST-D remot e ); last remote request Start: 03-15-2024 End: 03-15-2024 Office outpatient visit 25 minutes Falguni Zarate MD Work Phone: [facility] Comment on above: Cardiac resynchroniz ation therapy defibrillator (PLAY THERAPIST-D) in place (Primary Dx); LBBB (left bundle branch block); Chronic systolic (congestive) heart failure (HCC); VT (ventricular tachycardia) (HCC) Start: 03-02-2024 Refill Falguni pisano MD Work Phone: [facility] Comment on above: Primary hypertension Start: 01-09-2024 Refill Falguni pisano MD Work Phone: [facility] [facility] Comment on above: VT (ventricular tach ycardia) (HCC); Paroxysmal atrial fibrillation (HCC); Primary hypertension Start: 11-15-2023 End: 11-15-[address] Reagan Soto Work Phone: [facility] Work Phone: Start: 11-15-2023 End: 11-15-[address] Reagan Soto Work Phone: [facility] Work Phone: Start: 09-14-2023 End: 09-14-2023 Office outpatient visit 25 minutes Brianna Devlin APRN [facility] Work Phone: [facility] Comment on above: Cardiac resynchroniz ation therapy defibrillator (PLAY THERAPIST-D) in place (Primary Dx); Paroxysmal atrial fibrillation (HCC); LBBB (left bundle branch block); VT (ventricular tachycardia) (HCC); Encounter for monitoring amiodarone therapy Start: 09-08-2023 Telephone encounter Kadi Juilan RN [facility] Comment on above: Other (PLAY THERAPIST remote) Start: 09-08-2023 End: 09-08-[address] Reagan Soto Work Phone: [facility] Work Phone: Start: 08-10-2023 End: 08-10-2023 ambulatory [facility] Work Phone: Start: 08-10-2023 End: 08-10-2023 Patient encounter procedure [facility] Work Phone: Start: 08-01-2023 End: 08-01-2023 ambulatory [facility] Work Phone: Start: 08-01-2023 End: 08-01-2023 Patient encounter procedure [facility] Work Phone: Start: 07-13-2023 End: 07-13-2023 ambulatory [facility] Work Phone: Start: 07-13-2023 End: 07-13-2023 [facility] Work Phone: Start: 04-19-2023 End: 04-19-[address] Reagan Soto Work Phone: [facility] Work Phone: Start: 04-19-2023 End: 04-19-[address] Reagan Soto Work Phone: [facility] Start: 03-09-2023 End: 03-09-[address] Reagan Soto Work Phone: [facility] Work Phone: Start: 01-27-[address] Reagan Soto Work Phone: [facility] Work Phone: Start: 01-06-2023 End: 01-06-2023 Office outpatient visit 25 minutes Falguni Zarate MD Work Phone: [facility] Comment on above: Cardiac resynchroniz ation therapy defibrillator (PLAY THERAPIST-D) in place (Primary Dx); VT (ventricular tachycardia); Paroxysmal atrial fibrillation (CMS/HCC) (HCC); Primary hypertension; LBBB (left bundle branch block); Chronic systolic (congestive) heart failure (HCC); CAD, multiple vessel Start: 12-27-2022 Telephone encounter Falguni Zarate MD Work Phone: [facility] Comment on above: OTHER Start: 12-27-2022 End: 12-27-[address] Reagan Soto Work Phone: [facility] Work Phone: Start: 12-27-2022 End: 12-27-[address] Reagan Soto Work Phone: [facility] Start: 12-13-2022 End: 12-14-2022 Emergency department patient visit Dr. Reagan Soto Work Phone: [facility] Start: 10-07-2022 End: 10-07-[address] Reagan Soto Work Phone: [facility] Start: 09-29-2022 Telephone encounter Falguni Zarate MD Work Phone: [facility] Comment on above: Other (ICD remote re quested) Start: 08-23-2022 Follow-up encounter Jamey Estrella MD Work Phone: [facility] Start: 08-23-2022 Patient encounter procedure Jamey Estrella MD Work Phone: [facility] Start: 08-21-2022 End: 08-22-2022 Emergency department patient visit REAGAN SOTO [facility] Start: 06-07-2022 End: 06-07-[address] Reagan Soto Work Phone: [facility] Start: 05-11-2022 End: 05-11-[address] Reagan Soto Work Phone: [facility] Start: 04-07-2022 End: 04-07-[address] Reagan Soto Work Phone: [facility] Start: 02-22-2022 End: 02-23-2022 Subsequent hospital visit by physician Falguni Zarate MD Work Phone: [facility] Comment on above: Arrived Start: 02-11-2022 End: 02-11-2022 Patient encounter procedure [facility] Start: 11-12-2021 End: 11-12-2021 Patient encounter procedure [facility] Start: 12-06-2019 End: 12-06-2019 Subsequent hospital visit by physician Jarvis Hall Work Phone: [facility] [address] Comment on above: Pericardial effusion Start: 11-16-2019 End: 11-20-2019 Evaluation and management of inpatient Srinivas Leach MD Work Phone: [facility] Comment on above: Acute pain (Primary Dx) Procedures Date Procedure Procedure Detail Performing Clinician Start: 06-19-2025 Urine microalbumin/creatinine ratio measurement Dr. Reagan Soto MD Work Phone: Start: 05-08-2025 Methadone measurement, urine Dr. Reagan Soto MD Work Phone: Start: 05-08-[address] Reagan bright MD Work Phone: Comment on above: Test Ordered: [id number]+AP1Akilauypqulk Screen, Urine Negative ng/mL UI Reference Range: Fsosuv=563Ubtkpxuaijh test includes Amphetamine and Methamphetamine.Barbiturates Negative ng/mL UI Reference Range: Yufcyg=099Itzbggcixfyfmax Negative ng/mL UI Reference Range: Yvmgjt=499Tqgapdv (Metab.), Urine Negative ng/mL UI Reference Range: Xafcnq=602Oqyikoo Negative ng/mL UI Reference Range: Pjejil=607Ympunv test includes Codeine, Morphine, Hydromorphone, Hydrocodone.6-Acetylmorphine, Urine Negative ng/mL UI Reference Range: Cutoff=10Oxycodone/Oxymorphone, Urine Negative ng/mL UI Reference Range: Qobefa=725Mwee includes Oxycodone and OxymorphonePCP, Urine Negative ng/mL UI Reference Range: Cutoff=25Methadone Screen, Urine Negative ng/mL UI Reference Range: Xkmbvw=659Zjsbaaexflwb, Urine Negative ng/mL UI Reference Range: Pusaeq=341Osvkulvj, Urine Negative ng/mL UI Reference Range: Cutoff=2.0Test includes Fentanyl and NorfentanylThis test was developed and its performance characteristicsdetermined by [employer]. It has not been cleared orapproved by the Food and Drug Administration.Tramadol Note: ng/mL UI See Final Results Reference Range: Kbrawh=191Ecqoyojv Positive [A ] UI Reference Range: Zjrvak=376Djfhcbdc Conf, [place], [place] 9520 ng/mL UI Reference Range: Ofqnac=427Eaergzkathgvs, Urine Negative ng/mL UI Reference Range: Cutoff=10Creatinine, Urine 121.0 mg/dL UI Reference Range: 20.0-300.0pH, Urine 5.0 UI Reference Range: 4.5-8.9Performed at: [facility] [id number] [place], [place] [id number] Director: Belia Jo PhD, Phone: [phone] at: [facility] [address] [id number] Director: Gerson Linton PhD, Phone: [phone] Start: 02-01-2025 Evaluation of diagno stic study results Dr. Reagan Soto MD Work Phone: Start: 01-14-2025 Urnls dip stick/tabl et reagent auto microscopy Dr. Reagan Soto MD Work Phone: Start: 01-11-[address] Reagan Soto MD Work Phone: Start: 01-05-2025 Gram stain microscopy Rosalinda Soto MD Work Phone: Start: 01-05-2025 Res[address] microbia l culture Dr. Reagan Soto MD Work Phone: Start: 01-03-[address] Reagan Soto MD Work Phone: Start: 01-03-2025 Serum inorganic phos phate measurement Dr. Reagan Soto MD Work Phone: Start: 01-03-2025 Plain chest X-ray Dr. Marce Soto MD Work Phone: Start: 01-03-2025 Carbon dioxide measu rement, partial pressure Dr. Reagan Soto MD Work Phone: Start: 01-03-2025 Gases blood o2 satur ation only direct amaya Dr. Reagan Soto MD Work Phone: Start: 01-03-2025 Measurement of parti al pressure of oxygen in blood Dr. Reagan Soto MD Work Phone: Start: 01-03-[address] Reagan Soto MD Work Phone: Start: 12-28-2024 CT angiography of ch est with contrast Dr. Reagan Soto MD Work Phone: Start: 12-28-[address] Reagan Soto MD Work Phone: Start: 12-28-2024 Sars-cov-2 Dr. Reagan bright MD Work Phone: Start: 12-28-2024 X-ray of chest, PA a nd lateral views Dr. Reagan Soto MD Work Phone: Start: 12-21-2024 ICD CLINIC CHECK Jamey Estrella MD Work Phone: Start: 12-20-2024 ICD CLINIC CHECK Jamey Estrella MD Work Phone: Start: 12-19-2024 ICD CLINIC CHECK Jamey Estrella MD Work Phone: Start: 12-17-2024 CT cervical spine wi thout contrast Dr. Reagan Soto MD Work Phone: Start: 12-17-2024 Measurement of renal function Dr. Reagan Soto MD Work Phone: Comment on above: GFR Calc Start: 12-14-2024 X-ray of cervical spine Dr. Reagan Soto MD Work Phone: Start: 12-10-2024 MRI of cervical spin e with contrast Dr. Reagan Soto MD Work Phone: Start: 12-05-2024 MRI of brain with contrast Dr. Reagan Soto MD Work Phone: Start: 12-05-2024 MRI of lumbar spine Dr. Reagan Soto MD Work Phone: Start: 11-21-2024 Urnls dip stick/tabl et reagent auto microscopy Dr. Reagan Soto MD Work Phone: Start: 11-21-[address] Reagan Soto MD Work Phone: Start: 11-21-2024 Measurement of renal function Dr. Reagan Soto MD Work Phone: Comment on above: GFR Calc Start: 11-21-2024 CT of lumbar spine Dr. Reagan Soto MD Work Phone: Start: 10-30-[address] Reagan Soto MD Work Phone: Comment on above: Deficiency: <3.4 Mar ginal: 3.4 - 5.1 Adequate: >5.1 Start: 10-30-[address] Jonathan Soto MD Work Phone: Comment on above: Performed at: [address] Director: Gerson Linton PhD, Phone: [phone] Start: 10-30-2024 Measurement of renal function Dr. Reagan Soto MD Work Phone: Comment on above: GFR Calc Start: 10-30-2024 X-ray of knee, four or more views Dr. Reagan Soto MD Work Phone: Start: 10-30-2024 X-ray of lumbar spin e, two or three views Dr. Reagan Soto MD Work Phone: Start: 08-02-2024 Thyrotropin [Units/v olume] in Serum or Plasma Brianna Claus JENSENN - PROJECT SYSTEMS ENGINEER Work Phone: Start: 03-15-2024 Ecg routine ecg w/le ast 12 lds w/i&r Falguni Zarate MD Work Phone: Start: 09-14-2023 Ecg routine ecg w/le ast 12 lds trcg only w/o i&r Falguni Zarate MD Work Phone: Start: 08-01-2023 Plain chest X-ray Start: 12-13-2022 X-ray of lumbar spin e, two or three views Dr. Reagan Soto Work Phone: Start: 08-23-2022 ICD CLINIC CHECK Jamey Estrella MD Work Phone: Start: 08-22-2022 Thyrotropin [Units/v olume] in Serum or Plasma Falguni Zarate MD Work Phone: Start: 02-23-2022 Basic metabolic pane l calcium total Lenora O'Shell MUFFLER INSTALLER - PROJECT SYSTEMS ENGINEER Work Phone: Start: 02-22-2022 Ecg routine ecg w/le ast 12 lds w/i&r Lenora O'Shell MUFFLER INSTALLER - PROJECT SYSTEMS ENGINEER Work Phone: Start: 02-22-2022 EP NURSE PROCEDURE REPORT Physician Generic Start: 02-22-2022 End: 02-22-2022 Coagulation time activated Falguni saavedra MD Work Phone: Start: 02-22-2022 End: 02-22-2022 Coagulation time activated Falguni saavedra MD Work Phone: Start: 02-16-2022 Lipid 1996 panel - S maribeth or Plasma Falguni Zarate MD Work Phone: Start: 11-12-2021 Radiologic examinati on of knee Start: 12-06-2019 Echo tthrc r-t 2d w/ wom-mode compl spec&colr d Jarvis Hall Work Phone: Start: 11-20-2019 ELECTROPHYSIOLOGY Kei Zarate MD Work Phone: Start: 11-20-2019 Radiologic exam ches t 2 views Lenora O'Shell MUFFLER INSTALLER - PROJECT SYSTEMS ENGINEER Work Phone: Start: 11-20-2019 Gluc bld gluc mntr d ev cleared fda spec home use Yemi Hinds MD Work Phone: Start: 11-20-2019 Basic metabolic pane l calcium total Saumya Cruz MD Work Phone: Start: 11-19-2019 OPERATIVE REPORT 3m Sca nning Start: 11-19-2019 EP NURSE PROCEDURE REPORT 3m Scanning Start: 11-19-2019 Gluc bld gluc mntr d ev cleared fda spec home use Yemi Hinds MD Work Phone: Start: 11-19-2019 Ecg routine ecg w/le ast 12 lds w/i&r Falguni Zarate MD Work Phone: Start: 11-19-2019 Ecg routine ecg w/le ast 12 lds w/i&r Falguni Zarate MD Work Phone: Start: 11-19-2019 Basic metabolic pane l calcium total Saumya Cruz MD Work Phone: Start: 11-18-2019 Gluc bld gluc mntr d ev cleared fda spec home use Srinivas Leach MD Work Phone: Start: 11-18-2019 Gluc bld gluc mntr d ev cleared fda spec home use Srinivas Leach MD Work Phone: Start: 11-18-2019 Gluc bld gluc mntr d ev cleared fda spec home use Srinivas Leach MD Work Phone: Start: 11-18-2019 Basic metabolic pane l calcium total Saumya Cruz MD Work Phone: Start: 11-17-2019 Gluc bld gluc mntr d ev cleared fda spec home use Srinivas Leach MD Work Phone: Start: 11-17-2019 Echo tthrc r-t 2d w/ wom-mode compl spec&colr d Saumya Cruz MD Work Phone: Start: 11-17-2019 Gluc bld gluc mntr d ev cleared fda spec home use Srinivas Leach MD Work Phone: Start: 11-17-2019 Assay of troponin quantitative Shailesh Flores MD Work Phone: Start: 11-17-2019 Gluc bld gluc mntr d ev cleared fda spec home use Srinivas Leach MD Work Phone: Start: 11-17-2019 Ecg routine ecg w/le ast 12 lds w/i&r Saumya Cruz MD Work Phone: Start: 11-17-2019 Chest x-ray 1 view frontal Astrid Parra MD Work Phone: Start: 11-17-2019 Assay of troponin quantitative Saumya Cruz MD Work Phone: Start: 11-17-2019 Lipid 1996 panel - S maribeth or Plasma Jamey Estrella MD Work Phone: Start: 11-17-2019 Basic metabolic pane l calcium total Saumya Cruz MD Work Phone: Start: 11-17-2019 Lipid panel Saumya Cruz MD Work Phone: Start: 11-16-2019 Ecg routine ecg w/le ast 12 lds w/i&r Saumya Cruz MD Work Phone: Start: 09-20-2017 End: 09-20-2017 BORIS Vora MD Work Phone: Start: 09-20-2017 End: 09-20-2017 Ecg routine ecg w/least 12 lds w/i&r Rom Vora MD Work Phone: Start: 09-20-2017 End: 09-20-2017 Follow Up Appt 6 weeks Rom Vora MD Work Phone: Plan of Treatment Date Care Activity Detail Author Start: 04-16-2031 DTaP/Tdap/Td vaccine (2 - Td or Tdap) DTaP/Tdap/Td vaccine (2 - Td or Tdap) [facility] Start: 04-16-2031 DTaP/Tdap/Td Vaccines (2 - Td or Tdap) DTaP/Tdap/Td Vaccines (2 - Td or Tdap) [facility] Start: 04-16-2031 Urine microalbumin profile DTaP,Tdap,Td Vaccine (2 - Td or Tdap) [facility] Start: 12-25-2027 Diabetes Screening Diabetes Screening [facility] Start: 12-21-2027 Diabetes Screening Diabetes Screening [facility] Start: 12-18-2027 Diabetes Screening Diabetes Screening [facility] Start: 03-04-2026 BP Controlled (<130/80) BP Controlled (<130/80) [facility] Start: 01-21-2026 BP Controlled (<130/80) BP Controlled (<130/80) [facility] Start: 12-24-2025 Diabetes: Estimated Glomerular Filtration Rate for Kidney Health Diabetes: Estimated Glomerular Filtration Rate for Kidney Health [facility] Start: 12-03-2025 End: 12-03-2025 Patient encounter procedure [facility] [employer] Comment on above: xrays 6 month Start: 10-30-2025 Creatinine measurement Creatinine Level [facility] Start: 10-30-2025 Potassium measurement Potassium Level [facility] Start: 08-22-2025 DIABETES SCREEN DIABETES SCREEN [facility] Start: 08-02-2025 Hemoglobin A1c measurement Diabetes: Hemoglobin A1C [facility] Start: 08-02-2025 Thyroid stimulating hormone measurement TSH Level [facility] Start: 07-02-2025 End: 07-02-2025 Professional / ancillary services management 07/02/2025 11:00 AM EDT Ancillary Procedure [facility] [place] [address] [place] [id number] [facility] [place] Start: 06-24-2025 Influenza vaccination [facility] Start: 06-03-2025 End: 06-03-2025 Patient encounter procedure [facility] [employer] Comment on above: Cervical 3 month follow up xr ay today Start: 05-08-2025 Procedure [facility] Start: 03-21-2025 End: 03-21-2025 Patient encounter procedure [facility] Start: 03-21-2025 End: 03-21-2025 Professional / ancillary services management 03/21/2025 2:30 PM EDT Ancillary Procedure [facility] [place] [address] [place] [phone] [facility] [place] Start: 03-04-2025 End: 03-04-2025 Patient encounter procedure [facility] [employer] [employer] [employer] Comment on above: XR CERV OTHER 4V AP/LAT/FLX/EXT XR CERV 4V AP/LAT/FL X/EXT XR CERV AP/LAT/FLX/E XT Start: 02-06-2025 End: 02-06-2025 Professional / ancillary services management 02/06/2025 11:30 AM EDT Ancillary Procedure [facility] [address] [place] [address] [facility] Start: 01-21-2025 End: 01-21-2025 Patient encounter procedure [facility] Comment on above: post op XR CERVICAL AP/LAT Start: 01-15-2025 Patient discharge [facility] Start: 01-10-2025 Referral to service [facility] Start: 01-10-2025 [facility] Start: 01-08-2025 Removal of urinary catheter [facility] Start: 01-07-2025 [facility] Start: 01-03-2025 [facility] Start: 01-03-2025 [facility] Start: 12-31-2024 [facility] Start: 12-29-2024 Inhalation therapy procedure [facility] Start: 12-28-2024 Continuous positive airway pressure ventilation treatment [facility] Start: 12-28-2024 Following clinical pathway protocol [facility] Start: 12-28-2024 Catheterization of vein [facility] Start: 12-28-2024 [facility] Start: 12-26-2024 [facility] Start: 12-24-2024 End: 12-25-2024 [facility] Start: 12-24-2024 Recommendation to continue with treatment [facility] Start: 12-24-2024 Verification routine [facility] Start: 12-24-2024 Urinary bladder training [facility] Start: 12-24-2024 Admission procedure [facility] Start: 12-24-2024 Measuring intake and output [facility] Start: 12-24-2024 Patient referral to dietitian [facility] Start: 12-24-2024 Referral to occupational therapist [facility] Start: 12-24-2024 Referral to service [facility] Start: 12-24-2024 Vital signs measurements [facility] Start: 12-24-2024 Oxygen therapy [facility] Start: 12-20-2024 End: 12-20-2024 Admission to same day surgery center 12/20/2024 5:00 PM EST - 12/20/2024 7:38 PM EST Surgery [facility] [address] [place] [address] Lacey Mcdermott MD [address] [place] [address] POSTERIOR SEGMENTAL INSTRUMENTATION FOLLOWING THORACIC FUSION 3-6 LEVELS [facility] Comment on above: POSTERIOR SEGMENTAL INSTRUMENTATION FOLL OWING THORACIC FUSION 3-6 LEVELS Start: 12-20-2024 End: 12-20-2024 Posterior segmental instrumentation 3-6 vrt seg POSTERIOR SEGMENTAL INSTRUMENTATION FOLLOWING THORACIC FUSION 3-6 LEVELS Cervical spinal stenosis 12/20/2024 5:00 PM EST [facility] Start: 12-07-2024 End: 12-07-2024 [facility] Start: 11-21-2024 [facility] Start: 11-17-2024 Lipid panel Lipid Screening [facility] Start: 11-16-2024 End: 11-16-2025 Comprehensive metabolic 1998 panel - Serum or Plasma Comprehensive metabolic panel Lab Routine [place] (ventricular tachycardia) (HCC) Expected: 11/16/2024 (Approximate), Expires: 11/16/2025 [facility] Work Phone: Comment on above: Expected: 11/16/2024 (Approximate), Expi res: 11/16/2025 Start: 11-16-2024 End: 11-16-2025 Thyrotropin [Units/volume] in Serum or Plasma TSH Lab Routine [place] (ventricular tachycardia) (HCC) Encounter for monitoring amiodarone therapy Chronic systolic (congestive) heart failure (HCC) Expected: 11/16/2024 (Approximate), Expires: 11/16/2025 [facility] Comment on above: Expected: 11/16/2024 (Approximate), Expi res: 11/16/2025 Start: 10-24-2024 Advance Directive Discussion Advance Directive Discussion [facility] Start: 07-27-2024 End: 07-27-2024 Professional / ancillary services management 07/27/2024 3:30 PM EDT Ancillary Procedure [facility] [address] [place] [address] [facility] Start: 06-24-2024 COVID-19 Vaccine ( season) COVID-19 Vaccine () [facility] Start: 06-24-2024 Influenza vaccination [facility] Start: 06-24-2024 Medicare Annual Wellness Visit Medicare Annual Wellness Visit [facility] Start: 06-08-2024 End: 06-08-2024 Professional / ancillary services management 06/08/2024 2:00 PM EDT Ancillary Procedure [facility] [address] [place] [address] [facility] Start: 04-30-2024 Screening for malignant neoplasm of colon [facility] Start: 04-25-2024 End: 04-25-2024 Professional / ancillary services management 04/25/2024 8:00 AM EDT Ancillary Procedure [facility] [address] [place] [address] [facility] Start: 03-15-2024 End: 03-15-2024 Patient encounter procedure [facility] Start: 01-10-2024 End: 01-10-2024 Professional / ancillary services management [facility] Start: 09-14-2023 End: 09-14-2024 Comprehensive metabolic 1998 panel - Serum or Plasma Comprehensive metabolic panel Lab Routine Paroxysmal atrial fibrillation (HCC) Encounter for monitoring amiodarone therapy Expected: 09/14/2023 (Approximate), Expires: 09/14/2024 [facility] Work Phone: Comment on above: Expected: 09/14/2023 (Approximate), Expi res: 09/14/2024 Start: 09-14-2023 End: 09-14-2024 Thyrotropin [Units/volume] in Serum or Plasma TSH Lab Routine Paroxysmal atrial fibrillation (HCC) Encounter for monitoring amiodarone therapy Expected: 09/14/2023 (Approximate), Expires: 09/14/2024 [facility] Comment on above: Expected: 09/14/2023 (Approximate), Expi res: 09/14/2024 Start: 09-14-2023 End: 09-14-2023 Patient encounter procedure 09/14/2023 1:00 PM EST Office Visit [facility] [address] [place] [address] Brianna Devlin APRN - PROJECT SYSTEMS ENGINEER [address] [place] [address] [facility] Start: 08-22-2023 Thyroid stimulating hormone measurement TSH Level [facility] Start: 08-10-2023 Procedure [facility] Start: 07-13-2023 Procedure [facility] Start: 06-24-2023 COVID-19 Vaccine () COVID-19 Vaccine () [facility] Start: 06-24-2023 Influenza vaccination Influenza Vaccine (#1) [facility] Start: 03-09-2023 End: 03-09-2023 Patient encounter procedure 03/09/2023 Office Visit Cardiology Falguni Zarate MD [address] [place] [address] [facility] Start: 02-23-2023 Creatinine measurement [facility] Start: 02-23-2023 Diabetes: Estimated Glomerular Filtration Rate for Kidney Health Diabetes: Estimated Glomerular Filtration Rate for Kidney Health [facility] Start: 02-23-2023 Potassium [Moles/volume] in Serum or Plasma Potassium [facility] Start: 02-23-2023 Potassium measurement Potassium Level [facility] Start: 02-16-2023 Hemoglobin A1c measurement Diabetes: Hemoglobin A1C [facility] Start: 02-16-2023 Lipid panel Lipid Panel [facility] Start: 02-14-2023 End: 02-14-2023 Professional / ancillary services management 02/14/2023 Ancillary Procedure Cardiology [facility] Start: 02-11-2023 Hemoglobin A1c measurement A1C test (Diabetic or Prediabetic) [facility] Start: 02-11-2023 Lipid panel Lipids [facility] Start: 01-05-2023 End: 01-05-2023 Patient encounter procedure 01/05/2023 Office Visit Cardiology Falguni Zarate MD [address] [place] [address] [facility] Start: 06-24-2022 Influenza vaccination [facility] Start: 05-18-2022 Hemoglobin A1c measurement Diabetes: Hemoglobin A1C [facility] Start: 03-25-2022 End: 03-25-2022 Patient encounter procedure 03/25/2022 Office Visit Cardiology Brianna Devlin, [employer]FF[employer] INSTALLER - PROJECT SYSTEMS ENGINEER [address] [place] [address] [facility] Start: 03-18-2022 End: 03-18-2022 Nursing evaluation of patient and report 03/18/2022 Nurse Only Cardiology Franchesca Lee RN [facility] Start: 10-24-2021 DEPRESSION ASSESSMENT DEPRESSION ASSESSMENT [facility] Start: 06-30-2021 COVID-19 Vaccine (3 - Booster for Pfizer series) COVID-19 Vaccine (3 - Booster for Pfizer series) [facility] Start: 06-12-2021 Screening for malignant neoplasm of lung Lung Cancer Screening [facility] Start: 03-25-2021 COVID-19 VACCINE (3 - Booster for Pfizer series) COVID-19 VACCINE (3 - Booster for Pfizer series) [facility] Start: 11-27-2020 Creatinine monitoring Creatinine monitoring [facility] Work Phone: Start: 11-27-2020 Potassium monitoring Potassium monitoring [facility] Work Phone: Start: 11-20-2020 Creatinine monitoring Creatinine monitoring [facility] Work Phone: Start: 11-20-2020 Potassium monitoring Potassium monitoring [facility] Work Phone: Start: 11-17-2020 A1C test (Diabetic or Prediabetic) A1C test (Diabetic or Prediabetic) [facility] Work Phone: Start: 11-17-2020 Hepatitis B surface antibody level LDL Cholesterol [facility] Start: 11-17-2020 Lipid screen Lipid screen [facility] Work Phone: Start: 05-15-2020 End: 05-15-2020 Nurse Only 05/15/2020 Nurse Only Cardiology Franchesca Lee, RN [facility] Start: 02-21-2020 End: 02-21-2020 Office Visit 02/21/2020 Office Visit Cardiology Falguni Zarate MD [address] [place] [id number] [phone] [facility] Start: 02-21-2020 End: 02-21-2020 Nurse Only 02/21/2020 Nurse Only Cardiology Gabriella Butcher RN [facility] Start: 12-06-2019 End: 12-06-2019 Evaluation and management of inpatient 12/06/2019 Nurse Only Cardiology Franchesca Lee, RN [facility] Start: 2019 RSV Immunization aged 60 or older (1 - 1-dose 60+ series) RSV Immunization aged 60 or older (1 - 1-dose 60+ series) [facility] Start: 2019 RSV Immunization for Adults (1 - Risk 60-74 years 1-dose series) RSV Immunization for Adults (1 - Risk 60-74 years 1-dose series) [facility] Start: 2019 RSV Vaccine (1 - Risk 60-74 years 1-dose series) RSV Vaccine (1 - Risk 60-74 years 1-dose series) [facility] Start: 06-24-2019 Influenza vaccination Flu vaccine (#1) [employer] Phone: Start: 11-01-2017 End: 11-01-2017 Appointment [facility] Work Phone: Start: 10-31-2017 End: 09-20-2017 *Hepatic Function Panel *Hepatic Function Panel [facility] Work Phone: Start: 10-31-2017 End: 09-20-2017 Lipid panel [AGGREGATE] *Lipid Profile CC PCP [facility] Work Phone: Start: 09-20-2017 End: 09-20-2017 *BMP *BMP [facility] Work Phone: Start: 09-20-2017 End: 09-20-2017 Complete sleep workup (PSG,CPAP as indicated) & Follow up Complete sleep workup (PSG,CPAP as indicated) & Follow up [facility] Work Phone: Start: 09-20-2017 End: 09-20-2017 DJN DJN [facility] Work Phone: Start: 09-20-2017 End: 09-20-2017 Follow Up Appt 6 weeks Follow Up Appt 6 weeks [facility] Work Phone: Start: 09-20-2017 End: 09-20-2017 Prq trluml coronary stent w/angio one art/brnch Stent [facility] Work Phone: Start: 09-20-2017 End: 09-20-2017 Appointment Appointment [facility] Work Phone: Start: [address] lung screening Low dose CT lung screening [employer] Work Phone: Start: 2014 PROSTATE CANCER SCREENING DISCUSSION PROSTATE CANCER SCREENING DISCUSSION [facility] Start: 2014 Prostate specific antigen measurement Prostate Cancer Screening Discussion [facility] Start: 2009 Colon cancer screen colonoscopy Colon cancer screen colonoscopy [facility] Work Phone: Start: 2009 Pneumococcal Vaccine: 50+ (1 of 1 - PCV) Pneumococcal Vaccine: 50+ (1 of 1 - PCV) [facility] Start: 2009 Screening for malignant neoplasm of lung Low dose CT lung screening [facility] Start: 2009 Shingles Vaccine (1 of 2) Shingles Vaccine (1 of 2) [facility] Start: 2009 SHINGRIX VACCINE (1 of 2) SHINGRIX VACCINE (1 of 2) [facility] Start: 2009 Zoster Vaccines (1 of 2) Zoster Vaccines (1 of 2) [facility] Start: 2004 COLOGUARD (FIT-DNA) COLOGUARD (FIT-DNA) [facility] Start: 2004 Colonoscopy COLONOSCOPY [facility] Start: 2004 COLORECTAL CANCER SCREENING COLORECTAL CANCER SCREENING [facility] Start: [address] COLONOGRAPHY [facility] Start: 2004 FECAL OCCULT BLOOD FECAL OCCULT BLOOD [facility] Start: 2004 Prostate specific antigen measurement Prostate Cancer Screening Discussion [facility] Start: 2004 Screening for malignant neoplasm of colon [facility] Start: 2004 SIGMOIDOSCOPY SIGMOIDOSCOPY [facility] Start: 1994 LIPID SCREEN LIPID SCREEN [facility] Start: 1978 Hepatitis B vaccine (1 of 3 - Risk 3-dose series) Hepatitis B vaccine (1 of 3 - Risk 3-dose series) [facility] Work Phone: Start: 1978 Pneumococcal Vaccine: 50+ Years (1 of 2 - PCV) Pneumococcal Vaccine: 50+ Years (1 of 2 - PCV) [facility] Start: 1978 Urine microalbumin profile DTAP,TDAP,TD (1 - Tdap) [facility] Start: 1978 Urine screening for protein Diabetes: Urine Protein Screening [facility] Start: 1977 ANNUAL PCP TEAM CHRONIC DISEASE VISIT ANNUAL PCP TEAM CHRONIC DISEASE VISIT [facility] Start: 1977 Anxiety Screening Anxiety Screening [facility] Start: 1977 BP Controlled (<130/80) BP Controlled (<130/80) [facility] Start: 1977 Depression Screening Depression Screening [facility] Start: 1977 Diabetes: Urine Albumin-Creatinine Ratio for Kidney Health Diabetes: Urine Albumin-Creatinine Ratio for Kidney Health [facility] Start: 1977 Diabetic microalbuminuria test Diabetic microalbuminuria test [facility] Work Phone: Start: 1977 Diabetic retinal exam Diabetic retinal exam [facility] Start: 1977 Hepatitis B surface antibody level LDL CHOLESTEROL [facility] Start: 1977 Hepatitis C screening [facility] Start: 1977 HEPATITIS C SCREENING HEPATITIS C SCREENING [facility] Start: 1977 HIV SCREENING HIV SCREENING [facility] Start: 1977 HIV screening HIV Screening [facility] Start: 1977 Urine screening for protein Diabetic microalbuminuria test [facility] Start: 1974 HIV screen HIV screen [facility] Work Phone: Start: 1974 HIV screening HIV screen [facility] Start: 1971 Depression Monitoring Depression Monitoring [facility] Start: 1971 Depression Screen Depression Screen [facility] Start: 1971 Depression Screening Depression Screening [facility] Start: 1970 DTaP/Tdap/Td vaccine (1 - Tdap) DTaP/Tdap/Td vaccine (1 - Tdap) [facility] Work Phone: Start: 1969 [object Object] Diabetic foot exam [facility] Work Phone: Start: 1969 Diabetic foot examination [facility] Start: 1969 Diabetic retinal exam Diabetic retinal exam [facility] Work Phone: Start: 1969 Glaucoma screening Diabetes: Retinopathy Screening [facility] Start: 1969 Preventive dental service Diabetes: Dental Exam [facility] Start: 1965 Pneumococcal 0-64 years Vaccine (1 - PCV) Pneumococcal 0-64 years Vaccine (1 - PCV) [facility] Start: 1965 Pneumococcal 0-64 years Vaccine (1 of 1 - PPSV23) Pneumococcal 0-64 years Vaccine (1 of 1 - PPSV23) [facility] Work Phone: Start: 1965 Pneumococcal Vaccine: Pediatrics (0 to 5 Years) and At-Risk Patients (6 to 64 Years) (1 - PCV) Pneumococcal Vaccine: Pediatrics (0 to 5 Years) and At-Risk Patients (6 to 64 Years) (1 - PCV) [facility] Start: 1965 Pneumococcal Vaccine: Pediatrics (0 to 5 Years) and At-Risk Patients (6 to 64 Years) (1 of 2 - PCV) Pneumococcal Vaccine: Pediatrics (0 to 5 Years) and At-Risk Patients (6 to 64 Years) (1 of 2 - PCV) [facility] Start: 1960 MMR Vaccines (1 of 1 - Standard series) MMR Vaccines (1 of 1 - Standard series) [facility] Start: 1959 Abdominal aortic aneurysm screening Abdominal Aortic Aneurysm Screening [facility] Start: 1959 Annual wellness visit Medicare Initial Physical (IPPE) [facility] Start: 1959 Echocardiography Echocardiogram [facility] Start: 1959 Hepatitis B Vaccines (1 of 3 - 3-dose series) Hepatitis B Vaccines (1 of 3 - 3-dose series) [facility] Start: 1959 Hepatitis C screen Hepatitis C screen [facility] Work Phone: Start: 1959 HIV screening HIV Screening [facility] Start: 1959 Medicare Annual Wellness (AWV) Medicare Annual Wellness (AWV) [facility] Start: 1959 Screening for malignant neoplasm of colon [facility] Start: 1959 TSH testing TSH testing [employer] Work Phone: Basic metabolic 2000 panel - Serum or Plasma Basic Metabolic Panel Lab Routine Daily until discontinued starting 11/17/2019, 4 completed [employer] Work Phone: Comment on above: Daily until discontinued starting 2019, 4 completed End: 11-23-2019 Brain Natriuretic Peptide Brain Natriuretic Peptide Lab Routine Every Third Day for 3 Occurrences starting 11/17/2019 until 11/23/2019, 2 completed [employer] Work Phone: Comment on above: Every Third Day for 3 Occurrences starti ng 11/17/2019 until 11/23/2019, 2 completed End: 02-22-2022 Catheterization and angiography procedure details panel Diagnostic Cardiac Still Operator Procedure Cardiac Cath Routine One Time for 1 Occurrences starting 02/22/2022 until 02/22/2022 [employer] Work Phone: Comment on above: One Time for 1 Occurrences starting 11/2021 until 02/22/2022 CBC panel - Blood by Automated count CBC Lab Routine Daily until discontinued starting 11/17/2019, 4 completed [employer] Work Phone: Comment on above: Daily until discontinued starting 2019, 4 completed ECG 12 lead - CLINIC PERFORMED ECG 12 lead - CLINIC PERFORMED CV ECG Routine Paroxysmal atrial fibrillation (HCC) 09/14/2023 1:02 PM EST [employer] Work Phone: EKG 12 lead EKG 12 lead ECG STAT 02/22/2022 5:07 PM EDT [employer] Work Phone: End: 11-19-2019 ELECTROPHYSIOLOGY DEVICE ELECTROPHYSIOLOGY DEVICE Echocardiography Routine One Time for 1 Occurrences starting 11/19/2019 until 11/19/2019 [employer] Work Phone: Comment on above: One Time for 1 Occurrences starting 10/25 until 11/19/2019 End: 02-22-2022 Electrophysiology Testing Electrophysiology Testing Echocardiography Routine One Time for 1 Occurrences starting 02/22/2022 until 02/22/2022 [facility] Work Phone: Comment on above: One Time for 1 Occurrences starting 050 11/2021 until 02/22/2022 Initiate Oxygen Ther apy Protocol Initiate Oxygen Therapy Protocol Respiratory Care Routine Daily until discontinued starting 11/16/2019 [employer] Work Phone: Comment on above: Daily until discontinued starting 2019 Magnesium [Mass/volu me] in Serum or Plasma Magnesium Lab Routine Tomorrow AM until discontinued starting 11/17/2019, 4 completed [employer] Work Phone: Comment on above: Tomorrow AM until discontinued starting 11/17/2019, 4 completed Oxygen therapy [Mini mum Data Set] Initiate Oxygen Therapy Protocol Respiratory Care Routine As Needed until discontinued starting 02/22/2022 [employer] Work Phone: Comment on above: As Needed until discontinued starting Oxygen therapy [Mini mum Data Set] Initiate Oxygen Therapy Protocol Respiratory Care Routine As Needed until discontinued starting 02/22/2022 [employer] Work Phone: Comment on above: As Needed until discontinued starting Patient Education [facility] Work Phone: Patient referral [facility] Work Phone: End: 11-17-2019 Troponin I.cardiac [Mass/volume] in Serum or Plasma Troponin Lab Timed Now Then Every 3hr for 2 Occurrences starting 11/16/2019 until 11/17/2019, 1 completed [employer] Work Phone: Comment on above: Now Then Every 3hr for 2 Occurrences sta rting 11/16/2019 until 11/17/2019, 1 completed Troponin I.cardiac [Mass/volume] in Serum or Plasma Troponin Lab Timed 11/17/2019 12:17 AM EST [employer] Work Phone: [facility] Work Phone: End: 02-20-2026 XR CERV OTHER 4V AP/LAT/FLX/EXT XR CERV OTHER 4V AP/LAT/FLX/EXT Radiology Routine S/P cervical spinal fusion 1 Occurrences starting 01/21/2025 until 02/20/2026 [facility] Work Phone: Comment on above: 1 Occurrences starting 01/21/2025 until 02/20/2026 End: 04-03-2026 XR CERV OTHER 4V AP/LAT/FLX/EXT XR CERV OTHER 4V AP/LAT/FLX/EXT Radiology Routine S/P cervical spinal fusion 1 Occurrences starting 03/04/2025 until 04/03/2026 [facility] Work Phone: Comment on above: 1 Occurrences starting 03/04/2025 until 04/03/2026 XR CERV OTHER 4V AP/LAT/FLX/EXT XR CERV OTHER 4V AP/LAT/FLX/EXT Radiology Routine S/P cervical spinal fusion 03/04/2025 2:01 PM EDT [facility] Work Phone: End: 07-04-2026 XR CERV OTHER 4V AP/LAT/FLX/EXT XR CERV OTHER 4V AP/LAT/FLX/EXT Radiology Routine S/P cervical spinal fusion 1 Occurrences starting 06/04/2025 until 07/04/2026 [facility] Work Phone: Comment on above: 1 Occurrences starting 06/04/2025 until 07/04/2026 XR CERV OTHER 4V AP/LAT/FLX/EXT XR CERV OTHER 4V AP/LAT/FLX/EXT Radiology Routine S/P cervical spinal fusion 06/04/2025 1:45 PM EDT [facility] Work Phone: XR Cervical spine AP and Lateral XR CERV GENERAL 2V AP/LAT Radiology Routine S/P cervical spinal fusion 01/21/2025 1:28 PM EDT [facility] Work Phone: [facility] Immunizations Immunization Date Immunization Notes Care Provider [facility] 08-02-2024 influenza virus vaccine, unspecified formulation Lacey Mcdermott MD Work Phone: [facility] 01-28-2021 Pfizer SARS-CoV-2 Vaccination Falguni Zarate MD Work Phone: [facility] 01-07-2021 Pfizer SARS-CoV-2 Vaccination Falguni Zarate MD Work Phone: [facility] 09-14-2019 influenza virus vaccine, unspecified formulation Falguni Zarate MD Work Phone: [facility] 08-28-2018 Influenza virus vaccine [facility] 09-14-2017 influenza, injectabl e, quadrivalent, preservative free [facility] 09-14-2017 influenza, seasonal, injectable [facility] Payers Date Payer Category Payer Self-pay [id number] 2024 Medicare [id number] 2024 Medicare [id number] 2021 [employer] Blue Shield BLUE ACCE PPO [id number] 2021 Unknown [id number]. 1.13.159.2. [id number] 2014 Unknown [id number]. [id number] 2013 Unknown [id number] 1959 Unknown [id number] 2.16.840.1.450098.3.579.2. 651 Unknown [id number] 2.16.840.1.452477.3.579.2. 462 Unknown [id number] 2.16.840.1.976049.3.579.2. 462 Unknown [id number] 2.16.840.1.968963.3.579.2. 462 Unknown [id number] 2.16.840.1.165941.3.579.2. 462 Unknown [id number] 2.16.840.1.930324.3.579.2. 462 Unknown [id number] 2.16.840.1.565679.3.579.2. 462 Unknown [id number] 2.16.840.1.299053.3.579.2. 462 Unknown [id number] 2.16.840.1.018039.3.579.2. 462 Unknown [id number] 2.840.1.595929.3.579.2. 462 Unknown [id number] 2.840.1.794921.3.579.2. 462 Unknown [id number] 2..840.1.135813.3.579.2. 462 Unknown [id number] 2.16.840.1.114063.3.579.2. 462 Unknown [id number] 2.16.840.1.240329.3.579.2. 462 Unknown [id number] 2.16840.1.876659.3.579.2. 462 Unknown [id number] 2.16.840.1.526155.3.579.2. 462 Unknown [id number] 2.16.840.1.479836.3.579.2. 462 Unknown [id number] 2.16.840.1.572311.3.579.2. 462 Unknown [id number] 2.16.840.1.320867.3.579.2. 462 Unknown [id number] 2.16.840.1.623959.3.579.2. 462 Unknown [id number] 2.16.840.1.925153.3.579.2. 462 Unknown [id number] 2.16.840.1.334917.3.579.2. 462 Unknown [id number] 2.16.840.1.104896.3.579.2. 462 Unknown [id number] 2.16.840.1.808307.3.579.2. 462 Unknown [id number] 2.16.840.1.888154.3.579.2. 462 Unknown [id number] 2.16.840.1.549494.3.579.2. 462 Unknown [id number] 2.16.840.1.148476.3.579.2. 462 Unknown [id number] 2.16.840.1.372916.3.579.2. 462 Unknown [id number] 2.16.840.1.038470.3.579.2. 462 Unknown [id number] 2.16.840.1.352168.3.579.2. 462 Social History Date Type Detail Facility Start: 11-26-2019 End: 12-24-2024 Tobacco smoking status WVIS Former smoker [facility] Start: 11-16-1974 End: 11-16-2016 History of tobacco use Current smoker [employer] Work Phone: Start: 11-26-2019 End: 12-19-2024 Cigarettes smoked current (pack per day) - Reported [facility] Start: 11-26-2019 End: 06-04-2025 Alcohol intake Lifetime non-drinker (finding) [employer] Work Phone: Start: 11-16-2019 End: 11-17-2019 History SDOH Alcohol Frequency 1 [employer] Work Phone: Start: 1960 Sex Assigned At Not on file [facility] [employer] Work Phone: Start: 09-28-2021 End: 09-08-2023 Tobacco smoking status WVIS Unknown if ever smoked [facility] Start: 11-25-2019 Rare [facility] Start: 11-25-2019 [facility] Start: 11-25-2019 Spouse/ Signif icant Other [facility] Start: 11-25-2019 Non-smoker [facility] Start: 1960 Sex Assigned At Male [facility] Start: 11-16-2019 End: 01-21-2025 Tobacco use and exposure Smokeless tobacco non-user [facility] Work Phone: Start: 02-12-2022 End: 01-05-2023 Exposure to SARS-CoV-2 (event) Not sure [facility] Start: 11-16-1974 End: 11-16-2016 History of tobacco use Cigarette Smoker [facility] Start: 03-09-2023 End: 12-19-2024 Tobacco use panel [facility] Start: 08-13-2022 Gender identity Identifies as male gender (finding) [facility] Start: 08-13-2022 Sexual orientation Heterosexual (fin ding) [facility] Start: 05-24-2022 End: 01-15-2025 Sex Male (finding) [facility] Start: 12-19-2024 Tobacco smoking stat us WVIS Never smoked tobacco [facility] Start: 09-24-2012 National Score (1-10 0), lower number is lower risk 69 [facility] Has the electric, [employer], oil, or water company threatened to shut off services in your home in past 12Mo No [facility] (I/We) worried wheth er (my/our) food would run out before (I/we) got money to buy more. Never true [facility] Medical Equipment Procedure Code Equipment Code Equipment Origin al Text Equipment Identifier Dates Abbo-Card 3369-4 0q Quadra Assura Mp [id number] Start: 11-18-2019 Abbo-Card 7122q Durata Sj4 [id number] Start: 11-18-2019 Abbo-Card 1457q Quartet [id number] Start: 11-18-2019 Abbo-Card 2088tc Tendril Sts [id number] Start: 11-18-2019 Chips Bone Graft Cancellous Bone 4-10 Mm Container 15 Cc Volume - [id number] Start: 12-20-2024 Graft Bone Sub 5 cc Dbm Putty Inert Reverse Phase Carrier [employer] - [id number] Start: 12-20-2024 Graft Bone Sub 1 0cc Dbm Putty Inert Reverse Phase [employer] - [id number] Start: 12-20-2024 [place] Oct Polyax ial Screw Sz 4mm X 20mm [id number] Start: 12-20-2024 [place] Oct Polyax ial Screw Ml 4.5mm X 30mm [id number] Start: 12-20-2024 [place] Oct Contou red Clifford 3.5mm X 100mm [id number] Start: 12-20-2024 Screw 3.5 X 14mm - [id number] Start: 12-20-[address] Spnl Oc t [place] Ns Lf - [id number] Start: 12-20-2024 ST COREY LEAD FDA Start: 11-19-2019 ST Corye lead FDA Start: 11-19-2019 St Corey Pacemaker FDA Start: 11-19-2019 St Corey lead FDA Start: 11-19-2019 ST COREY LEAD FDA Start: 11-19-2019 ST Corey lead FDA Start: 11-19-2019 St Corey Pacemaker FDA Start: 11-19-2019 St Corey lead FDA Start: 11-19-2019 ST COREY LEAD FDA Start: 11-19-2019 ST Corey lead FDA Start: 11-19-2019 St Corey Pacemaker FDA Start: 11-19-2019 St Corey lead FDA Start: 11-19-2019 ST COREY LEAD FDA Start: 11-19-2019 ST Corey lead FDA Start: 11-19-2019 [facility] Corey Pacemaker FDA Start: 11-19-2019 St Corey lead FDA Start: 11-19-2019 ST COREY LEAD FDA Start: 11-19-2019 ST Corey lead FDA Start: 11-19-2019 [facility] Corey Pacemaker FDA Start: 11-19-2019 St Corey lead FDA Start: 11-19-2019 ST COREY LEAD FDA Start: 11-19-2019 ST Corey lead FDA Start: 11-19-2019 [facility] Corey Pacemaker FDA Start: 11-19-2019 St Corey lead FDA Start: 11-19-2019 ST COREY LEAD FDA Start: 11-19-2019 ST Corey lead FDA Start: 11-19-2019 [facility] Corey Pacemaker FDA Start: 11-19-2019 St Corey lead FDA Start: 11-19-2019 Functional Status Date Assessment Result Facility 01-15-2025 Functional status Activity Abili ty With Assist of 1 [facility] Work Phone: 01-11-2025 Functional status Chair;Bedside Commode [facility] Work Phone: 12-26-2024 Functional status Activity Abili ty With Assist of 1 [facility] Work Phone: 12-25-2024 Functional status Patient Activity Bedres t [facility] Work Phone: 12-24-2024 Are you deaf, or do you have serious difficulty hearing No 12/24/2024 2:52 PM Maine Porter RN No [facility] 12-24-2024 Are you blind, or do you have serious difficulty seeing, even when wearing glasses No 12/24/2024 2:52 PM Miane Porter RN No [facility] 12-24-2024 Do you have serious difficulty walking or climbing stairs No 12/24/2024 2:52 PM Maine Porter RN No [facility] 12-24-2024 Do you have difficul ty dressing or bathing Yes 12/24/2024 2:52 PM Maine Porter RN Yes [facility] 12-24-2024 Because of a physica l, mental, or emotional condition, do you have difficulty doing errands alone such as visiting a physician's office or shopping Yes 12/24/2024 2:52 PM Maine Porter RN Yes [facility] 08-24-2022 Are you deaf, or do you have serious difficulty hearing No 08/24/2022 3:20 PM Susu Rucker, ROZINA No [facility] 08-24-2022 Are you blind, or do you have serious difficulty seeing, even when wearing glasses No 08/24/2022 3:20 PM Susu Rucker, ROZINA No [facility] 08-24-2022 Do you have serious difficulty walking or climbing stairs No 08/24/2022 3:20 PM Susu Rucker RN No [facility] 08-24-2022 Do you have difficul ty dressing or bathing No 08/24/2022 3:20 PM Susu Rucker RN No [facility] 08-24-2022 Because of a physica l, mental, or emotional condition, do you have difficulty doing errands alone such as visiting a physician's office or shopping No 08/24/2022 3:20 PM Susu Rucker RN No [facility] Mental Status Date Assessment Result Facility 01-15-2025 Cognitive function Voice/Name [facility] Work Phone: 12-26-2024 Cognitive function Voice/Name [facility] Work Phone: 12-24-2024 Because of a physica l, mental, or emotional condition, do you have serious difficulty concentrating, remembering, or making decisions Yes 12/24/2024 2:52 PM Maine Porter RN Yes [facility] 12-07-2024 Cognitive function Level Of Cons ciousness Awake;Alert;Appropriate;Fol lows Commands [facility] Work Phone: 08-24-2022 Because of a physica l, mental, or emotional condition, do you have serious difficulty concentrating, remembering, or making decisions No 08/24/2022 3:20 PM Susu Rucker RN No [facility] Clinical Notes 10-24-2019 to 08-07-2025 Note Date & Type Note Facility 08-07-2025 Discharge summary Note Date/Time August 07, 2025 7:00pm [facility] [address] [place] [address] / REHABILITATION SERVICES DISCHARGE SUMMARY MR#: [id number] Acct: [id number] Name: FRANK ZIMMER Rep #: [id number] : 1960 65 From: Cert. MEGHAN Simmons, OCS Referring Dr.: Dr. Reagan Soto MD Status: REG RCR Insurance: MEDICARE PART A B SELF PAY INSURANCE Discharge Summary D/C summary: It has been my pleasure to treat FRANK ZIMMER referred by Dr. Reagan Soto MD, with the diagnosis of IMPAIRED AMBULATION for a total of 22 visit(s). Discharge Date: 08/07/25 Please see the following information for a summary of their discharge status. Subjective Subjective: Patient feeling more confident walking ADL and light housework working on tractor Ambulates with cane Pain Bilateral Back: Pain Intensity (Out of 10): 4 BLE: Pain Intensity (Out of 10): 5 Overall Improvement % Improvement: 60 Objective Objective/Function: mild forward posture ,thoracic kyphosis ,rounded shoulders GAIT: ambulates Mod I 500 > 1/2 block , able to walk short distance w/o device unsteady NEURO: c/o paresthesia in right fingers ,and right leg ,light touch intact ,reflexes C5-6-7 1/3 ,3-4,L4-5,L5-S1 2/3 PALAPTION: UT/levator /scapular region AROM: BUE WFL ~ shoulder flexion 150 degrees MMT: BUE grossly 4/5 ( peak force) quads right 39.2 left 30.9 ,hamstrings 36.2 right ,left 44.3 ,hip flexion 19.1 right ,left 21.9 ,ankle 4-/5 CERVICAL ROM : flexion min ,extension MOD/severe ,lateral flexion mod ,rotation min/ mod loss BALANCE: fair+ with fww Goals Goal 1:: Patient to be I with HEP for strengthening Goal Progress: Goal Met Goal 2:: Patient to improve peak force quads/hams/hip by 5-10 # to improve function and gait ( new goal) Goal Progress: Goal Met Goal 3:: Patient to ambulate with FWW with 400 ft x 2 with supervision/mod I Goal Progress: Goal Met Goal 4:: Patient to improve LFES score by 5-10 points to improve QOL and function Goal Progress: Goal Met Goal 5:: Patient to improve CATSIB by 5 points to improve QOL and improve balance Goal Progress: Progressing Goal 6:: Patient to demonstrate 50% improvement with increase gait and function Goal Progress: Goal Met Plan Plan: D/C D/C Information Discharge Comments: hep d/c sentence: If there are questions or concerns regarding this patient's physical therapy, please feel free to call me at [phone]. Thank you for the referral of thispatient. Sincerely, Johnny North PT, Markus CHRISTAINSON, OCS Balance/Gait/Functional tests Balance/Special Test Scores CATSIB Score (Max score 120 seconds): 51 Lower Extremity Functional Score: 42 Improvement % Improvement: 60 <Electronically signed by Cert. MEGHAN Jacobs PT, OCS> 08/08/25 1418 CC: Dr. Reagan Soto MD ~ JLA Signed [facility] Work Phone: [phone] Discharge summary [facility] [address] [place] [address] / REHABILITATION SERVICES DISCHARGE SUMMARY MR#: [id number] Acct: [id number] Name: FRANK ZIMMER Rep #: [id number] : 1960 65 From: Cert. MEGHAN Simmons, OCS Referring Dr.: Dr. Reagan Soto MD Status: REG RCR Insurance: MEDICARE PART A B SELF PAY INSURANCE Discharge Summary D/C summary: It has been my pleasure to treat FRANK ZIMMER referred by Dr. Reagan Soto MD, with the diagnosis of IMPAIRED AMBULATION for a total of 22 visit(s). Discharge Date: 08/07/25 Please see the following information for a summary of their discharge status. Subjective Subjective: Patient feeling more confident walking ADL and light housework working on tractor Ambulates with cane Pain Bilateral Back: Pain Intensity (Out of 10): 4 BLE: Pain Intensity (Out of 10): 5 Overall Improvement % Improvement: 60 Objective Objective/Function: mild forward posture ,thoracic kyphosis ,rounded shoulders GAIT: ambulates Mod I 500 > 1/2 block , able to walk short distance w/o device unsteady NEURO: c/o paresthesia in right fingers ,and right leg ,light touch intact ,reflexes C5-6-7 1/3 ,3-4,L4-5,L5-S1 2/3 PALAPTION: UT/levator /scapular region AROM: BUE WFL ~ shoulder flexion 150 degrees MMT: BUE grossly 4/5 ( peak force) quads right 39.2 left 30.9 ,hamstrings 36.2 right ,left 44.3 ,hip flexion 19.1 right ,left 21.9 ,ankle 4-/5 CERVICAL ROM : flexion min ,extension MOD/severe ,lateral flexion mod ,rotation min/ mod loss BALANCE: fair+ with fww Goals Goal 1:: Patient to be I with HEP for strengthening Goal Progress: Goal Met Goal 2:: Patient to improve peak force quads/hams/hip by 5-10 # to improve function and gait ( new goal) Goal Progress: Goal Met Goal 3:: Patient to ambulate with FWW with 400 ft x 2 with supervision/mod I Goal Progress: Goal Met Goal 4:: Patient to improve LFES score by 5-10 points to improve QOL and function Goal Progress: Goal Met Goal 5:: Patient to improve CATSIB by 5 points to improve QOL and improve balance Goal Progress: Progressing Goal 6:: Patient to demonstrate 50% improvement with increase gait and function Goal Progress: Goal Met Plan Plan: D/C D/C Information Discharge Comments: hep d/c sentence: If there are questions or concerns regarding this patient's physical therapy, please feel free to call me at [phone]. Thank you for the referral of thispatient. Sincerely, Johnny North, PT, Cert MDT, OCS Balance/Gait/Functional tests Balance/Special Test Scores CATSIB Score (Max score 120 seconds): 51 Lower Extremity Functional Score: 42 Improvement % Improvement: 60 08/08/25 1419 CC: Dr. Reagan Soto MD ~ JLA Signed [facility]08-12-2025 History of Present illness Narrative* Lacey Mcdermott MD - 06/04/2025 2:00 PM EDT NEUROSURGERY FOLLOW UP OFFICE NOTE Lacey Mcdermott MD [facility] Date of visit: June 04, 2025 Patient Name: Mr.Barry Elle Zimmer Date of : 1960 Current Age: [age] year old Sex: male MRN/E# [id number] Last Office Visit: 03/04/2025 Chief Complaint: Patient presents with: Established Patient Past Medical/Surgical History: Frank Zimmer is a 64 year old, right handed male with a history of CAD and V-tach HPI: Mr. Zimmer presented to the office on 03/04/2025 when he was approximately 3 months after his posterior C2-T1 decompression and fusion for severe stenosis with myelopathy. He continued to make an excellent recovery, with improvement in his upper extremity pain, numbness, weakness, and strength. He was able to walk short distances with a walker now. His x-rays looked excellent and his incision was well-healed. I explained that he may wean out of his collar over the next week. He was already doingphysical therapy and will continue this. I will titrate down his gabapentin; I ordered 300 mg for him to take once daily for a month, then he may discontinue. He was advised to follow up in the office in 3 months with xrays for re- evaluation, prompting his visit today. The patient presents to the office today and reports some neck achiness after using his wheelchair.Denies pain in his upper extremities. Endorses continued paresthesia in right small finger. He reports an improvement in his mobility since surgery and participation in physical therapy. He has been utilizing a walker and wheelchair for mobility. Denies any falls. Denies fevers, chills or drainage from incision site. Overall, he is pleased with the outcome of his surgery thus far. He is here for evaluation and plan of care. Symptoms: Neck achiness, continued paresthesia to right small finger, utilizes walker and wheelchair PREVIOUS CONSERVATIVE TREATMENTS: Gabapentin Physical therapy at [facility] PREVIOUS SURGERY: SURGERY #1: C2-T1 PCDF 12/20/2024 Pre-Surgical Symptoms: progressive myelopathy, inability to walk PAIN EVALUATION No data found in the last 1 encounters. PAST MEDICAL HISTORY Diagnosis Date CAD (coronary artery disease) V-tach (HCC) PAST SURGICAL HISTORY Procedure Laterality Date INSERT/REPL DEFIB LEAD/GENER OTHR PAST SURGICAL HISTORY OF WARTS RIGHT FOOT PAST SURGICAL HISTORY OF NASAL SURGERY PCI/STENT FAMILY HISTORY Problem Relation Age of Onset Diabetes Father Heart Father HEART DISEASE Heart Mother VALVE REPAIRED Hypertension Mother ALLERGIES Allergen Reactions Bees ANAPHALACTIC REACTION Morphine Vomiting Current Outpatient Medications Medication Sig Dispense Refill traMADol (ULTRAM) 50 mg tablet Take 1 oral Twice a day for 28 Days tamsulosin (FLOMAX) 0.4 mg Take 1 capsule by mouth once daily. nitroglycerin sublingual (NITROQUICK) 0.4 mg SL tablet up to max of 3 total doses. If no relief after 1 dose, call 911. fluticasone propion-salmeterol 232-14 mcg/actuation INHALE 1 PUFF BY MOUTH EVERY 12 HOURS rinse mouth after every use DULoxetine (CYMBALTA) 60 mg capsule Take 1 capsule by mouth once daily. aspirin, enteric coated (ASPIRIN, ENTERIC COATED) 81 mg EC tablet Take 1 tablet by mouth once daily. Patient should start on December 25, 2024. carvedilol (COREG) 12.5 mg tablet Take 1 tablet by mouth two times a day with meals. 180 tablet amiodarone (PACERONE) 200 mg tablet Take 1 tablet by mouth once daily. 90 tablet 0 lisinopril (ZESTRIL) 5 mg tablet Take 1 tablet by mouth once daily. (Patient taking differently: Take 2.5 mg by mouth once daily.) 90 tablet 0 JARDIANCE 25 mg tablet Take 25 mg by mouth daily with breakfast. furosemide (LASIX) 20 mg tablet Take 20 mg by mouth once daily. gabapentin (NEURONTIN) 300 mg capsule Take 1 capsule by mouth once daily for 30 days. 30 capsule 0 gabapentin (NEURONTIN) 300 mg capsule Take 1 capsule by mouth every 8 hours for 30 days. 0 rosuvastatin (CRESTOR) 40 mg tablet TAKE 1 TABLET BY MOUTH EVERY DAY nightly No current facility-administered medications for this visit. REVIEW OF SYSTEMS Review of Systems Constitutional: Negative for diaphoresis, fatigue and fever. HENT: Negative for drooling and trouble swallowing. Eyes: Negative for visual disturbance. Respiratory: Negative for cough, chest tightness and shortness of breath. Cardiovascular: Negative for chest pain, palpitations and leg swelling. Gastrointestinal: Negative for constipation, diarrhea and nausea. Endocrine: Negative for cold intolerance and heat intolerance. Genitourinary: Negative for difficulty urinating and dysuria. Musculoskeletal: Positive for gait problem and neck pain. Negative for back pain. Skin: Negative for color change and pallor. Allergic/Immunologic: Negative for immunocompromised state. Neurological: Positive for weakness and numbness. Negative for seizures, speech difficulty and headaches. Hematological: Does not bruise/bleed easily. Psychiatric/Behavioral: Negative for agitation, behavioral problems and confusion. OBJECTIVE: BP 129/78 Pulse 60 Resp 16 SpO2 96% PHYSICAL EXAM: Mental State : Alert, memory function unremarkable. Attention span and concentration normal for patient's age. Speech normal, no receptive or expressive speech deficit. Recent and remote memory normal. Orientation : Oriented to person, place and time. Cranial Nerves : Grossly intact. Sensory: Normal Sensation in upper and lower extremities and trunk to touch and noxious stimuli. Motor: Normal muscle tone and bulk. No tremor or uncontrollable movements. No spasticity or tremor. Gait and Station: in wheelchair; can walk short distances with a walker STRENGTH: Upper Extremity Strength Exam Right Left Elbow Flexion 4+/5 4+/5 Elbow Extension 4+/5 4/5 Finger Flexion 4/5 4/5 Finger Extension 4/5 4/5 Finger Abduction 4/5 4/5 Lower Extremity Strength Exam Right Left Hip Flexion 4/5 4+/5 Knee Flexion 4/5 4/5 Knee Extension 4/5 4/5 Dorsiflexion 4+/5 4+/5 Plantarflexion 5/5 5/5 Data Review IMAGING STUDIES: XR CERVICAL 06/04/2025: Posterior fusion hardware from C2-T1 in good position. Assessment & Plan: Mr. Zimmer presents approximately 6 months after his posterior cervical decompression and fusion for severe cervical stenosis with myelopathy. He continues to make steady progress. His strength has improved significantly and he was able to walk short distances with a walker. He is working with physical therapy. He feels that his progress is slowing, but he is still making gains. His x-rays look excellent. I will renew his order for physical therapy today. He has a history of low back pain and lower extremity radiculopathy that is responded well to lumbar injections; he is cleared to resume this treatment if he desires from my standpoint. I will see him back in 6 months with x-rays to assesshis progress. All questions were answered. Attribution: The following portions of the patient's history were reviewed, confirmed, and updated as necessary:allergies, current medications, past family history, past medical history, past social history, past surgical history, problem list, HPI, and ROS obtained by others. Some elements may be copied from a previous office note and have been reviewed/updated where appropriate. All portions reflect current medical decision making from today. The clinical and radiographic findings as well as the risks, benefits and alternatives of treatmenthave been reviewed in detail with the patient. Advised to call the office if symptoms worsen or new symptoms develop. Patient expressed understanding and is in agreement with plan. Lacey Mcdermott MD [facility] Medical Decision Making: Problems: Moderate: 2+ stable chronic illnesses Data: Unique test result(s) reviewed: 2 Unique test(s) ordered: 1 Risk: Moderate: Moderate risk from testing/treatment Medical Decision Making Level: 4 - Moderate This note was partially generated using [employer] voice recognition system, and there may be some incorrect words, spellings, and punctuation that were not noted in checking the note before saving. documented in this encounterZ[facility] NoteHNO ID: [id number] Author: LACEY MCDERMOTT MD Service: ? Author Type: Physician Type: Progress Notes Filed: 06/04/2025 14:21 Note Text: NEUROSURGERY FOLLOW UP OFFICE NOTE Lacey Mcdermott MD [facility] Date of visit: June 04, 2025 Patient Name: Mr.Barry Elle Zimmer Date of : 1960 Current Age: [age] year old Sex: male MRN/E# [id number] Last Office Visit: 03/04/2025 Chief Complaint: Patient presents with: Established Patient Past Medical/Surgical History: Frank Zimmer is a 64 year old, right handed male with a history of CAD and V-tach HPI: Mr. Zimmer presented to the office on 03/04/2025 when he was approximately 3 months after his posterior C2-T1 decompression and fusion for severe stenosis with myelopathy. He continued to make an excellent recovery, with improvement in his upper extremity pain, numbness, weakness, and strength. He was able to walk short distances with a walker now. His x-rays looked excellent and his incision was well-healed. I explained that he may wean out of his collar over the next week. He was already doing physical therapy and will continue this. I will titrate down his gabapentin; I ordered 300 mg for him to take once daily for a month, then he may discontinue. He was advised to follow up in the office in 3 months with xrays for re-evaluation, prompting his visit today. The patient presents to the office today and reports some neck achiness after using his wheelchair. Denies pain in his upper extremities. Endorses continued paresthesia in right small finger. He reports an improvement in his mobility since surgery and participation in physical therapy. He has been utilizing a walker and wheelchair for mobility. Denies any falls. Denies fevers, chills or drainage from incision site. Overall, he is pleased with the outcome of his surgery thus far. He is here for evaluation and plan of care. Symptoms: Neck achiness, continued paresthesia to right small finger, utilizes walker and wheelchair PREVIOUS CONSERVATIVE TREATMENTS: Gabapentin Physical therapy at [facility] PREVIOUS SURGERY: SURGERY #1: C2-T1 PCDF 12/20/2024 Pre-Surgical Symptoms: progressive myelopathy, inability to walk PAIN EVALUATION No data found in the last 1 encounters. PAST MEDICAL HISTORY Diagnosis Date CAD (coronary artery disease) V-tach (HCC) PAST SURGICAL HISTORY Procedure Laterality Date INSERT/REPL DEFIB LEAD/GENER OTHR PAST SURGICAL HISTORY OF WARTS RIGHT FOOT PAST SURGICAL HISTORY OF NASAL SURGERY PCI/STENT FAMILY HISTORY Problem Relation Age of Onset Diabetes Father Heart Father HEART DISEASE Heart Mother VALVE REPAIRED Hypertension Mother ALLERGIES Allergen Reactions Bees ANAPHALACTIC REACTION Morphine Vomiting Current Outpatient Medications Medication Sig Dispense Refill traMADol (ULTRAM) 50 mg tablet Take 1 oral Twice a day for 28 Days tamsulosin (FLOMAX) 0.4 mg Take 1 capsule by mouth once daily. nitroglycerin sublingual (NITROQUICK) 0.4 mg SL tablet up to max of 3 total doses. If no relief after 1 dose, call 911. fluticasone propion-salmeterol 232-14 mcg/actuation INHALE 1 PUFF BY MOUTH EVERY 12 HOURS rinse mouth after every use DULoxetine (CYMBALTA) 60 mg capsule Take 1 capsule by mouth once daily. aspirin, enteric coated (ASPIRIN, ENTERIC COATED) 81 mg EC tablet Take 1 tablet by mouth once daily. Patient should start on December 25, 2024. carvedilol (COREG) 12.5 mg tablet Take 1 tablet by mouth two times a day with meals. 180 tablet amiodarone (PACERONE) 200 mg tablet Take 1 tablet by mouth once daily. 90 tablet 0 lisinopril (ZESTRIL) 5 mg tablet Take 1 tablet by mouth once daily. (Patient taking differently: Take 2.5 mg by mouth once daily.) 90 tablet 0 JARDIANCE 25 mg tablet Take 25 mg by mouth daily with breakfast. furosemide (LASIX) 20 mg tablet Take 20 mg by mouth once daily. gabapentin (NEURONTIN) 300 mg capsule Take 1 capsule by mouth once daily for 30 days. 30 capsule 0 gabapentin (NEURONTIN) 300 mg capsule Take 1 capsule by mouth every 8 hours for 30 days. 0 rosuvastatin (CRESTOR) 40 mg tablet TAKE 1 TABLET BY MOUTH EVERY DAY nightly No current facility-administered medications for this visit. REVIEW OF SYSTEMS Review of Systems Constitutional: Negative for diaphoresis, fatigue and fever. HENT: Negative for drooling and trouble swallowing. Eyes: Negative for visual disturbance. Respiratory: Negative for cough, chest tightness and shortness of breath. Cardiovascular: Negative for chest pain, palpitations and leg swelling. Gastrointestinal: Negative for constipation, diarrhea and nausea. Endocrine: Negative for cold intolerance and heat intolerance. Genitourinary: Negative for difficulty urinating and dysuria. Musculoskeletal: Positive for gait problem and neck pain. Negative for back pain. Skin: Negative for color change and pallor. Allergic/ (more content not included)...[facility]05-29-2025 History of Present illness Narrative* Falguni Zarate MD - 03/21/2025 3:00 PM EDT [facility] Cardiology Note Chief Complaint: Chief Complaint Patient presents with Annual Exam History of Present Illness: Frank Zimmer is a 64 y.o. male presents in follow-up. He has been doing well and then he had suddenonset of right-sided weakness. He was found to have cervical disc and arthritis that was causing nerve compression and he ended up having neurosurgery. Since then he has been improving and is going to therapy and is walking with a walker and has had a marked improvement in his symptoms. 1. The patient has a history of heart failure and left bundle branch block. In October 2019 we placed a PLAY THERAPIST-D and since then his ejection fraction has improved and he has not been admitted to the hospital for heart failure since that time. He currently denies increased shortness of breath, PND, orthopnea edema. His last ejection fraction in 2021 was up to 45%. 2. The patient has a history of ventricular arrhythmias. He had appropriate therapies in 2021 and we did an ablation of the ventricular tachycardia. He is also having PVCs. We then placed him on amiodarone. Since then he has done well with a low frequency of PVCs and no ventricular tachycardia episodes. 3. Patient has coronary disease. His stenting was years ago. He is having no angina and has had no recent revascularization or catheterization. He is followed at [facility] cardiology. Past Medical History: Medical History[1] Past Surgical History Surgical History[2] Family History Family History[3] Social History Social History[4] Allergies: Allergies[5] Medications: Current Medications[6] Review of Systems: Review of Systems Constitutional: Positive for activity change and fatigue. Negative for unexpected weight change. Recovering from neck surgery 12.20.24 / long recovery Respiratory: Negative for apnea and shortness of breath. Cardiovascular: Negative for chest pain, palpitations and leg swelling. Musculoskeletal: Positive for arthralgias, gait problem and neck pain. Uses walker for ambulation and w/c for long distances Neurological: Positive for weakness. Negative for dizziness and light-headedness. Physical Examination: Vitals: Vitals: 03/21/25 1502 BP: 136/68 BP Location: Left arm Patient Position: Sitting BP Cuff Size: Adult Pulse: 60 SpO2: 95% Weight: 190 lb (86.2 kg) Height: 6' 5 (1.956 m) Body mass index is 22.53 kg/m . Physical Exam Constitutional: Appearance: He is normal weight. He is not ill-appearing. Neck: Vascular: No JVD. Cardiovascular: Rate and Rhythm: Normal rate and regular rhythm. Heart sounds: No murmur heard. No gallop. Pulmonary: Effort: Pulmonary effort is normal. Breath sounds: Normal breath sounds. Musculoskeletal: Right lower leg: No edema. Left lower leg: No edema. Skin: General: Skin is warm and dry. Neurological: Mental Status: He is alert and oriented to person, place, and time. Motor: Weakness present. Gait: Gait abnormal. Psychiatric: Mood and Affect: Mood normal. Behavior: Behavior normal. Laboratory Tests: Lab Results Component Value Date WBC 8.9 10/30/2024 HGB 14.6 10/30/2024 HCT 44.7 10/30/2024 MCV 95.5 10/30/2024 PLT 225 10/30/2024 Lab Results Component Value Date GLUCOSE 123 (A) 10/30/2024 CALCIUM 9.3 10/30/2024 NA 139 10/30/2024 K 4.0 10/30/2024 CO2 29 10/30/2024 CL 107 10/30/2024 BUN 19 10/30/2024 CREATININE 0.76 02/23/2022 @LASTCMP@ Lab Results Component Value Date CHLPL 149 02/16/2022 CHLPL 134 05/23/2020 CHOL 118 11/17/2019 Lab Results Component Value Date TRIG 116 02/16/2022 TRIG 103 05/23/2020 TRIG 80 11/17/2019 Lab Results Component Value Date HDL 49 02/16/2022 HDL 42 05/23/2020 HDL 36 (L) 11/17/2019 Lab Results Component Value Date LDLCALC 77 02/16/2022 LDLCALC 71 05/23/20202021 SUMMARY: 1. Left ventricle: Systolic function is mildly decreased by visual assessment. The estimated ejection fraction is 45%. 2. Right ventricle: Pacer wire noted in the right ventricle. Systolic function is normal. Right ventricular systolic pressure is within the normal range. 3. Aorta: The aorta is normal. 4. No significant valve disease. 5. Pericardium, extracardiac: There is no pericardial effusion Interpretation Summary Scheduled Clinic PLAY THERAPIST-D evaluation. MAP is SP. Left sided device pocket is well healed. No new cardiac complaints. Reprogramming performed for threshold testing and to ensure adequate safety margin. Battery 22 % and estimated longevity = 1.1 years, ct = 9.1 seconds. RA Lead = 5 mV, 430 Ohms, 1.0 V @ 0.8 ms. AP = 79 %. RV Lead = 12 mV, 450 Ohms, 1.0 V @ 0.5 ms. LV Lead = 830 Ohms, 2.0 V @ 1.0 ms. BiVP = 90 %. HV = 71 Ohms. DDDR 60 PLAY THERAPIST-D. Interrogation of device reveals no events. Frequent PVCs noted during testing. PVC count 6.7 %. Intermittent CHB noted during check today. Decreased LV output to 3.0 V / 1.0 ms for adequate safety margin. Patient to see Dr. Zarate following check today. Discussed DIONISIO plan of care. Next (B) remote is on 07-02-25. Teodora Julian RN Assessment and Plan: 1. The patient is having no ventricular tachycardia. His PVC burden is low on the amiodarone. He will continue the medication as has had no side effects. His ID ICD function is normal and he has a little over a year left on the battery. 2. The patient has ischemic cardiomyopathy and heart failure. Since we placed a PLAY THERAPIST-D he has had significant improvement and no heart failure admissions. His ejection fraction actually went up to 45%. His programming is appropriate at this point and is 96% biventricular paced. 3. The patient has coronary disease. Has been having no chest pain. The patient will follow-up in a year. [1] Past Medical History: Diagnosis Date Back pain Bladder cancer (HCC) CAD, multiple vessel stents 2018 Chest pain Depression Diabetes mellitus (HCC) GERD (gastroesophageal reflux disease) Hyperlipidemia Hypertension [place] (mitral incompetence) Ventricular tachycardia, monomorphic (HCC) [2] Past Surgical History: Procedure Laterality Date A-V CARDIAC PACEMAKER INSERTION Left 11/19/2019 ICD ABLATION OF DYSRHYTHMIC FOCUS 02/22/2022 VT ablation BACK SURGERY BLADDER SURGERY CARDIAC CATHETERIZATION 08/23/2022 [facility] CORONARY ANGIOPLASTY 2019 CORONARY ANGIOPLASTY WITH STENT PLACEMENT 2016 [3] Family History Problem Relation Name Age of Onset Diabetes Sister Diabetes Father Diabetes Brother Diabetes Brother Heart attack Father x7 Heart attack Brother Pacemaker Brother with ICD [4] Social History Tobacco Use Smoking status: Former Current packs/day: 0.00 Average packs/day: 1.5 packs/day for 42.0 years (63.0 ttl pk-yrs) Types: Cigarettes Start date: 11/16/1974 Quit date: 11/16/2016 Years since quittin.3 Smokeless tobacco: Never Substance Use Topics Alcohol use: Never Drug use: Never Comment: Caffeine: none [5] Allergies Allergen Reactions Bee Venom Anaphylaxis Pt isn't sure if it was a bee or another type of insect. Morphine Nausea And Vomiting Other reaction(s): Vomiting [6] Current Outpatient Medications: amiodarone (Pacerone) 200 MG tablet, Take 1 tablet (200 mg) by mouth daily., Disp: 90 tablet, Rfl: 0 aspirin 81 MG EC tablet, Take 81 mg by mouth in the morning., Disp: , Rfl: carvedilol (Coreg) 25 MG tablet, TAKE 1 TABLET TWICE A DAY, Disp: 180 tablet, Rfl: 3 DULoxetine (Cymbalta) [address] capsule, Take 1 capsule by mouth daily., Disp: , Rfl: empagliflozin (Jardiance) 25 MG, Take 25 mg by mouth in the morning., Disp: , Rfl: furosemide (Lasix) 20 MG tablet, Take 20 mg by mouth in the morning., Disp: , Rfl: lisinopril 40 MG tablet, TAKE 1 TABLET IN THE MORNING, Disp: 90 tablet, Rfl: 1 nitroglycerin (Nitrostat) 0.4 MG SL tablet, up to max of 3 total doses. If no relief after 1 dose, call 911., Disp: , Rfl: rosuvastatin (Crestor) 40 MG tablet, TAKE 1 TABLET BY MOUTH EVERY DAY nightly, Disp: , Rfl: traMADol (Ultram) 50 MG tablet, Take by mouth 2 times daily., Disp: , Rfl: cyclobenzaprine (Flexeril) 10 MG tablet, Take 10 mg by mouth every 8 hours as needed. (Patient not taking: Reported on 03/21/2025), Disp: , Rfl: Meloxicam (MOBIC PO), Take by mouth 1 (one) time each day. (Patient not taking: Reported on 03/21/2025), Disp: , Rfl: metFORMIN XR (Glucophage-XR) 500 MG 24 hr tablet, Take 500 mg by mouth in the morning and 500 mg inthe evening. (Patient not taking: Reported on 03/21/2025), Disp: , Rfl: Mounjaro 5 MG/0.5ML solution pen-injector, INJECT 5 mg under skin weekly (Patient not taking: Reported on 03/21/2025), Disp: , Rfl: documented in this [facility]05-12-2025 History of Present illness Narrative* Lacey Mcdermott MD - 03/04/2025 2:15 PM EDT NEUROSURGERY POST-OP NOTE Lacey Mcdermott MD [facility] Date of visit: March 04, 2025 Patient Name: Mr.Barry Elle Zimmer Date of : 1960 Current Age: [age] year old Sex: male MRN/E# [id number] Last Office Visit: 01/31/2025 SURGERY: C2-T1 PCDF 12/20/2024 Pre-Surgical Symptoms: progressive myelopathy, inability to walk Past Medical/Surgical History: Mr. Zimmer is a 64 year old male with a past medical history of CAD and V-tach HPI: Patient is having their 10 week post operative visit. He was last seen in the office on 01/21/2025 for about a 4 week post operative visit when he was doing very well, with significant improvement in his preoperative myelopathic symptoms. The sensation in his legs was improving, as was his strength in his upper extremities. He spent some time in [facility] but was now home. He was wearing his cervical collar as directed. His incision was well-healed and his x-rays looked good. His strength was improving. I explained that the recovery from the out of compression that he had will take some time, but he was making excellent progress. He was advised that he should continue wearing his collar until her next visit. He was to follow up in 6 weeks time with xrays for re-evaluation, prompting his visit today. Patient feels that surgery went well and he has continued with improvement in his arm strength as well as the sensation in his legs. He is in a wheelchair for the visit but he has been walking with [employer] and is happy about that. He is very pleased with his progress this far. Incision: Healed Current Outpatient Medications Medication Sig Dispense Refill traMADol (ULTRAM) 50 mg tablet Take 1 oral Twice a day for 28 Days tamsulosin (FLOMAX) 0.4 mg Take 1 capsule by mouth once daily. nitroglycerin sublingual (NITROQUICK) 0.4 mg SL tablet up to max of 3 total doses. If no relief after 1 dose, call 911. fluticasone propion-salmeterol 232-14 mcg/actuation INHALE 1 PUFF BY MOUTH EVERY 12 HOURS rinse mouth after every use DULoxetine (CYMBALTA) 60 mg capsule Take 1 capsule by mouth once daily. aspirin, enteric coated (ASPIRIN, ENTERIC COATED) 81 mg EC tablet Take 1 tablet by mouth once daily. Patient should start on December 25, 2024. carvedilol (COREG) 12.5 mg tablet Take 1 tablet by mouth two times a day with meals. 180 tablet amiodarone (PACERONE) 200 mg tablet Take 1 tablet by mouth once daily. 90 tablet 0 lisinopril (ZESTRIL) 5 mg tablet Take 1 tablet by mouth once daily. 90 tablet 0 gabapentin (NEURONTIN) 300 mg capsule Take 1 capsule by mouth every 8 hours for 30 days. 0 JARDIANCE 25 mg tablet Take 25 mg by mouth daily with breakfast. furosemide (LASIX) 20 mg tablet Take 20 mg by mouth once daily. rosuvastatin (CRESTOR) 40 mg tablet TAKE 1 TABLET BY MOUTH EVERY DAY nightly No current facility-administered medications for this visit. Objective Review of Systems Constitutional: Negative for chills, fatigue and fever. HENT: Negative for ear pain, hearing loss and tinnitus. Eyes: Negative for photophobia, pain and visual disturbance. Respiratory: Negative for shortness of breath. Cardiovascular: Negative for chest pain. Gastrointestinal: Negative for constipation, diarrhea, nausea and vomiting. Endocrine: Negative for polydipsia, polyphagia and polyuria. Genitourinary: Negative for difficulty urinating, frequency and urgency. Musculoskeletal: Positive for neck stiffness. Negative for back pain, gait problem and neck pain. Skin: Negative for color change. Neurological: Positive for weakness. Negative for dizziness, light-headedness and numbness. Psychiatric/Behavioral: Negative for agitation and confusion. The patient is not nervous/anxious. PHYSICAL EXAM: Mental State : Alert, memory function unremarkable. Attention span and concentration normal for patient's age. Speech normal, no receptive or expressive speech deficit. Recent and remote memory normal. Orientation : Oriented to person, place and time. Cranial Nerves : Grossly intact. Sensory: Normal Sensation in upper and lower extremities and trunk to touch and noxious stimuli. Motor: Normal muscle tone and bulk. No tremor or uncontrollable movements. No spasticity or tremor. Gait and Station: in wheelchair; can walk short distances with a walker STRENGTH: Upper Extremity Strength Exam Right Left Elbow Flexion 4+/5 4+/5 Elbow Extension 4+/5 4/5 Finger Flexion 4/5 4/5 Finger Extension 4/5 4/5 Finger Abduction 4/5 4-/5 Lower Extremity Strength Exam Right Left Hip Flexion 4/5 4+/5 Knee Flexion 4/5 4/5 Knee Extension 4/5 4/5 Dorsiflexion 4+/5 4+/5 Plantarflexion 5/5 5/5 PAIN EVALUATION No data found in the last 1 encounters. Data Review: IMAGING STUDIES: XR CERVICAL 03/04/2025: Posterior fusion hardware from C2-T1 in good position. No translational instability. Assessment & Plan: Mr. Zimmer presents approximately 3 months after his posterior C2-T1 decompression and fusion for severe stenosis with myelopathy. He continues to make an excellent recovery, with improvement in his upper extremity pain, numbness, weakness, and strength. He is able to walk short distances with a wal ker now. His x-rays look excellent and his incision is well-healed. I explained that he may wean out of his collar over the next week. He is already doing physical therapy and will continue this. I will titrate down his gabapentin; I ordered 300 mg for him to take once daily for a month, then he may discontinue. I will see him back in 3 months with x-rays to assess his progress. All questions were answered. Attribution: The following portions of the patient's history were reviewed, confirmed, and updated as necessary:allergies, current medications, past family history, past medical history, past social history, past surgical history, problem list, HPI, and ROS obtained by others. Some elements may be copied from a previous office note and have been reviewed/updated where appropriate. All portions reflect current medical decision making from today. The clinical and radiographic findings as well as the risks, benefits and alternatives of treatmenthave been reviewed in detail with the patient. Advised to call the office if symptoms worsen or new symptoms develop. Patient expressed understanding and is in agreement with plan. Lacey Mcdermott MD [facility] This note was partially generated using [employer] voice recognition system, and there may be some incorrect words, spellings, and punctuation that were not noted in checking the note before saving. documented in this [facility] NoteHNO ID: [id number] Author: LACEY MCDERMOTT MD Service: ? Author Type: Physician Type: Progress Notes Filed: 03/04/2025 14:36 Note Text: NEUROSURGERY POST-OP NOTE Lacey Mcdermott MD [facility] Date of visit: March 04, 2025 Patient Name: Mr.Barry Elle Zimmer Date of : 1960 Current Age: [age] year old Sex: male MRN/E# [id number] Last Office Visit: 01/31/2025 SURGERY: C2-T1 PCDF 12/20/2024 Pre-Surgical Symptoms: progressive myelopathy, inability to walk Past Medical/Surgical History: Mr. Zimmer is a 64 year old male with a past medical history of CAD and V-tach HPI: Patient is having their 10 week post operative visit. He was last seen in the office on 01/21/2025 for about a 4 week post operative visit when he was doing very well, with significant improvement in his preoperative myelopathic symptoms. The sensation in his legs was improving, as was his strength in his upper extremities. He spent some time in [facility] but was now home. He was wearing his cervical collar as directed. His incision was well-healed and his x-rays looked good. His strength was improving. I explained that the recovery from the out of compression that he had will take some time, but he was making excellent progress. He was advised that he should continue wearing his collar until her next visit. He was to follow up in 6 weeks time with xrays for re-evaluation, prompting his visit today. Patient feels that surgery went well and he has continued with improvement in his arm strength as well as the sensation in his legs. He is in a wheelchair for the visit but he has been walking with a walker and is happy about that. He is very pleased with his progress this far. Incision: Healed Current Outpatient Medications Medication Sig Dispense Refill traMADol (ULTRAM) 50 mg tablet Take 1 oral Twice a day for 28 Days tamsulosin (FLOMAX) 0.4 mg Take 1 capsule by mouth once daily. nitroglycerin sublingual (NITROQUICK) 0.4 mg SL tablet up to max of 3 total doses. If no relief after 1 dose, call 911. fluticasone propion-salmeterol 232-14 mcg/actuation INHALE 1 PUFF BY MOUTH EVERY 12 HOURS rinse mouth after every use DULoxetine (CYMBALTA) 60 mg capsule Take 1 capsule by mouth once daily. aspirin, enteric coated (ASPIRIN, ENTERIC COATED) 81 mg EC tablet Take 1 tablet by mouth once daily. Patient should start on December 25, 2024. carvedilol (COREG) 12.5 mg tablet Take 1 tablet by mouth two times a day with meals. 180 tablet amiodarone (PACERONE) 200 mg tablet Take 1 tablet by mouth once daily. 90 tablet 0 lisinopril (ZESTRIL) 5 mg tablet Take 1 tablet by mouth once daily. 90 tablet 0 gabapentin (NEURONTIN) 300 mg capsule Take 1 capsule by mouth every 8 hours for 30 days. 0 JARDIANCE 25 mg tablet Take 25 mg by mouth daily with breakfast. furosemide (LASIX) 20 mg tablet Take 20 mg by mouth once daily. rosuvastatin (CRESTOR) 40 mg tablet TAKE 1 TABLET BY MOUTH EVERY DAY nightly No current facility-administered medications for this visit. Objective Review of Systems Constitutional: Negative for chills, fatigue and fever. HENT: Negative for ear pain, hearing loss and tinnitus. Eyes: Negative for photophobia, pain and visual disturbance. Respiratory: Negative for shortness of breath. Cardiovascular: Negative for chest pain. Gastrointestinal: Negative for constipation, diarrhea, nausea and vomiting. Endocrine: Negative for polydipsia, polyphagia and polyuria. Genitourinary: Negative for difficulty urinating, frequency and urgency. Musculoskeletal: Positive for neck stiffness. Negative for back pain, gait problem and neck pain. Skin: Negative for color change. Neurological: Positive for weakness. Negative for dizziness, light-headedness and numbness. Psychiatric/Behavioral: Negative for agitation and confusion. The patient is not nervous/anxious. PHYSICAL EXAM: Mental State : Alert, memory function unremarkable. Attention span and concentration normal for patient's age. Speech normal, no receptive or expressive speech deficit. Recent and remote memory normal. Orientation : Oriented to person, place and time. Cranial Nerves : Grossly intact. Sensory: Normal Sensation in upper and lower extremities and trunk to touch and noxious stimuli. Motor: Normal muscle tone and bulk. No tremor or uncontrollable movements. No spasticity or tremor. Gait and Station: in wheelchair; can walk short distances with a walker STRENGTH: Upper Extremity Strength Exam Right Left Elbow Flexion 4+/5 4+/5 Elbow Extension 4+/5 4/5 Finger Flexion 4/5 4/5 Finger Extension 4/5 4/5 Finger Abduction 4/5 4-/5 Lower Extremity Strength Exam Right Left Hip Flexion 4/5 4+/5 Knee Flexion 4/5 4/5 Knee Extension 4/5 4/5 Dorsiflexion 4+/5 4+/5 Plantarflexion 5/5 5/5 PAIN EVALUATION No data found in the last 1 encounters. Data Review: IMAGING STUDIES: XR CERVICAL 03/04/2025: Posterior (more content not included)...[facility]05-12-2025 History of Present illness Narrative* Lex Rollins RT(Earnestine) - 03/04/2025 2:00 PM EDT Radiology Service Progress Note PATIENT NAME: Frank Zimmer DATE OF SERVICE: March 04, 2025 TIME: 2:02 PM PATIENT IDENTITY VERIFICATION COMPLETED USING TWO (2) IDENTIFIERS: Name and Date of confirmedby patient verbally. FALL SCREENING: Has the patient had 2 falls in the last year or 1 fall with injury or currently using an Ambulatory Assistive Device (Walker, Cane, Wheelchair, Crutches, etc.)? No PATIENT GENDER DATA: Assigned male at PATIENT RELEVANT IMPLANT DATA REVIEWED: Not Applicable PATIENT PRESENTS WITH AN IMPLANTABLE OR ATTACHED SENIOR MAINFRAME PROGRAMMER ANALYST: No RADIOLOGY DEPARTMENT: General X-ray: Exam(s) Completed: Spine X-Ray(s): Cervical AP / LAT / FLEX-EXT PERIPHERAL IV DATA: Not applicable SIGNED BY: RT Kentrell(Earnestine) March 04, 2025 2:02 PM documented in this encounterZ[facility]05-12-2025 NoteHNO ID: [id number] Author: LEX ROLLINS RT(R) Service: Radiology Author Type: Technologist Type: Progress Notes Filed: 03/04/2025 14:02 Note Text: Radiology Service Progress Note PATIENT NAME: Frank Zimmer DATE OF SERVICE: March 04, 2025 TIME: 2:02 PM PATIENT IDENTITY VERIFICATION COMPLETED USING TWO (2) IDENTIFIERS: Name and Date of confirmed by patient verbally. FALL SCREENING: Has the patient had 2 falls in the last year or 1 fall with injury or currently using an Ambulatory Assistive Device (Walker, Cane, Wheelchair, Crutches, etc.)? No PATIENT GENDER DATA: Assigned male at PATIENT RELEVANT IMPLANT DATA REVIEWED: Not Applicable PATIENT PRESENTS WITH AN IMPLANTABLE OR ATTACHED SENIOR MAINFRAME PROGRAMMER ANALYST: No RADIOLOGY DEPARTMENT: General X-ray: Exam(s) Completed: Spine X-Ray(s): Cervical AP / LAT / FLEX-EXT PERIPHERAL IV DATA: Not applicable SIGNED BY: RT Kentrell(R) March 04, 2025 2:02 [facility]05-05-2025 Telephone encounter Note* Telephone Encounter - Lauren Angela RN - 02/25/2025 8:47 AM EDT [id number] Miscellaneous Notes* Telephone Encounter - Lauren Angela RN - 02/25/2025 8:47 AM EDT [facility] documented in this [facility]04-10-2025 Telephone encounter Note* Telephone Encounter - Angelique Brothers RN - 01/31/2025 3:13 PM EDT Kimmy with [facility] called with concerns about Frank's pain and the fact that he had not been takingpain medications. She was concerned that it was interfering with physical therapy. Called and spoke with Frank, who is s/p C2-T1 PCDF on 12/20/2024. He states that as far as his neck goes he rarely has pain in that region and if he does, the Gabapentin that he takes helps. He notes all of his pain to be located in the low back at this time and it is the most bothersome there. I advised patient that because this pain is not related to the surgery that was performed, we are unable to provide him with a prescription for that. Recommended he reach out to his PCP in the meantime to discuss options. Recommended patient use tylenol and heat/ice for management of the pain. He was thankful for the call. Angelique Brothers RN [facility]04-10-2025 Miscellaneous Notes* Telephone Encounter - Angelique Brothers RN - 01/31/2025 3:13 PM EDT Kimmy with [facility] called with concerns about Frank's pain and the fact that he had not been takingpain medications. She was concerned that it was interfering with physical therapy. Called and spoke with Frank, who is s/p C2-T1 PCDF on 12/20/2024. He states that as far as his neck goes he rarely has pain in that region and if he does, the Gabapentin that he takes helps. He notes all of his pain to be located in the low back at this time and it is the most bothersome there. I advised patient that because this pain is not related to the surgery that was performed, we are unable to provide him with a prescription for that. Recommended he reach out to his PCP in the meantime to discuss options. Recommended patient use tylenol and heat/ice for management of the pain. He was thankful for the call. Angelique Brothers RN documented in this encounterZanesville City Hospital03-31-2025 History of Present illness Narrative* Lacey Mcdermott MD - 01/21/2025 2:00 PM EDT NEUROSURGERY POST-OP NOTE Lacey Mcdermott MD [facility] Date of visit: January 21, 2025 Patient Name: Mr.Barry Elle Zimmer Date of : 1960 Current Age: [age] year old Sex: male MRN/E# [id number] Last Office Visit: 01/08/2025 SURGERY: C2-T1 PCDF 12/20/2024 Pre-Surgical Symptoms: progressive myelopathy, inability to walk Past Medical/Surgical History: Mr. Zimmer is a 64 year old male with a past medical history of CAD and V-tach HPI: Patient is having their 1 month post operative visit. Spoke to [facility] on 01/08/2025 who wished to remove sola. Verified that incision was healing well and did not show signs of infection/dehiscence. [place] OK to be removed by staff at [facility]. Patient feels that surgery went well and he has noticed some strength improvements in his legs and has been working with physical therapy and is able to stand and take a couple steps. He has noticed some swelling in the feet, recommended that he reach out to PCP. He is pleased with his progress andhas been wearing his cervical collar. Shantanu removed his sola, incision healing well. Incision: Healed Current Outpatient Medications Medication Sig Dispense Refill aspirin, enteric coated (ASPIRIN, ENTERIC COATED) 81 mg EC tablet Take 1 tablet by mouth once daily. Patient should start on December 25, 2024. carvedilol (COREG) 12.5 mg tablet Take 1 tablet by mouth two times a day with meals. 180 tablet amiodarone (PACERONE) 200 mg tablet Take 1 tablet by mouth once daily. 90 tablet 0 lisinopril (ZESTRIL) 5 mg tablet Take 1 tablet by mouth once daily. 90 tablet 0 gabapentin (NEURONTIN) 300 mg capsule Take 1 capsule by mouth every 8 hours for 30 days. 0 JARDIANCE 25 mg tablet Take 25 mg by mouth daily with breakfast. furosemide (LASIX) 20 mg tablet Take 20 mg by mouth once daily. rosuvastatin (CRESTOR) 40 mg tablet TAKE 1 TABLET BY MOUTH EVERY DAY nightly No current facility-administered medications for this visit. Objective Review of Systems PHYSICAL EXAM: Mental State : Alert, memory function unremarkable. Attention span and concentration normal for patient's age. Speech normal, no receptive or expressive speech deficit. Recent and remote memory normal. Orientation : Oriented to person, place and time. Cranial Nerves : Grossly intact. Sensory: Normal Sensation in upper and lower extremities and trunk to touch and noxious stimuli. Motor: Normal muscle tone and bulk. No tremor or uncontrollable movements. No spasticity or tremor. Gait and Station: in wheelchair STRENGTH: Upper Extremity Strength Exam Right Left Elbow Flexion 4+/5 4+/5 Elbow Extension 4/5 4/5 Finger Flexion 4/5 4/5 Finger Extension 4/5 4/5 Finger Abduction 4-/5 4-/5 Lower Extremity Strength Exam Right Left Hip Flexion 4/5 4/5 Knee Flexion 4/5 4/5 Knee Extension 4/5 4/5 Dorsiflexion 4+/5 4+/5 Plantarflexion 5/5 5/5 WOUND ASSESSMENT: Healed PAIN EVALUATION No data found in the last 1 encounters. Data Review: IMAGING STUDIES: XR CERVICAL 01/21/2025: Posterior fusion hardware from C2-T1 in good position. Assessment & Plan: Mr. Zimmer presents approximately 6 weeks after his posterior cervical decompression and fusion forsevere stenosis with profound myelopathy. He is doing very well, with significant improvement in his preoperative myelopathic symptoms. The sensation in his legs is improving, as is his strength in his upper extremities. He spent some time in [facility] but is now home. He is wearing his cervical collar as directed. His incision is well-healed and his x- rays look good. His strength is improving. I explained that the recovery from the out of compression that he had will take some time, but heis making excellent progress. He should continue wearing his collar until her next visit. I will check flexion-extension x-rays in 6 weeks. He would also like me to look at his lumbar spine at the next visit, which we will address later once he heals more from his cervical surgery. All questions answered. Attribution: The following portions of the patient's history were reviewed, confirmed, and updated as necessary:allergies, current medications, past family history, past medical history, past social history, past surgical history, problem list, HPI, and ROS obtained by others. Some elements may be copied from a previous office note and have been reviewed/updated where appropriate. All portions reflect current medical decision making from today. The clinical and radiographic findings as well as the risks, benefits and alternatives of treatmenthave been reviewed in detail with the patient. Advised to call the office if symptoms worsen or new symptoms develop. Patient expressed understanding and is in agreement with plan. Lacey Mcdermott MD [facility] This note was partially generated using [employer] voice recognition system, and there may be some incorrect words, spellings, and punctuation that were not noted in checking the note before saving. documented in this encounterZanesville City Hospital03-31-2025 History of Present illness Narrative* Rosendo Almonte RT(R) - 01/21/2025 2:00 PM EDT Radiology Service Progress Note PATIENT NAME: Frank Zimmer DATE OF SERVICE: January 21, 2025 TIME: 1:28 PM PATIENT IDENTITY VERIFICATION COMPLETED USING TWO (2) IDENTIFIERS: Name and Date of confirmedby patient verbally. FALL SCREENING: Has the patient had 2 falls in the last year or 1 fall with injury or currently using an Ambulatory Assistive Device (Walker, Cane, Wheelchair, Crutches, etc.)? No PATIENT GENDER DATA: PATIENT RELEVANT IMPLANT DATA REVIEWED: Not Applicable PATIENT PRESENTS WITH AN IMPLANTABLE OR ATTACHED SENIOR MAINFRAME PROGRAMMER ANALYST: No RADIOLOGY DEPARTMENT: General X-ray: Exam(s) Completed: Spine X-Ray(s): Cervical AP / LAT PERIPHERAL IV DATA: Not applicable SIGNED BY: RT Radha(R) January 21, 2025 1:28 PM [facility] NoteHNO ID: [id number] Author: LACEY MCDERMOTT MD Service: ? Author Type: Physician Type: Progress Notes Filed: 01/21/2025 14:27 Note Text: NEUROSURGERY POST-OP NOTE Lacey Mcdermott MD [facility] Date of visit: January 21, 2025 Patient Name: Mr.Barry Elle Zimmer Date of : 1960 Current Age: [age] year old Sex: male MRN/E# [id number] Last Office Visit: 01/08/2025 SURGERY: C2-T1 PCDF 12/20/2024 Pre-Surgical Symptoms: progressive myelopathy, inability to walk Past Medical/Surgical History: Mr. Zimmer is a 64 year old male with a past medical history of CAD and V-tach HPI: Patient is having their 1 month post operative visit. Spoke to [facility] on 01/08/2025 who wished to remove sola. Verified that incision was healing well and did not show signs of infection/dehiscence. Sola OK to be removed by staff at [facility]. Patient feels that surgery went well and he has noticed some strength improvements in his legs and has been working with physical therapy and is able to stand and take a couple steps. He has noticed some swelling in the feet, recommended that he reach out to PCP. He is pleased with his progress and has been wearing his cervical collar. [facility] removed his sola, incision healing well. Incision: Healed Current Outpatient Medications Medication Sig Dispense Refill aspirin, enteric coated (ASPIRIN, ENTERIC COATED) 81 mg EC tablet Take 1 tablet by mouth once daily. Patient should start on December 25, 2024. carvedilol (COREG) 12.5 mg tablet Take 1 tablet by mouth two times a day with meals. 180 tablet amiodarone (PACERONE) 200 mg tablet Take 1 tablet by mouth once daily. 90 tablet 0 lisinopril (ZESTRIL) 5 mg tablet Take 1 tablet by mouth once daily. 90 tablet 0 gabapentin (NEURONTIN) 300 mg capsule Take 1 capsule by mouth every 8 hours for 30 days. 0 JARDIANCE 25 mg tablet Take 25 mg by mouth daily with breakfast. furosemide (LASIX) 20 mg tablet Take 20 mg by mouth once daily. rosuvastatin (CRESTOR) 40 mg tablet TAKE 1 TABLET BY MOUTH EVERY DAY nightly No current facility-administered medications for this visit. Objective Review of Systems PHYSICAL EXAM: Mental State : Alert, memory function unremarkable. Attention span and concentration normal for patient's age. Speech normal, no receptive or expressive speech deficit. Recent and remote memory normal. Orientation : Oriented to person, place and time. Cranial Nerves : Grossly intact. Sensory: Normal Sensation in upper and lower extremities and trunk to touch and noxious stimuli. Motor: Normal muscle tone and bulk. No tremor or uncontrollable movements. No spasticity or tremor. Gait and Station: in wheelchair STRENGTH: Upper Extremity Strength Exam Right Left Elbow Flexion 4+/5 4+/5 Elbow Extension 4/5 4/5 Finger Flexion 4/5 4/5 Finger Extension 4/5 4/5 Finger Abduction 4-/5 4-/5 Lower Extremity Strength Exam Right Left Hip Flexion 4/5 4/5 Knee Flexion 4/5 4/5 Knee Extension 4/5 4/5 Dorsiflexion 4+/5 4+/5 Plantarflexion 5/5 5/5 WOUND ASSESSMENT: Healed PAIN EVALUATION No data found in the last 1 encounters. Data Review: IMAGING STUDIES: XR CERVICAL 01/21/2025: Posterior fusion hardware from C2-T1 in good position. Assessment AND Plan: Mr. Zimmer presents approximately 6 weeks after his posterior cervical decompression and fusion for severe stenosis with profound myelopathy. He is doing very well, with significant improvement in his preoperative myelopathic symptoms. The sensation in his legs is improving, as is his strength in his upper extremities. He spent some time in [facility] but is now home. He is wearing his cervical collar as directed. His incision is well-healed and his x-rays look good. His strength is improving. I explained that the recovery from the out of compression that he had will take some time, but he is making excellent progress. He should continue wearing his collar until her next visit. I will check flexion-extension x-rays in 6 weeks. He would also like me to look at his lumbar spine at the next visit, which we will address later once he healsmore from his cervical surgery. All questions answered. Attribution: The following portions of the patient's history were reviewed, confirmed, and updated as necessary: allergies, current medications, past family history, past medical history, past social history, past surgical history, problem list, HPI, and ROS obtained by others. Some elements may be copied from a previous office note and have been reviewed/updated where appropriate. All portions reflect current medical decision making from today. The clinical and radiographic findings as well as the risks, benefits and alternatives of treatment have been reviewed in detail with the patient. Advised to call the office if symptoms worsen or new symptoms develop. Patient expressed understanding and is in a (more content not included)...[facility]03-31-2025 NoteHNO ID: [id number] Author: ROSENDO ALMONTE RT(R) Service: Radiology Author Type: Technologist Type: Progress Notes Filed: 01/21/2025 13:28 Note Text: Radiology Service Progress Note PATIENT NAME: Frank Zimmer DATE OF SERVICE: January 21, 2025 TIME: 1:28 PM PATIENT IDENTITY VERIFICATION COMPLETED USING TWO (2) IDENTIFIERS: Name and Date of confirmed by patient verbally. FALL SCREENING: Has the patient had 2 falls in the last year or 1 fall with injury or currently using an Ambulatory Assistive Device (Walker, Cane, Wheelchair, Crutches, etc.)? No PATIENT GENDER DATA: PATIENT RELEVANT IMPLANT DATA REVIEWED: Not Applicable PATIENT PRESENTS WITH AN IMPLANTABLE OR ATTACHED SENIOR MAINFRAME PROGRAMMER ANALYST: No RADIOLOGY DEPARTMENT: General X-ray: Exam(s) Completed: Spine X-Ray(s): Cervical AP / LAT PERIPHERAL IV DATA: Not applicable SIGNED BY: RT Radha(R) January 21, 2025 1:28 [facility]03-25-2025 Discharge summary Author Saumya Lovelacesamantha [facility] Note Date/Time January 15, 2025 8:4 9am [facility] Medical Records Department [address] [place] [address] Instructions for Home/Discharge Instructions 01/14/25 1518 MR#: [id number] Acct: [id number] Name: FRANK ZIMMER Rep #:[id number] : 1960 64 From: Saumya Bobo DO PCP: Dr. Reagan Soto MD Status:AD M IN Discharge Instructions Diet Discharge Diet: - (Low-fat, low-salt, carbohydrates consistent) DC O2, CPAP, BIPAP needs Home O2 Discharge instructions: No Dressing / Incision Discharge Activity: May Not Drive and Use Walker Weight Bearing Status: Full weight bearing Keep extremity elevated above heart level: Legs Dressing / Incision Call your doctor if your incision/area has: Continuous Slow Oozing, Sudden Increased Bleeding, Increased Pain/ Swelling, Increased Redness and Foul Smelling Discharge Call your doctor if you observe: Fever of 101 or Higher, Inability to have a bowel movement, Shortness of breath, Dizziness, Fainting spells, Swelling in theankles, Chest pain, Increased palpitations (irregular heartbeat), Calf discomfort and Uncontrolled pain Suture Line Care: Avoid Pulling/Pushing and Avoid Pinching/Bending Change Dressing in: 1 day Cleanse incision/area with: Soap & Water and Keep Dressing Clean & Dry Catheter: - (Can use the leg bag or the large bag with the Fernandez catheter. The large bag is probably better at night because it holds more. ) Additional Dressing/Incision Instructions:: Cleanse the incision daily with soapand water and then cover with a dry dressing. Remove the cervical collar ONLY when cleaning and changing dressing. The surgeon will tell you when you can discontinue the rigid collar. Follow Up Care When: you have multiple appts that have been scheduled for you. They are listedat the end of this document. Test Results: Test results from this visit will be discussed in further detail at your follow- up appointment, if applicable. Discharge Plan Admission Admit Date/Time: 12/24/24 16:25 Primary Reason for Your Visit: DEBILITY DUE TO CERVICAL LAMINECTOMY AND FUSION. Attending Provider: Saumya Bobo Primary Care Provider: Reagan Soto Instructions Patient Instructions: Caring for Your Incision, COPD: Using Inhalers, Chronic Lung Disease Avoid These, ED Urinary Retention, Male Additional Instructions / Restrictions: 1. Your chest XRAY and CT scan of the chest shows changes consistent with emphysema. you also have multiple pulmonary nodules. there is a 1 cm nodule inthe base of the left lung. you will need to have a follow up CT of the chest in3 months. I am referring you to a lung specialist to evaluate you for COPD/emphysema and to follow the pulmonary nodules. You will be seeing Dr. Chandra Frazier in April. He will likely want you to have pulmonary function tests. You will be due for the repeat CT scan of the chest in March. you had the initial CT of the chest on 12/28/24. Dr. Soto can order a follow up CT scan for you or you can wait until you see Dr. Frazier. You are being discharged on 2different inhalers. You will continue to use these inhalers as directed at discharge. Always rinse you mouth after using the inhalers. I have given you ahandout that discusses the triggers for an acute exacerbation of COPD. Please become familiar with the triggers and avoid them. I think the trigger for the exacerbations you had in the hospital was the plants in your room. 2. Make sure your checks the incision every day. If there is increasing redness around the incision, ANY opening of the skin, increased swelling around the incision or any discharge call your doctor for instructions about what to do. 3. Continue wearing the cervical collar at all times EXCEPT when you are cleaning the area and changing the dressing. Dr. Mcdermott will tell you when you can start weaning off the collar. 4. DO NOT TAKE ANY OVER THE COUNTER MEDICATIONS LIKE MOTRIN, ADVIL, ALLEVE, ETC. These medications are called NSAID's and then can impair the bone fusion. If you have any doubt about and over the counter medication ask the pharmacist if is a NSAID. You can take Tylenol and Oxycodone. 5. you are going to need to follow up with pain management for the low back pain. 6. You have been off Metformin while on rehab. Your Blood sugars are well controlled on Jardiance alone. If you stick to the same diet you have been eating while on rehab your blood sugars should remain controlled. Check your blood sugars at home and keep a record to take to Dr. Soto at your next appt. Jardiance in addition to controlling blood sugars helps to prevent progression of kidney disease yoav to diabetes and it also helps with patients with a history of heart failure. 7. you may need to take a stool softener when you get home. Sugar Free Metamucil or MiraLAX both work well and are available over the counter. 8. I think you would benefit from psychotherapy with a home health care social worker or a psychologist. You have anxiety and depression and you have a lot going on in your life that keeps you anxious. You need to learn how to deal with these issues without decompensating. A therapist can help you work through this. 9. If you have any questions after leaving rehab please do not hesitate to call. OFFICE: [phone] CELL: [phone] NURSES STATION ON REHAB: [phone] Discharge Orders/Prescriptions Prescriptions: New carvedilol 12.5 mg Tablet 12.5 mg PO BIDCM Qty: 60 0RF amiodarone 200 mg Tablet 200 mg PO BREAKFAST Qty: 30 0RF acetaminophen 500 mg Tablet 1,000 mg PO Q8 Qty: 180 0RF Rx Instructions: 2 tabs every 8 hours for pain control lisinopril 2.5 mg Tablet 2.5 mg PO DAILY Qty: 30 0RF cholecalciferol (vitamin D3) 125 mcg (5,000 unit) Capsule 125 mcg PO DAILY Qty: 30 0RF duloxetine 30 mg Capsule,Delayed Release(Dr/Ec) 30 mg PO DAILY Qty: 30 0RF fluticasone propion-salmeterol 232-14 mcg/actuation Aerosol Powdr Breath Activated 1 inh inhalation Q12 Qty: 1 0RF Rx Instructions: Rinse your mouth after every use. oxycodone 5 mg Tablet 10 mg PO 0700,2200 7 Days Qty: 28 0RF Rx Instructions: take 1-2 tabs every 4 hours as needed for pain. 1 tab if pain is 3-5 and 2 tabs if pain is > 5 tizanidine 2 mg Tablet 2 mg PO BID Qty: 14 0RF tamsulosin 0.4 mg Capsule 0.8 mg PO DAILY@1730 Qty: 60 0RF Rx Instructions: 2 tabs daily with supper. pantoprazole 40 mg Tablet,Delayed Release (Dr/Ec) 40 mg PO DAILY Qty: 30 0RF Incruse Ellipta 62.5 mcg/actuation Blister With Device 62.5 mcg inhalation DAILY Qty: 1 0RF Rx Instructions: 1 inhalation daily Continued aspirin 81 MG tablet 81 mg PO DAILY@0800 0RF gabapentin 300 mg capsule 300 mg PO Q8H Qty: 90 0RF rosuvastatin 40 mg tablet 40 mg PO QHS Qty: 30 0RF Jardiance 25 mg tablet 25 mg PO DAILY Qty: 30 0RF furosemide [Lasix] 20 mg tablet 20 mg PO DAILY Qty: 90 3RF Discontinued carvedilol 25 mg tablet 12.5 mg PO BID metformin 500 mg tablet extended release 24 hr 500 mg PO BID Patient Comments: Take 1 tablet by mouth twice a day amiodarone 400 mg tablet 200 mg PO DAILY oxycodone 5 mg tablet 5 - 10 mg PO Q4H PRN (Reason: pain) lisinopril 40 mg tablet 5 mg PO DAILY Referrals / Follow Up: Lacey Mcdermott [Other] - In 1 Week (office will call to schedule appointment ) X-Ray [Other] - In 1 Week (office will call to make appointment ) Chandra Frazier DO [Med Staff - Active Staff] - 04/25/25 10:45 am (COPD) Dharmesh Kohli MD [Med Staff - Active Staff] - 01/17/25 2:15 pm Reagan Soto MD [Primary Care Provider] - 01/16/25 9:30 am (Needs appt [facility] or [facility] cannot start until pt is seen in the office) Disposition Disposition (needs filled in before D/C Order can be placed): Home Health Service 01/15/25 0849<Electronically signed by Saumya Bobo DO>Saumya Bobo DO CC: Dr. Reagan Soto MD ~ Signed [facility] Work Phone: [phone]) 495-923203-25-2025 [facility]03-25-2025 Discharge summary [facility] Medical Records Department [address] [place] [address] Instructions for Home/Discharge Instructions 01/14/25 1518 MR#: [id number] Acct: [id number] Name: FRANK ZIMMER Rep #:[id number] : 1960 64 From: Saumya Bobo DO PCP: Dr. Reagan Soto MD Status:AD M IN Discharge Instructions Diet Discharge Diet: - (Low-fat, low-salt, carbohydrates consistent) DC O2, CPAP, BIPAP needs Home O2 Discharge instructions: No Dressing / Incision Discharge Activity: May Not Drive and Use Walker Weight Bearing Status: Full weight bearing Keep extremity elevated above heart level: Legs Dressing / Incision Call your doctor if your incision/area has: Continuous Slow Oozing, Sudden Increased Bleeding, Increased Pain/ Swelling, Increased Redness and Foul Smelling Discharge Call your doctor if you observe: Fever of 101 or Higher, Inability to have a bowel movement, Shortness of breath, Dizziness, Fainting spells, Swelling in theankles, Chest pain, Increased palpitations(irregular heartbeat), Calf discomfort and Uncontrolled pain Suture Line Care: Avoid Pulling/Pushing and Avoid Pinching/Bending Change Dressing in: 1 day Cleanse incision/area with: Soap & Water and Keep Dressing Clean & Dry Catheter: - (Can use the leg bag or the large bag with the Fernandez catheter. The large bag is probably better at night because it holds more. ) Additional Dressing/Incision Instructions:: Cleanse the incision daily with soapand water and then cover with a dry dressing. Remove the cervical collar ONLY when cleaning and changing dressing. The surgeon will tell you when you can discontinue the rigid collar. Follow Up Care When: you have multiple appts that have been scheduled for you. They are listedat the end of this document. Test Results: Test results from this visit will be discussed in further detail at your follow- up appointment, if applicable. Discharge Plan Admission Admit Date/Time: 12/24/24 16:25 Primary Reason for Your Visit: DEBILITY DUE TO CERVICAL LAMINECTOMY AND FUSION. Attending Provider: Saumya Bobo Primary Care Provider: Reagan Soto Instructions Patient Instructions: Caring for Your Incision, COPD: Using Inhalers, Chronic Lung Disease Avoid These, ED Urinary Retention, Male Additional Instructions / Restrictions: 1. Your chest XRAY and CT scan of the chest shows changes consistent with emphysema. you also have multiple pulmonary nodules. there is a 1 cm nodule inthe base of the left lung. you will need to have a follow up CT of the chest in3 months. I am referring you to a lung specialist to evaluate you for COPD/emphysema and to follow the pulmonary nodules. You will be seeing Dr. Chandra Frazier in April. Bright likely want you to have pulmonary function tests. You will be due for the repeat CT scan of the chest in March. you had the initial CT of the chest on 12/28/24. Dr. Soto can order a follow up CT scan for you or you can wait until you see Dr. Frazier. You are being discharged on 2different inhale rs. You will continue to use these inhalers as directed at discharge. Always rinse you mouth after using the inhalers. I have given you ahandout that discusses the triggers for an acute exacerbation of COPD. Please become familiar with the triggers and avoid them. I think the trigger for the exacerbations you had in the hospital was the plants in your room. 2. Make sure your checks the incision every day. If there is increasing redness around the incision, ANY opening of the skin, increased swelling around the incision or any discharge call your doctor for instructions about what to do. 3. Continue wearing the cervical collar at all times EXCEPT when you are cleaning the area and changing the dressing. Dr. Mcdermott will tell you when you can start weaning off the collar. 4. DO NOT TAKE ANY OVER THE COUNTER MEDICATIONS LIKE MOTRIN, ADVIL, ALLEVE, ETC. These medications are called NSAID's and then can impair the bone fusion. If you have any doubt about and over the counter medication ask the pharmacist if is a NSAID. You can take Tylenol and Oxycodone. 5. you are going to need to follow up with pain management for the low back pain. 6. You have been off Metformin while on rehab. Your Blood sugars are well controlled on Jardiance alone. If you stick to the same diet you have been eating while on rehab your blood sugars should remain controlled. Check your blood sugars at home and keep a record to take to Dr. Soto at your next appt. Jardiance in addition to controlling blood sugars helps to prevent progression of kidney disease yoav to diabetes and it also helps with patients with a history of heart failure. 7. you may need to take a stool softener when you get home. Sugar Free Metamucil or MiraLAX both work well and are available over the counter. 8. I think you would benefit from psychotherapy with a home health care social worker or a psychologist. You have anxiety and depression and you have a lot going on in your life that keeps you anxious. You need to learn how to deal with these issues without decompensating. A therapist can help you work through this. 9. If you have any questions after leaving rehab please do not hesitate to call. OFFICE: [phone] CELL: [phone] NURSES STATION ON REHAB: [phone] Discharge Orders/Prescriptions Prescriptions: New carvedilol 12.5 mg Tablet 12.5 mg PO BIDCM Qty: 60 0RF amiodarone 200 mg Tablet 200 mg PO BREAKFAST Qty: 30 0RF acetaminophen 500 mg Tablet 1,000 mg PO Q8 Qty: 180 0RF Rx Instructions: 2 tabs every 8 hours for pain control lisinopril 2.5 mg Tablet 2.5 mg PO DAILY Qty: 30 0RF cholecalciferol (vitamin D3) 125 mcg (5,000 unit) Capsule 125 mcg PO DAILY Qty: 30 0RF duloxetine 30 mg Capsule,Delayed Release(Dr/Ec) 30 mg PO DAILY Qty: 30 0RF fluticasone propion-salmeterol 232-14 mcg/actuation Aerosol Powdr Breath Activated 1 inh inhalation Q12 Qty: 1 0RF Rx Instructions: Rinse your mouth after every use. oxycodone 5 mg Tablet 10 mg PO 0700,2200 7 Days Qty: 28 0RF Rx Instructions: take 1-2 tabs every 4 hours as needed for pain. 1 tab if pain is 3-5 and 2 tabs if pain is > 5 tizanidine 2 mg Tablet 2 mg PO BID Qty: 14 0RF tamsulosin 0.4 mg Capsule 0.8 mg PO DAILY@1730 Qty: 60 0RF Rx Instructions: 2 tabs daily with supper. pantoprazole 40 mg Tablet,Delayed Release (Dr/Ec) 40 mg PO DAILY Qty: 30 0RF Incruse Ellipta 62.5 mcg/actuation Blister With Device 62.5 mcg inhalation DAILY Qty: 1 0RF Rx Instructions: 1 inhalation daily Continued aspirin 81 MG tablet 81 mg PO DAILY@0800 0RF gabapentin 300 mg capsule 300 mg PO Q8H Qty: 90 0RF rosuvastatin 40 mg tablet 40 mg PO QHS Qty: 30 0RF Jardiance 25 mg tablet 25 mg PO DAILY Qty: 30 0RF furosemide [Lasix] 20 mg tablet 20 mg PO DAILY Qty: 90 3RF Discontinued carvedilol 25 mg tablet 12.5 mg PO BID metformin 500 mg tablet extended release 24 hr 500 mg PO BID Patient Comments: Take 1 tablet by mouth twice a day amiodarone 400 mg tablet 200 mg PO DAILY oxycodone 5 mg tablet 5 - 10 mg PO Q4H PRN (Reason: pain) lisinopril 40 mg tablet 5 mg PO DAILY Referrals / Follow Up: Lacey Mcdermott [Other] - In 1 Week (office will call to schedule appointment ) X-Ray [Other] - In 1 Week (office will call to make appointment ) Chandra Frazier DO [Med Staff - Active Staff] - 04/25/25 10:45 am (COPD) Dharmesh Kohli MD [Med Staff - Active Staff] - 01/17/25 2:15 pm Reagan Soto MD [Primary Care Provider] - 01/16/25 9:30 am (Needs appt [facility] or [facility] cannot startuntil pt is seen in the office) Disposition Disposition (needs filled in before D/C Order can be placed): Home Health Service 01/15/25 0849Saumya Bobo DO CC: Dr. Reagan Soto MD ~ [facility]03-24-2025 Progress note Author [facility] Note Date/Time January 14, 2025 4:1 6pm [facility] Medical Records Department [address] [place] [address] Progress Note 01/14/25 1605 MR#: [id number] Acct: [id number] Name: FRANK ZIMMER Rep #:[id number] : 1960 64 From: Saumya Bobo DO PCP: Dr. Reagan Soto MD Status:AD M IN Location: [place] [address]-1 Subjective Subjective Afebrile VSS -blood pressure is within goal. Heart rate has ranged from 55-62 over the past 48 hours. Denies lightheadedness and shortness of breath with exertion. Maintaining appropriate oxygen saturation on RA Oral intake - FOOD good FLUIDS good Blood sugar record was reviewed and the blood sugars are under excellent control. Discussed with nursing - no problems that need addressed Reviewed the THERAPY notes Medication list reviewed. Denies lightheadedness, shortness of breath, cough, palpitations, chest pain, calf pain, suprapubic pain, nausea/vomiting and abdominal pain. Sleeping well at night. Happy to be going home. Objective Data Objective Data Vital Signs: Vital Signs Temp Pulse Resp BP Pulse Ox O2 Del Method O2 Flow Rate 97.6 F L 55 L 14 132/75 H 95 Room Air 1 01/14/25 06:00 01/14/25 10:00 01/14/25 10:00 01/14/25 06:00 01/14/25 10:00 01/14/25 10:00 01/03/25 13:00 FiO2 40 12/28/24 20:23 Oxygen Flow Rate (L/min) 1 Oxygen Delivery Method Room Air Weight: 201 lb 8.04 oz Body Mass Index (BMI) 23.8 Intake & Output: Intake and Output for Last 24 Hours 01/12/25 01/13/25 01/14/25 23:59 23:59 23:59 Intake Total 2600 / 2600 1460 / 1460 1370 / 1370 Output Total 2625 / 2625 2300 / 2300 1750 / 1750 Balance -25 / -25 -840 / -840 -380 / -380 Lab / Micro Data 01/11/25 05:57 01/11/25 05:57 Micro: Microbiology 01/05/25 12:22 Sputum, Expectorated/Coughed Gram Stain - Final 01/05/25 12:22 Sputum, Expectorated/Coughed Respiratory Culture - Final Mixed normal respiratory sudhakar. No Streptococcus pneumoniae, beta-hemolytic Streptococcus or Staphylococcus aureus isolated. 01/03/25 08:11 Nasal Secretion MRSA (PCR) - Final 12/28/24 15:15 Mucosa - Nasopharyngeal Respiratory Panel (PCR) - Final 12/28/24 15:15 Mucosa - Nose Coronavirus COVID-19 PCR - Final Physical Exam Const alert, oriented x3 and no apparent distress General Appearance: cooperative HEENT moist oral mucous membranes Neck Neck Narrative: [place] J collar in place. Resp clear to auscultation bilaterally Resp Narrative: Fair to good air exchange throughout. No conversational dyspnea. Not tachypneic. No cough with deep breaths. Cardio regular rate, regular rhythm, no rub and no gallops Cardio Narrative: Occasional ectopics. GI normal to inspection, nondistended, normoactive bowel sounds, soft to palpation and non-tender GI Narrative: No guarding with palpation. Extremity no calf tenderness General Extremity: Negative for edema Skin Rashes: no rashes Wound Narrative: [place] have been removed from the incision and the incision remains intact withno dehiscence. There is no zuly-incisional erythema, no discharge and no significant swelling in the zuly-incisional area. Neuro CN's II-XII intact bilaterally Psych cooperative Psych Narrative: Less tearful. Tolerating Duloxetine with no adverse side effects. Sleeping better at night with no need for Ambien since 01/09/25. Less anxious. Happy to be going home tomorrow. Good eye contact and engaged in conversation. Assessment & Plan Assessment/Plan (1) Debility: (2) Cervical stenosis of spinal canal: (3) Myelopathy concurrent with and due to spinal stenosis of cervical region: (4) Radiculopathy due to cervical spondylosis at multiple levels: (5) H/O laminectomy: (6) Hypoxemia: (7) Pulmonary nodules/lesions, multiple: (8) Urine retention: (9) Acute blood loss anemia: (10) Diabetes mellitus, type II: QUALIFIERS: Diabetes mellitus detention insulin use: without moth exterminator use Diabetes mellitus complication status: without complication QualifiedCode(s): E11.9 - Type 2 diabetes mellitus without complications (11) Dilated cardiomyopathy: (12) Anxiety and depression: (13) COPD with acute exacerbation: (14) Bronchospasm, acute: (15) Hyperlipidemia: QUALIFIERS: Hyperlipidemia type: unspecified Qualified Code(s): E78.5 - Hyperlipidemia, unspecified (16) Hypertension: QUALIFIERS: Hypertension type: primary hypertension Qualified Code(s): I10 - Essential (primary) hypertension (17) Bladder cancer: QUALIFIERS: Bladder location: unspecified site Qualified Code(s):C67.9 - Malignant neoplasm of bladder, unspecified (18) COPD (chronic obstructive pulmonary disease): QUALIFIERS: COPD type: unspecified COPD Qualified Code(s): J44.9 - Chronic obstructive pulmonary disease, unspecified PLAN: Plan 1. Plan discharge home tomorrow with [facility] home health care for PT/OT/SN. 2. Follow-up has been scheduled with Dr. Soto (PCP), Dr. Kohli (urology for urine retention) and with Dr. Chandra Frazier from pulmonary medicine. 3. His is scheduling an appointment to see Dr. Martinez in 1 week. He willalso need an x-ray at that time. 4. Will discharge with Fernandez catheter. 5. Check a UA today. 6. Prescriptions were faxed to [facility] pharmacy. Charges/Coding Visit Charges Inpatient E&M: 97816 Subs Hosp L1 01/14/25 1616 <Electronically signed by Saumya Bobo DO> Saumya Bobo DO Cosigner Signature (if applicable): CC: ~ Signed [facility] Work Phone: [phone] 356-182503-24-2025 Progress note [facility] Medical Records Department [address] [place] [address] Progress Note 01/14/25 1605 MR#: [id number] Acct: [id number] Name: FRANK ZIMMER Rep #:[id number] : 1960 64 From: Saumya Bobo DO PCP: Dr. Reagan Soto MD Status:AD M IN Location: [place] [address] Subjective Subjective Afebrile VSS -blood pressure is within goal. Heart rate has ranged from 55-62 over the past 48 hours. Denieslightheadedness and shortness of breath with exertion. Maintaining appropriate oxygen saturation on RA Oral intake - FOOD good FLUIDS good Blood sugar record was reviewed and the blood sugars are under excellent control. Discussed with nursing - no problems that need addressed Reviewed the THERAPY notes Medication list reviewed. Denies lightheadedness, shortness of breath, cough, palpitations, chest pain, calf pain, suprapubicpain, nausea/vomiting and abdominal pain. Sleeping well at night. Happy to be going home. Objective Data Objective Data Vital Signs: Vital Signs Temp Pulse Resp BP Pulse Ox O2 Del Method O2 Flow Rate 97.6 F L 55 L 14 132/75 H 95 Room Air 1 01/14/25 06:00 01/14/25 10:00 01/14/25 10:00 01/14/25 06:00 01/14/25 10:00 01/14/25 10:00 01/03/25 13:00 FiO2 40 12/28/24 20:23 Oxygen Flow Rate (L/min) 1 Oxygen Delivery Method Room Air Weight: 201 lb 8.04 oz Body Mass Index (BMI) 23.8 Intake & Output: Intake and Output for Last 24 Hours 01/12/25 01/13/25 01/14/25 23:59 23:59 23:59 Intake Total 2600 / 2600 1460 / 1460 1370 / 1370 Output Total 2625 / 2625 2300 / 2300 1750 / 1750 Balance -25 / -25 -840 / -840 -380 / -380 Lab / Micro Data 01/11/25 05:57 01/11/25 05:57 Micro: Microbiology 01/05/25 12:22 Sputum, Expectorated/Coughed Gram Stain - Final 01/05/25 12:22 Sputum, Expectorated/Coughed Respiratory Culture - Final Mixed normal respiratory sudhakar. No Streptococcus pneumoniae, beta-hemolytic Streptococcus or Staphylococcus aureus isolated. 01/03/25 08:11 Nasal Secretion MRSA (PCR) - Final 12/28/24 15:15 Mucosa - Nasopharyngeal Respiratory Panel (PCR) - Final 12/28/24 15:15 Mucosa - Nose Coronavirus COVID-19 PCR - Final Physical Exam Const alert, oriented x3 and no apparent distress General Appearance: cooperative HEENT moist oral mucous membranes Neck Neck Narrative: [place] J collar in place. Resp clear to auscultation bilaterally Resp Narrative: Fair to good air exchange throughout. No conversational dyspnea. Not tachypneic. No cough with deepbreaths. Cardio regular rate, regular rhythm, no rub and no gallops Cardio Narrative: Occasional ectopics. GI normal to inspection, nondistended, normoactive bowel sounds, soft to palpation and non-tender GI Narrative: No guarding with palpation. Extremity no calf tenderness General Extremity: Negative for edema Skin Rashes: no rashes Wound Narrative: [place] have been removed from the incision and the incision remains intact withno dehiscence. There is no zuly-incisional erythema, no discharge and no significant swelling in the zuly-incisional area. Neuro CN's II-XII intact bilaterally Psych cooperative Psych Narrative: Less tearful. Tolerating Duloxetine with no adverse side effects. Sleeping better at night with no need for Ambien since 01/09/25. Less anxious. Happy to be going home tomorrow. Good eye contact and engaged in conversation. Assessment & Plan Assessment/Plan (1) Debility: (2) Cervical stenosis of spinal canal: (3) Myelopathy concurrent with and due to spinal stenosis of cervical region: (4) Radiculopathy due to cervical spondylosis at multiple levels: (5) H/O laminectomy: (6) Hypoxemia: (7) Pulmonary nodules/lesions, multiple: (8) Urine retention: (9) Acute blood loss anemia: (10) Diabetes mellitus, type II: QUALIFIERS: Diabetes mellitus detention insulin use: without moth exterminator use Diabetes mellitus complication status: without complication QualifiedCode(s): E11.9 - Type 2 diabetes mellitus without complications (11) Dilated cardiomyopathy: (12) Anxiety and depression: (13) COPD with acute exacerbation: (14) Bronchospasm, acute: (15) Hyperlipidemia: QUALIFIERS: Hyperlipidemia type: unspecified Qualified Code(s): E78.5 - Hyperlipidemia, unspecified (16) Hypertension: QUALIFIERS: Hypertension type: primary hypertension Qualified Code(s): I10 - Essential (primary) hypertension (17) Bladder cancer: QUALIFIERS: Bladder location: unspecified site Qualified Code(s):C67.9 - Malignant neoplasm of bladder, unspecified (18) COPD (chronic obstructive pulmonary disease): QUALIFIERS: COPD type: unspecified COPD Qualified Code(s): J44.9 - Chronic obstructive pulmonary disease, unspecified PLAN: Plan 1. Plan discharge home tomorrow with [facility] home health care for PT/OT/SN. 2. Follow-up has been scheduled with Dr. Soto (PCP), Dr. Kohli (urology for urine retention) and with Dr. Chandra Frazier from pulmonary medicine. 3. His is scheduling an appointment to see Dr. Martinez in 1 week. He willalso need an x-ray atthat time. 4. Will discharge with Fernandez catheter. 5. Check a UA today. 6. Prescriptions were faxed to [facility] pharmacy. Charges/Coding Visit Charges Inpatient E&M: 36636 Subs Hosp L1 01/14/25 1616 Saumya DennyLivia Jeramie RYAN Cosigner Signature (if applicable): CC: ~ Signed [facility]03-20-2025 Progress note Author Saumya Bobo [facility] Note Date/Time January 10, 2025 1:4 8pm [facility] Medical Records Department [address] [place] [address] Progress Note 01/10/25 1003 MR#: [id number] Acct: [id number] Name: FRANK ZIMMER Rep #:[id number] : 1960 64 From: Saumya Bobo DO PCP: Dr. Reagan Soto MD Status:AD M IN Location: [place] [address] Subjective Subjective Frank was seen on TEAM rounds today. Ravindra participated by phone. Afebrile VSS -systolic blood pressure is elevated later in the afternoon into the 150s. Lisinopril has been on hold for decreased blood pressure earlier in the admission. Diastolic is always within goal. Heart rate has ranged from 59-85 over the past 24 hours. Heart rate increases appropriate with exertion. No lightheadedness. Maintaining appropriate oxygen saturation on RA-93 to 97% on room air. Not tachypneic, denies shortness of breath. Oral intake - FOOD good FLUIDS good The blood sugar record was reviewed and the blood sugars are under excellent control with no hypoglycemia. He is no longer taking metformin. Discussed with nursing - Fernandez reinserted yesterday for persistent PVR's > 300 on FLomax 0.8 mg daily. Reviewed the THERAPY notes Medication list reviewed. Taking Ambien infrequently for insomnia. Tolerating Duloxetine without any adverse side effect. Denies lightheadedness, chest pain, shortness of breath, cough, palpitations, nausea/vomiting/abdominal pain, flank pain and calf pain. COncerned about a small amount of blood in the fernandez.....reassured him this ia not unusual. Objective Data Objective Data Vital Signs: Vital Signs Temp Pulse Resp BP Pulse Ox O2 Del Method O2 Flow Rate 97.3 F L 62 17 125/72 H 93 Room Air 1 01/10/25 06:00 01/10/25 06:00 01/10/25 06:00 01/10/25 06:00 01/10/25 06:00 01/10/25 09:45 01/03/25 13:00 FiO2 40 12/28/24 20:23 Oxygen Flow Rate (L/min) 1 Oxygen Delivery Method Room Air Weight: 202 lb 2.622 oz Body Mass Index (BMI) 23.8 Intake & Output: Intake and Output for Last 24 Hours 01/08/25 01/09/25 01/10/25 23:59 23:59 23:59 Intake Total 3050 / 3450 2590 / 2590 1050 / 1050 Output Total 3050 / 3050 2225 / 2225 650 / 650 Balance 0 / 400 365 / 365 400 / 400 Lab / Micro Data 01/03/25 05:26 01/03/25 05:26 Labs: Laboratory Results - last 24 hr 01/09/25 16:24: POC Glucose 133 H 01/10/25 06:12: POC Glucose 120 H Micro: Microbiology 01/05/25 12:22 Sputum, Expectorated/Coughed Gram Stain - Final 01/05/25 12:22 Sputum, Expectorated/Coughed Respiratory Culture - Final Mixed normal respiratory sudhakar. No Streptococcus pneumoniae, beta-hemolytic Streptococcus or Staphylococcus aureus isolated. 01/03/25 08:11 Nasal Secretion MRSA (PCR) - Final 12/28/24 15:15 Mucosa - Nasopharyngeal Respiratory Panel (PCR) - Final 12/28/24 15:15 Mucosa - Nose Coronavirus COVID-19 PCR - Final Physical Exam Const alert, oriented x3 and no apparent distress General Appearance: cooperative HEENT moist oral mucous membranes HEENT Narrative: No thrush Resp normal respiratory effort and clear to auscultation bilaterally Effort and Inspection: Negative for tachypneic or respiratory distress Auscultation: diminished lung sounds Cardio regular rate, regular rhythm and no gallops Cardio Narrative: No ectopy GI normal to inspection, nondistended, normoactive bowel sounds, soft to palpation and non-tender Extremity no calf tenderness General Extremity: Negative for edema Skin Rashes: no rashes Psych cooperative Psych Narrative: Still somewhat anxious and tearful. Upset about the Fernandez catheter but would rather have the catheter and to straight cath intermittently. For the most partsleeping well at night. Occasionally takes Ambien. Appropriate, making good eye contact when we speak. Normal speech. Assessment & Plan Assessment/Plan (1) Debility: (2) Cervical stenosis of spinal canal: (3) Myelopathy concurrent with and due to spinal stenosis of cervical region: (4) Radiculopathy due to cervical spondylosis at multiple levels: (5) H/O laminectomy: (6) Hypoxemia: (7) Pulmonary nodules/lesions, multiple: (8) Urine retention: (9) Acute blood loss anemia: (10) Diabetes mellitus, type II: QUALIFIERS: Diabetes mellitus complication status: without complication Diabetes mellitus detention insulin use: without moth exterminator use Qualified Code(s): E11.9 - Type 2 diabetes mellitus without complications (11) Dilated cardiomyopathy: (12) Anxiety and depression: PLAN: Plan 1. Continue therapy 2. Check a CBC and BMP in the a.m. 3. Doing well on fluticasone/Salmeterol inhaler and Spiriva inhaler. Will follow-up with pulmonary medicine postdischarge not only for suspected COPD but for the 1 cm pulmonary nodule in the left base. 4. Plan discharge with a Fernandez catheter. Will follow-up with Dr. Kohli. 5. Discontinue sliding insulin scale 6. DC ascorbic acid, zinc and probiotic 7. DC Mucinex 8. Restart lisinopril but decrease the dose to 2.5 mg daily. Continue to monitor blood pressures. 9. He had an appointment with [facility] in the office Tuesday but thiswill need to be rescheduled because he is not being discharged until Tuesday. His will take care of this. 10. He is chosen [facility] home health care at discharge. [employer] worker is arranging. Charges/Coding Visit Charges Inpatient E&M: 47260 Subs Hosp L2 01/10/25 1348 <Electronically signed by Saumya Bobo DO> Saumya Bobo DO Cosigner Signature (if applicable): CC: ~ Signed [facility] Work Phone: [phone] Progress note [facility] Medical Records Department [address] [place] [address] Progress Note 01/10/25 1003 MR#: [id number] Acct: [id number] Name: FRANK ZIMMER Rep #:[id number] : 1960 64 From: Saumya Bobo DO PCP: Dr. Reagan Soto MD Status:AD M IN Location: [place] [address] Subjective Subjective Frank was seen on TEAM rounds today. Ravindra participated by phone. Afebrile VSS -systolic blood pressure is elevated later in the afternoon into the 150s. Lisinopril has been on hold for decreased blood pressure earlier in the admission. Diastolic is always within goal. Heart rate has ranged from 59-85 over the past 24 hours. Heart rate increases appropriate with exertion.No lightheadedness. Maintaining appropriate oxygen saturation on - to 97% on room air. Not tachypneic, denies shortness of breath. Oral intake - FOOD good FLUIDS good The blood sugar record was reviewed and the blood sugars are under excellent control with no hypoglycemia. He is no longer taking metformin. Discussed with nursing - Fernandez reinserted yesterday for persistent PVR's > 300 on FLomax 0.8 mg daily. Reviewed the THERAPY notes Medication list reviewed. Taking Ambien infrequently for insomnia. Tolerating Duloxetine without any adverse side effect. Denies lightheadedness, chest pain, shortness of breath, cough, palpitations, nausea/vomiting/abdominal pain, flank pain and calf pain. COncerned about a small amount of blood in the fernandez.....reassured him this ia not unusual. Objective Data Objective Data Vital Signs: Vital Signs Temp Pulse Resp BP Pulse Ox O2 Del Method O2 Flow Rate 97.3 F L 62 17 125/72 H 93 Room Air 1 01/10/25 06:00 01/10/25 06:00 01/10/25 06:00 01/10/25 06:00 01/10/25 06:00 01/10/25 09:45 01/03/25 13:00 FiO2 40 12/28/24 20:23 Oxygen Flow Rate (L/min) 1 Oxygen Delivery Method Room Air Weight: 202 lb 2.622 oz Body Mass Index (BMI) 23.8 Intake & Output: Intake and Output for Last 24 Hours 01/08/25 01/09/25 01/10/25 23:59 23:59 23:59 Intake Total 3050 / 3450 2590 / 2590 1050 / 1050 Output Total 3050 / 3050 2225 / 2225 650 / 650 Balance 0 / 400 365 / 365 400 / 400 Lab / Micro Data 01/03/25 05:26 01/03/25 05:26 Labs: Laboratory Results - last 24 hr 01/09/25 16:24: POC Glucose 133 H 01/10/25 06:12: POC Glucose 120 H Micro: Microbiology 01/05/25 12:22 Sputum, Expectorated/Coughed Gram Stain - Final 01/05/25 12:22 Sputum, Expectorated/Coughed Respiratory Culture - Final Mixed normal respiratory sudhakar. No Streptococcus pneumoniae, beta-hemolytic Streptococcus or Staphylococcus aureus isolated. 01/03/25 08:11 Nasal Secretion MRSA (PCR) - Final 12/28/24 15:15 Mucosa - Nasopharyngeal Respiratory Panel (PCR) - Final 12/28/24 15:15 Mucosa - Nose Coronavirus COVID-19 PCR - Final Physical Exam Const alert, oriented x3 and no apparent distress General Appearance: cooperative HEENT moist oral mucous membranes HEENT Narrative: No thrush Resp normal respiratory effort and clear to auscultation bilaterally Effort and Inspection: Negative for tachypneic or respiratory distress Auscultation: diminished lung sounds Cardio regular rate, regular rhythm and no gallops Cardio Narrative: No ectopy GI normal to inspection, nondistended, normoactive bowel sounds, soft to palpation and non-tender Extremity no calf tenderness General Extremity: Negative for edema Skin Rashes: no rashes Psych cooperative Psych Narrative: Still somewhat anxious and tearful. Upset about the Fernandez catheter but would rather have the catheter and to straight cath intermittently. For the most partsleeping well at night. Occasionally takes Ambien. Appropriate, making good eye contact when we speak. Normal speech. Assessment & Plan Assessment/Plan (1) Debility: (2) Cervical stenosis of spinal canal: (3) Myelopathy concurrent with and due to spinal stenosis of cervical region: (4) Radiculopathy due to cervical spondylosis at multiple levels: (5) H/O laminectomy: (6) Hypoxemia: (7) Pulmonary nodules/lesions, multiple: (8) Urine retention: (9) Acute blood loss anemia: (10) Diabetes mellitus, type II: QUALIFIERS: Diabetes mellitus complication status: without complication Diabetes mellitus long terminsulin use: without detention use Qualified Code(s): E11.9 - Type 2 diabetes mellitus without complications (11) Dilated cardiomyopathy: (12) Anxiety and depression: PLAN: Plan 1. Continue therapy 2. Check a CBC and BMP in the a.m. 3. Doing well on fluticasone/Salmeterol inhaler and Spiriva inhaler. Will follow-up with pulmonary medicine postdischarge not only for suspected COPD but for the 1 cm pulmonary nodule in the left base. 4. Plan discharge with a Fernandez catheter. Will follow-up with Dr. Kohli. 5. Discontinue sliding insulin scale 6. DC ascorbic acid, zinc and probiotic 7. DC Mucinex 8. Restart lisinopril but decrease the dose to 2.5 mg daily. Continue to monitor blood pressures. 9. He had an appointment with [facility] in the office Tuesday but thiswill need to be rescheduled because he is not being discharged until Tuesday. His will take care of this. 10. He is chosen [facility] home health care at discharge. [employer] worker is arranging. Charges/Coding Visit Charges Inpatient E&M: 14708 Subs Hosp L2 01/10/25 1348 Saumya Bobo DO Cosigner Signature (if applicable): CC: ~ Signed [facility]03-18-2025 Progress note Author [facility] Note Date/Time January 08, 2025 12: 22pm [facility] Medical Records Department [address] [place] [address] Progress Note 01/08/25 1149 MR#: [id number] Acct: [id number] Name: FRANK ZIMEMR Rep #:[id number] : 1960 64 From: Saumya Bobo DO PCP: Dr. Reagan Soto MD Status:AD M IN Location: [place] [address] Subjective Subjective Afebrile VSS - BP is mildly elevated at times.....may be related to recent course of highdose steroids for acute exacerbation COPD Maintaining appropriate oxygen saturation on RA-93 to 97% on room air Oral intake - FOOD good FLUIDS good Blood sugars for the past 2 days have all been less than 200. Effect of the high-dose steroids is wearing off. No hypoglycemia. Discussed with nursing - no problems that need addressed. Fernandez catheter was discontinued this a.m. for a voiding trial. Currently taking Flomax 0.8 mg daily. Reviewed the THERAPY notes Medication list reviewed. Starting Duloxetine today for anxiety/depression and chronic back pain. Awoke and asked for Oxycodone at 2 AM. Seems to be requiring a dose at HS recently. He gets a scheduled dose at 0700 to prepare him for therapy. The pain he is having is in the low back, not the neck. His neck is feeling much better. He was in pain management in the past for chronic low back pain. Denies shortness of breath, wheezing, lightheadedness, chest pain, nausea/vomiting/abdominal pain and calf pain. He voided 400 cc since the Fernandez was removed PVR with bladder scan was 300. Will continued to monitor. Have him stand to urinate. Will have him urinate once and wait and then try to urinate again. Frank tells me that he was getting epidurals from pain management. He denies any pain radiating into his buttocks or legs. Pain is mostly musculoskeletal. He is getting Gabapentin 300 mg TID. Objective Data Objective Data Vital Signs: Vital Signs Temp Pulse Resp BP Pulse Ox O2 Del Method O2 Flow Rate 98.1 F 62 20 H 147/76 H 95 Room Air 1 01/08/25 06:00 01/08/25 06:00 01/08/25 06:00 01/08/25 06:00 01/08/25 06:00 01/08/25 06:00 01/03/25 13:00 FiO2 40 12/28/24 20:23 Oxygen Flow Rate (L/min) 1 Oxygen Delivery Method Room Air Weight: 202 lb 2.622 oz Body Mass Index (BMI) 23.8 Intake & Output: Intake and Output for Last 24 Hours 01/06/25 01/07/25 01/08/25 23:59 23:59 23:59 Intake Total 2790 / 2790 2460 / 2860 2280 / 2280 Output Total 2600 / 2600 1400 / 2150 1850 / 1850 Balance 190 / 190 1060 / 710 430 / 430 Lab / Micro Data 01/03/25 05:26 01/03/25 05:26 Labs: Laboratory Results - last 24 hr 01/07/25 11:31: POC Glucose 146 H 01/07/25 16:03: POC Glucose 196 H 01/07/25 21:13: POC Glucose 174 H 01/08/25 06:20: POC Glucose 132 H Micro: Microbiology 01/05/25 12:22 Sputum, Expectorated/Coughed Gram Stain - Final 01/05/25 12:22 Sputum, Expectorated/Coughed Respiratory Culture - Preliminary Appears to be normal respiratory sudhakar. Further studies to follow. 01/03/25 08:11 Nasal Secretion MRSA (PCR) - Final 12/28/24 15:15 Mucosa - Nasopharyngeal Respiratory Panel (PCR) - Final 12/28/24 15:15 Mucosa - Nose Coronavirus COVID-19 PCR - Final Physical Exam Const alert, oriented x3 and no apparent distress General Appearance: cooperative Resp clear to auscultation bilaterally Resp Narrative: No conversational dyspnea. Did not request an albuterol aerosol yesterday for wheezing/shortness of breath. He is now on fluticasone/Salmeterol and Spiriva inhalers. Effort and Inspection: Negative for tachypneic or respiratory distress Auscultation: diminished lung sounds Cardio regular rate, regular rhythm and no gallops Cardio Narrative: No ectopy GI normal to inspection, nondistended, normoactive bowel sounds, soft to palpation and non-tender Extremity no calf tenderness General Extremity: Negative for edema Skin Rashes: no rashes Assessment & Plan Assessment/Plan (1) Debility: (2) Cervical stenosis of spinal canal: (3) Myelopathy concurrent with and due to spinal stenosis of cervical region: (4) Radiculopathy due to cervical spondylosis at multiple levels: (5) H/O laminectomy: (6) COPD with acute exacerbation: (7) Bronchospasm, acute: (8) Hypoxemia: (9) Pulmonary nodules/lesions, multiple: (10) Urine retention: (11) Acute blood loss anemia: (12) Diabetes mellitus, type II: QUALIFIERS: Diabetes mellitus detention insulin use: without detention use Diabetes mellitus complication status: without complication QualifiedCode(s): E11.9 - Type 2 diabetes mellitus without complications (13) Dilated cardiomyopathy: PLAN: Plan 1. Continue therapy 2. Have him stand to urinate and have him tried twice to urinate. He will alsotry bearing down a little. His first void today was sitting on the toilet and he did not actually try to urinate. It just came out when having a BM. 3. Add a dose of Oxycodone at HS. since he is not having radicular pain I do not think increasing Gabapentin will help with this pain. Did not actually havearthritis cream applied to the back as ordered. Reminded nursing that he is to get cream on the low back as well as the knees. Will touch base with surgeon and see if they would be OK with a NSAID. 4. Decrease the Accu-Cheks to twice daily Charges/Coding Visit Charges Inpatient E&M: 48259 Subs Hosp L1 01/08/25 1210 <Electronically signed by Saumya Bobo DO> Saumya Bobo DO Cosigner Signature (if applicable): CC: ~ Signed ADDENDUM by Dr. Saumya Bobo DO on 01/08/25 at 1222 Addendum I called Delbert Mcdermott's office and was put through to for his nurse. Left amessage for them to call me back at 12:20 PM on 01/08 for them to call me back todiscuss medications. 01/08/25 1222 <Electronically signed by Saumya singh DO> Date _ Saumya Bobo Signature (if applicable): Date cc: ~* Signed [facility] Work Phone: [phone]) 798-974803-18-2025 Telephone encounter Note* Telephone Encounter - Angelique Brothers RN - 01/08/2025 2:01 PM EDT Spoke to Dr. Hoang, the doctor over at [facility], who asked if it was okay to give patient Celebrex 100mg daily - Spoke to Dr. Mcdermott who wishes to hold NSAIDS for a few months following surgical intervention. Patient is taking Tylenol 1,000mg TID already as well as topical cream, both given by the facility.She advised they will have him follow with chronic pain management regarding this. Angelique Brothers RN [facility]03-18-2025 Miscellaneous Notes* Telephone Encounter - Angelique Brothers RN - 01/08/2025 2:01 PM EDT Spoke to Dr. Hoang, the doctor over at [facility], who asked if it was okay to give patient Celebrex 100mg daily - Spoke to Dr. Mcdermott who wishes to hold NSAIDS for a few months following surgical intervention. Patient is taking Tylenol 1,000mg TID already as well as topical cream, both given by the facility.She advised they will have him follow with chronic pain management regarding this. Angelique Brothers RN * Telephone Encounter - Angelique Brothers RN - 01/08/2025 10:42 AM EDT Spoke to Rolanda, of [facility] and endorsed that I spoke with the facility and that they will be removing his sola. Also let her know that I confirmed they do not transport here and we will need to schedule the follow up for after 01/15/2025, which is his pending discharge date. Attempting to have him seen 01/21/2025. Advised her that we will call once verified appointment time and date. Angelique Brothers RN * Telephone Encounter - Angelique Brothers RN - 01/08/2025 9:24 AM EDT Spoke to Yanelis - nurse caring for Frank at [facility] [place] - Ok'd staple removal as we are over 2 weeks PO and states ok as long as no dehiscence, no signs of infection, drainage. She verify incision is healing well with no issues. Per [facility] will [facility] transfer here so follow up appointment will need scheduled for after 01/15/2025, as that is the pending date of discharge. Angelique Brothers RN [facility] Progress note [facility] Medical Records Department [address] [place] [address] Progress Note 01/08/25 1149 MR#: [id number] Acct: [id number] Name: FRANK ZIMMER Rep #:[id number] : 1960 64 From: Saumya Bobo DO PCP: Dr. Reagan Soto MD Status:AD M IN Location: [place] [address] Subjective Subjective Afebrile VSS - BP is mildly elevated at times.....may be related to recent course of highdose steroids for acute exacerbation COPD Maintaining appropriate oxygen saturation on RA-93 to 97% on room air Oral intake - FOOD good FLUIDS good Blood sugars for the past 2 days have all been less than 200. Effect of the high-dose steroids is wearing off. No hypoglycemia. Discussed with nursing - no problems that need addressed. Fernandez catheter was discontinued this a.m.for a voiding trial. Currently taking Flomax 0.8 mg daily. Reviewed the THERAPY notes Medication list reviewed. Starting Duloxetine today for anxiety/depression and chronic back pain. Awoke and asked for Oxycodone at 2 AM. Seems to be requiring a dose at HS recently. He gets a scheduled dose at 0700 to prepare him for therapy. The pain he is having is in the low back, not the neck. His neck is feeling much better. He was in pain management in the past for chronic low back pain. Denies shortness of breath, wheezing, lightheadedness, chest pain, nausea/vomiting/abdominal pain and calf pain. He voided 400 cc since the Fernandez was removed PVR with bladder scan was 300. Will continued to monitor. Have him stand to urinate. Will have him urinate once and wait and then try to urinate again. Frank tells me that he was getting epidurals from pain management. He denies any pain radiating into his buttocks or legs. Pain is mostly musculoskeletal. He is getting Gabapentin 300 mg TID. Objective Data Objective Data Vital Signs: Vital Signs Temp Pulse Resp BP Pulse Ox O2 Del Method O2 Flow Rate 98.1 F 62 20 H 147/76 H 95 Room Air 1 01/08/25 06:00 01/08/25 06:00 01/08/25 06:00 01/08/25 06:00 01/08/25 06:00 01/08/25 06:00 01/03/25 13:00 FiO2 40 12/28/24 20:23 Oxygen Flow Rate (L/min) 1 Oxygen Delivery Method Room Air Weight: 202 lb 2.622 oz Body Mass Index (BMI) 23.8 Intake & Output: Intake and Output for Last 24 Hours 01/06/25 01/07/25 01/08/25 23:59 23:59 23:59 Intake Total 2790 / 2790 2460 / 2860 2280 / 2280 Output Total 2600 / 2600 1400 / 2150 1850 / 1850 Balance 190 / 190 1060 / 710 430 / 430 Lab / Micro Data 01/03/25 05:26 01/03/25 05:26 Labs: Laboratory Results - last 24 hr 01/07/25 11:31: POC Glucose 146 H 01/07/25 16:03: POC Glucose 196 H 01/07/25 21:13: POC Glucose 174 H 01/08/25 06:20: POC Glucose 132 H Micro: Microbiology 01/05/25 12:22 Sputum, Expectorated/Coughed Gram Stain - Final 01/05/25 12:22 Sputum, Expectorated/Coughed Respiratory Culture - Preliminary Appears to be normal respiratory sudhakar. Further studies to follow. 01/03/25 08:11 Nasal Secretion MRSA (PCR) - Final 12/28/24 15:15 Mucosa - Nasopharyngeal Respiratory Panel (PCR) - Final 12/28/24 15:15 Mucosa - Nose Coronavirus COVID-19 PCR - Final Physical Exam Const alert, oriented x3 and no apparent distress General Appearance: cooperative Resp clear to auscultation bilaterally Resp Narrative: No conversational dyspnea. Did not request an albuterol aerosol yesterday for wheezing/shortness ofbreath. He is now on fluticasone/Salmeterol and Spiriva inhalers. Effort and Inspection: Negative for tachypneic or respiratory distress Auscultation: diminished lung sounds Cardio regular rate, regular rhythm and no gallops Cardio Narrative: No ectopy GI normal to inspection, nondistended, normoactive bowel sounds, soft to palpation and non-tender Extremity no calf tenderness General Extremity: Negative for edema Skin Rashes: no rashes Assessment & Plan Assessment/Plan (1) Debility: (2) Cervical stenosis of spinal canal: (3) Myelopathy concurrent with and due to spinal stenosis of cervical region: (4) Radiculopathy due to cervical spondylosis at multiple levels: (5) H/O laminectomy: (6) COPD with acute exacerbation: (7) Bronchospasm, acute: (8) Hypoxemia: (9) Pulmonary nodules/lesions, multiple: (10) Urine retention: (11) Acute blood loss anemia: (12) Diabetes mellitus, type II: QUALIFIERS: Diabetes mellitus moth exterminator insulin use: without detention use Diabetes mellitus complication status: without complication QualifiedCode(s): E11.9 - Type 2 diabetes mellitus without complications (13) Dilated cardiomyopathy: PLAN: Plan 1. Continue therapy 2. Have him stand to urinate and have him tried twice to urinate. He will alsotry bearing down a little. His first void today was sitting on the toilet and he did not actually try to urinate. It justcame out when having a BM. 3. Add a dose of Oxycodone at HS. since he is not having radicular pain I do not think increasing Gabapentin will help with this pain. Did not actually havearthritis cream applied to the back as ordered. Reminded nursing that he is to get cream on the low back as well as the knees. Will touch base with surgeon and see if they would be OK with a NSAID. 4. Decrease the Accu-Cheks to twice daily Charges/Coding Visit Charges Inpatient E&M: 84711 Subs Hosp L1 01/08/25 1210 Saumya Masterson Signature (if applicable): CC: ~ Signed ADDENDUM by Dr. Saumya Bobo DO on 01/08/25 at 1222 Addendum I called Delbert Mcdermott's office and was put through to for his nurse. Left amessage for them to call me back at 12:20 PM on 01/08 for them to call me back todiscuss medications. 01/08/25 1222 ti DO> Date _ Saumya Boboigner Signature (if applicable): Date cc: ~* Signed [facility]03-18-2025 Telephone encounter Note* Telephone Encounter - Angelique Brothers RN - 01/08/2025 10:42 AM EDT Spoke to Rolanda, of [facility] and endorsed that I spoke with the facility and that they will be removing his sola. Also let her know that I confirmed they do not transport here and we will need to schedule the follow up for after 01/15/2025, which is his pending discharge date. Attempting to have him seen 01/21/2025. Advised her that we will call once verified appointment time and date. Angelique Brothers RN [facility]03-18-2025 Telephone encounter Note* Telephone Encounter - Angelique Brothers RN - 01/08/2025 9:24 AM EDT Spoke to Yanelis - nurse caring for [facility] at [facility] [place] - Ok'd staple removal as we are over 2 weeks PO and states ok as long as no dehiscence, no signs of infection, drainage. She verify incision is healing well with no issues. Per Yanelis [facility] will not transfer here so follow up appointment will need scheduled for after 01/15/2025, as that is the pending date of discharge. Angelique Brothers RN [facility]03-18-2025 Telephone encounter Note* Telephone Encounter - Angelique Brothers RN - 01/08/2025 9:05 AM EDT Called and LVM with [facility] [place] - Requested to discuss staple removal and discuss follow up details. Angelique Brothers RN [facility]03-18-2025 Miscellaneous Notes* Telephone Encounter - Angelique Brothers RN - 01/08/2025 9:05 AM EDT Called and LVM with [facility] [place] - Requested to discuss staple removal and discuss follow up details. Angelique Brothers RN [facility] Progress note Author Saumya Bobo [facility] Note Date/Time January 07, 2025 5:1 0pm [facility] Medical Records Department [address] [place] [id number] Progress Note 01/07/25 1040 MR#: [id number] Acct: [id number] Name: FRANK ZIMMER Rep #:[id number] : 1960 64 From: Saumya Bobo DO PCP: Dr. Reagan Soto MD Status:AD M IN Location: [place] [address] Subjective Subjective Afebrile VSS - Maintaining appropriate oxygen saturation on RA-93 to 97% on room air Oral intake - FOOD eating 75 to 100% of all his meals. FLUIDS good Weight is down approximately 5 pounds in the past 1 week. It is down 9 pounds since admission to rehab. Discussed with nursing - no problems that need addressed Reviewed the THERAPY notes Medication list reviewed. Requesting that the aerosols be made PRN. He is c/o pain in the low back. Usedto go to pain management for low back pain but, when he was forced to be less active due to neck pain and myelopathy related to cervical cord compression his back stopped hurting as much. Now that he is bearing wt and ambulating again the back pain has resurfaced. Denies radicular pain at this time. Very denies shortness of breath, chest pain, palpitations, nausea/vomiting/abdominal pain, painful swallowing, mouth pain, dysuria and calf pain. He has an occasional cough. Objective Data Objective Data Vital Signs: Vital Signs Temp Pulse Resp BP Pulse Ox O2 Del Method O2 Flow Rate 98.2 F 57 L 18 138/81 H 94 Room Air 1 01/07/25 05:42 01/07/25 05:42 01/07/25 05:42 01/07/25 05:42 01/07/25 05:42 01/07/25 05:42 01/03/25 13:00 FiO2 40 12/28/24 20:23 Oxygen Flow Rate (L/min) 1 Oxygen Delivery Method Room Air Weight: 202 lb 2.622 oz Body Mass Index (BMI) 23.8 Intake & Output: Intake and Output for Last 24 Hours 01/05/25 01/06/25 01/07/25 23:59 23:59 23:59 Intake Total 2450 / 2450 2790 / 2790 1000 / 1000 Output Total 3500 / 3500 2600 / 2600 700 / 700 Balance -1050 / -1050 190 / 190 300 / 300 Lab / Micro Data 01/03/25 05:26 01/03/25 05:26 Labs: Laboratory Results - last 24 hr 01/06/25 11:36: POC Glucose 182 H 01/06/25 16:19: POC Glucose 219 H 01/06/25 20:36: POC Glucose 174 H 01/07/25 07:06: POC Glucose 120 H Micro: Microbiology 01/05/25 12:22 Sputum, Expectorated/Coughed Gram Stain - Final 01/03/25 08:11 Nasal Secretion MRSA (PCR) - Final 12/28/24 15:15 Mucosa - Nasopharyngeal Respiratory Panel (PCR) - Final 12/28/24 15:15 Mucosa - Nose Coronavirus COVID-19 PCR - Final Physical Exam Const alert, oriented x3 and no apparent distress General Appearance: cooperative Resp Resp Narrative: No wheezing, no tachypnea, no conversational dyspnea. Lungs are clear to auscultation without crackles or wheezes. No accessory muscle use. No cough with deep breathing. Auscultation: diminished lung sounds Cardio regular rate, regular rhythm and no gallops Cardio Narrative: No ectopy GI normal to inspection, nondistended, normoactive bowel sounds, soft to palpation and non-tender Extremity no calf tenderness General Extremity: Negative for edema Skin Rashes: no rashes Psych Psych Narrative: Somewhat anxious. Emotionally labile. Tearful at times. Worries a lot. Assessment & Plan Assessment/Plan (1) Debility: (2) Cervical stenosis of spinal canal: (3) Myelopathy concurrent with and due to spinal stenosis of cervical region: (4) Radiculopathy due to cervical spondylosis at multiple levels: (5) H/O laminectomy: (6) COPD with acute exacerbation: (7) Bronchospasm, acute: (8) Hypoxemia: (9) Pulmonary nodules/lesions, multiple: (10) Urine retention: (11) Acute blood loss anemia: (12) Diabetes mellitus, type II: QUALIFIERS: Diabetes mellitus detention insulin use: without moth exterminator use Diabetes mellitus complication status: without complication QualifiedCode(s): E11.9 - Type 2 diabetes mellitus without complications (13) Dilated cardiomyopathy: PLAN: Plan 1. Continue therapy 2. Discontinue scheduled DuoNeb aerosols. Start Umeclidinium Berwyn inhaler 1 puff daily. Continue Albuterol aerosols PRN. He has finished the steroid taper. 3. Apply the arthritis pain cream to the low back as well as the knees. Would like to avoid a PO NSAID because this can delay fusion. Continue PRN Oxycodone. Will need to follow up with pain management post DC from rehab. 4. Plan voiding trial in the AM. If he needs to have a straight cath will use urojet for comfort. He has a lot of trepidation around the catheter and asks what will we do if he fails the voiding trial tomorrow. I told him we would send him home with a Fernandez and have him Fernandez up with Dr. Kohli in the office. He has been treated by Dr. Kohli in the past (about 10 years ago) for bladder CA. Has not followed up in the past several years. Could conceivably have recurrent tumor or strictures or BPH. Failed 0.4 mg of Flomax. 5. He may benefit from treating for anxiety/depression. He has insomnia, emotional lability, he is anxious and overthinks things, worried about his 's health problems. Will discuss with him. Charges/Coding Visit Charges Inpatient E&M: 68220 Subs Hosp L1 01/07/250 <Electronically signed by Saumya Bobo DO> Saumya Bobo DO Cosign Signature (if applicable): CC: ~ Signed [facility] Work Phone: 1(476) 959-178103-17-2025 Progress note [facility] Medical Records Department [address] [place] [address] Progress Note 01/07/25 1040 MR#: [id number] Acct: [id number] Name: FRANK ZIMMER Rep #:[id number] : 1960 64 From: Saumya Bobo DO PCP: Dr. Reagan Soto MD Status:AD M IN Location: [place] [address] Subjective Subjective Afebrile VSS - Maintaining appropriate oxygen saturation on RA-93 to 97% on room air Oral intake - FOOD eating 75 to 100% of all his meals. FLUIDS good Weight is down approximately 5 pounds in the past 1 week. It is down 9 pounds since admission to rehab. Discussed with nursing - no problems that need addressed Reviewed the THERAPY notes Medication list reviewed. Requesting that the aerosols be made PRN. He is c/o pain in the low back. Usedto go to pain management for low back pain but, when he was forced to be less active due to neck pain and myelopathy related to cervical cord compression his back stopped hurting as much. Now that he is bearing wt and ambulating again the back pain has resurfaced. Denies radicular pain at this time. Very denies shortness of breath, chest pain, palpitations, nausea/vomiting/abdominal pain, painful swallowing, mouth pain, dysuria and calf pain. He has an occasional cough. Objective Data Objective Data Vital Signs: Vital Signs Temp Pulse Resp BP Pulse Ox O2 Del Method O2 Flow Rate 98.2 F 57 L 18 138/81 H 94 Room Air 1 01/07/25 05:42 01/07/25 05:42 01/07/25 05:42 01/07/25 05:42 01/07/25 05:42 01/07/25 05:42 01/03/25 13:00 FiO2 40 12/28/24 20:23 Oxygen Flow Rate (L/min) 1 Oxygen Delivery Method Room Air Weight: 202 lb 2.622 oz Body Mass Index (BMI) 23.8 Intake & Output: Intake and Output for Last 24 Hours 01/05/25 01/06/25 01/07/25 23:59 23:59 23:59 Intake Total 2450 / 2450 2790 / 2790 1000 / 1000 Output Total 3500 / 3500 2600 / 2600 700 / 700 Balance -1050 / -1050 190 / 190 300 / 300 Lab / Micro Data 01/03/25 05:26 01/03/25 05:26 Labs: Laboratory Results - last 24 hr 01/06/25 11:36: POC Glucose 182 H 01/06/25 16:19: POC Glucose 219 H 01/06/25 20:36: POC Glucose 174 H 01/07/25 07:06: POC Glucose 120 H Micro: Microbiology 01/05/25 12:22 Sputum, Expectorated/Coughed Gram Stain - Final 01/03/25 08:11 Nasal Secretion MRSA (PCR) - Final 12/28/24 15:15 Mucosa - Nasopharyngeal Respiratory Panel (PCR) - Final 12/28/24 15:15 Mucosa - Nose Coronavirus COVID-19 PCR - Final Physical Exam Const alert, oriented x3 and no apparent distress General Appearance: cooperative Resp Resp Narrative: No wheezing, no tachypnea, no conversational dyspnea. Lungs are clear to auscultation without crackles or wheezes. No accessory muscle use. No cough with deep breathing. Auscultation: diminished lung sounds Cardio regular rate, regular rhythm and no gallops Cardio Narrative: No ectopy GI normal to inspection, nondistended, normoactive bowel sounds, soft to palpation and non-tender Extremity no calf tenderness General Extremity: Negative for edema Skin Rashes: no rashes Psych Psych Narrative: Somewhat anxious. Emotionally labile. Tearful at times. Worries a lot. Assessment & Plan Assessment/Plan (1) Debility: (2) Cervical stenosis of spinal canal: (3) Myelopathy concurrent with and due to spinal stenosis of cervical region: (4) Radiculopathy due to cervical spondylosis at multiple levels: (5) H/O laminectomy: (6) COPD with acute exacerbation: (7) Bronchospasm, acute: (8) Hypoxemia: (9) Pulmonary nodules/lesions, multiple: (10) Urine retention: (11) Acute blood loss anemia: (12) Diabetes mellitus, type II: QUALIFIERS: Diabetes mellitus detention insulin use: without detention use Diabetes mellitus complication status: without complication QualifiedCode(s): E11.9 - Type 2 diabetes mellitus without complications (13) Dilated cardiomyopathy: PLAN: Plan 1. Continue therapy 2. Discontinue scheduled DuoNeb aerosols. Start Umeclidinium Berwyn inhaler 1 puff daily. ContinueAlbuterol aerosols PRN. He has finished the steroid taper. 3. Apply the arthritis pain cream to the low back as well as the knees. Would like to avoid a PO NSAID because this can delay fusion. Continue PRN Oxycodone. Will need to follow up with pain management post DC from rehab. 4. Plan voiding trial in the AM. If he needs to have a straight cath will use urojet for comfort. He has a lot of trepidation around the catheter and asks what will we do if he fails the voiding trial tomorrow. I told him we would send him home with a Fernandez and have him Fernandez up with Dr. Kohli in the office. He has been treated by Dr. Kohli in the past (about 10 years ago) for bladder CA. Has not followed up in the past several years. Could conceivably have recurrent tumor or strictures or BPH. Failed 0.4 mg of Flomax. 5. He may benefit from treating for anxiety/depression. He has insomnia, emotional lability, he is anxious and overthinks things, worried about his 's health problems. Will discuss with him. Charges/Coding Visit Charges Inpatient E&M: 01743 Subs Hosp L1 01/07/25 1710 Saumya Bobo DO Cosigner Signature (if applicable): CC: ~ Signed [facility]03-13-2025 Progress note Author Saumya Bobo [facility] Note Date/Time January 03, 2025 3:2 0pm [facility] Medical Records Department [address] [place] [address] Progress Note 01/03/25 1452 MR#: [id number] Acct: [id number] Name: FRANK ZIMMER Rep #:[id number] : 1960 64 From: Saumya Bobo DO PCP: Dr. Reagan Soto MD Status:AD M IN Location: [id number] Subjective Subjective Saumya was seen on team rounds today. His Ravindra participated by phone. AAn COTTON STOMPER was called this morning at about 4AM for SOB/hypoxemia and low BP. ABG showed a pH of 7.50, oxygen saturation of 96%, pO2 of 71 and a pCO2 of 31. Thiswas on 100% nonrebreather. He was treated with aerosols and things improved. ApCXR was done and was reported by radiologist as increasing R basilar infiltrate.......When I compared this to the CXR done 1 week ago they don't looksignificantly different. No pleural effusions and no PVC. The WBC is elevated but, he has been on high dose steroids. He has been AF and he was doing great at the end of the day yesterday when I saw him. He has been on Mucinex, prednisone, duonebs, Mucinex and PRN Albuterol aerosols. When he was seen on TEAM rounds at approximately 1:30 he was on RA and maintaining a pulse ox of 93-96%. He denies reflux, heartburn and any hx of waking up at night with SOB, cough, heartburn. He denies problems with breathing in the past but, he has notbeen able to exert himself due to not being able to walk. He had a brother withasthma. He denies sore throat, rhinitis, chest pain. COVID-19 and respiratory panel were negative last Tuesday and nothing has changed since then. Troponin x 2 has been negative today.. Hemoglobin is stable at 12.1. The BUN is 21 and the creatinine is 0.67 which are stable since last week. He was started on Zosyn by the night hospitalist. MRSA nasal swab was negative. He is back to feeling like his breathing is good. I suspect the low BP was related to hypoxemia with decreased cardeiac function........and possibly due tovalsalva when using the PEP? BP is now 133/77 with a heart rate of 58. Currently he denies cephalgia, lightheadedness, sore throat, chest pain, palpitations, shortness of breath at rest, nausea/vomiting/abdominal pain, calf pain. Objective Data Objective Data Vital Signs: Vital Signs Temp Pulse Resp BP Pulse Ox O2 Del Method O2 Flow Rate 97.2 F L 58 L 18 133/77 H 96 Nasal Cannula 1 01/03/25 05:39 01/03/25 13:00 01/03/25 13:00 01/03/25 06:30 01/03/25 14:09 01/03/25 13:00 01/03/25 13:00 FiO2 40 12/28/24 20:23 Oxygen Flow Rate (L/min) 1 Oxygen Delivery Method Nasal Cannula Weight: 207 lb 0.225 oz Body Mass Index (BMI) 24.4 Intake & Output: Intake and Output for Last 24 Hours 01/01/25 01/02/25 01/03/25 23:59 23:59 23:59 Intake Total 1950 / 2450 1900 / 1900 1050 / 1050 Output Total 1800 / 2500 3450 / 3450 1250 / 1250 Balance 150 / -50 -1550 / -1550 -200 / -200 Lab / Micro Data 01/03/25 05:26 01/03/25 05:26 Labs: Laboratory Results - last 24 hr 01/02/25 16:58: POC Glucose 149 H 01/02/25 21:42: POC Glucose 195 H 01/03/25 04:39: POC Glucose 129 H 01/03/25 05:26: WBC 16.7 H, RBC 3.82 L, Hgb 12.1 L, Hct 36.8 L, MCV 96.3 H, MCH 31.7, MCHC 32.9, RDW Std Deviation 51.4 H, RDW Coeff of Arnie 14.6, Plt Count 320,MPV 9.4, Immature Gran % (Auto) 0.500, Neut % (Auto) 84.2 H, Lymph % (Auto) 6.9 L, Gila % (Auto) 6.8, Eos % (Auto) 1.4, Baso % (Auto) 0.2, Absolute Neuts (auto)14.0 H, Absolute Lymphs (auto) 1.15, Nucleated RBC % 0, Sodium 137, Potassium 3.8, Chloride 101, Carbon Dioxide 23.1, Anion Gap 13, BUN 21 H, Creatinine 0.67 L, Estim Creat Clear Calc 116.02, Est GFR (MDRD) Non-Af 104, BUN/Creatinine Ratio 31.9 H, Glucose 132 H, Calcium 9.0, Phosphorus 2.9, Magnesium 1.9, Total Bilirubin 0.34, AST 15, ALT 29, Alkaline Phosphatase 70, Troponin T High Sens 17, Total Protein 6.3, Albumin 3.5, Globulin 2.7, Albumin/Globulin Ratio 1.3 01/03/25 06:42: POC Glucose 143 H 01/03/25 07:36: Troponin T Hi Sens 2 Hr 18 01/03/25 09:41: Troponin T Hi Sens 4Hr 21 01/03/25 10:59: POC Glucose 277 H Micro: Microbiology 01/03/25 08:11 Nasal Secretion MRSA (PCR) - Final 12/28/24 15:15 Mucosa - Nasopharyngeal Respiratory Panel (PCR) - Final 12/28/24 15:15 Mucosa - Nose Coronavirus COVID-19 PCR - Final ABG Data ABG results: ABG 01/03/25 05:10 Specimen Type ART Sample Site L Radial pH 7.50 H Bicarbonate Actual 24.0 Total CO2 25 Base Excess 1 O2 Saturation 96 O2 % 100.0 ABG pCO2 31.1 L ABG pO2 71 L Benji Test Positive O2 Delivery Device NRB Vent Mode Not entered Radiography Diagnostic Testing: Radiology Impression Chest X-Ray 01/03/25 05:20 IMPRESSION: Increasing right basilar infiltrate. This may represent increasing atelectasis or pneumonia. Follow-up to clearing is recommended. Postsurgical changes seen within the cervical spine. Reading Location: [id number] Physical Exam Const alert, oriented x3 and no apparent distress General Appearance: cooperative Resp Resp Narrative: Currently he is not tachypneic and he has no conversational dyspnea. Auscultation of the lungs revealed diminished breath sounds throughout but no wheezing and no crackles. He had no cough with deep breathing. He is 95% saturated on room air. Cardio regular rate, regular rhythm and no gallops Cardio Narrative: No ectopy GI normal to inspection, nondistended, normoactive bowel sounds, soft to palpation and non-tender GI Narrative: He has been taking pantoprazole. Extremity no calf tenderness General Extremity: Negative for edema Assessment & Plan Assessment/Plan (1) Debility: (2) Cervical stenosis of spinal canal: (3) Myelopathy concurrent with and due to spinal stenosis of cervical region: (4) Radiculopathy due to cervical spondylosis at multiple levels: (5) H/O laminectomy: (6) Acute blood loss anemia: (7) Urine retention: (8) Diabetes mellitus, type II: QUALIFIERS: Diabetes mellitus moth exterminator insulin use: without detention use Diabetes mellitus complication status: without complication QualifiedCode(s): E11.9 - Type 2 diabetes mellitus without complications (9) Presence of cardiac resynchronization therapy defibrillator (PLAY THERAPIST-D): (10) Presence of stent in coronary artery: (11) Dilated cardiomyopathy: (12) Hypoxemia: (13) COPD with acute exacerbation: (14) Pulmonary nodules/lesions, multiple: (15) Insomnia: QUALIFIERS: Insomnia type: drug-induced Qualified Code(s): F19.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 PLAN: Plan 1. Physical therapy was held this morning but he will have therapy in the afternoon as he is back at his baseline. 2. Add fluticasone/Salmeterol 1 inhalation every 12 hours to the current drug regimen. Continue Mucinex, duonebs, PRN Albuterol aerosols. Continue Zosyn for24 H and if he remains stable will transition to Augmentin. 3. Order sputum culture 4. Frank is agreeable to scheduling an appointment for him to follow-up with pulmonary medicine at discharge. Will need PFTs. Also needs to have surveillance for the 1 cm nodule in the left base. Trying to figure out what istriggering the bronchospasm. Rather than tapering the Prednisone to 10 mg for 3days will continue 20 mg of Prednisone for 3 more doses Charges/Coding Visit Charges Inpatient E&M: 38486 Subs Hosp L2 01/03/25 1520 <Electronically signed by Saumya Bobo DO> Saumya Bobo DO Cosigner Signature (if applicable): CC: ~ Signed [facility] Work Phone: [phone] Progress note [facility] Medical Records Department [address] [place] [address] Progress Note 01/03/25 1452 MR#: [id number] Acct: [id number] Name: FRANK ZIMMER Rep #:[id number] : 1960 64 From: Saumya Bobo DO PCP: Dr. Reagan Soto MD Status:AD M IN Location: [place] [address] Subjective Subjective Saumya was seen on team rounds today. His Ravindra participated by phone. AAn COTTON STOMPER was called this morning at about 4AM for SOB/hypoxemia and low BP. ABG showed a pH of 7.50,oxygen saturation of 96%, pO2 of 71 and a pCO2 of 31. Thiswas on 100% nonrebreather. He was treatedwith aerosols and things improved. ApCXR was done and was reported by radiologist as increasing R basilar infiltrate.......When I compared this to the CXR done 1 week ago they don't looksignificantlydifferent. No pleural effusions and no PVC. The WBC is elevated but, he has been on high dose steroids. He has been AF and he was doing great at the end of the day yesterday when I saw him. He has been on Mucinex, prednisone, duonebs, Mucinex and PRN Albuterol aerosols. When he was seen on TEAM rounds at approximately 1:30 he was on RA and maintaining a pulse ox of 93-96%. He denies reflux, heartburn and any hx of waking up at night with SOB, cough, heartburn. He denies problems with breathing in the past but, he has notbeen able to exert himself due to not being able to walk. He had a brother withasthma. He denies sore throat, rhinitis, chest pain. COVID-19 and respiratory panel were negative last Tuesday and nothing has changed since then. Troponin x 2 has been negative today.. Hemoglobin is stable at 12.1. The BUN is 21 and the creatinine is 0.67 which are stable since last week. He was started on Zosyn by the night hospitalist. MRSA nasal swab was negative. He is back to feeling like his breathing is good. I suspect the low BP was related to hypoxemia with decreased cardeiac function........and possibly due tovalsalva when using the PEP? BP is now 133/77 with a heart rate of 58. Currently he denies cephalgia, lightheadedness, sore throat, chest pain, palpitations, shortness ofbreath at rest, nausea/vomiting/abdominal pain, calf pain. Objective Data Objective Data Vital Signs: Vital Signs Temp Pulse Resp BP Pulse Ox O2 Del Method O2 Flow Rate 97.2 F L 58 L 18 133/77 H 96 Nasal Cannula 1 01/03/25 05:39 01/03/25 13:00 01/03/25 13:00 01/03/25 06:30 01/03/25 14:09 01/03/25 13:00 01/03/25 13:00 FiO2 40 12/28/24 20:23 Oxygen Flow Rate (L/min) 1 Oxygen Delivery Method Nasal Cannula Weight: 207 lb 0.225 oz Body Mass Index (BMI) 24.4 Intake & Output: Intake and Output for Last 24 Hours 01/01/25 01/02/25 01/03/25 23:59 23:59 23:59 Intake Total 1950 / 2450 1900 / 1900 1050 / 1050 Output Total 1800 / 2500 3450 / 3450 1250 / 1250 Balance 150 / -50 -1550 / -1550 -200 / -200 Lab / Micro Data 01/03/25 05:26 01/03/25 05:26 Labs: Laboratory Results - last 24 hr 01/02/25 16:58: POC Glucose 149 H 01/02/25 21:42: POC Glucose 195 H 01/03/25 04:39: POC Glucose 129 H 01/03/25 05:26: WBC 16.7 H, RBC 3.82 L, Hgb 12.1 L, Hct 36.8 L, MCV 96.3 H, MCH 31.7, MCHC 32.9, RDW Std Deviation 51.4 H, RDW Coeff of Arnie 14.6, Plt Count 320,MPV 9.4, Immature Gran % (Auto) 0.500, Neut % (Auto) 84.2 H, Lymph % (Auto) 6.9 L, Gila % (Auto) 6.8, Eos % (Auto) 1.4, Baso % (Auto) 0.2, Absolute Neuts (auto)14.0 H, Absolute Lymphs (auto) 1.15, Nucleated RBC % 0, Sodium 137, Potassium 3.8, Chloride 101, Carbon Dioxide 23.1, Anion Gap 13, BUN 21 H, Creatinine 0.67 L, Estim Creat Clear Calc 116.02, Est GFR (MDRD) Non-Af 104, BUN/Creatinine Ratio 31.9 H, Glucose 132 H, Calcium 9.0, Phosphorus 2.9, Magnesium 1.9, Total Bilirubin 0.34, AST 15, ALT 29, Alkaline Phosphatase 70, Troponin T High Sens 17, Total Protein 6.3, Albumin 3.5, Globulin 2.7, Albumin/Globulin Ratio 1.3 01/03/25 06:42: POC Glucose 143 H 01/03/25 07:36: Troponin T Hi Sens 2 Hr 18 01/03/25 09:41: Troponin T Hi Sens 4Hr 21 01/03/25 10:59: POC Glucose 277 H Micro: Microbiology 01/03/25 08:11 Nasal Secretion MRSA (PCR) - Final 12/28/24 15:15 Mucosa - Nasopharyngeal Respiratory Panel (PCR) - Final 12/28/24 15:15 Mucosa - Nose Coronavirus COVID-19 PCR - Final ABG Data ABG results: ABG 01/03/25 05:10 Specimen Type ART Sample Site L Radial pH 7.50 H Bicarbonate Actual 24.0 Total CO2 25 Base Excess 1 O2 Saturation 96 O2 % 100.0 ABG pCO2 31.1 L ABG pO2 71 L Benji Test Positive O2 Delivery Device NRB Vent Mode Not entered Radiography Diagnostic Testing: Radiology Impression Chest X-Ray 01/03/25 05:20 IMPRESSION: Increasing right basilar infiltrate. This may represent increasing atelectasis or pneumonia. Follow-up to clearing is recommended. Postsurgical changes seen within the cervical spine. Reading Location: [id number] Physical Exam Const alert, oriented x3 and no apparent distress General Appearance: cooperative Resp Resp Narrative: Currently he is not tachypneic and he has no conversational dyspnea. Auscultation of the lungs revealed diminished breath sounds throughout but no wheezing and no crackles. He had no cough with deep breathing. He is 95% saturated on room air. Cardio regular rate, regular rhythm and no gallops Cardio Narrative: No ectopy GI normal to inspection, nondistended, normoactive bowel sounds, soft to palpation and non-tender GI Narrative: He has been taking pantoprazole. Extremity no calf tenderness General Extremity: Negative for edema Assessment & Plan Assessment/Plan (1) Debility: (2) Cervical stenosis of spinal canal: (3) Myelopathy concurrent with and due to spinal stenosis of cervical region: (4) Radiculopathy due to cervical spondylosis at multiple levels: (5) H/O laminectomy: (6) Acute blood loss anemia: (7) Urine retention: (8) Diabetes mellitus, type II: QUALIFIERS: Diabetes mellitus moth exterminator insulin use: without moth exterminator use Diabetes mellitus complication status: without complication QualifiedCode(s): E11.9 - Type 2 diabetes mellitus without complications (9) Presence of cardiac resynchronization therapy defibrillator (PLAY THERAPIST-D): (10) Presence of stent in coronary artery: (11) Dilated cardiomyopathy: (12) Hypoxemia: (13) COPD with acute exacerbation: (14) Pulmonary nodules/lesions, multiple: (15) Insomnia: QUALIFIERS: Insomnia type: drug-induced Qualified Code(s): F19.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 PLAN: Plan 1. Physical therapy was held this morning but he will have therapy in the afternoon as he is back at his baseline. 2. Add fluticasone/Salmeterol 1 inhalation every 12 hours to the current drug regimen. Continue Mucinex, duonebs, PRN Albuterol aerosols. Continue Zosyn for24 H and if he remains stable will transition to Augmentin. 3. Order sputum culture 4. Frank is agreeable to scheduling an appointment for him to follow-up with pulmonary medicine at discharge. Will need PFTs. Also needs to have surveillance for the 1 cm nodule in the left base. Trying to figure out what istriggering the bronchospasm. Rather than tapering the Prednisone to 10 mg for 3days will continue 20 mg of Prednisone for 3 more doses Charges/Coding Visit Charges Inpatient E&M: 92911 Subs Hosp L2 01/03/25 1520 Saumya Masterson Signature (if applicable): CC: ~ Signed [facility]03-13-2025 Progress note Author Armando Shin [facility] Note Date/Time January 03, 2025 6:1 9am [facility] Medical Records Department [address] [place] [address] Progress Note - Hospitalist 01/03/25611 MR#: [id number] Acct: [id number] Name: FRANK ZIMMER Rep #:[id number] : 1960 64 From: Armando Hopper DO PCP: Dr. Reagan Soto MD Status:AD M IN Location: [place] [id number] Hospitalist Note Rapid response was called overhead at approximately 5:30 AM with patient having hypotension and dyspnea. He was noted to have coarse breath sounds over his entire Right lung field with tachypnea in the ~25 bpm range. ABG showed evidence of hyperventilation with pH of 7.50 with a low pCO2 31.1 mmHg. Initially he was also notably hypotensive in the ~70 mmHg systolic range so he was immediately bolused with normal saline and then this was switched to IV albumin because of his history of CHF. His previous imaging was reviewed with CT scan done on December 28, 2024 showing bronchiectasis and evidence of emphysema. His chest x-ray today shows evidence of Right-sided pneumonia with atelectasis likely due to hyperal stasis with patient approximately 2 weeks postoperative from C-spine surgery. Patient was therefore treated with IV Zosyn and IV Solu-Medrol. His blood pressure normalized as well as his respiratory rate. He did complain of pain in his hips and neck so he was given 1 dose of IV ketorolac in addition to his as needed oral oxycodone. 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 Results of imaging and laboratory tests listed below. RUN DATE: 01/03/25 [facility], DEPARTMENT OF LABORATORIES PAGE 1 RUN TIME: 616 Specimen Inquiry [address] [facility] [facility] [place], [address] PATIENT: FRANK ZIMMER LOC: U #: [id number] : 1960 AGE/SX: 64/M FACILITY: [facility] ROOM: [facility] RE12/24/[address]: Dr. Saumya Hernández STATUS:ADM IN ED: 1 DIS: ~ SPEC #: [id number] WILFRIDO: 01/03/25 STATUS: COMP REQ #: [id number] RECD: 01/03/[address]: Dr. Armando Garcia DO ENTERED: 01/03/25-[address] [facility] DR: DO Dr. Reagan Campo MD ~ Test Result Flag Reference Range CBCD WBC 16.7 H 4.4-11.0 K/mm3 RBC 3.82 L 4.6-6.2 M/mm3 HGB 12.1 L 13.0-16.5 g/dL HCT 36.8 L 40-54 % MCV 96.3 H 80-94 fL MCH 31.7 27.0-32.0 pg MCHC 32.9 32-36 g/dL RDW CV 14.6 11.6-14.6 % RDW SD 51.4 H 35.1-43.9 fl PLT 320 150-450 K/mm3 MPV 9.4 6.2-12.0 fl NEUT% 84.2 H 47-70 % LY% 6.9 L 19-41 % MONO% 6.8 0-10 % EO% 1.4 0-5 % BASO% 0.2 0-1 % IG% 0.500 0.0-0.9 % IG% - Immature Granulocytes (promyelocytes, myelocytes and metamyelocytes) > 1% indicates that a LEFT SHIFT is Present. Absolute Neut 14.0 H 2.0-7.7 X10^3/uL Absolute Lymph 1.15 0.83-4.51 X10^3/uL NUCLEATED RBC 0 0-5 % RUN DATE: 01/03/25 [facility], DEPARTMENT OF LABORATORIES PAGE 1 RUN TIME: 617 Specimen Inquiry [address] [facility], [place], [address] PATIENT: FRANK ZIMMER LOC: [facility] #: [id number] : 1960 AGE/SX: 64/M FACILITY: [facility] ROOM: [facility] RE12/24/[address]: Dr. Saumya Hernández STATUS:ADM IN ED: 1 DIS: ~ SPEC #: [id number] WILFRIDO: 01/03/25 STATUS: COMP REQ #: [id number] RECD: 01/03/[address]: Dr. Saumya Bobo, DO ENTERED: 01/03/[address]: Dr. Reagan Soto MD ~ Test Result Flag Reference Range IBG Blood Gas Type ART SITE L Radial BENJI TEST Positive Mode Not entered O2 Delivery Dev NRB FI02 100.0 pH 7.50 H 7.35-7.45 pCO2 31.1 L 35-45 mmHg PO2 71 L 75-100 mmHG HCO3 24.0 22-26 mmol/L BE 1 -2 to +2 mmol/L TOTAL CO2 25 mmol/L SO2 96 95-99 % RUN DATE: 01/03/25 [facility], DEPARTMENT OF LABORATORIES PAGE 1 RUN TIME: 617 Specimen Inquiry [address], [place], [place], [id number] PATIENT: FRANK ZIMMER LOC: U #: [id number] : 1960 AGE/SX: 64/M FACILITY: [facility] ROOM: [facility] RE12/24/[address]: Dr. Saumya Hernández STATUS:ADM IN ED: 1 DIS: ~ SPEC #: [id number] WILFRIDO: 01/03/25 STATUS: COMP REQ #: [id number] RECD: 01/03/25-[address]: Dr. Armando Garcia, DO ENTERED: 01/03/25-[address]: Dr. Saumya Bobo,DO Dr. Reagan Soto MD ~ Test Result Flag Reference Range COMP METABOLIC GLU 132 H 70-99 mg/dL BUN 21 H 4-19 mg/dL CREAT,SERUM 0.67 L 0.70-1.20 mg/dL eGFR 104 >60 mL/min/1.73m2 CKD-EPI Creatinine Equation (2020) ECRCL 116.02 50-250 ml/min BUN/CRE 31.9 H 10-20 RATIO T PROT 6.3 5.9-8.4 g/dL ALB 3.5 3.4-4.8 g/dL GLOB 2.7 2.2-4.2 g/dL A/G 1.3 0.9-2.4 RATIO Calcium 9.0 7.6-11.0 mg/dL PHOS 2.9 2.7-4.5 mg/dL Trop T High Sen 17 <=22 ng/L AST 15 <=37 U/L ALK PHOS 70 40-129 U/L ALT 29 <=46 U/L T BILI 0.34 0.00-1.30 mg/dL MG 1.9 1.5-2.2 mg/dL NA 137 133-145 mmol/L Potassium 3.8 3.3-5.1 mmol/L CL 101 98-108 mmol/L CO2 23.1 21.0-32.0 mmol/L GAP 13 5-15 [facility] Imaging Services [address] [place] [address] Chest 1 View (Portable) MR#: [id number] Acct: [id number] Name: FRANK ZIMMER Rep #: [id number] : 1960 M 64 From: Falguni Caraballo MD PCP: Dr. Reagan Stoo MD Status: ADM IN Study: Chest 1 View (Portable) Date of Exam: 01/03/25 Exam# [id number] Ordering Dr: Armando Garcia DO PROCEDURE: CHEST 1 VIEW (PORTABLE) 01/03/2025 REASON FOR EXAM: SOB TECHNIQUE: Frontal view of the chest. COMPARISON: Chest x-ray dated 12/28/2024. FINDINGS: Since prior examination, the patient has undergone cervical spine decompression procedure. Surgical hardware and midline sola are partially visualized. Pacemaker/ICD device again seen overlying the left chest. The heart is normal in size. Increasing hazy infiltrates seen at the right lung base. This may suggest atelectasis or pneumonia. Follow-up to clearing is recommended. RAD/Chest 1 View (Portable) IMPRESSION: Increasing right basilar infiltrate. This may represent increasing atelectasis or pneumonia. Follow-up to clearing is recommended. Postsurgical changes seen within the cervical spine. Reading Location: [id number] CC: Dr. Armando Garcia DO; Dr. Reagan Soto MD ~ Cell Pourer: Signed 01/03/25618 <Electronically signed by Armando Garcia DO> Cosigner Signature (if applicable): CC: ~ Signed [facility] Work Phone: 1(984) [phone] Progress note [facility] Medical Records Department [address] [place] [address] Progress Note - Hospitalist 01/03/25611 MR#: [id number] Acct: [id number] Name: FRANK ZIMMER Rep #:[id number] : 1960 64 From: Armando Hopper DO PCP: Dr. Reagan Soto MD Status:AD M IN Location: [place] [address]-1 Hospitalist Note Rapid response was called overhead at approximately 5:30 AM with patient having hypotension and dyspnea. He was noted to have coarse breath sounds over his entire Right lung field with tachypnea in the ~25 bpm range. ABG showed evidence of hyperventilation with pH of 7.50 with a low pCO2 31.1 mmHg.Initially he was also notably hypotensive in the ~70 mmHg systolic range so he was immediately bolused with normal saline and then this was switched to IV albumin because of his history of CHF. His previous imaging was reviewed with CT scan done on December 28, 2024 showing bronchiectasis and evidence of emphysema. His chest x-ray today shows evidence of Right-sided pneumonia with atelectasis likely due to hyperal stasis with patient approximately 2 weeks postoperative from C-spine surgery. Patientwas therefore treated with IV Zosyn and IV Solu-Medrol. His blood pressure normalized as well as his respiratory rate. He did complain of pain in his hips and neck so he was given 1 dose of IV ketorolac in addition to his as needed oral oxycodone. 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 Results of imaging and laboratory tests listed below. RUN DATE: 01/03/25 [facility], DEPARTMENT OF LABORATORIES PAGE 1 RUN TIME: 06 Specimen Inquiry [facility], [place], [address] PATIENT: FRANK ZIMMER LOC: U #: [id number] : 1960 AGE/SX: 64/M FACILITY: [facility] ROOM: [facility] RE12/24/[address]: Dr. Saumya Hernández STATUS:ADM IN ED: 1 DIS: ~ SPEC #: [id number] WILFRIDO: 01/03/25 STATUS: COMP REQ #: [id number] RECD: 01/03/[address]: Dr. Armando Garcia, DO ENTERED: 01/03/25-[address] [facility] DR: Dr. Saumya Bobo,DO Dr. Reagan Soto MD ~ Test Result Flag Reference Range CBCD WBC 16.7 H 4.4-11.0 K/mm3 RBC 3.82 L 4.6-6.2 M/mm3 HGB 12.1 L 13.0-16.5 g/dL HCT 36.8 L 40-54 % MCV 96.3 H 80-94 fL MCH 31.7 27.0-32.0 pg MCHC 32.9 32-36 g/dL RDW CV 14.6 11.6-14.6 % RDW SD 51.4 H 35.1-43.9 fl PLT 320 150-450 K/mm3 MPV 9.4 6.2-12.0 fl NEUT% 84.2 H 47-70 % LY% 6.9 L 19-41 % MONO% 6.8 0-10 % EO% 1.4 0-5 % BASO% 0.2 0-1 % IG% 0.500 0.0-0.9 % IG% - Immature Granulocytes (promyelocytes, myelocytes and metamyelocytes) > 1% indicates that a LEFT SHIFT is Present. Absolute Neut 14.0 H 2.0-7.7 X10^3/uL Absolute Lymph 1.15 0.83-4.51 X10^3/uL NUCLEATED RBC 0 0-5 % RUN DATE: 01/03/25 [facility], DEPARTMENT OF LABORATORIES PAGE 1 RUN TIME: 0618 Specimen Inquiry [address] [place] [address], [place], [address] PATIENT: FRANK ZIMMER LOC: U #: [id number] : 1960 AGE/SX: 64/M FACILITY: [facility] ROOM: [facility] RE12/24/[address]: Dr. Saumya Hernández STATUS:ADM IN ED: 1 DIS: ~ SPEC #: [id number] WILFRIDO: 01/03/25 STATUS: COMP REQ #: [id number] RECD: 01/03/[address]: Dr. Saumya Bobo, DO ENTERED: 01/03/[address] [facility] [address]: Dr. Reagan Soto MD ~ Test Result Flag Reference Range IBG Blood Gas Type ART SITE L Radial BENJI TEST Positive Mode Not entered O2 Delivery Dev NRB FI02 100.0 pH 7.50 H 7.35-7.45 pCO2 31.1 L 35-45 mmHg PO2 71 L 75-100 mmHG HCO3 24.0 22-26 mmol/L BE 1 -2 to +2 mmol/L TOTAL CO2 25 mmol/L SO2 96 95-99 % RUN DATE: 01/03/25 [facility], DEPARTMENT OF LABORATORIES PAGE 1 RUN TIME: 617 Specimen Inquiry [address], [place], [address] PATIENT: FRANK ZIMMER LOC: U #: [id number] : 1960 AGE/SX: 64/M FACILITY: [facility] ROOM: [facility] RE12/24/[address]: Dr. Saumya Hernández STATUS:ADM IN ED: 1 DIS: ~ SPEC #: [id number] WILFRIDO: 01/03/25 STATUS: COMP REQ #: [id number] RECD: 01/03/[address]: Dr. Armando Garcia, DO ENTERED: 01/03/25-[address]: Dr. Saumya Bobo,DO Dr. Reagan Soto MD ~ Test Result Flag Reference Range COMP METABOLIC GLU 132 H 70-99 mg/dL BUN 21 H 4-19 mg/dL CREAT,SERUM 0.67 L 0.70-1.20 mg/dL eGFR 104 >60 mL/min/1.73m2 CKD-EPI Creatinine Equation (2020) ECRCL 116.02 50-250 ml/min BUN/CRE 31.9 H 10-20 RATIO T PROT 6.3 5.9-8.4 g/dL ALB 3.5 3.4-4.8 g/dL GLOB 2.7 2.2-4.2 g/dL A/G 1.3 0.9-2.4 RATIO Calcium 9.0 7.6-11.0 mg/dL PHOS 2.9 2.7-4.5 mg/dL Trop T High Sen 17 <=22 ng/L AST 15 <=37 U/L ALK PHOS 70 40-129 U/L ALT 29 <=46 U/L T BILI 0.34 0.00-1.30 mg/dL MG 1.9 1.5-2.2 mg/dL NA 137 133-145 mmol/L Potassium 3.8 3.3-5.1 mmol/L CL 101 98-108 mmol/L CO2 23.1 21.0-32.0 mmol/L GAP 13 5-15 [facility] Imaging Services [address] [place], [place] [id number] Chest 1 View (Portable) MR#: [id number] Acct: [id number] Name: FRANK ZIMMER Rep #: [id number] : 1960 M 64 From: Falguni Caraballo MD PCP: Dr. Reagan Soto MD Status: ADM IN Study: Chest 1 View (Portable) Date of Exam: 01/03/25 Exam# [id number] Ordering Dr: Armando Garcia DO PROCEDURE: CHEST 1 VIEW (PORTABLE) 01/03/2025 REASON FOR EXAM: SOB TECHNIQUE: Frontal view of the chest. COMPARISON: Chest x-ray dated 12/28/2024. FINDINGS: Since prior examination, the patient has undergone cervical spine decompression procedure. Surgicalhardware and midline sola are partially visualized. Pacemaker/ICD device again seen overlying the left chest. The heart is normal in size. Increasing hazy infiltrates seen at the right lung base. This may suggest atelectasis or pneumonia. Follow-up to clearing is recommended. RAD/Chest 1 View (Portable) IMPRESSION: Increasing right basilar infiltrate. This may represent increasing atelectasis or pneumonia. Follow-up to clearing is recommended. Postsurgical changes seen within the cervical spine. Reading Location: [id number] CC: Dr. Armando Garcia DO; Dr. Reagan Soto MD ~ Cell Pourer: Signed 01/03/25 06 Cosigner Signature (if applicable): CC: ~ Signed [facility]03-13-2025 Radiology Diagnostic study note [facility] Imaging Services [address] [place] [address] Chest 1 View (Portable) MR#: [id number] Acct: [id number] Name: FRANK ZIMMER Rep #: [id number] : 1960 M 64 From: Ritesh Caraballo MD PCP: Dr. Reagan Soto MD Status: AD M IN Study:Chest 1 View (Portable) Date of Exam: 01/03/25 Exam# [id number] Ordering Dr: Armando Davis DO PROCEDURE: CHEST 1 VIEW (PORTABLE) 01/03/2025 REASON FOR EXAM: SOB TECHNIQUE: Frontal view of the chest. COMPARISON: Chest x-ray dated 12/28/2024. FINDINGS: Since prior examination, the patient has undergone cervical spine decompression procedure. Surgicalhardware and midline sola are partially visualized. Pacemaker/ICD device again seen overlying the left chest. The heart is normal in size. Increasing hazy infiltrates seen at the right lung base. This may suggest atelectasis or pneumonia. Follow-up to clearing is recommended. RAD/Chest 1 View (Portable) IMPRESSION: Increasing right basilar infiltrate. This may represent increasing atelectasis or pneumonia. Follow-up to clearing is recommended. Postsurgical changes seen within the cervical spine. Reading Location: [id number] CC: Dr. Armando Garcia DO; Dr. Reagan Soto MD ~ Cell Pourer: Signed [facility]03-11-2025 Progress note Author Saumya Bobo [facility] Note Date/Time January 01, 2025 11: 22am [facility] Medical Records Department [address] [place] [address] Progress Note 01/01/25 0900 MR#: [id number] Acct: [id number] Name: FRANK ZIMMER Rep #:[id number] : 1960 64 From: Saumya Bobo DO PCP: Dr. Reagan Soto MD Status:AD M IN Location: [id number] Subjective Subjective Afebrile VSS - Maintaining appropriate oxygen saturation on RA-93 to 98% Oral intake - FOOD good FLUIDS good Discussed with nursing - continues to retain urine. The 2 postvoid residual since the Fernandez was discontinued or 600 and 364. Reviewed the THERAPY notes Medication list reviewed. He is distraught and tearful over the urine retention. We discussed the retention may be due to neurogenic bladder due to severe cervical canal stenosis. We made a plan to reinsert the Fernandez using a urojet and increasing the Flomax to 0.8 mg. After 5 doses of 0.8 mg will repeat a voiding trial and if fails the second voiding trial he will go home with a catheter and have to follow up with urology. He is having insomnia........I suspect due to the high dose steroids for acute exacerbation of COPD. Denies SOB. Rare cough now. No orthopnea and no CP or palpitations. Denies lightheadedness. He tells me that he is getting more control over the R leg andhe feels it is getting stronger. Objective Data Objective Data Vital Signs: Vital Signs Temp Pulse Resp BP Pulse Ox O2 Del Method O2 Flow Rate 97.6 F L 58 L 15 145/80 H 93 Room Air 4 01/01/25 06:00 01/01/25 06:00 01/01/25 06:00 01/01/25 06:00 01/01/25 06:00 01/01/25 06:00 12/29/24 09:35 FiO2 40 12/28/24 20:23 Oxygen Flow Rate (L/min) 4 Oxygen Delivery Method Room Air Weight: 207 lb 0.225 oz Body Mass Index (BMI) 24.4 Intake & Output: Intake and Output for Last 24 Hours 12/31/24 12/31/24 01/01/25 00:59 23:59 23:59 Intake Total 3440 / 3790 2210 / 2210 1350 / 1350 Output Total 2550 / 3200 3275 / 3625 1450 / 1450 Balance 890 / 590 -1065 / -1415 -100 / -100 Lab / Micro Data 12/28/24 12:20 12/28/24 12:20 Labs: Laboratory Results - last 24 hr 12/31/24 12:00: POC Glucose 155 H 12/31/24 17:06: POC Glucose 196 H 12/31/24 21:40: POC Glucose 322 H 01/01/25 06:00: POC Glucose 126 H Micro: Microbiology 12/28/24 15:15 Mucosa - Nasopharyngeal Respiratory Panel (PCR) - Final 12/28/24 15:15 Mucosa - Nose Coronavirus COVID-19 PCR - Final Physical Exam Const alert Constitutional Narrative: upset and tearful about urine retention. Resp clear to auscultation bilaterally Resp Narrative: No conversational dyspnea Effort and Inspection: Negative for tachypneic or respiratory distress Auscultation: diminished lung sounds Cardio regular rate, regular rhythm and no gallops Cardio Narrative: No ectopy GI normal to inspection, nondistended, normoactive bowel sounds, soft to palpation and non-tender Extremity no calf tenderness General Extremity: Negative for edema Skin Wound Narrative: Will examine the incision later today when nursing changes the dressing. Psych Psych Narrative: anxious and emotional today. Assessment & Plan Assessment/Plan (1) Debility: (2) Cervical stenosis of spinal canal: (3) Myelopathy concurrent with and due to spinal stenosis of cervical region: (4) Radiculopathy due to cervical spondylosis at multiple levels: (5) H/O laminectomy: (6) Acute blood loss anemia: (7) Urine retention: PLAN: Possibly due to neurogenic bladder. 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 PLAN: Plan 1. Continue therapy 2. Increase the Flomax to 0.8 mg daily 3. Reinsert the Fernandez catheter with a Uro-Jet 4. Continue to taper prednisone 6. Continue aerosols for 1-2 more days and then DC duoneb, add a long acting inhaler and continue Albuterol aerosols PRN. 7. Continue sliding scale insulin Charges/Coding Visit Charges Inpatient E&M: 83807 Subs Hosp L1 01/01/25 1122 <Electronically signed by Saumya Bobo DO> Saumya Bobo DO Cosigner Signature (if applicable): CC: ~ Signed [facility] Work Phone: 1(133) 794-759903-11-2025 Progress note [facility] Medical Records Department [address] [place] [address] Progress Note 01/01/25 0900 MR#: [id number] Acct: [id number] Name: FRANK ZIMMER Rep #:[id number] : 1960 64 From: Saumya Bobo DO PCP: Dr. Reagan Soto MD Status:AD M IN Location: [place] [address] Subjective Subjective Afebrile VSS - Maintaining appropriate oxygen saturation on to 98% Oral intake - FOOD good FLUIDS good Discussed with nursing - continues to retain urine. The 2 postvoid residual since the Fernandez was discontinued or 600 and 364. Reviewed the THERAPY notes Medication list reviewed. He is distraught and tearful over the urine retention. We discussed the retention may be due to neurogenic bladder due to severe cervical canal stenosis. We made a plan to reinsert the Fernandez using a urojet and increasing the Flomax to 0.8 mg. After 5 doses of 0.8 mg will repeat a voiding trial and if fails the second voiding trial he will go home with a catheter and have to follow up with urology. He is having insomnia........I suspect due to the high dose steroids for acute exacerbation of COPD. Denies SOB. Rare cough now. No orthopnea and no CP or palpitations. Denies lightheadedness. He tells me that he is getting more control over the R leg andhe feels it is getting stronger. Objective Data Objective Data Vital Signs: Vital Signs Temp Pulse Resp BP Pulse Ox O2 Del Method O2 Flow Rate 97.6 F L 58 L 15 145/80 H 93 Room Air 4 01/01/25 06:00 01/01/25 06:00 01/01/25 06:00 01/01/25 06:00 01/01/25 06:00 01/01/25 06:00 12/29/24 09:35 FiO2 40 12/28/24 20:23 Oxygen Flow Rate (L/min) 4 Oxygen Delivery Method Room Air Weight: 207 lb 0.225 oz Body Mass Index (BMI) 24.4 Intake & Output: Intake and Output for Last 24 Hours 12/31/24 12/31/24 01/01/25 00:59 23:59 23:59 Intake Total 3440 / 3790 2210 / 2210 1350 / 1350 Output Total 2550 / 3200 3275 / 3625 1450 / 1450 Balance 890 / 590 -1065 / -1415 -100 / -100 Lab / Micro Data 12/28/24 12:20 12/28/24 12:20 Labs: Laboratory Results - last 24 hr 12/31/24 12:00: POC Glucose 155 H 12/31/24 17:06: POC Glucose 196 H 12/31/24 21:40: POC Glucose 322 H 01/01/25 06:00: POC Glucose 126 H Micro: Microbiology 12/28/24 15:15 Mucosa - Nasopharyngeal Respiratory Panel (PCR) - Final 12/28/24 15:15 Mucosa - Nose Coronavirus COVID-19 PCR - Final Physical Exam Const alert Constitutional Narrative: upset and tearful about urine retention. Resp clear to auscultation bilaterally Resp Narrative: No conversational dyspnea Effort and Inspection: Negative for tachypneic or respiratory distress Auscultation: diminished lung sounds Cardio regular rate, regular rhythm and no gallops Cardio Narrative: No ectopy GI normal to inspection, nondistended, normoactive bowel sounds, soft to palpation and non-tender Extremity no calf tenderness General Extremity: Negative for edema Skin Wound Narrative: Will examine the incision later today when nursing changes the dressing. Psych Psych Narrative: anxious and emotional today. Assessment & Plan Assessment/Plan (1) Debility: (2) Cervical stenosis of spinal canal: (3) Myelopathy concurrent with and due to spinal stenosis of cervical region: (4) Radiculopathy due to cervical spondylosis at multiple levels: (5) H/O laminectomy: (6) Acute blood loss anemia: (7) Urine retention: PLAN: Possibly due to neurogenic bladder. 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 PLAN: Plan 1. Continue therapy 2. Increase the Flomax to 0.8 mg daily 3. Reinsert the Fernandez catheter with a Uro-Jet 4. Continue to taper prednisone 6. Continue aerosols for 1-2 more days and then DC duoneb, add a long acting inhaler and continue Albuterol aerosols PRN. 7. Continue sliding scale insulin Charges/Coding Visit Charges Inpatient E&M: 81025 [facility] Hosp 01/01/25 1122 Saumya Bobo DO Cosigner Signature (if applicable): CC: ~ Signed [facility]03-10-2025 Progress note Author [facility]ya [facility] Note Date/Time December 31, 2024 10: 32am [facility] Medical Records Department [address] [place] [address] Progress Note 12/31/24 0834 MR#: [id number] Acct: [id number] Name: FRANK ZIMMER Rep #:[id number] : 1960 64 From: Saumya Bobo DO PCP: Dr. Reagan Soto MD Status:AD M IN Location: [place] [address]-1 Subjective Subjective Afebrile VSS - Maintaining appropriate oxygen saturation on RA Oral intake - FOOD good FLUIDS good The blood sugar record was reviewed. Blood sugars have increased with the initiation of prednisone for acute exacerbation of COPD. Adequate control usingSSI. No hypoglycemia. Discussed with nursing - no problems that need addressed. Voiding trial today. Reviewed the THERAPY notes Medication list reviewed. Frank tells me that he feels good today and breathing is much better. No longerrequiring supplemental oxygen. Denies sore throat, shortness of breath, chest pain, palpitations, lightheadedness, calf pain and dysuria. Neck pain is getting better. Objective Data Objective Data Vital Signs: Vital Signs Temp Pulse Resp BP Pulse Ox O2 Del Method O2 Flow Rate 97.5 F L 69 16 106/70 94 Room Air 4 12/31/24 05:55 12/31/24 07:12 12/31/24 07:12 12/31/24 05:55 12/31/24 07:12 12/31/24 07:12 12/29/24 09:35 FiO2 40 12/28/24 20:23 Oxygen Flow Rate (L/min) 4 Oxygen Delivery Method Room Air Weight: 207 lb 0.225 oz Body Mass Index (BMI) 24.4 Intake & Output: Intake and Output for Last 24 Hours 12/29/24 12/31/24 12/31/24 23:59 00:59 23:59 Intake Total 1840 / 2340 3440 / 3790 750 / 750 Output Total 1975 / 2675 2550 / 3200 1375 / 1375 Balance -135 / -335 890 / 590 -625 / -625 Lab / Micro Data 12/28/24 12:20 12/28/24 12:20 Labs: Laboratory Results - last 24 hr 12/30/24 11:25: POC Glucose 145 H 12/30/24 15:57: POC Glucose 216 H 12/30/24 22:12: POC Glucose 275 H 12/31/24 04:36: POC Glucose 127 H Micro: Microbiology 12/28/24 15:15 Mucosa - Nasopharyngeal Respiratory Panel (PCR) - Final 12/28/24 15:15 Mucosa - Nose Coronavirus COVID-19 PCR - Final Physical Exam Const alert, oriented x3 and no apparent distress General Appearance: cooperative Resp clear to auscultation bilaterally Resp Narrative: No conversational dyspnea. Denies feeling congested. Better air exchange. Effort and Inspection: Negative for tachypneic Cardio regular rate, regular rhythm and no gallops Cardio Narrative: occasional ectopic. GI normal to inspection, nondistended, normoactive bowel sounds, soft to palpation and non-tender Extremity no calf tenderness General Extremity: Negative for edema Skin Wound Narrative: Incision is intact with no erythema, no dehiscence and no DC. Psych affect normal Assessment & Plan Assessment/Plan (1) Debility: (2) Cervical stenosis of spinal canal: (3) Myelopathy concurrent with and due to spinal stenosis of cervical region: (4) Radiculopathy due to cervical spondylosis at multiple levels: (5) H/O laminectomy: (6) Acute blood loss anemia: (7) Urine retention: (8) Diabetes mellitus, type II: QUALIFIERS: Diabetes mellitus moth exterminator insulin use: without moth exterminator use Diabetes mellitus complication status: without complication QualifiedCode(s): E11.9 - Type 2 diabetes mellitus without complications (9) Presence of cardiac resynchronization therapy defibrillator (PLAY THERAPIST-D): (10) Presence of stent in coronary artery: (11) Dilated cardiomyopathy: (12) Hypoxemia: (13) COPD with acute exacerbation: PLAN: Has never had PFTs. Will have him follow-up with pulmonary medicine for pulmonary function tests and to follow the 1 cm nodule in the left lower lobe. (14) Pulmonary nodules/lesions, multiple: PLAN: Plan 1. Continue therapy 2. Change the scheduled oxycodone to 10 mg once daily at 0700 and change as needed oxycodone to 5 mg every 4 hours as needed pain 4-10. 3. Change prednisone to 20 mg daily x 3 days and then decrease to 10 mg daily x3 days then discontinue and start inhalers. 4. Change to DuoNeb to every 6 hours while awake and continue as needed albuterol. 5. Follow up with [facility] medicine [place] for suspected COPD/PFT's and for pulmonary nodules. Charges/Coding Visit Charges Inpatient E&M: 97932 Subs Hosp L1 12/31/24 1032 <Electronically signed by Saumya oBbo DO> Saumya Bobo DO Cosigner Signature (if applicable): CC: ~ Signed [facility] Work Phone: 1(415) 874-324103-10-2025 Progress note [facility] Medical Records Department [address] [place] [address] Progress Note 12/31/24 0834 MR#: [id number] Acct: [id number] Name: FRANK ZIMMER Rep #:[id number] : 1960 64 From: Saumya Bobo DO PCP: Dr. Reagan Soto MD Status:AD M IN Location: [place] [address] Subjective Subjective Afebrile VSS - Maintaining appropriate oxygen saturation on RA Oral intake - FOOD good FLUIDS good The blood sugar record was reviewed. Blood sugars have increased with the initiation of prednisone for acute exacerbation of COPD. Adequate control usingSSI. No hypoglycemia. Discussed with nursing - no problems that need addressed. Voiding trial today. Reviewed the THERAPY notes Medication list reviewed. Frank tells me that he feels good today and breathing is much better. No longerrequiring supplemental oxygen. Denies sore throat, shortness of breath, chest pain, palpitations, lightheadedness, calf pain and dysuria. Neck pain is getting better. Objective Data Objective Data Vital Signs: Vital Signs Temp Pulse Resp BP Pulse Ox O2 Del Method O2 Flow Rate 97.5 F L 69 16 106/70 94 Room Air 4 12/31/24 05:55 12/31/24 07:12 12/31/24 07:12 12/31/24 05:55 12/31/24 07:12 12/31/24 07:12 12/29/24 09:35 FiO2 40 12/28/24 20:23 Oxygen Flow Rate (L/min) 4 Oxygen Delivery Method Room Air Weight: 207 lb 0.225 oz Body Mass Index (BMI) 24.4 Intake & Output: Intake and Output for Last 24 Hours 12/29/24 12/31/24 12/31/24 23:59 00:59 23:59 Intake Total 1840 / 2340 3440 / 3790 750 / 750 Output Total 1975 / 2675 2550 / 3200 1375 / 1375 Balance -135 / -335 890 / 590 -625 / -625 Lab / Micro Data 12/28/24 12:20 12/28/24 12:20 Labs: Laboratory Results - last 24 hr 12/30/24 11:25: POC Glucose 145 H 12/30/24 15:57: POC Glucose 216 H 12/30/24 22:12: POC Glucose 275 H 12/31/24 04:36: POC Glucose 127 H Micro: Microbiology 12/28/24 15:15 Mucosa - Nasopharyngeal Respiratory Panel (PCR) - Final 12/28/24 15:15 Mucosa - Nose Coronavirus COVID-19 PCR - Final Physical Exam Const alert, oriented x3 and no apparent distress General Appearance: cooperative Resp clear to auscultation bilaterally Resp Narrative: No conversational dyspnea. Denies feeling congested. Better air exchange. Effort and Inspection: Negative for tachypneic Cardio regular rate, regular rhythm and no gallops Cardio Narrative: occasional ectopic. GI normal to inspection, nondistended, normoactive bowel sounds, soft to palpation and non-tender Extremity no calf tenderness General Extremity: Negative for edema Skin Wound Narrative: Incision is intact with no erythema, no dehiscence and no DC. Psych affect normal Assessment & Plan Assessment/Plan (1) Debility: (2) Cervical stenosis of spinal canal: (3) Myelopathy concurrent with and due to spinal stenosis of cervical region: (4) Radiculopathy due to cervical spondylosis at multiple levels: (5) H/O laminectomy: (6) Acute blood loss anemia: (7) Urine retention: (8) Diabetes mellitus, type II: QUALIFIERS: Diabetes mellitus moth exterminator insulin use: without moth exterminator use Diabetes mellitus complication status: without complication QualifiedCode(s): E11.9 - Type 2 diabetes mellitus without complications (9) Presence of cardiac resynchronization therapy defibrillator (PLAY THERAPIST-D): (10) Presence of stent in coronary artery: (11) Dilated cardiomyopathy: (12) Hypoxemia: (13) COPD with acute exacerbation: PLAN: Has never had PFTs. Will have him follow-up with pulmonary medicine for pulmonary function tests and to follow the 1 cm nodule in the left lower lobe. (14) Pulmonary nodules/lesions, multiple: PLAN: Plan 1. Continue therapy 2. Change the scheduled oxycodone to 10 mg once daily at 0700 and change as needed oxycodone to 5 mg every 4 hours as needed pain 4-10. 3. Change prednisone to 20 mg daily x 3 days and then decrease to 10 mg daily x3 days then discontinue and start inhalers. 4. Change to DuoNeb to every 6 hours while awake and continue as needed albuterol. 5. Follow up with pul[facility]Ary medicine at [place] for suspected COPD/PFT's and for pulmonary nodules. Charges/Coding Visit Charges Inpatient E&M: 52055 Subs Hosp L1 12/31/24 1032 Saumya Bobo DO Cosigner Signature (if applicable): CC: ~ Signed [facility]03-08-2025 Progress note Author Saumya Bobo [facility] Note Date/Time December 29, 2024 12:0 2pm [facility] Medical Records Department [address] [place] [address] Progress Note 12/29/24 1102 MR#: [id number] Acct: [id number] Name: FRANK ZIMMER Rep #:[id number] : 1960 64 From: Saumya Bobo DO PCP: Dr. Reagan Soto MD Status:AD M IN Location: [place] [address] Subjective Subjective Afebrile VSS - Maintaining appropriate oxygen saturation -he is 96 to 100% today on 4 L nasal cannula. Oral intake - FOOD good FLUIDS B12 1550 in yesterday but had 3775 5 for negative fluid balance of -2225. The blood sugar record was reviewed. Blood sugar last night at bedtime was 231 but fasting today is 113. He is on a sliding scale since he has been placed on prednisone. Discussed with nursing - no problems that need addressed Reviewed the THERAPY notes Medication list reviewed. Respiratory panel was negative. COVID was negative. Troponin x 3 were all normal. CTA was negative for pulmonary emboli. There was increased markings in the lungbases suggestive of scarring and bronchiectasis. Evidence of emphysema. There is a 1 cm noncalcified nodule in the posterior medial aspect of the left lower lobe and there is a tiny nodular density adjacent to the nodule. 3-month follow-up was recommended. There was some dilation of the proximal abdominal aorta. Tells me that he feels better today. He has been using the IS and PAP and has been able to cough up some secretions. Chest is not as tight and he denies SOB at rest today. Pulse ox on RA when I was in the room at rest was 96%. O2 was removed. I reviewed chest CT's dating back to 2018. Has had multiple subcentimeter nodules in both lungs. The nodule in the LLL is now 1 cm with a subcentimeter nodule adjacent to the 1 cm nodule. Will need follow up. Frank and I discussedfollow up with pulmonary medicine post DC from rehab for PFT's/COPD and for follow up on the LLL nodule which now measures 1 cm. Objective Data Objective Data Vital Signs: Vital Signs Temp Pulse Resp BP Pulse Ox O2 Del Method O2 Flow Rate 97.7 F L 69 18 130/77 H 96 Nasal Cannula 4 12/29/24 06:00 12/29/24 06:42 12/29/24 06:42 12/29/24 06:00 12/29/24 07:59 12/29/24 06:42 12/29/24 09:35 FiO2 40 12/28/24 20:23 Oxygen Flow Rate (L/min) 4 Oxygen Delivery Method Nasal Cannula Weight: 207 lb 0.225 oz Body Mass Index (BMI) 24.4 Intake & Output: Intake and Output for Last 24 Hours 12/27/24 12/28/24 12/29/24 23:59 23:59 23:59 Intake Total 1900 / 1900 1550 / 1550 240 / 240 Output Total 2900 / 3025 3775 / 3775 600 / 600 Balance -1000 / -1125 -2225 / -2225 -360 / -360 Lab / Micro Data 12/28/24 12:20 12/28/24 12:20 Labs: Laboratory Results - last 24 hr 12/28/24 12:15: POC Glucose 110 H 12/28/24 12:20: WBC 8.6, RBC 3.82 L, Hgb 12.2 L, Hct 35.9 L, MCV 94.0, MCH 31.9,MCHC 34.0, RDW Std Deviation 48.0 H, RDW Coeff of Arnie 14.0, Plt Count 216, MPV 10.1, Immature Gran % (Auto) 0.500, Neut % (Auto) 76.9 H, Lymph % (Auto) 10.2 L,Gila % (Auto) 10.2 H, Eos % (Auto) 1.7, Baso % (Auto) 0.5, Absolute Neuts (auto)6.6, Absolute Lymphs (auto) 0.88, Nucleated RBC % 0, Sodium 136, Potassium 4.6, Chloride 100, Carbon Dioxide 20.5 L, Anion Gap 15, BUN 19, Creatinine 0.68 L, Estim Creat Clear Calc 116.02, Est GFR (MDRD) Non-Af 103, BUN/Creatinine Ratio 27.6 H, Glucose 115 H, Calcium 9.0, Troponin T High Sens 18, NT pro BNP II 521 12/28/24 13:43: Troponin T Hi Sens 2 Hr 17 12/28/24 16:51: Troponin T Hi Sens 4Hr 17 12/28/24 16:58: POC Glucose 130 H 12/28/24 20:49: POC Glucose 231 H 12/29/24 05:25: POC Glucose 113 H Micro: Microbiology 12/28/24 15:15 Mucosa - Nasopharyngeal Respiratory Panel (PCR) - Final 12/28/24 15:15 Mucosa - Nose Coronavirus COVID-19 PCR - Final ABG Data ABG results: ABG 12/28/24 13:21 Specimen Type ART Sample Site R Radial pH 7.43 Bicarbonate Actual 23.2 Total CO2 24 Base Excess -1 O2 Saturation 86 L O2 % 4.0 ABG pCO2 34.8 L ABG pO2 50 L Benji Test Positive O2 Delivery Device Cannula Vent Mode Not entered Radiography Diagnostic Testing: Radiology Impression Chest X-Ray 12/28/24 12:32 IMPRESSION: 1. Similar mild chronic interstitial prominence without definite or visible acute cardiopulmonary process. 2. Additional description as above. Reading Location: [id number] Chest CTA 12/28/24 14:02 IMPRESSION: No evidence of pulmonary embolism. Emphysematous changes with findings suggestive of scarring and bronchiectasis inthe lower lobes more pronounced at the left lung base. Subcentimeter and 1 cm nodular density seen in the posterior medial segment of the left lower lobe. Repeat CT scan of the thorax in 3 months is recommended. One or more dose reduction techniques were used (e.g., Automated exposure control, adjustment of the mA and/or kV according to patient size, use of iterative reconstruction technique). Reading Location: [id number] Physical Exam Const alert and oriented x3 Constitutional Narrative: looks more comfortable today. General Appearance: cooperative Resp Resp Narrative: Much better air exchange. Rare wheeze today. No rales appreciated. no conversational dyspnea. Effort and Inspection: Negative for tachypneic, respiratory distress or labored Cardio regular rate and regular rhythm GI normal to inspection, nondistended, normoactive bowel sounds, soft to palpation and non-tender Extremity no calf tenderness General Extremity: Negative for edema Assessment & Plan Assessment/Plan (1) Debility: (2) Cervical stenosis of spinal canal: (3) Myelopathy concurrent with and due to spinal stenosis of cervical region: (4) Radiculopathy due to cervical spondylosis at multiple levels: (5) H/O laminectomy: (6) Acute blood loss anemia: (7) Urine retention: (8) Diabetes mellitus, type II: QUALIFIERS: Diabetes mellitus detention insulin use: without moth exterminator use Diabetes mellitus complication status: without complication QualifiedCode(s): E11.9 - Type 2 diabetes mellitus without complications (9) Presence of cardiac resynchronization therapy defibrillator (PLAY THERAPIST-D): (10) Presence of stent in coronary artery: (11) Dilated cardiomyopathy: (12) Hypoxemia: (13) COPD with acute exacerbation: PLAN: Has never had PFTs. Will have him follow-up with pulmonary medicine for pulmonary function tests and to follow the 1 cm nodule in the left lower lobe. (14) Pulmonary nodules/lesions, multiple: PLAN: Plan 1. Continue therapy 2. No changes to the drug regimen today 3. Continue SSI med dosing. 4. Follow up with pulmonary post DC for COPD/PFT's and follow up on pulmonary nodule. 5. Continue heparin for DVT prophylaxis 6. Voiding trial Tuesday or Tuesday Charges/Coding Visit Charges Inpatient E&M: 62300 Subs Hosp L1 12/29/24 1302 <Electronically signed by Saumya Bobo DO> Saumya Bobo DO Cosigner Signature (if applicable): CC: ~ Signed [facility] Work Phone: 1(339) 875-109903-08-2025 Progress note [facility] Medical Records Department [address] [place] [address] Progress Note 12/29/24 1102 MR#: [id number] Acct: [id number] Name: FRANK ZIMMER Rep #:[id number] : 1960 64 From: Saumya Bobo DO PCP: Dr. Reagan Soto MD Status:AD M IN Location: [place] [address]-1 Subjective Subjective Afebrile VSS - Maintaining appropriate oxygen saturation -he is 96 to 100% today on 4 L nasal cannula. Oral intake - FOOD good FLUIDS B12 1550 in yesterday but had 3775 5 for negative fluid balance of -2225. The blood sugar record was reviewed. Blood sugar last night at bedtime was 231 but fasting today is113. He is on a sliding scale since he has been placed on prednisone. Discussed with nursing - no problems that need addressed Reviewed the THERAPY notes Medication list reviewed. Respiratory panel was negative. COVID was negative. Troponin x 3 were all normal. CTA was negative for pulmonary emboli. There was increased markings in the lungbases suggestive of scarring and bronchiectasis. Evidence of emphysema. There is a 1 cm noncalcified nodule in the posterior medial aspect of the left lower lobe and there is a tiny nodular density adjacent to the nodule. 3-month follow-up was recommended. There was some dilation of the proximal abdominal aorta. Tells me that he feels better today. He has been using the IS and PAP and has been able to cough upsome secretions. Chest is not as tight and he denies SOB at rest today. Pulse ox on RA when I was in the room at rest was 96%. O2 was removed. I reviewed chest CT's dating back to 2018. Has had multiple subcentimeter nodules in both lungs. The nodule in the LLL is now 1 cm with a subcentimeter nodule adjacent to the 1 cm nodule. Will need follow up. Frank and I discussedfollow up with pulmonary medicine post DC from rehab for PFT's/COPD and for follow up on the LLL nodule which now measures 1 cm. Objective Data Objective Data Vital Signs: Vital Signs Temp Pulse Resp BP Pulse Ox O2 Del Method O2 Flow Rate 97.7 F L 69 18 130/77 H 96 Nasal Cannula 4 12/29/24 06:00 12/29/24 06:42 12/29/24 06:42 12/29/24 06:00 12/29/24 07:59 12/29/24 06:42 12/29/24 09:35 FiO2 40 12/28/24 20:23 Oxygen Flow Rate (L/min) 4 Oxygen Delivery Method Nasal Cannula Weight: 207 lb 0.225 oz Body Mass Index (BMI) 24.4 Intake & Output: Intake and Output for Last 24 Hours 12/27/24 12/28/24 12/29/24 23:59 23:59 23:59 Intake Total 1900 / 1900 1550 / 1550 240 / 240 Output Total 2900 / 3025 3775 / 3775 600 / 600 Balance -1000 / -1125 -2225 / -2225 -360 / -360 Lab / Micro Data 12/28/24 12:20 12/28/24 12:20 Labs: Laboratory Results - last 24 hr 12/28/24 12:15: POC Glucose 110 H 12/28/24 12:20: WBC 8.6, RBC 3.82 L, Hgb 12.2 L, Hct 35.9 L, MCV 94.0, MCH 31.9,MCHC 34.0, RDW Std Deviation 48.0 H, RDW Coeff of Arnie 14.0, Plt Count 216, MPV 10.1, Immature Gran % (Auto) 0.500, Neut% (Auto) 76.9 H, Lymph % (Auto) 10.2 L,Gila % (Auto) 10.2 H, Eos % (Auto) 1.7, Baso % (Auto) 0.5, Absolute Neuts (auto)6.6, Absolute Lymphs (auto) 0.88, Nucleated RBC % 0, Sodium 136, Potassium 4.6, Chloride 100, Carbon Dioxide 20.5 L, Anion Gap 15, BUN 19, Creatinine 0.68 L, Estim Creat Clear [id number], Est GFR (MDRD) Non-Af 103, BUN/Creatinine Ratio 27.6 H, Glucose 115 H, Calcium 9.0, Troponin T High Sens 18, NT pro BNP II 521 12/28/24 13:43: Troponin T Hi Sens 2 Hr 17 12/28/24 16:51: Troponin T Hi Sens 4Hr 17 12/28/24 16:58: POC Glucose 130 H 12/28/24 20:49: POC Glucose 231 H 12/29/24 05:25: POC Glucose 113 H Micro: Microbiology 12/28/24 15:15 Mucosa - Nasopharyngeal Respiratory Panel (PCR) - Final 12/28/24 15:15 Mucosa - Nose Coronavirus COVID-19 PCR - Final ABG Data ABG results: ABG 12/28/24 13:21 Specimen Type ART Sample Site R Radial pH 7.43 Bicarbonate Actual 23.2 Total CO2 24 Base Excess -1 O2 Saturation 86 L O2 % 4.0 ABG pCO2 34.8 L ABG pO2 50 L Benji Test Positive O2 Delivery Device Cannula Vent Mode Not entered Radiography Diagnostic Testing: Radiology Impression Chest X-Ray 12/28/24 12:32 IMPRESSION: 1. Similar mild chronic interstitial prominence without definite or visible acute cardiopulmonary process. 2. Additional description as above. Reading Location: [id number] Chest CTA 12/28/24 14:02 IMPRESSION: No evidence of pulmonary embolism. Emphysematous changes with findings suggestive of scarring and bronchiectasis inthe lower lobes more pronounced at the left lung base. Subcentimeter and 1 cm nodular density seen in the posterior medial segment of the left lower lobe.Repeat CT scan of the thorax in 3 months is recommended. One or more dose reduction techniques were used (e.g., Automated exposure control, adjustment of the mA and/or kV according to patient size, use of iterative reconstruction technique). Reading Location: [facility] Physical Exam Const alert and oriented x3 Constitutional Narrative: looks more comfortable today. General Appearance: cooperative Resp Resp Narrative: Much better air exchange. Rare wheeze today. No rales appreciated. no conversational dyspnea. Effort and Inspection: Negative for tachypneic, respiratory distress or labored Cardio regular rate and regular rhythm GI normal to inspection, nondistended, normoactive bowel sounds, soft to palpation and non-tender Extremity no calf tenderness General Extremity: Negative for edema Assessment & Plan Assessment/Plan (1) Debility: (2) Cervical stenosis of spinal canal: (3) Myelopathy concurrent with and due to spinal stenosis of cervical region: (4) Radiculopathy due to cervical spondylosis at multiple levels: (5) H/O laminectomy: (6) Acute blood loss anemia: (7) Urine retention: (8) Diabetes mellitus, type II: QUALIFIERS: Diabetes mellitus detention insulin use: without moth exterminator use Diabetes mellitus complication status: without complication QualifiedCode(s): E11.9 - Type 2 diabetes mellitus without complications (9) Presence of cardiac resynchronization therapy defibrillator (PLAY THERAPIST-D): (10) Presence of stent in coronary artery: (11) Dilated cardiomyopathy: (12) Hypoxemia: (13) COPD with acute exacerbation: PLAN: Has never had PFTs. Will have him follow-up with pulmonary medicine for pulmonary function tests and to follow the 1 cm nodule in the left lower lobe. (14) Pulmonary nodules/lesions, multiple: PLAN: Plan 1. Continue therapy 2. No changes to the drug regimen today 3. Continue SSI med dosing. 4. Follow up with pulmonary post DC for COPD/PFT's and follow up on pulmonary nodule. 5. Continue heparin for DVT prophylaxis 6. Voiding trial Tuesday or Tuesday Charges/Coding Visit Charges Inpatient E&M: 24589 Subs Hosp L1 12/29/24 1302 Saumya Bobo DO Cosigner Signature (if applicable): CC: ~ Signed [facility]03-07-2025 Progress note Author Saumya Lovelacesamantha [facility] Note Date/Time December 28, 2024 12:5 0pm [facility] Medical Records Department [address] [place] [address] Progress Note 12/28/24 1221 MR#: [id number] Acct: [id number] Name: FRANK ZIMMER Rep #:[id number] : 1960 64 From: Saumya Bobo DO PCP: Dr. Reagan Soto MD Status:AD M IN Location: [place] [address] Subjective Subjective Afebrile VSS -heart rate over the past 24 hours has ranged from 56-60. Blood pressure isranged from 128/69 to 135/71. Pulse ox was 93% on room air this a.m. however heis now complaining of feeling short of breath and pulse ox was in the 80s so oxygen was applied. Maintaining appropriate oxygen saturation on RA Oral intake - FOOD good FLUIDS oral intake yesterday was 1900 and he had 2900 out for a fluid balance of -1000 yesterday. Blood sugars are well-controlled with no hypoglycemia Discussed with nursing - no problems that need addressed Reviewed the THERAPY notes Medication list reviewed. Not coughing but, he continues to c/o congestion. Has been using IS. Continue to deny headache, sinus pain, rhinorrhea, sore throat, chest pain, palpitations. Denies orthopnea. Shortness of breath seem to develop acutely around noon today. Urine in the Fernandez tubing is very pale yellow and clear. Objective Data Objective Data Vital Signs: Vital Signs Temp Pulse Resp BP Pulse Ox O2 Del Method 97.6 F L 59 L 16 135/71 H 93 Room Air 12/28/24 06:00 12/28/24 06:00 12/28/24 06:00 12/28/24 06:00 12/28/24 06:00 12/28/24 06:00 Oxygen Delivery Method Room Air Weight: 207 lb 0.225 oz Body Mass Index (BMI) 24.4 Intake & Output: Intake and Output for Last 24 Hours 12/26/24 12/27/24 12/28/24 23:59 23:59 23:59 Intake Total 2500 / 2500 1900 / 1900 1190 / 1190 Output Total 3070 / 3070 2900 / 3025 975 / 975 Balance -570 / -570 -1000 / -1125 215 / 215 Lab / Micro Data 12/25/24 05:29 12/25/24 05:29 Labs: Laboratory Results - last 24 hr 12/27/24 16:35: POC Glucose 128 H 12/27/24 21:43: POC Glucose 106 12/28/24 06:49: POC Glucose 103 Physical Exam Const alert Constitutional Narrative: A little anxious. Resp Resp Narrative: Breath sounds are diminished especially when compared to admission. They are diminished throughout but especially in the bases. He is not tachypneic and he has no conversational dyspnea. Did not cough with deep breaths. No crackles. Has short inspiratory wheeze left anterior chest.......resolved with a couple more deep breaths. Has been on DVT prophylaxis. No accessory muscle use. Hisfingers are somewhat cool and the pulse ox may not be accurate. He was sitting upright in the WC when I examined him...No JVD but, this is not reliable due to upright posture. Cardio regular rate, regular rhythm, no rub and no gallops Cardio Narrative: No ectopy. HR is about 60. Denies having the AICD fire. GI normal to inspection, nondistended, normoactive bowel sounds, soft to palpation and non-tender Extremity no calf tenderness General Extremity: Negative for edema Assessment & Plan Assessment/Plan (1) Debility: (2) Cervical stenosis of spinal canal: (3) Myelopathy concurrent with and due to spinal stenosis of cervical region: (4) Radiculopathy due to cervical spondylosis at multiple levels: (5) H/O laminectomy: (6) Acute blood loss anemia: (7) Urine retention: (8) Diabetes mellitus, type II: QUALIFIERS: Diabetes mellitus detention insulin use: without moth exterminator use Diabetes mellitus complication status: without complication QualifiedCode(s): E11.9 - Type 2 diabetes mellitus without complications (9) Presence of cardiac resynchronization therapy defibrillator (PLAY THERAPIST-D): (10) Presence of stent in coronary artery: (11) Dilated cardiomyopathy: (12) Hypoxemia: PLAN: Plan 1. stat PA and lat CXR. 2. CBC with diff follow-up BMP, BNP and troponin series. 3. Obtain an EKG. 4. ABG ordered. 5. He smoked for 43 years in the past but, he denies hx of COPD/asthma. 6. Continues to deny orthopnea. Has been in negative fluid balance. 7. Await the results of the CXR.......if infiltrates will need to order a respiratory panel and a COVID 19 PCR. Charges/Coding Visit Charges Inpatient E&M: 83254 Subs Hosp L2 12/28/24 1236 <Electronically signed by Saumya Bobo DO> Saumya Bobo DO Cosigner Signature (if applicable): CC: ~ Signed ADDENDUM by Dr. Saumya Bobo DO on 12/28/24 at 1350 Addendum CXR is without infiltrate, PVC or effusions. there are some increased interstitial markings but, this is chronic. there is hyperinflation and I suspect he has COPD. Has never had PFT's. EKG showed paced rhythm with no significant ST or T wave changes. WBC is normal with 77% neutrophils. BMP shows a low bicarb at 20.5. Sodium and potassium are normal and the BUN is 19 with a creat of 0.68. NT pro BNP is normal at 521. ABG shows a pH of 7.43, pCO2 of 34.8 and a pO2 of 50 on a nasal cannula. RT increased the oxygen concentration. He received an albuterol aerosol and had increased air exchange and symptomatic improvement. I can no hear both inspiratory and exp wheezing. I am going to send him for a CTA of the chest because he recently had surgery and has been immobile. He is at increased risk for VTE. Hold Metformin for 48Hand continue SSI but, increase to a medium scale. Will order ATC aerosols and steroids......taper as he improves. Start GI prophylaxis with Protonix while he is on steroids. Recommended to him that he follow up with pulmonary medicine following DC from rehab. 12/28/24 1350 <Electronically signed by Saumya singh DO> Date _ Saumya Bobo DO Cosigner Signature (if applicable): Date cc: ~* Signed [facility] Work Phone: 1(222) 460-910303-07-2025 Radiology Diagnostic study note [facility] Imaging Services [address] [place], [place] [address] CTA Chest W/WO Contrast MR#: [id number] Acct: [id number] Name: FRANK ZIMMER Rep #: [id number] : 1960 M 64 From: David Reed MD PCP: Dr. Reagan Soto MD Status: AD M IN Study:CTA Chest W/WO Contrast Date of Exam: 12/28/24 Exam# [id number] Ordering Dr: Saumya Bobo DO PROCEDURE: CTA CHEST W/WO CONTRAST REASON FOR EXAM: Hypoxemia. TECHNIQUE: CTA imaging of the chest with intravenous contrast. 3D reconstructions. CONTRAST: 100 mL of Isovue 370. COMPARISON: Comparison is made with prior study dated April 11, 2020. FINDINGS: Hardware: A left-sided dual-chamber pacemaker is seen. Lymph nodes: No mediastinal hilar or axillary lymphadenopathy. Heart: Normal heart size. No pericardial effusion. RV/LV Diameter Ratio: N/A Thoracic Aorta: No thoracic aortic aneurysm or dissection. Pulmonary Vessels: No evidence of acute pulmonary emboli through the major subsegmental branches. Most Proximal Level of Embolus (if embolus present): N/A Lungs and Airways: Increased markings at the lung bases more pronounced at the left lung base suggestive of scarring with the bronchiectasis. Emphysema. There is a 1 cm noncalcified nodule in the posterior medial aspect of the left lower lobe as seen on axial image number 111 this may represent a dilated bronchus with fluid. Tiny nodular density are seen adjacent to this dominant nodule. Three-month follow-up examination is recommended. Pleura: No pleural effusion. No pneumothorax. Upper Abdomen: Dilatation of the proximal abdominal aorta. Bones: Degenerative changes of the thoracic spine. CT/CTA Chest W/WO Contrast IMPRESSION: No evidence of pulmonary embolism. Emphysematous changes with findings suggestive of scarring and bronchiectasis inthe lower lobes more pronounced at the left lung base. Subcentimeter and 1 cm nodular density seen in the posterior medial segment of the left lower lobe.Repeat CT scan of the thorax in 3 months is recommended. One or more dose reduction techniques were used (e.g., Automated exposure control, adjustment of the mA and/or kV according to patient size, use of iterative reconstruction technique). Reading Location: [id number] CC: Dr. Reagan Soto MD; Dr. Saumya Bobo DO ~ Cell Pourer: Signed [facility]03-07-2025 Progress note Author Saumya Bobo [facility] Note Date/Time December 28, 2024 11:2 0am [facility] Medical Records Department [address] [place] [address] Progress Note 12/27/24 1050 MR#: [id number] Acct: [id number] Name: FRANK ZIMMER Rep #:[id number] : 1960 64 From: Saumya Bobo DO PCP: Dr. Reagan Soto MD Status:AD M IN Location: [place] [address] Subjective Subjective Frank was seen on team rounds today. Frank's Ravindra participated by phone. All questions were answered to their satisfaction. Afebrile VSS -heart rate has ranged from 59-62. Blood pressure this AM is 98/63.......denies lightheadedness. Will recheck. Maintaining appropriate oxygen saturation on RA-92 to 95%. Oral intake - FOOD good FLUIDS good.......... fluid balance yesterday was -570 and the day prior was -600. Discussed with nursing - no problems that need addressed Reviewed the THERAPY notes Medication list reviewed. He is c/o BL knee pain. Was having problems with knee pain long before recent surgery. Tells me that he was using neoprene sleeves on knees for support. He feels his pain is better controlled. Denies lightheadedness, chest pain, shortness of breath, palpitations, nausea/vomiting/abdominal pain, calf pain. Fernandez catheter was inserted. The urine in Fernandez bag is pale and clear. He still feels congested. Has been unable to cough anything up. No sore throat and no rhinorrhea. Denies sinus pain. He is complaining of pain in his knees and has known degenerative joint disease. Objective Data Objective Data Vital Signs: Vital Signs Temp Pulse Resp BP Pulse Ox O2 Del Method 97.5 F L 60 15 128/69 H 95 Room Air 12/27/24 06:00 12/27/24 06:00 12/27/24 06:00 12/27/24 06:00 12/27/24 06:00 12/27/24 09:12 Oxygen Delivery Method Room Air Weight: 211 lb Body Mass Index (BMI) 25.0 Intake & Output: Intake and Output for Last 24 Hours 12/25/24 12/26/24 12/27/24 23:59 23:59 23:59 Intake Total 1650 / 1650 2500 / 2500 700 / 700 Output Total 2250 / 3050 3070 / 3070 900 / 900 Balance -600 / -1400 -570 / -570 -200 / -200 Lab / Micro Data 12/25/24 05:29 12/25/24 05:29 Labs: Laboratory Results - last 24 hr 12/26/24 11:53: POC Glucose 115 H 12/26/24 16:25: POC Glucose 166 H 12/26/24 21:59: POC Glucose 110 H 12/27/24 07:01: POC Glucose 100 Physical Exam Const alert and oriented x3 Resp normal respiratory effort, no use of accessory muscles and clear to auscultationbilaterally Resp Narrative: Not tachypneic and no conversational dyspnea. No coughing with deep breath. Effort and Inspection: able to speak in complete sentences Cardio regular rate, regular rhythm, no murmurs, no rub and no gallops Cardio Narrative: No ectopy GI normal to inspection, nondistended, normoactive bowel sounds and non-tender GI Narrative: No guarding with palpation. Extremity no clubbing, cyanosis or edema and no calf tenderness Assessment & Plan Assessment/Plan (1) Debility: (2) Cervical stenosis of spinal canal: (3) Myelopathy concurrent with and due to spinal stenosis of cervical region: (4) Radiculopathy due to cervical spondylosis at multiple levels: (5) H/O laminectomy: (6) Acute blood loss anemia: (7) Urine retention: (8) Diabetes mellitus, type II: QUALIFIERS: Diabetes mellitus moth exterminator insulin use: without detention use Diabetes mellitus complication status: without complication QualifiedCode(s): E11.9 - Type 2 diabetes mellitus without complications (9) Hyperlipidemia: QUALIFIERS: Hyperlipidemia type: unspecified Qualified Code(s): E78.5 - Hyperlipidemia, unspecified (10) Hypertension: QUALIFIERS: Hypertension type: primary hypertension Qualified Code(s): I10 - Essential (primary) hypertension (11) Presence of cardiac resynchronization therapy defibrillator (PLAY THERAPIST-D): (12) Presence of stent in coronary artery: (13) NSVT (nonsustained ventricular tachycardia): (14) Dilated cardiomyopathy: (15) Bladder cancer: QUALIFIERS: Bladder location: unspecified site Qualified Code(s):C67.9 - Malignant neoplasm of bladder, unspecified PLAN: Plan 1. Continue therapy 2. Apply arthritis compounded cream twice daily to both knees for pain secondary to degenerative joint disease. He had XRAYS of both knees in October Charges/Coding Visit Charges Inpatient E&M: 21829 Subs Hosp L2 12/28/24 1220 <Electronically signed by Saumya Bobo DO> Saumya Bobo DO Cosigner Signature (if applicable): CC: ~ Signed [facility] Work Phone: 1(885) 373-408303-07-2025 Progress [facility] Note Date/Time December 28, 2024 11:1 4am [facility] Medical Records Department [address] [place] [address] Progress Note 12/25/24 0957 MR#: [id number] Acct: [id number] Name: FRANK ZIMMER Rep #:[id number] : 1960 64 From: Saumya Bobo DO PCP: Dr. Reagan Soto MD Status:AD M IN Location: [id number] Subjective Subjective Afebrile VSS -blood pressure at admission was 98/57 but this morning it was 132/78. Heart rate is ranged from 59-61. Maintaining appropriate oxygen saturation on RA is 93 to 97% Oral intake - FOOD fair to good FLUIDS just got to rehab.......not enough data to make this determination Discussed with nursing - no problems that need addressed Reviewed the THERAPY notes Medication list reviewed. UA negative for infection. Has had an elevated microalbumin/creatinine ratio in the past. The last test was in October 2023 and it was 90.2. He is on an ARB. Lipid panel on 12/17/2024showed an LDL of 49, triglycerides of 57 and an HDL of 53. Recent TSH was normal at 1.76. Hemoglobin today is 11.9 which is stable. The last hemoglobin from [facility] Was 12.3. White blood cell count is normal and platelets arealso normal. BMP is unremarkable. Creatinine is 0.59 which is within his baseline. GFR is 108. Phosphorus, magnesium and calcium are all within normal limits. LFTs are normal. Slept pretty well last night. Tells me pain is better controlled. Denies lightheadedness, cephalgia, sore throat, nausea/vomiting/abdominal pain, dysuria, calf pain, chest pain and palpitations. He states his chest feels congested that he is not really able to get an effective cough. Objective Data Objective Data Vital Signs: Vital Signs Temp Pulse Resp BP Pulse Ox O2 Del Method 97.7 F L 59 L 16 132/78 H 93 Room Air 12/25/24 06:00 12/25/24 06:00 12/25/24 06:00 12/25/24 06:00 12/25/24 06:00 12/25/24 06:00 Oxygen Delivery Method Room Air Weight: 211 lb Body Mass Index (BMI) 25.0 Intake & Output: Intake and Output for Last 24 Hours 12/23/24 12/24/24 12/25/24 23:59 23:59 23:59 Intake Total 690 / 690 Output Total 500 / 500 450 / 450 Balance 190 / 190 -450 / -450 Lab / Micro Data 12/25/24 05:29 12/25/24 05:29 Labs: Laboratory Results - last 24 hr 12/24/24 17:13: POC Glucose 114 H 12/24/24 21:29: POC Glucose 131 H 12/24/24 21:45: Urine Color Yellow, Urine Clarity Clear, Urine pH 7.0, Ur Specific [place] 1.010, Urine Protein 15 H, Urine Glucose (UA) 1000 H, Urine Ketones Negative, Urine Occult Blood 10 H, Urine Nitrite Negative, Urine Bilirubin Negative, Urine Urobilinogen Normal, Ur Leukocyte Esterase Negative, Urine RBC 0 SEEN, Urine WBC 0-5 SEEN, Ur Squamous Epith Cells 0 SEEN, Urine Bacteria RARE, Urine Mucus 0 SEEN 12/25/24 05:16: POC Glucose 158 H 12/25/24 05:29: WBC 6.3, RBC 3.69 L, Hgb 11.9 L, Hct 35.9 L, MCV 97.3 H, MCH 32.2 H, MCHC 33.1, RDW Std Deviation 51.7 H, RDW Coeff of Arnie 14.5, Plt Count 150, MPV 11.2, Sodium 137, Potassium 4.6, Chloride 100, Carbon Dioxide 27.1, Anion Gap 10, BUN 18, Creatinine 0.59 L, Estim Creat Clear Calc 116.02, Est GFR (MDRD) Non-Af 108, BUN/Creatinine Ratio 29.8 H, Glucose 114 H, Calcium 8.8, Phosphorus 3.0, Magnesium 2.1, Total Bilirubin 0.37, AST 25, ALT 25, Alkaline Phosphatase 66, Total Protein 5.8 L, Albumin 3.6, Globulin 2.2, Albumin/GlobulinRatio 1.6 Physical Exam Const alert and oriented x3 Resp normal respiratory effort, no use of accessory muscles and clear to auscultationbilaterally Resp Narrative: Not tachypneic and no conversational dyspnea. No coughing with deep breath. Effort and Inspection: able to speak in complete sentences Cardio regular rate, regular rhythm, no murmurs, no rub and no gallops Cardio Narrative: No ectopy GI normal to inspection, nondistended, normoactive bowel sounds and non-tender GI Narrative: No guarding with palpation. Extremity no clubbing, cyanosis or edema and no calf tenderness Assessment & Plan Assessment/Plan (1) Debility: (2) Cervical stenosis of spinal canal: (3) Myelopathy concurrent with and due to spinal stenosis of cervical region: (4) Radiculopathy due to cervical spondylosis at multiple levels: (5) H/O laminectomy: (6) Acute blood loss anemia: (7) Urine retention: (8) Diabetes mellitus, type II: QUALIFIERS: Diabetes mellitus moth exterminator insulin use: without detention use Diabetes mellitus complication status: without complication QualifiedCode(s): E11.9 - Type 2 diabetes mellitus without complications (9) Hyperlipidemia: QUALIFIERS: Hyperlipidemia type: unspecified Qualified Code(s): E78.5 - Hyperlipidemia, unspecified (10) Hypertension: QUALIFIERS: Hypertension type: primary hypertension Qualified Code(s): I10 - Essential (primary) hypertension (11) Presence of cardiac resynchronization therapy defibrillator (PLAY THERAPIST-D): (12) Presence of stent in coronary artery: (13) NSVT (nonsustained ventricular tachycardia): (14) Dilated cardiomyopathy: (15) Bladder cancer: QUALIFIERS: Bladder location: unspecified site Qualified Code(s):C67.9 - Malignant neoplasm of bladder, unspecified PLAN: Plan 1. Continue therapy 2. He has been retaining urine. If he continues to retain urine will insert a Fernandez 3. Start Flomax 0.4 mg daily...... if we have to insert a Fernandez will repeat a voiding trial or after 5 doses of Flomax. Charges/Coding Visit Charges Inpatient E&M: 98432 Subs Hosp L1 12/28/24 1214 <Electronically signed by Saumya Bobo DO> Saumya Bobo DO Cosigner Signature (if applicable): CC: ~ Signed [facility] Work Phone: [phone]) 200-114203-07-2025 Progress note [facility] Medical Records Department [address] [place] [address] Progress Note 12/28/24 1221 MR#: [id number] Acct: [id number] Name: FRANK ZIMMER Rep #:[id number] : 1960 64 From: Saumya Bobo DO PCP: Dr. Reagan Soto MD Status:AD M IN Location: [place] [address] Subjective Subjective Afebrile VSS -heart rate over the past 24 hours has ranged from 56-60. Blood pressure isranged from 128/69 to 135/71. Pulse ox was 93% on room air this a.m. however heis now complaining of feeling short of breath and pulse ox was in the 80s so oxygen was applied. Maintaining appropriate oxygen saturation on RA Oral intake - FOOD good FLUIDS oral intake yesterday was 1900 and he had 2900 out for a fluid balance of -1000 yesterday. Blood sugars are well-controlled with no hypoglycemia Discussed with nursing - no problems that need addressed Reviewed the THERAPY notes Medication list reviewed. Not coughing but, he continues to c/o congestion. Has been using IS. Continue to deny headache, sinus pain, rhinorrhea, sore throat, chest pain, palpitations. Denies orthopnea. Shortness of breath seem to develop acutely around noon today. Urine in the Fernandez tubing is very pale yellow and clear. Objective Data Objective Data Vital Signs: Vital Signs Temp Pulse Resp BP Pulse Ox O2 Del Method 97.6 F L 59 L 16 135/71 H 93 Room Air 12/28/24 06:00 12/28/24 06:00 12/28/24 06:00 12/28/24 06:00 12/28/24 06:00 12/28/24 06:00 Oxygen Delivery Method Room Air Weight: 207 lb 0.225 oz Body Mass Index (BMI) 24.4 Intake & Output: Intake and Output for Last 24 Hours 12/26/24 12/27/24 12/28/24 23:59 23:59 23:59 Intake Total 2500 / 2500 1900 / 1900 1190 / 1190 Output Total 3070 / 3070 2900 / 3025 975 / 975 Balance -570 / -570 -1000 / -1125 215 / 215 Lab / Micro Data 12/25/24 05:29 12/25/24 05:29 Labs: Laboratory Results - last 24 hr 12/27/24 16:35: POC Glucose 128 H 12/27/24 21:43: POC Glucose 106 12/28/24 06:49: POC Glucose 103 Physical Exam Const alert Constitutional Narrative: A little anxious. Resp Resp Narrative: Breath sounds are diminished especially when compared to admission. They are diminished throughout but especially in the bases. He is not tachypneic and he has no conversational dyspnea. Did not cough with deep breaths. No crackles. Has short inspiratory wheeze left anterior chest.......resolved with a couple more deep breaths. Has been on DVT prophylaxis. No accessory muscle use. Hisfingers are somewhat cool and the pulse ox may not be accurate. He was sitting upright in the WC when I examinedhim...No JVD but, this is not reliable due to upright posture. Cardio regular rate, regular rhythm, no rub and no gallops Cardio Narrative: No ectopy. HR is about 60. Denies having the AICD fire. GI normal to inspection, nondistended, normoactive bowel sounds, soft to palpation and non-tender Extremity no calf tenderness General Extremity: Negative for edema Assessment & Plan Assessment/Plan (1) Debility: (2) Cervical stenosis of spinal canal: (3) Myelopathy concurrent with and due to spinal stenosis of cervical region: (4) Radiculopathy due to cervical spondylosis at multiple levels: (5) H/O laminectomy: (6) Acute blood loss anemia: (7) Urine retention: (8) Diabetes mellitus, type II: QUALIFIERS: Diabetes mellitus moth exterminator insulin use: without detention use Diabetes mellitus complication status: without complication QualifiedCode(s): E11.9 - Type 2 diabetes mellitus without complications (9) Presence of cardiac resynchronization therapy defibrillator (PLAY THERAPIST-D): (10) Presence of stent in coronary artery: (11) Dilated cardiomyopathy: (12) Hypoxemia: PLAN: Plan 1. stat PA and lat CXR. 2. CBC with diff follow-up BMP, BNP and troponin series. 3. Obtain an EKG. 4. ABG ordered. 5. He smoked for 43 years in the past but, he denies hx of COPD/asthma. 6. Continues to deny orthopnea. Has been in negative fluid balance. 7. Await the results of the CXR.......if infiltrates will need to order a respiratory panel and a COVID 19 PCR. Charges/Coding Visit Charges Inpatient E&M: 76969 Subs Hosp L2 12/28/24 1236 Saumya Bobo DO Cosigner Signature (if applicable): CC: ~ Signed ADDENDUM by Dr. Saumya Bobo DO on 12/28/24 at 1350 Addendum CXR is without infiltrate, PVC or effusions. there are some increased interstitial markings but, this is chronic. there is hyperinflation and I suspect he has COPD. Has never had PFT's. EKG showed paced rhythm with no significant ST or T wave changes. WBC is normal with 77% neutrophils. BMP shows alow bicarb at 20.5. Sodium and potassium are normal and the BUN is 19 with a creat of 0.68. NT pro BNP is normal at 521. ABG shows a pH of 7.43, pCO2 of 34.8 and a pO2 of 50 on a nasal cannula. RT increased the oxygen concentration. He received an albuterol aerosol and had increased air exchange and symptomatic improvement. I can no hear both inspiratory and exp wheezing. I am going to send him for a CTA of the chest because he recently had surgery and has been immobile. He is at increased riskfor VTE. Hold Metformin for 48Hand continue SSI but, increase to a medium scale. Will order ATC aerosols and steroids......taper as he improves. Start GI prophylaxis with Protonix while he is on steroids. Recommended to him that he follow up with pulmonary medicine following DC from rehab. 12/28/24 1350 ti DO> Date _ Saumya Bobo DO Cosigner Signature (if applicable): Date cc: ~* Signed [facility]03-07-2025 Radiology Diagnostic study note [facility] Imaging Services [address] [place], [place] [id number] Chest PA and Lateral MR#: [id number] Acct: [id number] Name: FRANK ZIMMER Rep #: [id number] : 1960 M 64 From: Patience Palafox MD PCP: Dr. Reagan Soto MD Status: AD M IN Study:Chest PA and Lateral Date of Exam: 12/28/24 Exam# [id number] Ordering Dr: Saumya Bobo DO PROCEDURE: CHEST PA AND LATERAL REASON FOR EXAM: SOB/hypoxemia TECHNIQUE: PA and lateral views of the chest were obtained. COMPARISON: 08/01/2023 and prior FINDINGS: Heart: Similar left chest wall triple lead pacer/defibrillator.. Mediastinum: Trace atherosclerosis in the arch. Lungs/pleura: No focal confluent consolidation. Similar mild interstitial prominence.. No effusion or visible pneumothorax. Small nodule seen 04/11/2020 is not visible. Bones: Partially imaged cervicothoracic spinal fusion hardware. Multilevel spondylosis. Lines and support devices: None. RAD/Chest PA and Lateral IMPRESSION: 1. Similar mild chronic interstitial prominence without definite or visible acute cardiopulmonary process. 2. Additional description as above. Reading Location: [id number] CC: Dr. Reagan Soto MD; Dr. Saumya Bobo DO ~ Cell Pourer: Signed [facility]03-07-2025 Progress note [facility] Medical Records Department [address] [place] [address] Progress Note 12/27/24 1050 MR#: [id number] Acct: [id number] Name: FRANK ZIMMER Rep #:[id number] : 1960 64 From: Saumya Bobo DO PCP: Dr. Reagan Soto MD Status:AD M IN Location: [place] [address] Subjective Subjective Frank was seen on team rounds today. Frank's Ravindra participated by phone. All questions were answered to their satisfaction. Afebrile VSS -heart rate has ranged from 59-62. Blood pressure this AM is 98/63.......denies lightheadedness. Will recheck. Maintaining appropriate oxygen saturation on -92 to 95%. Oral intake - FOOD good FLUIDS good.......... fluid balance yesterday was -570 and the day prior was -600. Discussed with nursing - no problems that need addressed Reviewed the THERAPY notes Medication list reviewed. He is c/o BL knee pain. Was having problems with knee pain long before recent surgery. Tells me that he was using neoprene sleeves on knees for support. He feels his pain is better controlled. Denies lightheadedness, chest pain, shortness of breath, palpitations, nausea/vomiting/abdominal pain, calf pain. Fernandez catheter was inserted. The urine in Fernandez bag is pale and clear. He still feels congested. Has been unable to cough anything up. No sore throat and no rhinorrhea. Denies sinus pain. He is complaining of pain in his knees and has known degenerative joint disease. Objective Data Objective Data Vital Signs: Vital Signs Temp Pulse Resp BP Pulse Ox O2 Del Method 97.5 F L 60 15 128/69 H 95 Room Air 12/27/24 06:00 12/27/24 06:00 12/27/24 06:00 12/27/24 06:00 12/27/24 06:00 12/27/24 09:12 Oxygen Delivery Method Room Air Weight: 211 lb Body Mass Index (BMI) 25.0 Intake & Output: Intake and Output for Last 24 Hours 12/25/24 12/26/24 12/27/24 23:59 23:59 23:59 Intake Total 1650 / 1650 2500 / 2500 700 / 700 Output Total 2250 / 3050 3070 / 3070 900 / 900 Balance -600 / -1400 -570 / -570 -200 / -200 Lab / Micro Data 12/25/24 05:29 12/25/24 05:29 Labs: Laboratory Results - last 24 hr 12/26/24 11:53: POC Glucose 115 H 12/26/24 16:25: POC Glucose 166 H 12/26/24 21:59: POC Glucose 110 H 12/27/24 07:01: POC Glucose 100 Physical Exam Const alert and oriented x3 Resp normal respiratory effort, no use of accessory muscles and clear to auscultationbilaterally Resp Narrative: Not tachypneic and no conversational dyspnea. No coughing with deep breath. Effort and Inspection: able to speak in complete sentences Cardio regular rate, regular rhythm, no murmurs, no rub and no gallops Cardio Narrative: No ectopy GI normal to inspection, nondistended, normoactive bowel sounds and non-tender GI Narrative: No guarding with palpation. Extremity no clubbing, cyanosis or edema and no calf tenderness Assessment & Plan Assessment/Plan (1) Debility: (2) Cervical stenosis of spinal canal: (3) Myelopathy concurrent with and due to spinal stenosis of cervical region: (4) Radiculopathy due to cervical spondylosis at multiple levels: (5) H/O laminectomy: (6) Acute blood loss anemia: (7) Urine retention: (8) Diabetes mellitus, type II: QUALIFIERS: Diabetes mellitus moth exterminator insulin use: without moth exterminator use Diabetes mellitus complication status: without complication QualifiedCode(s): E11.9 - Type 2 diabetes mellitus without complications (9) Hyperlipidemia: QUALIFIERS: Hyperlipidemia type: unspecified Qualified Code(s): E78.5 - Hyperlipidemia, unspecified (10) Hypertension: QUALIFIERS: Hypertension type: primary hypertension Qualified Code(s): I10 - Essential (primary) hypertension (11) Presence of cardiac resynchronization therapy defibrillator (PLAY THERAPIST-D): (12) Presence of stent in coronary artery: (13) NSVT (nonsustained ventricular tachycardia): (14) Dilated cardiomyopathy: (15) Bladder cancer: QUALIFIERS: Bladder location: unspecified site Qualified Code(s):C67.9 - Malignant neoplasm of bladder, unspecified PLAN: Plan 1. Continue therapy 2. Apply arthritis compounded cream twice daily to both knees for pain secondary to degenerative joint disease. He had XRAYS of both knees in October Charges/Coding Visit Charges Inpatient E&M: 45244 Subs Hosp L2 12/28/24 1220 Saumya Bobo DO Cosigner Signature (if applicable): CC: ~ Signed [facility]03-07-2025 Progress note [facility] Medical Records Department [address] [place] [address] Progress Note 12/25/24 0957 MR#: [id number] Acct: [id number] Name: FRANK ZIMMER Rep #:[id number] : 1960 64 From: Saumya Bobo DO PCP: Dr. Reagan Soto MD Status:AD M IN Location: [place] [address] Subjective Subjective Afebrile VSS -blood pressure at admission was 98/57 but this morning it was 132/78. Heart rate is ranged from 59-61. Maintaining appropriate oxygen saturation on RA is 93 to 97% Oral intake - FOOD fair to good FLUIDS just got to rehab.......not enough data to make this determination Discussed with nursing - no problems that need addressed Reviewed the THERAPY notes Medication list reviewed. UA negative for infection. Has had an elevated microalbumin/creatinine ratio in the past. The last test was in October 2023 and it was 90.2. He is on an ARB. Lipid panel on 12/17/2024showed an LDL of 49, triglycerides of 57 andan HDL of 53. Recent TSH was normal at 1.76. Hemoglobin today is 11.9 which is stable. The last hemoglobin from [facility] Was 12.3. White blood cell count is normal and platelets arealso normal. BMP is unremarkable. Creatinine is 0.59 which is within his baseline. GFR is 108. Phosphorus, magnesium and calcium are all within normal limits. LFTs are normal. Slept pretty well last night. Tells me pain is better controlled. Denies lightheadedness, cephalgia, sore throat, nausea/vomiting/abdominal pain, dysuria, calf pain, chest pain and palpitations. He states his chest feels congested that he is not really able to get an effective cough. Objective Data Objective Data Vital Signs: Vital Signs Temp Pulse Resp BP Pulse Ox O2 Del Method 97.7 F L 59 L 16 132/78 H 93 Room Air 12/25/24 06:00 12/25/24 06:00 12/25/24 06:00 12/25/24 06:00 12/25/24 06:00 12/25/24 06:00 Oxygen Delivery Method Room Air Weight: 211 lb Body Mass Index (BMI) 25.0 Intake & Output: Intake and Output for Last 24 Hours 12/23/24 12/24/24 12/25/24 23:59 23:59 23:59 Intake Total 690 / 690 Output Total 500 / 500 450 / 450 Balance 190 / 190 -450 / -450 Lab / Micro Data 12/25/24 05:29 12/25/24 05:29 Labs: Laboratory Results - last 24 hr 12/24/24 17:13: POC Glucose 114 H 12/24/24 21:29: POC Glucose 131 H 12/24/24 21:45: Urine Color Yellow, Urine Clarity Clear, Urine pH 7.0, Ur Specific [place] 1.010, Urine Protein 15 H, Urine Glucose (UA) 1000 H, Urine Ketones Negative, Urine Occult Blood 10 H, UrineNitrite Negative, Urine Bilirubin Negative, Urine Urobilinogen Normal, Ur Leukocyte Esterase Negative, Urine RBC 0 SEEN, Urine WBC 0-5 SEEN, Ur Squamous Epith Cells 0 SEEN, Urine Bacteria RARE, UrineMucus 0 SEEN 12/25/24 05:16: POC Glucose 158 H 12/25/24 05:29: WBC 6.3, RBC 3.69 L, Hgb 11.9 L, Hct 35.9 L, MCV 97.3 H, MCH 32.2 H, MCHC 33.1, RDWStd Deviation 51.7 H, RDW Coeff of Arnie 14.5, Plt Count 150, MPV 11.2, Sodium 137, Potassium 4.6, Chloride 100, Carbon Dioxide 27.1, Anion Gap 10, BUN 18, Creatinine 0.59 L, Estim Creat Clear Calc 116.02, Est GFR (MDRD) Non-Af 108, BUN/Creatinine Ratio 29.8 H, Glucose 114 H, Calcium 8.8, Phosphorus 3.0, Magnesium 2.1, Total Bilirubin 0.37, AST 25, ALT 25, Alkaline Phosphatase 66, Total Protein 5.8L, Albumin 3.6, Globulin 2.2, Albumin/GlobulinRatio 1.6 Physical Exam Const alert and oriented x3 Resp normal respiratory effort, no use of accessory muscles and clear to auscultationbilaterally Resp Narrative: Not tachypneic and no conversational dyspnea. No coughing with deep breath. Effort and Inspection: able to speak in complete sentences Cardio regular rate, regular rhythm, no murmurs, no rub and no gallops Cardio Narrative: No ectopy GI normal to inspection, nondistended, normoactive bowel sounds and non-tender GI Narrative: No guarding with palpation. Extremity no clubbing, cyanosis or edema and no calf tenderness Assessment & Plan Assessment/Plan (1) Debility: (2) Cervical stenosis of spinal canal: (3) Myelopathy concurrent with and due to spinal stenosis of cervical region: (4) Radiculopathy due to cervical spondylosis at multiple levels: (5) H/O laminectomy: (6) Acute blood loss anemia: (7) Urine retention: (8) Diabetes mellitus, type II: QUALIFIERS: Diabetes mellitus moth exterminator insulin use: without moth exterminator use Diabetes mellitus complication status: without complication QualifiedCode(s): E11.9 - Type 2 diabetes mellitus without complications (9) Hyperlipidemia: QUALIFIERS: Hyperlipidemia type: unspecified Qualified Code(s): E78.5 - Hyperlipidemia, unspecified (10) Hypertension: QUALIFIERS: Hypertension type: primary hypertension Qualified Code(s): I10 - Essential (primary) hypertension (11) Presence of cardiac resynchronization therapy defibrillator (PLAY THERAPIST-D): (12) Presence of stent in coronary artery: (13) NSVT (nonsustained ventricular tachycardia): (14) Dilated cardiomyopathy: (15) Bladder cancer: QUALIFIERS: Bladder location: unspecified site Qualified Code(s):C67.9 - Malignant neoplasm of bladder, unspecified PLAN: Plan 1. Continue therapy 2. He has been retaining urine. If he continues to retain urine will insert a Fernandez 3. Start Flomax 0.4 mg daily...... if we have to insert a Fernandez will repeat a voiding trial or after 5 doses of Flomax. Charges/Coding Visit Charges Inpatient E&M: 31803 [facility] Hosp L1 12/28/24 1214 Saumya Bobo DO Cosigner Signature (if applicable): CC: ~ Signed [facility]03-06-2025 History and physical note Author [facility] Note Date/Time December 27, 2024 7:48 am [facility] Medical Records Department [address] [place] [address] Post Admission Physician Chepe 12/24/24 1743 MR#: [id number] Acct: [id number] Name: FRANK ZIMMER Rep #:[id number] : 1960 64 From: Saumya Bobo DO PCP: Dr. Reagan Soto MD Status:AD M IN Location: [place] [address] Admission Information Primary Diagnosis:: cervical canal stenosis with myelopathy and radiculopathy with hx laminectomy and fusion. Status Changes from Prescreening?: No changes Identified Actual Problem List:: Falls, Skin Intergrity, Pain, ALteration in Cmfrt, Bowel, Constipation, Alteration in Sleep, Mobility Impaired, Self Care Deficit and Alteration-Leisure Activ. Potential Problem List:: DVT, Bleeding, Infection, UTI, Aspiration, Falls, Skin Integrity and Depression Risk of Complications DVT: SUDHEER Hose and - (Heparin 5000 units SQ every 8 hours) Bleeding: Monitor Lab Values, Nursing to Teach Precautions for anti-coagulation therapy., Wound, if applicable, to be assessed every shift. and Stroke patients assessed for lethargy or change in status. Infection: Clinical Staff to Monitor for S/S of infection: and S/S of infection include fever, redness, warmth, etc. Urinary Tract Infection: Monitor for frequency, burning, discomfort, or incontinence. and Nursing will obtain urine sample for urinalysis and C&S when ordered. Aspiration: Clinical staff will monitor for coughing, drooling, congestion., Speech will evaluate swallowing and dsyphasia. and Nursing will monitor patient swallowing during meals. Falls: Patient will be evaluated for Fall Precautions and Patient will be placedon Fall Precautions as indicated per protocol. Skin Breakdown: Nursing will assess skin daily using assessment tool. and Nursing will place on Skin Breakdown Precautions as indicated. Pain: Clinical staff will assess patient's pain level per protocol., Medicationswill be given, if needed, and the pain level reassessed. and Other methods: Massage, distraction, decrease stimulus, etc. used PRN. Plan of Care Patient requires physician specializing in physical medicine and rehab oversightto provide close medical supervision of rehab issues including: Pain Management,Sleep Problems, Bowel and Bladder, Medical and co-morbidity Management, DVT prophylaxis, Rehabilitation Leadership and Coordination of treatment team Patient needs Physical Therapy: For a minimum of 1 hour and At least 5 out of 7 days Patient needs Physical Therapy to improve:: Mobility, Strengthening, Transfers, Stretching, ROM, Endurance, Stairs, Gait and Balance Patient needs Occupational Therapy: For a minimum of 1 hour and At least 5 out of 7 days Patient needs Occupational Therapy to improve ADL's incl.: Eating, Grooming, Bathing, Dressing, Toileting, Toilet transfers, Community Reintegration, Higher functioning activities, Household tasks, Adaptive Equipment, Splinting and Otheractivities as determined Patient requires 24/7 Rehabilitation Nursing for: Pain Issues, Identifying and preventing risk factors, Monitoring and reporting current medical conditions, Assisting with ambulation, transfer, and all ADL's, Teaching patients about disease process and medications, Family teaching, Providing safe environment, Bowel and Bladder Issues, Skin integrity and Medication Management Patient needs Thermal Surfacing Machine Operator/ Case Management for: Discharge Planning, Arranging Home Equipment or Services and Family Interventions Patient needs Dietary and Nutrition Services for: Adequate Nutrition, Nutritional Supplements and Nutritional Education Goals Goals Patient will remain: free from falls Patient will perform eating at: MOD I level of assist. Patient will perform bed mobility at: MOD I level of assist. Patient will complete transfers from bed to chair at: Standby Assist. Patient will ambulate: - (165 feet with least restrictive device at standby assist on various surfaces) Patient will complete upper body dressing at: - (Supervision) Patient will complete lower body dressing at: - (Supervision with adaptive equipment as needed.) Patient will complete toilet transfer at: - (Supervision) Patient will complete toileting at: - (Supervision) Patient will perform bathing at: - (Upper body bathing at supervision and lower body bathing at supervision with adaptive equipment as needed to increase independence.) Patient will perform Tub/Shower transfer at: - (Supervision using DME as needed.) Patient will complete grooming at: - (Supervision while standing at the sink.) Patient will achieve: - (He will complete 1+1 steps with 1 handrail and least restrictive device at contact-guard assist to allow access to his home entrance.) Patient will have pain level of: of 3 or less Patient's skin will: remain intact Patient will receive: adequate nutrition. Discharge Planning Pt Prognosis for Sig. Practical Improv. w/in Reasonable Time: Good Estimated Length of stay (days): 21 Anticipated D/C Destination: Home with Outpt Therapy Was Preadmission Assessment Accurate?: Yes 12/27/24 0848 <Electronically signed by Saumya Bobo DO> Cosigner Signature (if applicable): CC: ~ Signed [facility] Work Phone: 1(475) 364-845603-06-2025 History and physical note [facility] Medical Records Department [address] [place] [address] Post Admission Physician Chepe 12/24/24 1743 MR#: [id number] Acct: [id number] Name: FRANK ZIMMER Rep #:[id number] : 1960 64 From: Saumya Bobo DO PCP: Dr. Reagan Soto MD Status:AD M IN Location: [place] [address] Admission Information Primary Diagnosis:: cervical canal stenosis with myelopathy and radiculopathy with hx laminectomy and fusion. Status Changes from Prescreening?: No changes Identified Actual Problem List:: Falls, Skin Intergrity, Pain, ALteration in Cmfrt, Bowel, Constipation, Alteration in Sleep, Mobility Impaired, Self Care Deficit and Alteration-Leisure Activ. Potential Problem List:: DVT, Bleeding, Infection, UTI, Aspiration, Falls, Skin Integrity and Depression Risk of Complications DVT: SUDHEER Hose and - (Heparin 5000 units SQ every 8 hours) Bleeding: Monitor Lab Values, Nursing to Teach Precautions for anti-coagulation therapy., Wound, ifapplicable, to be assessed every shift. and Stroke patients assessed for lethargy or change in status. Infection: Clinical Staff to Monitor for S/S of infection: and S/S of infection include fever, redness, warmth, etc. Urinary Tract Infection: Monitor for frequency, burning, discomfort, or incontinence. and Nursing will obtain urine sample for urinalysis and C&S when ordered. Aspiration: Clinical staff will monitor for coughing, drooling, congestion., Speech will evaluate swallowing and dsyphasia. and Nursing will monitor patient swallowing during meals. Falls: Patient will be evaluated for Fall Precautions and Patient will be placedon Fall Precautionsas indicated per protocol. Skin Breakdown: Nursing will assess skin daily using assessment tool. and Nursing will place on Skin Breakdown Precautions as indicated. Pain: Clinical staff will assess patient's pain level per protocol., Medicationswill be given, if needed, and the pain level reassessed. and Other methods: Massage, distraction, decrease stimulus, etc. used PRN. Plan of Care Patient requires physician specializing in physical medicine and rehab oversightto provide close medical supervision of rehab issues including: Pain Management,Sleep Problems, Bowel and Bladder, Medical and co-morbidity Management, DVT prophylaxis, Rehabilitation Leadership and Coordination of treat ment team Patient needs Physical Therapy: For a minimum of 1 hour and At least 5 out of 7 days Patient needs Physical Therapy to improve:: Mobility, Strengthening, Transfers, Stretching, ROM, Endurance, Stairs, Gait and Balance Patient needs Occupational Therapy: For a minimum of 1 hour and At least 5 out of 7 days Patient needs Occupational Therapy to improve ADL's incl.: Eating, Grooming, Bathing, Dressing, Toileting, Toilet transfers, Community Reintegration, Higher functioning activities, Household tasks, Adaptive Equipment, Splinting and Otheractivities as determined Patient requires 24/ Rehabilitation Nursing for: Pain Issues, Identifying and preventing risk factors, Monitoring and reporting current medical conditions, Assisting with ambulation, transfer, and all ADL's, Teaching patients about disease process and medications, Family teaching, Providing safe environment, Bowel and Bladder Issues, Skin integrity and Medication Management Patient needs Thermal Surfacing Machine Operator/ Case Management for: Discharge Planning, Arranging Home Equipment orServices and Family Interventions Patient needs Dietary and Nutrition Services for: Adequate Nutrition, Nutritional Supplements and Nutritional Education Goals Goals Patient will remain: free from falls Patient will perform eating at: MOD I level of assist. Patient will perform bed mobility at: MOD I level of assist. Patient will complete transfers from bed to chair at: Standby Assist. Patient will ambulate: - (165 feet with least restrictive device at standby assist on various surfaces) Patient will complete upper body dressing at: - (Supervision) Patient will complete lower body dressing at: - (Supervision with adaptive equipment as needed.) Patient will complete toilet transfer at: - (Supervision) Patient will complete toileting at: - (Supervision) Patient will perform bathing at: - (Upper body bathing at supervision and lower body bathing at supervision with adaptive equipment as needed to increase independence.) Patient will perform Tub/Shower transfer at: - (Supervision using DME as needed.) Patient will complete grooming at: - (Supervision while standing at the sink.) Patient will achieve: - (He will complete 1+1 steps with 1 handrail and least restrictive device atcontact-guard assist to allow access to his home entrance.) Patient will have pain level of: of 3 or less Patient's skin will: remain intact Patient will receive: adequate nutrition. Discharge Planning Pt Prognosis for Sig. Practical Improv. w/in Reasonable Time: Good Estimated Length of stay (days): 21 Anticipated D/C Destination: Home with Outpt Therapy Was Preadmission Assessment Accurate?: Yes 12/27/24 0848 Cosigner Signature (if applicable): CC: ~ Signed [facility]03-04-2025 History and physical note Author Saumya Bobo [facility] Note Date/Time December 25, 2024 8:57 am [facility] Medical Records Department [address] [place] [address] History & Physical Exam 12/24/24 6190 MR#: [id number] Acct: [id number] Name: FRANK ZIMMER Rep #:[id number] : 1960 64 From: Saumya Bobo DO PCP: Dr. Reagan Soto MD Status:AD M IN Location: [id number] Date of Admission: 12/24/24 Date of Service: 12/24/24 Chief Complaint: Debility due to cervical canal stenosis with myelopathy and neuropathy. S/P cervical laminectomy and fusion. [facility] Katt ZIMMER, is a 64 YO M with a PMH of coronary artery disease, PCI x 4, ventricular tachycardia, AICD placement, left bundle branch block, ischemic cardiomyopathy (he 30% EF on echocardiogram in 2021), history of EPS with successful ablation of VT on 02/22/2022, hx of recurrent Vt following ablation when amiodarone was discontinued, hypertension, diabetes mellitus type 2, hyperlipidemia and cervical canal stenosis with myelopathy and neuropathy. He underwent C2-T1 posterior spinal fusion on 12/20/2024 at [facility]. Postoperative complication included mild acute blood loss anemia. He was transferred to the acute inpt rehab unit at [facility] on 12/24/24 for 3 hours of therapy daily to restore function/independence at or near his level prior to surgery. Prior to surgery he was in a WC and could not move the R leg. He had decreased sensation in both hands and in the RUE and RLE. Sx started approximately 3 years ago and have progressed since then. He has also been falling at home and has had severe radicular pain, rohini in the RLE. MRI of the cervical spine done on 12/10/2023 and it showed acquired severe multilevel spinal stenosis, greatest at C6-C7. There was also acquired severe multilevel bilateral foraminal narrowing and multifocal areas of increased cord signal throughout the cervical spine likely related to myelomalacia from severe multilevel spinal stenosis. Hesees Dr. Medina for pain management. He was taking Tramadol 50 mg Q6 PRN prior to surgery and has had epidurals for low back pain in the past. ECHO on 12/21/2024 showed an EF of 45 to 50% with basal inferior segment mildly hypokinetic. There was normal diastolic function. The right ventricle was normal. Left atrial cavity was mildly dilated and a bubble study was negative for PFO/ASD. Vital signs at presentation to rehab are temp 97.3, heart rate 61, blood pressure 98/57 and pulse ox of 97% on room air. Hemoglobin A1c on 12/17/2024 was 6.3. [facility] Medical History (Updated 12/25/24 @ 09:[address] Saumya Bobo, ) Radiculopathy due to cervical spondylosis at multiple levels Myelopathy concurrent with and due to spinal stenosis of cervical region Cervical stenosis of spinal canal Left bundle branch block Tobacco dependence in remission Hyperlipidemia Positive colorectal cancer screening using Cologuard test Presence of cardiac resynchronization therapy defibrillator (PLAY THERAPIST-D) (~11/19/19) Presence of stent in coronary artery (~09/29/17) Wears partial dentures Wears glasses Cancer Arthritis Injury of back Shortness of breath on exertion Chronic cough History of edema Hypertension History of CHF (congestive heart failure) History of stress test History of echocardiogram Normal stress echocardiogram Cardiology follow-up encounter NSVT (nonsustained ventricular tachycardia) Pericardial effusion Dilated cardiomyopathy Hypersomnia Premature ventricular contractions Shortness of breath Bradycardia Bladder cancer NSTEMI (non-ST elevated myocardial infarction) Atherosclerotic heart disease of [place] coronary artery with other forms of angina pectoris Unstable angina Sustained ventricular tachycardia Home Medications ?Medication ?Instructions ?Recorded ?Last Taken ?Type aspirin 81 mg tablet,delayed 81 mg PO DAILY@0800 heart 09/15/17 11/21/24 Rx release carvedilol 25 mg tablet 12.5 mg PO BID heart 9 11/21/24 History rosuvastatin 40 mg tablet 40 mg PO QHS cholesterol 11/20/24 History metformin 500 mg tablet,extended 500 mg PO BID dm 11/1311/21/24 History release 24 hr empagliflozin 25 mg tablet 25 mg PO DAILY dm 04/07/22 11/20/24 History (Jardiance) amiodarone 400 mg tablet 200 mg PO DAILY heart 11/21/24 History furosemide 20 mg tablet (Lasix) 20 mg PO DAILY lazaro denny #90 tabs 08/23/24 11/21/24 Rx gabapentin 300 mg capsule 300 mg PO Q8H pain 12/24/24 Unknown History lisinopril 40 mg tablet 5 mg PO DAILY bp 12/24/24 Un known History oxycodone 5 mg tablet 5 - 10 mg PO Q4H PRN pain Unknown History Allergy/AdvReac Type Severity Reaction Status Date / Time morphine AdvReac Nausea/Vom/ Verified 12/24/24 17:13 Diarrhea Family History Mother CVA (cerebral vascular accident) Breast cancer Father Diabetes Heart disease Hypertension Sister Diabetes Hypertension Surgical History (Updated 12/25/24 @ 09:[address] Saumya Bobo DO) H/O laminectomy History of cardiac radiofrequency ablation Presence of coronary angioplasty implant and graft (~09/29/17) Hx of cystoscopy History of coronary artery stent placement History of cardiac catheterization History of left heart catheterization (11/07/19) H/O lumbar discectomy Social History household members: spouse and other details: Stuart's name is Holly housing: house number of children: 2 Smoking Status: Former smoker Tobacco: How many years used: 43 how long ago did patient quit smokin09/13/2018 alcohol intake: current alcohol intake frequency: holidays/special occasions only substance use type: does not use caffeine: No what type of physical activity do you participate in: none and additional details: Has been in a WC recently and prior to that had a walker How many days of moderate to strenuous exercise, like a brisk walk, did you do in the last 7 days: 0 seatbelt use: always do you feel safe at home: Yes ROS Constitutional Constitutional: Reports change in weight, difficulty sleeping, weight loss and other Details: Change in weight of about 80 lbs in the past 1-2 years. Used Mounjaro and healthy diet. ; Denies anorexia, chills, fatigue, fever(s), night sweats or weakness Eyes Eyes: Denies blurry vision, change in vision, eye pain or loss of vision ENT HEENT: Denies abnormal hearing, dysphagia, headache(s), hearing loss, nasal congestion, rhinorrhea, sinus pain or sore throat Cardiovascular Cardiovascular: Denies chest pain, dyspnea on exertion, edema, lightheadedness, orthopnea, palpitations, paroxysmal nocturnal dyspnea or syncope Respiratory/Chest Respiratory/Chest: Reports other Details: Feels congested......can not get a good cough to clear his throat which he attributes to the [place] J collar. Denies any hx of Asthma/COPD/emphysema ; Denies cough, dyspnea, shortness of breath at rest, shortness of breath with exertion or wheezing Gastrointestinal Gastrointestinal: Reports other Details: Had been constipated but, had a large BM today prior to coming to rehab ; Denies abdominal pain, constipation, diarrhea, dyspepsia, hematemesis, hematochezia, nausea or vomiting Genitourinary Genitourinary: Reports nocturia, urinary frequency, urinary hesitancy and other Details: Has a hx of bladder CA treated with intravesical radiation. has frequent nocturia......sometimes 5 times a night. Sometimes does not feel like he completely empties......has to bear down at times. Had a Fernandez at previous hospital ; Denies dysuria, hematuria, urinary incontinence or urinary urgency Musculoskeletal Musculoskeletal: Reports back pain, neck pain and other Details: c/o pain in thetailbone. ; Denies joint pain or joint swelling Neurologic Neurologic: Reports focal weakness, paresthesias RUE and RLE (both hands) and other Details: has not been able to move the R leg or feel it in the past several months ; Denies confusion, disequilibrium, dizziness, headache(s), seizures, syncope or tremor(s) Psychiatric Psychiatric: Denies anxiety, depression, homicidal ideation or suicidal ideation Endocrine Endocrinology: Denies change in body appearance, cold intolerance, excessive sweating, heat intolerance, polydipsia or polyuria Hematologic/Lymphatic Hematologic/Lymphatic: Denies easy bleeding, easy bruising or lymphadenopathy Allergic/Immunologic Allergic/Immunologic: Denies rhinitis, eczemia or asthma Physical Exam Const alert and oriented x3 Constitutional Narrative: Making good eye contact, appropriate. Appears to be in pain. Increased pain with the ambulance ride from the previous hospital. General Appearance: cooperative and well kempt HEENT moist oral mucous membranes HEENT Narrative: No thrush. Tongue protrudes on the midline. Head and Scalp: normocephalic and atraumatic Eyes PERRL, EOMs intact bilaterally, conjunctivae normal and no scleral icterus Eyes Narrative: No discharge from the eyes General Eye: normal appearance of both eyes Neck Neck Narrative: [place] J collar is in place. Chest Chest: symmetrical chest wall rise Resp normal respiratory effort, no use of accessory muscles and clear to auscultationbilaterally Resp Narrative: Not tachypneic and no conversational dyspnea. No coughing with deep breath. Effort and Inspection: able to speak in complete sentences Cardio regular rate, regular rhythm, S1 normal heart sound, S2 normal heart sound, no murmurs, no rub and no gallops Cardio Narrative: No ectopy GI normal to inspection, nondistended, normoactive bowel sounds and non-tender GI Narrative: No guarding with palpation. Back/Spine General Back: Negative for CVA tenderness Extremity no clubbing, cyanosis or edema and no calf tenderness Skin no jaundice Neuro oriented x3 and CN's II-XII intact bilaterally Neuro Narrative: good director of physiotherapy services strength BL. R hand dominant. Hold both arms up for 10 sec with no drift. Holds the left leg up for a count of 5 with no drift. Has some drift with the RLE. The R legs is weaker than the left. Good plantar flexion and dorsiflexion BL. Decreased sensation to pinprick in the RUE and the RLE. No facial asymmetry. Had no movement in the RLE prior to the surgery. No gross hearing deficits. Motor Exam: strength 5/5 throughout Psych affect normal Psych Narrative: Appropriate, making good eye contact. Able to stay on topic and focus. No flight of ideas. Does not appear anxious or depressed. Conversant with me. Appearance: grossly normal, appropriate and well kempt Attitude: calm and engaged Results Lab / Micro Data 12/25/24 05:29 12/25/24 05:29 Assessment & Plan Assessment/Plan (1) Debility: (2) Cervical stenosis of spinal canal: (3) Myelopathy concurrent with and due to spinal stenosis of cervical region: (4) Radiculopathy due to cervical spondylosis at multiple levels: (5) H/O laminectomy: (6) Acute blood loss anemia: (7) Urine retention: (8) Diabetes mellitus, type II: QUALIFIERS: Diabetes mellitus moth exterminator insulin use: without detention use Diabetes mellitus complication status: without complication QualifiedCode(s): E11.9 - Type 2 diabetes mellitus without complications (9) Hyperlipidemia: QUALIFIERS: Hyperlipidemia type: unspecified Qualified Code(s): E78.5 - Hyperlipidemia, unspecified (10) Hypertension: QUALIFIERS: Hypertension type: primary hypertension Qualified Code(s): I10 - Essential (primary) hypertension (11) Presence of cardiac resynchronization therapy defibrillator (PLAY THERAPIST-D): (12) Presence of stent in coronary artery: (13) NSVT (nonsustained ventricular tachycardia): (14) Dilated cardiomyopathy: (15) Bladder cancer: QUALIFIERS: Bladder location: unspecified site Qualified Code(s):C67.9 - Malignant neoplasm of bladder, unspecified PLAN: Plan PLAN PT for gait stability OT for ADL's Analgesics as needed Bowel protocol Fall precautions Assess for Anxiety/Depression GI prophylaxis -not necessary at this time. Denies heartburn, epigastric pain, nausea/vomiting. Denies history of peptic ulcer disease. DVT prophylaxis with heparin 5000 units SQ every [address] up with Dr. Lacey Mcdermott, PCP, cardiology following DC from Rehab. He is also going to follow up with the EP service at [facility] for possible repeat ablation of VT. AM lab including CMP, CBC, Mag and Phos Accuchecks AC and HS and SSI coverage. Continue Metformin 500 mg BID CArb controlled heat healthy diet. DC Tramadol for now........he tells me that his pain is not adequately controlled at present and he gets better relief with Percocet. Will schedul Oxycodone 10 mg at 0700 and 12 noon to get him through therapy and then use PRN in the evening/night. Stool softeners prescribed. 75 minutes spent reviewing past diagnostic tests, lab results, vital sign trends, medical history, medications, all additional paperwork sent by the previous hospital, and ordering medications, examining the the patient and completing documentation. Charges/Coding Visit Charges Inpatient E&M: 77724 Init Hosp L3 12/25/24 0957 <Electronically signed by Saumya Bobo DO> Cosigner Signature (if applicable): CC: Dr. Reagan Soto MD; Dr. Saumya Bobo DO~ Signed [facility] Work Phone: [phone] 782-419803-04-2025 History and physical note [facility] Medical Records Department [address] [place] [address] History & Physical Exam 12/24/24 1713 MR#: [id number] Acct: [id number] Name: FRANK ZIMMER Rep #:[id number] : 1960 64 From: Saumya Bboo DO PCP: Dr. Reagan Soto MD Status:AD M IN Location: [id number] Date of Admission: 12/24/24 Date of Service: 12/24/24 Chief Complaint: Debility due to cervical canal stenosis with myelopathy and neuropathy. S/P cervical laminectomy and fusion. [facility] Katt ZIMMER, is a 64 YO M with a PMH of coronary artery disease, PCI x 4, ventricular tachycardia,AICD placement, left bundle branch block, ischemic cardiomyopathy (he 30% EF on echocardiogram in 2021), history of EPS with successful ablation of VT on 02/22/2022, hx of recurrent Vt following ablation when amiodarone was discontinued, hypertension, diabetes mellitus type 2, hyperlipidemia and cervical canal stenosis with myelopathy and neuropathy. He underwent C2-T1 posterior spinal fusion on 12/20/2024 at [facility]. Postoperative complication included mild acute blood loss anemia. He was transferred to the acute inpt rehab unit at [facility] on 12/24/24 for 3 hours of therapy dailyto restore function/independence at or near his level prior to surgery. Prior to surgery he was in a WC and could not move the R leg. He had decreased sensation in both hands and in the RUE and RLE. Sx started approximately 3 years ago and have progressed since then. He has also been falling at home and has had severe radicular pain, rohini in the RLE. MRI of the cervicalspine done on 12/10/2023 and it showed acquired severe multilevel spinal stenosis, greatest at C6-C7. There was also acquired severe multilevel bilateral foraminal narrowing and multifocal areas of increased cord signal throughout the cervical spine likely related to myelomalacia from severe multilevel spinal stenosis. Hesees Dr. Medina for pain management. He was taking Tramadol 50 mg Q6 PRN prior to surgery and has had epidurals for low back pain in the past. ECHO on 12/21/2024 showed an EF of 45 to 50% with basal inferior segment mildly hypokinetic. There was normal diastolic function. The right ventricle was normal. Left atrial cavity was mildly dilated and a bubble study was negative for PFO/ASD. Vital signs at presentation to rehab are temp 97.3, heart rate 61, blood pressure 98/57 and pulse ox of 97% on room air. Hemoglobin A1c on 12/17/2024 was 6.3. [facility] Medical History (Updated 12/25/24 @ 09:[address] Saumya Bobo, ) Radiculopathy due to cervical spondylosis at multiple levels Myelopathy concurrent with and due to spinal stenosis of cervical region Cervical stenosis of spinal canal Left bundle branch block Tobacco dependence in remission Hyperlipidemia Positive colorectal cancer screening using Cologuard test Presence of cardiac resynchronization therapy defibrillator (PLAY THERAPIST-D) (~11/19/19) Presence of stent in coronary artery (~09/29/17) Wears partial dentures Wears glasses Cancer Arthritis Injury of back Shortness of breath on exertion Chronic cough History of edema Hypertension History of CHF (congestive heart failure) History of stress test History of echocardiogram Normal stress echocardiogram Cardiology follow-up encounter NSVT (nonsustained ventricular tachycardia) Pericardial effusion Dilated cardiomyopathy Hypersomnia Premature ventricular contractions Shortness of breath Bradycardia Bladder cancer NSTEMI (non-ST elevated myocardial infarction) Atherosclerotic heart disease of [place] coronary artery with other forms of angina pectoris Unstable angina Sustained ventricular tachycardia Home Medications ?Medication ?Instructions ?Recorded ?Last Taken ?Type aspirin 81 mg tablet,delayed 81 mg PO DAILY@0800 heart 09/15/17 11/21/24 Rx release carvedilol 25 mg tablet 12.5 mg PO BID heart 9 11/21/24 History rosuvastatin 40 mg tablet 40 mg PO QHS cholesterol 11/20/24 History metformin 500 mg tablet,extended 500 mg PO BID dm 0211/1311/21/24 History release 24 hr empagliflozin 25 mg tablet 25 mg PO DAILY dm 04/07/22 11/20/24 History (Jardiance) amiodarone 400 mg tablet 200 mg PO DAILY heart 11/21/24 History furosemide 20 mg tablet (Lasix) 20 mg PO DAILY lazaro denny #90 tabs 08/23/24 11/21/24 Rx gabapentin 300 mg capsule 300 mg PO Q8H pain 12/24/24 Unknown History lisinopril 40 mg tablet 5 mg PO DAILY bp 12/24/24 Un known History oxycodone 5 mg tablet 5 - 10 mg PO Q4H PRN pain Unknown History Allergy/AdvReac Type Severity Reaction Status Date / Time morphine AdvReac Nausea/Vom/ Verified 12/24/24 17:13 Diarrhea Family History Mother CVA (cerebral vascular accident) Breast cancer Father Diabetes Heart disease Hypertension Sister Diabetes Hypertension Surgical History (Updated 12/25/24 @ 09:[address] Saumya Bobo DO) H/O laminectomy History of cardiac radiofrequency ablation Presence of coronary angioplasty implant and graft (~09/29/17) Hx of cystoscopy History of coronary artery stent placement History of cardiac catheterization History of left heart catheterization (11/07/19) H/O lumbar discectomy Social History household members: spouse and other details: Stuart's name is Holly housing: house number of children: 2 Smoking Status: Former smoker Tobacco: How many years used: 43 how long ago did patient quit smokin09/13/2018 alcohol intake: current alcohol intake frequency: holidays/special occasions only substance use type: does not use caffeine: No what type of physical activity do you participate in: none and additional details: Has been in a [place] and prior to that had a walker How many days of moderate to strenuous exercise, like a brisk walk, did you do in the last 7 days: 0 seatbelt use: always do you feel safe at home: Yes ROS Constitutional Constitutional: Reports change in weight, difficulty sleeping, weight loss and other Details: Change in weight of about 80 lbs in the past 1-2 years. Used Mounjaro and healthy diet. ; Denies anorexia, chills, fatigue, fever(s), night sweats or weakness Eyes Eyes: Denies blurry vision, change in vision, eye pain or loss of vision ENT HEENT: Denies abnormal hearing, dysphagia, headache(s), hearing loss, nasal congestion, rhinorrhea,sinus pain or sore throat Cardiovascular Cardiovascular: Denies chest pain, dyspnea on exertion, edema, lightheadedness, orthopnea, palpitations, paroxysmal nocturnal dyspnea or syncope Respiratory/Chest Respiratory/Chest: Reports other Details: Feels congested......can not get a good cough to clear his throat which he attributes to the [place] J collar. Denies any hx of Asthma/COPD/emphysema ; Denies cough, dyspnea, shortness of breath at rest, shortness of breath with exertion or wheezing Gastrointestinal Gastrointestinal: Reports other Details: Had been constipated but, had a large BM today prior to coming to rehab ; Denies abdominal pain, constipation, diarrhea, dyspepsia, hematemesis, hematochezia, nausea or vomiting Genitourinary Genitourinary: Reports nocturia, urinary frequency, urinary hesitancy and other Details: Has a hx of bladder CA treated with intravesical radiation. has frequent nocturia......sometimes 5 times a night. Sometimes does not feel like he completely empties......has to bear down at times. Had a Fernandez at previous hospital ; Denies dysuria, hematuria, urinary incontinence or urinary urgency Musculoskeletal Musculoskeletal: Reports back pain, neck pain and other Details: c/o pain in thetailbone. ; Denies joint pain or joint swelling Neurologic Neurologic: Reports focal weakness, paresthesias RUE and RLE (both hands) and other Details: has not been able to move the R leg or feel it in the past several months ; Denies confusion, disequilibrium, dizziness, headache(s), seizures, syncope or tremor(s) Psychiatric Psychiatric: Denies anxiety, depression, homicidal ideation or suicidal ideation Endocrine Endocrinology: Denies change in body appearance, cold intolerance, excessive sweating, heat intolerance, polydipsia or polyuria Hematologic/Lymphatic Hematologic/Lymphatic: Denies easy bleeding, easy bruising or lymphadenopathy Allergic/Immunologic Allergic/Immunologic: Denies rhinitis, eczemia or asthma Physical Exam Const alert and oriented x3 Constitutional Narrative: Making good eye contact, appropriate. Appears to be in pain. Increased pain with the ambulance ridefrom the previous hospital. General Appearance: cooperative and well kempt HEENT moist oral mucous membranes HEENT Narrative: No thrush. Tongue protrudes on the midline. Head and Scalp: normocephalic and atraumatic Eyes PERRL, EOMs intact bilaterally, conjunctivae normal and no scleral icterus Eyes Narrative: No discharge from the eyes General Eye: normal appearance of both eyes Neck Neck Narrative: [place] J collar is in place. Chest Chest: symmetrical chest wall rise Resp normal respiratory effort, no use of accessory muscles and clear to auscultationbilaterally Resp Narrative: Not tachypneic and no conversational dyspnea. No coughing with deep breath. Effort and Inspection: able to speak in complete sentences Cardio regular rate, regular rhythm, S1 normal heart sound, S2 normal heart sound, no murmurs, no rub and no gallops Cardio Narrative: No ectopy GI normal to inspection, nondistended, normoactive bowel sounds and non-tender GI Narrative: No guarding with palpation. Back/Spine General Back: Negative for CVA tenderness Extremity no clubbing, cyanosis or edema and no calf tenderness Skin no jaundice Neuro oriented x3 and CN's II-XII intact bilaterally Neuro Narrative: good director of physiotherapy services strength BL. R hand dominant. Hold both arms up for 10 sec with no drift. Holds the left leg up for a count of 5 with no drift. Has some drift with the RLE. The R legs is weaker than the left. Good plantar flexion and dorsiflexion BL. Decreased sensation to pinprick in the RUE and the RLE. No facial asymmetry. Had no movement in the RLE prior to the surgery. No gross hearing deficits. Motor Exam: strength 5/5 throughout Psych affect normal Psych Narrative: Appropriate, making good eye contact. Able to stay on topic and focus. No flight of ideas. Does notappear anxious or depressed. Conversant with me. Appearance: grossly normal, appropriate and well kempt Attitude: calm and engaged Results Lab / Micro Data 12/25/24 05:29 12/25/24 05:29 Assessment & Plan Assessment/Plan (1) Debility: (2) Cervical stenosis of spinal canal: (3) Myelopathy concurrent with and due to spinal stenosis of cervical region: (4) Radiculopathy due to cervical spondylosis at multiple levels: (5) H/O laminectomy: (6) Acute blood loss anemia: (7) Urine retention: (8) Diabetes mellitus, type II: QUALIFIERS: Diabetes mellitus moth exterminator insulin use: without detention use Diabetes mellitus complication status: without complication QualifiedCode(s): E11.9 - Type 2 diabetes mellitus without complications (9) Hyperlipidemia: QUALIFIERS: Hyperlipidemia type: unspecified Qualified Code(s): E78.5 - Hyperlipidemia, unspecified (10) Hypertension: QUALIFIERS: Hypertension type: primary hypertension Qualified Code(s): I10 - Essential (primary) hypertension (11) Presence of cardiac resynchronization therapy defibrillator (PLAY THERAPIST-D): (12) Presence of stent in coronary artery: (13) NSVT (nonsustained ventricular tachycardia): (14) Dilated cardiomyopathy: (15) Bladder cancer: QUALIFIERS: Bladder location: unspecified site Qualified Code(s):C67.9 - Malignant neoplasm of bladder, unspecified PLAN: Plan PLAN PT for gait stability OT for ADL's Analgesics as needed Bowel protocol Fall precautions Assess for Anxiety/Depression GI prophylaxis -not necessary at this time. Denies heartburn, epigastric pain, nausea/vomiting. Denies history of peptic ulcer disease. DVT prophylaxis with heparin 5000 units SQ every 8 [address] up with Dr. Lacey Mcdermott, PCP, cardiology following DC from Rehab. He is also going to follow up with the EP service at [facility] for possible repeat ablation of VT. AM lab including CMP, CBC, Mag and Phos Accuchecks AC and HS and SSI coverage. Continue Metformin 500 mg BID CArb controlled heat healthy diet. DC Tramadol for now........he tells me that his pain is not adequately controlled at present and hegets better relief with Percocet. Will schedul Oxycodone 10 mg at 0700 and 12 noon to get him through therapy and then use PRN in the evening/night. Stool softeners prescribed. 75 minutes spent reviewing past diagnostic tests, lab results, vital sign trends, medical history, medications, all additional paperwork sent by the previous hospital, and ordering medications, examining the the patient and completing documentation. Charges/Coding Visit Charges Inpatient E&M: 51868 Init Hosp L3 12/25/24 0957 Cosigner Signature (if applicable): CC: Dr. Reagan Soto MD; Dr. Saumya Bobo DO~ Signed [facility]03-03-2025 Evaluation note* Diagnosis Onset Date Resolution Status Admit Date Acute blood loss anemia acute M 2024 4:25pm Debility acute December 24 4:25pm NSVT (nonsustained ventricul ar tachycardia) acute December 24, 2024 4:25pm Anxiety and depression chronic Ma h 2024 4:25pm Chronic low back pain chronic Mar 2024 4:25pm Myelopathy concurrent 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 spinal stenosis of cervical region chronic December 24, 2024 4:25pm Pulmonary nodules/lesions, multiple chronic December 24, 2024 4:25pm Radiculopathy due to cervica l spondylosis at multiple levels chronic M arch 2024 4:25pm Urine retention chronic December 4:25pm COPD (chronic obstructive pulmonary disease) suspected December 24 4:25pm Bronchospasm, acute resolved December 24, 2024 4:25pm Cervical stenosis of spinal canal resolved December 24, 2024 4:25pm COPD with acute exacerbation resolve d December 24, 2024 4:25pm Hypoxemia resolved December 24 4:25pm Insomnia resolved December 24 4:25pm Bladder cancer inactive December 24, 2024 4:25pm Diabetes mellitus, type II inactive December 24, 2024 4:25pm Dilated cardiomyopathy inactive [facility] 2024 4:25pm H/O laminectomy inactive December 4:25pm Hyperlipidemia inactive December 24, 2024 4:25pm Hypertension inactive December 24 4:25pm Presence of cardiac resynchronization therapy defibrillator (PLAY THERAPIST-D) October, inactive December 24, 2024 4:25pm Presence of stent in coronar y artery September, inactive December 24, 2024 4:25pm long term acute care registered nurse current use of amiodarone acute February 01, 2025 3:26pm NSVT (nonsustained ventricul ar tachycardia) acute February 01, 2025 3:26pm 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 inactive February 01, 2025 3:26pm Dilated cardiomyopathy inactive 2024 3:26pm Presence of cardiac resynchronization therapy defibrillator (PLAY THERAPIST-D) October, inactive January 3:26pm [facility] Work Phone: 1(800) 807-142603-03-2025 [facility]03-03-2025 NoteHNO ID: [id number] Author: PANCHO SON, ROZINA Service: Care Management Author Type: Registered Nurse Type: Care Mgt Progress Note Filed: 12/24/2024 13:51 Note Text: CARE MANAGEMENT DISCHARGE NOTE SERVICE DATE: December 24, 2024 SERVICE TIME: 1:48 PM Admission Date: 12/19/2024 LOS: 4 days Discharge Arrangement Discharge Arrangement: Acute Rehabilitation Facility Services Arranged Acute Rehab Provider Name: [facility] [place] Caregiver Assessment Caregiver is ready, willing and able to meet the patient's needs as recommended by the inter-professional team: Yes Name of Caregiver: Shantanu CASTORENA Transportation Arrangements Transportation Arrangements: Ambulance Transportation Agency and Phone #:: [facility] ( [facility] ) [phone] / [phone] Date of Trip: 12/24/24 Time of Trip: 1500 Type of Service: BLS Non-emergency Is Patient Medicaid Pending?: No Was transportation financial coverage discussed with family?: Patient Machine Sewer Location: [facility] Destination: [facility] Acute Rehab Financial Care Management Responsibility: None Handoff Communication: Bedside Rn to call N2N report Additional Information: Discharge today to [facility] Acute Rehab at 3p. DC discussed with patient and Melanie, both are in agreement. DC reviewed with primary team and bedside RN. Dc summary to be sent electronically to AR. SIGNATURE: Pancho Son RN PATIENT NAME: Frank Zimmer DATE: December 24, 2024 TIME: 1:48 [facility]03-03-2025 NoteHNO ID: [id number] Author: PANCHO SON RN Service: Care Management Author Type: Registered Nurse Type: Care Mgt Progress Note Filed: 12/24/2024 13:13 Note Text: CARE MANAGEMENT PROGRESS NOTE SERVICE DATE: 12/24/2024 SERVICE TIME: 10:22 AM LOS: 4 days Needs Prior to Discharge: Accepting Facility, Discharge Transportation Spoke to Lauren [phone] at [facility], they are reviewing for acceptance. They are able to see info in [employer]port but are not able to respond in [employer]port. Communication need to be via phone. Will need accepting facility, does not require auth, will need cot transport. CM to continue to follow. [facility] has accepted, updated patient and he is in agreement with plans. SIGNATURE: Pancho Son RN PATIENT NAME: Frank Zimmer DATE: December 24, 2024 TIME: 10:22 [facility]03-03-2025 NoteHNO ID: [id number] Author: VANNESA DIOR APRN.PROJECT SYSTEMS ENGINEER Service: Neurosurgery Author Type: Nurse Practitioner Type: Progress Notes Filed: 12/24/2024 10:25 Note Text: Neurosurgery Progress Note SERVICE DATE: 12/24/2024 SUBJECTIVE: NAEON. Patient verbalizes right leg pain and weakness greatly improved. Patient denies any new numbness or tingling, endorses some residual left 5th digit numbness bilaterally. Anxious to get closer to home with AR. OBJECTIVE: Vitals: Temp (24hrs), Av.7 ?C (98 ?F), Min:36.6 ?C (97.9 ?F), Max:36.7 ?C (98 ?F) BP 124/70 Pulse 64 Temp 36.6 ?C (97.9 ?F) (Oral) Resp 18 Ht 195.6 cm (6' 5) Wt 93.9 kg (207 lb 0.2 oz) SpO2 95% BMI 24.55 kg/m? O2 Therapy: Nasal Cannula IANDO: Date 12/23/24 07 - 12/24/24 0659 12/24/24 07 - 12/25/24 0659 Shift 7324-7203 4577-8830 1876-4863 24 Hour Total 6166-1748 2728-0162 3769-2044 24 Hour Total INTAKE PO 240 240 PO 240 240 Shift Total 240 240 OUTPUT Urine 476 952 8173 1800 100 100 Void (ml) 311 885 9261 1800 100 100 Urine Not Saved. 1 x 1 x 2 x Tubes 35 20 50 105 Drain/Tube Output (Drain/Tube 12/20/24 1601 [facility] Hemovac Posterior Neck Drain #1) 35 20 50 105 # of BMs Number of BMs 0 x 0 x Shift Total 323 526 5750 1905 100 100 Weight (kg) 93.9 93.9 93.9 93.9 93.9 93.9 93.9 93.9 MEDICATIONS Current Facility-Administered Medications Medication Dose Route Frequency magnesium hydroxide 400 mg/5 mL 30 mL (MOM) 30 mL ORAL BID bisacodyl 10 mg suppository (DULCOLAX) 10 mg RECTAL DAILY lidocaine 4 % 2 Patch (SALONPAS) 2 Patch TRANSDERMAL DAILY AT 9 PM And lidocaine patch - REMOVE OTHER DAILY And lidocaine - VERIFY PATCH OTHER q 8 H gabapentin 300 mg cap(s) (NEURONTIN) 300 mg ORAL q 8 H carvedilol 12.5 mg tab(s) (COREG) 12.5 mg ORAL BID w MEALS polyethylene glycol 3350 17 g packet 17 g ORAL/FEEDING TUBE BID HYDROmorphone 0.4 mg injection (DILAUDID) 0.4 mg INTRAVENOUS q 3 H PRN lisinopril 5 mg tab(s) (ZESTRIL) 5 mg ORAL DAILY senna-docusate 8.6-50 mg 2 tablet (SENNA-S) 2 tablet ORAL/FEEDING TUBE BID ipratropium-albuterol 3 mL nebulizer solution (DUONEB) 3 mL INHALATION q 4 H PRN heparin 5,000 Units injection 5,000 Units SUBCUTANEOUS q 8 H ondansetron (PF) 4 mg injection (ZOFRAN) 4 mg INTRAVENOUS q 6 H PRN oxyCODONE IR 5-10 mg tab(s) (ROXICODONE) 5-10 mg ORAL q 4 H PRN acetaminophen 650 mg tab(s) (TYLENOL) 650 mg ORAL q 6 H sodium chloride 0.9 % (flush) 2-10 mL (BD POSIFLUSH) 2-10 mL INTRAVENOUS DIRECTED PRN And perflutren lipid microspheres 1.1 mg/mL 1.3 mL injection (DEFINITY) 1.3 mL INTRAVENOUS DIRECTED PRN phosphorus 500 mg tab(s) (K PHOS NEUTRAL) 500 mg ORAL/FEEDING TUBE PRN(NO DISPENSE) calcium gluconate iv piggyback 2 g in NaCl (iso-osmotic) 100 mL 2 g INTRAVENOUS PRN(NO DISPENSE) amiodarone 200 mg tab(s) (PACERONE) 200 mg ORAL DAILY rosuvastatin 40 mg tab(s) (CRESTOR) 40 mg ORAL AT BEDTIME NaCl 0.9% iv flush bag 20 mL INTRAVENOUS PRN dextrose 15 gram/32 mL 15 g (TRUEPLUS) 15 g ORAL PRN Or glucagon 1 mg injection 1 mg INTRAMUSCULAR PRN Or dextrose 10% iv bolus 12.5 g INTRAVENOUS PRN insulin lispro injection (rapid acting) (ADMElog) SUBCUTANEOUS w MEALS sodium chloride 0.65 % 2 [place] 2 [place] EACH NOSTRIL PRN guaiFENesin 600 mg ER tab(s) (MUCINEX) 600 mg ORAL q 12 H PRN Labs: Recent Labs 12/24/24 0214 12/23/24 0504 12/23/24 0324 12/22/24 1615 12/22/24 0354 12/22/24 0224 12/21/24 1641 12/21/24 1044 NA 137 -- 133* -- 138 135* < > 133* K 4.1 -- -- -- 4.1 -- < > 4.4 CHLOR 103 -- 100 -- 103 101 < > 101 CO2 27 -- 24 -- 24 24 < > 20* BUN 18 -- 14 -- 18 20 < > 27* CREAT 0.61* -- 0.54* -- 0.60* 0.58* < > 0.69* GLUC 113* -- 125* -- 138* 143* < > 174* ANION 7* -- 9 -- 11 10 < > 12 CA 8.4* -- 8.5 -- 8.6 8.4* < > 8.9 MG -- -- -- -- -- 1.9 -- -- P 2.9 -- 2.5* -- -- 2.6* < > -- WBC 5.94 6.48 -- < > -- 7.19 -- -- HB 12.4* 12.3* -- < > -- 12.0* -- -- HCT 37.8* 37.1* -- < > -- 36.0* -- -- PLT 124* 118* -- < > -- 133* -- -- LACT -- -- -- -- -- -- -- 1.0 PH -- -- -- -- -- -- -- 7.43 PCO2 -- -- -- -- -- -- -- 34* PO2 -- -- -- -- -- -- -- 75* HCO3 -- -- -- -- -- -- -- 22 < > = values in this interval not displayed. Exam: GENERAL: Awake and alert; NAD; cooperative; pleasant NEURO: Orientedx3; speech clear and fluent; QUINN; no arm drift; residual fifth digit numbness bilaterally; improved strength to RLE STRENGTH: 5/5 throughout HEENT: Normocephalic; atraumatic; perrl/eomi; no facial droop LUNGS: Unlabored breathing BACK: Incision C/D/I; C-collar in place DRAIN: Hemovac with 105 output last 24hrs CARDIAC: Rate and rhythm as above ABDOMEN: Soft, non-tender, non-distended EXTREMITIES: No deformities, No edema SKIN: Skin color normal; Temperature normal; no rashes or lesions ASSESSMENT AND PLAN: Active Hospital Problems Diagnosis Date Noted Cervical stenosis of spinal canal 12/19/2024 Primary hyperte (more content not included)...[facility] 12-23-2024 NoteHNO ID: [id number] Author: SONIA EGAN MD Service: Hospital Medicine Author Type: Physician Type: Progress Notes Filed: 12/23/2024 14:56 Note Text: DEPARTMENT OF INTERNAL MEDICINE PROGRESS NOTE SERVICE DATE: 12/23/2024 Internal Medicine/Primary Attending: Sonia Egan MD SUBJECTIVE: No CP or SOB OBJECTIVE: PHYSICAL EXAM: BP 124/71 Pulse 60 Temp (Src) 97.3 (Oral) Resp 18 Ht 6' 5 (1.96m) Wt 207 lb 0.2 oz (93.9kg) SpO2 92% BMI 24.54 kg/(m2). O2 Therapy: Nasal Cannula, Liters (Numeric Only): 2.0 GEN: Alert, NAD HEENT: NCAT, No lymphadenopathy CVS: RRR, S1 S2 RESP: CTAB ABD: S/NT/ND (+) BS SKIN: No rash EXT: (+) pulses, no edema NEURO: CNII-XII grossly intact. MEDICATIONS: Current Facility-Administered Medications Medication Dose Route Frequency amiodarone 200 mg tab(s) (PACERONE) 200 mg ORAL DAILY rosuvastatin 40 mg tab(s) (CRESTOR) 40 mg ORAL AT BEDTIME NaCl 0.9% iv flush bag 20 mL INTRAVENOUS PRN dextrose 15 gram/32 mL 15 g (TRUEPLUS) 15 g ORAL PRN Or glucagon 1 mg injection 1 mg INTRAMUSCULAR PRN Or dextrose 10% iv bolus 12.5 g INTRAVENOUS PRN insulin lispro injection (rapid acting) (ADMElog) SUBCUTANEOUS w MEALS sodium chloride 0.65 % 2 [place] 2 [place] EACH NOSTRIL PRN guaiFENesin 600 mg ER tab(s) (MUCINEX) 600 mg ORAL q 12 H PRN ondansetron (PF) 4 mg injection (ZOFRAN) 4 mg INTRAVENOUS q 6 H PRN oxyCODONE IR 5-10 mg tab(s) (ROXICODONE) 5-10 mg ORAL q 4 H PRN acetaminophen 650 mg tab(s) (TYLENOL) 650 mg ORAL q 6 H sodium chloride 0.9 % (flush) 2-10 mL (BD POSIFLUSH) 2-10 mL INTRAVENOUS DIRECTED PRN And perflutren lipid microspheres 1.1 mg/mL 1.3 mL injection (DEFINITY) 1.3 mL INTRAVENOUS DIRECTED PRN phosphorus 500 mg tab(s) (K PHOS NEUTRAL) 500 mg ORAL/FEEDING TUBE PRN(NO DISPENSE) calcium gluconate iv piggyback 2 g in NaCl (iso-osmotic) 100 mL 2 g INTRAVENOUS PRN(NO DISPENSE) senna-docusate 8.6-50 mg 2 tablet (SENNA-S) 2 tablet ORAL/FEEDING TUBE BID ipratropium-albuterol 3 mL nebulizer solution (DUONEB) 3 mL INHALATION q 4 H PRN heparin 5,000 Units injection 5,000 Units SUBCUTANEOUS q 8 H lidocaine 4 % 2 Patch (SALONPAS) 2 Patch TRANSDERMAL DAILY AT 9 PM And lidocaine patch - REMOVE OTHER DAILY And lidocaine - VERIFY PATCH OTHER q 8 H gabapentin 300 mg cap(s) (NEURONTIN) 300 mg ORAL q 8 H carvedilol 12.5 mg tab(s) (COREG) 12.5 mg ORAL BID w MEALS polyethylene glycol 3350 17 g packet 17 g ORAL/FEEDING TUBE BID HYDROmorphone 0.4 mg injection (DILAUDID) 0.4 mg INTRAVENOUS q 3 H PRN lisinopril 5 mg tab(s) (ZESTRIL) 5 mg ORAL DAILY magnesium hydroxide 400 mg/5 mL 30 mL (MOM) 30 mL ORAL BID bisacodyl 10 mg suppository (DULCOLAX) 10 mg RECTAL DAILY DATA: Diagnostic tests reviewed for today's visit: CBC: Recent Labs 12/23/24 0504 WBC 6.48 RBC 3.90* HB 12.3* HCT 37.1* PLT 118* MCV 95.1 MCH 31.5 MPV 10.7 Coags: No results for input(s): PT, INR, APTT in the last 24 hours. BMP: Recent Labs 12/23/24 0324 NA 133* CHLOR 100 CO2 24 BUN 14 CREAT 0.54* GLUC 125* CMP: Recent Labs 12/23/24 0324 NA 133* CHLOR 100 CO2 24 BUN 14 CREAT 0.54* GLUC 125* CA 8.5 ANION 9 Cardiac Enzymes: No results for input(s): CK, MB, CKMB, TROPT in the last 24 hours. Liver Function, Amylase, Lipase: No results for input(s): TPROT, ALB, ALT, AST, ALKPHOS, TBILI, AMYLASE, LIPASE, LACTATE in the last 24 hours. MG/PHOS: Recent Labs 12/23/24 0324 P 2.5* Heme: No results for input(s): RETICP, ABSRETIC, LD, AIAD, FE, TIBC,TRANSFERSAT in the last 24 hours. No results found for: UALBCR Problem List Cervical stenosis of spinal canal (POA: Yes) VT (ventricular tachycardia) (HCC) (POA: Yes) Ischemic cardiomyopathy (POA: Yes) Preop cardiovascular exam (POA: No) Cervical myelopathy (HCC) (POA: Status not on file) Primary hypertension (POA: Yes) HOSPITAL COURSE: Frank Zimmer is a 64 year old male presented with past medical history of Assessment/Plan Cervical stenosis with myelopathy Constipation -Management per primary -Scheduled bowel regimen. Monitor and record BMs -PT/OT rec acute rehab T2DM -A1c 6.1 08/02/24 per care everywhere labs. Cont with SSI, carb control diet, hypoglycemia protocol Ischemic cardiomyopathy CAD HTN HLD Hx Vtach s/p PLAY THERAPIST-D -Cont amiodarone 200 mg daily, coreg 12.5 mg BID (on 25 mg BID at home) lisinopril 5 mg daily for now (40 mg at home), up-titrate as tolerated. Cont Crestor 40 mg daily. -Repeat echo with improved EF from prior 30->45% EF Post op anemia -Hgb stable 12.3 I reviewed: Most recent labs and imaging results. Most recent labs Most recent imaging Most recent EKG Plan of care discussed with: Provider, RN, Patient SIGNATURE: Sonia Egan MD PATIENT NAME: Frank Zimmer DATE: December 23, 2024 TIME: 2:55 PM PAGER/CONTACT #: [facility]03-02-2025 NoteHNO ID: [id number] Author: REAGAN MCKEON APRN.PROJECT SYSTEMS ENGINEER Service: Neurosurgery Author Type: Nurse Practitioner Type: Progress Notes Filed: 12/23/2024 10:48 Note Text: Neurosurgery Progress Note SERVICE DATE: 12/23/2024 SUBJECTIVE: NAEON. Pain tolerable. Says he is moving right leg better than preop OBJECTIVE: Vitals: Temp (24hrs), Av.8 ?C (98.2 ?F), Min:36.3 ?C (97.3 ?F), Max:37.2 ?C (98.9 ?F) BP 124/71 Pulse 60 Temp 36.3 ?C (97.3 ?F) (Oral) Resp 18 Ht 195.6 cm (6' 5) Wt 93.9 kg (207 lb 0.2 oz) SpO2 92% BMI 24.55 kg/m? O2 Therapy: Nasal Cannula IANDO: Date 12/22/24 07 - 12/23/24 0659 12/23/24 07 - 12/24/24 0659 Shift 2207-3935 5618-8909 7288-0039 24 Hour Total 7206-7075 1301-7533 4485-8541 24 Hour Total INTAKE PO 900 900 PO 900 900 Shift Total 900 900 OUTPUT Urine 625 157 139 9109 300 300 Void (ml) 625 532 712 6919 300 300 Urine Not Saved. 1 x 1 x 1 x 1 x Tubes 95 50 145 35 35 Drain/Tube Output (Drain/Tube 12/20/24 1601 [facility] Hemovac Posterior Neck Drain #1) 95 50 145 35 35 Shift Total 625 050 545 0428 335 335 Weight (kg) 93.9 93.9 93.9 93.9 93.9 93.9 93.9 93.9 Medications: Current Facility-Administered Medications Medication Dose Route Frequency magnesium hydroxide 400 mg/5 mL 30 mL (MOM) 30 mL ORAL BID bisacodyl 10 mg suppository (DULCOLAX) 10 mg RECTAL DAILY lidocaine 4 % 2 Patch (SALONPAS) 2 Patch TRANSDERMAL DAILY AT 9 PM And lidocaine patch - REMOVE OTHER DAILY And lidocaine - VERIFY PATCH OTHER q 8 H gabapentin 300 mg cap(s) (NEURONTIN) 300 mg ORAL q 8 H carvedilol 12.5 mg tab(s) (COREG) 12.5 mg ORAL BID w MEALS polyethylene glycol 3350 17 g packet 17 g ORAL/FEEDING TUBE BID HYDROmorphone 0.4 mg injection (DILAUDID) 0.4 mg INTRAVENOUS q 3 H PRN lisinopril 5 mg tab(s) (ZESTRIL) 5 mg ORAL DAILY senna-docusate 8.6-50 mg 2 tablet (SENNA-S) 2 tablet ORAL/FEEDING TUBE BID ipratropium-albuterol 3 mL nebulizer solution (DUONEB) 3 mL INHALATION q 4 H PRN heparin 5,000 Units injection 5,000 Units SUBCUTANEOUS q 8 H ondansetron (PF) 4 mg injection (ZOFRAN) 4 mg INTRAVENOUS q 6 H PRN oxyCODONE IR 5-10 mg tab(s) (ROXICODONE) 5-10 mg ORAL q 4 H PRN acetaminophen 650 mg tab(s) (TYLENOL) 650 mg ORAL q 6 H sodium chloride 0.9 % (flush) 2-10 mL (BD POSIFLUSH) 2-10 mL INTRAVENOUS DIRECTED PRN And perflutren lipid microspheres 1.1 mg/mL 1.3 mL injection (DEFINITY) 1.3 mL INTRAVENOUS DIRECTED PRN phosphorus 500 mg tab(s) (K PHOS NEUTRAL) 500 mg ORAL/FEEDING TUBE PRN(NO DISPENSE) calcium gluconate iv piggyback 2 g in NaCl (iso-osmotic) 100 mL 2 g INTRAVENOUS PRN(NO DISPENSE) amiodarone 200 mg tab(s) (PACERONE) 200 mg ORAL DAILY rosuvastatin 40 mg tab(s) (CRESTOR) 40 mg ORAL AT BEDTIME NaCl 0.9% iv flush bag 20 mL INTRAVENOUS PRN dextrose 15 gram/32 mL 15 g (TRUEPLUS) 15 g ORAL PRN Or glucagon 1 mg injection 1 mg INTRAMUSCULAR PRN Or dextrose 10% iv bolus 12.5 g INTRAVENOUS PRN insulin lispro injection (rapid acting) (ADMElog) SUBCUTANEOUS w MEALS sodium chloride 0.65 % 2 [place] 2 [place] EACH NOSTRIL PRN guaiFENesin 600 mg ER tab(s) (MUCINEX) 600 mg ORAL q 12 H PRN Labs: Recent Labs 12/23/24 0504 12/23/24 0324 12/22/24 1615 12/22/24 0354 12/22/24 0224 12/21/24 1641 12/21/24 1044 12/21/24 0213 NA -- 133* -- 138 135* 134* 133* 137 K -- -- -- 4.1 -- 4.2 4.4 4.3 CHLOR -- 100 -- 103 101 100 101 102 CO2 -- 24 -- 24 24 22 20* 17* BUN -- 14 -- 18 20 26* 27* 22 CREAT -- 0.54* -- 0.60* 0.58* 0.72* 0.69* 0.73 GLUC -- 125* -- 138* 143* 137* 174* 151* ANION -- 9 -- 11 10 12 12 18* CA -- 8.5 -- 8.6 8.4* 8.6 8.9 9.1 MG -- -- -- -- 1.9 -- -- 1.7 P -- 2.5* -- -- 2.6* -- -- 4.2 WBC 6.48 -- 7.19 -- 7.19 -- -- 11.15* HB 12.3* -- 12.8* -- 12.0* -- -- 13.6 HCT 37.1* -- 38.7* -- 36.0* -- -- 41.6 PLT 118* -- 107* -- 133* -- -- 200 LACT -- -- -- -- -- -- 1.0 -- PH -- -- -- -- -- -- 7.43 -- PCO2 -- -- -- -- -- -- 34* -- PO2 -- -- -- -- -- -- 75* -- HCO3 -- -- -- -- -- -- 22 -- Exam: GENERAL: No distress, Alert NEURO: GCS 15 speech clear, fluent. Right Left Shoulder ABduction (C5/C6) 5/5 5/5 Elbow flexion (C5/C6) 5/5 5/5 Elbow extension (C7/C8) 4+/5 5/5 Wrist extension (C6/C7) 5/5 5/5 Caseworker Intake (C8/T1) 4/5 5/5 Intrinsics (C8/T1) 4-/5 5/5 Hip flexion (L2/3) 5/5 5/5 Knee extension (L3/4) 4+/5 5/5 Knee flexion (L5/S1) 4/5 4/5 EHL (L5) 5/5 5/5 Dorsiflexion (L4) 5/5 5/5 Plantarflexion (S1/S2) 5/5 5/5 HEENT: normocephalic, atraumatic NECK/BACK:Dressing c/d/I Drain 145ml/24hr serosang LUNGS: Unlabored breathing CARDIAC: Regular rate and rhythm as above ABDOMEN: Soft, non-tender, non-distended EXTREMITIES: QUINN, No deformities, No edema SKIN: Skin color, texture, turgor normal, No rashes or lesions ASSESSMENT AND PLAN: Active Hospital Problems Diagnosis Date Noted Cervical stenosis of spinal canal 12/19/2024 Primary hypertension 12/22/2024 Cervical myel (more content not included)...[facility] 12-22-2024 NoteHNO ID: [id number] Author: WILFREDO BENITEZ APRN.PROJECT SYSTEMS ENGINEER Service: Neurology ICU Author Type: Nurse Practitioner Type: Progress Notes Filed: 12/22/2024 10:57 Note Text: SERVICE DATE: 12/22/2024 SERVICE TIME: 09:15 AM NEURO ICU PROGRESS NOTE DATE OF ADMISSION: 12/19/2024 Subjective Hospital Course: 12/20: s/p PCDF> admitted to NICU for MAP goals 12/21: exam slightly better> required low dose Levophed> wean with Midodrine 12/22: NAEON. Pt with persistent neck pain. Pain medications adjusted. Stable for RNF. Objective BP 135/80 Pulse 66 Temp 36.8 ?C (98.3 ?F) (Axillary) Resp 14 Ht 195.6 cm (6' 5) Wt 93.9 kg (207 lb 0.2 oz) SpO2 96% BMI 24.55 kg/m? Weight change: Neuro: GCS: Eyes: 4. Spontaneous Verbal: 5: Oriented Motor: 6: Obeys Motor commands Total: 15 Alert and oriented to person, place, month year C-collar inplace Speech clear fluent No facial asym PERRL EOMI VFF MAEx4 5/5 strength Numbness B/L LE and right hand, chronic but improved CV: Paced Pulm: CTAB even unlabored GI/: abd soft NT/ND +BS Skin/Extremities: Edema- No Peripheral pulses- Present all extremities Wounds/Drsgs- Yes Breakdown- No Diagnostic tests reviewed for today's visit: Most recent labs and imaging results. Lines, Drains, and Airways Line Duration Peripheral 12/19/24 [facility] Short Left Forearm 16 Gauge 3 days Arterial Line/Sheath 12/20/24 Right Radial 2 days Peripheral 12/20/24 1345 [facility] Short Left Hand 16 Gauge 1 day Drain Duration Drain/Tube 12/20/24 1601 [facility] Hemovac Posterior Neck Drain #1 1 day ICU Checklist Last Documented/Reviewed time: 12/22/2024 9:15 AM ICU Consent Complete?: No ICU Code Status History assess/Full code by default: No, active code status present A= Assess, Prevent, Manage Pain Pain adequately controlled?: No C= Choice of Sedation and Analgesia RASS at Goal?: Yes B= Both Spontaneous Awakening and Breathing Trials Ventilator: None D= Delirium: Assess, Prevent and Manage ICU Delirium Status: CAM Negative - no action required Sleep adequate?: Yes Restraint Status: None E= Early Mobility/Excercise ICU Mobility: ICU Mobility Goal: Bed rest/turns only, PT/OT consult ordered F= Family Engagement and Empowerment ICU plan of care visit at bedside in last 24 hours: Yes, Provider, RN, Patient/ designee ICU Disposition: ICU Disposition-POC Detail: Yes-Certified Orthotist/Pedorthist notified Prevention: Line Status: Arterial line Arterial Line Status: Able to remove today Fernandez Status: None Pressure Injury Status: None GI/Stress Ulcer Prophylaxis: None - not required Nutrition is at Goal: Yes VTE Prophylaxis: Chemoprophylaxis: Heparin SQ Mechanical Prophylaxis: Knee high SCD PERSONAL INVOLVEMENT IN CARE: Reviewing initiation, responses and adjustments to therapies, coordination of care, and updating family with Staff Physician, Dr. Anderson Alexander. Assessment AND Plan Frank Zimmer is a 64 year old male PMH Vtach s/p pacer, cardiac stent on ASA81 who presented with worsening of myelopathic symptoms. On 12/20 the patient underwent surgical decompression of C6-C7 and is being admitted to the Neuro ICU for MAP augmentation. Active Hospital Problems as of 12/22/2024 Noted - Resolved POA Hospital [place] (ventricular tachycardia) (HCC) 08/22/2022 - Present Yes Current Assessment AND Plan Cont w/ home Amiodarone 200 mg daily Home Coreg/Lisinopril on hold in setting of MAP augmentation Consider resuming when Normotension requested per NSGY recs Ischemic cardiomyopathy 08/23/2022 - Present Yes Current Assessment AND Plan Pacer/ICD Biventricular pacemaker TTE 2021: EF- 30% LV dilation ProBNP 12/20: 1636 Plan: - Pacer interrogation 12/20 * (Principal) Cervical stenosis of spinal canal 12/19/2024 - Present Yes Current Assessment AND Plan 12/20 pt underwent surgical decompression of C6-C7 CT spine 12/19: Severe degenerative disc and osteoarthritic changes leading to very severe degree of central canal stenosis and neural foraminal most severe at C6-7. Correlation with MRI to assess condition of spinal cord is recommended. Plan: - Q4 neuro checks - Pain control: - tylenol - Lidocaine patch - Robaxin x24h then d/c - start GBP 300mg tid - PRN Oxy - pain rated as tolerable per pt on current regimen - PT/OT - Neurosurg c/s - Bowel regimen: Senna-s/Miralax - VTE ppx: SCDs for now> Chemo ppx once drain out per NS - MAP augmentation complete Preop cardiovascular exam 12/19/2024 - Present No Cervical myelopathy (HCC) 12/21/2024 - Present Unknown Primary hypertension 12/22/2024 - Present Yes Current Assessment AND Plan - resume coreg at 12.5mg bid (home dose 25mg) - resume lisinopril 10mg daily (home dose 40mg) Medication (more content not included)...[facility]03-01-2025 NoteHNO ID: [id number] Author: REAGAN MCKEON APRN.ARIADNE Service: Neurosurgery Author Type: Nurse Practitioner Type: Progress Notes Filed: 12/22/2024 09:20 Note Text: Neurosurgery Progress Note SERVICE DATE: 12/22/2024 SUBJECTIVE: Incisional pain more intense last night, felt some pain in arms transiently, now resolved. d/w patient expected postop course and voiced understanding. +Flatus, no BM, may not be eating much OBJECTIVE: Vitals: Temp (24hrs), Av.1 ?C (98.7 ?F), Min:36.9 ?C (98.4 ?F), Max:37.3 ?C (99.1 ?F) BP 119/93 Pulse 72 Temp 37 ?C (98.6 ?F) (Oral) Resp 15 Ht 195.6 cm (6' 5) Wt 93.9 kg (207 lb 0.2 oz) SpO2 95% BMI 24.55 kg/m? O2 Therapy: Nasal Cannula IANDO: Date 12/21/24 0700 - 12/22/24 0659 12/22/24 0700 - 12/23/24 0659 Shift 8177-5097 2317-8691 2206-3152 24 Hour Total 0608-6849 4211-3455 7550-0250 24 Hour Total INTAKE PO 720 908 242 1621 PO 720 757 340 6133 IV 100 520.9 620.9 Volume (mL) 20.9 20.9 Volume (mL) (NaCl 0.9% 500 mL iv bolus) 500 500 Volume (mL) (ceFAZolin iv piggyback 2 g in D5W (iso-osmotic) 100 mL (ANCEF)) 100 100 Shift Total 820 760.9 500 2080.9 OUTPUT Urine 400 351 245 2833 275 275 Void (ml) 0 250 550 800 275 275 Straight cath (ml) 400 550 950 Urine Not Saved. 1 x 1 x Tubes 50 120 55 225 Drain/Tube Output (Drain/Tube 12/20/24 1601 [facility] Hemovac Posterior Neck Drain #1) 50 120 55 225 # of BMs Number of BMs 0 x 0 x Shift Total 450 130 294 0921 275 275 Weight (kg) 93.9 93.9 93.9 93.9 93.9 93.9 93.9 93.9 Medications: Current Facility-Administered Medications Medication Dose Route Frequency fentaNYL 50 mcg/mL 50 mcg injection (SUBLIMAZE) 50 mcg INTRAVENOUS q 2 H PRN lidocaine 4 % 2 Patch (SALONPAS) 2 Patch TRANSDERMAL DAILY AT 9 PM And lidocaine patch - REMOVE OTHER DAILY senna-docusate 8.6-50 mg 2 tablet (SENNA-S) 2 tablet ORAL/FEEDING TUBE BID polyethylene glycol 3350 17 g packet 17 g ORAL/FEEDING TUBE DAILY ipratropium-albuterol 3 mL nebulizer solution (DUONEB) 3 mL INHALATION q 4 H PRN heparin 5,000 Units injection 5,000 Units SUBCUTANEOUS q 8 H cetirizine 10 mg tab(s) (ZYRTEC) 10 mg ORAL DAILY ondansetron (PF) 4 mg injection (ZOFRAN) 4 mg INTRAVENOUS q 6 H PRN oxyCODONE IR 5-10 mg tab(s) (ROXICODONE) 5-10 mg ORAL q 4 H PRN acetaminophen 650 mg tab(s) (TYLENOL) 650 mg ORAL q 6 H methocarbamol 750 mg tab(s) (ROBAXIN) 750 mg ORAL TID sodium chloride 0.9 % (flush) 2-10 mL (BD POSIFLUSH) 2-10 mL INTRAVENOUS DIRECTED PRN And perflutren lipid microspheres 1.1 mg/mL 1.3 mL injection (DEFINITY) 1.3 mL INTRAVENOUS DIRECTED PRN potassium chloride ER 20-40 mEq tab(s) (KLOR-CON) 20-40 mEq ORAL/FEEDING TUBE PRN Or potassium chloride iv piggyback 20 mEq/100 mL 20 mEq INTRAVENOUS PRN magnesium sulfate iv piggyback in sterile water 2 g 50 mL 2 g INTRAVENOUS PRN phosphorus 500 mg tab(s) (K PHOS NEUTRAL) 500 mg ORAL/FEEDING TUBE PRN(NO DISPENSE) calcium gluconate iv piggyback 2 g in NaCl (iso-osmotic) 100 mL 2 g INTRAVENOUS PRN(NO DISPENSE) NORepinephrine 16 mg in D5W 250 mL (LEVOPHED) 0.6-15 mcg/min INTRAVENOUS CONTINUOUS phentolamine injection 5 mg (REGITINE) Extravasation Antidote 5 mg SUBCUTANEOUS PRN amiodarone 200 mg tab(s) (PACERONE) 200 mg ORAL DAILY rosuvastatin 40 mg tab(s) (CRESTOR) 40 mg ORAL AT BEDTIME NaCl 0.9% iv flush bag 20 mL INTRAVENOUS PRN dextrose 15 gram/32 mL 15 g (TRUEPLUS) 15 g ORAL PRN Or glucagon 1 mg injection 1 mg INTRAMUSCULAR PRN Or dextrose 10% iv bolus 12.5 g INTRAVENOUS PRN insulin lispro injection (rapid acting) (ADMElog) SUBCUTANEOUS w MEALS sodium chloride 0.65 % 2 [place] 2 [place] EACH NOSTRIL PRN guaiFENesin 600 mg ER tab(s) (MUCINEX) 600 mg ORAL q 12 H PRN Labs: Recent Labs 12/22/24 0354 12/22/24 0224 12/21/24 1641 12/21/24 1044 12/21/24 0213 NA 138 135* 134* 133* 137 K 4.1 -- 4.2 4.4 4.3 CHLOR 103 101 100 101 102 CO2 24 24 22 20* 17* BUN 18 20 26* 27* 22 CREAT 0.60* 0.58* 0.72* 0.69* 0.73 GLUC 138* 143* 137* 174* 151* ANION 11 10 12 12 18* CA 8.6 8.4* 8.6 8.9 9.1 MG -- 1.9 -- -- 1.7 P -- 2.6* -- -- 4.2 WBC -- 7.19 -- -- 11.15* HB -- 12.0* -- -- 13.6 HCT -- 36.0* -- -- 41.6 PLT -- 133* -- -- 200 LACT -- -- -- 1.0 -- PH -- -- -- 7.43 -- PCO2 -- -- -- 34* -- PO2 -- -- -- 75* -- HCO3 -- -- -- 22 -- Exam: GENERAL: No distress, Alert NEURO: GCS 15 speech clear, fluent. Right Left Shoulder ABduction (C5/C6) 5/5 5/5 Elbow flexion (C5/C6) 5/5 5/5 Elbow extension (C7/C8) 4+/5 5/5 Wrist extension (C6/C7) 5/5 5/5 Caseworker Intake (C8/T1) 4/5 5/5 Intrinsics (C8/T1) 4-/5 5/5 Hip flexion (L2/3) 5/5 5/5 Knee extension (L3/4) 4+/5 5/5 Knee flexion (L5/S1) 4/5 4/5 EHL (L5) 5/5 5/5 Dorsiflexion (L4) 5/5 5/5 Plantarflexion (S1/S2) 5/5 5/5 HEENT: normocephalic, atraumatic NECK/BACK:Dressing c/d/I Drain 225ml/24hr C collar in place LUNGS: Unlabored breathing CARDIAC: Regular rate (more content not included)...[facility] 12-21-2024 NoteHNO ID: [id number] Author: PANCHO SON RN Service: Care Management Author Type: Registered Nurse Type: Care Mgt Initial Assessment Filed: 12/21/2024 15:51 Note Text: CARE MANAGEMENT: ASSESSMENT AND DISCHARGE PLAN SERVICE DATE: December 21, 2024 SERVICE TIME: 3:48 PM PCP: No primary care provider on file. Primary Contact: Extended Emergency Contact Information Primary Emergency Contact: El Zimmera Mobile Relation: Spouse Admission Status: Inpatient Insurance Provider: MEDICARE A AND B Discharge Planning requested by: Per Department Practice Potential Transition Plans To Be Determined Advance Directives Current Advance Directive: None Profile Saw Setup Operator Attempted to Assist with AD Completion: No Unable to Assist Due To:: Other: See Comment (off floor) Current Living Arrangements and Support Lives with: Spouse/significant other Type of Residence: Private Residence (House) Support: Family members, Spouse/significant other How do you manage to accomplish the following: Needs Assistance: Ambulation, Bathe/Shower, Dress, Going to the bathroom Dependent: Transportation to appointments/community, Meals/Meal Prep, Medication Management Current Services/Equipment Current Post-Acute Service(s): DME Current DME Type: Walker, Shower seat, Cane, Wheelchair-manual, Grab bars Discharge Planning Patient Goal(s): Independent living, Be able to go home, General wellness [place] of Choice Explained: [place] Given: Yes Level of Care Discussed: Inpatient Rehab Facility Are you interested in bedside delivery of your medications? No Discharge Planning Participant(s): Spouse/significant other Patient/Family Comments: Caregiver Assessment: Caregiver is ready, willing and able to meet the patient's needs as recommended by the inter-professional team: Yes Name of Caregiver: Melanie- Transport at Discharge: Transportation Arrangements: Ambulance Needs Prior to Discharge: Needs Prior to Discharge: To Be Determined, Accepting Facility, Insurance Authorization, Discharge Transportation Post-Acute Discharge Plan: Patient off floor. Spoke to Melanie. Patient lives with spouse, needs assist with ADLS, +DME. Therapy recommends [place]. Patient is from [facility], and states the closest to them would be [facility], states [place] [facility] too far. [facility]. Await acceptance, will need insurance auth, cot transport. CM to continue to follow. SIGNATURE: Pancho Son RN PATIENT NAME: Frank Zimmer DATE: December 21, 2024 TIME: 3:48 [facility]02-28-2025 NoteICD Off/On zuly procedure interrogation. Patient ID verified x 2. Armband on. Order reviewed. Patient seen in pre-op prior to procedure. Pocket/incision without signs or symptoms of infection. No VT/VF events. Patient on monitor with alarms on. ICD tachyarrhythmia therapies (defibrillation therapies) deactivated and pacing set to DOO [address] Jones. Galina Aparicio RN Patient seen post procedure in PACU post cervical surgery. Patient ID verified x 2. Armband on. ICD tachyarrhythmia therapies reactivated to preprocedure settings. Lead impedances and sensing values stable. Returned back to initial parameters in PACU. RV auto capture test performed/ recommended/ turned back on. Hollis HANDY 12-21-23: Further adjustments made w/ SJM Rep present to return parameters to original parameters. ( DeFT Response Settings) Hollis HANDY NOTE TO PROVIDERS: CARD Flowsheets contain detailed device programming and testing data. Paceart/Interrogation PDF can be found under CARDIAC DATA AND REPORT, Scanned Documents section.[id number] NoteICD Off/On zuly procedure interrogation. Patient ID verified x 2. Armband on. Order reviewed. Patient seen in pre-op prior to procedure. Pocket/incision without signs or symptoms of infection. No VT/VF events. Patient on monitor with alarms on. ICD tachyarrhythmia therapies (defibrillation therapies) deactivated and pacing set to DOO [address] Jones. Galina Aparicio, ROZINA Patient seen post procedure in PACU post cervical surgery. Patient ID verified x 2. Armband on. ICD tachyarrhythmia therapies reactivated to preprocedure settings. Lead impedances and sensing values stable. Returned back to initial parameters in PACU. RV auto capture test performed/ recommended/ turned back on. Hollis HANDY 12-21-23: Further adjustments made w/ SJM Rep present to return parameters to original parameters. ( DeFT Response Settings) Hollis HANDY NOTE TO PROVIDERS: CARD Flowsheets contain detailed device programming and testing data. Paceart/Interrogation PDF can be found under CARDIAC DATA AND REPORT, Scanned Documents section.[id number] NoteHNO ID: [id number] Author: ?, ?, ? Service: ? Author Type: Cardiac Cath Tech Type: Plan of Care Filed: 12/21/2024 12:38 Note Text: PHARMACY MEDICATION REVIEW Patient Name: Frank Zimmer : 1960 The following medications were updated within the TRANSIT CLERK medication list: Medications ADDED to TRANSIT CLERK medication list traMADol (ULTRAM) 50 mg tablet OTHER, Patient Yes Yes amiodarone (PACERONE) 200 mg tablet OTHER Yes Yes Medications CHANGED on TRANSIT CLERK medication list carvedilol (COREG) 25 mg tablet OTHER Yes Yes Medications REMOVED from TRANSIT CLERK medication list amiodarone 400 mg tablet Adjust Sig - Block E-Cancel Additional comments: I was able to talk with pt. about his home medications. He states he takes the 9 medications recorded below on the TRANSIT CLERK list. Verified medication information with e-scripts/dispense report and verified with pt. I have added 2 medications to the TRANSIT CLERK list- tramadol (RX filled on 12/10/24 for 28ds and pt. states he takes TID) and amiodarone 200 mg tab (RX filled on 11/02/24 for 90ds and pt. states he takes this medication) I have noted a change to 1 medication- coreg (Last RX found was on 08/11/2024 for 90ds. Pt. states he is taking BID). I have removed 1 medication from the TRANSIT CLERK list- amiodarone 400 mg tab. Primary pharmacy is [facility] per pt. Medication history completed by historian. No nursing follow up needed. The below information represents the best possible medication history: Yes Medication history completed by: Cardiac Cath Tech: Viry Kilpatrick (Tube Depatcher) Source of history: Patient: Reliability of source: Appears reliable, but Coreg RX was not found since 07/2024: Medication name, Medication dose, Medication route, and Medication frequency and Pharmacy records: [facility], [facility] and [facility]. Medication nonadherence identified: No barriers noted Reconciliation completed: No, pharmacist not yet reviewed Patient interested in Bedside Delivery Services or using OP Pharmacy at discharge? No Preferred outpatient pharmacy: [id number] [place] [address] [address] [facility] [phone] Allergies: Bees Comment:ANAPHALACTIC REACTION Morphine Vomiting Prior to Admission Medications Prescriptions Last Dose Informant Patient Reported? Taking? JARDIANCE 25 mg tablet OTHER Yes Yes Sig: Take 25 mg by mouth daily with breakfast. amiodarone (PACERONE) 200 mg tablet OTHER Yes Yes Sig: Take 1 tablet by mouth every afternoon. aspirin, enteric coated (ASPIRIN, ENTERIC COATED) 81 [...] TABLET BY MOUTH EVERY DAY nightly traMADol (ULTRAM) 50 mg tablet OTHER, Patient Yes Yes Sig: Take 50 mg by mouth three times a day. Facility-Administered Medications: None Viry Kilpatrick (STEERads) phone [phone] 12/21/2024[facility]02-28-2025 NoteHNO ID: [id number] Author: REAGAN MCKEON APRN.PROJECT SYSTEMS ENGINEER Service: Neurosurgery Author Type: Nurse Practitioner Type: Progress Notes Filed: 12/21/2024 11:55 Note Text: Neurosurgery Progress Note SERVICE DATE: 12/21/2024 SUBJECTIVE: NAEON. Reports significant improvement in symptoms. OBJECTIVE: Vitals: Temp (24hrs), Av.7 ?C (98.1 ?F), Min:36 ?C (96.8 ?F), Max:37 ?C (98.6 ?F) BP 149/68 Pulse 69 Temp 36.7 ?C (98.1 ?F) (Oral) Resp 21 Ht 195.6 cm (6' 5) Wt 93.9 kg (207 lb 0.2 oz) SpO2 95% BMI 24.55 kg/m? O2 Therapy: Nasal Cannula IANDO: Date 12/20/24699 - 12/21/24 0612/21/24 07 - 12/22/24 0659 Shift 7508-7148 2588-3182 8925-3398 24 Hour Total 3400-3904 3559-0105 3900-6610 24 Hour Total INTAKE PO 450 500 950 PO 450 500 950 IV 1750 1750 Volume (mL) (ceFAZolin iv piggyback 1 g in D5W (iso-osmotic) 50 mL (ANCEF)) 50 50 Volume (mL) (lactated ringers iv infusion) 900 900 Volume (mL) (NaCl 0.9% iv infusion) 800 800 Shift Total 2200 500 2700 OUTPUT Urine 350 146 864 9061 Void (ml) 150 150 OR Urine Output 200 200 Output ( Indwelling Urinary Catheter 12/20/24 1340 [facility] Coude 18 Fr) 979 050 9324 Tubes 200 50 250 Drain/Tube Output (Drain/Tube 12/20/24 1601 [facility] Hemovac Posterior Neck Drain #1) 200 50 250 # of BMs Number of BMs 0 x 0 x 0 x Blood 250 250 Estimated Blood loss 250 250 Shift Total 350 3394 777 4841 Weight (kg) 94.3 93.9 93.9 93.9 93.9 93.9 93.9 93.9 Medications: Current Facility-Administered Medications Medication Dose Route Frequency senna-docusate 8.6-50 mg 2 tablet (SENNA-S) 2 tablet ORAL/FEEDING TUBE BID cetirizine 10 mg tab(s) (ZYRTEC) 10 mg ORAL DAILY ceFAZolin iv piggyback 1 g in D5W (iso-osmotic) 50 mL (ANCEF) 1 g INTRAVENOUS q 8 HR HYDROmorphone 0.4 mg injection (DILAUDID) 0.4 mg INTRAVENOUS q 3 H PRN ondansetron (PF) 4 mg injection (ZOFRAN) 4 mg INTRAVENOUS q 6 H PRN oxyCODONE IR 5-10 mg tab(s) (ROXICODONE) 5-10 mg ORAL q 4 H PRN acetaminophen 650 mg tab(s) (TYLENOL) 650 mg ORAL q 6 H methocarbamol 750 mg tab(s) (ROBAXIN) 750 mg ORAL TID lidocaine 4 % 1 Patch (SALONPAS) 1 Patch TRANSDERMAL DAILY AT 9 PM And lidocaine patch - REMOVE OTHER DAILY And lidocaine - VERIFY PATCH OTHER q 8 H sodium chloride 0.9 % (flush) 2-10 mL (BD POSIFLUSH) 2-10 mL INTRAVENOUS DIRECTED PRN And perflutren lipid microspheres 1.1 mg/mL 1.3 mL injection (DEFINITY) 1.3 mL INTRAVENOUS DIRECTED PRN potassium chloride ER 20-40 mEq tab(s) (KLOR-CON) 20-40 mEq ORAL/FEEDING TUBE PRN Or potassium chloride iv piggyback 20 mEq/100 mL 20 mEq INTRAVENOUS PRN magnesium sulfate iv piggyback in sterile water 2 g 50 mL 2 g INTRAVENOUS PRN phosphorus 500 mg tab(s) (K PHOS NEUTRAL) 500 mg ORAL/FEEDING TUBE PRN(NO DISPENSE) calcium gluconate iv piggyback 2 g in NaCl (iso-osmotic) 100 mL 2 g INTRAVENOUS PRN(NO DISPENSE) NORepinephrine 16 mg in D5W 250 mL (LEVOPHED) 0.6-15 mcg/min INTRAVENOUS CONTINUOUS phentolamine injection 5 mg (REGITINE) Extravasation Antidote 5 mg SUBCUTANEOUS PRN midodrine 5 mg tab(s) (PROAMITINE) 5 mg ORAL q 8 H traMADol 50 mg tab(s) (ULTRAM) 50 mg ORAL q 8 H PRN amiodarone 200 mg tab(s) (PACERONE) 200 mg ORAL DAILY rosuvastatin 40 mg tab(s) (CRESTOR) 40 mg ORAL AT BEDTIME NaCl 0.9% iv flush bag 20 mL INTRAVENOUS PRN dextrose 15 gram/32 mL 15 g (TRUEPLUS) 15 g ORAL PRN Or glucagon 1 mg injection 1 mg INTRAMUSCULAR PRN Or dextrose 10% iv bolus 12.5 g INTRAVENOUS PRN insulin lispro injection (rapid acting) (ADMElog) SUBCUTANEOUS w MEALS sodium chloride 0.65 % 2 [place] 2 [place] EACH NOSTRIL PRN guaiFENesin 600 mg ER tab(s) (MUCINEX) 600 mg ORAL q 12 H PRN Labs: Recent Labs 12/21/24 0213 12/20/24 1846 12/18/24 1452 12/18/24 1245 NA 137 -- -- 139 K 4.3 -- -- 4.5 CHLOR 102 -- -- 105 CO2 17* -- -- 25 BUN 22 -- -- 15 CREAT 0.73 -- -- 0.65* GLUC 151* -- -- 96 ANION 18* -- -- 9 CA 9.1 -- -- 9.4 MG 1.7 1.8 -- -- P 4.2 4.0 -- -- WBC 11.15* 10.51 < > -- HB 13.6 14.2 < > -- HCT 41.6 42.5 < > -- PLT 200 164 < > -- < > = values in this interval not displayed. Exam: GENERAL: No distress, Alert NEURO: oriented x 3, follows commands Upper Extremities Right Left Deltoid (C5) 5 5 Biceps (C6) 5 5 Triceps (C7) 5 5 Caseworker Intake (C8) 5 5 Intrinsics (T1) 5 5 Lower Extremities Right Left Psoas (L2) 3 4 Quadriceps (L3) 4 5 Dorsiflexion (L4) 5 5 EHL (L5) 5 5 Plantarflexion (S1) 5 5 Sensation: intact to light touch in UE/LE/trunk HEENT: normocephalic, atraumatic LUNGS: Unlabored breathing CARDIAC: Regular rate and rhythm as above ABDOMEN: Soft, non-tender, non-distended EXTREMITIES: QUINN, No deformities, No edema SKIN: Skin color, texture, turgor normal ASSESSMENT AND PLAN: Active Hospital Problems Diagnosis Date Noted Cervical stenosis of spinal canal 12/19/2024 Preop cardiovascular exam 12/19/2024 Ischemic c (more content not included)...[facility]02-28-2025 NoteHNO ID: [id number] Author: JESUS BRANHAM MD Service: Neurology ICU Author Type: Nurse Practitioner Type: Progress Notes Filed: 12/21/2024 12:54 Note Text: Attestation signed by Jesus Branham MD at 12/21/2024 12:54 PM NEURO ICU ATTENDING ATTESTATION Primary team: NSGY I have reviewed the progress note obtained and documented by the advanced practice provider. I have personally seen and examined the patient and discussed their management with the ALEXANDRO. I reviewed the ALEXANDRO note and agree with the documented findings and plan of care. I have repeated the examination and confirm the findings except as documented. PATIENT PROBLEMS I REVIEWED, REVISED AND/OR INITIATED: The care of this patient required my full attention and direct personal management of: Principal Problem: Cervical stenosis of spinal canal Active Problems: VT (ventricular tachycardia) (HCC) Ischemic cardiomyopathy Preop cardiovascular exam Cervical myelopathy (HCC) Resolved Problems: * No resolved hospital problems. * ==== STAFF COORDINATION OF CRITICAL CARE [facility] Staff Physician note of personal involvement in Care The patient is critically ill because of imminent risk of SCI and continues to require intensive support and observation. This patient has a high probability of sudden, clinically significant deterioration, which requires the highest level of physician preparedness to intervene urgently. I managed/supervized life or organ supporting interventions that required frequent physician assessment. I devoted my full attention to the direct care of this patient for the amount of time indicated below. Time I spent with family or surrogate(s) is included only if the patient was incapable of providing the necessary information or participating in medical decision making. Time devoted to teaching or to any procedures I billed separately is not included. PLAN, IMPRESSION AND ACTION(S) TAKEN NEURO #C spine C6-7 compression, Cw2-T1 PCDF MAP>85, levo PRN Hemovac to suction Exam stable Pain control/regimen CV #HFrEF EF 30% #VT h/o, ICD, PM - home amio - holding lisinopril, coreg - Echo pending PULM 3L NC IS ABG CXR H/o smoking RENAL Fernandez removed BMP repeat GI Senna, Miralax Diet ENDO SSI DM HEME Start DVT ppx tonight ID Leukocytosis - reactive Era, PIV Please see the documented [id number] plan in the updated problem list. Plan of care discussed with: Provider, RN, Patient. Jesus Alexander MD Staff, Neurointensive Care [facility] [place] Date of Service: 12/21/2024 Time of Service: 12:53 PM This is an electronically created document. If printed, please do not remove from the chart or modify printed copy. SERVICE DATE: 12/21/2024 SERVICE TIME: 0450 AM NEURO ICU PROGRESS NOTE DATE OF ADMISSION: 12/19/2024 Subjective Hospital Course: 12/20: s/p PCDF> admitted to NICU for MAP goals 12/21: exam slightly better> required low dose Levophed> wean with Midodrine Objective BP 149/68 Pulse 69 Temp 36.7 ?C (98.1 ?F) (Oral) Resp 21 Ht 195.6 cm (6' 5) Wt 93.9 kg (207 lb 0.2 oz) SpO2 95% BMI 24.55 kg/m? Weight change: -0.448 kg (-15.8 oz) Neuro: GCS: Eyes: 4. Spontaneous Verbal: 5: Oriented Motor: 6: Obeys Motor commands Total: 15 CRANIAL NERVES: Normal mood and affect. CNII-XII grossly intact. L UE/LE 5/5 R UE 4+/5, R hand grasp 4/5 R LE straight leg raise 4/5, hip flexion 4+/5, foot flex/ext 5/5 R UE sensation intact today compared to yesterday R LE still with subjective numbness but aware of touch CV: HR paced Pulm: even and unlabored on NC GI/: soft; NT Skin/Extremities: Edema- No Peripheral pulses- Present all extremities Wounds/Drsgs- Yes ASPEN collar intact dressing C/D Breakdown- No Diagnostic tests reviewed for today's visit: Most recent labs and imaging results. Lines, Drains, and Airways Line Duration Peripheral 12/19/24 [facility] Short Left Forearm 16 Gauge 2 days Arterial Line/Sheath 12/20/24 Right Radial 1 day Peripheral 12/20/24 1345 [facility] Short Left Hand 16 Gauge <1 day Drain Duration Drain/Tube 12/20/24 1601 [facility] Hemovac Posterior Neck Drain #1 <1 day Indwelling Urinary Catheter 12/20/24 1340 [facility] Coude 18 Fr <1 day ICU Checklist Last Documented/Reviewed time: 12/21/2024 5:37 AM ICU Consent Complete?: No ICU Code Status History assess/Full code by default: No, active code status present A= Assess, Prevent, Manage Pain Pain adequately controlled (more content not included)...[facility]02-27-2025 NoteHNO ID: [id number] Author: THAI CUEVA PA-C Service: Neurosurgery Author Type: Physician Locket Maker Type: Plan of Care Filed: 12/20/2024 23:40 Note Text: NSGY Post-op Note Patient seen and examined post-operatively. Reports significant improvement in paresthesias and strength. Very pleased with results. Pain is well controlled with current regimen Exam: Upper Extremities Right Left Deltoid (C5) 5 5 Biceps (C6) 5 5 Triceps (C7) 5 5 Caseworker Intake (C8) 5 5 Intrinsics (T1) 4 5 Lower Extremities Right Left Psoas (L2) 4 5 Quadriceps (L3) 4 5 Dorsiflexion (L4) 5 5 EHL (L5) 5 5 Plantarflexion (S1) 5 5 Sensation: intact to light touch in UE/LE/trunk POD 0 C2-T1 PCDF. - neuro as above - continue hemovac drain - MAP goal >85 - maribelke c/s for brandy Zheng - pain control - bowel regimen - encourage IS - diet- heart healthy - dvt ppx- SCDs - PT/OT Thai Cueva PA-C [phone] NoteHNO ID: [id number] Author: MT DUQUE RN Service: Electrophysiology Author Type: Registered Nurse Type: Progress Notes Filed: 12/20/2024 18:07 Note Text: Stable ICD function. ICD returned to original parameters. Full report will be in Epic tomorrow. FengJanay [facility]02-27-2025 Progress note* Result Encounter Note - Gilbert Ortiz MD - 12/20/2024 3:23 PM EST The patient is currently admitted to the hospital, and is being managed by an inpatient team. [facility] Work Phone: [phone] Miscellaneous Notes* Result Encounter Note - Gilbert Ortiz MD - 12/20/2024 3:23 PM EST The patient is currently admitted to the hospital, and is being managed by an inpatient team. [facility]25 NoteHNO ID: [id number] Author: KEON SOLARES APRN.HANDSTITCHING MACHINE ARMHOLE FELLER Service: Anesthesiology Author Type: Nurse A P Manager Type: Anesthesia Procedure Notes Filed: 12/20/2024 13:47 Note Text: ANESTHESIOLOGY PROCEDURE NOTE Airway General Information Procedure Start Time/Medication Administration: 12/20/2024 1:40 PM Procedure End Time: 12/20/2024 1:40 PM Patient location during procedure: OR Timeout Performed Pre-procedure: timeout performed Consent Obtained: Yes Patient identity confirmed: arm band and patient Staffing HANDSTITCHING MACHINE ARMHOLE FELLER: Keon Solares APRN.HANDSTITCHING MACHINE ARMHOLE FELLER Performed by: HANDSTITCHING MACHINE ARMHOLE FELLER Indications and Patient Condition Indications for airway management: anesthesia Preoxygenated: yes anesthesia circuit Patient position: sniffing Method: sleep Difficult Mask: No Final Airway Details Final airway type: endotracheal airway Final Endotracheal Airway: ETT Cuffed: yes Successful intubation technique: video laryngoscopy Devices used: Cox Endotracheal tube insertion site: oral Blade size: #4 ETT size (mm): 8.0 Measured from: lips Measurement (cm): 24 Placement verified by: chest auscultation and capnometry Cormack-Lehane Classification: grade I - full view of glottis Number of attempts at approach: 1 Airway not difficult SIGNATURE: Keon Solares APRN.HANDSTITCHING MACHINE ARMHOLE FELLER PATIENT NAME: Frank Zimmer DATE: December 20, 2024 TIME: 1:46 PM CSN: [id number] NoteHNO ID: [id number] Author: GALINA APARICIO RN Service: Electrophysiology Author Type: Registered Nurse Type: Progress Notes Filed: 12/20/2024 13:36 Note Text: ICD therapy programmed OFF and pacing set to DOO 80 bpm. Please call [phone] for reprogramming. If after 5pm, please page SJM rep at [phone].[facility]02-27-2025 NoteHNO ID: [id number] Author: PONCE MACHADO MD Service: Orthopaedic Surgery Author Type: Physician Type: Plan of Care Filed: 12/20/2024 12:55 Note Text: Spine plan of care Patient was seen and examined in preoperative holding area. I reviewed the patient's imaging. I met the family and patient per request of Dr. Mcdermott to help expedite patient's care. Patient has progressive spondylotic myelopathy. 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 Upper extremities: Sensation: Intact to light touch Upper Extremity Strength Exam Right Left Deltoid 5 5 Biceps 5 5 Triceps 5 5 Wrist Extension 4 5 Interossei 3 5 Caseworker Intake 3 5 Lower extremities: Sensation: Intact to light touch Lower Extremity Strength Exam Right Left Psoas 4 5 Quadriceps 3 5 DF 4 5 EHL 4 5 PF 4 5 Lower extremities: Stable examination. No swelling. No calf tenderness. Palpable DP/PT pulses in BLE + clonus, + Carter's Atrophy of right hand, atrophy of right quadriceps I discussed operative and nonoperative care length with the patient. I discussed C2-T2 posterior spinal instrumentation fusion with decompressive laminectomies addition or subtraction of levels as indicated. I discussed the natural history of cervical myelopathy. I discussed the risks and benefits of nonoperative and nonoperative care at length. Operative risks were discussed as outlined below. After careful consideration the patient and family chose to proceed with surgical intervention. Written informed consent was obtained by myself. Will proceed with OR today. Risks of surgery were discussed in detail with the patient. Risks of surgery discussed include but are not limited to, the risk of DVT, PE, stroke, and/or . Cardiovascular and pulmonary risk, as related to the patient's preoperative clearance and assessment by the perioperative team as well as anesthesia. The risk of neurological injury was discussed in great detail, including discussion of a spectrum of partial dysfunction through complete dysfunction. The risk of nerve root injury was discussed that may result in weakness, paralysis, sensory loss, and/or intractable pain and supplied nerve root that might either be transient and/or permanent in nature. The risk of compressive epidural hematoma and/or compressive epidural abscess was discussed with the patient that may or may not result in transient and/or permanent bowel and bladder dysfunction and/or transient and/or permanent lower extremity dysfunction such as weakness, paralysis, sensory loss, and/or intractable pain. The risk of durotomy, and potential complications of spinal headache, and/or persistent leakage, resulting in the need for further surgery, and/or drain placement was discussed. The risk of complications related to fusion were discussed in detail. The risk of pseudoarthrosis was discussed. The risk of hardware failure including hardware pullout, clifford breakage, screw breakage was discussed. The risk of screw loosening was discussed. The risk of need for further surgery for hardware failure, pseudoarthrosis was discussed. The risk of screw misplacement resulting in radiculopathy or neurological injury was discussed. The risk of need for further surgery to alter trajectory of hardware was discussed. The risk of needing to extend the fusion cephalad and/or caudad and the reasoning behind this was discussed. Adjacent segment breakdown that may or may not be symptomatic was discussed. The risk of instability status post surgery was discussed, the risk of superficial and deep infection was discussed. No guarantees were offered nor implied regarding final outcome status post surgery or presence or absence of complication perioperatively. The risk of no improvement in symptoms despite technically adequate decompression of the compressed structures was discussed in extreme detail. The risk of need for further surgery for any reason was discussed. After a thorough discussion, the patient had many appropriate questions, all questions were answered to the patient's stated satisfaction. The patient voiced excellent understanding of both the reasoning for offering surgery, the potential complications regarding this particular surgery, and has elected to proceed. Ponce Machado [facility]02-27-2025 NoteHNO ID: [id number] Author: PORFIRIO PAVON DO Service: Hospital Medicine Author Type: Physician Type: Progress Notes Filed: 12/20/2024 11:12 Note Text: DEPARTMENT OF HOSPITAL MEDICINE PROGRESS NOTE SERVICE DATE: 12/20/2024 SERVICE TIME: 11:06 AM Hospital Medicine/Primary Attending: Porfirio Pavon DO NIGHT AND WEEKEND COVERAGE: After 7pm please page [phone] SUBJECTIVE: Patient seen examined at bedside. No new complaints or concerns reported, no events reported overnight. Has had some increased coughing that he reports over the past 2 days with some mucus production. OBJECTIVE: PHYSICAL EXAM: BP 147/79 Pulse 73 Temp (Src) 98.3 (Oral) Resp 18 Ht 6' 5 (1.96m) Wt 208 lb (94.3kg) SpO2 92% BMI 24.66 kg/(m2). O2 Therapy: Room Air GENERAL: Alert, no distress, cooperative SKIN: Skin color, texture, turgor normal. No rashes or lesions. HEAD/SINUSES: No significant findings EYES: PERRLA, EOMI EARS: External ears normal, canals clear NOSE: Nares normal. Septum midline. OROPHARYNX: Lips, mucosa, and tongue normal. Teeth and gums normal. Oropharynx normal. NECK: No jugulovenous distention BACK: Back symmetric LUNGS: Lungs clear to auscultation, Good diaphragmatic excursion, cough CARDIAC: Normal S1 and S2; no rubs, murmurs, or gallops ABDOMEN: Abdomen soft, non-tender, BS normal, No masses or organomegaly EXTREMITIES: Nontender lower extremity, no edema NEURO: Follows commands, moves all extremities with decreased strength in right lower extremity with straight leg raise, altered sensation compared to left in right lower and upper extremity worse lower extremity, otherwise conversant, cranial nerves II through XII intact MEDICATIONS: Current Facility-Administered Medications Medication Dose Route Frequency acetaminophen 650 mg tab(s) (TYLENOL) 650 mg ORAL q 6 H PRN traMADol 50 mg tab(s) (ULTRAM) 50 mg ORAL q 8 H PRN amiodarone 200 mg tab(s) (PACERONE) 200 mg ORAL DAILY lisinopril 40 mg tab(s) (ZESTRIL) 40 mg ORAL DAILY carvedilol 25 mg tab(s) (COREG) 25 mg ORAL BID w MEALS rosuvastatin 40 mg tab(s) (CRESTOR) 40 mg ORAL AT BEDTIME NaCl 0.9% iv flush bag 20 mL INTRAVENOUS PRN dextrose 15 gram/32 mL 15 g (TRUEPLUS) 15 g ORAL PRN Or glucagon 1 mg injection 1 mg INTRAMUSCULAR PRN Or dextrose 10% iv bolus 12.5 g INTRAVENOUS PRN insulin lispro injection (rapid acting) (ADMElog) SUBCUTANEOUS w MEALS sodium chloride 0.65 % 2 [place] 2 [place] EACH NOSTRIL PRN guaiFENesin 600 mg ER tab(s) (MUCINEX) 600 mg ORAL q 12 H PRN DATA: Diagnostic tests reviewed for today's visit: CBC: No results for input(s): WBC, RBC, HB, HCT, PLT, MCV, MCH, MPV, RDW in the last 24 hours. Coags: No results for input(s): PT, INR, APTT in the last 24 hours. BMP: No results for input(s): NA, K, CHLOR, CO2, BUN, CREAT, GLUC in the last 24 hours. CMP: No results for input(s): NA, K, CHLOR, CO2, BUN, CREAT, GLUC, TPROT, CA, MG, ALBUMIN, TBILI, ALKPHOS, ALT, AST, ANION in the last 24 hours. Cardiac Enzymes: No results for input(s): CK, MB, CKMB, TROPT in the last 24 hours. Liver Function, Amylase, Lipase: No results for input(s): TPROT, ALB, ALT, AST, ALKPHOS, TBILI, AMYLASE, LIPASE, LACTATE in the last 24 hours. MG/PHOS: No results for input(s): MG, P in the last 24 hours. Renal Panel: No results for input(s): ALBUMIN, CREAT, BUN, GLUC, CA, P, CHLOR, K, CO2, NA in the last 24 hours. Heme: No results for input(s): RETICP, ABSRETIC, LD, AIDA, FE, TIBC,TRANSFERSAT in the last 24 hours. No results found for: UALBCR Assessment/Plan The patient is a 64-year-old male with #cough-likely viral no history of COPD or asthma reported or other lung disease. Chest x-ray negative -Mucinex, Zyrtec, flutter valve -Viral studies negative occluding flu COVID RSV -Chest x-ray ordered and negative -Check BNP does not appear visibly volume overloaded # Severe central canal stenosis at the C6-7 level -Appreciate spine surgery recs plan for operative management today-surgery -Continue pain control with Toradol and Tylenol -Resume aspirin once cleared from surgical standpoint -current plan is postop day 5 per surgery team -PT/OT # CAD with history of PCIx4-good exercise tolerancet- reports prior to worsening weakness in his leg and difficulty ambulating patient was able to ambulate more than a mile without any shortness of breath or dyspnea and take care of all of 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 normal slip feeder on his own #Hx of VT with ICD in place # Preoperative evaluation RCRI score-1 given 6% risk of adverse cardiac even #chronic systolic CHF not in exac-last EF on echo that I can find was 30% -Cardiology evaluated preoperatively -cont home meds -Continue statin, Coreg, amiodarone -lasix held currently in anticipation of surgery-resume following -check bnp (more content not included)...[facility]02-27-2025 Note SARS-COV-2 (AGENT OF COVID-19) RNA: Not detected INFLUENZA A RNA: Not detected INFLUENZA B RNA: Not detected RESPIRATORY SYNCYTIAL VIRUS (RSV) RNA: Not detectedLincolnhealthComment on above:Performed By: #### [id number] ####[facility] LABORATORYCLIA [id number] [address] [place] OF [id number] NoteHNO ID: [id number] Author: LACEY MCDERMOTT MD Service: Neurosurgery Author Type: Physician Type: Plan of Care Filed: 12/19/2024 11:15 Note Text: NS plan of care - Pt with severe, progressive myelopathy over the last several months, now unable to walk. CT shows severe ventral compression at C6-C7 from a calcified disc-osteophyte complex. Was planning to have surgery at [place] but felt to be unsafe, so he was sent here. Has a cardiac hx with pacemaker, DM2 that is under good control. Plan for C4 to T1 PCDF after medical and cardiac clearance. High-risk surgery; discussed risk of paralysis (transient or permanent), infection, bleeding, medical complications, etc. No good alternative to surgery. Likely OR tomorrow PM once time is available. Lacey Mcdermott [facility]02-24-2025 Radiology Diagnostic study note [facility] Imaging Services [address] [place] [address] Spine Cervical without Contras MR#: [id number] Acct: [id number] Name: FRANK ZIMMER Rep #: [id number] : 1960 M 64 From: David Reed MD PCP: Dr. Reagan Soto MD Status: RE G CLI Study:Spine Cervical without Contras Date of Exam: 12/17/24 Exam# [id number] Ordering Dr: Aguila Ochoa PA PROCEDURE: SPINE CERVICAL WITHOUT CONTRAS REASON FOR EXAM: History of paralysis. Right-sided neck pain. TECHNIQUE: Cervical spine CT without contrast. COMPARISON: None. FINDINGS: Alignment: Normal Vertebrae: Multilevel spondylosis. Soft Tissues: Unremarkable C1-2: Normal alignment. Dens appears intact. Degenerative changes at the atlantoaxial joint. C2-3: Unremarkable C3-4: Moderate degree of disc space narrowing. Spondylosis. Facet joint osteoarthritis more prominent on the right side. C4-5: Mild degree of disc space narrowing and disc degeneration. Anterior spondylosis. Uncovertebral arthrosis with a moderate degree of bilateral neural foraminal stenosis worse on the right side. C5-6: Marked degree of disc space narrowing. Spondylosis. Marked degree of central canal stenosis. Bilateral neural foraminal stenosis. C6-7: Marked degree of disc space narrowing. Spondylosis. Moderate to marked degree of central canal stenosis. C7-T1: Disc space narrowing and spondylosis. CT/Spine Cervical without Contras IMPRESSION: NO ACUTE CERVICAL FRACTURE. Marked degree of central canal stenosis at the C5-C6 and C6-C7 levels. One or more dose reduction techniques were used (e.g., Automated exposure control, adjustment of the mA and/or kV according to patient size, use of iterative reconstruction technique). Reading Location: [id number] CC: RICK Montano; Dr. Reagan Soto MD ~ Cell Pourer: Signed [facility]02-21-2025 Evaluation note* Diagnosis Onset Date Resolution Status Admit Date Cervical myelopathy inactive 2024 1:54pm Inability to walk deleted 2024 1:54pm Weakness deleted December 14, 2024 1:54pm Acute blood loss anemia acute [facility] 2024 4:25pm Cervical stenosis of spinal canal acute December 24, 2024 4:25pm Debility acute December 24 4:25pm H/O laminectomy acute December 4:25pm Hyperlipidemia acute December 24, 2024 4:25pm Myelopathy concurrent 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 spinal stenosis of cervical region acute December 24, 2024 4:25pm Presence of cardiac resynchronization therapy defibrillator (PLAY THERAPIST-D) October, acute December 24, 2024 4:25pm Presence of stent in coronar y artery September, acute December 24, 2024 4:25pm Radiculopathy due to cervica l spondylosis at multiple levels acute [facility] 2024 4:25pm Urine retention acute December 4:25pm Bladder cancer chronic December 24, 2024 4:25pm Diabetes mellitus, type II chronic December 24, 2024 4:25pm Dilated cardiomyopathy chronic [facility] 2024 4:25pm Hypertension chronic December 24, 2 025 4:25pm NSVT (nonsustained ventricul ar tachycardia) chronic December 24, 2024 4:25pm [facility] Work Phone: 1(333) 335-260902-21-2025 Evaluation note* Diagnosis Onset Date Resolution Status Admit Date Cervical myelopathy inactive 2024 1:54pm Inability to walk deleted 2024 1:54pm Weakness deleted December 14, 2024 1:54pm Acute blood loss anemia acute M 2024 4:25pm Anxiety and depression acute [facility] 2024 4:25pm Bronchospasm, acute acute December 24, 2024 4:25pm Debility acute December 24 4:25pm Hyperlipidemia acute December 24, 2024 4:25pm Hypoxemia acute December 24 4:25pm Insomnia acute December 24 4:25pm Presence of cardiac resynchronization therapy defibrillator (PLAY THERAPIST-D) October, acute December 24, 2024 4:25pm Presence of stent in coronar y artery September, acute December 24, 2024 4:25pm Pulmonary nodules/lesions, multiple acute December 24, 2024 4:25pm Urine retention acute December 4:25pm Bladder cancer chronic December 24, 2024 4:25pm Cervical stenosis of spinal canal chronic December 24, 2024 4:25pm COPD with acute exacerbation December 24, 2024 4:25pm Diabetes mellitus, type II chronic December 24, 2024 4:25pm Dilated cardiomyopathy chronic [facility] 2024 4:25pm Hypertension chronic December 24 4:25pm Myelopathy concurrent with and due to spinal stenosis of cervical region chronic December 24, 2024 4:25pm NSVT (nonsustained ventricular tachycardia) chronic December 242024 4:25pm Radiculopathy due to cervica l spondylosis at multiple levels chronic December 24, 2024 4:25pm COPD (chronic obstructive pulmonary disease) suspected December 24 4:25pm H/O laminectomy inactive December 4:25pm [facility] Work Phone: 1(481) 317-883102-21-2025 Evaluation note* Diagnosis Onset Date Resolution Status Admit Date Cervical myelopathy inactive 2024 1:54pm Inability to walk deleted 2024 1:54pm Weakness deleted December 14, 2024 1:54pm Acute blood loss anemia acute 2024 4:25pm Debility acute December 24 4:25pm NSVT (nonsustained ventricular tachycardia) acute December 242024 4:25pm Anxiety and depression chronic [facility] 2024 4:25pm Chronic low back pain chronic Dec 4:25pm Myelopathy concurrent with and due to spinal stenosis of cervical region chronic December 24, 2024 4:25pm Pulmonary nodules/lesions, multiple chronic December 24, 2024 4:25pm Radiculopathy due to cervica l spondylosis at multiple levels chronic December 24, 2024 4:25pm Urine retention chronic December 4:25pm COPD (chronic obstructive pulmonary disease) suspected December 24 4:25pm Bronchospasm, acute resolved December 24, 2024 4:25pm Cervical stenosis of spinal canal resolved December 24, 2024 4:25pm COPD with acute exacerbation resolve d December 24, 2024 4:25pm Hypoxemia resolved December 24 4:25pm Insomnia resolved December 24 4:25pm Bladder cancer inactive December 24, 2024 4:25pm Diabetes mellitus, type II inactive December 24, 2024 4:25pm Dilated cardiomyopathy inactive [facility] 2024 4:25pm H/O laminectomy inactive December 4:25pm Hyperlipidemia inactive December 24, 2024 4:25pm Hypertension inactive December 24, 4:25pm Presence of cardiac resynchronization therapy defibrillator (PLAY THERAPIST-D) October, inactive December 24, 2024 4:25pm Presence of stent in coronar y artery September, inactive December 24, 2024 4:25pm long term acute care registered nurse current use of amiodarone acute February 01, 2025 3:26pm NSVT (nonsustained ventricular tachycardia) acute January 222024 3:26pm 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 inactive February 01, 2025 3:26pm Dilated cardiomyopathy inactive 2024 3:26pm Presence of cardiac resynchronization therapy defibrillator (PLAY THERAPIST-D) October, inactive January 3:26pm [facility] Work Phone: [phone]) 119-914902-20-2025 Telephone encounter Note* Telephone Encounter - Fela Carl - 12/13/2024 2:52 PM EST Labs were entered TSH done 08/02/2024 . CBC & CMP done 10/30/2024. Sent to scanning [facility] [id number] Miscellaneous Notes* Telephone Encounter - Fela Alexiser - 12/13/2024 2:52 PM EST Labs were entered TSH done 08/02/2024 . CBC & CMP done 10/30/2024. Sent to scanning * Telephone Encounter - Fela Alexiser - 11/21/2024 2:25 PM EST We received labs results from PCP- I gave to MA to enter. I will send to scanning when completed. * Telephone Encounter - Fela Carl - 11/20/2024 4:23 PM EST I s/w Pt and he stated he has had labs done recently. I s/w Dr. Soto office they will send me what they have but pt is scheduled for additional labs on 11/23/2024 * Telephone Encounter - Fela Siddhartha - 11/16/2024 4:43 PM EST Once new labs are ordered I will call pt and have him obtain them. * Telephone Encounter - Juju Bowens RN - 11/02/2024 3:29 PM EST MERVAT 5.23.25 with MAP F/U 5.29.25 with MAP Labs ordered per SM / needs TSH & CMP EKG 5.23.24 - will need EKG @ OV with MAP 5.29.25 * Telephone Encounter - Fela Carl - 11/02/2024 2:08 PM EST Pt's called in to state Pt needs a refill of amiodarone (Pacerone) 200 MG tablet 1 tab q24H They would like this sent to a[facility] Four[facility] [place] MERVAT 03/15/2024 NOV 03/21/2025 documented in this encounterSFulton County Health CenterDrqnoq43-35-8872 Telephone encounter Note* Telephone Encounter - Fela Siddhartha - 11/21/2024 2:25 PM EST We received labs results from PCP- I gave to MA to enter. I will send to scanning when completed. [facility] [id number] Miscellaneous Notes* Telephone Encounter - Fela Carl - 11/21/2024 2:25 PM EST We received labs results from PCP- I gave to MA to enter. I will send to scanning when completed. * Telephone Encounter - Fela Carl - 11/20/2024 4:23 PM EST I s/w Pt and he stated he has had labs done recently. I s/w Dr. Soto office they will send me what they have but pt is scheduled for additional labs on 11/23/2024 * Telephone Encounter - Fela Carl - 11/16/2024 4:43 PM EST Once new labs are ordered I will call pt and have him obtain them. * Telephone Encounter - Juju Bowens RN - 11/02/2024 3:29 PM EST MERVAT 5.23.25 with MAP F/U 5.29.25 with MAP Labs ordered per SM / needs TSH & CMP EKG 5.23.24 - will need EKG @ OV with MAP 5.29.25 * Telephone Encounter - Fela Carl - 11/02/2024 2:08 PM EST Pt's called in to state Pt needs a refill of amiodarone (Pacerone) 200 MG tablet 1 tab q24H They would like this sent to [facility] [place] MERVAT 03/15/2024 NOV 03/21/2025 documented in this encounterSFulton County Health CenterDijhpo22-85-1947 Telephone encounter Note* Telephone Encounter - Fela Carl - 11/20/2024 4:23 PM EST I s/w Pt and he stated he has had labs done recently. I s/w Dr. Soto office they will send me what they have but pt is scheduled for additional labs on 11/23/2024 [facility] [id number] Telephone encounter Note* Telephone Encounter - Fela Carl - 11/16/2024 4:43 PM EST Once new labs are ordered I will call pt and have him obtain them. [facility] [id number] Telephone encounter Note* Telephone Encounter - Brianna Jain CMA - 11/14/2024 9:37 AM EST MRI form signed and dated by Dr. Falguni Zarate on 11-12-2024 and was faxed to [facility] MRI Department on 11-14-2024. [facility] [id number] Miscellaneous Notes* Telephone Encounter - Brianna Jain CMA - 11/14/2024 9:37 AM EST MRI form signed and dated by Dr. Falguni Zarate on 11-12-2024 and was faxed to [facility] MRI Department on 11-14-2024. * Telephone Encounter - Fela Carl - 11/09/2024 4:01 PM EST Received a MRI scan form from [facility] Gave to device clinic to complete and give to Dr. Zarate to review and sign documented in this encounterSFulton County Health CenterGrzngx59-21-4287 Telephone encounter Note* Telephone Encounter - Fela Carl - 11/09/2024 4:01 PM EST Received a MRI scan form from [facility] Gave to device clinic to complete and give to Dr. Zarate to review and sign [facility] HospitalDflaao13-22-3774 Telephone encounter Note* Telephone Encounter - Juju Bowens RN - 11/02/2024 3:29 PM EST MERVAT 5.23.25 with MAP F/U 5.29.25 with MAP Labs ordered per SM / needs TSH & CMP EKG 5.23.24 - will need EKG @ OV with MAP 5.29.25 [facility] HospitalIlbngi03-64-8353 Telephone encounter Note* Telephone Encounter - Fela Carl - 11/02/2024 2:08 PM EST Pt's called in to state Pt needs a refill of amiodarone (Pacerone) 200 MG tablet 1 tab q24H [facility] 03/15/2024 NOV 03/21/2025 [facility] HospitalTtagtb64-74-1071 Telephone encounter Note* Telephone Encounter - Kadi Julian RN - 06/08/2024 2:57 PM EDT Misael'd PLAY THERAPIST-D remote received. DDDR 60 PLAY THERAPIST-D device. BV Pacing 94 %. Interrogation of device shows nonew events since last remote 04-25-24. Will update Dr. Zarate in [employer] message. [facility] [id number] Miscellaneous Notes* Telephone Encounter - Kadi Julian RN - 06/08/2024 2:57 PM EDT Misael'd PLAY THERAPIST-D remote received. DDDR 60 PLAY THERAPIST-D device. BV Pacing 94 %. Interrogation of device shows nonew events since last remote 04-25-24. Will update Dr. Zarate in [employer] message. * Telephone Encounter - Kadi Julian RN - 05/01/2024 7:39 AM EDT Misael'd auto remote for 06-08-[address] Zarate's request * Telephone Encounter - Falguni Zarate MD - 04/30/2024 8:07 AM EDT Please do remote in 4-6 weeks to look for afib * Telephone Encounter - Carmen Maurer - 04/25/2024 10:31 AM EDT Faxed over latest interrogation per request via fax from [facility]. * Telephone Encounter - Kadi Julian RN - 04/25/2024 10:19 AM EDT Scheduled PLAY THERAPIST-D remote received showing normal device function. LMOVM with remote results. Scheduled next auto remote 07-27-24. Told to call office if any questions. documented in this encounterSumma [id number] Telephone encounter Note* Telephone Encounter - Kadi Julian RN - 05/01/2024 7:39 AM EDT Misael'd auto remote for 06-08-[address] Zarate's request [facility] HospitalYetbdz83-38-0551 Miscellaneous Notes* Telephone Encounter - Kadi Julian RN - 05/01/2024 7:39 AM EDT Misael'd auto remote for 06-08-[address] Zarate's request * Telephone Encounter - Falguni Zarate MD - 04/30/2024 8:07 AM EDT Please do remote in 4-6 weeks to look for afib * Telephone Encounter - Carmen Maurer - 04/25/2024 10:31 AM EDT Faxed over latest interrogation per request via fax from [facility]. * Telephone Encounter - Kadi Julian RN - 04/25/2024 10:19 AM EDT Scheduled PLAY THERAPIST-D remote received showing normal device function. LMOVM with remote results. Scheduled next auto remote 07-27-24. Told to call office if any questions. documented in this [facility]07-08-2024 Telephone encounter Note* Telephone Encounter - Falguni Zarate MD - 04/30/2024 8:07 AM EDT Please do remote in 4-6 weeks to look for afib [facility] [id number] Miscellaneous Notes* Telephone Encounter - Falguni Zarate MD - 04/30/2024 8:07 AM EDT Please do remote in 4-6 weeks to look for afib * Telephone Encounter - Carmen Maurer - 04/25/2024 10:31 AM EDT Faxed over latest interrogation [facility] * Telephone Encounter - Kadi Julian RN - 04/25/2024 10:19 AM EDT Scheduled PLAY THERAPIST-D remote received showing normal device function. LMOVM with remote results. Scheduled next auto remote 07-27-24. Told to call office if any questions. documented in this encounterSFulton County Health CenterWzyqyg63-47-2118 Telephone encounter Note* Telephone Encounter - Carmen Maurer - 04/25/2024 10:31 AM EDT Faxed over latest interrogation [facility] HospitalYpqhzw58-54-4208 Miscellaneous Notes* Telephone Encounter - Carmen Maurer - 04/25/2024 10:31 AM EDT Faxed over latest interrogation [facility]. * Telephone Encounter - Kadi Julian RN - 04/25/2024 10:19 AM EDT Scheduled PLAY THERAPIST-D remote received showing normal device function. LMOVM with remote results. Scheduled next auto remote 07-27-24. Told to call office if any questions. documented in this encounterSFulton County Health CenterIvopna55-23-5105 Telephone encounter Note* Telephone Encounter - Kadi Julian RN - 04/25/2024 10:19 AM EDT Scheduled PLAY THERAPIST-D remote received showing normal device function. LMOVM with remote results. Scheduled next auto remote 07-27-24. Told to call office if any questions. [facility] [id number] History of Present illness Narrative* Falguni Zarate MD - 03/15/2024 10:30 AM EDT [facility] Cardiology Note Chief Complaint: Chief Complaint Patient presents with 6 Month Follow-up History of Present Illness: Frank Zimmer is a 63 y.o. male presents for follow-up. He has a history of coronary artery disease with prior stenting in 2016, left bundle branch block with cardiomyopathy and ventricular tachycardia. He had recurrent episode of ventricular tachycardia so in February 2022 we performed an ablation of ventricular tachycardia. He has been on amiodarone and has had no shocks since 2021. He does not feel any side effects to the amiodarone. He is having no chest pain. His shortness of breath has been stable and it does not affect his activities. He has no PND, without edema. He has had no heart failureadmissions. His last catheterization was [facility] in 2021 and he had a 50% right coronary artery lesion, mild disease in the circumflex and a 60% proximal LAD with a normal IFR. Past Medical History: Past Medical History: Diagnosis Date Back pain Bladder cancer (HCC) CAD, multiple vessel stents 2018 Chest pain Depression Diabetes mellitus (HCC) GERD (gastroesophageal reflux disease) Hyperlipidemia Hypertension IL (mitral incompetence) Ventricular tachycardia, monomorphic (HCC) Past Surgical History Past Surgical History: Procedure Laterality Date A-V CARDIAC PACEMAKER INSERTION Left 11/19/2019 ICD ABLATION OF DYSRHYTHMIC FOCUS 02/22/2022 VT ablation BACK SURGERY BLADDER SURGERY CARDIAC CATHETERIZATION 08/23/2022 [facility] CORONARY ANGIOPLASTY 2019 CORONARY ANGIOPLASTY WITH STENT [...] Types: Cigarettes Quit date: 11/16/2016 Years since quittin.3 Smokeless tobacco: Never Substance Use Topics Alcohol use: Never Drug use: Never Comment: Caffeine: none Allergies: Allergies Allergen Reactions Bee Venom Anaphylaxis Pt isn't sure if it was a bee or another type of insect. Morphine Nausea And Vomiting Other reaction(s): Vomiting Medications: Current Outpatient Medications: amiodarone (Pacerone) 200 MG tablet, Take 1 tablet (200 mg) by mouth daily., Disp: 90 tablet, Rfl: 3 aspirin 81 MG EC tablet, Take 81 mg by mouth in the morning., Disp: , Rfl: carvedilol (Coreg) 25 MG tablet, TAKE 1 TABLET TWICE A DAY, Disp: 180 tablet, Rfl: 3 empagliflozin (Jardiance) 25 MG, Take 25 mg by mouth in the morning., Disp: , Rfl: furosemide (Lasix) 20 MG tablet, Take 20 mg by mouth in the morning., Disp: , Rfl: lisinopril 40 MG tablet, TAKE 1 TABLET IN THE MORNING, Disp: 90 tablet, Rfl: 3 Meloxicam (MOBIC PO), Take by mouth 1 (one) time each day., Disp: , Rfl: metFORMIN XR (Glucophage-XR) 500 MG 24 hr tablet, Take 500 mg by mouth in the morning and 500 mg inthe evening., Disp: , Rfl: Mounjaro 5 MG/0.5ML solution pen-injector, INJECT 5 mg under skin weekly, Disp: , Rfl: nitroglycerin (Nitrostat) 0.4 MG SL tablet, up to max of 3 total doses. If no relief after 1 dose, call 911., Disp: , Rfl: rosuvastatin (Crestor) 40 MG tablet, TAKE 1 TABLET BY MOUTH EVERY DAY nightly, Disp: , Rfl: traMADol (Ultram) 50 MG tablet, Take by mouth 2 times daily., Disp: , Rfl: cyclobenzaprine (Flexeril) 10 MG tablet, Take 10 mg by mouth every 8 hours as needed., Disp: , Rfl: Review of Systems: Review of Systems Constitutional: Negative for fatigue and unexpected weight change. Lost 50# since starting on Mounjaro Respiratory: Negative. Negative for shortness of breath. Cardiovascular: Negative for chest pain, palpitations and leg swelling. Wants to discuss possible repeat ablation in hopes of stopping amiodarone Musculoskeletal: Positive for arthralgias, back pain and gait problem. Balance disturbances / no recent falls Neurological: Negative for dizziness (positional), syncope and light-headedness. Physical Examination: Vitals: Vitals: 03/15/24 1020 BP: 128/76 BP Location: Left arm Patient Position: Sitting BP Cuff Size: Adult Pulse: 64 SpO2: 99% Weight: 220 lb (99.8 kg) Height: 6' 5 (1.956 m) Body mass index is 26.09 kg/m . Physical Exam Constitutional: General: He is not in acute distress. Appearance: Normal appearance. He is not ill-appearing. HENT: Head: Normocephalic and atraumatic. Nose: Nose normal. Eyes: General: No scleral icterus. Conjunctiva/sclera: Conjunctivae normal. Neck: Vascular: No carotid bruit or JVD. Cardiovascular: Rate and Rhythm: Normal rate and regular rhythm. Heart sounds: Normal heart sounds. No murmur heard. Pulmonary: Effort: Pulmonary effort is normal. Breath sounds: No wheezing or rales. Abdominal: General: Abdomen is flat. There is no distension. Tenderness: There is no abdominal tenderness. Musculoskeletal: General: No deformity. Right lower leg: No edema. Left lower leg: No edema. Skin: General: Skin is warm and dry. Neurological: General: No focal deficit present. Mental Status: He is alert. Motor: No weakness. Gait: Gait normal. Psychiatric: Mood and Affect: Mood normal. Thought Content: Thought content normal. Laboratory Tests: Lab Results Component Value Date [...] Date LDLCALC 77 02/16/2022 LDLCALC 71 05/23/2020 Assessment and Plan: 1. The patient is had no further ventricular tachycardia. He still prefers to continue the amiodarone since he is tolerating it well and has not provided any shocks. We will cut his dose to 200 alternating with 100 mg every other day. Will obtain the lab work from his primary care office to look athis amiodarone labs. 2. The patient had an excellent response of his heart failure to PLAY THERAPIST-D. Device is working well. He is about a year and a half left on the battery. documented in this encounterSFulton County Health CenterXxnzcm25-31-1113 Telephone encounter Note* Telephone Encounter - Stella Kimball RN - 03/02/2024 1:02 PM EDT MERVTA 09-14-23 03-15-24 11-15-23 bmp/creat 0.89 in Care Everywhere [facility] HospitalCxhgjr36-24-0512 Miscellaneous Notes* Telephone Encounter - Stella Kimball RN - 03/02/2024 1:02 PM EDT MERVAT 11-22-23 NOV 5-23-24 1-23-24 bmp/creat 0.89 in Care Everywhere documented in this [place] [id number] Telephone encounter Note* Telephone Encounter - Ilda Sullivan RN - 01/09/2024 11:19 AM EDT Spoke with pt. States he had his blood work drawn at [facility] in [place]. [place] [id number] Miscellaneous Notes* Telephone Encounter - Ilda Sullivan RN - 01/09/2024 11:19 AM EDT Spoke with pt. States he had his blood work drawn at [facility] in [place]. * Telephone Encounter - Ilda Sullivan RN - 01/09/2024 11:18 AM EDT MERVAT 09/14/2023 with Bettina Devlin APRN 6 Month RTC 03/15/[address] Zarate TSH and CMP ordered 09/14/2023 ordered not resulted documented in this [place] [id number] Telephone encounter Note* Telephone Encounter - Ilda Sullivan RN - 01/09/2024 11:18 AM EDT MERVAT 09/14/2023 with Bettina Devlin APRN 6 Month RTC 03/15/[address] Zarate TSH and CMP ordered 09/14/2023 ordered not resulted [facility] HospitalYpoyvn27-93-1539 History of Present illness Narrative* Brianna Dvelin APRN - PROJECT SYSTEMS ENGINEER - 09/14/2023 1:00 PM EST Images from the original note were not included. [facility] CARDIOLOG[facility] [address] [facility] [address] Dept: [phone] Dept Visit type: Established : 1960 Reason for Visit: 6 Month Follow-up Assessment and Plan 1. Cardiac resynchronization therapy defibrillator (PLAY THERAPIST-D) in place 2. Paroxysmal atrial fibrillation (HCC) - ECG 12 lead - CLINIC PERFORMED 3. LBBB (left bundle branch block) 4. VT (ventricular tachycardia) (HCC) He will continue amiodarone 200mg daily. He follows yearly with eye doctor. CXR completed at [place] Amiodarone labs ordered for monitoring. He will wait till next office visit to discuss possible repeat ablation. Device check today, report pending. Denies device shocks. TSH and CMP ordered today. Follow up for Follow up six months Dr Zarate. Subjective Frank Zimmer is a 62 [address] of Dr Zarate. Past medical history of ventricular tachycardia initially diagnosed in 2017 , after he presented to [facility]. At that time, he had stents placed and was discharged on medication. In 2019, He was transferred to [facility] for recurrent ventricular tachycardia with a PLAY THERAPIST-D placed due to heart failure, left bundle branch block and low ejection fraction. He had been treated with amiodarone, but in February 2022 he underwent ablation to get him off the amiodarone. In December, he had recurrent ventricular tachycardia and placed back on amiodarone at [place]. Presents for six month follow up. No device shocks. Family presents. Main complaint today his back pain and follows with pain management. He would like to wait until next visit to discuss a repeat ablation. Frank Zimmer Review of Systems Constitutional: Negative for chills, [...] (HCC) GERD (gastroesophageal reflux disease) Hyperlipidemia Hypertension IL (mitral incompetence) Ventricular tachycardia, monomorphic (HCC) Social [...] BACK SURGERY BLADDER SURGERY CARDIAC CATHETERIZATION 08/23/2022 [facility] CORONARY ANGIOPLASTY 2019 CORONARY ANGIOPLASTY WITH STENT [...] Reviewed and Summarized No results found for: EFBP, PLVEF, LVEFPHYS, LVEF2D, EF Review of tests/labs done/ordered within my specialty: EKG in office: Reviewed with patient. Review of tests/labs done/ordered outside my specialty: Independent interpretation of tests: JOSE Kelly CNP documented in this [facility]11-16-2023 Telephone encounter Note* Telephone Encounter - Kadi Julian RN - 09/08/2023 4:10 PM EST Scheduled PLAY THERAPIST-D remote received. OVM with remote results and next remote date 01-10-24. Told to call if any questions. [facility] HospitalKnatut58-46-2081 Miscellaneous Notes* Telephone Encounter - Kadi Julian RN - 09/08/2023 4:10 PM EST Scheduled PLAY THERAPIST-D remote received. LMOVM with remote results and next remote date 01-10-24. Told to call if any questions. documented in this encounterSFulton County Health CenterZbrmeq70-48-3375 History of Present illness Narrative* Falguni Zarate MD - 01/06/2023 3:00 PM EDT [facility] Cardiology [facility] CARDIOLOGY [address] [place] [id number] Dept: [phone] Dept Loc: [phone] Visit type: Established : 1960 Chief Complaint: Chief Complaint Patient presents with 3 Month Follow Up History of Present Illness: Frank Zimmer is a 62 y.o. male presents for follow-up. He has a history of ventricular tachycardia first diagnosed in October 2017 when he presented with sustained ventricular tachycardia, acute chest pain and acute IL. By report stents were placed and his ejection fraction was 40%. This was at [facility] and he was transferred up to [facility] in 2019 with recurrent ventricular tachycardia and he had a defibrillator placed in 2019 which was a PLAY THERAPIST-D. This was due to heart failure, low ejection fraction and left bundle branch block. He was on amiodarone. In February 2022 he wanted tocome off the amiodarone as we performed an ablation and then wean him off the amiodarone. He did well until a few months ago when he got admitted to [facility] with recurrent ventricular tachycardia and he [...] he was in acute severe pain. Since thenhe has been on treatment for the back and pain and spasms have improved and he has had no further ar rhythmia. He denies increased shortness of breath, PND, orthopnea edema. He denies chest pain. His ejection fraction in July when he came in with ventricular tachycardia was 30%. Past Medical History: Past Medical History: Diagnosis Date Back pain Bladder cancer (CMS/HCC) (HCC) CAD, multiple vessel stents 2018 Chest pain Depression Diabetes mellitus (HCC) GERD (gastroesophageal reflux disease) Hyperlipidemia Hypertension IL (mitral incompetence) Ventricular tachycardia, monomorphic Past Surgical History Past Surgical History: Procedure Laterality Date A-V CARDIAC PACEMAKER INSERTION Left 11/19/2019 ICD ABLATION OF DYSRHYTHMIC FOCUS 02/22/2022 VT ablation BACK SURGERY BLADDER SURGERY CARDIAC CATHETERIZATION 08/23/2022 [facility] CORONARY ANGIOPLASTY 2019 CORONARY ANGIOPLASTY WITH STENT [...] mouth in the morning and 500 mg inthe evening., Disp: , Rfl: Mounjaro 2.5 MG/0.5ML [...] during ER visit in November 2022 at [facility] for back pain - see device clinic [...] his coronary disease and heart failure. His PLAY THERAPIST-D function is normal. He will follow-up in 4 months. We could repeat the ablation for right now given his severe backproblems and pain he opted for just medical management which is certainly reasonable since has beeneffective. documented in this [facility]03-06-2023 Telephone encounter Note* Telephone Encounter - Luci Hernández RN - 12/27/2022 3:55 PM EST Unscheduled ICD Remote received today for Sustained VT episode on 12.25.22, HR 150 bpm duration 9min no therapy. Patient states he was having severe back pain and cramping at the time. He thought the device might shock him but it did note. He states to be taking his medication as ordered. [facility] [id number] Miscellaneous Notes* Telephone Encounter - Luci Hernández RN - 12/27/2022 3:55 PM EST Unscheduled ICD Remote received today for Sustained VT episode on 23, HR 150 bpm duration 9min no therapy. Patient states he was having severe back pain and cramping at the time. He thought the device might shock him but it did note. He states to be taking his medication as ordered. documented in this [facility]02-20-[address] Anna [facility] December 13, 2022 11:32pm Note Date/Time December 13, 2022 10:45pm [facility] Medical Records Department [address] [place] [address] Emergency Department Summary 12/13/22 MR#: [id number] Acct: [id number] Name: FRANK ZIMMER Rep #:[id number] : 1960 62 From: Juan Anna DO PCP: Dr. Reagan Soto MD Status:RE G ER Location: ED HPI History of Present Illness Chief Complaint: Back Narrative Narrative: 61-year-old male presenting with lower back pain. He describes it as diffuse. He denies any direct trauma to it. He believes he strained something chopping wood. He saw his primary care physician Dr. Soto and he was given Flexeril. Flexeril does not seem to be helping significantly. Patient stating his spasmsare getting worse. No loss of bladder or bowel control. No saddle anesthesia/paresthesia. Patient is able to ambulate although there is some painin lower back. Does. PFS PFS Medical History Arthritis Atherosclerotic heart disease of [place] coronary artery with other forms of angina pectoris Bladder cancer Bradycardia Cancer Cardiology follow-up encounter Chest pain Chronic cough Diabetes Dilated cardiomyopathy Former smoker High cholesterol History of CHF (congestive heart failure) History of echocardiogram History of edema History of heart attack History of irregular heartbeat History of stress test Hypersomnia Hypertension Injury of back Normal stress echocardiogram NSTEMI (non-ST elevated myocardial infarction) NSVT (nonsustained ventricular tachycardia) Pericardial effusion Premature ventricular contractions Presence of cardiac resynchronization therapy defibrillator (PLAY THERAPIST-D) (~11/19/19) Presence of stent in coronary artery (~09/29/17) Shortness of breath Shortness of breath on exertion Sustained ventricular tachycardia Tobacco abuse Unstable angina Wears glasses Wears partial dentures Home Medications aspirin 81 mg tablet,delayed release 81 mg PO DAILY@0800 09/15/17 [Rx Last Taken 11/07/19] carvedilol 25 mg tablet 25 mg PO BID 09/13/19 [History Last Taken 11/07/19] rosuvastatin 40 mg tablet 40 mg PO DAILY 09/13/19 [History Last Taken Unknown] metformin 500 mg tablet,extended release 24 hr 500 mg PO BID 11/24/20 [History Last Taken Unknown] empagliflozin 25 mg tablet (Jardiance) 25 mg PO DAILY 04/07/22 [History Last Taken Unknown] furosemide 20 mg tablet (Lasix) 20 mg PO DAILY #90 tabs 08/26/22 [Rx Last Taken Unknown] lisinopril 40 mg tablet 40 mg PO DAILY #90 tabs 08/30/22 [Rx Last Taken Unknown] amiodarone 400 mg tablet 400 mg PO DAILY 10/07/22 [History Last Taken Unknown] hydrocodone-acetaminophen 5-325mg 5mg-325mg 1 tab PO Q6H PRN PRN Pain 3 days #12TABLETS 12/13/22 [Rx Last Taken Unknown] lidocaine 5 % topical patch (Lidoderm) 1 patch topical DAILY PRN pain #15 ea 12/13/22 [Rx Last Taken Unknown] Allergy/AdvReac Type Severity Reaction Status Date / Time morphine AdvReac Nausea/Vom/ Verified 10/07/22 14:31 Diarrhea Family History Mother CVA (cerebral vascular accident) Breast cancer Father Diabetes Heart disease Hypertension Sister Diabetes Hypertension Surgical History H/O lumbar discectomy History of cardiac catheterization History of cardiac radiofrequency ablation History of coronary artery stent placement History of left heart catheterization (11/07/19) Hx of cystoscopy Presence of coronary angioplasty implant and graft (~09/29/17) Social History Smoking Status: Former smoker how long ago did patient quit smokin09/13/2018 alcohol intake: never substance use type: does not use caffeine: No what type of physical activity do you participate in: none and bicycling frequency: 1-2 times per week duration: 15-30 minutes/day seatbelt use: always do you feel safe at home: Yes ROS ROS ED Constitutional Constitutional ED: Denies chills, fever(s) or sweats Eyes Eyes: Denies blurry vision or change in vision ENT ENT ED: Denies ear pain or sore throat Cardiovascular Cardiovascular: Denies chest pain, palpitations or racing heartbeat Respiratory/Chest Respiratory/Chest: Denies cough, dyspnea or sputum Gastrointestinal Gastrointestinal: Denies abdominal pain, constipation, diarrhea, nausea or vomiting Genitourinary Genitourinary ED: Denies dysuria, hematuria or urinary frequency Musculoskeletal Musculoskeletal: Reports back pain; Denies arthralgias, myalgias or neck pain Integumentary Denies abscess, Abrasions or rash Neurologic Neurologic: Denies headache(s), paresthesias or weakness Psychiatric Psychiatric: Denies anxiety, depression, suicidal ideation or suicidal thoughts Endocrine Endocrinology: Denies polydipsia or polyuria EXAM Physical Exam Const Vital Signs: 12/13/22 22:07 Temperature 96.2 F L Temperature Source Temporal Pulse Rate 84 Respiratory Rate 18 Blood Pressure 177/97 H Blood Pressure Mean 123 Pulse Ox 92 Oxygen Delivery Method Room Air Positive well nourished General Appearance ED: NAD; Negative for pallor HEENT Reports moist mucous membranes Resp normal respiratory effort Cardio regular rate and regular rhythm GI normal to inspection, nondistended, normoactive bowel sounds Back/Spine Lumbar Spine / Lower Back: ROM limited and paraspinal muscle tenderness bilateral L3, L4 and L5 Pelvis: buttocks normal Extremity normal to inspection and no clubbing, cyanosis or edema Neuro oriented x3 Sensorium / Orientation: alert Motor Exam: strength 5/5 throughout Psych mental status grossly normal Skin no rashes or lesions noted and no wounds General Skin Exam: Negative for jaundice or pallor MDM MDM MDM Narrative Medical decision making narrative: 62-year-old male presenting with back pain. He states he thinks he injured it while chopping wood. He already saw his primary care physician and was given Flexeril. He states is not helping. On examination he has some tenderness fairly diffusely in the lumbar region. There is no obvious midline deformities or step-offs. He has no bruising, rash, crepitance. No CVA tenderness. Patient was given IM Toradol, oxycodone, Lidoderm patch. Will obtain x-ray lumbar spine. Patient feeling improved on reevaluation at 11:30 PM. X-ray of the lumbar spine on my interpretation shows degenerative changes without acute fractures. Patient was given a prescription for [place] and Lidoderm patches. Heis to follow-up with his primary care physician to ensure resolution. Impression: 1. Lumbar strain Lab Data Attestation: I reviewed the patient's lab results. Radiography Diagnostic Testing: Clinical Impression(s) from Imaging Studies Lumbar Spine X-Ray 12/13/22 22:50 IMPRESSION: Degenerative changes of the spine, as detailed above. Electronically Signed: Franko Angel DO at 23:04 EST Reading Location ID and State: [address] [place] [address] Tel [phone], Service support , Discharge Plan Triage Chief Complaint: Back ED Provider: Juan Anna Dx/Rx/DC Orders Instructions: ED Back Spasm, No Trauma Prescriptions: New hydrocodone-acetaminophen 5-325 mg tablet 1 tab PO Q6H PRN PRN (Reason: Pain) 3 Days Qty: 12 0RF lidocaine [Lidoderm] 5 % adhesive patch,medicated 1 patch topical DAILY PRN (Reason: pain) Qty: 15 0RF Rx Instructions: leave on most painful area for up to 12 hrs No Action carvedilol 25 mg tablet 25 mg PO BID rosuvastatin 40 mg tablet 40 mg PO DAILY metformin 500 mg tablet extended release 24 hr 500 mg PO BID Label Comments: Take 1 tablet by mouth twice a day Jardiance 25 mg tablet 25 mg PO DAILY amiodarone 400 mg tablet 400 mg PO DAILY aspirin 81 MG tablet 81 mg PO DAILY@0800 0RF furosemide [Lasix] 20 mg tablet 20 mg PO DAILY Qty: 90 3RF lisinopril 40 mg tablet 40 mg PO DAILY Qty: 90 3RF Primary Care Provider: Reagan Soto Referrals: Reagan Soto MD [Primary Care Provider] - Disposition Disposition: Home, Self Care What to do if you have Problems For any increased pain, shortness of breath, bleeding, nausea or vomiting, chestpain, or any unexpected problems, contact your Primary Care Provider. Call [facility] ([phone]) or report to the closest Emergency Room. Call 911 if necessary. 12/13/22 1046 <Electronically signed by Juan Anna DO> Cosigner Signature (if applicable): CC: Dr. Reagan Soto MD ~ Signed [facility] Work Phone: [phone]) 700-403412-08-2022 Telephone encounter Note* Telephone Encounter - Kadi Julian RN - 09/30/2022 8:43 AM EST Add on PLAY THERAPIST-D remote per Dr. Zarate to assess if any VT arrhythmias. Interrogation shows normal PLAY THERAPIST-D device function. BV Pacing 95%. Reviewed remote and histograms. No events noted. Patient on amiodarone. VT monitor zone set at 144 bpm. Called and notified patient that remote was normal. Will update Dr. Zarate's team in [facility]. Continue with scheduled remote 11-08-22. [employer] [id number] Miscellaneous Notes* Telephone Encounter - Kadi Julian RN - 09/30/2022 8:43 AM EST Add on PLAY THERAPIST-D remote per Dr. Zarate to assess if any VT arrhythmias. Interrogation shows normal PLAY THERAPIST-D device function. BV Pacing 95%. Reviewed remote and histograms. No events noted. Patient on amiodarone. VT monitor zone set at 144 bpm. Called and notified patient that remote was normal. Will update Dr. Zarate's team in [facility]. Continue with scheduled remote 11-08-22. * Telephone Encounter - Kadi Julian RN - 09/29/2022 5:20 PM EST Remote requested by Dr. Zarate. Called patient to see if can walk through manual remote. Patient still driving home from appt - lives 1hr away. Notified request for remote. Patient stated will try tosend when at home - gave instructions. * Telephone Encounter - Kadi Julian RN - 09/29/2022 5:19 PM EST ----- Message from Juju Bowens RN sent at 09/29/2022 4:19 PM EST ----- Regarding: Assist with remote transmission 09/30/22 Patient saw MAP in office 09.29.22. [facility] is requesting patient send a remote ICD check .06.14 to look for silent ventricular tachycardia. Please send to [place] to forward to [facility] for review. Thanks, Juju documented in this [facility]12-07-2022 Telephone encounter Note* Telephone Encounter - Kadi Julian RN - 09/29/2022 5:20 PM EST Remote requested by Dr. Zarate. Called patient to see if can walk through manual remote. Patient still driving home from [employer] - lives 1[place]. Notified request for remote. Patient stated will try tosend when at home - gave instructions. [id number] Telephone encounter Note* Telephone Encounter - Kadi Julian RN - 09/29/2022 5:19 PM EST ----- Message from Juju Bowens RN sent at 09/29/2022 4:19 PM EST ----- Regarding: Assist with remote transmission 09/30/22 Patient saw MAP in office 09.29.22. [facility] is requesting patient send a remote ICD check 09.30.22 to look for silent ventricular tachycardia. Please send to [place] to forward to [facility] for review. Juju Jaramillo [facility] [id number] NoteName: Frank Zimmer Date of : 1960 Date of Admission: 02/22/2022 Date of Discharge: 02/23/2022 Admitting physician: Falguni Zarate MD Discharge Attending: Brianna Devlin APRN - ARIAD[place], Falguni Zarate MD Primary Care Physician: Reagan Soto MD Review of Systems: Review of Systems [...] ? Type 2 diabetes mellitus without complication (HCC) ? Hypertensive disorder ? Acute HFrEF (heart failure with reduced ejection fraction) (HCC) ? Anxiety ? Cardiac resynchronization therapy defibrillator (PLAY THERAPIST-D) in place ? Acute pain ? Chest pain ? Pericardial effusion ? Acute pericarditis ? Chronic systolic (congestive) heart failure (HCC) ? LBBB (left bundle branch block) ? Paroxysmal atrial fibrillation (HCC) ? Cardiac disease ? Ventricular tachycardia (HCC) ? VT (ventricular tachycardia) ([facility]) Procedures: Pending HOSPITAL COURSE : Frank Zimmer is a 61 y.o. male presented for [...] on March 26, 2022 (more content not included)...[facility]05-02-2022 History of Present illness Narrative* Radha Brown LPN - 02/22/2022 4:36 PM EDT Transferred to [facility]. documented in this [facility] Work Phone: [phone] Hospital Discharge instructions* Instructions* Lenora Jones APRN - [place]AD[place] - 02/22/2022 Post Electrophysiology/Ablation Discharge Instructions 1. [...] be gone by tomorrow. documented in this [facility] Work Phone: [phone]) 190-896201-28-2020 History of Present illness Narrative* Nael Dawn RN - 11/20/2019 12:49 PM EST 1230 11/20/2019 Pt discharged with all belongings, education, and medications by wheelchair with to home. * Claus Brianna Carol, [employer] INSTALLER - PROJECT SYSTEMS ENGINEER - 11/20/2019 9:31 AM EST CARDIOLOGY PROGRESS NOTE Chart and interval events reviewed. Reason for Visit VT/ S/P PLAY THERAPIST-D SUBJECTIVE: Frank Zimmer states mild discomfort at device site. Denies chest pain, sob or palpitations. Sittingat side of bed returned from CXR. SCHEDULED [...] Infusions: dextrose CBC: Recent Labs 11/19/19 0009 11/20/19 0225 WBC 10.3 15.4* HGB 13.4 13.5 HCT 38.4* 39.9* PLT 180 174 BMP: Recent Labs 11/19/19 0009 11/20/19 0225 NA 135 138 K 4.5 4.3 CL [...] See Report IMPRESSIONS/RECOMMENDATIONS: 1. Monomorphic VT: S/p PLAY THERAPIST-d for secondary prevention. Plan to stop amiodarone 3 months post procedure. Follow arrhyhtmia burden to determine observation vs VT ablation. Recheck EF in 3 months. Postoperative instructions reviewed with patient and booklet given. Device check normal function CXR reviewed good lead placement and no pneumothorax Follow up in two weeks in device clinic and [address] Zarate 2. Acute Pain: Post PLAY THERAPIST-D OARRS reviewed. Post Vicodin script printed and given to patient. 3.HFrEF: [facility]U team following. On GDMT. Recommend repeat Echo in 3 months. 4.CAD: Hx of stents. Follows with Dr Vora in [place]. Electronicallysigned by JSOE Kelly CNP on 11/20/2019 at 9:32 AM * Loan Gayle RN - 11/19/2019 12:07 PM EST Patient partial given back to him. Placed in mouth * Loan Gayle RN - 11/19/2019 11:58 AM EST Spoke to TYLER Mata. Waiting for orders * Shailesh Flores MD - 11/19/2019 6:42 AM EST CARDIOLOGY PROGRESS NOTE Chart and interval events reviewed. Reason for Visit Sustained VT SUBJECTIVE: Frank Zimmer denies acute complaints ON. He continues to [...] provider] insulin lispro 2 Units Subcutaneous TID WC vancomycin 1,000 mg Intravenous Once amiodarone 400 mg Oral TID sodium chloride flush 10 mL Intravenous 2 times per day lisinopril 40 mg Oral Daily [Held by provider] insulin lispro 0-6 Units Subcutaneous TID WC [...] Continuous Infusions: dextrose CBC: Recent Labs 11/18/19 00011/19/19 000 WBC 9.9 10.3 HGB 13.9 13.4 HCT 40.5 38.4* PLT 167 180 BMP: Recent Labs 11/18/19611/19/19 000 NA 137 135 K 3.9 4.5 CL [...] See Report IMPRESSIONS/RECOMMENDATIONS: Sustained Ventricular Tachycardia - [place] EKG with monomorphic V tach in ED [...] last week on cath, was 40% following [place] according to patient - TSH 4.27, T4 0.91 - BNP 1099 - CXR normal at [place] ED - NYHA class I, only feels general fatigue - continuing lisinopril, coreg - unsure if patient was supposed to be on Imdur - Echo with EF 30% and hypokinesis of inferolateral myocardium CAD - [place] in 2018, 3 stents placed - Stents [...] arteries. Patient with VT and transferred to [facility]. EF ~30% Plan is for BiV ICD today. Continue supportive care. * Sulema Mckinney - 11/18/2019 11:46 AM EST .Nutrition rescreen completed. Chart reviewed. Patient to be monitored and followed by the diet donor technician.Sulema Mckinney DT * Falguni Zarate MD - 11/18/2019 11:28 AM EST CARDIOLOGY PROGRESS NOTE Chart and interval events reviewed. Reason for Visit VT and LBBB SUBJECTIVE: Frank Zimmer states no complaints. No CP or SOB. No VT since IV amio stopped, tolerating oral load,no N/V SCHEDULED MEDICATIONS: insulin lispro 2 Units [...] warrants secondary prevention ICD. Given his LBBB, ANV=976 msec, and EF=20%plan for PLAY THERAPIST-D. Risks and benefits discussed and patient agrees. 3 months post will withdraw amiodarone. Depending on arrythmia burden, EF response to PLAY THERAPIST will decide on cessation and observation versus VT ablation. Electronicallysigned by Falguni Zarate MD on 11/18/2019 at 11:28 AM * Shailesh Flores MD - 11/18/2019 7:32 AM EST CARDIOLOGY PROGRESS NOTE Chart and interval events reviewed. Reason for Visit Sustained VT SUBJECTIVE: Frank Zimmer denies acute complaints ON. He continues to [...] See Report IMPRESSIONS/RECOMMENDATIONS: Sustained Ventricular Tachycardia - EKG with monomorphic V tach in ED [...] last week on cath, was 40% following [place] according to patient - TSH 4.27, T4 0.91 - BNP 1099 - CXR normal at [place] [facility] - NYHA class I, only feels general fatigue - continuing lisinopril, coreg - unsure if patient was supposed to be on Imdur - Echo with EF 30% and hypokinesis of inferolateral myocardium CAD - [place] in 2018, 3 stents placed - Stents [...] Srinivas Leach MD - 11/18/2019 9:28 AM ELI Eaton, Dr. Leach, saw and evaluated the patient 11/17/2019. I personally obtained the martínez and critical portions of the history and physical exam. I reviewed the chart and discussed the patient withthe resident. I agree with the resident's medical decision making. Assessment/Plan: Patient with history of CAD s/p CABG, hx of ischemic CM. Had chest pain several weeks ago, had cath11/07/2019 with 3 patent grafts. Holter monitor placed [...] and turgor. no severe rashes or lesions. * Shailesh Flores MD - 11/17/2019 7:53 AM EST CARDIOLOGY PROGRESS NOTE Chart and interval events reviewed. Reason for Visit Sustained VT SUBJECTIVE: Frank Zimmer denies acute complaints ON. He is currently [...] Oral Daily carvedilol 25 mg Oral BID WC insulin lispro 0-6 Units Subcutaneous TID clopidogrel [...] See Report IMPRESSIONS/RECOMMENDATIONS: Sustained Ventricular Tachycardia - [place] EKG with monomorphic V tach in ED [...] last week on cath, was 40% following IL according to patient - TSH 4.27, T4 0.91 - BNP 1099 - CXR normal at [place] ED - NYHA class I, only feels general fatigue - continuing lisinopril, coreg - unsure if patient was supposed to be on Imdur - Echo pending CAD - [place] in 2018, 3 stents placed - Stents [...] reviewed the chart and discussed the patient withthe resident. I agree with the resident's medical decision making. Assessment/Plan: Patient with history of CAD s/p CABG, hx of ischemic CM. Had chest pain several weeks ago, had cath11/07/2019 with 3 patent grafts. Holter monitor placed [...] severe rashes or lesions. [facility]: 1(897) 946-551801-01-2020 Evaluation note* Diagnosis Onset Date Resolution Status Presence of cardiac resynchr onization therapy defibrillator (PLAY THERAPIST-D) October, acute Presence of stent in coronary artery September, acute [id number] chronic Dilated cardiomyopathy chron ic NSVT (nonsustained ventricular tachycardia) [facility] Work Phone: 1(212) 968-630101-01-2020 Evaluation note* Diagnosis Onset Date Resolution Status Presence of cardiac resynchr onization therapy defibrillator (PLAY THERAPIST-D) October, acute Presence of stent in coronary artery September, acute Dilated cardiomyopathy chron ic NSVT (nonsustained ventricular tachycardia) [facility] Work Phone: Evaluation note* Diagnosis Acute pain- Primary Other acute pain CAD, multiple vessel Coronary atherosclerosis of unspecified type of vessel, [place] or graft Ventricular tachycardia, monomorphic (HCC) Paroxysmal ventricular tachycardia Hyperlipidemia Other and unspecified hyperlipidemia Hypertension Unspecified essential hypertension Acute HFrEF (heart failure with reduced ejection fraction) (HCC) Anxiety Anxiety state, unspecified Cardiac resynchronization therapy defibrillator (PLAY THERAPIST-D) in place documented in this encounter [facility] Work Phone: Evaluation noteNo assessment information available [facility] Work Phone: Evaluation note* Diagnosis Ventricular tachycardia (HCC)- Primary Paroxysmal ventricular tachycardia Cardiac disease Heart disease, unspecified VT (ventricular tachycardia) (HCC) Paroxysmal ventricular tachycardia documented [facility] Work Phone: Evaluation note* Diagnosis Cardiac resynchronization therapy defibrillator (PLAY THERAPIST-D) in place- Primary VT (ventricular tachycardia) Paroxysmal ventricular tachycardia Paroxysmal atrial fibrillation (CMS/HCC) (HCC) Atrial fibrillation Primary hypertension Unspecified essential hypertension LBBB (left bundle branch block) Other left bundle branch block Chronic systolic (congestive) heart failure (HCC) CAD, multiple vessel Encounter for adjustment or management of cardiac device [facility] Diagnosis Cardiac resynchronization therapy defibrillator (PLAY THERAPIST-D) in place- Primary Paroxysmal atrial fibrillation (HCC) Atrial fibrillation LBBB (left bundle branch block) Other left bundle branch block VT (ventricular tachycardia) (HCC) Paroxysmal ventricular tachycardia Encounter for monitoring amiodarone therapy Encounter for adjustment or management of cardiac device documented in this encounter [facility] note* Diagnosis VT (ventricular tachycardia) (HCC) Paroxysmal ventricular tachycardia Paroxysmal atrial fibrillation (HCC) Atrial fibrillation Primary hypertension Unspecified essential hypertension Encounter for adjustment or management of cardiac device documented in this encounter [facility] note* Diagnosis Primary hypertension Unspecified essential hypertension Encounter for adjustment or management of cardiac device documented in this encounter [facility] note* Diagnosis Cardiac resynchronization therapy defibrillator (PLAY THERAPIST-D) in place- Primary LBBB (left bundle branch block) Other left bundle branch block Chronic systolic (congestive) heart failure (HCC) VT (ventricular tachycardia) (HCC) Paroxysmal ventricular tachycardia Encounter for adjustment or management of cardiac device documented in this encounter [facility] note* Diagnosis VT (ventricular tachycardia) (HCC) Paroxysmal ventricular tachycardia Encounter for monitoring amiodarone therapy- Primary VT (ventricular tachycardia) (HCC) Paroxysmal ventricular tachycardia Chronic systolic (congestive) heart failure (HCC) Encounter for adjustment or management of cardiac device Encounter for adjustment or management of cardiac device documented in this encounter [facility] note* Diagnosis VT (ventricular tachycardia) (HCC) Paroxysmal ventricular tachycardia Encounter for monitoring amiodarone therapy- Primary VT (ventricular tachycardia) (HCC) Paroxysmal ventricular tachycardia Chronic systolic (congestive) heart failure (HCC) Encounter for adjustment or management of cardiac device Encounter for adjustment or management of cardiac device documented in this encounter [facility] note* Diagnosis Cervical stenosis of spinal canal- Primary Spinal stenosis in cervical region Failure to thrive in adult Adult failure to thrive Impaired ambulation Primary hypertension Unspecified essential hypertension Acute post-operative pain VT (ventricular tachycardia) (HCC) Paroxysmal ventricular tachycardia Preop cardiovascular exam Pre-operative cardiovascular examination Ischemic cardiomyopathy Other specified forms of chronic ischemic heart disease Cervical myelopathy (HCC) Cervical spondylosis with myelopathy Primary hypertension Unspecified essential hypertension S/P cervical spinal fusion- Primary Arthrodesis status documented in this encounter [facility] note* Diagnosis Cervical stenosis of spinal canal- Primary Spinal stenosis in cervical region Failure to thrive in adult Adult failure to thrive Impaired ambulation Primary hypertension Unspecified essential hypertension Acute post-operative pain VT (ventricular tachycardia) (HCC) Paroxysmal ventricular tachycardia Preop cardiovascular exam Pre-operative cardiovascular examination Ischemic cardiomyopathy Other specified forms of chronic ischemic heart disease Cervical myelopathy (HCC) Cervical spondylosis with myelopathy Primary hypertension Unspecified essential hypertension S/P cervical spinal fusion Arthrodesis status documented in this encounter [facility] note* Diagnosis VT (ventricular tachycardia) (HCC) Paroxysmal ventricular tachycardia Primary hypertension Unspecified essential hypertension Encounter for adjustment or management of cardiac device documented in this encounter [facility] note* Diagnosis Cervical stenosis of spinal canal- Primary Spinal stenosis in cervical region Failure to thrive in adult Adult failure to thrive Impaired ambulation Primary hypertension Unspecified essential hypertension Acute post-operative pain VT (ventricular tachycardia) (HCC) Paroxysmal ventricular tachycardia Preop cardiovascular exam Pre-operative cardiovascular examination Ischemic cardiomyopathy Other specified forms of chronic ischemic heart disease Cervical myelopathy (HCC) Cervical spondylosis with myelopathy Primary hypertension Unspecified essential hypertension S/P cervical spinal fusion- Primary Arthrodesis status documented in this encounter [facility] note* Diagnosis Cervical stenosis of spinal canal- Primary Spinal stenosis in cervical region Failure to thrive in adult Adult failure to thrive Impaired ambulation Primary hypertension Unspecified essential hypertension Acute post-operative pain VT (ventricular tachycardia) (HCC) Paroxysmal ventricular tachycardia Preop cardiovascular exam Pre-operative cardiovascular examination Ischemic cardiomyopathy Other specified forms of chronic ischemic heart disease Cervical myelopathy (HCC) Cervical spondylosis with myelopathy Primary hypertension Unspecified essential hypertension S/P cervical spinal fusion Arthrodesis status documented in this encounter [facility] note* Diagnosis VT (ventricular tachycardia) (HCC) Paroxysmal ventricular tachycardia LBBB (left bundle branch block)- Primary Other left bundle branch block VT (ventricular tachycardia) (HCC) Paroxysmal ventricular tachycardia Chronic systolic (congestive) heart failure (HCC) Cardiac resynchronization therapy defibrillator (PLAY THERAPIST-D) in place CAD, multiple vessel Encounter for adjustment or management of cardiac device documented in this encounter [facility] note* Diagnosis Cervical stenosis of spinal canal- Primary Spinal stenosis in cervical region Failure to thrive in adult Adult failure to thrive Impaired ambulation Primary hypertension Unspecified essential hypertension Acute post-operative pain VT (ventricular tachycardia) (HCC) Paroxysmal ventricular tachycardia Preop cardiovascular exam Pre-operative cardiovascular examination Ischemic cardiomyopathy Other specified forms of chronic ischemic heart disease Cervical myelopathy (HCC) Cervical spondylosis with myelopathy Primary hypertension Unspecified essential hypertension S/P cervical spinal fusion- Primary Arthrodesis status [facility] Cervical stenosis of spinal canal- Primary Spinal stenosis in cervical region Failure to thrive in adult Adult failure to thrive Impaired ambulation Primary hypertension Unspecified essential hypertension Acute post-operative pain VT (ventricular tachycardia) (HCC) Paroxysmal ventricular tachycardia Preop cardiovascular exam Pre-operative cardiovascular examination Ischemic cardiomyopathy Other specified forms of chronic ischemic heart disease Cervical myelopathy (HCC) Cervical spondylosis with myelopathy Primary hypertension Unspecified essential hypertension S/P cervical spinal fusion Arthrodesis status documented in this encounter [facility] Discharge instructions* Instructions* Brianna Devlin, MUFFLER INSTALLER - PROJECT SYSTEMS ENGINEER - 11/20/2019 Learning About a Pacemaker for Heart Failure What is a pacemaker for heart failure? A pacemaker is a small device that is placed under the skin of your chest. It is powered by batteries. It has thin wires, called leads, that pass through a vein into your heart. A pacemaker for heart failure is a biventricular pacemaker (say jj-yjk-PGJRO-theresa-castro). Treatment that uses this type of pacemaker is called cardiac resynchronization therapy (PLAY THERAPIST). When you have heart failure, the lower [...] Where can you learn more? Go to [email or web address] and sign in to your [employer] account. Enter Y169 in the Search Health Information box to learn more about Learning About a Pacemaker for Heart Failure. If you do not have an account, please click on the Sign Up Now link. Current as of: January 30, 2019 Content Version: 12.3 [employer]. Care instructions adapted under license by [employer]. If youhave questions about a medical condition or this instruction, always ask your healthcare professional. [employer] disclaims any warranty or liability for your [...] upper arm muscles. This includes pushing a interventionist or vacuum, mopping floors, swimming, or swinging [...] your doctor if you can take an tazx-vpn-mkuuqzp medicine. ? Do not take aspirin, ibuprofen [...] times. The card should include the ICD handstitching machine armhole feller and model information. Wear medical alert jewelry that states you have an ICD. You can buy this at most drugstores. Have your ICD checked as often as [...] Where can you learn more? Go to [email or web address] and sign in to your [employer] account. Enter K184 in the Search Health Information box to learn more about Implantable Cardioverter-Defibrillator Placement: What to Expect at Home. If you do not have an account, please click on the Sign Up Now link. Current as of: January 30, 2019 Content Version: 12.3 [id number] [employer]. Care instructions adapted under license by [employer]. If youhave questions about a medical condition or this instruction, always ask your healthcare professional. [employer] disclaims any warranty or liability for your [...] in CPR. Call the [facility] at [phone] if you have any questions regarding your incision, defibrillator, or follow-up appointments. Call the [facility] Clinic at [phone] if you have signs of a rapid heart rhythm, if you hear a beeping tone or vibration from your defibrillator. Call the [facility] Clinic at [phone] or your physician if you experience a shock. Be calm and liedown if you are alone. If you feel as though you are going to pass out call [phone]. No lifting, pulling, pushing more than 5 [...] to a bee sting. documented in this [facility] Work Phone: Reason for referral (narrative)No reason for referral information availableWKettering [facility] Work Phone: Reason for visit Narrative* Diagnostic Procedure Only (Routine) - Closed Specialty Diagnoses / Procedures Referred By Contac t Referred To Contact XR IMAGING Diagnoses S/P cervical spinal fusion Procedures XR CERV GENERAL 2V AP/LAT RADEX SPINE CERVICAL 2 OR 3 VIEWS Lacey Mcdermott MD [address] [place] [address] Phone: tel: fax: [place] [address] Referral ID Status Reason Start Date Expiration Date V isits Requested Visits Authorized [id number] Closed Auto-Generate d Referral 12/26/2024 01/25/2026 1 [facility] Diagnostic Procedure Only (Routine) - Closed Specialty Diagnoses / Procedures Referred By Contac t Referred To Contact XR IMAGING Diagnoses S/P cervical spinal fusion Procedures XR CERV OTHER 4V AP/LAT/FLX/EXT RADEX SPINE CERVICAL 4 OR 5 VIEWS Lacey Mcdermott MD [address] [place] [address] Phone: tel: fax: [place] [address] Referral ID Status Reason Start Date Expiration Date V isits Requested Visits Authorized [id number] Closed Auto-Generate d Referral 01/21/2025 02/20/2026 1 [facility] N[facility]* Diagnostic Procedure Only (Routine) - Closed Specialty Diagnoses / Procedures Referred By Contac t Referred To Contact XR IMAGING Diagnoses S/P cervical spinal fusion Procedures XR CERV OTHER 4V AP/LAT/FLX/EXT RADEX SPINE CERVICAL 4 OR 5 VIEWS Lacey Mcdermott MD [address] [place] [address] Phone: tel: fax: [place] [address] Referral ID Status Reason Start Date Expiration Date V isits Requested Visits Authorized [id number] Closed Auto-Generate d Referral 03/04/2025 04/03/2026 1 1 [facility] Reason for Referral Status Reason Specialty Diagnoses / Procedures Referre d By Contact Referred To Contact Closed Cardiology Diagnoses Pericardial effusion Procedures Echo 2D Doppler Color Jarvis Hall, MUFFLER INSTALLER - PROJECT SYSTEMS ENGINEER [address] [id number] Assessments Diagnosis Pericardial effusion Unspecified disease of pericardium Advance Directives Date Activated Date Inactivated Comments 12/19/2024 12:05 PM 12/24/2024 6:26 PM Question Answer Comments Full Code Order Discussed With: Patient Documents on File Type Date Recorded Patient Computer Assembler Expl anation Advance Directives and Living Will Power of Vision Teacher Latest Code Status on File Code Status Date Activated Date Inactivated Comments Full Code 11/25/2019 8:24 PM 11/27/2019 6:48 PM Full Code 11/19/2019 12:22 PM 11/20/2019 4:04 PM Full Code 11/18/2019 3:38 PM 11/19/2019 12:22 PM Full Code 11/16/2019 11:11 PM 11/18/2019 3:38 PM Documents on File Type Date Recorded Patient Computer Assembler Expl anation Advance Directives and Living Will Power of Vision Teacher Latest Code Status on File Code Status Date Activated Date Inactivated Comments Full Code 11/19/2019 12:22 PM Full Code 11/18/2019 3:38 PM 11/19/2019 12:22 PM Full Code 11/16/2019 11:11 PM 11/18/2019 3:38 PM Advance Directive Response Recorded Date/ Time Advance Directives No November 07, 2019 10:50am Living Will No June 08 10:21am Power of Vision Teacher No June 08, 10:21am Documents on File Type Date Recorded Patient Computer Assembler Expl anation ACP-Advance Directive ACP-Power of Vision Teacher Latest Code Status on File Code Status Date Activated Date Inactivated Comments Full Code 02/22/2022 11:59 AM Full Code 11/25/2019 8:24 PM 11/27/2019 6:48 PM Full Code 11/19/2019 12:22 PM 11/20/2019 4:04 PM Advance Directive Response Recorded Date/ Time Name of Medical Power of Vision Teacher Ravindra Zimmer December 13, 2022 10:14pm Advance Directives No November 07, 2019 9:50am Living Will Yes December 13, 023 10:14pm Power of Vision Teacher Yes December 13, 2022 10:14pm Advance Directive Response Recorded Date/ Time Name of Medical Power of Vision Teacher Ravindra Zimmer December 13, 2022 11:14pm Advance Directives No November 07, 2019 10:50am Living Will Yes December 13, 023 11:14pm Power of Vision Teacher Yes December 13, 2022 11:14pm Advance Directive Response Recorded Date/ Time Advance Directives No November 07, 2019 10:50am Living Will Yes December 13, 023 11:14pm Power of Vision Teacher Yes December 13, 2022 11:14pm Advance Directive Response Recorded Date/ Time Advance Directives No November 07, 2019 9:50am Living Will Yes December 13, 023 10:14pm Power of Vision Teacher Yes December 13, 2022 10:14pm Date Activated Date Inactivated Comments 12/19/2024 12:05 PM Advance Directive Response Recorded Date/ Time Living Will No December 07, 025 2:25pm Power of Vision Teacher No December 07, 2024 2:25pm Living Will Yes November 21 2:41pm Power of Vision Teacher Yes November 21, 2024 2:41pm Name of Medical Power of Vision Teacher November 21, 2024 2:41pm Living Will No December 26, 2024 4:11pm Power of Vision Teacher No December 26 4:11pm Name of Medical Power of Vision Teacher ravindra December 24, 2024 4:49pm Advance Directives No November 07, 2019 9:50am Advance Directive Response Recorded Date/ Time Living Will No December 07, 025 3:25pm Do you have a Healthcare Power of Vision Teacher? No December 07, 2024 3:25pm Living Will Yes November 21 3:41pm Do you have a Healthcare Power of Vision Teacher? Yes November 21, 2024 3:41pm Name of Medical Power of Vision Teacher November 21, 2024 3:41pm Living Will No December 26, 2024 5:11pm Do you have a Healthcare Power of Vision Teacher? No December 26, 2024 5:11pm Name of Medical Power of Vision Teacher ravindra December 24, 2024 5:49pm Advance Directives No November 07, 2019 10:50am Date Activated Date Inactivated Comments 12/19/2024 12:05 PM 12/24/2024 6:26 PM Question Answer Comments Full Code Order Discussed With: Patient Advance Directive Response Recorded Date/ Time Living Will No December 26, 2024 5:11pm Do you have a Healthcare Power of Vision Teacher? No December 26, 2024 5:11pm Name of Medical Power of Vision Teacher ravindra December 24, 2024 5:49pm Advance Directives No November 07, 2019 10:50am Advance Directive Response Recorded Date/ Time Advance Directives No November 07, 2019 10:50am Chief Complaint and Reason for Visit Chief Complaint E LAB ORDER Chief Complaint 6 m fu Reason for Visit Presence of cardiac resynchronization therapy defibrillator (PLAY THERAPIST-D) Presence of stent in coronary artery [id number] Dilated cardiomyopathy NSVT (nonsustained ventricular tachycardia) Chief Complaint 6 M FU BACK Reason for Visit Presence of cardiac resynchronization therapy defibrillator (PLAY THERAPIST-D) Presence of stent in coronary artery [id number] Dilated cardiomyopathy NSVT (nonsustained ventricular tachycardia) Chief Complaint BACK PAIN/RX HERE 4 M FU Reason for Visit Presence of cardiac resynchronization therapy defibrillator (PLAY THERAPIST-D) Presence of stent in coronary artery Dilated cardiomyopathy NSVT (nonsustained ventricular tachycardia) Chief Complaint LAB AND CHEST XRAY Chief Complaint LAB AND CHEST XRAY 6 M FU EORDER Reason for Visit Presence of cardiac resynchronization therapy defibrillator (PLAY THERAPIST-D) Presence of stent in coronary artery Dilated cardiomyopathy NSVT (nonsustained ventricular tachycardia) Chief Complaint Admit Date pain pain, loss of balance October 30, 2024 11:47am LOWER EXT November 21, 2024 1 2:20pm R27.8 R29.818 December 05, 2024 10:14am OTHER December 07, 2024 2:03pm PARASTHESIAS, WEAKNESS December 10 2:03pm CERVICAL SPINE December 14, 2024 1:54pm room 2 December 14, 2024 2:33pm Disease of spinal cord, unspecified Febr uary 2024 10:45am LAMINECTOMY December 24, 2024 4:25 pm LAMINECTOMY December 24, 2024 5:13 pm Reason for Visit Admit Date Cervical myelopathy December 14, 2024 1:54pm Inability to walk December 14, 2024 1:54pm Weakness February 21st, 2025 1:54pm Acute blood loss anemia December 24, 2024 4:25pm Cervical stenosis of spinal canal December 24, 2024 4:25pm Debility December 24, 2024 4:25 pm H/O laminectomy December 24, 2024 4:25 pm Hyperlipidemia December 24, 2024 4:25 pm Myelopathy concurrent 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 spinal stenosis of cervical region December 24, 2024 4:25pm Presence of cardiac resynchr onization therapy defibrillator (PLAY THERAPIST-D) December 24, 2024 4:25pm Presence of stent in coronary artery Mar 2024 4:25pm Radiculopathy due to cervica l spondylosis at multiple levels December 24, 2024 4:25pm Urine retention December 24, 2024 4:25 pm Bladder cancer December 24, 2024 4:25 pm Diabetes mellitus, type II December 24 4:25pm Dilated cardiomyopathy December 24, 2024 4 :25pm Hypertension December 24, 2024 4:25 pm NSVT (nonsustained ventricular tachycard ia) December 24, 2024 4:25pm Chief Complaint Admit Date pain pain, loss of balance October 30, 2024 11:47am LOWER EXT November 21, 2024 1 2:20pm R27.8 R29.818 December 05, 2024 10:14am OTHER December 07, 2024 2:03pm PARASTHESIAS, WEAKNESS December 10 2:03pm CERVICAL SPINE December 14, 2024 1:54pm room 2 December 14, 2024 2:33pm Disease of spinal cord, unspecified Febr uary 2024 10:45am LAMINECTOMY December 24, 2024 4:25 pm LAMINECTOMY December 24, 2024 5:13 pm LAMINECTOMY December 25, 2024 9:57 am LAMINECTOMY December 27, 2024 10:5 0am LAMINECTOMY December 28, 2024 12:2 1pm LAMINECTOMY December 29, 2024 11:0 2am LAMINECTOMY December 31, 2024 8:3 4am LAMINECTOMY January 01, 2025 9:0 0am RAPID RESPONSE January 03, 2025 4:5 2am LAMINECTOMY January 03, 2025 6:1 2am LAMINECTOMY January 07, 2025 10: 40am LAMINECTOMY January 08, 2025 11: 49am LAMINECTOMY January 10, 2025 10: 03am LAMINECTOMY January 14, 2025 4:0 5pm Reason for Visit Admit Date Cervical myelopathy December 14, 2024 1:54pm Inability to walk December 14, 2024 1:54pm Weakness December 14, 2024 1:54pm Acute blood loss anemia December 24, 2024 4:25pm Anxiety and depression December 24, 2024 4 :25pm Bronchospasm, acute December 24, 2024 4:25 pm Debility December 24, 2024 4:25 pm Hyperlipidemia December 24, 2024 4:25 pm Hypoxemia December 24, 2024 4:25 pm Insomnia December 24, 2024 4:25 pm Presence of cardiac resynchr onization therapy defibrillator (PLAY THERAPIST-D) December 24, 2024 4:25pm Presence of stent in coronary artery Mar 2024 4:25pm Pulmonary nodules/lesions, multiple Yemi 2024 4:25pm Urine retention December 24, 2024 4:25 pm Bladder cancer December 24, 2024 4:25 pm Cervical stenosis of spinal canal December 24, 2024 4:25pm COPD with acute exacerbation December 24, 2024 4:25pm Diabetes mellitus, type II December 24 4:25pm Dilated cardiomyopathy December 24, 2024 4 :25pm Hypertension December 24, 2024 4:25 pm Myelopathy concurrent 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 spinal stenosis of cervical region December 24, 2024 4:25pm NSVT (nonsustained ventricular tachycard ia) December 24, 2024 4:25pm Radiculopathy due to cervica l spondylosis at multiple levels December 24, 2024 4:25pm COPD (chronic obstructive pulmonary dise ase) December 24, 2024 4:25pm H/O laminectomy December 24, 2024 4:25 pm Chief Complaint Admit Date pain pain, loss of balance October 30, 2024 11:47am LOWER EXT November 21, 2024 1 2:20pm R27.8 R29.818 December 05, 2024 10:14am OTHER December 07, 2024 2:03pm PARASTHESIAS, WEAKNESS December 10 2:03pm CERVICAL SPINE December 14, 2024 1:54pm room 2 December 14, 2024 2:33pm Disease of spinal cord, unspecified Febr ua 2024 10:45am LAMINECTOMY December 24, 2024 4:25 pm LAMINECTOMY December 24, 2024 5:13 pm LAMINECTOMY December 25, 2024 9:57 am LAMINECTOMY December 27, 2024 10:5 0am LAMINECTOMY December 28, 2024 12:2 1pm LAMINECTOMY December 29, 2024 11:0 2am LAMINECTOMY December 31, 2024 8:3 4am LAMINECTOMY January 01, 2025 9:0 0am RAPID RESPONSE January 03, 2025 4:5 2am LAMINECTOMY January 03, 2025 6:1 2am LAMINECTOMY January 07, 2025 10: 40am LAMINECTOMY January 08, 2025 11: 49am LAMINECTOMY January 10, 2025 10: 03am LAMINECTOMY January 14, 2025 4:0 5pm LAMINECTOMY January 15, 2025 8:5 0am 9 M FU February 01, 2025 3:2 6pm EORDERS February 22, 2025 2:49pm Reason for Visit Admit Date Cervical myelopathy December 14, 2024 1:54pm Inability to walk December 14, 2024 1:54pm Weakness December 14, 2024 1:54pm Acute blood loss anemia December 24, 2024 4:25pm Debility December 24, 2024 4:25 pm NSVT (nonsustained ventricular tachycard ia) December 24, 2024 4:25pm Anxiety and depression December 24, 2024 4 :25pm Chronic low back pain December 24, 2024 4: 25pm Myelopathy concurrent 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 spinal stenosis of cervical region December 24, 2024 4:25pm Pulmonary nodules/lesions, multiple Yemi 2024 4:25pm Radiculopathy due to cervica l spondylosis at multiple levels December 24, 2024 4:25pm Urine retention December 24, 2024 4:25 pm COPD (chronic obstructive pulmonary dise ase) December 24, 2024 4:25pm Bronchospasm, acute December 24, 2024 4:25 pm Cervical stenosis of spinal canal December 24, 2024 4:25pm COPD with acute exacerbation December 24, 2024 4:25pm Hypoxemia December 24, 2024 4:25 pm Insomnia December 24, 2024 4:25 pm Bladder cancer December 24, 2024 4:25 pm Diabetes mellitus, type II December 24 4:25pm Dilated cardiomyopathy December 24, 2024 4 :25pm H/O laminectomy December 24, 2024 4:25 pm Hyperlipidemia December 24, 2024 4:25 pm Hypertension December 24, 2024 4:25 pm Presence of cardiac resynchr onization therapy defibrillator (PLAY THERAPIST-D) December 24, 2024 4:25pm Presence of stent in coronary artery Mar 2024 4:25pm [facility] current use of amiodarone Apri l 2024 3:26pm NSVT (nonsustained ventricular tachycard ia) February 01, 2025 3:26pm 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 February 01, 2025 3:26pm Dilated cardiomyopathy February 01, 2025 3:26pm Presence of cardiac resynchr onization therapy defibrillator (PLAY THERAPIST-D) February 01, 2025 3:26pm Chief Complaint Admit Date LAMINECTOMY December 24, 2024 4:25 pm LAMINECTOMY December 31, 2024 8:3 4am LAMINECTOMY January 01, 2025 9:0 0am RAPID RESPONSE January 03, 2025 4:5 2am LAMINECTOMY January 03, 2025 6:1 2am LAMINECTOMY January 07, 2025 10: 40am LAMINECTOMY January 08, 2025 11: 49am LAMINECTOMY January 10, 2025 10: 03am LAMINECTOMY January 14, 2025 4:0 5pm LAMINECTOMY January 15, 2025 8:5 0am 9 M FU February 01, 2025 3:2 6pm EORDERS February 22, 2025 2:49pm Reason for Visit Admit Date Acute blood loss anemia December 24, 2024 4:25pm Debility December 24, 2024 4:25 pm NSVT (nonsustained ventricular tachycard ia) December 24, 2024 4:25pm Anxiety and depression December 24, 2024 4 :25pm Chronic low back pain December 24, 2024 4: 25pm Myelopathy concurrent 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 spinal stenosis of cervical region December 24, 2024 4:25pm Pulmonary nodules/lesions, multiple Yemi 2024 4:25pm Radiculopathy due to cervical spondylosi s at multiple levels December 24, 2024 4:25pm Urine retention December 24, 2024 4:25 pm COPD (chronic obstructive pulmonary dise ase) December 24, 2024 4:25pm Bronchospasm, acute December 24, 2024 4:25 pm Cervical stenosis of spinal canal December 24, 2024 4:25pm COPD with acute exacerbation December 24, 2024 4:25pm Hypoxemia December 24, 2024 4:25 pm Insomnia December 24, 2024 4:25 pm Bladder cancer December 24, 2024 4:25 pm Diabetes mellitus, type II December 24 4:25pm Dilated cardiomyopathy December 24, 2024 4 :25pm H/O laminectomy December 24, 2024 4:25 pm Hyperlipidemia December 24, 2024 4:25 pm Hypertension December 24, 2024 4:25 pm Presence of cardiac resynchr onization therapy defibrillator (PLAY THERAPIST-D) December 24, 2024 4:25pm Presence of stent in coronary artery Mar 2024 4:25pm [facility]iary current use of amiodarone Apri l 2024 3:26pm NSVT (nonsustained ventricular tachycard ia) February 01, 2025 3:26pm 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 RX HERE July 012024 3:30pm Chief Complaint Admit Date IMPAIRED AMBULATION. RX HERE July 3:30pm Family History Relationship Condition Age at Onset Recorded Date/T ayah mother Cerebrovascular accident (CVA) Unknown Malignant neoplasm of breast Unknown father Diabetes mellitus Unknown Cardiac disease Unknown Hypertension Unknown sister Diabetes mellitus Unknown Summary Purpose Additional Source Comments Goals (unrecognized section and content) Goals may be documented in a n alternate sectionGoals may be documented in an alternate sectionGoals may be documented in an alternate sectionGoals may be documented in an alternate sectionGoals may be documented in an alternate sectionGoals may be documented in an alternate sectionGoals may be documented in an alternate sectionGoals may be documented in an alternate sectionGoals may be documented in an alternate sectionGoals may be documented in an alternate sectionGoals may be documented in an alternate sectionGoals may be documented in an alternate sectionGoals may be documented in an alternate sectionGoals may be documented in an alternate sectionGoals may be documented in an alternate sectionGoals may be documented in an alternate sectionGoals may be documented in an alternate section Ordered Prescriptions (unrec ognized section and content) Prescription Sig Dispensed Refills Start Date End Da te aspirin 325 MG EC tablet Take 1 tablet by mouth daily X 1 month 30 tablet 0 02/23/2022 aspirin 81 MG EC tablet Take 1 tablet by mouth daily Restart in one month. 30 tablet 3 03/26/2022 Scheduled Active and Recently Administ ered Medications (unrecognized section and content) Medication Order 02/21/2022 02/22/2022 02/23/2022 aspirin EC tablet 81 mg 81 mg, Oral, DAILY, First dose on Tue02/22/22 at 1715, Until Discontinued, Do not crush or break. 1725 (Given - Provider: Lauren Jimenez RN) 0837 (Given - Provider: Cate Bennett RN) carvedilol (COREG) tablet 25 mg 25 mg, Oral, 2 TIMES DAILY WITH MEALS, First dose on Tue02/22/22 at 1715, Until Discontinued, Administer with food to minimize the risk of orthostatic hypotension 1725 (Given - Provider: Lauren Jimenez RN) 0837 (Given - Provider: Cate Bennett RN)1700 (Due) lisinopril (PRINIVIL;ZESTRIL) tablet 40 mg 40 mg, Oral, DAILY, First dose on Tue02/22/22 at 1715, Until Discontinued 1720 (Not Given - Provider: Lauren Jimenez RN - Reason: Patient took at home) 0837 (Given - Provider: Cate Bennett RN) metFORMIN (GLUCOPHAGE-XR) extended release tablet 500 mg 500 mg, Oral, 2 TIMES DAILY, First dose on Tue02/22/22 at 2100, Until Discontinued, Do not crush or break. 2027 (Given - Provider: María Nash RN) 0837 (Given - Provider: Cate Bennett RN)2100 (Due) rosuvastatin (CRESTOR) tablet 40 mg 40 mg, Oral, DAILY, First dose on Tue02/22/22 at 1715, Until Discontinued 2027 (Given - Provider: María Nash RN) 2099 (Due - Provider: Lalitha Hager [facility]) sodium chloride flush 0.9 % injection 5-40 mL 5-40 mL, IntraVENous, EVERY 12 HOURS SCHEDULED (2 times per day), First dose on Tue02/22/22 at 2100, Until Discontinued, For Line Patency: Peripheral IV = 5 [...] or Central Line = 20 mL/lumen, Recovery(Cath) 2026 (Given - Provider: María Nash RN) 08 (Given - Provider: Cate Bennett RN)2099 (Due) Continuous Medication Order 02/21/2022 02/22/2022 02/23/2022 0.9 [...] hours., Recovery(Cath) 1725 (Given - Provider: Lauren Jimenez RN) sodium chloride flush 0.9 % injection [...] Care Teams (unrecognized sec tion and content) Foot Tender Relationship Specialty Start Date End Date Reagan Soto MD PCP - General Family Medicine 12/06/19 Foot Tender Relationship Specialty Start Date End Date Pcp, No PCP - General 05/08/22 11/23/22 Team Status: Active Member Role Status Dates Dr. Reagan Soto MD Family Provider Active Dr. Reagan Soto MD Primary Care Provider Active Team Status: Inactive Member Role Status Dates Dr. Reagan Soto MD Primary Care Provider, Referr ing Provider Active Reagan Mendoza NP, TIRE FABRIC IMPREGNATING RANGE TENDER-C Attending Provider Active Team Status: Inactive Member Role Status Dates Dr. Reagan Soto MD Primary Care Provider Active Dr. Juan Anna DO Emergency Provider Active Team Status: Inactive Member Role Status Dates Dr. Reagan Soto MD Primary Care Provider Active Dr. Juan Anna DO Attending Provider, Emergency Provider Active Team Status: Inactive Member Role Status Dates Dr. Reagan Soto MD Primary Care Provider, Attend ing Provider Active Foot Tender Relationship Specialty Start Date End Date Reagan Soto MD [address] [facility] [address] [place] [address] PCP - General 12/06/19 Team Status: Inactive Member Role Status Dates Dr. Reagan Soto MD Primary Care Provider, Referr ing Provider Active Malinda Quevedo TIRE FABRIC IMPREGNATING RANGE TENDER, TIRE FABRIC IMPREGNATING RANGE TENDER-C Attending Provider Active Team Status: Active Member Role Status Dates Dr. Reagan Soto MD Primary Care Provider Active Pooja Hood NP-C Attending Provider, Referring Pr ovider Active Team Status: Inactive Member Role Status Dates Dr. Reagan Soto MD Primary Care Provider Active Dr. Karen Medina MD Attending Provider, Referring Pr ovider Active Team Status: Inactive Member Role Status Dates Dr. Reagan Soto MD Primary Care Provider Active Dr. Aravind Morataya MD Attending Provider, Referring Pr ovider Active Team Status: Inactive Member Role Status Dates Dr. Reagan Soto MD Primary Care Provider Active Dr. Karen Medina MD Attending Provider Active Foot Tender Relationship Specialty Start Date End Date Reagan Soto MD [address] [facility] [address] [place] [address] PCP - General 12/06/19 Foot Tender Relationship Specialty Start Date End Date Reagan Soto MD [address] [facility] [address] [place] [address] PCP - General 12/06/19 Team Status: Inactive Member Role Status Dates Dr. Reagan Soto MD Primary Care Pr ovider, Attending Provider, Referring Provider Active Foot Tender Relationship Specialty Start Date End Date Reagan Soto MD [address] [facility] [address] [place] [address] PCP - General 12/06/19 Foot Tender Relationship Specialty Start Date End Date Reagan Soto MD [address] [facility] [address] [place] [address] PCP - General 12/06/19 Foot Tender Relationship Specialty Start Date End Date Reagan Soto MD [address] [facility] [address] [place] [address] PCP - General 12/06/19 Foot Tender Relationship Specialty Start Date End Date Reagan Soto MD [address] [facility] [address] [place] [address] PCP - General 12/06/19 Foot Tender Relationship Specialty Start Date End Date Reagan Soto MD [address] [facility] [address] [place] [address] PCP - General 12/06/19 Foot Tender Relationship Specialty Start Date End Date Reagan Soto MD [address] [facility] [address] [place] [address] PCP - General 12/06/19 Foot Tender Relationship Specialty Start Date End Date Reagan Soto MD [address] [facility] [address] [place] [address] PCP - General 12/06/19 Foot Tender Relationship Specialty Start Date End Date [facility] [address] [facility] [address] [place] [phone] [facility] General 12/06/19 Foot Tender Relationship Specialty Start Date End Date [facility] [address] [facility] [address] [place] [phone] [facility] General 12/06/19 Team Status: Active Member Role Status Dates Dr. Reagan Soto MD Primary Care Provider Active Team Status: Inactive Member Role Status Dates Dr. Reagan Soto MD Primary Care Provider Active Start: October 30, 2024 End: October 30, 2024 Dr. Reagan Soto MD Attending Provider Active Start: October 30, 2024 End: October 30, 2024 Dr. Reagan Soto MD Referring Provider Active Start: October 30, 2024 End: October 30, 2024 Team Status: Inactive Member Role Status Dates Dr. Reagan Soto MD Primary Care Provider Active Start: November 21, 2024 End: November 21, 2024 Dr. Jung Palmer DO Attending Provider Active Start: November 21, 2024 End: November 21, 2024 Dr. Jung Palmer DO Emergency Provider Active Start: November 21, 2024 End: November 21, 2024 Team Status: Inactive Member Role Status Dates Dr. Reagan Soto MD Primary Care Provider Active Start: December 05, 2024 End: December 05, 2024 Dr. Reagan Soto MD Attending Provider Active Start: December 05, 2024 End: December 05, 2024 Dr. Reagan Soto MD Referring Provider Active Start: December 05, 2024 End: December 05, 2024 Team Status: Inactive Member Role Status Dates Dr. Reagan Soto MD Primary Care Provider Active Start: December 07, 2024 End: December 07, 2024 Dr. Jung Palmer DO Attending Provider Active Start: December 07, 2024 End: December 07, 2024 Dr. Jung Palmer DO Referring Provider Active Start: December 07, 2024 End: December 07, 2024 Dr. Jung Palmer DO Emergency Provider Active Start: December 07, 2024 End: December 07, 2024 Team Status: Inactive Member Role Status Dates Dr. Reagan Soto MD Primary Care Provider Active Start: December 10, 2024 End: December 10, 2024 Dr. Jung Palmer DO Attending Provider Active Start: December 10, 2024 End: December 10, 2024 Dr. Jung Palmer DO Referring Provider Active Start: December 10, 2024 End: December 10, 2024 Team Status: Inactive Member Role Status Dates Dr. Reagan Soto MD Primary Care Provider Active Start: December 14, 2024 End: December 14, 2024 Dr. Reagan Soto MD Referring Provider Active Start: December 14, 2024 End: December 14, 2024 RICK Montano Attending Provider Active Star t: December 14, 2024 End: December 14, 2024 Team Status: Inactive Member Role Status Dates Dr. Reagan Soto MD Primary Care Provider Active Start: December 14, 2024 End: December 14, 2024 Dr. Kirt Stevens MD Attending Provider Active S tart: December 14, 2024 End: December 14, 2024 Team Status: Inactive Member Role Status Dates Dr. Reagan Soto MD Primary Care Provider Active Start: December 17, 2024 End: December 17, 2024 RICK Montano Attending Provider Active Star t: December 17, 2024 End: December 17, 2024 RICK Montano Referring Provider Active Star t: December 17, 2024 End: December 17, 2024 Team Status: Active Member Role Status Dates Dr. Reagan Soto MD Primary Care Provider Active Start: December 24, 2024 Dr. Saumya Bobo DO Admit Provider Active Start: December 24, 2024 Dr. Saumya Bobo DO Attending Provider Act [place] Start: December 24, 2024 Dr. Saumya Bobo DO Referring Provider Act [place] Start: December 24, 2024 Team Status: Active Member Role Status Dates Dr. Reagan Soto MD Primary Care Provider Active Start: December 24, 2024 Dr. Saumya Bobo DO Admit Provider Active Start: December 24, 2024 Dr. Saumya Bobo DO Attending Provider Act [place] Start: December 24, 2024 Dr. Saumya Bobo DO Referring Provider Act [place] Start: December 24, 2024 Dr. Saumya Bobo DO Other Provider Active Start: December 24, 2024 Team Status: Inactive Member Role Status Dates Dr. Reagan Soto MD Primary Care Provider Active Start: December 24, 2024 End: January 15, 2025 Dr. Saumya Bobo DO Admit Provider Active Start: December 24, 2024 End: January 15, 2025 Dr. Saumya Bobo DO Attending Provider Act [place] Start: December 24, 2024 End: January 15, 2025 Dr. Saumya Bobo DO Referring Provider Act [place] Start: December 24, 2024 End: January 15, 2025 Team Status: Active Member Role Status Dates Dr. Reagan Soto MD Primary Care Provider Active Start: December 24, 2024 Dr. Saumya Bobo DO Admit Provider Active Start: December 24, 2024 Dr. Saumya Bobo DO Attending Provider Act [place] Start: December 24, 2024 Dr. Saumya Bobo DO Other Provider Active Start: December 24, 2024 Team Status: Active Member Role Status Dates Dr. Reagan Soto MD Primary Care Provider Active Start: December 25, 2024 Dr. Saumya Bobo DO Admit Provider Active Start: December 25, 2024 Dr. Saumya Bobo DO Attending Provider Act [place] Start: December 25, 2024 Dr. Saumya Bobo DO Other Provider Active Start: December 25, 2024 Team Status: Active Member Role Status Dates Dr. Reagan Soto MD Primary Care Provider Active Start: December 27, 2024 Dr. Saumya Bobo DO Admit Provider Active Start: December 27, 2024 Dr. Saumya Bobo DO Attending Provider Act [place] Start: December 27, 2024 Dr. Saumya Bobo DO Other Provider Active Start: December 27, 2024 Team Status: Active Member Role Status Dates Dr. Reagan Soto MD Primary Care Provider Active Start: December 28, 2024 Dr. Saumya Bobo DO Admit Provider Active Start: December 28, 2024 Dr. Saumya Bobo , DO Attending Provider Act [place] Start: December 28, 2024 Dr. Saumya Bobo DO Other Provider Active Start: December 28, 2024 Team Status: Active Member Role Status Dates Dr. Reagan Soto MD Primary Care Provider Active Start: December 29, 2024 Dr. Saumya Bobo DO Admit Provider Active Start: December 29, 2024 Dr. Saumya Bobo DO Attending Provider Act [place] Start: December 29, 2024 Dr. Saumya Bobo DO Other Provider Active Start: December 29, 2024 Team Status: Active Member Role Status Dates Dr. Reagan Soto MD Primary Care Provider Active Start: December 31, 2024 Dr. Saumya Bobo DO Admit Provider Active Start: December 31, 2024 Dr. Saumya Bobo DO Attending Provider Act [place] Start: December 31, 2024 Dr. Saumya Bobo DO Other Provider Active Start: December 31, 2024 Team Status: Active Member Role Status Dates Dr. Reagan Soto MD Primary Care Provider Active Start: January 01, 2025 Dr. Saumya Bobo DO Admit Provider Active Start: January 01, 2025 Dr. Saumya Bobo DO Attending Provider Act [place] Start: January 01, 2025 Dr. Saumya Bobo DO Other Provider Active Start: January 01, 2025 Team Status: Active Member Role Status Dates Dr. Reagan Soto MD Primary Care Provider Active Start: January 03, 2025 End: January 03, 2025 Dr. Chun Coreas MD Attending Provider Activ e Start: January 03, 2025 End: January 03, 2025 Dr. Armando Garcia DO Referring Provider Active Start: January 03, 2025 End: January 03, 2025 Team Status: Active Member Role Status Dates Dr. Reagan Soto MD Primary Care Provider Active Start: January 03, 2025 Dr. Saumya Bobo DO Admit Provider Active Start: January 03, 2025 Dr. Teressa Sementi , DO Other Provider Active Start: January 03, 2025 Dr. Armando Garcia , DO Attending Provider Active Start: January 03, 2025 Team Status: Active Member Role Status Dates Dr. Reagan Soto MD Primary Care Provider Active Start: January 07, 2025 Dr. Saumya Bobo DO Admit Provider Active Start: January 07, 2025 Dr. Saumya Bobo DO Attending Provider Act [place] Start: January 07, 2025 Dr. Saumya Bobo , Other Provider Active Start: January 07, 2025 Team Status: Active Member Role Status Dates Dr. Reagan Soto MD Primary Care Provider Active Start: January 08, 2025 Dr. Saumya Bobo DO Admit Provider Active Start: January 08, 2025 Dr. Saumya Bobo DO Attending Provider Act [place] Start: January 08, 2025 Dr. Saumya Bobo DO Other Provider Active Start: January 08, 2025 Team Status: Active Member Role Status Dates Dr. Reagan Soto MD Primary Care Provider Active Start: January 10, 2025 Dr. Saumya Bobo DO Admit Provider Active Start: January 10, 2025 Dr. Saumya Bobo DO Attending Provider Act [place] Start: January 10, 2025 Dr. Saumya Bobo DO Other Provider Active Start: January 10, 2025 Team Status: Active Member Role Status Dates Dr. Reagan Soto MD Primary Care Provider Active Start: January 14, 2025 Dr. Saumya Bobo DO Admit Provider Active Start: January 14, 2025 Dr. Saumya Bobo DO Attending Provider Act [place] Start: January 14, 2025 Dr. Saumya Bobo DO Referring Provider Act [place] Start: January 14, 2025 Dr. Saumya Bobo DO Other Provider Active Start: January 14, 2025 Foot Tender Relationship Specialty Start Date End Date Reagan Soto MD [address] [place] [phone] PCP - General 12/06/19 Team Status: Active Member Role Status Dates Dr. Reagan Soto MD Primary Care Provider Active Start: January 14, 2025 Dr. Saumya Bobo DO Admit Provider Active Start: January 14, 2025 Dr. Saumya Bobo DO Attending Provider Act [place] Start: January 14, 2025 Dr. Saumya Bobo DO Other Provider Active Start: January 14, 2025 Team Status: Active Member Role Status Dates Dr. Reagan Soto MD Primary Care Provider Active Start: January 15, 2025 Dr. Saumya Bobo DO Admit Provider Active Start: January 15, 2025 Dr. Saumya Bobo DO Attending Provider Act [place] Start: January 15, 2025 Dr. Saumya Bobo DO Other Provider Active Start: January 15, 2025 Team Status: Inactive Member Role Status Dates Dr. Reagan Soto MD Primary Care Provider Active Start: February 01, 2025 End: February 01, 2025 Dr. Reagan Soto MD Referring Provider Active Start: February 01, 2025 End: February 01, 2025 Malinda Quevedo TIRE FABRIC IMPREGNATING RANGE TENDER, TIRE FABRIC IMPREGNATING RANGE TENDER-C Attending Provider Active Start: February 01, 2025 End: February 01, 2025 Team Status: Inactive Member Role Status Dates Dr. Reagan Soto MD Primary Care Provider Active Start: February 22, 2025 End: February 22, 2025 Dr. Reagan Soto MD Attending Provider Active Start: February 22, 2025 End: February 22, 2025 Dr. Reagan Soto MD Referring Provider Active Start: February 22, 2025 End: February 22, 2025 Foot Tender Relationship Specialty Start Date End Date Reagna Soto MD [address] [place] [phone] PCP - General 12/06/19 Team Status: Active Member Role/Relationship Status Dates Dr. Reagan Soto MD Primary Care Provider Active Team Status: Inactive Member Role/Relationship Status Dates Dr. Reagan Soto MD Primary Care Provider Active Start: December 24, 2024 End: January 15, 2025 Dr. Saumya Bobo DO Admit Provider Active Start: December 24, 2024 End: January 15, 2025 Dr. Saumya Bobo DO Attending Provider Act [place] Start: December 24, 2024 End: January 15, 2025 Dr. Saumya Bobo DO Referring Provider Act [place] Start: December 24, 2024 End: January 15, 2025 Team Status: Active Member Role/Relationship Status Dates Dr. Reagan Soto MD Primary Care Provider Active Start: December 31, 2024 Dr. Saumya Bobo DO Admit Provider Active Start: December 31, 2024 Dr. Saumya Bobo DO Attending Provider Act [place] Start: December 31, 2024 Dr. Saumya Bobo DO Other Provider Active Start: December 31, 2024 Team Status: Active Member Role/Relationship Status Dates Dr. Reagan Soto MD Primary Care Provider Active Start: January 01, 2025 Dr. Saumya Bobo DO Admit Provider Active Start: January 01, 2025 Dr. Saumya Bobo DO Attending Provider Act [place] Start: January 01, 2025 Dr. Saumya Bobo DO Other Provider Active Start: January 01, 2025 Team Status: Active Member Role/Relationship Status Dates Dr. Reagan Soto MD Primary Care Provider Active Start: January 03, 2025 End: January 03, 2025 Dr. Chun Coreas MD Attending Provider Activ e Start: January 03, 2025 End: January 03, 2025 Dr. Armando Garcia DO Referring Provider Active Start: January 03, 2025 End: January 03, 2025 Team Status: Active Member Role/Relationship Status Dates Dr. Reagan Soto MD Primary Care Provider Active Start: January 03, 2025 Dr. Saumya Bobo DO Admit Provider Active Start: January 03, 2025 Dr. Saumya Bobo DO Other Provider Active Start: January 03, 2025 Dr. Armando Garcia DO Attending Provider Active Start: January 03, 2025 Team Status: Active Member Role/Relationship Status Dates Dr. Reagan Soto MD Primary Care Provider Active Start: January 07, 2025 Dr. Teressa Sementi , DO Admit Provider Active Start: January 07, 2025 Dr. Saumya Bobo , DO Attending Provider Act [place] Start: January 07, 2025 Dr. Saumya Bobo , Other Provider Active Start: January 07, 2025 Team Status: Active Member Role/Relationship Status Dates Dr. Reagan Soto MD Primary Care Provider Active Start: January 08, 2025 Dr. Saumya Bobo DO Admit Provider Active Start: January 08, 2025 Dr. Saumya Bobo , DO Attending Provider Act [place] Start: January 08, 2025 Dr. Saumya Bobo , Other Provider Active Start: January 08, 2025 Team Status: Active Member Role/Relationship Status Dates Dr. Reagan Soto MD Primary Care Provider Active Start: January 10, 2025 Dr. Saumya Bobo DO Admit Provider Active Start: January 10, 2025 Dr. Saumya Bobo DO Attending Provider Act [place] Start: January 10, 2025 Dr. Saumya Bobo , Other Provider Active Start: January 10, 2025 Team Status: Active Member Role/Relationship Status Dates Dr. Reagan Soto MD Primary Care Provider Active Start: January 14, 2025 Dr. Saumya Bobo DO Admit Provider Active Start: January 14, 2025 Dr. Saumya Bobo , Attending Provider Act [place] Start: January 14, 2025 Dr. Saumya Bobo DO Other Provider Active Start: January 14, 2025 Team Status: Active Member Role/Relationship Status Dates Dr. Reagan Soto MD Primary Care Provider Active Start: January 15, 2025 Dr. Saumya Bobo DO Admit Provider Active Start: January 15, 2025 Dr. Saumya Bobo , DO Attending Provider Act [place] Start: January 15, 2025 Dr. Saumya Bobo , Other Provider Active Start: January 15, 2025 Team Status: Inactive Member Role/Relationship Status Dates Dr. Reagan Soto MD Primary Care Provider Active Start: February 01, 2025 End: February 01, 2025 Dr. Reagan Soto MD Referring Provider Active Start: February 01, 2025 End: February 01, 2025 Malinda Quevedo TIRE FABRIC IMPREGNATING RANGE TENDER, TIRE FABRIC IMPREGNATING RANGE TENDER-C Attending Provider Active Start: February 01, 2025 End: February 01, 2025 Team Status: Inactive Member Role/Relationship Status Dates Dr. Reagan Soto MD Primary Care Provider Active Start: February 22, 2025 End: February 22, 2025 Dr. Reagan Soto MD Attending Provider Active Start: February 22, 2025 End: February 22, 2025 Dr. Reagan Soto MD Referring Provider Active Start: February 22, 2025 End: February 22, 2025 Team Status: Active Member Role/Relationship Status Dates Dr. Reagan Soto MD Primary Care Provider Active Start: January 14, 2025 Dr. Saumya Bobo DO Admit Provider Active Start: January 14, 2025 Dr. Saumya Bobo DO Attending Provider Act [place] Start: January 14, 2025 Dr. Saumya Bobo DO Other Provider Active Start: January 14, 2025 Team Status: Active Member Role/Relationship Status Dates Dr. Reagan Soto MD Primary Care Provider Active Start: January 15, 2025 Dr. Saumya Bobo DO Admit Provider Active Start: January 15, 2025 Dr. Saumya Bobo DO Attending Provider Act [place] Start: January 15, 2025 Dr. Saumya Bobo DO Other Provider Active Start: January 15, 2025 Team Status: Inactive Member Role/Relationship Status Dates Dr. Reagan Soto MD Primary Care Provider Active Start: February 01, 2025 End: February 01, 2025 Dr. Reagan Soto MD Referring Provider Active Start: February 01, 2025 End: February 01, 2025 Malinda Quevedo NP, TIRE FABRIC IMPREGNATING RANGE TENDER-C Attending Provider Active Start: February 01, 2025 End: February 01, 2025 Team Status: Inactive Member Role/Relationship Status Dates Dr. Reagan Soto MD Primary Care Provider Active Start: February 22, 2025 End: February 22, 2025 Dr. Reagan Soto MD Attending Provider Active Start: February 22, 2025 End: February 22, 2025 Dr. Reagan Soto MD Referring Provider Active Start: February 22, 2025 End: February 22, 2025 Team Status: Inactive Member Role/Relationship Status Dates Dr. Reagan Soto MD Primary Care Provider Active Start: May 08, 2025 End: May 08, 2025 Dr. Karen Medina MD Attending Provider Active Start: May 08, 2025 End: May 08, 2025 Dr. Karen Medina MD Referring Provider Active Start: May 08, 2025 End: May 08, 2025 Team Status: Inactive Member Role/Relationship Status Dates Dr. Reagan Soto MD Primary Care Provider Active Start: May 08, 2025 End: May 08, 2025 Dr. Karen Medina MD Attending Provider Active Start: May 08, 2025 End: May 08, 2025 Dr. Karen Medina MD Referring Provider Active Start: May 08, 2025 End: May 08, 2025 Team Status: Inactive Member Role/Relationship Status Dates Dr. Reagan Soto MD Primary Care Provider Active Start: June 19, 2025 End: June 19, 2025 Dr. Reagan Soto MD Attending Provider Active Start: June 19, 2025 End: June 19, 2025 Dr. Reagan Soto MD Referring Provider Active Start: June 19, 2025 End: June 19, 2025 Team Status: Active Member Role/Relationship Status Dates Dr. Reagan Soto MD Primary Care Provider Active Start: July 01, 2025 Dr. Reagan Soto MD Attending Provider Active Start: July 01, 2025 Team Status: Active Member Role/Relationship Status Dates Dr. Reagan Soto MD Primary care physician Active Team Status: Inactive Member Role/Relationship Status Dates Dr. Reagan Soto MD Primary care physician Active Start: May 08, 2025 End: May 08, 2025 Dr. Karen Medina MD Attending physician Active Start: May 08, 2025 End: May 08, 2025 Dr. Karen Medina MD Referring Provider Active Start: May 08, 2025 End: May 08, 2025 Team Status: Inactive Member Role/Relationship Status Dates Dr. Reagan Soto MD Primary care physician Active Start: June 19, 2025 End: June 19, 2025 Dr. Reagan Soto MD Attending physician Active Start: June 19, 2025 End: June 19, 2025 Dr. Reagan Soto MD Referring Provider Active Start: June 19, 2025 End: June 19, 2025 Team Status: Inactive Member Role/Relationship Status Dates Dr. Reagan Soto MD Primary care physician Active Start: August 07, 2025 End: August 07, 2025 Dr. Reagan Soto MD Attending physician Active Start: August 07, 2025 End: August 07, 2025 (unrecognized sect ion and content) No Status Records FoundNo Status Records FoundNo Status Records FoundNo Status Records FoundNo Status Records FoundNo Status Records Found INFORMATION SOURCE (unrecogn ized section and content) DATE CREATED AUTHOR 03/01/2022 [facility] DATE CREATED AUTHOR AUTHOR'S ORGANIZ ATION 08/23/2022 [facility] DATE CREATED AUTHOR AUTHOR'S ORGANIZ ATION 09/01/2022 [facility] DATE CREATED AUTHOR AUTHOR'S ORGANIZ ATION 06/13/2025 [facility] DATE CREATED AUTHOR AUTHOR'S ORGANIZ ATION 07/26/2025 [facility] DATE CREATED AUTHOR AUTHOR'S ORGANIZ ATION 08/09/2025 [facility] Source Comments (unrecognize d section and content) In the event this informatio n is protected by the Federal Confidentiality of Alcohol and Drug Abuse Patient Records regulations: The Federal rules restrict any use of the information to criminally investigate or prosecute any alcohol or drug abuse patient.[facility] the event this information is protected by the Federal Confidentiality of Alcohol and Drug Abuse Patient Records regulations: The Federal rules restrict any use of the information to criminally investigate or prosecute any alcohol or drug abuse patient.[facility] the event this information is protected by the Federal Confidentiality of Alcohol and Drug Abuse Patient Records regulations: The Federal rules restrict any use of the information to criminally investigate or prosecute any alcohol or drug abuse patient.[facility] the event this information is protected by the Federal Confidentiality of Alcohol and Drug Abuse Patient Records regulations: The Federal rules restrict any use of the information to criminally investigate or prosecute any alcohol or drug abuse patient.[facility] the event this information is protected by the Federal Confidentiality of Alcohol and Drug Abuse Patient Records regulations: The Federal rules restrict any use of the information to criminally investigate or prosecute any alcohol or drug abuse patient.[facility]In the event this information is protected by the Federal Confidentiality of Alcohol and Drug Abuse Patient Records regulations: The Federal rules restrict any use of the information to criminally investigate or prosecute any alcohol or drug abuse patient.[facility]In the event this information is protected by the Federal Confidentiality of Alcohol and Drug Abuse Patient Records regulations: The Federal rules restrict any use of the information to criminally investigate or prosecute any alcohol or drug abuse patient.[facility]In the event this information is protected by the Federal Confidentiality of Alcohol and Drug Abuse Patient Records regulations: The Federal rules restrict any use of the information to criminally investigate or prosecute any alcohol or drug abuse patient.[facility]In the event this information is protected by the Federal Confidentiality of Alcohol and Drug Abuse Patient Records regulations: The Federal rules restrict any use of the information to criminally investigate or prosecute any alcohol or drug abuse patient.[facility] the event this information is protected by the Federal Confidentiality of Alcohol and Drug Abuse Patient Records regulations: The Federal rules restrict any use of the information to criminally investigate or prosecute any alcohol or drug abuse patient.[facility]In the event this information is protected by the Federal Confidentiality of Alcohol and Drug Abuse Patient Records regulations: The Federal rules restrict any use of the information to criminally investigate or prosecute any alcohol or drug abuse patient.[facility]In the event this information is protected by the Federal Confidentiality of Alcohol and Drug Abuse Patient Records regulations: The Federal rules restrict any use of the information to criminally investigate or prosecute any alcohol or drug abuse patient.[facility]In the event this information is protected by the Federal Confidentiality of Alcohol and Drug Abuse Patient Records regulations: The Federal rules restrict any use of the information to criminally investigate or prosecute any alcohol or drug abuse patient.[facility]In the event this information is protected by the Federal Confidentiality of Alcohol and Drug Abuse Patient Records regulations: The Federal rules restrict any use of the information to criminally investigate or prosecute any alcohol or drug abuse patient.[facility]In the event this information is protected by the Federal Confidentiality of Alcohol and Drug Abuse Patient Records regulations: The Federal rules restrict any use of the information to criminally investigate or prosecute any alcohol or drug abuse patient.[facility] Reason for Visit (unrecogniz ed section and content) Reason Comments 3 Month Follow Up Reason Onset Date Comments Other 09/08/2023 PLAY THERAPIST remote Reason Comments 6 Month Follow-up Reason Comments Med Refill Reason Onset Date Comments Results 04/25/2024 PLAY THERAPIST-D remote last remote request 04/25/2024 Reason Onset Date Comments Other 09/29/2022 ICD remote reque sted Reason Onset Date Comments OTHER 12/27/2022 Reason Onset Date Comments Med Refill 11/02/2024 amiodarone (Pace susan) 200 MG tablet 1 tab q24H Reason Comments Established Patient Reason Comments Annual Exam Reason Comments Established Patient FOR RECORDS PERTAINING TO PATIENTS WHO ARE [...] BE BASED ON THE PRIMARY CLINICAL RECORDS. [facility]. provides no warranty or guarantee of the accuracy or completeness of information in this document.
[2025-09-27 17:53] LABS: Hematocrit 44.4 % (40-54); Hemoglobin 14.7 g/dL (13.0-16.5); Immature Granulocytes Count 0.030 X10^3/uL (0.0-0.0); Mean Corp Hgb Conc 33.1 g/dL (32-36); Mean Corpuscular Volume 95.7 fL (80-94); Mean Platelet Vol. 11.0 fl (6.2-12.0); NRBC Flagged by Analyzer 0 % (0-5); Platelet Count 188 K/mm3 (150-450); RBC Distribution Width CV 14.0 % (11.6-14.6); RBC Distribution Width SD 49.5 fl (35.1-43.9); Red Blood Count 4.64 M/mm3 (4.6-6.2); White Blood Count 9.0 K/mm3 (4.4-11.0)
[2025-09-27 17:58] LABS: AST(SGOT) 14 U/L (<=37); Alanine Aminotransfer ALT/SGPT 16 U/L (<=46); Albumin, Serum 3.9 g/dL (3.4-4.8); Alkaline Phosphatase 81 U/L (40-129); Anion Gap 8 (5-15); BUN 20 mg/dL (4-19); BUN/Creat Ratio 27.9 RATIO (10-20); Calcium,Total 9.3 mg/dL (7.6-11.0); Carbon Dioxide 26.1 mmol/L (21.0-32.0); Chloride 107 mmol/L (98-108); Globulin 2.7 g/dL (2.2-4.2); Glucose 107 mg/dL (70-99); Potassium 4.4 mmol/L (3.3-5.1)
[2025-09-27 19:10] LABS: Cholesterol 132 mg/dL (<=200); Low Density Lipoprotein Calc. 71 mg/dL; Triglycerides 51 mg/dL; Very Low Density Lipoprotein 10 mg/dL (5-40); cholesterol:hdl ratio screen 2.69
[2025-09-27 20:13] LABS: Color, Urine Yellow (Yellow); Glucose, Dipstick 1000 mg/dl (Normal); Ketone-Dipstick Negative (Negative); Leukocyte Esterase-Dipstick Negative /ul (Negative); Nitrite-Dipstick Negative (Negative); Occult Blood-Urine 10 /ul (Negative); Protein-Dipstick 15 mg/dl (Negative); Specific Gravity, Urine 1.015 (1.002-1.030); Urine Bilirubin Dipstick Negative (Negative)
[2025-09-27 20:50] LABS: Squamous Epithelial Cells - UA 0-5 SEEN /hpf (0-5)
== END | disposition home or self-care (01) ==
LOC: MFPLAB 16:17
PROVIDERS: PCP Family Medicine; Visit Provider Family Medicine
DX: I25.10 Atherosclerotic heart disease of native coronary artery without angina pectoris (principal); E11.69 Type 2 diabetes mellitus with other specified complication
CPT/HCPCS: 36415; 80053; 80061; 81001; 83036; 85025